=== PATIENT | male | born 1930 | race Hispanic/Latino ===

== ENCOUNTER → 2017-09-05 12:31 | Inpatient (IN) | payer MEDICARE ==
[2015-07-10 14:36] LABS: BASO # 0.1 K/uL (0.0-0.2); BASO % 1.3 % (0.0-2.0); EOS # 0.5 K/uL (0.0-0.7); EOS % 6.9 % (0.0-4.0); HEMOGLOBIN 12.9 g/dL (12.0-18.0); LYMPH # 1.3 K/uL (1.0-4.3); LYMPH % 19.1 % (20.0-40.0); MEAN CELL VOLUME 93.6 fl (80.0-94.0); MEAN CORPUSCULAR HEMOGLOBIN 30.3 pg (27.0-31.0); MEAN CORPUSCULAR HGB CONC 32.4 g/dL (33.0-37.0); MONO # 0.5 K/uL (0.0-0.8); MONO % 7.1 % (0.0-10.0); NEUT # 4.4 K/uL (1.8-7.0); NEUT % 65.6 % (50.0-75.0); RBC 4.24 Mil/uL (4.40-5.90); RED CELL DISTRIBUTION WIDTH 13.2 % (11.5-14.5); WHITE BLOOD COUNT 6.7 K/uL (4.8-10.8)
[2015-07-10 14:46] LABS: ALB/GLOB RATIO 1.5 (1.0-2.1); ALT/SGPT 11 U/L (21-72); AST/SGOT 24 U/L (17-59); BLOOD UREA NITROGEN 39 mg/dl (9-20); CALCIUM 9.2 mg/dL (8.4-10.2); GFR AFRICAN-AMERICAN > 60; GFR NON-AFRICAN AMERICAN > 60
--- NOTE | 2015-07-10 15:08 | CT ---
PROCEDURE: CT Pelvis without contrast HISTORY: Fall, pelvic pain COMPARISON: Imaged pelvis on CT abdomen and pelvis performed 08/17/14 TECHNIQUE: Contiguous axial images of the pelvis . No intravenous or oral contrast given. Coronal and sagittal reformats generated. Radiation dose: Total exam DLP = 631.26 mGy-cm. FINDINGS: BLADDER: Underdistention of the urinary bladder limits evaluation. Suspect right superior urinary bladder diverticulum. REPRODUCTIVE ORGANS: Enlarged heterogeneous prostate gland contains calcification and measures up to 6.0 x 5.3 cm. VISUALIZED BOWEL: Lack of oral contrast limits evaluation for bowel pathology. Diverticulosis without CT evidence of acute diverticulitis. PERITONEUM: No definite free air. No significant free fluid. LYMPH NODES: No bulky lymphadenopathy appreciated. BONES: No acute displaced fracture or dislocation. Degenerative changes. VASCULATURE: Atherosclerotic calcifications of the aorta. OTHER FINDINGS: Bilateral fat containing inguinal hernias. IMPRESSION: Osseous demineralization. Degenerative changes. No acute displaced fracture or dislocation evident. Bilateral fat containing inguinal hernias. Heterogeneous enlarged prostate gland. Recommend correlation with PSA and KATIE. Suspect right superior urinary bladder diverticulum. Underdistention of the urinary bladder limits evaluation.
--- NOTE | 2015-07-10 15:43 | CT ---
PROCEDURE: CT HEAD WITHOUT CONTRAST. HISTORY: r/o ICH COMPARISON: Noncontrast head CT performed 01/14/15 TECHNIQUE: Axial computed tomography images were obtained through the head/brain without intravenous contrast. Radiation dose: Total exam DLP = 1158.58 mGy-cm. FINDINGS: HEMORRHAGE: No intracranial hemorrhage. BRAIN: Diffuse atrophy with prominence of the ventricles and sulci noted. No mass effect or edema. Scattered periventricular and subcortical white matter hypodensities, which are nonspecific, but often seen with chronic microvascular ischemic disease. Please note that MRI with diffusion imaging is more sensitive in the detection of acute ischemic event. VENTRICLES: No hydrocephalus. CALVARIUM: Unremarkable. PARANASAL SINUSES: Unremarkable as visualized. No significant inflammatory changes. MASTOID AIR CELLS: Unremarkable as visualized. No inflammatory changes. OTHER FINDINGS: None. IMPRESSION: Mild nonspecific white matter changes as above. Generalized atrophy.
--- NOTE | 2015-07-10 15:48 | CT ---
PROCEDURE: CT Cervical Spine without contrast HISTORY: Trauma, rule out fracture COMPARISON: CT cervical spine performed 08/17/14 TECHNIQUE: Axial computed tomography images were obtained of the cervical spine without the use of intravenous contrast. Coronal and sagittal reformatted images were created and reviewed. Radiation dose: Total exam DLP = 464.40 mGy-cm. FINDINGS: VERTEBRAE: Osseous demineralization limits evaluation for acute fracture lines. Straightening of the normal cervical lordosis may be related to muscle spasm or positioning. No acute fracture or subluxation evident. Multilevel degenerative changes including intervertebral disc space narrowing and osteophyte formation. Facet hypertrophy. DISCS/SPINAL CANAL/NEURAL FORAMINA: No significant central canal stenosis. Intervertebral disc space narrowing. PARASPINAL SOFT TISSUES: Unremarkable. OTHER FINDINGS: None. IMPRESSION: Osseous demineralization. Multilevel degenerative changes. No acute fracture or subluxation appreciated. Straightening of the normal cervical lordosis may be related to muscle spasm or positioning.
--- NOTE | 2015-07-10 16:10 | ED PDOC ---
HPI: Trauma/Fall - HPI Time Seen by Provider: 07/10/15 14:02 Chief Complaint (Nursing): Trauma Chief Complaint (Provider): Fall History Per: Patient History/Exam Limitations: no limitations, physical impairment (confusion) Onset/Duration Of Symptoms: Hrs Injury Occurred (Timing): Days Ago: (1) Location Of Injury: Right: Back, Hip, Shoulder Severity: Mild Associated Symptoms: Dizziness Additional Complaint(s): Patient is a 85 year old male with a history of now advancing Parkinson disease , reports that he fallen yesterday after an episode of dizziness. Patient denies LOC but states he had a hard time getting up and was on the floor for 2 hours. Today had right sided pain including shoulder, hip and lower back. Denies chest pain, fever, cough, SOB, or other injury. D/w family Syl, has frequent falls, found on floor this as well, has some home-care but not 24hrs, alone during night. - Fall Fall:Prior To Injury: Almost Passed Out, [place] Lightheaded, Lost Balance Past Medical History Reviewed: Historical Data, Nursing Documentation, Vital Signs Vital Signs: Last Vital Signs Temp Pulse 96 H 07/10/15 13:43 Resp 16 07/10/15 13:43 BP 172/91 H 07/10/15 13:43 Pulse Ox 97 07/10/15 13:43 - Medical History PMH: Anxiety, Arthritis, Atrial Fibrillation, Depression, HTN, Parkinson's Disease, Rheumatoid Arthritis - Surgical History Surgical History: Appendectomy, Tonsillectomy Denies: CABG, Carotid Endarterectomy, Cholecystectomy, Coronary Stent, Pacemaker - Family History Family History: States: No Known Family Hx - Living Arrangements Living Arrangements: Alone - Home Medications Home Medications: Ambulatory Orders Medication Instructions Recorded Donepezil Hydrochloride [Aricept] 10 mg PO HS #0 tab 01/27/15 Gabapentin [Neurontin] 600 mg PO TID #0 tab 01/27/15 Midodrine [Proamatine] 5 mg PO TID #0 tab 05/25/15 Carbidopa/Levodopa [Rytary 48.75 3 cap PO TID 07/10/15 mg-195 mg] QUEtiapine [SEROquel] 50 mg PO HS PRN 07/10/15 - Allergies Allergies/Adverse Reactions: Allergies Allergy/AdvReac Type Severity Reaction Status Date / Time Penicillin Allergy HIVES Verified 07/10/15 13:43 Review of Systems ROS Statement: Except As Marked, All Systems Reviewed And Found Negative Constitutional: Negative for: Fever Cardiovascular: Negative for: Chest Pain Respiratory: Negative for: Cough, Shortness of Breath Musculoskeletal: Positive for: Shoulder Pain, Back Pain, Other (hip pain) Neurological: Negative for: Weakness, Numbness, Altered Mental Status Physical Exam - Reviewed Nursing Documentation Reviewed: Yes Vital Signs Reviewed: Yes - Physical Exam Appears: Positive for: Well, Non-toxic (baseline mental status), No Acute Distress Head Exam: Positive for: ATRAUMATIC, NORMAL INSPECTION, NORMOCEPHALIC Skin: Positive for: Normal Color, Warm, DRY Eye Exam: Positive for: EOMI, Normal appearance, PERRL ENT: Positive for: Normal ENT Inspection Neck: Positive for: Normal, Painless ROM Cardiovascular/Chest: Positive for: Regular Rate, Rhythm Respiratory: Positive for: CNT, Normal Breath Sounds Gastrointestinal/Abdominal: Positive for: Normal Exam, Bowel Sounds, Soft Back: Positive for: Normal Inspection, Other (mild lower back tenderness (-) deformity) Rectal: Positive for: Deferred Extremity: Positive for: Normal ROM, Tenderness (right shoudler (+) painful ROM (-) swelling (-) deformity. Right hip (+)painful rom (-) swelling (-) deformity ), Other ((+) small abrasion to right knww with mild ene but full ROM) Neurologic/Psych: Positive for: Alert, Oriented, Motor/Sensory Deficits ( generalized but R>L weakness and slowing\), Cerebellar Tests (slow, parkinsonian ), Gait (unstable), Other (parkinsonian features with bradykinesia, rigidity, unable to ambulate with stability, resting tremor) - Laboratory Results Result Diagrams: 07/10/15 14:26 07/10/15 14:26 - ECG O2 Sat by Pulse Oximetry: 97 (room air) Pulse Ox Interpretation: Normal - Progress ED Course And Treament: Time:14:00 Initial impression: Fall Initial plan: -- CT-neck, head and pelvis -- EKG -- CMP -- Troponin -- Total creatine -- EKG -- CBC -- Knee 3 views -- Motrin 600mg PO -- Tylenol 650mg PO -- Shoulder xray -- U/A 14:50: Patient reports continued pain. Plan: -- Tylenol 650mg PO Labs reviewed: CPK noted to be elevated but no clinic significance at this time. Time: 15:45 CT- head reviewed: Field Marketing Team Leader : Litzy Horowitz MD Report Date : 07/10/2015 15:42:33 PROCEDURE: CT HEAD WITHOUT CONTRAST. HISTORY: r/o ICH COMPARISON: Noncontrast head CT performed 01/14/15 TECHNIQUE: Axial computed tomography images were obtained through the head/brain without intravenous contrast. Radiation dose: Total exam DLP = 1158.58 mGy-cm. FINDINGS: HEMORRHAGE: No intracranial hemorrhage. BRAIN: Diffuse atrophy with prominence of the ventricles and sulci noted. No mass effect or edema. Scattered periventricular and subcortical white matter hypodensities, which are nonspecific, but often seen with chronic microvascular ischemic disease. Please note that MRI with diffusion imaging is more sensitive in the detection of acute ischemic event. VENTRICLES: No hydrocephalus. CALVARIUM: Unremarkable. PARANASAL SINUSES: Unremarkable as visualized. No significant inflammatory changes. MASTOID AIR CELLS: Unremarkable as visualized. No inflammatory changes. OTHER FINDINGS: None. IMPRESSION: Mild nonspecific white matter changes as above. Generalized atrophy. Time: 15:50 CT-neck results reviewed: Dictated by: Litzy Horowitz MD Report Date : 07/10/2015 15:48:40 PROCEDURE: CT Cervical Spine without contrast HISTORY: Trauma, rule out fracture COMPARISON: CT cervical spine performed 08/17/14 TECHNIQUE: Axial computed tomography images were obtained of the cervical spine without the use of intravenous contrast. Coronal and sagittal reformatted images were created and reviewed. Radiation dose: Total exam DLP = 464.40 mGy-cm. FINDINGS: VERTEBRAE: Osseous demineralization limits evaluation for acute fracture lines. Straightening of the normal cervical lordosis may be related to muscle spasm or positioning. No acute fracture or subluxation evident. Multilevel degenerative changes including intervertebral disc space narrowing and osteophyte formation. Facet hypertrophy. DISCS/SPINAL CANAL/NEURAL FORAMINA: No significant central canal stenosis. Intervertebral disc space narrowing. PARASPINAL SOFT TISSUES: Unremarkable. OTHER FINDINGS: None. IMPRESSION: Osseous demineralization. Multilevel degenerative changes. No acute fracture or subluxation appreciated. Straightening of the normal cervical lordosis may be related to muscle spasm or positioning. Time: 15:10 CT-hip and pelvis reviewed: Dictated by: Litzy Horowitz MD Report Date : 07/10/2015 15:07:45 PROCEDURE: CT Pelvis without contrast HISTORY: Fall, pelvic pain COMPARISON: Imaged pelvis on CT abdomen and pelvis performed 08/17/14 TECHNIQUE: Contiguous axial images of the pelvis . No intravenous or oral contrast given. Coronal and sagittal reformats generated. Radiation dose: Total exam DLP = 631.26 mGy-cm. FINDINGS: BLADDER: Underdistention of the urinary bladder limits evaluation. Suspect right superior urinary bladder diverticulum. REPRODUCTIVE ORGANS: Enlarged heterogeneous prostate gland contains calcification and measures up to 6.0 x 5.3 cm. VISUALIZED BOWEL: Lack of oral contrast limits evaluation for bowel pathology. Diverticulosis without CT evidence of acute diverticulitis. PERITONEUM: No definite free air. No significant free fluid. LYMPH NODES: No bulky lymphadenopathy appreciated. BONES: No acute displaced fracture or dislocation. Degenerative changes. VASCULATURE: Atherosclerotic calcifications of the aorta. OTHER FINDINGS: Bilateral fat containing inguinal hernias. IMPRESSION: Osseous demineralization. Degenerative changes. No acute displaced fracture or dislocation evident. Bilateral fat containing inguinal hernias. Heterogeneous enlarged prostate gland. Recommend correlation with PSA and KATIE. Suspect right superior urinary bladder diverticulum. Underdistention of the urinary bladder limits evaluation. Scribe Attestation: Documented by Jyotsna Monteiro, acting as a scribe for Anthony Brooks DO. Provider Scribe Attestation: All medical record entries made by the Scribe were at my direction and personally dictated by me. I have reviewed the chart and agree that the record accurately reflects my personal performance of the history, physical exam, medical decision making, and the department course for this patient. I have also personally directed, reviewed, and agree with the discharge instructions and disposition. Medical Decision Making Medical Decision Making: Patient with advancing parkinsons features, unable to live alone, d/w Dr Vega neuro covering Dr Rosas and Dr Fernández PMD, to place Obs med surg for optimization and potential NH placement if family agreeable. Patient is mildly confused with poor insight, unable to ambulate with very high risk for falls given lack of 24hr care. Disposition - Clinical Impression Clinical Impression: Shoulder sprain, Fall, Knee abrasion, Contusion, hip, Parkinson disease, symptomatic, Back pain - Patient ED Disposition Is Patient to be Admitted: Yes Discussed With : Kevin Vega Comment: Dr Rosas to consult Doctor Will See Patient In The: Hospital Counseled Patient/Family Regarding: Studies Performed, Diagnosis - Disposition Disposition Time: 17:05 Condition: STABLE - POA Present On Arrival: Falls Or Trauma 24hr care. Disposition - Clinical Impression Clinical Impression: Shoulder sprain, Fall, Knee abrasion, Contusion, hip, Parkinson disease, symptomatic, Back pain - Patient ED Disposition Is Patient to be Admitted: Yes Discussed With : Kevin Vega Comment: Dr Rosas to consult Doctor Will See Patient In The: Hospital Counseled Patient/Family Regarding: Studies Performed, Diagnosis - Disposition Referrals: Rick Cornejo MD [Staff Provider] - Disposition Time: 17:05 Condition: STABLE Additional Instructions: See Dr Fernández for further testing and continued care. Return to ER for any new or change in symptoms. Take pain medications as necessary. Prescriptions: traMADol [Ultram] 50 mg PO TID PRN #12 tab PRN Reason: Pain, Moderate (4-7) Instructions: Fall Prevention for Older Adults (ED), Acute Low Back Pain (ED), Contusion in Adults (ED), Shoulder Sprain (ED) - POA Present On Arrival: Falls Or Trauma
--- NOTE | 2015-07-10 16:36 | RAD ---
Three views, right shoulder Comparison: Right shoulder x-ray performed 05/22/15 Indication: Fall onto right shoulder Findings: Examination limited by patient positioning; best possible images obtained. Osseous demineralization limits evaluation for acute fracture lines. No acute displaced fracture or dislocation evident. Degenerative changes. High-riding right humeral head may be seen in setting of chronic rotator cuff injury. Acromioclavicular arthropathy. Soft tissues appear grossly unremarkable. Impression: Osseous demineralization. Degenerative changes including evidence of chronic rotator cuff injury. No acute displaced fracture or dislocation evident. If symptoms persist or if there is continued clinical concern, x-ray follow-up in 7-10 days should be considered.
[2015-07-10 16:39] LABS: URINE APPEARANCE SL CLOUDY (CLEAR); URINE COLOR YELLOW (YELLOW)
[2015-07-10 16:40] LABS: URINE BILIRUBIN NEGATIVE (NEGATIVE); URINE BLOOD NEGATIVE (NEGATIVE); URINE GLUCOSE (UA) NEGATIVE (Normal); URINE LEUKOCYTE ESTERASE NEGATIVE Leu/uL (NEGATIVE); URINE NITRATE NEGATIVE (NEGATIVE); URINE PROTEIN 30 mg/dL (NEGATIVE); URINE UROBILINOGEN 0.2 EU/dL (0.0-0.2)
[2015-07-10 16:55] LABS: URINE BACTERIA FEW (NEG); URINE RBC NEGATIVE /hpf (0-2)
--- NOTE | 2015-07-10 19:19 | RAD ---
PROCEDURE: Right Knee Radiographs. HISTORY: fall R knee pain COMPARISON: X-ray 11/15/2014 FINDINGS: There is a large suprapatellar joint effusion. The quadriceps tendon distally is not well-visualized and may be severely abnormal. There is diffuse edema around the patient's knee prosthesis. There is no patella [place]. Multiple calcifications are seen in the infrapatellar and suprapatellar joint space which are concerning for particle disease. There is extensive productive change at the insertion of the patellar tendon. The patient's hardware appears intact however there is valgus orientation of the tibial component with lucency seen around the cemented tibial portion. These findings may represent a combination of loosening and particle disease. There is no definitive fracture. IMPRESSION: No large displaced fracture. 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
--- NOTE | 2015-07-11 09:28 | CARD ---
APPROVED REPORT EKG Measurement Heart [id number] <Conclusion> Sinus rhythm with marked sinus arrhythmia with fusion complexes Right atrial enlargement Left ventricular hypertrophy with QRS widening Abnormal ECG
--- NOTE | 2015-07-11 10:46 | CP.PCM.CON ---
History of Present Illness - History of Present Illness History of Present Illness: Patient is an 85 year old gentleman presently admitted with Dx of Parkinson's Disease with fall and back injury. Neurological consultation is requested to evaluate patient for the same. Patient is very well-known to me with history of atypical Parkinson's Disease (Shy-Drager Syndrome). Yesterday, he apparently fell after feeling dizzy and was unable to get up from the floor. Recently, he has been on steadily increasing doses of Rytary which so far has been effective in helping with ambulation and reducing motor fluctuations and freezing events. Because of the Shy Drager syndrome, he does become significantly orthostatic resulting in lightheadedness, near syncope, and falls. Midodrine is being used for this symptom. Past Patient History - Tetanus Immunizations Tetanus Immunization: Unknown - Past Medical History & Family History Past Medical History?: Yes - Past Social History Smoking Status: Never Smoked - CARDIAC Hx Atrial Fibrillation: Yes Hx Hypertension: Yes Hx Pacemaker: No - PULMONARY Hx Asthma: No Hx Bronchitis: No Hx Chronic Obstructive Pulmonary Disease (COPD): No Hx Emphysema: No Hx Pneumonia: No Hx Pulmonary Embolism: No Hx Sleep Apnea: No - NEUROLOGICAL Hx Parkinson's Disease: Yes - HEENT Hx HEENT Problems: Yes Hx Cataracts: No Hx Deafness: No Hx Difficulty Chewing: No Hx Epistaxis: No Hx Glaucoma: Yes Hx Macular Degeneration: No - RENAL Hx Chronic Kidney Disease: No - ENDOCRINE/METABOLIC Hx Hyperthyroidism: No Hx Hypothyroidism: No - HEMATOLOGICAL/ONCOLOGICAL Hx Anemia: No Hx Human Immunodeficiency Virus (HIV): No Hx Sickle Cell Disease: No - INTEGUMENTARY Hx Dermatological Problems: No Hx Basil Cell: No Hx Silva: No Hx Cellulitis: Yes (right leg) Hx Eczema: No Hx Melanoma: No Hx Psoriasis: No Hx Squamous Cell: No - MUSCULOSKELETAL/RHEUMATOLOGICAL Hx Arthritis: Yes Hx Falls: Yes Hx Rheumatoid Arthritis: Yes - GASTROINTESTINAL Hx Crohn's Disease: No Hx Diverticulitis: No Hx Gall Bladder Disease: No Hx Gastritis: No Hx Pancreatitis: No - GENITOURINARY/GYNECOLOGICAL Hx Sexually Transmitted Disorders: No - PSYCHIATRIC Hx Anxiety: Yes Hx Depression: Yes Hx Substance Use: No - SURGICAL HISTORY Hx Appendectomy: Yes Hx Carotid Endarterectomy: No Hx Cholecystectomy: No Hx Coronary Artery Bypass Graft: No Hx Coronary Stent: No Hx Tonsillectomy: Yes - ANESTHESIA Hx Anesthesia: Yes Hx Anesthesia Reactions: No Hx Malignant Hyperthermia: No Meds Allergies/Adverse Reactions: Allergies Allergy/AdvReac Type Severity Reaction Status Date / Time Penicillin Allergy HIVES Verified 07/10/15 13:43 - Medications Medications: Current Medications Donepezil HCl (Aricept) 10 mg PO HS [facility] Last Admin: 07/11/15 02:00 Dose: 10 mg Enoxaparin Sodium (Lovenox) 40 mg SC DAILY [facility] Gabapentin (Neurontin) 600 mg PO TID [facility] Home Med (Carbidopa/Levodopa [Rytary 48.75 Mg-195 Mg]) 3 cap PO TID [facility] Sodium Chloride (Sodium Chloride 0.45%) 1,000 mls @ 50 mls/hr IV .Q20H TU Stop: 07/12/15 10:13 Midodrine (Proamatine) 5 mg PO TID TU Quetiapine Fumarate (Seroquel) 50 mg PO HS PRN PRN Reason: Insomnia Tramadol HCl (Ultram) 50 mg PO Q6 PRN PRN Reason: Pain, moderate (4-7) Last Admin: 07/11/15 05:57 Dose: 50 mg Physical Exam - Expanded Neurological Exam Expanded Patient oriented to: person, place, time Speech: Fluid Speech Cranial nerves: EOM's Intact: Normal, Facial Palsey w/Forehead Movement: Normal , Facial Palsey w/o Forehead Movement: Normal, Facial Sensation: Normal, Gag Reflex: Normal, Nystagmus: Normal, Tongue Deviation: Normal Ataxia: (bradykinetic gait) Cerebellar Function: Finger to Nose: Normal, Heel to Dias: Normal, Romberg: Normal Upper motor neuron: Babinski Sign: Normal, [place] Neglect: Normal, Pronator Drift : Normal, Sensory Extinction: Normal Sensory exam: Lower Extremity 2 Point Discrimination: Normal, Lower Extremity Light Touch: Normal, Lower Extremity Pin Prick: Normal, Lower Extremity Temperature: Normal, Upper Extremity 2 Point Discrimination: Normal, Upper Extremity Light Touch: Normal, Upper Extremity Pin Prick: Normal, Upper Extremity Temperature: Normal Neuro motor strength exam: Left Upper Extremity: 4, Right Upper Extremity: 4, Left Lower Extremity: 4, Right Lower Extremity: 4 DTR: Achilles Tendon Left: 2+, Achilles Tendon Right: 2+, Bicep Left: 2+, Bicep Right: 2+, Brachioradialis Left: 2+, Brachioradialis Right: 2+, Patellar Left: 2 +, Patellar Right: 2+, Tricep Left: 2+, Tricep Right: 2+ Coma Scale Eye Opening: SPONTANEOUS Coma Scale Motor Response: OBEYS COMMANDS Coma Scale Verbal: Oriented Coma Scale Total: 15 Results - Vital Signs Recent Vital Signs: Last Vital Signs Temp 98.1 F 07/11/15 07:30 Pulse 101 H 07/11/15 07:30 Resp 20 07/11/15 07:30 BP 133/84 07/11/15 07:30 Pulse Ox 98 07/11/15 07:30 - Labs Result Diagrams: 07/10/15 14:26 07/10/15 14:26 - Impressions Impression: PROCEDURE: CT HEAD WITHOUT CONTRAST. HISTORY: r/o ICH COMPARISON: Noncontrast head CT performed 01/14/15 TECHNIQUE: Axial computed tomography images were obtained through the head/brain without intravenous contrast. Radiation dose: Total exam DLP = 1158.58 mGy-cm. FINDINGS: HEMORRHAGE: No intracranial hemorrhage. BRAIN: Diffuse atrophy with prominence of the ventricles and sulci noted. No mass effect or edema. Scattered periventricular and subcortical white matter hypodensities, which are nonspecific, but often seen with chronic microvascular ischemic disease. Please note that MRI with diffusion imaging is more sensitive in the detection of acute ischemic event. VENTRICLES: No hydrocephalus. CALVARIUM: Unremarkable. PARANASAL SINUSES: Unremarkable as visualized. No significant inflammatory changes. MASTOID AIR CELLS: Unremarkable as visualized. No inflammatory changes. OTHER FINDINGS: None. IMPRESSION: Mild nonspecific white matter changes as above. Generalized atrophy. Assessment/Plan - Assessment and Plan (Free Text) Assessment: 1. Atypical Parkinson's Disease (Shy-Drager Syndrome) 2. Orthostatic hypotension. 3. Gait dysfunction. Plan: 1. Patient is neurologically stable. Dizziness and subsequent fall is likely related to orthostatic hypotension. For now he should remain on his present dose of Rytary. Since medication is non-formulary in the hospital, family may obtain samples from my office. He should follow-up with me upon discharge to adjust dose if needed. 2. He should remain on midodrine for the orthostatic hypotension.
[2015-07-11] MEDS: Enoxaparin 40 mg Syringe SC SCH (11:00)
[2015-07-11] MEDS: LEVODOPA PO SCH ×3 (14:03→17:45)
[2015-07-11] MEDS: CARBIDOPA PO SCH ×3 (14:03→17:45)
[2015-07-11] MEDS: Sodium Chloride 0.45% 1,000 ML IV SCH (17:47)
--- NOTE | 2015-07-11 18:50 | CP.PCM.HP ---
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 Recently started on new medication Pt also has Shy Drager Syndrome with orthostatic hypotension Present on Admission - Present on Admission Any Indicators Present on Admission: No Past Patient History - Tetanus Immunizations Tetanus Immunization: Unknown - Past Medical History & Family History Past Medical History?: Yes - Past Social History Smoking Status: Never Smoked - CARDIAC Hx Cardiac Disorders: No Hx Congestive Heart Failure: No Hx Hypercholesterolemia: No Hx Hypertension: No - PULMONARY Hx Chronic Obstructive Pulmonary Disease (COPD): No - NEUROLOGICAL HX Cerebrovascular Accident: No - HEENT Hx HEENT Problems: Yes Hx Cataracts: No Hx Deafness: No Hx Difficulty Chewing: No Hx Epistaxis: No Hx Glaucoma: Yes Hx Macular Degeneration: No - RENAL Hx Renal Failure: No - ENDOCRINE/METABOLIC Hx Diabetes Mellitus Type 1: No Hx Diabetes Mellitus Type 2: No Hx Hypothyroidism: No - HEMATOLOGICAL/ONCOLOGICAL Hx Anemia: No Hx Human Immunodeficiency Virus (HIV): No Hx Sickle Cell Disease: No - INTEGUMENTARY Hx Dermatological Problems: No Hx Basil Cell: No Hx Silva: No Hx Cellulitis: Yes (right leg) Hx Eczema: No Hx Melanoma: No Hx Psoriasis: No Hx Squamous Cell: No - MUSCULOSKELETAL/RHEUMATOLOGICAL Hx Arthritis: No Hx Rheumatoid Arthritis: No - GASTROINTESTINAL Hx Crohn's Disease: No Hx Diverticulitis: No Hx Gall Bladder Disease: No Hx Gastritis: No Hx Pancreatitis: No - GENITOURINARY/GYNECOLOGICAL Hx Sexually Transmitted Disorders: No - PSYCHIATRIC Hx Anxiety: Yes Hx Depression: Yes - SURGICAL HISTORY Hx Appendectomy: Yes Hx Carotid Endarterectomy: No Hx Cholecystectomy: No Hx Coronary Artery Bypass Graft: No Hx Coronary Stent: No Hx Tonsillectomy: Yes - ANESTHESIA Hx Anesthesia: Yes Hx Anesthesia Reactions: No Hx Malignant Hyperthermia: No Meds Allergies/Adverse Reactions: Allergies Allergy/AdvReac Type Severity Reaction Status Date / Time Penicillin Allergy HIVES Verified 07/10/15 13:43 Physical Exam - Respiratory Exam Respiratory Exam: NORMAL BREATHING PATTERN - Cardiovascular Exam Cardiovascular Exam: REGULAR RHYTHM - GI/Abdominal Exam GI & Abdominal Exam: Normal Bowel Sounds Results - Vital Signs Recent Vital Signs: Last Vital Signs Temp 98.2 F 07/11/15 16:14 Pulse 87 07/11/15 16:14 Resp 20 07/11/15 16:14 BP 159/95 H 07/11/15 16:14 Pulse Ox 98 07/11/15 16:14 - Labs Result Diagrams: 07/10/15 14:26 07/10/15 14:26 Assessment/Plan - Assessment and Plan (Free Text) Assessment: 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
--- NOTE | 2015-07-11 20:00 | CP.PCM.PN ---
Subjective - Subjective Subjective: c/o leg pain Objective - Vital Signs/Intake and Output Vital Signs (last 24 hours): Vital Signs - 24 hr 07/11/15 07/11/15 14:45 16:14 Temperature 98.2 F Pulse Rate 87 Respiratory 20 Rate Blood Pressure 159/95 H O2 Sat by Pulse 97 98 Oximetry - Medications Medications: Current Medications Donepezil HCl (Aricept) 10 mg PO HS [facility] Last Admin: 07/11/15 02:00 Dose: 10 mg Enoxaparin Sodium (Lovenox) 40 mg SC DAILY [facility] Last Admin: 07/11/15 11:00 Dose: 40 mg Gabapentin (Neurontin) 600 mg PO TID [facility] Last Admin: 07/11/15 17:24 Dose: 600 mg Home Med (Carbidopa/Levodopa [Rytary 48.75 Mg-195 Mg]) 3 cap PO TID [facility] Last Admin: 07/11/15 17:45 Dose: Not Given Sodium Chloride (Sodium Chloride 0.45%) 1,000 mls @ 50 mls/hr IV .Q20H [facility] Stop: 07/12/15 10:13 Last Admin: 07/11/15 17:47 Dose: Not Given Midodrine (Proamatine) 5 mg PO TID [facility] Last Admin: 07/11/15 17:47 Dose: 5 mg Quetiapine Fumarate (Seroquel) 50 mg PO HS PRN PRN Reason: Insomnia Tramadol HCl (Ultram) 50 mg PO Q6 PRN PRN Reason: Pain, moderate (4-7) Last Admin: 07/11/15 05:57 Dose: 50 mg - Respiratory Exam Respiratory Exam: NORMAL BREATHING PATTERN - Cardiovascular Exam Cardiovascular Exam: REGULAR RHYTHM - GI/Abdominal Exam GI & Abdominal Exam: Normal Bowel Sounds Assessment/Plan - Assessment and Plan (Free Text) Assessment: 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
[2015-07-12] MEDS: Sodium Chloride 0.45% 1,000 ML IV SCH (06:47)
[2015-07-12 08:42] LABS: HEMOGLOBIN 12.2 g/dL (12.0-18.0); MEAN CELL VOLUME 94.9 fl (80.0-94.0); MEAN CORPUSCULAR HEMOGLOBIN 30.3 pg (27.0-31.0); MEAN CORPUSCULAR HGB CONC 31.9 g/dL (33.0-37.0); RBC 4.03 Mil/uL (4.40-5.90); RED CELL DISTRIBUTION WIDTH 13.4 % (11.5-14.5); WHITE BLOOD COUNT 6.6 K/uL (4.8-10.8)
[2015-07-12 09:08] LABS: BLOOD UREA NITROGEN 28 mg/dl (9-20); GFR AFRICAN-AMERICAN > 60; GFR NON-AFRICAN AMERICAN > 60
[2015-07-12] MEDS: CARBIDOPA PO SCH ×3 (09:09→17:01)
[2015-07-12] MEDS: LEVODOPA PO SCH ×3 (09:09→17:01)
[2015-07-12] MEDS: Enoxaparin 40 mg Syringe SC SCH (09:11)
[2015-07-13] MEDS: LEVODOPA PO SCH ×3 (09:13→17:21)
[2015-07-13] MEDS: CARBIDOPA PO SCH ×3 (09:13→17:21)
[2015-07-13] MEDS: Enoxaparin 40 mg Syringe SC SCH (09:13)
--- NOTE | 2015-07-13 18:19 | CP.PCM.PN ---
Subjective - Subjective Subjective: Pt seen on 07/12/15 No change in status Long d/w ss today regarding skilled nursing plans Objective - Vital Signs/Intake and Output Vital Signs (last 24 hours): Vital Signs - 24 hr 07/13/15 07/13/15 07/13/15 01:04 07:34 16:17 Temperature 98.4 F 97.7 F 97.5 F L Pulse Rate 88 77 57 L Respiratory 20 20 20 Rate Blood Pressure 126/66 140/87 103/56 L O2 Sat by Pulse 99 97 99 Oximetry - Medications Medications: Current Medications Donepezil HCl (Aricept) 10 mg PO HS [facility] Last Admin: 07/12/15 21:23 Dose: 10 mg Enoxaparin Sodium (Lovenox) 40 mg SC DAILY [facility] Last Admin: 07/13/15 09:13 Dose: 40 mg Gabapentin (Neurontin) 600 mg PO TID [facility] Last Admin: 07/13/15 17:21 Dose: 600 mg Home Med (Carbidopa/Levodopa [Rytary 48.75 Mg-195 Mg]) 3 cap PO TID [facility] Last Admin: 07/13/15 17:21 Dose: 3 cap Midodrine (Proamatine) 5 mg PO TID [facility] Last Admin: 07/13/15 17:21 Dose: 5 mg Quetiapine Fumarate (Seroquel) 50 mg PO HS PRN PRN Reason: Insomnia Last Admin: 07/13/15 00:59 Dose: 50 mg Tramadol HCl (Ultram) 50 mg PO Q6 PRN PRN Reason: Pain, moderate (4-7) Last Admin: 07/12/15 05:35 Dose: 50 mg - Respiratory Exam Respiratory Exam: NORMAL BREATHING PATTERN - Cardiovascular Exam Cardiovascular Exam: REGULAR RHYTHM - GI/Abdominal Exam GI & Abdominal Exam: Normal Bowel Sounds Assessment/Plan - Assessment and Plan (Free Text) Assessment: 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
--- NOTE | 2015-07-13 20:06 | CP.PCM.PN ---
Subjective - Subjective Subjective: No change in staus Objective - Vital Signs/Intake and Output Vital Signs (last 24 hours): Vital Signs - 24 hr 07/13/15 07/13/15 07/13/15 01:04 07:34 16:17 Temperature 98.4 F 97.7 F 97.5 F L Pulse Rate 88 77 57 L Respiratory 20 20 20 Rate Blood Pressure 126/66 140/87 103/56 L O2 Sat by Pulse 99 97 99 Oximetry - Medications Medications: Current Medications Donepezil HCl (Aricept) 10 mg PO HS [facility] Last Admin: 07/12/15 21:23 Dose: 10 mg Enoxaparin Sodium (Lovenox) 40 mg SC DAILY [facility] Last Admin: 07/13/15 09:13 Dose: 40 mg Gabapentin (Neurontin) 600 mg PO TID [facility] Last Admin: 07/13/15 17:21 Dose: 600 mg Home Med (Carbidopa/Levodopa [Rytary 48.75 Mg-195 Mg]) 3 cap PO TID [facility] Last Admin: 07/13/15 17:21 Dose: 3 cap Midodrine (Proamatine) 5 mg PO TID [facility] Last Admin: 07/13/15 17:21 Dose: 5 mg Quetiapine Fumarate (Seroquel) 50 mg PO HS PRN PRN Reason: Insomnia Last Admin: 07/13/15 00:59 Dose: 50 mg Tramadol HCl (Ultram) 50 mg PO Q6 PRN PRN Reason: Pain, moderate (4-7) Last Admin: 07/12/15 05:35 Dose: 50 mg - Respiratory Exam Respiratory Exam: NORMAL BREATHING PATTERN - Cardiovascular Exam Cardiovascular Exam: REGULAR RHYTHM - GI/Abdominal Exam GI & Abdominal Exam: Normal Bowel Sounds Assessment/Plan - Assessment and Plan (Free Text) Assessment: 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
[2015-07-14] MEDS: CARBIDOPA PO SCH ×3 (08:58→16:42)
[2015-07-14] MEDS: LEVODOPA PO SCH ×3 (08:58→16:42)
[2015-07-14] MEDS: Enoxaparin 40 mg Syringe SC SCH (08:59)
--- NOTE | 2015-07-14 14:53 | CP.PCM.PN ---
Subjective - Subjective Subjective: No fever speech slurred - chronic due to Parkison's complains of right shoulder pain, limited ROM denies CP, no SOB Review of Systems - Review of Systems All systems: reviewed and no additional remarkable complaints except - Constitutional Constitutional: absent: Fever - EENT Eyes: absent: Change in Vision - Cardiovascular Cardiovascular: absent: Chest Pain, Palpitations - Respiratory Respiratory: absent: Cough, Dyspnea, Dyspnea on Exertion - Gastrointestinal Gastrointestinal: absent: Abdominal Pain, Nausea, Vomiting - Genitourinary Genitourinary: absent: Dysuria, Urinary Frequency - Musculoskeletal Musculoskeletal: Arthralgias, Back Pain, Limited Range of Motion - Integumentary Integumentary: Lesions, Rash - Neurological Neurological: Frequent Falls, Tremor - Psychiatric Psychiatric: absent: Anxiety, Depression - Endocrine Endocrine: absent: Polydipsia, Polyphagia, Polyuria - Hematologic/Lymphatic Hematologic: absent: Easy Bleeding, Easy Bruising Objective - Vital Signs/Intake and Output Vital Signs (last 24 hours): Vital Signs - 24 hr 07/13/15 07/14/15 16:17 07:47 Temperature 97.5 F L 97.4 F L Pulse Rate 57 L 75 Respiratory 20 20 Rate Blood Pressure 103/56 L 143/76 O2 Sat by Pulse 99 95 Oximetry - Medications Medications: Current Medications Donepezil HCl (Aricept) 10 mg PO HS [facility] Last Admin: 07/13/15 22:39 Dose: 10 mg Enoxaparin Sodium (Lovenox) 40 mg SC DAILY [facility] Last Admin: 07/14/15 08:59 Dose: 40 mg Gabapentin (Neurontin) 600 mg PO TID [facility] Last Admin: 07/14/15 12:46 Dose: 600 mg Home Med (Carbidopa/Levodopa [Rytary 48.75 Mg-195 Mg]) 3 cap PO TID [facility] Last Admin: 07/14/15 12:46 Dose: 3 cap Midodrine (Proamatine) 5 mg PO TID [facility] Last Admin: 07/14/15 12:46 Dose: 5 mg Quetiapine Fumarate (Seroquel) 50 mg PO HS PRN PRN Reason: Insomnia Last Admin: 07/13/15 00:59 Dose: 50 mg Tramadol HCl (Ultram) 50 mg PO Q6 PRN PRN Reason: Pain, moderate (4-7) Last Admin: 07/12/15 05:35 Dose: 50 mg - Constitutional Appears: No Acute Distress - Head Exam Head Exam: NORMAL INSPECTION, NORMOCEPHALIC - Eye Exam Eye Exam: EOMI, Normal appearance Pupil Exam: NORMAL ACCOMODATION - ENT Exam ENT Exam: Mucous Membranes Moist, Normal External Ear Exam - Neck Exam Neck exam: Full Rom. absent: Meningismus - Respiratory Exam Respiratory Exam: NORMAL BREATHING PATTERN. absent: Respiratory Distress - Cardiovascular Exam Cardiovascular Exam: Irregular Rhythm, +S1, +S2 - GI/Abdominal Exam GI & Abdominal Exam: Normal Bowel Sounds, Soft. absent: Tenderness - Extremities Exam Extremities exam: normal capillary refill. absent: calf tenderness Additional comments: right shoulder tenderness, pain on ROM - Neurological Exam Neurological exam: Alert, Oriented x3 - Psychiatric Exam Psychiatric exam: Normal Affect, Normal Mood - Skin Skin Exam: Dry, Normal Color, Rash, Warm Assessment/Plan (1) Fall Current Visit: Yes Status: Acute Comment: Pt was brought in after fall hx of Parkinson's , poor balance PT,OT consult may lik;husam need to be placed in LTC since pt has hx of multiple falls (2) Parkinson disease Current Visit: Yes Status: Chronic Priority: Medium Comment: Progressive weakness - well known to Dr. Rosas, patient has progressive parkinsonism - Continue current management- Rytary as rec by Dr Rosas -continue PT/OT (3) Opacity of lung on imaging study Current Visit: No Status: Acute Comment: seen on CXR CT of chest- pt refused despite explanation of benefits/risk pt has no fever, no cough, no leukocytosis (4) Right shoulder pain Current Visit: Yes Status: Acute Comment: Pt continues to have right shoulder pain and limited ROM Shoulder x ray negative will do CT of the shoulder (5) DVT prophylaxis Current Visit: Yes Status: Acute Comment: - SQ lovenox- monitor platelet closely (low) (6) Thrombocytopenia Current Visit: Yes Status: Chronic Comment: -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
[2015-07-15 08:18] LABS: HEMOGLOBIN 12.4 g/dL (12.0-18.0); MEAN CELL VOLUME 94.3 fl (80.0-94.0); MEAN CORPUSCULAR HEMOGLOBIN 29.9 pg (27.0-31.0); MEAN CORPUSCULAR HGB CONC 31.8 g/dL (33.0-37.0); RBC 4.15 Mil/uL (4.40-5.90); RED CELL DISTRIBUTION WIDTH 13.3 % (11.5-14.5); WHITE BLOOD COUNT 4.9 K/uL (4.8-10.8)
[2015-07-15 08:29] LABS: BLOOD UREA NITROGEN 24 mg/dl (9-20); CALCIUM 9.1 mg/dL (8.4-10.2); GFR AFRICAN-AMERICAN > 60; GFR NON-AFRICAN AMERICAN > 60
[2015-07-15] MEDS: CARBIDOPA PO SCH ×3 (09:05→16:59)
[2015-07-15] MEDS: LEVODOPA PO SCH ×3 (09:05→16:59)
[2015-07-15] MEDS: Enoxaparin 40 mg Syringe SC SCH (09:05)
[2015-07-15] MEDS: Betamethasone Dip 0.05% Oint 45gm TOP SCH (09:06)
--- NOTE | 2015-07-15 11:49 | CP.PCM.PN ---
Subjective - Subjective Subjective: still with shoulder pain but better however still cannot do full ROM- refused to have further imaging of right shoulder and also to have CT of chest despite explanation of importance. Attemmpted to get in touch with his niece - Syl ( no answer) Denies CP staes he had loose stool this am Review of Systems - Review of Systems Systems not reviewed;Unavailable: Uncooperative All systems: reviewed and no additional remarkable complaints except - Constitutional Constitutional: Weakness. absent: Fever - EENT Eyes: absent: Change in Vision - Cardiovascular Cardiovascular: absent: Chest Pain - Respiratory Respiratory: absent: Cough, Dyspnea - Gastrointestinal Gastrointestinal: Loose Stools. absent: Abdominal Pain - Musculoskeletal Musculoskeletal: Abnormal Gait, Back Pain, Limited Range of Motion - Integumentary Integumentary: Rash - Neurological Neurological: Weakness - Endocrine Endocrine: absent: Polydipsia, Polyphagia, Polyuria - Hematologic/Lymphatic Hematologic: absent: Easy Bleeding, Easy Bruising Objective - Vital Signs/Intake and Output Vital Signs (last 24 hours): Vital Signs - 24 hr 07/14/15 07/15/15 07/15/15 16:10 06:00 07:11 Temperature 98.6 F 97.2 F L 97.3 F L Pulse Rate 89 73 73 Respiratory 20 19 20 Rate Blood Pressure 115/66 145/84 135/68 O2 Sat by Pulse 97 97 97 Oximetry - Medications Medications: Current Medications Betamethasone Dipropionate (Diprolene) 1 applic TOP DAILY [facility] Last Admin: 07/15/15 09:06 Dose: 1 applic Donepezil HCl (Aricept) 10 mg PO HS [facility] Last Admin: 07/14/15 23:00 Dose: 10 mg Enoxaparin Sodium (Lovenox) 40 mg SC DAILY [facility] Last Admin: 07/15/15 09:05 Dose: 40 mg Gabapentin (Neurontin) 600 mg PO TID [facility] Last Admin: 07/14/15 16:43 Dose: 600 mg Home Med (Carbidopa/Levodopa [Rytary 48.75 Mg-195 Mg]) 3 cap PO TID [facility] Last Admin: 07/15/15 09:05 Dose: 3 cap Midodrine (Proamatine) 5 mg PO TID [facility] Last Admin: 07/15/15 09:08 Dose: 5 mg Quetiapine Fumarate (Seroquel) 50 mg PO HS PRN PRN Reason: Insomnia Last Admin: 12/31/15 00:59 Dose: 50 mg Tramadol HCl (Ultram) 50 mg PO Q6 PRN PRN Reason: Pain, moderate (4-7) Last Admin: 07/15/15 07:46 Dose: 50 mg - Labs Labs (last 24 hours): Laboratory Results - last 24 hr 07/15/15 07:00 WBC 4.9 RBC 4.15 L Hgb 12.4 Hct 39.2 MCV 94.3 H MCH 29.9 MCHC 31.8 L RDW 13.3 Plt Count 91 L Sodium 138 Potassium 4.2 Chloride 105 Carbon Dioxide 25 Anion Gap 13 BUN 24 H Creatinine 0.7 L Est GFR ( Amer) > 60 Est GFR (Non-Af Amer) > 60 Random Glucose 81 Calcium 9.1 - Constitutional Appears: No Acute Distress - Head Exam Head Exam: NORMAL INSPECTION, NORMOCEPHALIC - Eye Exam Eye Exam: EOMI, Normal appearance Pupil Exam: NORMAL ACCOMODATION - ENT Exam ENT Exam: Mucous Membranes Moist, Normal External Ear Exam - Neck Exam Neck exam: Full Rom. absent: Meningismus - Respiratory Exam Respiratory Exam: NORMAL BREATHING PATTERN. absent: Rales, Wheezes, Respiratory Distress - Cardiovascular Exam Cardiovascular Exam: REGULAR RHYTHM, +S1, +S2 - GI/Abdominal Exam GI & Abdominal Exam: Normal Bowel Sounds, Soft. absent: Tenderness - Extremities Exam Extremities exam: normal capillary refill. absent: calf tenderness, pedal edema Additional comments: right shoulder pain on ROM, limited ROM due to pain - Back Exam Back exam: absent: CVA tenderness (L), CVA tenderness (R) - Neurological Exam Neurological exam: Alert, Oriented x3 - Psychiatric Exam Psychiatric exam: Flat Affect - Skin Skin Exam: Dry, Normal Color, Warm Assessment/Plan (1) Fall Current Visit: Yes Status: Acute Comment: Pt was brought in after fall hx of Parkinson's , poor balance PT,OT consulted may likely need to be placed in LTC since pt has hx of multiple falls (2) Parkinson disease Current Visit: Yes Status: Chronic Priority: Medium Comment: Progressive weakness - well known to Dr. Rosas, patient has progressive parkinsonism - Continue current management- Rytary as rec by Dr Rosas -continue PT/OT (3) Opacity of lung on imaging study Current Visit: No Status: Acute Comment: seen on previous CXR CT of chest- pt refused despite explanation of benefits/risk pt has no fever, no cough, no leukocytosis (4) Right shoulder pain Current Visit: Yes Status: Acute Comment: Pt continues to have right shoulder pain and limited ROM Shoulder x ray negative Refused CT of the shoulder (5) DVT prophylaxis Current Visit: Yes Status: Acute Comment: - SQ lovenox- monitor platelet closely (low) (6) Thrombocytopenia Current Visit: Yes Status: Chronic Comment: -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
[2015-07-16] MEDS: Enoxaparin 40 mg Syringe SC SCH (09:00)
[2015-07-16] MEDS: LEVODOPA PO SCH ×3 (09:01→17:00)
[2015-07-16] MEDS: Betamethasone Dip 0.05% Oint 45gm TOP SCH (09:01)
[2015-07-16] MEDS: CARBIDOPA PO SCH ×3 (09:01→17:00)
--- NOTE | 2015-07-16 12:01 | CP.PCM.PN ---
Subjective - Subjective Subjective: continues to refuse to have CT scan good PO intake Walked to bathroom with walker however assisted by 2 staff this am Review of Systems - Review of Systems All systems: reviewed and no additional remarkable complaints except - Constitutional Constitutional: Weakness. absent: Fever - EENT Eyes: absent: Change in Vision - Cardiovascular Cardiovascular: absent: Chest Pain - Respiratory Respiratory: absent: Cough, Dyspnea - Gastrointestinal Gastrointestinal: absent: Abdominal Pain - Genitourinary Genitourinary: absent: Dysuria - Musculoskeletal Musculoskeletal: Arthralgias - Neurological Neurological: Weakness. absent: Dizziness, Headaches - Psychiatric Psychiatric: Irritability - Endocrine Endocrine: absent: Polydipsia, Polyphagia, Polyuria - Hematologic/Lymphatic Hematologic: absent: Easy Bleeding, Easy Bruising Objective - Vital Signs/Intake and Output Vital Signs (last 24 hours): Vital Signs - 24 hr 07/15/15 07/16/15 07/16/15 16:31 00:32 07:23 Temperature 97.9 F 97.7 F 96.8 F L Pulse Rate 69 54 L 64 Respiratory 18 18 20 Rate Blood Pressure 97/55 L 144/67 150/98 H O2 Sat by Pulse 97 97 99 Oximetry 07/16/15 09:00 Temperature 96.8 F L Pulse Rate 64 Respiratory 20 Rate Blood Pressure 150/98 H O2 Sat by Pulse 99 Oximetry - Medications Medications: Current Medications Betamethasone Dipropionate (Diprolene) 1 applic TOP DAILY [facility] Last Admin: 07/16/15 09:01 Dose: 1 applic Donepezil HCl (Aricept) 10 mg PO HS [facility] Last Admin: 07/15/15 21:07 Dose: 10 mg Enoxaparin Sodium (Lovenox) 40 mg SC DAILY [facility] Last Admin: 07/16/15 09:00 Dose: 40 mg Gabapentin (Neurontin) 600 mg PO TID [facility] Last Admin: 07/16/15 09:00 Dose: 600 mg Home Med (Carbidopa/Levodopa [Rytary 48.75 Mg-195 Mg]) 3 cap PO TID [facility] Last Admin: 07/16/15 09:01 Dose: 3 cap Midodrine (Proamatine) 5 mg PO TID [facility] Last Admin: 07/16/15 09:00 Dose: 5 mg Quetiapine Fumarate (Seroquel) 50 mg PO HS PRN PRN Reason: Insomnia Last Admin: 07/16/15 03:57 Dose: 50 mg Tramadol HCl (Ultram) 50 mg PO Q6 PRN PRN Reason: Pain, moderate (4-7) Last Admin: 07/16/15 03:56 Dose: 50 mg - Constitutional Appears: No Acute Distress, Chronically Ill - Head Exam Head Exam: NORMAL INSPECTION, NORMOCEPHALIC - Eye Exam Eye Exam: EOMI, Normal appearance Pupil Exam: NORMAL ACCOMODATION - ENT Exam ENT Exam: Mucous Membranes Dry, Normal External Ear Exam - Neck Exam Neck exam: Full Rom. absent: Meningismus - Respiratory Exam Respiratory Exam: NORMAL BREATHING PATTERN. absent: Respiratory Distress - Cardiovascular Exam Cardiovascular Exam: Irregular Rhythm, +S1, +S2 - GI/Abdominal Exam GI & Abdominal Exam: Normal Bowel Sounds, Soft. absent: Tenderness - Extremities Exam Extremities exam: normal capillary refill. absent: calf tenderness, pedal edema Additional comments: right shoulder pain on ROM - Neurological Exam Neurological exam: Alert Additional comments: oriented to person and place - Psychiatric Exam Psychiatric exam: Flat Affect - Skin Skin Exam: Dry, Normal Color, Warm Assessment/Plan (1) Fall Current Visit: Yes Status: Acute Comment: Pt was brought in after fall hx of Parkinson's , poor balance PT,OT consulted may likely need to be placed in LTC since pt has hx of multiple falls- await palcement (2) Parkinson disease Current Visit: Yes Status: Chronic Priority: Medium Comment: Progressive weakness - well known to Dr. Rosas, patient has progressive parkinsonism - Continue current management- Rytary as rec by Dr Rosas -continue PT/OT (3) Opacity of lung on imaging study Current Visit: No Status: Acute Comment: seen on previous CXR CT of chest- pt refused despite explanation of benefits/risk pt has no fever, no cough, no leukocytosis (4) Right shoulder pain Current Visit: Yes Status: Acute Comment: Pt continues to have right shoulder pain and limited ROM Shoulder x ray negative Refused CT of the shoulder (5) DVT prophylaxis Current Visit: Yes Status: Acute Comment: - SQ lovenox- monitor platelet closely (low) (6) Thrombocytopenia Current Visit: Yes Status: Chronic Comment: -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
[2015-07-17] MEDS: Enoxaparin 40 mg Syringe SC SCH (09:25)
[2015-07-17] MEDS: Betamethasone Dip 0.05% Oint 45gm TOP SCH (09:26)
[2015-07-17] MEDS: CARBIDOPA PO SCH ×2 (15:02→18:37)
[2015-07-17] MEDS: LEVODOPA PO SCH ×2 (15:02→18:37)
--- NOTE | 2015-07-17 20:42 | CP.PCM.PN ---
Subjective - Subjective Subjective: Resting in bed Above notes appreciated Objective - Vital Signs/Intake and Output Vital Signs (last 24 hours): Vital Signs - 24 hr 07/17/15 07/17/15 07/17/15 00:12 07:41 15:45 Temperature 96.2 F L 97.6 F 97.2 F L Pulse Rate 69 67 90 Respiratory 20 20 20 Rate Blood Pressure 109/62 144/75 125/74 O2 Sat by Pulse 99 96 98 Oximetry - Medications Medications: Current Medications Betamethasone Dipropionate (Diprolene) 1 applic TOP DAILY [facility] Last Admin: 07/17/15 09:26 Dose: 1 applic Donepezil HCl (Aricept) 10 mg PO HS [facility] Last Admin: 07/16/15 21:27 Dose: 10 mg Enoxaparin Sodium (Lovenox) 40 mg SC DAILY [facility] Last Admin: 07/17/15 09:25 Dose: 40 mg Gabapentin (Neurontin) 600 mg PO TID [facility] Last Admin: 07/17/15 17:12 Dose: 600 mg Home Med (Carbidopa/Levodopa [Rytary 48.75 Mg-195 Mg]) 3 cap PO TID [facility] Last Admin: 07/17/15 18:37 Dose: 3 cap Midodrine (Proamatine) 5 mg PO TID [facility] Last Admin: 07/17/15 17:12 Dose: 5 mg Quetiapine Fumarate (Seroquel) 50 mg PO HS PRN PRN Reason: Insomnia Last Admin: 07/16/15 21:27 Dose: 50 mg Tramadol HCl (Ultram) 50 mg PO Q6 PRN PRN Reason: Pain, moderate (4-7) Last Admin: 07/17/15 09:25 Dose: 50 mg - Respiratory Exam Respiratory Exam: NORMAL BREATHING PATTERN - Cardiovascular Exam Cardiovascular Exam: REGULAR RHYTHM - GI/Abdominal Exam GI & Abdominal Exam: Normal Bowel Sounds Assessment/Plan - Assessment and Plan (Free Text) Assessment: 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
[2015-07-18] MEDS: Enoxaparin 40 mg Syringe SC SCH (08:37)
[2015-07-18] MEDS: LEVODOPA PO SCH ×3 (08:38→17:08)
[2015-07-18] MEDS: CARBIDOPA PO SCH ×3 (08:38→17:08)
[2015-07-18] MEDS: Betamethasone Dip 0.05% Oint 45gm TOP SCH (08:38)
--- NOTE | 2015-07-18 14:51 | CP.PCM.CON ---
History of Present Illness - History of Present Illness History of Present Illness: Patient is an 85 y/o male with PMH of Parkinson disease, podiatry service consulted for wound on posterior right leg. States he does not know how long the wound has been there because he does not notice it. Denies pain to the area , but does mention itching sensation occasionally. Denies noticing any drainage from the area. Denies history of similar lesions. Denies any form of treatment thus far. Denies F/C/N/V/SOB/CP. Review of Systems - Review of Systems All systems: reviewed and no additional remarkable complaints except Past Patient History - Tetanus Immunizations Tetanus Immunization: Unknown - Past Medical History & Family History Past Medical History?: Yes - Past Social History Smoking Status: Never Smoked - CARDIAC Hx Cardiac Disorders: No Hx Congestive Heart Failure: No Hx Hypercholesterolemia: No Hx Hypertension: No - PULMONARY Hx Chronic Obstructive Pulmonary Disease (COPD): No - NEUROLOGICAL HX Cerebrovascular Accident: No - HEENT Hx HEENT Problems: Yes Hx Cataracts: No Hx Deafness: No Hx Difficulty Chewing: No Hx Epistaxis: No Hx Glaucoma: Yes Hx Macular Degeneration: No - RENAL Hx Renal Failure: No - ENDOCRINE/METABOLIC Hx Diabetes Mellitus Type 1: No Hx Diabetes Mellitus Type 2: No Hx Hypothyroidism: No - HEMATOLOGICAL/ONCOLOGICAL Hx Anemia: No Hx Human Immunodeficiency Virus (HIV): No Hx Sickle Cell Disease: No - INTEGUMENTARY Hx Dermatological Problems: No Hx Basil Cell: No Hx Silva: No Hx Cellulitis: Yes (right leg) Hx Eczema: No Hx Melanoma: No Hx Psoriasis: No Hx Squamous Cell: No - MUSCULOSKELETAL/RHEUMATOLOGICAL Hx Arthritis: No Hx Rheumatoid Arthritis: No - GASTROINTESTINAL Hx Crohn's Disease: No Hx Diverticulitis: No Hx Gall Bladder Disease: No Hx Gastritis: No Hx Pancreatitis: No - GENITOURINARY/GYNECOLOGICAL Hx Sexually Transmitted Disorders: No - PSYCHIATRIC Hx Anxiety: Yes Hx Depression: Yes - SURGICAL HISTORY Hx Appendectomy: Yes Hx Carotid Endarterectomy: No Hx Cholecystectomy: No Hx Coronary Artery Bypass Graft: No Hx Coronary Stent: No Hx Tonsillectomy: Yes - ANESTHESIA Hx Anesthesia: Yes Hx Anesthesia Reactions: No Hx Malignant Hyperthermia: No Meds Allergies/Adverse Reactions: Allergies Allergy/AdvReac Type Severity Reaction Status Date / Time Penicillin Allergy HIVES Verified 07/10/15 13:43 - Medications Medications: Current Medications Betamethasone Dipropionate (Diprolene) 1 applic TOP DAILY [facility] Last Admin: 07/18/15 08:38 Dose: 1 applic Donepezil HCl (Aricept) 10 mg PO HS [facility] Last Admin: 07/17/15 21:44 Dose: 10 mg Enoxaparin Sodium (Lovenox) 40 mg SC DAILY [facility] Last Admin: 07/18/15 08:37 Dose: 40 mg Gabapentin (Neurontin) 600 mg PO TID [facility] Last Admin: 07/18/15 13:30 Dose: 600 mg Home Med (Carbidopa/Levodopa [Rytary 48.75 Mg-195 Mg]) 3 cap PO TID [facility] Last Admin: 07/18/15 13:30 Dose: 3 cap Midodrine (Proamatine) 5 mg PO TID [facility] Last Admin: 07/18/15 13:30 Dose: 5 mg Quetiapine Fumarate (Seroquel) 50 mg PO HS PRN PRN Reason: Insomnia Last Admin: 07/17/15 21:44 Dose: 50 mg Tramadol HCl (Ultram) 50 mg PO Q6 PRN PRN Reason: Pain, moderate (4-7) Last Admin: 07/17/15 09:25 Dose: 50 mg Physical Exam - Constitutional Appears: No Acute Distress, Confused - Extremities Exam Extremities exam: Positive for: normal capillary refill, pedal pulses present. Negative for: calf tenderness, pedal edema Additional comments: RLE exam: Derm: There is an area measuring approximately 7cm x 5cm on the posterior lower leg that is erythematous, raised with multiple superficial fissures, mild serous drainage, no purulence, no abscess, no malodor, no warmth. A second unrelated granular eschar noted at infrapatellar area. Vascular: DP/PT pulses 2/4, CFT <3sec, temperature unremarkable. Neuro: Gross sensation intact. Ortho: No gross ana paula deformities, minor tremors noted. - Neurological Exam Neurological exam: Alert Results - Vital Signs Recent Vital Signs: Last Vital Signs Temp 97.9 F 07/18/15 07:46 Pulse 69 07/18/15 07:46 Resp 20 07/18/15 07:46 BP 127/72 07/18/15 07:46 Pulse Ox 97 07/18/15 07:46 - Labs Result Diagrams: 07/15/15 07:00 07/15/15 07:00 Assessment/Plan - Assessment and Plan (Free Text) Assessment: Patient is an 85y/o male with PMH of Parkinson disease who presents with superficial lesion posterior right leg. Plan: -etiology superficial infection vs. dermatitis -patient evaluated and treated with all questions addressed and answered. -discussed with attending Dr. Buck. -area was dressed with silvadene, DSD, kerlix and RAMON. -will cont to follow while in hospital.
--- NOTE | 2015-07-18 20:48 | CP.PCM.PN ---
Subjective - Subjective Subjective: Area of erythema post distal 1/3 of RLE C/O shoulder ?? Objective - Vital Signs/Intake and Output Vital Signs (last 24 hours): Vital Signs - 24 hr 07/17/15 07/18/15 07/18/15 21:36 07:46 16:23 Temperature 96.9 F L 97.9 F 98.2 F Pulse Rate 78 69 92 H Respiratory 20 20 Rate Blood Pressure 100/60 127/72 113/56 L O2 Sat by Pulse 97 97 98 Oximetry - Medications Medications: Current Medications Betamethasone Dipropionate (Diprolene) 1 applic TOP DAILY [facility] Last Admin: 07/18/15 08:38 Dose: 1 applic Donepezil HCl (Aricept) 10 mg PO HS [facility] Last Admin: 07/17/15 21:44 Dose: 10 mg Enoxaparin Sodium (Lovenox) 40 mg SC DAILY [facility] Last Admin: 07/18/15 08:37 Dose: 40 mg Gabapentin (Neurontin) 600 mg PO TID [facility] Last Admin: 07/18/15 17:08 Dose: 600 mg Home Med (Carbidopa/Levodopa [Rytary 48.75 Mg-195 Mg]) 3 cap PO TID [facility] Last Admin: 07/18/15 17:08 Dose: 3 cap Midodrine (Proamatine) 5 mg PO TID [facility] Last Admin: 07/18/15 17:09 Dose: 5 mg Quetiapine Fumarate (Seroquel) 50 mg PO HS PRN PRN Reason: Insomnia Last Admin: 07/17/15 21:44 Dose: 50 mg Tramadol HCl (Ultram) 50 mg PO Q6 PRN PRN Reason: Pain, moderate (4-7) Last Admin: 07/17/15 09:25 Dose: 50 mg - Respiratory Exam Respiratory Exam: NORMAL BREATHING PATTERN - Cardiovascular Exam Cardiovascular Exam: REGULAR RHYTHM - GI/Abdominal Exam GI & Abdominal Exam: Normal Bowel Sounds Assessment/Plan - Assessment and Plan (Free Text) Assessment: 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 ABX leg elevation xray C/S
[2015-07-19 07:37] LABS: BLOOD UREA NITROGEN 27 mg/dl (9-20); CALCIUM 9.2 mg/dL (8.4-10.2); GFR AFRICAN-AMERICAN > 60; GFR NON-AFRICAN AMERICAN > 60
--- NOTE | 2015-07-19 08:26 | CP.PCM.PN ---
Subjective - Subjective Subjective: Patient was seen bedside today in [facility]. It takes multiple attempts for him to answer a question directly, but he eventually states he is feeling fine. His only complaint concerning his RLE is that the dressing looks bad. Denies pain in his RLE. Denies F/C/N/V. Review of Systems - Review of Systems All systems: reviewed and no additional remarkable complaints except Objective - Vital Signs/Intake and Output Vital Signs (last 24 hours): Vital Signs - 24 hr 07/18/15 07/19/15 07/19/15 16:23 00:00 08:12 Temperature 98.2 F 97.2 F L 97.7 F Pulse Rate 92 H 80 68 Respiratory 19 20 Rate Blood Pressure 113/56 L 130/76 182/93 H O2 Sat by Pulse 98 100 100 Oximetry - Medications Medications: Current Medications Betamethasone Dipropionate (Diprolene) 1 applic TOP DAILY [facility] Last Admin: 07/18/15 08:38 Dose: 1 applic Donepezil HCl (Aricept) 10 mg PO HS [facility] Last Admin: 07/18/15 22:03 Dose: 10 mg Enoxaparin Sodium (Lovenox) 40 mg SC DAILY [facility] Last Admin: 07/18/15 08:37 Dose: 40 mg Gabapentin (Neurontin) 600 mg PO TID [facility] Last Admin: 07/18/15 17:08 Dose: 600 mg Home Med (Carbidopa/Levodopa [Rytary 48.75 Mg-195 Mg]) 3 cap PO TID [facility] Last Admin: 07/18/15 17:08 Dose: 3 cap Cefazolin Sodium 1 gm/ Sodium (Chloride) 100 mls @ 100 mls/hr IVPB Q8 [facility] Midodrine (Proamatine) 5 mg PO TID [facility] Last Admin: 07/18/15 17:09 Dose: 5 mg Quetiapine Fumarate (Seroquel) 50 mg PO HS PRN PRN Reason: Insomnia Last Admin: 07/17/15 21:44 Dose: 50 mg Tramadol HCl (Ultram) 50 mg PO Q6 PRN PRN Reason: Pain, moderate (4-7) Last Admin: 07/17/15 09:25 Dose: 50 mg - Labs Labs (last 24 hours): Laboratory Results - last 24 hr 07/19/15 04:30 Sodium 139 Potassium 4.6 Chloride 102 Carbon Dioxide 29 Anion Gap 13 BUN 27 H Creatinine 0.8 Est GFR ( Amer) > 60 Est GFR (Non-Af Amer) > 60 Random Glucose 93 Calcium 9.2 - Constitutional Appears: No Acute Distress - Extremities Exam Extremities exam: absent: calf tenderness Additional comments: RLE exam: Derm: There is an area measuring approximately 7cm x 5cm on the posterior lower leg that is erythematous, but erythema decreased since yesterday, raised with multiple superficial fissures, no drainage appreciated today, no purulence , no abscess, no malodor, no warmth. There are also superficial fissures on the anterior leg with surrounding hyperpigmentation, no erythema, no appreciated drainage. A second unrelated granular eschar noted at infrapatellar area. Vascular: DP/PT pulses 2/4, CFT <3sec, temperature unremarkable. Multiple varicosities noted in the leg B/L. Neuro: Gross sensation intact. Ortho: No gross ana paula deformities, minor tremors noted. - Neurological Exam Neurological exam: Alert - Psychiatric Exam Psychiatric exam: Agitated Assessment/Plan - Assessment and Plan (Free Text) Assessment: Patient is an 85y/o male with PMH of Parkinson disease who presents with superficial lesions on the right leg 2/2 venous stasis dermatitis. Plan: -symptoms improved since yesterday. -patient was evaluated and treated with all questions addressed and answered. -examined with attending, Dr. Buck. -Betamethasone ointment was applied to right leg and dressed with DSD, RAMON. -will cont with daily application of betamethasone ointment, no need for abx at this time. -will cont to follow while in hospital.
[2015-07-19] MEDS: Enoxaparin 40 mg Syringe SC SCH (08:38)
[2015-07-19] MEDS: LEVODOPA PO SCH ×3 (08:38→17:29)
[2015-07-19] MEDS: CARBIDOPA PO SCH ×3 (08:38→17:29)
[2015-07-19] MEDS: Betamethasone Dip 0.05% Oint 45gm TOP SCH (09:09)
[2015-07-19 09:26] LABS: HEMOGLOBIN 13.4 g/dL (12.0-18.0); MEAN CELL VOLUME 93.9 fl (80.0-94.0); MEAN CORPUSCULAR HEMOGLOBIN 30.3 pg (27.0-31.0); MEAN CORPUSCULAR HGB CONC 32.3 g/dL (33.0-37.0); RBC 4.44 Mil/uL (4.40-5.90); RED CELL DISTRIBUTION WIDTH 13.3 % (11.5-14.5); WHITE BLOOD COUNT 6.4 K/uL (4.8-10.8)
--- NOTE | 2015-07-19 15:22 | RAD ---
HISTORY: ? opacity COMPARISON: Comparison is made with prior exam from 05/10/2015. TECHNIQUE: Chest PA and lateral FINDINGS: LUNGS: No acute consolidation. PLEURA: There is stable blunting of the right costophrenic angle. CARDIOVASCULAR: Cardiomegaly. Uncoiled aorta. Calcification of the aortic knob. OSSEOUS STRUCTURES: Probable healed right-sided rib fractures. Multilevel degenerative changes of the spine. VISUALIZED UPPER ABDOMEN: Normal. OTHER FINDINGS: None. IMPRESSION: No acute consolidation.
--- NOTE | 2015-07-19 15:26 | RAD ---
PROCEDURE: Right Knee Radiographs. HISTORY: erythema and swelling @ right calf COMPARISON: Comparison is made with prior study from 07/10/2015 FINDINGS: BONES: Status post right knee arthroplasty. The femoral and tibial components are well seated. There is no evidence of osteolysis or periprosthetic fracture. JOINT EFFUSION: Fluid is seen within the suprapatellar space. OTHER FINDINGS: Soft tissue calcifications are noted. IMPRESSION: Status post right knee arthroplasty. No evidence of osteolysis or periprosthetic fracture.
--- NOTE | 2015-07-19 17:12 | CP.PCM.PN ---
Subjective - Subjective Subjective: Patient seen at bedside for stasis dermatitis right lower leg which is responding well to RX . Refer to Resident note for complete findings . Objective - Vital Signs/Intake and Output Vital Signs (last 24 hours): Vital Signs - 24 hr 07/19/15 07/19/15 07/19/15 00:00 08:12 16:38 Temperature 97.2 F L 97.7 F 97.9 F Pulse Rate 80 68 70 Respiratory 19 20 Rate Blood Pressure 130/76 182/93 H 114/60 O2 Sat by Pulse 100 100 99 Oximetry - Medications Medications: Current Medications Betamethasone Dipropionate (Diprolene) 1 applic TOP DAILY [facility] Last Admin: 07/19/15 09:09 Dose: 1 applic Donepezil HCl (Aricept) 10 mg PO HS [facility] Last Admin: 07/18/15 22:03 Dose: 10 mg Enoxaparin Sodium (Lovenox) 40 mg SC DAILY [facility] Last Admin: 07/19/15 08:38 Dose: 40 mg Gabapentin (Neurontin) 600 mg PO TID [facility] Last Admin: 07/19/15 08:38 Dose: 600 mg Home Med (Carbidopa/Levodopa [Rytary 48.75 Mg-195 Mg]) 3 cap PO TID [facility] Last Admin: 07/19/15 08:38 Dose: 3 cap Midodrine (Proamatine) 5 mg PO TID [facility] Last Admin: 07/19/15 08:37 Dose: 5 mg Quetiapine Fumarate (Seroquel) 50 mg PO HS PRN PRN Reason: Insomnia Last Admin: 07/17/15 21:44 Dose: 50 mg Tramadol HCl (Ultram) 50 mg PO Q6 PRN PRN Reason: Pain, moderate (4-7) Last Admin: 07/17/15 09:25 Dose: 50 mg - Labs Labs (last 24 hours): Laboratory Results - last 24 hr 07/19/15 07/19/15 04:30 09:05 WBC 6.4 RBC 4.44 Hgb 13.4 Hct 41.7 MCV 93.9 MCH 30.3 MCHC 32.3 L RDW 13.3 Plt Count 100 L Sodium 139 Potassium 4.6 Chloride 102 Carbon Dioxide 29 Anion Gap 13 BUN 27 H Creatinine 0.8 Est GFR ( Amer) > 60 Est GFR (Non-Af Amer) > 60 Random Glucose 93 Calcium 9.2
--- NOTE | 2015-07-19 17:26 | CP.PCM.CON ---
Past Patient History - Tetanus Immunizations Tetanus Immunization: Unknown - Past Medical History & Family History Past Medical History?: Yes - Past Social History Smoking Status: Never Smoked - CARDIAC Hx Cardiac Disorders: No Hx Congestive Heart Failure: No Hx Hypercholesterolemia: No Hx Hypertension: No - PULMONARY Hx Chronic Obstructive Pulmonary Disease (COPD): No - NEUROLOGICAL HX Cerebrovascular Accident: No - HEENT Hx HEENT Problems: Yes Hx Cataracts: No Hx Deafness: No Hx Difficulty Chewing: No Hx Epistaxis: No Hx Glaucoma: Yes Hx Macular Degeneration: No - RENAL Hx Renal Failure: No - ENDOCRINE/METABOLIC Hx Diabetes Mellitus Type 1: No Hx Diabetes Mellitus Type 2: No Hx Hypothyroidism: No - HEMATOLOGICAL/ONCOLOGICAL Hx Anemia: No Hx Human Immunodeficiency Virus (HIV): No Hx Sickle Cell Disease: No - INTEGUMENTARY Hx Dermatological Problems: No Hx Basil Cell: No Hx Silva: No Hx Cellulitis: Yes (right leg) Hx Eczema: No Hx Melanoma: No Hx Psoriasis: No Hx Squamous Cell: No - MUSCULOSKELETAL/RHEUMATOLOGICAL Hx Arthritis: No Hx Rheumatoid Arthritis: No - GASTROINTESTINAL Hx Crohn's Disease: No Hx Diverticulitis: No Hx Gall Bladder Disease: No Hx Gastritis: No Hx Pancreatitis: No - GENITOURINARY/GYNECOLOGICAL Hx Sexually Transmitted Disorders: No - PSYCHIATRIC Hx Anxiety: Yes Hx Depression: Yes - SURGICAL HISTORY Hx Appendectomy: Yes Hx Carotid Endarterectomy: No Hx Cholecystectomy: No Hx Coronary Artery Bypass Graft: No Hx Coronary Stent: No Hx Tonsillectomy: Yes - ANESTHESIA Hx Anesthesia: Yes Hx Anesthesia Reactions: No Hx Malignant Hyperthermia: No Meds Allergies/Adverse Reactions: Allergies Allergy/AdvReac Type Severity Reaction Status Date / Time Penicillin Allergy HIVES Verified 07/10/15 13:43 - Medications Medications: Current Medications Betamethasone Dipropionate (Diprolene) 1 applic TOP DAILY [facility] Last Admin: 07/19/15 09:09 Dose: 1 applic Donepezil HCl (Aricept) 10 mg PO HS [facility] Last Admin: 07/18/15 22:03 Dose: 10 mg Enoxaparin Sodium (Lovenox) 40 mg SC DAILY [facility] Last Admin: 07/19/15 08:38 Dose: 40 mg Gabapentin (Neurontin) 600 mg PO TID [facility] Last Admin: 07/19/15 08:38 Dose: 600 mg Home Med (Carbidopa/Levodopa [Rytary 48.75 Mg-195 Mg]) 3 cap PO TID [facility] Last Admin: 07/19/15 08:38 Dose: 3 cap Midodrine (Proamatine) 5 mg PO TID [facility] Last Admin: 07/19/15 08:37 Dose: 5 mg Quetiapine Fumarate (Seroquel) 50 mg PO HS PRN PRN Reason: Insomnia Last Admin: 07/17/15 21:44 Dose: 50 mg Tramadol HCl (Ultram) 50 mg PO Q6 PRN PRN Reason: Pain, moderate (4-7) Last Admin: 07/17/15 09:25 Dose: 50 mg Results - Vital Signs Recent Vital Signs: Last Vital Signs Temp 97.9 F 07/19/15 16:38 Pulse 70 07/19/15 16:38 Resp 20 07/19/15 08:12 BP 114/60 07/19/15 16:38 Pulse Ox 99 07/19/15 16:38 - Labs Result Diagrams: 07/19/15 09:05 07/19/15 04:30 Labs: Laboratory Results - last 24 hr 07/19/15 07/19/15 04:30 09:05 WBC 6.4 RBC 4.44 Hgb 13.4 Hct 41.7 MCV 93.9 MCH 30.3 MCHC 32.3 L RDW 13.3 Plt Count 100 L Sodium 139 Potassium 4.6 Chloride 102 Carbon Dioxide 29 Anion Gap 13 BUN 27 H Creatinine 0.8 Est GFR ( Amer) > 60 Est GFR (Non-Af Amer) > 60 Random Glucose 93 Calcium 9.2
--- NOTE | 2015-07-19 19:13 | CP.PCM.PN ---
Subjective - Subjective Subjective: RLE erythema much improved Objective - Vital Signs/Intake and Output Vital Signs (last 24 hours): Vital Signs - 24 hr 07/19/15 07/19/15 07/19/15 00:00 08:12 16:38 Temperature 97.2 F L 97.7 F 97.9 F Pulse Rate 80 68 70 Respiratory 19 20 Rate Blood Pressure 130/76 182/93 H 114/60 O2 Sat by Pulse 100 100 99 Oximetry - Medications Medications: Current Medications Betamethasone Dipropionate (Diprolene) 1 applic TOP DAILY [facility] Last Admin: 07/19/15 09:09 Dose: 1 applic Donepezil HCl (Aricept) 10 mg PO HS [facility] Last Admin: 07/18/15 22:03 Dose: 10 mg Enoxaparin Sodium (Lovenox) 40 mg SC DAILY [facility] Last Admin: 07/19/15 08:38 Dose: 40 mg Gabapentin (Neurontin) 600 mg PO TID [facility] Last Admin: 07/19/15 17:32 Dose: 600 mg Home Med (Carbidopa/Levodopa [Rytary 48.75 Mg-195 Mg]) 3 cap PO TID [facility] Last Admin: 07/19/15 17:29 Dose: 3 cap Midodrine (Proamatine) 5 mg PO TID [facility] Last Admin: 07/19/15 17:31 Dose: 5 mg Quetiapine Fumarate (Seroquel) 50 mg PO HS PRN PRN Reason: Insomnia Last Admin: 07/17/15 21:44 Dose: 50 mg Tramadol HCl (Ultram) 50 mg PO Q6 PRN PRN Reason: Pain, moderate (4-7) Last Admin: 07/17/15 09:25 Dose: 50 mg - Labs Labs (last 24 hours): Laboratory Results - last 24 hr 07/19/15 07/19/15 04:30 09:05 WBC 6.4 RBC 4.44 Hgb 13.4 Hct 41.7 MCV 93.9 MCH 30.3 MCHC 32.3 L RDW 13.3 Plt Count 100 L Sodium 139 Potassium 4.6 Chloride 102 Carbon Dioxide 29 Anion Gap 13 BUN 27 H Creatinine 0.8 Est GFR ( Amer) > 60 Est GFR (Non-Af Amer) > 60 Random Glucose 93 Calcium 9.2 - Respiratory Exam Respiratory Exam: NORMAL BREATHING PATTERN - Cardiovascular Exam Cardiovascular Exam: REGULAR RHYTHM - GI/Abdominal Exam GI & Abdominal Exam: Normal Bowel Sounds Assessment/Plan - Assessment and Plan (Free Text) Assessment: 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
--- NOTE | 2015-07-20 09:23 | CP.PCM.PN ---
Subjective - Subjective Subjective: Patient was seen bedside today in [facility]. Seems more alert today and states he is feeling fine. States his RLE caused him mild pain overnight and he thinks the dressings are too bulky. Denies F/C/N/V. Review of Systems - Review of Systems All systems: reviewed and no additional remarkable complaints except Objective - Vital Signs/Intake and Output Vital Signs (last 24 hours): Vital Signs - 24 hr 07/19/15 07/20/15 16:38 08:28 Temperature 97.9 F 97.3 F L Pulse Rate 70 62 Respiratory 20 Rate Blood Pressure 114/60 133/79 O2 Sat by Pulse 99 99 Oximetry - Medications Medications: Current Medications Betamethasone Dipropionate (Diprolene) 1 applic TOP DAILY [facility] Last Admin: 07/19/15 09:09 Dose: 1 applic Donepezil HCl (Aricept) 10 mg PO HS [facility] Last Admin: 07/19/15 23:09 Dose: Not Given Enoxaparin Sodium (Lovenox) 40 mg SC DAILY [facility] Last Admin: 07/19/15 08:38 Dose: 40 mg Gabapentin (Neurontin) 600 mg PO TID [facility] Last Admin: 07/19/15 17:32 Dose: 600 mg Home Med (Carbidopa/Levodopa [Rytary 48.75 Mg-195 Mg]) 3 cap PO TID [facility] Last Admin: 07/19/15 17:29 Dose: 3 cap Midodrine (Proamatine) 5 mg PO TID [facility] Last Admin: 07/19/15 17:31 Dose: 5 mg Quetiapine Fumarate (Seroquel) 50 mg PO HS PRN PRN Reason: Insomnia Last Admin: 07/17/15 21:44 Dose: 50 mg Tramadol HCl (Ultram) 50 mg PO Q6 PRN PRN Reason: Pain, moderate (4-7) Last Admin: 07/17/15 09:25 Dose: 50 mg - Labs Labs (last 24 hours): Laboratory Results - last 24 hr 07/19/15 09:05 WBC 6.4 RBC 4.44 Hgb 13.4 Hct 41.7 MCV 93.9 MCH 30.3 MCHC 32.3 L RDW 13.3 Plt Count 100 L - Constitutional Appears: No Acute Distress - Extremities Exam Additional comments: RLE exam: Derm: Erythema on leg greatly diminished, superficial fissures on anterior and posterior leg still present,decreased in size and no drainage appreciated today , no purulence, no abscess, no malodor, no warmth. Surrounding skin hyperpigmented. A second unrelated granular eschar noted at infrapatellar area. Vascular: DP/PT pulses 2/4, CFT <3sec, temperature unremarkable. Multiple varicosities noted in the leg B/L. Neuro: Gross sensation intact. Ortho: No gross ana paula deformities, minor tremors noted. - Neurological Exam Neurological exam: Alert Assessment/Plan - Assessment and Plan (Free Text) Assessment: Patient is an 85y/o male with PMH of Parkinson disease who presents with superficial lesions on the right leg 2/2 venous stasis dermatitis. Plan: -symptoms improved since yesterday. -patient was evaluated and treated with all questions addressed and answered. -discussed with attending, Dr. Buck. -Betamethasone ointment was applied to right leg and dressed with DSD, RAMON. -will cont with daily application of betamethasone ointment, no need for abx at this time. -will cont to follow while in hospital. -stable from podiatry standpoint for outpt care.
[2015-07-20] MEDS: LEVODOPA PO SCH ×4 (09:34→16:40)
[2015-07-20] MEDS: CARBIDOPA PO SCH ×4 (09:34→16:40)
[2015-07-20] MEDS: Betamethasone Dip 0.05% Oint 45gm TOP SCH (09:41)
--- NOTE | 2015-07-20 09:52 | CP.PCM.CON ---
History of Present Illness - History of Present Illness History of Present Illness: Asked to see this patient because of a pulmonary infiltrate which had been seen in the past on a previous CXR. He has been uncooperative with request for a CT chest, but did agree yesterday to having a portable chest x-ray. The density described on previous x-ray has resolved, and no infiltrates were seen. He offers no specific respiratory complaints. The consult has not been done. Thank you. Past Patient History - Tetanus Immunizations Tetanus Immunization: Unknown - Past Medical History & Family History Past Medical History?: Yes - Past Social History Smoking Status: Never Smoked - CARDIAC Hx Cardiac Disorders: No Hx Congestive Heart Failure: No Hx Hypercholesterolemia: No Hx Hypertension: No - PULMONARY Hx Chronic Obstructive Pulmonary Disease (COPD): No - NEUROLOGICAL HX Cerebrovascular Accident: No - HEENT Hx HEENT Problems: Yes Hx Cataracts: No Hx Deafness: No Hx Difficulty Chewing: No Hx Epistaxis: No Hx Glaucoma: Yes Hx Macular Degeneration: No - RENAL Hx Renal Failure: No - ENDOCRINE/METABOLIC Hx Diabetes Mellitus Type 1: No Hx Diabetes Mellitus Type 2: No Hx Hypothyroidism: No - HEMATOLOGICAL/ONCOLOGICAL Hx Anemia: No Hx Human Immunodeficiency Virus (HIV): No Hx Sickle Cell Disease: No - INTEGUMENTARY Hx Dermatological Problems: No Hx Basil Cell: No Hx Silva: No Hx Cellulitis: Yes (right leg) Hx Eczema: No Hx Melanoma: No Hx Psoriasis: No Hx Squamous Cell: No - MUSCULOSKELETAL/RHEUMATOLOGICAL Hx Arthritis: No Hx Rheumatoid Arthritis: No - GASTROINTESTINAL Hx Crohn's Disease: No Hx Diverticulitis: No Hx Gall Bladder Disease: No Hx Gastritis: No Hx Pancreatitis: No - GENITOURINARY/GYNECOLOGICAL Hx Sexually Transmitted Disorders: No - PSYCHIATRIC Hx Anxiety: Yes Hx Depression: Yes - SURGICAL HISTORY Hx Appendectomy: Yes Hx Carotid Endarterectomy: No Hx Cholecystectomy: No Hx Coronary Artery Bypass Graft: No Hx Coronary Stent: No Hx Tonsillectomy: Yes - ANESTHESIA Hx Anesthesia: Yes Hx Anesthesia Reactions: No Hx Malignant Hyperthermia: No Meds Allergies/Adverse Reactions: Allergies Allergy/AdvReac Type Severity Reaction Status Date / Time Penicillin Allergy HIVES Verified 07/10/15 13:43 - Medications Medications: Current Medications Betamethasone Dipropionate (Diprolene) 1 applic TOP DAILY [facility] Last Admin: 07/19/15 09:09 Dose: 1 applic Donepezil HCl (Aricept) 10 mg PO HS [facility] Last Admin: 07/19/15 23:09 Dose: Not Given Enoxaparin Sodium (Lovenox) 40 mg SC DAILY [facility] Last Admin: 07/19/15 08:38 Dose: 40 mg Gabapentin (Neurontin) 600 mg PO TID [facility] Last Admin: 07/19/15 17:32 Dose: 600 mg Home Med (Carbidopa/Levodopa [Rytary 48.75 Mg-195 Mg]) 3 cap PO TID [facility] Last Admin: 07/19/15 17:29 Dose: 3 cap Midodrine (Proamatine) 5 mg PO TID [facility] Last Admin: 07/19/15 17:31 Dose: 5 mg Quetiapine Fumarate (Seroquel) 50 mg PO HS PRN PRN Reason: Insomnia Last Admin: 07/17/15 21:44 Dose: 50 mg Tramadol HCl (Ultram) 50 mg PO Q6 PRN PRN Reason: Pain, moderate (4-7) Last Admin: 07/17/15 09:25 Dose: 50 mg Results - Vital Signs Recent Vital Signs: Last Vital Signs Temp 97.3 F L 07/20/15 08:28 Pulse 62 07/20/15 08:28 Resp 20 07/20/15 08:28 BP 133/79 07/20/15 08:28 Pulse Ox 99 07/20/15 08:28 - Labs Result Diagrams: 07/19/15 09:05 07/19/15 04:30 Assessment/Plan - Assessment and Plan (Free Text) Assessment: Current CXR does not reveal any pulmonary infiltrates. Plan: Consultation has not been performed. Please feel free to re-call if needed. Thank you. - Date & Time Date: 07/20/15 Time: 09:54
[2015-07-20] MEDS: Enoxaparin 40 mg Syringe SC SCH (10:30)
--- NOTE | 2015-07-20 14:22 | CP.PCM.CON ---
History of Present Illness - History of Present Illness History of Present Illness: psychiatry consult consult ordered by dr. haley reason for consult: can he make medical decisions? cc: "i'll be here don't worry" hpi: 85 year old male, recently on the step unit and started on seroquel and lexapro. pt is medically admitted after a fall- complications with his parkinsons. he is adherent with treatment and overall, cooperative with staff. apparently last night he had some episode of agitation- historically he has some problems with becoming angry and yelling. he did well with seroquel whil on the step program. pt had been refusing a chest CT, but per pulomonary consult , this test is not necessary. pt able to state why he is hospitalized, what is medical problems now, where he lives, who cares for him at home and he states he wants to return home rather than a [facility] because "i've been to enough rehabs that i know i won't be happy there, and i want to be happy" he denies any suicidal or homicidal thoughts. medical: parkinsons disease, shy drager syndrome past psych: lexapro 5mg, seroquel 50mg hs prn. was recently on the geropsych unit social history: pt is a , he lives in [place], has caretakers. apparently family is interested in senior living placement, because pt does not have 24 hour caretakers. mental status: pt is alert, oriented x 3. he is aware of the circumstances of his admission and his treatment options. his memory is grossly intact. his speech is halting at time, but follows a logical course. he reports his mood is "fine" but he is somewhat irritable at times. his affect is appropriate. he denies suicidal or homicidal thoughts, plan or intent. he has fair insight/ judgment is appropriate. diagnosis: depression, moderate by history recommendations: pt appears at this time to have the capacity to understand and make decisions regarding going home vs. [facility] placement can restart lexapro 5mg am if questions about pt's cognitive abilities, could consult dr. mccracken for an assessment please reconsult if any questions Past Patient History - Tetanus Immunizations Tetanus Immunization: Unknown - Past Medical History & Family History Past Medical History?: Yes - Past Social History Smoking Status: Never Smoked - CARDIAC Hx Cardiac Disorders: No Hx Congestive Heart Failure: No Hx Hypercholesterolemia: No Hx Hypertension: No - PULMONARY Hx Chronic Obstructive Pulmonary Disease (COPD): No - NEUROLOGICAL HX Cerebrovascular Accident: No - HEENT Hx HEENT Problems: Yes Hx Cataracts: No Hx Deafness: No Hx Difficulty Chewing: No Hx Epistaxis: No Hx Glaucoma: Yes Hx Macular Degeneration: No - RENAL Hx Renal Failure: No - ENDOCRINE/METABOLIC Hx Diabetes Mellitus Type 1: No Hx Diabetes Mellitus Type 2: No Hx Hypothyroidism: No - HEMATOLOGICAL/ONCOLOGICAL Hx Anemia: No Hx Human Immunodeficiency Virus (HIV): No Hx Sickle Cell Disease: No - INTEGUMENTARY Hx Dermatological Problems: No Hx Basil Cell: No Hx Silva: No Hx Cellulitis: Yes (right leg) Hx Eczema: No Hx Melanoma: No Hx Psoriasis: No Hx Squamous Cell: No - MUSCULOSKELETAL/RHEUMATOLOGICAL Hx Arthritis: No Hx Rheumatoid Arthritis: No - GASTROINTESTINAL Hx Crohn's Disease: No Hx Diverticulitis: No Hx Gall Bladder Disease: No Hx Gastritis: No Hx Pancreatitis: No - GENITOURINARY/GYNECOLOGICAL Hx Sexually Transmitted Disorders: No - PSYCHIATRIC Hx Anxiety: Yes Hx Depression: Yes - SURGICAL HISTORY Hx Appendectomy: Yes Hx Carotid Endarterectomy: No Hx Cholecystectomy: No Hx Coronary Artery Bypass Graft: No Hx Coronary Stent: No Hx Tonsillectomy: Yes - ANESTHESIA Hx Anesthesia: Yes Hx Anesthesia Reactions: No Hx Malignant Hyperthermia: No Meds Allergies/Adverse Reactions: Allergies Allergy/AdvReac Type Severity Reaction Status Date / Time Penicillin Allergy HIVES Verified 07/10/15 13:43 - Medications Medications: Current Medications Betamethasone Dipropionate (Diprolene) 1 applic TOP DAILY [facility] Last Admin: 07/19/15 09:09 Dose: 1 applic Donepezil HCl (Aricept) 10 mg PO HS [facility] Last Admin: 07/19/15 23:09 Dose: Not Given Enoxaparin Sodium (Lovenox) 40 mg SC DAILY [facility] Last Admin: 07/20/15 10:30 Dose: 40 mg Gabapentin (Neurontin) 600 mg PO TID [facility] Last Admin: 07/20/15 12:35 Dose: 600 mg Home Med (Carbidopa/Levodopa [Rytary 48.75 Mg-195 Mg]) 3 cap PO TID [facility] Last Admin: 07/20/15 12:35 Dose: 3 cap Midodrine (Proamatine) 5 mg PO TID [facility] Last Admin: 07/20/15 12:35 Dose: 5 mg Quetiapine Fumarate (Seroquel) 50 mg PO HS PRN PRN Reason: Insomnia Last Admin: 07/17/15 21:44 Dose: 50 mg Tramadol HCl (Ultram) 50 mg PO Q6 PRN PRN Reason: Pain, moderate (4-7) Last Admin: 07/17/15 09:25 Dose: 50 mg Results - Vital Signs Recent Vital Signs: Last Vital Signs Temp 97.3 F L 07/20/15 08:28 Pulse 62 07/20/15 08:28 Resp 20 07/20/15 08:28 BP 133/79 07/20/15 08:28 Pulse Ox 99 07/20/15 08:28 - Labs Result Diagrams: 07/19/15 09:05 07/19/15 04:30
--- NOTE | 2015-07-20 18:31 | CP.PCM.CON ---
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 , is admitted s/p fall referred for ID eval of rash Has rash right leg and right chest- vesicular Review of Systems - Review of Systems Systems not reviewed;Unavailable: Altered Mental Status - Constitutional Constitutional: absent: Fever - EENT Eyes: As Per HPI Ears: As Per HPI Nose/Mouth/Throat: As Per HPI - Cardiovascular Cardiovascular: absent: As Per HPI, Acrocyanosis, Chest Pain, Chest Pain at Rest , Chest Pain with Activity, Claudication, Diaphoresis, Dyspnea, Dyspnea on Exertion, Edema, Irregular Heart Rhythm, Pain Radiating to Arm/Neck/Jaw, Leg Edema, Leg Ulcers, Lightheadedness, Orthopnea, Palpitations, Paroxysmal Nocturnal Dyspnea, Pedal Edema, Radiating Pain, Rapid Heart Rate, Slow Heart Rate, Syncope, Other, UNREMARKABLE - Respiratory Respiratory: absent: As Per HPI, Cough, Dyspnea, Hemoptysis, Dyspnea on Exertion , Wheezing, Snoring, Stridor, Pain on Inspiration, Chest Congestion, Excessive Mucous Production, Change in Mucous Color, Pain with Coughing, Other, UNREMARKABLE - Gastrointestinal Gastrointestinal: absent: As Per HPI, Abdominal Pain, Belching, Bloating, Change in Bowel Habits, Change in Stool Character, Coffee Ground Emesis, Constipation, Cramping, Diarrhea, Dyspepsia, Dysphagia, Early Satiety, Excessive Flatus, Fecal Incontinence, Heartburn, Hematemesis, Hematochezia, Loose Stools, Melena, Nausea, Odynophagia, Temesmus, Vomiting, Other, UNREMARKABLE - Genitourinary Genitourinary: absent: As Per HPI, Change in Urinary Stream, Difficulty Urinating, Dysuria, Flank Pain, Hematuria, Pyuria, Nocturia, Urinary Incontinence, Urinary Frequency, Urinary Hesitance, Urinary Urgency, Voiding Freq/Small Amts, Freq UTI, Hx Renal/Bladder Calculi, Hx /Renal Surgery, Bladder Distension, Other, UNREMARKABLE - Reproductive: Male Reproductive:Male: absent: As Per HPI, Prepubesant, Dyspareunia, Genital Lesions , Genital Pruritis, Pelvic Pain, Sexual Dysfunction, Penile Discharge, Genital Odor, Impotence, On ED Medications, Penile Implant, Other, UNREMARKABLE - Musculoskeletal Musculoskeletal: As Par HPI, Abnormal Gait - Integumentary Integumentary: Skin Pain, Wounds - Neurological Neurological: As Per HPI, Abnormal Gait - Psychiatric Psychiatric: absent: Hallucinations, Homicidal Ideation, Hopelessness - Endocrine Endocrine: absent: Heat Intolorance, Increase in Ring/Shoe/Hat Size - Hematologic/Lymphatic Hematologic: absent: Easy Bleeding, Easy Bruising, Lymphadenopathy Past Patient History - Tetanus Immunizations Tetanus Immunization: Unknown - Past Medical History & Family History Past Medical History?: Yes - Past Social History Smoking Status: Never Smoked - CARDIAC Hx Cardiac Disorders: No Hx Congestive Heart Failure: No Hx Hypercholesterolemia: No Hx Hypertension: No - PULMONARY Hx Chronic Obstructive Pulmonary Disease (COPD): No - NEUROLOGICAL HX Cerebrovascular Accident: No - HEENT Hx HEENT Problems: Yes Hx Cataracts: No Hx Deafness: No Hx Difficulty Chewing: No Hx Epistaxis: No Hx Glaucoma: Yes Hx Macular Degeneration: No - RENAL Hx Renal Failure: No - ENDOCRINE/METABOLIC Hx Diabetes Mellitus Type 1: No Hx Diabetes Mellitus Type 2: No Hx Hypothyroidism: No - HEMATOLOGICAL/ONCOLOGICAL Hx Anemia: No Hx Human Immunodeficiency Virus (HIV): No Hx Sickle Cell Disease: No - INTEGUMENTARY Hx Dermatological Problems: No Hx Basil Cell: No Hx Silva: No Hx Cellulitis: Yes (right leg) Hx Eczema: No Hx Melanoma: No Hx Psoriasis: No Hx Squamous Cell: No - MUSCULOSKELETAL/RHEUMATOLOGICAL Hx Arthritis: No Hx Rheumatoid Arthritis: No - GASTROINTESTINAL Hx Crohn's Disease: No Hx Diverticulitis: No Hx Gall Bladder Disease: No Hx Gastritis: No Hx Pancreatitis: No - GENITOURINARY/GYNECOLOGICAL Hx Sexually Transmitted Disorders: No - PSYCHIATRIC Hx Anxiety: Yes Hx Depression: Yes - SURGICAL HISTORY Hx Appendectomy: Yes Hx Carotid Endarterectomy: No Hx Cholecystectomy: No Hx Coronary Artery Bypass Graft: No Hx Coronary Stent: No Hx Tonsillectomy: Yes - ANESTHESIA Hx Anesthesia: Yes Hx Anesthesia Reactions: No Hx Malignant Hyperthermia: No Meds Allergies/Adverse Reactions: Allergies Allergy/AdvReac Type Severity Reaction Status Date / Time Penicillin Allergy HIVES Verified 07/10/15 13:43 - Medications Medications: Current Medications Betamethasone Dipropionate (Diprolene) 1 applic TOP DAILY [facility] Last Admin: 07/20/15 09:41 Dose: 1 applic Donepezil HCl (Aricept) 10 mg PO HS [facility] Last Admin: 07/19/15 23:09 Dose: Not Given Enoxaparin Sodium (Lovenox) 40 mg SC DAILY [facility] Last Admin: 07/20/15 10:30 Dose: 40 mg Gabapentin (Neurontin) 600 mg PO TID [facility] Last Admin: 07/20/15 16:40 Dose: 600 mg Home Med (Carbidopa/Levodopa [Rytary 48.75 Mg-195 Mg]) 3 cap PO TID [facility] Last Admin: 07/20/15 16:40 Dose: 3 cap Midodrine (Proamatine) 5 mg PO TID [facility] Last Admin: 07/20/15 16:40 Dose: 5 mg Quetiapine Fumarate (Seroquel) 50 mg PO HS PRN PRN Reason: Insomnia Last Admin: 07/17/15 21:44 Dose: 50 mg Tramadol HCl (Ultram) 50 mg PO Q6 PRN PRN Reason: Pain, moderate (4-7) Last Admin: 07/17/15 09:25 Dose: 50 mg Physical Exam - Constitutional Appears: Non-toxic, Chronically Ill - Head Exam Head Exam: NORMOCEPHALIC - Eye Exam Eye Exam: absent: Scleral icterus - ENT Exam ENT Exam: Mucous Membranes Dry - Neck Exam Neck exam: Negative for: Lymphadenopathy, Thyromegaly - Respiratory Exam Respiratory Exam: Decreased Breath Sounds, Rhonchi - Cardiovascular Exam Cardiovascular Exam: REGULAR RHYTHM, +S1, +S2 - GI/Abdominal Exam GI & Abdominal Exam: Normal Bowel Sounds, Soft. absent: Tenderness - Rectal Exam Rectal Exam: Deferred - Exam Exam: NORMAL INSPECTION - Extremities Exam Extremities exam: Negative for: pedal edema, tenderness - Back Exam Back exam: absent: CVA tenderness (L), CVA tenderness (R) - Neurological Exam Neurological exam: Alert, Altered, CN II-XII Intact - Psychiatric Exam Psychiatric exam: Flat Affect - Skin Skin Exam: Rash, Vesicles Results - Vital Signs Recent Vital Signs: Last Vital Signs Temp 97.9 F 07/20/15 16:09 Pulse 80 07/20/15 16:09 Resp 20 07/20/15 16:09 BP 115/71 07/20/15 16:09 Pulse Ox 99 07/20/15 16:09 - Labs Result Diagrams: 07/19/15 09:05 07/19/15 04:30 Assessment/Plan (1) Shingles outbreak Current Visit: Yes Status: Acute Comment: has shingles on left chest and left thigh will isolate start Famvir (2) Thigh shingles Current Visit: Yes Status: Acute
--- NOTE | 2015-07-20 21:05 | CP.PCM.PN ---
Subjective - Subjective Subjective: Color Matcher notes appreciated Objective - Vital Signs/Intake and Output Vital Signs (last 24 hours): Vital Signs - 24 hr 07/20/15 07/20/15 08:28 16:09 Temperature 97.3 F L 97.9 F Pulse Rate 62 80 Respiratory 20 20 Rate Blood Pressure 133/79 115/71 O2 Sat by Pulse 99 99 Oximetry - Medications Medications: Current Medications Acyclovir (Zovirax) 800 mg PO TID [facility] Betamethasone Dipropionate (Diprolene) 1 applic TOP DAILY [facility] Last Admin: 07/20/15 09:41 Dose: 1 applic Donepezil HCl (Aricept) 10 mg PO HS [facility] Last Admin: 07/19/15 23:09 Dose: Not Given Enoxaparin Sodium (Lovenox) 40 mg SC DAILY [facility] Last Admin: 07/20/15 10:30 Dose: 40 mg Gabapentin (Neurontin) 600 mg PO TID [facility] Last Admin: 07/20/15 16:40 Dose: 600 mg Home Med (Carbidopa/Levodopa [Rytary 48.75 Mg-195 Mg]) 3 cap PO TID [facility] Last Admin: 07/20/15 16:40 Dose: 3 cap Midodrine (Proamatine) 5 mg PO TID [facility] Last Admin: 07/20/15 16:40 Dose: 5 mg Quetiapine Fumarate (Seroquel) 50 mg PO HS PRN PRN Reason: Insomnia Last Admin: 07/17/15 21:44 Dose: 50 mg Tramadol HCl (Ultram) 50 mg PO Q6 PRN PRN Reason: Pain, moderate (4-7) Last Admin: 07/17/15 09:25 Dose: 50 mg - Respiratory Exam Respiratory Exam: NORMAL BREATHING PATTERN - Cardiovascular Exam Cardiovascular Exam: REGULAR RHYTHM - GI/Abdominal Exam GI & Abdominal Exam: Normal Bowel Sounds Assessment/Plan - Assessment and Plan (Free Text) Assessment: Varicella- Zoster Started on meds 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
[2015-07-21] MEDS: LEVODOPA PO SCH ×3 (09:43→18:08)
[2015-07-21] MEDS: CARBIDOPA PO SCH ×3 (09:43→18:08)
[2015-07-21] MEDS: Enoxaparin 40 mg Syringe SC SCH (09:44)
[2015-07-21] MEDS: Betamethasone Dip 0.05% Oint 45gm TOP SCH (09:45)
--- NOTE | 2015-07-21 13:33 | CP.PCM.PN ---
Subjective - Subjective Subjective: rash about the same still confused and irritable no fever doubt encephalitis but would consider Neuro eval Review of Systems - Review of Systems All systems: reviewed and no additional remarkable complaints except - Constitutional Constitutional: absent: Fever Objective - Vital Signs/Intake and Output Vital Signs (last 24 hours): Vital Signs - 24 hr 07/20/15 07/20/15 07/21/15 16:09 22:30 00:12 Temperature 97.9 F 97.6 F 98.2 F Pulse Rate 80 70 68 Respiratory 20 20 20 Rate Blood Pressure 115/71 144/74 139/75 O2 Sat by Pulse 99 99 Oximetry 07/21/15 09:23 Temperature 96.4 F L Pulse Rate 88 Respiratory 20 Rate Blood Pressure 141/92 H O2 Sat by Pulse 100 Oximetry - Medications Medications: Current Medications Acyclovir (Zovirax) 800 mg PO TID [facility] Last Admin: 07/21/15 09:45 Dose: 800 mg Betamethasone Dipropionate (Diprolene) 1 applic TOP DAILY [facility] Last Admin: 07/21/15 09:45 Dose: 1 applic Donepezil HCl (Aricept) 10 mg PO HS [facility] Last Admin: 07/20/15 21:38 Dose: 10 mg Enoxaparin Sodium (Lovenox) 40 mg SC DAILY [facility] Last Admin: 07/21/15 09:44 Dose: 40 mg Gabapentin (Neurontin) 600 mg PO TID [facility] Last Admin: 07/21/15 09:44 Dose: 600 mg Home Med (Carbidopa/Levodopa [Rytary 48.75 Mg-195 Mg]) 3 cap PO TID [facility] Last Admin: 07/21/15 09:43 Dose: 3 cap Midodrine (Proamatine) 5 mg PO TID [facility] Last Admin: 07/21/15 09:44 Dose: 5 mg Quetiapine Fumarate (Seroquel) 50 mg PO HS PRN PRN Reason: Insomnia Last Admin: 07/17/15 21:44 Dose: 50 mg Tramadol HCl (Ultram) 50 mg PO Q6 PRN PRN Reason: Pain, moderate (4-7) Last Admin: 07/17/15 09:25 Dose: 50 mg - Constitutional Appears: Non-toxic, Chronically Ill - Head Exam Head Exam: NORMOCEPHALIC - Eye Exam Eye Exam: EOMI, PERRL. absent: Scleral icterus - ENT Exam ENT Exam: Mucous Membranes Dry - Neck Exam Neck exam: absent: Lymphadenopathy - Respiratory Exam Respiratory Exam: Decreased Breath Sounds, Rhonchi - Cardiovascular Exam Cardiovascular Exam: REGULAR RHYTHM, +S1, +S2 - GI/Abdominal Exam GI & Abdominal Exam: Normal Bowel Sounds, Soft. absent: Tenderness - Rectal Exam Rectal Exam: Deferred - Exam Exam: NORMAL INSPECTION - Extremities Exam Extremities exam: absent: pedal edema, tenderness - Back Exam Back exam: absent: CVA tenderness (L), CVA tenderness (R) Assessment/Plan (1) Shingles outbreak Current Visit: Yes Status: Acute Comment: has shingles on left chest and left thigh will isolate start Famvir (2) Thigh shingles Current Visit: Yes Status: Acute
--- NOTE | 2015-07-21 18:01 | CP.PCM.PN ---
Subjective - Subjective Subjective: Above noted Objective - Vital Signs/Intake and Output Vital Signs (last 24 hours): Vital Signs - 24 hr 07/20/15 07/21/15 07/21/15 22:30 00:12 09:23 Temperature 97.6 F 98.2 F 96.4 F L Pulse Rate 70 68 88 Respiratory 20 20 20 Rate Blood Pressure 144/74 139/75 141/92 H O2 Sat by Pulse 99 100 Oximetry 07/21/15 17:47 Temperature 97.9 F Pulse Rate 77 Respiratory Rate Blood Pressure 104/56 L O2 Sat by Pulse 99 Oximetry - Medications Medications: Current Medications Acyclovir (Zovirax) 800 mg PO TID [facility] Last Admin: 07/21/15 13:44 Dose: 800 mg Betamethasone Dipropionate (Diprolene) 1 applic TOP DAILY [facility] Last Admin: 07/21/15 09:45 Dose: 1 applic Donepezil HCl (Aricept) 10 mg PO HS [facility] Last Admin: 07/20/15 21:38 Dose: 10 mg Enoxaparin Sodium (Lovenox) 40 mg SC DAILY [facility] Last Admin: 07/21/15 09:44 Dose: 40 mg Gabapentin (Neurontin) 600 mg PO TID [facility] Last Admin: 07/21/15 13:43 Dose: 600 mg Home Med (Carbidopa/Levodopa [Rytary 48.75 Mg-195 Mg]) 3 cap PO TID [facility] Last Admin: 07/21/15 13:42 Dose: 3 cap Midodrine (Proamatine) 5 mg PO TID [facility] Last Admin: 07/21/15 13:43 Dose: 5 mg Quetiapine Fumarate (Seroquel) 50 mg PO HS PRN PRN Reason: Insomnia Last Admin: 07/17/15 21:44 Dose: 50 mg Tramadol HCl (Ultram) 50 mg PO Q6 PRN PRN Reason: Pain, moderate (4-7) Last Admin: 07/17/15 09:25 Dose: 50 mg - Respiratory Exam Respiratory Exam: NORMAL BREATHING PATTERN - Cardiovascular Exam Cardiovascular Exam: REGULAR RHYTHM - GI/Abdominal Exam GI & Abdominal Exam: Normal Bowel Sounds Assessment/Plan - Assessment and Plan (Free Text) Assessment: Varicella- Zoster Cont on meds 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
[2015-07-22] MEDS: LEVODOPA PO SCH ×3 (09:32→16:20)
[2015-07-22] MEDS: CARBIDOPA PO SCH ×3 (09:32→16:20)
[2015-07-22] MEDS: Enoxaparin 40 mg Syringe SC SCH (09:33)
[2015-07-22] MEDS: Betamethasone Dip 0.05% Oint 45gm TOP SCH (09:34)
[2015-07-22 11:59] LABS: RAPID PLASMA REAGIN NONREACTIVE (NONREACTIVE)
[2015-07-22 15:12] LABS: RAPID HIV SCREEN NON REACTIVE (NON REAC)
[2015-07-22] MEDS: Benzocaine/Menthol (Cepacol) Lozenge PO PRN ×3 (16:07→21:23)
--- NOTE | 2015-07-22 16:48 | CP.PCM.PN ---
Subjective - Subjective Subjective: Pt seen and examined. Nurse claimed patient continue to have on and off agitation. Review of Systems - Review of Systems All systems: reviewed and no additional remarkable complaints except Objective - Vital Signs/Intake and Output Vital Signs (last 24 hours): Vital Signs - 24 hr 07/21/15 07/22/15 07/22/15 17:47 00:04 08:06 Temperature 97.9 F 97.2 F L 98 F Pulse Rate 77 51 L 79 Respiratory 20 20 Rate Blood Pressure 104/56 L 109/63 109/55 L O2 Sat by Pulse 99 97 97 Oximetry - Medications Medications: Current Medications Acyclovir (Zovirax) 800 mg PO TID [facility] Last Admin: 07/22/15 16:21 Dose: 800 mg Benzocaine/Menthol (Cepacol Sore Throat) 1 morro PO Q3 PRN PRN Reason: Sore Throat Last Admin: 07/22/15 16:07 Dose: 1 morro Betamethasone Dipropionate (Diprolene) 1 applic TOP DAILY [facility] Last Admin: 07/22/15 09:34 Dose: 1 applic Donepezil HCl (Aricept) 10 mg PO HS [facility] Last Admin: 07/21/15 21:21 Dose: 10 mg Gabapentin (Neurontin) 600 mg PO TID [facility] Last Admin: 07/22/15 16:21 Dose: 600 mg Home Med (Carbidopa/Levodopa [Rytary 48.75 Mg-195 Mg]) 3 cap PO TID [facility] Last Admin: 07/22/15 16:20 Dose: 3 cap Midodrine (Proamatine) 5 mg PO TID [facility] Last Admin: 07/22/15 16:20 Dose: 5 mg Quetiapine Fumarate (Seroquel) 50 mg PO HS PRN PRN Reason: Insomnia Last Admin: 07/22/15 09:33 Dose: 50 mg Tramadol HCl (Ultram) 50 mg PO Q6 PRN PRN Reason: Pain, moderate (4-7) Last Admin: 07/17/15 09:25 Dose: 50 mg - Labs Labs (last 24 hours): Laboratory Results - last 24 hr 07/22/15 05:20 RPR Nonreactive HIV-1 Ab Rapid Screen Non reactive - Constitutional Appears: No Acute Distress - Eye Exam Eye Exam: absent: Scleral icterus - Neck Exam Neck exam: absent: Meningismus - Respiratory Exam Respiratory Exam: Clear to PA & Lateral, NORMAL BREATHING PATTERN. absent: Wheezes, Respiratory Distress - Cardiovascular Exam Cardiovascular Exam: REGULAR RHYTHM, +S1, +S2 - GI/Abdominal Exam GI & Abdominal Exam: Normal Bowel Sounds, Soft. absent: Tenderness - Rectal Exam Rectal Exam: Deferred - Neurological Exam Neurological exam: Alert Assessment/Plan (1) Shingles outbreak Current Visit: Yes Status: Acute Comment: dried papulo-vesicular lesions on left chest and left thigh continue Zovirax on contact isolation (2) Parkinson disease Current Visit: Yes Status: Chronic Priority: Medium Comment: Progressive weakness continue carbidopa/levodopa Dr Rosas on consult
[2015-07-23] MEDS: Benzocaine/Menthol (Cepacol) Lozenge PO PRN ×2 (06:58→22:01)
[2015-07-23] MEDS: LEVODOPA PO SCH ×3 (09:11→17:27)
[2015-07-23] MEDS: CARBIDOPA PO SCH ×3 (09:11→17:27)
[2015-07-23] MEDS: Betamethasone Dip 0.05% Oint 45gm TOP SCH (09:13)
--- NOTE | 2015-07-23 12:08 | CP.PCM.PN ---
Subjective - Subjective Subjective: Pt seen. Denied any complaint. Claimed he has psoriasis and do not have shingles. Review of Systems - Review of Systems All systems: reviewed and no additional remarkable complaints except Objective - Vital Signs/Intake and Output Vital Signs (last 24 hours): Vital Signs - 24 hr 07/22/15 07/23/15 07/23/15 16:49 00:39 07:23 Temperature 97.5 F L 97.2 F L 98.8 F Pulse Rate 92 H 69 68 Respiratory 18 20 Rate Blood Pressure 115/64 95/55 L 130/80 O2 Sat by Pulse 99 96 99 Oximetry - Medications Medications: Current Medications Acyclovir (Zovirax) 800 mg PO TID [facility] Last Admin: 07/23/15 09:10 Dose: 800 mg Benzocaine/Menthol (Cepacol Sore Throat) 1 morro PO Q3 PRN PRN Reason: Sore Throat Last Admin: 07/23/15 06:58 Dose: 1 morro Betamethasone Dipropionate (Diprolene) 1 applic TOP DAILY [facility] Last Admin: 07/23/15 09:13 Dose: 1 applic Donepezil HCl (Aricept) 10 mg PO HS [facility] Last Admin: 07/22/15 21:23 Dose: 10 mg Gabapentin (Neurontin) 600 mg PO TID [facility] Last Admin: 07/23/15 09:10 Dose: 600 mg Home Med (Carbidopa/Levodopa [Rytary 48.75 Mg-195 Mg]) 3 cap PO TID [facility] Last Admin: 07/23/15 09:11 Dose: 3 cap Midodrine (Proamatine) 5 mg PO TID [facility] Last Admin: 07/23/15 09:10 Dose: 5 mg Quetiapine Fumarate (Seroquel) 50 mg PO HS PRN PRN Reason: Insomnia Last Admin: 07/22/15 09:33 Dose: 50 mg Tramadol HCl (Ultram) 50 mg PO Q6 PRN PRN Reason: Pain, moderate (4-7) Last Admin: 07/23/15 04:37 Dose: 50 mg - Labs Labs (last 24 hours): Laboratory Results - last 24 hr 07/22/15 05:20 HIV-1 Ab Rapid Screen Non reactive - Constitutional Appears: No Acute Distress - ENT Exam ENT Exam: Mucous Membranes Moist - Neck Exam Neck exam: absent: Meningismus - Respiratory Exam Respiratory Exam: Clear to PA & Lateral, NORMAL BREATHING PATTERN. absent: Wheezes, Respiratory Distress - Cardiovascular Exam Cardiovascular Exam: REGULAR RHYTHM, +S1, +S2 - GI/Abdominal Exam GI & Abdominal Exam: Soft. absent: Tenderness - Rectal Exam Rectal Exam: Deferred - Neurological Exam Neurological exam: Alert Assessment/Plan (1) Shingles outbreak Current Visit: Yes Status: Acute Comment: dried papulo-vesicular lesions on left chest and left thigh continue Zovirax on contact isolation pt has been on topical Betamethasone sincer Jul 15 probably because of psoriasis will DC topical Betamethasone since pt has Herpes Zoster (2) Parkinson disease Current Visit: Yes Status: Chronic Priority: Medium Comment: Progressive weakness continue carbidopa/levodopa (3) DVT prophylaxis Current Visit: Yes Status: Acute Comment: venodyne boots while in bed monitor low platelets
--- NOTE | 2015-07-23 12:08 | CP.PCM.PN ---
Subjective - Subjective Subjective: continue to have on and off agitation no fever no new lesions claims to have psoriasis . Review of Systems - Review of Systems All systems: reviewed and no additional remarkable complaints except - Constitutional Constitutional: absent: Fever Objective - Vital Signs/Intake and Output Vital Signs (last 24 hours): Vital Signs - 24 hr 07/22/15 07/23/15 07/23/15 16:49 00:39 07:23 Temperature 97.5 F L 97.2 F L 98.8 F Pulse Rate 92 H 69 68 Respiratory 18 20 Rate Blood Pressure 115/64 95/55 L 130/80 O2 Sat by Pulse 99 96 99 Oximetry - Medications Medications: Current Medications Acyclovir (Zovirax) 800 mg PO TID [facility] Last Admin: 07/23/15 09:10 Dose: 800 mg Benzocaine/Menthol (Cepacol Sore Throat) 1 morro PO Q3 PRN PRN Reason: Sore Throat Last Admin: 07/23/15 06:58 Dose: 1 morro Betamethasone Dipropionate (Diprolene) 1 applic TOP DAILY [facility] Last Admin: 07/23/15 09:13 Dose: 1 applic Donepezil HCl (Aricept) 10 mg PO HS [facility] Last Admin: 07/22/15 21:23 Dose: 10 mg Gabapentin (Neurontin) 600 mg PO TID [facility] Last Admin: 07/23/15 09:10 Dose: 600 mg Home Med (Carbidopa/Levodopa [Rytary 48.75 Mg-195 Mg]) 3 cap PO TID [facility] Last Admin: 07/23/15 09:11 Dose: 3 cap Midodrine (Proamatine) 5 mg PO TID [facility] Last Admin: 07/23/15 09:10 Dose: 5 mg Quetiapine Fumarate (Seroquel) 50 mg PO HS PRN PRN Reason: Insomnia Last Admin: 07/22/15 09:33 Dose: 50 mg Tramadol HCl (Ultram) 50 mg PO Q6 PRN PRN Reason: Pain, moderate (4-7) Last Admin: 07/23/15 04:37 Dose: 50 mg - Labs Labs (last 24 hours): Laboratory Results - last 24 hr 07/22/15 05:20 HIV-1 Ab Rapid Screen Non reactive - Constitutional Appears: Non-toxic, Chronically Ill - Head Exam Head Exam: NORMOCEPHALIC - Eye Exam Eye Exam: absent: Scleral icterus - ENT Exam ENT Exam: Mucous Membranes Dry - Neck Exam Neck exam: absent: Lymphadenopathy - Respiratory Exam Respiratory Exam: Decreased Breath Sounds, Rhonchi - Cardiovascular Exam Cardiovascular Exam: REGULAR RHYTHM, +S1, +S2 - GI/Abdominal Exam GI & Abdominal Exam: Normal Bowel Sounds, Soft. absent: Tenderness - Rectal Exam Rectal Exam: Deferred - Exam Exam: NORMAL INSPECTION - Extremities Exam Extremities exam: absent: calf tenderness, pedal edema - Back Exam Back exam: absent: CVA tenderness (L), CVA tenderness (R) - Neurological Exam Neurological exam: Alert, Altered, CN II-XII Intact Assessment/Plan (1) Shingles outbreak Current Visit: Yes Status: Acute Comment: dried papulo-vesicular lesions on left chest and left thigh continue Zovirax on contact isolation (2) Thigh shingles Current Visit: Yes Status: Acute
[2015-07-23] MEDS: Hydrocortisone 0.5% OINT TOP SCH (17:28)
[2015-07-24] MEDS: Benzocaine/Menthol (Cepacol) Lozenge PO PRN ×2 (07:39→10:54)
[2015-07-24] MEDS: CARBIDOPA PO SCH ×3 (09:17→17:21)
[2015-07-24] MEDS: Hydrocortisone 0.5% OINT TOP SCH ×2 (09:17→17:22)
[2015-07-24] MEDS: LEVODOPA PO SCH ×3 (09:17→17:21)
[2015-07-24] MEDS: Enoxaparin 40 mg Syringe SC SCH (10:55)
--- NOTE | 2015-07-24 12:46 | CP.PCM.PN ---
Subjective - Date & Time of Evaluation Date of Evaluation: 07/24/15 Time of Evaluation: 11:00 - Subjective Subjective: no fever rash improving Objective - Vital Signs/Intake and Output Vital Signs (last 24 hours): Temp Pulse Resp BP Pulse Ox 97.7 F 65 20 126/73 97 07/24/15 08:26 07/24/15 08:26 07/24/15 08:26 07/24/15 08:26 07/24/15 08:26 - Medications Medications: Current Medications Acyclovir (Zovirax) 800 mg PO TID [facility] Last Admin: 07/24/15 09:18 Dose: 800 mg Benzocaine/Menthol (Cepacol Sore Throat) 1 morro PO Q3 PRN PRN Reason: Sore Throat Last Admin: 07/24/15 10:54 Dose: 1 morro Donepezil HCl (Aricept) 10 mg PO HS [facility] Last Admin: 07/23/15 22:01 Dose: 10 mg Enoxaparin Sodium (Lovenox) 40 mg SC DAILY [facility] Last Admin: 07/24/15 10:55 Dose: 40 mg Gabapentin (Neurontin) 600 mg PO TID [facility] Last Admin: 07/24/15 09:17 Dose: 600 mg Home Med (Carbidopa/Levodopa [Rytary 48.75 Mg-195 Mg]) 3 cap PO TID [facility] Last Admin: 07/24/15 09:17 Dose: 3 cap Hydrocortisone (Hydrocortisone 0.5%) 1 applic TOP BID [facility] Last Admin: 07/24/15 09:17 Dose: 1 applic Midodrine (Proamatine) 5 mg PO TID [facility] Last Admin: 07/24/15 09:18 Dose: 5 mg Quetiapine Fumarate (Seroquel) 50 mg PO HS PRN PRN Reason: Insomnia Last Admin: 07/23/15 23:36 Dose: 50 mg Tramadol HCl (Ultram) 50 mg PO Q6 PRN PRN Reason: Pain, moderate (4-7) - Labs Labs: 07/19/15 09:05 07/19/15 04:30 - Constitutional Appears: Non-toxic - Head Exam Head Exam: NORMOCEPHALIC - Eye Exam Eye Exam: absent: Scleral icterus Pupil Exam: NORMAL ACCOMODATION, PERRL - ENT Exam ENT Exam: Mucous Membranes Dry - Neck Exam Neck Exam: absent: Lymphadenopathy - Respiratory Exam Respiratory Exam: Decreased Breath Sounds - Cardiovascular Exam Cardiovascular Exam: REGULAR RHYTHM, +S1, +S2 - GI/Abdominal Exam GI & Abdominal Exam: Soft. absent: Tenderness - Rectal Exam Rectal Exam: Deferred - Extremities Exam Extremities Exam: absent: Pedal Edema - Neurological Exam Neurological Exam: Alert, Awake. absent: Oriented x3 Assessment and Plan (1) Shingles outbreak Status: Acute (2) Thigh shingles Status: Acute
--- NOTE | 2015-07-24 21:30 | CP.PCM.PN ---
Subjective - Date & Time of Evaluation Date of Evaluation: 07/24/15 Time of Evaluation: 20:00 - Subjective Subjective: Rash improved More alert Objective - Vital Signs/Intake and Output Vital Signs (last 24 hours): Temp Pulse Resp BP Pulse Ox 97.9 F 61 20 104/62 98 07/24/15 16:36 07/24/15 16:36 07/24/15 16:36 07/24/15 16:36 07/24/15 16:36 - Medications Medications: Current Medications Acyclovir (Zovirax) 800 mg PO TID [facility] Last Admin: 07/24/15 17:23 Dose: 800 mg Benzocaine/Menthol (Cepacol Sore Throat) 1 morro PO Q3 PRN PRN Reason: Sore Throat Last Admin: 07/24/15 10:54 Dose: 1 morro Donepezil HCl (Aricept) 10 mg PO HS [facility] Last Admin: 07/23/15 22:01 Dose: 10 mg Enoxaparin Sodium (Lovenox) 40 mg SC DAILY [facility] Last Admin: 07/24/15 10:55 Dose: 40 mg Gabapentin (Neurontin) 600 mg PO TID [facility] Last Admin: 07/24/15 17:22 Dose: 600 mg Home Med (Carbidopa/Levodopa [Rytary 48.75 Mg-195 Mg]) 3 cap PO TID [facility] Last Admin: 07/24/15 17:21 Dose: 3 cap Hydrocortisone (Hydrocortisone 0.5%) 1 applic TOP BID [facility] Last Admin: 07/24/15 17:22 Dose: 1 applic Midodrine (Proamatine) 5 mg PO TID [facility] Last Admin: 07/24/15 17:22 Dose: 5 mg Quetiapine Fumarate (Seroquel) 50 mg PO HS PRN PRN Reason: Insomnia Last Admin: 07/23/15 23:36 Dose: 50 mg Tramadol HCl (Ultram) 50 mg PO Q6 PRN PRN Reason: Pain, moderate (4-7) - Labs Labs: 07/19/15 09:05 07/19/15 04:30 - Respiratory Exam Respiratory Exam: NORMAL BREATHING PATTERN - Cardiovascular Exam Cardiovascular Exam: REGULAR RHYTHM - GI/Abdominal Exam GI & Abdominal Exam: Normal Bowel Sounds Assessment and Plan - Assessment and Plan (Free Text) Plan: Disposition?? 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
[2015-07-25] MEDS: Enoxaparin 40 mg Syringe SC SCH (09:29)
[2015-07-25] MEDS: LEVODOPA PO SCH ×3 (09:29→18:32)
[2015-07-25] MEDS: CARBIDOPA PO SCH ×3 (09:29→18:32)
[2015-07-25] MEDS: Hydrocortisone 0.5% OINT TOP SCH ×2 (09:30→18:32)
--- NOTE | 2015-07-25 13:57 | CP.PCM.PN ---
Subjective - Date & Time of Evaluation Date of Evaluation: 07/25/15 Time of Evaluation: 13:55 - Subjective Subjective: Patient is seen sitting in bed in [facility]. His only complaint at this time is that he is cold. He denies pain or itching in his RLE, just mentions that it feels numb. He denies F/C/N/V/SOB/CP. Patient witnessed using profanity towards nursing staff while attempting to give his medications. Objective - Vital Signs/Intake and Output Vital Signs (last 24 hours): Temp Pulse Resp BP Pulse Ox 97.9 F 61 20 104/62 98 07/24/15 16:36 07/24/15 16:36 07/24/15 16:36 07/24/15 16:36 07/24/15 16:36 - Medications Medications: Current Medications Acyclovir (Zovirax) 800 mg PO TID [facility] Last Admin: 07/25/15 13:40 Dose: 800 mg Benzocaine/Menthol (Cepacol Sore Throat) 1 morro PO Q3 PRN PRN Reason: Sore Throat Last Admin: 07/24/15 10:54 Dose: 1 morro Donepezil HCl (Aricept) 10 mg PO HS [facility] Last Admin: 07/24/15 22:18 Dose: 10 mg Enoxaparin Sodium (Lovenox) 40 mg SC DAILY [facility] Last Admin: 07/25/15 09:29 Dose: 40 mg Gabapentin (Neurontin) 600 mg PO TID [facility] Last Admin: 07/25/15 13:39 Dose: 600 mg Home Med (Carbidopa/Levodopa [Rytary 48.75 Mg-195 Mg]) 3 cap PO TID [facility] Last Admin: 07/25/15 13:38 Dose: 3 cap Hydrocortisone (Hydrocortisone 0.5%) 1 applic TOP BID [facility] Last Admin: 07/25/15 09:30 Dose: 1 applic Midodrine (Proamatine) 5 mg PO TID [facility] Last Admin: 07/25/15 13:40 Dose: 5 mg Quetiapine Fumarate (Seroquel) 50 mg PO HS PRN PRN Reason: Insomnia Last Admin: 07/24/15 22:19 Dose: 50 mg Tramadol HCl (Ultram) 50 mg PO Q6 PRN PRN Reason: Pain, moderate (4-7) - Labs Labs: 07/19/15 09:05 07/19/15 04:30 - Constitutional Appears: No Acute Distress - Extremities Exam Additional comments: RLE exam: Dermatological: Skin is hyperpigmented from ankle to mid-leg with healed superficial abrasions, no drainage, no current openings, no erythema, no warmth. Vascular: DP/PT pulses 2/4, CFT<3 sec, temperature gradient unremarkable. Neurological: Gross sensation intact. 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 - Neurological Exam Neurological Exam: Alert, Oriented x3 - Psychiatric Exam Psychiatric exam: Agitated Assessment and Plan - Assessment and Plan (Free Text) Assessment: 85 y/o male with healed superficial lesions 2/2 stasis dermatitis. Plan: -evaluated and treated with all questions addressed and answered. -area left undressed, does not require daily dressing changes. -educated on nature of symptoms and potential of new lesions. -advised not to cause mechanical trauma to area -stable from podiatry standpoint, please re-consult as necessary. -thank you for allowing us to participate in the care of your patient.
--- NOTE | 2015-07-25 21:05 | CP.PCM.PN ---
Subjective - Date & Time of Evaluation Date of Evaluation: 07/25/15 Time of Evaluation: 20:00 - Subjective Subjective: No change in status Objective - Vital Signs/Intake and Output Vital Signs (last 24 hours): Temp Pulse Resp BP Pulse Ox 97.3 F L 58 L 20 104/63 96 07/25/15 16:00 07/25/15 16:00 07/24/15 16:36 07/25/15 16:00 07/25/15 16:00 - Medications Medications: Current Medications Acyclovir (Zovirax) 800 mg PO TID [facility] Last Admin: 07/25/15 18:33 Dose: 800 mg Benzocaine/Menthol (Cepacol Sore Throat) 1 morro PO Q3 PRN PRN Reason: Sore Throat Last Admin: 07/24/15 10:54 Dose: 1 morro Donepezil HCl (Aricept) 10 mg PO HS [facility] Last Admin: 07/24/15 22:18 Dose: 10 mg Enoxaparin Sodium (Lovenox) 40 mg SC DAILY [facility] Last Admin: 07/25/15 09:29 Dose: 40 mg Gabapentin (Neurontin) 600 mg PO TID [facility] Last Admin: 07/25/15 18:33 Dose: 600 mg Home Med (Carbidopa/Levodopa [Rytary 48.75 Mg-195 Mg]) 3 cap PO TID [facility] Last Admin: 07/25/15 18:32 Dose: 3 cap Hydrocortisone (Hydrocortisone 0.5%) 1 applic TOP BID [facility] Last Admin: 07/25/15 18:32 Dose: 1 applic Midodrine (Proamatine) 5 mg PO TID [facility] Last Admin: 07/25/15 18:33 Dose: 5 mg Quetiapine Fumarate (Seroquel) 50 mg PO HS PRN PRN Reason: Insomnia Last Admin: 07/24/15 22:19 Dose: 50 mg Tramadol HCl (Ultram) 50 mg PO Q6 PRN PRN Reason: Pain, moderate (4-7) - Labs Labs: 07/19/15 09:05 07/19/15 04:30 - Respiratory Exam Respiratory Exam: NORMAL BREATHING PATTERN - Cardiovascular Exam Cardiovascular Exam: REGULAR RHYTHM - GI/Abdominal Exam GI & Abdominal Exam: Normal Bowel Sounds Assessment and Plan - Assessment and Plan (Free Text) Assessment: Disposition?? 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
[2015-07-26] MEDS: Enoxaparin 40 mg Syringe SC SCH (10:54)
[2015-07-26] MEDS: CARBIDOPA PO SCH ×2 (10:55→18:35)
[2015-07-26] MEDS: LEVODOPA PO SCH ×2 (10:55→18:35)
[2015-07-26] MEDS: Hydrocortisone 0.5% OINT TOP SCH ×2 (10:57→17:15)
--- NOTE | 2015-07-26 12:32 | CP.PCM.PN ---
Subjective - Date & Time of Evaluation Date of Evaluation: 07/26/15 Time of Evaluation: 11:00 - Subjective Subjective: RASH IMPROVED LESS AGITATED Objective - Vital Signs/Intake and Output Vital Signs (last 24 hours): Temp Pulse Resp BP Pulse Ox 97.7 F 75 20 145/72 95 07/26/15 08:06 07/26/15 08:06 07/26/15 08:06 07/26/15 08:06 07/26/15 08:06 - Medications Medications: Current Medications Acyclovir (Zovirax) 800 mg PO TID [facility] Last Admin: 07/26/15 10:56 Dose: 800 mg Benzocaine/Menthol (Cepacol Sore Throat) 1 morro PO Q3 PRN PRN Reason: Sore Throat Last Admin: 07/24/15 10:54 Dose: 1 morro Donepezil HCl (Aricept) 10 mg PO HS [facility] Last Admin: 07/25/15 21:14 Dose: 10 mg Enoxaparin Sodium (Lovenox) 40 mg SC DAILY [facility] Last Admin: 07/26/15 10:54 Dose: 40 mg Gabapentin (Neurontin) 600 mg PO TID [facility] Last Admin: 07/26/15 10:55 Dose: 600 mg Home Med (Carbidopa/Levodopa [Rytary 48.75 Mg-195 Mg]) 3 cap PO TID [facility] Last Admin: 07/26/15 10:55 Dose: 3 cap Hydrocortisone (Hydrocortisone 0.5%) 1 applic TOP BID [facility] Last Admin: 07/26/15 10:57 Dose: 1 applic Midodrine (Proamatine) 5 mg PO TID [facility] Last Admin: 07/26/15 10:55 Dose: 5 mg Quetiapine Fumarate (Seroquel) 50 mg PO HS PRN PRN Reason: Insomnia Last Admin: 07/26/15 10:55 Dose: 50 mg Tramadol HCl (Ultram) 50 mg PO Q6 PRN PRN Reason: Pain, moderate (4-7) Last Admin: 07/25/15 23:54 Dose: 50 mg - Labs Labs: 07/19/15 09:05 07/19/15 04:30 - Constitutional Appears: Non-toxic, Chronically Ill - Head Exam Head Exam: NORMOCEPHALIC - Eye Exam Eye Exam: absent: Scleral icterus - ENT Exam ENT Exam: Mucous Membranes Dry - Neck Exam Neck Exam: absent: Lymphadenopathy - Respiratory Exam Respiratory Exam: Decreased Breath Sounds, Rhonchi - Cardiovascular Exam Cardiovascular Exam: REGULAR RHYTHM, +S1, +S2 - GI/Abdominal Exam GI & Abdominal Exam: Soft. absent: Tenderness - Rectal Exam Rectal Exam: Deferred - Exam Exam: NORMAL INSPECTION - Extremities Exam Extremities Exam: absent: Calf Tenderness, Pedal Edema - Back Exam Back Exam: absent: CVA tenderness (L), CVA tenderness (R), paraspinal tenderness - Neurological Exam Neurological Exam: Alert, Awake Assessment and Plan (1) Shingles outbreak Status: Acute (2) Thigh shingles Status: Acute
--- NOTE | 2015-07-26 16:33 | CP.PCM.PN ---
Subjective - Date & Time of Evaluation Date of Evaluation: 07/26/15 Time of Evaluation: 20:00 - Subjective Subjective: Resting in bed Objective - Vital Signs/Intake and Output Vital Signs (last 24 hours): Temp Pulse Resp BP Pulse Ox 97.7 F 75 20 145/72 95 07/26/15 08:06 07/26/15 08:06 07/26/15 08:06 07/26/15 08:06 07/26/15 08:06 - Medications Medications: Current Medications Acyclovir (Zovirax) 800 mg PO TID [facility] Last Admin: 07/26/15 13:12 Dose: 800 mg Benzocaine/Menthol (Cepacol Sore Throat) 1 morro PO Q3 PRN PRN Reason: Sore Throat Last Admin: 07/24/15 10:54 Dose: 1 morro Donepezil HCl (Aricept) 10 mg PO HS [facility] Last Admin: 07/25/15 21:14 Dose: 10 mg Enoxaparin Sodium (Lovenox) 40 mg SC DAILY [facility] Last Admin: 07/26/15 10:54 Dose: 40 mg Gabapentin (Neurontin) 600 mg PO TID [facility] Last Admin: 07/26/15 13:12 Dose: 600 mg Home Med (Carbidopa/Levodopa [Rytary 48.75 Mg-195 Mg]) 3 cap PO TID [facility] Last Admin: 07/26/15 10:55 Dose: 3 cap Hydrocortisone (Hydrocortisone 0.5%) 1 applic TOP BID [facility] Last Admin: 07/26/15 10:57 Dose: 1 applic Midodrine (Proamatine) 5 mg PO TID [facility] Last Admin: 07/26/15 13:12 Dose: 5 mg Quetiapine Fumarate (Seroquel) 50 mg PO HS PRN PRN Reason: Insomnia Last Admin: 07/26/15 10:55 Dose: 50 mg Tramadol HCl (Ultram) 50 mg PO Q6 PRN PRN Reason: Pain, moderate (4-7) Last Admin: 07/25/15 23:54 Dose: 50 mg - Labs Labs: 07/19/15 09:05 07/19/15 04:30 - Respiratory Exam Respiratory Exam: NORMAL BREATHING PATTERN - Cardiovascular Exam Cardiovascular Exam: REGULAR RHYTHM - GI/Abdominal Exam GI & Abdominal Exam: Normal Bowel Sounds Assessment and Plan - Assessment and Plan (Free Text) Assessment: Disposition?? 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
[2015-07-27 10:10] LABS: HEMOGLOBIN 13.1 g/dL (12.0-18.0); MEAN CELL VOLUME 94.3 fl (80.0-94.0); MEAN CORPUSCULAR HEMOGLOBIN 29.7 pg (27.0-31.0); MEAN CORPUSCULAR HGB CONC 31.5 g/dL (33.0-37.0); RBC 4.41 Mil/uL (4.40-5.90); RED CELL DISTRIBUTION WIDTH 13.7 % (11.5-14.5); WHITE BLOOD COUNT 5.9 K/uL (4.8-10.8)
[2015-07-27] MEDS: CARBIDOPA PO SCH ×4 (10:24→17:10)
[2015-07-27] MEDS: LEVODOPA PO SCH ×4 (10:24→17:10)
[2015-07-27 10:28] LABS: BLOOD UREA NITROGEN 25 mg/dl (9-20); CALCIUM 9.5 mg/dL (8.4-10.2); GFR AFRICAN-AMERICAN > 60; GFR NON-AFRICAN AMERICAN > 60
[2015-07-27] MEDS: Hydrocortisone 0.5% OINT TOP SCH ×2 (10:31→17:17)
[2015-07-27] MEDS: Enoxaparin 40 mg Syringe SC SCH (10:32)
--- NOTE | 2015-07-27 18:39 | CP.PCM.PN ---
Subjective - Date & Time of Evaluation Date of Evaluation: 07/27/15 Time of Evaluation: 20:00 - Subjective Subjective: No change in status D/W family LTC or 24 hr care Objective - Vital Signs/Intake and Output Vital Signs (last 24 hours): Temp Pulse Resp BP Pulse Ox 96.6 F L 76 20 145/77 97 07/27/15 17:00 07/27/15 17:00 07/27/15 17:00 07/27/15 17:00 07/27/15 17:00 - Medications Medications: Current Medications Acyclovir (Zovirax) 800 mg PO TID [facility] Last Admin: 07/27/15 17:12 Dose: 800 mg Benzocaine/Menthol (Cepacol Sore Throat) 1 morro PO Q3 PRN PRN Reason: Sore Throat Last Admin: 07/24/15 10:54 Dose: 1 morro Donepezil HCl (Aricept) 10 mg PO HS [facility] Last Admin: 07/26/15 21:12 Dose: 10 mg Enoxaparin Sodium (Lovenox) 40 mg SC DAILY [facility] Last Admin: 07/27/15 10:32 Dose: 40 mg Gabapentin (Neurontin) 600 mg PO TID [facility] Last Admin: 07/27/15 17:11 Dose: 600 mg Home Med (Carbidopa/Levodopa [Rytary 48.75 Mg-195 Mg]) 3 cap PO TID [facility] Last Admin: 07/27/15 17:10 Dose: 3 cap Hydrocortisone (Hydrocortisone 0.5%) 1 applic TOP BID [facility] Last Admin: 07/27/15 17:17 Dose: 1 applic Midodrine (Proamatine) 5 mg PO TID [facility] Last Admin: 07/27/15 17:11 Dose: 5 mg Quetiapine Fumarate (Seroquel) 50 mg PO HS PRN PRN Reason: Insomnia Last Admin: 07/26/15 10:55 Dose: 50 mg Tramadol HCl (Ultram) 50 mg PO Q6 PRN PRN Reason: Pain, moderate (4-7) Last Admin: 07/25/15 23:54 Dose: 50 mg - Labs Labs: 07/27/15 09:45 07/27/15 09:45 - Respiratory Exam Respiratory Exam: NORMAL BREATHING PATTERN - Cardiovascular Exam Cardiovascular Exam: REGULAR RHYTHM - GI/Abdominal Exam GI & Abdominal Exam: Normal Bowel Sounds Assessment and Plan - Assessment and Plan (Free Text) Assessment: Disposition?? 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
[2015-07-28] MEDS: Enoxaparin 40 mg Syringe SC SCH (09:00)
[2015-07-28] MEDS: CARBIDOPA PO SCH ×3 (09:30→17:01)
[2015-07-28] MEDS: LEVODOPA PO SCH ×3 (09:30→17:01)
[2015-07-28] MEDS: Hydrocortisone 0.5% OINT TOP SCH ×2 (12:47→17:01)
--- NOTE | 2015-07-28 15:21 | CP.PCM.PN ---
Subjective - Date & Time of Evaluation Date of Evaluation: 07/28/15 Time of Evaluation: 20:00 - Subjective Subjective: More alert today Objective - Vital Signs/Intake and Output Vital Signs (last 24 hours): Temp Pulse Resp BP Pulse Ox 97.7 F 77 20 148/95 H 98 07/28/15 08:15 07/28/15 08:15 07/28/15 08:15 07/28/15 08:15 07/28/15 08:15 - Medications Medications: Current Medications Acyclovir (Zovirax) 800 mg PO TID [facility] Last Admin: 07/28/15 12:40 Dose: 800 mg Benzocaine/Menthol (Cepacol Sore Throat) 1 morro PO Q3 PRN PRN Reason: Sore Throat Last Admin: 07/24/15 10:54 Dose: 1 morro Donepezil HCl (Aricept) 10 mg PO HS [facility] Last Admin: 07/27/15 21:15 Dose: 10 mg Enoxaparin Sodium (Lovenox) 40 mg SC DAILY [facility] Last Admin: 07/28/15 09:00 Dose: 40 mg Gabapentin (Neurontin) 600 mg PO TID [facility] Last Admin: 07/28/15 12:40 Dose: 600 mg Home Med (Carbidopa/Levodopa [Rytary 48.75 Mg-195 Mg]) 3 cap PO TID [facility] Last Admin: 07/28/15 12:39 Dose: 3 cap Hydrocortisone (Hydrocortisone 0.5%) 1 applic TOP BID [facility] Last Admin: 07/28/15 12:47 Dose: 1 applic Midodrine (Proamatine) 5 mg PO TID [facility] Last Admin: 07/28/15 12:45 Dose: 5 mg Quetiapine Fumarate (Seroquel) 50 mg PO HS PRN PRN Reason: Insomnia Last Admin: 07/26/15 10:55 Dose: 50 mg Tramadol HCl (Ultram) 50 mg PO Q6 PRN PRN Reason: Pain, moderate (4-7) Last Admin: 07/25/15 23:54 Dose: 50 mg - Labs Labs: 07/27/15 09:45 07/27/15 09:45 - Respiratory Exam Respiratory Exam: NORMAL BREATHING PATTERN - Cardiovascular Exam Cardiovascular Exam: REGULAR RHYTHM - GI/Abdominal Exam GI & Abdominal Exam: Normal Bowel Sounds Assessment and Plan - Assessment and Plan (Free Text) Assessment: Disposition?? 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
[2015-07-29] MEDS: LEVODOPA PO SCH ×3 (09:50→16:12)
[2015-07-29] MEDS: Hydrocortisone 0.5% OINT TOP SCH ×2 (09:50→16:14)
[2015-07-29] MEDS: CARBIDOPA PO SCH ×3 (09:50→16:12)
[2015-07-29] MEDS: Enoxaparin 40 mg Syringe SC SCH (09:55)
--- NOTE | 2015-07-29 10:00 | CP.PCM.PN ---
Subjective - Date & Time of Evaluation Date of Evaluation: 07/29/15 Time of Evaluation: 10:00 - Subjective Subjective: Patient seen and examined. Sitting in chair in NAD.Denies any pain.Hemodynamically stable, afebrile. Objective - Vital Signs/Intake and Output Vital Signs (last 24 hours): Temp Pulse Resp BP Pulse Ox 97.3 F L 68 20 141/99 H 99 07/29/15 08:27 07/29/15 08:27 07/29/15 08:27 07/29/15 08:27 07/29/15 08:27 - Medications Medications: Current Medications Acyclovir (Zovirax) 800 mg PO TID [facility] Last Admin: 07/28/15 17:02 Dose: 800 mg Benzocaine/Menthol (Cepacol Sore Throat) 1 morro PO Q3 PRN PRN Reason: Sore Throat Last Admin: 07/24/15 10:54 Dose: 1 morro Donepezil HCl (Aricept) 10 mg PO HS [facility] Last Admin: 07/28/15 21:16 Dose: 10 mg Enoxaparin Sodium (Lovenox) 40 mg SC DAILY [facility] Last Admin: 07/28/15 09:00 Dose: 40 mg Gabapentin (Neurontin) 600 mg PO TID [facility] Last Admin: 07/28/15 17:01 Dose: 600 mg Home Med (Carbidopa/Levodopa [Rytary 48.75 Mg-195 Mg]) 3 cap PO TID [facility] Last Admin: 07/28/15 17:01 Dose: 3 cap Hydrocortisone (Hydrocortisone 0.5%) 1 applic TOP BID [facility] Last Admin: 07/28/15 17:01 Dose: 1 applic Midodrine (Proamatine) 5 mg PO TID [facility] Last Admin: 07/28/15 17:02 Dose: 5 mg Quetiapine Fumarate (Seroquel) 50 mg PO HS PRN PRN Reason: Insomnia Last Admin: 07/26/15 10:55 Dose: 50 mg Tramadol HCl (Ultram) 50 mg PO Q6 PRN PRN Reason: Pain, moderate (4-7) Last Admin: 07/25/15 23:54 Dose: 50 mg - Labs Labs: 07/27/15 09:45 07/27/15 09:45 - Constitutional Appears: Well, Non-toxic, Other (elderly male in NAD ) - Head Exam Head Exam: ATRAUMATIC, NORMOCEPHALIC - Eye Exam Eye Exam: EOMI, Normal appearance, PERRL Pupil Exam: NORMAL ACCOMODATION - ENT Exam ENT Exam: Mucous Membranes Moist, Normal Exam - Neck Exam Neck Exam: Full ROM, Normal Inspection - Respiratory Exam Respiratory Exam: Clear to Ausculation Bilateral, NORMAL BREATHING PATTERN. absent: Wheezes - Cardiovascular Exam Cardiovascular Exam: REGULAR RHYTHM, RRR. absent: JVD - GI/Abdominal Exam GI & Abdominal Exam: Normal Bowel Sounds - Rectal Exam Rectal Exam: Deferred - Extremities Exam Extremities Exam: Full ROM, Normal Capillary Refill, Normal Inspection - Back Exam Back Exam: NORMAL INSPECTION - Neurological Exam Neurological Exam: Alert, Awake, CN II-XII Intact - Psychiatric Exam Psychiatric exam: Depressed, Flat Affect - Skin Skin Exam: Dry, Warm Assessment and Plan (1) Fall Assessment & Plan: with generalized muscle weakness PT consulted Will need placement to [facility] off 1:1 Status: Acute (2) Shingles outbreak Assessment & Plan: improved Isolation discontinued Continue Zovirax and topical hydrocortizone ID was consulted Pain management Status: Acute (3) Parkinson disease Assessment & Plan: Continue Carbidopa/Levodopa Status: Chronic (4) Thrombocytopenia Assessment & Plan: unclear etiology Stable Status: Chronic (5) Depression Assessment & Plan: Continue Seroquel Status: Acute (6) Hypotension Assessment & Plan: Continue Midodrine Status: Acute (7) DVT prophylaxis Assessment & Plan: on Lovenox Status: Acute
[2015-07-30] MEDS: CARBIDOPA PO SCH ×3 (09:21→16:36)
[2015-07-30] MEDS: LEVODOPA PO SCH ×3 (09:21→16:36)
[2015-07-30] MEDS: Hydrocortisone 0.5% OINT TOP SCH ×2 (09:22→16:37)
--- NOTE | 2015-07-30 12:06 | CP.PCM.PN ---
Subjective - Date & Time of Evaluation Date of Evaluation: 07/30/15 Time of Evaluation: 11:00 - Subjective Subjective: awake alert nad rash improved Objective - Vital Signs/Intake and Output Vital Signs (last 24 hours): Temp Pulse Resp BP Pulse Ox 97.2 F L 82 20 138/68 98 07/30/15 09:00 07/30/15 09:00 07/30/15 09:00 07/30/15 09:00 07/30/15 09:00 - Medications Medications: Current Medications Acyclovir (Zovirax) 800 mg PO TID [facility] Last Admin: 07/30/15 09:21 Dose: 800 mg Benzocaine/Menthol (Cepacol Sore Throat) 1 morro PO Q3 PRN PRN Reason: Sore Throat Last Admin: 07/24/15 10:54 Dose: 1 morro Donepezil HCl (Aricept) 10 mg PO HS [facility] Last Admin: 07/29/15 21:44 Dose: 10 mg Gabapentin (Neurontin) 600 mg PO TID [facility] Last Admin: 07/30/15 09:21 Dose: 600 mg Home Med (Carbidopa/Levodopa [Rytary 48.75 Mg-195 Mg]) 3 cap PO TID [facility] Last Admin: 07/30/15 09:21 Dose: 3 cap Hydrocortisone (Hydrocortisone 0.5%) 1 applic TOP BID [facility] Last Admin: 07/30/15 09:22 Dose: 1 applic Midodrine (Proamatine) 5 mg PO TID [facility] Last Admin: 07/30/15 09:21 Dose: 5 mg Quetiapine Fumarate (Seroquel) 50 mg PO HS PRN PRN Reason: Insomnia Last Admin: 07/30/15 09:21 Dose: 50 mg Tramadol HCl (Ultram) 50 mg PO Q6 PRN PRN Reason: Pain, moderate (4-7) Last Admin: 07/25/15 23:54 Dose: 50 mg - Labs Labs: 07/27/15 09:45 07/27/15 09:45 - Constitutional Appears: Non-toxic, Chronically Ill - Head Exam Head Exam: NORMOCEPHALIC - Eye Exam Eye Exam: absent: Scleral icterus - Neck Exam Neck Exam: absent: Lymphadenopathy - Respiratory Exam Respiratory Exam: Decreased Breath Sounds, Clear to Ausculation Bilateral - Cardiovascular Exam Cardiovascular Exam: REGULAR RHYTHM, +S1, +S2 - GI/Abdominal Exam GI & Abdominal Exam: Distended, Soft. absent: Tenderness - Rectal Exam Rectal Exam: Deferred - Exam Exam: NORMAL INSPECTION External exam: NORMAL EXTERNAL EXAM - Extremities Exam Extremities Exam: absent: Calf Tenderness, Pedal Edema, Tenderness - Back Exam Back Exam: absent: CVA tenderness (L), CVA tenderness (R) - Neurological Exam Neurological Exam: Alert, Altered, CN II-XII Intact Assessment and Plan (1) Shingles outbreak Status: Acute (2) Thigh shingles Status: Acute
--- NOTE | 2015-07-30 12:40 | CP.PCM.PN ---
Subjective - Date & Time of Evaluation Date of Evaluation: 07/30/15 Time of Evaluation: 13:10 Objective - Vital Signs/Intake and Output Vital Signs (last 24 hours): Temp Pulse Resp BP Pulse Ox 97.2 F L 82 20 138/68 98 07/30/15 09:00 07/30/15 09:00 07/30/15 09:00 07/30/15 09:00 07/30/15 09:00 - Medications Medications: Current Medications Acyclovir (Zovirax) 800 mg PO TID [facility] Last Admin: 07/30/15 09:21 Dose: 800 mg Benzocaine/Menthol (Cepacol Sore Throat) 1 morro PO Q3 PRN PRN Reason: Sore Throat Last Admin: 07/24/15 10:54 Dose: 1 morro Donepezil HCl (Aricept) 10 mg PO HS [facility] Last Admin: 07/29/15 21:44 Dose: 10 mg Gabapentin (Neurontin) 600 mg PO TID [facility] Last Admin: 07/30/15 09:21 Dose: 600 mg Home Med (Carbidopa/Levodopa [Rytary 48.75 Mg-195 Mg]) 3 cap PO TID [facility] Last Admin: 07/30/15 09:21 Dose: 3 cap Hydrocortisone (Hydrocortisone 0.5%) 1 applic TOP BID [facility] Last Admin: 07/30/15 09:22 Dose: 1 applic Midodrine (Proamatine) 5 mg PO TID [facility] Last Admin: 07/30/15 09:21 Dose: 5 mg Quetiapine Fumarate (Seroquel) 50 mg PO HS PRN PRN Reason: Insomnia Last Admin: 07/30/15 09:21 Dose: 50 mg Tramadol HCl (Ultram) 50 mg PO Q6 PRN PRN Reason: Pain, moderate (4-7) Last Admin: 07/25/15 23:54 Dose: 50 mg - Labs Labs: 07/27/15 09:45 07/27/15 09:45
--- NOTE | 2015-07-30 12:41 | CP.PCM.PN ---
Subjective - Date & Time of Evaluation Date of Evaluation: 07/30/15 Time of Evaluation: 19:30 - Subjective Subjective: Patient states he is feeling "bad". No acute events overnight Objective - Vital Signs/Intake and Output Vital Signs (last 24 hours): Temp Pulse Resp BP Pulse Ox 97.2 F L 82 20 138/68 98 07/30/15 09:00 07/30/15 09:00 07/30/15 09:00 07/30/15 09:00 07/30/15 09:00 - Medications Medications: Current Medications Acyclovir (Zovirax) 800 mg PO TID [facility] Last Admin: 07/30/15 09:21 Dose: 800 mg Benzocaine/Menthol (Cepacol Sore Throat) 1 morro PO Q3 PRN PRN Reason: Sore Throat Last Admin: 07/24/15 10:54 Dose: 1 morro Donepezil HCl (Aricept) 10 mg PO HS [facility] Last Admin: 07/29/15 21:44 Dose: 10 mg Gabapentin (Neurontin) 600 mg PO TID [facility] Last Admin: 07/30/15 09:21 Dose: 600 mg Home Med (Carbidopa/Levodopa [Rytary 48.75 Mg-195 Mg]) 3 cap PO TID [facility] Last Admin: 07/30/15 09:21 Dose: 3 cap Hydrocortisone (Hydrocortisone 0.5%) 1 applic TOP BID [facility] Last Admin: 07/30/15 09:22 Dose: 1 applic Midodrine (Proamatine) 5 mg PO TID [facility] Last Admin: 07/30/15 09:21 Dose: 5 mg Quetiapine Fumarate (Seroquel) 50 mg PO HS PRN PRN Reason: Insomnia Last Admin: 07/30/15 09:21 Dose: 50 mg Tramadol HCl (Ultram) 50 mg PO Q6 PRN PRN Reason: Pain, moderate (4-7) Last Admin: 07/25/15 23:54 Dose: 50 mg - Labs Labs: 07/27/15 09:45 07/27/15 09:45 - Constitutional Appears: Well, Non-toxic, No Acute Distress - Head Exam Head Exam: ATRAUMATIC, NORMAL INSPECTION, NORMOCEPHALIC - Respiratory Exam Respiratory Exam: Clear to Ausculation Bilateral, NORMAL BREATHING PATTERN. absent: Rales, Wheezes, Respiratory Distress, Stridor - Cardiovascular Exam Cardiovascular Exam: REGULAR RHYTHM, RRR, +S1, +S2 - GI/Abdominal Exam GI & Abdominal Exam: Soft, Normal Bowel Sounds - Neurological Exam Neurological Exam: Alert, Awake, CN II-XII Intact - Psychiatric Exam Psychiatric exam: Flat Affect, Normal Mood Additional comments: flat depressed affect Assessment and Plan (1) Fall Assessment & Plan: with generalized muscle weakness PT consulted Will need placement to [facility] off 1:1 Status: Acute (2) Shingles outbreak Assessment & Plan: improved Isolation discontinued Continue Zovirax and topical hydrocortizone ID was consulted Pain management Status: Acute (3) Parkinson disease Assessment & Plan: Continue Carbidopa/Levodopa Status: Chronic (4) Thrombocytopenia Assessment & Plan: unclear etiology Stable Status: Chronic (5) Depression Assessment & Plan: Continue Seroquel Status: Acute (6) Hypotension Assessment & Plan: Continue Midodrine Status: Acute (7) DVT prophylaxis Assessment & Plan: on Lovenox Status: Acute
[2015-07-31] MEDS: LEVODOPA PO SCH ×3 (09:25→16:47)
[2015-07-31] MEDS: CARBIDOPA PO SCH ×3 (09:25→16:47)
[2015-07-31] MEDS: Hydrocortisone 0.5% OINT TOP SCH ×2 (09:27→16:47)
--- NOTE | 2015-07-31 19:56 | CP.PCM.PN ---
Subjective - Date & Time of Evaluation Date of Evaluation: 07/31/15 Time of Evaluation: 22:22 - Subjective Subjective: Above appreciated Objective - Vital Signs/Intake and Output Vital Signs (last 24 hours): Temp Pulse Resp BP Pulse Ox 97.5 F L 59 L 20 110/57 L 97 07/31/15 16:34 07/31/15 16:34 07/31/15 16:34 07/31/15 07:48 07/31/15 16:34 - Medications Medications: Current Medications Acyclovir (Zovirax) 800 mg PO TID [facility] Last Admin: 07/31/15 16:49 Dose: 800 mg Benzocaine/Menthol (Cepacol Sore Throat) 1 morro PO Q3 PRN PRN Reason: Sore Throat Last Admin: 07/24/15 10:54 Dose: 1 morro Donepezil HCl (Aricept) 10 mg PO HS [facility] Last Admin: 07/30/15 21:24 Dose: 10 mg Enoxaparin Sodium (Lovenox) 40 mg SC DAILY [facility] Gabapentin (Neurontin) 600 mg PO TID [facility] Last Admin: 07/31/15 16:48 Dose: 600 mg Home Med (Carbidopa/Levodopa [Rytary 48.75 Mg-195 Mg]) 3 cap PO TID [facility] Last Admin: 07/31/15 16:47 Dose: 3 cap Hydrocortisone (Hydrocortisone 0.5%) 1 applic TOP BID [facility] Last Admin: 07/31/15 16:47 Dose: 1 applic Midodrine (Proamatine) 5 mg PO TID [facility] Last Admin: 07/31/15 16:48 Dose: 5 mg Quetiapine Fumarate (Seroquel) 50 mg PO HS PRN PRN Reason: Insomnia Last Admin: 07/30/15 09:21 Dose: 50 mg Tramadol HCl (Ultram) 50 mg PO Q6 PRN PRN Reason: Pain, moderate (4-7) - Labs Labs: 07/27/15 09:45 07/27/15 09:45 - Respiratory Exam Respiratory Exam: NORMAL BREATHING PATTERN - Cardiovascular Exam Cardiovascular Exam: REGULAR RHYTHM - GI/Abdominal Exam GI & Abdominal Exam: Normal Bowel Sounds Assessment and Plan - Assessment and Plan (Free Text) Assessment: Disposition?? 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
[2015-08-01 05:54] LABS: HEMOGLOBIN 11.6 g/dL (12.0-18.0); MEAN CELL VOLUME 93.7 fl (80.0-94.0); MEAN CORPUSCULAR HEMOGLOBIN 30.2 pg (27.0-31.0); MEAN CORPUSCULAR HGB CONC 32.2 g/dL (33.0-37.0); RBC 3.85 Mil/uL (4.40-5.90); RED CELL DISTRIBUTION WIDTH 13.5 % (11.5-14.5); WHITE BLOOD COUNT 6.3 K/uL (4.8-10.8)
[2015-08-01] MEDS: Enoxaparin 40 mg Syringe SC SCH ×2 (09:00→09:36)
[2015-08-01] MEDS: LEVODOPA PO SCH ×3 (09:36→16:30)
[2015-08-01] MEDS: CARBIDOPA PO SCH ×3 (09:36→16:30)
[2015-08-01] MEDS: Hydrocortisone 0.5% OINT TOP SCH ×2 (09:37→16:30)
--- NOTE | 2015-08-01 20:41 | CP.PCM.PN ---
Subjective - Date & Time of Evaluation Date of Evaluation: 08/02/15 Time of Evaluation: 22:22 - Subjective Subjective: Doing well Objective - Vital Signs/Intake and Output Vital Signs (last 24 hours): Temp Pulse Resp BP Pulse Ox 97.2 F L 66 20 138/72 98 08/01/15 16:04 08/01/15 16:04 08/01/15 16:04 08/01/15 16:04 08/01/15 16:04 - Medications Medications: Current Medications Acyclovir (Zovirax) 800 mg PO TID [facility] Last Admin: 08/01/15 16:31 Dose: 800 mg Benzocaine/Menthol (Cepacol Sore Throat) 1 morro PO Q3 PRN PRN Reason: Sore Throat Last Admin: 07/24/15 10:54 Dose: 1 morro Donepezil HCl (Aricept) 10 mg PO HS [facility] Last Admin: 07/31/15 21:48 Dose: 10 mg Enoxaparin Sodium (Lovenox) 40 mg SC DAILY [facility] Last Admin: 08/01/15 09:36 Dose: 40 mg Gabapentin (Neurontin) 600 mg PO TID [facility] Last Admin: 08/01/15 16:30 Dose: 600 mg Home Med (Carbidopa/Levodopa [Rytary 48.75 Mg-195 Mg]) 3 cap PO TID [facility] Last Admin: 08/01/15 16:30 Dose: 3 cap Hydrocortisone (Hydrocortisone 0.5%) 1 applic TOP BID [facility] Last Admin: 08/01/15 16:30 Dose: 1 applic Midodrine (Proamatine) 5 mg PO TID [facility] Last Admin: 08/01/15 16:31 Dose: 5 mg Quetiapine Fumarate (Seroquel) 50 mg PO HS PRN PRN Reason: Insomnia Last Admin: 07/30/15 09:21 Dose: 50 mg Tramadol HCl (Ultram) 50 mg PO Q6 PRN PRN Reason: Pain, moderate (4-7) - Labs Labs: 08/01/15 05:00 07/27/15 09:45 - Respiratory Exam Respiratory Exam: NORMAL BREATHING PATTERN - Cardiovascular Exam Cardiovascular Exam: REGULAR RHYTHM - GI/Abdominal Exam GI & Abdominal Exam: Normal Bowel Sounds Assessment and Plan - Assessment and Plan (Free Text) Assessment: Disposition?? 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
[2015-08-02] MEDS: Hydrocortisone 0.5% OINT TOP SCH ×2 (09:00→18:57)
[2015-08-02] MEDS: Enoxaparin 40 mg Syringe SC SCH (09:14)
[2015-08-02] MEDS: LEVODOPA PO SCH ×3 (09:14→18:57)
[2015-08-02] MEDS: CARBIDOPA PO SCH ×3 (09:14→18:57)
--- NOTE | 2015-08-02 18:43 | CP.PCM.PN ---
Subjective - Date & Time of Evaluation Date of Evaluation: 08/03/15 Time of Evaluation: 22:22 - Subjective Subjective: Spoke to niece today Pt c/o of shoulder pain Objective - Vital Signs/Intake and Output Vital Signs (last 24 hours): Temp Pulse Resp BP Pulse Ox 97.4 F L 68 20 128/66 97 08/02/15 16:29 08/02/15 16:29 08/02/15 16:29 08/02/15 16:29 08/02/15 16:29 - Medications Medications: Current Medications Acyclovir (Zovirax) 800 mg PO TID [facility] Last Admin: 08/02/15 13:17 Dose: 800 mg Benzocaine/Menthol (Cepacol Sore Throat) 1 morro PO Q3 PRN PRN Reason: Sore Throat Last Admin: 07/24/15 10:54 Dose: 1 morro Donepezil HCl (Aricept) 10 mg PO HS [facility] Last Admin: 08/01/15 22:39 Dose: 10 mg Enoxaparin Sodium (Lovenox) 40 mg SC DAILY [facility] Last Admin: 08/02/15 09:14 Dose: 40 mg Gabapentin (Neurontin) 600 mg PO TID [facility] Last Admin: 08/02/15 13:16 Dose: 600 mg Home Med (Carbidopa/Levodopa [Rytary 48.75 Mg-195 Mg]) 3 cap PO TID [facility] Last Admin: 08/02/15 13:16 Dose: 3 cap Hydrocortisone (Hydrocortisone 0.5%) 1 applic TOP BID [facility] Last Admin: 08/01/15 16:30 Dose: 1 applic Midodrine (Proamatine) 5 mg PO TID [facility] Last Admin: 08/02/15 13:16 Dose: 5 mg Quetiapine Fumarate (Seroquel) 50 mg PO HS PRN PRN Reason: Insomnia Last Admin: 07/30/15 09:21 Dose: 50 mg Tramadol HCl (Ultram) 50 mg PO Q6 PRN PRN Reason: Pain, moderate (4-7) Last Admin: 08/02/15 13:34 Dose: 50 mg - Labs Labs: 08/01/15 05:00 07/27/15 09:45 - Respiratory Exam Respiratory Exam: NORMAL BREATHING PATTERN - Cardiovascular Exam Cardiovascular Exam: REGULAR RHYTHM - GI/Abdominal Exam GI & Abdominal Exam: Normal Bowel Sounds Assessment and Plan - Assessment and Plan (Free Text) Assessment: R shoulder pain PT Disposition?? 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
[2015-08-03] MEDS: CARBIDOPA PO SCH ×3 (09:09→17:44)
[2015-08-03] MEDS: Enoxaparin 40 mg Syringe SC SCH (09:09)
[2015-08-03] MEDS: Hydrocortisone 0.5% OINT TOP SCH ×2 (09:09→17:44)
[2015-08-03] MEDS: LEVODOPA PO SCH ×3 (09:09→17:44)
--- NOTE | 2015-08-03 20:16 | CP.PCM.PN ---
Subjective - Date & Time of Evaluation Date of Evaluation: 08/03/15 Time of Evaluation: 22:22 - Subjective Subjective: Resting D/W SS today Objective - Vital Signs/Intake and Output Vital Signs (last 24 hours): Temp Pulse Resp BP Pulse Ox 97.2 F L 67 20 145/74 98 08/03/15 16:37 08/03/15 16:37 08/03/15 16:37 08/03/15 16:37 08/03/15 16:37 - Medications Medications: Current Medications Benzocaine/Menthol (Cepacol Sore Throat) 1 morro PO Q3 PRN PRN Reason: Sore Throat Last Admin: 07/24/15 10:54 Dose: 1 morro Donepezil HCl (Aricept) 10 mg PO HS [facility] Last Admin: 08/02/15 23:10 Dose: 10 mg Enoxaparin Sodium (Lovenox) 40 mg SC DAILY [facility] Last Admin: 08/03/15 09:09 Dose: 40 mg Gabapentin (Neurontin) 600 mg PO TID [facility] Last Admin: 08/03/15 17:45 Dose: 600 mg Home Med (Carbidopa/Levodopa [Rytary 48.75 Mg-195 Mg]) 3 cap PO TID [facility] Last Admin: 08/03/15 17:44 Dose: 3 cap Hydrocortisone (Hydrocortisone 0.5%) 1 applic TOP BID [facility] Last Admin: 08/03/15 17:44 Dose: 1 applic Midodrine (Proamatine) 5 mg PO TID [facility] Last Admin: 08/03/15 17:45 Dose: 5 mg Quetiapine Fumarate (Seroquel) 50 mg PO HS PRN PRN Reason: Insomnia Last Admin: 07/30/15 09:21 Dose: 50 mg Tramadol HCl (Ultram) 50 mg PO Q6 PRN PRN Reason: Pain, moderate (4-7) Last Admin: 08/03/15 09:27 Dose: 50 mg - Labs Labs: 08/01/15 05:00 07/27/15 09:45 - Respiratory Exam Respiratory Exam: NORMAL BREATHING PATTERN - Cardiovascular Exam Cardiovascular Exam: REGULAR RHYTHM - GI/Abdominal Exam GI & Abdominal Exam: Normal Bowel Sounds Assessment and Plan - Assessment and Plan (Free Text) Assessment: R shoulder pain PT Disposition?? 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
[2015-08-04] MEDS: CARBIDOPA PO SCH ×3 (10:23→17:38)
[2015-08-04] MEDS: LEVODOPA PO SCH ×3 (10:23→17:38)
[2015-08-04] MEDS: Enoxaparin 40 mg Syringe SC SCH (10:24)
[2015-08-04] MEDS: Hydrocortisone 0.5% OINT TOP SCH ×2 (10:25→17:40)
--- NOTE | 2015-08-04 17:27 | CP.PCM.PN ---
Subjective - Date & Time of Evaluation Date of Evaluation: 08/04/15 Time of Evaluation: 22:22 - Subjective Subjective: Long D/W staff regarding disposition Pt doing well Objective - Vital Signs/Intake and Output Vital Signs (last 24 hours): Temp Pulse Resp BP Pulse Ox 97.9 F 67 20 151/83 H 99 08/04/15 17:10 08/04/15 17:10 08/04/15 17:10 08/04/15 17:10 08/04/15 17:10 - Medications Medications: Current Medications Benzocaine/Menthol (Cepacol Sore Throat) 1 morro PO Q3 PRN PRN Reason: Sore Throat Last Admin: 07/24/15 10:54 Dose: 1 morro Donepezil HCl (Aricept) 10 mg PO HS [facility] Last Admin: 08/03/15 21:36 Dose: 10 mg Enoxaparin Sodium (Lovenox) 40 mg SC DAILY [facility] Last Admin: 08/04/15 10:24 Dose: 40 mg Gabapentin (Neurontin) 600 mg PO TID [facility] Last Admin: 08/04/15 13:16 Dose: 600 mg Home Med (Carbidopa/Levodopa [Rytary 48.75 Mg-195 Mg]) 3 cap PO TID [facility] Last Admin: 08/04/15 13:15 Dose: 1 cap Hydrocortisone (Hydrocortisone 0.5%) 1 applic TOP BID [facility] Last Admin: 08/04/15 10:25 Dose: 1 applic Midodrine (Proamatine) 5 mg PO TID [facility] Last Admin: 08/04/15 13:16 Dose: 5 mg Quetiapine Fumarate (Seroquel) 50 mg PO HS PRN PRN Reason: Insomnia Last Admin: 08/04/15 00:48 Dose: 50 mg Tramadol HCl (Ultram) 50 mg PO Q6 PRN PRN Reason: Pain, moderate (4-7) Last Admin: 08/04/15 03:53 Dose: 50 mg - Labs Labs: 08/01/15 05:00 07/27/15 09:45 - Respiratory Exam Respiratory Exam: NORMAL BREATHING PATTERN - Cardiovascular Exam Cardiovascular Exam: REGULAR RHYTHM - GI/Abdominal Exam GI & Abdominal Exam: Normal Bowel Sounds Assessment and Plan - Assessment and Plan (Free Text) Assessment: Disposition?? 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
[2015-08-05] MEDS: LEVODOPA PO SCH ×3 (09:32→17:59)
[2015-08-05] MEDS: CARBIDOPA PO SCH ×3 (09:32→17:59)
[2015-08-05] MEDS: Hydrocortisone 0.5% OINT TOP SCH ×2 (09:33→18:00)
[2015-08-05] MEDS: Enoxaparin 40 mg Syringe SC SCH (09:33)
--- NOTE | 2015-08-05 12:36 | CP.PCM.PN ---
Subjective - Date & Time of Evaluation Date of Evaluation: 08/05/15 Time of Evaluation: 13:30 - Subjective Subjective: Patient was seen ambulating in the unit with nursing, no new complaints other than right leg irritation behind the wood. Objective - Vital Signs/Intake and Output Vital Signs (last 24 hours): Temp Pulse Resp BP Pulse Ox 97.3 F L 70 20 137/61 98 08/05/15 07:50 08/05/15 07:50 08/05/15 07:50 08/05/15 07:50 08/05/15 07:50 - Medications Medications: Current Medications Benzocaine/Menthol (Cepacol Sore Throat) 1 morro PO Q3 PRN PRN Reason: Sore Throat Last Admin: 07/24/15 10:54 Dose: 1 morro Donepezil HCl (Aricept) 10 mg PO HS [facility] Last Admin: 08/04/15 22:28 Dose: 10 mg Gabapentin (Neurontin) 600 mg PO TID [facility] Last Admin: 08/05/15 09:33 Dose: 600 mg Home Med (Carbidopa/Levodopa [Rytary 48.75 Mg-195 Mg]) 3 cap PO TID [facility] Last Admin: 08/05/15 09:32 Dose: 3 cap Hydrocortisone (Hydrocortisone 0.5%) 1 applic TOP BID [facility] Last Admin: 08/05/15 09:33 Dose: 1 applic Midodrine (Proamatine) 5 mg PO TID [facility] Last Admin: 08/05/15 09:34 Dose: 5 mg Quetiapine Fumarate (Seroquel) 50 mg PO HS PRN PRN Reason: Insomnia Last Admin: 08/04/15 00:48 Dose: 50 mg Tramadol HCl (Ultram) 50 mg PO Q6 PRN PRN Reason: Pain, moderate (4-7) Last Admin: 08/05/15 11:00 Dose: 50 mg - Labs Labs: 08/01/15 05:00 07/27/15 09:45 - Constitutional Appears: Non-toxic, No Acute Distress, Chronically Ill - Head Exam Head Exam: ATRAUMATIC, NORMAL INSPECTION, NORMOCEPHALIC - ENT Exam ENT Exam: Mucous Membranes Moist, Normal Exam Assessment and Plan (1) Fall Status: Acute (2) Shingles outbreak Status: Acute (3) Parkinson disease Status: Chronic (4) Thrombocytopenia Status: Chronic (5) Depression Status: Acute (6) Hypotension Status: Acute (7) DVT prophylaxis Status: Acute - Assessment and Plan (Free Text) Assessment: Assessment and Plan (1) Fall Assessment & Plan: with generalized muscle weakness du eot advanced Parkinson's PT consulted Will need placement to [facility] 24 hour home health care, SW following (2) Shingles outbreak Assessment & Plan: improved Isolation discontinued topical hydrocortizone ID was consulted Pain management (3) Parkinson disease Assessment & Plan: Continue Carbidopa/Levodopa (4) Thrombocytopenia Assessment & Plan: unclear etiology Stable (5) Depression Assessment & Plan: Continue Seroquel (6) Hypotension Assessment & Plan: Continue Midodrine (7) DVT prophylaxis Assessment & Plan: on Lovenox Assessment & Plan: Continue Midodrine Status: Acute (7) DVT prophylaxis Assessment & Plan: on Lovenox Status: Acute
[2015-08-06] MEDS: CARBIDOPA PO SCH ×3 (09:19→18:07)
[2015-08-06] MEDS: LEVODOPA PO SCH ×3 (09:19→18:07)
[2015-08-06] MEDS: Hydrocortisone 0.5% OINT TOP SCH ×2 (09:20→18:07)
[2015-08-06] MEDS: Enoxaparin 40 mg Syringe SC SCH (13:30)
--- NOTE | 2015-08-06 13:49 | CP.PCM.PN ---
Subjective - Date & Time of Evaluation Date of Evaluation: 08/06/15 Time of Evaluation: 01:35 - Subjective Subjective: no fever complains of generalized pain however ooks comfortable, siited on a chair being fed lunch by RN Objective - Vital Signs/Intake and Output Vital Signs (last 24 hours): Temp Pulse Resp BP Pulse Ox 97.8 F 45 L 18 124/52 L 99 08/06/15 00:28 08/06/15 00:28 08/06/15 00:28 08/06/15 00:28 08/06/15 00:28 - Medications Medications: Current Medications Benzocaine/Menthol (Cepacol Sore Throat) 1 morro PO Q3 PRN PRN Reason: Sore Throat Last Admin: 07/24/15 10:54 Dose: 1 morro Donepezil HCl (Aricept) 10 mg PO HS [facility] Last Admin: 08/05/15 22:56 Dose: 10 mg Enoxaparin Sodium (Lovenox) 40 mg SC DAILY [facility] Last Admin: 08/06/15 13:30 Dose: 40 mg Gabapentin (Neurontin) 600 mg PO TID [facility] Last Admin: 08/06/15 13:30 Dose: 600 mg Home Med (Carbidopa/Levodopa [Rytary 48.75 Mg-195 Mg]) 3 cap PO TID [facility] Last Admin: 08/06/15 13:29 Dose: 3 cap Hydrocortisone (Hydrocortisone 0.5%) 1 applic TOP BID [facility] Last Admin: 08/06/15 09:20 Dose: 1 applic Midodrine (Proamatine) 5 mg PO TID [facility] Last Admin: 08/06/15 13:31 Dose: 5 mg Quetiapine Fumarate (Seroquel) 50 mg PO HS PRN PRN Reason: Insomnia Last Admin: 08/06/15 09:20 Dose: 50 mg Tramadol HCl (Ultram) 50 mg PO Q6 PRN PRN Reason: Pain, moderate (4-7) Last Admin: 08/05/15 11:00 Dose: 50 mg - Labs Labs: 08/01/15 05:00 07/27/15 09:45 - Constitutional Appears: No Acute Distress - Head Exam Head Exam: NORMAL INSPECTION, NORMOCEPHALIC - Eye Exam Eye Exam: EOMI, Normal appearance Pupil Exam: NORMAL ACCOMODATION - ENT Exam ENT Exam: Mucous Membranes Moist, Normal External Ear Exam - Neck Exam Neck Exam: Full ROM - Respiratory Exam Respiratory Exam: NORMAL BREATHING PATTERN. absent: Respiratory Distress - Cardiovascular Exam Cardiovascular Exam: REGULAR RHYTHM, +S1, +S2 - GI/Abdominal Exam GI & Abdominal Exam: Soft, Normal Bowel Sounds. absent: Tenderness - Extremities Exam Extremities Exam: Normal Capillary Refill, Pedal Edema. absent: Calf Tenderness - Neurological Exam Neurological Exam: Alert, Awake, Oriented x3 - Psychiatric Exam Psychiatric exam: Normal Affect, Normal Mood - Skin Skin Exam: Dry, Normal Color, Warm Assessment and Plan (1) Fall Status: Acute (2) Parkinson disease Status: Chronic (3) DVT prophylaxis Status: Acute (4) Thrombocytopenia Status: Chronic (5) Atrial fibrillation Status: Chronic (6) Orthostasis Status: Chronic - Assessment and Plan (Free Text) Assessment: Assessment and Plan (1) Fall Assessment & Plan: Hx of frequent fall due to gait disturbance due to advanced Parkinson's PT consulted Will need placement to [facility] 24 hour home health care, SW following (2) Shingles outbreak Assessment & Plan: improved Isolation discontinued topical hydrocortizone ID was consulted Pain management (3) Parkinson disease Assessment & Plan: Continue Carbidopa/Levodopa (4) Thrombocytopenia Assessment & Plan: unclear etiology Stable (5) Depression Assessment & Plan: Continue Seroquel (6) Hypotension Assessment & Plan: Continue Midodrine (7) DVT prophylaxis Assessment & Plan: on Lovenox Continue Midodrine (7) DVT prophylaxis Assessment & Plan: on Lovenox
[2015-08-07] MEDS: Enoxaparin 40 mg Syringe SC SCH (09:11)
[2015-08-07] MEDS: CARBIDOPA PO SCH ×3 (09:12→17:45)
[2015-08-07] MEDS: LEVODOPA PO SCH ×3 (09:12→17:45)
[2015-08-07] MEDS: Hydrocortisone 0.5% OINT TOP SCH ×2 (09:12→17:45)
--- NOTE | 2015-08-07 20:31 | CP.PCM.PN ---
Subjective - Date & Time of Evaluation Date of Evaluation: 08/07/15 Time of Evaluation: 22:22 - Subjective Subjective: Doing well Sitting in chair Appears more alert Objective - Vital Signs/Intake and Output Vital Signs (last 24 hours): Temp Pulse Resp BP Pulse Ox 97.2 F L 72 20 97/55 L 98 08/07/15 16:32 08/07/15 16:32 08/07/15 16:32 08/07/15 16:32 08/07/15 16:32 - Medications Medications: Current Medications Donepezil HCl (Aricept) 10 mg PO HS [facility] Last Admin: 08/06/15 21:55 Dose: 10 mg Enoxaparin Sodium (Lovenox) 40 mg SC DAILY [facility] Last Admin: 08/07/15 09:11 Dose: 40 mg Gabapentin (Neurontin) 600 mg PO TID [facility] Last Admin: 08/07/15 17:45 Dose: 600 mg Home Med (Carbidopa/Levodopa [Rytary 48.75 Mg-195 Mg]) 3 cap PO TID [facility] Last Admin: 08/07/15 17:45 Dose: 3 cap Hydrocortisone (Hydrocortisone 0.5%) 1 applic TOP BID [facility] Last Admin: 08/07/15 17:45 Dose: 1 applic Midodrine (Proamatine) 5 mg PO TID [facility] Last Admin: 08/07/15 17:45 Dose: 5 mg Quetiapine Fumarate (Seroquel) 50 mg PO HS PRN PRN Reason: Insomnia Last Admin: 08/07/15 09:12 Dose: 50 mg Tramadol HCl (Ultram) 50 mg PO Q6 PRN PRN Reason: Pain, moderate (4-7) Last Admin: 08/07/15 10:58 Dose: 50 mg - Labs Labs: 08/01/15 05:00 07/27/15 09:45 - Respiratory Exam Respiratory Exam: NORMAL BREATHING PATTERN - Cardiovascular Exam Cardiovascular Exam: REGULAR RHYTHM - GI/Abdominal Exam GI & Abdominal Exam: Normal Bowel Sounds Assessment and Plan - Assessment and Plan (Free Text) Assessment: Disposition?? 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
[2015-08-08] MEDS: LEVODOPA PO SCH ×3 (09:40→18:20)
[2015-08-08] MEDS: CARBIDOPA PO SCH ×3 (09:40→18:20)
[2015-08-08] MEDS: Enoxaparin 40 mg Syringe SC SCH (09:41)
[2015-08-08] MEDS: Hydrocortisone 0.5% OINT TOP SCH ×2 (09:42→18:20)
--- NOTE | 2015-08-08 19:07 | CP.PCM.PN ---
Subjective - Date & Time of Evaluation Date of Evaluation: 08/08/15 Time of Evaluation: 22:22 - Subjective Subjective: Long D/W family, SS and pt Objective - Vital Signs/Intake and Output Vital Signs (last 24 hours): Temp Pulse Resp BP Pulse Ox 98.1 F 63 18 113/60 98 08/08/15 18:51 08/08/15 18:51 08/08/15 08:32 08/08/15 18:51 08/08/15 18:51 - Medications Medications: Current Medications Donepezil HCl (Aricept) 10 mg PO HS [facility] Last Admin: 08/07/15 22:28 Dose: 10 mg Enoxaparin Sodium (Lovenox) 40 mg SC DAILY [facility] Last Admin: 08/08/15 09:41 Dose: 40 mg Gabapentin (Neurontin) 600 mg PO TID [facility] Last Admin: 08/08/15 18:20 Dose: 600 mg Home Med (Carbidopa/Levodopa [Rytary 48.75 Mg-195 Mg]) 3 cap PO TID [facility] Last Admin: 08/08/15 18:20 Dose: 3 cap Hydrocortisone (Hydrocortisone 0.5%) 1 applic TOP BID [facility] Last Admin: 08/08/15 18:20 Dose: 1 applic Midodrine (Proamatine) 5 mg PO TID [facility] Last Admin: 08/08/15 18:21 Dose: 5 mg Quetiapine Fumarate (Seroquel) 50 mg PO HS PRN PRN Reason: Insomnia Last Admin: 08/07/15 09:12 Dose: 50 mg Tramadol HCl (Ultram) 50 mg PO Q6 PRN PRN Reason: Pain, moderate (4-7) Last Admin: 08/07/15 10:58 Dose: 50 mg - Labs Labs: 08/01/15 05:00 07/27/15 09:45 - Respiratory Exam Respiratory Exam: NORMAL BREATHING PATTERN - Cardiovascular Exam Cardiovascular Exam: REGULAR RHYTHM - GI/Abdominal Exam GI & Abdominal Exam: Normal Bowel Sounds Assessment and Plan - Assessment and Plan (Free Text) Assessment: Disposition?? 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
[2015-08-09] MEDS: CARBIDOPA PO SCH ×3 (10:22→16:56)
[2015-08-09] MEDS: LEVODOPA PO SCH ×3 (10:22→16:56)
[2015-08-09] MEDS: Hydrocortisone 0.5% OINT TOP SCH ×2 (10:23→19:22)
[2015-08-09] MEDS: Enoxaparin 40 mg Syringe SC SCH (10:23)
--- NOTE | 2015-08-09 19:03 | CP.PCM.PN ---
Subjective - Date & Time of Evaluation Date of Evaluation: 08/09/15 Time of Evaluation: 22:22 - Subjective Subjective: No change in status Objective - Vital Signs/Intake and Output Vital Signs (last 24 hours): Temp Pulse Resp BP Pulse Ox 97.7 F 71 20 132/89 98 08/09/15 18:21 08/09/15 18:21 08/09/15 08:41 08/09/15 18:21 08/09/15 18:21 - Medications Medications: Current Medications Donepezil HCl (Aricept) 10 mg PO HS [facility] Last Admin: 08/08/15 21:32 Dose: 10 mg Enoxaparin Sodium (Lovenox) 40 mg SC DAILY [facility] Last Admin: 08/09/15 10:23 Dose: 40 mg Gabapentin (Neurontin) 600 mg PO TID [facility] Last Admin: 08/09/15 16:55 Dose: 600 mg Home Med (Carbidopa/Levodopa [Rytary 48.75 Mg-195 Mg]) 3 cap PO TID [facility] Last Admin: 08/09/15 16:56 Dose: 3 cap Hydrocortisone (Hydrocortisone 0.5%) 1 applic TOP BID [facility] Last Admin: 08/09/15 10:23 Dose: 1 applic Midodrine (Proamatine) 5 mg PO TID [facility] Last Admin: 08/09/15 16:56 Dose: 5 mg Quetiapine Fumarate (Seroquel) 50 mg PO HS PRN PRN Reason: Insomnia Last Admin: 08/07/15 09:12 Dose: 50 mg Tramadol HCl (Ultram) 50 mg PO Q6 PRN PRN Reason: Pain, moderate (4-7) Last Admin: 08/09/15 11:45 Dose: 50 mg - Labs Labs: 08/01/15 05:00 07/27/15 09:45 - Respiratory Exam Respiratory Exam: NORMAL BREATHING PATTERN - Cardiovascular Exam Cardiovascular Exam: REGULAR RHYTHM - GI/Abdominal Exam GI & Abdominal Exam: Normal Bowel Sounds Assessment and Plan - Assessment and Plan (Free Text) Assessment: Disposition?? 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
[2015-08-10 08:53] LABS: HEMOGLOBIN 12.9 g/dL (12.0-18.0); MEAN CELL VOLUME 95.9 fl (80.0-94.0); MEAN CORPUSCULAR HEMOGLOBIN 29.8 pg (27.0-31.0); MEAN CORPUSCULAR HGB CONC 31.1 g/dL (33.0-37.0); RBC 4.34 Mil/uL (4.40-5.90); RED CELL DISTRIBUTION WIDTH 14.8 % (11.5-14.5); WHITE BLOOD COUNT 6.2 K/uL (4.8-10.8)
[2015-08-10 09:01] LABS: BLOOD UREA NITROGEN 26 mg/dl (9-20); CALCIUM 9.7 mg/dL (8.4-10.2); GFR AFRICAN-AMERICAN > 60; GFR NON-AFRICAN AMERICAN > 60
[2015-08-10] MEDS: CARBIDOPA PO SCH ×3 (09:49→16:38)
[2015-08-10] MEDS: LEVODOPA PO SCH ×3 (09:49→16:38)
[2015-08-10] MEDS: Enoxaparin 40 mg Syringe SC SCH (09:49)
[2015-08-10] MEDS: Hydrocortisone 0.5% OINT TOP SCH ×2 (09:50→16:38)
--- NOTE | 2015-08-10 18:30 | CP.PCM.PN ---
Subjective - Date & Time of Evaluation Date of Evaluation: 08/10/15 Time of Evaluation: 22:22 - Subjective Subjective: Long d/w pt regarding [facility] plans Pt [place] go [place] Objective - Vital Signs/Intake and Output Vital Signs (last 24 hours): Temp Pulse Resp BP Pulse Ox 98.1 F 85 18 140/83 99 08/10/15 17:00 08/10/15 17:00 08/10/15 17:00 08/10/15 17:00 08/10/15 16:51 - Medications Medications: Current Medications Donepezil HCl (Aricept) 10 mg PO HS [facility] Last Admin: 08/09/15 21:43 Dose: 10 mg Enoxaparin Sodium (Lovenox) 40 mg SC DAILY [facility] Last Admin: 08/10/15 09:49 Dose: 40 mg Gabapentin (Neurontin) 600 mg PO TID [facility] Last Admin: 08/10/15 16:38 Dose: 600 mg Home Med (Carbidopa/Levodopa [Rytary 48.75 Mg-195 Mg]) 3 cap PO TID [facility] Last Admin: 08/10/15 16:38 Dose: 3 cap Hydrocortisone (Hydrocortisone 0.5%) 1 applic TOP BID [facility] Last Admin: 08/10/15 16:38 Dose: 1 applic Midodrine (Proamatine) 5 mg PO TID [facility] Last Admin: 08/10/15 16:38 Dose: 5 mg Quetiapine Fumarate (Seroquel) 50 mg PO HS PRN PRN Reason: Insomnia Last Admin: 08/07/15 09:12 Dose: 50 mg Tramadol HCl (Ultram) 50 mg PO Q6 PRN PRN Reason: Pain, moderate (4-7) Last Admin: 08/09/15 11:45 Dose: 50 mg - Labs Labs: 08/10/15 08:34 08/10/15 08:34 - Respiratory Exam Respiratory Exam: NORMAL BREATHING PATTERN - Cardiovascular Exam Cardiovascular Exam: REGULAR RHYTHM - GI/Abdominal Exam GI & Abdominal Exam: Normal Bowel Sounds Assessment and Plan - Assessment and Plan (Free Text) Assessment: Disposition?? 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
[2015-08-11] MEDS: Hydrocortisone 0.5% OINT TOP SCH ×2 (08:18→16:29)
[2015-08-11] MEDS: LEVODOPA PO SCH ×3 (08:18→16:28)
[2015-08-11] MEDS: CARBIDOPA PO SCH ×3 (08:18→16:28)
[2015-08-11] MEDS: Enoxaparin 40 mg Syringe SC SCH (08:19)
--- NOTE | 2015-08-11 17:57 | CP.PCM.PN ---
Subjective - Date & Time of Evaluation Date of Evaluation: 08/11/15 Time of Evaluation: 22:22 - Subjective Subjective: Doing well Objective - Vital Signs/Intake and Output Vital Signs (last 24 hours): Temp Pulse Resp BP Pulse Ox 96.8 F L 65 18 124/63 97 08/11/15 16:37 08/11/15 16:37 08/11/15 16:37 08/11/15 16:37 08/11/15 16:37 - Medications Medications: Current Medications Donepezil HCl (Aricept) 10 mg PO HS [facility] Last Admin: 08/10/15 21:59 Dose: 10 mg Enoxaparin Sodium (Lovenox) 40 mg SC DAILY [facility] Last Admin: 08/11/15 08:19 Dose: 40 mg Gabapentin (Neurontin) 600 mg PO TID [facility] Last Admin: 08/11/15 16:29 Dose: 600 mg Home Med (Carbidopa/Levodopa [Rytary 48.75 Mg-195 Mg]) 3 cap PO TID [facility] Last Admin: 08/11/15 16:28 Dose: 3 cap Hydrocortisone (Hydrocortisone 0.5%) 1 applic TOP BID [facility] Last Admin: 08/11/15 16:29 Dose: 1 applic Midodrine (Proamatine) 5 mg PO TID [facility] Last Admin: 08/11/15 16:30 Dose: 5 mg Quetiapine Fumarate (Seroquel) 50 mg PO HS PRN PRN Reason: Insomnia Last Admin: 08/07/15 09:12 Dose: 50 mg Tramadol HCl (Ultram) 50 mg PO Q6 PRN PRN Reason: Pain, moderate (4-7) Last Admin: 08/11/15 17:46 Dose: 50 mg - Labs Labs: 08/10/15 08:34 08/10/15 08:34 - Respiratory Exam Respiratory Exam: NORMAL BREATHING PATTERN - Cardiovascular Exam Cardiovascular Exam: REGULAR RHYTHM - GI/Abdominal Exam GI & Abdominal Exam: Normal Bowel Sounds Assessment and Plan - Assessment and Plan (Free Text) Assessment: Disposition?? 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
[2015-08-12] MEDS: Hydrocortisone 0.5% OINT TOP SCH ×2 (09:04→17:45)
[2015-08-12] MEDS: LEVODOPA PO SCH ×3 (09:04→17:45)
[2015-08-12] MEDS: CARBIDOPA PO SCH ×3 (09:04→17:45)
--- NOTE | 2015-08-12 11:45 | CP.PCM.PN ---
Subjective - Date & Time of Evaluation Date of Evaluation: 08/12/15 Time of Evaluation: 11:40 - Subjective Subjective: Patient seen bedside. Sttaes feeling lousy. Complains of pain all over hius body , shoulder, back, knees Hemodynamically stable, afebrile. No acute issues overnight. Objective - Vital Signs/Intake and Output Vital Signs (last 24 hours): Temp Pulse Resp BP Pulse Ox 97.5 F L 72 20 140/85 99 08/12/15 08:58 08/12/15 08:58 08/12/15 08:58 08/12/15 08:58 08/12/15 08:58 - Medications Medications: Current Medications Donepezil HCl (Aricept) 10 mg PO HS [facility] Last Admin: 08/12/15 00:30 Dose: 10 mg Gabapentin (Neurontin) 600 mg PO TID [facility] Last Admin: 08/12/15 09:05 Dose: 600 mg Home Med (Carbidopa/Levodopa [Rytary 48.75 Mg-195 Mg]) 3 cap PO TID [facility] Last Admin: 08/12/15 09:04 Dose: 3 cap Hydrocortisone (Hydrocortisone 0.5%) 1 applic TOP BID [facility] Last Admin: 08/12/15 09:04 Dose: 1 applic Midodrine (Proamatine) 5 mg PO TID [facility] Last Admin: 08/12/15 09:05 Dose: 5 mg Quetiapine Fumarate (Seroquel) 50 mg PO HS PRN PRN Reason: Insomnia Last Admin: 08/07/15 09:12 Dose: 50 mg Tramadol HCl (Ultram) 50 mg PO Q6 PRN PRN Reason: Pain, moderate (4-7) Last Admin: 08/11/15 17:46 Dose: 50 mg - Labs Labs: 08/10/15 08:34 08/10/15 08:34 - Constitutional Appears: Non-toxic, No Acute Distress, Other (elderly male lying in bed in NAD) - Head Exam Head Exam: ATRAUMATIC, NORMAL INSPECTION, NORMOCEPHALIC - Eye Exam Eye Exam: EOMI, Normal appearance, PERRL Pupil Exam: NORMAL ACCOMODATION - ENT Exam ENT Exam: Mucous Membranes Moist, Normal Exam - Neck Exam Neck Exam: Full ROM, Normal Inspection - Respiratory Exam Respiratory Exam: Clear to Ausculation Bilateral, NORMAL BREATHING PATTERN. absent: Rales, Rhonchi, Wheezes - Cardiovascular Exam Cardiovascular Exam: REGULAR RHYTHM. absent: JVD - GI/Abdominal Exam GI & Abdominal Exam: Soft, Normal Bowel Sounds. absent: Guarding, Rebound - Rectal Exam Rectal Exam: Deferred - Extremities Exam Extremities Exam: Normal Capillary Refill, Normal Inspection. absent: Pedal Edema Additional comments: hand tremors - Neurological Exam Neurological Exam: Alert, Awake - Psychiatric Exam Psychiatric exam: Depressed, Flat Affect - Skin Skin Exam: Dry, Normal Color, Warm Assessment and Plan (1) Fall Status: Acute (2) Shingles outbreak Status: Acute (3) Parkinson disease Status: Chronic (4) Thrombocytopenia Status: Chronic (5) Depression Status: Acute (6) Hypotension Status: Acute (7) DVT prophylaxis Status: Acute - Assessment and Plan (Free Text) Assessment: (1) Fall Hx of frequent fall due to gait disturbance due to advanced Parkinson's Will need PT while in hospital for gait training Will need placement to [facility] 24 hour home health care, following (2) Shingles outbreak improved Isolation discontinued topical hydrocortizone ID was consulted Pain management (3) Parkinson disease Continue Carbidopa/Levodopa (4) Thrombocytopenia unclear etiology Stable (5) Depression Continue Seroquel psych consulted Patient has competency (6) Hypotension Continue Midodrine (7) DVT prophylaxis Lovenox
[2015-08-12] MEDS: Enoxaparin 40 mg Syringe SC SCH (12:22)
[2015-08-13] MEDS: CARBIDOPA PO SCH ×3 (08:42→16:09)
[2015-08-13] MEDS: LEVODOPA PO SCH ×3 (08:42→16:09)
[2015-08-13] MEDS: Hydrocortisone 0.5% OINT TOP SCH ×2 (08:42→16:11)
[2015-08-13] MEDS: Enoxaparin 40 mg Syringe SC SCH (08:43)
--- NOTE | 2015-08-13 11:22 | CP.PCM.PN ---
Subjective - Date & Time of Evaluation Date of Evaluation: 08/13/15 Time of Evaluation: 11:20 - Subjective Subjective: no fever right shoulder pain better with pain meds no CP no SOB no abd pain Objective - Vital Signs/Intake and Output Vital Signs (last 24 hours): Temp Pulse Resp BP Pulse Ox 97.7 F 60 20 143/79 98 08/13/15 08:55 08/13/15 08:55 08/13/15 08:55 08/13/15 08:55 08/13/15 08:55 - Medications Medications: Current Medications Donepezil HCl (Aricept) 10 mg PO HS [facility] Last Admin: 08/12/15 22:00 Dose: 10 mg Enoxaparin Sodium (Lovenox) 40 mg SC DAILY [facility] Last Admin: 08/13/15 08:43 Dose: 40 mg Gabapentin (Neurontin) 600 mg PO TID [facility] Last Admin: 08/13/15 08:43 Dose: 600 mg Home Med (Carbidopa/Levodopa [Rytary 48.75 Mg-195 Mg]) 3 cap PO TID [facility] Last Admin: 08/13/15 08:42 Dose: 3 cap Hydrocortisone (Hydrocortisone 0.5%) 1 applic TOP BID [facility] Last Admin: 08/13/15 08:42 Dose: 1 applic Midodrine (Proamatine) 5 mg PO TID [facility] Last Admin: 08/13/15 08:44 Dose: 5 mg Quetiapine Fumarate (Seroquel) 50 mg PO HS PRN PRN Reason: Insomnia Last Admin: 08/07/15 09:12 Dose: 50 mg Tramadol HCl (Ultram) 50 mg PO Q6 PRN PRN Reason: Pain, moderate (4-7) Last Admin: 08/13/15 08:52 Dose: 50 mg - Labs Labs: 08/10/15 08:34 08/10/15 08:34 - Constitutional Appears: No Acute Distress - Head Exam Head Exam: NORMAL INSPECTION, NORMOCEPHALIC - Eye Exam Eye Exam: EOMI, Normal appearance Pupil Exam: NORMAL ACCOMODATION - ENT Exam ENT Exam: Mucous Membranes Moist, Normal External Ear Exam - Neck Exam Neck Exam: Full ROM. absent: Meningismus - Respiratory Exam Respiratory Exam: NORMAL BREATHING PATTERN. absent: Rales, Respiratory Distress - Cardiovascular Exam Cardiovascular Exam: REGULAR RHYTHM, +S1, +S2 - GI/Abdominal Exam GI & Abdominal Exam: Soft, Normal Bowel Sounds. absent: Tenderness - Extremities Exam Extremities Exam: Normal Capillary Refill, Pedal Edema. absent: Calf Tenderness - Neurological Exam Neurological Exam: Alert, Awake, Oriented x3 Neuro motor strength exam: Left Upper Extremity: 4, Right Upper Extremity: 4, Left Lower Extremity: 4, Right Lower Extremity: 4 - Psychiatric Exam Psychiatric exam: Flat Affect - Skin Skin Exam: Dry, Normal Color, Warm Assessment and Plan (1) Fall Status: Acute (2) Parkinson disease Status: Chronic (3) DVT prophylaxis Status: Acute (4) Thrombocytopenia Status: Chronic (5) Atrial fibrillation Status: Chronic (6) Orthostasis Status: Chronic - Assessment and Plan (Free Text) Assessment: (1) Fall Hx of frequent fall due to gait disturbance due to advanced Parkinson's Will need PT while in hospital for gait training Will need placement to [facility] 24 hour home health care, SW following (2) Shingles improved Isolation discontinued topical hydrocortizone ID was consulted Pain management (3) Parkinson disease, chronic Continue Carbidopa/Levodopa (4) Thrombocytopenia, chronic unclear etiology Stable (5) Depression Continue Seroquel psych consulted Patient has competency (6) Hypotension hx of Orthostasis Continue Midodrine (7) DVT prophylaxis Lovenox
[2015-08-14 06:20] LABS: HEMOGLOBIN 11.7 g/dL (12.0-18.0); MEAN CORPUSCULAR HEMOGLOBIN 30.1 pg (27.0-31.0); MEAN CORPUSCULAR HGB CONC 31.7 g/dL (33.0-37.0); RBC 3.89 Mil/uL (4.40-5.90); RED CELL DISTRIBUTION WIDTH 14.7 % (11.5-14.5); WHITE BLOOD COUNT 6.9 K/uL (4.8-10.8)
[2015-08-14] MEDS: CARBIDOPA PO SCH ×3 (08:36→16:47)
[2015-08-14] MEDS: LEVODOPA PO SCH ×3 (08:36→16:47)
[2015-08-14] MEDS: Hydrocortisone 0.5% OINT TOP SCH ×2 (08:37→16:47)
[2015-08-14] MEDS: Enoxaparin 40 mg Syringe SC SCH (08:37)
[2015-08-15] MEDS: CARBIDOPA PO SCH ×3 (10:33→18:02)
[2015-08-15] MEDS: LEVODOPA PO SCH ×3 (10:33→18:02)
[2015-08-15] MEDS: Enoxaparin 40 mg Syringe SC SCH (10:34)
[2015-08-15] MEDS: Hydrocortisone 0.5% OINT TOP SCH ×2 (10:34→19:02)
--- NOTE | 2015-08-15 19:57 | CP.PCM.PN ---
Subjective - Date & Time of Evaluation Date of Evaluation: 08/14/15 Time of Evaluation: 22:22 - Subjective Subjective: Above noted Objective - Vital Signs/Intake and Output Vital Signs (last 24 hours): Temp Pulse Resp BP Pulse Ox 96.6 F L 85 20 113/60 99 08/15/15 16:34 08/15/15 16:34 08/15/15 16:34 08/15/15 16:34 08/15/15 16:34 - Medications Medications: Current Medications Donepezil HCl (Aricept) 10 mg PO HS [facility] Last Admin: 08/14/15 21:33 Dose: 10 mg Gabapentin (Neurontin) 600 mg PO TID [facility] Last Admin: 08/15/15 18:02 Dose: 600 mg Home Med (Carbidopa/Levodopa [Rytary 48.75 Mg-195 Mg]) 3 cap PO TID [facility] Last Admin: 08/15/15 18:02 Dose: 3 cap Hydrocortisone (Hydrocortisone 0.5%) 1 applic TOP BID [facility] Last Admin: 08/15/15 19:02 Dose: 1 applic Midodrine (Proamatine) 5 mg PO TID [facility] Last Admin: 08/15/15 18:03 Dose: 5 mg Quetiapine Fumarate (Seroquel) 50 mg PO HS PRN PRN Reason: Insomnia Last Admin: 08/15/15 01:30 Dose: 50 mg Tramadol HCl (Ultram) 50 mg PO Q6 PRN PRN Reason: Pain, moderate (4-7) Last Admin: 08/15/15 15:19 Dose: 50 mg - Labs Labs: 08/14/15 04:10 08/10/15 08:34 - Respiratory Exam Respiratory Exam: NORMAL BREATHING PATTERN - Cardiovascular Exam Cardiovascular Exam: REGULAR RHYTHM - GI/Abdominal Exam GI & Abdominal Exam: Normal Bowel Sounds Assessment and Plan - Assessment and Plan (Free Text) Assessment: Disposition?? 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
--- NOTE | 2015-08-15 19:58 | CP.PCM.PN ---
Subjective - Date & Time of Evaluation Date of Evaluation: 08/15/15 Time of Evaluation: 22:22 - Subjective Subjective: Resting comfortably Objective - Vital Signs/Intake and Output Vital Signs (last 24 hours): Temp Pulse Resp BP Pulse Ox 96.6 F L 85 20 113/60 99 08/15/15 16:34 08/15/15 16:34 08/15/15 16:34 08/15/15 16:34 08/15/15 16:34 - Medications Medications: Current Medications Donepezil HCl (Aricept) 10 mg PO HS [facility] Last Admin: 08/14/15 21:33 Dose: 10 mg Gabapentin (Neurontin) 600 mg PO TID [facility] Last Admin: 08/15/15 18:02 Dose: 600 mg Home Med (Carbidopa/Levodopa [Rytary 48.75 Mg-195 Mg]) 3 cap PO TID [facility] Last Admin: 08/15/15 18:02 Dose: 3 cap Hydrocortisone (Hydrocortisone 0.5%) 1 applic TOP BID [facility] Last Admin: 08/15/15 19:02 Dose: 1 applic Midodrine (Proamatine) 5 mg PO TID [facility] Last Admin: 08/15/15 18:03 Dose: 5 mg Quetiapine Fumarate (Seroquel) 50 mg PO HS PRN PRN Reason: Insomnia Last Admin: 08/15/15 01:30 Dose: 50 mg Tramadol HCl (Ultram) 50 mg PO Q6 PRN PRN Reason: Pain, moderate (4-7) Last Admin: 08/15/15 15:19 Dose: 50 mg - Labs Labs: 08/14/15 04:10 08/10/15 08:34 - Respiratory Exam Respiratory Exam: NORMAL BREATHING PATTERN - Cardiovascular Exam Cardiovascular Exam: REGULAR RHYTHM Assessment and Plan - Assessment and Plan (Free Text) Assessment: Disposition?? 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
[2015-08-16] MEDS: CARBIDOPA PO SCH ×3 (09:18→17:47)
[2015-08-16] MEDS: LEVODOPA PO SCH ×3 (09:18→17:47)
[2015-08-16] MEDS: Hydrocortisone 0.5% OINT TOP SCH ×2 (09:21→17:46)
--- NOTE | 2015-08-16 17:29 | CP.PCM.PN ---
Subjective - Date & Time of Evaluation Date of Evaluation: 08/16/15 Time of Evaluation: 22:22 - Subjective Subjective: Watching TV Objective - Vital Signs/Intake and Output Vital Signs (last 24 hours): Temp Pulse Resp BP Pulse Ox 97.7 F 78 20 121/74 97 08/16/15 16:11 08/16/15 16:11 08/16/15 16:11 08/16/15 16:11 08/16/15 16:11 - Medications Medications: Current Medications Donepezil HCl (Aricept) 10 mg PO HS [facility] Last Admin: 08/16/15 00:39 Dose: 10 mg Gabapentin (Neurontin) 600 mg PO TID [facility] Last Admin: 08/16/15 12:45 Dose: 600 mg Home Med (Carbidopa/Levodopa [Rytary 48.75 Mg-195 Mg]) 3 cap PO TID [facility] Last Admin: 08/16/15 12:45 Dose: 3 cap Hydrocortisone (Hydrocortisone 0.5%) 1 applic TOP BID [facility] Last Admin: 08/16/15 09:21 Dose: 1 applic Midodrine (Proamatine) 5 mg PO TID [facility] Last Admin: 08/16/15 12:45 Dose: 5 mg Quetiapine Fumarate (Seroquel) 50 mg PO HS PRN PRN Reason: Insomnia Last Admin: 08/15/15 01:30 Dose: 50 mg Tramadol HCl (Ultram) 50 mg PO Q6 PRN PRN Reason: Pain, moderate (4-7) Last Admin: 08/16/15 06:42 Dose: 50 mg - Labs Labs: 08/14/15 04:10 08/10/15 08:34 - Respiratory Exam Respiratory Exam: NORMAL BREATHING PATTERN - Cardiovascular Exam Cardiovascular Exam: REGULAR RHYTHM - GI/Abdominal Exam GI & Abdominal Exam: Normal Bowel Sounds Assessment and Plan - Assessment and Plan (Free Text) Assessment: Disposition?? 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
[2015-08-17] MEDS: Hydrocortisone 0.5% OINT TOP SCH ×2 (08:48→16:24)
[2015-08-17] MEDS: LEVODOPA PO SCH ×3 (09:44→16:24)
[2015-08-17] MEDS: CARBIDOPA PO SCH ×3 (09:44→16:24)
--- NOTE | 2015-08-17 20:34 | CP.PCM.PN ---
Subjective - Date & Time of Evaluation Date of Evaluation: 08/17/15 Time of Evaluation: 22:22 - Subjective Subjective: c/o r hip pain Objective - Vital Signs/Intake and Output Vital Signs (last 24 hours): Temp Pulse Resp BP Pulse Ox 97.7 F 88 20 128/73 100 08/17/15 16:49 08/17/15 16:49 08/17/15 16:49 08/17/15 16:49 08/17/15 16:49 - Medications Medications: Current Medications Donepezil HCl (Aricept) 10 mg PO HS [facility] Last Admin: 08/16/15 23:48 Dose: 10 mg Gabapentin (Neurontin) 600 mg PO TID [facility] Last Admin: 08/17/15 16:24 Dose: 600 mg Home Med (Carbidopa/Levodopa [Rytary 48.75 Mg-195 Mg]) 3 cap PO TID [facility] Last Admin: 08/17/15 16:24 Dose: 3 cap Hydrocortisone (Hydrocortisone 0.5%) 1 applic TOP BID [facility] Last Admin: 08/17/15 16:24 Dose: 1 applic Midodrine (Proamatine) 5 mg PO TID [facility] Last Admin: 08/17/15 16:25 Dose: 5 mg Quetiapine Fumarate (Seroquel) 50 mg PO HS PRN PRN Reason: Insomnia Last Admin: 08/16/15 23:48 Dose: 50 mg Tramadol HCl (Ultram) 50 mg PO Q6 PRN PRN Reason: Pain, moderate (4-7) Last Admin: 08/17/15 10:54 Dose: 50 mg - Labs Labs: 08/14/15 04:10 08/10/15 08:34 - Respiratory Exam Respiratory Exam: NORMAL BREATHING PATTERN - Cardiovascular Exam Cardiovascular Exam: REGULAR RHYTHM - GI/Abdominal Exam GI & Abdominal Exam: Normal Bowel Sounds Assessment and Plan - Assessment and Plan (Free Text) Assessment: R Hip pain x-rays Disposition?? 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
[2015-08-18 05:28] LABS: HEMOGLOBIN 11.6 g/dL (12.0-18.0); MEAN CELL VOLUME 95.5 fl (80.0-94.0); MEAN CORPUSCULAR HEMOGLOBIN 30.2 pg (27.0-31.0); MEAN CORPUSCULAR HGB CONC 31.7 g/dL (33.0-37.0); RBC 3.83 Mil/uL (4.40-5.90); RED CELL DISTRIBUTION WIDTH 14.8 % (11.5-14.5); WHITE BLOOD COUNT 5.8 K/uL (4.8-10.8)
[2015-08-18 05:31] LABS: BLOOD UREA NITROGEN 28 mg/dl (9-20); CALCIUM 9.1 mg/dL (8.4-10.2); GFR AFRICAN-AMERICAN > 60; GFR NON-AFRICAN AMERICAN > 60
[2015-08-18] MEDS: LEVODOPA PO SCH ×3 (09:09→17:43)
[2015-08-18] MEDS: CARBIDOPA PO SCH ×3 (09:09→17:43)
[2015-08-18] MEDS: Hydrocortisone 0.5% OINT TOP SCH ×2 (13:48→17:43)
--- NOTE | 2015-08-18 17:30 | RAD ---
PROCEDURE: Right Hip radiograph (1, AP view). HISTORY: pain COMPARISON: None. FINDINGS: BONES: Normal. No fracture. JOINTS: Normal. SOFT TISSUES: Normal. OTHER FINDINGS: None. IMPRESSION: No evidence of fracture or other gross abnormality on this single AP view of the right hip.
--- NOTE | 2015-08-18 18:56 | CP.PCM.PN ---
Subjective - Date & Time of Evaluation Date of Evaluation: 08/18/15 Time of Evaluation: 22:22 - Subjective Subjective: Still with hip pain Xrays negative Objective - Vital Signs/Intake and Output Vital Signs (last 24 hours): Temp Pulse Resp BP Pulse Ox 97 F L 81 20 116/69 99 08/18/15 16:40 08/18/15 16:40 08/18/15 16:40 08/18/15 16:40 08/18/15 16:40 - Medications Medications: Current Medications Donepezil HCl (Aricept) 10 mg PO HS [facility] Last Admin: 08/17/15 22:45 Dose: 10 mg Gabapentin (Neurontin) 600 mg PO TID [facility] Last Admin: 08/18/15 17:44 Dose: 600 mg Home Med (Carbidopa/Levodopa [Rytary 48.75 Mg-195 Mg]) 3 cap PO TID [facility] Last Admin: 08/18/15 17:43 Dose: 3 cap Hydrocortisone (Hydrocortisone 0.5%) 1 applic TOP BID [facility] Last Admin: 08/18/15 17:43 Dose: 1 applic Midodrine (Proamatine) 5 mg PO TID [facility] Last Admin: 08/18/15 17:44 Dose: 5 mg Quetiapine Fumarate (Seroquel) 50 mg PO HS PRN PRN Reason: Insomnia Last Admin: 08/16/15 23:48 Dose: 50 mg Tramadol HCl (Ultram) 50 mg PO Q6 PRN PRN Reason: Pain, moderate (4-7) Last Admin: 08/18/15 03:07 Dose: 50 mg - Labs Labs: 08/18/15 05:00 08/18/15 05:00 - Respiratory Exam Respiratory Exam: NORMAL BREATHING PATTERN - Cardiovascular Exam Cardiovascular Exam: REGULAR RHYTHM - GI/Abdominal Exam GI & Abdominal Exam: Normal Bowel Sounds Assessment and Plan - Assessment and Plan (Free Text) Assessment: R Hip pain xrays neg Disposition?? 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
[2015-08-19] MEDS: CARBIDOPA PO SCH ×3 (09:45→16:22)
[2015-08-19] MEDS: LEVODOPA PO SCH ×3 (09:45→16:22)
[2015-08-19] MEDS: Hydrocortisone 0.5% OINT TOP SCH ×2 (09:46→16:22)
--- NOTE | 2015-08-19 14:40 | CP.PCM.PN ---
Subjective - Date & Time of Evaluation Date of Evaluation: 08/19/15 Time of Evaluation: 14:38 - Subjective Subjective: Patient states his right shoulder is painful with movement, and cannot extend his shoulder. He adds having right knee pain, stemming from the right Hip. No other complaints Objective - Vital Signs/Intake and Output Vital Signs (last 24 hours): Temp Pulse Resp BP Pulse Ox 97.3 F L 61 18 111/63 97 08/19/15 07:39 08/19/15 07:39 08/19/15 07:39 08/19/15 07:39 08/19/15 07:39 - Medications Medications: Current Medications Acetaminophen (Tylenol 325mg Tab) 650 mg PO Q6 PRN PRN Reason: Pain, moderate (4-7) Donepezil HCl (Aricept) 10 mg PO HS [facility] Last Admin: 08/18/15 21:21 Dose: 10 mg Gabapentin (Neurontin) 600 mg PO TID [facility] Last Admin: 08/19/15 12:17 Dose: 600 mg Home Med (Carbidopa/Levodopa [Rytary 48.75 Mg-195 Mg]) 3 cap PO TID [facility] Last Admin: 08/19/15 12:17 Dose: 3 cap Hydrocortisone (Hydrocortisone 0.5%) 1 applic TOP BID [facility] Last Admin: 08/19/15 09:46 Dose: 1 applic Lidocaine (Lidoderm) 1 ea TD DAILY [facility] Midodrine (Proamatine) 5 mg PO TID [facility] Last Admin: 08/19/15 12:16 Dose: 5 mg Quetiapine Fumarate (Seroquel) 50 mg PO HS PRN PRN Reason: Insomnia Last Admin: 08/18/15 21:21 Dose: 50 mg Tramadol HCl (Ultram) 50 mg PO Q6 PRN PRN Reason: Pain, moderate (4-7) Last Admin: 08/19/15 07:30 Dose: 50 mg - Labs Labs: 08/18/15 05:00 08/18/15 05:00 - Constitutional Appears: Well, Non-toxic, No Acute Distress - Head Exam Head Exam: ATRAUMATIC, NORMAL INSPECTION, NORMOCEPHALIC - Respiratory Exam Respiratory Exam: Clear to Ausculation Bilateral, Respiratory Distress. absent : Rales, Rhonchi, Wheezes - Cardiovascular Exam Cardiovascular Exam: REGULAR RHYTHM, RRR, +S1, +S2 - GI/Abdominal Exam GI & Abdominal Exam: Soft, Normal Bowel Sounds - Neurological Exam Neurological Exam: Alert, Awake, CN II-XII Intact - Psychiatric Exam Psychiatric exam: Flat Affect Assessment and Plan (1) Fall Status: Acute (2) Shingles outbreak Status: Acute (3) Parkinson disease Status: Chronic (4) Thrombocytopenia Status: Chronic (5) Depression Status: Acute (6) Hypotension Status: Acute (7) DVT prophylaxis Status: Acute - Assessment and Plan (Free Text) Assessment: (1) Fall Hx of frequent fall due to gait disturbance due to advanced Parkinson's Will need PT while in hospital for gait training Will need placement to [facility] -patient has signed documents needed, SW following (2) Osteoarthritis Right Shoulder pain upon extension and Right knee pain will need OT for ROM and exercise tylenol, hot pack and lidoderm patch ordered in addition to Ultram (3) Parkinson disease, chronic Continue Carbidopa/Levodopa (4) Thrombocytopenia, chronic unclear etiology Stable (5) Depression Continue Seroquel psych consulted Patient has competency (6) Hypotension hx of Orthostasis Continue Midodrine (7) Shingles improved Isolation discontinued topical hydrocortizone ID was consulted Pain management (8) DVT prophylaxis Lovenox
[2015-08-19] MEDS: Lidocaine 5% Patch TD SCH (15:44)
[2015-08-20] MEDS: Hydrocortisone 0.5% OINT TOP SCH ×2 (08:40→17:15)
[2015-08-20] MEDS: CARBIDOPA PO SCH ×3 (08:44→17:14)
[2015-08-20] MEDS: LEVODOPA PO SCH ×3 (08:44→17:14)
[2015-08-20] MEDS: Lidocaine 5% Patch TD SCH (08:45)
--- NOTE | 2015-08-20 11:21 | CP.PCM.PN ---
Subjective - Date & Time of Evaluation Date of Evaluation: 08/20/15 Time of Evaluation: 11:45 - Subjective Subjective: Patient ambulates in room with assistance, no acute events overnight. States the heat pack and medication has relieved some of his pain Objective - Vital Signs/Intake and Output Vital Signs (last 24 hours): Temp Pulse Resp BP Pulse Ox 98.1 F 61 18 137/67 98 08/19/15 23:51 08/19/15 23:51 08/19/15 23:51 08/19/15 23:51 08/19/15 23:51 - Medications Medications: Current Medications Acetaminophen (Tylenol 325mg Tab) 650 mg PO Q6 PRN PRN Reason: Pain, moderate (4-7) Last Admin: 08/20/15 03:39 Dose: 650 mg Donepezil HCl (Aricept) 10 mg PO HS [facility] Last Admin: 08/19/15 21:23 Dose: 10 mg Gabapentin (Neurontin) 600 mg PO TID [facility] Last Admin: 08/20/15 08:46 Dose: 600 mg Home Med (Carbidopa/Levodopa [Rytary 48.75 Mg-195 Mg]) 3 cap PO TID [facility] Last Admin: 08/20/15 08:44 Dose: 3 cap Hydrocortisone (Hydrocortisone 0.5%) 1 applic TOP BID [facility] Last Admin: 08/20/15 08:40 Dose: 1 applic Lidocaine (Lidoderm) 1 ea TD DAILY [facility] Last Admin: 08/20/15 08:45 Dose: 1 ea Midodrine (Proamatine) 5 mg PO TID [facility] Last Admin: 08/20/15 08:46 Dose: 5 mg Quetiapine Fumarate (Seroquel) 50 mg PO HS PRN PRN Reason: Insomnia Last Admin: 08/19/15 21:23 Dose: 50 mg Tramadol HCl (Ultram) 50 mg PO Q6 PRN PRN Reason: Pain, moderate (4-7) Last Admin: 08/19/15 23:06 Dose: 50 mg - Labs Labs: 08/18/15 05:00 08/18/15 05:00 - Constitutional Appears: Well, Non-toxic, No Acute Distress - Head Exam Head Exam: ATRAUMATIC, NORMAL INSPECTION, NORMOCEPHALIC - Respiratory Exam Respiratory Exam: Clear to Ausculation Bilateral. absent: Rales, Rhonchi, Wheezes, Respiratory Distress, Stridor - Cardiovascular Exam Cardiovascular Exam: REGULAR RHYTHM, RRR, +S1, +S2. absent: Murmur - GI/Abdominal Exam GI & Abdominal Exam: Soft, Normal Bowel Sounds - Neurological Exam Neurological Exam: Alert, Awake, CN II-XII Intact, Normal Gait, Oriented x3 - Psychiatric Exam Psychiatric exam: Flat Affect Assessment and Plan (1) Fall Status: Acute (2) Shingles outbreak Status: Acute (3) Parkinson disease Status: Chronic (4) Thrombocytopenia Status: Chronic (5) Depression Status: Acute (6) Hypotension Status: Acute (7) DVT prophylaxis Status: Acute - Assessment and Plan (Free Text) Assessment: Assessment: (1) Fall Hx of frequent fall due to gait disturbance due to advanced Parkinson's Will need PT while in hospital for gait training Will need placement to [facility] -patient has signed documents needed, SW following (2) Osteoarthritis Right Shoulder pain upon extension and Right knee pain, improved consulted OT for ROM and exercise continue tylenol prn, hot pack and lidoderm patch, in addition to Ultram (3) Parkinson disease, chronic Continue Carbidopa/Levodopa (4) Thrombocytopenia, chronic unclear etiology Stable (5) Depression Continue Seroquel psych consulted, patient is competent and has capacity (6) Hypotension hx of Orthostasis, Shy Drager Syndrome Continue Midodrine (7) Shingles improved Isolation discontinued topical hydrocortisone ID was consulted Pain management as needed (8) DVT prophylaxis Lovenox
[2015-08-21] MEDS: Hydrocortisone 0.5% OINT TOP SCH ×2 (08:56→16:57)
[2015-08-21] MEDS: LEVODOPA PO SCH ×3 (08:56→16:54)
[2015-08-21] MEDS: CARBIDOPA PO SCH ×3 (08:56→16:54)
[2015-08-21] MEDS: Lidocaine 5% Patch TD SCH (09:00)
--- NOTE | 2015-08-21 20:28 | CP.PCM.PN ---
Subjective - Date & Time of Evaluation Date of Evaluation: 08/21/15 Time of Evaluation: 22:22 - Subjective Subjective: Still with Hip Pain Objective - Vital Signs/Intake and Output Vital Signs (last 24 hours): Temp Pulse Resp BP Pulse Ox 97.7 F 68 20 96/56 L 98 08/21/15 16:55 08/21/15 16:55 08/21/15 07:39 08/21/15 16:55 08/21/15 16:55 - Medications Medications: Current Medications Acetaminophen (Tylenol 325mg Tab) 650 mg PO Q6 PRN PRN Reason: Pain, moderate (4-7) Last Admin: 08/20/15 03:39 Dose: 650 mg Donepezil HCl (Aricept) 10 mg PO HS [facility] Last Admin: 08/20/15 20:59 Dose: 10 mg Gabapentin (Neurontin) 600 mg PO TID [facility] Last Admin: 08/21/15 16:56 Dose: 600 mg Home Med (Carbidopa/Levodopa [Rytary 48.75 Mg-195 Mg]) 3 cap PO TID [facility] Last Admin: 08/21/15 16:54 Dose: 3 cap Hydrocortisone (Hydrocortisone 0.5%) 1 applic TOP BID [facility] Last Admin: 08/21/15 16:57 Dose: 1 applic Lidocaine (Lidoderm) 1 ea TD DAILY [facility] Last Admin: 08/21/15 09:00 Dose: 1 ea Midodrine (Proamatine) 5 mg PO TID [facility] Last Admin: 08/21/15 16:56 Dose: 5 mg Quetiapine Fumarate (Seroquel) 50 mg PO HS PRN PRN Reason: Insomnia Last Admin: 08/21/15 03:41 Dose: 50 mg Tramadol HCl (Ultram) 50 mg PO Q6 PRN PRN Reason: Pain, moderate (4-7) Last Admin: 08/21/15 10:56 Dose: 50 mg - Labs Labs: 08/18/15 05:00 08/18/15 05:00 - Respiratory Exam Respiratory Exam: NORMAL BREATHING PATTERN - Cardiovascular Exam Cardiovascular Exam: REGULAR RHYTHM - GI/Abdominal Exam GI & Abdominal Exam: Normal Bowel Sounds - Rectal Exam Rectal Exam: NORMAL INSPECTION Assessment and Plan - Assessment and Plan (Free Text) Assessment: R Hip pain xrays neg PT Dr De Guzman Disposition?? 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
[2015-08-22] MEDS: LEVODOPA PO SCH ×3 (09:47→17:27)
[2015-08-22] MEDS: CARBIDOPA PO SCH ×3 (09:47→17:27)
[2015-08-22] MEDS: Hydrocortisone 0.5% OINT TOP SCH ×2 (09:48→17:27)
[2015-08-22] MEDS: Lidocaine 5% Patch TD SCH (09:50)
--- NOTE | 2015-08-22 14:56 | CP.PCM.CON ---
History of Present Illness - History of Present Illness History of Present Illness: Hang Gutierrez born 1930, has been admitted to [facility] following a fall. He has had falls in the past He has Parkinson's dz since 1996. He had a right TKR in 1972. His legs feel heavy. He was able to ambulate 100' with a RW and mod A. He lives in multi family dwelling and is alone and clearly is not safe at this point to be alone with ADLs and gait Review of Systems - Constitutional Constitutional: Weakness. absent: Fever, Chills, Sweats, Malaise - EENT Eyes: Blurred Vision - Cardiovascular Cardiovascular: UNREMARKABLE - Respiratory Respiratory: UNREMARKABLE - Musculoskeletal Musculoskeletal: Arthralgias, Stiffness - Integumentary Integumentary: UNREMARKABLE - Neurological Neurological: Abnormal Gait, Tremor - Psychiatric Psychiatric: UNREMARKABLE Past Patient History - Tetanus Immunizations Tetanus Immunization: Unknown - Past Medical History & Family History Past Medical History?: Yes - Past Social History Smoking Status: Never Smoked - CARDIAC Hx Cardiac Disorders: No Hx Congestive Heart Failure: No Hx Hypercholesterolemia: No Hx Hypertension: No - PULMONARY Hx Chronic Obstructive Pulmonary Disease (COPD): No - NEUROLOGICAL HX Cerebrovascular Accident: No - HEENT Hx HEENT Problems: Yes Hx Cataracts: No Hx Deafness: No Hx Difficulty Chewing: No Hx Epistaxis: No Hx Glaucoma: Yes Hx Macular Degeneration: No - RENAL Hx Renal Failure: No - ENDOCRINE/METABOLIC Hx Diabetes Mellitus Type 1: No Hx Diabetes Mellitus Type 2: No Hx Hypothyroidism: No - HEMATOLOGICAL/ONCOLOGICAL Hx Anemia: No Hx Human Immunodeficiency Virus (HIV): No Hx Sickle Cell Disease: No - INTEGUMENTARY Hx Dermatological Problems: No Hx Basil Cell: No Hx Silva: No Hx Cellulitis: Yes (right leg) Hx Eczema: No Hx Melanoma: No Hx Psoriasis: No Hx Squamous Cell: No - MUSCULOSKELETAL/RHEUMATOLOGICAL Hx Arthritis: No Hx Rheumatoid Arthritis: No - GASTROINTESTINAL Hx Crohn's Disease: No Hx Diverticulitis: No Hx Gall Bladder Disease: No Hx Gastritis: No Hx Pancreatitis: No - GENITOURINARY/GYNECOLOGICAL Hx Sexually Transmitted Disorders: No - PSYCHIATRIC Hx Anxiety: Yes Hx Depression: Yes - SURGICAL HISTORY Hx Appendectomy: Yes Hx Carotid Endarterectomy: No Hx Cholecystectomy: No Hx Coronary Artery Bypass Graft: No Hx Coronary Stent: No Hx Tonsillectomy: Yes - ANESTHESIA Hx Anesthesia: Yes Hx Anesthesia Reactions: No Hx Malignant Hyperthermia: No Meds Allergies/Adverse Reactions: Allergies Allergy/AdvReac Type Severity Reaction Status Date / Time Penicillins Allergy Hives Verified 08/01/15 06:34 - Medications Medications: Current Medications Acetaminophen (Tylenol 325mg Tab) 650 mg PO Q6 PRN PRN Reason: Pain, moderate (4-7) Last Admin: 08/20/15 03:39 Dose: 650 mg Donepezil HCl (Aricept) 10 mg PO HS [facility] Last Admin: 08/21/15 21:51 Dose: 10 mg Gabapentin (Neurontin) 600 mg PO TID [facility] Last Admin: 08/22/15 13:23 Dose: 600 mg Home Med (Carbidopa/Levodopa [Rytary 48.75 Mg-195 Mg]) 3 cap PO TID [facility] Last Admin: 08/22/15 13:22 Dose: 3 cap Hydrocortisone (Hydrocortisone 0.5%) 1 applic TOP BID [facility] Last Admin: 08/22/15 09:48 Dose: 1 applic Lidocaine (Lidoderm) 1 ea TD DAILY [facility] Last Admin: 08/22/15 09:50 Dose: 1 ea Midodrine (Proamatine) 5 mg PO TID [facility] Last Admin: 08/22/15 13:23 Dose: 5 mg Quetiapine Fumarate (Seroquel) 50 mg PO HS PRN PRN Reason: Insomnia Last Admin: 08/21/15 21:51 Dose: 50 mg Tramadol HCl (Ultram) 50 mg PO Q6 PRN PRN Reason: Pain, moderate (4-7) Last Admin: 08/22/15 03:03 Dose: 50 mg Physical Exam - Constitutional Appears: Well, Non-toxic, No Acute Distress - Head Exam Head Exam: ATRAUMATIC, NORMAL INSPECTION, NORMOCEPHALIC - Eye Exam Eye Exam: EOMI - ENT Exam ENT Exam: Mucous Membranes Moist - Respiratory Exam Respiratory Exam: NORMAL BREATHING PATTERN - Cardiovascular Exam Cardiovascular Exam: REGULAR RHYTHM Results - Vital Signs Recent Vital Signs: Last Vital Signs Temp 97.7 F 08/22/15 08:44 Pulse 84 08/22/15 08:44 Resp 18 08/22/15 08:44 BP 152/84 H 08/22/15 08:44 Pulse Ox 100 08/22/15 08:44 - Labs Result Diagrams: 08/18/15 05:00 08/18/15 05:00 Assessment/Plan - Assessment and Plan (Free Text) Plan: He has a right hand resting tremor right shoulder with chronic pain and past dislocations poor ROM left UE good ROM right knee evidence of past TKR. fair strength He will need further rehab before d/c home and he may be a good candidate for the [facility] or [facility] depending on his wishes
--- NOTE | 2015-08-22 22:29 | CP.PCM.PN ---
Subjective - Date & Time of Evaluation Date of Evaluation: 08/22/15 Time of Evaluation: 22:22 - Subjective Subjective: Above consult appreciated Objective - Vital Signs/Intake and Output Vital Signs (last 24 hours): Temp Pulse Resp BP Pulse Ox 96.4 F L 80 20 157/84 H 99 08/22/15 16:27 08/22/15 16:27 08/22/15 16:27 08/22/15 16:27 08/22/15 16:27 - Medications Medications: Current Medications Acetaminophen (Tylenol 325mg Tab) 650 mg PO Q6 PRN PRN Reason: Pain, moderate (4-7) Last Admin: 08/20/15 03:39 Dose: 650 mg Donepezil HCl (Aricept) 10 mg PO HS [facility] Last Admin: 08/22/15 21:52 Dose: 10 mg Gabapentin (Neurontin) 600 mg PO TID [facility] Last Admin: 08/22/15 17:27 Dose: 600 mg Home Med (Carbidopa/Levodopa [Rytary 48.75 Mg-195 Mg]) 3 cap PO TID [facility] Last Admin: 08/22/15 17:27 Dose: 3 cap Hydrocortisone (Hydrocortisone 0.5%) 1 applic TOP BID [facility] Last Admin: 08/22/15 17:27 Dose: 1 applic Lidocaine (Lidoderm) 1 ea TD DAILY [facility] Last Admin: 08/22/15 09:50 Dose: 1 ea Midodrine (Proamatine) 5 mg PO TID [facility] Last Admin: 08/22/15 17:27 Dose: 5 mg Quetiapine Fumarate (Seroquel) 50 mg PO HS PRN PRN Reason: Insomnia Last Admin: 08/21/15 21:51 Dose: 50 mg Tramadol HCl (Ultram) 50 mg PO Q6 PRN PRN Reason: Pain, moderate (4-7) Last Admin: 08/22/15 03:03 Dose: 50 mg - Labs Labs: 08/18/15 05:00 08/18/15 05:00 - Respiratory Exam Respiratory Exam: NORMAL BREATHING PATTERN - Cardiovascular Exam Cardiovascular Exam: REGULAR RHYTHM - GI/Abdominal Exam GI & Abdominal Exam: Normal Bowel Sounds Assessment and Plan - Assessment and Plan (Free Text) Assessment: R Hip pain PT Disposition?? 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
[2015-08-23] MEDS: CARBIDOPA PO SCH ×3 (09:00→16:46)
[2015-08-23] MEDS: LEVODOPA PO SCH ×3 (09:00→16:46)
[2015-08-23] MEDS: Lidocaine 5% Patch TD SCH (13:12)
[2015-08-23] MEDS: Hydrocortisone 0.5% OINT TOP SCH ×2 (13:16→16:46)
--- NOTE | 2015-08-23 19:31 | CP.PCM.PN ---
Subjective - Date & Time of Evaluation Date of Evaluation: 08/23/15 Time of Evaluation: 22:22 - Subjective Subjective: Doing well Objective - Vital Signs/Intake and Output Vital Signs (last 24 hours): Temp Pulse Resp BP Pulse Ox 97.7 F 54 L 20 111/53 L 97 08/23/15 16:24 08/23/15 16:24 08/23/15 16:24 08/23/15 16:24 08/23/15 16:24 - Medications Medications: Current Medications Acetaminophen (Tylenol 325mg Tab) 650 mg PO Q6 PRN PRN Reason: Pain, moderate (4-7) Last Admin: 08/20/15 03:39 Dose: 650 mg Donepezil HCl (Aricept) 10 mg PO HS [facility] Last Admin: 08/22/15 21:52 Dose: 10 mg Gabapentin (Neurontin) 600 mg PO TID [facility] Last Admin: 08/23/15 16:46 Dose: 600 mg Home Med (Carbidopa/Levodopa [Rytary 48.75 Mg-195 Mg]) 3 cap PO TID [facility] Last Admin: 08/23/15 16:46 Dose: 3 cap Hydrocortisone (Hydrocortisone 0.5%) 1 applic TOP BID [facility] Last Admin: 08/23/15 16:46 Dose: 1 applic Lidocaine (Lidoderm) 1 ea TD DAILY [facility] Last Admin: 08/23/15 13:12 Dose: 1 ea Midodrine (Proamatine) 5 mg PO TID [facility] Last Admin: 08/23/15 16:47 Dose: 5 mg Quetiapine Fumarate (Seroquel) 50 mg PO HS PRN PRN Reason: Insomnia Last Admin: 08/23/15 01:42 Dose: 50 mg Tramadol HCl (Ultram) 50 mg PO Q6 PRN PRN Reason: Pain, moderate (4-7) Last Admin: 08/23/15 01:42 Dose: 50 mg - Labs Labs: 08/18/15 05:00 08/18/15 05:00 - Respiratory Exam Respiratory Exam: NORMAL BREATHING PATTERN - Cardiovascular Exam Cardiovascular Exam: REGULAR RHYTHM - GI/Abdominal Exam GI & Abdominal Exam: Normal Bowel Sounds Assessment and Plan - Assessment and Plan (Free Text) Assessment: R Hip pain PT Disposition?? 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
[2015-08-24] MEDS: CARBIDOPA PO SCH ×3 (08:54→16:32)
[2015-08-24] MEDS: LEVODOPA PO SCH ×3 (08:54→16:32)
[2015-08-24] MEDS: Lidocaine 5% Patch TD SCH (08:55)
[2015-08-24] MEDS: Hydrocortisone 0.5% OINT TOP SCH ×2 (09:00→16:33)
--- NOTE | 2015-08-24 20:02 | CP.PCM.PN ---
Subjective - Date & Time of Evaluation Date of Evaluation: 08/24/15 Time of Evaluation: 22:22 - Subjective Subjective: No change in status Objective - Vital Signs/Intake and Output Vital Signs (last 24 hours): Temp Pulse Resp BP Pulse Ox 97.7 F 77 18 141/88 98 08/24/15 16:34 08/24/15 16:34 08/24/15 16:34 08/24/15 16:34 08/24/15 16:34 - Medications Medications: Current Medications Acetaminophen (Tylenol 325mg Tab) 650 mg PO Q6 PRN PRN Reason: Pain, moderate (4-7) Last Admin: 08/20/15 03:39 Dose: 650 mg Donepezil HCl (Aricept) 10 mg PO HS [facility] Last Admin: 08/23/15 20:59 Dose: 10 mg Gabapentin (Neurontin) 600 mg PO TID [facility] Last Admin: 08/24/15 16:33 Dose: 600 mg Home Med (Carbidopa/Levodopa [Rytary 48.75 Mg-195 Mg]) 3 cap PO TID [facility] Last Admin: 08/24/15 16:32 Dose: 3 cap Hydrocortisone (Hydrocortisone 0.5%) 1 applic TOP BID [facility] Last Admin: 08/24/15 16:33 Dose: 1 applic Lidocaine (Lidoderm) 1 ea TD DAILY [facility] Last Admin: 08/24/15 08:55 Dose: 1 ea Midodrine (Proamatine) 5 mg PO TID [facility] Last Admin: 08/24/15 16:33 Dose: 5 mg Quetiapine Fumarate (Seroquel) 50 mg PO HS PRN PRN Reason: Insomnia Last Admin: 08/23/15 20:55 Dose: 50 mg Tramadol HCl (Ultram) 50 mg PO Q6 PRN PRN Reason: Pain, moderate (4-7) Last Admin: 08/24/15 11:46 Dose: 50 mg - Labs Labs: 08/18/15 05:00 08/18/15 05:00 - Respiratory Exam Respiratory Exam: NORMAL BREATHING PATTERN - Cardiovascular Exam Cardiovascular Exam: REGULAR RHYTHM - GI/Abdominal Exam GI & Abdominal Exam: Normal Bowel Sounds Assessment and Plan - Assessment and Plan (Free Text) Assessment: Disposition?? 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
[2015-08-25] MEDS: LEVODOPA PO SCH ×3 (08:38→16:25)
[2015-08-25] MEDS: CARBIDOPA PO SCH ×3 (08:38→16:25)
[2015-08-25] MEDS: Lidocaine 5% Patch TD SCH (08:39)
[2015-08-25] MEDS: Hydrocortisone 0.5% OINT TOP SCH ×2 (08:40→16:25)
--- NOTE | 2015-08-25 13:06 | CP.PCM.PN ---
Subjective - Date & Time of Evaluation Date of Evaluation: 08/25/15 Time of Evaluation: 14:00 - Subjective Subjective: no change off antibiotics plt count trending down will repeat Objective - Vital Signs/Intake and Output Vital Signs (last 24 hours): Temp Pulse Resp BP Pulse Ox 98.1 F 113 H 20 135/78 91 L 08/25/15 08:33 08/25/15 08:33 08/25/15 08:33 08/25/15 08:33 08/25/15 08:33 - Medications Medications: Current Medications Acetaminophen (Tylenol 325mg Tab) 650 mg PO Q6 PRN PRN Reason: Pain, moderate (4-7) Last Admin: 08/25/15 02:45 Dose: 650 mg Donepezil HCl (Aricept) 10 mg PO HS [facility] Last Admin: 08/24/15 21:26 Dose: 10 mg Gabapentin (Neurontin) 600 mg PO TID [facility] Last Admin: 08/25/15 08:37 Dose: 600 mg Home Med (Carbidopa/Levodopa [Rytary 48.75 Mg-195 Mg]) 3 cap PO TID [facility] Last Admin: 08/25/15 08:38 Dose: 3 cap Hydrocortisone (Hydrocortisone 0.5%) 1 applic TOP BID [facility] Last Admin: 08/25/15 08:40 Dose: 1 applic Lidocaine (Lidoderm) 1 ea TD DAILY [facility] Last Admin: 08/25/15 08:39 Dose: 1 ea Midodrine (Proamatine) 5 mg PO TID [facility] Last Admin: 08/25/15 08:38 Dose: 5 mg Quetiapine Fumarate (Seroquel) 50 mg PO HS PRN PRN Reason: Insomnia Last Admin: 08/24/15 21:26 Dose: 50 mg Tramadol HCl (Ultram) 50 mg PO Q6 PRN PRN Reason: Pain, moderate (4-7) Last Admin: 08/25/15 02:45 Dose: 50 mg - Labs Labs: 08/18/15 05:00 08/18/15 05:00 - Constitutional Appears: Chronically Ill - Head Exam Head Exam: NORMAL INSPECTION - Eye Exam Eye Exam: absent: Scleral icterus - ENT Exam ENT Exam: Mucous Membranes Moist - Neck Exam Neck Exam: Normal Inspection - Respiratory Exam Respiratory Exam: NORMAL BREATHING PATTERN - Cardiovascular Exam Cardiovascular Exam: REGULAR RHYTHM - GI/Abdominal Exam GI & Abdominal Exam: Soft. absent: Tenderness Assessment and Plan (1) Shingles outbreak Status: Acute (2) Thigh shingles Status: Acute
--- NOTE | 2015-08-25 18:06 | CP.PCM.PN ---
Subjective - Date & Time of Evaluation Date of Evaluation: 08/25/15 Time of Evaluation: 22:22 - Subjective Subjective: Above noted Objective - Vital Signs/Intake and Output Vital Signs (last 24 hours): Temp Pulse Resp BP Pulse Ox 97.5 F L 76 20 154/72 H 97 08/25/15 16:27 08/25/15 16:27 08/25/15 16:27 08/25/15 16:27 08/25/15 16:27 - Medications Medications: Current Medications Acetaminophen (Tylenol 325mg Tab) 650 mg PO Q6 PRN PRN Reason: Pain, moderate (4-7) Last Admin: 08/25/15 02:45 Dose: 650 mg Donepezil HCl (Aricept) 10 mg PO HS [facility] Last Admin: 08/24/15 21:26 Dose: 10 mg Gabapentin (Neurontin) 600 mg PO TID [facility] Last Admin: 08/25/15 16:25 Dose: 600 mg Home Med (Carbidopa/Levodopa [Rytary 48.75 Mg-195 Mg]) 3 cap PO TID [facility] Last Admin: 08/25/15 16:25 Dose: 3 cap Hydrocortisone (Hydrocortisone 0.5%) 1 applic TOP BID [facility] Last Admin: 08/25/15 16:25 Dose: 1 applic Lidocaine (Lidoderm) 1 ea TD DAILY [facility] Last Admin: 08/25/15 08:39 Dose: 1 ea Midodrine (Proamatine) 5 mg PO TID [facility] Last Admin: 08/25/15 16:24 Dose: 5 mg Quetiapine Fumarate (Seroquel) 50 mg PO HS PRN PRN Reason: Insomnia Last Admin: 08/24/15 21:26 Dose: 50 mg Tramadol HCl (Ultram) 50 mg PO Q6 PRN PRN Reason: Pain, moderate (4-7) Last Admin: 08/25/15 02:45 Dose: 50 mg - Labs Labs: 08/18/15 05:00 08/18/15 05:00 - Respiratory Exam Respiratory Exam: NORMAL BREATHING PATTERN - Cardiovascular Exam Cardiovascular Exam: REGULAR RHYTHM - GI/Abdominal Exam GI & Abdominal Exam: Normal Bowel Sounds Assessment and Plan - Assessment and Plan (Free Text) Assessment: Platelets?? Disposition?? 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
[2015-08-26] MEDS: CARBIDOPA PO SCH ×3 (08:55→16:21)
[2015-08-26] MEDS: LEVODOPA PO SCH ×3 (08:55→16:21)
[2015-08-26] MEDS: Hydrocortisone 0.5% OINT TOP SCH ×2 (08:55→17:05)
[2015-08-26] MEDS: Lidocaine 5% Patch TD SCH (08:56)
--- NOTE | 2015-08-26 10:24 | CP.PCM.PN ---
Subjective - Date & Time of Evaluation Date of Evaluation: 08/26/15 Time of Evaluation: 10:00 - Subjective Subjective: Patient seen and evaluated bedside, no current complaints, waiting for placement. +Parkinsons, no SOB, no CP, no abd pain, no acute distress, afebrile. Objective - Vital Signs/Intake and Output Vital Signs (last 24 hours): Temp Pulse Resp BP Pulse Ox 96.3 F L 63 20 145/77 100 08/26/15 08:06 08/26/15 08:06 08/26/15 08:06 08/26/15 08:06 08/26/15 08:06 - Medications Medications: Current Medications Acetaminophen (Tylenol 325mg Tab) 650 mg PO Q6 PRN PRN Reason: Pain, moderate (4-7) Last Admin: 08/25/15 02:45 Dose: 650 mg Donepezil HCl (Aricept) 10 mg PO HS [facility] Last Admin: 08/25/15 22:52 Dose: 10 mg Gabapentin (Neurontin) 600 mg PO TID [facility] Last Admin: 08/26/15 08:55 Dose: 600 mg Home Med (Carbidopa/Levodopa [Rytary 48.75 Mg-195 Mg]) 3 cap PO TID [facility] Last Admin: 08/26/15 08:55 Dose: 3 cap Hydrocortisone (Hydrocortisone 0.5%) 1 applic TOP BID [facility] Last Admin: 08/26/15 08:55 Dose: 1 applic Lidocaine (Lidoderm) 1 ea TD DAILY [facility] Last Admin: 08/26/15 08:56 Dose: 1 ea Midodrine (Proamatine) 5 mg PO TID [facility] Last Admin: 08/26/15 08:55 Dose: 5 mg Quetiapine Fumarate (Seroquel) 50 mg PO HS PRN PRN Reason: Insomnia Last Admin: 08/25/15 23:41 Dose: 50 mg Tramadol HCl (Ultram) 50 mg PO Q6 PRN PRN Reason: Pain, moderate (4-7) Last Admin: 08/25/15 23:41 Dose: 50 mg - Labs Labs: 08/18/15 05:00 08/18/15 05:00 - Constitutional Appears: Non-toxic, No Acute Distress - Head Exam Head Exam: ATRAUMATIC, NORMOCEPHALIC - Eye Exam Eye Exam: EOMI, Normal appearance, PERRL Pupil Exam: NORMAL ACCOMODATION - ENT Exam ENT Exam: Mucous Membranes Moist, Normal Oropharynx - Neck Exam Neck Exam: Normal Inspection. absent: Lymphadenopathy - Respiratory Exam Respiratory Exam: Decreased Breath Sounds, Clear to Ausculation Bilateral. absent: Rales, Rhonchi - Cardiovascular Exam Cardiovascular Exam: RRR, +S1, +S2. absent: Gallop, Rubs - GI/Abdominal Exam GI & Abdominal Exam: Soft, Normal Bowel Sounds. absent: Tenderness - Extremities Exam Extremities Exam: Normal Capillary Refill. absent: Tenderness - Back Exam Back Exam: absent: CVA tenderness (L), CVA tenderness (R), rash noted - Neurological Exam Neurological Exam: Alert, Altered, Awake - Psychiatric Exam Psychiatric exam: Normal Affect, Normal Mood - Skin Skin Exam: Dry, Warm Assessment and Plan (1) Fall Status: Acute (2) Atrial fibrillation Status: Chronic (3) Parkinson disease Status: Chronic (4) Orthostasis Status: Chronic (5) Thrombocytopenia Status: Chronic (6) Depression Status: Acute (7) DVT prophylaxis Status: Acute - Assessment and Plan (Free Text) Plan: (1) Fall Hx of frequent fall due to gait disturbance due to advanced Parkinson's Continue PT Will need placement to [facility] 24 hour home health care, following (2) Shingles improved Isolation discontinued topical hydrocortizone ID was consulted, currently off ABX. Pain management (3) Parkinson disease, chronic Continue Carbidopa/Levodopa (4) Thrombocytopenia, chronic unclear etiology Repeat plt today, manual if required. (5) Depression Continue Seroquel psych consulted Patient has competency (6) Hypotension hx of Orthostasis Continue Midodrine (7) DVT prophylaxis Lovenox
[2015-08-27] MEDS: Lidocaine 5% Patch TD SCH (08:51)
[2015-08-27] MEDS: LEVODOPA PO SCH ×3 (08:53→16:11)
[2015-08-27] MEDS: Hydrocortisone 0.5% OINT TOP SCH ×2 (08:53→16:10)
[2015-08-27] MEDS: CARBIDOPA PO SCH ×3 (08:53→16:11)
--- NOTE | 2015-08-27 10:23 | CP.PCM.PN ---
Subjective - Date & Time of Evaluation Date of Evaluation: 08/27/15 Time of Evaluation: 09:40 - Subjective Subjective: no sob, no cp, comfortable this am. discussed the weather, awake and alert. + parkinsons dementia. no sob, cp, abd pain, vss. NAD. Objective - Vital Signs/Intake and Output Vital Signs (last 24 hours): Temp Pulse Resp BP Pulse Ox 97.9 F 83 20 129/68 96 08/27/15 09:04 08/27/15 09:04 08/27/15 09:04 08/27/15 09:04 08/27/15 09:04 - Medications Medications: Current Medications Acetaminophen (Tylenol 325mg Tab) 650 mg PO Q6 PRN PRN Reason: Pain, moderate (4-7) Last Admin: 08/25/15 02:45 Dose: 650 mg Donepezil HCl (Aricept) 10 mg PO HS [facility] Last Admin: 08/26/15 21:31 Dose: 10 mg Gabapentin (Neurontin) 600 mg PO TID [facility] Last Admin: 08/27/15 08:54 Dose: 600 mg Home Med (Carbidopa/Levodopa [Rytary 48.75 Mg-195 Mg]) 3 cap PO TID [facility] Last Admin: 08/27/15 08:53 Dose: 3 cap Hydrocortisone (Hydrocortisone 0.5%) 1 applic TOP BID [facility] Last Admin: 08/27/15 08:53 Dose: 1 applic Lidocaine (Lidoderm) 1 ea TD DAILY [facility] Last Admin: 08/27/15 08:51 Dose: 1 ea Midodrine (Proamatine) 5 mg PO TID [facility] Last Admin: 08/27/15 08:53 Dose: 5 mg Quetiapine Fumarate (Seroquel) 50 mg PO HS PRN PRN Reason: Insomnia Last Admin: 08/26/15 16:20 Dose: 50 mg Tramadol HCl (Ultram) 50 mg PO Q6 PRN PRN Reason: Pain, moderate (4-7) Last Admin: 08/27/15 08:50 Dose: 50 mg - Labs Labs: 08/18/15 05:00 08/18/15 05:00 - Additional Findings Additional findings: GENERAL APPEARANCE: Well developed, well nourished, alert and cooperative, and appears to be in no acute distress.HEAD: normocephalic. atraumatic.EYES: PERRL, EOMI. Fundi normal, vision is grossly intact.EARS: External auditory canals clear, hearing grossly intact.NOSE: No nasal discharge.THROAT: Oral cavity and pharynx normal. No inflammation, swelling, exudate, or lesions. NECK: Neck supple, non-tender without lymphadenopathy, masses or thyromegaly.CARDIAC: Normal S1 and S2. No S3, S4 or murmurs. Rhythm is regular. There is no peripheral edema, cyanosis or pallor. Extremities are warm and well perfused. .LUNGS: Clear to auscultation and percussion without rales, rhonchi, wheezing or diminished breath sounds.ABDOMEN: Positive bowel sounds. Soft, nondistended, nontender. No guarding or rebound. No masses.BACK: Examination of the spine reveals normal posture, no spinal deformityEXTREMITIES: No significant deformity or joint abnormality. No edema. Peripheral pulses intact.NEUROLOGICAL : Strength and sensation symmetric and intact throughout. Reflexes 2+ throughout. SKIN: Skin normal color, texture and turgor with no lesions or eruptions.PSYCHIATRIC: normal mood, affect appropriate Assessment and Plan (1) Fall Status: Acute (2) Atrial fibrillation Status: Chronic (3) Parkinson disease Status: Chronic (4) Orthostasis Status: Chronic (5) Thrombocytopenia Status: Chronic (6) Depression Status: Acute (7) DVT prophylaxis Status: Acute - Assessment and Plan (Free Text) Plan: (1) Fall Patient stable, +parkinsons dementia. Hx of frequent fall due to gait disturbance due to advanced Parkinson's Continue PT Will need placement to [facility] 24 hour home health care, following (2) Shingles improved Isolation discontinued topical hydrocortizone ID was consulted, currently off ABX. Pain management (3) Parkinson disease, chronic Continue Carbidopa/Levodopa (4) Thrombocytopenia, chronic unclear etiology Repeat plt today, manual if required. (5) Depression Continue Seroquel psych consulted Patient has competency (6) Hypotension hx of Orthostasis Continue Midodrine (7) DVT prophylaxis Lovenox
[2015-08-28] MEDS: CARBIDOPA PO SCH ×3 (09:00→16:18)
[2015-08-28] MEDS: LEVODOPA PO SCH ×3 (09:00→16:18)
[2015-08-28] MEDS: Lidocaine 5% Patch TD SCH (09:01)
[2015-08-28] MEDS: Hydrocortisone 0.5% OINT TOP SCH ×2 (09:02→16:18)
--- NOTE | 2015-08-28 21:00 | CP.PCM.PN ---
Subjective - Date & Time of Evaluation Date of Evaluation: 08/28/15 Time of Evaluation: 22:22 - Subjective Subjective: Doing well Repeat manual plat 120k Objective - Vital Signs/Intake and Output Vital Signs (last 24 hours): Temp Pulse Resp BP Pulse Ox 97.7 F 75 20 155/89 H 99 08/28/15 16:39 08/28/15 16:39 08/28/15 16:39 08/28/15 16:39 08/28/15 16:39 - Medications Medications: Current Medications Acetaminophen (Tylenol 325mg Tab) 650 mg PO Q6 PRN PRN Reason: Pain, moderate (4-7) Last Admin: 08/27/15 22:28 Dose: 650 mg Donepezil HCl (Aricept) 10 mg PO HS [facility] Last Admin: 08/27/15 20:59 Dose: 10 mg Gabapentin (Neurontin) 600 mg PO TID [facility] Last Admin: 08/28/15 16:18 Dose: 600 mg Home Med (Carbidopa/Levodopa [Rytary 48.75 Mg-195 Mg]) 3 cap PO TID [facility] Last Admin: 08/28/15 16:18 Dose: 3 cap Hydrocortisone (Hydrocortisone 0.5%) 1 applic TOP BID [facility] Last Admin: 08/28/15 16:18 Dose: 1 applic Lidocaine (Lidoderm) 1 ea TD DAILY [facility] Last Admin: 08/28/15 09:01 Dose: 1 ea Midodrine (Proamatine) 5 mg PO TID [facility] Last Admin: 08/28/15 16:18 Dose: 5 mg Quetiapine Fumarate (Seroquel) 50 mg PO HS PRN PRN Reason: FOR AGITATION Tramadol HCl (Ultram) 50 mg PO Q6 PRN PRN Reason: Pain, moderate (4-7) Last Admin: 08/28/15 09:23 Dose: 50 mg - Labs Labs: 08/18/15 05:00 08/18/15 05:00 - Respiratory Exam Respiratory Exam: NORMAL BREATHING PATTERN - Cardiovascular Exam Cardiovascular Exam: REGULAR RHYTHM - GI/Abdominal Exam GI & Abdominal Exam: Normal Bowel Sounds Assessment and Plan - Assessment and Plan (Free Text) Assessment: Platelets repeat 120k Disposition?? 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
[2015-08-29] MEDS: CARBIDOPA PO SCH ×3 (08:55→16:32)
[2015-08-29] MEDS: Hydrocortisone 0.5% OINT TOP SCH ×2 (08:55→16:31)
[2015-08-29] MEDS: LEVODOPA PO SCH ×3 (08:55→16:32)
[2015-08-29] MEDS: Lidocaine 5% Patch TD SCH (08:56)
--- NOTE | 2015-08-29 21:28 | CP.PCM.PN ---
Subjective - Date & Time of Evaluation Date of Evaluation: 08/29/15 Time of Evaluation: 22:22 - Subjective Subjective: No change ion status Objective - Vital Signs/Intake and Output Vital Signs (last 24 hours): Temp Pulse Resp BP Pulse Ox 97.5 F L 77 20 116/62 98 08/29/15 17:12 08/29/15 17:12 08/29/15 17:12 08/29/15 17:12 08/29/15 17:12 - Medications Medications: Current Medications Acetaminophen (Tylenol 325mg Tab) 650 mg PO Q6 PRN PRN Reason: Pain, moderate (4-7) Last Admin: 08/29/15 13:21 Dose: 650 mg Donepezil HCl (Aricept) 10 mg PO HS [facility] Last Admin: 08/28/15 22:44 Dose: 10 mg Gabapentin (Neurontin) 600 mg PO TID [facility] Last Admin: 08/29/15 16:32 Dose: 600 mg Home Med (Carbidopa/Levodopa [Rytary 48.75 Mg-195 Mg]) 3 cap PO TID [facility] Last Admin: 08/29/15 16:32 Dose: 3 cap Hydrocortisone (Hydrocortisone 0.5%) 1 applic TOP BID [facility] Last Admin: 08/29/15 16:31 Dose: 1 applic Lidocaine (Lidoderm) 1 ea TD DAILY [facility] Last Admin: 08/29/15 08:56 Dose: 1 ea Midodrine (Proamatine) 5 mg PO TID [facility] Last Admin: 08/29/15 16:33 Dose: 5 mg Quetiapine Fumarate (Seroquel) 50 mg PO HS PRN PRN Reason: FOR AGITATION Tramadol HCl (Ultram) 50 mg PO Q6 PRN PRN Reason: Pain, moderate (4-7) Last Admin: 08/29/15 20:02 Dose: 50 mg - Labs Labs: 08/18/15 05:00 08/18/15 05:00 - Respiratory Exam Respiratory Exam: NORMAL BREATHING PATTERN - Cardiovascular Exam Cardiovascular Exam: REGULAR RHYTHM - GI/Abdominal Exam GI & Abdominal Exam: Normal Bowel Sounds Assessment and Plan - Assessment and Plan (Free Text) Assessment: Disposition?? 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
[2015-08-30] MEDS: LEVODOPA PO SCH ×3 (09:00→16:12)
[2015-08-30] MEDS: CARBIDOPA PO SCH ×3 (09:00→16:12)
[2015-08-30] MEDS: Lidocaine 5% Patch TD SCH (09:00)
[2015-08-30] MEDS: Hydrocortisone 0.5% OINT TOP SCH ×2 (09:00→16:14)
--- NOTE | 2015-08-30 17:37 | CP.PCM.PN ---
Subjective - Date & Time of Evaluation Date of Evaluation: 08/30/15 Time of Evaluation: 22:22 - Subjective Subjective: Doing well Objective - Vital Signs/Intake and Output Vital Signs (last 24 hours): Temp Pulse Resp BP Pulse Ox 97.5 F L 63 20 147/90 100 08/30/15 16:31 08/30/15 16:31 08/30/15 16:31 08/30/15 16:31 08/30/15 16:31 - Medications Medications: Current Medications Acetaminophen (Tylenol 325mg Tab) 650 mg PO Q6 PRN PRN Reason: Pain, moderate (4-7) Last Admin: 08/29/15 13:21 Dose: 650 mg Donepezil HCl (Aricept) 10 mg PO HS [facility] Last Admin: 08/29/15 21:57 Dose: 10 mg Gabapentin (Neurontin) 600 mg PO TID [facility] Last Admin: 08/30/15 16:13 Dose: 600 mg Home Med (Carbidopa/Levodopa [Rytary 48.75 Mg-195 Mg]) 3 cap PO TID [facility] Last Admin: 08/30/15 16:12 Dose: 3 cap Hydrocortisone (Hydrocortisone 0.5%) 1 applic TOP BID [facility] Last Admin: 08/30/15 16:14 Dose: 1 applic Lidocaine (Lidoderm) 1 ea TD DAILY [facility] Last Admin: 08/30/15 09:00 Dose: 1 ea Midodrine (Proamatine) 5 mg PO TID [facility] Last Admin: 08/30/15 16:13 Dose: 5 mg Quetiapine Fumarate (Seroquel) 50 mg PO HS PRN PRN Reason: FOR AGITATION Tramadol HCl (Ultram) 50 mg PO Q6 PRN PRN Reason: Pain, moderate (4-7) Last Admin: 08/29/15 20:02 Dose: 50 mg - Labs Labs: 08/18/15 05:00 08/18/15 05:00 - Respiratory Exam Respiratory Exam: NORMAL BREATHING PATTERN - Cardiovascular Exam Cardiovascular Exam: REGULAR RHYTHM - GI/Abdominal Exam GI & Abdominal Exam: Normal Bowel Sounds Assessment and Plan - Assessment and Plan (Free Text) Assessment: Disposition?? 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
[2015-08-31] MEDS: CARBIDOPA PO SCH ×3 (08:28→17:27)
[2015-08-31] MEDS: Hydrocortisone 0.5% OINT TOP SCH ×2 (08:28→17:27)
[2015-08-31] MEDS: Lidocaine 5% Patch TD SCH (08:28)
[2015-08-31] MEDS: LEVODOPA PO SCH ×3 (08:28→17:27)
--- NOTE | 2015-08-31 21:04 | CP.PCM.PN ---
Subjective - Date & Time of Evaluation Date of Evaluation: 08/31/15 Time of Evaluation: 22:22 - Subjective Subjective: Resting Objective - Vital Signs/Intake and Output Vital Signs (last 24 hours): Temp Pulse Resp BP Pulse Ox 97.2 F L 61 20 114/55 L 97 08/31/15 16:22 08/31/15 16:22 08/31/15 16:22 08/31/15 16:22 08/31/15 16:22 - Medications Medications: Current Medications Acetaminophen (Tylenol 325mg Tab) 650 mg PO Q6 PRN PRN Reason: Pain, moderate (4-7) Last Admin: 08/29/15 13:21 Dose: 650 mg Donepezil HCl (Aricept) 10 mg PO HS [facility] Last Admin: 08/30/15 21:21 Dose: 10 mg Gabapentin (Neurontin) 600 mg PO TID [facility] Last Admin: 08/31/15 17:27 Dose: 600 mg Home Med (Carbidopa/Levodopa [Rytary 48.75 Mg-195 Mg]) 3 cap PO TID [facility] Last Admin: 08/31/15 17:27 Dose: 3 cap Hydrocortisone (Hydrocortisone 0.5%) 1 applic TOP BID [facility] Last Admin: 08/31/15 17:27 Dose: 1 applic Lidocaine (Lidoderm) 1 ea TD DAILY [facility] Last Admin: 08/31/15 08:28 Dose: 1 ea Midodrine (Proamatine) 5 mg PO TID [facility] Last Admin: 08/31/15 17:27 Dose: 5 mg Quetiapine Fumarate (Seroquel) 50 mg PO HS PRN PRN Reason: FOR AGITATION Tramadol HCl (Ultram) 50 mg PO Q6 PRN PRN Reason: Pain, moderate (4-7) Last Admin: 08/29/15 20:02 Dose: 50 mg - Labs Labs: 08/18/15 05:00 08/18/15 05:00 - Respiratory Exam Respiratory Exam: NORMAL BREATHING PATTERN - Cardiovascular Exam Cardiovascular Exam: REGULAR RHYTHM - GI/Abdominal Exam GI & Abdominal Exam: Normal Bowel Sounds Assessment and Plan - Assessment and Plan (Free Text) Assessment: Disposition?? 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
[2015-09-01] MEDS: Hydrocortisone 0.5% OINT TOP SCH ×2 (08:52→16:20)
[2015-09-01] MEDS: LEVODOPA PO SCH ×3 (08:52→16:20)
[2015-09-01] MEDS: CARBIDOPA PO SCH ×3 (08:52→16:20)
[2015-09-01] MEDS: Lidocaine 5% Patch TD SCH (08:53)
--- NOTE | 2015-09-01 16:19 | CP.PCM.PN ---
Subjective - Date & Time of Evaluation Date of Evaluation: 09/01/15 Time of Evaluation: 22:22 - Subjective Subjective: Doing well Objective - Vital Signs/Intake and Output Vital Signs (last 24 hours): Temp Pulse Resp BP Pulse Ox 97.9 F 69 20 174/101 H 100 09/01/15 08:20 09/01/15 08:20 09/01/15 08:20 09/01/15 08:20 09/01/15 08:20 - Medications Medications: Current Medications Acetaminophen (Tylenol 325mg Tab) 650 mg PO Q6 PRN PRN Reason: Pain, moderate (4-7) Last Admin: 08/29/15 13:21 Dose: 650 mg Donepezil HCl (Aricept) 10 mg PO HS [facility] Last Admin: 08/31/15 21:30 Dose: 10 mg Gabapentin (Neurontin) 600 mg PO TID [facility] Last Admin: 09/01/15 13:23 Dose: 600 mg Home Med (Carbidopa/Levodopa [Rytary 48.75 Mg-195 Mg]) 3 cap PO TID [facility] Last Admin: 09/01/15 13:23 Dose: 3 cap Hydrocortisone (Hydrocortisone 0.5%) 1 applic TOP BID [facility] Last Admin: 09/01/15 08:52 Dose: 1 applic Lidocaine (Lidoderm) 1 ea TD DAILY [facility] Last Admin: 09/01/15 08:53 Dose: 1 ea Midodrine (Proamatine) 5 mg PO TID [facility] Last Admin: 09/01/15 13:23 Dose: 5 mg Quetiapine Fumarate (Seroquel) 50 mg PO HS PRN PRN Reason: FOR AGITATION Last Admin: 08/31/15 22:32 Dose: 50 mg Tramadol HCl (Ultram) 50 mg PO Q6 PRN PRN Reason: Pain, moderate (4-7) Last Admin: 09/01/15 08:57 Dose: 50 mg - Labs Labs: 08/18/15 05:00 08/18/15 05:00 - Respiratory Exam Respiratory Exam: NORMAL BREATHING PATTERN - Cardiovascular Exam Cardiovascular Exam: REGULAR RHYTHM - GI/Abdominal Exam GI & Abdominal Exam: Normal Bowel Sounds Assessment and Plan - Assessment and Plan (Free Text) Assessment: Disposition?? 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
[2015-09-02] MEDS: CARBIDOPA PO SCH ×3 (08:50→17:38)
[2015-09-02] MEDS: LEVODOPA PO SCH ×3 (08:50→17:38)
[2015-09-02] MEDS: Hydrocortisone 0.5% OINT TOP SCH ×2 (08:51→17:37)
[2015-09-02] MEDS: Lidocaine 5% Patch TD SCH (08:52)
--- NOTE | 2015-09-02 12:12 | CP.PCM.PN ---
Subjective - Date & Time of Evaluation Date of Evaluation: 09/02/15 Time of Evaluation: 14:11 - Subjective Subjective: patient states he is feeling fine, no acute complaints Objective - Vital Signs/Intake and Output Vital Signs (last 24 hours): Temp Pulse Resp BP Pulse Ox 96.8 F L 85 20 161/86 H 98 09/02/15 08:11 09/02/15 08:11 09/02/15 08:11 09/02/15 08:11 09/02/15 08:11 - Medications Medications: Current Medications Acetaminophen (Tylenol 325mg Tab) 650 mg PO Q6 PRN PRN Reason: Pain, moderate (4-7) Last Admin: 09/02/15 04:07 Dose: 650 mg Donepezil HCl (Aricept) 10 mg PO HS [facility] Last Admin: 09/01/15 20:59 Dose: 10 mg Gabapentin (Neurontin) 600 mg PO TID [facility] Last Admin: 09/02/15 08:51 Dose: 600 mg Home Med (Carbidopa/Levodopa [Rytary 48.75 Mg-195 Mg]) 3 cap PO TID [facility] Last Admin: 09/02/15 08:50 Dose: 3 cap Hydrocortisone (Hydrocortisone 0.5%) 1 applic TOP BID [facility] Last Admin: 09/02/15 08:51 Dose: 1 applic Lidocaine (Lidoderm) 1 ea TD DAILY [facility] Last Admin: 09/02/15 08:52 Dose: 1 ea Midodrine (Proamatine) 5 mg PO TID [facility] Last Admin: 09/02/15 08:51 Dose: 5 mg Quetiapine Fumarate (Seroquel) 50 mg PO HS PRN PRN Reason: FOR AGITATION Last Admin: 08/31/15 22:32 Dose: 50 mg Tramadol HCl (Ultram) 50 mg PO Q6 PRN PRN Reason: Pain, moderate (4-7) Last Admin: 09/02/15 04:06 Dose: 50 mg - Labs Labs: 08/18/15 05:00 08/18/15 05:00 - Constitutional Appears: Well, Non-toxic, No Acute Distress - Head Exam Head Exam: ATRAUMATIC, NORMAL INSPECTION, NORMOCEPHALIC - Eye Exam Eye Exam: EOMI, Normal appearance, PERRL - Respiratory Exam Respiratory Exam: Clear to Ausculation Bilateral, NORMAL BREATHING PATTERN - Cardiovascular Exam Cardiovascular Exam: REGULAR RHYTHM, RRR, +S1, +S2 - GI/Abdominal Exam GI & Abdominal Exam: Soft, Normal Bowel Sounds - Extremities Exam Extremities Exam: Full ROM, Normal Capillary Refill - Neurological Exam Neurological Exam: Alert, Awake, CN II-XII Intact - Psychiatric Exam Psychiatric exam: Flat Affect Assessment and Plan (1) Fall Status: Acute (2) Shingles outbreak Status: Acute (3) Parkinson disease Status: Chronic (4) Thrombocytopenia Status: Chronic (5) Depression Status: Acute (6) Hypotension Status: Acute (7) DVT prophylaxis Status: Acute - Assessment and Plan (Free Text) Assessment: (1) Fall Hx of frequent fall due to gait disturbance due to advanced Parkinson's PT while in hospital for gait training Will need placement to [facility] -patient has signed documents needed, SW following (2) Osteoarthritis Right Shoulder pain upon extension and Right knee pain, improved consulted OT for ROM and exercise continue tylenol prn, hot pack and lidoderm patch, in addition to Ultram (3) Parkinson disease, chronic Continue Carbidopa/Levodopa (4) Thrombocytopenia, chronic unclear etiology Stable (5) Depression Continue Seroquel psych consulted, patient is competent and has capacity (6) Hypotension hx of Orthostasis, Shy Drager Syndrome Continue Midodrine (7) Shingles improved Isolation discontinued topical hydrocortisone ID was consulted Pain management as needed (8) DVT prophylaxis Lovenox
[2015-09-03] MEDS: Hydrocortisone 0.5% OINT TOP SCH ×2 (08:43→16:25)
[2015-09-03] MEDS: Lidocaine 5% Patch TD SCH (08:43)
[2015-09-03] MEDS: LEVODOPA PO SCH ×3 (08:43→16:24)
[2015-09-03] MEDS: CARBIDOPA PO SCH ×3 (08:43→16:24)
--- NOTE | 2015-09-03 14:13 | CP.PCM.PN ---
Subjective - Date & Time of Evaluation Date of Evaluation: 09/03/15 Time of Evaluation: 14:13 - Subjective Subjective: patient lying in bed, states he can not feel his legs, but then state upon exam that when pressing they hurt, no acute events overnight Objective - Vital Signs/Intake and Output Vital Signs (last 24 hours): Temp Pulse Resp BP Pulse Ox 97.3 F L 74 20 153/91 H 100 09/03/15 07:57 09/03/15 07:57 09/03/15 07:57 09/03/15 07:57 09/03/15 07:57 - Medications Medications: Current Medications Acetaminophen (Tylenol 325mg Tab) 650 mg PO Q6 PRN PRN Reason: Pain, moderate (4-7) Last Admin: 09/02/15 04:07 Dose: 650 mg Donepezil HCl (Aricept) 10 mg PO HS [facility] Last Admin: 09/02/15 21:03 Dose: 10 mg Gabapentin (Neurontin) 600 mg PO TID [facility] Last Admin: 09/03/15 12:38 Dose: 600 mg Home Med (Carbidopa/Levodopa [Rytary 48.75 Mg-195 Mg]) 3 cap PO TID [facility] Last Admin: 09/03/15 12:38 Dose: 3 cap Hydrocortisone (Hydrocortisone 0.5%) 1 applic TOP BID [facility] Last Admin: 09/03/15 08:43 Dose: 1 applic Lidocaine (Lidoderm) 1 ea TD DAILY [facility] Last Admin: 09/03/15 08:43 Dose: 1 ea Midodrine (Proamatine) 5 mg PO TID [facility] Last Admin: 09/03/15 12:39 Dose: 5 mg Quetiapine Fumarate (Seroquel) 50 mg PO HS PRN PRN Reason: FOR AGITATION Last Admin: 09/03/15 01:02 Dose: 50 mg Tramadol HCl (Ultram) 50 mg PO Q6 PRN PRN Reason: Pain, moderate (4-7) Last Admin: 09/03/15 12:42 Dose: 50 mg - Labs Labs: 08/18/15 05:00 08/18/15 05:00 - Constitutional Appears: Non-toxic, No Acute Distress - Head Exam Head Exam: ATRAUMATIC, NORMAL INSPECTION, NORMOCEPHALIC - Respiratory Exam Respiratory Exam: Clear to Ausculation Bilateral, NORMAL BREATHING PATTERN - Cardiovascular Exam Cardiovascular Exam: REGULAR RHYTHM, +S1, +S2. absent: Murmur - GI/Abdominal Exam GI & Abdominal Exam: Soft, Normal Bowel Sounds. absent: Tenderness - Extremities Exam Extremities Exam: Full ROM, Normal Capillary Refill. absent: Pedal Edema, Tenderness - Neurological Exam Neurological Exam: Alert, Awake, CN II-XII Intact - Psychiatric Exam Psychiatric exam: Flat Affect (masked facies) Assessment and Plan (1) Fall Status: Chronic (2) Shingles outbreak Status: Acute (3) Parkinson disease Status: Chronic (4) Thrombocytopenia Status: Chronic (5) Depression Status: Chronic (6) Hypotension Status: Chronic (7) DVT prophylaxis Status: Acute - Assessment and Plan (Free Text) Assessment: (1) Fall Hx of frequent fall due to gait disturbance due to advanced Parkinson's PT while in hospital for gait training Will need placement to [facility] -patient has signed documents needed, SW following. Await plan for DC (2) Osteoarthritis Right Shoulder pain upon extension and Right knee pain, improved consulted OT for ROM and exercise continue tylenol prn, hot pack and lidoderm patch, in addition to Ultram (3) Parkinson disease, chronic Continue Carbidopa/Levodopa (4) Thrombocytopenia, chronic unclear etiology Stable (5) Depression Continue Seroquel psych consulted, patient is competent and has capacity (6) Hypotension hx of Orthostasis, Shy Drager Syndrome Continue Midodrine (7) Shingles improved Isolation discontinued topical hydrocortisone ID was consulted Pain management as needed (8) DVT prophylaxis Lovenox
[2015-09-04] MEDS: CARBIDOPA PO SCH ×3 (09:00→16:40)
[2015-09-04] MEDS: Hydrocortisone 0.5% OINT TOP SCH ×2 (09:00→16:40)
[2015-09-04] MEDS: LEVODOPA PO SCH ×3 (09:00→16:40)
[2015-09-04] MEDS: Lidocaine 5% Patch TD SCH (09:00)
--- NOTE | 2015-09-04 20:48 | CP.PCM.PN ---
Subjective - Date & Time of Evaluation Date of Evaluation: 09/04/15 Time of Evaluation: 22:22 - Subjective Subjective: c/o RLE rash Objective - Vital Signs/Intake and Output Vital Signs (last 24 hours): Temp Pulse Resp BP Pulse Ox 97.5 F L 83 20 120/73 98 09/04/15 16:57 09/04/15 16:57 09/04/15 16:57 09/04/15 16:57 09/04/15 16:57 - Medications Medications: Current Medications Acetaminophen (Tylenol 325mg Tab) 650 mg PO Q6 PRN PRN Reason: Pain, moderate (4-7) Last Admin: 09/02/15 04:07 Dose: 650 mg Donepezil HCl (Aricept) 10 mg PO HS [facility] Last Admin: 09/03/15 21:49 Dose: 10 mg Gabapentin (Neurontin) 600 mg PO TID [facility] Last Admin: 09/04/15 16:41 Dose: 600 mg Home Med (Carbidopa/Levodopa [Rytary 48.75 Mg-195 Mg]) 3 cap PO TID [facility] Last Admin: 09/04/15 16:40 Dose: 3 cap Hydrocortisone (Hydrocortisone 0.5%) 1 applic TOP BID [facility] Last Admin: 09/04/15 16:40 Dose: 1 applic Lidocaine (Lidoderm) 1 ea TD DAILY [facility] Last Admin: 09/04/15 09:00 Dose: 1 ea Midodrine (Proamatine) 5 mg PO TID [facility] Last Admin: 09/04/15 16:41 Dose: 5 mg Quetiapine Fumarate (Seroquel) 50 mg PO HS PRN PRN Reason: FOR AGITATION Last Admin: 09/03/15 01:02 Dose: 50 mg - Labs Labs: 08/18/15 05:00 08/18/15 05:00 - Respiratory Exam Respiratory Exam: NORMAL BREATHING PATTERN - Cardiovascular Exam Cardiovascular Exam: REGULAR RHYTHM - GI/Abdominal Exam GI & Abdominal Exam: Normal Bowel Sounds Assessment and Plan - Assessment and Plan (Free Text) Assessment: RLE rash Dermatiis vs cellulitis?? ID consult Disposition?? 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
[2015-09-05] MEDS: LEVODOPA PO SCH ×3 (08:30→16:22)
[2015-09-05] MEDS: Lidocaine 5% Patch TD SCH (08:30)
[2015-09-05] MEDS: CARBIDOPA PO SCH ×3 (08:30→16:22)
[2015-09-05] MEDS: Hydrocortisone 0.5% OINT TOP SCH ×2 (08:31→16:22)
--- NOTE | 2015-09-05 20:18 | CP.PCM.PN ---
Subjective - Date & Time of Evaluation Date of Evaluation: 09/05/15 Time of Evaluation: 22:22 - Subjective Subjective: Rash ? still present Objective - Vital Signs/Intake and Output Vital Signs (last 24 hours): Temp Pulse Resp BP Pulse Ox 97.5 F L 66 20 121/77 97 09/05/15 16:00 09/05/15 16:00 09/05/15 08:09 09/05/15 16:00 09/05/15 16:00 - Medications Medications: Current Medications Acetaminophen (Tylenol 325mg Tab) 650 mg PO Q6 PRN PRN Reason: Pain, moderate (4-7) Last Admin: 09/05/15 10:48 Dose: 650 mg Donepezil HCl (Aricept) 10 mg PO HS [facility] Last Admin: 09/04/15 21:06 Dose: 10 mg Gabapentin (Neurontin) 600 mg PO TID [facility] Last Admin: 09/05/15 16:22 Dose: 600 mg Home Med (Carbidopa/Levodopa [Rytary 48.75 Mg-195 Mg]) 3 cap PO TID [facility] Last Admin: 09/05/15 16:22 Dose: 3 cap Hydrocortisone (Hydrocortisone 0.5%) 1 applic TOP BID [facility] Last Admin: 09/05/15 16:22 Dose: 1 applic Lidocaine (Lidoderm) 1 ea TD DAILY [facility] Last Admin: 09/05/15 08:30 Dose: 1 ea Midodrine (Proamatine) 5 mg PO TID [facility] Last Admin: 09/05/15 16:23 Dose: 5 mg Quetiapine Fumarate (Seroquel) 50 mg PO HS PRN PRN Reason: FOR AGITATION Last Admin: 09/03/15 01:02 Dose: 50 mg Tramadol HCl (Ultram) 50 mg PO Q6 PRN PRN Reason: Pain, moderate (4-7) Last Admin: 09/05/15 08:52 Dose: 50 mg - Labs Labs: 08/18/15 05:00 08/18/15 05:00 - Respiratory Exam Respiratory Exam: NORMAL BREATHING PATTERN - Cardiovascular Exam Cardiovascular Exam: REGULAR RHYTHM - GI/Abdominal Exam GI & Abdominal Exam: Normal Bowel Sounds Assessment and Plan - Assessment and Plan (Free Text) Assessment: RLE rash Dermatiis vs cellulitis?? ID consult Disposition?? 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
[2015-09-06] MEDS: Hydrocortisone 0.5% OINT TOP SCH (08:51)
[2015-09-06] MEDS: CARBIDOPA PO SCH ×3 (08:51→16:10)
[2015-09-06] MEDS: LEVODOPA PO SCH ×3 (08:51→16:10)
[2015-09-06] MEDS: Lidocaine 5% Patch TD SCH (08:52)
--- NOTE | 2015-09-06 12:36 | CP.PCM.PN ---
Subjective - Date & Time of Evaluation Date of Evaluation: 09/06/15 Time of Evaluation: 09:00 - Subjective Subjective: C/O RLE RASH- REDNESS NOTED DESPITE HYDROCORTISONE NO FEVER OR CHILLS AWAKE/ ALERT NAD WILL RX PSORIASIS IF NO IMPROVEMENT POSSIBLE ANTIBIOTIC RX Objective - Vital Signs/Intake and Output Vital Signs (last 24 hours): Temp Pulse Resp BP Pulse Ox 98.6 F 76 20 163/96 H 92 L 09/06/15 08:28 09/06/15 08:28 09/06/15 08:28 09/06/15 08:28 09/06/15 08:28 - Medications Medications: Current Medications Acetaminophen (Tylenol 325mg Tab) 650 mg PO Q6 PRN PRN Reason: Pain, moderate (4-7) Last Admin: 09/05/15 10:48 Dose: 650 mg Donepezil HCl (Aricept) 10 mg PO HS [facility] Last Admin: 09/05/15 21:21 Dose: 10 mg Gabapentin (Neurontin) 600 mg PO TID [facility] Last Admin: 09/06/15 08:52 Dose: 600 mg Home Med (Carbidopa/Levodopa [Rytary 48.75 Mg-195 Mg]) 3 cap PO TID [facility] Last Admin: 09/06/15 08:51 Dose: 3 cap Hydrocortisone (Hydrocortisone 0.5%) 1 applic TOP BID [facility] Last Admin: 09/06/15 08:51 Dose: 1 applic Lidocaine (Lidoderm) 1 ea TD DAILY [facility] Last Admin: 09/06/15 08:52 Dose: 1 ea Midodrine (Proamatine) 5 mg PO TID [facility] Last Admin: 09/06/15 08:53 Dose: 5 mg Quetiapine Fumarate (Seroquel) 50 mg PO HS PRN PRN Reason: FOR AGITATION Last Admin: 09/03/15 01:02 Dose: 50 mg Tramadol HCl (Ultram) 50 mg PO Q6 PRN PRN Reason: Pain, moderate (4-7) Last Admin: 09/05/15 08:52 Dose: 50 mg - Labs Labs: 08/18/15 05:00 08/18/15 05:00 - Constitutional Appears: Non-toxic, Chronically Ill - Head Exam Head Exam: NORMOCEPHALIC - Eye Exam Eye Exam: absent: Scleral icterus - ENT Exam ENT Exam: Mucous Membranes Dry, Normal External Ear Exam, Normal Oropharynx - Neck Exam Neck Exam: absent: Lymphadenopathy, Thyromegaly - Respiratory Exam Respiratory Exam: Decreased Breath Sounds, Clear to Ausculation Bilateral - Cardiovascular Exam Cardiovascular Exam: REGULAR RHYTHM, +S1, +S2 - GI/Abdominal Exam GI & Abdominal Exam: Distended, Soft. absent: Tenderness - Rectal Exam Rectal Exam: Deferred - Exam Exam: NORMAL INSPECTION - Extremities Exam Extremities Exam: absent: Calf Tenderness, Pedal Edema, Tenderness - Back Exam Back Exam: absent: CVA tenderness (L), CVA tenderness (R), paraspinal tenderness - Neurological Exam Neurological Exam: Alert, Awake, Oriented x3 Neuro motor strength exam: Left Upper Extremity: 3, Right Upper Extremity: 3, Left Lower Extremity: 3, Right Lower Extremity: 3 - Psychiatric Exam Psychiatric exam: Normal Mood - Skin Skin Exam: Intact Assessment and Plan (1) Shingles outbreak Status: Resolved (2) Thigh shingles Status: Resolved (3) Cellulitis and abscess of leg, except foot Status: Suspected
--- NOTE | 2015-09-06 18:50 | CP.PCM.PN ---
Subjective - Date & Time of Evaluation Date of Evaluation: 09/06/15 Time of Evaluation: 22:22 - Subjective Subjective: ID consult appreciated Objective - Vital Signs/Intake and Output Vital Signs (last 24 hours): Temp Pulse Resp BP Pulse Ox 97.5 F L 60 20 139/75 99 09/06/15 16:00 09/06/15 16:00 09/06/15 08:28 09/06/15 16:00 09/06/15 16:00 - Medications Medications: Current Medications Acetaminophen (Tylenol 325mg Tab) 650 mg PO Q6 PRN PRN Reason: Pain, moderate (4-7) Last Admin: 09/05/15 10:48 Dose: 650 mg Donepezil HCl (Aricept) 10 mg PO HS [facility] Last Admin: 09/05/15 21:21 Dose: 10 mg Fluocinonide (Lidex 0.05% Oint) 1 applic TOP BID [facility] Last Admin: 09/06/15 16:14 Dose: 1 applic Gabapentin (Neurontin) 600 mg PO TID [facility] Last Admin: 09/06/15 16:11 Dose: 600 mg Home Med (Carbidopa/Levodopa [Rytary 48.75 Mg-195 Mg]) 3 cap PO TID [facility] Last Admin: 09/06/15 16:10 Dose: 3 cap Lidocaine (Lidoderm) 1 ea TD DAILY [facility] Last Admin: 09/06/15 08:52 Dose: 1 ea Midodrine (Proamatine) 5 mg PO TID [facility] Last Admin: 09/06/15 16:11 Dose: 5 mg Quetiapine Fumarate (Seroquel) 50 mg PO HS PRN PRN Reason: FOR AGITATION Last Admin: 09/03/15 01:02 Dose: 50 mg Tramadol HCl (Ultram) 50 mg PO Q6 PRN PRN Reason: Pain, moderate (4-7) Last Admin: 09/05/15 08:52 Dose: 50 mg - Labs Labs: 08/18/15 05:00 08/18/15 05:00 - Respiratory Exam Respiratory Exam: NORMAL BREATHING PATTERN - Cardiovascular Exam Cardiovascular Exam: REGULAR RHYTHM - GI/Abdominal Exam GI & Abdominal Exam: Normal Bowel Sounds Assessment and Plan - Assessment and Plan (Free Text) Assessment: RLE rash Dermatiis vs cellulitis?? ID consult appreciated Disposition?? 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
[2015-09-07] MEDS: LEVODOPA PO SCH ×3 (09:40→17:29)
[2015-09-07] MEDS: CARBIDOPA PO SCH ×3 (09:40→17:29)
[2015-09-07] MEDS: Lidocaine 5% Patch TD SCH (09:40)
--- NOTE | 2015-09-07 16:01 | CP.PCM.PN ---
Subjective - Date & Time of Evaluation Date of Evaluation: 09/07/15 Time of Evaluation: 16:00 - Subjective Subjective: STARTED LIDEX OINT RX IN PROGRESS TOLERATING WELL NO FEVER OR LEUKOCYTOSIS Objective - Vital Signs/Intake and Output Vital Signs (last 24 hours): Temp Pulse Resp BP Pulse Ox 97.7 F 80 20 132/90 98 09/07/15 08:31 09/07/15 08:31 09/07/15 08:31 09/07/15 08:31 09/07/15 08:31 - Medications Medications: Current Medications Acetaminophen (Tylenol 325mg Tab) 650 mg PO Q6 PRN PRN Reason: Pain, moderate (4-7) Last Admin: 09/05/15 10:48 Dose: 650 mg Donepezil HCl (Aricept) 10 mg PO HS [facility] Last Admin: 09/06/15 21:13 Dose: 10 mg Fluocinonide (Lidex 0.05% Oint) 1 applic TOP BID [facility] Last Admin: 09/07/15 09:39 Dose: 1 applic Gabapentin (Neurontin) 600 mg PO TID [facility] Last Admin: 09/07/15 12:46 Dose: 600 mg Home Med (Carbidopa/Levodopa [Rytary 48.75 Mg-195 Mg]) 3 cap PO TID [facility] Last Admin: 09/07/15 12:46 Dose: 3 cap Lidocaine (Lidoderm) 1 ea TD DAILY [facility] Last Admin: 09/07/15 09:40 Dose: 1 ea Midodrine (Proamatine) 5 mg PO TID [facility] Last Admin: 09/07/15 12:46 Dose: 5 mg Quetiapine Fumarate (Seroquel) 50 mg PO HS PRN PRN Reason: FOR AGITATION Last Admin: 09/03/15 01:02 Dose: 50 mg Tramadol HCl (Ultram) 50 mg PO Q6 PRN PRN Reason: Pain, moderate (4-7) Last Admin: 09/05/15 08:52 Dose: 50 mg - Labs Labs: 08/18/15 05:00 08/18/15 05:00 - Constitutional Appears: Non-toxic, Chronically Ill - Head Exam Head Exam: NORMOCEPHALIC - Eye Exam Eye Exam: absent: Scleral icterus - ENT Exam ENT Exam: Mucous Membranes Dry - Neck Exam Neck Exam: absent: Lymphadenopathy - Respiratory Exam Respiratory Exam: Decreased Breath Sounds, Clear to Ausculation Bilateral - Cardiovascular Exam Cardiovascular Exam: REGULAR RHYTHM, +S1, +S2 - GI/Abdominal Exam GI & Abdominal Exam: Soft. absent: Tenderness - Rectal Exam Rectal Exam: Deferred - Exam Exam: NORMAL INSPECTION - Extremities Exam Extremities Exam: absent: Pedal Edema - Back Exam Back Exam: absent: CVA tenderness (L), CVA tenderness (R) - Neurological Exam Neurological Exam: Normal Gait Assessment and Plan (1) Shingles outbreak Status: Resolved (2) Thigh shingles Status: Resolved (3) Cellulitis and abscess of leg, except foot Status: Suspected
[2015-09-08] MEDS: CARBIDOPA PO SCH ×3 (08:21→16:24)
[2015-09-08] MEDS: LEVODOPA PO SCH ×3 (08:21→16:24)
[2015-09-08] MEDS: Lidocaine 5% Patch TD SCH (08:21)
--- NOTE | 2015-09-08 16:14 | CP.PCM.PN ---
Subjective - Date & Time of Evaluation Date of Evaluation: 09/08/15 Time of Evaluation: 16:13 - Subjective Subjective: Patient states denies any complaints, was in the restroom earlier Objective - Vital Signs/Intake and Output Vital Signs (last 24 hours): Temp Pulse Resp BP Pulse Ox 97.9 F 68 20 142/90 99 09/08/15 08:16 09/08/15 08:16 09/08/15 08:16 09/08/15 08:16 09/08/15 08:16 - Medications Medications: Current Medications Acetaminophen (Tylenol 325mg Tab) 650 mg PO Q6 PRN PRN Reason: Pain, moderate (4-7) Last Admin: 09/05/15 10:48 Dose: 650 mg Carbidopa/Levodopa (Sinemet 10/100) 1 tab PO TID [facility] Donepezil HCl (Aricept) 10 mg PO HS [facility] Last Admin: 09/07/15 21:14 Dose: 10 mg Fluocinonide (Lidex 0.05% Oint) 1 applic TOP BID [facility] Last Admin: 09/08/15 08:23 Dose: 1 applic Gabapentin (Neurontin) 600 mg PO TID [facility] Last Admin: 09/08/15 13:09 Dose: 600 mg Home Med (Carbidopa/Levodopa [Rytary 48.75 Mg-195 Mg]) 3 cap PO TID [facility] Last Admin: 09/08/15 13:09 Dose: 3 cap Lidocaine (Lidoderm) 1 ea TD DAILY [facility] Last Admin: 09/08/15 08:21 Dose: Not Given Midodrine (Proamatine) 5 mg PO TID [facility] Last Admin: 09/08/15 13:09 Dose: 5 mg Quetiapine Fumarate (Seroquel) 50 mg PO HS PRN PRN Reason: FOR AGITATION Last Admin: 09/03/15 01:02 Dose: 50 mg Tramadol HCl (Ultram) 50 mg PO Q6 PRN PRN Reason: Pain, moderate (4-7) Last Admin: 09/08/15 13:47 Dose: 50 mg - Labs Labs: 08/18/15 05:00 08/18/15 05:00 - Constitutional Appears: Well, Non-toxic, No Acute Distress - Head Exam Head Exam: ATRAUMATIC, NORMAL INSPECTION, NORMOCEPHALIC - Eye Exam Eye Exam: EOMI, Normal appearance, PERRL - ENT Exam ENT Exam: Mucous Membranes Moist, Normal Exam - Respiratory Exam Respiratory Exam: Clear to Ausculation Bilateral, NORMAL BREATHING PATTERN - Cardiovascular Exam Cardiovascular Exam: REGULAR RHYTHM, RRR, +S1, +S2 - GI/Abdominal Exam GI & Abdominal Exam: Soft, Normal Bowel Sounds - Psychiatric Exam Psychiatric exam: Flat Affect, Normal Mood Assessment and Plan (1) Fall Status: Chronic (2) Shingles outbreak Status: Resolved (3) Parkinson disease Status: Chronic (4) Thrombocytopenia Status: Chronic (5) Depression Status: Chronic (6) Hypotension Status: Chronic (7) DVT prophylaxis Status: Acute - Assessment and Plan (Free Text) Assessment: (1) Fall Hx of frequent fall due to gait disturbance due to advanced Parkinson's PT while in hospital for gait training Will need placement to [facility] -patient has signed documents needed, SW following. Await plan for DC when Acceptance of financial documents (2) Osteoarthritis Right Shoulder pain upon extension and Right knee pain, improved consulted OT for ROM and exercise continue tylenol prn, hot pack and lidoderm patch, in addition to Ultram (3) Parkinson disease, chronic Continue Carbidopa/Levodopa (4) Thrombocytopenia, chronic unclear etiology Stable (5) Depression Continue Seroquel psych consulted, patient is competent and has capacity (6) Hypotension hx of Orthostasis, Shy Drager Syndrome Continue Midodrine (7) Shingles improved Isolation discontinued topical hydrocortisone ID was consulted Pain management as needed (8) DVT prophylaxis Lovenox
[2015-09-09] MEDS: LEVODOPA PO SCH ×3 (09:50→17:49)
[2015-09-09] MEDS: CARBIDOPA PO SCH ×3 (09:50→17:49)
[2015-09-09] MEDS: Lidocaine 5% Patch TD SCH (09:51)
--- NOTE | 2015-09-09 11:30 | CP.PCM.PN ---
Subjective - Date & Time of Evaluation Date of Evaluation: 09/09/15 Time of Evaluation: 11:30 - Subjective Subjective: no fever complains of sl R shoulder pain no CP no SOB Objective - Vital Signs/Intake and Output Vital Signs (last 24 hours): Temp Pulse Resp BP Pulse Ox 97 F L 71 20 154/82 H 100 09/09/15 08:15 09/09/15 08:15 09/09/15 08:15 09/09/15 08:15 09/09/15 08:15 - Medications Medications: Current Medications Acetaminophen (Tylenol 325mg Tab) 650 mg PO Q6 PRN PRN Reason: Pain, moderate (4-7) Last Admin: 09/05/15 10:48 Dose: 650 mg Carbidopa/Levodopa (Sinemet 10/100) 1 tab PO TID@0600,1500,2100 [facility] Last Admin: 09/09/15 05:39 Dose: 1 tab Donepezil HCl (Aricept) 10 mg PO HS [facility] Last Admin: 09/08/15 22:14 Dose: 10 mg Fluocinonide (Lidex 0.05% Oint) 1 applic TOP BID [facility] Last Admin: 09/09/15 09:51 Dose: 1 applic Gabapentin (Neurontin) 600 mg PO TID [facility] Last Admin: 09/09/15 09:50 Dose: 600 mg Home Med (Carbidopa/Levodopa [Rytary 48.75 Mg-195 Mg]) 3 cap PO TID [facility] Last Admin: 09/09/15 09:50 Dose: 3 cap Lidocaine (Lidoderm) 1 ea TD DAILY [facility] Last Admin: 09/09/15 09:51 Dose: 1 ea Midodrine (Proamatine) 5 mg PO TID [facility] Last Admin: 09/09/15 09:50 Dose: 5 mg Quetiapine Fumarate (Seroquel) 50 mg PO HS PRN PRN Reason: FOR AGITATION Last Admin: 09/03/15 01:02 Dose: 50 mg Tramadol HCl (Ultram) 50 mg PO Q6 PRN PRN Reason: Pain, moderate (4-7) Last Admin: 09/08/15 13:47 Dose: 50 mg - Labs Labs: 08/18/15 05:00 08/18/15 05:00 - Constitutional Appears: No Acute Distress, Chronically Ill - Head Exam Head Exam: NORMAL INSPECTION, NORMOCEPHALIC - Eye Exam Eye Exam: EOMI, Normal appearance Pupil Exam: NORMAL ACCOMODATION - ENT Exam ENT Exam: Mucous Membranes Moist, Normal External Ear Exam - Neck Exam Neck Exam: Full ROM. absent: Meningismus - Respiratory Exam Respiratory Exam: NORMAL BREATHING PATTERN. absent: Respiratory Distress - Cardiovascular Exam Cardiovascular Exam: REGULAR RHYTHM, +S1, +S2 - GI/Abdominal Exam GI & Abdominal Exam: Soft, Normal Bowel Sounds. absent: Tenderness - Extremities Exam Extremities Exam: Normal Capillary Refill, Pedal Edema. absent: Calf Tenderness - Back Exam Back Exam: absent: CVA tenderness (L), CVA tenderness (R) - Neurological Exam Neurological Exam: Alert, Awake Additional comments: oriented to person and place - Psychiatric Exam Psychiatric exam: Flat Affect - Skin Skin Exam: Dry, Normal Color, Warm Assessment and Plan (1) Fall Status: Acute (2) Parkinson disease Status: Chronic (3) DVT prophylaxis Status: Acute (4) Thrombocytopenia Status: Chronic (5) Atrial fibrillation Status: Chronic (6) Orthostasis Status: Chronic - Assessment and Plan (Free Text) Assessment: (1) Fall Hx of frequent fall due to gait disturbance due to advanced Parkinson's PT while in hospital for gait training Will need placement to [facility] -patient has signed documents needed, SW following. Await plan for DC when Acceptance of financial documents (2) Osteoarthritis Right Shoulder pain upon extension and Right knee pain, improved consulted OT for ROM and exercise continue tylenol prn, hot pack and lidoderm patch, in addition to Ultram (3) Parkinson disease, chronic Continue Carbidopa/Levodopa (4) Thrombocytopenia, chronic unclear etiology Stable (5) Depression Continue Seroquel psych consulted, patient is competent and has capacity (6) Hypotension hx of Orthostasis, Shy Drager Syndrome Continue Midodrine (7) Shingles improved Isolation discontinued topical hydrocortisone ID was consulted Pain management as needed (8) DVT prophylaxis Lovenox
[2015-09-10] MEDS: LEVODOPA PO SCH ×3 (08:36→16:27)
[2015-09-10] MEDS: CARBIDOPA PO SCH ×3 (08:36→16:27)
[2015-09-10] MEDS: Lidocaine 5% Patch TD SCH ×3 (08:37→09:47)
--- NOTE | 2015-09-10 12:08 | CP.PCM.PN ---
Subjective - Date & Time of Evaluation Date of Evaluation: 09/10/15 Time of Evaluation: 12:00 - Subjective Subjective: no fever complains that all his meds are making him worse denies CP no SOB no abd pain Objective - Vital Signs/Intake and Output Vital Signs (last 24 hours): Temp Pulse Resp BP Pulse Ox 98.2 F 68 20 149/77 99 09/10/15 08:14 09/10/15 08:14 09/10/15 08:14 09/10/15 08:14 09/10/15 08:14 - Medications Medications: Current Medications Acetaminophen (Tylenol 325mg Tab) 650 mg PO Q6 PRN PRN Reason: Pain, moderate (4-7) Last Admin: 09/05/15 10:48 Dose: 650 mg Carbidopa/Levodopa (Sinemet 10/100) 0.5 tab PO TID [facility] Last Admin: 09/10/15 08:41 Dose: 0.5 tab Donepezil HCl (Aricept) 10 mg PO HS [facility] Last Admin: 09/09/15 21:55 Dose: 10 mg Fluocinonide (Lidex 0.05% Oint) 1 applic TOP BID [facility] Last Admin: 09/10/15 08:41 Dose: 1 applic Gabapentin (Neurontin) 600 mg PO TID [facility] Last Admin: 09/10/15 08:36 Dose: 600 mg Home Med (Carbidopa/Levodopa [Rytary 48.75 Mg-195 Mg]) 3 cap PO TID [facility] Last Admin: 09/10/15 08:36 Dose: 3 cap Lidocaine (Lidoderm) 1 ea TD DAILY [facility] Last Admin: 09/10/15 09:47 Dose: 1 ea Midodrine (Proamatine) 5 mg PO TID [facility] Last Admin: 09/10/15 08:36 Dose: 5 mg Quetiapine Fumarate (Seroquel) 50 mg PO HS PRN PRN Reason: FOR AGITATION Last Admin: 09/03/15 01:02 Dose: 50 mg Tramadol HCl (Ultram) 50 mg PO Q6 PRN PRN Reason: Pain, moderate (4-7) Last Admin: 09/08/15 13:47 Dose: 50 mg - Labs Labs: 08/18/15 05:00 08/18/15 05:00 - Constitutional Appears: No Acute Distress, Chronically Ill - Head Exam Head Exam: NORMAL INSPECTION, NORMOCEPHALIC - Eye Exam Eye Exam: EOMI, Normal appearance Pupil Exam: NORMAL ACCOMODATION - ENT Exam ENT Exam: Mucous Membranes Moist, Normal External Ear Exam - Neck Exam Neck Exam: Full ROM. absent: Meningismus - Respiratory Exam Respiratory Exam: NORMAL BREATHING PATTERN. absent: Respiratory Distress - Cardiovascular Exam Cardiovascular Exam: REGULAR RHYTHM, +S1, +S2 - GI/Abdominal Exam GI & Abdominal Exam: Soft, Normal Bowel Sounds. absent: Tenderness - Extremities Exam Extremities Exam: Normal Capillary Refill, Pedal Edema. absent: Calf Tenderness - Neurological Exam Neurological Exam: Alert, Awake, CN II-XII Intact, Oriented x3 - Psychiatric Exam Psychiatric exam: Flat Affect - Skin Skin Exam: Dry, Normal Color, Warm Assessment and Plan (1) Fall Status: Acute (2) Parkinson disease Status: Chronic (3) DVT prophylaxis Status: Acute (4) Thrombocytopenia Status: Chronic (5) Atrial fibrillation Status: Chronic (6) Orthostasis Status: Chronic - Assessment and Plan (Free Text) Assessment: (1) Fall Hx of frequent fall due to gait disturbance due to advanced Parkinson's PT while in hospital for gait training Will need placement to [facility] -patient has signed documents needed, SW following. Await plan for DC when Acceptance of financial documents (2) Osteoarthritis Right Shoulder pain upon extension and Right knee pain, improved consulted OT for ROM and exercise continue tylenol prn, hot pack and lidoderm patch, in addition to Ultram (3) Parkinson disease, chronic Continue Carbidopa/Levodopa (4) Thrombocytopenia, chronic unclear etiology Stable (5) Depression Continue Seroquel psych consulted, patient is competent and has capacity (6) Hypotension hx of Orthostasis, Shy Drager Syndrome Continue Midodrine (7) Shingles improved Isolation discontinued topical hydrocortisone ID was consulted Pain management as needed (8) DVT prophylaxis Lovenox
--- NOTE | 2015-09-10 12:23 | CP.PCM.PN ---
Subjective - Date & Time of Evaluation Date of Evaluation: 09/10/15 Time of Evaluation: 08:00 - Subjective Subjective: rash improving no fever Objective - Vital Signs/Intake and Output Vital Signs (last 24 hours): Temp Pulse Resp BP Pulse Ox 98.2 F 68 20 149/77 99 09/10/15 08:14 09/10/15 08:14 09/10/15 08:14 09/10/15 08:14 09/10/15 08:14 - Medications Medications: Current Medications Acetaminophen (Tylenol 325mg Tab) 650 mg PO Q6 PRN PRN Reason: Pain, moderate (4-7) Last Admin: 09/05/15 10:48 Dose: 650 mg Carbidopa/Levodopa (Sinemet 10/100) 0.5 tab PO TID [facility] Last Admin: 09/10/15 08:41 Dose: 0.5 tab Donepezil HCl (Aricept) 10 mg PO HS [facility] Last Admin: 09/09/15 21:55 Dose: 10 mg Fluocinonide (Lidex 0.05% Oint) 1 applic TOP BID [facility] Last Admin: 09/10/15 08:41 Dose: 1 applic Gabapentin (Neurontin) 600 mg PO TID [facility] Last Admin: 09/10/15 08:36 Dose: 600 mg Home Med (Carbidopa/Levodopa [Rytary 48.75 Mg-195 Mg]) 3 cap PO TID [facility] Last Admin: 09/10/15 08:36 Dose: 3 cap Lidocaine (Lidoderm) 1 ea TD DAILY [facility] Last Admin: 09/10/15 09:47 Dose: 1 ea Midodrine (Proamatine) 5 mg PO TID [facility] Last Admin: 09/10/15 08:36 Dose: 5 mg Quetiapine Fumarate (Seroquel) 50 mg PO HS PRN PRN Reason: FOR AGITATION Last Admin: 09/03/15 01:02 Dose: 50 mg Tramadol HCl (Ultram) 50 mg PO Q6 PRN PRN Reason: Pain, moderate (4-7) Last Admin: 09/08/15 13:47 Dose: 50 mg - Labs Labs: 08/18/15 05:00 08/18/15 05:00 - Constitutional Appears: Non-toxic, Chronically Ill - Head Exam Head Exam: NORMOCEPHALIC - Eye Exam Eye Exam: absent: Scleral icterus - ENT Exam ENT Exam: Mucous Membranes Dry - Neck Exam Neck Exam: absent: Lymphadenopathy, Thyromegaly - Respiratory Exam Respiratory Exam: Decreased Breath Sounds, Clear to Ausculation Bilateral - Cardiovascular Exam Cardiovascular Exam: REGULAR RHYTHM, +S1, +S2 - GI/Abdominal Exam GI & Abdominal Exam: Distended, Soft - Rectal Exam Rectal Exam: Deferred - Exam Exam: NORMAL INSPECTION - Extremities Exam Extremities Exam: absent: Pedal Edema - Back Exam Back Exam: absent: CVA tenderness (L), CVA tenderness (R) - Neurological Exam Neurological Exam: Alert, Altered, Awake Neuro motor strength exam: Left Upper Extremity: 3, Right Upper Extremity: 3, Left Lower Extremity: 3, Right Lower Extremity: 3 Assessment and Plan (1) Shingles outbreak Status: Resolved (2) Thigh shingles Status: Resolved (3) Cellulitis and abscess of leg, except foot Status: Suspected
[2015-09-11] MEDS: LEVODOPA PO SCH ×3 (09:07→17:34)
[2015-09-11] MEDS: CARBIDOPA PO SCH ×3 (09:07→17:34)
[2015-09-11] MEDS: Lidocaine 5% Patch TD SCH (09:08)
--- NOTE | 2015-09-11 12:47 | CP.PCM.PN ---
Subjective - Date & Time of Evaluation Date of Evaluation: 09/11/15 Time of Evaluation: 12:40 - Subjective Subjective: Patient seen . Sitting in the chair in NAD. States doers not feel well and that medication is not working because he feels cold. Patient at present sitting with his underwear on and Tshirt. Hemodynamically stable, afebrile. No acute issues overnight Waiting for placement Objective - Vital Signs/Intake and Output Vital Signs (last 24 hours): Temp Pulse Resp BP Pulse Ox 98.1 F 65 20 132/85 99 09/11/15 09:10 09/11/15 09:10 09/11/15 09:10 09/11/15 09:10 09/11/15 09:10 - Medications Medications: Current Medications Acetaminophen (Tylenol 325mg Tab) 650 mg PO Q6 PRN PRN Reason: Pain, moderate (4-7) Last Admin: 09/05/15 10:48 Dose: 650 mg Carbidopa/Levodopa (Sinemet 10/100) 0.5 tab PO TID [facility] Last Admin: 09/11/15 12:06 Dose: 0.5 tab Donepezil HCl (Aricept) 10 mg PO HS [facility] Last Admin: 09/10/15 21:31 Dose: 10 mg Fluocinonide (Lidex 0.05% Oint) 1 applic TOP BID [facility] Last Admin: 09/11/15 09:08 Dose: 1 applic Gabapentin (Neurontin) 600 mg PO TID [facility] Last Admin: 09/11/15 12:06 Dose: 600 mg Home Med (Carbidopa/Levodopa [Rytary 48.75 Mg-195 Mg]) 3 cap PO TID [facility] Last Admin: 09/11/15 12:06 Dose: 3 cap Lidocaine (Lidoderm) 1 ea TD DAILY [facility] Last Admin: 09/11/15 09:08 Dose: Not Given Midodrine (Proamatine) 5 mg PO TID [facility] Last Admin: 09/11/15 12:06 Dose: 5 mg Quetiapine Fumarate (Seroquel) 50 mg PO HS PRN PRN Reason: FOR AGITATION Last Admin: 09/03/15 01:02 Dose: 50 mg Tramadol HCl (Ultram) 50 mg PO Q6 PRN PRN Reason: Pain, moderate (4-7) Last Admin: 09/11/15 00:56 Dose: 50 mg - Labs Labs: 08/18/15 05:00 08/18/15 05:00 - Constitutional Appears: Non-toxic, No Acute Distress, Chronically Ill - Head Exam Head Exam: ATRAUMATIC, NORMOCEPHALIC - Eye Exam Eye Exam: Normal appearance - ENT Exam ENT Exam: Mucous Membranes Moist, Normal Exam - Neck Exam Neck Exam: Full ROM, Normal Inspection - Respiratory Exam Respiratory Exam: Clear to Ausculation Bilateral, NORMAL BREATHING PATTERN. absent: Rales, Rhonchi, Wheezes - Cardiovascular Exam Cardiovascular Exam: REGULAR RHYTHM, +S1, +S2. absent: JVD - GI/Abdominal Exam GI & Abdominal Exam: Normal Bowel Sounds. absent: Guarding, Soft, Rebound - Rectal Exam Rectal Exam: Deferred - Extremities Exam Extremities Exam: Normal Inspection. absent: Pedal Edema - Back Exam Back Exam: NORMAL INSPECTION - Neurological Exam Neurological Exam: Alert, Awake. absent: Oriented x3 Additional comments: resting tremors - Psychiatric Exam Psychiatric exam: Depressed, Flat Affect - Skin Skin Exam: Dry, Warm Assessment and Plan (1) Fall Status: Acute (2) Parkinson disease Status: Chronic (3) Thrombocytopenia Status: Chronic (4) Depression Status: Chronic (5) Hypotension Status: Chronic (6) DVT prophylaxis Status: Acute - Assessment and Plan (Free Text) Assessment: (1) Fall Hx of frequent fall due to gait disturbance due to advanced Parkinson's PT while in hospital for gait training Will need placement to [facility] -patient has signed documents needed, SW following. Await plan for DC when Acceptance of financial documents (2) Osteoarthritis Right Shoulder pain upon extension and Right knee pain, improved consulted OT for ROM and exercise continue tylenol prn, hot pack and lidoderm patch, in addition to Ultram (3) Parkinson disease, chronic Continue Carbidopa/Levodopa (4) Thrombocytopenia, chronic unclear etiology Stable No Lovenox due to thrombocytopenia (5) Depression Continue Seroquel psych consulted, patient is competent and has capacity (6) Hypotension hx of Orthostasis, Shy Drager Syndrome Continue Midodrine (7) Shingles improved Isolation discontinued topical hydrocortisone ID was consulted Pain management as needed (8) DVT prophylaxis Lovenox
[2015-09-12] MEDS: LEVODOPA PO SCH ×3 (09:00→17:18)
[2015-09-12] MEDS: CARBIDOPA PO SCH ×3 (09:00→17:18)
[2015-09-12] MEDS: Lidocaine 5% Patch TD SCH (09:01)
--- NOTE | 2015-09-12 21:07 | CP.PCM.PN ---
Subjective - Date & Time of Evaluation Date of Evaluation: 09/12/15 Time of Evaluation: 22:22 - Subjective Subjective: c/o r leg pain Objective - Vital Signs/Intake and Output Vital Signs (last 24 hours): Temp Pulse Resp BP Pulse Ox 97.3 F L 76 18 149/67 96 09/12/15 16:00 09/12/15 16:00 09/12/15 07:41 09/12/15 16:00 09/12/15 16:00 - Medications Medications: Current Medications Acetaminophen (Tylenol 325mg Tab) 650 mg PO Q6 PRN PRN Reason: Pain, moderate (4-7) Last Admin: 09/12/15 01:56 Dose: 650 mg Carbidopa/Levodopa (Sinemet 10/100) 0.5 tab PO TID [facility] Last Admin: 09/12/15 17:20 Dose: 0.5 tab Donepezil HCl (Aricept) 10 mg PO HS [facility] Fluocinonide (Lidex 0.05% Oint) 1 applic TOP BID [facility] Last Admin: 09/12/15 17:19 Dose: 1 applic Gabapentin (Neurontin) 600 mg PO TID [facility] Last Admin: 09/12/15 17:19 Dose: 600 mg Home Med (Carbidopa/Levodopa [Rytary 48.75 Mg-195 Mg]) 3 cap PO TID [facility] Last Admin: 09/12/15 17:18 Dose: 3 cap Lidocaine (Lidoderm) 1 ea TD DAILY [facility] Last Admin: 09/12/15 09:01 Dose: 1 ea Midodrine (Proamatine) 5 mg PO TID [facility] Last Admin: 09/12/15 17:19 Dose: 5 mg Quetiapine Fumarate (Seroquel) 50 mg PO HS PRN PRN Reason: FOR AGITATION Last Admin: 09/11/15 22:33 Dose: 50 mg Tramadol HCl (Ultram) 50 mg PO Q6 PRN PRN Reason: Pain, moderate (4-7) Last Admin: 09/11/15 22:32 Dose: 50 mg - Labs Labs: 08/18/15 05:00 08/18/15 05:00 - Respiratory Exam Respiratory Exam: NORMAL BREATHING PATTERN - Cardiovascular Exam Cardiovascular Exam: REGULAR RHYTHM - GI/Abdominal Exam GI & Abdominal Exam: Normal Bowel Sounds Assessment and Plan - Assessment and Plan (Free Text) Assessment: R leg pain venous doppler RLE rash Dermatiis vs cellulitis?? ID consult appreciated Disposition?? 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
[2015-09-13] MEDS: LEVODOPA PO SCH ×3 (08:58→16:02)
[2015-09-13] MEDS: CARBIDOPA PO SCH ×3 (08:58→16:02)
[2015-09-13] MEDS: Lidocaine 5% Patch TD SCH (09:00)
--- NOTE | 2015-09-13 11:05 | US ---
PROCEDURE: Bilateral lower extremity venous duplex Doppler. HISTORY: pain COMPARISON: None available. TECHNIQUE: Bilateral common femoral, superficial femoral, popliteal and posterior tibial veins were evaluated. Flow was assessed with color Doppler, compressibility, assessment of phasic flow and augmentation response. FINDINGS: COMMON FEMORAL VEIN: Right CFV: Unremarkable. Left CFV: Unremarkable. SUPERFICIAL FEMORAL VEIN: Right SFV: Unremarkable. Left SFV: Unremarkable. POPLITEAL VEIN: Right Popliteal: Unremarkable. Left Popliteal: Unremarkable. POSTERIOR TIBIAL VEIN: Right PTV: Unremarkable. Left PTV: Unremarkable. OTHER FINDINGS: None. IMPRESSION: No evidence of deep venous thrombosis.
--- NOTE | 2015-09-13 19:30 | CP.PCM.PN ---
Subjective - Date & Time of Evaluation Date of Evaluation: 09/13/15 Time of Evaluation: 22:22 - Subjective Subjective: Doppler negative Objective - Vital Signs/Intake and Output Vital Signs (last 24 hours): Temp Pulse Resp BP Pulse Ox 97.7 F 65 19 109/54 L 98 09/13/15 15:30 09/13/15 15:30 09/13/15 00:16 09/13/15 15:30 09/13/15 15:30 - Medications Medications: Current Medications Acetaminophen (Tylenol 325mg Tab) 650 mg PO Q6 PRN PRN Reason: Pain, moderate (4-7) Last Admin: 09/12/15 23:57 Dose: 650 mg Carbidopa/Levodopa (Sinemet 10/100) 0.5 tab PO TID [facility] Last Admin: 09/13/15 16:01 Dose: 0.5 tab Donepezil HCl (Aricept) 10 mg PO HS [facility] Last Admin: 09/12/15 23:56 Dose: 10 mg Fluocinonide (Lidex 0.05% Oint) 1 applic TOP BID [facility] Last Admin: 09/13/15 16:01 Dose: 1 applic Gabapentin (Neurontin) 600 mg PO TID [facility] Last Admin: 09/13/15 16:01 Dose: 600 mg Home Med (Carbidopa/Levodopa [Rytary 48.75 Mg-195 Mg]) 3 cap PO TID [facility] Last Admin: 09/13/15 16:02 Dose: 3 cap Lidocaine (Lidoderm) 1 ea TD DAILY [facility] Last Admin: 09/13/15 09:00 Dose: 1 ea Midodrine (Proamatine) 5 mg PO TID [facility] Last Admin: 09/13/15 16:01 Dose: 5 mg Quetiapine Fumarate (Seroquel) 50 mg PO HS PRN PRN Reason: FOR AGITATION Last Admin: 09/12/15 23:56 Dose: 50 mg Tramadol HCl (Ultram) 50 mg PO Q6 PRN PRN Reason: Pain, moderate (4-7) Last Admin: 09/13/15 11:38 Dose: 50 mg - Labs Labs: 08/18/15 05:00 08/18/15 05:00 - Respiratory Exam Respiratory Exam: NORMAL BREATHING PATTERN - Cardiovascular Exam Cardiovascular Exam: REGULAR RHYTHM - GI/Abdominal Exam GI & Abdominal Exam: Normal Bowel Sounds Assessment and Plan - Assessment and Plan (Free Text) Assessment: R leg pain venous doppler negative PT RLE rash Dermatiis vs cellulitis?? ID consult appreciated Disposition?? 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
[2015-09-14] MEDS: CARBIDOPA PO SCH ×3 (08:21→16:08)
[2015-09-14] MEDS: LEVODOPA PO SCH ×3 (08:21→16:08)
[2015-09-14] MEDS: Lidocaine 5% Patch TD SCH (08:22)
--- NOTE | 2015-09-14 20:26 | CP.PCM.PN ---
Subjective - Date & Time of Evaluation Date of Evaluation: 09/14/15 Time of Evaluation: 22:22 - Subjective Subjective: Resting Objective - Vital Signs/Intake and Output Vital Signs (last 24 hours): Temp Pulse Resp BP Pulse Ox 97 F L 61 20 145/73 98 09/14/15 16:24 09/14/15 16:24 09/14/15 16:24 09/14/15 16:24 09/14/15 16:24 - Medications Medications: Current Medications Acetaminophen (Tylenol 325mg Tab) 650 mg PO Q6 PRN PRN Reason: Pain, moderate (4-7) Last Admin: 09/12/15 23:57 Dose: 650 mg Carbidopa/Levodopa (Sinemet 10/100) 0.5 tab PO TID [facility] Last Admin: 09/14/15 16:08 Dose: 0.5 tab Donepezil HCl (Aricept) 10 mg PO HS [facility] Last Admin: 09/13/15 22:19 Dose: 10 mg Fluocinonide (Lidex 0.05% Oint) 1 applic TOP BID [facility] Last Admin: 09/14/15 16:09 Dose: 1 applic Gabapentin (Neurontin) 600 mg PO TID [facility] Last Admin: 09/14/15 16:07 Dose: 600 mg Home Med (Carbidopa/Levodopa [Rytary 48.75 Mg-195 Mg]) 3 cap PO TID [facility] Last Admin: 09/14/15 16:08 Dose: 3 cap Lidocaine (Lidoderm) 1 ea TD DAILY [facility] Last Admin: 09/14/15 08:22 Dose: 1 ea Midodrine (Proamatine) 5 mg PO TID [facility] Last Admin: 09/14/15 16:07 Dose: 5 mg Quetiapine Fumarate (Seroquel) 50 mg PO HS PRN PRN Reason: FOR AGITATION Last Admin: 09/12/15 23:56 Dose: 50 mg Tramadol HCl (Ultram) 50 mg PO Q6 PRN PRN Reason: Pain, moderate (4-7) Last Admin: 09/14/15 01:27 Dose: 50 mg - Labs Labs: 08/18/15 05:00 08/18/15 05:00 - Respiratory Exam Respiratory Exam: NORMAL BREATHING PATTERN - Cardiovascular Exam Cardiovascular Exam: REGULAR RHYTHM - GI/Abdominal Exam GI & Abdominal Exam: Normal Bowel Sounds Assessment and Plan - Assessment and Plan (Free Text) Assessment: R leg pain venous doppler negative PT RLE rash Dermatiis vs cellulitis?? ID consult appreciated Disposition?? 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
[2015-09-15] MEDS: CARBIDOPA PO SCH ×3 (09:33→16:02)
[2015-09-15] MEDS: LEVODOPA PO SCH ×3 (09:33→16:02)
[2015-09-15] MEDS: Lidocaine 5% Patch TD SCH (09:33)
--- NOTE | 2015-09-15 12:15 | CP.PCM.PN ---
Subjective - Date & Time of Evaluation Date of Evaluation: 09/15/15 Time of Evaluation: 12:20 - Subjective Subjective: RASH IMPROVED NO FEVER LUNGS CLEAR CONT RX Objective - Vital Signs/Intake and Output Vital Signs (last 24 hours): Temp Pulse Resp BP Pulse Ox 97.7 F 82 19 162/98 H 96 09/15/15 08:38 09/15/15 08:38 09/15/15 08:38 09/15/15 08:38 09/15/15 08:38 - Medications Medications: Current Medications Acetaminophen (Tylenol 325mg Tab) 650 mg PO Q6 PRN PRN Reason: Pain, moderate (4-7) Last Admin: 09/15/15 10:10 Dose: 650 mg Carbidopa/Levodopa (Sinemet 10/100) 0.5 tab PO TID@0600,1500,2100 [facility] Donepezil HCl (Aricept) 10 mg PO HS [facility] Last Admin: 09/14/15 22:18 Dose: 10 mg Fluocinonide (Lidex 0.05% Oint) 1 applic TOP BID [facility] Last Admin: 09/15/15 09:34 Dose: 1 applic Gabapentin (Neurontin) 600 mg PO TID [facility] Last Admin: 09/15/15 09:34 Dose: 600 mg Home Med (Carbidopa/Levodopa [Rytary 48.75 Mg-195 Mg]) 3 cap PO TID [facility] Last Admin: 09/15/15 09:33 Dose: 3 cap Lidocaine (Lidoderm) 1 ea TD DAILY [facility] Last Admin: 09/15/15 09:33 Dose: 1 ea Midodrine (Proamatine) 5 mg PO TID [facility] Last Admin: 09/15/15 09:34 Dose: 5 mg Quetiapine Fumarate (Seroquel) 50 mg PO HS PRN PRN Reason: FOR AGITATION Last Admin: 09/12/15 23:56 Dose: 50 mg Tramadol HCl (Ultram) 50 mg PO Q6 PRN PRN Reason: Pain, moderate (4-7) Last Admin: 09/14/15 01:27 Dose: 50 mg - Labs Labs: 08/18/15 05:00 08/18/15 05:00 Assessment and Plan (1) Cellulitis and abscess of leg, except foot Status: Suspected
--- NOTE | 2015-09-15 17:09 | CP.PCM.PN ---
Subjective - Date & Time of Evaluation Date of Evaluation: 09/15/15 Time of Evaluation: 22:22 - Subjective Subjective: No change in status ID note appreciated Objective - Vital Signs/Intake and Output Vital Signs (last 24 hours): Temp Pulse Resp BP Pulse Ox 97.5 F L 64 20 116/58 L 94 L 09/15/15 16:23 09/15/15 16:23 09/15/15 16:23 09/15/15 16:23 09/15/15 16:23 - Medications Medications: Current Medications Acetaminophen (Tylenol 325mg Tab) 650 mg PO Q6 PRN PRN Reason: Pain, moderate (4-7) Last Admin: 09/15/15 10:10 Dose: 650 mg Carbidopa/Levodopa (Sinemet 10/100) 0.5 tab PO TID@0600,1500,2100 [facility] Last Admin: 09/15/15 16:02 Dose: 0.5 tab Donepezil HCl (Aricept) 10 mg PO HS [facility] Last Admin: 09/14/15 22:18 Dose: 10 mg Fluocinonide (Lidex 0.05% Oint) 1 applic TOP BID [facility] Last Admin: 09/15/15 16:02 Dose: 1 applic Gabapentin (Neurontin) 600 mg PO TID [facility] Last Admin: 09/15/15 16:03 Dose: 600 mg Home Med (Carbidopa/Levodopa [Rytary 48.75 Mg-195 Mg]) 3 cap PO TID [facility] Last Admin: 09/15/15 16:02 Dose: 3 cap Lidocaine (Lidoderm) 1 ea TD DAILY [facility] Last Admin: 09/15/15 09:33 Dose: 1 ea Midodrine (Proamatine) 5 mg PO TID [facility] Last Admin: 09/15/15 16:02 Dose: 5 mg Quetiapine Fumarate (Seroquel) 50 mg PO HS PRN PRN Reason: FOR AGITATION Last Admin: 09/12/15 23:56 Dose: 50 mg Tramadol HCl (Ultram) 50 mg PO Q6 PRN PRN Reason: Pain, moderate (4-7) Last Admin: 09/14/15 01:27 Dose: 50 mg - Labs Labs: 08/18/15 05:00 08/18/15 05:00 - Respiratory Exam Respiratory Exam: NORMAL BREATHING PATTERN - Cardiovascular Exam Cardiovascular Exam: REGULAR RHYTHM - GI/Abdominal Exam GI & Abdominal Exam: Normal Bowel Sounds Assessment and Plan - Assessment and Plan (Free Text) Assessment: R leg pain venous doppler negative PT RLE rash Dermatiis vs cellulitis?? ID consult appreciated Disposition?? 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
[2015-09-16] MEDS: LEVODOPA PO SCH ×3 (09:05→17:25)
[2015-09-16] MEDS: CARBIDOPA PO SCH ×3 (09:05→17:25)
[2015-09-16] MEDS: Lidocaine 5% Patch TD SCH (09:06)
[2015-09-17] MEDS: LEVODOPA PO SCH ×3 (08:43→16:20)
[2015-09-17] MEDS: CARBIDOPA PO SCH ×3 (08:43→16:20)
[2015-09-17] MEDS: Lidocaine 5% Patch TD SCH (08:45)
[2015-09-18] MEDS: LEVODOPA PO SCH (09:01)
[2015-09-18] MEDS: CARBIDOPA PO SCH (09:01)
[2015-09-18] MEDS: Lidocaine 5% Patch TD SCH (09:03)
[2015-09-18] MEDS: Carbidopa/Levodopa 50/200 CR PO SCH (16:20)
--- NOTE | 2015-09-18 20:54 | CP.PCM.PN ---
Subjective - Date & Time of Evaluation Date of Evaluation: 09/18/15 Time of Evaluation: 22:22 - Subjective Subjective: c/o leg pain Objective - Vital Signs/Intake and Output Vital Signs (last 24 hours): Temp Pulse Resp BP Pulse Ox 97.7 F 73 18 147/83 95 09/18/15 16:28 09/18/15 16:28 09/18/15 17:00 09/18/15 16:28 09/18/15 16:28 - Medications Medications: Current Medications Acetaminophen (Tylenol 325mg Tab) 650 mg PO Q6 PRN PRN Reason: Pain, moderate (4-7) Last Admin: 09/18/15 09:41 Dose: 650 mg Carbidopa/Levodopa (Sinemet 10/100) 0.5 tab PO TID@0600,1500,2100 [facility] Last Admin: 09/18/15 16:20 Dose: 0.5 tab Carbidopa/Levodopa (Sinemet Cr) 1 tab PO TID [facility] Last Admin: 09/18/15 16:20 Dose: 1 tab Donepezil HCl (Aricept) 10 mg PO HS [facility] Last Admin: 09/17/15 22:09 Dose: 10 mg Fluocinonide (Lidex 0.05% Oint) 1 applic TOP BID [facility] Last Admin: 09/18/15 18:19 Dose: 1 applic Gabapentin (Neurontin) 600 mg PO TID [facility] Last Admin: 09/18/15 16:20 Dose: 600 mg Lidocaine (Lidoderm) 1 ea TD DAILY [facility] Last Admin: 09/18/15 09:03 Dose: 1 ea Midodrine (Proamatine) 5 mg PO TID [facility] Last Admin: 09/18/15 16:20 Dose: 5 mg Quetiapine Fumarate (Seroquel) 50 mg PO HS PRN PRN Reason: FOR AGITATION Last Admin: 09/16/15 09:04 Dose: 50 mg Tramadol HCl (Ultram) 50 mg PO Q6 PRN PRN Reason: Pain, moderate (4-7) Last Admin: 09/18/15 17:03 Dose: 50 mg - Labs Labs: 08/18/15 05:00 08/18/15 05:00 - Respiratory Exam Respiratory Exam: NORMAL BREATHING PATTERN - Cardiovascular Exam Cardiovascular Exam: REGULAR RHYTHM - GI/Abdominal Exam GI & Abdominal Exam: Normal Bowel Sounds Assessment and Plan - Assessment and Plan (Free Text) Assessment: R leg pain venous doppler negative PT RLE rash Dermatiis vs cellulitis?? ID consult appreciated Disposition?? 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
[2015-09-19] MEDS: Carbidopa/Levodopa 50/200 CR PO SCH ×3 (08:56→16:43)
[2015-09-19] MEDS: Lidocaine 5% Patch TD SCH (08:57)
[2015-09-20] MEDS: Lidocaine 5% Patch TD SCH (08:39)
[2015-09-20] MEDS: Carbidopa/Levodopa 50/200 CR PO SCH ×3 (08:40→16:32)
--- NOTE | 2015-09-20 11:45 | CP.PCM.PN ---
Subjective - Date & Time of Evaluation Date of Evaluation: 09/20/15 Time of Evaluation: 09:00 - Subjective Subjective: comfortable afebrile orders renewed Objective - Vital Signs/Intake and Output Vital Signs (last 24 hours): Temp Pulse Resp BP Pulse Ox 97.9 F 78 20 116/76 98 09/20/15 07:57 09/20/15 07:57 09/20/15 07:57 09/20/15 07:57 09/20/15 07:57 - Medications Medications: Current Medications Acetaminophen (Tylenol 325mg Tab) 650 mg PO Q6 PRN PRN Reason: Pain, moderate (4-7) Last Admin: 09/18/15 09:41 Dose: 650 mg Carbidopa/Levodopa (Sinemet 10/100) 0.5 tab PO TID@0600,1500,2100 [facility] Last Admin: 09/20/15 06:44 Dose: 0.5 tab Carbidopa/Levodopa (Sinemet Cr) 1 tab PO TID [facility] Last Admin: 09/20/15 08:40 Dose: 1 tab Donepezil HCl (Aricept) 10 mg PO HS [facility] Last Admin: 09/19/15 21:51 Dose: 10 mg Fluocinonide (Lidex 0.05% Oint) 1 applic TOP BID [facility] Last Admin: 09/20/15 10:08 Dose: 1 applic Gabapentin (Neurontin) 600 mg PO TID [facility] Last Admin: 09/20/15 08:40 Dose: 600 mg Lidocaine (Lidoderm) 1 ea TD DAILY [facility] Last Admin: 09/20/15 08:39 Dose: Not Given Midodrine (Proamatine) 5 mg PO TID [facility] Last Admin: 09/20/15 08:40 Dose: 5 mg Quetiapine Fumarate (Seroquel) 50 mg PO HS PRN PRN Reason: FOR AGITATION Last Admin: 09/16/15 09:04 Dose: 50 mg Tramadol HCl (Ultram) 50 mg PO Q6 PRN PRN Reason: Pain, moderate (4-7) Last Admin: 09/20/15 02:34 Dose: 50 mg - Labs Labs: 08/18/15 05:00 08/18/15 05:00 - Constitutional Appears: Non-toxic - Head Exam Head Exam: NORMOCEPHALIC - Eye Exam Eye Exam: PERRL. absent: Scleral icterus - ENT Exam ENT Exam: Mucous Membranes Dry - Neck Exam Neck Exam: absent: Lymphadenopathy - Respiratory Exam Respiratory Exam: Decreased Breath Sounds, Clear to Ausculation Bilateral - Cardiovascular Exam Cardiovascular Exam: REGULAR RHYTHM, +S1, +S2 - GI/Abdominal Exam GI & Abdominal Exam: Soft. absent: Tenderness - Rectal Exam Rectal Exam: Deferred - Exam Exam: NORMAL INSPECTION - Back Exam Back Exam: absent: CVA tenderness (L), CVA tenderness (R) - Neurological Exam Neurological Exam: Alert, Awake Assessment and Plan (1) Cellulitis and abscess of leg, except foot Status: Suspected
--- NOTE | 2015-09-20 19:37 | CP.PCM.PN ---
Subjective - Date & Time of Evaluation Date of Evaluation: 09/20/15 Time of Evaluation: 22:22 - Subjective Subjective: Pt ambulted in hallway Unsteady gait Objective - Vital Signs/Intake and Output Vital Signs (last 24 hours): Temp Pulse Resp BP Pulse Ox 98.1 F 68 20 104/55 L 99 09/20/15 16:29 09/20/15 16:29 09/20/15 16:29 09/20/15 16:29 09/20/15 16:29 - Medications Medications: Current Medications Acetaminophen (Tylenol 325mg Tab) 650 mg PO Q6 PRN PRN Reason: Pain, moderate (4-7) Last Admin: 09/18/15 09:41 Dose: 650 mg Carbidopa/Levodopa (Sinemet 10/100) 0.5 tab PO TID@0600,1500,2100 [facility] Last Admin: 09/20/15 15:00 Dose: 0.5 tab Carbidopa/Levodopa (Sinemet Cr) 1 tab PO TID [facility] Last Admin: 09/20/15 16:32 Dose: 1 tab Donepezil HCl (Aricept) 10 mg PO HS [facility] Last Admin: 09/19/15 21:51 Dose: 10 mg Fluocinonide (Lidex 0.05% Oint) 1 applic TOP BID [facility] Last Admin: 09/20/15 16:33 Dose: 1 applic Gabapentin (Neurontin) 600 mg PO TID [facility] Last Admin: 09/20/15 16:32 Dose: 600 mg Lidocaine (Lidoderm) 1 ea TD DAILY [facility] Last Admin: 09/20/15 08:39 Dose: Not Given Midodrine (Proamatine) 5 mg PO TID [facility] Last Admin: 09/20/15 16:32 Dose: 5 mg Quetiapine Fumarate (Seroquel) 50 mg PO HS PRN PRN Reason: FOR AGITATION Last Admin: 09/16/15 09:04 Dose: 50 mg Tramadol HCl (Ultram) 50 mg PO Q6 PRN PRN Reason: Pain, moderate (4-7) Last Admin: 09/20/15 02:34 Dose: 50 mg - Labs Labs: 08/18/15 05:00 08/18/15 05:00 - Respiratory Exam Respiratory Exam: NORMAL BREATHING PATTERN - Cardiovascular Exam Cardiovascular Exam: REGULAR RHYTHM - GI/Abdominal Exam GI & Abdominal Exam: Normal Bowel Sounds Assessment and Plan - Assessment and Plan (Free Text) Assessment: Disposition?? Pt is competent Social service and family Pt is [place] R leg pain venous doppler negative PT RLE rash Dermatiis vs cellulitis?? 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
[2015-09-21] MEDS: Lidocaine 5% Patch TD SCH (08:31)
[2015-09-21] MEDS: Carbidopa/Levodopa 50/200 CR PO SCH ×3 (08:32→16:29)
--- NOTE | 2015-09-21 21:04 | CP.PCM.PN ---
Subjective - Date & Time of Evaluation Date of Evaluation: 09/21/15 Time of Evaluation: 22:22 - Subjective Subjective: No change in status Objective - Vital Signs/Intake and Output Vital Signs (last 24 hours): Temp Pulse Resp BP Pulse Ox 98.2 F 72 20 130/75 98 09/21/15 16:53 09/21/15 16:53 09/21/15 08:34 09/21/15 16:53 09/21/15 16:53 - Medications Medications: Current Medications Acetaminophen (Tylenol 325mg Tab) 650 mg PO Q6 PRN PRN Reason: Pain, moderate (4-7) Last Admin: 09/18/15 09:41 Dose: 650 mg Carbidopa/Levodopa (Sinemet 10/100) 0.5 tab PO TID@0600,1500,2100 [facility] Last Admin: 09/21/15 15:38 Dose: 0.5 tab Carbidopa/Levodopa (Sinemet Cr) 1 tab PO TID [facility] Last Admin: 09/21/15 16:29 Dose: 1 tab Donepezil HCl (Aricept) 10 mg PO HS [facility] Last Admin: 09/20/15 21:32 Dose: 10 mg Fluocinonide (Lidex 0.05% Oint) 1 applic TOP BID [facility] Last Admin: 09/21/15 17:44 Dose: 1 applic Gabapentin (Neurontin) 600 mg PO TID [facility] Last Admin: 09/21/15 16:28 Dose: 600 mg Lidocaine (Lidoderm) 1 ea TD DAILY [facility] Last Admin: 09/21/15 08:31 Dose: Not Given Midodrine (Proamatine) 5 mg PO TID [facility] Last Admin: 09/21/15 16:29 Dose: 5 mg Quetiapine Fumarate (Seroquel) 50 mg PO HS PRN PRN Reason: FOR AGITATION Last Admin: 09/16/15 09:04 Dose: 50 mg Tramadol HCl (Ultram) 50 mg PO Q6 PRN PRN Reason: Pain, moderate (4-7) Last Admin: 09/21/15 13:45 Dose: 50 mg - Labs Labs: 08/18/15 05:00 08/18/15 05:00 - Respiratory Exam Respiratory Exam: NORMAL BREATHING PATTERN - Cardiovascular Exam Cardiovascular Exam: REGULAR RHYTHM - GI/Abdominal Exam GI & Abdominal Exam: Normal Bowel Sounds Assessment and Plan - Assessment and Plan (Free Text) Assessment: Disposition?? Pt is competent Social service and family Pt is R leg pain venous doppler negative PT RLE rash Dermatiis vs cellulitis?? 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
[2015-09-22] MEDS: Lidocaine 5% Patch TD SCH (09:27)
[2015-09-22] MEDS: Carbidopa/Levodopa 50/200 CR PO SCH ×3 (09:29→15:59)
[2015-09-22 11:05] LABS: HEMOGLOBIN 12.8 g/dL (12.0-18.0); MEAN CELL VOLUME 92.9 fl (80.0-94.0); MEAN CORPUSCULAR HEMOGLOBIN 30.6 pg (27.0-31.0); RBC 4.18 Mil/uL (4.40-5.90); RED CELL DISTRIBUTION WIDTH 15.3 % (11.5-14.5); WHITE BLOOD COUNT 6.3 K/uL (4.8-10.8)
[2015-09-22 11:43] LABS: ALB/GLOB RATIO 1.4 (1.0-2.1); ALBUMIN 4.2 g/dL (3.5-5.0); ALT/SGPT 12 U/L (21-72); AST/SGOT 17 U/L (17-59); BLOOD UREA NITROGEN 26 mg/dl (9-20); CALCIUM 9.1 mg/dL (8.4-10.2); GFR AFRICAN-AMERICAN > 60; GFR NON-AFRICAN AMERICAN > 60
--- NOTE | 2015-09-22 15:16 | CP.PCM.PN ---
Subjective - Date & Time of Evaluation Date of Evaluation: 09/22/15 Time of Evaluation: 22:22 - Subjective Subjective: Doing well Objective - Vital Signs/Intake and Output Vital Signs (last 24 hours): Temp Pulse Resp BP Pulse Ox 97.9 F 68 20 119/59 L 97 09/22/15 08:15 09/22/15 08:15 09/22/15 08:15 09/22/15 08:15 09/22/15 08:15 - Medications Medications: Current Medications Acetaminophen (Tylenol 325mg Tab) 650 mg PO Q6 PRN PRN Reason: Pain, moderate (4-7) Last Admin: 09/18/15 09:41 Dose: 650 mg Carbidopa/Levodopa (Sinemet 10/100) 0.5 tab PO TID@0600,1500,2100 [facility] Last Admin: 09/22/15 06:25 Dose: 0.5 tab Carbidopa/Levodopa (Sinemet Cr) 1 tab PO TID [facility] Last Admin: 09/22/15 12:56 Dose: 1 tab Donepezil HCl (Aricept) 10 mg PO HS [facility] Last Admin: 09/21/15 21:41 Dose: 10 mg Fluocinonide (Lidex 0.05% Oint) 1 applic TOP BID [facility] Last Admin: 09/22/15 09:27 Dose: 1 applic Gabapentin (Neurontin) 600 mg PO TID [facility] Last Admin: 09/22/15 12:55 Dose: 600 mg Lidocaine (Lidoderm) 1 ea TD DAILY [facility] Last Admin: 09/22/15 09:27 Dose: 1 ea Midodrine (Proamatine) 5 mg PO TID [facility] Last Admin: 09/22/15 12:55 Dose: 5 mg Quetiapine Fumarate (Seroquel) 50 mg PO HS PRN PRN Reason: FOR AGITATION Last Admin: 09/16/15 09:04 Dose: 50 mg Tramadol HCl (Ultram) 50 mg PO Q6 PRN PRN Reason: Pain, moderate (4-7) Last Admin: 09/22/15 09:28 Dose: 50 mg - Labs Labs: 09/22/15 10:45 09/22/15 10:45 - Respiratory Exam Respiratory Exam: NORMAL BREATHING PATTERN - Cardiovascular Exam Cardiovascular Exam: REGULAR RHYTHM - GI/Abdominal Exam GI & Abdominal Exam: Normal Bowel Sounds
[2015-09-23] MEDS: Carbidopa/Levodopa 50/200 CR PO SCH ×3 (09:06→16:41)
[2015-09-23] MEDS: Lidocaine 5% Patch TD SCH (09:07)
--- NOTE | 2015-09-23 13:38 | CP.PCM.PN ---
Subjective - Date & Time of Evaluation Date of Evaluation: 09/23/15 Time of Evaluation: 13:40 - Subjective Subjective: no fever complains of generalized pains though seems comfortable and eating his lunch at present per staff very anxious no CP no SOB Objective - Vital Signs/Intake and Output Vital Signs (last 24 hours): Temp Pulse Resp BP Pulse Ox 97.5 F L 52 L 20 126/60 98 09/22/15 16:30 09/22/15 16:30 09/22/15 08:15 09/22/15 16:30 09/22/15 16:30 - Medications Medications: Current Medications Acetaminophen (Tylenol 325mg Tab) 650 mg PO Q6 PRN PRN Reason: Pain, moderate (4-7) Last Admin: 09/18/15 09:41 Dose: 650 mg Carbidopa/Levodopa (Sinemet 10/100) 0.5 tab PO TID@0600,1500,2100 [facility] Last Admin: 09/23/15 05:53 Dose: 0.5 tab Carbidopa/Levodopa (Sinemet Cr) 1 tab PO TID [facility] Last Admin: 09/23/15 12:43 Dose: 1 tab Clonazepam (Klonopin) 0.5 mg PO DAILY [facility] Donepezil HCl (Aricept) 10 mg PO HS [facility] Last Admin: 09/22/15 21:14 Dose: 10 mg Fluocinonide (Lidex 0.05% Oint) 1 applic TOP BID [facility] Last Admin: 09/23/15 09:10 Dose: 1 applic Gabapentin (Neurontin) 600 mg PO TID [facility] Last Admin: 09/23/15 12:43 Dose: 600 mg Lidocaine (Lidoderm) 1 ea TD DAILY [facility] Last Admin: 09/23/15 09:07 Dose: 1 ea Midodrine (Proamatine) 5 mg PO TID [facility] Last Admin: 09/23/15 12:44 Dose: 5 mg Quetiapine Fumarate (Seroquel) 50 mg PO HS PRN PRN Reason: FOR AGITATION Last Admin: 09/16/15 09:04 Dose: 50 mg Tramadol HCl (Ultram) 50 mg PO Q6 PRN PRN Reason: Pain, moderate (4-7) Last Admin: 09/23/15 03:49 Dose: 50 mg - Labs Labs: 09/22/15 10:45 03/11/16 10:45 - Constitutional Appears: No Acute Distress - Head Exam Head Exam: NORMAL INSPECTION, NORMOCEPHALIC - Eye Exam Eye Exam: EOMI, Normal appearance Pupil Exam: NORMAL ACCOMODATION - ENT Exam ENT Exam: Mucous Membranes Moist, Normal External Ear Exam - Neck Exam Neck Exam: Full ROM. absent: Meningismus - Respiratory Exam Respiratory Exam: NORMAL BREATHING PATTERN. absent: Respiratory Distress - Cardiovascular Exam Cardiovascular Exam: REGULAR RHYTHM, +S1, +S2 - GI/Abdominal Exam GI & Abdominal Exam: Soft, Normal Bowel Sounds. absent: Tenderness - Extremities Exam Extremities Exam: Normal Capillary Refill. absent: Calf Tenderness, Pedal Edema - Neurological Exam Neurological Exam: Alert, Awake, CN II-XII Intact, Oriented x3 - Psychiatric Exam Psychiatric exam: Flat Affect - Skin Skin Exam: Dry, Normal Color, Warm Assessment and Plan (1) Fall Status: Acute (2) Parkinson disease Status: Chronic (3) DVT prophylaxis Status: Acute (4) Thrombocytopenia Status: Chronic (5) Atrial fibrillation Status: Chronic (6) Orthostasis Status: Chronic - Assessment and Plan (Free Text) Assessment: (1) Fall Hx of frequent fall due to gait disturbance due to advanced Parkinson's PT while in hospital for gait training Will need placement to [facility] -patient has signed documents needed, SW following up on [facility] for LTC placement (2) Osteoarthritis Right Shoulder pain upon extension and Right knee pain, improved consulted OT for ROM and exercise continue tylenol prn, hot pack and lidoderm patch, in addition to Ultram (3) Parkinson disease, chronic Continue Carbidopa/Levodopa (4) Thrombocytopenia, chronic unclear etiology Stable (5) Depression/Anxiety Continue Seroquel psych consulted, patient is competent and has capacity start low dose Klonopin (6) Hypotension hx of Orthostasis, Shy Drager Syndrome Continue Midodrine (7) Shingles improved Isolation discontinued topical hydrocortisone ID was consulted Pain management as needed (8) DVT prophylaxis Lovenox
[2015-09-24] MEDS: Lidocaine 5% Patch TD SCH (08:51)
[2015-09-24] MEDS: Carbidopa/Levodopa 50/200 CR PO SCH ×3 (08:52→16:22)
--- NOTE | 2015-09-24 12:54 | CP.PCM.PN ---
Subjective - Date & Time of Evaluation Date of Evaluation: 09/24/15 Time of Evaluation: 12:50 - Subjective Subjective: no fever complains of generalized aches and pains no CP no SOB no abd pain Objective - Vital Signs/Intake and Output Vital Signs (last 24 hours): Temp Pulse Resp BP Pulse Ox 97.3 F L 63 20 140/65 98 09/24/15 08:35 09/24/15 08:35 09/24/15 08:35 09/24/15 08:35 09/24/15 08:35 - Medications Medications: Current Medications Acetaminophen (Tylenol 325mg Tab) 650 mg PO Q6 PRN PRN Reason: Pain, moderate (4-7) Last Admin: 09/18/15 09:41 Dose: 650 mg Carbidopa/Levodopa (Sinemet 10/100) 0.5 tab PO TID@0600,1500,2100 [facility] Last Admin: 09/24/15 05:45 Dose: 0.5 tab Carbidopa/Levodopa (Sinemet Cr) 1 tab PO TID [facility] Last Admin: 09/24/15 08:52 Dose: 1 tab Clonazepam (Klonopin) 0.5 mg PO DAILY [facility] Last Admin: 09/24/15 08:51 Dose: 0.5 mg Donepezil HCl (Aricept) 10 mg PO HS [facility] Last Admin: 09/23/15 21:30 Dose: 10 mg Fluocinonide (Lidex 0.05% Oint) 1 applic TOP BID [facility] Last Admin: 09/24/15 08:54 Dose: 1 applic Gabapentin (Neurontin) 600 mg PO TID [facility] Last Admin: 09/24/15 08:53 Dose: 600 mg Lidocaine (Lidoderm) 1 ea TD DAILY [facility] Last Admin: 09/24/15 08:51 Dose: 1 ea Midodrine (Proamatine) 5 mg PO TID [facility] Last Admin: 09/24/15 08:52 Dose: 5 mg Quetiapine Fumarate (Seroquel) 50 mg PO HS PRN PRN Reason: FOR AGITATION Last Admin: 09/16/15 09:04 Dose: 50 mg Tramadol HCl (Ultram) 50 mg PO Q6 PRN PRN Reason: Pain, moderate (4-7) Last Admin: 09/24/15 10:00 Dose: 50 mg - Labs Labs: 09/22/15 10:45 09/22/15 10:45 - Constitutional Appears: No Acute Distress - Head Exam Head Exam: NORMAL INSPECTION, NORMOCEPHALIC - Eye Exam Eye Exam: EOMI, Normal appearance Pupil Exam: NORMAL ACCOMODATION - ENT Exam ENT Exam: Mucous Membranes Moist, Normal External Ear Exam - Neck Exam Neck Exam: Full ROM. absent: Meningismus - Respiratory Exam Respiratory Exam: NORMAL BREATHING PATTERN. absent: Respiratory Distress - Cardiovascular Exam Cardiovascular Exam: REGULAR RHYTHM, +S1, +S2 - GI/Abdominal Exam GI & Abdominal Exam: Soft, Normal Bowel Sounds. absent: Tenderness - Extremities Exam Extremities Exam: Normal Capillary Refill. absent: Calf Tenderness - Neurological Exam Neurological Exam: Alert, Awake, CN II-XII Intact, Oriented x3 - Psychiatric Exam Psychiatric exam: Flat Affect - Skin Skin Exam: Dry, Normal Color, Warm Assessment and Plan (1) Fall Status: Acute (2) Parkinson disease Status: Chronic (3) DVT prophylaxis Status: Acute (4) Thrombocytopenia Status: Chronic (5) Atrial fibrillation Status: Chronic (6) Orthostasis Status: Chronic - Assessment and Plan (Free Text) Assessment: (1) Fall Hx of frequent fall due to gait disturbance due to advanced Parkinson's PT while in hospital for gait training Will need placement to [facility] -patient has signed documents needed, SW following up on [facility] for LTC placement (2) Osteoarthritis Right Shoulder pain upon extension and Right knee pain, improved consulted OT for ROM and exercise continue tylenol prn, hot pack and lidoderm patch, in addition to Ultram (3) Parkinson disease, chronic Continue Carbidopa/Levodopa (4) Thrombocytopenia, chronic unclear etiology Stable (5) Depression/Anxiety Continue Seroquel psych consulted, patient is competent and has capacity start low dose Klonopin (6) Hypotension hx of Orthostasis, Shy Drager Syndrome Continue Midodrine (7) Shingles improved Isolation discontinued topical hydrocortisone ID was consulted Pain management as needed (8) DVT prophylaxis Lovenox
[2015-09-25] MEDS: Carbidopa/Levodopa 50/200 CR PO SCH ×3 (10:22→16:55)
[2015-09-25] MEDS: Lidocaine 5% Patch TD SCH (10:24)
--- NOTE | 2015-09-25 20:31 | CP.PCM.PN ---
Subjective - Date & Time of Evaluation Date of Evaluation: 09/25/15 Time of Evaluation: 22:22 - Subjective Subjective: Doing well Objective - Vital Signs/Intake and Output Vital Signs (last 24 hours): Temp Pulse Resp BP Pulse Ox 97.3 F L 61 20 153/74 H 100 09/25/15 16:00 09/25/15 16:00 09/25/15 08:25 09/25/15 16:00 09/25/15 16:00 - Medications Medications: Current Medications Acetaminophen (Tylenol 325mg Tab) 650 mg PO Q6 PRN PRN Reason: Pain, moderate (4-7) Last Admin: 09/18/15 09:41 Dose: 650 mg Carbidopa/Levodopa (Sinemet 10/100) 0.5 tab PO TID@0600,1500,2100 [facility] Last Admin: 09/25/15 15:24 Dose: 0.5 tab Carbidopa/Levodopa (Sinemet Cr) 1 tab PO TID [facility] Last Admin: 09/25/15 16:55 Dose: 1 tab Clonazepam (Klonopin) 0.5 mg PO DAILY [facility] Last Admin: 09/25/15 10:27 Dose: 0.5 mg Donepezil HCl (Aricept) 10 mg PO HS [facility] Last Admin: 09/24/15 21:01 Dose: 10 mg Fluocinonide (Lidex 0.05% Oint) 1 applic TOP BID [facility] Last Admin: 09/25/15 16:27 Dose: 1 applic Gabapentin (Neurontin) 600 mg PO TID [facility] Last Admin: 09/25/15 16:56 Dose: 600 mg Lidocaine (Lidoderm) 1 ea TD DAILY [facility] Last Admin: 09/25/15 10:24 Dose: 1 ea Midodrine (Proamatine) 5 mg PO TID [facility] Last Admin: 09/25/15 16:55 Dose: 5 mg Quetiapine Fumarate (Seroquel) 50 mg PO HS PRN PRN Reason: FOR AGITATION Last Admin: 09/25/15 16:55 Dose: 50 mg Tramadol HCl (Ultram) 50 mg PO Q6 PRN PRN Reason: Pain, moderate (4-7) Last Admin: 09/25/15 11:51 Dose: 50 mg - Labs Labs: 09/22/15 10:45 09/22/15 10:45 - Respiratory Exam Respiratory Exam: NORMAL BREATHING PATTERN - Cardiovascular Exam Cardiovascular Exam: REGULAR RHYTHM - GI/Abdominal Exam GI & Abdominal Exam: Normal Bowel Sounds Assessment and Plan - Assessment and Plan (Free Text) Assessment: Disposition?? Pt is competent Social service and family Pt is [place] R leg pain venous doppler negative PT RLE rash Dermatiis vs cellulitis?? 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
[2015-09-26] MEDS: Carbidopa/Levodopa 50/200 CR PO SCH ×3 (09:12→17:34)
[2015-09-26] MEDS: Lidocaine 5% Patch TD SCH (09:13)
--- NOTE | 2015-09-26 20:04 | CP.PCM.PN ---
Subjective - Date & Time of Evaluation Date of Evaluation: 09/26/15 Time of Evaluation: 22:22 - Subjective Subjective: c/o leg pain c/o shoulder pain Objective - Vital Signs/Intake and Output Vital Signs (last 24 hours): Temp Pulse Resp BP Pulse Ox 97.8 F 85 20 120/62 99 09/26/15 07:56 09/26/15 07:56 09/26/15 07:56 09/26/15 07:56 09/26/15 07:56 - Medications Medications: Current Medications Acetaminophen (Tylenol 325mg Tab) 650 mg PO Q6 PRN PRN Reason: Pain, moderate (4-7) Last Admin: 09/26/15 09:39 Dose: 650 mg Carbidopa/Levodopa (Sinemet 10/100) 0.5 tab PO TID@0600,1500,2100 [facility] Last Admin: 09/26/15 15:24 Dose: 0.5 tab Carbidopa/Levodopa (Sinemet Cr) 1 tab PO TID [facility] Last Admin: 09/26/15 17:34 Dose: 1 tab Clonazepam (Klonopin) 0.5 mg PO DAILY [facility] Last Admin: 09/26/15 09:19 Dose: 0.5 mg Donepezil HCl (Aricept) 10 mg PO HS [facility] Last Admin: 09/25/15 21:14 Dose: 10 mg Fluocinonide (Lidex 0.05% Oint) 1 applic TOP BID [facility] Last Admin: 09/26/15 17:35 Dose: 1 applic Gabapentin (Neurontin) 600 mg PO TID [facility] Last Admin: 09/26/15 17:34 Dose: 600 mg Lidocaine (Lidoderm) 1 ea TD DAILY [facility] Last Admin: 09/26/15 09:13 Dose: 1 ea Midodrine (Proamatine) 5 mg PO TID [facility] Last Admin: 09/26/15 17:34 Dose: 5 mg Quetiapine Fumarate (Seroquel) 50 mg PO HS PRN PRN Reason: FOR AGITATION Last Admin: 09/25/15 16:55 Dose: 50 mg Tramadol HCl (Ultram) 50 mg PO Q6 PRN PRN Reason: Pain, moderate (4-7) Last Admin: 09/26/15 11:21 Dose: 50 mg - Labs Labs: 09/22/15 10:45 03/11/16 10:45 - Respiratory Exam Respiratory Exam: NORMAL BREATHING PATTERN - Cardiovascular Exam Cardiovascular Exam: REGULAR RHYTHM - GI/Abdominal Exam GI & Abdominal Exam: Normal Bowel Sounds Assessment and Plan - Assessment and Plan (Free Text) Assessment: R leg pain LBP Hx of HNP Neuro consult venous doppler negative PT R shoulder pain Dislocation Ortho PT Disposition?? Pt is competent Social service and family Pt is [place] RLE rash Dermatiis vs cellulitis?? 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
[2015-09-27] MEDS: Carbidopa/Levodopa 50/200 CR PO SCH ×3 (08:38→15:59)
[2015-09-27] MEDS: Lidocaine 5% Patch TD SCH (08:39)
--- NOTE | 2015-09-27 13:26 | CON ---
DATE: 09/27/2015 CHIEF COMPLAINT: Parkinson's disease. HISTORY OF PRESENTING ILLNESS: The patient is an 85-year-old man who has had Parkinson's disease sin ce 1996, who has been admitted for recurrent falls. 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 Apparently, patient has history of episodes of dizziness an d falling to the floor. He was on increased doses of Rytary for his Parkinson's disease which was be ing effective for him for ambulation, reducing motor fluctuations and freezing events but unfortunate ly he cannot get the medication anymore due to his approval. He is on midodrine for orthostatic hypo tension from Shy-Drager syndrome. He was placed on Sinemet-CR. His dose was recently increased to 5 0 mg p.o. t.i.d. and he is on regular Sinemet of 10/100 one tab p.o. t.i.d. Currently, he is feeling more stiffness than usual since he has been off the Rytary PAST MEDICAL HISTORY: History of Parkinson's disease, history of Shy-Drager syndrome, history of art hritis, history of recurrent falls. REVIEW OF SYSTEMS: A 14-point is negative except for above in the HPI. MEDICATIONS: Reviewed via nurse's reconciliation sheet. ALLERGIES: ALLERGIC TO PENICILLIN. SOCIAL HISTORY: Denies any illicit drug use, smoking, or ETOH abuse. PHYSICAL EXAMINATION: VITAL SIGNS: Temperature, patient is afebrile, pulse rate of 84, blood pressure 136/71, respiratory rate 19, oxygen saturation 98% via room air. GENERAL: The patient is sitting up in bed, in no acute distress. HEENT: Atraumatic, normocephalic. PERRLA. Extraocular muscles intact. NECK: Supple, no JVD, no adenopathy noted. LUNGS: Clear to auscultation. No adventitious sounds. HEART: S1, S2, normal rate and rhythm. No murmurs, rubs, or gallops. ABDOMEN: Soft, nontender, nondistended. Bowel sounds are present. EXTREMITIES: No clubbing, no cyanosis. Peripheral pulses 2+ felt bilaterally. NEUROLOGIC: The patient is alert, oriented to person, place, month and time. Speech is hypophonic, but has fluent speech. Cranial nerves II-XII are intact. MOTOR: Increased tone throughout, cogwheel rigidity at both wrists. SENSORY: Light touch, pinprick, proprioception, vibration is intact bilaterally. DEEP TENDON REFLEXES: 2+ throughout. COORDINATION: [id number] intact. GAIT: He is slow to rise from the chair, very ataxic type of gait. LABORATORIES: Reviewed. 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 Initially on Rytary, which helped him with motor fluctuations as well as freezing. He is currently off the Rytary since he was getting samples from Dr. Rosas, who is his neurologist, who is no longer here. I was consulted for further management of his Parkinson's disease. His Sine met-CR was recently increased to 50 p.o. t.i.d. and he is on regular Sinemet of 10/100 mg p.o. t.i.d. At this time, recommend: 1. To continue with 50 mg over 100 t.i.d. of Sinemet-CR and will increase the regular Sinemet to 25/ 100 p.o. t.i.d. 2. Recommend physical therapy. 3. Baclofen p.r.n. at night just for some stiffness. 4. Continue with physical and occupational therapy. Once again, thank you for this consult. The patient is neurologically stable. Casey Andrade MD cc: [id number] TT: 09/27/2015 13:27:48 Confirmation # [id number] Dictation # [id number]
--- NOTE | 2015-09-27 19:17 | CP.PCM.PN ---
Subjective - Date & Time of Evaluation Date of Evaluation: 09/27/15 Time of Evaluation: 22:22 - Subjective Subjective: Neuro consult appreciated Objective - Vital Signs/Intake and Output Vital Signs (last 24 hours): Temp Pulse Resp BP Pulse Ox 98.1 F 60 20 99/57 L 100 09/27/15 18:05 09/27/15 18:05 09/27/15 18:05 09/27/15 18:06 09/27/15 18:05 - Medications Medications: Current Medications Acetaminophen (Tylenol 325mg Tab) 650 mg PO Q6 PRN PRN Reason: Pain, moderate (4-7) Last Admin: 09/26/15 09:39 Dose: 650 mg Baclofen (Baclofen) 10 mg PO HS [facility] Carbidopa/Levodopa (Sinemet Cr) 1 tab PO TID [facility] Last Admin: 09/27/15 15:59 Dose: 1 tab Carbidopa/Levodopa (Sinemet) 1 tab PO TID@0600,1500,2100 [facility] Clonazepam (Klonopin) 0.5 mg PO DAILY [facility] Last Admin: 09/27/15 08:40 Dose: 0.5 mg Donepezil HCl (Aricept) 10 mg PO HS [facility] Last Admin: 09/26/15 22:42 Dose: 10 mg Fluocinonide (Lidex 0.05% Oint) 1 applic TOP BID [facility] Last Admin: 09/27/15 16:00 Dose: 1 applic Gabapentin (Neurontin) 600 mg PO TID [facility] Last Admin: 09/27/15 16:00 Dose: 600 mg Lidocaine (Lidoderm) 1 ea TD DAILY [facility] Last Admin: 09/27/15 08:39 Dose: 1 ea Midodrine (Proamatine) 5 mg PO TID [facility] Last Admin: 09/27/15 15:59 Dose: 5 mg Ondansetron HCl (Zofran Inj) 4 mg IVP Q6 PRN PRN Reason: Nausea/Vomiting Quetiapine Fumarate (Seroquel) 50 mg PO HS PRN PRN Reason: FOR AGITATION Last Admin: 09/25/15 16:55 Dose: 50 mg Tramadol HCl (Ultram) 50 mg PO Q6 PRN PRN Reason: Pain, moderate (4-7) Last Admin: 09/26/15 11:21 Dose: 50 mg - Labs Labs: 09/22/15 10:45 09/22/15 10:45 - Respiratory Exam Respiratory Exam: NORMAL BREATHING PATTERN - Cardiovascular Exam Cardiovascular Exam: REGULAR RHYTHM - GI/Abdominal Exam GI & Abdominal Exam: Normal Bowel Sounds Assessment and Plan - Assessment and Plan (Free Text) Assessment: R leg pain LBP Hx of HNP Neuro consult venous doppler negative PT R shoulder pain Dislocation Ortho PT Disposition?? Pt is competent Social service and family involved Pt is [place] RLE rash Dermatiis vs cellulitis?? 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
[2015-09-28 05:34] LABS: HEMOGLOBIN 12.5 g/dL (12.0-18.0); MEAN CELL VOLUME 93.8 fl (80.0-94.0); MEAN CORPUSCULAR HEMOGLOBIN 30.9 pg (27.0-31.0); RBC 4.05 Mil/uL (4.40-5.90); RED CELL DISTRIBUTION WIDTH 14.7 % (11.5-14.5); WHITE BLOOD COUNT 6.3 K/uL (4.8-10.8)
[2015-09-28 05:46] LABS: BLOOD UREA NITROGEN 29 mg/dl (9-20); CALCIUM 8.6 mg/dL (8.4-10.2); GFR AFRICAN-AMERICAN > 60; GFR NON-AFRICAN AMERICAN > 60
[2015-09-28] MEDS: Lidocaine 5% Patch TD SCH (08:59)
[2015-09-28] MEDS: Carbidopa/Levodopa 50/200 CR PO SCH ×4 (08:59→16:11)
--- NOTE | 2015-09-28 20:05 | CP.PCM.PN ---
Subjective - Date & Time of Evaluation Date of Evaluation: 09/28/15 Time of Evaluation: 22:22 - Subjective Subjective: More rigid today?? Objective - Vital Signs/Intake and Output Vital Signs (last 24 hours): Temp Pulse Resp BP Pulse Ox 97.3 F L 74 20 154/95 H 100 09/28/15 16:01 09/28/15 16:01 09/28/15 08:42 09/28/15 16:01 09/28/15 16:01 - Medications Medications: Current Medications Acetaminophen (Tylenol 325mg Tab) 650 mg PO Q6 PRN PRN Reason: Pain, moderate (4-7) Last Admin: 09/26/15 09:39 Dose: 650 mg Baclofen (Baclofen) 10 mg PO HS [facility] Last Admin: 09/27/15 21:04 Dose: 10 mg Carbidopa/Levodopa (Sinemet Cr) 1 tab PO TID [facility] Last Admin: 09/28/15 16:11 Dose: 1 tab Carbidopa/Levodopa (Sinemet) 1 tab PO TID@0600,1500,2100 [facility] Last Admin: 09/28/15 16:09 Dose: 1 tab Clonazepam (Klonopin) 0.5 mg PO DAILY [facility] Last Admin: 09/28/15 09:01 Dose: 0.5 mg Donepezil HCl (Aricept) 10 mg PO HS [facility] Last Admin: 09/27/15 21:04 Dose: 10 mg Fluocinonide (Lidex 0.05% Oint) 1 applic TOP BID [facility] Last Admin: 09/28/15 16:11 Dose: 1 applic Gabapentin (Neurontin) 600 mg PO TID [facility] Last Admin: 09/28/15 16:11 Dose: 600 mg Lidocaine (Lidoderm) 1 ea TD DAILY [facility] Last Admin: 09/28/15 08:59 Dose: 1 ea Midodrine (Proamatine) 5 mg PO TID [facility] Last Admin: 09/28/15 16:11 Dose: 5 mg Ondansetron HCl (Zofran Inj) 4 mg IVP Q6 PRN PRN Reason: Nausea/Vomiting Quetiapine Fumarate (Seroquel) 50 mg PO HS PRN PRN Reason: FOR AGITATION Last Admin: 09/25/15 16:55 Dose: 50 mg Tramadol HCl (Ultram) 50 mg PO Q6 PRN PRN Reason: Pain, moderate (4-7) Last Admin: 09/27/15 22:37 Dose: 50 mg - Labs Labs: 09/28/15 05:15 09/28/15 05:15 - Respiratory Exam Respiratory Exam: NORMAL BREATHING PATTERN - Cardiovascular Exam Cardiovascular Exam: REGULAR RHYTHM - GI/Abdominal Exam GI & Abdominal Exam: Normal Bowel Sounds Assessment and Plan - Assessment and Plan (Free Text) Assessment: R leg pain LBP Hx of HNP Neuro consult venous doppler negative PT R shoulder pain Dislocation Ortho PT Disposition?? Pt is competent Social service and family involved Pt is [place] RLE rash Dermatiis vs cellulitis?? 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
[2015-09-29] MEDS: Carbidopa/Levodopa 50/200 CR PO SCH ×3 (08:39→16:50)
[2015-09-29] MEDS: Lidocaine 5% Patch TD SCH (08:46)
--- NOTE | 2015-09-29 17:47 | CP.PCM.PN ---
Subjective - Date & Time of Evaluation Date of Evaluation: 09/29/15 Time of Evaluation: 22:22 - Subjective Subjective: Resting in bed Objective - Vital Signs/Intake and Output Vital Signs (last 24 hours): Temp Pulse Resp BP Pulse Ox 97.3 F L 69 20 132/63 99 09/29/15 17:05 09/29/15 17:05 09/29/15 17:05 09/29/15 17:05 09/29/15 17:05 - Medications Medications: Current Medications Acetaminophen (Tylenol 325mg Tab) 650 mg PO Q6 PRN PRN Reason: Pain, moderate (4-7) Last Admin: 09/26/15 09:39 Dose: 650 mg Baclofen (Baclofen) 10 mg PO HS [facility] Last Admin: 09/28/15 21:46 Dose: 10 mg Carbidopa/Levodopa (Sinemet Cr) 1 tab PO TID [facility] Last Admin: 09/29/15 16:50 Dose: 1 tab Carbidopa/Levodopa (Sinemet) 1 tab PO TID@0600,1500,2100 [facility] Last Admin: 09/29/15 16:49 Dose: 1 tab Clonazepam (Klonopin) 0.5 mg PO DAILY [facility] Last Admin: 09/29/15 08:42 Dose: 0.5 mg Docusate Sodium (Colace) 100 mg PO BID [facility] Last Admin: 09/29/15 16:49 Dose: Not Given Donepezil HCl (Aricept) 10 mg PO HS [facility] Last Admin: 09/28/15 21:47 Dose: 10 mg Fluocinonide (Lidex 0.05% Oint) 1 applic TOP BID [facility] Last Admin: 09/29/15 08:46 Dose: 1 applic Gabapentin (Neurontin) 600 mg PO TID [facility] Last Admin: 09/29/15 16:50 Dose: 600 mg Lactulose (Enulose) 10 gm PO DAILY PRN PRN Reason: Constipation Lidocaine (Lidoderm) 1 ea TD DAILY [facility] Last Admin: 09/29/15 08:46 Dose: Not Given Midodrine (Proamatine) 5 mg PO TID [facility] Last Admin: 09/29/15 16:49 Dose: 5 mg Ondansetron HCl (Zofran Inj) 4 mg IVP Q6 PRN PRN Reason: Nausea/Vomiting Quetiapine Fumarate (Seroquel) 50 mg PO HS PRN PRN Reason: FOR AGITATION Last Admin: 09/29/15 00:29 Dose: 50 mg Tramadol HCl (Ultram) 50 mg PO Q6 PRN PRN Reason: Pain, moderate (4-7) Last Admin: 09/27/15 22:37 Dose: 50 mg - Labs Labs: 09/28/15 05:15 09/28/15 05:15 - Respiratory Exam Respiratory Exam: NORMAL BREATHING PATTERN - Cardiovascular Exam Cardiovascular Exam: REGULAR RHYTHM - GI/Abdominal Exam GI & Abdominal Exam: Normal Bowel Sounds Assessment and Plan - Assessment and Plan (Free Text) Assessment: R leg pain LBP Hx of HNP Neuro consult venous doppler negative PT R shoulder pain Dislocation Ortho PT Disposition?? Pt is competent Social service and family involved Pt is [place] WW[place] RLE rash Dermatiis vs cellulitis?? 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
[2015-09-30] MEDS: Carbidopa/Levodopa 50/200 CR PO SCH ×3 (09:06→16:11)
--- NOTE | 2015-09-30 10:08 | CP.PCM.PN ---
Subjective - Date & Time of Evaluation Date of Evaluation: 09/30/15 Time of Evaluation: 11:30 - Subjective Subjective: Patient seen bedside. Sleeping comfortably in NAD.No acute issues overnight. Hemodynamically stable, afebrile. Objective - Vital Signs/Intake and Output Vital Signs (last 24 hours): Temp Pulse Resp BP Pulse Ox 97.5 F L 74 20 128/74 96 09/30/15 08:21 09/30/15 08:21 09/30/15 08:21 09/30/15 08:21 09/30/15 08:21 - Medications Medications: Current Medications Baclofen (Baclofen) 10 mg PO HS [facility] Last Admin: 09/29/15 21:05 Dose: 10 mg Carbidopa/Levodopa (Sinemet Cr) 1 tab PO TID [facility] Last Admin: 09/30/15 09:06 Dose: 1 tab Carbidopa/Levodopa (Sinemet) 1 tab PO TID@0600,1500,2100 [facility] Last Admin: 09/30/15 07:27 Dose: 1 tab Clonazepam (Klonopin) 0.5 mg PO DAILY [facility] Last Admin: 09/30/15 09:05 Dose: 0.5 mg Docusate Sodium (Colace) 100 mg PO BID [facility] Last Admin: 09/30/15 09:04 Dose: 100 mg Donepezil HCl (Aricept) 10 mg PO [facility] Last Admin: 09/29/15 21:05 Dose: 10 mg Fluocinonide (Lidex 0.05% Oint) 1 applic TOP BID [facility] Last Admin: 09/30/15 09:05 Dose: 1 applic Gabapentin (Neurontin) 600 mg PO TID [facility] Last Admin: 09/30/15 09:05 Dose: 600 mg Lactulose (Enulose) 10 gm PO DAILY PRN PRN Reason: Constipation Midodrine (Proamatine) 5 mg PO TID [facility] Last Admin: 09/30/15 09:05 Dose: 5 mg Ondansetron HCl (Zofran Inj) 4 mg IVP Q6 PRN PRN Reason: Nausea/Vomiting Quetiapine Fumarate (Seroquel) 50 mg PO HS PRN PRN Reason: FOR AGITATION Last Admin: 09/29/15 21:05 Dose: 50 mg Tramadol HCl (Ultram) 50 mg PO Q6 PRN PRN Reason: Pain, moderate (4-7) Last Admin: 09/27/15 22:37 Dose: 50 mg - Labs Labs: 09/28/15 05:15 09/28/15 05:15 - Constitutional Appears: Non-toxic, No Acute Distress, Chronically Ill - Head Exam Head Exam: ATRAUMATIC, NORMOCEPHALIC - Eye Exam Eye Exam: Normal appearance, PERRL - ENT Exam ENT Exam: Mucous Membranes Moist, Normal Exam - Neck Exam Neck Exam: Full ROM, Normal Inspection - Respiratory Exam Respiratory Exam: Clear to Ausculation Bilateral, NORMAL BREATHING PATTERN. absent: Rhonchi, Wheezes - Cardiovascular Exam Cardiovascular Exam: REGULAR RHYTHM, RRR, +S1, +S2. absent: JVD - GI/Abdominal Exam GI & Abdominal Exam: Soft, Normal Bowel Sounds. absent: Tenderness, Rebound - Extremities Exam Extremities Exam: Normal Capillary Refill, Normal Inspection - Neurological Exam Neurological Exam: Alert, Awake. absent: Oriented x3 - Psychiatric Exam Psychiatric exam: Anxious, Flat Affect - Skin Skin Exam: Warm Assessment and Plan (1) Fall Status: Acute (2) Parkinson disease Status: Chronic (3) Thrombocytopenia Status: Chronic (4) Depression Status: Chronic (5) Hypotension Status: Chronic (6) DVT prophylaxis Status: Acute - Assessment and Plan (Free Text) Assessment: (1)Unstable gait Hx of frequent fall due to gait disturbance due to advanced Parkinson's PT while in hospital for gait training Will need placement to [email or web address] -patient has signed documents needed, SW following up on Financials for LTC placement (2) Osteoarthritis Right Shoulder pain upon extension and Right knee pain, improved consulted OT for ROM and exercise continue tylenol prn, hot pack and lidoderm patch, in addition to Ultram (3) Parkinson disease, chronic Continue Carbidopa/Levodopa (4) Thrombocytopenia, chronic unclear etiology Stable hold lovenox (5) Depression/Anxiety Continue Seroquel psych consulted, patient is competent and has capacity started low dose Klonopin (6) Hypotension hx of Orthostasis, Shy Drager Syndrome Continue Midodrine (7) Shingles improved Isolation discontinued topical hydrocortisone ID was consulted Pain management as needed (8) DVT prophylaxis Lovenox
[2015-10-01] MEDS: Carbidopa/Levodopa 50/200 CR PO SCH ×3 (08:20→16:45)
--- NOTE | 2015-10-01 11:29 | CP.PCM.PN ---
Subjective - Date & Time of Evaluation Date of Evaluation: 10/01/15 Time of Evaluation: 13:00 - Subjective Subjective: Patient seen bedside. Resting comfortably.No acute issues overnight.Waiting for placement. Hemodynamically stable, afebrile. Objective - Vital Signs/Intake and Output Vital Signs (last 24 hours): Temp Pulse Resp BP Pulse Ox 96.6 F L 81 20 138/80 97 10/01/15 08:17 10/01/15 08:17 10/01/15 08:17 10/01/15 08:17 10/01/15 08:17 - Medications Medications: Current Medications Baclofen (Baclofen) 10 mg PO HS [facility] Last Admin: 09/30/15 22:00 Dose: 10 mg Carbidopa/Levodopa (Sinemet Cr) 1 tab PO TID [facility] Last Admin: 10/01/15 08:20 Dose: 1 tab Carbidopa/Levodopa (Sinemet) 1 tab PO TID@0600,1500,2100 [facility] Last Admin: 10/01/15 06:22 Dose: 1 tab Clonazepam (Klonopin) 0.5 mg PO DAILY [facility] Last Admin: 10/01/15 08:18 Dose: 0.5 mg Docusate Sodium (Colace) 100 mg PO BID [facility] Last Admin: 10/01/15 08:17 Dose: 100 mg Donepezil HCl (Aricept) 10 mg PO [facility] Last Admin: 09/30/15 22:00 Dose: 10 mg Fluocinonide (Lidex 0.05% Oint) 1 applic TOP BID [facility] Last Admin: 10/01/15 08:18 Dose: 1 applic Gabapentin (Neurontin) 600 mg PO TID [facility] Last Admin: 10/01/15 08:19 Dose: 600 mg Lactulose (Enulose) 10 gm PO DAILY PRN PRN Reason: Constipation Midodrine (Proamatine) 5 mg PO TID [facility] Last Admin: 10/01/15 08:20 Dose: 5 mg Ondansetron HCl (Zofran Inj) 4 mg IVP Q6 PRN PRN Reason: Nausea/Vomiting Quetiapine Fumarate (Seroquel) 50 mg PO HS PRN PRN Reason: FOR AGITATION Last Admin: 09/30/15 21:59 Dose: 50 mg Tramadol HCl (Ultram) 50 mg PO Q6 PRN PRN Reason: Pain, moderate (4-7) Last Admin: 10/01/15 07:03 Dose: 50 mg - Labs Labs: 09/28/15 05:15 09/28/15 05:15 - Constitutional Appears: Non-toxic, No Acute Distress, Agitated, Other (elderly male anxious , apperas weak and pale) - Head Exam Head Exam: NORMOCEPHALIC - Eye Exam Eye Exam: EOMI, PERRL Pupil Exam: NORMAL ACCOMODATION - ENT Exam ENT Exam: Normal Exam - Neck Exam Neck Exam: Full ROM, Normal Inspection - Respiratory Exam Respiratory Exam: Clear to Ausculation Bilateral, NORMAL BREATHING PATTERN. absent: Rales, Wheezes - Cardiovascular Exam Cardiovascular Exam: REGULAR RHYTHM, +S1, +S2. absent: JVD - GI/Abdominal Exam GI & Abdominal Exam: Soft, Normal Bowel Sounds. absent: Tenderness - Rectal Exam Rectal Exam: Deferred - Extremities Exam Extremities Exam: Normal Capillary Refill, Normal Inspection - Neurological Exam Neurological Exam: Alert, Awake - Psychiatric Exam Psychiatric exam: Agitated, Anxious, Flat Affect - Skin Skin Exam: Dry, Pallor, Warm Assessment and Plan (1) Fall Status: Acute (2) Parkinson disease Status: Chronic (3) Thrombocytopenia Status: Chronic (4) Depression Status: Chronic (5) Hypotension Status: Chronic (6) DVT prophylaxis Status: Acute - Assessment and Plan (Free Text) Assessment: (1)Unstable gait Hx of frequent fall due to gait disturbance due to advanced Parkinson's PT while in hospital for gait training Will need placement to [facility] -patient has signed documents needed, SW following up on Financials for LTC placement (2) Osteoarthritis Right Shoulder pain upon extension and Right knee pain, improved consulted OT for ROM and exercise continue tylenol prn, hot pack and lidoderm patch, in addition to Ultram (3) Parkinson disease, chronic Continue Carbidopa/Levodopa (4) Thrombocytopenia, chronic unclear etiology Stable hold lovenox (5) Depression/Anxiety Continue Seroquel psych consulted, patient is competent and has capacity started low dose Klonopin (6) Hypotension hx of Orthostasis, Shy Drager Syndrome Continue Midodrine (7) Shingles improved Isolation discontinued topical hydrocortisone ID was consulted Pain management as needed (8) DVT prophylaxis Lovenox
[2015-10-02] MEDS: Carbidopa/Levodopa 50/200 CR PO SCH ×3 (09:36→16:28)
[2015-10-02 16:15] LABS: HEMOGLOBIN 12.9 g/dL (12.0-18.0); MEAN CORPUSCULAR HEMOGLOBIN 30.8 pg (27.0-31.0); MEAN CORPUSCULAR HGB CONC 33.2 g/dL (33.0-37.0); RBC 4.2 Mil/uL (4.40-5.90); RED CELL DISTRIBUTION WIDTH 14.6 % (11.5-14.5); WHITE BLOOD COUNT 8.6 K/uL (4.8-10.8)
[2015-10-02 16:34] LABS: ALB/GLOB RATIO 1.2 (1.0-2.1); ALBUMIN 3.8 g/dL (3.5-5.0); ALT/SGPT 17 U/L (21-72); AST/SGOT 12 U/L (17-59); BLOOD UREA NITROGEN 20 mg/dl (9-20); CALCIUM 8.5 mg/dL (8.4-10.2); GFR AFRICAN-AMERICAN > 60; GFR NON-AFRICAN AMERICAN > 60
--- NOTE | 2015-10-02 18:28 | RAD ---
HISTORY: Difficulty swallowing, r/o aspiration COMPARISON: Chest x-ray performed 07/19/15 TECHNIQUE: Chest, one view. FINDINGS: LUNGS: Bibasilar atelectasis/infiltrates. Please note that chest x-ray has limited sensitivity for the detection of pulmonary masses. PLEURA: No significant pleural effusion identified. No definite pneumothorax . CARDIOVASCULAR: Cardiomegaly. Atherosclerotic calcifications of the aorta. OSSEOUS STRUCTURES: Degenerative changes. VISUALIZED UPPER ABDOMEN: Unremarkable. OTHER FINDINGS: None. IMPRESSION: Bibasilar atelectasis/ infiltrates.
[2015-10-03 08:14] LABS: PH,URINE 5.5 (5.0-8.0); URINE APPEARANCE CLEAR (CLEAR); URINE BILIRUBIN SMALL (NEGATIVE); URINE BLOOD NEGATIVE (NEGATIVE); URINE COLOR DARK BROWN (YELLOW); URINE GLUCOSE (UA) NEGATIVE (Normal); URINE LEUKOCYTE ESTERASE NEGATIVE Leu/uL (NEGATIVE); URINE NITRATE NEGATIVE (NEGATIVE); URINE PROTEIN 100 mg/dL (NEGATIVE)
[2015-10-03 08:21] LABS: URINE BACTERIA FEW (NEG); URINE RBC 0 - 2 /hpf (0-2)
[2015-10-03] MEDS: Carbidopa/Levodopa 50/200 CR PO SCH (09:08)
--- NOTE | 2015-10-03 20:11 | CP.PCM.PN ---
Subjective - Date & Time of Evaluation Date of Evaluation: 10/03/15 Time of Evaluation: 22:22 - Subjective Subjective: Seen by Neuro Restarted on Rytary Objective - Vital Signs/Intake and Output Vital Signs (last 24 hours): Temp Pulse Resp BP Pulse Ox 98.4 F 84 20 125/71 97 10/03/15 17:21 10/03/15 17:21 10/03/15 08:32 10/03/15 17:21 10/03/15 17:21 - Medications Medications: Current Medications Baclofen (Baclofen) 10 mg PO HS [facility] Last Admin: 10/02/15 21:00 Dose: 10 mg Carbidopa/Levodopa (Sinemet Cr) 1 tab PO TID [facility] Last Admin: 10/03/15 09:08 Dose: 1 tab Carbidopa/Levodopa (Sinemet) 1 tab PO TID@0600,1500,2100 [facility] Last Admin: 10/03/15 17:08 Dose: 1 tab Clonazepam (Klonopin) 0.5 mg PO DAILY [facility] Last Admin: 10/03/15 09:14 Dose: 0.5 mg Docusate Sodium (Colace) 100 mg PO BID [facility] Last Admin: 10/03/15 09:06 Dose: 100 mg Donepezil HCl (Aricept) 10 mg PO [facility] Last Admin: 10/02/15 21:00 Dose: 10 mg Fluocinonide (Lidex 0.05% Oint) 1 applic TOP BID [facility] Last Admin: 10/03/15 09:16 Dose: 1 applic Gabapentin (Neurontin) 600 mg PO TID [facility] Last Admin: 10/03/15 17:07 Dose: 600 mg Home Med (Patient's Own Medication) 1 unit PO TID [facility] Lactulose (Enulose) 10 gm PO DAILY PRN PRN Reason: Constipation Midodrine (Proamatine) 5 mg PO TID [facility] Last Admin: 10/03/15 17:06 Dose: 5 mg Ondansetron HCl (Zofran Inj) 4 mg IVP Q6 PRN PRN Reason: Nausea/Vomiting Quetiapine Fumarate (Seroquel) 50 mg PO HS PRN PRN Reason: FOR AGITATION Last Admin: 10/03/15 09:07 Dose: 50 mg Tramadol HCl (Ultram) 50 mg PO Q6 PRN PRN Reason: Pain, moderate (4-7) Last Admin: 10/02/15 16:32 Dose: 50 mg - Labs Labs: 10/02/15 16:00 10/02/15 16:00 - Respiratory Exam Respiratory Exam: NORMAL BREATHING PATTERN - Cardiovascular Exam Cardiovascular Exam: REGULAR RHYTHM - GI/Abdominal Exam GI & Abdominal Exam: Normal Bowel Sounds Assessment and Plan - Assessment and Plan (Free Text) Assessment: MSA Parkinson Dx as per neuro R leg pain LBP Hx of HNP Neuro consult venous doppler negative PT R shoulder pain Dislocation Ortho PT Disposition?? Pt is competent Social service and family involved Pt is [place] RLE rash Dermatiis vs cellulitis?? 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
--- NOTE | 2015-10-04 17:03 | RAD ---
HISTORY: Fever COMPARISON: Chest x-ray performed 10/02/15 TECHNIQUE: Chest, one view. FINDINGS: Examination limited by habitus, hypo inflation, and patient obliquity. LUNGS: Bibasilar atelectasis/ infiltrates. Please note that chest x-ray has limited sensitivity for the detection of pulmonary masses. PLEURA: Trace right pleural effusion suspected. No definite pneumothorax . CARDIOVASCULAR: Cardiomegaly. Ectatic aorta containing atherosclerotic calcifications. OSSEOUS STRUCTURES: Degenerative changes. VISUALIZED UPPER ABDOMEN: Unremarkable. OTHER FINDINGS: None. IMPRESSION: Bibasilar atelectasis/infiltrates. Cardiomegaly. Trace right pleural effusion suspected.
[2015-10-04 18:02] LABS: HEMOGLOBIN 12.9 g/dL (12.0-18.0); MEAN CELL VOLUME 93.8 fl (80.0-94.0); MEAN CORPUSCULAR HEMOGLOBIN 30.4 pg (27.0-31.0); MEAN CORPUSCULAR HGB CONC 32.4 g/dL (33.0-37.0); RBC 4.26 Mil/uL (4.40-5.90); RED CELL DISTRIBUTION WIDTH 14.2 % (11.5-14.5); WHITE BLOOD COUNT 8.9 K/uL (4.8-10.8)
[2015-10-04 18:11] LABS: ALB/GLOB RATIO 1.1 (1.0-2.1); ALBUMIN 3.8 g/dL (3.5-5.0); ALT/SGPT 13 U/L (21-72); AST/SGOT 26 U/L (17-59); BLOOD UREA NITROGEN 29 mg/dl (9-20); CALCIUM 8.9 mg/dL (8.4-10.2); GFR AFRICAN-AMERICAN > 60; GFR NON-AFRICAN AMERICAN > 60
--- NOTE | 2015-10-04 18:36 | CP.PCM.PN ---
Subjective - Date & Time of Evaluation Date of Evaluation: 10/04/15 Time of Evaluation: 22:22 - Subjective Subjective: Temp 100.9 Objective - Vital Signs/Intake and Output Vital Signs (last 24 hours): Temp Pulse Resp BP Pulse Ox 100.9 F H 79 18 116/68 97 10/04/15 17:43 10/04/15 16:30 10/04/15 07:46 10/04/15 16:30 10/04/15 16:30 - Medications Medications: Current Medications Acetaminophen (Tylenol 325mg Tab) 650 mg PO Q4 PRN PRN Reason: Fever Last Admin: 10/04/15 17:43 Dose: 650 mg Baclofen (Baclofen) 10 mg PO HS [facility] Last Admin: 10/03/15 21:30 Dose: 10 mg Clonazepam (Klonopin) 0.5 mg PO DAILY [facility] Last Admin: 10/04/15 09:49 Dose: 0.5 mg Docusate Sodium (Colace) 100 mg PO BID [facility] Last Admin: 10/04/15 16:48 Dose: 100 mg Donepezil HCl (Aricept) 10 mg PO HS [facility] Last Admin: 10/03/15 21:30 Dose: 10 mg Fluocinonide (Lidex 0.05% Oint) 1 applic TOP BID [facility] Last Admin: 10/04/15 16:49 Dose: 1 applic Gabapentin (Neurontin) 600 mg PO TID [facility] Last Admin: 10/04/15 16:49 Dose: 600 mg Home Med (Patient's Own Medication) 1 unit PO TID@0500,1300,2100 [facility] Last Admin: 10/04/15 13:06 Dose: 1 unit Levofloxacin/Dextrose (Levaquin 500mg) 100 mls @ 100 mls/hr IVPB DAILY@1700 [facility] Lactulose (Enulose) 10 gm PO DAILY PRN PRN Reason: Constipation Midodrine (Proamatine) 5 mg PO TID [facility] Last Admin: 10/04/15 16:49 Dose: 5 mg Ondansetron HCl (Zofran Inj) 4 mg IVP Q6 PRN PRN Reason: Nausea/Vomiting Quetiapine Fumarate (Seroquel) 50 mg PO HS PRN PRN Reason: FOR AGITATION Last Admin: 10/03/15 09:07 Dose: 50 mg Tramadol HCl (Ultram) 50 mg PO Q6 PRN PRN Reason: Pain, moderate (4-7) Last Admin: 10/04/15 14:29 Dose: 50 mg - Labs Labs: 10/04/15 17:53 10/04/15 17:53 - Respiratory Exam Respiratory Exam: NORMAL BREATHING PATTERN - Cardiovascular Exam Cardiovascular Exam: REGULAR RHYTHM - GI/Abdominal Exam GI & Abdominal Exam: Normal Bowel Sounds Assessment and Plan - Assessment and Plan (Free Text) Assessment: Temp 100.9 cultures CXR IV ABX after cultures reconsult ID MSA Parkinson Dx as per neuro R leg pain LBP Hx of HNP Neuro consult venous doppler negative PT R shoulder pain Dislocation Ortho PT Disposition?? Pt is competent Social service and family involved Pt is [place] WW[place] RLE rash Dermatiis vs cellulitis?? 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
[2015-10-05 03:56] LABS: URINE APPEARANCE SL CLOUDY (CLEAR); URINE BILIRUBIN SMALL (NEGATIVE); URINE BLOOD NEGATIVE (NEGATIVE); URINE COLOR DARK YELLOW (YELLOW); URINE GLUCOSE (UA) NEGATIVE (Normal); URINE LEUKOCYTE ESTERASE NEGATIVE Leu/uL (NEGATIVE); URINE NITRATE NEGATIVE (NEGATIVE); URINE PROTEIN 100 mg/dL (NEGATIVE)
[2015-10-05 04:00] LABS: URINE RBC 0 - 2 /hpf (0-2); URINE WBC 0 - 2 /hpf (0-6)
[2015-10-05 04:01] LABS: URINE BACTERIA MOD (NEG); URINE COARSE GRANULAR CAST SMALL /hpf (0-2)
--- NOTE | 2015-10-05 16:24 | CP.PCM.PN ---
Subjective - Date & Time of Evaluation Date of Evaluation: 10/05/15 Time of Evaluation: 15:00 - Subjective Subjective: altered and feebrile recultured ? atelectasis r/o aspiration doubt NMS will check CT Head Objective - Vital Signs/Intake and Output Vital Signs (last 24 hours): Temp Pulse Resp BP Pulse Ox 97.9 F 64 20 136/69 97 10/05/15 15:52 10/05/15 15:52 10/05/15 15:52 10/05/15 15:52 10/05/15 15:52 - Medications Medications: Current Medications Acetaminophen (Tylenol 325mg Tab) 650 mg PO Q4 PRN PRN Reason: Fever Last Admin: 10/04/15 17:43 Dose: 650 mg Baclofen (Baclofen) 10 mg PO [facility] Last Admin: 10/04/15 21:31 Dose: 10 mg Clonazepam (Klonopin) 0.5 mg PO DAILY [facility] Last Admin: 10/05/15 08:52 Dose: 0.5 mg Docusate Sodium (Colace) 100 mg PO BID [facility] Last Admin: 10/05/15 08:49 Dose: 100 mg Donepezil HCl (Aricept) 10 mg PO [facility] Last Admin: 10/04/15 21:32 Dose: 10 mg Fluocinonide (Lidex 0.05% Oint) 1 applic TOP BID [facility] Last Admin: 10/05/15 08:50 Dose: 1 applic Gabapentin (Neurontin) 600 mg PO TID [facility] Last Admin: 10/05/15 12:19 Dose: 600 mg Home Med (Patient's Own Medication) 1 unit PO TID@0500,1300,2100 [facility] Last Admin: 10/05/15 12:19 Dose: 1 unit Levofloxacin/Dextrose (Levaquin 500mg) 100 mls @ 100 mls/hr IVPB DAILY@1700 [facility] Last Admin: 10/04/15 19:41 Dose: 100 mls/hr Clindamycin Phosphate 600 mg/ (Sodium Chloride) 54 mls @ 54 mls/hr IVPB Q8 [facility] Lactulose (Enulose) 10 gm PO DAILY PRN PRN Reason: Constipation Midodrine (Proamatine) 5 mg PO TID [facility] Last Admin: 10/05/15 12:20 Dose: 5 mg Ondansetron HCl (Zofran Inj) 4 mg IVP Q6 PRN PRN Reason: Nausea/Vomiting Quetiapine Fumarate (Seroquel) 50 mg PO HS PRN PRN Reason: FOR AGITATION Last Admin: 10/03/15 09:07 Dose: 50 mg Tramadol HCl (Ultram) 50 mg PO Q6 PRN PRN Reason: Pain, moderate (4-7) Last Admin: 10/04/15 14:29 Dose: 50 mg - Labs Labs: 10/04/15 17:53 10/04/15 17:53 - Constitutional Appears: Non-toxic, Chronically Ill - Head Exam Head Exam: NORMOCEPHALIC - Eye Exam Eye Exam: absent: Scleral icterus - ENT Exam ENT Exam: Mucous Membranes Dry - Neck Exam Neck Exam: absent: Lymphadenopathy - Respiratory Exam Respiratory Exam: Decreased Breath Sounds, Clear to Ausculation Bilateral - Cardiovascular Exam Cardiovascular Exam: REGULAR RHYTHM, +S1, +S2 - GI/Abdominal Exam GI & Abdominal Exam: Distended, Soft. absent: Tenderness - Rectal Exam Rectal Exam: Deferred - Exam Exam: NORMAL INSPECTION - Extremities Exam Extremities Exam: absent: Calf Tenderness, Pedal Edema, Tenderness - Back Exam Back Exam: absent: CVA tenderness (L), CVA tenderness (R), paraspinal tenderness - Neurological Exam Neurological Exam: Altered. absent: Alert, Awake, Normal Gait, Oriented x3 Neuro motor strength exam: Left Upper Extremity: 2/1, Right Upper Extremity: 2/1 , Left Lower Extremity: 2/1, Right Lower Extremity: 2/1 Assessment and Plan (1) Cellulitis and abscess of leg, except foot Status: Suspected (2) Fever Status: Acute - Assessment and Plan (Free Text) Assessment: add cleocin
--- NOTE | 2015-10-05 16:32 | CP.PCM.PN ---
Subjective - Date & Time of Evaluation Date of Evaluation: 10/05/15 Time of Evaluation: 22:22 - Subjective Subjective: Still lethargic ID note appreciated c/o shoulder pain Objective - Vital Signs/Intake and Output Vital Signs (last 24 hours): Temp Pulse Resp BP Pulse Ox 97.9 F 64 20 136/69 97 10/05/15 15:52 10/05/15 15:52 10/05/15 15:52 10/05/15 15:52 10/05/15 15:52 - Medications Medications: Current Medications Acetaminophen (Tylenol 325mg Tab) 650 mg PO Q4 PRN PRN Reason: Fever Last Admin: 10/04/15 17:43 Dose: 650 mg Baclofen (Baclofen) 10 mg PO [facility] Last Admin: 10/04/15 21:31 Dose: 10 mg Clonazepam (Klonopin) 0.5 mg PO DAILY [facility] Last Admin: 10/05/15 08:52 Dose: 0.5 mg Docusate Sodium (Colace) 100 mg PO BID [facility] Last Admin: 10/05/15 16:29 Dose: 100 mg Donepezil HCl (Aricept) 10 mg PO [facility] Last Admin: 10/04/15 21:32 Dose: 10 mg Fluocinonide (Lidex 0.05% Oint) 1 applic TOP BID [facility] Last Admin: 10/05/15 16:28 Dose: 1 applic Gabapentin (Neurontin) 600 mg PO TID [facility] Last Admin: 10/05/15 16:28 Dose: 600 mg Home Med (Patient's Own Medication) 1 unit PO TID@0500,1300,2100 [facility] Last Admin: 10/05/15 12:19 Dose: 1 unit Levofloxacin/Dextrose (Levaquin 500mg) 100 mls @ 100 mls/hr IVPB DAILY@1700 [facility] Last Admin: 10/05/15 16:27 Dose: 100 mls/hr Clindamycin Phosphate 600 mg/ (Sodium Chloride) 54 mls @ 54 mls/hr IVPB Q8 [facility] Lactulose (Enulose) 10 gm PO DAILY PRN PRN Reason: Constipation Midodrine (Proamatine) 5 mg PO TID [facility] Last Admin: 10/05/15 16:28 Dose: 5 mg Ondansetron HCl (Zofran Inj) 4 mg IVP Q6 PRN PRN Reason: Nausea/Vomiting Quetiapine Fumarate (Seroquel) 50 mg PO HS PRN PRN Reason: FOR AGITATION Last Admin: 10/03/15 09:07 Dose: 50 mg Tramadol HCl (Ultram) 50 mg PO Q6 PRN PRN Reason: Pain, moderate (4-7) Last Admin: 10/04/15 14:29 Dose: 50 mg - Labs Labs: 10/04/15 17:53 10/04/15 17:53 - Respiratory Exam Respiratory Exam: NORMAL BREATHING PATTERN - Cardiovascular Exam Cardiovascular Exam: REGULAR RHYTHM - GI/Abdominal Exam GI & Abdominal Exam: Normal Bowel Sounds Assessment and Plan - Assessment and Plan (Free Text) Assessment: Temp 100.9 lethargic cultures CXR infitrates IV ABX ID imput appreciated CT scan Head L shoulder pain x rays MSA Parkinson Dx as per neuro R leg pain LBP Hx of HNP Neuro consult venous doppler negative PT R shoulder pain Dislocation Ortho PT Disposition?? Pt is competent Social service and family involved Pt is [place] RLE rash Dermatiis vs cellulitis?? 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
--- NOTE | 2015-10-05 17:52 | CT ---
PROCEDURE: CT HEAD WITHOUT CONTRAST. HISTORY: altered mental status, fever COMPARISON: Noncontrast head CT performed 07/02/15 TECHNIQUE: Axial computed tomography images were obtained through the head/brain without intravenous contrast. Radiation dose: Total exam DLP = 863.83 mGy-cm. FINDINGS: HEMORRHAGE: No intracranial hemorrhage. BRAIN: Diffuse atrophy with prominence of the ventricles and sulci noted. No mass effect or edema. Intracranial vascular calcifications. Mild scattered white matter hypodensities, which are nonspecific, but often seen with chronic microvascular ischemic disease. Please note that MRI with diffusion imaging is more sensitive in the detection of acute ischemic event. VENTRICLES: No hydrocephalus. CALVARIUM: Unremarkable. PARANASAL SINUSES: Unremarkable as visualized. No significant inflammatory changes. MASTOID AIR CELLS: Unremarkable as visualized. No inflammatory changes. OTHER FINDINGS: Probable minimal subcutaneous emphysema, left lateral scalp. IMPRESSION: Generalized atrophy. Mild scattered nonspecific white matter changes as above. Probable tiny subcutaneous emphysema, left lateral scalp. Correlate clinically. Remainder of findings as above.
--- NOTE | 2015-10-05 18:12 | RAD ---
PROCEDURE: Radiographs of the Left Shoulder, three views HISTORY: Left shoulder pain COMPARISON: None. FINDINGS: BONES: Degenerative changes. No acute displaced fracture. The distal clavicle and underlying ribs appear intact. JOINTS: No acute dislocation. Acromioclavicular arthropathy and glenohumeral joint space narrowing. SOFT TISSUES: Soft tissues appear unremarkable. No evidence of radiopaque foreign body. Atherosclerotic calcifications of the included portions of aorta. IMPRESSION: Degenerative changes. No acute displaced fracture or dislocation evident. If symptoms persist or if there is continued clinical concern, x-ray follow-up in 7-10 days should be considered.
--- NOTE | 2015-10-06 12:18 | CP.PCM.PN ---
Subjective - Date & Time of Evaluation Date of Evaluation: 10/06/15 Time of Evaluation: 09:30 - Subjective Subjective: AFEB/ CULTURES NEG SO FAR Objective - Vital Signs/Intake and Output Vital Signs (last 24 hours): Temp Pulse Resp BP Pulse Ox 98.1 F 83 20 149/74 95 10/06/15 08:28 10/06/15 08:28 10/06/15 08:28 10/06/15 08:28 10/06/15 08:28 - Medications Medications: Current Medications Acetaminophen (Tylenol 325mg Tab) 650 mg PO Q4 PRN PRN Reason: Fever Last Admin: 10/04/15 17:43 Dose: 650 mg Baclofen (Baclofen) 10 mg PO [facility] Last Admin: 10/05/15 21:41 Dose: 10 mg Clonazepam (Klonopin) 0.5 mg PO DAILY [facility] Last Admin: 10/06/15 08:59 Dose: 0.5 mg Docusate Sodium (Colace) 100 mg PO BID [facility] Last Admin: 10/06/15 08:59 Dose: 100 mg Donepezil HCl (Aricept) 10 mg PO [facility] Last Admin: 10/05/15 21:41 Dose: 10 mg Fluocinonide (Lidex 0.05% Oint) 1 applic TOP BID [facility] Last Admin: 10/06/15 08:59 Dose: 1 applic Gabapentin (Neurontin) 600 mg PO TID [facility] Last Admin: 10/06/15 08:59 Dose: 600 mg Home Med (Patient's Own Medication) 1 unit PO TID@0500,1300,2100 [facility] Last Admin: 10/06/15 05:20 Dose: 1 unit Levofloxacin/Dextrose (Levaquin 500mg) 100 mls @ 100 mls/hr IVPB DAILY@1700 [facility] Last Admin: 10/05/15 16:27 Dose: 100 mls/hr Clindamycin Phosphate 600 mg/ (Sodium Chloride) 54 mls @ 54 mls/hr IVPB Q8 [facility] Last Admin: 10/06/15 08:58 Dose: 54 mls/hr Lactulose (Enulose) 10 gm PO DAILY PRN PRN Reason: Constipation Midodrine (Proamatine) 5 mg PO TID [facility] Last Admin: 10/06/15 09:00 Dose: 5 mg Ondansetron HCl (Zofran Inj) 4 mg IVP Q6 PRN PRN Reason: Nausea/Vomiting Quetiapine Fumarate (Seroquel) 50 mg PO HS PRN PRN Reason: FOR AGITATION Last Admin: 10/03/15 09:07 Dose: 50 mg Tramadol HCl (Ultram) 50 mg PO Q6 PRN PRN Reason: Pain, moderate (4-7) Last Admin: 10/04/15 14:29 Dose: 50 mg - Labs Labs: 10/04/15 17:53 10/04/15 17:53 - Constitutional Appears: Non-toxic, Chronically Ill - Head Exam Head Exam: NORMOCEPHALIC - Eye Exam Eye Exam: absent: Scleral icterus - ENT Exam ENT Exam: Mucous Membranes Dry - Neck Exam Neck Exam: absent: Lymphadenopathy - Respiratory Exam Respiratory Exam: Decreased Breath Sounds, Rhonchi - Cardiovascular Exam Cardiovascular Exam: REGULAR RHYTHM, +S1, +S2 - GI/Abdominal Exam GI & Abdominal Exam: Distended, Soft. absent: Tenderness - Rectal Exam Rectal Exam: Deferred - Exam Exam: NORMAL INSPECTION - Back Exam Back Exam: absent: CVA tenderness (L), CVA tenderness (R) - Neurological Exam Neurological Exam: Altered - Psychiatric Exam Psychiatric exam: Depressed - Skin Skin Exam: Dry Assessment and Plan (1) Cellulitis and abscess of leg, except foot Status: Suspected (2) Fever Status: Acute
--- NOTE | 2015-10-06 16:33 | CP.PCM.PN ---
Subjective - Date & Time of Evaluation Date of Evaluation: 10/06/15 Time of Evaluation: 22:22 - Subjective Subjective: Afebrile CT scan head neg Objective - Vital Signs/Intake and Output Vital Signs (last 24 hours): Temp Pulse Resp BP Pulse Ox 98.1 F 83 20 149/74 95 10/06/15 08:28 10/06/15 08:28 10/06/15 08:28 10/06/15 08:28 10/06/15 08:28 - Medications Medications: Current Medications Acetaminophen (Tylenol 325mg Tab) 650 mg PO Q4 PRN PRN Reason: Fever Last Admin: 10/04/15 17:43 Dose: 650 mg Baclofen (Baclofen) 10 mg PO [facility] Last Admin: 10/05/15 21:41 Dose: 10 mg Clonazepam (Klonopin) 0.5 mg PO DAILY [facility] Last Admin: 10/06/15 08:59 Dose: 0.5 mg Docusate Sodium (Colace) 100 mg PO BID [facility] Last Admin: 10/06/15 08:59 Dose: 100 mg Donepezil HCl (Aricept) 10 mg PO [facility] Last Admin: 10/05/15 21:41 Dose: 10 mg Fluocinonide (Lidex 0.05% Oint) 1 applic TOP BID [facility] Last Admin: 10/06/15 08:59 Dose: 1 applic Gabapentin (Neurontin) 600 mg PO TID [facility] Last Admin: 10/06/15 13:00 Dose: 600 mg Home Med (Patient's Own Medication) 1 unit PO TID@0500,1300,2100 [facility] Last Admin: 10/06/15 13:00 Dose: 1 unit Levofloxacin/Dextrose (Levaquin 500mg) 100 mls @ 100 mls/hr IVPB DAILY@1700 [facility] Last Admin: 10/05/15 16:27 Dose: 100 mls/hr Clindamycin Phosphate 600 mg/ (Sodium Chloride) 54 mls @ 54 mls/hr IVPB Q8 [facility] Last Admin: 10/06/15 08:58 Dose: 54 mls/hr Lactulose (Enulose) 10 gm PO DAILY PRN PRN Reason: Constipation Midodrine (Proamatine) 5 mg PO TID [facility] Last Admin: 10/06/15 13:00 Dose: 5 mg Ondansetron HCl (Zofran Inj) 4 mg IVP Q6 PRN PRN Reason: Nausea/Vomiting Quetiapine Fumarate (Seroquel) 50 mg PO HS PRN PRN Reason: FOR AGITATION Last Admin: 10/03/15 09:07 Dose: 50 mg Tramadol HCl (Ultram) 50 mg PO Q6 PRN PRN Reason: Pain, moderate (4-7) Last Admin: 10/04/15 14:29 Dose: 50 mg - Labs Labs: 10/04/15 17:53 10/04/15 17:53 - Respiratory Exam Respiratory Exam: NORMAL BREATHING PATTERN - Cardiovascular Exam Cardiovascular Exam: REGULAR RHYTHM - GI/Abdominal Exam GI & Abdominal Exam: Normal Bowel Sounds Assessment and Plan - Assessment and Plan (Free Text) Assessment: Temp 100.9 lethargic cultures neg CXR infitrates ?? - SOB IV ABX ID imput appreciated CT scan Head neg L shoulder pain x rays neg MSA Parkinson Dx as per neuro R leg pain LBP Hx of HNP Neuro consult venous doppler negative PT R shoulder pain Dislocation Ortho PT Disposition?? Pt is competent Social service and family involved Pt is [place] WW[place] RLE rash Dermatiis vs cellulitis?? 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
--- NOTE | 2015-10-07 12:46 | CP.PCM.PN ---
Subjective - Date & Time of Evaluation Date of Evaluation: 10/07/15 Time of Evaluation: 10:00 - Subjective Subjective: lethargic but afebrile no fever or chest pains Objective - Vital Signs/Intake and Output Vital Signs (last 24 hours): Temp Pulse Resp BP Pulse Ox 97.7 F 74 20 129/80 95 10/07/15 08:58 10/07/15 08:58 10/07/15 08:58 10/07/15 08:58 10/07/15 08:58 - Medications Medications: Current Medications Acetaminophen (Tylenol 325mg Tab) 650 mg PO Q4 PRN PRN Reason: Fever Last Admin: 10/04/15 17:43 Dose: 650 mg Baclofen (Baclofen) 10 mg PO [facility] Last Admin: 10/06/15 22:24 Dose: 10 mg Clonazepam (Klonopin) 0.5 mg PO DAILY [facility] Last Admin: 10/07/15 08:42 Dose: 0.5 mg Docusate Sodium (Colace) 100 mg PO BID [facility] Last Admin: 10/07/15 08:40 Dose: 100 mg Donepezil HCl (Aricept) 10 mg PO [facility] Last Admin: 10/06/15 22:24 Dose: 10 mg Fluocinonide (Lidex 0.05% Oint) 1 applic TOP BID [facility] Last Admin: 10/07/15 08:42 Dose: 1 applic Gabapentin (Neurontin) 600 mg PO TID [facility] Last Admin: 10/07/15 08:42 Dose: 600 mg Home Med (Patient's Own Medication) 1 unit PO TID@0500,1300,2100 [facility] Last Admin: 10/07/15 04:58 Dose: 1 unit Levofloxacin/Dextrose (Levaquin 500mg) 100 mls @ 100 mls/hr IVPB DAILY@1700 [facility] Last Admin: 10/06/15 16:56 Dose: 100 mls/hr Clindamycin Phosphate 600 mg/ (Sodium Chloride) 54 mls @ 54 mls/hr IVPB Q8 [facility] Last Admin: 10/07/15 08:38 Dose: 54 mls/hr Lactulose (Enulose) 10 gm PO DAILY PRN PRN Reason: Constipation Midodrine (Proamatine) 5 mg PO TID [facility] Last Admin: 10/07/15 08:42 Dose: 5 mg Ondansetron HCl (Zofran Inj) 4 mg IVP Q6 PRN PRN Reason: Nausea/Vomiting Quetiapine Fumarate (Seroquel) 50 mg PO HS PRN PRN Reason: FOR AGITATION Last Admin: 10/03/15 09:07 Dose: 50 mg Tramadol HCl (Ultram) 50 mg PO Q6 PRN PRN Reason: Pain, moderate (4-7) Last Admin: 10/06/15 17:00 Dose: 50 mg - Labs Labs: 10/04/15 17:53 10/04/15 17:53 - Constitutional Appears: Non-toxic, Confused, Chronically Ill - Head Exam Head Exam: ATRAUMATIC, NORMAL INSPECTION, NORMOCEPHALIC - Eye Exam Eye Exam: absent: Scleral icterus Pupil Exam: NORMAL ACCOMODATION - ENT Exam ENT Exam: Normal Exam - Respiratory Exam Respiratory Exam: Decreased Breath Sounds, Rhonchi - Cardiovascular Exam Cardiovascular Exam: REGULAR RHYTHM, +S1, +S2 - GI/Abdominal Exam GI & Abdominal Exam: Distended, Soft. absent: Tenderness - Rectal Exam Rectal Exam: Deferred - Exam Exam: NORMAL INSPECTION - Extremities Exam Extremities Exam: absent: Pedal Edema - Back Exam Back Exam: absent: CVA tenderness (L), CVA tenderness (R) - Neurological Exam Neurological Exam: Alert, Altered, Awake. absent: Oriented x3 - Psychiatric Exam Psychiatric exam: Depressed - Skin Skin Exam: Dry Assessment and Plan (1) Cellulitis and abscess of leg, except foot Status: Suspected (2) Fever Status: Acute
--- NOTE | 2015-10-07 17:45 | CP.PCM.PN ---
Subjective - Date & Time of Evaluation Date of Evaluation: 10/07/15 Time of Evaluation: 10:00 - Subjective Subjective: pt lethargic, somnolent. vitals stable, afebrile. VSS. NAD. Objective - Vital Signs/Intake and Output Vital Signs (last 24 hours): Temp Pulse Resp BP Pulse Ox 98.1 F 85 20 142/78 96 10/07/15 16:56 10/07/15 16:56 10/07/15 16:56 10/07/15 16:56 10/07/15 16:56 - Medications Medications: Current Medications Acetaminophen (Tylenol 325mg Tab) 650 mg PO Q4 PRN PRN Reason: Fever Last Admin: 10/04/15 17:43 Dose: 650 mg Clonazepam (Klonopin) 0.5 mg PO DAILY [facility] Last Admin: 10/07/15 08:42 Dose: 0.5 mg Docusate Sodium (Colace) 100 mg PO BID [facility] Last Admin: 10/07/15 16:12 Dose: 100 mg Fluocinonide (Lidex 0.05% Oint) 1 applic TOP BID [facility] Last Admin: 10/07/15 16:12 Dose: 1 applic Gabapentin (Neurontin) 600 mg PO TID [facility] Last Admin: 10/07/15 16:13 Dose: 600 mg Home Med (Patient's Own Medication) 1 unit PO TID@0500,1300,2100 [facility] Last Admin: 10/07/15 12:47 Dose: 1 unit Levofloxacin/Dextrose (Levaquin 500mg) 100 mls @ 100 mls/hr IVPB DAILY@1700 [facility] Last Admin: 10/07/15 16:09 Dose: 100 mls/hr Clindamycin Phosphate 600 mg/ (Sodium Chloride) 54 mls @ 54 mls/hr IVPB Q8 [facility] Last Admin: 10/07/15 16:10 Dose: 54 mls/hr Ceftriaxone Sodium 1 gm/ (Sodium Chloride) 100 mls @ 100 mls/hr IVPB DAILY [facility] Lactulose (Enulose) 10 gm PO DAILY PRN PRN Reason: Constipation Midodrine (Proamatine) 5 mg PO TID [facility] Last Admin: 10/07/15 16:13 Dose: 5 mg Ondansetron HCl (Zofran Inj) 4 mg IVP Q6 PRN PRN Reason: Nausea/Vomiting Tramadol HCl (Ultram) 50 mg PO Q6 PRN PRN Reason: Pain, moderate (4-7) Last Admin: 10/06/15 17:00 Dose: 50 mg - Labs Labs: 10/04/15 17:53 10/04/15 17:53 - Constitutional Appears: Non-toxic, No Acute Distress - Head Exam Head Exam: ATRAUMATIC, NORMOCEPHALIC - Eye Exam Eye Exam: EOMI, Normal appearance, PERRL - ENT Exam ENT Exam: Mucous Membranes Dry, Normal Oropharynx - Neck Exam Neck Exam: Normal Inspection. absent: Lymphadenopathy - Respiratory Exam Respiratory Exam: Clear to Ausculation Bilateral, NORMAL BREATHING PATTERN. absent: Rales, Rhonchi, Wheezes - Cardiovascular Exam Cardiovascular Exam: RRR, +S1, +S2. absent: Gallop, Rubs - GI/Abdominal Exam GI & Abdominal Exam: Soft, Normal Bowel Sounds. absent: Tenderness - Extremities Exam Extremities Exam: Normal Capillary Refill. absent: Joint Swelling - Back Exam Back Exam: absent: CVA tenderness (L), CVA tenderness (R) - Neurological Exam Neurological Exam: Alert, Altered (lethargic). absent: Oriented x3 - Psychiatric Exam Psychiatric exam: Normal Affect, Normal Mood - Skin Skin Exam: Dry, Warm Assessment and Plan (1) UTI (urinary tract infection) Assessment & Plan: cultures +proteus, start ceftriaxone Status: Acute (2) Cellulitis Assessment & Plan: continue clinda per ID consult, appreciated and followed Status: Acute (3) Lethargic Assessment & Plan: likely 2/[address] head negative has been afebrile cbc PENDING, last CBC few days ago, no WBC. Status: Acute (4) Fall Status: Acute (5) Atrial fibrillation Status: Chronic (6) Parkinson disease Status: Chronic (7) Orthostasis Status: Chronic (8) Thrombocytopenia Status: Chronic (9) Depression Status: Chronic (10) DVT prophylaxis Status: Acute - Assessment and Plan (Free Text) Plan: otherwise continue current management as ordered.
[2015-10-08 06:27] LABS: BASO # 0.1 K/uL (0.0-0.2); BASO % 0.7 % (0.0-2.0); EOS # 0.5 K/uL (0.0-0.7); EOS % 5.8 % (0.0-4.0); HEMOGLOBIN 13.1 g/dL (12.0-18.0); LYMPH # 1.1 K/uL (1.0-4.3); LYMPH % 13.6 % (20.0-40.0); MEAN CELL VOLUME 93.1 fl (80.0-94.0); MEAN CORPUSCULAR HEMOGLOBIN 31.3 pg (27.0-31.0); MEAN CORPUSCULAR HGB CONC 33.6 g/dL (33.0-37.0); MEAN PLATELET VOLUME 8.5 fl (7.2-11.7); MONO # 0.6 K/uL (0.0-0.8); MONO % 7.7 % (0.0-10.0); NEUT # 5.9 K/uL (1.8-7.0); NEUT % 72.2 % (50.0-75.0); NRBC % 0.1 % (0.0-0.0); RBC 4.17 Mil/uL (4.40-5.90); RED CELL DISTRIBUTION WIDTH 13.8 % (11.5-14.5); WHITE BLOOD COUNT 8.1 K/uL (4.8-10.8)
[2015-10-08 06:41] LABS: BLOOD UREA NITROGEN 37 mg/dl (9-20); CALCIUM 9.1 mg/dL (8.4-10.2); GFR AFRICAN-AMERICAN > 60; GFR NON-AFRICAN AMERICAN > 60
--- NOTE | 2015-10-08 17:00 | CP.PCM.PN ---
Subjective - Date & Time of Evaluation Date of Evaluation: 10/08/15 Time of Evaluation: 20:45 - Subjective Subjective: Patient lying in bed, no acute issues Objective - Vital Signs/Intake and Output Vital Signs (last 24 hours): Temp Pulse Resp BP Pulse Ox 97.9 F 86 20 131/77 98 10/08/15 16:46 10/08/15 16:46 10/08/15 16:46 10/08/15 16:46 10/08/15 16:46 - Medications Medications: Current Medications Acetaminophen (Tylenol 325mg Tab) 650 mg PO Q4 PRN PRN Reason: Fever Last Admin: 10/04/15 17:43 Dose: 650 mg Clonazepam (Klonopin) 0.5 mg PO DAILY [facility] Last Admin: 10/08/15 09:29 Dose: 0.5 mg Docusate Sodium (Colace) 100 mg PO BID [facility] Last Admin: 10/08/15 16:10 Dose: 100 mg Fluocinonide (Lidex 0.05% Oint) 1 applic TOP BID [facility] Last Admin: 10/08/15 16:09 Dose: 1 applic Gabapentin (Neurontin) 600 mg PO TID [facility] Last Admin: 10/08/15 16:10 Dose: 600 mg Home Med (Patient's Own Medication) 1 unit PO TID@0500,1300,2100 [facility] Last Admin: 10/08/15 12:38 Dose: 1 unit Levofloxacin/Dextrose (Levaquin 500mg) 100 mls @ 100 mls/hr IVPB DAILY@1700 [facility] Last Admin: 10/08/15 16:09 Dose: 100 mls/hr Clindamycin Phosphate 600 mg/ (Sodium Chloride) 54 mls @ 54 mls/hr IVPB Q8 [facility] Last Admin: 10/08/15 16:09 Dose: 54 mls/hr Ceftriaxone Sodium 1 gm/ (Sodium Chloride) 100 mls @ 100 mls/hr IVPB DAILY [facility] Last Admin: 10/08/15 10:54 Dose: 100 mls/hr Lactulose (Enulose) 10 gm PO DAILY PRN PRN Reason: Constipation Midodrine (Proamatine) 5 mg PO TID [facility] Last Admin: 10/08/15 16:10 Dose: 5 mg Ondansetron HCl (Zofran Inj) 4 mg IVP Q6 PRN PRN Reason: Nausea/Vomiting Tramadol HCl (Ultram) 50 mg PO Q6 PRN PRN Reason: Pain, moderate (4-7) Last Admin: 10/06/15 17:00 Dose: 50 mg - Labs Labs: 10/08/15 05:15 10/08/15 05:15 - Constitutional Appears: Non-toxic, No Acute Distress - Head Exam Head Exam: ATRAUMATIC, NORMAL INSPECTION, NORMOCEPHALIC - ENT Exam ENT Exam: Mucous Membranes Moist, Normal Exam - Respiratory Exam Respiratory Exam: Clear to Ausculation Bilateral, NORMAL BREATHING PATTERN - Cardiovascular Exam Cardiovascular Exam: REGULAR RHYTHM, RRR, +S1, +S2 - GI/Abdominal Exam GI & Abdominal Exam: Soft, Normal Bowel Sounds - Neurological Exam Neurological Exam: Alert, Awake Assessment and Plan (1) Fall Status: Acute (2) Parkinson disease Status: Chronic (3) Thrombocytopenia Status: Chronic (4) Depression Status: Chronic (5) Hypotension Status: Chronic (6) DVT prophylaxis Status: Acute - Assessment and Plan (Free Text) Assessment: (1) Fall Hx of frequent fall due to gait disturbance due to advanced Parkinson's PT while in hospital for gait training Will need placement to [facility] -patient has signed documents needed, SW following. Await plan for DC when Acceptance of financial documents (2) Osteoarthritis Right Shoulder pain upon extension and Right knee pain, improved consulted OT for ROM and exercise continue tylenol prn, hot pack and lidoderm patch, in addition to Ultram (3) Parkinson disease, chronic Continue Carbidopa/Levodopa (4) Thrombocytopenia, chronic unclear etiology Stable (5) Depression Continue Seroquel psych consulted, patient is competent and has capacity (6) Hypotension hx of Orthostasis, Shy Drager Syndrome Continue Midodrine (7) Shingles improved Isolation discontinued topical hydrocortisone ID was consulted Pain management as needed (8) DVT prophylaxis Lovenox
--- NOTE | 2015-10-09 11:12 | CP.PCM.PN ---
Subjective - Date & Time of Evaluation Date of Evaluation: 10/09/15 Time of Evaluation: 11:00 - Subjective Subjective: LETHARGIC nad cONT IV LEVOFLOXACIN Objective - Vital Signs/Intake and Output Vital Signs (last 24 hours): Temp Pulse Resp BP Pulse Ox 97.5 F L 83 20 134/85 99 10/09/15 08:15 10/09/15 08:15 10/09/15 08:15 10/09/15 08:15 10/09/15 08:15 - Medications Medications: Current Medications Acetaminophen (Tylenol 325mg Tab) 650 mg PO Q4 PRN PRN Reason: Fever Last Admin: 10/04/15 17:43 Dose: 650 mg Clonazepam (Klonopin) 0.5 mg PO DAILY [facility] Last Admin: 10/09/15 09:15 Dose: 0.5 mg Docusate Sodium (Colace) 100 mg PO BID [facility] Last Admin: 10/09/15 09:12 Dose: 100 mg Fluocinonide (Lidex 0.05% Oint) 1 applic TOP BID [facility] Last Admin: 10/09/15 09:13 Dose: 1 applic Gabapentin (Neurontin) 600 mg PO TID [facility] Last Admin: 10/09/15 09:12 Dose: 600 mg Home Med (Patient's Own Medication) 1 unit PO TID@0500,1300,2100 [facility] Last Admin: 10/09/15 05:00 Dose: 1 unit Levofloxacin/Dextrose (Levaquin 500mg) 100 mls @ 100 mls/hr IVPB DAILY@1700 [facility] Last Admin: 10/08/15 16:09 Dose: 100 mls/hr Ceftriaxone Sodium 1 gm/ (Sodium Chloride) 100 mls @ 100 mls/hr IVPB DAILY [facility] Last Admin: 10/09/15 09:11 Dose: 100 mls/hr Lactulose (Enulose) 10 gm PO DAILY PRN PRN Reason: Constipation Midodrine (Proamatine) 5 mg PO TID [facility] Last Admin: 10/09/15 09:12 Dose: 5 mg Ondansetron HCl (Zofran Inj) 4 mg IVP Q6 PRN PRN Reason: Nausea/Vomiting Tramadol HCl (Ultram) 50 mg PO Q6 PRN PRN Reason: Pain, moderate (4-7) Last Admin: 10/06/15 17:00 Dose: 50 mg - Labs Labs: 10/08/15 05:15 10/08/15 05:15 - Constitutional Appears: Non-toxic, Confused, Chronically Ill - Head Exam Head Exam: NORMOCEPHALIC - Eye Exam Eye Exam: absent: Scleral icterus - ENT Exam ENT Exam: Mucous Membranes Dry - Neck Exam Neck Exam: Normal Inspection - Respiratory Exam Respiratory Exam: Decreased Breath Sounds, Clear to Ausculation Bilateral - Cardiovascular Exam Cardiovascular Exam: REGULAR RHYTHM, +S1, +S2 - GI/Abdominal Exam GI & Abdominal Exam: Distended, Soft. absent: Tenderness - Rectal Exam Rectal Exam: Deferred - Exam Exam: NORMAL INSPECTION - Extremities Exam Extremities Exam: absent: Calf Tenderness, Pedal Edema - Back Exam Back Exam: absent: CVA tenderness (L), CVA tenderness (R), paraspinal tenderness - Neurological Exam Neurological Exam: Alert, Awake, Oriented x3 Neuro motor strength exam: Left Upper Extremity: 3, Right Upper Extremity: 3, Left Lower Extremity: 3, Right Lower Extremity: 3 Assessment and Plan (1) Cellulitis and abscess of leg, except foot Status: Suspected (2) Fever Status: Acute
--- NOTE | 2015-10-09 20:25 | CP.PCM.PN ---
Subjective - Date & Time of Evaluation Date of Evaluation: 10/09/15 Time of Evaluation: 22:22 - Subjective Subjective: No change in status Objective - Vital Signs/Intake and Output Vital Signs (last 24 hours): Temp Pulse Resp BP Pulse Ox 97.7 F 70 20 120/73 99 10/09/15 16:14 10/09/15 16:14 10/09/15 16:14 10/09/15 16:14 10/09/15 16:14 - Medications Medications: Current Medications Acetaminophen (Tylenol 325mg Tab) 650 mg PO Q4 PRN PRN Reason: Fever Last Admin: 10/04/15 17:43 Dose: 650 mg Clonazepam (Klonopin) 0.5 mg PO DAILY [facility] Last Admin: 10/09/15 09:15 Dose: 0.5 mg Docusate Sodium (Colace) 100 mg PO BID [facility] Last Admin: 10/09/15 17:14 Dose: 100 mg Fluocinonide (Lidex 0.05% Oint) 1 applic TOP BID [facility] Last Admin: 10/09/15 17:19 Dose: 1 applic Gabapentin (Neurontin) 600 mg PO TID [facility] Last Admin: 10/09/15 17:13 Dose: 600 mg Home Med (Patient's Own Medication) 1 unit PO TID@0500,1300,2100 [facility] Last Admin: 10/09/15 12:41 Dose: 1 unit Levofloxacin/Dextrose (Levaquin 500mg) 100 mls @ 100 mls/hr IVPB DAILY@1700 [facility] Last Admin: 10/09/15 17:18 Dose: 100 mls/hr Ceftriaxone Sodium 1 gm/ (Sodium Chloride) 100 mls @ 100 mls/hr IVPB DAILY [facility] Last Admin: 10/09/15 09:11 Dose: 100 mls/hr Lactulose (Enulose) 10 gm PO DAILY PRN PRN Reason: Constipation Midodrine (Proamatine) 5 mg PO TID [facility] Last Admin: 10/09/15 17:16 Dose: 5 mg Ondansetron HCl (Zofran Inj) 4 mg IVP Q6 PRN PRN Reason: Nausea/Vomiting Tramadol HCl (Ultram) 50 mg PO Q6 PRN PRN Reason: Pain, moderate (4-7) Last Admin: 10/06/15 17:00 Dose: 50 mg - Labs Labs: 10/08/15 05:15 10/08/15 05:15 - Respiratory Exam Respiratory Exam: NORMAL BREATHING PATTERN - Cardiovascular Exam Cardiovascular Exam: REGULAR RHYTHM - GI/Abdominal Exam GI & Abdominal Exam: Normal Bowel Sounds Assessment and Plan - Assessment and Plan (Free Text) Assessment: Temp 100.9 last week lethargic Urine culture Proteus CXR infitrates ?? no SOB IV ABX Levaquin Rocephin?? ID imput appreciated CT scan Head neg Reconsult neurology pending L shoulder pain x rays neg MSA Parkinson Dx as per neuro R leg pain LBP Hx of HNP Neuro consult venous doppler negative PT R shoulder pain Dislocation Ortho PT Disposition?? Pt is competent Social service and family involved Pt is [place] RLE rash Dermatiis vs cellulitis?? 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
--- NOTE | 2015-10-10 20:09 | CP.PCM.PN ---
Subjective - Date & Time of Evaluation Date of Evaluation: 10/10/15 Time of Evaluation: 22:22 - Subjective Subjective: resting in bed Objective - Vital Signs/Intake and Output Vital Signs (last 24 hours): Temp Pulse Resp BP Pulse Ox 97.9 F 78 20 134/67 98 10/10/15 16:39 10/10/15 16:39 10/10/15 16:39 10/10/15 16:39 10/10/15 16:39 - Medications Medications: Current Medications Acetaminophen (Tylenol 325mg Tab) 650 mg PO Q4 PRN PRN Reason: Fever Last Admin: 10/04/15 17:43 Dose: 650 mg Clonazepam (Klonopin) 0.5 mg PO DAILY [facility] Last Admin: 10/10/15 12:54 Dose: Not Given Docusate Sodium (Colace) 100 mg PO BID [facility] Last Admin: 10/10/15 17:19 Dose: Not Given Fluocinonide (Lidex 0.05% Oint) 1 applic TOP BID [facility] Last Admin: 10/10/15 17:17 Dose: 1 applic Gabapentin (Neurontin) 600 mg PO TID [facility] Last Admin: 10/10/15 17:18 Dose: 600 mg Home Med (Patient's Own Medication) 1 unit PO TID@0500,1300,2100 [facility] Last Admin: 10/10/15 12:55 Dose: 1 unit Levofloxacin/Dextrose (Levaquin 500mg) 100 mls @ 100 mls/hr IVPB DAILY@1700 [facility] Last Admin: 10/10/15 17:12 Dose: 100 mls/hr Ceftriaxone Sodium 1 gm/ (Sodium Chloride) 100 mls @ 100 mls/hr IVPB DAILY [facility] Last Admin: 10/10/15 09:11 Dose: 100 mls/hr Lactulose (Enulose) 10 gm PO DAILY PRN PRN Reason: Constipation Midodrine (Proamatine) 5 mg PO TID [facility] Last Admin: 10/10/15 17:17 Dose: 5 mg Ondansetron HCl (Zofran Inj) 4 mg IVP Q6 PRN PRN Reason: Nausea/Vomiting Tramadol HCl (Ultram) 50 mg PO Q6 PRN PRN Reason: Pain, moderate (4-7) Last Admin: 10/06/15 17:00 Dose: 50 mg - Labs Labs: 10/08/15 05:15 10/08/15 05:15 - Respiratory Exam Respiratory Exam: NORMAL BREATHING PATTERN - Cardiovascular Exam Cardiovascular Exam: REGULAR RHYTHM - GI/Abdominal Exam GI & Abdominal Exam: Normal Bowel Sounds Assessment and Plan - Assessment and Plan (Free Text) Assessment: Temp 100.9 last week lethargic Urine culture Proteus CXR infitrates ?? no SOB IV ABX Levaquin Rocephin?? ID imput appreciated CT scan Head neg Reconsult neurology pending L shoulder pain x rays neg MSA Parkinson Dx as per neuro R leg pain LBP Hx of HNP Neuro consult venous doppler negative PT R shoulder pain Dislocation Ortho PT Disposition?? Pt is competent Social service and family involved Pt is [place] RLE rash Dermatiis vs cellulitis?? 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
--- NOTE | 2015-10-11 13:33 | CP.PCM.PN ---
Subjective - Date & Time of Evaluation Date of Evaluation: 10/11/15 Time of Evaluation: 13:00 - Subjective Subjective: NO FEVER OR LEUKOCYTOSIS RESTING IN BED Objective - Vital Signs/Intake and Output Vital Signs (last 24 hours): Temp Pulse Resp BP Pulse Ox 97.5 F L 78 20 124/62 99 10/11/15 08:44 10/11/15 08:44 10/11/15 08:44 10/11/15 08:44 10/11/15 08:44 - Medications Medications: Current Medications Acetaminophen (Tylenol 325mg Tab) 650 mg PO Q4 PRN PRN Reason: Fever Last Admin: 10/04/15 17:43 Dose: 650 mg Clonazepam (Klonopin) 0.5 mg PO DAILY [facility] Last Admin: 10/11/15 10:06 Dose: 0.5 mg Docusate Sodium (Colace) 100 mg PO BID [facility] Last Admin: 10/11/15 09:59 Dose: Not Given Fluocinonide (Lidex 0.05% Oint) 1 applic TOP BID [facility] Last Admin: 10/11/15 10:03 Dose: 1 applic Gabapentin (Neurontin) 600 mg PO TID [facility] Last Admin: 10/11/15 10:00 Dose: 600 mg Home Med (Patient's Own Medication) 1 unit PO TID@0500,1300,2100 [facility] Last Admin: 10/11/15 05:32 Dose: 1 unit Levofloxacin/Dextrose (Levaquin 500mg) 100 mls @ 100 mls/hr IVPB DAILY@1700 [facility] Last Admin: 10/10/15 17:12 Dose: 100 mls/hr Ceftriaxone Sodium 1 gm/ (Sodium Chloride) 100 mls @ 100 mls/hr IVPB DAILY [facility] Last Admin: 10/11/15 10:01 Dose: 100 mls/hr Lactulose (Enulose) 10 gm PO DAILY PRN PRN Reason: Constipation Midodrine (Proamatine) 5 mg PO TID [facility] Last Admin: 10/11/15 10:00 Dose: 5 mg Ondansetron HCl (Zofran Inj) 4 mg IVP Q6 PRN PRN Reason: Nausea/Vomiting Tramadol HCl (Ultram) 50 mg PO Q6 PRN PRN Reason: Pain, moderate (4-7) Last Admin: 10/11/15 07:30 Dose: 50 mg - Labs Labs: 10/08/15 05:15 10/08/15 05:15 - Constitutional Appears: Non-toxic, Chronically Ill - Head Exam Head Exam: NORMOCEPHALIC - Eye Exam Eye Exam: absent: Nystagmus - ENT Exam ENT Exam: Mucous Membranes Dry, Normal External Ear Exam, Normal Oropharynx - Neck Exam Neck Exam: absent: Lymphadenopathy, Thyromegaly - Respiratory Exam Respiratory Exam: Decreased Breath Sounds, Clear to Ausculation Bilateral - Cardiovascular Exam Cardiovascular Exam: REGULAR RHYTHM, +S1, +S2 - GI/Abdominal Exam GI & Abdominal Exam: Distended, Soft. absent: Tenderness - Rectal Exam Rectal Exam: Deferred - Exam Exam: NORMAL INSPECTION - Extremities Exam Extremities Exam: absent: Calf Tenderness, Pedal Edema - Back Exam Back Exam: absent: CVA tenderness (L), CVA tenderness (R), paraspinal tenderness - Neurological Exam Neurological Exam: Alert, Awake, Oriented x3 Assessment and Plan (1) Cellulitis and abscess of leg, except foot Status: Suspected (2) Fever Status: Acute
--- NOTE | 2015-10-11 18:43 | CP.PCM.PN ---
Subjective - Date & Time of Evaluation Date of Evaluation: 10/11/15 Time of Evaluation: 22:22 - Subjective Subjective: More alert today Objective - Vital Signs/Intake and Output Vital Signs (last 24 hours): Temp Pulse Resp BP Pulse Ox 97.5 F L 78 20 124/62 99 10/11/15 08:44 10/11/15 08:44 10/11/15 08:44 10/11/15 08:44 10/11/15 08:44 - Medications Medications: Current Medications Acetaminophen (Tylenol 325mg Tab) 650 mg PO Q4 PRN PRN Reason: Fever Last Admin: 10/04/15 17:43 Dose: 650 mg Clonazepam (Klonopin) 0.5 mg PO DAILY [facility] Last Admin: 10/11/15 10:06 Dose: 0.5 mg Docusate Sodium (Colace) 100 mg PO BID [facility] Last Admin: 10/11/15 17:45 Dose: Not Given Fluocinonide (Lidex 0.05% Oint) 1 applic TOP BID [facility] Last Admin: 10/11/15 17:45 Dose: 1 applic Gabapentin (Neurontin) 600 mg PO TID [facility] Last Admin: 10/11/15 17:45 Dose: 600 mg Home Med (Patient's Own Medication) 1 unit PO TID@0500,1300,2100 [facility] Last Admin: 10/11/15 14:45 Dose: 1 unit Levofloxacin/Dextrose (Levaquin 500mg) 100 mls @ 100 mls/hr IVPB DAILY@1700 [facility] Last Admin: 10/11/15 17:57 Dose: 100 mls/hr Ceftriaxone Sodium 1 gm/ (Sodium Chloride) 100 mls @ 100 mls/hr IVPB DAILY [facility] Last Admin: 10/11/15 10:01 Dose: 100 mls/hr Lactulose (Enulose) 10 gm PO DAILY PRN PRN Reason: Constipation Midodrine (Proamatine) 5 mg PO TID [facility] Last Admin: 10/11/15 17:46 Dose: 5 mg Ondansetron HCl (Zofran Inj) 4 mg IVP Q6 PRN PRN Reason: Nausea/Vomiting Tramadol HCl (Ultram) 50 mg PO Q6 PRN PRN Reason: Pain, moderate (4-7) Last Admin: 10/11/15 07:30 Dose: 50 mg - Labs Labs: 10/08/15 05:15 10/08/15 05:15 - Respiratory Exam Respiratory Exam: NORMAL BREATHING PATTERN - Cardiovascular Exam Cardiovascular Exam: REGULAR RHYTHM - GI/Abdominal Exam GI & Abdominal Exam: Normal Bowel Sounds Assessment and Plan - Assessment and Plan (Free Text) Assessment: Temp 100.9 last week lethargic Urine culture Proteus CXR infitrates ?? no SOB IV ABX Levaquin Rocephin?? ID imput appreciated CT scan Head neg Reconsult neurology pending L shoulder pain x rays neg MSA Parkinson Dx as per neuro R leg pain LBP Hx of HNP Neuro consult venous doppler negative PT R shoulder pain Dislocation Ortho PT Disposition?? Pt is competent Social service and family involved Pt is [place] RLE rash Dermatiis vs cellulitis?? 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
--- NOTE | 2015-10-12 20:46 | CP.PCM.PN ---
Subjective - Date & Time of Evaluation Date of Evaluation: 10/12/15 Time of Evaluation: 22:22 - Subjective Subjective: more alert Objective - Vital Signs/Intake and Output Vital Signs (last 24 hours): Temp Pulse Resp BP Pulse Ox 97.5 F L 65 20 114/63 96 10/12/15 08:18 10/12/15 08:18 10/12/15 08:18 10/12/15 08:18 10/12/15 08:18 - Medications Medications: Current Medications Acetaminophen (Tylenol 325mg Tab) 650 mg PO Q4 PRN PRN Reason: Fever Last Admin: 10/04/15 17:43 Dose: 650 mg Clonazepam (Klonopin) 0.[address] [facility] Last Admin: 10/12/15 09:31 Dose: 0.5 mg Docusate Sodium (Colace) [address] [facility] Last Admin: 10/12/15 16:54 Dose: 100 mg Fluocinonide (Lidex 0.05% Oint) [address] [facility] Last Admin: 10/12/15 17:14 Dose: 1 applic Gabapentin (Neurontin) [address] [facility] Last Admin: 10/12/15 16:54 Dose: 600 mg Home Med (Patient's Own Medication) 1 unit PO TID@0500,1300,2100 [facility] Last Admin: 10/12/15 13:59 Dose: 1 unit Levofloxacin/Dextrose (Levaquin 500mg) 100 mls @ 100 mls/hr IVPB DAILY@1700 [facility] Last Admin: 10/12/15 17:08 Dose: 100 mls/hr Ceftriaxone Sodium 1 gm/ (Sodium Chloride) 100 mls @ 100 mls/hr IVPB DAILY [facility] Last Admin: 10/12/15 09:26 Dose: 100 mls/hr Lactulose (Enulose) 10 gm PO DAILY PRN PRN Reason: Constipation Midodrine (Proamatine) [address] [facility] Last Admin: 10/12/15 16:54 Dose: 5 mg Ondansetron HCl (Zofran Inj) 4 mg IVP Q6 PRN PRN Reason: Nausea/Vomiting Tramadol HCl (Ultram) 50 mg PO Q6 PRN PRN Reason: Pain, moderate (4-7) Last Admin: 10/11/15 07:30 Dose: 50 mg - Labs Labs: 10/08/15 05:15 03/27/16 05:15 - Respiratory Exam Respiratory Exam: NORMAL BREATHING PATTERN - Cardiovascular Exam Cardiovascular Exam: REGULAR RHYTHM - GI/Abdominal Exam GI & Abdominal Exam: Normal Bowel Sounds Assessment and Plan - Assessment and Plan (Free Text) Assessment: Assessment: Temp 100.9 last week lethargic but mcuh improved Urine culture Proteus CXR infitrates ?? no SOB IV ABX Levaquin Rocephin?? ID imput appreciated CT scan Head neg Reconsult neurology pending L shoulder pain x rays neg MSA Parkinson Dx as per neuro R leg pain LBP Hx of HNP Neuro consult venous doppler negative PT R shoulder pain Dislocation Ortho PT Disposition?? Pt is competent Social service and family involved Pt is [place] RLE rash Dermatiis vs cellulitis?? 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
[2015-10-13 07:10] LABS: HEMOGLOBIN 12.3 g/dL (12.0-18.0); MEAN CELL VOLUME 92.6 fl (80.0-94.0); MEAN CORPUSCULAR HEMOGLOBIN 30.8 pg (27.0-31.0); MEAN CORPUSCULAR HGB CONC 33.2 g/dL (33.0-37.0); WHITE BLOOD COUNT 6.7 K/uL (4.8-10.8)
[2015-10-13 07:44] LABS: BLOOD UREA NITROGEN 25 mg/dl (9-20); CALCIUM 8.8 mg/dL (8.4-10.2); GFR AFRICAN-AMERICAN > 60; GFR NON-AFRICAN AMERICAN > 60
--- NOTE | 2015-10-13 18:57 | CP.PCM.PN ---
Subjective - Date & Time of Evaluation Date of Evaluation: 10/13/15 Time of Evaluation: 22:22 - Subjective Subjective: Continues to be more alert Objective - Vital Signs/Intake and Output Vital Signs (last 24 hours): Temp Pulse Resp BP Pulse Ox 97.2 F L 75 18 121/72 98 10/13/15 16:51 10/13/15 16:51 10/13/15 16:51 10/13/15 16:51 10/13/15 16:51 - Medications Medications: Current Medications Acetaminophen (Tylenol 325mg Tab) 650 mg PO Q4 PRN PRN Reason: Fever Last Admin: 10/04/15 17:43 Dose: 650 mg Clonazepam (Klonopin) 0.5 mg PO DAILY [facility] Last Admin: 10/13/15 10:11 Dose: 0.5 mg Docusate Sodium (Colace) 100 mg PO BID [facility] Last Admin: 10/13/15 16:42 Dose: 100 mg Fluocinonide (Lidex 0.05% Oint) 1 applic TOP BID [facility] Last Admin: 10/13/15 16:44 Dose: 1 applic Gabapentin (Neurontin) 600 mg PO TID [facility] Last Admin: 10/13/15 16:42 Dose: 600 mg Home Med (Patient's Own Medication) 1 unit PO TID@0500,1300,2100 [facility] Last Admin: 10/13/15 12:16 Dose: 1 unit Levofloxacin/Dextrose (Levaquin 500mg) 100 mls @ 100 mls/hr IVPB DAILY@1700 [facility] Last Admin: 10/13/15 16:43 Dose: 100 mls/hr Ceftriaxone Sodium 1 gm/ (Sodium Chloride) 100 mls @ 100 mls/hr IVPB DAILY [facility] Last Admin: 10/13/15 09:57 Dose: 100 mls/hr Lactulose (Enulose) 10 gm PO DAILY PRN PRN Reason: Constipation Midodrine (Proamatine) 5 mg PO TID [facility] Last Admin: 10/13/15 16:42 Dose: 5 mg Ondansetron HCl (Zofran Inj) 4 mg IVP Q6 PRN PRN Reason: Nausea/Vomiting Tramadol HCl (Ultram) 50 mg PO Q6 PRN PRN Reason: Pain, moderate (4-7) Last Admin: 10/13/15 12:16 Dose: 50 mg - Labs Labs: 10/13/15 04:30 10/13/15 04:30 - Respiratory Exam Respiratory Exam: NORMAL BREATHING PATTERN - Cardiovascular Exam Cardiovascular Exam: REGULAR RHYTHM - GI/Abdominal Exam GI & Abdominal Exam: Normal Bowel Sounds Assessment and Plan - Assessment and Plan (Free Text) Assessment: Temp 100.9 last week lethargic but mcuh improved Urine culture Proteus CXR infitrates ?? no SOB IV ABX Levaquin Rocephin?? ID imput appreciated CT scan Head neg Reconsult neurology pending MSA Parkinson Dx as per neuro L shoulder pain x rays neg R leg pain LBP Hx of HNP Neuro consult venous doppler negative PT R shoulder pain Dislocation Ortho PT Disposition?? Pt is competent Social service and family involved Pt is [place] RLE rash Dermatiis vs cellulitis?? 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
--- NOTE | 2015-10-15 09:58 | CP.PCM.PN ---
Subjective - Date & Time of Evaluation Date of Evaluation: 10/15/15 Time of Evaluation: 10:40 - Subjective Subjective: Patient seen and evaluated bedside. Elderly male lying in bed complaining of pain over his neck , head and shoulder areas. With axial rigidity and hand tremors.Appears confused with mask face , flat affect , speech not very clear. Hemodynamically stable, afebrile Objective - Vital Signs/Intake and Output Vital Signs (last 24 hours): Temp Pulse Resp BP Pulse Ox 97.9 F 75 20 135/65 97 10/15/15 07:52 10/15/15 07:52 10/15/15 07:52 10/15/15 07:52 10/15/15 07:52 - Medications Medications: Current Medications Acetaminophen (Tylenol 325mg Tab) 650 mg PO Q4 PRN PRN Reason: Fever Last Admin: 10/04/15 17:43 Dose: 650 mg Clonazepam (Klonopin) 0.5 mg PO DAILY [facility] Last Admin: 10/15/15 08:24 Dose: 0.5 mg Docusate Sodium (Colace) 100 mg PO BID [facility] Last Admin: 10/15/15 08:28 Dose: 100 mg Fluocinonide (Lidex 0.05% Oint) 1 applic TOP BID [facility] Last Admin: 10/14/15 16:06 Dose: 1 applic Gabapentin (Neurontin) 600 mg PO TID [facility] Last Admin: 10/15/15 08:24 Dose: 600 mg Home Med (Patient's Own Medication) 1 unit PO TID@0500,1300,2100 [facility] Last Admin: 10/15/15 07:30 Dose: Not Given Levofloxacin/Dextrose (Levaquin 500mg) 100 mls @ 100 mls/hr IVPB DAILY@1700 [facility] Last Admin: 10/14/15 16:05 Dose: 100 mls/hr Ceftriaxone Sodium 1 gm/ (Sodium Chloride) 100 mls @ 100 mls/hr IVPB DAILY [facility] Last Admin: 10/14/15 09:34 Dose: 100 mls/hr Lactulose (Enulose) 10 gm PO DAILY PRN PRN Reason: Constipation Midodrine (Proamatine) 5 mg PO TID [facility] Last Admin: 10/15/15 08:28 Dose: 5 mg Ondansetron HCl (Zofran Inj) 4 mg IVP Q6 PRN PRN Reason: Nausea/Vomiting Tramadol HCl (Ultram) 50 mg PO Q6 PRN PRN Reason: Pain, moderate (4-7) Last Admin: 10/14/15 10:35 Dose: 50 mg - Labs Labs: 10/13/15 04:30 10/13/15 04:30 - Constitutional Appears: Agitated, Confused, Chronically Ill, Other (elederly frail , confused ) - Head Exam Head Exam: NORMOCEPHALIC - Eye Exam Eye Exam: PERRL - ENT Exam ENT Exam: Mucous Membranes Dry - Neck Exam Neck Exam: Tenderness Additional comments: decreased ROM with tenderness to palpation neck rigidity - Respiratory Exam Respiratory Exam: Clear to Ausculation Bilateral, NORMAL BREATHING PATTERN. absent: Wheezes - Cardiovascular Exam Cardiovascular Exam: REGULAR RHYTHM, +S1, +S2. absent: JVD - GI/Abdominal Exam GI & Abdominal Exam: Soft, Normal Bowel Sounds. absent: Guarding, Rebound - Rectal Exam Rectal Exam: Deferred - Extremities Exam Extremities Exam: Normal Inspection. absent: Pedal Edema Additional comments: shoulder tenderness , decreased ROM hand tremors - Neurological Exam Neurological Exam: Alert, Awake. absent: Oriented x3 - Psychiatric Exam Psychiatric exam: Agitated, Anxious, Flat Affect - Skin Skin Exam: Pallor, Warm Assessment and Plan (1) Fall Status: Acute (2) Parkinson disease Status: Chronic (3) Thrombocytopenia Status: Chronic (4) Depression Status: Chronic (5) Hypotension Status: Chronic (6) DVT prophylaxis Status: Acute - Assessment and Plan (Free Text) Assessment: 1.UTI --Proteus mirabilis in urine Id on consult On Levaquie and Rocephin 2. Fall Hx of frequent fall due to gait disturbance due to advanced Parkinson's PT while in hospital for gait training Will need placement to [facility] -patient has signed documents needed, SW following. Await plan for DC when Acceptance of financial documents 3. Osteoarthritis Biltaral Shoulder pain with neck pain and muscle spasm Start Lidoderm patch and flexeril HS heating pad OT for ROM and exercise continue tylenol prn and Ultram 4.Parkinson disease, chronic Continue Carbidopa/Levodopa 5.Thrombocytopenia, chronic unclear etiology Stable 6. Continue Seroquel psych consulted, patient is competent and has capacity 7.Hypotension hx of Orthostasis, Shy Drager Syndrome Continue Midodrine 8. Shingles improved Isolation discontinued topical hydrocortisone ID was consulted Pain management as needed 9. DVT prophylaxis Lovenox
--- NOTE | 2015-10-15 12:32 | CP.PCM.PN ---
Subjective - Date & Time of Evaluation Date of Evaluation: 10/15/15 Time of Evaluation: 09:55 - Subjective Subjective: NO FEVER OR LEUKOCYTOSIS WEAK, BEDRIDDEN AND CONFUSED UTI IS RESOLVED Objective - Vital Signs/Intake and Output Vital Signs (last 24 hours): Temp Pulse Resp BP Pulse Ox 97.9 F 75 20 135/65 97 10/15/15 07:52 10/15/15 07:52 10/15/15 07:52 10/15/15 07:52 10/15/15 07:52 - Medications Medications: Current Medications Acetaminophen (Tylenol 325mg Tab) 650 mg PO Q4 PRN PRN Reason: Fever Last Admin: 10/04/15 17:43 Dose: 650 mg Clonazepam (Klonopin) 0.5 mg PO DAILY [facility] Last Admin: 10/15/15 08:24 Dose: 0.5 mg Cyclobenzaprine HCl (Flexeril) 10 mg PO HS PRN PRN Reason: Muscle spasm Docusate Sodium (Colace) 100 mg PO BID [facility] Last Admin: 10/15/15 08:28 Dose: 100 mg Fluocinonide (Lidex 0.05% Oint) 1 applic TOP BID [facility] Last Admin: 10/15/15 10:22 Dose: 1 applic Gabapentin (Neurontin) 600 mg PO TID [facility] Last Admin: 10/15/15 08:24 Dose: 600 mg Home Med (Patient's Own Medication) 1 unit PO TID@0500,1300,2100 [facility] Last Admin: 10/15/15 07:30 Dose: Not Given Levofloxacin/Dextrose (Levaquin 500mg) 100 mls @ 100 mls/hr IVPB DAILY@1700 [facility] Last Admin: 10/14/15 16:05 Dose: 100 mls/hr Ceftriaxone Sodium 1 gm/ (Sodium Chloride) 100 mls @ 100 mls/hr IVPB DAILY [facility] Last Admin: 10/15/15 10:23 Dose: 100 mls/hr Lactulose (Enulose) 10 gm PO DAILY PRN PRN Reason: Constipation Lidocaine (Lidoderm) 1 ea TD DAILY [facility] Midodrine (Proamatine) 5 mg PO TID [facility] Last Admin: 10/15/15 08:28 Dose: 5 mg Ondansetron HCl (Zofran Inj) 4 mg IVP Q6 PRN PRN Reason: Nausea/Vomiting Tramadol HCl (Ultram) 50 mg PO Q6 PRN PRN Reason: Pain, moderate (4-7) Last Admin: 10/15/15 11:03 Dose: 50 mg - Labs Labs: 10/13/15 04:30 10/13/15 04:30 - Constitutional Appears: Non-toxic, Confused, Chronically Ill - Head Exam Head Exam: NORMOCEPHALIC - Eye Exam Eye Exam: absent: Nystagmus - ENT Exam ENT Exam: Mucous Membranes Dry, Normal External Ear Exam, Normal Oropharynx - Neck Exam Neck Exam: absent: Lymphadenopathy, Thyromegaly - Respiratory Exam Respiratory Exam: Decreased Breath Sounds, Clear to Ausculation Bilateral - Cardiovascular Exam Cardiovascular Exam: REGULAR RHYTHM, +S1, +S2 - GI/Abdominal Exam GI & Abdominal Exam: Distended, Soft. absent: Tenderness - Extremities Exam Extremities Exam: absent: Calf Tenderness, Pedal Edema - Back Exam Back Exam: absent: CVA tenderness (L), CVA tenderness (R) - Neurological Exam Neurological Exam: Altered Assessment and Plan (1) Cellulitis and abscess of leg, except foot Status: Suspected (2) Fever Status: Acute
[2015-10-15] MEDS: Lidocaine 5% Patch TD SCH (14:54)
[2015-10-16] MEDS: Lidocaine 5% Patch TD SCH (08:52)
--- NOTE | 2015-10-16 21:18 | CP.PCM.PN ---
Subjective - Date & Time of Evaluation Date of Evaluation: 10/16/15 Time of Evaluation: 22:22 - Subjective Subjective: Confused? Objective - Vital Signs/Intake and Output Vital Signs (last 24 hours): Temp Pulse Resp BP Pulse Ox 97.8 F 86 20 157/61 H 97 10/16/15 15:37 10/16/15 16:46 10/16/15 15:37 10/16/15 15:37 10/16/15 16:46 - Medications Medications: Current Medications Acetaminophen (Tylenol 325mg Tab) 650 mg PO Q4 PRN PRN Reason: Fever Last Admin: 10/04/15 17:43 Dose: 650 mg Clonazepam (Klonopin) 0.5 mg PO DAILY [facility] Last Admin: 10/16/15 08:51 Dose: 0.5 mg Cyclobenzaprine HCl (Flexeril) 10 mg PO HS PRN PRN Reason: Muscle spasm Docusate Sodium (Colace) 100 mg PO BID [facility] Last Admin: 10/16/15 16:34 Dose: 100 mg Fluocinonide (Lidex 0.05% Oint) 1 applic TOP BID [facility] Last Admin: 10/16/15 16:37 Dose: 1 applic Gabapentin (Neurontin) 600 mg PO TID [facility] Last Admin: 10/16/15 16:38 Dose: 600 mg Home Med (Patient's Own Medication) 1 unit PO TID@0500,1300,2100 [facility] Last Admin: 10/16/15 13:42 Dose: 1 unit Levofloxacin/Dextrose (Levaquin 500mg) 100 mls @ 100 mls/hr IVPB DAILY@1700 [facility] Last Admin: 10/16/15 16:35 Dose: 100 mls/hr Ceftriaxone Sodium 1 gm/ (Sodium Chloride) 100 mls @ 100 mls/hr IVPB DAILY [facility] Last Admin: 10/16/15 08:53 Dose: 100 mls/hr Lactulose (Enulose) 10 gm PO DAILY PRN PRN Reason: Constipation Lidocaine (Lidoderm) 1 ea TD DAILY [facility] Last Admin: 10/16/15 08:52 Dose: 1 ea Midodrine (Proamatine) 5 mg PO TID [facility] Last Admin: 10/16/15 16:39 Dose: 5 mg Ondansetron HCl (Zofran Inj) 4 mg IVP Q6 PRN PRN Reason: Nausea/Vomiting Tramadol HCl (Ultram) 50 mg PO Q6 PRN PRN Reason: Pain, moderate (4-7) Last Admin: 10/16/15 08:53 Dose: 50 mg - Labs Labs: 10/13/15 04:30 10/13/15 04:30 - Respiratory Exam Respiratory Exam: NORMAL BREATHING PATTERN - Cardiovascular Exam Cardiovascular Exam: REGULAR RHYTHM - GI/Abdominal Exam GI & Abdominal Exam: Normal Bowel Sounds Assessment and Plan - Assessment and Plan (Free Text) Assessment: Confused? 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 Pt is competent Social service and family involved Pt is [place] RLE rash Dermatiis vs cellulitis?? 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
[2015-10-16 21:28] LABS: HEMOGLOBIN 12.8 g/dL (12.0-18.0); MEAN CELL VOLUME 91.9 fl (80.0-94.0); MEAN CORPUSCULAR HEMOGLOBIN 30.5 pg (27.0-31.0); MEAN CORPUSCULAR HGB CONC 33.2 g/dL (33.0-37.0); RBC 4.2 Mil/uL (4.40-5.90); RED CELL DISTRIBUTION WIDTH 14.1 % (11.5-14.5)
[2015-10-16 21:37] LABS: ALB/GLOB RATIO 1.1 (1.0-2.1); ALBUMIN 3.6 g/dL (3.5-5.0); ALT/SGPT 12 U/L (21-72); AST/SGOT 19 U/L (17-59); BLOOD UREA NITROGEN 19 mg/dl (9-20); CALCIUM 8.9 mg/dL (8.4-10.2); GFR AFRICAN-AMERICAN > 60; GFR NON-AFRICAN AMERICAN > 60
[2015-10-17] MEDS: Dextrose 5%/0.45% NS 1,000 ML IV SCH ×2 (00:40→11:09)
[2015-10-17] MEDS: Lidocaine 5% Patch TD SCH (09:37)
--- NOTE | 2015-10-17 12:27 | CP.PCM.PN ---
Subjective - Date & Time of Evaluation Date of Evaluation: 10/17/15 Time of Evaluation: 11:00 - Subjective Subjective: afeb levaquin on hold cont rocephin recultured last night Objective - Vital Signs/Intake and Output Vital Signs (last 24 hours): Temp Pulse Resp BP Pulse Ox 98.3 F 92 H 18 119/60 96 10/17/15 08:49 10/17/15 08:49 10/17/15 08:49 10/17/15 08:49 10/17/15 08:49 - Medications Medications: Current Medications Acetaminophen (Tylenol 325mg Tab) 650 mg PO Q4 PRN PRN Reason: Fever Last Admin: 10/04/15 17:43 Dose: 650 mg Clonazepam (Klonopin) 0.5 mg PO DAILY [facility] Last Admin: 10/17/15 09:42 Dose: 0.5 mg Cyclobenzaprine HCl (Flexeril) 10 mg PO HS PRN PRN Reason: Muscle spasm Docusate Sodium (Colace) 100 mg PO BID [facility] Last Admin: 10/17/15 09:37 Dose: 100 mg Fluocinonide (Lidex 0.05% Oint) 1 applic TOP BID [facility] Last Admin: 10/17/15 09:39 Dose: 1 applic Gabapentin (Neurontin) 600 mg PO TID [facility] Last Admin: 10/17/15 09:38 Dose: 600 mg Home Med (Patient's Own Medication) 1 unit PO TID@0500,1300,2100 [facility] Last Admin: 10/17/15 05:38 Dose: 1 unit Ceftriaxone Sodium 1 gm/ (Sodium Chloride) 100 mls @ 100 mls/hr IVPB DAILY [facility] Last Admin: 10/17/15 09:39 Dose: 100 mls/hr Dextrose/Sodium Chloride (Dextrose 5%/0.45% Ns 1000 Ml) 1,000 mls @ 100 mls/hr IV .Q10H [facility] Stop: 10/18/15 00:31 Last Admin: 10/17/15 11:09 Dose: Not Given Lactulose (Enulose) 10 gm PO DAILY PRN PRN Reason: Constipation Lidocaine (Lidoderm) 1 ea TD DAILY [facility] Last Admin: 10/17/15 09:37 Dose: 1 ea Midodrine (Proamatine) 5 mg PO TID [facility] Last Admin: 10/17/15 09:39 Dose: 5 mg Ondansetron HCl (Zofran Inj) 4 mg IVP Q6 PRN PRN Reason: Nausea/Vomiting Tramadol HCl (Ultram) 50 mg PO Q6 PRN PRN Reason: Pain, moderate (4-7) Last Admin: 10/17/15 05:38 Dose: 50 mg - Labs Labs: 10/16/15 21:20 10/16/15 21:20 Assessment and Plan (1) Cellulitis and abscess of leg, except foot Status: Suspected (2) Fever Status: Acute
--- NOTE | 2015-10-17 14:55 | RAD ---
HISTORY: pt confused COMPARISON: Chest x-ray performed 10/04/15 TECHNIQUE: Chest, one view. FINDINGS: Examination limited by habitus. LUNGS: Bibasilar atelectasis/infiltrates. Please note that chest x-ray has limited sensitivity for the detection of pulmonary masses. PLEURA: No significant pleural effusion identified. No definite pneumothorax . CARDIOVASCULAR: Cardiomegaly. Ectatic aorta. Atherosclerotic calcifications. OSSEOUS STRUCTURES: Degenerative changes of the spine and shoulders. Acromioclavicular arthropathy. VISUALIZED UPPER ABDOMEN: Unremarkable. OTHER FINDINGS: None. IMPRESSION: Persistent bibasilar atelectasis/ infiltrates.
--- NOTE | 2015-10-17 19:51 | CP.PCM.PN ---
Subjective - Date & Time of Evaluation Date of Evaluation: 10/17/15 Time of Evaluation: 22:22 - Subjective Subjective: Less confused Inc WBC last ight Objective - Vital Signs/Intake and Output Vital Signs (last 24 hours): Temp Pulse Resp BP Pulse Ox 97.3 F L 88 2 L 139/70 97 10/17/15 16:47 10/17/15 16:47 10/17/15 16:47 10/17/15 16:47 10/17/15 16:47 - Medications Medications: Current Medications Acetaminophen (Tylenol 325mg Tab) 650 mg PO Q4 PRN PRN Reason: Fever Last Admin: 10/04/15 17:43 Dose: 650 mg Clonazepam (Klonopin) 0.5 mg PO DAILY [facility] Last Admin: 10/17/15 09:42 Dose: 0.5 mg Cyclobenzaprine HCl (Flexeril) 10 mg PO HS PRN PRN Reason: Muscle spasm Docusate Sodium (Colace) 100 mg PO BID [facility] Last Admin: 10/17/15 16:51 Dose: 100 mg Fluocinonide (Lidex 0.05% Oint) 1 applic TOP BID [facility] Last Admin: 10/17/15 16:51 Dose: 1 applic Gabapentin (Neurontin) 600 mg PO TID [facility] Last Admin: 10/17/15 16:52 Dose: 600 mg Home Med (Patient's Own Medication) 1 unit PO TID@0500,1300,2100 [facility] Last Admin: 10/17/15 13:31 Dose: 1 unit Ceftriaxone Sodium 1 gm/ (Sodium Chloride) 100 mls @ 100 mls/hr IVPB DAILY [facility] Last Admin: 10/17/15 09:39 Dose: 100 mls/hr Dextrose/Sodium Chloride (Dextrose 5%/0.45% Ns 1000 Ml) 1,000 mls @ 100 mls/hr IV .Q10H [facility] Stop: 10/18/15 00:31 Last Admin: 10/17/15 11:09 Dose: Not Given Lactulose (Enulose) 10 gm PO DAILY PRN PRN Reason: Constipation Lidocaine (Lidoderm) 1 ea TD DAILY [facility] Last Admin: 10/17/15 09:37 Dose: 1 ea Midodrine (Proamatine) 5 mg PO TID [facility] Last Admin: 10/17/15 16:52 Dose: 5 mg Ondansetron HCl (Zofran Inj) 4 mg IVP Q6 PRN PRN Reason: Nausea/Vomiting Tramadol HCl (Ultram) 50 mg PO Q6 PRN PRN Reason: Pain, moderate (4-7) Last Admin: 10/17/15 16:50 Dose: 50 mg - Labs Labs: 10/16/15 21:20 10/16/15 21:20 - Respiratory Exam Respiratory Exam: NORMAL BREATHING PATTERN - Cardiovascular Exam Cardiovascular Exam: REGULAR RHYTHM - GI/Abdominal Exam GI & Abdominal Exam: Normal Bowel Sounds Assessment and Plan - Assessment and Plan (Free Text) Assessment: Confused? WBC? d/c Levaquin repeat labs UTI Urine culture Proteus IV ABX Rocephin MSA Parkinson Dx as per neuro L shoulder pain x rays neg R leg pain LBP Hx of HNP Neuro consult venous doppler negative PT R shoulder pain Dislocation Ortho PT Disposition?? Pt is competent Social service and family involved Pt is [place] WW[place] RLE rash Dermatiis vs cellulitis?? 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
[2015-10-18] MEDS: Dextrose 5%/0.45% NS 1,000 ML IV SCH (04:49)
[2015-10-18] MEDS: Lidocaine 5% Patch TD SCH (09:06)
[2015-10-18 11:50] LABS: HEMOGLOBIN 12.2 g/dL (12.0-18.0); MEAN CELL VOLUME 93.2 fl (80.0-94.0); MEAN CORPUSCULAR HEMOGLOBIN 30.5 pg (27.0-31.0); MEAN CORPUSCULAR HGB CONC 32.7 g/dL (33.0-37.0); RBC 4.01 Mil/uL (4.40-5.90); RED CELL DISTRIBUTION WIDTH 13.5 % (11.5-14.5); WHITE BLOOD COUNT 10.5 K/uL (4.8-10.8)
[2015-10-18 12:13] LABS: BLOOD UREA NITROGEN 11 mg/dl (9-20); CALCIUM 8.4 mg/dL (8.4-10.2); GFR AFRICAN-AMERICAN > 60; GFR NON-AFRICAN AMERICAN > 60
--- NOTE | 2015-10-18 14:46 | CP.PCM.PN ---
Subjective - Date & Time of Evaluation Date of Evaluation: 10/18/15 Time of Evaluation: 10:30 - Subjective Subjective: NO FEVER OR LEUKOCYTOSIS Objective - Vital Signs/Intake and Output Vital Signs (last 24 hours): Temp Pulse Resp BP Pulse Ox 98.3 F 87 20 118/70 96 10/18/15 07:35 10/18/15 07:35 10/18/15 07:35 10/18/15 07:35 10/18/15 07:35 - Medications Medications: Current Medications Acetaminophen (Tylenol 325mg Tab) 650 mg PO Q4 PRN PRN Reason: Fever Last Admin: 10/04/15 17:43 Dose: 650 mg Clonazepam (Klonopin) 0.5 mg PO DAILY [facility] Last Admin: 10/18/15 09:06 Dose: 0.5 mg Cyclobenzaprine HCl (Flexeril) 10 mg PO HS PRN PRN Reason: Muscle spasm Docusate Sodium (Colace) 100 mg PO BID [facility] Last Admin: 10/18/15 09:04 Dose: 100 mg Fluocinonide (Lidex 0.05% Oint) 1 applic TOP BID [facility] Last Admin: 10/18/15 09:06 Dose: 1 applic Gabapentin (Neurontin) 600 mg PO TID [facility] Last Admin: 10/18/15 12:55 Dose: 600 mg Home Med (Patient's Own Medication) 1 unit PO TID@0500,1300,2100 [facility] Last Admin: 10/18/15 12:56 Dose: 1 unit Ceftriaxone Sodium 1 gm/ (Sodium Chloride) 100 mls @ 100 mls/hr IVPB DAILY [facility] Last Admin: 10/18/15 09:09 Dose: 100 mls/hr Lactulose (Enulose) 10 gm PO DAILY PRN PRN Reason: Constipation Lidocaine (Lidoderm) 1 ea TD DAILY [facility] Last Admin: 10/18/15 09:06 Dose: 1 ea Midodrine (Proamatine) 5 mg PO TID [facility] Last Admin: 10/18/15 12:55 Dose: 5 mg Ondansetron HCl (Zofran Inj) 4 mg IVP Q6 PRN PRN Reason: Nausea/Vomiting Tramadol HCl (Ultram) 50 mg PO Q6 PRN PRN Reason: Pain, moderate (4-7) Last Admin: 10/18/15 05:02 Dose: 50 mg - Labs Labs: 10/18/15 11:33 10/18/15 11:33 - Constitutional Appears: Non-toxic, Chronically Ill - Head Exam Head Exam: NORMOCEPHALIC - Eye Exam Eye Exam: absent: Scleral icterus - ENT Exam ENT Exam: Mucous Membranes Dry - Neck Exam Neck Exam: absent: Lymphadenopathy - Respiratory Exam Respiratory Exam: Decreased Breath Sounds, Clear to Ausculation Bilateral - Cardiovascular Exam Cardiovascular Exam: REGULAR RHYTHM, +S1, +S2 - GI/Abdominal Exam GI & Abdominal Exam: Distended, Soft. absent: Tenderness - Rectal Exam Rectal Exam: Deferred - Exam Exam: NORMAL INSPECTION - Extremities Exam Extremities Exam: absent: Calf Tenderness, Pedal Edema - Back Exam Back Exam: absent: CVA tenderness (L), CVA tenderness (R) - Neurological Exam Neurological Exam: Altered Assessment and Plan (1) Cellulitis and abscess of leg, except foot Status: Suspected (2) Fever Status: Acute
--- NOTE | 2015-10-18 19:37 | CP.PCM.PN ---
Subjective - Date & Time of Evaluation Date of Evaluation: 10/18/15 Time of Evaluation: 22:22 - Subjective Subjective: confused Objective - Vital Signs/Intake and Output Vital Signs (last 24 hours): Temp Pulse Resp BP Pulse Ox 97.3 F L 80 18 126/70 99 10/18/15 15:47 10/18/15 15:47 10/18/15 15:47 10/18/15 15:47 10/18/15 15:47 - Medications Medications: Current Medications Acetaminophen (Tylenol 325mg Tab) 650 mg PO Q4 PRN PRN Reason: Fever Last Admin: 10/04/15 17:43 Dose: 650 mg Clonazepam (Klonopin) 0.5 mg PO DAILY [facility] Last Admin: 10/18/15 09:06 Dose: 0.5 mg Cyclobenzaprine HCl (Flexeril) 10 mg PO HS PRN PRN Reason: Muscle spasm Docusate Sodium (Colace) 100 mg PO BID [facility] Last Admin: 10/18/15 16:38 Dose: 100 mg Fluocinonide (Lidex 0.05% Oint) 1 applic TOP BID [facility] Last Admin: 10/18/15 16:39 Dose: 1 applic Gabapentin (Neurontin) 600 mg PO TID [facility] Last Admin: 10/18/15 16:39 Dose: 600 mg Home Med (Patient's Own Medication) 1 unit PO TID@0500,1300,2100 [facility] Last Admin: 10/18/15 12:56 Dose: 1 unit Ceftriaxone Sodium 1 gm/ (Sodium Chloride) 100 mls @ 100 mls/hr IVPB DAILY [facility] Last Admin: 10/18/15 09:09 Dose: 100 mls/hr Lactulose (Enulose) 10 gm PO DAILY PRN PRN Reason: Constipation Lidocaine (Lidoderm) 1 ea TD DAILY [facility] Last Admin: 10/18/15 09:06 Dose: 1 ea Midodrine (Proamatine) 5 mg PO TID [facility] Last Admin: 10/18/15 16:39 Dose: 5 mg Ondansetron HCl (Zofran Inj) 4 mg IVP Q6 PRN PRN Reason: Nausea/Vomiting Tramadol HCl (Ultram) 50 mg PO Q6 PRN PRN Reason: Pain, moderate (4-7) Last Admin: 10/18/15 05:02 Dose: 50 mg - Labs Labs: 10/18/15 11:33 10/18/15 11:33 - Respiratory Exam Respiratory Exam: NORMAL BREATHING PATTERN - Cardiovascular Exam Cardiovascular Exam: REGULAR RHYTHM - GI/Abdominal Exam GI & Abdominal Exam: Normal Bowel Sounds Assessment and Plan - Assessment and Plan (Free Text) Assessment: Confused? WBC wnl d/c Levaquin UTI Urine culture Proteus IV ABX Rocephin MSA Parkinson Dx as per neuro L shoulder pain x rays neg R leg pain LBP Hx of HNP Neuro consult venous doppler negative PT R shoulder pain Dislocation Ortho PT Disposition?? Pt is competent Social service and family involved Pt is [place] WW[place] RLE rash Dermatiis vs cellulitis?? 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
[2015-10-19] MEDS: Lidocaine 5% Patch TD SCH (09:01)
--- NOTE | 2015-10-19 17:09 | CP.PCM.PN ---
Subjective - Date & Time of Evaluation Date of Evaluation: 10/19/15 Time of Evaluation: 22:22 - Subjective Subjective: more alert today Objective - Vital Signs/Intake and Output Vital Signs (last 24 hours): Temp Pulse Resp BP Pulse Ox 97.6 F 77 18 129/59 L 97 10/19/15 15:53 10/19/15 15:53 10/19/15 15:53 10/19/15 15:53 10/19/15 15:53 - Medications Medications: Current Medications Acetaminophen (Tylenol 325mg Tab) 650 mg PO Q4 PRN PRN Reason: Fever Last Admin: 10/04/15 17:43 Dose: 650 mg Clonazepam (Klonopin) 0.5 mg PO DAILY [facility] Last Admin: 10/19/15 08:59 Dose: 0.5 mg Cyclobenzaprine HCl (Flexeril) 10 mg PO HS PRN PRN Reason: Muscle spasm Docusate Sodium (Colace) 100 mg PO BID [facility] Last Admin: 10/19/15 16:38 Dose: 100 mg Fluocinonide (Lidex 0.05% Oint) 1 applic TOP BID [facility] Last Admin: 10/19/15 16:35 Dose: 1 applic Gabapentin (Neurontin) 600 mg PO TID [facility] Last Admin: 10/19/15 16:37 Dose: 600 mg Home Med (Patient's Own Medication) 1 unit PO TID@0500,1300,2100 [facility] Last Admin: 10/19/15 13:00 Dose: 1 unit Ceftriaxone Sodium 1 gm/ (Sodium Chloride) 100 mls @ 100 mls/hr IVPB DAILY [facility] Last Admin: 10/19/15 09:03 Dose: 100 mls/hr Lactulose (Enulose) 10 gm PO DAILY PRN PRN Reason: Constipation Lidocaine (Lidoderm) 1 ea TD DAILY [facility] Last Admin: 10/19/15 09:01 Dose: Not Given Midodrine (Proamatine) 5 mg PO TID [facility] Last Admin: 10/19/15 16:37 Dose: 5 mg Ondansetron HCl (Zofran Inj) 4 mg IVP Q6 PRN PRN Reason: Nausea/Vomiting Tramadol HCl (Ultram) 50 mg PO Q6 PRN PRN Reason: Pain, moderate (4-7) Last Admin: 10/18/15 05:02 Dose: 50 mg - Labs Labs: 10/18/15 11:33 10/18/15 11:33 - Respiratory Exam Respiratory Exam: NORMAL BREATHING PATTERN - Cardiovascular Exam Cardiovascular Exam: REGULAR RHYTHM - GI/Abdominal Exam GI & Abdominal Exam: Normal Bowel Sounds Assessment and Plan - Assessment and Plan (Free Text) Assessment: Confused? More alert today WBC wnl d/c Levaquin UTI Urine culture Proteus IV ABX Rocephin MSA Parkinson Dx as per neuro L shoulder pain x rays neg R leg pain LBP Hx of HNP Neuro consult venous doppler negative PT R shoulder pain Dislocation Ortho PT Disposition?? Pt is competent Social service and family involved Pt is [place] RLE rash Dermatiis vs cellulitis?? 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
[2015-10-20] MEDS: Lidocaine 5% Patch TD SCH (09:03)
--- NOTE | 2015-10-20 13:03 | CP.PCM.PN ---
Subjective - Date & Time of Evaluation Date of Evaluation: 10/20/15 Time of Evaluation: 10:00 - Subjective Subjective: imoproving nad on iv rx Objective - Vital Signs/Intake and Output Vital Signs (last 24 hours): Temp Pulse Resp BP Pulse Ox 97.7 F 90 20 98/65 L 93 L 10/20/15 09:00 10/20/15 09:00 10/20/15 09:00 10/20/15 09:00 10/20/15 09:00 - Medications Medications: Current Medications Acetaminophen (Tylenol 325mg Tab) 650 mg PO Q4 PRN PRN Reason: Fever Last Admin: 10/04/15 17:43 Dose: 650 mg Clonazepam (Klonopin) 0.5 mg PO DAILY [facility] Last Admin: 10/20/15 09:08 Dose: 0.5 mg Cyclobenzaprine HCl (Flexeril) 10 mg PO HS PRN PRN Reason: Muscle spasm Docusate Sodium (Colace) 100 mg PO BID [facility] Last Admin: 10/20/15 09:03 Dose: 100 mg Fluocinonide (Lidex 0.05% Oint) 1 applic TOP BID [facility] Last Admin: 10/19/15 16:35 Dose: 1 applic Gabapentin (Neurontin) 600 mg PO TID [facility] Last Admin: 10/20/15 09:04 Dose: 600 mg Home Med (Patient's Own Medication) 1 unit PO TID@0500,1300,2100 [facility] Last Admin: 10/20/15 07:02 Dose: 1 unit Ceftriaxone Sodium 1 gm/ (Sodium Chloride) 100 mls @ 100 mls/hr IVPB DAILY [facility] Last Admin: 10/20/15 09:05 Dose: 100 mls/hr Lactulose (Enulose) 10 gm PO DAILY PRN PRN Reason: Constipation Lidocaine (Lidoderm) 1 ea TD DAILY [facility] Last Admin: 10/20/15 09:03 Dose: 1 ea Midodrine (Proamatine) 5 mg PO TID [facility] Last Admin: 10/20/15 09:04 Dose: 5 mg Ondansetron HCl (Zofran Inj) 4 mg IVP Q6 PRN PRN Reason: Nausea/Vomiting Tramadol HCl (Ultram) 50 mg PO Q6 PRN PRN Reason: Pain, moderate (4-7) Last Admin: 10/18/15 05:02 Dose: 50 mg - Labs Labs: 04/06/16 11:33 10/18/15 11:33 - Constitutional Appears: Non-toxic, Chronically Ill - Head Exam Head Exam: NORMOCEPHALIC - Eye Exam Eye Exam: absent: Scleral icterus Pupil Exam: NORMAL ACCOMODATION - ENT Exam ENT Exam: Mucous Membranes Dry, Normal External Ear Exam, Normal Oropharynx - Neck Exam Neck Exam: absent: Lymphadenopathy, Thyromegaly - Respiratory Exam Respiratory Exam: Decreased Breath Sounds, Clear to Ausculation Bilateral - Cardiovascular Exam Cardiovascular Exam: REGULAR RHYTHM, +S1, +S2 - GI/Abdominal Exam GI & Abdominal Exam: Distended, Soft. absent: Tenderness Assessment and Plan (1) Cellulitis and abscess of leg, except foot Status: Suspected (2) Fever Status: Acute
--- NOTE | 2015-10-20 17:10 | CON ---
DATE: 10/20/2015 CHIEF COMPLAINT: Worsening Parkinson's disease. 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 During his ho spital course, he grew Proteus mirabilis in his urine and had some opacities on his chest x-ray which has currently been resolved. His is on antibiotics. He had intermittent bouts of confusion and was reconsulted. 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 He is cu rrently on Rytary 48.75 p.o. t.i.d. There is a question if his being on Rytary is making him better. Apparently in the past, with him being on Rytary, he was less stiff than usual compared to regular Sinemet from his history. He is followed a prior neurologist named Dr. Rosas who had placed him on Rytary and apparently had documented that he did better on Rytary compared to regular Sinemet or sust ained controlled release. Given Rytary has immediate and sustained release of Sinemet, I think that may be beneficial for this patient. He does have intermittent bouts of delirium given that he has un dergone a UTI as well as some opacities on his chest x-ray for which he is on antibiotics per ID. He also is mildly dehydrated at times. Currently, he follows commands. He is stiff and has a resting tremor. PAST MEDICAL HISTORY: History of Parkinson's disease, history of Shy-Drager syndrome, history of art hritis, history of recurrent falls. REVIEW OF SYSTEMS: A 14-point review of systems is negative except for the HPI. MEDICATIONS: Reviewed via nurse's reconciliation sheet. ALLERGIES: ALLERGIC TO PENICILLIN. SOCIAL HISTORY: Denies any illicit drug use, smoking, or ETOH abuse. PHYSICAL EXAMINATION: VITAL SIGNS: Reviewed. GENERAL: The patient is lying in bed, in no acute distress. HEENT: Atraumatic, normocephalic. PERRLA. Extraocular muscles intact. NECK: Supple, no JVD, no adenopathy noted. LUNGS: Slightly decreased breath sounds bilaterally. No adventitious sounds. HEART: S1, S2, normal rate and rhythm. No murmurs, rubs, or gallops. ABDOMEN: Soft, nontender, nondistended. Bowel sounds are present. EXTREMITIES: No clubbing, no cyanosis. Peripheral pulses 2+ felt bilaterally. NEUROLOGIC: The patient is alert, oriented to person and place, not much of month and year. Speech is hypophonic, mask-like facies. Cranial nerves II-XII are intact. MOTOR: Increased tone throughout, increased cogwheel rigidity at both wrists. SENSORY: Light touch, pinprick, proprioception, vibration is intact bilaterally. Deep tendon reflex es 2+ throughout. COORDINATION: [id number] intact, but is slightly more stiff, slow to rise from the chair and has history of very ataxic type of gait. LABORATORY DATA: Reviewed. ASSESSMENT AND PLAN: This is an 85-year-old man with history of Parkinson's disease, history of Shy- Drager is syndrome on midodrine, who has recurrent falls and has gait dysfunction due to underlying P arkinson's disease, was initially on Rytary which helped with him with motor fluctuations as well as freezing and was out of it since he got samples from Dr. Rosas and was on Sinemet sustained release as well as regular Sinemet of 10/100 p.o. t.i.d. which now was changed since he had gotten the Rytary samples. He is on 48.75 p.o. t.i.d. of Rytary samples for his Parkinson's disease. I was reconsult ed for his change in mental status. He has gone under bouts of a urinary tract infection growing Pro teus mirabilis and opacity on his chest x-ray for which he is on antibiotics and chest x-ray opacitie s are currently resolving. He has bouts of delirium and some mild dehydration. Given his underlying urinary tract infection and opacities in the lung and some mild dehydration, can cause fluctuating d elirium and some confusional episodes superimposed on underlying Parkinson's as well as he has [place] son's associated cognitive impairment. 1. At this time, I still given Rytary is a great drug in terms of immediate and sustained release of Sinemet which will likely be of better benefit from the regular Sinemet at this time, given seeing a ll of his whole medical record. I feel like we can continue with the Rytary 48.75 p.o. t.i.d. for hi s underlying Parkinson's disease which he will have less freezing episodes than off. 2. He definitely needs subacute and [id number] supervision as well as long-term placement. He would need definitely physical and occupational therapy aggressively. 3. He needs to be out of bed to chair rather than lying in bed all the time which can make the patie nt delirious as well and stiff. 4. Continue with Flexeril and baclofen p.r.n. just for some stiffness. 5. Avoid any sedative medications if possible and continue with current present medical management. He is neurologically stable. Thank you for allowing me to participate in his care. Casey Andrade MD cc: [id number] TT: 10/20/2015 17:11:45 Confirmation # [id number] Dictation # [id number] tn
--- NOTE | 2015-10-20 18:37 | CP.PCM.PN ---
Subjective - Date & Time of Evaluation Date of Evaluation: 10/20/15 Time of Evaluation: 22:22 - Subjective Subjective: More alert today Objective - Vital Signs/Intake and Output Vital Signs (last 24 hours): Temp Pulse Resp BP Pulse Ox 98.1 F 94 H 20 111/57 L 94 L 10/20/15 15:42 10/20/15 15:42 10/20/15 15:42 10/20/15 15:42 10/20/15 15:42 - Medications Medications: Current Medications Acetaminophen (Tylenol 325mg Tab) 650 mg PO Q4 PRN PRN Reason: Fever Last Admin: 10/04/15 17:43 Dose: 650 mg Clonazepam (Klonopin) 0.5 mg PO DAILY [facility] Last Admin: 10/20/15 09:08 Dose: 0.5 mg Cyclobenzaprine HCl (Flexeril) 10 mg PO HS PRN PRN Reason: Muscle spasm Docusate Sodium (Colace) 100 mg PO BID [facility] Last Admin: 10/20/15 16:15 Dose: Not Given Fluocinonide (Lidex 0.05% Oint) 1 applic TOP BID [facility] Last Admin: 10/20/15 16:16 Dose: 1 applic Gabapentin (Neurontin) 600 mg PO TID [facility] Last Admin: 10/20/15 16:17 Dose: 600 mg Home Med (Patient's Own Medication) 1 unit PO TID@0500,1300,2100 [facility] Last Admin: 10/20/15 13:05 Dose: 1 unit Ceftriaxone Sodium 1 gm/ (Sodium Chloride) 100 mls @ 100 mls/hr IVPB DAILY [facility] Last Admin: 10/20/15 09:05 Dose: 100 mls/hr Lactulose (Enulose) 10 gm PO DAILY PRN PRN Reason: Constipation Lidocaine (Lidoderm) 1 ea TD DAILY [facility] Last Admin: 10/20/15 09:03 Dose: 1 ea Midodrine (Proamatine) 5 mg PO TID [facility] Last Admin: 10/20/15 16:16 Dose: 5 mg Ondansetron HCl (Zofran Inj) 4 mg IVP Q6 PRN PRN Reason: Nausea/Vomiting Tramadol HCl (Ultram) 50 mg PO Q6 PRN PRN Reason: Pain, moderate (4-7) Last Admin: 10/20/15 13:11 Dose: 50 mg - Labs Labs: 10/18/15 11:33 10/18/15 11:33 - Head Exam Head Exam: NORMAL INSPECTION - Eye Exam Pupil Exam: NORMAL ACCOMODATION - Respiratory Exam Respiratory Exam: NORMAL BREATHING PATTERN - Cardiovascular Exam Cardiovascular Exam: REGULAR RHYTHM - GI/Abdominal Exam GI & Abdominal Exam: Normal Bowel Sounds Assessment and Plan - Assessment and Plan (Free Text) Assessment: MSA Parkinson Dx More alert today Seen by Neurology discussed at length Pt needs PT UTI Urine culture Proteus IV ABX Rocephin L shoulder pain x rays neg R leg pain LBP Hx of HNP Neuro consult venous doppler negative PT R shoulder pain Dislocation Ortho PT Disposition?? Pt is competent Social service and family involved Pt is [place] [employer] RLE rash Dermatiis vs cellulitis?? 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
[2015-10-21] MEDS: Lidocaine 5% Patch TD SCH (09:12)
--- NOTE | 2015-10-21 12:52 | CP.PCM.PN ---
Subjective - Date & Time of Evaluation Date of Evaluation: 10/21/15 Time of Evaluation: 12:00 - Subjective Subjective: no fever feels better pain controlled no Cp no SOB no abd pain Objective - Vital Signs/Intake and Output Vital Signs (last 24 hours): Temp Pulse Resp BP Pulse Ox 97.7 F 71 20 136/75 96 10/21/15 08:41 10/21/15 08:41 10/21/15 08:41 10/21/15 08:41 10/21/15 08:41 - Medications Medications: Current Medications Acetaminophen (Tylenol 325mg Tab) 650 mg PO Q4 PRN PRN Reason: Fever Last Admin: 10/04/15 17:43 Dose: 650 mg Clonazepam (Klonopin) 0.5 mg PO DAILY [facility] Last Admin: 10/21/15 08:39 Dose: 0.5 mg Cyclobenzaprine HCl (Flexeril) 10 mg PO HS PRN PRN Reason: Muscle spasm Docusate Sodium (Colace) 100 mg PO BID [facility] Last Admin: 10/21/15 08:33 Dose: 100 mg Fluocinonide (Lidex 0.05% Oint) 1 applic TOP BID [facility] Last Admin: 10/21/15 09:11 Dose: 1 applic Gabapentin (Neurontin) 600 mg PO TID [facility] Last Admin: 10/21/15 09:14 Dose: 600 mg Home Med (Patient's Own Medication) 1 unit PO TID@0500,1300,2100 [facility] Last Admin: 10/21/15 07:19 Dose: 1 unit Ceftriaxone Sodium 1 gm/ (Sodium Chloride) 100 mls @ 100 mls/hr IVPB DAILY [facility] Last Admin: 10/21/15 09:17 Dose: 100 mls/hr Lactulose (Enulose) 10 gm PO DAILY PRN PRN Reason: Constipation Lidocaine (Lidoderm) 1 ea TD DAILY [facility] Last Admin: 10/21/15 09:12 Dose: Not Given Midodrine (Proamatine) 5 mg PO TID [facility] Last Admin: 10/21/15 09:13 Dose: 5 mg Ondansetron HCl (Zofran Inj) 4 mg IVP Q6 PRN PRN Reason: Nausea/Vomiting Tramadol HCl (Ultram) 50 mg PO Q6 PRN PRN Reason: Pain, moderate (4-7) Last Admin: 10/21/15 03:54 Dose: 50 mg - Labs Labs: 10/18/15 11:33 10/18/15 11:33 - Constitutional Appears: No Acute Distress - Head Exam Head Exam: NORMAL INSPECTION, NORMOCEPHALIC - Eye Exam Eye Exam: EOMI, Normal appearance Pupil Exam: NORMAL ACCOMODATION - ENT Exam ENT Exam: Mucous Membranes Moist, Normal External Ear Exam - Neck Exam Neck Exam: Full ROM. absent: Meningismus - Respiratory Exam Respiratory Exam: NORMAL BREATHING PATTERN. absent: Respiratory Distress - Cardiovascular Exam Cardiovascular Exam: REGULAR RHYTHM, +S1, +S2 - GI/Abdominal Exam GI & Abdominal Exam: Soft, Normal Bowel Sounds. absent: Tenderness - Extremities Exam Extremities Exam: Normal Capillary Refill. absent: Calf Tenderness, Pedal Edema - Back Exam Back Exam: absent: CVA tenderness (L), CVA tenderness (R) - Neurological Exam Neurological Exam: Alert, Awake Additional comments: oriented to person and place - Psychiatric Exam Psychiatric exam: Normal Affect, Normal Mood - Skin Skin Exam: Dry, Normal Color, Warm Assessment and Plan (1) Fall Status: Acute (2) Parkinson disease Status: Chronic (3) DVT prophylaxis Status: Acute (4) Thrombocytopenia Status: Chronic (5) Atrial fibrillation Status: Resolved (6) Orthostasis Status: Chronic (7) UTI (urinary tract infection) Status: Acute - Assessment and Plan (Free Text) Assessment: 1.UTI , resolving --Proteus mirabilis in urine ID on consult On Rocephin 2. Fall Hx of frequent fall due to gait disturbance due to advanced Parkinson's PT while in hospital for gait training Will need placement to [facility] -patient has signed documents needed, SW following. Await plan for DC when Acceptance of financial documents 3. Osteoarthritis Biltaral Shoulder pain with neck pain and muscle spasm Lidoderm patch and flexeril HS heating pad OT for ROM and exercise continue tylenol prn and Ultram 4.Parkinson disease, chronic Continue Carbidopa/Levodopa 5.Thrombocytopenia, resolved unclear etiology Stable 6. Continue Seroquel psych consulted, patient is competent and has capacity 7.Hypotension hx of Orthostasis, Shy Drager Syndrome Continue Midodrine 8. Shingles improved Isolation discontinued topical hydrocortisone ID was consulted Pain management as needed 9. DVT prophylaxis Lovenox
[2015-10-22] MEDS: Lidocaine 5% Patch TD SCH (09:11)
--- NOTE | 2015-10-22 16:19 | CP.PCM.PN ---
Subjective - Date & Time of Evaluation Date of Evaluation: 10/22/15 Time of Evaluation: 16:00 - Subjective Subjective: Patient seen bedside. Elderly male lying in bed complaining of headache pain over his left shoulder and sking when is he going to get out of bed and start walking.With upper extremity tremors. BP stable, afebrile No acute issues overnight Objective - Vital Signs/Intake and Output Vital Signs (last 24 hours): Temp Pulse Resp BP Pulse Ox 97.2 F L 80 18 140/65 97 10/22/15 08:56 10/22/15 08:56 10/22/15 08:56 10/22/15 08:56 10/22/15 08:56 - Medications Medications: Current Medications Acetaminophen (Tylenol 325mg Tab) 650 mg PO Q4 PRN PRN Reason: Fever Last Admin: 10/04/15 17:43 Dose: 650 mg Clonazepam (Klonopin) 0.5 mg PO DAILY [facility] Last Admin: 10/21/15 08:39 Dose: 0.5 mg Cyclobenzaprine HCl (Flexeril) 10 mg PO HS PRN PRN Reason: Muscle spasm Docusate Sodium (Colace) 100 mg PO BID [facility] Last Admin: 10/22/15 09:10 Dose: 100 mg Fluocinonide (Lidex 0.05% Oint) 1 applic TOP BID [facility] Last Admin: 10/21/15 17:03 Dose: 1 applic Gabapentin (Neurontin) 600 mg PO TID [facility] Last Admin: 10/22/15 09:12 Dose: 600 mg Home Med (Patient's Own Medication) 1 unit PO TID@0500,1300,2100 [facility] Last Admin: 10/22/15 05:45 Dose: 1 unit Lactulose (Enulose) 10 gm PO DAILY PRN PRN Reason: Constipation Lidocaine (Lidoderm) 1 ea TD DAILY [facility] Last Admin: 10/22/15 09:11 Dose: Not Given Midodrine (Proamatine) 5 mg PO TID [facility] Last Admin: 10/22/15 09:13 Dose: Not Given Ondansetron HCl (Zofran Inj) 4 mg IVP Q6 PRN PRN Reason: Nausea/Vomiting Tramadol HCl (Ultram) 50 mg PO Q6 PRN PRN Reason: Pain, moderate (4-7) Last Admin: 04/09/16 03:54 Dose: 50 mg - Labs Labs: 10/18/15 11:33 10/18/15 11:33 - Constitutional Appears: Agitated, Confused, Chronically Ill - Head Exam Head Exam: ATRAUMATIC, NORMOCEPHALIC - Eye Exam Eye Exam: EOMI, PERRL - ENT Exam ENT Exam: Mucous Membranes Moist - Neck Exam Neck Exam: absent: Full ROM - Respiratory Exam Respiratory Exam: Clear to Ausculation Bilateral, NORMAL BREATHING PATTERN. absent: Rales, Rhonchi, Wheezes - Cardiovascular Exam Cardiovascular Exam: REGULAR RHYTHM, +S1, +S2. absent: JVD - GI/Abdominal Exam GI & Abdominal Exam: Soft, Normal Bowel Sounds. absent: Guarding, Tenderness, Rebound - Rectal Exam Rectal Exam: Deferred - Extremities Exam Extremities Exam: Normal Inspection. absent: Pedal Edema - Neurological Exam Neurological Exam: Alert, Awake - Psychiatric Exam Psychiatric exam: Agitated, Anxious, Flat Affect - Skin Skin Exam: Dry, Warm Assessment and Plan (1) Fall Status: Acute (2) Parkinson disease Status: Chronic (3) Thrombocytopenia Status: Chronic (4) Depression Status: Chronic (5) Hypotension Status: Chronic (6) DVT prophylaxis Status: Acute - Assessment and Plan (Free Text) Assessment: 1.UTI , resolved Proteus mirabilis in urine ID consulted received Rocephin 2. Fall Hx of frequent fall due to gait disturbance due to advanced Parkinson's PT while in hospital for gait training Will need placement to [facility] -patient has signed documents needed, SW following. Await plan for DC when Acceptance of financial documents 3. Osteoarthritis Biltaral Shoulder pain with neck pain and muscle spasm Lidoderm patch( PATIENT REFUSING ) and flexeril HS heating pad OT for ROM and exercise continue tylenol prn and Ultram 4.Parkinson disease, chronic Continue Carbidopa/Levodopa With tremors , axial rigidity and slow thought process 5.Thrombocytopenia, resolved unclear etiology Stable 6. Continue Seroquel psych consulted, patient is competent and has capacity 7.Hypotension hx of Orthostasis, Shy Drager Syndrome Continue Midodrine 8. Shingles improved Isolation discontinued topical hydrocortisone ID was consulted Pain management as needed 9. DVT prophylaxis SCD no anticoagulation due to low plt
[2015-10-23] MEDS: Lidocaine 5% Patch TD SCH (09:34)
--- NOTE | 2015-10-23 19:35 | CP.PCM.PN ---
Subjective - Date & Time of Evaluation Date of Evaluation: 10/23/15 Time of Evaluation: 22:22 - Subjective Subjective: No change in status Objective - Vital Signs/Intake and Output Vital Signs (last 24 hours): Temp Pulse Resp BP Pulse Ox 97.3 F L 81 20 122/67 98 10/23/15 16:49 10/23/15 16:49 10/23/15 16:49 10/23/15 16:49 10/23/15 16:49 - Medications Medications: Current Medications Acetaminophen (Tylenol 325mg Tab) 650 mg PO Q4 PRN PRN Reason: Fever Last Admin: 10/04/15 17:43 Dose: 650 mg Clonazepam (Klonopin) 0.5 mg PO DAILY [facility] Last Admin: 10/23/15 11:46 Dose: 0.5 mg Cyclobenzaprine HCl (Flexeril) 10 mg PO HS PRN PRN Reason: Muscle spasm Docusate Sodium (Colace Liquid) 100 mg PO BID [facility] Last Admin: 10/23/15 16:37 Dose: Not Given Fluocinonide (Lidex 0.05% Oint) 1 applic TOP BID [facility] Last Admin: 10/23/15 16:38 Dose: 1 applic Gabapentin (Neurontin) 600 mg PO TID [facility] Last Admin: 10/23/15 16:38 Dose: 600 mg Home Med (Patient's Own Medication) 1 unit PO TID@0500,1300,2100 [facility] Last Admin: 10/23/15 13:17 Dose: 1 unit Lactulose (Enulose) 10 gm PO DAILY PRN PRN Reason: Constipation Lidocaine (Lidoderm) 1 ea TD DAILY [facility] Last Admin: 10/23/15 09:34 Dose: 1 ea Midodrine (Proamatine) 5 mg PO TID [facility] Last Admin: 10/23/15 16:38 Dose: 5 mg Ondansetron HCl (Zofran Inj) 4 mg IVP Q6 PRN PRN Reason: Nausea/Vomiting Tramadol HCl (Ultram) 50 mg PO Q6 PRN PRN Reason: Pain, moderate (4-7) Last Admin: 10/23/15 15:20 Dose: 50 mg - Labs Labs: 10/18/15 11:33 10/18/15 11:33 - Respiratory Exam Respiratory Exam: NORMAL BREATHING PATTERN - Cardiovascular Exam Cardiovascular Exam: REGULAR RHYTHM - GI/Abdominal Exam GI & Abdominal Exam: Normal Bowel Sounds Assessment and Plan - Assessment and Plan (Free Text) Assessment: MSA Parkinson Dx Seen by Neurology discussed at length Pt needs PT UTI Urine culture Proteus IV ABX Rocephin L shoulder pain x rays neg R leg pain LBP Hx of HNP Neuro consult venous doppler negative PT R shoulder pain Dislocation Ortho PT Disposition?? Pt is competent Social service and family involved Pt is [place] [employer] RLE rash Dermatiis vs cellulitis?? 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
[2015-10-24] MEDS: Lidocaine 5% Patch TD SCH (09:03)
--- NOTE | 2015-10-24 19:29 | CP.PCM.PN ---
Subjective - Date & Time of Evaluation Date of Evaluation: 10/24/15 Time of Evaluation: 22:22 - Subjective Subjective: Doing well Objective - Vital Signs/Intake and Output Vital Signs (last 24 hours): Temp Pulse Resp BP Pulse Ox 97.2 F L 82 20 125/54 L 97 10/24/15 16:58 10/24/15 16:58 10/24/15 16:58 10/24/15 16:58 10/24/15 16:58 - Medications Medications: Current Medications Acetaminophen (Tylenol 325mg Tab) 650 mg PO Q4 PRN PRN Reason: Fever Last Admin: 10/04/15 17:43 Dose: 650 mg Clonazepam (Klonopin) 0.5 mg PO DAILY [facility] Last Admin: 10/24/15 09:05 Dose: 0.5 mg Cyclobenzaprine HCl (Flexeril) 10 mg PO HS PRN PRN Reason: Muscle spasm Docusate Sodium (Colace Liquid) 100 mg PO BID [facility] Last Admin: 10/24/15 16:46 Dose: 100 mg Fluocinonide (Lidex 0.05% Oint) 1 applic TOP BID [facility] Last Admin: 10/24/15 16:46 Dose: 1 applic Gabapentin (Neurontin) 600 mg PO TID [facility] Last Admin: 10/24/15 16:46 Dose: 600 mg Home Med (Patient's Own Medication) 1 unit PO TID@0500,1300,2100 [facility] Last Admin: 10/24/15 12:18 Dose: 1 unit Lactulose (Enulose) 10 gm PO DAILY PRN PRN Reason: Constipation Lidocaine (Lidoderm) 1 ea TD DAILY [facility] Last Admin: 10/24/15 09:03 Dose: 1 ea Midodrine (Proamatine) 5 mg PO TID [facility] Last Admin: 10/24/15 16:47 Dose: 5 mg Ondansetron HCl (Zofran Inj) 4 mg IVP Q6 PRN PRN Reason: Nausea/Vomiting Tramadol HCl (Ultram) 50 mg PO Q6 PRN PRN Reason: Pain, moderate (4-7) Last Admin: 10/23/15 15:20 Dose: 50 mg - Labs Labs: 10/18/15 11:33 10/18/15 11:33 - Respiratory Exam Respiratory Exam: NORMAL BREATHING PATTERN - Cardiovascular Exam Cardiovascular Exam: REGULAR RHYTHM - GI/Abdominal Exam GI & Abdominal Exam: Normal Bowel Sounds Assessment and Plan - Assessment and Plan (Free Text) Assessment: MSA Parkinson Dx Seen by Neurology discussed at length Pt needs PT UTI Urine culture Proteus IV ABX Rocephin L shoulder pain x rays neg R leg pain LBP Hx of HNP Neuro consult venous doppler negative PT R shoulder pain Dislocation Ortho PT Disposition?? Pt is competent Social service and family involved Pt is [place] RLE rash Dermatiis vs cellulitis?? 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
[2015-10-25] MEDS: Lidocaine 5% Patch TD SCH (08:26)
--- NOTE | 2015-10-25 19:10 | CP.PCM.PN ---
Subjective - Date & Time of Evaluation Date of Evaluation: 10/25/15 Time of Evaluation: 22:22 - Subjective Subjective: Lying in bed Objective - Vital Signs/Intake and Output Vital Signs (last 24 hours): Temp Pulse Resp BP Pulse Ox 97.2 F L 80 20 139/77 95 10/25/15 16:22 10/25/15 16:22 10/25/15 16:22 10/25/15 16:22 10/25/15 16:22 - Medications Medications: Current Medications Acetaminophen (Tylenol 325mg Tab) 650 mg PO Q4 PRN PRN Reason: Fever Last Admin: 10/04/15 17:43 Dose: 650 mg Clonazepam (Klonopin) 0.5 mg PO DAILY [facility] Last Admin: 10/25/15 08:25 Dose: 0.5 mg Cyclobenzaprine HCl (Flexeril) 10 mg PO HS PRN PRN Reason: Muscle spasm Docusate Sodium (Colace Liquid) 100 mg PO BID [facility] Last Admin: 10/25/15 16:05 Dose: 100 mg Fluocinonide (Lidex 0.05% Oint) 1 applic TOP BID [facility] Last Admin: 10/25/15 16:05 Dose: 1 applic Gabapentin (Neurontin) 600 mg PO TID [facility] Last Admin: 10/25/15 16:06 Dose: 600 mg Home Med (Patient's Own Medication) 1 unit PO TID@0500,1300,2100 [facility] Last Admin: 10/25/15 11:59 Dose: 1 unit Lactulose (Enulose) 10 gm PO DAILY PRN PRN Reason: Constipation Lidocaine (Lidoderm) 1 ea TD DAILY [facility] Last Admin: 10/25/15 08:26 Dose: 1 ea Midodrine (Proamatine) 5 mg PO TID [facility] Last Admin: 10/25/15 16:06 Dose: 5 mg Ondansetron HCl (Zofran Inj) 4 mg IVP Q6 PRN PRN Reason: Nausea/Vomiting Tramadol HCl (Ultram) 50 mg PO Q6 PRN PRN Reason: Pain, moderate (4-7) Last Admin: 10/25/15 05:58 Dose: 50 mg - Labs Labs: 10/18/15 11:33 10/18/15 11:33 - Respiratory Exam Respiratory Exam: NORMAL BREATHING PATTERN - Cardiovascular Exam Cardiovascular Exam: REGULAR RHYTHM - GI/Abdominal Exam GI & Abdominal Exam: Normal Bowel Sounds Assessment and Plan - Assessment and Plan (Free Text) Assessment: MSA Parkinson Dx Seen by Neurology discussed at length Pt needs PT- UTI Urine culture Proteus IV ABX Rocephin L shoulder pain x rays neg R leg pain LBP Hx of HNP Neuro consult venous doppler negative PT R shoulder pain Dislocation Ortho PT Disposition?? Pt is competent Social service and family involved Pt is [place] RLE rash Dermatiis vs cellulitis?? 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
[2015-10-26] MEDS: Lidocaine 5% Patch TD SCH (11:23)
--- NOTE | 2015-10-26 20:47 | CP.PCM.PN ---
Subjective - Date & Time of Evaluation Date of Evaluation: 10/26/15 Time of Evaluation: 22:22 - Subjective Subjective: Resting in bed Objective - Vital Signs/Intake and Output Vital Signs (last 24 hours): Temp Pulse Resp BP Pulse Ox 97.7 F 93 H 20 154/71 H 100 10/26/15 17:29 10/26/15 17:29 10/26/15 17:29 10/26/15 17:29 10/26/15 17:29 - Medications Medications: Current Medications Acetaminophen (Tylenol 325mg Tab) 650 mg PO Q4 PRN PRN Reason: Fever Last Admin: 10/04/15 17:43 Dose: 650 mg Clonazepam (Klonopin) 0.5 mg PO DAILY [facility] Last Admin: 10/26/15 11:18 Dose: 0.5 mg Cyclobenzaprine HCl (Flexeril) 10 mg PO HS PRN PRN Reason: Muscle spasm Docusate Sodium (Colace Liquid) 100 mg PO BID [facility] Last Admin: 10/26/15 19:26 Dose: Not Given Fluocinonide (Lidex 0.05% Oint) 1 applic TOP BID [facility] Last Admin: 10/26/15 16:27 Dose: 1 applic Gabapentin (Neurontin) 600 mg PO TID [facility] Last Admin: 10/26/15 16:28 Dose: 600 mg Home Med (Patient's Own Medication) 1 unit PO TID@0500,1300,2100 [facility] Last Admin: 10/26/15 13:31 Dose: 1 unit Lactulose (Enulose) 10 gm PO DAILY PRN PRN Reason: Constipation Lidocaine (Lidoderm) 1 ea TD DAILY [facility] Last Admin: 10/26/15 11:23 Dose: Not Given Midodrine (Proamatine) 5 mg PO TID [facility] Last Admin: 10/26/15 16:29 Dose: 5 mg Ondansetron HCl (Zofran Inj) 4 mg IVP Q6 PRN PRN Reason: Nausea/Vomiting Tramadol HCl (Ultram) 50 mg PO Q6 PRN PRN Reason: Pain, moderate (4-7) Last Admin: 10/26/15 11:18 Dose: 50 mg - Labs Labs: 10/18/15 11:33 10/18/15 11:33 - Respiratory Exam Respiratory Exam: NORMAL BREATHING PATTERN - Cardiovascular Exam Cardiovascular Exam: REGULAR RHYTHM - GI/Abdominal Exam GI & Abdominal Exam: Normal Bowel Sounds Assessment and Plan - Assessment and Plan (Free Text) Assessment: MSA Parkinson Dx Seen by Neurology discussed at length Pt needs PT- UTI Urine culture Proteus IV ABX Rocephin L shoulder pain x rays neg R leg pain LBP Hx of HNP Neuro consult venous doppler negative PT R shoulder pain Dislocation Ortho PT Disposition?? Pt is competent Social service and family involved Pt is [place] RLE rash Dermatiis vs cellulitis?? 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
[2015-10-27] MEDS: Lidocaine 5% Patch TD SCH (08:41)
--- NOTE | 2015-10-27 19:42 | CP.PCM.PN ---
Subjective - Date & Time of Evaluation Date of Evaluation: 10/27/15 Time of Evaluation: 22:22 - Subjective Subjective: No PT Objective - Vital Signs/Intake and Output Vital Signs (last 24 hours): Temp Pulse Resp BP Pulse Ox 97.6 F 85 18 109/71 96 10/27/15 07:43 10/27/15 07:43 10/27/15 07:43 10/27/15 07:43 10/27/15 07:43 - Medications Medications: Current Medications Acetaminophen (Tylenol 325mg Tab) 650 mg PO Q4 PRN PRN Reason: Fever Last Admin: 10/04/15 17:43 Dose: 650 mg Clonazepam (Klonopin) 0.5 mg PO DAILY [facility] Last Admin: 10/27/15 08:40 Dose: 0.5 mg Cyclobenzaprine HCl (Flexeril) 10 mg PO HS PRN PRN Reason: Muscle spasm Docusate Sodium (Colace Liquid) 100 mg PO BID [facility] Last Admin: 10/27/15 16:22 Dose: 100 mg Fluocinonide (Lidex 0.05% Oint) 1 applic TOP BID [facility] Last Admin: 10/27/15 16:22 Dose: 1 applic Gabapentin (Neurontin) 600 mg PO TID [facility] Last Admin: 10/27/15 16:22 Dose: 600 mg Home Med (Patient's Own Medication) 1 unit PO TID@0500,1300,2100 [facility] Last Admin: 10/27/15 12:18 Dose: 1 unit Lactulose (Enulose) 10 gm PO DAILY PRN PRN Reason: Constipation Lidocaine (Lidoderm) 1 ea TD DAILY [facility] Last Admin: 10/27/15 08:41 Dose: 1 ea Midodrine (Proamatine) 5 mg PO TID [facility] Last Admin: 10/27/15 16:22 Dose: 5 mg Tramadol HCl (Ultram) 50 mg PO Q6 PRN PRN Reason: Pain, moderate (4-7) Last Admin: 10/27/15 08:40 Dose: 50 mg - Labs Labs: 10/18/15 11:33 10/18/15 11:33 - Respiratory Exam Respiratory Exam: NORMAL BREATHING PATTERN - Cardiovascular Exam Cardiovascular Exam: REGULAR RHYTHM - GI/Abdominal Exam GI & Abdominal Exam: Normal Bowel Sounds Assessment and Plan - Assessment and Plan (Free Text) Assessment: MSA Parkinson Dx Seen by Neurology discussed at length Pt needs PT- UTI Urine culture Proteus IV ABX Rocephin L shoulder pain x rays neg R leg pain LBP Hx of HNP Neuro consult venous doppler negative PT R shoulder pain Dislocation Ortho PT Disposition?? Pt is competent Social service and family involved Pt is [place] R[place] rash Dermatiis vs cellulitis?? 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
[2015-10-28] MEDS: Lidocaine 5% Patch TD SCH ×2 (09:24→09:28)
--- NOTE | 2015-10-28 10:30 | CP.PCM.PN ---
Subjective - Date & Time of Evaluation Date of Evaluation: 10/28/15 Time of Evaluation: 10:00 - Subjective Subjective: Patient seen and examined bedside. Elderly male, chronically ill lying in bed complaining of pain al over his body and especially frontal headache pressure like. Hemodynamically stable,afebrile. No acute issues overnight.With upper extremity resting tremors and axial rigidity. Objective - Vital Signs/Intake and Output Vital Signs (last 24 hours): Temp Pulse Resp BP Pulse Ox 97.3 F L 81 20 120/64 96 10/28/15 08:20 10/28/15 08:20 10/28/15 08:20 10/28/15 08:20 10/28/15 08:20 - Medications Medications: Current Medications Acetaminophen (Tylenol 325mg Tab) 650 mg PO Q4 PRN PRN Reason: Fever Last Admin: 10/04/15 17:43 Dose: 650 mg Clonazepam (Klonopin) 0.5 mg PO DAILY [facility] Last Admin: 10/28/15 09:24 Dose: 0.5 mg Cyclobenzaprine HCl (Flexeril) 10 mg PO HS PRN PRN Reason: Muscle spasm Docusate Sodium (Colace Liquid) 100 mg PO BID [facility] Last Admin: 10/28/15 09:24 Dose: 100 mg Fluocinonide (Lidex 0.05% Oint) 1 applic TOP BID [facility] Last Admin: 10/28/15 09:24 Dose: 1 applic Gabapentin (Neurontin) 600 mg PO TID [facility] Last Admin: 10/28/15 09:25 Dose: 600 mg Home Med (Patient's Own Medication) 1 unit PO TID@0500,1300,2100 [facility] Last Admin: 10/28/15 06:05 Dose: 1 unit Lactulose (Enulose) 10 gm PO DAILY PRN PRN Reason: Constipation Lidocaine (Lidoderm) 1 ea TD DAILY [facility] Last Admin: 10/28/15 09:28 Dose: Not Given Midodrine (Proamatine) 5 mg PO TID [facility] Last Admin: 10/28/15 09:25 Dose: 5 mg Tramadol HCl (Ultram) 50 mg PO Q6 PRN PRN Reason: Pain, moderate (4-7) Last Admin: 10/27/15 08:40 Dose: 50 mg - Labs Labs: 10/18/15 11:33 10/18/15 11:33 - Constitutional Appears: Chronically Ill - Head Exam Head Exam: NORMAL INSPECTION, NORMOCEPHALIC - Eye Exam Eye Exam: EOMI, PERRL - ENT Exam ENT Exam: Mucous Membranes Moist, Normal Exam - Neck Exam Neck Exam: Normal Inspection - Respiratory Exam Respiratory Exam: Clear to Ausculation Bilateral, NORMAL BREATHING PATTERN. absent: Rales, Rhonchi, Wheezes - Cardiovascular Exam Cardiovascular Exam: REGULAR RHYTHM, RRR, +S1, +S2. absent: JVD - GI/Abdominal Exam GI & Abdominal Exam: Soft, Normal Bowel Sounds. absent: Guarding, Tenderness, Rebound - Rectal Exam Rectal Exam: Deferred - Extremities Exam Extremities Exam: Normal Inspection. absent: Pedal Edema Additional comments: upper extremity tremors axial rigidity - Neurological Exam Neurological Exam: Alert, Awake. absent: Oriented x3 - Psychiatric Exam Psychiatric exam: Depressed, Flat Affect - Skin Skin Exam: Dry, Warm Assessment and Plan (1) Fall Status: Acute (2) Parkinson disease Status: Chronic (3) Thrombocytopenia Status: Chronic (4) Depression Status: Chronic (5) Hypotension Status: Chronic (6) DVT prophylaxis Status: Acute - Assessment and Plan (Free Text) Assessment: 85 y/o male with history Parkinsonism was admitted originally with shingles. [facility] since he can not take care of self at home. 1.UTI , resolved Proteus mirabilis in urine ID consulted received Rocephin 2. Fall Hx of frequent fall due to gait disturbance due to advanced Parkinson's PT while in hospital for gait training Will need placement to [facility] -patient has signed documents needed, SW following. Await plan for DC when Acceptance of financial documents 3. Osteoarthritis Biltaral Shoulder pain with neck pain and muscle spasm Lidoderm patch( PATIENT REFUSING ) and flexeril HS heating pad OT for ROM and exercise continue tylenol prn and Ultram on gabapentin 4.Parkinson disease, chronic Continue Rytary With less tyremors but with axial rigidity and slow thought process psych consulted, patient is competent and has capacity Continue clonazepam 5.Thrombocytopenia, resolved ITP Stable 6.Hypotension hx of Orthostasis, Shy Drager Syndrome Continue Midodrine 7. Shingles improved Isolation discontinued topical hydrocortisone ID was consulted Pain management as needed 8. DVT prophylaxis SCD no anticoagulation due to low plt
--- NOTE | 2015-10-29 08:42 | CP.PCM.PN ---
Subjective - Date & Time of Evaluation Date of Evaluation: 10/29/15 Time of Evaluation: 09:45 - Subjective Subjective: Patient seen in AM. Lying comfortably in bed , having breakfast. States feels a little better. Hemodynamically stable, afebrile. No acute issues overnight. Objective - Vital Signs/Intake and Output Vital Signs (last 24 hours): Temp Pulse Resp BP Pulse Ox 98.4 F 71 20 107/61 97 10/29/15 07:41 10/29/15 07:41 10/29/15 07:41 10/29/15 07:41 10/29/15 07:41 - Medications Medications: Current Medications Acetaminophen (Tylenol 325mg Tab) 650 mg PO Q4 PRN PRN Reason: Fever Last Admin: 10/04/15 17:43 Dose: 650 mg Clonazepam (Klonopin) 0.5 mg PO DAILY [facility] Last Admin: 10/28/15 09:24 Dose: 0.5 mg Cyclobenzaprine HCl (Flexeril) 10 mg PO HS PRN PRN Reason: Muscle spasm Docusate Sodium (Colace Liquid) 100 mg PO BID [facility] Last Admin: 10/28/15 16:12 Dose: Not Given Fluocinonide (Lidex 0.05% Oint) 1 applic TOP BID [facility] Last Admin: 10/28/15 16:17 Dose: 1 applic Gabapentin (Neurontin) 600 mg PO TID [facility] Last Admin: 10/28/15 16:17 Dose: 600 mg Home Med (Patient's Own Medication) 1 unit PO TID@0500,1300,2100 [facility] Last Admin: 10/29/15 05:38 Dose: 1 unit Lactulose (Enulose) 10 gm PO DAILY PRN PRN Reason: Constipation Lidocaine (Lidoderm) 1 ea TD DAILY [facility] Last Admin: 10/28/15 09:28 Dose: Not Given Midodrine (Proamatine) 5 mg PO TID [facility] Last Admin: 10/28/15 16:17 Dose: 5 mg Tramadol HCl (Ultram) 50 mg PO Q6 PRN PRN Reason: Pain, moderate (4-7) Last Admin: 10/28/15 10:30 Dose: 50 mg - Labs Labs: 10/18/15 11:33 10/18/15 11:33 - Constitutional Appears: No Acute Distress, Chronically Ill, Other (elderly male lying in bed in NAD, appears weak with tremors and axial rigidity) - Eye Exam Eye Exam: EOMI, PERRL Pupil Exam: NORMAL ACCOMODATION - ENT Exam ENT Exam: Mucous Membranes Moist, Normal Exam - Neck Exam Neck Exam: Normal Inspection - Respiratory Exam Respiratory Exam: Clear to Ausculation Bilateral, NORMAL BREATHING PATTERN. absent: Rales, Rhonchi, Wheezes - Cardiovascular Exam Cardiovascular Exam: REGULAR RHYTHM, RRR, +S1, +S2. absent: JVD - GI/Abdominal Exam GI & Abdominal Exam: Soft, Normal Bowel Sounds. absent: Tenderness, Rebound - Rectal Exam Rectal Exam: Deferred - Extremities Exam Extremities Exam: Normal Inspection. absent: Pedal Edema - Neurological Exam Neurological Exam: Alert, Awake Additional comments: axial rigidity and upper extremity tremors - Psychiatric Exam Psychiatric exam: Depressed, Flat Affect - Skin Skin Exam: Dry, Warm Assessment and Plan (1) Fall Status: Acute (2) Parkinson disease Status: Chronic (3) Thrombocytopenia Status: Chronic (4) Depression Status: Chronic (5) Hypotension Status: Chronic (6) DVT prophylaxis Status: Acute - Assessment and Plan (Free Text) Assessment: Assessment: 85 y/o male with history Parkinsonism was admitted originally with shingles. Patient currently waiting for discharge to [place] since he can not take care of self at home. 1.UTI , resolved Proteus mirabilis in urine ID consulted received Rocephin 2. Fall Hx of frequent fall due to gait disturbance due to advanced Parkinson's PT while in hospital for gait training Will need placement to [facility] -patient has signed documents needed, SW following. Await plan for DC when Acceptance of financial documents 3. Osteoarthritis Biltaral Shoulder pain with neck pain and muscle spasm Lidoderm patch( PATIENT REFUSING ) and flexeril HS heating pad OT for ROM and exercise continue tylenol prn and Ultram on gabapentin 4.Parkinson disease, chronic Continue Rytary With less tyremors but with axial rigidity and slow thought process psych consulted, patient is competent and has capacity Continue clonazepam 5.Thrombocytopenia, resolved ITP Stable 6.Hypotension hx of Orthostasis, Shy Drager Syndrome Continue Midodrine 7. Shingles improved Isolation discontinued topical hydrocortisone ID was consulted Pain management as needed 8. DVT prophylaxis SCD no anticoagulation due to low plt
[2015-10-29] MEDS: Lidocaine 5% Patch TD SCH (08:50)
[2015-10-30] MEDS: Lidocaine 5% Patch TD SCH (09:17)
--- NOTE | 2015-10-30 20:08 | CP.PCM.PN ---
Subjective - Date & Time of Evaluation Date of Evaluation: 10/30/15 Time of Evaluation: 22:22 - Subjective Subjective: Improved Objective - Vital Signs/Intake and Output Vital Signs (last 24 hours): Temp Pulse Resp BP Pulse Ox 97.7 F 87 20 103/64 96 10/30/15 17:06 10/30/15 17:06 10/30/15 17:06 10/30/15 17:06 10/30/15 17:06 - Medications Medications: Current Medications Acetaminophen (Tylenol 325mg Tab) 650 mg PO Q4 PRN PRN Reason: Fever Last Admin: 10/04/15 17:43 Dose: 650 mg Clonazepam (Klonopin) 0.5 mg PO DAILY [facility] Last Admin: 10/30/15 09:15 Dose: 0.5 mg Cyclobenzaprine HCl (Flexeril) 10 mg PO HS PRN PRN Reason: Muscle spasm Docusate Sodium (Colace Liquid) 100 mg PO BID [facility] Last Admin: 10/30/15 17:08 Dose: 100 mg Fluocinonide (Lidex 0.05% Oint) 1 applic TOP BID [facility] Last Admin: 10/30/15 17:08 Dose: 1 applic Gabapentin (Neurontin) 600 mg PO TID [facility] Last Admin: 10/30/15 17:08 Dose: 600 mg Home Med (Patient's Own Medication) 1 unit PO TID@0500,1300,2100 [facility] Last Admin: 10/30/15 13:20 Dose: 1 unit Lactulose (Enulose) 10 gm PO DAILY PRN PRN Reason: Constipation Lidocaine (Lidoderm) 1 ea TD DAILY [facility] Last Admin: 10/30/15 09:17 Dose: 1 ea Midodrine (Proamatine) 5 mg PO TID [facility] Last Admin: 10/30/15 17:09 Dose: 5 mg Tramadol HCl (Ultram) 50 mg PO Q6 PRN PRN Reason: Pain, moderate (4-7) Last Admin: 10/28/15 10:30 Dose: 50 mg - Labs Labs: 10/18/15 11:33 10/18/15 11:33 - Respiratory Exam Respiratory Exam: NORMAL BREATHING PATTERN - Cardiovascular Exam Cardiovascular Exam: REGULAR RHYTHM - GI/Abdominal Exam GI & Abdominal Exam: Normal Bowel Sounds Assessment and Plan - Assessment and Plan (Free Text) Assessment: MSA Parkinson Dx Seen by Neurology discussed at length Pt needs PT- UTI Urine culture Proteus IV ABX Rocephin L shoulder pain x rays neg R leg pain LBP Hx of HNP Neuro consult venous doppler negative PT R shoulder pain Dislocation Ortho PT Disposition?? Pt is competent Social service and family involved Pt is [place] RLE rash Dermatiis vs cellulitis?? 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
[2015-10-31] MEDS: Lidocaine 5% Patch TD SCH (09:00)
--- NOTE | 2015-10-31 19:03 | CP.PCM.PN ---
Subjective - Date & Time of Evaluation Date of Evaluation: 10/31/15 Time of Evaluation: 22:22 - Subjective Subjective: resting in bed Objective - Vital Signs/Intake and Output Vital Signs (last 24 hours): Temp Pulse Resp BP Pulse Ox 96.8 F L 81 20 130/76 100 10/31/15 17:54 10/31/15 17:54 10/31/15 17:54 10/31/15 17:54 10/31/15 17:54 - Medications Medications: Current Medications Acetaminophen (Tylenol 325mg Tab) 650 mg PO Q4 PRN PRN Reason: Fever Last Admin: 10/04/15 17:43 Dose: 650 mg Clonazepam (Klonopin) 0.5 mg PO DAILY [facility] Last Admin: 10/31/15 09:31 Dose: 0.5 mg Cyclobenzaprine HCl (Flexeril) 10 mg PO HS PRN PRN Reason: Muscle spasm Docusate Sodium (Colace Liquid) 100 mg PO BID [facility] Last Admin: 10/31/15 17:00 Dose: 100 mg Fluocinonide (Lidex 0.05% Oint) 1 applic TOP BID [facility] Last Admin: 10/31/15 17:00 Dose: 1 applic Gabapentin (Neurontin) 600 mg PO TID [facility] Last Admin: 10/31/15 17:00 Dose: 600 mg Home Med (Patient's Own Medication) 1 unit PO TID@0500,1300,2100 [facility] Last Admin: 10/31/15 13:31 Dose: 1 unit Lactulose (Enulose) 10 gm PO DAILY PRN PRN Reason: Constipation Lidocaine (Lidoderm) 1 ea TD DAILY [facility] Last Admin: 10/31/15 09:00 Dose: Not Given Midodrine (Proamatine) 5 mg PO TID [facility] Last Admin: 10/31/15 17:00 Dose: 5 mg Tramadol HCl (Ultram) 50 mg PO Q6 PRN PRN Reason: Pain, moderate (4-7) Last Admin: 10/31/15 09:31 Dose: 50 mg - Labs Labs: 10/18/15 11:33 10/18/15 11:33 - Respiratory Exam Respiratory Exam: NORMAL BREATHING PATTERN - Cardiovascular Exam Cardiovascular Exam: REGULAR RHYTHM - GI/Abdominal Exam GI & Abdominal Exam: Normal Bowel Sounds Assessment and Plan - Assessment and Plan (Free Text) Assessment: MSA Parkinson Dx Seen by Neurology discussed at length UTI Urine culture Proteus IV ABX Rocephin L shoulder pain x rays neg R leg pain LBP Hx of HNP Neuro consult venous doppler negative PT R shoulder pain Dislocation Ortho PT Disposition?? Pt is competent Social service and family involved Pt is [place] RLE rash Dermatiis vs cellulitis?? 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
[2015-11-01] MEDS: Lidocaine 5% Patch TD SCH (08:41)
--- NOTE | 2015-11-01 14:58 | CP.PCM.PN ---
Subjective - Date & Time of Evaluation Date of Evaluation: 11/01/15 Time of Evaluation: 22:22 - Subjective Subjective: Doing well Objective - Vital Signs/Intake and Output Vital Signs (last 24 hours): Temp Pulse Resp BP Pulse Ox 97.1 F L 80 20 120/60 98 11/01/15 08:15 11/01/15 08:15 11/01/15 08:15 11/01/15 08:15 11/01/15 08:15 - Medications Medications: Current Medications Acetaminophen (Tylenol 325mg Tab) 650 mg PO Q4 PRN PRN Reason: Fever Last Admin: 10/04/15 17:43 Dose: 650 mg Clonazepam (Klonopin) 0.5 mg PO DAILY [facility] Last Admin: 11/01/15 08:39 Dose: 0.5 mg Cyclobenzaprine HCl (Flexeril) 10 mg PO HS PRN PRN Reason: Muscle spasm Docusate Sodium (Colace Liquid) 100 mg PO BID [facility] Last Admin: 11/01/15 08:40 Dose: 100 mg Fluocinonide (Lidex 0.05% Oint) 1 applic TOP BID [facility] Last Admin: 11/01/15 08:41 Dose: 1 applic Gabapentin (Neurontin) 600 mg PO TID [facility] Last Admin: 11/01/15 12:15 Dose: 600 mg Home Med (Patient's Own Medication) 1 unit PO TID@0500,1300,2100 [facility] Last Admin: 11/01/15 12:15 Dose: 1 unit Lactulose (Enulose) 10 gm PO DAILY PRN PRN Reason: Constipation Lidocaine (Lidoderm) 1 ea TD DAILY [facility] Last Admin: 11/01/15 08:41 Dose: 1 ea Midodrine (Proamatine) 5 mg PO TID [facility] Last Admin: 11/01/15 12:16 Dose: 5 mg Tramadol HCl (Ultram) 50 mg PO Q6 PRN PRN Reason: Pain, moderate (4-7) Last Admin: 10/31/15 21:28 Dose: 50 mg - Labs Labs: 10/18/15 11:33 10/18/15 11:33 - Respiratory Exam Respiratory Exam: NORMAL BREATHING PATTERN - Cardiovascular Exam Cardiovascular Exam: REGULAR RHYTHM - GI/Abdominal Exam GI & Abdominal Exam: Normal Bowel Sounds Assessment and Plan - Assessment and Plan (Free Text) Assessment: MSA Parkinson Dx PT UTI Urine culture Proteus IV ABX Rocephin L shoulder pain x rays neg R leg pain LBP Hx of HNP Neuro consult venous doppler negative PT R shoulder pain Dislocation Ortho PT Disposition?? Pt is competent Social service and family involved Pt is [place] WW[place] RLE rash Dermatiis vs cellulitis?? 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
[2015-11-02] MEDS: Lidocaine 5% Patch TD SCH (09:00)
--- NOTE | 2015-11-02 21:11 | CP.PCM.PN ---
Subjective - Date & Time of Evaluation Date of Evaluation: 11/02/15 Time of Evaluation: 22:22 - Subjective Subjective: No change Objective - Vital Signs/Intake and Output Vital Signs (last 24 hours): Temp Pulse Resp BP Pulse Ox 97.4 F L 80 18 116/79 97 11/02/15 16:31 11/02/15 16:31 11/02/15 16:31 11/02/15 16:31 11/02/15 16:31 - Medications Medications: Current Medications Acetaminophen (Tylenol 325mg Tab) 650 mg PO Q4 PRN PRN Reason: Fever Last Admin: 10/04/15 17:43 Dose: 650 mg Clonazepam (Klonopin) 0.5 mg PO DAILY [facility] Last Admin: 11/02/15 09:03 Dose: 0.5 mg Cyclobenzaprine HCl (Flexeril) 10 mg PO HS PRN PRN Reason: Muscle spasm Docusate Sodium (Colace Liquid) 100 mg PO BID [facility] Last Admin: 11/02/15 16:49 Dose: 100 mg Fluocinonide (Lidex 0.05% Oint) 1 applic TOP BID [facility] Last Admin: 11/02/15 16:49 Dose: 1 applic Gabapentin (Neurontin) 600 mg PO TID [facility] Last Admin: 11/02/15 16:50 Dose: 600 mg Home Med (Patient's Own Medication) 1 unit PO TID@0500,1300,2100 [facility] Last Admin: 11/02/15 13:14 Dose: 1 unit Lactulose (Enulose) 10 gm PO DAILY PRN PRN Reason: Constipation Lidocaine (Lidoderm) 1 ea TD DAILY [facility] Last Admin: 11/02/15 09:00 Dose: 1 ea Midodrine (Proamatine) 5 mg PO TID [facility] Last Admin: 11/02/15 16:50 Dose: 5 mg Tramadol HCl (Ultram) 50 mg PO Q6 PRN PRN Reason: Pain, moderate (4-7) Last Admin: 11/02/15 13:23 Dose: 50 mg - Labs Labs: 10/18/15 11:33 10/18/15 11:33 - Respiratory Exam Respiratory Exam: NORMAL BREATHING PATTERN - Cardiovascular Exam Cardiovascular Exam: REGULAR RHYTHM - GI/Abdominal Exam GI & Abdominal Exam: Normal Bowel Sounds Assessment and Plan - Assessment and Plan (Free Text) Assessment: MSA Parkinson Dx PT UTI Urine culture Proteus IV ABX Rocephin L shoulder pain x rays neg R leg pain LBP Hx of HNP Neuro consult venous doppler negative PT R shoulder pain Dislocation Ortho PT Disposition?? Pt is competent Social service and family involved Pt is [place] RLE rash Dermatiis vs cellulitis?? 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
[2015-11-03] MEDS: Lidocaine 5% Patch TD SCH (10:06)
--- NOTE | 2015-11-03 18:21 | CP.PCM.PN ---
Subjective - Date & Time of Evaluation Date of Evaluation: 11/03/15 Time of Evaluation: 22:22 - Subjective Subjective: resting in bed Objective - Vital Signs/Intake and Output Vital Signs (last 24 hours): Temp Pulse Resp BP Pulse Ox 97 F L 81 20 125/67 98 11/03/15 16:39 11/03/15 16:39 11/03/15 16:39 11/03/15 16:39 11/03/15 16:39 - Medications Medications: Current Medications Acetaminophen (Tylenol 325mg Tab) 650 mg PO Q4 PRN PRN Reason: Fever Last Admin: 10/04/15 17:43 Dose: 650 mg Clonazepam (Klonopin) 0.5 mg PO DAILY [facility] Last Admin: 11/03/15 10:14 Dose: 0.5 mg Cyclobenzaprine HCl (Flexeril) 10 mg PO HS PRN PRN Reason: Muscle spasm Docusate Sodium (Colace Liquid) 100 mg PO BID [facility] Last Admin: 11/03/15 16:03 Dose: Not Given Fluocinonide (Lidex 0.05% Oint) 1 applic TOP BID [facility] Last Admin: 11/03/15 16:16 Dose: 1 applic Gabapentin (Neurontin) 600 mg PO TID [facility] Last Admin: 11/03/15 16:15 Dose: 600 mg Home Med (Patient's Own Medication) 1 unit PO TID@0500,1300,2100 [facility] Last Admin: 11/03/15 12:59 Dose: 1 unit Lactulose (Enulose) 10 gm PO DAILY PRN PRN Reason: Constipation Lidocaine (Lidoderm) 1 ea TD DAILY [facility] Last Admin: 11/03/15 10:06 Dose: 1 ea Midodrine (Proamatine) 5 mg PO TID [facility] Last Admin: 11/03/15 16:15 Dose: 5 mg Tramadol HCl (Ultram) 50 mg PO Q6 PRN PRN Reason: Pain, moderate (4-7) Last Admin: 11/03/15 13:03 Dose: 50 mg - Labs Labs: 10/18/15 11:33 10/18/15 11:33 - Respiratory Exam Respiratory Exam: NORMAL BREATHING PATTERN - Cardiovascular Exam Cardiovascular Exam: REGULAR RHYTHM - GI/Abdominal Exam GI & Abdominal Exam: Normal Bowel Sounds Assessment and Plan - Assessment and Plan (Free Text) Assessment: MSA Parkinson Dx PT UTI Urine culture Proteus IV ABX Rocephin L shoulder pain x rays neg R leg pain LBP Hx of HNP Neuro consult venous doppler negative PT R shoulder pain Dislocation Ortho PT Disposition?? Pt is competent Social service and family involved Pt is [place] RLE rash Dermatiis vs cellulitis?? ID consult appreciated
[2015-11-05] MEDS: Lidocaine 5% Patch TD SCH ×2 (08:23→09:18)
[2015-11-06] MEDS: Lidocaine 5% Patch TD SCH (08:22)
--- NOTE | 2015-11-06 17:30 | CP.PCM.PN ---
Subjective - Date & Time of Evaluation Date of Evaluation: 11/06/15 Time of Evaluation: 22:22 - Subjective Subjective: No change Objective - Vital Signs/Intake and Output Vital Signs (last 24 hours): Temp Pulse Resp BP Pulse Ox 97.9 F 56 L 20 114/63 95 11/06/15 16:35 11/06/15 16:35 11/06/15 16:35 11/06/15 16:35 11/06/15 16:35 - Medications Medications: Current Medications Acetaminophen (Tylenol 325mg Tab) 650 mg PO Q4 PRN PRN Reason: Fever Last Admin: 10/04/15 17:43 Dose: 650 mg Clonazepam (Klonopin) 0.5 mg PO DAILY [facility] Last Admin: 11/06/15 08:21 Dose: 0.5 mg Cyclobenzaprine HCl (Flexeril) 10 mg PO HS PRN PRN Reason: Muscle spasm Docusate Sodium (Colace Liquid) 100 mg PO BID [facility] Last Admin: 11/06/15 16:10 Dose: 100 mg Fluocinonide (Lidex 0.05% Oint) 1 applic TOP BID [facility] Last Admin: 11/06/15 16:11 Dose: 1 applic Gabapentin (Neurontin) 600 mg PO TID [facility] Last Admin: 11/06/15 16:11 Dose: 600 mg Home Med (Patient's Own Medication) 1 unit PO TID@0500,1300,2100 [facility] Last Admin: 11/06/15 12:19 Dose: 1 unit Lactulose (Enulose) 10 gm PO DAILY PRN PRN Reason: Constipation Lidocaine (Lidoderm) 1 ea TD DAILY [facility] Last Admin: 11/06/15 08:22 Dose: 1 ea Midodrine (Proamatine) 5 mg PO TID [facility] Last Admin: 11/06/15 16:10 Dose: 5 mg Tramadol HCl (Ultram) 50 mg PO Q6 PRN PRN Reason: Pain, moderate (4-7) Last Admin: 11/03/15 13:03 Dose: 50 mg - Labs Labs: 10/18/15 11:33 10/18/15 11:33 - Respiratory Exam Respiratory Exam: NORMAL BREATHING PATTERN - Cardiovascular Exam Cardiovascular Exam: REGULAR RHYTHM - GI/Abdominal Exam GI & Abdominal Exam: Normal Bowel Sounds Assessment and Plan - Assessment and Plan (Free Text) Assessment: MSA Parkinson Dx PT UTI Urine culture Proteus IV ABX Rocephin L shoulder pain x rays neg R leg pain LBP Hx of HNP Neuro consult venous doppler negative PT R shoulder pain Dislocation Ortho PT Disposition?? Pt is competent Social service and family involved Pt is [place] RLE rash Dermatiis vs cellulitis?? ID consult appreciated
[2015-11-07 05:16] LABS: HEMOGLOBIN 11.9 g/dL (12.0-18.0); MEAN CELL VOLUME 90.8 fl (80.0-94.0); MEAN CORPUSCULAR HEMOGLOBIN 29.5 pg (27.0-31.0); MEAN CORPUSCULAR HGB CONC 32.5 g/dL (33.0-37.0); RBC 4.02 Mil/uL (4.40-5.90); RED CELL DISTRIBUTION WIDTH 14.1 % (11.5-14.5); WHITE BLOOD COUNT 6.1 K/uL (4.8-10.8)
[2015-11-07 05:26] LABS: BLOOD UREA NITROGEN 20 mg/dl (9-20); CALCIUM 9.3 mg/dL (8.4-10.2); GFR AFRICAN-AMERICAN > 60; GFR NON-AFRICAN AMERICAN > 60
[2015-11-07] MEDS: Lidocaine 5% Patch TD SCH (08:55)
[2015-11-07] MEDS: Enoxaparin 40 mg Syringe SC SCH (10:51)
--- NOTE | 2015-11-07 16:54 | CP.PCM.PN ---
Subjective - Date & Time of Evaluation Date of Evaluation: 11/07/15 Time of Evaluation: 22:22 - Subjective Subjective: doing well Objective - Vital Signs/Intake and Output Vital Signs (last 24 hours): Temp Pulse Resp BP Pulse Ox 97.8 F 82 20 136/71 100 11/07/15 08:17 11/07/15 08:17 11/07/15 08:17 11/07/15 08:17 11/07/15 08:17 - Medications Medications: Current Medications Acetaminophen (Tylenol 325mg Tab) 650 mg PO Q4 PRN PRN Reason: Fever Last Admin: 10/04/15 17:43 Dose: 650 mg Clonazepam (Klonopin) 0.5 mg PO DAILY [facility] Last Admin: 11/07/15 08:52 Dose: 0.5 mg Cyclobenzaprine HCl (Flexeril) 10 mg PO HS PRN PRN Reason: Muscle spasm Last Admin: 11/07/15 08:53 Dose: 10 mg Docusate Sodium (Colace Liquid) 100 mg PO BID [facility] Last Admin: 11/07/15 10:52 Dose: 100 mg Enoxaparin Sodium (Lovenox) 40 mg SC DAILY [facility] Last Admin: 11/07/15 10:51 Dose: 40 mg Fluocinonide (Lidex 0.05% Oint) 1 applic TOP BID [facility] Last Admin: 11/07/15 08:54 Dose: 1 applic Gabapentin (Neurontin) 600 mg PO TID [facility] Last Admin: 11/07/15 08:53 Dose: 600 mg Home Med (Patient's Own Medication) 1 unit PO TID@0500,1300,2100 [facility] Last Admin: 11/07/15 05:56 Dose: 1 unit Lactulose (Enulose) 10 gm PO DAILY PRN PRN Reason: Constipation Lidocaine (Lidoderm) 1 ea TD DAILY [facility] Last Admin: 11/07/15 08:55 Dose: 1 ea Midodrine (Proamatine) 5 mg PO TID [facility] Last Admin: 11/07/15 08:56 Dose: 5 mg Tramadol HCl (Ultram) 50 mg PO Q6 PRN PRN Reason: Pain, moderate (4-7) Last Admin: 11/03/15 13:03 Dose: 50 mg - Labs Labs: 11/07/15 04:30 11/07/15 04:30 - Respiratory Exam Respiratory Exam: NORMAL BREATHING PATTERN - Cardiovascular Exam Cardiovascular Exam: REGULAR RHYTHM Assessment and Plan - Assessment and Plan (Free Text) Assessment: MSA Parkinson Dx PT UTI Urine culture Proteus IV ABX Rocephin L shoulder pain x rays neg R leg pain LBP Hx of HNP Neuro consult venous doppler negative PT R shoulder pain Dislocation Ortho PT Disposition?? Pt is competent Social service and family involved Pt is [place] RLE rash Dermatiis vs cellulitis?? ID consult appreciated
[2015-11-08] MEDS: Enoxaparin 40 mg Syringe SC SCH (09:09)
[2015-11-08] MEDS: Lidocaine 5% Patch TD SCH (09:11)
--- NOTE | 2015-11-08 17:49 | CP.PCM.PN ---
Subjective - Date & Time of Evaluation Date of Evaluation: 11/08/15 Time of Evaluation: 22:22 - Subjective Subjective: resting in bed Objective - Vital Signs/Intake and Output Vital Signs (last 24 hours): Temp Pulse Resp BP Pulse Ox 98.8 F 113 H 20 125/66 95 11/08/15 16:37 11/08/15 16:37 11/08/15 16:37 11/08/15 16:37 11/08/15 16:37 - Medications Medications: Current Medications Acetaminophen (Tylenol 325mg Tab) 650 mg PO Q4 PRN PRN Reason: Fever Last Admin: 10/04/15 17:43 Dose: 650 mg Clonazepam (Klonopin) 0.5 mg PO DAILY [facility] Last Admin: 11/08/15 09:13 Dose: 0.5 mg Cyclobenzaprine HCl (Flexeril) 10 mg PO HS PRN PRN Reason: Muscle spasm Last Admin: 11/08/15 09:10 Dose: 10 mg Docusate Sodium (Colace Liquid) 100 mg PO BID [facility] Last Admin: 11/08/15 17:14 Dose: 100 mg Enoxaparin Sodium (Lovenox) 40 mg SC DAILY [facility] Last Admin: 11/08/15 09:09 Dose: 40 mg Fluocinonide (Lidex 0.05% Oint) 1 applic TOP BID [facility] Last Admin: 11/08/15 17:15 Dose: 1 applic Gabapentin (Neurontin) 600 mg PO TID [facility] Last Admin: 11/08/15 17:14 Dose: 600 mg Home Med (Patient's Own Medication) 1 unit PO TID@0500,1300,2100 [facility] Last Admin: 11/08/15 13:00 Dose: 1 unit Lactulose (Enulose) 10 gm PO DAILY PRN PRN Reason: Constipation Lidocaine (Lidoderm) 1 ea TD DAILY [facility] Last Admin: 11/08/15 09:11 Dose: 1 ea Midodrine (Proamatine) 5 mg PO TID [facility] Last Admin: 11/08/15 17:14 Dose: 5 mg Tramadol HCl (Ultram) 50 mg PO Q6 PRN PRN Reason: Pain, moderate (4-7) Last Admin: 11/08/15 15:03 Dose: 50 mg - Labs Labs: 11/07/15 04:30 11/07/15 04:30 - Respiratory Exam Respiratory Exam: NORMAL BREATHING PATTERN - Cardiovascular Exam Cardiovascular Exam: REGULAR RHYTHM - GI/Abdominal Exam GI & Abdominal Exam: Normal Bowel Sounds Assessment and Plan - Assessment and Plan (Free Text) Assessment: MSA Parkinson Dx PT UTI Urine culture Proteus IV ABX Rocephin L shoulder pain x rays neg R leg pain LBP Hx of HNP Neuro consult venous doppler negative PT R shoulder pain Dislocation Ortho PT Disposition?? Pt is competent Social service and family involved Pt is [place] RLE rash Dermatiis vs cellulitis?? ID consult appreciated
[2015-11-08 18:53] LABS: ABG ALLEN TEST YES; ARTERIAL BLOOD GAS HEMOGLOBIN 13.2 g/dL (11.7-17.4); ARTERIAL BLOOD GAS O2 CAPACITY 17.5 mL/dL (16-24); ARTERIAL BLOOD GAS O2 CONTENT 17.2 ML/dL (15-23); ARTERIAL BLOOD GAS O2 SAT 98.4 % (95-98); ARTERIAL BLOOD GAS PCO2 38 mm/Hg (35-45); ARTERIAL BLOOD GAS PH 7.49 (7.35-7.45); ARTERIAL BLOOD GAS PO2 67 mm/Hg (80-100); ARTERIAL BLOOD GAS TCO2 30.2 mmol/L (22-28)
--- NOTE | 2015-11-08 20:48 | CP.PCM.PN ---
Subjective - Date & Time of Evaluation Date of Evaluation: 11/08/15 Time of Evaluation: 08:30 - Subjective Subjective: Called to evaluate patient because of abnormal ABG. Patient sleeping, easily aroused, Mouth breathing, poor communication. Appears comfortable in bed. Limited review of systems because of the poor communication. No respiratory distress, Afebrile, no vomits. Objective - Vital Signs/Intake and Output Vital Signs (last 24 hours): Temp Pulse Resp BP Pulse Ox 98.8 F 113 H 20 125/66 95 11/08/15 16:37 11/08/15 16:37 11/08/15 16:37 11/08/15 16:37 11/08/15 16:37 - Medications Medications: Current Medications Acetaminophen (Tylenol 325mg Tab) 650 mg PO Q4 PRN PRN Reason: Fever Last Admin: 10/04/15 17:43 Dose: 650 mg Clonazepam (Klonopin) 0.5 mg PO DAILY [facility] Last Admin: 11/08/15 09:13 Dose: 0.5 mg Cyclobenzaprine HCl (Flexeril) 10 mg PO HS PRN PRN Reason: Muscle spasm Last Admin: 11/08/15 09:10 Dose: 10 mg Docusate Sodium (Colace Liquid) 100 mg PO BID [facility] Last Admin: 11/08/15 17:14 Dose: 100 mg Enoxaparin Sodium (Lovenox) 40 mg SC DAILY [facility] Last Admin: 11/08/15 09:09 Dose: 40 mg Fluocinonide (Lidex 0.05% Oint) 1 applic TOP BID [facility] Last Admin: 11/08/15 17:15 Dose: 1 applic Gabapentin (Neurontin) 600 mg PO TID [facility] Last Admin: 11/08/15 17:14 Dose: 600 mg Home Med (Patient's Own Medication) 1 unit PO TID@0500,1300,2100 [facility] Last Admin: 11/08/15 13:00 Dose: 1 unit Lactulose (Enulose) 10 gm PO DAILY PRN PRN Reason: Constipation Lidocaine (Lidoderm) 1 ea TD DAILY [facility] Last Admin: 11/08/15 09:11 Dose: 1 ea Midodrine (Proamatine) 5 mg PO TID [facility] Last Admin: 11/08/15 17:14 Dose: 5 mg Tramadol HCl (Ultram) 50 mg PO Q6 PRN PRN Reason: Pain, moderate (4-7) Last Admin: 11/08/15 15:03 Dose: 50 mg - Labs Labs: 11/07/15 04:30 11/07/15 04:30 - Constitutional Appears: Non-toxic, No Acute Distress - Head Exam Head Exam: ATRAUMATIC, NORMAL INSPECTION, NORMOCEPHALIC - Eye Exam Eye Exam: EOMI, Normal appearance - Neck Exam Neck Exam: Normal Inspection - Respiratory Exam Respiratory Exam: NORMAL BREATHING PATTERN. absent: Rales, Rhonchi, Wheezes Additional comments: Decreased breath sound at the left base. - Cardiovascular Exam Cardiovascular Exam: Irregular Rhythm, +S1, +S2 - GI/Abdominal Exam Additional comments: Flat, soft nontender - Extremities Exam Extremities Exam: Normal Inspection. absent: Pedal Edema - Neurological Exam Additional comments: Asleep, easily aroused, no facial droop, Good motor tone, Motor strength conserved at the upper extremities. - Skin Skin Exam: Dry, Normal Color, Warm Assessment and Plan - Assessment and Plan (Free Text) Assessment: WBC 12.3 Hb 11.5 Na+ 138 K+ 4.3 creatinine 0.7 BUN 19 Plan: 85 years old male mouth breathing with SpO2 apparently low and was placed on Oxygen via Nasal cannula. ABG done on Room Air showed Ph7.49/ pCO2 38/ pO2 67/ HCO2 29 and SaO2 98. CXR with bibasal infiltrate and WBC of 12.3; D dimer 1.5 #. Hypoxemia with pulmonary infiltrate and Leukocytosis will treat for Pneumonia. - blood culture x2 - treat with levaqun 500mg IV daily - Oxygen at 2L/min - follow official results of the CXR - follow D Dimer in initial evaluation for a PE - CTA Chest done _ no evidence for PE #. UTI treated #. osteoarthritis with bilateral shoulder pains - pain management #. Parkinson's Disease - continue current treatment Case discussed with Dr Cancino
[2015-11-08 21:04] LABS: HEMOGLOBIN 11.5 g/dL (12.0-18.0); MEAN CORPUSCULAR HEMOGLOBIN 29.5 pg (27.0-31.0); MEAN CORPUSCULAR HGB CONC 32.5 g/dL (33.0-37.0); RBC 3.89 Mil/uL (4.40-5.90); RED CELL DISTRIBUTION WIDTH 14.1 % (11.5-14.5); WHITE BLOOD COUNT 12.3 K/uL (4.8-10.8)
[2015-11-08 21:09] LABS: BLOOD UREA NITROGEN 19 mg/dl (9-20); CALCIUM 9.2 mg/dL (8.4-10.2); GFR AFRICAN-AMERICAN > 60; GFR NON-AFRICAN AMERICAN > 60
--- NOTE | 2015-11-09 01:28 | CT ---
EXAM: CT Angiography Chest With Intravenous Contrast. CLINICAL HISTORY: 85 years old, male; Signs and symptoms; Dyspnea; Additional info: R/O pe. Elevated d-dimer TECHNIQUE: Axial computed tomographic angiography images of the chest with intravenous contrast using pulmonary embolism protocol. This CT exam was performed using one or more of the following dose reduction techniques: automated exposure control, adjustment of the mA and/or kV according to patient size, and/or use of iterative reconstruction technique. MIP reconstructed images were created and reviewed. Coronal and sagittal reformatted images were created and reviewed. CONTRAST: 95 mL of visipaque administered intravenously. 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 Ascending aorta at the right main pulmonary artery measures 4.3 CM. Descending aorta at the same level measures 4.1 CM. Aorta at the apex of the arch measures 3.7 CM. No evidence for large or central pulmonary embolism. Motion artifact and adjacent parenchymal abnormalities Limited evaluation of smaller branches. Aorta: Thoracic aorta is also atherosclerotic and tortuous. Lungs: Patchy opacities in both lower lobes may reflect atelectasis and/or infiltrate. The visualized portions of the lung apices are normal. Pleural spaces: No evidence for significant pleural effusion or pneumothorax. Heart: There is coronary artery calcification. The heart is moderately enlarged. No significant pericardial effusion. No evidence of RV dysfunction. Mediastinum: There is fluid and debris within the esophagus suggesting reflux or vomiting. Question of mild esophageal wall thickening. If indicated, this could be further evaluated with esophagram or upper endoscopy. Bones: There is slight reflux of contrast into the IVC and hepatic veins which raises the possibility of some right heart failure. Compression. There are moderate degenerative changes present. There is marked diffuse osteopenia. There is exaggerated thoracic kyphosis. Thyroid: The thyroid is normal in size and position. Lymph nodes: There is mediastinal adenopathy. There is no axillary adenopathy. No hilar adenopathy. Upper abdomen: Scans through the upper abdomen demonstrates a distended gallbladder with dependent high density material. IMPRESSION: 1. There is mediastinal adenopathy. 2. 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 Ascending aorta at the right main pulmonary artery measures 4.3 CM. Descending aorta at the same level measures 4.1 CM. Aorta at the apex of the arch measures 3.7 CM. 3. There is fluid and debris within the esophagus suggesting reflux or vomiting. Question of mild esophageal wall thickening. If indicated, this could be further evaluated with esophagram or upper endoscopy. 4. No evidence for large or central pulmonary embolism. Motion artifact and adjacent parenchymal abnormalities Limited evaluation of smaller branches. 5. Patchy opacities in both lower lobes may reflect atelectasis and/or infiltrate. 6. No evidence for significant pleural effusion or pneumothorax. 7. Scans through the upper abdomen demonstrates a distended gallbladder with dependent high density material. 8. Additional incidental and/or chronic findings as described.
[2015-11-09] MEDS: Enoxaparin 40 mg Syringe SC SCH (09:20)
[2015-11-09] MEDS: Lidocaine 5% Patch TD SCH (09:21)
--- NOTE | 2015-11-09 11:26 | RAD ---
HISTORY: r/o pe COMPARISON: Chest x-ray performed 11/08/15 TECHNIQUE: Chest, one view. FINDINGS: LUNGS: Patchy bilateral pulmonary opacities. Please note that chest x-ray has limited sensitivity for the detection of pulmonary masses. PLEURA: No significant pleural effusion identified. No definite pneumothorax . CARDIOVASCULAR: Enlargement of the cardiomediastinal silhouette. OSSEOUS STRUCTURES: Degenerative changes of the spine and shoulders. Acromioclavicular arthropathy. VISUALIZED UPPER ABDOMEN: Unremarkable. OTHER FINDINGS: None. IMPRESSION: Patchy bilateral pulmonary opacities. Enlarged cardiomediastinal silhouette, grossly stable.
--- NOTE | 2015-11-09 20:20 | CP.PCM.PN ---
Subjective - Date & Time of Evaluation Date of Evaluation: 11/09/15 Time of Evaluation: 22:22 - Subjective Subjective: Hospatilist note appreciated Pt started on tx for pneumonia Pt also found to have urinary retention Objective - Vital Signs/Intake and Output Vital Signs (last 24 hours): Temp Pulse Resp BP Pulse Ox 97.7 F 64 18 106/55 L 98 11/09/15 16:51 11/09/15 16:51 11/09/15 16:51 11/09/15 16:51 11/09/15 16:51 - Medications Medications: Current Medications Acetaminophen (Tylenol 325mg Tab) 650 mg PO Q4 PRN PRN Reason: Fever Last Admin: 10/04/15 17:43 Dose: 650 mg Clonazepam (Klonopin) 0.5 mg PO DAILY [facility] Last Admin: 11/09/15 09:18 Dose: 0.5 mg Cyclobenzaprine HCl (Flexeril) 10 mg PO HS PRN PRN Reason: Muscle spasm Last Admin: 11/08/15 09:10 Dose: 10 mg Docusate Sodium (Colace Liquid) 100 mg PO BID [facility] Last Admin: 11/09/15 16:17 Dose: 100 mg Enoxaparin Sodium (Lovenox) 40 mg SC DAILY [facility] Last Admin: 11/09/15 09:20 Dose: 40 mg Fluocinonide (Lidex 0.05% Oint) 1 applic TOP BID [facility] Last Admin: 11/09/15 16:19 Dose: 1 applic Gabapentin (Neurontin) 600 mg PO TID [facility] Last Admin: 11/09/15 16:19 Dose: 600 mg Home Med (Patient's Own Medication) 1 unit PO TID@0500,1300,2100 [facility] Last Admin: 11/09/15 14:00 Dose: 1 unit Levofloxacin/Dextrose (Levaquin 500mg) 100 mls @ 100 mls/hr IVPB DAILY@2300 [facility] Last Admin: 11/08/15 23:59 Dose: 100 mls/hr Lactulose (Enulose) 10 gm PO DAILY PRN PRN Reason: Constipation Lidocaine (Lidoderm) 1 ea TD DAILY [facility] Last Admin: 11/09/15 09:21 Dose: 1 ea Midodrine (Proamatine) 5 mg PO TID [facility] Last Admin: 11/09/15 16:20 Dose: 5 mg Nystatin (Nystop Topical Powder) 1 applic TOP TID [facility] Last Admin: 11/09/15 16:20 Dose: 1 units Tramadol HCl (Ultram) 50 mg PO Q6 PRN PRN Reason: Pain, moderate (4-7) Last Admin: 11/08/15 15:03 Dose: 50 mg - Labs Labs: 11/08/15 08:30 11/08/15 08:30 - Respiratory Exam Respiratory Exam: NORMAL BREATHING PATTERN - Cardiovascular Exam Cardiovascular Exam: REGULAR RHYTHM - GI/Abdominal Exam GI & Abdominal Exam: Normal Bowel Sounds Assessment and Plan - Assessment and Plan (Free Text) Assessment: Pnuemonia Hypoxia ABX Pulmonary Urinary retention [facility] MSA Parkinson Dx PT UTI Urine culture Proteus IV ABX Rocephin L shoulder pain x rays neg R leg pain LBP Hx of HNP Neuro consult venous doppler negative PT R shoulder pain Dislocation Ortho PT Disposition?? Pt is competent Social service and family involved Pt is [place] RLE rash Dermatiis vs cellulitis?? ID consult appreciated
--- NOTE | 2015-11-09 22:57 | CARD ---
APPROVED REPORT EKG Measurement Heart [id number] <Conclusion> Poor data quality, interpretation may be adversely affected Atrial fibrillation with premature ventricular or aberrantly conducted complexes Abnormal ECG
[2015-11-10 07:15] LABS: HEMOGLOBIN 11.4 g/dL (12.0-18.0); MEAN CELL VOLUME 90.1 fl (80.0-94.0); MEAN CORPUSCULAR HEMOGLOBIN 29.9 pg (27.0-31.0); MEAN CORPUSCULAR HGB CONC 33.2 g/dL (33.0-37.0); RBC 3.83 Mil/uL (4.40-5.90); WHITE BLOOD COUNT 8.9 K/uL (4.8-10.8)
[2015-11-10] MEDS: Enoxaparin 40 mg Syringe SC SCH (08:40)
[2015-11-10] MEDS: Lidocaine 5% Patch TD SCH (08:41)
--- NOTE | 2015-11-10 14:46 | CP.PCM.PN ---
Subjective - Date & Time of Evaluation Date of Evaluation: 11/10/15 Time of Evaluation: 14:32 - Subjective Subjective: Asked to re-evaluate this 85 year old male who has been bed-bound for an extended period of time. he had dropped his O2 saturation into the 80's prompting a chest x-ray and ABG. He has been placed on levofloxacin and remains on nasal oxygen. His ABG does show an oxygen level which is relatively within an acceptable range for someone his age. The chest x-ray shows areas of patchy infiltrates posteriorly in the lung bases which is where he would be expected to pool secretions and develop pneumonia as a consequence of being immobile in bed. He did have some slight leukocytosis which has resolved with the start of the antibiotic. On exam he is as cooperative as able. he is not in respiratory distress. There is no muscle recruitment at rest. Trachea is midline. No axillary adenopathy is palpated. There is no dullness on chest percussion anteriorly and laterally. Coarse rhonchi with medium rales are heard posteriorly in the lung bases (L>>R) without bronchial breathing or wheezing. No egophony is heard. he likely has developed some basilar atelectasis with pneumonia secondary to hypostasis of airways secretions. The present regimen appears to have improved his clinical condition nicely. This will be a repeated process due to his muscular problems and the fact that he remains immobile in the bed. Log rolling frequently may help to deter some of the stasis of the secretions and delay recurrence. He can be treated with the levofloxacin since he appears to have responded to same, but this is a Health Care Associated Pneumonia by definition and will become more drug resistant. If this reoccurs he will need two antibiotics to vover HCAP. Thanks... Objective - Vital Signs/Intake and Output Vital Signs (last 24 hours): Temp Pulse Resp BP Pulse Ox 98 F 87 20 124/56 L 100 11/10/15 08:42 11/10/15 08:42 11/10/15 08:42 11/10/15 08:42 11/10/15 08:42 - Medications Medications: Current Medications Acetaminophen (Tylenol 325mg Tab) 650 mg PO Q4 PRN PRN Reason: Fever Last Admin: 10/04/15 17:43 Dose: 650 mg Clonazepam (Klonopin) 0.5 mg PO DAILY [facility] Last Admin: 11/10/15 12:58 Dose: 0.5 mg Cyclobenzaprine HCl (Flexeril) 10 mg PO HS PRN PRN Reason: Muscle spasm Last Admin: 11/08/15 09:10 Dose: 10 mg Docusate Sodium (Colace Liquid) 100 mg PO BID [facility] Last Admin: 11/10/15 08:40 Dose: 100 mg Enoxaparin Sodium (Lovenox) 40 mg SC DAILY [facility] Last Admin: 11/10/15 08:40 Dose: 40 mg Fluocinonide (Lidex 0.05% Oint) 1 applic TOP BID [facility] Last Admin: 11/10/15 08:41 Dose: 1 applic Gabapentin (Neurontin) 600 mg PO TID [facility] Last Admin: 11/10/15 12:58 Dose: 600 mg Home Med (Patient's Own Medication) 1 unit PO TID@0500,1300,2100 [facility] Last Admin: 11/10/15 12:58 Dose: 1 unit Levofloxacin/Dextrose (Levaquin 500mg) 100 mls @ 100 mls/hr IVPB DAILY@2300 [facility] Last Admin: 11/09/15 22:04 Dose: 100 mls/hr Lactulose (Enulose) 10 gm PO DAILY PRN PRN Reason: Constipation Lidocaine (Lidoderm) 1 ea TD DAILY [facility] Last Admin: 11/10/15 08:41 Dose: 1 ea Midodrine (Proamatine) 5 mg PO TID [facility] Last Admin: 11/10/15 12:58 Dose: 5 mg Nystatin (Nystop Topical Powder) 1 applic TOP TID [facility] Last Admin: 11/10/15 12:58 Dose: 1 units Tramadol HCl (Ultram) 50 mg PO Q6 PRN PRN Reason: Pain, moderate (4-7) Last Admin: 11/10/15 01:54 Dose: 50 mg - Labs Labs: 11/10/15 04:30 11/08/15 08:30 Assessment and Plan (1) Pneumonia Status: Acute
--- NOTE | 2015-11-10 15:54 | CP.PCM.PN ---
Subjective - Date & Time of Evaluation Date of Evaluation: 11/10/15 Time of Evaluation: 22:22 - Subjective Subjective: Above pulmonary note appreciated Pt improved today Objective - Vital Signs/Intake and Output Vital Signs (last 24 hours): Temp Pulse Resp BP Pulse Ox 98 F 87 20 124/56 L 100 11/10/15 08:42 11/10/15 08:42 11/10/15 08:42 11/10/15 08:42 11/10/15 08:42 - Medications Medications: Current Medications Acetaminophen (Tylenol 325mg Tab) 650 mg PO Q4 PRN PRN Reason: Fever Last Admin: 10/04/15 17:43 Dose: 650 mg Clonazepam (Klonopin) 0.5 mg PO DAILY [facility] Last Admin: 11/10/15 12:58 Dose: 0.5 mg Cyclobenzaprine HCl (Flexeril) 10 mg PO HS PRN PRN Reason: Muscle spasm Last Admin: 11/08/15 09:10 Dose: 10 mg Docusate Sodium (Colace Liquid) 100 mg PO BID [facility] Last Admin: 11/10/15 08:40 Dose: 100 mg Enoxaparin Sodium (Lovenox) 40 mg SC DAILY [facility] Last Admin: 11/10/15 08:40 Dose: 40 mg Fluocinonide (Lidex 0.05% Oint) 1 applic TOP BID [facility] Last Admin: 11/10/15 08:41 Dose: 1 applic Gabapentin (Neurontin) 600 mg PO TID [facility] Last Admin: 11/10/15 12:58 Dose: 600 mg Home Med (Patient's Own Medication) 1 unit PO TID@0500,1300,2100 [facility] Last Admin: 11/10/15 12:58 Dose: 1 unit Levofloxacin/Dextrose (Levaquin 500mg) 100 mls @ 100 mls/hr IVPB DAILY@2300 [facility] Last Admin: 11/09/15 22:04 Dose: 100 mls/hr Lactulose (Enulose) 10 gm PO DAILY PRN PRN Reason: Constipation Lidocaine (Lidoderm) 1 ea TD DAILY [facility] Last Admin: 11/10/15 08:41 Dose: 1 ea Midodrine (Proamatine) 5 mg PO TID [facility] Last Admin: 11/10/15 12:58 Dose: 5 mg Nystatin (Nystop Topical Powder) 1 applic TOP TID [facility] Last Admin: 11/10/15 12:58 Dose: 1 units Tramadol HCl (Ultram) 50 mg PO Q6 PRN PRN Reason: Pain, moderate (4-7) Last Admin: 11/10/15 01:54 Dose: 50 mg - Labs Labs: 11/10/15 04:30 11/08/15 08:30 - Respiratory Exam Respiratory Exam: NORMAL BREATHING PATTERN - Cardiovascular Exam Cardiovascular Exam: REGULAR RHYTHM - GI/Abdominal Exam GI & Abdominal Exam: Normal Bowel Sounds Assessment and Plan - Assessment and Plan (Free Text) Assessment: Pnuemonia Hypoxia ABX Pulmonary note appreciated Urinary retention [facility] Parkinson Dx PT UTI Urine culture Proteus IV ABX Rocephin L shoulder pain x rays neg R leg pain LBP Hx of HNP Neuro consult venous doppler negative PT R shoulder pain Dislocation Ortho PT Disposition?? Pt is competent Social service and family involved Pt is [employer] RLE rash Dermatiis vs cellulitis?? ID consult appreciated
[2015-11-10] MEDS: Bethanechol 50 MG TAB PO SCH (21:54)
[2015-11-11] MEDS: Lidocaine 5% Patch TD SCH (08:53)
[2015-11-11] MEDS: Bethanechol 50 MG TAB PO SCH ×3 (08:54→16:25)
[2015-11-11] MEDS: Enoxaparin 40 mg Syringe SC SCH (08:54)
--- NOTE | 2015-11-11 09:55 | CP.PCM.PN ---
Subjective - Date & Time of Evaluation Date of Evaluation: 11/11/15 Time of Evaluation: 09:30 - Subjective Subjective: comfortable in bed no cp no sob no fever, no leukocytosis yesterday no respiratory distress. NAD. Objective - Vital Signs/Intake and Output Vital Signs (last 24 hours): Temp Pulse Resp BP Pulse Ox 96.8 F L 79 20 107/57 L 94 L 11/11/15 08:19 11/11/15 08:19 11/11/15 08:19 11/11/15 08:19 11/11/15 08:19 Intake and Output: 11/11/15 11/11/15 06:59 18:59 Output Total 600 Balance -600 - Medications Medications: Current Medications Acetaminophen (Tylenol 325mg Tab) 650 mg PO Q4 PRN PRN Reason: Fever Last Admin: 10/04/15 17:43 Dose: 650 mg Bethanechol Chloride (Urecholine) 50 mg PO TID [facility] Last Admin: 11/11/15 08:54 Dose: 50 mg Clonazepam (Klonopin) 0.5 mg PO DAILY [facility] Last Admin: 11/11/15 09:52 Dose: 0.5 mg Cyclobenzaprine HCl (Flexeril) 10 mg PO HS PRN PRN Reason: Muscle spasm Last Admin: 11/08/15 09:10 Dose: 10 mg Docusate Sodium (Colace Liquid) 100 mg PO BID [facility] Last Admin: 11/11/15 08:54 Dose: 100 mg Enoxaparin Sodium (Lovenox) 40 mg SC DAILY [facility] Last Admin: 11/11/15 08:54 Dose: 40 mg Fluocinonide (Lidex 0.05% Oint) 1 applic TOP BID [facility] Last Admin: 11/11/15 08:55 Dose: 1 applic Gabapentin (Neurontin) 600 mg PO TID [facility] Last Admin: 11/11/15 08:54 Dose: 600 mg Home Med (Patient's Own Medication) 1 unit PO TID@0500,1300,2100 [facility] Last Admin: 11/11/15 06:30 Dose: 1 unit Levofloxacin/Dextrose (Levaquin 500mg) 100 mls @ 100 mls/hr IVPB DAILY@2300 [facility] Last Admin: 11/10/15 22:01 Dose: 100 mls/hr Lactulose (Enulose) 10 gm PO DAILY PRN PRN Reason: Constipation Lidocaine (Lidoderm) 1 ea TD DAILY [facility] Last Admin: 11/11/15 08:53 Dose: 1 ea Midodrine (Proamatine) 5 mg PO TID [facility] Last Admin: 11/11/15 08:54 Dose: 5 mg Nystatin (Nystop Topical Powder) 1 applic TOP TID [facility] Last Admin: 11/11/15 09:52 Dose: 1 units Tamsulosin HCl (Flomax) 0.4 mg PO DAILY [facility] Last Admin: 11/11/15 09:53 Dose: 0.4 mg Tramadol HCl (Ultram) 50 mg PO Q6 PRN PRN Reason: Pain, moderate (4-7) Last Admin: 11/11/15 06:31 Dose: 50 mg - Labs Labs: 11/10/15 04:30 11/08/15 08:30 - Constitutional Appears: Non-toxic, No Acute Distress - Head Exam Head Exam: ATRAUMATIC, NORMOCEPHALIC - Eye Exam Eye Exam: EOMI, Normal appearance, PERRL Pupil Exam: NORMAL ACCOMODATION - ENT Exam ENT Exam: Mucous Membranes Dry, Normal Oropharynx - Neck Exam Neck Exam: absent: Meningismus, Tenderness - Respiratory Exam Respiratory Exam: Clear to Ausculation Bilateral, NORMAL BREATHING PATTERN - Cardiovascular Exam Cardiovascular Exam: RRR, +S1, +S2 - GI/Abdominal Exam GI & Abdominal Exam: Soft. absent: Tenderness - Rectal Exam Rectal Exam: Deferred - Extremities Exam Extremities Exam: Normal Capillary Refill. absent: Calf Tenderness - Neurological Exam Neurological Exam: Alert. absent: Normal Gait - Psychiatric Exam Psychiatric exam: Normal Affect, Normal Mood - Skin Skin Exam: Dry, Warm Assessment and Plan (1) UTI (urinary tract infection) Status: Acute (2) Cellulitis Status: Acute (3) Lethargic Status: Acute (4) Fall Status: Acute (5) Parkinson disease Status: Chronic (6) Orthostasis Status: Chronic (7) Thrombocytopenia Status: Chronic (8) Depression Status: Chronic (9) DVT prophylaxis Status: Acute - Assessment and Plan (Free Text) Plan: 85 y/o male with history Parkinsonism was admitted originally with shingles. Patient currently waiting for discharge to [place] since he can not take care of self at home. Pneumonia +levaquin pulmonology consult, Dr. Patricia no fever no wbc ct chest showed post dorothy infiltrates? UTI , resolved Proteus mirabilis in urine ID consulted received Rocephin Fall Hx of frequent fall due to gait disturbance due to advanced Parkinson's PT while in hospital for gait training Will need placement to [facility] -patient has signed documents needed, SW following. Await plan for DC when Acceptance of financial documents Osteoarthritis Biltaral Shoulder pain with neck pain and muscle spasm Lidoderm patch and flexeril HS heating pad OT for ROM and exercise continue tylenol prn and Ultram on gabapentin Parkinson disease, chronic Continue Rytary With less tyremors but with axial rigidity and slow thought process psych consulted, patient is competent and has capacity Continue clonazepam Thrombocytopenia, resolved ITP Stable Hypotension hx of Orthostasis, Shy Drager Syndrome Continue Midodrine Shingles improved Isolation discontinued topical hydrocortisone ID was consulted Pain management as needed DVT prophylaxis SCD no anticoagulation due to low plt
--- NOTE | 2015-11-11 12:04 | CP.PCM.PN ---
Subjective - Date & Time of Evaluation Date of Evaluation: 11/11/15 Time of Evaluation: 12:01 - Subjective Subjective: Remains afebrile. Less cough. No respiratory distress. Good SpO2 (94% on RA). Was OOB to a lounge chair yesterday afternoon with a moderate amount of difficulty. Continue in the same manner for the present time. Objective - Vital Signs/Intake and Output Vital Signs (last 24 hours): Temp Pulse Resp BP Pulse Ox 96.8 F L 79 20 107/57 L 94 L 11/11/15 08:19 11/11/15 08:19 11/11/15 08:19 11/11/15 08:19 11/11/15 08:19 - Medications Medications: Current Medications Acetaminophen (Tylenol 325mg Tab) 650 mg PO Q4 PRN PRN Reason: Fever Last Admin: 10/04/15 17:43 Dose: 650 mg Bethanechol Chloride (Urecholine) 50 mg PO TID [facility] Last Admin: 11/11/15 08:54 Dose: 50 mg Clonazepam (Klonopin) 0.5 mg PO DAILY [facility] Last Admin: 11/11/15 09:52 Dose: 0.5 mg Cyclobenzaprine HCl (Flexeril) 10 mg PO HS PRN PRN Reason: Muscle spasm Last Admin: 11/08/15 09:10 Dose: 10 mg Docusate Sodium (Colace Liquid) 100 mg PO BID [facility] Last Admin: 11/11/15 08:54 Dose: 100 mg Enoxaparin Sodium (Lovenox) 40 mg SC DAILY [facility] Last Admin: 11/11/15 08:54 Dose: 40 mg Fluocinonide (Lidex 0.05% Oint) 1 applic TOP BID [facility] Last Admin: 11/11/15 08:55 Dose: 1 applic Gabapentin (Neurontin) 600 mg PO TID [facility] Last Admin: 11/11/15 08:54 Dose: 600 mg Home Med (Patient's Own Medication) 1 unit PO TID@0500,1300,2100 [facility] Last Admin: 11/11/15 06:30 Dose: 1 unit Levofloxacin/Dextrose (Levaquin 500mg) 100 mls @ 100 mls/hr IVPB DAILY@2300 [facility] Last Admin: 11/10/15 22:01 Dose: 100 mls/hr Lactulose (Enulose) 10 gm PO DAILY PRN PRN Reason: Constipation Lidocaine (Lidoderm) 1 ea TD DAILY [facility] Last Admin: 11/11/15 08:53 Dose: 1 ea Midodrine (Proamatine) 5 mg PO TID [facility] Last Admin: 11/11/15 08:54 Dose: 5 mg Nystatin (Nystop Topical Powder) 1 applic TOP TID [facility] Last Admin: 11/11/15 09:52 Dose: 1 units Tamsulosin HCl (Flomax) 0.4 mg PO DAILY [facility] Last Admin: 11/11/15 09:53 Dose: 0.4 mg Tramadol HCl (Ultram) 50 mg PO Q6 PRN PRN Reason: Pain, moderate (4-7) Last Admin: 11/11/15 06:31 Dose: 50 mg - Labs Labs: 11/10/15 04:30 11/08/15 08:30 Assessment and Plan (1) Pneumonia Status: Acute
[2015-11-12 08:12] LABS: BASO # 0.1 K/uL (0.0-0.2); BASO % 0.9 % (0.0-2.0); EOS # 0.4 K/uL (0.0-0.7); EOS % 5.4 % (0.0-4.0); HEMOGLOBIN 11.7 g/dL (12.0-18.0); LYMPH # 1.3 K/uL (1.0-4.3); LYMPH % 17.8 % (20.0-40.0); MEAN CELL VOLUME 89.5 fl (80.0-94.0); MEAN CORPUSCULAR HEMOGLOBIN 29.7 pg (27.0-31.0); MEAN CORPUSCULAR HGB CONC 33.2 g/dL (33.0-37.0); MONO # 0.5 K/uL (0.0-0.8); MONO % 6.3 % (0.0-10.0); NEUT % 69.6 % (50.0-75.0); RBC 3.94 Mil/uL (4.40-5.90); RED CELL DISTRIBUTION WIDTH 13.9 % (11.5-14.5); WHITE BLOOD COUNT 7.2 K/uL (4.8-10.8)
[2015-11-12] MEDS: Bethanechol 50 MG TAB PO SCH ×3 (09:01→16:35)
[2015-11-12] MEDS: Lidocaine 5% Patch TD SCH (09:06)
--- NOTE | 2015-11-12 10:46 | CP.PCM.PN ---
Subjective - Date & Time of Evaluation Date of Evaluation: 11/12/15 Time of Evaluation: 09:00 - Subjective Subjective: comfortably eating breakfast, no respiratory distress. No cp. NAD, VSS. Objective - Vital Signs/Intake and Output Vital Signs (last 24 hours): Temp Pulse Resp BP Pulse Ox 97.3 F L 89 20 108/53 L 97 11/12/15 08:58 11/12/15 08:58 11/12/15 08:58 11/12/15 08:58 11/12/15 08:58 Intake and Output: 11/12/15 11/12/15 06:59 18:59 Output Total 350 Balance -350 - Medications Medications: Current Medications Acetaminophen (Tylenol 325mg Tab) 650 mg PO Q4 PRN PRN Reason: Fever Last Admin: 11/12/15 09:21 Dose: 650 mg Bethanechol Chloride (Urecholine) 50 mg PO TID [facility] Last Admin: 11/12/15 09:01 Dose: 50 mg Clonazepam (Klonopin) 0.5 mg PO DAILY [facility] Last Admin: 11/12/15 08:59 Dose: 0.5 mg Cyclobenzaprine HCl (Flexeril) 10 mg PO HS PRN PRN Reason: Muscle spasm Last Admin: 11/08/15 09:10 Dose: 10 mg Docusate Sodium (Colace Liquid) 100 mg PO BID [facility] Last Admin: 11/12/15 09:17 Dose: Not Given Fluocinonide (Lidex 0.05% Oint) 1 applic TOP BID [facility] Last Admin: 11/12/15 09:05 Dose: 1 applic Gabapentin (Neurontin) 600 mg PO TID [facility] Last Admin: 11/12/15 09:02 Dose: 600 mg Home Med (Patient's Own Medication) 1 unit PO TID@0500,1300,2100 [facility] Last Admin: 11/12/15 06:12 Dose: 1 unit Levofloxacin/Dextrose (Levaquin 500mg) 100 mls @ 100 mls/hr IVPB DAILY@2300 [facility] Last Admin: 11/11/15 22:01 Dose: 100 mls/hr Lactulose (Enulose) 10 gm PO DAILY PRN PRN Reason: Constipation Lidocaine (Lidoderm) 1 ea TD DAILY [facility] Last Admin: 11/12/15 09:06 Dose: 1 ea Midodrine (Proamatine) 5 mg PO TID [facility] Last Admin: 11/12/15 09:01 Dose: 5 mg Nystatin (Nystop Topical Powder) 1 applic TOP TID [facility] Last Admin: 11/12/15 09:19 Dose: 1 units Tamsulosin HCl (Flomax) 0.4 mg PO DAILY [facility] Last Admin: 11/12/15 09:03 Dose: 0.4 mg Tramadol HCl (Ultram) 50 mg PO Q6 PRN PRN Reason: Pain, moderate (4-7) Last Admin: 11/12/15 08:59 Dose: 50 mg - Labs Labs: 11/12/15 06:00 11/08/15 08:30 - Constitutional Appears: Non-toxic, No Acute Distress - Head Exam Head Exam: ATRAUMATIC, NORMOCEPHALIC - Eye Exam Eye Exam: EOMI, Normal appearance, PERRL - ENT Exam ENT Exam: Mucous Membranes Moist, Normal Oropharynx - Neck Exam Neck Exam: Meningismus. absent: Lymphadenopathy, Tenderness - Respiratory Exam Respiratory Exam: Decreased Breath Sounds, NORMAL BREATHING PATTERN - Cardiovascular Exam Cardiovascular Exam: RRR, +S1, +S2 - GI/Abdominal Exam GI & Abdominal Exam: Soft. absent: Tenderness - Rectal Exam Rectal Exam: Deferred - Extremities Exam Extremities Exam: Normal Capillary Refill. absent: Joint Swelling - Back Exam Back Exam: absent: CVA tenderness (L), CVA tenderness (R) - Neurological Exam Neurological Exam: Alert, Awake - Psychiatric Exam Psychiatric exam: Normal Affect, Normal Mood - Skin Skin Exam: Dry, Warm Assessment and Plan (1) UTI (urinary tract infection) Status: Acute (2) Cellulitis Status: Acute (3) Lethargic Status: Acute (4) Fall Status: Acute (5) Parkinson disease Status: Chronic (6) Orthostasis Status: Chronic (7) Thrombocytopenia Status: Chronic (8) Depression Status: Chronic (9) DVT prophylaxis Status: Acute - Assessment and Plan (Free Text) Plan: 85 y/o male with history Parkinsonism was admitted originally with shingles. Patient currently waiting for discharge to [place] since he can not take care of self at home. Pneumonia +levaquin cont pulmonology consult, Dr. Patricia no fever no wbc ct chest showed post dorothy infiltrates? UTI , resolved Proteus mirabilis in urine ID consulted received Rocephin Fall Hx of frequent fall due to gait disturbance due to advanced Parkinson's PT while in hospital for gait training Will need placement to [facility] -patient has signed documents needed, SW following. Await plan for DC when Acceptance of financial documents Osteoarthritis Biltaral Shoulder pain with neck pain and muscle spasm Lidoderm patch and flexeril HS heating pad OT for ROM and exercise continue tylenol prn and Ultram on gabapentin Parkinson disease, chronic Continue Rytary With less tyremors but with axial rigidity and slow thought process psych consulted, patient is competent and has capacity Continue clonazepam Thrombocytopenia, resolved ITP Stable Hypotension hx of Orthostasis, Shy Drager Syndrome Continue Midodrine Shingles improved Isolation discontinued topical hydrocortisone ID was consulted Pain management as needed DVT prophylaxis SCD no anticoagulation due to low plt
--- NOTE | 2015-11-12 12:31 | CP.PCM.PN ---
Subjective - Date & Time of Evaluation Date of Evaluation: 11/12/15 Time of Evaluation: 09:00 - Subjective Subjective: rx for pneumonia in progress await culturesd discussed with Dr Gracia Objective - Vital Signs/Intake and Output Vital Signs (last 24 hours): Temp Pulse Resp BP Pulse Ox 97.3 F L 89 20 108/53 L 97 11/12/15 08:58 11/12/15 08:58 11/12/15 08:58 11/12/15 08:58 11/12/15 08:58 Intake and Output: 11/12/15 11/12/15 06:59 18:59 Output Total 350 Balance -350 - Medications Medications: Current Medications Acetaminophen (Tylenol 325mg Tab) 650 mg PO Q4 PRN PRN Reason: Fever Last Admin: 11/12/15 09:21 Dose: 650 mg Bethanechol Chloride (Urecholine) 50 mg PO TID [facility] Last Admin: 11/12/15 09:01 Dose: 50 mg Clonazepam (Klonopin) 0.5 mg PO DAILY [facility] Last Admin: 11/12/15 08:59 Dose: 0.5 mg Cyclobenzaprine HCl (Flexeril) 10 mg PO HS PRN PRN Reason: Muscle spasm Last Admin: 11/08/15 09:10 Dose: 10 mg Docusate Sodium (Colace Liquid) 100 mg PO BID [facility] Last Admin: 11/12/15 09:17 Dose: Not Given Fluocinonide (Lidex 0.05% Oint) 1 applic TOP BID [facility] Last Admin: 11/12/15 09:05 Dose: 1 applic Gabapentin (Neurontin) 600 mg PO TID [facility] Last Admin: 11/12/15 09:02 Dose: 600 mg Home Med (Patient's Own Medication) 1 unit PO TID@0500,1300,2100 [facility] Last Admin: 11/12/15 06:12 Dose: 1 unit Levofloxacin/Dextrose (Levaquin 500mg) 100 mls @ 100 mls/hr IVPB DAILY@2300 [facility] Last Admin: 11/11/15 22:01 Dose: 100 mls/hr Lactulose (Enulose) 10 gm PO DAILY PRN PRN Reason: Constipation Lidocaine (Lidoderm) 1 ea TD DAILY [facility] Last Admin: 11/12/15 09:06 Dose: 1 ea Midodrine (Proamatine) 5 mg PO TID [facility] Last Admin: 11/12/15 09:01 Dose: 5 mg Nystatin (Nystop Topical Powder) 1 applic TOP TID [facility] Last Admin: 11/12/15 09:19 Dose: 1 units Tamsulosin HCl (Flomax) 0.4 mg PO DAILY [facility] Last Admin: 11/12/15 09:03 Dose: 0.4 mg Tramadol HCl (Ultram) 50 mg PO Q6 PRN PRN Reason: Pain, moderate (4-7) Last Admin: 11/12/15 08:59 Dose: 50 mg - Labs Labs: 11/12/15 06:00 11/08/15 08:30 - Constitutional Appears: Non-toxic, Chronically Ill - Head Exam Head Exam: NORMOCEPHALIC - Eye Exam Eye Exam: absent: Scleral icterus - ENT Exam ENT Exam: Mucous Membranes Dry, Normal External Ear Exam - Neck Exam Neck Exam: absent: Lymphadenopathy, Thyromegaly - Respiratory Exam Respiratory Exam: Decreased Breath Sounds, Rhonchi - Cardiovascular Exam Cardiovascular Exam: REGULAR RHYTHM, +S1, +S2 - GI/Abdominal Exam GI & Abdominal Exam: Distended, Soft. absent: Tenderness - Rectal Exam Rectal Exam: Deferred - Exam Exam: NORMAL INSPECTION - Extremities Exam Extremities Exam: absent: Calf Tenderness, Pedal Edema - Back Exam Back Exam: absent: CVA tenderness (L), CVA tenderness (R) - Neurological Exam Neurological Exam: Alert, Altered, Awake Neuro motor strength exam: Left Upper Extremity: 4, Right Upper Extremity: 4, Left Lower Extremity: 4, Right Lower Extremity: 4 - Psychiatric Exam Psychiatric exam: Normal Mood - Skin Skin Exam: Dry, Intact Assessment and Plan (1) Cellulitis and abscess of leg, except foot Status: Suspected (2) Fever Status: Acute
[2015-11-12] MEDS: Enoxaparin 40 mg Syringe SC SCH ×2 (13:05→19:12)
[2015-11-13 06:55] LABS: HEMOGLOBIN 10.8 g/dL (12.0-18.0); MEAN CELL VOLUME 90.4 fl (80.0-94.0); MEAN CORPUSCULAR HEMOGLOBIN 29.7 pg (27.0-31.0); MEAN CORPUSCULAR HGB CONC 32.8 g/dL (33.0-37.0); RBC 3.65 Mil/uL (4.40-5.90); RED CELL DISTRIBUTION WIDTH 14.2 % (11.5-14.5)
[2015-11-13 07:01] LABS: BLOOD UREA NITROGEN 17 mg/dl (9-20); CALCIUM 9.1 mg/dL (8.4-10.2); GFR AFRICAN-AMERICAN > 60; GFR NON-AFRICAN AMERICAN > 60
[2015-11-13] MEDS: Lidocaine 5% Patch TD SCH (09:42)
[2015-11-13] MEDS: Bethanechol 50 MG TAB PO SCH ×3 (09:44→17:08)
--- NOTE | 2015-11-13 20:42 | CP.PCM.PN ---
Subjective - Date & Time of Evaluation Date of Evaluation: 11/13/15 Time of Evaluation: 22:22 - Subjective Subjective: Above noted Objective - Vital Signs/Intake and Output Vital Signs (last 24 hours): Temp Pulse Resp BP Pulse Ox 97.2 F L 82 19 110/70 100 11/13/15 16:08 11/13/15 16:08 11/13/15 16:08 11/13/15 16:08 11/13/15 16:08 - Medications Medications: Current Medications Acetaminophen (Tylenol 325mg Tab) 650 mg PO Q4 PRN PRN Reason: Fever Last Admin: 11/12/15 09:21 Dose: 650 mg Bethanechol Chloride (Urecholine) 50 mg PO TID [facility] Last Admin: 11/13/15 17:08 Dose: 50 mg Clonazepam (Klonopin) 0.5 mg PO DAILY [facility] Last Admin: 11/13/15 09:53 Dose: 0.5 mg Cyclobenzaprine HCl (Flexeril) 10 mg PO HS PRN PRN Reason: Muscle spasm Last Admin: 11/08/15 09:10 Dose: 10 mg Docusate Sodium (Colace Liquid) 100 mg PO BID [facility] Last Admin: 11/13/15 17:07 Dose: Not Given Fluocinonide (Lidex 0.05% Oint) 1 applic TOP BID [facility] Last Admin: 11/13/15 09:42 Dose: 1 applic Gabapentin (Neurontin) 600 mg PO TID [facility] Last Admin: 11/13/15 17:08 Dose: 600 mg Home Med (Patient's Own Medication) 1 unit PO TID@0500,1300,2100 [facility] Last Admin: 11/13/15 13:13 Dose: 1 unit Levofloxacin/Dextrose (Levaquin 500mg) 100 mls @ 100 mls/hr IVPB DAILY@2300 [facility] Last Admin: 11/12/15 21:59 Dose: 100 mls/hr Lidocaine (Lidoderm) 1 ea TD DAILY [facility] Last Admin: 11/13/15 09:42 Dose: 1 ea Midodrine (Proamatine) 5 mg PO TID [facility] Last Admin: 11/13/15 17:08 Dose: 5 mg Nystatin (Nystop Topical Powder) 1 applic TOP TID [facility] Last Admin: 11/13/15 17:08 Dose: 1 units Tamsulosin HCl (Flomax) 0.4 mg PO DAILY [facility] Last Admin: 11/13/15 09:41 Dose: 0.4 mg Tramadol HCl (Ultram) 50 mg PO Q6 PRN PRN Reason: Pain, moderate (4-7) Last Admin: 11/12/15 08:59 Dose: 50 mg - Labs Labs: 11/13/15 06:25 11/13/15 06:25 - Respiratory Exam Respiratory Exam: NORMAL BREATHING PATTERN - Cardiovascular Exam Cardiovascular Exam: REGULAR RHYTHM - GI/Abdominal Exam GI & Abdominal Exam: Normal Bowel Sounds Assessment and Plan - Assessment and Plan (Free Text) Assessment: Pnuemonia Hypoxia ABX Cultures pending Pulmonary and ID note appreciated Urinary retention [facility] S/P UTI tx Urine culture Proteus MSA Parkinson Dx PT L shoulder pain x rays neg R leg pain LBP Hx of HNP Neuro consult venous doppler negative PT R shoulder pain Dislocation Ortho PT Disposition?? Pt is competent Social service and family involved Pt is [place] WWII RLE rash Dermatiis vs cellulitis?? ID consult appreciated
--- NOTE | 2015-11-14 01:43 | CP.CCUPN ---
CCU Objective - Vital Signs / Intake & Output Vital Signs (Last 4 hours): Vital Signs Temp Pulse Resp BP Pulse Ox 11/14/15 00:06 97.6 F 69 18 93/60 L 98 - Medications Active Medications: Active Medications Generic Name Dose Route Start Last Admin Trade Name Freq PRN Reason Stop Dose Admin Acetaminophen 650 mg 10/04/15 16:37 11/12/15 09:21 Tylenol 325mg Tab PO 650 mg Q4 PRN Administration Fever Bethanechol Chloride 50 mg 11/10/15 21:00 11/13/15 17:08 Urecholine PO 50 mg TID TU Administration Docusate Sodium 100 mg 10/23/15 17:00 11/13/15 17:07 Colace Liquid PO Not Given BID TU Fluocinonide 1 applic 09/06/15 17:00 11/13/15 09:42 Lidex 0.05% Oint TOP 1 applic BID TU Administration Gabapentin 600 mg 07/11/15 09:00 11/13/15 17:08 Neurontin PO 600 mg TID TU Administration Home Med 1 unit 10/03/15 21:00 11/13/15 21:48 Patient's Own Medication PO 1 unit TID@0500,1300,2100 TU Administration Levofloxacin/Dextrose 100 mls @ 100 mls/hr 11/08/15 23:00 11/13/15 21:59 Levaquin 500mg IVPB 100 mls/hr DAILY@2300 TU Administration Sodium Chloride 1,000 mls @ 999 mls/hr 11/14/15 01:45 Sodium Chloride 0.9% IV 11/15/15 01:46 .Q1H1M TU Sodium Chloride 1,000 mls @ 75 mls/hr 11/14/15 01:45 Sodium Chloride 0.9% IV 11/15/15 01:46 .[id number] TU Lidocaine 1 ea 10/15/15 11:45 11/13/15 09:42 Lidoderm TD 1 ea DAILY TU Administration Midodrine 5 mg 07/11/15 09:00 11/13/15 17:08 Proamatine PO 5 mg TID TU Administration Nystatin 1 applic 11/09/15 13:00 11/13/15 17:08 Nystop Topical Powder TOP 1 units TID TU Administration Tamsulosin HCl 0.4 mg 11/10/15 21:00 11/13/15 09:41 Flomax PO 0.4 mg DAILY TU Administration - Patient Studies Lab Studies: Microbiology Studies 11/08/15 22:45 Blood Culture - Final Blood-Venous NO GROWTH AFTER 5 DAYS Gram Stain - Final TEST NOT PERFORMED 11/08/15 22:35 Blood Culture - Final Blood-Venous NO GROWTH AFTER 5 DAYS Gram Stain - Final TEST NOT PERFORMED Lab Studies 11/13/15 Range/Units 06:25 WBC 8.0 (4.8-10.8) K/uL RBC 3.65 L (4.40-5.90) Mil/uL Hgb 10.8 L (12.0-18.0) g/dL Hct 32.9 L (35.0-51.0) % MCV 90.4 (80.0-94.0) fl MCH 29.7 (27.0-31.0) pg MCHC 32.8 L (33.0-37.0) g/dL RDW 14.2 (11.5-14.5) % Plt Count 156 (130-400) K/uL Sodium 138 (132-148) mmol/l Potassium 4.3 (3.6-5.0) MMOL/L Chloride 100 (98-107) mmol/L Carbon Dioxide 25 (22-30) mmol/L Anion Gap 17 (10-20) BUN 17 (9-20) mg/dl Creatinine 0.7 L (0.8-1.5) mg/dL Est GFR ( Amer) > 60 Est GFR (Non-Af Amer) > 60 Random Glucose 119 H (75-110) mg/dL Calcium 9.1 (8.4-10.2) mg/dL Laboratory Results - last 24 hr 11/13/15 06:25 WBC 8.0 RBC 3.65 L Hgb 10.8 L Hct 32.9 L MCV 90.4 MCH 29.7 MCHC 32.8 L RDW 14.2 Plt Count 156 Sodium 138 Potassium 4.3 Chloride 100 Carbon Dioxide 25 Anion Gap 17 BUN 17 Creatinine 0.7 L Est GFR ( Amer) > 60 Est GFR (Non-Af Amer) > 60 Random Glucose 119 H Calcium 9.1 Critical Care Progress Note - Nutrition Nutrition: Nutrition Category Date Time Status Dysphagia/Modified Consistency Diet [DIET] Diets 10/02/15 Lunch Active
[2015-11-14] MEDS: Sodium Chloride 0.9% 1,000 ML IV SCH ×4 (01:45→16:38)
[2015-11-14 01:55] LABS: BLOOD UREA NITROGEN 16 mg/dl (9-20); GFR AFRICAN-AMERICAN > 60; GFR NON-AFRICAN AMERICAN > 60
--- NOTE | 2015-11-14 01:55 | PCM.RRTMUL ---
<Paty Petty - Last Filed: 11/14/15 01:56> LOGGING TRACTOR OPERATOR Nurse Assessment - Situation LOGGING TRACTOR OPERATOR Reason for Call: Hypotension LOGGING TRACTOR OPERATOR Called By: RN - IV IV Fluids Initiated During LOGGING TRACTOR OPERATOR?: yes - Normal saline Responder Note - Time LOGGING TRACTOR OPERATOR was called Time LOGGING TRACTOR OPERATOR was called:: 01:13 - Location Location: [facility] Discovered by:: RN - LOGGING TRACTOR OPERATOR Team LOGGING TRACTOR OPERATOR Leader:: Dale Livingston ICU Nurse:: Lurdes Resident:: Paty Petty - Vital Signs at Initial Assessment Blood Pressure:: 74/41 Pulse Rate:: 68 Respiratory Rate:: 18 O2 Sat by Pulse Oximetry:: 100 - Acute Change in Patient Acute Change in Patient: (Select all that apply): Acute change in SBP below 90mmHg - Chest Pain Chest Pain:(If answer is yes, complete next 2 questions): No - Seizure Seizure:: No - Neurological Status Other:: baseline dementia - Assessment of Findings LOGGING TRACTOR OPERATOR Interventions: 1L bolus NS Labs: CBC, BMP IV Fluids: 1 L normal saline bolus Summary - Summary of Event Summary of Event: 85 y/o male with history Parkinsonism & chronic A fib admitted originally with shingles ,and has been awaiting discharge to [place], as he is unable to care for himself. LOGGING TRACTOR OPERATOR was called by RN who noted pt to be hypotensive with BP 74/41. BP was retaken at which time systolic BP was noted to be 90. Physical: Elderly male, baseline dementia Heart - irregularly irregular rhythm Pulm - decreased breath sounds at b/l bases Abdomen - soft, ND, NT Ext - tremor in b/l upper extremities with rigidity noted Levin draining very small amount of light jcarlos colored urine A/P: Hypotensive likely from dehydration/decreased PO intake. - 1 liter of normal saline bolus started immediately - Pt's head slightly lowered and legs elevated in bed - LOGGING TRACTOR OPERATOR monitor which showed pt to be in A. fib, rate controlled, with HR 70s-80s - CBC, BMP drawn - Repeat BPs 107/67 & 101/60 with HR in 80s. - After 1L bolus, pt to be continued on IVF with NS @ 75cc/hr x 1 L. Outcomes - LOGGING TRACTOR OPERATOR Outcomes LOGGING TRACTOR OPERATOR Outcomes: Pt stable. To remain on [address]. <Dale Livingston - Last Filed: 11/14/15 06:53> LOGGING TRACTOR OPERATOR Nurse Assessment - Situation LOGGING TRACTOR OPERATOR Responder Arrival Time:: 23:33 (Pte examined shulder to shoulder withdr Hopkins. discussed in depth the case and i agree with the assessment and elvia outlined above which reflect my direct input.Ptesteban has poor appetiteand appears to be dehydrated.he is Hypotensive, SBP in the 70s lying in meredith position, increasing to 113when placed in [place]. he was then given 1000mls of normal salinebolusand continued with 75mlx/hr.) Location:: Hospitalist Covering Critical Care. Critical Care Time 25mins.
[2015-11-14 01:56] LABS: HEMOGLOBIN 10.6 g/dL (12.0-18.0); MEAN CELL VOLUME 89.9 fl (80.0-94.0); MEAN CORPUSCULAR HEMOGLOBIN 29.7 pg (27.0-31.0); MEAN CORPUSCULAR HGB CONC 33.1 g/dL (33.0-37.0); RBC 3.56 Mil/uL (4.40-5.90); RED CELL DISTRIBUTION WIDTH 14.1 % (11.5-14.5); WHITE BLOOD COUNT 9.1 K/uL (4.8-10.8)
--- NOTE | 2015-11-14 07:53 | PCM.RRTMUL ---
PANTOGRAPH WATCHER Nurse Assessment - Situation PANTOGRAPH WATCHER Responder Arrival Time:: 23:33 (Pte examined shulder to shoulder withdr Hopkins. discussed in depth the case and i agree with the assessment and elvia outlined above which reflect my direct input.Ptesteban has poor appetiteand appears to be dehydrated.he is Hypotensive, SBP in the 70s lying in meredith position, increasing to 113when placed in [place]. he was then given 1000mls of normal salinebolusand continued with 75mlx/hr.) Location:: Hospitalist Covering Critical Care. Critical Care Time 25mins. - IV IV Inserted during PANTOGRAPH WATCHER?: No IV Fluids Initiated During PANTOGRAPH WATCHER?: Normal Saline 1 liter Bolus. Then placed on Normal Saline at 75ml/hr. - Respiratory Oxygen Delivery Method:: Nasal Cannula Received Nebulizer Treatments:: No Was the Patient Ventilated with Bag/Mask 100% O2?: No (N/A) Secretions Suctioned?: No (N/A) Was the Patient Intubated?: No (N/A) - Diagnostic Test Ordered EKG:: No Chest X-Ray:: No CT Scan:: No - Stat Labs Ordered PANTOGRAPH WATCHER Stat Labs Ordered:: CBC, BMP CPR started during PANTOGRAPH WATCHER?: No - Vital Signs Blood Pressure:: 83/60 Pulse Rate:: 75 Respiratory Rate:: 17 Oxygen Saturation:: 95 - Time PANTOGRAPH WATCHER Ended Time PANTOGRAPH WATCHER Ended:: 01:45 - Vital Signs at end of PANTOGRAPH WATCHER Blood Pressure:: 101/60 Pulse Rate:: 79 Respiratory Rate:: 34 O2 Sat by Pulse Oximetry:: 94 - Recommendations 5) PANTOGRAPH WATCHER Level of Care Recommendations: Remain in current setting Responder Note - Time PANTOGRAPH WATCHER was called Time PANTOGRAPH WATCHER was called:: 07:41 - Location Location: 6S Discovered by:: Staff - PANTOGRAPH WATCHER Team PANTOGRAPH WATCHER Leader:: Dale Livingston Resident:: Bree Lyles - Vital Signs at Initial Assessment Blood Pressure:: 89/52 Pulse Rate:: 97 Respiratory Rate:: 16 O2 Sat by Pulse Oximetry:: 96 - Acute Change in Patient Acute Change in Patient: (Select all that apply): Acute change in SBP below 90mmHg - Chest Pain Chest Pain:(If answer is yes, complete next 2 questions): No - Seizure Seizure:: No New Onset:: No - Neurological Status Neurological Status (Select all that apply):: Alert, Responsive, Verbal, Follows Commands - Respiratory PANTOGRAPH WATCHER Delivery Method:: Nasal Cannula @L/min Oxygen Flow Rate:: 2 - Gastro-Intestinal Current Diet Ordered: Thin liquids PANTOGRAPH WATCHER Accucheck: 115 - Assessment of Findings PANTOGRAPH WATCHER Interventions: 500ml bolus EKG: Not indicated at this time Labs: Not indicated at this time IV Fluids: NS 0.9% Summary - Summary of Event Summary of Event: 85M PMH of Parkinson's, A-fib admitted for pneumonia hypotensive with "HR 211". PANTOGRAPH WATCHER called last night as well. Pt denies SOB, chest pain. Staff denies any seizure like activity, dyspnea, or change in mental status. General: Awake, alert, following commands, position/mild tremor c/w hx of Parkinson's Pulm: Good inspiratory effort, no wheeze, no rales, decreased b/l bases Cardiac: IRR, not tachycardic on arrival Abd: soft, ND/NT Mucous membranes dry A/P: 85M poor oral intake, started on IVF last night, bladder scan negative for retention, review of morning labs w/o acute derangements. This picture is c/w hypovolemia. - Pt stable to remain on floor - 500ml NS bolus - After bolus resume maintenance IVF rate as per MD orders - Cannot rely on automated HR 2/2 to resting tremor
[2015-11-14] MEDS: Lidocaine 5% Patch TD SCH (09:05)
[2015-11-14] MEDS: Bethanechol 50 MG TAB PO SCH ×3 (09:05→16:38)
--- NOTE | 2015-11-14 10:54 | CP.PCM.PN ---
Subjective - Date & Time of Evaluation Date of Evaluation: 11/14/15 Time of Evaluation: 10:29 - Subjective Subjective: Interim events noted. Awake communicative this AM. Zuniga draining concentrated urine with blood clots. Has remained afebrile, BP running low normal. No cyanosis, trachea midline. Breath sounds are diminished but present bilaterally. [id number] rales are present in the lung bases posteriorly (L>R). No audible wheezes or bronchial breathing. Basilar atelectasis/pneumonia on antibiotic rx. Hypotension, but no lab signs of dehydration. Procalcitonin requested. If he continues to be hypotensive would request ID revisit for potential antibiotic changes. with zuniga catheter in place maybe his Flomax can be temporarily suspended. Objective - Vital Signs/Intake and Output Vital Signs (last 24 hours): Temp Pulse Resp BP Pulse Ox 96.8 F L 100 H 20 93/51 L 94 L 11/14/15 09:15 11/14/15 09:15 11/14/15 09:15 11/14/15 09:15 11/14/15 09:15 - Medications Medications: Current Medications Acetaminophen (Tylenol 325mg Tab) 650 mg PO Q4 PRN PRN Reason: Fever Last Admin: 11/12/15 09:21 Dose: 650 mg Bethanechol Chloride (Urecholine) 50 mg PO TID [facility] Last Admin: 11/14/15 09:05 Dose: 50 mg Docusate Sodium (Colace Liquid) 100 mg PO BID [facility] Last Admin: 11/14/15 09:04 Dose: 100 mg Fluocinonide (Lidex 0.05% Oint) 1 applic TOP BID [facility] Last Admin: 11/14/15 09:05 Dose: 1 applic Gabapentin (Neurontin) 600 mg PO TID [facility] Last Admin: 11/14/15 09:05 Dose: 600 mg Home Med (Patient's Own Medication) 1 unit PO TID@0500,1300,2100 [facility] Last Admin: 11/14/15 04:42 Dose: 1 unit Levofloxacin/Dextrose (Levaquin 500mg) 100 mls @ 100 mls/hr IVPB DAILY@2300 [facility] Last Admin: 11/13/15 21:59 Dose: 100 mls/hr Sodium Chloride (Sodium Chloride 0.9%) 1,000 mls @ 999 mls/hr IV .Q1H1M [facility] Stop: 11/15/15 01:46 Last Admin: 11/14/15 09:06 Dose: 999 mls/hr Sodium Chloride (Sodium Chloride 0.9%) 1,000 mls @ 75 mls/hr IV .[id number] [facility] Stop: 11/15/15 01:46 Last Admin: 11/14/15 02:20 Dose: 75 mls/hr Lidocaine (Lidoderm) 1 ea TD DAILY [facility] Last Admin: 11/14/15 09:05 Dose: 1 ea Midodrine (Proamatine) 5 mg PO TID [facility] Last Admin: 11/14/15 09:06 Dose: 5 mg Nystatin (Nystop Topical Powder) 1 applic TOP TID [facility] Last Admin: 11/14/15 09:06 Dose: 1 units Tamsulosin HCl (Flomax) 0.4 mg PO DAILY [facility] Last Admin: 11/14/15 09:05 Dose: 0.4 mg - Labs Labs: 11/14/15 01:35 11/14/15 01:35 Assessment and Plan (1) Pneumonia Status: Acute
--- NOTE | 2015-11-14 12:59 | CARD ---
APPROVED REPORT EKG Measurement Heart [id number] <Conclusion> Atrial fibrillation Nonspecific ST abnormality Abnormal ECG
[2015-11-14 15:25] LABS: CK-MB 1.96 ng/mL (0.0-3.38)
--- NOTE | 2015-11-14 15:30 | CP.PCM.CON ---
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 Reported Pts PO intake poor and noted to clinically dehydrated and given IVF boluses. Pt alert and verbal upon examination. Past Patient History - Tetanus Immunizations Tetanus Immunization: Unknown - Past Medical History & Family History Past Medical History?: Yes - Past Social History Smoking Status: Never Smoked - CARDIAC Hx Cardiac Disorders: No Hx Congestive Heart Failure: No Hx Hypercholesterolemia: No Hx Hypertension: No - PULMONARY Hx Chronic Obstructive Pulmonary Disease (COPD): No - NEUROLOGICAL HX Cerebrovascular Accident: No - HEENT Hx HEENT Problems: Yes Hx Cataracts: No Hx Deafness: No Hx Difficulty Chewing: No Hx Epistaxis: No Hx Glaucoma: Yes Hx Macular Degeneration: No - RENAL Hx Renal Failure: No - ENDOCRINE/METABOLIC Hx Diabetes Mellitus Type 1: No Hx Diabetes Mellitus Type 2: No Hx Hypothyroidism: No - HEMATOLOGICAL/ONCOLOGICAL Hx Anemia: No Hx Human Immunodeficiency Virus (HIV): No Hx Sickle Cell Disease: No - INTEGUMENTARY Hx Dermatological Problems: No Hx Basil Cell: No Hx Silva: No Hx Cellulitis: Yes (right leg) Hx Eczema: No Hx Melanoma: No Hx Psoriasis: No Hx Squamous Cell: No - MUSCULOSKELETAL/RHEUMATOLOGICAL Hx Arthritis: No Hx Rheumatoid Arthritis: No - GASTROINTESTINAL Hx Crohn's Disease: No Hx Diverticulitis: No Hx Gall Bladder Disease: No Hx Gastritis: No Hx Pancreatitis: No - GENITOURINARY/GYNECOLOGICAL Hx Sexually Transmitted Disorders: No - PSYCHIATRIC Hx Anxiety: Yes Hx Depression: Yes - SURGICAL HISTORY Hx Appendectomy: Yes Hx Carotid Endarterectomy: No Hx Cholecystectomy: No Hx Coronary Artery Bypass Graft: No Hx Coronary Stent: No Hx Tonsillectomy: Yes - ANESTHESIA Hx Anesthesia: Yes Hx Anesthesia Reactions: No Hx Malignant Hyperthermia: No Meds Allergies/Adverse Reactions: Allergies Allergy/AdvReac Type Severity Reaction Status Date / Time Penicillins Allergy Hives Verified 08/01/15 06:34 - Medications Medications: Current Medications Acetaminophen (Tylenol 325mg Tab) 650 mg PO Q4 PRN PRN Reason: Fever Last Admin: 11/12/15 09:21 Dose: 650 mg Bethanechol Chloride (Urecholine) 50 mg PO TID [facility] Last Admin: 11/14/15 13:26 Dose: 50 mg Docusate Sodium (Colace Liquid) 100 mg PO BID [facility] Last Admin: 11/14/15 09:04 Dose: 100 mg Fluocinonide (Lidex 0.05% Oint) 1 applic TOP BID [facility] Last Admin: 11/14/15 09:05 Dose: 1 applic Gabapentin (Neurontin) 600 mg PO TID [facility] Last Admin: 11/14/15 13:26 Dose: 600 mg Home Med (Patient's Own Medication) 1 unit PO TID@0500,1300,2100 [facility] Last Admin: 11/14/15 13:26 Dose: 1 unit Levofloxacin/Dextrose (Levaquin 500mg) 100 mls @ 100 mls/hr IVPB DAILY@2300 [facility] Last Admin: 11/13/15 21:59 Dose: 100 mls/hr Sodium Chloride (Sodium Chloride 0.9%) 1,000 mls @ 999 mls/hr IV .Q1H1M [facility] Stop: 11/15/15 01:46 Last Admin: 11/14/15 09:06 Dose: 999 mls/hr Sodium Chloride (Sodium Chloride 0.9%) 1,000 mls @ 75 mls/hr IV .[id number] [facility] Stop: 11/15/15 01:46 Last Admin: 11/14/15 02:20 Dose: 75 mls/hr Lidocaine (Lidoderm) 1 ea TD DAILY [facility] Last Admin: 11/14/15 09:05 Dose: 1 ea Midodrine (Proamatine) 5 mg PO TID [facility] Nystatin (Nystop Topical Powder) 1 applic TOP TID [facility] Last Admin: 11/14/15 09:06 Dose: 1 units Tamsulosin HCl (Flomax) 0.4 mg PO DAILY [facility] Last Admin: 11/14/15 09:05 Dose: 0.4 mg Physical Exam - Neck Exam Neck exam: Positive for: Normal Inspection - Respiratory Exam Respiratory Exam: Decreased Breath Sounds - Cardiovascular Exam Cardiovascular Exam: Irregular Rhythm - GI/Abdominal Exam GI & Abdominal Exam: Normal Bowel Sounds - Extremities Exam Extremities exam: Positive for: normal inspection Results - Vital Signs Recent Vital Signs: Last Vital Signs Temp 96.8 F L 11/14/15 09:15 Pulse 105 H 11/14/15 13:37 Resp 20 11/14/15 09:15 BP 109/85 05/03/16 13:37 Pulse Ox 94 L 11/14/15 09:15 - Labs Result Diagrams: 11/14/15 01:35 11/14/15 01:35 Labs: Laboratory Results - last 24 hr 11/14/15 11/14/15 01:14 01:35 WBC 9.1 RBC 3.56 L Hgb 10.6 L Hct 32.0 L MCV 89.9 MCH 29.7 MCHC 33.1 RDW 14.1 Plt Count 149 Sodium 137 Potassium 4.4 Chloride 98 Carbon Dioxide 27 Anion Gap 17 BUN 16 Creatinine 0.7 L Est GFR ( Amer) > 60 Est GFR (Non-Af Amer) > 60 POC Glucose (mg/dL) 116 H Random Glucose 108 Calcium 9.0 - Impressions Impression: Agree with IVF hydration pt clinically dehydrated Hypotension a combination of dehydration and autonomic dysfunction Would dc alpha ashli as will make hypotension worse Would continue hydration Would Increase Midodrine to maximum dose 10mg tid Assessment/Plan - Assessment and Plan (Free Text) Plan: Increase Midodrine 10mg tid Continue Hydration Stop Alpha Ashli if possible
--- NOTE | 2015-11-14 15:34 | CP.PCM.PN ---
Subjective - Date & Time of Evaluation Date of Evaluation: 11/14/15 Time of Evaluation: 15:33 - Subjective Subjective: Pt seen today self inflicted btrauma to cath. Currently urine clearing. Will advise to remove zuniga tomorrow Objective - Vital Signs/Intake and Output Vital Signs (last 24 hours): Temp Pulse Resp BP Pulse Ox 96.8 F L 105 H 20 109/85 94 L 11/14/15 09:15 11/14/15 13:37 11/14/15 09:15 11/14/15 13:37 11/14/15 09:15 - Medications Medications: Current Medications Acetaminophen (Tylenol 325mg Tab) 650 mg PO Q4 PRN PRN Reason: Fever Last Admin: 11/12/15 09:21 Dose: 650 mg Bethanechol Chloride (Urecholine) 50 mg PO TID [facility] Last Admin: 11/14/15 13:26 Dose: 50 mg Docusate Sodium (Colace Liquid) 100 mg PO BID [facility] Last Admin: 11/14/15 09:04 Dose: 100 mg Fluocinonide (Lidex 0.05% Oint) 1 applic TOP BID [facility] Last Admin: 11/14/15 09:05 Dose: 1 applic Gabapentin (Neurontin) 600 mg PO TID [facility] Last Admin: 11/14/15 13:26 Dose: 600 mg Home Med (Patient's Own Medication) 1 unit PO TID@0500,1300,2100 [facility] Last Admin: 11/14/15 13:26 Dose: 1 unit Levofloxacin/Dextrose (Levaquin 500mg) 100 mls @ 100 mls/hr IVPB DAILY@2300 [facility] Last Admin: 11/13/15 21:59 Dose: 100 mls/hr Sodium Chloride (Sodium Chloride 0.9%) 1,000 mls @ 999 mls/hr IV .Q1H1M [facility] Stop: 11/15/15 01:46 Last Admin: 11/14/15 09:06 Dose: 999 mls/hr Sodium Chloride (Sodium Chloride 0.9%) 1,000 mls @ 75 mls/hr IV .[id number] [facility] Stop: 11/15/15 01:46 Last Admin: 11/14/15 02:20 Dose: 75 mls/hr Lidocaine (Lidoderm) 1 ea TD DAILY [facility] Last Admin: 11/14/15 09:05 Dose: 1 ea Midodrine (Proamatine) 5 mg PO TID [facility] Nystatin (Nystop Topical Powder) 1 applic TOP TID [facility] Last Admin: 11/14/15 09:06 Dose: 1 units Tamsulosin HCl (Flomax) 0.4 mg PO DAILY [facility] Last Admin: 11/14/15 09:05 Dose: 0.4 mg - Labs Labs: 11/14/15 01:35 11/14/15 01:35
[2015-11-14] MEDS: Cefepime 1 GM in Sodium Chloride 0.9% 100 ML IVPB SCH (20:38)
--- NOTE | 2015-11-14 20:53 | CP.PCM.PN ---
Subjective - Date & Time of Evaluation Date of Evaluation: 11/14/15 Time of Evaluation: 22:22 - Subjective Subjective: Above noted Objective - Vital Signs/Intake and Output Vital Signs (last 24 hours): Temp Pulse Resp BP Pulse Ox 98.2 F 112 H 20 97/65 L 100 11/14/15 16:19 11/14/15 16:19 11/14/15 16:19 11/14/15 16:19 11/14/15 16:19 Intake and Output: 11/14/15 11/15/15 18:59 06:59 Intake Total 1600 Output Total 800 Balance 800 - Medications Medications: Current Medications Acetaminophen (Tylenol 325mg Tab) 650 mg PO Q4 PRN PRN Reason: Fever Last Admin: 11/12/15 09:21 Dose: 650 mg Bethanechol Chloride (Urecholine) 50 mg PO TID [facility] Last Admin: 11/14/15 16:38 Dose: 50 mg Docusate Sodium (Colace Liquid) 100 mg PO BID [facility] Last Admin: 11/14/15 16:37 Dose: 100 mg Fluocinonide (Lidex 0.05% Oint) 1 applic TOP BID [facility] Last Admin: 11/14/15 16:39 Dose: 1 applic Gabapentin (Neurontin) 600 mg PO TID [facility] Last Admin: 11/14/15 16:37 Dose: 600 mg Home Med (Patient's Own Medication) 1 unit PO TID@0500,1300,2100 [facility] Last Admin: 11/14/15 20:38 Dose: 1 unit Sodium Chloride (Sodium Chloride 0.9%) 1,000 mls @ 999 mls/hr IV .[id number] [facility] Stop: 11/15/15 01:46 Last Admin: 11/14/15 09:06 Dose: 999 mls/hr Sodium Chloride (Sodium Chloride 0.9%) 1,000 mls @ 75 mls/hr IV .[id number] [facility] Stop: 11/15/15 01:46 Last Admin: 11/14/15 16:38 Dose: 75 mls/hr Cefepime HCl 1 gm/ Sodium (Chloride) 100 mls @ 100 mls/hr IVPB Q12 [facility] Last Admin: 11/14/15 20:38 Dose: 100 mls/hr Lidocaine (Lidoderm) 1 ea TD DAILY [facility] Last Admin: 05/03/16 09:05 Dose: 1 ea Nystatin (Nystop Topical Powder) 1 applic TOP TID [facility] Last Admin: 11/14/15 16:38 Dose: 1 units Tamsulosin HCl (Flomax) 0.4 mg PO DAILY [facility] Last Admin: 11/14/15 09:05 Dose: 0.4 mg - Labs Labs: 11/14/15 01:35 11/14/15 01:35 - Respiratory Exam Respiratory Exam: NORMAL BREATHING PATTERN - Cardiovascular Exam Cardiovascular Exam: Irregular Rhythm - GI/Abdominal Exam GI & Abdominal Exam: Normal Bowel Sounds Assessment and Plan - Assessment and Plan (Free Text) Assessment: Hypotension NATURALIZATION EXAMINER Dehydration Meds IVF adjust meds monitor urine output Pnuemonia Hypoxia ABX Cultures pending Urinary retention Levin d/c rema as per Urology S/P UTI tx Urine culture Proteus MSA Parkinson Dx PT L shoulder pain x rays neg R leg pain LBP Hx of HNP Neuro consult venous doppler negative PT R shoulder pain Dislocation Ortho PT Disposition?? Pt is competent Social service and family involved Pt is [place] RLE rash Dermatiis vs cellulitis?? ID consult appreciated
[2015-11-15] MEDS: Lidocaine 5% Patch TD SCH (08:39)
[2015-11-15] MEDS: Bethanechol 50 MG TAB PO SCH ×3 (08:39→16:47)
[2015-11-15] MEDS: Cefepime 1 GM in Sodium Chloride 0.9% 100 ML IVPB SCH ×2 (08:40→20:31)
--- NOTE | 2015-11-15 11:34 | CP.PCM.PN ---
Subjective - Date & Time of Evaluation Date of Evaluation: 11/15/15 Time of Evaluation: 09:30 - Subjective Subjective: alert and verbal Objective - Vital Signs/Intake and Output Vital Signs (last 24 hours): Temp Pulse Resp BP Pulse Ox 97.7 F 71 20 100/73 96 11/15/15 08:26 11/15/15 08:26 11/15/15 08:26 11/15/15 08:26 11/15/15 08:26 Intake and Output: 11/15/15 11/15/15 06:59 18:59 Intake Total 1600 Output Total 800 Balance 800 - Medications Medications: Current Medications Acetaminophen (Tylenol 325mg Tab) 650 mg PO Q4 PRN PRN Reason: Fever Last Admin: 11/12/15 09:21 Dose: 650 mg Bethanechol Chloride (Urecholine) 50 mg PO TID [facility] Last Admin: 11/15/15 08:39 Dose: 50 mg Docusate Sodium (Colace Liquid) 100 mg PO BID [facility] Last Admin: 11/15/15 08:39 Dose: 100 mg Fluocinonide (Lidex 0.05% Oint) 1 applic TOP BID [facility] Last Admin: 11/15/15 08:40 Dose: 1 applic Gabapentin (Neurontin) 600 mg PO TID [facility] Last Admin: 11/15/15 08:39 Dose: 600 mg Home Med (Patient's Own Medication) 1 unit PO TID@0500,1300,2100 [facility] Last Admin: 11/15/15 05:27 Dose: 1 unit Cefepime HCl 1 gm/ Sodium (Chloride) 100 mls @ 100 mls/hr IVPB Q12 [facility] Last Admin: 11/15/15 08:40 Dose: 100 mls/hr Lidocaine (Lidoderm) 1 ea TD DAILY [facility] Last Admin: 11/15/15 08:39 Dose: 1 ea Midodrine (Proamatine) 10 mg PO TID [facility] Nystatin (Nystop Topical Powder) 1 applic TOP TID [facility] Last Admin: 11/15/15 08:40 Dose: 1 units Tamsulosin HCl (Flomax) 0.4 mg PO DAILY [facility] Last Admin: 11/15/15 08:39 Dose: 0.4 mg - Labs Labs: 11/14/15 01:35 11/14/15 01:35 Assessment and Plan - Assessment and Plan (Free Text) Assessment: Hypotension improved with hydration Midodrine increased to 10mg tid Urology on consultation
[2015-11-15 11:59] LABS: PH,URINE 6.5 (5.0-8.0); URINE APPEARANCE CLEAR (CLEAR); URINE BILIRUBIN NEGATIVE (NEGATIVE); URINE BLOOD LARGE (NEGATIVE); URINE COLOR YELLOW (YELLOW); URINE GLUCOSE (UA) NEGATIVE (Normal); URINE PROTEIN 100 mg/dL (NEGATIVE)
[2015-11-15 12:00] LABS: URINE LEUKOCYTE ESTERASE NEGATIVE Leu/uL (NEGATIVE); URINE NITRATE NEGATIVE (NEGATIVE)
[2015-11-15 12:38] LABS: URINE CALCIUM OXALATE CRYSTALS TRACE /hpf (<OCC); URINE RBC TNTC /hpf (0-2)
[2015-11-15 12:39] LABS: URINE BACTERIA FEW (<OCC); URINE TRIPLE PHOSPHATE CRYSTAL TRACE /hpf (<OCC)
--- NOTE | 2015-11-15 17:25 | CP.PCM.PN ---
Subjective - Date & Time of Evaluation Date of Evaluation: 11/15/15 Time of Evaluation: 15:00 - Subjective Subjective: S/P ONLINE TRADER IV RX IN PROGRESS SEPSIS WORK UP DONE CARDIO ON BOARD Objective - Vital Signs/Intake and Output Vital Signs (last 24 hours): Temp Pulse Resp BP Pulse Ox 97.7 F 101 H 20 118/64 90 L 11/15/15 16:32 11/15/15 16:32 11/15/15 16:32 11/15/15 16:32 11/15/15 16:32 Intake and Output: 11/15/15 11/15/15 06:59 18:59 Intake Total 1600 Output Total 800 Balance 800 - Medications Medications: Current Medications Acetaminophen (Tylenol 325mg Tab) 650 mg PO Q4 PRN PRN Reason: Fever Last Admin: 11/12/15 09:21 Dose: 650 mg Bethanechol Chloride (Urecholine) 50 mg PO TID [facility] Last Admin: 11/15/15 16:47 Dose: 50 mg Docusate Sodium (Colace Liquid) 100 mg PO BID [facility] Last Admin: 11/15/15 16:45 Dose: Not Given Fluocinonide (Lidex 0.05% Oint) 1 applic TOP BID [facility] Last Admin: 11/15/15 16:47 Dose: 1 applic Gabapentin (Neurontin) 600 mg PO TID [facility] Last Admin: 11/15/15 16:46 Dose: 600 mg Home Med (Patient's Own Medication) 1 unit PO TID@0500,1300,2100 [facility] Last Admin: 11/15/15 12:19 Dose: 1 unit Cefepime HCl 1 gm/ Sodium (Chloride) 100 mls @ 100 mls/hr IVPB Q12 [facility] Last Admin: 11/15/15 08:40 Dose: 100 mls/hr Lidocaine (Lidoderm) 1 ea TD DAILY [facility] Last Admin: 11/15/15 08:39 Dose: 1 ea Midodrine (Proamatine) 10 mg PO TID [facility] Last Admin: 11/15/15 16:46 Dose: 10 mg Nystatin (Nystop Topical Powder) 1 applic TOP TID [facility] Last Admin: 11/15/15 16:46 Dose: 1 units Tamsulosin HCl (Flomax) 0.4 mg PO DAILY [facility] Last Admin: 11/15/15 08:39 Dose: 0.4 mg - Labs Labs: 11/14/15 01:35 11/14/15 01:35 - Constitutional Appears: Non-toxic - Head Exam Head Exam: NORMAL INSPECTION - Eye Exam Eye Exam: PERRL. absent: Scleral icterus - ENT Exam ENT Exam: Mucous Membranes Dry - Neck Exam Neck Exam: absent: Lymphadenopathy, Thyromegaly - Respiratory Exam Respiratory Exam: Decreased Breath Sounds, Clear to Ausculation Bilateral - Cardiovascular Exam Cardiovascular Exam: REGULAR RHYTHM, +S1, +S2 - GI/Abdominal Exam GI & Abdominal Exam: Distended, Soft. absent: Tenderness - Rectal Exam Rectal Exam: Deferred - Exam Exam: NORMAL INSPECTION - Extremities Exam Extremities Exam: absent: Calf Tenderness, Pedal Edema - Back Exam Back Exam: absent: CVA tenderness (L), CVA tenderness (R) - Neurological Exam Neurological Exam: Alert, Altered Assessment and Plan (1) Cellulitis and abscess of leg, except foot Status: Suspected (2) Fever Status: Acute
--- NOTE | 2015-11-15 19:35 | CP.PCM.PN ---
Subjective - Date & Time of Evaluation Date of Evaluation: 11/15/15 Time of Evaluation: 22:22 - Subjective Subjective: Improved Objective - Vital Signs/Intake and Output Vital Signs (last 24 hours): Temp Pulse Resp BP Pulse Ox 97.7 F 101 H 20 118/64 90 L 11/15/15 16:32 11/15/15 16:32 11/15/15 16:32 11/15/15 16:32 11/15/15 16:32 - Medications Medications: Current Medications Acetaminophen (Tylenol 325mg Tab) 650 mg PO Q4 PRN PRN Reason: Fever Last Admin: 11/12/15 09:21 Dose: 650 mg Bethanechol Chloride (Urecholine) 50 mg PO TID [facility] Last Admin: 11/15/15 16:47 Dose: 50 mg Docusate Sodium (Colace Liquid) 100 mg PO BID [facility] Last Admin: 11/15/15 16:45 Dose: Not Given Fluocinonide (Lidex 0.05% Oint) 1 applic TOP BID [facility] Last Admin: 11/15/15 16:47 Dose: 1 applic Gabapentin (Neurontin) 600 mg PO TID [facility] Last Admin: 11/15/15 16:46 Dose: 600 mg Home Med (Patient's Own Medication) 1 unit PO TID@0500,1300,2100 [facility] Last Admin: 11/15/15 12:19 Dose: 1 unit Cefepime HCl 1 gm/ Sodium (Chloride) 100 mls @ 100 mls/hr IVPB Q12 [facility] Last Admin: 11/15/15 08:40 Dose: 100 mls/hr Lidocaine (Lidoderm) 1 ea TD DAILY [facility] Last Admin: 11/15/15 08:39 Dose: 1 ea Midodrine (Proamatine) 10 mg PO TID [facility] Last Admin: 11/15/15 16:46 Dose: 10 mg Nystatin (Nystop Topical Powder) 1 applic TOP TID [facility] Last Admin: 11/15/15 16:46 Dose: 1 units Tamsulosin HCl (Flomax) 0.4 mg PO DAILY [facility] Last Admin: 11/15/15 08:39 Dose: 0.4 mg - Labs Labs: 11/14/15 01:35 11/14/15 01:35 - Respiratory Exam Respiratory Exam: NORMAL BREATHING PATTERN - Cardiovascular Exam Cardiovascular Exam: Irregular Rhythm, REGULAR RHYTHM - GI/Abdominal Exam GI & Abdominal Exam: Normal Bowel Sounds Assessment and Plan - Assessment and Plan (Free Text) 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 Pt is competent Social service and family involved Pt is [place] RLE rash Dermatiis vs cellulitis?? ID consult appreciated
[2015-11-16] MEDS: Lidocaine 5% Patch TD SCH (09:15)
[2015-11-16] MEDS: Cefepime 1 GM in Sodium Chloride 0.9% 100 ML IVPB SCH ×2 (09:16→20:49)
[2015-11-16] MEDS: Bethanechol 50 MG TAB PO SCH ×3 (09:17→16:30)
[2015-11-16] MEDS: LEVODOPA PO SCH ×2 (12:05→20:52)
[2015-11-16] MEDS: CARBIDOPA PO SCH ×2 (12:05→20:52)
--- NOTE | 2015-11-16 12:17 | CP.PCM.PN ---
Subjective - Date & Time of Evaluation Date of Evaluation: 11/16/15 Time of Evaluation: 11:50 - Subjective Subjective: alert verbal Objective - Vital Signs/Intake and Output Vital Signs (last 24 hours): Temp Pulse Resp BP Pulse Ox 97.6 F 77 20 123/68 96 11/16/15 08:24 11/16/15 08:24 11/16/15 08:24 11/16/15 08:24 11/16/15 08:24 - Medications Medications: Current Medications Acetaminophen (Tylenol 325mg Tab) 650 mg PO Q4 PRN PRN Reason: Fever Last Admin: 11/12/15 09:21 Dose: 650 mg Bethanechol Chloride (Urecholine) 50 mg PO TID [facility] Last Admin: 11/16/15 12:05 Dose: 50 mg Carbidopa/Levodopa (Rytary Er 48.75 Mg-195 Mg Cap) 1 cap PO TID@0500,1300,2100 [facility] Last Admin: 11/16/15 12:05 Dose: 1 cap Docusate Sodium (Colace Liquid) 100 mg PO BID [facility] Last Admin: 11/16/15 09:14 Dose: Not Given Fluocinonide (Lidex 0.05% Oint) 1 applic TOP BID [facility] Last Admin: 11/16/15 09:15 Dose: 1 applic Gabapentin (Neurontin) 600 mg PO TID [facility] Last Admin: 11/16/15 12:03 Dose: 600 mg Cefepime HCl 1 gm/ Sodium (Chloride) 100 mls @ 100 mls/hr IVPB Q12 [facility] Last Admin: 11/16/15 09:16 Dose: 100 mls/hr Lidocaine (Lidoderm) 1 ea TD DAILY [facility] Last Admin: 11/16/15 09:15 Dose: 1 ea Midodrine (Proamatine) 10 mg PO TID [facility] Last Admin: 11/16/15 12:04 Dose: 10 mg Nystatin (Nystop Topical Powder) 1 applic TOP TID [facility] Last Admin: 11/16/15 12:04 Dose: 1 units Tamsulosin HCl (Flomax) 0.4 mg PO DAILY [facility] Last Admin: 11/16/15 09:15 Dose: 0.4 mg - Labs Labs: 11/14/15 01:35 11/14/15 01:35 - Respiratory Exam Respiratory Exam: Clear to Ausculation Bilateral - Cardiovascular Exam Cardiovascular Exam: Irregular Rhythm - GI/Abdominal Exam GI & Abdominal Exam: Normal Bowel Sounds - Extremities Exam Extremities Exam: Normal Inspection Assessment and Plan - Assessment and Plan (Free Text) Assessment: pt hemodynamically stable Will sign off reconsult if indicated
--- NOTE | 2015-11-16 17:01 | CP.PCM.PN ---
Subjective - Date & Time of Evaluation Date of Evaluation: 11/16/15 Time of Evaluation: 13:00 - Subjective Subjective: CULTURES NEG THUS FAR IV RX RENEWED CLINICALLY IMPROVED Objective - Vital Signs/Intake and Output Vital Signs (last 24 hours): Temp Pulse Resp BP Pulse Ox 97.9 F 89 20 125/53 L 90 L 11/16/15 16:39 11/16/15 16:39 11/16/15 16:39 11/16/15 16:39 11/16/15 16:39 - Medications Medications: Current Medications Acetaminophen (Tylenol 325mg Tab) 650 mg PO Q4 PRN PRN Reason: Fever Last Admin: 11/12/15 09:21 Dose: 650 mg Bethanechol Chloride (Urecholine) 50 mg PO TID [facility] Last Admin: 11/16/15 16:30 Dose: 50 mg Carbidopa/Levodopa (Rytary Er 48.75 Mg-195 Mg Cap) 1 cap PO TID@0500,1300,2100 [facility] Last Admin: 11/16/15 12:05 Dose: 1 cap Docusate Sodium (Colace Liquid) 100 mg PO BID [facility] Last Admin: 11/16/15 16:27 Dose: Not Given Fluocinonide (Lidex 0.05% Oint) 1 applic TOP BID [facility] Last Admin: 11/16/15 16:28 Dose: 1 applic Gabapentin (Neurontin) 600 mg PO TID [facility] Last Admin: 11/16/15 16:28 Dose: 600 mg Cefepime HCl 1 gm/ Sodium (Chloride) 100 mls @ 100 mls/hr IVPB Q12 [facility] Last Admin: 11/16/15 09:16 Dose: 100 mls/hr Lidocaine (Lidoderm) 1 ea TD DAILY [facility] Last Admin: 11/16/15 09:15 Dose: 1 ea Midodrine (Proamatine) 10 mg PO TID [facility] Last Admin: 11/16/15 16:29 Dose: 10 mg Nystatin (Nystop Topical Powder) 1 applic TOP TID [facility] Last Admin: 11/16/15 16:29 Dose: 1 units Tamsulosin HCl (Flomax) 0.4 mg PO DAILY [facility] Last Admin: 11/16/15 09:15 Dose: 0.4 mg - Labs Labs: 11/14/15 01:35 11/14/15 01:35 Assessment and Plan (1) Cellulitis and abscess of leg, except foot Status: Suspected (2) Fever Status: Acute
--- NOTE | 2015-11-16 21:15 | CP.PCM.PN ---
Subjective - Date & Time of Evaluation Date of Evaluation: 11/16/15 Time of Evaluation: 22:22 - Subjective Subjective: Doing well Objective - Vital Signs/Intake and Output Vital Signs (last 24 hours): Temp Pulse Resp BP Pulse Ox 97.9 F 89 20 125/53 L 90 L 11/16/15 16:39 11/16/15 16:39 11/16/15 16:39 11/16/15 16:39 11/16/15 16:39 - Medications Medications: Current Medications Acetaminophen (Tylenol 325mg Tab) 650 mg PO Q4 PRN PRN Reason: Fever Last Admin: 11/12/15 09:21 Dose: 650 mg Bethanechol Chloride (Urecholine) 50 mg PO TID [facility] Last Admin: 11/16/15 16:30 Dose: 50 mg Carbidopa/Levodopa (Rytary Er 48.75 Mg-195 Mg Cap) 1 cap PO TID@0500,1300,2100 [facility] Last Admin: 11/16/15 20:52 Dose: 1 cap Docusate Sodium (Colace Liquid) 100 mg PO BID [facility] Last Admin: 11/16/15 16:27 Dose: Not Given Fluocinonide (Lidex 0.05% Oint) 1 applic TOP BID [facility] Last Admin: 11/16/15 16:28 Dose: 1 applic Gabapentin (Neurontin) 600 mg PO TID [facility] Last Admin: 11/16/15 16:28 Dose: 600 mg Cefepime HCl 1 gm/ Sodium (Chloride) 100 mls @ 100 mls/hr IVPB Q12 [facility] Last Admin: 11/16/15 20:49 Dose: 100 mls/hr Lidocaine (Lidoderm) 1 ea TD DAILY [facility] Last Admin: 11/16/15 09:15 Dose: 1 ea Midodrine (Proamatine) 10 mg PO TID [facility] Last Admin: 11/16/15 16:29 Dose: 10 mg Nystatin (Nystop Topical Powder) 1 applic TOP TID [facility] Last Admin: 11/16/15 16:29 Dose: 1 units Tamsulosin HCl (Flomax) 0.4 mg PO DAILY [facility] Last Admin: 11/16/15 09:15 Dose: 0.4 mg - Labs Labs: 11/14/15 01:35 11/14/15 01:35 - Respiratory Exam Respiratory Exam: NORMAL BREATHING PATTERN - Cardiovascular Exam Cardiovascular Exam: REGULAR RHYTHM - GI/Abdominal Exam GI & Abdominal Exam: Normal Bowel Sounds Assessment and Plan - Assessment and Plan (Free Text) 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 Pt is competent Social service and family involved Pt is [place] RLE rash Dermatiis vs cellulitis?? ID consult appreciated
[2015-11-17] MEDS: CARBIDOPA PO SCH ×3 (05:51→21:42)
[2015-11-17] MEDS: LEVODOPA PO SCH ×3 (05:51→21:42)
[2015-11-17] MEDS: Lidocaine 5% Patch TD SCH (08:12)
[2015-11-17] MEDS: Bethanechol 50 MG TAB PO SCH ×3 (08:13→16:12)
[2015-11-17] MEDS: Cefepime 1 GM in Sodium Chloride 0.9% 100 ML IVPB SCH ×2 (08:15→21:41)
[2015-11-17 10:25] LABS: URINE APPEARANCE CLEAR (CLEAR); URINE BILIRUBIN NEGATIVE (NEGATIVE); URINE BLOOD MODERATE (NEGATIVE); URINE COLOR LIGHT YELLOW (YELLOW); URINE GLUCOSE (UA) NEGATIVE (Normal); URINE LEUKOCYTE ESTERASE TRACE Leu/uL (NEGATIVE); URINE NITRATE NEGATIVE (NEGATIVE); URINE PROTEIN 30 mg/dL (NEGATIVE); URINE UROBILINOGEN 0.2 EU/dL (0.0-0.2)
[2015-11-17 11:36] LABS: URINE BACTERIA FEW (<OCC); URINE CALCIUM OXALATE CRYSTALS OCC /hpf (<OCC)
[2015-11-17 11:39] LABS: URINE WBC 20 - 25 /hpf (0-6)
[2015-11-17 11:40] LABS: URINE RBC 25 - 30 /hpf (0-2)
--- NOTE | 2015-11-17 13:30 | CP.PCM.PN ---
Subjective - Date & Time of Evaluation Date of Evaluation: 11/17/15 Time of Evaluation: 10:00 - Subjective Subjective: IMPROVING SOMEWHAT MORE ALERT AFEB NO SOB OR CHEST PAIN Objective - Vital Signs/Intake and Output Vital Signs (last 24 hours): Temp Pulse Resp BP Pulse Ox 97.3 F L 54 L 20 92/49 L 99 11/17/15 07:49 11/17/15 07:49 11/17/15 07:49 11/17/15 07:49 11/17/15 07:49 - Medications Medications: Current Medications Acetaminophen (Tylenol 325mg Tab) 650 mg PO Q4 PRN PRN Reason: Fever Last Admin: 11/12/15 09:21 Dose: 650 mg Bethanechol Chloride (Urecholine) 50 mg PO TID [facility] Last Admin: 11/17/15 12:26 Dose: 50 mg Carbidopa/Levodopa (Rytary Er 48.75 Mg-195 Mg Cap) 1 cap PO TID@0500,1300,2100 [facility] Last Admin: 11/17/15 12:25 Dose: 1 cap Docusate Sodium (Colace Liquid) 100 mg PO BID [facility] Last Admin: 11/17/15 08:12 Dose: 100 mg Fluocinonide (Lidex 0.05% Oint) 1 applic TOP BID [facility] Last Admin: 11/17/15 08:12 Dose: 1 applic Gabapentin (Neurontin) 600 mg PO TID [facility] Last Admin: 11/17/15 12:24 Dose: 600 mg Cefepime HCl 1 gm/ Sodium (Chloride) 100 mls @ 100 mls/hr IVPB Q12 [facility] Last Admin: 11/17/15 08:15 Dose: 100 mls/hr Sodium Chloride (Sodium Chloride 0.9%) 1,000 mls @ 50 mls/hr IV .Q20H [facility] Stop: 11/18/15 08:31 Last Admin: 11/17/15 09:34 Dose: 50 mls/hr Lidocaine (Lidoderm) 1 ea TD DAILY [facility] Last Admin: 11/17/15 08:12 Dose: 1 ea Midodrine (Proamatine) 10 mg PO TID [facility] Last Admin: 11/17/15 12:25 Dose: 10 mg Nystatin (Nystop Topical Powder) 1 applic TOP TID [facility] Last Admin: 11/17/15 12:25 Dose: 1 units Tamsulosin HCl (Flomax) 0.4 mg PO DAILY [facility] Last Admin: 11/17/15 08:12 Dose: 0.4 mg - Labs Labs: 11/14/15 01:35 11/14/15 01:35 - Constitutional Appears: Non-toxic, Chronically Ill - Head Exam Head Exam: NORMOCEPHALIC - Eye Exam Eye Exam: absent: Scleral icterus - ENT Exam ENT Exam: Mucous Membranes Dry - Neck Exam Neck Exam: absent: Lymphadenopathy, Thyromegaly - Respiratory Exam Respiratory Exam: Decreased Breath Sounds, Clear to Ausculation Bilateral - Cardiovascular Exam Cardiovascular Exam: REGULAR RHYTHM, +S1, +S2 - GI/Abdominal Exam GI & Abdominal Exam: Distended, Soft. absent: Tenderness - Rectal Exam Rectal Exam: Deferred - Exam Exam: NORMAL INSPECTION - Extremities Exam Extremities Exam: absent: Calf Tenderness, Pedal Edema - Back Exam Back Exam: absent: CVA tenderness (L), CVA tenderness (R) - Neurological Exam Neurological Exam: Alert, Altered - Psychiatric Exam Psychiatric exam: Depressed - Skin Skin Exam: Dry Assessment and Plan (1) Cellulitis and abscess of leg, except foot Status: Suspected (2) Fever Status: Acute - Assessment and Plan (Free Text) Plan: CONT RX FOR UTI
--- NOTE | 2015-11-17 18:11 | CP.PCM.PN ---
Subjective - Date & Time of Evaluation Date of Evaluation: 11/17/15 Time of Evaluation: 22:22 - Subjective Subjective: Above noted Objective - Vital Signs/Intake and Output Vital Signs (last 24 hours): Temp Pulse Resp BP Pulse Ox 97.8 F 88 19 129/75 94 L 11/17/15 16:55 11/17/15 16:55 11/17/15 16:55 11/17/15 16:55 11/17/15 16:55 - Medications Medications: Current Medications Acetaminophen (Tylenol 325mg Tab) 650 mg PO Q4 PRN PRN Reason: Fever Last Admin: 11/12/15 09:21 Dose: 650 mg Bethanechol Chloride (Urecholine) 50 mg PO TID [facility] Last Admin: 11/17/15 16:12 Dose: 50 mg Carbidopa/Levodopa (Rytary Er 48.75 Mg-195 Mg Cap) 1 cap PO TID@0500,1300,2100 [facility] Last Admin: 11/17/15 12:25 Dose: 1 cap Docusate Sodium (Colace Liquid) 100 mg PO BID [facility] Last Admin: 11/17/15 16:10 Dose: 100 mg Fluocinonide (Lidex 0.05% Oint) 1 applic TOP BID [facility] Last Admin: 11/17/15 16:10 Dose: 1 applic Gabapentin (Neurontin) 600 mg PO TID [facility] Last Admin: 11/17/15 16:12 Dose: 600 mg Cefepime HCl 1 gm/ Sodium (Chloride) 100 mls @ 100 mls/hr IVPB Q12 [facility] Last Admin: 11/17/15 08:15 Dose: 100 mls/hr Sodium Chloride (Sodium Chloride 0.9%) 1,000 mls @ 50 mls/hr IV .Q20H [facility] Stop: 11/18/15 08:31 Last Admin: 11/17/15 09:34 Dose: 50 mls/hr Vancomycin HCl 1 gm/ Sodium (Chloride) 250 mls @ 166.667 mls/hr IVPB DAILY [facility] Last Admin: 11/17/15 15:09 Dose: 166.667 mls/hr Lidocaine (Lidoderm) 1 ea TD DAILY [facility] Last Admin: 11/17/15 08:12 Dose: 1 ea Midodrine (Proamatine) 10 mg PO TID [facility] Last Admin: 11/17/15 16:12 Dose: 10 mg Nystatin (Nystop Topical Powder) 1 applic TOP TID [facility] Last Admin: 11/17/15 16:12 Dose: 1 units Tamsulosin HCl (Flomax) 0.4 mg PO DAILY [facility] Last Admin: 11/17/15 08:12 Dose: 0.4 mg - Labs Labs: 11/14/15 01:35 11/14/15 01:35 - Respiratory Exam Respiratory Exam: NORMAL BREATHING PATTERN - Cardiovascular Exam Cardiovascular Exam: REGULAR RHYTHM - GI/Abdominal Exam GI & Abdominal Exam: Normal Bowel Sounds Assessment and Plan - Assessment and Plan (Free Text) Assessment: UTI Urine cs Enterrococus S/P Urinary retention S/P UTI 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 Pt is competent Social service and family involved Pt is [place] RLE rash Dermatiis vs cellulitis?? ID consult appreciated
[2015-11-18] MEDS: CARBIDOPA PO SCH ×3 (05:37→20:43)
[2015-11-18] MEDS: LEVODOPA PO SCH ×3 (05:37→20:43)
[2015-11-18] MEDS: Bethanechol 50 MG TAB PO SCH ×3 (08:52→16:11)
[2015-11-18] MEDS: Cefepime 1 GM in Sodium Chloride 0.9% 100 ML IVPB SCH ×2 (08:53→20:43)
[2015-11-18] MEDS: Lidocaine 5% Patch TD SCH (08:53)
--- NOTE | 2015-11-18 16:33 | CP.PCM.PN ---
Addendum entered and electronically signed by Delmer Jack MD 11/18/15 17:39: Original Note: Subjective - Date & Time of Evaluation Date of Evaluation: 11/18/15 Time of Evaluation: 15:00 - Subjective Subjective: Pt seen and examined. Denied any complaint Objective - Vital Signs/Intake and Output Vital Signs (last 24 hours): Temp Pulse Resp BP Pulse Ox 97.5 F L 97 H 20 118/85 91 L 11/18/15 16:19 11/18/15 16:19 11/18/15 16:19 11/18/15 16:19 11/18/15 16:19 - Medications Medications: Current Medications Acetaminophen (Tylenol 325mg Tab) 650 mg PO Q4 PRN PRN Reason: Fever Last Admin: 11/12/15 09:21 Dose: 650 mg Bethanechol Chloride (Urecholine) 50 mg PO TID [facility] Last Admin: 11/18/15 16:11 Dose: 50 mg Carbidopa/Levodopa (Rytary Er 48.75 Mg-195 Mg Cap) 1 cap PO TID@0500,1300,2100 [facility] Last Admin: 11/18/15 12:54 Dose: 1 cap Docusate Sodium (Colace Liquid) 100 mg PO BID [facility] Last Admin: 11/18/15 16:12 Dose: 100 mg Fluocinonide (Lidex 0.05% Oint) 1 applic TOP BID [facility] Last Admin: 11/18/15 16:12 Dose: 1 applic Gabapentin (Neurontin) 600 mg PO TID [facility] Last Admin: 11/18/15 16:11 Dose: 600 mg Cefepime HCl 1 gm/ Sodium (Chloride) 100 mls @ 100 mls/hr IVPB Q12 [facility] Last Admin: 11/18/15 08:53 Dose: 100 mls/hr Vancomycin HCl 1 gm/ Sodium (Chloride) 250 mls @ 166.667 mls/hr IVPB DAILY [facility] Last Admin: 11/18/15 16:11 Dose: 166.667 mls/hr Lidocaine (Lidoderm) 1 ea TD DAILY [facility] Last Admin: 11/18/15 08:53 Dose: 1 ea Midodrine (Proamatine) 10 mg PO TID [facility] Last Admin: 11/18/15 16:11 Dose: 10 mg Nystatin (Nystop Topical Powder) 1 applic TOP TID [facility] Last Admin: 11/18/15 16:12 Dose: 1 units Tamsulosin HCl (Flomax) 0.4 mg PO DAILY [facility] Last Admin: 11/18/15 08:53 Dose: 0.4 mg - Labs Labs: 11/14/15 01:35 11/14/15 01:35 - Constitutional Appears: No Acute Distress - Head Exam Head Exam: ATRAUMATIC - Eye Exam Eye Exam: absent: Conjunctival injection, Scleral icterus - ENT Exam ENT Exam: Mucous Membranes Moist - Neck Exam Neck Exam: absent: Meningismus, Tenderness - Respiratory Exam Respiratory Exam: Decreased Breath Sounds, NORMAL BREATHING PATTERN - Cardiovascular Exam Cardiovascular Exam: REGULAR RHYTHM, +S1, +S2 - GI/Abdominal Exam GI & Abdominal Exam: Soft. absent: Tenderness - Rectal Exam Rectal Exam: Deferred - Neurological Exam Neurological Exam: Alert, Awake - Psychiatric Exam Psychiatric exam: Flat Affect - Skin Skin Exam: Dry, Intact Assessment and Plan (1) Shingles outbreak Status: Resolved (2) Parkinson disease Status: Chronic (3) DVT prophylaxis Status: Acute - Assessment and Plan (Free Text) Assessment: 85 yo male with history Parkinsonism admitted originally with shingles. Patient now currently waiting for discharge to [place] since he could not take care of himself at home. 1. Pneumonia on Cefepime and Vanco for enterococcus which will also cover for pneumonia CT scan of chest showed patchy opacities on both lower lobes Dr. Patricia on pulmonary consult 2. UTI urine culture (11/14/2015): enterococcus continue Cefepime and Vanco 3. Fall frequent falls due to advanced Parkinson's awaiting placement to [facility] 4. Osteoarthritis continue Tylenol and Ultram as needed continue Gabapentin 5. Parkinson disease Continue Rytary Continue Clonazepam 6. 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 Shingles resolved 9. DVT prophylaxis SCD no anticoagulation due to low plt
[2015-11-19] MEDS: CARBIDOPA PO SCH ×3 (05:46→20:59)
[2015-11-19] MEDS: LEVODOPA PO SCH ×3 (05:46→20:59)
[2015-11-19] MEDS: Cefepime 1 GM in Sodium Chloride 0.9% 100 ML IVPB SCH ×2 (09:27→20:59)
[2015-11-19] MEDS: Lidocaine 5% Patch TD SCH (09:27)
[2015-11-19] MEDS: Bethanechol 50 MG TAB PO SCH ×3 (09:28→17:37)
--- NOTE | 2015-11-19 12:38 | CP.PCM.PN ---
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- BLOOD C/S NEG PATIENT IMPROVED ON CEFEPIME HOWEVER URINE GREW ENTEROCOCCUS VANCO ADDED TO COVER ENTEROCOCCUS SINCE PT ALLERGIC TO PCN WILL COMPLETE 7 DAYS RX Objective - Vital Signs/Intake and Output Vital Signs (last 24 hours): Temp Pulse Resp BP Pulse Ox 97.7 F 97 H 20 120/74 97 11/19/15 08:43 11/19/15 08:43 11/19/15 08:43 11/19/15 08:43 11/19/15 08:43 - Medications Medications: Current Medications Acetaminophen (Tylenol 325mg Tab) 650 mg PO Q4 PRN PRN Reason: Fever Last Admin: 11/12/15 09:21 Dose: 650 mg Bethanechol Chloride (Urecholine) 50 mg PO TID [facility] Last Admin: 11/19/15 09:28 Dose: 50 mg Carbidopa/Levodopa (Rytary Er 48.75 Mg-195 Mg Cap) 1 cap PO TID@0500,1300,2100 [facility] Last Admin: 11/19/15 05:46 Dose: 1 cap Docusate Sodium (Colace Liquid) 100 mg PO BID [facility] Last Admin: 11/19/15 09:28 Dose: 100 mg Fluocinonide (Lidex 0.05% Oint) 1 applic TOP BID [facility] Last Admin: 11/19/15 09:29 Dose: 1 applic Gabapentin (Neurontin) 600 mg PO TID [facility] Last Admin: 11/19/15 09:28 Dose: 600 mg Cefepime HCl 1 gm/ Sodium (Chloride) 100 mls @ 100 mls/hr IVPB Q12 [facility] Last Admin: 11/19/15 09:27 Dose: 100 mls/hr Vancomycin HCl 1 gm/ Sodium (Chloride) 250 mls @ 166.667 mls/hr IVPB DAILY [facility] Last Admin: 11/19/15 09:44 Dose: 166.667 mls/hr Lidocaine (Lidoderm) 1 ea TD DAILY [facility] Last Admin: 11/19/15 09:27 Dose: 1 ea Midodrine (Proamatine) 10 mg PO TID [facility] Last Admin: 11/19/15 10:14 Dose: 10 mg Nystatin (Nystop Topical Powder) 1 applic TOP TID [facility] Last Admin: 11/19/15 09:29 Dose: 1 units Tamsulosin HCl (Flomax) 0.4 mg PO DAILY [facility] Last Admin: 11/19/15 09:29 Dose: 0.4 mg - Labs Labs: 11/14/15 01:35 11/14/15 01:35 Assessment and Plan (1) Cellulitis and abscess of leg, except foot Status: Suspected (2) Fever Status: Acute
--- NOTE | 2015-11-19 16:17 | CP.PCM.PN ---
Subjective - Date & Time of Evaluation Date of Evaluation: 11/19/15 Time of Evaluation: 14:00 - Subjective Subjective: Pt seen and examined. Denied any complaint Objective - Vital Signs/Intake and Output Vital Signs (last 24 hours): Temp Pulse Resp BP Pulse Ox 97.7 F 97 H 20 120/74 97 11/19/15 08:43 11/19/15 08:43 11/19/15 08:43 11/19/15 08:43 11/19/15 08:43 - Medications Medications: Current Medications Acetaminophen (Tylenol 325mg Tab) 650 mg PO Q4 PRN PRN Reason: Fever Last Admin: 11/12/15 09:21 Dose: 650 mg Bethanechol Chloride (Urecholine) 50 mg PO TID [facility] Last Admin: 11/19/15 14:04 Dose: 50 mg Carbidopa/Levodopa (Rytary Er 48.75 Mg-195 Mg Cap) 1 cap PO TID@0500,1300,2100 [facility] Last Admin: 11/19/15 14:03 Dose: 1 cap Docusate Sodium (Colace Liquid) 100 mg PO BID [facility] Last Admin: 11/19/15 09:28 Dose: 100 mg Fluocinonide (Lidex 0.05% Oint) 1 applic TOP BID [facility] Last Admin: 11/19/15 09:29 Dose: 1 applic Gabapentin (Neurontin) 600 mg PO TID [facility] Last Admin: 11/19/15 14:04 Dose: 600 mg Cefepime HCl 1 gm/ Sodium (Chloride) 100 mls @ 100 mls/hr IVPB Q12 [facility] Last Admin: 11/19/15 09:27 Dose: 100 mls/hr Vancomycin HCl 1 gm/ Sodium (Chloride) 250 mls @ 166.667 mls/hr IVPB DAILY [facility] Last Admin: 11/19/15 09:44 Dose: 166.667 mls/hr Lidocaine (Lidoderm) 1 ea TD DAILY [facility] Last Admin: 11/19/15 09:27 Dose: 1 ea Midodrine (Proamatine) 10 mg PO TID [facility] Last Admin: 11/19/15 14:04 Dose: Not Given Nystatin (Nystop Topical Powder) 1 applic TOP TID [facility] Last Admin: 11/19/15 14:04 Dose: 1 units Tamsulosin HCl (Flomax) 0.4 mg PO DAILY [facility] Last Admin: 11/19/15 09:29 Dose: 0.4 mg - Labs Labs: 11/14/15 01:35 11/14/15 01:35 - Constitutional Appears: No Acute Distress - Head Exam Head Exam: ATRAUMATIC - Eye Exam Eye Exam: absent: Conjunctival injection, Scleral icterus - ENT Exam ENT Exam: Mucous Membranes Moist - Neck Exam Neck Exam: absent: Meningismus, Tenderness - Respiratory Exam Respiratory Exam: NORMAL BREATHING PATTERN. absent: Rhonchi, Wheezes - Cardiovascular Exam Cardiovascular Exam: REGULAR RHYTHM, +S1, +S2 - GI/Abdominal Exam GI & Abdominal Exam: Soft. absent: Tenderness - Rectal Exam Rectal Exam: Deferred - Extremities Exam Extremities Exam: Pedal Edema - Neurological Exam Neurological Exam: Alert, Awake - Psychiatric Exam Psychiatric exam: Normal Mood - Skin Skin Exam: Dry, Intact Assessment and Plan (1) Shingles outbreak Status: Resolved (2) Parkinson disease Status: Chronic (3) DVT prophylaxis Status: Acute - Assessment and Plan (Free Text) Assessment: 85 yo male with history Parkinsonism admitted originally with shingles. Patient now currently waiting for discharge to [place] since he could not take care of himself at home. 1. Pneumonia presently on Cefepime and Vanco CT scan of chest showed patchy opacities on both lower lobes Dr. Patricia on pulmonary consult 2. UTI urine culture (11/14/2015): enterococcus continue Cefepime and Vanco 3. Fall frequent falls due to advanced Parkinson's awaiting placement to [facility] 4. Osteoarthritis continue Tylenol and Ultram as needed continue Gabapentin 5. Parkinson disease Continue Rytary Continue Clonazepam 6. Thrombocytopenia resolved 7. Hypotension history of orthostatic hypotension, Shy Drager Syndrome Continue Midodrine 8. Shingles resolved 9. DVT prophylaxis venodyne boots while in bed
[2015-11-20] MEDS: LEVODOPA PO SCH ×3 (06:13→20:54)
[2015-11-20] MEDS: CARBIDOPA PO SCH ×3 (06:13→20:54)
[2015-11-20] MEDS: Cefepime 1 GM in Sodium Chloride 0.9% 100 ML IVPB SCH ×2 (09:02→20:53)
[2015-11-20] MEDS: Bethanechol 50 MG TAB PO SCH ×3 (09:03→16:04)
[2015-11-20] MEDS: Lidocaine 5% Patch TD SCH (09:05)
--- NOTE | 2015-11-20 09:46 | CP.PCM.PN ---
Subjective - Date & Time of Evaluation Date of Evaluation: 11/20/15 Time of Evaluation: 09:41 - Subjective Subjective: Patient states he is much improved. Claims he has cleared much phlegm in the past week. Breathes more comfortably, not coughing. Remains afebrile. Appears more relaxed, less anxious. Non dullness to chest percussion. Breath sounds are present bilaterally, NO rales in lung bases. RARE sonorous rhonchi in dependant areas. No wheezes. No bronchial breath sounds or egophony. Will ask fo follow up PCXR. Medications remain the same as per ID. Objective - Vital Signs/Intake and Output Vital Signs (last 24 hours): Temp Pulse Resp BP Pulse Ox 97.3 F L 84 20 91/50 L 96 11/20/15 07:37 11/20/15 07:37 11/20/15 07:37 11/20/15 07:37 11/20/15 07:37 - Medications Medications: Current Medications Acetaminophen (Tylenol 325mg Tab) 650 mg PO Q4 PRN PRN Reason: Fever Last Admin: 11/12/15 09:21 Dose: 650 mg Bethanechol Chloride (Urecholine) 50 mg PO TID [facility] Last Admin: 11/20/15 09:03 Dose: 50 mg Carbidopa/Levodopa (Rytary Er 48.75 Mg-195 Mg Cap) 1 cap PO TID@0500,1300,2100 [facility] Last Admin: 11/20/15 06:13 Dose: 1 cap Docusate Sodium (Colace Liquid) 100 mg PO BID [facility] Last Admin: 11/20/15 09:05 Dose: 100 mg Fluocinonide (Lidex 0.05% Oint) 1 applic TOP BID [facility] Last Admin: 11/20/15 09:05 Dose: 1 applic Gabapentin (Neurontin) 600 mg PO TID [facility] Last Admin: 11/20/15 09:03 Dose: 600 mg Cefepime HCl 1 gm/ Sodium (Chloride) 100 mls @ 100 mls/hr IVPB Q12 [facility] Last Admin: 11/20/15 09:02 Dose: 100 mls/hr Vancomycin HCl 1 gm/ Sodium (Chloride) 250 mls @ 166.667 mls/hr IVPB DAILY [facility] Last Admin: 11/20/15 09:04 Dose: 166.667 mls/hr Lidocaine (Lidoderm) 1 ea TD DAILY [facility] Last Admin: 11/20/15 09:05 Dose: 1 ea Midodrine (Proamatine) 10 mg PO TID [facility] Last Admin: 11/20/15 09:02 Dose: 10 mg Nystatin (Nystop Topical Powder) 1 applic TOP TID [facility] Last Admin: 11/20/15 09:05 Dose: 1 units Tamsulosin HCl (Flomax) 0.4 mg PO DAILY [facility] Last Admin: 11/20/15 09:03 Dose: 0.4 mg - Labs Labs: 11/14/15 01:35 11/14/15 01:35 Assessment and Plan (1) Pneumonia Status: Acute
--- NOTE | 2015-11-20 12:31 | RAD ---
HISTORY: For cough. Technique: Single view portable semi erect @ 09:59 COMPARISON: 11/08/2015. Single-view chest 11/09/2015 CT angiogram. FINDINGS: LUNGS: Persistent, approximately stable lower lobe infiltrates. PLEURA: No significant pleural effusion identified, no pneumothorax apparent. CARDIOVASCULAR: Cardiomegaly. No evidence of acute, significant cardiovascular disease. OSSEOUS STRUCTURES: No significant abnormalities. VISUALIZED UPPER ABDOMEN: Normal. OTHER FINDINGS: None. IMPRESSION: No acute interval changes accounting for differences in technique and patient position. Cardiomegaly without CHF. Stable lower lobe infiltrates
--- NOTE | 2015-11-20 20:49 | CP.PCM.PN ---
Subjective - Date & Time of Evaluation Date of Evaluation: 11/20/15 Time of Evaluation: 22:22 - Subjective Subjective: Above noted Objective - Vital Signs/Intake and Output Vital Signs (last 24 hours): Temp Pulse Resp BP Pulse Ox 97.9 F 84 20 129/95 H 100 11/20/15 16:51 11/20/15 16:51 11/20/15 16:51 11/20/15 16:51 11/20/15 16:51 - Medications Medications: Current Medications Acetaminophen (Tylenol 325mg Tab) 650 mg PO Q4 PRN PRN Reason: Fever Last Admin: 11/20/15 16:02 Dose: 650 mg Bethanechol Chloride (Urecholine) 50 mg PO TID [facility] Last Admin: 11/20/15 16:04 Dose: 50 mg Carbidopa/Levodopa (Rytary Er 48.75 Mg-195 Mg Cap) 1 cap PO TID@0500,1300,2100 [facility] Last Admin: 11/20/15 12:41 Dose: 1 cap Docusate Sodium (Colace Liquid) 100 mg PO BID [facility] Last Admin: 11/20/15 17:40 Dose: 100 mg Fluocinonide (Lidex 0.05% Oint) 1 applic TOP BID [facility] Last Admin: 11/20/15 16:05 Dose: 1 applic Gabapentin (Neurontin) 600 mg PO TID [facility] Last Admin: 11/20/15 16:05 Dose: 600 mg Cefepime HCl 1 gm/ Sodium (Chloride) 100 mls @ 100 mls/hr IVPB Q12 [facility] Last Admin: 11/20/15 09:02 Dose: 100 mls/hr Vancomycin HCl 1 gm/ Sodium (Chloride) 250 mls @ 166.667 mls/hr IVPB DAILY [facility] Last Admin: 11/20/15 09:04 Dose: 166.667 mls/hr Lidocaine (Lidoderm) 1 ea TD DAILY [facility] Last Admin: 11/20/15 09:05 Dose: 1 ea Midodrine (Proamatine) 10 mg PO TID [facility] Last Admin: 11/20/15 16:05 Dose: 10 mg Tamsulosin HCl (Flomax) 0.4 mg PO DAILY [facility] Last Admin: 11/20/15 09:03 Dose: 0.4 mg - Labs Labs: 11/14/15 01:35 05/03/16 01:35 - Respiratory Exam Respiratory Exam: NORMAL BREATHING PATTERN - Cardiovascular Exam Cardiovascular Exam: REGULAR RHYTHM - GI/Abdominal Exam GI & Abdominal Exam: Normal Bowel Sounds Assessment and Plan - Assessment and Plan (Free Text) Assessment: UTI Urine cs Enterrococus [place] Vanco S/P Urinary retention S/P UTI Proteus S/P Hypotension 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 Pt is competent Social service and family involved Pt is [place] RLE rash Dermatiis vs cellulitis?? ID consult appreciated
[2015-11-21] MEDS: CARBIDOPA PO SCH ×3 (04:44→20:15)
[2015-11-21] MEDS: LEVODOPA PO SCH ×3 (04:44→20:15)
[2015-11-21] MEDS: Lidocaine 5% Patch TD SCH (08:24)
[2015-11-21] MEDS: Bethanechol 50 MG TAB PO SCH ×3 (08:28→17:03)
[2015-11-21] MEDS: Cefepime 1 GM in Sodium Chloride 0.9% 100 ML IVPB SCH ×2 (08:29→20:14)
--- NOTE | 2015-11-21 20:54 | CP.PCM.PN ---
Subjective - Date & Time of Evaluation Date of Evaluation: 11/21/15 Time of Evaluation: 22:22 - Subjective Subjective: Much improved Objective - Vital Signs/Intake and Output Vital Signs (last 24 hours): Temp Pulse Resp BP Pulse Ox 98.1 F 106 H 20 111/65 95 11/21/15 16:48 11/21/15 16:48 11/21/15 16:48 11/21/15 16:48 11/21/15 16:48 Intake and Output: 11/21/15 11/22/15 18:59 06:59 Intake Total 1050 Output Total 600 Balance 450 - Medications Medications: Current Medications Acetaminophen (Tylenol 325mg Tab) 650 mg PO Q4 PRN PRN Reason: Fever Last Admin: 11/21/15 20:41 Dose: 650 mg Bethanechol Chloride (Urecholine) 50 mg PO TID [facility] Last Admin: 11/21/15 17:03 Dose: 50 mg Carbidopa/Levodopa (Rytary Er 48.75 Mg-195 Mg Cap) 1 cap PO TID@0500,1300,2100 [facility] Last Admin: 11/21/15 20:15 Dose: 1 cap Docusate Sodium (Colace Liquid) 100 mg PO BID [facility] Last Admin: 11/21/15 16:58 Dose: Not Given Fluocinonide (Lidex 0.05% Oint) 1 applic TOP BID [facility] Last Admin: 11/21/15 16:58 Dose: 1 applic Gabapentin (Neurontin) 600 mg PO TID [facility] Last Admin: 11/21/15 16:59 Dose: 600 mg Cefepime HCl 1 gm/ Sodium (Chloride) 100 mls @ 100 mls/hr IVPB Q12 [facility] Last Admin: 11/21/15 20:14 Dose: 100 mls/hr Vancomycin HCl 1 gm/ Sodium (Chloride) 250 mls @ 166.667 mls/hr IVPB DAILY [facility] Last Admin: 11/21/15 08:35 Dose: 166.667 mls/hr Lidocaine (Lidoderm) 1 ea TD DAILY [facility] Last Admin: 11/21/15 08:24 Dose: 1 ea Midodrine (Proamatine) 10 mg PO TID [facility] Last Admin: 11/21/15 17:01 Dose: 10 mg Tamsulosin HCl (Flomax) 0.4 mg PO DAILY [facility] Last Admin: 11/21/15 08:23 Dose: 0.4 mg - Labs Labs: 11/14/15 01:35 11/14/15 01:35 - Respiratory Exam Respiratory Exam: NORMAL BREATHING PATTERN - Cardiovascular Exam Cardiovascular Exam: REGULAR RHYTHM - GI/Abdominal Exam GI & Abdominal Exam: Normal Bowel Sounds Assessment and Plan - Assessment and Plan (Free Text) Assessment: UTI Urine cs Enterrococus [place] Vanco S/P Urinary retention S/P UTI Proteus Pnuemonia Hypoxia ABX Cultures negative S/P Hypotension 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 Pt is competent Social service and family involved Pt is [place] RLE rash Dermatiis vs cellulitis?? ID consult appreciated
[2015-11-22] MEDS: LEVODOPA PO SCH ×3 (04:58→20:54)
[2015-11-22] MEDS: CARBIDOPA PO SCH ×3 (04:58→20:54)
[2015-11-22] MEDS: Lidocaine 5% Patch TD SCH (08:42)
[2015-11-22] MEDS: Bethanechol 50 MG TAB PO SCH ×3 (08:44→16:22)
[2015-11-22] MEDS: Cefepime 1 GM in Sodium Chloride 0.9% 100 ML IVPB SCH ×2 (08:45→20:54)
--- NOTE | 2015-11-22 18:09 | CP.PCM.PN ---
Subjective - Date & Time of Evaluation Date of Evaluation: 11/22/15 Time of Evaluation: 22:22 - Subjective Subjective: above noted Objective - Vital Signs/Intake and Output Vital Signs (last 24 hours): Temp Pulse Resp BP Pulse Ox 98.4 F 60 20 126/57 L 96 11/22/15 16:55 11/22/15 16:55 11/22/15 16:55 11/22/15 16:55 11/22/15 16:55 Intake and Output: 11/22/15 11/22/15 06:59 18:59 Intake Total 480 Output Total 600 Balance -120 - Medications Medications: Current Medications Acetaminophen (Tylenol 325mg Tab) 650 mg PO Q4 PRN PRN Reason: Fever Last Admin: 11/21/15 20:41 Dose: 650 mg Bethanechol Chloride (Urecholine) 50 mg PO TID [facility] Last Admin: 11/22/15 16:22 Dose: 50 mg Carbidopa/Levodopa (Rytary Er 48.75 Mg-195 Mg Cap) 1 cap PO TID@0500,1300,2100 [facility] Last Admin: 11/22/15 12:36 Dose: 1 cap Docusate Sodium (Colace Liquid) 100 mg PO BID [facility] Last Admin: 11/22/15 16:22 Dose: 100 mg Fluocinonide (Lidex 0.05% Oint) 1 applic TOP BID [facility] Last Admin: 11/22/15 16:23 Dose: 1 applic Gabapentin (Neurontin) 600 mg PO TID [facility] Last Admin: 11/22/15 16:22 Dose: 600 mg Cefepime HCl 1 gm/ Sodium (Chloride) 100 mls @ 100 mls/hr IVPB Q12 [facility] Last Admin: 11/22/15 08:45 Dose: 100 mls/hr Vancomycin HCl 1 gm/ Sodium (Chloride) 250 mls @ 166.667 mls/hr IVPB DAILY [facility] Last Admin: 11/22/15 08:44 Dose: 166.667 mls/hr Dextrose/Sodium Chloride (Dextrose 5%/0.45% Ns 1000 Ml) 1,000 mls @ 40 mls/hr IV .Q24H [facility] Stop: 11/22/15 21:46 Last Admin: 11/21/15 22:03 Dose: 40 mls/hr Lidocaine (Lidoderm) 1 ea TD DAILY [facility] Last Admin: 11/22/15 08:42 Dose: 1 ea Midodrine (Proamatine) 10 mg PO TID [facility] Last Admin: 11/22/15 16:22 Dose: 10 mg Tamsulosin HCl (Flomax) 0.4 mg PO DAILY [facility] Last Admin: 11/22/15 08:42 Dose: 0.4 mg - Labs Labs: 11/14/15 01:35 11/14/15 01:35 - Respiratory Exam Respiratory Exam: NORMAL BREATHING PATTERN - Cardiovascular Exam Cardiovascular Exam: REGULAR RHYTHM - GI/Abdominal Exam GI & Abdominal Exam: Normal Bowel Sounds Assessment and Plan - Assessment and Plan (Free Text) Assessment: UTI Urine cs Enterrococus [place] Vanco S/P Urinary retention S/P UTI Proteus Pnuemonia Hypoxia ABX Cultures negative S/P Hypotension 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 Pt is competent Social service and family involved Pt is [place] RLE rash Dermatiis vs cellulitis?? ID consult appreciated
[2015-11-23] MEDS: CARBIDOPA PO SCH ×3 (06:00→21:46)
[2015-11-23] MEDS: LEVODOPA PO SCH ×3 (06:00→21:46)
[2015-11-23] MEDS: Cefepime 1 GM in Sodium Chloride 0.9% 100 ML IVPB SCH (08:04)
[2015-11-23] MEDS: Lidocaine 5% Patch TD SCH (08:06)
[2015-11-23] MEDS: Bethanechol 50 MG TAB PO SCH ×3 (08:07→16:21)
--- NOTE | 2015-11-23 17:20 | CP.PCM.PN ---
Subjective - Date & Time of Evaluation Date of Evaluation: 11/23/15 Time of Evaluation: 11:00 - Subjective Subjective: NO FEVER CEFEPIME D/C CONT IV VANCO CHECK TROUGH LEVEL Objective - Vital Signs/Intake and Output Vital Signs (last 24 hours): Temp Pulse Resp BP Pulse Ox 97.2 F L 67 20 123/81 100 11/23/15 16:20 11/23/15 16:20 11/23/15 16:20 11/23/15 16:20 11/23/15 16:20 - Medications Medications: Current Medications Acetaminophen (Tylenol 325mg Tab) 650 mg PO Q4 PRN PRN Reason: Fever Last Admin: 11/21/15 20:41 Dose: 650 mg Bethanechol Chloride (Urecholine) 50 mg PO TID [facility] Last Admin: 11/23/15 16:21 Dose: 50 mg Carbidopa/Levodopa (Rytary Er 48.75 Mg-195 Mg Cap) 1 cap PO TID@0500,1300,2100 [facility] Last Admin: 11/23/15 12:16 Dose: 1 cap Docusate Sodium (Colace Liquid) 100 mg PO BID [facility] Last Admin: 11/23/15 16:20 Dose: 100 mg Fluocinonide (Lidex 0.05% Oint) 1 applic TOP BID [facility] Last Admin: 11/23/15 16:22 Dose: 1 applic Gabapentin (Neurontin) 600 mg PO TID [facility] Last Admin: 11/23/15 16:20 Dose: 600 mg Vancomycin HCl 1 gm/ Sodium (Chloride) 250 mls @ 166.667 mls/hr IVPB DAILY [facility] Last Admin: 11/23/15 08:07 Dose: 166.667 mls/hr Lidocaine (Lidoderm) 1 ea TD DAILY [facility] Last Admin: 11/23/15 08:06 Dose: 1 ea Midodrine (Proamatine) 10 mg PO TID [facility] Last Admin: 11/23/15 16:21 Dose: 10 mg Tamsulosin HCl (Flomax) 0.4 mg PO DAILY [facility] Last Admin: 11/23/15 08:05 Dose: 0.4 mg - Labs Labs: 11/14/15 01:35 11/14/15 01:35 - Constitutional Appears: Non-toxic, Chronically Ill - Head Exam Head Exam: NORMOCEPHALIC - Eye Exam Eye Exam: absent: Scleral icterus - ENT Exam ENT Exam: Mucous Membranes Dry - Neck Exam Neck Exam: absent: Lymphadenopathy - Respiratory Exam Respiratory Exam: Decreased Breath Sounds, Clear to Ausculation Bilateral - Cardiovascular Exam Cardiovascular Exam: REGULAR RHYTHM, +S1, +S2 - GI/Abdominal Exam GI & Abdominal Exam: Distended. absent: Tenderness Assessment and Plan (1) Cellulitis and abscess of leg, except foot Status: Suspected (2) Fever Status: Acute
--- NOTE | 2015-11-23 21:40 | CP.PCM.PN ---
Subjective - Date & Time of Evaluation Date of Evaluation: 11/23/15 Time of Evaluation: 22:22 - Subjective Subjective: ID note appreciated Objective - Vital Signs/Intake and Output Vital Signs (last 24 hours): Temp Pulse Resp BP Pulse Ox 97.2 F L 67 20 123/81 100 11/23/15 16:20 11/23/15 16:20 11/23/15 16:20 11/23/15 16:20 11/23/15 16:20 Intake and Output: 11/23/15 11/24/15 18:59 06:59 Intake Total 480 Output Total 900 Balance -420 - Medications Medications: Current Medications Acetaminophen (Tylenol 325mg Tab) 650 mg PO Q4 PRN PRN Reason: Fever Last Admin: 11/21/15 20:41 Dose: 650 mg Bethanechol Chloride (Urecholine) 50 mg PO TID [facility] Last Admin: 11/23/15 16:21 Dose: 50 mg Carbidopa/Levodopa (Rytary Er 48.75 Mg-195 Mg Cap) 1 cap PO TID@0500,1300,2100 [facility] Last Admin: 11/23/15 12:16 Dose: 1 cap Docusate Sodium (Colace Liquid) 100 mg PO BID [facility] Last Admin: 11/23/15 16:20 Dose: 100 mg Fluocinonide (Lidex 0.05% Oint) 1 applic TOP BID [facility] Last Admin: 11/23/15 16:22 Dose: 1 applic Gabapentin (Neurontin) 600 mg PO TID [facility] Last Admin: 11/23/15 16:20 Dose: 600 mg Vancomycin HCl 1 gm/ Sodium (Chloride) 250 mls @ 166.667 mls/hr IVPB DAILY [facility] Last Admin: 11/23/15 08:07 Dose: 166.667 mls/hr Lidocaine (Lidoderm) 1 ea TD DAILY [facility] Last Admin: 11/23/15 08:06 Dose: 1 ea Midodrine (Proamatine) 10 mg PO TID [facility] Last Admin: 11/23/15 16:21 Dose: 10 mg Tamsulosin HCl (Flomax) 0.4 mg PO DAILY [facility] Last Admin: 11/23/15 08:05 Dose: 0.4 mg - Labs Labs: 11/14/15 01:35 11/14/15 01:35 - Respiratory Exam Respiratory Exam: NORMAL BREATHING PATTERN - Cardiovascular Exam Cardiovascular Exam: REGULAR RHYTHM - GI/Abdominal Exam GI & Abdominal Exam: Normal Bowel Sounds Assessment and Plan - Assessment and Plan (Free Text) Assessment: UTI Urine cs Enterrococus [place] Vanco S/P Urinary retention S/P UTI Proteus Pnuemonia Hypoxia Cultures negative S/P Hypotension 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 Pt is competent Social service and family involved Pt is [place] RLE rash Dermatiis vs cellulitis?? ID consult appreciated
[2015-11-24] MEDS: CARBIDOPA PO SCH ×3 (05:00→22:12)
[2015-11-24] MEDS: LEVODOPA PO SCH ×3 (05:00→22:12)
[2015-11-24 06:29] LABS: BASO # 0.1 K/uL (0.0-0.2); EOS # 0.5 K/uL (0.0-0.7); HEMOGLOBIN 9.4 g/dL (12.0-18.0); LYMPH # 1.3 K/uL (1.0-4.3); LYMPH % 22.6 % (20.0-40.0); MEAN CELL VOLUME 90.2 fl (80.0-94.0); MEAN CORPUSCULAR HEMOGLOBIN 29.5 pg (27.0-31.0); MEAN CORPUSCULAR HGB CONC 32.7 g/dL (33.0-37.0); MEAN PLATELET VOLUME 9.6 fl (7.2-11.7); MONO # 0.4 K/uL (0.0-0.8); NEUT # 3.4 K/uL (1.8-7.0); NEUT % 60.4 % (50.0-75.0); NRBC % 0.1 % (0.0-0.0); RBC 3.19 Mil/uL (4.40-5.90); RED CELL DISTRIBUTION WIDTH 14.9 % (11.5-14.5); WHITE BLOOD COUNT 5.6 K/uL (4.8-10.8)
[2015-11-24 07:25] LABS: BLOOD UREA NITROGEN 13 mg/dl (9-20); CALCIUM 8.7 mg/dL (8.4-10.2); GFR AFRICAN-AMERICAN > 60; GFR NON-AFRICAN AMERICAN > 60
[2015-11-24] MEDS: Bethanechol 50 MG TAB PO SCH ×3 (09:23→17:39)
[2015-11-24] MEDS: Lidocaine 5% Patch TD SCH (09:24)
--- NOTE | 2015-11-24 18:17 | CP.PCM.PN ---
Subjective - Date & Time of Evaluation Date of Evaluation: 11/24/15 Time of Evaluation: 22:22 - Subjective Subjective: resting in bed Objective - Vital Signs/Intake and Output Vital Signs (last 24 hours): Temp Pulse Resp BP Pulse Ox 97.3 F L 67 20 110/75 96 11/24/15 16:30 11/24/15 16:30 11/24/15 16:30 11/24/15 16:30 11/24/15 16:30 - Medications Medications: Current Medications Acetaminophen (Tylenol 325mg Tab) 650 mg PO Q4 PRN PRN Reason: Fever Last Admin: 11/21/15 20:41 Dose: 650 mg Bethanechol Chloride (Urecholine) 50 mg PO TID [facility] Last Admin: 11/24/15 17:39 Dose: 50 mg Carbidopa/Levodopa (Rytary Er 48.75 Mg-195 Mg Cap) 1 cap PO TID@0500,1300,2100 [facility] Last Admin: 11/24/15 13:28 Dose: 1 cap Docusate Sodium (Colace Liquid) 100 mg PO BID [facility] Last Admin: 11/24/15 17:40 Dose: Not Given Fluocinonide (Lidex 0.05% Oint) 1 applic TOP BID [facility] Last Admin: 11/24/15 17:40 Dose: 1 applic Gabapentin (Neurontin) 600 mg PO TID [facility] Last Admin: 11/24/15 17:39 Dose: 600 mg Vancomycin HCl 1 gm/ Sodium (Chloride) 250 mls @ 166.667 mls/hr IVPB DAILY [facility] Last Admin: 11/24/15 09:22 Dose: 166.667 mls/hr Lidocaine (Lidoderm) 1 ea TD DAILY [facility] Last Admin: 11/24/15 09:24 Dose: 1 ea Midodrine (Proamatine) 10 mg PO TID [facility] Last Admin: 11/24/15 17:39 Dose: 10 mg Tamsulosin HCl (Flomax) 0.4 mg PO DAILY [facility] Last Admin: 11/24/15 09:23 Dose: 0.4 mg - Labs Labs: 11/24/15 04:35 11/24/15 04:35 - Respiratory Exam Respiratory Exam: NORMAL BREATHING PATTERN - Cardiovascular Exam Cardiovascular Exam: REGULAR RHYTHM - GI/Abdominal Exam GI & Abdominal Exam: Normal Bowel Sounds Assessment and Plan - Assessment and Plan (Free Text) Assessment: UTI Urine cs Enterrococus [place] Vanco S/P Urinary retention S/P UTI Proteus Pnuemonia Hypoxia Cultures negative S/P Hypotension [employer] 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 Pt is competent Social service and family involved Pt is [place] RLE rash Dermatiis vs cellulitis?? ID consult appreciated
[2015-11-25] MEDS: CARBIDOPA PO SCH ×3 (06:26→21:00)
[2015-11-25] MEDS: LEVODOPA PO SCH ×3 (06:26→21:00)
[2015-11-25] MEDS: Lidocaine 5% Patch TD SCH (08:36)
[2015-11-25] MEDS: Bethanechol 50 MG TAB PO SCH ×3 (08:36→16:13)
--- NOTE | 2015-11-25 09:26 | CP.PCM.PN ---
Subjective - Date & Time of Evaluation Date of Evaluation: 11/25/15 Time of Evaluation: 09:15 - Subjective Subjective: no fever complains of shoulder pain no cough no CP no leg pain Objective - Vital Signs/Intake and Output Vital Signs (last 24 hours): Temp Pulse Resp BP Pulse Ox 98.5 F 93 H 20 158/81 H 93 L 11/25/15 08:00 11/25/15 08:00 11/25/15 08:00 11/25/15 08:00 11/25/15 08:00 - Medications Medications: Current Medications Acetaminophen (Tylenol 325mg Tab) 650 mg PO Q4 PRN PRN Reason: Fever Last Admin: 11/21/15 20:41 Dose: 650 mg Bethanechol Chloride (Urecholine) 50 mg PO TID [facility] Last Admin: 11/25/15 08:36 Dose: 50 mg Carbidopa/Levodopa (Rytary Er 48.75 Mg-195 Mg Cap) 1 cap PO TID@0500,1300,2100 [facility] Last Admin: 11/25/15 06:26 Dose: 1 cap Docusate Sodium (Colace Liquid) 100 mg PO BID [facility] Last Admin: 11/25/15 08:37 Dose: 100 mg Fluocinonide (Lidex 0.05% Oint) 1 applic TOP BID [facility] Last Admin: 11/25/15 08:37 Dose: 1 applic Gabapentin (Neurontin) 600 mg PO TID [facility] Last Admin: 11/25/15 08:37 Dose: 600 mg Vancomycin HCl 1 gm/ Sodium (Chloride) 250 mls @ 166.667 mls/hr IVPB DAILY [facility] Last Admin: 11/25/15 08:38 Dose: 166.667 mls/hr Lidocaine (Lidoderm) 1 ea TD DAILY [facility] Last Admin: 11/25/15 08:36 Dose: 1 ea Midodrine (Proamatine) 10 mg PO TID [facility] Last Admin: 11/25/15 08:36 Dose: 10 mg Tamsulosin HCl (Flomax) 0.4 mg PO DAILY [facility] Last Admin: 11/25/15 08:37 Dose: 0.4 mg - Labs Labs: 11/24/15 04:35 11/24/15 04:35 - Constitutional Appears: No Acute Distress - Head Exam Head Exam: NORMAL INSPECTION, NORMOCEPHALIC - Eye Exam Eye Exam: EOMI, Normal appearance Pupil Exam: NORMAL ACCOMODATION - ENT Exam ENT Exam: Mucous Membranes Moist, Normal External Ear Exam - Neck Exam Neck Exam: Full ROM. absent: Meningismus - Respiratory Exam Respiratory Exam: NORMAL BREATHING PATTERN. absent: Rales, Respiratory Distress - Cardiovascular Exam Cardiovascular Exam: REGULAR RHYTHM, +S1, +S2 - GI/Abdominal Exam GI & Abdominal Exam: Soft, Normal Bowel Sounds. absent: Tenderness - Extremities Exam Extremities Exam: Normal Capillary Refill. absent: Calf Tenderness, Pedal Edema - Back Exam Back Exam: NORMAL INSPECTION. absent: CVA tenderness (L), CVA tenderness (R) - Neurological Exam Neurological Exam: Alert, Awake, CN II-XII Intact Additional comments: oriented to person and place - Psychiatric Exam Psychiatric exam: Flat Affect, Normal Mood. absent: Suicidal Ideation - Skin Skin Exam: Dry, Normal Color, Warm Assessment and Plan (1) Pneumonia Status: Acute (2) Cellulitis Status: Acute (3) UTI (urinary tract infection) Status: Acute (4) Parkinson disease Status: Chronic (5) Thrombocytopenia Status: Chronic (6) Atrial fibrillation Status: Resolved (7) DVT prophylaxis Status: Acute - Assessment and Plan (Free Text) Assessment: (1) Pneumonia, resolved CXR shows lower lobe infiltrates very much improved no dyspnea, no cough, no fever received IV Cefepime and Vanco Pulm was consulted (2) Cellulitis, resolved RLE cellulitis improved with IV vanco ID consulted (3) UTI (urinary tract infection) Enterococcus - on IV vanco - Dr hoffmann following pt (4) Parkinson disease cont Rytary (5) Thrombocytopenia, mild monitor platelets (6) Atrial fibrillation, resolved (7) Orthostatic Hypotension -pt on Midodrine (8) DVT prophylaxis hold Lovenox due to low platelet
[2015-11-26] MEDS: CARBIDOPA PO SCH ×3 (05:00→20:27)
[2015-11-26] MEDS: LEVODOPA PO SCH ×3 (05:00→20:27)
[2015-11-26] MEDS: Bethanechol 50 MG TAB PO SCH ×3 (09:34→16:18)
[2015-11-26] MEDS: Lidocaine 5% Patch TD SCH (09:34)
--- NOTE | 2015-11-26 11:07 | CP.PCM.PN ---
Subjective - Date & Time of Evaluation Date of Evaluation: 11/26/15 Time of Evaluation: 09:00 - Subjective Subjective: no fever no CP no SOB complains of sorethroat no cough no abd pain Objective - Vital Signs/Intake and Output Vital Signs (last 24 hours): Temp Pulse Resp BP Pulse Ox 97.3 F L 90 18 109/65 93 L 11/26/15 07:54 11/26/15 07:54 11/26/15 07:54 11/26/15 07:54 11/26/15 07:54 Intake and Output: 11/26/15 11/26/15 06:59 18:59 Intake Total 420 Output Total 1999 Balance -1580 - Medications Medications: Current Medications Acetaminophen (Tylenol 325mg Tab) 650 mg PO Q4 PRN PRN Reason: Fever Last Admin: 11/25/15 09:50 Dose: 650 mg Bethanechol Chloride (Urecholine) 50 mg PO TID [facility] Last Admin: 11/26/15 09:34 Dose: 50 mg Carbidopa/Levodopa (Rytary Er 48.75 Mg-195 Mg Cap) 1 cap PO TID@0500,1300,2100 [facility] Last Admin: 11/26/15 05:00 Dose: 1 cap Docusate Sodium (Colace Liquid) 100 mg PO BID [facility] Last Admin: 11/26/15 09:33 Dose: 100 mg Fluocinonide (Lidex 0.05% Oint) 1 applic TOP BID [facility] Last Admin: 11/26/15 09:34 Dose: 1 applic Gabapentin (Neurontin) 600 mg PO TID [facility] Last Admin: 11/26/15 09:33 Dose: 600 mg Vancomycin HCl 1 gm/ Sodium (Chloride) 250 mls @ 166.667 mls/hr IVPB DAILY [facility] Last Admin: 11/26/15 09:33 Dose: 166.667 mls/hr Lidocaine (Lidoderm) 1 ea TD DAILY [facility] Last Admin: 11/26/15 09:34 Dose: 1 ea Midodrine (Proamatine) 10 mg PO TID [facility] Last Admin: 11/26/15 09:33 Dose: 10 mg Tamsulosin HCl (Flomax) 0.4 mg PO DAILY [facility] Last Admin: 11/26/15 09:34 Dose: 0.4 mg - Labs Labs: 11/24/15 04:35 11/24/15 04:35 - Constitutional Appears: No Acute Distress, Chronically Ill - Head Exam Head Exam: NORMAL INSPECTION, NORMOCEPHALIC - Eye Exam Eye Exam: EOMI, Normal appearance Pupil Exam: NORMAL ACCOMODATION - ENT Exam ENT Exam: Mucous Membranes Moist, Normal External Ear Exam, Normal Oropharynx - Neck Exam Neck Exam: Full ROM. absent: Meningismus - Respiratory Exam Respiratory Exam: NORMAL BREATHING PATTERN. absent: Rales, Wheezes, Respiratory Distress - Cardiovascular Exam Cardiovascular Exam: REGULAR RHYTHM, +S1, +S2 - GI/Abdominal Exam GI & Abdominal Exam: Soft, Normal Bowel Sounds. absent: Tenderness - Extremities Exam Extremities Exam: Normal Capillary Refill. absent: Calf Tenderness, Pedal Edema - Back Exam Back Exam: Full ROM. absent: CVA tenderness (L), CVA tenderness (R) - Neurological Exam Neurological Exam: Alert, Awake, CN II-XII Intact Additional comments: oriented to person and place - Psychiatric Exam Psychiatric exam: Flat Affect - Skin Skin Exam: Dry, Normal Color, Warm Assessment and Plan (1) Pneumonia Status: Acute (2) Cellulitis Status: Acute (3) UTI (urinary tract infection) Status: Acute (4) Parkinson disease Status: Chronic (5) Thrombocytopenia Status: Chronic (6) Atrial fibrillation Status: Resolved (7) DVT prophylaxis Status: Acute - Assessment and Plan (Free Text) Assessment: (1) Pneumonia, resolved CXR shows lower lobe infiltrates very much improved no dyspnea, no cough, no fever received IV Cefepime and Vanco Pulm was consulted (2) Cellulitis, resolved RLE cellulitis improved with IV vanco ID consulted (3) UTI (urinary tract infection) Enterococcus - on IV vanco - Dr hoffmann following pt (4) Parkinson disease cont Rytary (5) Thrombocytopenia, mild monitor platelets (6) Atrial fibrillation, resolved (7) Orthostatic Hypotension -pt on Midodrine (8) DVT prophylaxis hold Lovenox due to low platelet
--- NOTE | 2015-11-26 12:38 | CP.PCM.PN ---
Subjective - Date & Time of Evaluation Date of Evaluation: 11/26/15 Time of Evaluation: 08:00 - Subjective Subjective: no fever awake alert NAD oob to chair Objective - Vital Signs/Intake and Output Vital Signs (last 24 hours): Temp Pulse Resp BP Pulse Ox 97.3 F L 90 18 109/65 93 L 11/26/15 07:54 11/26/15 07:54 11/26/15 07:54 11/26/15 07:54 11/26/15 07:54 Intake and Output: 11/26/15 11/26/15 06:59 18:59 Intake Total 420 Output Total 1999 Balance -1580 - Medications Medications: Current Medications Acetaminophen (Tylenol 325mg Tab) 650 mg PO Q4 PRN PRN Reason: Fever Last Admin: 11/25/15 09:50 Dose: 650 mg Bethanechol Chloride (Urecholine) 50 mg PO TID [facility] Last Admin: 11/26/15 12:25 Dose: 50 mg Carbidopa/Levodopa (Rytary Er 48.75 Mg-195 Mg Cap) 1 cap PO TID@0500,1300,2100 [facility] Last Admin: 11/26/15 12:25 Dose: 1 cap Docusate Sodium (Colace Liquid) 100 mg PO BID [facility] Last Admin: 11/26/15 09:33 Dose: 100 mg Fluocinonide (Lidex 0.05% Oint) 1 applic TOP BID [facility] Last Admin: 11/26/15 09:34 Dose: 1 applic Gabapentin (Neurontin) 600 mg PO TID [facility] Last Admin: 11/26/15 12:25 Dose: 600 mg Vancomycin HCl 1 gm/ Sodium (Chloride) 250 mls @ 166.667 mls/hr IVPB DAILY [facility] Last Admin: 11/26/15 09:33 Dose: 166.667 mls/hr Lidocaine (Lidoderm) 1 ea TD DAILY [facility] Last Admin: 11/26/15 09:34 Dose: 1 ea Midodrine (Proamatine) 10 mg PO TID [facility] Last Admin: 11/26/15 12:25 Dose: 10 mg Tamsulosin HCl (Flomax) 0.4 mg PO DAILY [facility] Last Admin: 11/26/15 09:34 Dose: 0.4 mg - Labs Labs: 11/24/15 04:35 11/24/15 04:35 - Constitutional Appears: Non-toxic, Chronically Ill - Head Exam Head Exam: NORMOCEPHALIC - Eye Exam Eye Exam: absent: Scleral icterus Pupil Exam: PERRL - ENT Exam ENT Exam: Mucous Membranes Dry, Normal External Ear Exam, Normal Oropharynx - Neck Exam Neck Exam: absent: Lymphadenopathy, Thyromegaly - Respiratory Exam Respiratory Exam: Decreased Breath Sounds, Clear to Ausculation Bilateral - Cardiovascular Exam Cardiovascular Exam: REGULAR RHYTHM, +S1, +S2 - GI/Abdominal Exam GI & Abdominal Exam: Distended, Soft. absent: Tenderness - Rectal Exam Rectal Exam: Deferred - Exam Exam: NORMAL INSPECTION - Extremities Exam Extremities Exam: absent: Calf Tenderness, Pedal Edema - Back Exam Back Exam: absent: CVA tenderness (L), CVA tenderness (R) - Neurological Exam Neurological Exam: Alert, Altered, Awake Neuro motor strength exam: Left Upper Extremity: 4, Right Upper Extremity: 4, Left Lower Extremity: 4, Right Lower Extremity: 4 - Psychiatric Exam Psychiatric exam: Normal Mood - Skin Skin Exam: Dry, Intact Assessment and Plan (1) Cellulitis and abscess of leg, except foot Status: Suspected (2) Fever Status: Acute - Assessment and Plan (Free Text) Assessment: cont rx
[2015-11-27] MEDS: CARBIDOPA PO SCH ×3 (04:47→20:20)
[2015-11-27] MEDS: LEVODOPA PO SCH ×3 (04:47→20:20)
[2015-11-27] MEDS: Lidocaine 5% Patch TD SCH (08:51)
[2015-11-27] MEDS: Bethanechol 50 MG TAB PO SCH ×3 (08:52→16:16)
--- NOTE | 2015-11-27 09:46 | CP.PCM.PN ---
Subjective - Date & Time of Evaluation Date of Evaluation: 11/27/15 Time of Evaluation: 07:00 - Subjective Subjective: repeat urine c/s neg ok consider d/c iv antibiotics Objective - Vital Signs/Intake and Output Vital Signs (last 24 hours): Temp Pulse Resp BP Pulse Ox 98 F 69 18 141/84 98 11/27/15 08:55 11/27/15 08:55 11/27/15 08:55 11/27/15 08:55 11/27/15 08:55 - Medications Medications: Current Medications Acetaminophen (Tylenol 325mg Tab) 650 mg PO Q4 PRN PRN Reason: Fever Last Admin: 11/26/15 13:16 Dose: 650 mg Bethanechol Chloride (Urecholine) 50 mg PO TID [facility] Last Admin: 11/27/15 08:52 Dose: 50 mg Carbidopa/Levodopa (Rytary Er 48.75 Mg-195 Mg Cap) 1 cap PO TID@0500,1300,2100 [facility] Last Admin: 11/27/15 04:47 Dose: 1 cap Docusate Sodium (Colace Liquid) 100 mg PO BID [facility] Last Admin: 11/27/15 08:51 Dose: 100 mg Fluocinonide (Lidex 0.05% Oint) 1 applic TOP BID [facility] Last Admin: 11/27/15 08:51 Dose: 1 applic Gabapentin (Neurontin) 600 mg PO TID [facility] Last Admin: 11/27/15 08:52 Dose: 600 mg Vancomycin HCl 1 gm/ Sodium (Chloride) 250 mls @ 166.667 mls/hr IVPB DAILY [facility] Last Admin: 11/27/15 08:53 Dose: 166.667 mls/hr Lidocaine (Lidoderm) 1 ea TD DAILY [facility] Last Admin: 11/27/15 08:51 Dose: 1 ea Midodrine (Proamatine) 10 mg PO TID [facility] Last Admin: 11/27/15 08:52 Dose: 10 mg Tamsulosin HCl (Flomax) 0.4 mg PO DAILY [facility] Last Admin: 11/27/15 08:51 Dose: 0.4 mg - Labs Labs: 11/24/15 04:35 11/24/15 04:35 - Constitutional Appears: Non-toxic, Chronically Ill - Head Exam Head Exam: NORMOCEPHALIC - Eye Exam Eye Exam: absent: Scleral icterus - Neck Exam Neck Exam: absent: Lymphadenopathy - Respiratory Exam Respiratory Exam: Decreased Breath Sounds, Clear to Ausculation Bilateral - Cardiovascular Exam Cardiovascular Exam: REGULAR RHYTHM - GI/Abdominal Exam GI & Abdominal Exam: Soft. absent: Tenderness - Rectal Exam Rectal Exam: NORMAL INSPECTION - Exam Exam: NORMAL INSPECTION Assessment and Plan (1) Cellulitis and abscess of leg, except foot Status: Suspected (2) Fever Status: Acute
--- NOTE | 2015-11-27 20:53 | CP.PCM.PN ---
Subjective - Date & Time of Evaluation Date of Evaluation: 11/27/15 Time of Evaluation: 22:22 - Subjective Subjective: Above noted Objective - Vital Signs/Intake and Output Vital Signs (last 24 hours): Temp Pulse Resp BP Pulse Ox 97.9 F 73 20 139/99 H 100 11/27/15 17:02 11/27/15 17:02 11/27/15 17:02 11/27/15 17:02 11/27/15 17:02 Intake and Output: 11/27/15 11/28/15 18:59 06:59 Output Total 1000 Balance -1000 - Medications Medications: Current Medications Acetaminophen (Tylenol 325mg Tab) 650 mg PO Q4 PRN PRN Reason: Fever Last Admin: 11/26/15 13:16 Dose: 650 mg Bethanechol Chloride (Urecholine) 50 mg PO TID [facility] Last Admin: 11/27/15 16:16 Dose: 50 mg Carbidopa/Levodopa (Rytary Er 48.75 Mg-195 Mg Cap) 1 cap PO TID@0500,1300,2100 [facility] Last Admin: 11/27/15 20:20 Dose: 1 cap Docusate Sodium (Colace Liquid) 100 mg PO BID [facility] Last Admin: 11/27/15 16:14 Dose: 100 mg Fluocinonide (Lidex 0.05% Oint) 1 applic TOP BID [facility] Last Admin: 11/27/15 16:14 Dose: 1 applic Gabapentin (Neurontin) 600 mg PO TID [facility] Last Admin: 11/27/15 16:15 Dose: 600 mg Lidocaine (Lidoderm) 1 ea TD DAILY [facility] Last Admin: 11/27/15 08:51 Dose: 1 ea Midodrine (Proamatine) 10 mg PO TID [facility] Last Admin: 11/27/15 16:15 Dose: 10 mg Tamsulosin HCl (Flomax) 0.4 mg PO DAILY [facility] Last Admin: 11/27/15 08:51 Dose: 0.4 mg - Labs Labs: 11/24/15 04:35 11/24/15 04:35 - Respiratory Exam Respiratory Exam: NORMAL BREATHING PATTERN - Cardiovascular Exam Cardiovascular Exam: REGULAR RHYTHM - GI/Abdominal Exam GI & Abdominal Exam: Normal Bowel Sounds Assessment and Plan - Assessment and Plan (Free Text) Assessment: UTI Urine cs Enterrococus ABX d/c S/P Urinary retention S/P UTI Proteus Pnuemonia Hypoxia Cultures negative 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 Pt is competent Social service and family involved Pt is [place] RLE rash Dermatiis vs cellulitis?? ID consult appreciated
[2015-11-28] MEDS: CARBIDOPA PO SCH ×3 (04:02→20:30)
[2015-11-28] MEDS: LEVODOPA PO SCH ×3 (04:02→20:30)
[2015-11-28] MEDS: Lidocaine 5% Patch TD SCH (08:46)
[2015-11-28] MEDS: Bethanechol 50 MG TAB PO SCH ×3 (08:47→16:00)
--- NOTE | 2015-11-28 20:17 | CP.PCM.PN ---
Subjective - Date & Time of Evaluation Date of Evaluation: 11/28/15 Time of Evaluation: 22:22 - Subjective Subjective: More alert Objective - Vital Signs/Intake and Output Vital Signs (last 24 hours): Temp Pulse Resp BP Pulse Ox 98.4 F 92 H 20 115/63 96 11/28/15 16:37 11/28/15 16:37 11/28/15 16:37 11/28/15 16:37 11/28/15 16:37 Intake and Output: 11/28/15 11/29/15 18:59 06:59 Output Total 600 Balance -600 - Medications Medications: Current Medications Acetaminophen (Tylenol 325mg Tab) 650 mg PO Q4 PRN PRN Reason: Fever Last Admin: 11/28/15 15:36 Dose: 650 mg Bethanechol Chloride (Urecholine) 50 mg PO TID [facility] Last Admin: 11/28/15 16:00 Dose: 50 mg Carbidopa/Levodopa (Rytary Er 48.75 Mg-195 Mg Cap) 1 cap PO TID@0500,1300,2100 [facility] Last Admin: 11/28/15 12:02 Dose: 1 cap Docusate Sodium (Colace Liquid) 100 mg PO BID [facility] Last Admin: 11/28/15 15:59 Dose: 100 mg Fluocinonide (Lidex 0.05% Oint) 1 applic TOP BID [facility] Last Admin: 11/28/15 15:59 Dose: 1 applic Gabapentin (Neurontin) 600 mg PO TID [facility] Last Admin: 11/28/15 15:59 Dose: 600 mg Lidocaine (Lidoderm) 1 ea TD DAILY [facility] Last Admin: 11/28/15 08:46 Dose: 1 ea Midodrine (Proamatine) 10 mg PO TID [facility] Last Admin: 11/28/15 16:00 Dose: 10 mg Tamsulosin HCl (Flomax) 0.4 mg PO DAILY [facility] Last Admin: 11/28/15 08:46 Dose: 0.4 mg - Labs Labs: 11/24/15 04:35 11/24/15 04:35 - Respiratory Exam Respiratory Exam: NORMAL BREATHING PATTERN - Cardiovascular Exam Cardiovascular Exam: REGULAR RHYTHM - GI/Abdominal Exam GI & Abdominal Exam: Normal Bowel Sounds Assessment and Plan - Assessment and Plan (Free Text) Assessment: UTI Urine cs Enterrococus ABX d/c S/P Urinary retention S/P UTI Proteus Pnuemonia Hypoxia Cultures negative 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 Pt is competent Social service and family involved Pt is [place] WW[place] RLE rash Dermatiis vs cellulitis?? ID consult appreciated
[2015-11-29] MEDS: LEVODOPA PO SCH ×3 (04:45→21:42)
[2015-11-29] MEDS: CARBIDOPA PO SCH ×3 (04:45→21:42)
[2015-11-29] MEDS: Bethanechol 50 MG TAB PO SCH ×3 (09:40→16:11)
[2015-11-29] MEDS: Lidocaine 5% Patch TD SCH (09:41)
--- NOTE | 2015-11-29 19:23 | CP.PCM.PN ---
Subjective - Date & Time of Evaluation Date of Evaluation: 11/29/15 Time of Evaluation: 22:22 - Subjective Subjective: Anemia? Objective - Vital Signs/Intake and Output Vital Signs (last 24 hours): Temp Pulse Resp BP Pulse Ox 98.1 F 113 H 20 114/52 L 100 11/29/15 16:21 11/29/15 16:21 11/29/15 16:21 11/29/15 16:21 11/29/15 16:21 - Medications Medications: Current Medications Acetaminophen (Tylenol 325mg Tab) 650 mg PO Q4 PRN PRN Reason: Fever Last Admin: 11/29/15 16:47 Dose: 650 mg Bethanechol Chloride (Urecholine) 50 mg PO TID [facility] Last Admin: 11/29/15 16:11 Dose: 50 mg Carbidopa/Levodopa (Rytary Er 48.75 Mg-195 Mg Cap) 1 cap PO TID@0500,1300,2100 [facility] Last Admin: 11/29/15 12:58 Dose: 1 cap Docusate Sodium (Colace Liquid) 100 mg PO BID [facility] Last Admin: 11/29/15 18:55 Dose: Not Given Fluocinonide (Lidex 0.05% Oint) 1 applic TOP BID [facility] Last Admin: 11/29/15 18:55 Dose: 1 applic Gabapentin (Neurontin) 600 mg PO TID [facility] Last Admin: 11/29/15 16:11 Dose: 600 mg Lidocaine (Lidoderm) 1 ea TD DAILY [facility] Last Admin: 11/29/15 09:41 Dose: 1 ea Midodrine (Proamatine) 10 mg PO TID [facility] Last Admin: 11/29/15 16:11 Dose: 10 mg Tamsulosin HCl (Flomax) 0.4 mg PO DAILY [facility] Last Admin: 11/29/15 09:40 Dose: 0.4 mg - Labs Labs: 11/24/15 04:35 11/24/15 04:35 - Respiratory Exam Respiratory Exam: NORMAL BREATHING PATTERN - Cardiovascular Exam Cardiovascular Exam: REGULAR RHYTHM - GI/Abdominal Exam GI & Abdominal Exam: Normal Bowel Sounds Assessment and Plan - Assessment and Plan (Free Text) Assessment: Disposition?? Pt is competent Social service and family involved Pt is WWII Long d/w family MSA Parkinson Dx PT Anemia? 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 ID consult appreciated
[2015-11-30] MEDS: CARBIDOPA PO SCH ×3 (05:43→20:46)
[2015-11-30] MEDS: LEVODOPA PO SCH ×3 (05:43→20:46)
[2015-11-30] MEDS: Lidocaine 5% Patch TD SCH (08:35)
[2015-11-30] MEDS: Bethanechol 50 MG TAB PO SCH ×3 (08:36→16:19)
--- NOTE | 2015-11-30 20:53 | CP.PCM.PN ---
Subjective - Date & Time of Evaluation Date of Evaluation: 11/30/15 Time of Evaluation: 22:22 - Subjective Subjective: Doing well Objective - Vital Signs/Intake and Output Vital Signs (last 24 hours): Temp Pulse Resp BP Pulse Ox 98.1 F 77 20 120/70 77 L 11/30/15 16:25 11/30/15 16:25 11/30/15 16:25 11/30/15 16:25 11/30/15 16:25 - Medications Medications: Current Medications Acetaminophen (Tylenol 325mg Tab) 650 mg PO Q4 PRN PRN Reason: Fever Last Admin: 11/29/15 16:47 Dose: 650 mg Bethanechol Chloride (Urecholine) 50 mg PO TID [facility] Last Admin: 11/30/15 16:19 Dose: 50 mg Carbidopa/Levodopa (Rytary Er 48.75 Mg-195 Mg Cap) 1 cap PO TID@0500,1300,2100 [facility] Last Admin: 11/30/15 20:46 Dose: 1 cap Docusate Sodium (Colace Liquid) 100 mg PO BID [facility] Last Admin: 11/30/15 16:18 Dose: 100 mg Fluocinonide (Lidex 0.05% Oint) 1 applic TOP BID [facility] Last Admin: 11/30/15 16:19 Dose: 1 applic Gabapentin (Neurontin) 600 mg PO TID [facility] Last Admin: 11/30/15 16:18 Dose: 600 mg Lidocaine (Lidoderm) 1 ea TD DAILY [facility] Last Admin: 11/30/15 08:35 Dose: 1 ea Midodrine (Proamatine) 10 mg PO TID [facility] Last Admin: 11/30/15 16:18 Dose: 10 mg Tamsulosin HCl (Flomax) 0.4 mg PO DAILY [facility] Last Admin: 11/30/15 08:36 Dose: 0.4 mg - Labs Labs: 11/24/15 04:35 11/24/15 04:35 - Respiratory Exam Respiratory Exam: NORMAL BREATHING PATTERN - Cardiovascular Exam Cardiovascular Exam: REGULAR RHYTHM - GI/Abdominal Exam GI & Abdominal Exam: Normal Bowel Sounds Assessment and Plan - Assessment and Plan (Free Text) Assessment: Disposition?? Pt is competent Social service and family involved Pt is [place] Long d/w family MSA Parkinson Dx PT Anemia? 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 ID consult appreciated
[2015-12-01] MEDS: CARBIDOPA PO SCH ×3 (05:48→20:10)
[2015-12-01] MEDS: LEVODOPA PO SCH ×3 (05:48→20:10)
[2015-12-01] MEDS: Lidocaine 5% Patch TD SCH (08:24)
[2015-12-01] MEDS: Bethanechol 50 MG TAB PO SCH ×3 (08:25→16:25)
--- NOTE | 2015-12-01 18:51 | CP.PCM.PN ---
Subjective - Date & Time of Evaluation Date of Evaluation: 12/01/15 Time of Evaluation: 22:22 - Subjective Subjective: Doing well Objective - Vital Signs/Intake and Output Vital Signs (last 24 hours): Temp Pulse Resp BP Pulse Ox 97.3 F L 81 20 90/51 L 98 12/01/15 17:44 12/01/15 17:44 12/01/15 17:44 12/01/15 17:44 12/01/15 17:44 - Medications Medications: Current Medications Acetaminophen (Tylenol 325mg Tab) 650 mg PO Q4 PRN PRN Reason: Fever Last Admin: 11/29/15 16:47 Dose: 650 mg Bethanechol Chloride (Urecholine) 50 mg PO TID [facility] Last Admin: 12/01/15 16:25 Dose: 50 mg Carbidopa/Levodopa (Rytary Er 48.75 Mg-195 Mg Cap) 1 cap PO TID@0500,1300,2100 [facility] Last Admin: 12/01/15 12:08 Dose: 1 cap Docusate Sodium (Colace Liquid) 100 mg PO BID [facility] Last Admin: 12/01/15 16:24 Dose: 100 mg Fluocinonide (Lidex 0.05% Oint) 1 applic TOP BID [facility] Last Admin: 12/01/15 16:24 Dose: 1 applic Gabapentin (Neurontin) 600 mg PO TID [facility] Last Admin: 12/01/15 16:25 Dose: 600 mg Lidocaine (Lidoderm) 1 ea TD DAILY [facility] Last Admin: 12/01/15 08:24 Dose: 1 ea Midodrine (Proamatine) 10 mg PO TID [facility] Last Admin: 12/01/15 16:25 Dose: 10 mg Tamsulosin HCl (Flomax) 0.4 mg PO DAILY [facility] Last Admin: 12/01/15 08:24 Dose: 0.4 mg - Labs Labs: 11/24/15 04:35 11/24/15 04:35 - Respiratory Exam Respiratory Exam: NORMAL BREATHING PATTERN - Cardiovascular Exam Cardiovascular Exam: REGULAR RHYTHM - GI/Abdominal Exam GI & Abdominal Exam: Normal Bowel Sounds Assessment and Plan - Assessment and Plan (Free Text) Assessment: Disposition?? Pt is competent Social service and family involved Pt is [place] WWII Long d/w family MSA Parkinson Dx PT Anemia? 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 ID consult appreciated
[2015-12-02] MEDS: CARBIDOPA PO SCH ×3 (04:00→20:47)
[2015-12-02] MEDS: LEVODOPA PO SCH ×3 (04:00→20:47)
--- NOTE | 2015-12-02 08:18 | CP.PCM.PN ---
Subjective - Date & Time of Evaluation Date of Evaluation: 12/02/15 Time of Evaluation: 08:16 - Subjective Subjective: Patient was sleeping, awakened. Denies any chest pain or SOB. He states he wants to get out of bed, that he cannot move. Objective - Vital Signs/Intake and Output Vital Signs (last 24 hours): Temp Pulse Resp BP Pulse Ox 98.1 F 106 H 20 96/53 L 98 12/02/15 00:14 12/02/15 00:14 12/02/15 00:14 12/02/15 00:14 12/02/15 00:14 - Medications Medications: Current Medications Acetaminophen (Tylenol 325mg Tab) 650 mg PO Q4 PRN PRN Reason: Fever Last Admin: 11/29/15 16:47 Dose: 650 mg Bethanechol Chloride (Urecholine) 50 mg PO TID [facility] Last Admin: 12/01/15 16:25 Dose: 50 mg Carbidopa/Levodopa (Rytary Er 48.75 Mg-195 Mg Cap) 1 cap PO TID@0500,1300,2100 [facility] Last Admin: 12/02/15 04:00 Dose: 1 cap Docusate Sodium (Colace Liquid) 100 mg PO BID [facility] Last Admin: 12/01/15 16:24 Dose: 100 mg Fluocinonide (Lidex 0.05% Oint) 1 applic TOP BID [facility] Last Admin: 12/01/15 16:24 Dose: 1 applic Gabapentin (Neurontin) 600 mg PO TID [facility] Last Admin: 12/01/15 16:25 Dose: 600 mg Lidocaine (Lidoderm) 1 ea TD DAILY [facility] Last Admin: 12/01/15 08:24 Dose: 1 ea Midodrine (Proamatine) 10 mg PO TID [facility] Last Admin: 12/01/15 16:25 Dose: 10 mg Tamsulosin HCl (Flomax) 0.4 mg PO DAILY [facility] Last Admin: 12/01/15 08:24 Dose: 0.4 mg - Labs Labs: 11/24/15 04:35 11/24/15 04:35 - Constitutional Appears: Confused, Chronically Ill - Head Exam Head Exam: ATRAUMATIC, NORMAL INSPECTION, NORMOCEPHALIC - Respiratory Exam Respiratory Exam: Clear to Ausculation Bilateral, NORMAL BREATHING PATTERN - Cardiovascular Exam Cardiovascular Exam: REGULAR RHYTHM, RRR, +S1, +S2 - GI/Abdominal Exam GI & Abdominal Exam: Soft, Normal Bowel Sounds - Neurological Exam Neurological Exam: Alert, Awake, CN II-XII Intact (facies) - Psychiatric Exam Psychiatric exam: Agitated, Flat Affect Assessment and Plan (1) Fall Status: Acute (2) Parkinson disease Status: Chronic (3) Thrombocytopenia Status: Chronic (4) Depression Status: Chronic (5) Hypotension Status: Chronic (6) DVT prophylaxis Status: Acute - Assessment and Plan (Free Text) Assessment: (1) Pneumonia, resolved - CXR shows lower lobe infiltrate - no dyspnea, no cough, no fever - s/p IV Cefepime and Vanco - Pulm was consulted (2) Cellulitis, resolved - RLE cellulitis - s/p IV vanco - ID consulted (3) UTI (urinary tract infection) - isolated Enterococcus -completed IV vanco - KELLY Wills consulted (4) Parkinson disease - cont Rytary (5) Thrombocytopenia, mild - monitor platelets periodically (6) Atrial fibrillation, resolved (7) Orthostatic Hypotension, 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
[2015-12-02] MEDS: Lidocaine 5% Patch TD SCH (08:45)
[2015-12-02] MEDS: Bethanechol 50 MG TAB PO SCH ×3 (08:47→16:05)
--- NOTE | 2015-12-02 16:44 | RAD ---
Right shoulder dated 12/02/2015. History: Right shoulder dislocation. Single AP view of the right shoulder performed. Comparison made with prior the chest radiograph dated 11/20/2015 which partially imaged the right shoulder Findings: The current study reveals no evidence of acute displaced fracture nor dislocation. High-riding humeral head with respect to the glenoid suggests chronic rotator cuff repair. Clinical correlation recommended. Moderate to significant degenerative changes right acromioclavicular joint and mild the degenerative changes right glenohumeral joint. Remaining osseous structures are unremarkable. No abnormal soft tissue calcifications seen. Impression: No evidence of acute displaced fracture nor dislocation. 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 . High-riding humeral head consistent with rotator cuff injury.
[2015-12-03] MEDS: CARBIDOPA PO SCH ×3 (05:17→21:53)
[2015-12-03] MEDS: LEVODOPA PO SCH ×3 (05:17→21:53)
[2015-12-03] MEDS: Lidocaine 5% Patch TD SCH (08:07)
[2015-12-03] MEDS: Bethanechol 50 MG TAB PO SCH ×3 (08:08→16:34)
[2015-12-03 09:06] LABS: BLOOD UREA NITROGEN 21 mg/dl (9-20); CALCIUM 9.1 mg/dL (8.4-10.2); GFR AFRICAN-AMERICAN > 60; GFR NON-AFRICAN AMERICAN > 60
[2015-12-03 09:12] LABS: MEAN CELL VOLUME 91.1 fl (80.0-94.0); MEAN CORPUSCULAR HEMOGLOBIN 29.3 pg (27.0-31.0); MEAN CORPUSCULAR HGB CONC 32.1 g/dL (33.0-37.0); RBC 3.42 Mil/uL (4.40-5.90); RED CELL DISTRIBUTION WIDTH 15.4 % (11.5-14.5); WHITE BLOOD COUNT 5.3 K/uL (4.8-10.8)
--- NOTE | 2015-12-03 11:12 | CP.PCM.PN ---
Subjective - Date & Time of Evaluation Date of Evaluation: 12/03/15 Time of Evaluation: 11:11 - Subjective Subjective: Patient sleeping in bed, no acute events overnight. Patient states having leg pains and wants his meds now. no other complaints Objective - Vital Signs/Intake and Output Vital Signs (last 24 hours): Temp Pulse Resp BP Pulse Ox 98.1 F 63 20 123/56 L 95 12/03/15 08:54 12/03/15 08:54 12/03/15 08:54 12/03/15 08:54 12/03/15 08:54 - Medications Medications: Current Medications Acetaminophen (Tylenol 325mg Tab) 650 mg PO Q4 PRN PRN Reason: Fever Last Admin: 11/29/15 16:47 Dose: 650 mg Bethanechol Chloride (Urecholine) 50 mg PO TID [facility] Last Admin: 12/03/15 08:08 Dose: 50 mg Carbidopa/Levodopa (Rytary Er 48.75 Mg-195 Mg Cap) 1 cap PO TID@0500,1300,2100 [facility] Last Admin: 12/03/15 05:17 Dose: 1 cap Docusate Sodium (Colace Liquid) 100 mg PO BID [facility] Last Admin: 12/03/15 08:07 Dose: 100 mg Fluocinonide (Lidex 0.05% Oint) 1 applic TOP BID [facility] Last Admin: 12/03/15 08:08 Dose: 1 applic Gabapentin (Neurontin) 600 mg PO TID [facility] Last Admin: 12/03/15 08:09 Dose: 600 mg Sodium Chloride (Sodium Chloride 0.9%) 500 mls @ 83 mls/hr IV .Q6H2M [facility] Lidocaine (Lidoderm) 1 ea TD DAILY [facility] Last Admin: 12/03/15 08:07 Dose: 1 ea Midodrine (Proamatine) 10 mg PO TID [facility] Last Admin: 12/03/15 08:08 Dose: 10 mg Tamsulosin HCl (Flomax) 0.4 mg PO DAILY [facility] Last Admin: 12/03/15 08:09 Dose: 0.4 mg - Labs Labs: 12/03/15 06:30 12/03/15 06:30 - Constitutional Appears: Non-toxic, No Acute Distress, Chronically Ill - Respiratory Exam Respiratory Exam: Clear to Ausculation Bilateral, NORMAL BREATHING PATTERN. absent: Rales, Rhonchi, Wheezes - Cardiovascular Exam Cardiovascular Exam: REGULAR RHYTHM, RRR, +S1, +S2 - GI/Abdominal Exam GI & Abdominal Exam: Soft, Normal Bowel Sounds - Neurological Exam Neurological Exam: Alert, Awake - Psychiatric Exam Psychiatric exam: Agitated, Flat Affect Assessment and Plan (1) Fall Status: Acute (2) Parkinson disease Status: Chronic (3) Thrombocytopenia Status: Chronic (4) Depression Status: Chronic (5) Hypotension Status: Chronic (6) DVT prophylaxis Status: Acute - Assessment and Plan (Free Text) Assessment: Due to low BP and elevated BUN will given 500 cc NS at rate of 83 cc/hour x1. 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
[2015-12-03] MEDS: Sodium Chloride 0.9% 500 ML IV SCH ×2 (11:15→16:40)
[2015-12-04] MEDS: LEVODOPA PO SCH ×3 (05:55→20:07)
[2015-12-04] MEDS: CARBIDOPA PO SCH ×3 (05:55→20:07)
[2015-12-04] MEDS: Lidocaine 5% Patch TD SCH (08:24)
[2015-12-04] MEDS: Bethanechol 50 MG TAB PO SCH ×3 (08:24→16:16)
--- NOTE | 2015-12-04 20:03 | CP.PCM.PN ---
Subjective - Date & Time of Evaluation Date of Evaluation: 12/04/15 Time of Evaluation: 22:22 - Subjective Subjective: Hbg 10 Objective - Vital Signs/Intake and Output Vital Signs (last 24 hours): Temp Pulse Resp BP Pulse Ox 97.7 F 78 20 134/64 95 12/04/15 16:17 12/04/15 16:17 12/04/15 16:17 12/04/15 16:17 12/04/15 16:17 - Medications Medications: Current Medications Acetaminophen (Tylenol 325mg Tab) 650 mg PO Q4 PRN PRN Reason: Fever Last Admin: 12/04/15 17:30 Dose: 650 mg Bethanechol Chloride (Urecholine) 50 mg PO TID [facility] Last Admin: 12/04/15 16:16 Dose: 50 mg Carbidopa/Levodopa (Rytary Er 48.75 Mg-195 Mg Cap) 1 cap PO TID@0500,1300,2100 [facility] Last Admin: 12/04/15 13:37 Dose: 1 cap Docusate Sodium (Colace Liquid) 100 mg PO BID [facility] Last Admin: 12/04/15 16:15 Dose: 100 mg Fluocinonide (Lidex 0.05% Oint) 1 applic TOP BID [facility] Last Admin: 12/04/15 16:15 Dose: 1 applic Gabapentin (Neurontin) 600 mg PO TID [facility] Last Admin: 12/04/15 16:15 Dose: 600 mg Lidocaine (Lidoderm) 1 ea TD DAILY [facility] Last Admin: 12/04/15 08:24 Dose: 1 ea Midodrine (Proamatine) 10 mg PO TID [facility] Last Admin: 12/04/15 16:16 Dose: 10 mg Tamsulosin HCl (Flomax) 0.4 mg PO DAILY [facility] Last Admin: 12/04/15 08:23 Dose: 0.4 mg - Labs Labs: 12/03/15 06:30 12/03/15 06:30 - Respiratory Exam Respiratory Exam: NORMAL BREATHING PATTERN - Cardiovascular Exam Cardiovascular Exam: REGULAR RHYTHM - GI/Abdominal Exam GI & Abdominal Exam: Normal Bowel Sounds Assessment and Plan - Assessment and Plan (Free Text) Assessment: Disposition?? 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 ID consult appreciated
[2015-12-05] MEDS: LEVODOPA PO SCH ×3 (04:46→21:23)
[2015-12-05] MEDS: CARBIDOPA PO SCH ×3 (04:46→21:23)
[2015-12-05] MEDS: Bethanechol 50 MG TAB PO SCH ×3 (08:52→18:19)
[2015-12-05] MEDS: Lidocaine 5% Patch TD SCH (08:52)
--- NOTE | 2015-12-05 20:51 | CP.PCM.PN ---
Subjective - Date & Time of Evaluation Date of Evaluation: 12/05/15 Time of Evaluation: 22:22 - Subjective Subjective: No change Objective - Vital Signs/Intake and Output Vital Signs (last 24 hours): Temp Pulse Resp BP Pulse Ox 97.5 F L 97 H 18 82/54 L 99 12/05/15 16:00 12/05/15 16:00 12/05/15 16:00 12/05/15 16:00 12/05/15 16:00 - Medications Medications: Current Medications Acetaminophen (Tylenol 325mg Tab) 650 mg PO Q4 PRN PRN Reason: Fever Last Admin: 12/04/15 17:30 Dose: 650 mg Bethanechol Chloride (Urecholine) 50 mg PO TID [facility] Last Admin: 12/05/15 18:18 Dose: 50 mg Carbidopa/Levodopa (Rytary Er 48.75 Mg-195 Mg Cap) 1 cap PO TID@0500,1300,2100 [facility] Last Admin: 12/05/15 12:13 Dose: 1 cap Docusate Sodium (Colace Liquid) 100 mg PO BID [facility] Last Admin: 12/05/15 16:08 Dose: 100 mg Fluocinonide (Lidex 0.05% Oint) 1 applic TOP BID [facility] Last Admin: 12/05/15 16:08 Dose: 1 applic Gabapentin (Neurontin) 600 mg PO TID [facility] Last Admin: 12/05/15 16:07 Dose: 600 mg Lidocaine (Lidoderm) 1 ea TD DAILY [facility] Last Admin: 12/05/15 08:52 Dose: 1 ea Midodrine (Proamatine) 10 mg PO TID [facility] Last Admin: 12/05/15 16:08 Dose: 10 mg Tamsulosin HCl (Flomax) 0.4 mg PO DAILY [facility] Last Admin: 12/05/15 08:53 Dose: 0.4 mg - Labs Labs: 12/03/15 06:30 12/03/15 06:30 - Respiratory Exam Respiratory Exam: NORMAL BREATHING PATTERN - Cardiovascular Exam Cardiovascular Exam: REGULAR RHYTHM - GI/Abdominal Exam GI & Abdominal Exam: Normal Bowel Sounds Assessment and Plan - Assessment and Plan (Free Text) Assessment: Disposition?? 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 ID consult appreciated
[2015-12-06] MEDS: CARBIDOPA PO SCH ×3 (05:01→21:36)
[2015-12-06] MEDS: LEVODOPA PO SCH ×3 (05:01→21:36)
[2015-12-06] MEDS: Lidocaine 5% Patch TD SCH (09:00)
--- NOTE | 2015-12-06 19:27 | CP.PCM.PN ---
Subjective - Date & Time of Evaluation Date of Evaluation: 12/06/15 Time of Evaluation: 22:22 - Subjective Subjective: Resting in bed asleep Objective - Vital Signs/Intake and Output Vital Signs (last 24 hours): Temp Pulse Resp BP Pulse Ox 98.2 F 88 20 104/59 L 99 12/06/15 16:34 12/06/15 16:34 12/06/15 16:34 12/06/15 16:34 12/06/15 16:34 - Medications Medications: Current Medications Acetaminophen (Tylenol 325mg Tab) 650 mg PO Q4 PRN PRN Reason: Fever Last Admin: 12/06/15 16:20 Dose: 650 mg Bethanechol Chloride (Urecholine) 50 mg PO TID [facility] Last Admin: 12/06/15 16:21 Dose: 50 mg Carbidopa/Levodopa (Rytary Er 48.75 Mg-195 Mg Cap) 1 cap PO TID@0500,1300,2100 [facility] Last Admin: 12/06/15 12:36 Dose: 1 cap Docusate Sodium (Colace Liquid) 100 mg PO BID [facility] Last Admin: 12/06/15 16:20 Dose: 100 mg Fluocinonide (Lidex 0.05% Oint) 1 applic TOP BID [facility] Last Admin: 12/06/15 16:20 Dose: 1 applic Gabapentin (Neurontin) 600 mg PO TID [facility] Last Admin: 12/06/15 16:20 Dose: 600 mg Lidocaine (Lidoderm) 1 ea TD DAILY [facility] Last Admin: 12/06/15 09:00 Dose: 1 ea Midodrine (Proamatine) 10 mg PO TID [facility] Last Admin: 12/06/15 16:21 Dose: 10 mg Tamsulosin HCl (Flomax) 0.4 mg PO DAILY [facility] Last Admin: 12/06/15 09:01 Dose: 0.4 mg - Labs Labs: 12/03/15 06:30 12/03/15 06:30 - Respiratory Exam Respiratory Exam: NORMAL BREATHING PATTERN - Cardiovascular Exam Cardiovascular Exam: REGULAR RHYTHM - GI/Abdominal Exam GI & Abdominal Exam: Normal Bowel Sounds Assessment and Plan - Assessment and Plan (Free Text) Assessment: Disposition?? 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 ID consult appreciated
[2015-12-07] MEDS: LEVODOPA PO SCH ×3 (04:36→20:25)
[2015-12-07] MEDS: CARBIDOPA PO SCH ×3 (04:36→20:25)
[2015-12-07] MEDS: Lidocaine 5% Patch TD SCH (08:38)
--- NOTE | 2015-12-07 21:09 | CP.PCM.PN ---
Subjective - Date & Time of Evaluation Date of Evaluation: 12/07/15 Time of Evaluation: 22:22 - Subjective Subjective: Sleeping Objective - Vital Signs/Intake and Output Vital Signs (last 24 hours): Temp Pulse Resp BP Pulse Ox 96.9 F L 82 20 108/57 L 99 12/07/15 16:01 12/07/15 16:01 12/07/15 16:01 12/07/15 16:01 12/07/15 16:01 - Medications Medications: Current Medications Acetaminophen (Tylenol 325mg Tab) 650 mg PO Q4 PRN PRN Reason: Fever Last Admin: 12/07/15 10:01 Dose: 650 mg Bethanechol Chloride (Urecholine) 50 mg PO TID [facility] Last Admin: 12/07/15 16:07 Dose: 50 mg Carbidopa/Levodopa (Rytary Er 48.75 Mg-195 Mg Cap) 1 cap PO TID@0500,1300,2100 [facility] Last Admin: 12/07/15 20:25 Dose: 1 cap Docusate Sodium (Colace Liquid) 100 mg PO BID [facility] Last Admin: 12/07/15 16:07 Dose: 100 mg Fluocinonide (Lidex 0.05% Oint) 1 applic TOP BID [facility] Last Admin: 12/07/15 16:07 Dose: 1 applic Gabapentin (Neurontin) 600 mg PO TID [facility] Last Admin: 12/07/15 16:07 Dose: 600 mg Lidocaine (Lidoderm) 1 ea TD DAILY [facility] Last Admin: 12/07/15 08:38 Dose: 1 ea Midodrine (Proamatine) 10 mg PO TID [facility] Last Admin: 12/07/15 16:07 Dose: 10 mg Tamsulosin HCl (Flomax) 0.4 mg PO DAILY [facility] Last Admin: 12/07/15 08:38 Dose: 0.4 mg - Labs Labs: 12/03/15 06:30 12/03/15 06:30 - Respiratory Exam Respiratory Exam: NORMAL BREATHING PATTERN - Cardiovascular Exam Cardiovascular Exam: REGULAR RHYTHM - GI/Abdominal Exam GI & Abdominal Exam: Normal Bowel Sounds Assessment and Plan - Assessment and Plan (Free Text) Assessment: Disposition?? 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 ID consult appreciated
[2015-12-08] MEDS: LEVODOPA PO SCH ×3 (04:24→21:03)
[2015-12-08] MEDS: CARBIDOPA PO SCH ×3 (04:24→21:03)
[2015-12-08] MEDS: Lidocaine 5% Patch TD SCH (08:36)
--- NOTE | 2015-12-08 10:49 | CP.PCM.PN ---
Subjective - Date & Time of Evaluation Date of Evaluation: 12/08/15 Time of Evaluation: 22:22 - Subjective Subjective: Doing well Sitting in chair Objective - Vital Signs/Intake and Output Vital Signs (last 24 hours): Temp Pulse Resp BP Pulse Ox 98 F 73 18 135/91 H 98 12/08/15 08:55 12/08/15 08:55 12/08/15 08:55 12/08/15 08:55 12/08/15 08:55 - Medications Medications: Current Medications Acetaminophen (Tylenol 325mg Tab) 650 mg PO Q4 PRN PRN Reason: Fever Last Admin: 12/07/15 10:01 Dose: 650 mg Bethanechol Chloride (Urecholine) 50 mg PO TID [facility] Last Admin: 12/08/15 08:37 Dose: 50 mg Carbidopa/Levodopa (Rytary Er 48.75 Mg-195 Mg Cap) 1 cap PO TID@0500,1300,2100 [facility] Last Admin: 12/08/15 04:24 Dose: 1 cap Docusate Sodium (Colace Liquid) 100 mg PO BID [facility] Last Admin: 12/08/15 08:40 Dose: 100 mg Fluocinonide (Lidex 0.05% Oint) 1 applic TOP BID [facility] Last Admin: 12/08/15 08:41 Dose: 1 applic Gabapentin (Neurontin) 600 mg PO TID [facility] Last Admin: 12/08/15 08:34 Dose: 600 mg Lidocaine (Lidoderm) 1 ea TD DAILY [facility] Last Admin: 12/08/15 08:36 Dose: 1 ea Midodrine (Proamatine) 10 mg PO TID [facility] Last Admin: 12/08/15 08:35 Dose: 10 mg Tamsulosin HCl (Flomax) 0.4 mg PO DAILY [facility] Last Admin: 12/08/15 08:36 Dose: 0.4 mg - Labs Labs: 12/03/15 06:30 12/03/15 06:30 - Respiratory Exam Respiratory Exam: NORMAL BREATHING PATTERN - Cardiovascular Exam Cardiovascular Exam: Tachycardia - GI/Abdominal Exam GI & Abdominal Exam: Normal Bowel Sounds Assessment and Plan - Assessment and Plan (Free Text) Assessment: Disposition?? 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 ID consult appreciated
[2015-12-09] MEDS: CARBIDOPA PO SCH ×3 (05:32→20:57)
[2015-12-09] MEDS: LEVODOPA PO SCH ×3 (05:32→20:57)
[2015-12-09] MEDS: Lidocaine 5% Patch TD SCH (08:37)
--- NOTE | 2015-12-09 12:52 | CP.PCM.PN ---
Subjective - Date & Time of Evaluation Date of Evaluation: 12/09/15 Time of Evaluation: 13:30 - Subjective Subjective: Patient seen and examined bedside. Chronically ill male ,sleeping comfortably in NAD. After waking up states that feels weak and has pain over his RLE, with hand tremors at rest and axial rigidity No acute issues overnight. Hemodynamically stable, afebrile Objective - Vital Signs/Intake and Output Vital Signs (last 24 hours): Temp Pulse Resp BP Pulse Ox 97.4 F L 70 20 118/67 95 12/09/15 07:52 12/09/15 07:52 12/09/15 07:52 12/09/15 07:52 12/09/15 07:52 - Medications Medications: Current Medications Acetaminophen (Tylenol 325mg Tab) 650 mg PO Q4 PRN PRN Reason: Fever Last Admin: 12/08/15 21:18 Dose: 650 mg Bethanechol Chloride (Urecholine) 50 mg PO TID [facility] Last Admin: 12/09/15 12:03 Dose: 50 mg Carbidopa/Levodopa (Rytary Er 48.75 Mg-195 Mg Cap) 1 cap PO TID@0500,1300,2100 [facility] Last Admin: 12/09/15 12:03 Dose: 1 cap Docusate Sodium (Colace Liquid) 100 mg PO BID [facility] Last Admin: 12/09/15 08:38 Dose: 100 mg Fluocinonide (Lidex 0.05% Oint) 1 applic TOP BID [facility] Last Admin: 12/09/15 08:38 Dose: 1 applic Gabapentin (Neurontin) 600 mg PO TID [facility] Last Admin: 12/09/15 12:02 Dose: 600 mg Lidocaine (Lidoderm) 1 ea TD DAILY [facility] Last Admin: 12/09/15 08:37 Dose: 1 ea Midodrine (Proamatine) 10 mg PO TID [facility] Last Admin: 12/09/15 12:03 Dose: 10 mg Tamsulosin HCl (Flomax) 0.4 mg PO DAILY [facility] Last Admin: 12/09/15 08:39 Dose: 0.4 mg - Labs Labs: 12/03/15 06:30 12/03/15 06:30 - Constitutional Appears: Agitated, Confused, Chronically Ill - Head Exam Head Exam: NORMOCEPHALIC - Eye Exam Eye Exam: PERRL - ENT Exam ENT Exam: Normal Exam - Neck Exam Neck Exam: Full ROM, Normal Inspection - Respiratory Exam Respiratory Exam: Clear to Ausculation Bilateral, NORMAL BREATHING PATTERN. absent: Rales, Rhonchi, Wheezes - Cardiovascular Exam Cardiovascular Exam: REGULAR RHYTHM, RRR, +S1, +S2. absent: JVD - GI/Abdominal Exam GI & Abdominal Exam: Soft, Normal Bowel Sounds. absent: Guarding, Tenderness, Rebound - Rectal Exam Rectal Exam: Deferred - Extremities Exam Extremities Exam: Normal Inspection. absent: Pedal Edema Additional comments: axial rigidity bliateral resting hand tremor - Neurological Exam Neurological Exam: Alert, Awake - Psychiatric Exam Psychiatric exam: Anxious, Flat Affect - Skin Skin Exam: Dry, Pallor, Warm Assessment and Plan (1) Fall Status: Acute (2) Parkinson disease Status: Chronic (3) Thrombocytopenia Status: Chronic (4) Depression Status: Chronic (5) Hypotension Status: Chronic (6) DVT prophylaxis Status: Acute - Assessment and Plan (Free Text) Assessment: 85 y/o male with PMH parkinsons disease, shy Boot Turner Syndrome admitted to hospital initially for Zoster infection and s/p fall at home 07/11/15.He has been in the hospital ever since awaiting placement to [place].Patient is unable to take care of himself due to advanced Parkinsonism. During this admission treated for Zoster infection , UTI , Pneumonia,RLE cellulitis.Patient is almost bedbound , needs maximum assistance for everything , eating , dressing , sitting upo , transfer.Very unsteady gait with fear of falling.At current he is medically stable. 1. 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 Normocytic anemia -stable. Monitor 4. Thrombocytopenia- stable 5. 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
[2015-12-10] MEDS: LEVODOPA PO SCH ×3 (05:34→20:00)
[2015-12-10] MEDS: CARBIDOPA PO SCH ×3 (05:34→20:00)
[2015-12-10] MEDS: Lidocaine 5% Patch TD SCH (08:20)
--- NOTE | 2015-12-10 11:56 | CP.PCM.PN ---
Subjective - Date & Time of Evaluation Date of Evaluation: 12/10/15 Time of Evaluation: 11:30 - Subjective Subjective: no fever states he feels tired denies CP no SOB no abd pain Objective - Vital Signs/Intake and Output Vital Signs (last 24 hours): Temp Pulse Resp BP Pulse Ox 97.4 F L 84 20 144/84 98 12/10/15 07:59 12/10/15 07:59 12/10/15 07:59 12/10/15 07:59 12/10/15 07:59 - Medications Medications: Current Medications Acetaminophen (Tylenol 325mg Tab) 650 mg PO Q4 PRN PRN Reason: Fever Last Admin: 12/09/15 13:46 Dose: 650 mg Bethanechol Chloride (Urecholine) 50 mg PO TID [facility] Last Admin: 12/10/15 08:21 Dose: 50 mg Carbidopa/Levodopa (Rytary Er 48.75 Mg-195 Mg Cap) 1 cap PO TID@0500,1300,2100 [facility] Last Admin: 12/10/15 05:34 Dose: 1 cap Docusate Sodium (Colace Liquid) 100 mg PO BID [facility] Last Admin: 12/10/15 08:20 Dose: 100 mg Fluocinonide (Lidex 0.05% Oint) 1 applic TOP BID [facility] Last Admin: 12/10/15 08:22 Dose: 1 applic Gabapentin (Neurontin) 600 mg PO TID [facility] Last Admin: 12/10/15 08:22 Dose: 600 mg Lidocaine (Lidoderm) 1 ea TD DAILY [facility] Last Admin: 12/10/15 08:20 Dose: 1 ea Midodrine (Proamatine) 10 mg PO TID [facility] Last Admin: 12/10/15 08:20 Dose: 10 mg Tamsulosin HCl (Flomax) 0.4 mg PO DAILY [facility] Last Admin: 12/10/15 08:22 Dose: 0.4 mg - Labs Labs: 12/03/15 06:30 12/03/15 06:30 - Constitutional Appears: Chronically Ill - Head Exam Head Exam: NORMAL INSPECTION, NORMOCEPHALIC - Eye Exam Eye Exam: EOMI, Normal appearance Pupil Exam: NORMAL ACCOMODATION - ENT Exam ENT Exam: Mucous Membranes Moist, Normal External Ear Exam - Neck Exam Neck Exam: Full ROM. absent: Meningismus - Respiratory Exam Respiratory Exam: NORMAL BREATHING PATTERN. absent: Respiratory Distress - Cardiovascular Exam Cardiovascular Exam: REGULAR RHYTHM, +S1, +S2 - GI/Abdominal Exam GI & Abdominal Exam: Soft, Normal Bowel Sounds. absent: Tenderness - Extremities Exam Extremities Exam: Normal Capillary Refill. absent: Calf Tenderness, Pedal Edema - Back Exam Back Exam: absent: CVA tenderness (L), CVA tenderness (R) - Neurological Exam Neurological Exam: Alert, Awake, CN II-XII Intact Additional comments: noted hand tremors oriented to person and place - Psychiatric Exam Psychiatric exam: Flat Affect Assessment and Plan (1) Pneumonia Status: Resolved (2) Cellulitis Status: Resolved (3) UTI (urinary tract infection) Status: Resolved (4) Parkinson disease Status: Chronic (5) Thrombocytopenia Status: Chronic (6) Atrial fibrillation Status: Resolved (7) DVT prophylaxis Status: Acute - Assessment and Plan (Free Text) Assessment: 85 y/o male with PMH Parkinsons disease, Shy Lay Out Maker Syndrome admitted to hospital initially for Zoster infection and s/p fall at home 07/11/15. He has been in the hospital ever since awaiting placement to [place]. Patient is unable to take care of himself due to advanced Parkinsonism. During this admission treated for Zoster infection , UTI , Pneumonia, RLE cellulitis. Patient is almost bedbound , needs maximum assistance for everything , eating , dressing , sitting up and , transfer. Very unsteady gait with fear of falling. Medically stable at present 1. Parkinsons Disease -on carbidopa and rytary 2. Shy Lay Out Maker syndrome 3. Normocytic anemia -stable. Monitor 4. Thrombocytopenia- stable 5. Resolved infections- treated with antibiotics UTI , resolved Pneumonia-resolved RLE cellulitis-resolved Zoster -resolved 6.Bilateral shoulder pain sec to OA - lidoderm patch and pain management Awaiting Placement for NH
[2015-12-11] MEDS: LEVODOPA PO SCH ×3 (05:46→20:11)
[2015-12-11] MEDS: CARBIDOPA PO SCH ×3 (05:46→20:11)
[2015-12-11] MEDS: Lidocaine 5% Patch TD SCH (08:36)
--- NOTE | 2015-12-11 12:24 | CP.PCM.PN ---
Subjective - Date & Time of Evaluation Date of Evaluation: 12/11/15 Time of Evaluation: 12:15 - Subjective Subjective: Patient seen bedside.Chronically ill patient lying in bed yelling for help.States does not feel well. Confused at times , not oriented to place or time.States that wants to get better and walk. Hemodynamically stable, afebrile. No acute issues overnight. Objective - Vital Signs/Intake and Output Vital Signs (last 24 hours): Temp Pulse Resp BP Pulse Ox 97.7 F 75 20 114/73 98 12/11/15 08:25 12/11/15 08:25 12/11/15 08:25 12/11/15 08:25 12/11/15 08:25 - Medications Medications: Current Medications Acetaminophen (Tylenol 325mg Tab) 650 mg PO Q4 PRN PRN Reason: Fever Last Admin: 12/10/15 12:53 Dose: 650 mg Bethanechol Chloride (Urecholine) 50 mg PO TID [facility] Carbidopa/Levodopa (Rytary Er 48.75 Mg-195 Mg Cap) 1 cap PO TID@0500,1300,2100 [facility] Last Admin: 12/11/15 05:46 Dose: 1 cap Docusate Sodium (Colace Liquid) 100 mg PO BID [facility] Last Admin: 12/11/15 08:36 Dose: 100 mg Fluocinonide (Lidex 0.05% Oint) 1 applic TOP BID [facility] Last Admin: 12/11/15 08:36 Dose: 1 applic Gabapentin (Neurontin) 600 mg PO TID [facility] Last Admin: 12/11/15 08:36 Dose: 600 mg Lidocaine (Lidoderm) 1 ea TD DAILY [facility] Last Admin: 12/11/15 08:36 Dose: 1 ea Midodrine (Proamatine) 10 mg PO TID [facility] Last Admin: 12/11/15 08:36 Dose: 10 mg Tamsulosin HCl (Flomax) 0.4 mg PO DAILY [facility] Last Admin: 12/11/15 08:36 Dose: 0.4 mg - Labs Labs: 12/03/15 06:30 12/03/15 06:30 - Constitutional Appears: Agitated, Confused, Chronically Ill, Other - Head Exam Head Exam: ATRAUMATIC, NORMOCEPHALIC - Eye Exam Eye Exam: EOMI, PERRL Pupil Exam: NORMAL ACCOMODATION - ENT Exam ENT Exam: Mucous Membranes Moist, Normal Exam - Neck Exam Neck Exam: Normal Inspection - Respiratory Exam Respiratory Exam: Clear to Ausculation Bilateral, NORMAL BREATHING PATTERN. absent: Rales, Wheezes - Cardiovascular Exam Cardiovascular Exam: REGULAR RHYTHM, RRR, +S1, +S2. absent: JVD - GI/Abdominal Exam GI & Abdominal Exam: Soft, Normal Bowel Sounds. absent: Guarding, Tenderness, Rebound - Rectal Exam Rectal Exam: Deferred - Extremities Exam Extremities Exam: Normal Inspection. absent: Calf Tenderness, Pedal Edema - Neurological Exam Neurological Exam: Alert, Awake. absent: Oriented x3 - Psychiatric Exam Psychiatric exam: Anxious, Depressed, Flat Affect - Skin Skin Exam: Dry, Pallor, Warm Assessment and Plan (1) Fall Status: Acute (2) Parkinson disease Status: Chronic (3) Thrombocytopenia Status: Chronic (4) Depression Status: Chronic (5) Hypotension Status: Chronic (6) DVT prophylaxis Status: Acute - Assessment and Plan (Free Text) Assessment: 85 y/o male with PMH Parkinsons disease, Shy Mill Platform Supervisor Syndrome admitted to hospital initially for Zoster infection and s/p fall at home 07/11/15. He has been in the hospital ever since awaiting placement [place]. Patient is unable to take care of himself due to advanced Parkinsonism. During this admission treated for Zoster infection , UTI , Pneumonia, RLE cellulitis. Patient is almost bedbound , needs maximum assistance for everything , eating , dressing , sitting up and , transfer. Very unsteady gait with fear of falling. Medically stable at present 1. 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 Normocytic anemia -stable. Monitor 4. Thrombocytopenia- stable 5. Resolved infections- treated with antibiotics UTI , resolved Pneumonia-resolved RLE cellulitis-resolved Zoster -resolved 6.Bilateral shoulder pain sec to OA - lidoderm patch and pain management Awaiting Placement for NH Code status: Full code Competent as per psychiatry Surrogate decision maker granddacelso Vaughan
[2015-12-11] MEDS: Bethanechol 50 MG TAB PO SCH ×2 (13:32→16:11)
[2015-12-12] MEDS: LEVODOPA PO SCH ×3 (06:15→21:36)
[2015-12-12] MEDS: CARBIDOPA PO SCH ×3 (06:15→21:36)
[2015-12-12] MEDS: Bethanechol 50 MG TAB PO SCH ×3 (08:34→19:28)
[2015-12-12] MEDS: Lidocaine 5% Patch TD SCH (08:35)
--- NOTE | 2015-12-12 21:01 | CP.PCM.PN ---
Subjective - Date & Time of Evaluation Date of Evaluation: 12/12/15 Time of Evaluation: 22:22 - Subjective Subjective: More alert Objective - Vital Signs/Intake and Output Vital Signs (last 24 hours): Temp Pulse Resp BP Pulse Ox 97.3 F L 87 20 103/51 L 100 12/12/15 16:48 12/12/15 16:48 12/12/15 16:48 12/12/15 16:48 12/12/15 16:48 - Medications Medications: Current Medications Bethanechol Chloride (Urecholine) 50 mg PO TID [facility] Last Admin: 12/12/15 19:28 Dose: 50 mg Carbidopa/Levodopa (Rytary Er 48.75 Mg-195 Mg Cap) 1 cap PO TID@0500,1300,2100 [facility] Last Admin: 12/12/15 12:50 Dose: 1 cap Docusate Sodium (Colace Liquid) 100 mg PO BID [facility] Last Admin: 12/12/15 16:53 Dose: 100 mg Fluocinonide (Lidex 0.05% Oint) 1 applic TOP BID [facility] Last Admin: 12/12/15 16:54 Dose: 1 applic Lidocaine (Lidoderm) 1 ea TD DAILY [facility] Last Admin: 12/12/15 08:35 Dose: 1 ea Midodrine (Proamatine) 10 mg PO TID [facility] Last Admin: 12/12/15 16:53 Dose: 10 mg Tamsulosin HCl (Flomax) 0.4 mg PO DAILY [facility] Last Admin: 12/12/15 08:34 Dose: 0.4 mg - Labs Labs: 12/03/15 06:30 12/03/15 06:30 - Respiratory Exam Respiratory Exam: NORMAL BREATHING PATTERN - Cardiovascular Exam Cardiovascular Exam: REGULAR RHYTHM - GI/Abdominal Exam GI & Abdominal Exam: Normal Bowel Sounds Assessment and Plan - Assessment and Plan (Free Text) Assessment: Disposition?? 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 ID consult appreciated
[2015-12-13] MEDS: LEVODOPA PO SCH ×3 (05:12→21:18)
[2015-12-13] MEDS: CARBIDOPA PO SCH ×3 (05:12→21:18)
[2015-12-13] MEDS: Lidocaine 5% Patch TD SCH (08:18)
[2015-12-13] MEDS: Bethanechol 50 MG TAB PO SCH ×3 (08:19→16:20)
--- NOTE | 2015-12-13 17:53 | CP.PCM.PN ---
Subjective - Date & Time of Evaluation Date of Evaluation: 12/13/15 Time of Evaluation: 22:22 - Subjective Subjective: Resting Objective - Vital Signs/Intake and Output Vital Signs (last 24 hours): Temp Pulse Resp BP Pulse Ox 96.8 F L 85 20 130/51 L 98 12/13/15 16:30 12/13/15 17:00 12/13/15 17:00 12/13/15 17:00 12/13/15 17:00 Intake and Output: 12/13/15 12/13/15 06:59 18:59 Output Total 700 Balance -700 - Medications Medications: Current Medications Bethanechol Chloride (Urecholine) 50 mg PO TID [facility] Last Admin: 12/13/15 16:20 Dose: 50 mg Carbidopa/Levodopa (Rytary Er 48.75 Mg-195 Mg Cap) 1 cap PO TID@0500,1300,2100 [facility] Last Admin: 12/13/15 12:52 Dose: 1 cap Docusate Sodium (Colace Liquid) 100 mg PO BID [facility] Last Admin: 12/13/15 16:20 Dose: 100 mg Fluocinonide (Lidex 0.05% Oint) 1 applic TOP BID [facility] Last Admin: 12/13/15 16:20 Dose: 1 applic Lidocaine (Lidoderm) 1 ea TD DAILY [facility] Last Admin: 12/13/15 08:18 Dose: 1 ea Midodrine (Proamatine) 10 mg PO TID [facility] Last Admin: 12/13/15 16:19 Dose: 10 mg Tamsulosin HCl (Flomax) 0.4 mg PO DAILY [facility] Last Admin: 12/13/15 08:19 Dose: 0.4 mg - Labs Labs: 12/03/15 06:30 12/03/15 06:30 - Respiratory Exam Respiratory Exam: NORMAL BREATHING PATTERN - Cardiovascular Exam Cardiovascular Exam: REGULAR RHYTHM - GI/Abdominal Exam GI & Abdominal Exam: Normal Bowel Sounds Assessment and Plan - Assessment and Plan (Free Text) Assessment: Disposition?? 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 ID consult appreciated
[2015-12-14] MEDS: CARBIDOPA PO SCH ×3 (05:29→20:52)
[2015-12-14] MEDS: LEVODOPA PO SCH ×3 (05:29→20:52)
[2015-12-14] MEDS: Bethanechol 50 MG TAB PO SCH ×2 (08:59→12:10)
[2015-12-14] MEDS: Lidocaine 5% Patch TD SCH (09:04)
--- NOTE | 2015-12-14 21:03 | CP.PCM.PN ---
Subjective - Date & Time of Evaluation Date of Evaluation: 12/14/15 Time of Evaluation: 22:22 - Subjective Subjective: Above noted Objective - Vital Signs/Intake and Output Vital Signs (last 24 hours): Temp Pulse Resp BP Pulse Ox 98.4 F 88 20 106/76 99 12/14/15 08:31 12/14/15 08:31 12/14/15 08:31 12/14/15 08:31 12/14/15 08:31 - Medications Medications: Current Medications Bethanechol Chloride (Urecholine) 50 mg PO TID [facility] Last Admin: 12/14/15 12:10 Dose: 50 mg Carbidopa/Levodopa (Rytary Er 48.75 Mg-195 Mg Cap) 1 cap PO TID@0500,1300,2100 [facility] Last Admin: 12/14/15 20:52 Dose: 1 cap Docusate Sodium (Colace Liquid) 100 mg PO BID [facility] Last Admin: 12/14/15 08:59 Dose: 100 mg Fluocinonide (Lidex 0.05% Oint) 1 applic TOP BID [facility] Last Admin: 12/14/15 09:04 Dose: 1 applic Lidocaine (Lidoderm) 1 ea TD DAILY [facility] Last Admin: 12/14/15 09:04 Dose: 1 ea Midodrine (Proamatine) 10 mg PO TID [facility] Last Admin: 12/14/15 12:10 Dose: 10 mg Tamsulosin HCl (Flomax) 0.4 mg PO DAILY [facility] Last Admin: 12/14/15 08:59 Dose: 0.4 mg - Labs Labs: 12/03/15 06:30 12/03/15 06:30 - Respiratory Exam Respiratory Exam: NORMAL BREATHING PATTERN - Cardiovascular Exam Cardiovascular Exam: REGULAR RHYTHM - GI/Abdominal Exam GI & Abdominal Exam: Normal Bowel Sounds Assessment and Plan - Assessment and Plan (Free Text) Assessment: Disposition?? 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 ID consult appreciated
[2015-12-15] MEDS: CARBIDOPA PO SCH ×3 (06:05→20:46)
[2015-12-15] MEDS: LEVODOPA PO SCH ×3 (06:05→20:46)
[2015-12-15] MEDS: Lidocaine 5% Patch TD SCH (08:28)
[2015-12-15] MEDS: Bethanechol 50 MG TAB PO SCH ×3 (08:28→16:42)
--- NOTE | 2015-12-15 19:24 | CP.PCM.PN ---
Subjective - Date & Time of Evaluation Date of Evaluation: 12/15/15 Time of Evaluation: 22:22 - Subjective Subjective: No change Objective - Vital Signs/Intake and Output Vital Signs (last 24 hours): Temp Pulse Resp BP Pulse Ox 97.7 F 90 20 119/69 100 12/15/15 16:39 12/15/15 16:39 12/15/15 16:39 12/15/15 16:39 12/15/15 16:39 - Medications Medications: Current Medications Acetaminophen (Tylenol 325mg Tab) 650 mg PO Q6 PRN PRN Reason: Pain, moderate (4-7) Last Admin: 12/15/15 11:17 Dose: 650 mg Bethanechol Chloride (Urecholine) 50 mg PO TID [facility] Last Admin: 12/15/15 16:42 Dose: 50 mg Carbidopa/Levodopa (Rytary Er 48.75 Mg-195 Mg Cap) 1 cap PO TID@0500,1300,2100 [facility] Last Admin: 12/15/15 12:37 Dose: 1 cap Docusate Sodium (Colace Liquid) 100 mg PO BID [facility] Last Admin: 12/15/15 16:41 Dose: 100 mg Fluocinonide (Lidex 0.05% Oint) 1 applic TOP BID [facility] Last Admin: 12/15/15 16:42 Dose: 1 applic Lidocaine (Lidoderm) 1 ea TD DAILY [facility] Last Admin: 12/15/15 08:28 Dose: 1 ea Midodrine (Proamatine) 10 mg PO TID [facility] Last Admin: 12/15/15 16:42 Dose: 10 mg Tamsulosin HCl (Flomax) 0.4 mg PO DAILY [facility] Last Admin: 12/15/15 08:29 Dose: 0.4 mg - Labs Labs: 12/03/15 06:30 12/03/15 06:30 - Respiratory Exam Respiratory Exam: NORMAL BREATHING PATTERN - Cardiovascular Exam Cardiovascular Exam: REGULAR RHYTHM - GI/Abdominal Exam GI & Abdominal Exam: Normal Bowel Sounds Assessment and Plan - Assessment and Plan (Free Text) Assessment: Disposition?? 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 ID consult appreciated
[2015-12-16] MEDS: LEVODOPA PO SCH ×3 (05:20→21:19)
[2015-12-16] MEDS: CARBIDOPA PO SCH ×3 (05:20→21:19)
[2015-12-16] MEDS: Bethanechol 50 MG TAB PO SCH ×3 (09:20→16:54)
[2015-12-16] MEDS: Lidocaine 5% Patch TD SCH (09:21)
--- NOTE | 2015-12-16 10:41 | CP.PCM.PN ---
Subjective - Date & Time of Evaluation Date of Evaluation: 12/16/15 Time of Evaluation: 09:00 - Subjective Subjective: pt stable, eating breakfast comfortably. denies chest pain, sob, abd pain or discomfort. nad. vss. Objective - Vital Signs/Intake and Output Vital Signs (last 24 hours): Temp Pulse Resp BP Pulse Ox 97.4 F L 67 20 124/73 97 12/16/15 09:00 12/16/15 09:00 12/16/15 09:00 12/16/15 09:00 12/16/15 09:00 - Medications Medications: Current Medications Acetaminophen (Tylenol 325mg Tab) 650 mg PO Q6 PRN PRN Reason: Pain, moderate (4-7) Last Admin: 12/15/15 11:17 Dose: 650 mg Bethanechol Chloride (Urecholine) 50 mg PO TID [facility] Last Admin: 12/16/15 09:20 Dose: 50 mg Carbidopa/Levodopa (Rytary Er 48.75 Mg-195 Mg Cap) 1 cap PO TID@0500,1300,2100 [facility] Last Admin: 12/16/15 05:20 Dose: 1 cap Docusate Sodium (Colace Liquid) 100 mg PO BID [facility] Last Admin: 12/16/15 09:20 Dose: 100 mg Fluocinonide (Lidex 0.05% Oint) 1 applic TOP BID [facility] Last Admin: 12/16/15 09:22 Dose: 1 applic Lidocaine (Lidoderm) 1 ea TD DAILY [facility] Last Admin: 12/16/15 09:21 Dose: 1 ea Midodrine (Proamatine) 10 mg PO TID [facility] Last Admin: 12/16/15 09:21 Dose: 10 mg Tamsulosin HCl (Flomax) 0.4 mg PO DAILY [facility] Last Admin: 12/16/15 09:20 Dose: 0.4 mg - Labs Labs: 12/03/15 06:30 12/03/15 06:30 - Constitutional Appears: Non-toxic, No Acute Distress - Head Exam Head Exam: ATRAUMATIC, NORMOCEPHALIC - Eye Exam Eye Exam: EOMI, Normal appearance, PERRL Pupil Exam: NORMAL ACCOMODATION - ENT Exam ENT Exam: Mucous Membranes Moist, Normal Oropharynx - Neck Exam Neck Exam: Full ROM, Normal Inspection - Respiratory Exam Respiratory Exam: Clear to Ausculation Bilateral, NORMAL BREATHING PATTERN - Cardiovascular Exam Cardiovascular Exam: RRR, +S1, +S2. absent: Gallop, Rubs - GI/Abdominal Exam GI & Abdominal Exam: Soft, Normal Bowel Sounds. absent: Tenderness - Extremities Exam Extremities Exam: Normal Capillary Refill. absent: Tenderness - Back Exam Back Exam: absent: CVA tenderness (L), CVA tenderness (R) - Neurological Exam Neurological Exam: Alert, Awake - Psychiatric Exam Psychiatric exam: Normal Affect, Normal Mood - Skin Skin Exam: Dry, Warm Assessment and Plan (1) UTI (urinary tract infection) Status: Resolved (2) Cellulitis Status: Resolved (3) Lethargic Status: Acute (4) Fall Status: Acute (5) Parkinson disease Status: Chronic (6) Orthostasis Status: Chronic (7) Thrombocytopenia Status: Chronic (8) Depression Status: Chronic (9) DVT prophylaxis Status: Acute - Assessment and Plan (Free Text) Plan: 85 y/o male with PMH Parkinsons disease, Shy Medical Record Clerk Syndrome admitted to hospital initially for Zoster infection and s/p fall at home 07/11/15. He has been in the hospital ever since awaiting placement to [place]. Patient is unable to take care of himself due to advanced Parkinsonism. During this admission treated for Zoster infection , UTI , Pneumonia, RLE cellulitis. Patient is almost bedbound , needs maximum assistance for everything , eating , dressing , sitting up and , transfer. Very unsteady gait with fear of falling. Medically stable at this time. 1. 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 Normocytic anemia -stable. Monitor 4. Thrombocytopenia- stable 5. Resolved infections- treated with antibiotics UTI , resolved Pneumonia-resolved RLE cellulitis-resolved Zoster -resolved 6.Bilateral shoulder pain sec to OA - lidoderm patch and pain management Awaiting Placement for NH Code status: Full code Competent as per psychiatry Surrogate decision maker granddacelso Vaughan
[2015-12-17] MEDS: CARBIDOPA PO SCH ×3 (05:48→20:17)
[2015-12-17] MEDS: LEVODOPA PO SCH ×3 (05:48→20:17)
[2015-12-17] MEDS: Bethanechol 50 MG TAB PO SCH ×3 (09:25→17:23)
[2015-12-17] MEDS: Lidocaine 5% Patch TD SCH (09:26)
--- NOTE | 2015-12-17 12:34 | CP.PCM.PN ---
Subjective - Date & Time of Evaluation Date of Evaluation: 12/17/15 Time of Evaluation: 22:22 - Subjective Subjective: Doing well today Objective - Vital Signs/Intake and Output Vital Signs (last 24 hours): Temp Pulse Resp BP Pulse Ox 98 F 72 18 113/57 L 98 12/17/15 08:26 12/17/15 08:26 12/17/15 08:26 12/17/15 08:26 12/17/15 08:26 - Medications Medications: Current Medications Acetaminophen (Tylenol 325mg Tab) 650 mg PO Q6 PRN PRN Reason: Pain, moderate (4-7) Last Admin: 12/15/15 11:17 Dose: 650 mg Bethanechol Chloride (Urecholine) 50 mg PO TID [facility] Last Admin: 12/17/15 09:25 Dose: 50 mg Carbidopa/Levodopa (Rytary Er 48.75 Mg-195 Mg Cap) 1 cap PO TID@0500,1300,2100 [facility] Last Admin: 12/17/15 05:48 Dose: 1 cap Docusate Sodium (Colace Liquid) 100 mg PO BID [facility] Last Admin: 12/17/15 09:25 Dose: 100 mg Fluocinonide (Lidex 0.05% Oint) 1 applic TOP BID [facility] Last Admin: 12/17/15 09:26 Dose: 1 applic Lidocaine (Lidoderm) 1 ea TD DAILY [facility] Last Admin: 12/17/15 09:26 Dose: 1 ea Midodrine (Proamatine) 10 mg PO TID [facility] Last Admin: 12/17/15 09:25 Dose: 10 mg Tamsulosin HCl (Flomax) 0.4 mg PO DAILY [facility] Last Admin: 12/17/15 09:26 Dose: 0.4 mg - Labs Labs: 12/03/15 06:30 12/03/15 06:30 - Respiratory Exam Respiratory Exam: NORMAL BREATHING PATTERN - Cardiovascular Exam Cardiovascular Exam: REGULAR RHYTHM - GI/Abdominal Exam GI & Abdominal Exam: Normal Bowel Sounds Assessment and Plan - Assessment and Plan (Free Text) Assessment: Disposition?? 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 ID consult appreciated
[2015-12-18] MEDS: CARBIDOPA PO SCH ×3 (05:53→20:53)
[2015-12-18] MEDS: LEVODOPA PO SCH ×3 (05:53→20:53)
[2015-12-18] MEDS: Bethanechol 50 MG TAB PO SCH ×3 (08:05→16:32)
[2015-12-18] MEDS: Lidocaine 5% Patch TD SCH (08:09)
--- NOTE | 2015-12-18 20:53 | CP.PCM.PN ---
Subjective - Date & Time of Evaluation Date of Evaluation: 12/18/15 Time of Evaluation: 22:22 - Subjective Subjective: Doing well Objective - Vital Signs/Intake and Output Vital Signs (last 24 hours): Temp Pulse Resp BP Pulse Ox 96.8 F L 80 16 133/63 98 12/18/15 16:17 12/18/15 16:17 12/18/15 16:17 12/18/15 16:17 12/18/15 16:17 - Medications Medications: Current Medications Acetaminophen (Tylenol 325mg Tab) 650 mg PO Q6 PRN PRN Reason: Pain, moderate (4-7) Last Admin: 12/17/15 20:17 Dose: 650 mg Bethanechol Chloride (Urecholine) 50 mg PO TID [facility] Last Admin: 12/18/15 16:32 Dose: 50 mg Carbidopa/Levodopa (Rytary Er 48.75 Mg-195 Mg Cap) 1 cap PO TID@0500,1300,2100 [facility] Last Admin: 12/18/15 14:16 Dose: 1 cap Docusate Sodium (Colace Liquid) 100 mg PO BID [facility] Last Admin: 12/18/15 16:32 Dose: 100 mg Fluocinonide (Lidex 0.05% Oint) 1 applic TOP BID [facility] Last Admin: 12/18/15 16:33 Dose: 1 applic Lidocaine (Lidoderm) 1 ea TD DAILY [facility] Last Admin: 12/18/15 08:09 Dose: 1 ea Midodrine (Proamatine) 10 mg PO TID [facility] Last Admin: 12/18/15 16:32 Dose: 10 mg Tamsulosin HCl (Flomax) 0.4 mg PO DAILY [facility] Last Admin: 12/18/15 08:06 Dose: 0.4 mg - Labs Labs: 12/03/15 06:30 12/03/15 06:30 - Respiratory Exam Respiratory Exam: NORMAL BREATHING PATTERN - Cardiovascular Exam Cardiovascular Exam: REGULAR RHYTHM - GI/Abdominal Exam GI & Abdominal Exam: Normal Bowel Sounds Assessment and Plan - Assessment and Plan (Free Text) Assessment: Disposition?? 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 ID consult appreciated
[2015-12-19] MEDS: LEVODOPA PO SCH ×3 (05:38→20:35)
[2015-12-19] MEDS: CARBIDOPA PO SCH ×3 (05:38→20:35)
[2015-12-19] MEDS: Lidocaine 5% Patch TD SCH (08:32)
[2015-12-19] MEDS: Bethanechol 50 MG TAB PO SCH ×3 (08:34→16:08)
--- NOTE | 2015-12-19 21:34 | CP.PCM.PN ---
Subjective - Date & Time of Evaluation Date of Evaluation: 12/19/15 Time of Evaluation: 22:22 - Subjective Subjective: No change Objective - Vital Signs/Intake and Output Vital Signs (last 24 hours): Temp Pulse Resp BP Pulse Ox 97.5 F L 83 20 97/57 L 97 12/19/15 17:21 12/19/15 17:21 12/19/15 17:21 12/19/15 17:21 12/19/15 17:21 - Medications Medications: Current Medications Acetaminophen (Tylenol 325mg Tab) 650 mg PO Q6 PRN PRN Reason: Pain, moderate (4-7) Last Admin: 12/17/15 20:17 Dose: 650 mg Bethanechol Chloride (Urecholine) 50 mg PO TID [facility] Last Admin: 12/19/15 16:08 Dose: 50 mg Carbidopa/Levodopa (Rytary Er 48.75 Mg-195 Mg Cap) 1 cap PO TID@0500,1300,2100 [facility] Last Admin: 12/19/15 20:35 Dose: 1 cap Docusate Sodium (Colace Liquid) 100 mg PO BID [facility] Last Admin: 12/19/15 16:08 Dose: 100 mg Fluocinonide (Lidex 0.05% Oint) 1 applic TOP BID [facility] Last Admin: 12/19/15 16:08 Dose: 1 applic Lidocaine (Lidoderm) 1 ea TD DAILY [facility] Last Admin: 12/19/15 08:32 Dose: 1 ea Midodrine (Proamatine) 10 mg PO TID [facility] Last Admin: 12/19/15 16:08 Dose: 10 mg Tamsulosin HCl (Flomax) 0.4 mg PO DAILY [facility] Last Admin: 12/19/15 08:33 Dose: 0.4 mg - Labs Labs: 12/03/15 06:30 12/03/15 06:30 - Respiratory Exam Respiratory Exam: NORMAL BREATHING PATTERN - Cardiovascular Exam Cardiovascular Exam: REGULAR RHYTHM - GI/Abdominal Exam GI & Abdominal Exam: Normal Bowel Sounds Assessment and Plan - Assessment and Plan (Free Text) Assessment: Disposition?? 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 ID consult appreciated
[2015-12-20] MEDS: CARBIDOPA PO SCH ×3 (05:25→20:46)
[2015-12-20] MEDS: LEVODOPA PO SCH ×3 (05:25→20:46)
[2015-12-20] MEDS: Bethanechol 50 MG TAB PO SCH ×3 (08:34→16:07)
[2015-12-20] MEDS: Lidocaine 5% Patch TD SCH (08:34)
--- NOTE | 2015-12-20 19:52 | CP.PCM.PN ---
Subjective - Date & Time of Evaluation Date of Evaluation: 12/20/15 Time of Evaluation: 22:22 - Subjective Subjective: Doing well Objective - Vital Signs/Intake and Output Vital Signs (last 24 hours): Temp Pulse Resp BP Pulse Ox 97.2 F L 90 20 136/95 H 93 L 12/20/15 16:35 12/20/15 16:35 12/20/15 16:35 12/20/15 16:35 12/20/15 16:35 - Medications Medications: Current Medications Acetaminophen (Tylenol 325mg Tab) 650 mg PO Q6 PRN PRN Reason: Pain, moderate (4-7) Last Admin: 12/20/15 11:14 Dose: 650 mg Bethanechol Chloride (Urecholine) 50 mg PO TID [facility] Last Admin: 12/20/15 16:07 Dose: 50 mg Carbidopa/Levodopa (Rytary Er 48.75 Mg-195 Mg Cap) 1 cap PO TID@0500,1300,2100 [facility] Last Admin: 12/20/15 13:44 Dose: 1 cap Docusate Sodium (Colace Liquid) 100 mg PO BID [facility] Last Admin: 12/20/15 16:07 Dose: 100 mg Fluocinonide (Lidex 0.05% Oint) 1 applic TOP BID [facility] Last Admin: 12/20/15 16:07 Dose: 1 applic Lidocaine (Lidoderm) 1 ea TD DAILY [facility] Last Admin: 12/20/15 08:34 Dose: 1 ea Midodrine (Proamatine) 10 mg PO TID [facility] Last Admin: 12/20/15 16:07 Dose: 10 mg Tamsulosin HCl (Flomax) 0.4 mg PO DAILY [facility] Last Admin: 12/20/15 08:35 Dose: 0.4 mg - Labs Labs: 12/03/15 06:30 12/03/15 06:30 - Respiratory Exam Respiratory Exam: NORMAL BREATHING PATTERN - Cardiovascular Exam Cardiovascular Exam: REGULAR RHYTHM - GI/Abdominal Exam GI & Abdominal Exam: Normal Bowel Sounds Assessment and Plan - Assessment and Plan (Free Text) Assessment: Disposition?? 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
[2015-12-21] MEDS: LEVODOPA PO SCH ×3 (06:09→21:23)
[2015-12-21] MEDS: CARBIDOPA PO SCH ×3 (06:09→21:23)
[2015-12-21] MEDS: Lidocaine 5% Patch TD SCH (09:25)
[2015-12-21] MEDS: Bethanechol 50 MG TAB PO SCH ×3 (09:26→17:47)
--- NOTE | 2015-12-21 21:04 | CP.PCM.PN ---
Subjective - Date & Time of Evaluation Date of Evaluation: 12/21/15 Time of Evaluation: 22:22 - Subjective Subjective: resting in bed Objective - Vital Signs/Intake and Output Vital Signs (last 24 hours): Temp Pulse Resp BP Pulse Ox 98.1 F 89 20 108/43 L 98 12/21/15 17:33 12/21/15 17:33 12/21/15 17:33 12/21/15 18:58 12/21/15 17:33 - Medications Medications: Current Medications Acetaminophen (Tylenol 325mg Tab) 650 mg PO Q6 PRN PRN Reason: Pain, moderate (4-7) Last Admin: 12/21/15 13:26 Dose: 650 mg Bethanechol Chloride (Urecholine) 50 mg PO TID [facility] Last Admin: 12/21/15 17:47 Dose: 50 mg Carbidopa/Levodopa (Rytary Er 48.75 Mg-195 Mg Cap) 1 cap PO TID@0500,1300,2100 [facility] Last Admin: 12/21/15 12:32 Dose: 1 cap Docusate Sodium (Colace Liquid) 100 mg PO BID [facility] Last Admin: 12/21/15 17:46 Dose: 100 mg Fluocinonide (Lidex 0.05% Oint) 1 applic TOP BID [facility] Last Admin: 12/21/15 17:46 Dose: 1 applic Lidocaine (Lidoderm) 1 ea TD DAILY [facility] Last Admin: 12/21/15 09:25 Dose: 1 ea Midodrine (Proamatine) 10 mg PO TID [facility] Last Admin: 12/21/15 17:47 Dose: 10 mg Tamsulosin HCl (Flomax) 0.4 mg PO DAILY [facility] Last Admin: 12/21/15 09:24 Dose: 0.4 mg - Labs Labs: 12/03/15 06:30 12/03/15 06:30 - Respiratory Exam Respiratory Exam: NORMAL BREATHING PATTERN - Cardiovascular Exam Cardiovascular Exam: REGULAR RHYTHM - GI/Abdominal Exam GI & Abdominal Exam: Normal Bowel Sounds Assessment and Plan - Assessment and Plan (Free Text) Assessment: Disposition?? 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 ID consult appreciated
[2015-12-22] MEDS: LEVODOPA PO SCH ×3 (04:46→20:06)
[2015-12-22] MEDS: CARBIDOPA PO SCH ×3 (04:46→20:06)
[2015-12-22] MEDS: Bethanechol 50 MG TAB PO SCH ×3 (08:42→17:49)
[2015-12-22] MEDS: Lidocaine 5% Patch TD SCH (08:42)
--- NOTE | 2015-12-22 20:46 | CP.PCM.PN ---
Subjective - Date & Time of Evaluation Date of Evaluation: 12/22/15 Time of Evaluation: 22:22 - Subjective Subjective: Seen by family today Objective - Vital Signs/Intake and Output Vital Signs (last 24 hours): Temp Pulse Resp BP Pulse Ox 97.7 F 82 20 111/56 L 98 12/22/15 16:28 12/22/15 19:25 12/22/15 16:28 12/22/15 19:25 12/22/15 16:28 - Medications Medications: Current Medications Acetaminophen (Tylenol 325mg Tab) 650 mg PO Q6 PRN PRN Reason: Pain, moderate (4-7) Last Admin: 12/22/15 19:15 Dose: 650 mg Bethanechol Chloride (Urecholine) 50 mg PO TID [facility] Last Admin: 12/22/15 17:49 Dose: 50 mg Carbidopa/Levodopa (Rytary Er 48.75 Mg-195 Mg Cap) 1 cap PO TID@0500,1300,2100 [facility] Last Admin: 12/22/15 20:06 Dose: 1 cap Docusate Sodium (Colace Liquid) 100 mg PO BID [facility] Last Admin: 12/22/15 17:48 Dose: 100 mg Fluocinonide (Lidex 0.05% Oint) 1 applic TOP BID [facility] Last Admin: 12/22/15 17:48 Dose: 1 applic Lidocaine (Lidoderm) 1 ea TD DAILY [facility] Last Admin: 12/22/15 08:42 Dose: 1 ea Midodrine (Proamatine) 10 mg PO TID [facility] Last Admin: 12/22/15 17:49 Dose: 10 mg Tamsulosin HCl (Flomax) 0.4 mg PO DAILY [facility] Last Admin: 12/22/15 08:41 Dose: 0.4 mg - Labs Labs: 12/03/15 06:30 12/03/15 06:30 - Respiratory Exam Respiratory Exam: NORMAL BREATHING PATTERN - Cardiovascular Exam Cardiovascular Exam: REGULAR RHYTHM - GI/Abdominal Exam GI & Abdominal Exam: Normal Bowel Sounds Assessment and Plan - Assessment and Plan (Free Text) Assessment: Disposition?? 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 ID consult appreciated
[2015-12-23] MEDS: CARBIDOPA PO SCH ×3 (05:09→20:12)
[2015-12-23] MEDS: LEVODOPA PO SCH ×3 (05:09→20:12)
[2015-12-23] MEDS: Lidocaine 5% Patch TD SCH (08:50)
[2015-12-23] MEDS: Bethanechol 50 MG TAB PO SCH ×3 (08:52→16:31)
--- NOTE | 2015-12-23 14:48 | CP.PCM.PN ---
Subjective - Date & Time of Evaluation Date of Evaluation: 12/23/15 Time of Evaluation: 14:30 - Subjective Subjective: Patient seen and examined bedside. Elderly male lying in bed ,screaming at times asking for help and confused. Complains of being unable to move his Right UE because his shoulder is dislocate. RUE place to abduction position and with slight pressure on humeral head humerus pushed into place, pulses intact Hemodynamically stable, afebrile. No acute issues overnight. Objective - Vital Signs/Intake and Output Vital Signs (last 24 hours): Temp Pulse Resp BP Pulse Ox 97.3 F L 86 20 102/73 99 12/23/15 07:37 12/23/15 07:37 12/23/15 07:37 12/23/15 07:37 12/23/15 07:37 - Medications Medications: Current Medications Acetaminophen (Tylenol 325mg Tab) 650 mg PO Q6 PRN PRN Reason: Pain, moderate (4-7) Last Admin: 12/23/15 12:22 Dose: 650 mg Bethanechol Chloride (Urecholine) 50 mg PO TID [facility] Last Admin: 12/23/15 12:21 Dose: 50 mg Carbidopa/Levodopa (Rytary Er 48.75 Mg-195 Mg Cap) 1 cap PO TID@0500,1300,2100 [facility] Last Admin: 12/23/15 12:21 Dose: 1 cap Docusate Sodium (Colace Liquid) 100 mg PO BID [facility] Last Admin: 12/23/15 08:50 Dose: 100 mg Fluocinonide (Lidex 0.05% Oint) 1 applic TOP BID [facility] Last Admin: 12/23/15 08:50 Dose: 1 applic Lidocaine (Lidoderm) 1 ea TD DAILY [facility] Last Admin: 12/23/15 08:50 Dose: 1 ea Midodrine (Proamatine) 10 mg PO TID [facility] Last Admin: 12/23/15 12:22 Dose: 10 mg Tamsulosin HCl (Flomax) 0.4 mg PO DAILY [facility] Last Admin: 12/23/15 08:50 Dose: 0.4 mg - Labs Labs: 12/03/15 06:30 12/03/15 06:30 - Constitutional Appears: Confused, Chronically Ill - Head Exam Head Exam: NORMOCEPHALIC - Eye Exam Eye Exam: EOMI, PERRL - ENT Exam ENT Exam: Mucous Membranes Moist, Normal Exam - Neck Exam Neck Exam: Normal Inspection - Respiratory Exam Respiratory Exam: Clear to Ausculation Bilateral, NORMAL BREATHING PATTERN. absent: Wheezes, Respiratory Distress - Cardiovascular Exam Cardiovascular Exam: REGULAR RHYTHM, +S1, +S2. absent: JVD - GI/Abdominal Exam GI & Abdominal Exam: Soft, Normal Bowel Sounds. absent: Tenderness, Rebound - Rectal Exam Rectal Exam: Deferred - Extremities Exam Extremities Exam: absent: Calf Tenderness, Pedal Edema Additional comments: right humerus dislocated superiorly pulses intact - Neurological Exam Neurological Exam: Alert, Awake Additional comments: confuesd with resting tremors and axial rigidity - Psychiatric Exam Psychiatric exam: Agitated, Anxious, Depressed - Skin Skin Exam: Dry, Pallor, Warm Assessment and Plan (1) Fall Status: Acute (2) Parkinson disease Status: Chronic (3) Thrombocytopenia Status: Chronic (4) Depression Status: Chronic (5) Hypotension Status: Chronic (6) DVT prophylaxis Status: Acute - Assessment and Plan (Free Text) Assessment: 85 y/o male with PMH Parkinsons disease, Shy Receptionist/Telephone Operator Syndrome admitted to hospital initially for Zoster infection and s/p fall at home 07/11/15. He has been in the hospital ever since awaiting placement to [place]. Patient is unable to take care of himself due to advanced Parkinsonism. During this admission treated for Zoster infection , UTI , Pneumonia, RLE cellulitis. Patient is almost bedbound , needs maximum assistance for everything , eating , dressing , sitting up and , transfer. Very unsteady gait with fear of falling. 1. Parkinsons Disease -on carbidopa and rytary continue PT 2. 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 Normocytic anemia -stable. Monitor 4. Thrombocytopenia- stable 5. Resolved infections- treated with antibiotics UTI , resolved Pneumonia-resolved RLE cellulitis-resolved Zoster -resolved Sacral Decubitus ulcers-wound care on board , healing 6.Bilateral shoulder pain sec to OA - lidoderm patch and pain management 7. Dislocated right sholder -recommend ortho eval Awaiting Placement for [facility] Code status: Full code Competent as per psychiatry Surrogate decision maker mukul Vaughan
[2015-12-24] MEDS: CARBIDOPA PO SCH ×3 (05:21→21:02)
[2015-12-24] MEDS: LEVODOPA PO SCH ×3 (05:21→21:02)
[2015-12-24] MEDS: Lidocaine 5% Patch TD SCH (09:12)
[2015-12-24] MEDS: Bethanechol 50 MG TAB PO SCH ×3 (09:13→17:34)
--- NOTE | 2015-12-24 13:37 | CP.PCM.PN ---
Subjective - Date & Time of Evaluation Date of Evaluation: 12/24/15 Time of Evaluation: 11:30 - Subjective Subjective: Pt seen and examined. When asked how was he doing, he claimed he felt terrible being unable to ambulate. Objective - Vital Signs/Intake and Output Vital Signs (last 24 hours): Temp Pulse Resp BP Pulse Ox 97.8 F 78 20 100/55 L 94 L 12/24/15 07:44 12/24/15 07:44 12/24/15 07:44 12/24/15 07:44 12/24/15 07:44 - Medications Medications: Current Medications Acetaminophen (Tylenol 325mg Tab) 650 mg PO Q6 PRN PRN Reason: Pain, moderate (4-7) Last Admin: 12/24/15 09:36 Dose: 650 mg Bethanechol Chloride (Urecholine) 50 mg PO TID [facility] Last Admin: 12/24/15 12:59 Dose: 50 mg Carbidopa/Levodopa (Rytary Er 48.75 Mg-195 Mg Cap) 1 cap PO TID@0500,1300,2100 [facility] Last Admin: 12/24/15 13:00 Dose: 1 cap Docusate Sodium (Colace Liquid) 100 mg PO BID [facility] Last Admin: 12/24/15 09:14 Dose: 100 mg Fluocinonide (Lidex 0.05% Oint) 1 applic TOP BID [facility] Last Admin: 12/24/15 09:15 Dose: 1 applic Lidocaine (Lidoderm) 1 ea TD DAILY [facility] Last Admin: 12/24/15 09:12 Dose: 1 ea Midodrine (Proamatine) 10 mg PO TID [facility] Last Admin: 12/24/15 12:59 Dose: 10 mg - Labs Labs: 12/03/15 06:30 12/03/15 06:30 - Constitutional Appears: No Acute Distress - Head Exam Head Exam: ATRAUMATIC - Eye Exam Eye Exam: absent: Conjunctival injection, Scleral icterus - ENT Exam ENT Exam: Mucous Membranes Moist - Neck Exam Neck Exam: absent: Meningismus, Tenderness - Respiratory Exam Respiratory Exam: absent: Rhonchi, Wheezes, Respiratory Distress - Cardiovascular Exam Cardiovascular Exam: REGULAR RHYTHM, +S1, +S2 - GI/Abdominal Exam GI & Abdominal Exam: Soft. absent: Tenderness - Rectal Exam Rectal Exam: Deferred - Extremities Exam Extremities Exam: absent: Pedal Edema, Tenderness - Neurological Exam Neurological Exam: Alert, Awake - Psychiatric Exam Psychiatric exam: Agitated, Depressed - Skin Skin Exam: Dry, Intact Assessment and Plan (1) Fall Status: Acute (2) Parkinson disease Status: Chronic (3) Thrombocytopenia Status: Chronic (4) Hypotension Status: Chronic (5) Depression Status: Chronic (6) DVT prophylaxis Status: Acute - Assessment and Plan (Free Text) Assessment: 85 yo male wit history of Parkinsons disease and Shy Clamshell Operator Syndrome admitted initially for Zoster infection and fall at home 07/11/15. He has been in the hospital ever since awaiting for placement to [place]. Patient is unable to take care of himself due to advanced Parkinsonism. He was treated for Zoster infection , UTI , Pneumonia and RLE cellulitis during this current admission. Patient has been bed bound and needs maximum assistance for everything. He has very unsteady gait and fear from falling. 1. Parkinsons Disease on carbidopa continue PT 2. 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 Normocytic anemia stable 4. Thrombocytopenia stable 5. Resolved infections- treated with antibiotics UTI - resolved Pneumonia - resolved RLE cellulitis - resolved Zoster - resolved Sacral Decubitus ulcers - wound care on board , healing 6.Bilateral shoulder pain sec to OA continue Lidoderm patch and pain management 7. Dislocated right shoulder recommend ortho eval
[2015-12-25] MEDS: CARBIDOPA PO SCH ×3 (05:10→20:59)
[2015-12-25] MEDS: LEVODOPA PO SCH ×3 (05:10→20:59)
[2015-12-25] MEDS: Lidocaine 5% Patch TD SCH (08:22)
[2015-12-25] MEDS: Bethanechol 50 MG TAB PO SCH ×3 (08:23→16:09)
--- NOTE | 2015-12-25 09:02 | CP.PCM.PN ---
Subjective - Date & Time of Evaluation Date of Evaluation: 12/25/15 Time of Evaluation: 22:22 - Subjective Subjective: Doing well Objective - Vital Signs/Intake and Output Vital Signs (last 24 hours): Temp Pulse Resp BP Pulse Ox 97.2 F L 76 18 136/75 99 12/25/15 08:53 12/25/15 08:53 12/25/15 08:53 12/25/15 08:53 12/25/15 08:53 - Medications Medications: Current Medications Acetaminophen (Tylenol 325mg Tab) 650 mg PO Q6 PRN PRN Reason: Pain, moderate (4-7) Last Admin: 12/24/15 09:36 Dose: 650 mg Bethanechol Chloride (Urecholine) 50 mg PO TID [facility] Last Admin: 12/25/15 08:23 Dose: 50 mg Carbidopa/Levodopa (Rytary Er 48.75 Mg-195 Mg Cap) 1 cap PO TID@0500,1300,2100 [facility] Last Admin: 12/25/15 05:10 Dose: 1 cap Docusate Sodium (Colace Liquid) 100 mg PO BID [facility] Last Admin: 12/25/15 08:22 Dose: 100 mg Fluocinonide (Lidex 0.05% Oint) 1 applic TOP BID [facility] Last Admin: 12/25/15 08:22 Dose: 1 applic Lidocaine (Lidoderm) 1 ea TD DAILY [facility] Last Admin: 12/25/15 08:22 Dose: 1 ea Midodrine (Proamatine) 10 mg PO TID [facility] Last Admin: 12/25/15 08:23 Dose: 10 mg Quetiapine Fumarate (Seroquel) 50 mg PO HS PRN PRN Reason: Agitation - Labs Labs: 12/03/15 06:30 12/03/15 06:30 - Respiratory Exam Respiratory Exam: NORMAL BREATHING PATTERN - Cardiovascular Exam Cardiovascular Exam: REGULAR RHYTHM - GI/Abdominal Exam GI & Abdominal Exam: Normal Bowel Sounds Assessment and Plan - Assessment and Plan (Free Text) Assessment: Disposition?? 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 ID consult appreciated
[2015-12-26] MEDS: CARBIDOPA PO SCH ×3 (05:27→20:58)
[2015-12-26] MEDS: LEVODOPA PO SCH ×3 (05:27→20:58)
[2015-12-26] MEDS: Lidocaine 5% Patch TD SCH (08:40)
[2015-12-26] MEDS: Bethanechol 50 MG TAB PO SCH ×3 (08:41→16:13)
--- NOTE | 2015-12-26 21:16 | CP.PCM.PN ---
Subjective - Date & Time of Evaluation Date of Evaluation: 12/26/15 Time of Evaluation: 22:22 - Subjective Subjective: No change in status Objective - Vital Signs/Intake and Output Vital Signs (last 24 hours): Temp Pulse Resp BP Pulse Ox 97.3 F L 88 20 124/73 100 12/26/15 16:35 12/26/15 16:35 12/26/15 16:35 12/26/15 16:35 12/26/15 16:35 - Medications Medications: Current Medications Acetaminophen (Tylenol 325mg Tab) 650 mg PO Q6 PRN PRN Reason: Pain, moderate (4-7) Last Admin: 12/26/15 17:38 Dose: 650 mg Bethanechol Chloride (Urecholine) 50 mg PO TID [facility] Last Admin: 12/26/15 16:13 Dose: 50 mg Carbidopa/Levodopa (Rytary Er 48.75 Mg-195 Mg Cap) 1 cap PO TID@0500,1300,2100 [facility] Last Admin: 12/26/15 20:58 Dose: 1 cap Docusate Sodium (Colace Liquid) 100 mg PO BID [facility] Last Admin: 12/26/15 16:13 Dose: 100 mg Fluocinonide (Lidex 0.05% Oint) 1 applic TOP BID [facility] Last Admin: 12/26/15 16:13 Dose: 1 applic Lidocaine (Lidoderm) 1 ea TD DAILY [facility] Last Admin: 12/26/15 08:40 Dose: 1 ea Midodrine (Proamatine) 10 mg PO TID [facility] Last Admin: 12/26/15 16:13 Dose: 10 mg Quetiapine Fumarate (Seroquel) 50 mg PO HS PRN PRN Reason: Agitation Last Admin: 12/25/15 21:00 Dose: 50 mg - Labs Labs: 12/03/15 06:30 12/03/15 06:30 - Respiratory Exam Respiratory Exam: NORMAL BREATHING PATTERN - Cardiovascular Exam Cardiovascular Exam: REGULAR RHYTHM - GI/Abdominal Exam GI & Abdominal Exam: Normal Bowel Sounds Assessment and Plan - Assessment and Plan (Free Text) Assessment: Disposition?? 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 ID consult appreciated
[2015-12-27] MEDS: LEVODOPA PO SCH ×3 (05:06→21:11)
[2015-12-27] MEDS: CARBIDOPA PO SCH ×3 (05:06→21:11)
[2015-12-27] MEDS: Lidocaine 5% Patch TD SCH (08:24)
[2015-12-27] MEDS: Bethanechol 50 MG TAB PO SCH ×3 (08:26→16:03)
--- NOTE | 2015-12-27 21:37 | CP.PCM.PN ---
Subjective - Date & Time of Evaluation Date of Evaluation: 12/27/15 Time of Evaluation: 22:22 - Subjective Subjective: Sleeping Objective - Vital Signs/Intake and Output Vital Signs (last 24 hours): Temp Pulse Resp BP Pulse Ox 98.2 F 80 20 127/80 99 12/27/15 16:36 12/27/15 16:36 12/27/15 16:36 12/27/15 16:36 12/27/15 16:36 - Medications Medications: Current Medications Acetaminophen (Tylenol 325mg Tab) 650 mg PO Q6 PRN PRN Reason: Pain, moderate (4-7) Last Admin: 12/26/15 17:38 Dose: 650 mg Bethanechol Chloride (Urecholine) 50 mg PO TID [facility] Last Admin: 12/27/15 16:03 Dose: 50 mg Carbidopa/Levodopa (Rytary Er 48.75 Mg-195 Mg Cap) 1 cap PO TID@0500,1300,2100 [facility] Last Admin: 12/27/15 21:11 Dose: 1 cap Docusate Sodium (Colace Liquid) 100 mg PO BID [facility] Last Admin: 12/27/15 16:03 Dose: 100 mg Fluocinonide (Lidex 0.05% Oint) 1 applic TOP BID [facility] Last Admin: 12/27/15 16:03 Dose: 1 applic Lidocaine (Lidoderm) 1 ea TD DAILY [facility] Last Admin: 12/27/15 08:24 Dose: 1 ea Midodrine (Proamatine) 10 mg PO TID [facility] Last Admin: 12/27/15 16:02 Dose: 10 mg Quetiapine Fumarate (Seroquel) 50 mg PO HS PRN PRN Reason: Agitation Last Admin: 12/27/15 21:12 Dose: 50 mg - Labs Labs: 12/03/15 06:30 12/03/15 06:30 - Respiratory Exam Respiratory Exam: NORMAL BREATHING PATTERN - Cardiovascular Exam Cardiovascular Exam: REGULAR RHYTHM - GI/Abdominal Exam GI & Abdominal Exam: Normal Bowel Sounds Assessment and Plan - Assessment and Plan (Free Text) Assessment: Disposition?? 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 ID consult appreciated
[2015-12-28] MEDS: LEVODOPA PO SCH ×3 (05:12→20:32)
[2015-12-28] MEDS: CARBIDOPA PO SCH ×3 (05:12→20:32)
[2015-12-28] MEDS: Lidocaine 5% Patch TD SCH (08:33)
[2015-12-28] MEDS: Bethanechol 50 MG TAB PO SCH ×3 (08:35→16:09)
--- NOTE | 2015-12-28 11:20 | CP.PCM.PN ---
Subjective - Date & Time of Evaluation Date of Evaluation: 12/28/15 Time of Evaluation: 22:22 - Subjective Subjective: Sitting in chair Alert and responsive Objective - Vital Signs/Intake and Output Vital Signs (last 24 hours): Temp Pulse Resp BP Pulse Ox 97.3 F L 64 20 136/75 98 12/28/15 07:34 12/28/15 07:34 12/28/15 07:34 12/28/15 07:34 12/28/15 07:34 - Medications Medications: Current Medications Acetaminophen (Tylenol 325mg Tab) 650 mg PO Q6 PRN PRN Reason: Pain, moderate (4-7) Last Admin: 12/26/15 17:38 Dose: 650 mg Bethanechol Chloride (Urecholine) 50 mg PO TID [facility] Last Admin: 12/28/15 08:35 Dose: 50 mg Carbidopa/Levodopa (Rytary Er 48.75 Mg-195 Mg Cap) 1 cap PO TID@0500,1300,2100 [facility] Last Admin: 12/28/15 05:12 Dose: 1 cap Docusate Sodium (Colace Liquid) 100 mg PO BID [facility] Last Admin: 12/28/15 08:34 Dose: 100 mg Fluocinonide (Lidex 0.05% Oint) 1 applic TOP BID [facility] Last Admin: 12/28/15 08:34 Dose: 1 applic Lidocaine (Lidoderm) 1 ea TD DAILY [facility] Last Admin: 12/28/15 08:33 Dose: 1 ea Midodrine (Proamatine) 10 mg PO TID [facility] Last Admin: 12/28/15 08:34 Dose: 10 mg Quetiapine Fumarate (Seroquel) 50 mg PO HS PRN PRN Reason: Agitation Last Admin: 12/27/15 21:12 Dose: 50 mg - Labs Labs: 12/03/15 06:30 12/03/15 06:30 - Respiratory Exam Respiratory Exam: NORMAL BREATHING PATTERN - Cardiovascular Exam Cardiovascular Exam: REGULAR RHYTHM - GI/Abdominal Exam GI & Abdominal Exam: Normal Bowel Sounds Assessment and Plan - Assessment and Plan (Free Text) Assessment: Disposition?? 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 ID consult appreciated
[2015-12-29] MEDS: CARBIDOPA PO SCH ×3 (04:56→21:27)
[2015-12-29] MEDS: LEVODOPA PO SCH ×3 (04:56→21:27)
[2015-12-29] MEDS: Bethanechol 50 MG TAB PO SCH ×3 (08:16→16:04)
[2015-12-29] MEDS: Lidocaine 5% Patch TD SCH (08:16)
[2015-12-30] MEDS: LEVODOPA PO SCH ×3 (06:17→21:54)
[2015-12-30] MEDS: CARBIDOPA PO SCH ×3 (06:17→21:54)
[2015-12-30] MEDS: Bethanechol 50 MG TAB PO SCH ×3 (09:08→16:03)
[2015-12-30] MEDS: Lidocaine 5% Patch TD SCH (09:08)
[2015-12-31] MEDS: CARBIDOPA PO SCH ×3 (05:18→21:37)
[2015-12-31] MEDS: LEVODOPA PO SCH ×3 (05:18→21:37)
[2015-12-31] MEDS: Lidocaine 5% Patch TD SCH (08:23)
[2015-12-31] MEDS: Bethanechol 50 MG TAB PO SCH ×3 (08:24→16:00)
[2016-01-01] MEDS: CARBIDOPA PO SCH ×3 (05:21→21:54)
[2016-01-01] MEDS: LEVODOPA PO SCH ×3 (05:21→21:54)
[2016-01-01] MEDS: Bethanechol 50 MG TAB PO SCH ×3 (08:45→16:48)
[2016-01-01] MEDS: Lidocaine 5% Patch TD SCH (08:46)
[2016-01-02] MEDS: CARBIDOPA PO SCH ×3 (04:39→20:44)
[2016-01-02] MEDS: LEVODOPA PO SCH ×3 (04:39→20:44)
[2016-01-02] MEDS: Lidocaine 5% Patch TD SCH (08:24)
[2016-01-02] MEDS: Bethanechol 50 MG TAB PO SCH ×3 (08:24→16:08)
--- NOTE | 2016-01-02 20:35 | CP.PCM.PN ---
Subjective - Date & Time of Evaluation Date of Evaluation: 01/02/16 Time of Evaluation: 22:22 - Subjective Subjective: No change Objective - Vital Signs/Intake and Output Vital Signs (last 24 hours): Temp Pulse Resp BP Pulse Ox 96.9 F L 92 H 20 136/70 98 01/02/16 17:00 01/02/16 16:26 01/02/16 16:26 01/02/16 16:26 01/02/16 16:26 - Medications Medications: Current Medications Acetaminophen (Tylenol 325mg Tab) 650 mg PO Q6 PRN PRN Reason: Pain, moderate (4-7) Last Admin: 01/01/16 17:49 Dose: 650 mg Bethanechol Chloride (Urecholine) 50 mg PO TID [facility] Last Admin: 01/02/16 16:08 Dose: 50 mg Carbidopa/Levodopa (Rytary Er 48.75 Mg-195 Mg Cap) 1 cap PO TID@0500,1300,2100 [facility] Last Admin: 01/02/16 12:34 Dose: 1 cap Docusate Sodium (Colace Liquid) 100 mg PO BID [facility] Last Admin: 01/02/16 16:09 Dose: 100 mg Fluocinonide (Lidex 0.05% Oint) 1 applic TOP BID [facility] Last Admin: 01/02/16 16:08 Dose: 1 applic Lidocaine (Lidoderm) 1 ea TD DAILY [facility] Last Admin: 01/02/16 08:24 Dose: 1 ea Midodrine (Proamatine) 10 mg PO TID [facility] Last Admin: 01/02/16 16:08 Dose: 10 mg Quetiapine Fumarate (Seroquel) 50 mg PO HS PRN PRN Reason: Agitation Last Admin: 12/29/15 21:27 Dose: 50 mg - Labs Labs: 12/03/15 06:30 12/03/15 06:30 - Respiratory Exam Respiratory Exam: NORMAL BREATHING PATTERN - Cardiovascular Exam Cardiovascular Exam: REGULAR RHYTHM - GI/Abdominal Exam GI & Abdominal Exam: Normal Bowel Sounds Assessment and Plan - Assessment and Plan (Free Text) Assessment: Disposition?? 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 ID consult appreciated
[2016-01-03] MEDS: CARBIDOPA PO SCH ×3 (04:43→21:14)
[2016-01-03] MEDS: LEVODOPA PO SCH ×3 (04:43→21:14)
[2016-01-03] MEDS: Lidocaine 5% Patch TD SCH (08:25)
[2016-01-03] MEDS: Bethanechol 50 MG TAB PO SCH ×3 (08:26→16:44)
--- NOTE | 2016-01-03 08:40 | CP.PCM.PN ---
Subjective - Date & Time of Evaluation Date of Evaluation: 12/30/15 Time of Evaluation: 10:00 - Subjective Subjective: Patient remains stable Has no chest pain or SOB Confused a lot. Has no fever. Objective - Vital Signs/Intake and Output Vital Signs (last 24 hours): Temp Pulse Resp BP Pulse Ox 97.1 F L 86 20 164/75 H 95 01/03/16 08:02 01/03/16 08:02 01/03/16 08:02 01/03/16 08:02 01/03/16 08:02 - Medications Medications: Current Medications Acetaminophen (Tylenol 325mg Tab) 650 mg PO Q6 PRN PRN Reason: Pain, moderate (4-7) Last Admin: 01/01/16 17:49 Dose: 650 mg Bethanechol Chloride (Urecholine) 50 mg PO TID [facility] Last Admin: 01/03/16 08:26 Dose: 50 mg Carbidopa/Levodopa (Rytary Er 48.75 Mg-195 Mg Cap) 1 cap PO TID@0500,1300,2100 [facility] Last Admin: 01/03/16 04:43 Dose: 1 cap Docusate Sodium (Colace Liquid) 100 mg PO BID [facility] Last Admin: 01/03/16 08:24 Dose: 100 mg Fluocinonide (Lidex 0.05% Oint) 1 applic TOP BID [facility] Last Admin: 01/03/16 08:24 Dose: 1 applic Lidocaine (Lidoderm) 1 ea TD DAILY [facility] Last Admin: 01/03/16 08:25 Dose: 1 ea Midodrine (Proamatine) 10 mg PO TID [facility] Last Admin: 01/03/16 08:26 Dose: 10 mg Quetiapine Fumarate (Seroquel) 50 mg PO HS PRN PRN Reason: Agitation Last Admin: 12/29/15 21:27 Dose: 50 mg - Labs Labs: 12/03/15 06:30 12/03/15 06:30 - Head Exam Head Exam: NORMAL INSPECTION - Eye Exam Eye Exam: Normal appearance - Respiratory Exam Respiratory Exam: Clear to Ausculation Bilateral - Cardiovascular Exam Cardiovascular Exam: REGULAR RHYTHM - GI/Abdominal Exam GI & Abdominal Exam: Normal Bowel Sounds Assessment and Plan (1) Generalized muscle weakness Status: Acute (2) Parkinsonism Status: Acute (3) Physical debility Status: Acute - Assessment and Plan (Free Text) Plan: cont meds cont tx 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
--- NOTE | 2016-01-03 08:43 | CP.PCM.PN ---
Subjective - Date & Time of Evaluation Date of Evaluation: 01/01/16 Time of Evaluation: 08:41 - Subjective Subjective: Patient remains stable Awaiting for placement. Has no chest pain or SOB Gets confused at times Has no fever No chest pain or SOB. Objective - Vital Signs/Intake and Output Vital Signs (last 24 hours): Temp Pulse Resp BP Pulse Ox 97.1 F L 86 20 164/75 H 95 01/03/16 08:02 01/03/16 08:02 01/03/16 08:02 01/03/16 08:02 01/03/16 08:02 - Medications Medications: Current Medications Acetaminophen (Tylenol 325mg Tab) 650 mg PO Q6 PRN PRN Reason: Pain, moderate (4-7) Last Admin: 01/01/16 17:49 Dose: 650 mg Bethanechol Chloride (Urecholine) 50 mg PO TID [facility] Last Admin: 01/03/16 08:26 Dose: 50 mg Carbidopa/Levodopa (Rytary Er 48.75 Mg-195 Mg Cap) 1 cap PO TID@0500,1300,2100 [facility] Last Admin: 01/03/16 04:43 Dose: 1 cap Docusate Sodium (Colace Liquid) 100 mg PO BID [facility] Last Admin: 01/03/16 08:24 Dose: 100 mg Fluocinonide (Lidex 0.05% Oint) 1 applic TOP BID [facility] Last Admin: 01/03/16 08:24 Dose: 1 applic Lidocaine (Lidoderm) 1 ea TD DAILY [facility] Last Admin: 01/03/16 08:25 Dose: 1 ea Midodrine (Proamatine) 10 mg PO TID [facility] Last Admin: 01/03/16 08:26 Dose: 10 mg Quetiapine Fumarate (Seroquel) 50 mg PO HS PRN PRN Reason: Agitation Last Admin: 12/29/15 21:27 Dose: 50 mg - Labs Labs: 12/03/15 06:30 12/03/15 06:30 - Head Exam Head Exam: NORMAL INSPECTION - Eye Exam Eye Exam: Normal appearance - ENT Exam ENT Exam: Mucous Membranes Moist - Respiratory Exam Respiratory Exam: Clear to Ausculation Bilateral - Cardiovascular Exam Cardiovascular Exam: Irregular Rhythm - GI/Abdominal Exam GI & Abdominal Exam: Normal Bowel Sounds - Neurological Exam Neurological Exam: Altered, CN II-XII Intact Assessment and Plan (1) Generalized muscle weakness Status: Acute (2) Parkinsonism Status: Acute (3) Physical debility Status: Acute (4) Atrial fibrillation Status: Resolved - Assessment and Plan (Free Text) Plan: Con tmeds Cont tx subacute rehab eval
--- NOTE | 2016-01-03 19:26 | CP.PCM.PN ---
Subjective - Date & Time of Evaluation Date of Evaluation: 01/03/16 Time of Evaluation: 22:22 - Subjective Subjective: Resting Objective - Vital Signs/Intake and Output Vital Signs (last 24 hours): Temp Pulse Resp BP Pulse Ox 97.6 F 66 20 159/97 H 98 01/03/16 16:33 01/03/16 16:33 01/03/16 16:33 01/03/16 16:33 01/03/16 16:33 - Medications Medications: Current Medications Acetaminophen (Tylenol 325mg Tab) 650 mg PO Q6 PRN PRN Reason: Pain, moderate (4-7) Last Admin: 01/03/16 11:24 Dose: 650 mg Bethanechol Chloride (Urecholine) 50 mg PO TID [facility] Last Admin: 01/03/16 16:44 Dose: 50 mg Carbidopa/Levodopa (Rytary Er 48.75 Mg-195 Mg Cap) 1 cap PO TID@0500,1300,2100 [facility] Last Admin: 01/03/16 12:00 Dose: 1 cap Docusate Sodium (Colace Liquid) 100 mg PO BID [facility] Last Admin: 01/03/16 16:43 Dose: 100 mg Fluocinonide (Lidex 0.05% Oint) 1 applic TOP BID [facility] Last Admin: 01/03/16 16:43 Dose: 1 applic Lidocaine (Lidoderm) 1 ea TD DAILY [facility] Last Admin: 01/03/16 08:25 Dose: 1 ea Midodrine (Proamatine) 10 mg PO TID [facility] Last Admin: 01/03/16 16:43 Dose: 10 mg Quetiapine Fumarate (Seroquel) 50 mg PO HS PRN PRN Reason: Agitation Last Admin: 12/29/15 21:27 Dose: 50 mg - Labs Labs: 12/03/15 06:30 12/03/15 06:30 - Respiratory Exam Respiratory Exam: NORMAL BREATHING PATTERN - Cardiovascular Exam Cardiovascular Exam: REGULAR RHYTHM - GI/Abdominal Exam GI & Abdominal Exam: Normal Bowel Sounds Assessment and Plan - Assessment and Plan (Free Text) Assessment: Disposition?? 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 ID consult appreciated
[2016-01-04] MEDS: CARBIDOPA PO SCH ×3 (05:59→22:01)
[2016-01-04] MEDS: LEVODOPA PO SCH ×3 (05:59→22:01)
[2016-01-04] MEDS: Lidocaine 5% Patch TD SCH (08:49)
[2016-01-04] MEDS: Bethanechol 50 MG TAB PO SCH ×3 (08:49→16:25)
--- NOTE | 2016-01-04 21:57 | CP.PCM.PN ---
Subjective - Date & Time of Evaluation Date of Evaluation: 01/04/16 Time of Evaluation: 22:22 - Subjective Subjective: More alert Objective - Vital Signs/Intake and Output Vital Signs (last 24 hours): Temp Pulse Resp BP Pulse Ox 97.7 F 67 20 148/71 100 01/04/16 17:00 01/04/16 16:19 01/04/16 16:19 01/04/16 16:19 01/04/16 16:19 - Medications Medications: Current Medications Acetaminophen (Tylenol 325mg Tab) 650 mg PO Q6 PRN PRN Reason: Pain, moderate (4-7) Last Admin: 01/03/16 11:24 Dose: 650 mg Bethanechol Chloride (Urecholine) 50 mg PO TID [facility] Last Admin: 01/04/16 16:25 Dose: 50 mg Carbidopa/Levodopa (Rytary Er 48.75 Mg-195 Mg Cap) 1 cap PO TID@0500,1300,2100 [facility] Last Admin: 01/04/16 12:50 Dose: 1 cap Docusate Sodium (Colace Liquid) 100 mg PO BID [facility] Last Admin: 01/04/16 16:25 Dose: 100 mg Fluocinonide (Lidex 0.05% Oint) 1 applic TOP BID [facility] Last Admin: 01/04/16 16:31 Dose: 1 applic Lidocaine (Lidoderm) 1 ea TD DAILY [facility] Last Admin: 01/04/16 08:49 Dose: 1 ea Midodrine (Proamatine) 10 mg PO TID [facility] Last Admin: 01/04/16 16:24 Dose: 10 mg Quetiapine Fumarate (Seroquel) 50 mg PO HS PRN PRN Reason: Agitation Last Admin: 12/29/15 21:27 Dose: 50 mg - Labs Labs: 12/03/15 06:30 12/03/15 06:30 - Respiratory Exam Respiratory Exam: NORMAL BREATHING PATTERN - Cardiovascular Exam Cardiovascular Exam: REGULAR RHYTHM - GI/Abdominal Exam GI & Abdominal Exam: Normal Bowel Sounds Assessment and Plan - Assessment and Plan (Free Text) Assessment: Disposition?? 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 ID consult appreciated
[2016-01-05] MEDS: CARBIDOPA PO SCH ×3 (05:51→20:57)
[2016-01-05] MEDS: LEVODOPA PO SCH ×3 (05:51→20:57)
[2016-01-05] MEDS: Bethanechol 50 MG TAB PO SCH ×3 (08:45→16:36)
[2016-01-05] MEDS: Lidocaine 5% Patch TD SCH (08:46)
--- NOTE | 2016-01-05 20:13 | CP.PCM.PN ---
Subjective - Date & Time of Evaluation Date of Evaluation: 01/05/16 Time of Evaluation: 22:22 - Subjective Subjective: Doing well Objective - Vital Signs/Intake and Output Vital Signs (last 24 hours): Temp Pulse Resp BP Pulse Ox 97.9 F 88 20 126/75 98 01/05/16 16:33 01/05/16 16:33 01/05/16 16:33 01/05/16 07:53 01/05/16 16:33 - Medications Medications: Current Medications Acetaminophen (Tylenol 325mg Tab) 650 mg PO Q6 PRN PRN Reason: Pain, moderate (4-7) Last Admin: 01/03/16 11:24 Dose: 650 mg Bethanechol Chloride (Urecholine) 50 mg PO TID [facility] Last Admin: 01/05/16 16:36 Dose: 50 mg Carbidopa/Levodopa (Rytary Er 48.75 Mg-195 Mg Cap) 1 cap PO TID@0500,1300,2100 [facility] Last Admin: 01/05/16 13:51 Dose: 1 cap Docusate Sodium (Colace Liquid) 100 mg PO BID [facility] Last Admin: 01/05/16 16:35 Dose: Not Given Fluocinonide (Lidex 0.05% Oint) 1 applic TOP BID [facility] Last Admin: 01/05/16 16:35 Dose: 1 applic Lidocaine (Lidoderm) 1 ea TD DAILY [facility] Last Admin: 01/05/16 08:46 Dose: 1 ea Midodrine (Proamatine) 10 mg PO TID [facility] Last Admin: 01/05/16 16:35 Dose: 10 mg Quetiapine Fumarate (Seroquel) 50 mg PO HS PRN PRN Reason: Agitation Last Admin: 01/04/16 22:02 Dose: 50 mg - Labs Labs: 12/03/15 06:30 12/03/15 06:30 - Respiratory Exam Respiratory Exam: NORMAL BREATHING PATTERN - Cardiovascular Exam Cardiovascular Exam: REGULAR RHYTHM - GI/Abdominal Exam GI & Abdominal Exam: Normal Bowel Sounds Assessment and Plan - Assessment and Plan (Free Text) Assessment: Disposition?? 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 ID consult appreciated
[2016-01-06] MEDS: LEVODOPA PO SCH ×3 (05:43→20:32)
[2016-01-06] MEDS: CARBIDOPA PO SCH ×3 (05:43→20:32)
--- NOTE | 2016-01-06 09:48 | CP.PCM.PN ---
Subjective - Date & Time of Evaluation Date of Evaluation: 01/06/16 Time of Evaluation: 11:00 - Subjective Subjective: Patient seen and examined bedside. Sitting in bed comfortably. Hemodynamicallty stable, afebrile. States feeling lousy. Confused at times. No acute issues overnight Waiting for placement Objective - Vital Signs/Intake and Output Vital Signs (last 24 hours): Temp Pulse Resp BP Pulse Ox 98 F 70 20 102/54 L 99 01/06/16 08:30 01/06/16 08:30 01/06/16 08:30 01/06/16 08:30 01/06/16 08:30 - Medications Medications: Current Medications Acetaminophen (Tylenol 325mg Tab) 650 mg PO Q6 PRN PRN Reason: Pain, moderate (4-7) Last Admin: 01/03/16 11:24 Dose: 650 mg Bethanechol Chloride (Urecholine) 50 mg PO TID [facility] Last Admin: 01/05/16 16:36 Dose: 50 mg Carbidopa/Levodopa (Rytary Er 48.75 Mg-195 Mg Cap) 1 cap PO TID@0500,1300,2100 [facility] Last Admin: 01/06/16 05:43 Dose: 1 cap Docusate Sodium (Colace Liquid) 100 mg PO BID [facility] Last Admin: 01/05/16 16:35 Dose: Not Given Fluocinonide (Lidex 0.05% Oint) 1 applic TOP BID [facility] Last Admin: 01/05/16 16:35 Dose: 1 applic Lidocaine (Lidoderm) 1 ea TD DAILY [facility] Last Admin: 01/05/16 08:46 Dose: 1 ea Midodrine (Proamatine) 10 mg PO TID [facility] Last Admin: 01/05/16 16:35 Dose: 10 mg Quetiapine Fumarate (Seroquel) 50 mg PO HS PRN PRN Reason: Agitation Last Admin: 01/05/16 23:51 Dose: 50 mg - Labs Labs: 12/03/15 06:30 12/03/15 06:30 - Constitutional Appears: Non-toxic, No Acute Distress, Confused, Chronically Ill - Head Exam Head Exam: NORMOCEPHALIC - Eye Exam Eye Exam: EOMI, PERRL - ENT Exam ENT Exam: Normal Exam - Neck Exam Neck Exam: Normal Inspection - Respiratory Exam Respiratory Exam: Clear to Ausculation Bilateral, NORMAL BREATHING PATTERN. absent: Wheezes, Respiratory Distress - Cardiovascular Exam Cardiovascular Exam: REGULAR RHYTHM. absent: JVD - GI/Abdominal Exam GI & Abdominal Exam: Soft, Normal Bowel Sounds - Rectal Exam Rectal Exam: Deferred - Extremities Exam Extremities Exam: Normal Inspection. absent: Pedal Edema - Neurological Exam Neurological Exam: Alert, Awake Additional comments: flat affect, hand tremors axial rigidity confused - Psychiatric Exam Psychiatric exam: Anxious, Depressed, Flat Affect - Skin Skin Exam: Dry, Pallor, Warm Additional comments: decubitus ulcer Assessment and Plan (1) Fall Status: Acute (2) Parkinson disease Status: Chronic (3) Thrombocytopenia Status: Chronic (4) Depression Status: Chronic (5) Hypotension Status: Chronic (6) DVT prophylaxis Status: Acute - Assessment and Plan (Free Text) Assessment: 85 y/o male with PMH Parkinsons disease, Shy Federal Mediator Syndrome admitted to hospital initially for Zoster infection and s/p fall at home 07/11/15. He has been in the hospital ever since awaiting placement to [place]. Patient is unable to take care of himself due to advanced Parkinsonism. During this admission treated for Zoster infection , UTI , Pneumonia, RLE cellulitis. Patient is almost bedbound , needs maximum assistance for everything , eating , dressing , sitting up and , transfer. Very unsteady gait with fear of falling. 1. 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 Normocytic anemia -stable. Monitor 4. Thrombocytopenia- stable 5. Resolved infections- treated with antibiotics UTI , resolved Pneumonia-resolved RLE cellulitis-resolved Zoster -resolved Sacral Decubitus ulcers-wound care on board , healing 6.Bilateral shoulder pain sec to OA - lidoderm patch and pain management Awaiting Placement for [facility] Code status: Full code Competent as per psychiatry Surrogate decision maker granddaughter Alexus Surrogate decision maker granddaughter Alexus
[2016-01-06] MEDS: Lidocaine 5% Patch TD SCH (10:02)
[2016-01-06] MEDS: Bethanechol 50 MG TAB PO SCH ×2 (10:02→14:00)
[2016-01-07] MEDS: CARBIDOPA PO SCH ×3 (04:17→20:52)
[2016-01-07] MEDS: LEVODOPA PO SCH ×3 (04:17→20:52)
[2016-01-07] MEDS: Lidocaine 5% Patch TD SCH (08:31)
[2016-01-07] MEDS: Bethanechol 50 MG TAB PO SCH ×3 (08:33→16:19)
--- NOTE | 2016-01-07 13:08 | CP.PCM.PN ---
Subjective - Date & Time of Evaluation Date of Evaluation: 01/07/16 Time of Evaluation: 22:22 - Subjective Subjective: No acute changes Objective - Vital Signs/Intake and Output Vital Signs (last 24 hours): Temp Pulse Resp BP Pulse Ox 96.4 F L 83 20 121/68 95 01/07/16 08:40 01/07/16 08:40 01/07/16 08:40 01/07/16 08:40 01/07/16 08:40 - Medications Medications: Current Medications Acetaminophen (Tylenol 325mg Tab) 650 mg PO Q6 PRN PRN Reason: Pain, moderate (4-7) Last Admin: 01/06/16 12:16 Dose: 650 mg Bethanechol Chloride (Urecholine) 50 mg PO TID [facility] Last Admin: 01/07/16 12:06 Dose: 50 mg Carbidopa/Levodopa (Rytary Er 48.75 Mg-195 Mg Cap) 1 cap PO TID@0500,1300,2100 [facility] Last Admin: 01/07/16 12:06 Dose: 1 cap Docusate Sodium (Colace Liquid) 100 mg PO BID [facility] Last Admin: 01/07/16 08:33 Dose: 100 mg Fluocinonide (Lidex 0.05% Oint) 1 applic TOP BID [facility] Last Admin: 01/07/16 08:33 Dose: 1 applic Lidocaine (Lidoderm) 1 ea TD DAILY [facility] Last Admin: 01/07/16 08:31 Dose: 1 ea Midodrine (Proamatine) 10 mg PO TID [facility] Last Admin: 01/07/16 12:06 Dose: 10 mg Quetiapine Fumarate (Seroquel) 50 mg PO HS PRN PRN Reason: Agitation Last Admin: 01/06/16 22:19 Dose: 50 mg - Labs Labs: 12/03/15 06:30 12/03/15 06:30 - Respiratory Exam Respiratory Exam: NORMAL BREATHING PATTERN - Cardiovascular Exam Cardiovascular Exam: REGULAR RHYTHM - GI/Abdominal Exam GI & Abdominal Exam: Normal Bowel Sounds Assessment and Plan - Assessment and Plan (Free Text) Assessment: Disposition?? 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 ID consult appreciated
[2016-01-08] MEDS: CARBIDOPA PO SCH ×3 (04:34→21:11)
[2016-01-08] MEDS: LEVODOPA PO SCH ×3 (04:34→21:11)
[2016-01-08] MEDS: Bethanechol 50 MG TAB PO SCH ×3 (08:59→16:46)
--- NOTE | 2016-01-08 20:39 | CP.PCM.PN ---
Subjective - Date & Time of Evaluation Date of Evaluation: 01/08/16 Time of Evaluation: 22:22 - Subjective Subjective: Resting Objective - Vital Signs/Intake and Output Vital Signs (last 24 hours): Temp Pulse Resp BP Pulse Ox 97.7 F 86 20 127/56 L 100 01/08/16 16:33 01/08/16 16:33 01/08/16 16:33 01/08/16 16:33 01/08/16 16:33 - Medications Medications: Current Medications Acetaminophen (Tylenol 325mg Tab) 650 mg PO Q6 PRN PRN Reason: Pain, moderate (4-7) Last Admin: 01/06/16 12:16 Dose: 650 mg Bethanechol Chloride (Urecholine) 50 mg PO TID [facility] Last Admin: 01/08/16 16:46 Dose: 50 mg Carbidopa/Levodopa (Rytary Er 48.75 Mg-195 Mg Cap) 1 cap PO TID@0500,1300,2100 [facility] Last Admin: 01/08/16 12:46 Dose: 1 cap Docusate Sodium (Colace Liquid) 100 mg PO BID [facility] Last Admin: 01/08/16 16:45 Dose: 100 mg Fluocinonide (Lidex 0.05% Oint) 1 applic TOP BID [facility] Last Admin: 01/08/16 16:45 Dose: 1 applic Midodrine (Proamatine) 10 mg PO TID [facility] Last Admin: 01/08/16 16:46 Dose: 10 mg Quetiapine Fumarate (Seroquel) 50 mg PO HS PRN PRN Reason: Agitation Last Admin: 01/06/16 22:19 Dose: 50 mg - Labs Labs: 12/03/15 06:30 12/03/15 06:30 - Respiratory Exam Respiratory Exam: NORMAL BREATHING PATTERN - Cardiovascular Exam Cardiovascular Exam: REGULAR RHYTHM - GI/Abdominal Exam GI & Abdominal Exam: Normal Bowel Sounds Assessment and Plan - Assessment and Plan (Free Text) Assessment: Disposition?? 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 ID consult appreciated
[2016-01-09] MEDS: LEVODOPA PO SCH ×3 (05:09→20:30)
[2016-01-09] MEDS: CARBIDOPA PO SCH ×3 (05:09→20:30)
[2016-01-09] MEDS: Bethanechol 50 MG TAB PO SCH ×3 (08:29→17:23)
--- NOTE | 2016-01-09 20:53 | CP.PCM.PN ---
Subjective - Date & Time of Evaluation Date of Evaluation: 01/09/16 Time of Evaluation: 22:22 - Subjective Subjective: Sleeping Objective - Vital Signs/Intake and Output Vital Signs (last 24 hours): Temp Pulse Resp BP Pulse Ox 97.5 F L 73 20 135/83 99 01/09/16 16:56 01/09/16 16:56 01/09/16 16:56 01/09/16 16:56 01/09/16 16:56 - Medications Medications: Current Medications Acetaminophen (Tylenol 325mg Tab) 650 mg PO Q6 PRN PRN Reason: Pain, moderate (4-7) Last Admin: 01/09/16 18:58 Dose: 650 mg Bethanechol Chloride (Urecholine) 50 mg PO TID [facility] Last Admin: 01/09/16 17:23 Dose: 50 mg Carbidopa/Levodopa (Rytary Er 48.75 Mg-195 Mg Cap) 1 cap PO TID@0500,1300,2100 [facility] Last Admin: 01/09/16 20:30 Dose: 1 cap Docusate Sodium (Colace Liquid) 100 mg PO BID [facility] Last Admin: 01/09/16 17:22 Dose: 100 mg Fluocinonide (Lidex 0.05% Oint) 1 applic TOP BID [facility] Last Admin: 01/09/16 17:22 Dose: 1 applic Midodrine (Proamatine) 10 mg PO TID [facility] Last Admin: 01/09/16 17:22 Dose: 10 mg Quetiapine Fumarate (Seroquel) 50 mg PO HS PRN PRN Reason: Agitation Last Admin: 01/06/16 22:19 Dose: 50 mg - Labs Labs: 12/03/15 06:30 12/03/15 06:30 - Respiratory Exam Respiratory Exam: NORMAL BREATHING PATTERN - Cardiovascular Exam Cardiovascular Exam: REGULAR RHYTHM - GI/Abdominal Exam GI & Abdominal Exam: Normal Bowel Sounds Assessment and Plan - Assessment and Plan (Free Text) Assessment: Disposition?? 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 ID consult appreciated
[2016-01-10] MEDS: CARBIDOPA PO SCH ×3 (05:42→21:16)
[2016-01-10] MEDS: LEVODOPA PO SCH ×3 (05:42→21:16)
[2016-01-10] MEDS: Bethanechol 50 MG TAB PO SCH ×3 (09:45→17:42)
--- NOTE | 2016-01-10 18:45 | CP.PCM.PN ---
Subjective - Date & Time of Evaluation Date of Evaluation: 01/10/16 Time of Evaluation: 22:22 - Subjective Subjective: Doing well Objective - Vital Signs/Intake and Output Vital Signs (last 24 hours): Temp Pulse Resp BP Pulse Ox 97.5 F L 94 H 20 154/75 H 99 01/10/16 16:19 01/10/16 16:19 01/10/16 16:19 01/10/16 16:19 01/10/16 16:19 - Medications Medications: Current Medications Acetaminophen (Tylenol 325mg Tab) 650 mg PO Q6 PRN PRN Reason: Pain, moderate (4-7) Last Admin: 01/09/16 18:58 Dose: 650 mg Bethanechol Chloride (Urecholine) 50 mg PO TID [facility] Last Admin: 01/10/16 17:42 Dose: 50 mg Carbidopa/Levodopa (Rytary Er 48.75 Mg-195 Mg Cap) 1 cap PO TID@0500,1300,2100 [facility] Last Admin: 01/10/16 13:02 Dose: 1 cap Docusate Sodium (Colace Liquid) 100 mg PO BID [facility] Last Admin: 01/10/16 17:41 Dose: 100 mg Fluocinonide (Lidex 0.05% Oint) 1 applic TOP BID [facility] Last Admin: 01/10/16 17:41 Dose: 1 applic Midodrine (Proamatine) 10 mg PO TID [facility] Last Admin: 01/10/16 17:42 Dose: 10 mg Quetiapine Fumarate (Seroquel) 50 mg PO HS PRN PRN Reason: Agitation Last Admin: 01/09/16 23:10 Dose: 50 mg - Labs Labs: 12/03/15 06:30 12/03/15 06:30 - Respiratory Exam Respiratory Exam: NORMAL BREATHING PATTERN - Cardiovascular Exam Cardiovascular Exam: REGULAR RHYTHM - GI/Abdominal Exam GI & Abdominal Exam: Normal Bowel Sounds Assessment and Plan - Assessment and Plan (Free Text) Assessment: Disposition?? 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 ID consult appreciated
[2016-01-11] MEDS: CARBIDOPA PO SCH ×3 (04:57→20:41)
[2016-01-11] MEDS: LEVODOPA PO SCH ×3 (04:57→20:41)
[2016-01-11] MEDS: Bethanechol 50 MG TAB PO SCH ×4 (09:33→17:12)
--- NOTE | 2016-01-11 21:13 | CP.PCM.PN ---
Subjective - Date & Time of Evaluation Date of Evaluation: 01/11/16 Time of Evaluation: 22:22 - Subjective Subjective: No change in status Objective - Vital Signs/Intake and Output Vital Signs (last 24 hours): Temp Pulse Resp BP Pulse Ox 98.1 F 77 20 137/79 94 L 01/11/16 07:53 01/11/16 07:53 01/11/16 07:53 01/11/16 07:53 01/11/16 07:53 - Medications Medications: Current Medications Acetaminophen (Tylenol 325mg Tab) 650 mg PO Q6 PRN PRN Reason: Pain, moderate (4-7) Last Admin: 01/09/16 18:58 Dose: 650 mg Bethanechol Chloride (Urecholine) 50 mg PO TID [facility] Last Admin: 01/11/16 17:12 Dose: 50 mg Carbidopa/Levodopa (Rytary Er 48.75 Mg-195 Mg Cap) 1 cap PO TID@0500,1300,2100 [facility] Last Admin: 01/11/16 20:41 Dose: 1 cap Docusate Sodium (Colace Liquid) 100 mg PO BID [facility] Last Admin: 01/11/16 17:14 Dose: Not Given Fluocinonide (Lidex 0.05% Oint) 1 applic TOP BID [facility] Last Admin: 01/11/16 17:13 Dose: 1 applic Midodrine (Proamatine) 10 mg PO TID [facility] Last Admin: 01/11/16 17:11 Dose: 10 mg Quetiapine Fumarate (Seroquel) 50 mg PO HS PRN PRN Reason: Agitation Last Admin: 01/11/16 09:33 Dose: 50 mg - Labs Labs: 12/03/15 06:30 12/03/15 06:30 - Respiratory Exam Respiratory Exam: NORMAL BREATHING PATTERN - Cardiovascular Exam Cardiovascular Exam: REGULAR RHYTHM - GI/Abdominal Exam GI & Abdominal Exam: Normal Bowel Sounds Assessment and Plan - Assessment and Plan (Free Text) Assessment: Disposition?? 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 ID consult appreciated
[2016-01-12] MEDS: CARBIDOPA PO SCH ×3 (06:00→21:43)
[2016-01-12] MEDS: LEVODOPA PO SCH ×3 (06:00→21:43)
[2016-01-12] MEDS: Bethanechol 50 MG TAB PO SCH ×3 (08:18→17:30)
--- NOTE | 2016-01-12 19:28 | CP.PCM.PN ---
Subjective - Date & Time of Evaluation Date of Evaluation: 01/12/16 Time of Evaluation: 22:22 - Subjective Subjective: Doing well Objective - Vital Signs/Intake and Output Vital Signs (last 24 hours): Temp Pulse Resp BP Pulse Ox 98.1 F 84 20 163/83 H 99 01/12/16 17:09 01/12/16 17:09 01/12/16 17:09 01/12/16 17:26 01/12/16 17:09 - Medications Medications: Current Medications Acetaminophen (Tylenol 325mg Tab) 650 mg PO Q6 PRN PRN Reason: Pain, moderate (4-7) Last Admin: 01/09/16 18:58 Dose: 650 mg Bethanechol Chloride (Urecholine) 50 mg PO TID [facility] Last Admin: 01/12/16 17:30 Dose: 50 mg Carbidopa/Levodopa (Rytary Er 48.75 Mg-195 Mg Cap) 1 cap PO TID@0500,1300,2100 [facility] Last Admin: 01/12/16 14:36 Dose: 1 cap Docusate Sodium (Colace Liquid) 100 mg PO BID [facility] Last Admin: 01/12/16 17:31 Dose: Not Given Fluocinonide (Lidex 0.05% Oint) 1 applic TOP BID [facility] Last Admin: 01/12/16 17:31 Dose: 1 applic Midodrine (Proamatine) 10 mg PO TID [facility] Last Admin: 01/12/16 17:30 Dose: 10 mg Quetiapine Fumarate (Seroquel) 50 mg PO HS PRN PRN Reason: Agitation Last Admin: 01/11/16 09:33 Dose: 50 mg - Labs Labs: 12/03/15 06:30 12/03/15 06:30 - Respiratory Exam Respiratory Exam: NORMAL BREATHING PATTERN - Cardiovascular Exam Cardiovascular Exam: REGULAR RHYTHM - GI/Abdominal Exam GI & Abdominal Exam: Normal Bowel Sounds Assessment and Plan - Assessment and Plan (Free Text) Assessment: Disposition?? 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 ID consult appreciated
[2016-01-13] MEDS: LEVODOPA PO SCH ×3 (05:56→20:43)
[2016-01-13] MEDS: CARBIDOPA PO SCH ×3 (05:56→20:43)
[2016-01-13] MEDS: Bethanechol 50 MG TAB PO SCH ×3 (08:42→18:03)
--- NOTE | 2016-01-13 13:34 | CP.PCM.PN ---
Subjective - Date & Time of Evaluation Date of Evaluation: 01/13/16 Time of Evaluation: 13:34 - Subjective Subjective: Sitting in chair next to his bed, denies any pain or discomfort. He states to please get him home Objective - Vital Signs/Intake and Output Vital Signs (last 24 hours): Temp Pulse Resp BP Pulse Ox 98.1 F 84 20 163/83 H 99 01/12/16 17:09 01/12/16 17:09 01/12/16 17:09 01/12/16 17:26 01/12/16 17:09 - Medications Medications: Current Medications Acetaminophen (Tylenol 325mg Tab) 650 mg PO Q6 PRN PRN Reason: Pain, moderate (4-7) Last Admin: 01/09/16 18:58 Dose: 650 mg Bethanechol Chloride (Urecholine) 50 mg PO TID [facility] Last Admin: 01/13/16 08:42 Dose: 50 mg Carbidopa/Levodopa (Rytary Er 48.75 Mg-195 Mg Cap) 1 cap PO TID@0500,1300,2100 [facility] Last Admin: 01/13/16 05:56 Dose: 1 cap Docusate Sodium (Colace Liquid) 100 mg PO BID [facility] Last Admin: 01/13/16 08:43 Dose: Not Given Fluocinonide (Lidex 0.05% Oint) 1 applic TOP BID [facility] Last Admin: 01/13/16 08:43 Dose: 1 applic Midodrine (Proamatine) 10 mg PO TID [facility] Last Admin: 01/13/16 08:42 Dose: 10 mg Quetiapine Fumarate (Seroquel) 50 mg PO HS PRN PRN Reason: Agitation Last Admin: 01/13/16 08:42 Dose: 50 mg - Labs Labs: 12/03/15 06:30 12/03/15 06:30 - Constitutional Appears: Non-toxic, No Acute Distress, Confused - Respiratory Exam Respiratory Exam: Clear to Ausculation Bilateral, NORMAL BREATHING PATTERN - Cardiovascular Exam Cardiovascular Exam: REGULAR RHYTHM, RRR, +S1, +S2 - GI/Abdominal Exam GI & Abdominal Exam: Soft, Normal Bowel Sounds - Neurological Exam Neurological Exam: Alert, Awake, CN II-XII Intact - Psychiatric Exam Psychiatric exam: Flat Affect Additional comments: masked facies Assessment and Plan (1) Fall Status: Acute (2) Parkinson disease Status: Chronic (3) Thrombocytopenia Status: Chronic (4) Depression Status: Chronic (5) Hypotension Status: Chronic (6) DVT prophylaxis Status: Acute - Assessment and Plan (Free Text) Assessment: 85 y/o male with PMH Parkinsons disease, Shy 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 He has been in the hospital ever since awaiting placement to [place]. Patient is unable to take care of himself due to advanced Parkinsonism. During this admission treated for Zoster infection , UTI , Pneumonia, RLE cellulitis. Patient is almost bedbound , needs maximum assistance for everything , eating , dressing , sitting up and , transfer. Very unsteady gait with fear of falling. 1. Parkinsons Disease -on carbidopa and rytary -continue PT -on seroquel as per psych 2. 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 Normocytic anemia -stable. Monitor 4. Thrombocytopenia- stable 5. Resolved infections- treated with antibiotics -UTI , resolved -Pneumonia-resolved -RLE cellulitis-resolved -Zoster -resolved -Sacral Decubitus ulcers-wound care on board , healing 6.Bilateral shoulder pain sec to OA - lidoderm patch and pain management Awaiting Placement for [facility] Code status: Full code Competent as per psychiatry Surrogate decision maker granddacelso Vaughan
[2016-01-14] MEDS: CARBIDOPA PO SCH ×3 (05:49→20:14)
[2016-01-14] MEDS: LEVODOPA PO SCH ×3 (05:49→20:14)
[2016-01-14] MEDS: Bethanechol 50 MG TAB PO SCH ×3 (08:30→16:24)
--- NOTE | 2016-01-14 15:37 | CP.PCM.PN ---
Subjective - Date & Time of Evaluation Date of Evaluation: 01/14/16 Time of Evaluation: 22:22 - Subjective Subjective: Doing well Sitting in bed Discussed with Nurse Objective - Vital Signs/Intake and Output Vital Signs (last 24 hours): Temp Pulse Resp BP Pulse Ox 97.7 F 55 L 20 92/50 L 98 01/14/16 09:12 01/14/16 09:12 01/14/16 09:12 01/14/16 09:12 01/14/16 09:12 - Medications Medications: Current Medications Acetaminophen (Tylenol 325mg Tab) 650 mg PO Q6 PRN PRN Reason: Pain, moderate (4-7) Last Admin: 01/14/16 13:37 Dose: 650 mg Bethanechol Chloride (Urecholine) 50 mg PO TID [facility] Last Admin: 01/14/16 12:18 Dose: 50 mg Carbidopa/Levodopa (Rytary Er 48.75 Mg-195 Mg Cap) 1 cap PO TID@0500,1300,2100 [facility] Last Admin: 01/14/16 12:18 Dose: 1 cap Docusate Sodium (Colace Liquid) 100 mg PO BID [facility] Last Admin: 01/14/16 08:30 Dose: 100 mg Fluocinonide (Lidex 0.05% Oint) 1 applic TOP BID [facility] Last Admin: 01/14/16 08:30 Dose: 1 applic Midodrine (Proamatine) 10 mg PO TID [facility] Last Admin: 01/14/16 12:18 Dose: 10 mg Quetiapine Fumarate (Seroquel) 50 mg PO HS PRN PRN Reason: Agitation Last Admin: 01/12/16 21:43 Dose: 50 mg - Labs Labs: 12/03/15 06:30 12/03/15 06:30 - Respiratory Exam Respiratory Exam: NORMAL BREATHING PATTERN - Cardiovascular Exam Cardiovascular Exam: REGULAR RHYTHM - GI/Abdominal Exam GI & Abdominal Exam: Normal Bowel Sounds Assessment and Plan - Assessment and Plan (Free Text) Assessment: Disposition?? 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 ID consult appreciated
[2016-01-15] MEDS: LEVODOPA PO SCH ×3 (05:09→20:58)
[2016-01-15] MEDS: CARBIDOPA PO SCH ×3 (05:09→20:58)
[2016-01-15] MEDS: Bethanechol 50 MG TAB PO SCH ×3 (08:43→16:19)
[2016-01-16] MEDS: LEVODOPA PO SCH ×3 (05:59→21:56)
[2016-01-16] MEDS: CARBIDOPA PO SCH ×3 (05:59→21:56)
[2016-01-16] MEDS: Bethanechol 50 MG TAB PO SCH ×3 (09:02→16:28)
--- NOTE | 2016-01-16 20:50 | CP.PCM.PN ---
Subjective - Date & Time of Evaluation Date of Evaluation: 01/16/16 Time of Evaluation: 22:22 - Subjective Subjective: No change in status Objective - Vital Signs/Intake and Output Vital Signs (last 24 hours): Temp Pulse Resp BP Pulse Ox 96.4 F L 79 20 131/85 98 01/16/16 08:58 01/16/16 08:58 01/16/16 08:58 01/16/16 08:58 01/16/16 08:58 - Medications Medications: Current Medications Acetaminophen (Tylenol 325mg Tab) 650 mg PO Q6 PRN PRN Reason: Pain, moderate (4-7) Last Admin: 01/14/16 13:37 Dose: 650 mg Bethanechol Chloride (Urecholine) 50 mg PO TID [facility] Last Admin: 01/16/16 16:28 Dose: 50 mg Carbidopa/Levodopa (Rytary Er 48.75 Mg-195 Mg Cap) 1 cap PO TID@0500,1300,2100 [facility] Last Admin: 01/16/16 12:15 Dose: 1 cap Docusate Sodium (Colace Liquid) 100 mg PO BID [facility] Last Admin: 01/16/16 16:28 Dose: Not Given Fluocinonide (Lidex 0.05% Oint) 1 applic TOP BID [facility] Last Admin: 01/16/16 16:28 Dose: 1 applic Midodrine (Proamatine) 10 mg PO TID [facility] Last Admin: 01/16/16 16:28 Dose: 10 mg Quetiapine Fumarate (Seroquel) 50 mg PO HS PRN PRN Reason: Agitation Last Admin: 01/12/16 21:43 Dose: 50 mg - Labs Labs: 12/03/15 06:30 12/03/15 06:30 - Respiratory Exam Respiratory Exam: NORMAL BREATHING PATTERN - Cardiovascular Exam Cardiovascular Exam: REGULAR RHYTHM - GI/Abdominal Exam GI & Abdominal Exam: Normal Bowel Sounds Assessment and Plan - Assessment and Plan (Free Text) Assessment: Disposition?? 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 ID consult appreciated
[2016-01-17] MEDS: LEVODOPA PO SCH ×3 (05:25→20:04)
[2016-01-17] MEDS: CARBIDOPA PO SCH ×3 (05:25→20:04)
[2016-01-17] MEDS: Bethanechol 50 MG TAB PO SCH ×3 (08:37→16:10)
--- NOTE | 2016-01-17 17:28 | CP.PCM.PN ---
Subjective - Date & Time of Evaluation Date of Evaluation: 01/17/16 Time of Evaluation: 22:22 - Subjective Subjective: Sitting in chair Objective - Vital Signs/Intake and Output Vital Signs (last 24 hours): Temp Pulse Resp BP Pulse Ox 97.5 F L 78 20 102/51 L 97 01/17/16 09:00 01/17/16 09:00 01/17/16 09:00 01/17/16 09:00 01/17/16 09:00 - Medications Medications: Current Medications Acetaminophen (Tylenol 325mg Tab) 650 mg PO Q6 PRN PRN Reason: Pain, moderate (4-7) Last Admin: 01/17/16 01:50 Dose: 650 mg Bethanechol Chloride (Urecholine) 50 mg PO TID [facility] Last Admin: 01/17/16 16:10 Dose: 50 mg Carbidopa/Levodopa (Rytary Er 48.75 Mg-195 Mg Cap) 1 cap PO TID@0500,1300,2100 [facility] Last Admin: 01/17/16 12:58 Dose: 1 cap Docusate Sodium (Colace Liquid) 100 mg PO BID [facility] Last Admin: 01/17/16 16:10 Dose: 100 mg Fluocinonide (Lidex 0.05% Oint) 1 applic TOP BID [facility] Last Admin: 01/17/16 16:10 Dose: 1 applic Midodrine (Proamatine) 10 mg PO TID [facility] Last Admin: 01/17/16 16:10 Dose: 10 mg Quetiapine Fumarate (Seroquel) 50 mg PO HS PRN PRN Reason: Agitation Last Admin: 01/12/16 21:43 Dose: 50 mg - Labs Labs: 12/03/15 06:30 12/03/15 06:30 - Respiratory Exam Respiratory Exam: NORMAL BREATHING PATTERN - Cardiovascular Exam Cardiovascular Exam: REGULAR RHYTHM - GI/Abdominal Exam GI & Abdominal Exam: Normal Bowel Sounds Assessment and Plan - Assessment and Plan (Free Text) Assessment: Disposition?? 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 ID consult appreciated
[2016-01-18] MEDS: LEVODOPA PO SCH ×4 (05:43→21:05)
[2016-01-18] MEDS: CARBIDOPA PO SCH ×4 (05:43→21:05)
[2016-01-18] MEDS: Bethanechol 50 MG TAB PO SCH ×3 (10:06→16:45)
--- NOTE | 2016-01-18 20:29 | CP.PCM.PN ---
Subjective - Date & Time of Evaluation Date of Evaluation: 01/18/16 Time of Evaluation: 22:22 - Subjective Subjective: No change in status Objective - Vital Signs/Intake and Output Vital Signs (last 24 hours): Temp Pulse Resp BP Pulse Ox 98.6 F 90 20 144/77 98 01/18/16 16:41 01/18/16 17:00 01/18/16 16:41 01/18/16 17:00 01/18/16 16:41 - Medications Medications: Current Medications Acetaminophen (Tylenol 325mg Tab) 650 mg PO Q6 PRN PRN Reason: Pain, moderate (4-7) Last Admin: 01/17/16 17:47 Dose: 650 mg Bethanechol Chloride (Urecholine) 50 mg PO TID [facility] Last Admin: 01/18/16 16:45 Dose: 50 mg Carbidopa/Levodopa (Rytary Er 48.75 Mg-195 Mg Cap) 1 cap PO TID@0500,1300,2100 [facility] Last Admin: 01/18/16 14:35 Dose: 1 cap Docusate Sodium (Colace Liquid) 100 mg PO BID [facility] Last Admin: 01/18/16 16:42 Dose: Not Given Fluocinonide (Lidex 0.05% Oint) 1 applic TOP BID [facility] Last Admin: 01/18/16 16:42 Dose: 1 applic Midodrine (Proamatine) 10 mg PO TID [facility] Last Admin: 01/18/16 16:46 Dose: 10 mg Quetiapine Fumarate (Seroquel) 50 mg PO HS PRN PRN Reason: Agitation Last Admin: 01/17/16 23:00 Dose: 50 mg - Labs Labs: 12/03/15 06:30 12/03/15 06:30 - Respiratory Exam Respiratory Exam: NORMAL BREATHING PATTERN - Cardiovascular Exam Cardiovascular Exam: REGULAR RHYTHM - GI/Abdominal Exam GI & Abdominal Exam: Normal Bowel Sounds Assessment and Plan - Assessment and Plan (Free Text) Assessment: Disposition?? 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 ID consult appreciated
[2016-01-19] MEDS: CARBIDOPA PO SCH ×3 (05:50→20:56)
[2016-01-19] MEDS: LEVODOPA PO SCH ×3 (05:50→20:56)
[2016-01-19] MEDS: Bethanechol 50 MG TAB PO SCH ×3 (09:51→18:14)
--- NOTE | 2016-01-19 19:33 | CP.PCM.PN ---
Subjective - Date & Time of Evaluation Date of Evaluation: 01/19/16 Time of Evaluation: 22:22 - Subjective Subjective: doing well Objective - Vital Signs/Intake and Output Vital Signs (last 24 hours): Temp Pulse Resp BP Pulse Ox 97.5 F L 77 20 141/74 98 01/19/16 16:50 01/19/16 16:50 01/19/16 16:50 01/19/16 16:50 01/19/16 16:50 - Medications Medications: Current Medications Acetaminophen (Tylenol 325mg Tab) 650 mg PO Q6 PRN PRN Reason: Pain, moderate (4-7) Last Admin: 01/17/16 17:47 Dose: 650 mg Bethanechol Chloride (Urecholine) 50 mg PO TID [facility] Last Admin: 01/19/16 18:14 Dose: 50 mg Carbidopa/Levodopa (Rytary Er 48.75 Mg-195 Mg Cap) 1 cap PO TID@0500,1300,2100 [facility] Last Admin: 01/19/16 14:25 Dose: 1 cap Docusate Sodium (Colace Liquid) 100 mg PO BID [facility] Last Admin: 01/19/16 18:13 Dose: Not Given Fluocinonide (Lidex 0.05% Oint) 1 applic TOP BID [facility] Last Admin: 01/19/16 18:14 Dose: 1 applic Midodrine (Proamatine) 10 mg PO TID [facility] Last Admin: 01/19/16 18:14 Dose: 10 mg Quetiapine Fumarate (Seroquel) 50 mg PO HS PRN PRN Reason: Agitation Last Admin: 01/18/16 21:05 Dose: 50 mg - Labs Labs: 12/03/15 06:30 12/03/15 06:30 - Respiratory Exam Respiratory Exam: NORMAL BREATHING PATTERN - Cardiovascular Exam Cardiovascular Exam: REGULAR RHYTHM - GI/Abdominal Exam GI & Abdominal Exam: Normal Bowel Sounds Assessment and Plan - Assessment and Plan (Free Text) Assessment: Disposition?? 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 ID consult appreciated
[2016-01-20] MEDS: CARBIDOPA PO SCH ×3 (06:45→21:31)
[2016-01-20] MEDS: LEVODOPA PO SCH ×3 (06:45→21:31)
[2016-01-20] MEDS: Bethanechol 50 MG TAB PO SCH ×3 (09:56→16:52)
--- NOTE | 2016-01-20 20:39 | CP.PCM.PN ---
Subjective - Date & Time of Evaluation Date of Evaluation: 01/20/16 Time of Evaluation: 22:22 - Subjective Subjective: Doing well Family at bedside Objective - Vital Signs/Intake and Output Vital Signs (last 24 hours): Temp Pulse Resp BP Pulse Ox 97.0 F L 94 H 19 97/62 L 100 01/20/16 16:00 01/20/16 16:00 01/20/16 16:00 01/20/16 16:00 01/20/16 16:00 - Medications Medications: Current Medications Acetaminophen (Tylenol 325mg Tab) 650 mg PO Q6 PRN PRN Reason: Pain, moderate (4-7) Last Admin: 01/17/16 17:47 Dose: 650 mg Bethanechol Chloride (Urecholine) 50 mg PO TID [facility] Last Admin: 01/20/16 16:52 Dose: 50 mg Carbidopa/Levodopa (Rytary Er 48.75 Mg-195 Mg Cap) 1 cap PO TID@0500,1300,2100 [facility] Last Admin: 01/20/16 13:00 Dose: 1 cap Docusate Sodium (Colace Liquid) 100 mg PO BID [facility] Last Admin: 01/20/16 16:48 Dose: 100 mg Fluocinonide (Lidex 0.05% Oint) 1 applic TOP BID [facility] Last Admin: 01/20/16 16:48 Dose: 1 applic Midodrine (Proamatine) 10 mg PO TID [facility] Last Admin: 01/20/16 16:50 Dose: 10 mg Quetiapine Fumarate (Seroquel) 50 mg PO HS PRN PRN Reason: Agitation Last Admin: 01/19/16 21:00 Dose: 50 mg - Labs Labs: 12/03/15 06:30 12/03/15 06:30 - Respiratory Exam Respiratory Exam: NORMAL BREATHING PATTERN - Cardiovascular Exam Cardiovascular Exam: REGULAR RHYTHM - GI/Abdominal Exam GI & Abdominal Exam: Normal Bowel Sounds Assessment and Plan - Assessment and Plan (Free Text) Assessment: Disposition?? 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 ID consult appreciated
[2016-01-21] MEDS: LEVODOPA PO SCH ×3 (05:43→21:41)
[2016-01-21] MEDS: CARBIDOPA PO SCH ×3 (05:43→21:41)
[2016-01-21] MEDS: Bethanechol 50 MG TAB PO SCH ×3 (09:30→16:37)
--- NOTE | 2016-01-21 15:09 | CP.PCM.PN ---
Subjective - Date & Time of Evaluation Date of Evaluation: 01/21/16 Time of Evaluation: 22:22 - Subjective Subjective: Doing well Objective - Vital Signs/Intake and Output Vital Signs (last 24 hours): Temp Pulse Resp BP Pulse Ox 97.3 F L 78 18 136/83 98 01/21/16 07:59 01/21/16 07:59 01/21/16 07:59 01/21/16 07:59 01/21/16 07:59 - Medications Medications: Current Medications Acetaminophen (Tylenol 325mg Tab) 650 mg PO Q6 PRN PRN Reason: Pain, moderate (4-7) Last Admin: 01/17/16 17:47 Dose: 650 mg Bethanechol Chloride (Urecholine) 50 mg PO TID [facility] Last Admin: 01/21/16 09:30 Dose: 50 mg Carbidopa/Levodopa (Rytary Er 48.75 Mg-195 Mg Cap) 1 cap PO TID@0500,1300,2100 [facility] Last Admin: 01/21/16 05:43 Dose: 1 cap Docusate Sodium (Colace Liquid) 100 mg PO BID [facility] Last Admin: 01/21/16 09:28 Dose: 100 mg Fluocinonide (Lidex 0.05% Oint) 1 applic TOP BID [facility] Last Admin: 01/21/16 09:28 Dose: 1 applic Midodrine (Proamatine) 10 mg PO TID [facility] Last Admin: 01/21/16 09:28 Dose: 10 mg Quetiapine Fumarate (Seroquel) 50 mg PO HS PRN PRN Reason: Agitation Last Admin: 01/19/16 21:00 Dose: 50 mg - Labs Labs: 12/03/15 06:30 12/03/15 06:30 - Respiratory Exam Respiratory Exam: NORMAL BREATHING PATTERN - Cardiovascular Exam Cardiovascular Exam: REGULAR RHYTHM - GI/Abdominal Exam GI & Abdominal Exam: Normal Bowel Sounds Assessment and Plan - Assessment and Plan (Free Text) Assessment: Disposition?? 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 ID consult appreciated
[2016-01-22] MEDS: LEVODOPA PO SCH ×3 (05:50→20:25)
[2016-01-22] MEDS: CARBIDOPA PO SCH ×3 (05:50→20:25)
[2016-01-22] MEDS: Bethanechol 50 MG TAB PO SCH ×3 (08:36→17:24)
--- NOTE | 2016-01-22 20:39 | CP.PCM.PN ---
Subjective - Date & Time of Evaluation Date of Evaluation: 01/22/16 Time of Evaluation: 22:22 - Subjective Subjective: Resting in bed Objective - Vital Signs/Intake and Output Vital Signs (last 24 hours): Temp Pulse Resp BP Pulse Ox 97.7 F 63 20 146/85 100 01/22/16 17:25 01/22/16 17:25 01/22/16 17:25 01/22/16 17:25 01/22/16 17:25 - Medications Medications: Current Medications Acetaminophen (Tylenol 325mg Tab) 650 mg PO Q6 PRN PRN Reason: Pain, moderate (4-7) Last Admin: 01/22/16 11:59 Dose: 650 mg Bethanechol Chloride (Urecholine) 50 mg PO TID [facility] Last Admin: 01/22/16 17:24 Dose: 50 mg Carbidopa/Levodopa (Rytary Er 48.75 Mg-195 Mg Cap) 1 cap PO TID@0500,1300,2100 [facility] Last Admin: 01/22/16 20:25 Dose: 1 cap Docusate Sodium (Colace Liquid) 100 mg PO BID [facility] Last Admin: 01/22/16 17:24 Dose: 100 mg Fluocinonide (Lidex 0.05% Oint) 1 applic TOP BID [facility] Last Admin: 01/22/16 17:24 Dose: 1 applic Midodrine (Proamatine) 10 mg PO TID [facility] Last Admin: 01/22/16 17:24 Dose: 10 mg Quetiapine Fumarate (Seroquel) 50 mg PO HS PRN PRN Reason: Agitation Last Admin: 01/19/16 21:00 Dose: 50 mg - Labs Labs: 12/03/15 06:30 12/03/15 06:30 - Respiratory Exam Respiratory Exam: NORMAL BREATHING PATTERN - Cardiovascular Exam Cardiovascular Exam: REGULAR RHYTHM - GI/Abdominal Exam GI & Abdominal Exam: Normal Bowel Sounds Assessment and Plan - Assessment and Plan (Free Text) Assessment: Disposition?? 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 ID consult appreciated
[2016-01-23] MEDS: CARBIDOPA PO SCH ×3 (04:02→21:02)
[2016-01-23] MEDS: LEVODOPA PO SCH ×3 (04:02→21:02)
[2016-01-23] MEDS: Bethanechol 50 MG TAB PO SCH ×3 (08:22→17:18)
--- NOTE | 2016-01-23 20:44 | CP.PCM.PN ---
Subjective - Date & Time of Evaluation Date of Evaluation: 01/23/16 Time of Evaluation: 22:22 - Subjective Subjective: No change Objective - Vital Signs/Intake and Output Vital Signs (last 24 hours): Temp Pulse Resp BP Pulse Ox 98.1 F 74 20 135/83 100 01/23/16 17:00 01/23/16 16:23 01/23/16 16:23 01/23/16 16:23 01/23/16 16:23 - Medications Medications: Current Medications Acetaminophen (Tylenol 325mg Tab) 650 mg PO Q6 PRN PRN Reason: Pain, moderate (4-7) Last Admin: 01/23/16 17:16 Dose: 650 mg Bethanechol Chloride (Urecholine) 50 mg PO TID [facility] Last Admin: 01/23/16 17:18 Dose: 50 mg Carbidopa/Levodopa (Rytary Er 48.75 Mg-195 Mg Cap) 1 cap PO TID@0500,1300,2100 [facility] Last Admin: 01/23/16 13:17 Dose: 1 cap Docusate Sodium (Colace) 100 mg PO BID [facility] Last Admin: 01/23/16 17:17 Dose: 100 mg Fluocinonide (Lidex 0.05% Oint) 1 applic TOP BID [facility] Last Admin: 01/23/16 17:18 Dose: 1 applic Midodrine (Proamatine) 10 mg PO TID [facility] Last Admin: 01/23/16 17:16 Dose: 10 mg Quetiapine Fumarate (Seroquel) 50 mg PO HS PRN PRN Reason: Agitation Last Admin: 01/22/16 23:09 Dose: 50 mg - Labs Labs: 12/03/15 06:30 12/03/15 06:30 - Respiratory Exam Respiratory Exam: NORMAL BREATHING PATTERN - Cardiovascular Exam Cardiovascular Exam: REGULAR RHYTHM - GI/Abdominal Exam GI & Abdominal Exam: Normal Bowel Sounds Assessment and Plan - Assessment and Plan (Free Text) Assessment: Disposition?? 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 ID consult appreciated
[2016-01-24] MEDS: CARBIDOPA PO SCH ×3 (06:13→21:18)
[2016-01-24] MEDS: LEVODOPA PO SCH ×3 (06:13→21:18)
[2016-01-24] MEDS: Bethanechol 50 MG TAB PO SCH ×3 (09:24→16:23)
--- NOTE | 2016-01-24 13:30 | CP.PCM.PN ---
Subjective - Date & Time of Evaluation Date of Evaluation: 01/24/16 Time of Evaluation: 11:00 - Subjective Subjective: no change rx renewed Objective - Vital Signs/Intake and Output Vital Signs (last 24 hours): Temp Pulse Resp BP Pulse Ox 97.2 F L 82 20 133/77 98 01/24/16 08:53 01/24/16 08:53 01/24/16 08:53 01/24/16 08:53 01/24/16 08:53 - Medications Medications: Current Medications Acetaminophen (Tylenol 325mg Tab) 650 mg PO Q6 PRN PRN Reason: Pain, moderate (4-7) Last Admin: 01/23/16 17:16 Dose: 650 mg Bethanechol Chloride (Urecholine) 50 mg PO TID [facility] Last Admin: 01/24/16 13:14 Dose: 50 mg Carbidopa/Levodopa (Rytary Er 48.75 Mg-195 Mg Cap) 1 cap PO TID@0500,1300,2100 [facility] Last Admin: 01/24/16 13:14 Dose: 1 cap Docusate Sodium (Colace) 100 mg PO BID [facility] Last Admin: 01/24/16 09:24 Dose: 100 mg Fluocinonide (Lidex 0.05% Oint) 1 applic TOP BID [facility] Last Admin: 01/24/16 09:24 Dose: 1 applic Midodrine (Proamatine) 10 mg PO TID [facility] Last Admin: 01/24/16 13:14 Dose: 10 mg Quetiapine Fumarate (Seroquel) 50 mg PO HS PRN PRN Reason: Agitation Last Admin: 01/23/16 21:05 Dose: 50 mg - Labs Labs: 12/03/15 06:30 12/03/15 06:30 - Constitutional Appears: Non-toxic, Chronically Ill - Head Exam Head Exam: NORMOCEPHALIC - Eye Exam Eye Exam: PERRL - Neck Exam Neck Exam: absent: Lymphadenopathy - Cardiovascular Exam Cardiovascular Exam: REGULAR RHYTHM, +S1, +S2 - GI/Abdominal Exam GI & Abdominal Exam: Soft. absent: Tenderness - Rectal Exam Rectal Exam: Deferred - Exam Exam: NORMAL INSPECTION Assessment and Plan (1) Cellulitis and abscess of leg, except foot Status: Suspected (2) Fever Status: Acute
--- NOTE | 2016-01-24 19:46 | CP.PCM.PN ---
Subjective - Date & Time of Evaluation Date of Evaluation: 01/24/16 Time of Evaluation: 22:22 - Subjective Subjective: Doing well Objective - Vital Signs/Intake and Output Vital Signs (last 24 hours): Temp Pulse Resp BP Pulse Ox 97.9 F 75 20 142/86 99 01/24/16 16:38 01/24/16 16:38 01/24/16 16:38 01/24/16 16:38 01/24/16 16:38 - Medications Medications: Current Medications Acetaminophen (Tylenol 325mg Tab) 650 mg PO Q6 PRN PRN Reason: Pain, moderate (4-7) Last Admin: 01/23/16 17:16 Dose: 650 mg Bethanechol Chloride (Urecholine) 50 mg PO TID [facility] Last Admin: 01/24/16 16:23 Dose: 50 mg Carbidopa/Levodopa (Rytary Er 48.75 Mg-195 Mg Cap) 1 cap PO TID@0500,1300,2100 [facility] Last Admin: 01/24/16 13:14 Dose: 1 cap Docusate Sodium (Colace) 100 mg PO BID [facility] Last Admin: 01/24/16 16:23 Dose: 100 mg Fluocinonide (Lidex 0.05% Oint) 1 applic TOP BID [facility] Last Admin: 01/24/16 16:23 Dose: 1 applic Midodrine (Proamatine) 10 mg PO TID [facility] Last Admin: 01/24/16 16:23 Dose: 10 mg Quetiapine Fumarate (Seroquel) 50 mg PO HS PRN PRN Reason: Agitation Last Admin: 01/23/16 21:05 Dose: 50 mg - Labs Labs: 12/03/15 06:30 12/03/15 06:30 - Respiratory Exam Respiratory Exam: NORMAL BREATHING PATTERN - Cardiovascular Exam Cardiovascular Exam: REGULAR RHYTHM - GI/Abdominal Exam GI & Abdominal Exam: Normal Bowel Sounds Assessment and Plan - Assessment and Plan (Free Text) Assessment: Disposition?? 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 ID consult appreciated
[2016-01-25] MEDS: LEVODOPA PO SCH ×3 (05:54→20:40)
[2016-01-25] MEDS: CARBIDOPA PO SCH ×3 (05:54→20:40)
[2016-01-25] MEDS: Bethanechol 50 MG TAB PO SCH ×3 (08:48→16:44)
--- NOTE | 2016-01-25 11:33 | CP.PCM.PN ---
Subjective - Date & Time of Evaluation Date of Evaluation: 01/25/16 Time of Evaluation: 22:22 - Subjective Subjective: Sleeping Objective - Vital Signs/Intake and Output Vital Signs (last 24 hours): Temp Pulse Resp BP Pulse Ox 97.9 F 78 20 107/68 96 01/25/16 08:15 01/25/16 08:15 01/25/16 08:15 01/25/16 08:15 01/25/16 08:15 - Medications Medications: Current Medications Acetaminophen (Tylenol 325mg Tab) 650 mg PO Q6 PRN PRN Reason: Pain, moderate (4-7) Last Admin: 01/23/16 17:16 Dose: 650 mg Bethanechol Chloride (Urecholine) 50 mg PO TID [facility] Last Admin: 01/25/16 08:48 Dose: 50 mg Carbidopa/Levodopa (Rytary Er 48.75 Mg-195 Mg Cap) 1 cap PO TID@0500,1300,2100 [facility] Last Admin: 01/25/16 05:54 Dose: 1 cap Docusate Sodium (Colace) 100 mg PO BID [facility] Last Admin: 01/25/16 08:47 Dose: 100 mg Fluocinonide (Lidex 0.05% Oint) 1 applic TOP BID [facility] Last Admin: 01/25/16 08:49 Dose: 1 applic Midodrine (Proamatine) 10 mg PO TID [facility] Last Admin: 01/25/16 08:48 Dose: 10 mg Quetiapine Fumarate (Seroquel) 50 mg PO HS PRN PRN Reason: Agitation Last Admin: 01/24/16 21:18 Dose: 50 mg - Labs Labs: 12/03/15 06:30 12/03/15 06:30 - Respiratory Exam Respiratory Exam: NORMAL BREATHING PATTERN - Cardiovascular Exam Cardiovascular Exam: REGULAR RHYTHM - GI/Abdominal Exam GI & Abdominal Exam: Normal Bowel Sounds Assessment and Plan - Assessment and Plan (Free Text) Assessment: Disposition?? 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 ID consult appreciated
[2016-01-26] MEDS: LEVODOPA PO SCH ×3 (05:49→21:54)
[2016-01-26] MEDS: CARBIDOPA PO SCH ×3 (05:49→21:54)
[2016-01-26] MEDS: Bethanechol 50 MG TAB PO SCH ×3 (09:15→16:55)
--- NOTE | 2016-01-26 10:56 | PN ---
DATE: 01/26/2016 The patient seen and examined. The patient seen by Dr. Cornejo . The patient remains on medical floor. The patient denies any specific complaints. No chest pain, no shortness of breath. T he patient is having his breakfast, tolerating very well without any swallowing problem. PHYSICAL EXAMINATION: GENERAL: The patient is in no acute distress. VITAL SIGNS: Stable. HEART: S1, S2 normal, regular. LUNGS: Good bilateral air entry. ABDOMEN: Soft, nontender. EXTREMITIES: No edema, no calf swelling, no tenderness, no acute ischemia. CENTRAL NERVOUS SYSTEM: Essentially unchanged. The patient has advanced Parkinson's. Overall, patient is medically stable. PLAN: As ordered. Rashaun Mendoza MD cc: [id number] TT: 01/26/2016 10:55:36 Confirmation # [id number] Dictation # [id number] en
[2016-01-27] MEDS: LEVODOPA PO SCH ×3 (06:28→21:40)
[2016-01-27] MEDS: CARBIDOPA PO SCH ×3 (06:28→21:40)
--- NOTE | 2016-01-27 09:08 | PN ---
DATE: 01/27/2016 SUBJECTIVE: The patient seen and examined. Interim events noted. The patient remains in general pr dical floor. The patient is awake, responsive, but essentially noncommunicative. Denies any specifi c complaint of chest pain or shortness of breath. Nursing staff also did not report any significant issue. PHYSICAL EXAMINATION: GENERAL: The patient is in no acute distress. VITAL SIGNS: Stable. HEART: S1, S2 normal, regular. LUNGS: Good bilateral air entry. ABDOMEN: Soft, nontender. EXTREMITIES: No edema, no calf swelling, no tenderness, no acute ischemia. CENTRAL NERVOUS SYSTEM: Essentially unchanged. The patient has Parkinson's disease. Overall, the patient's medical condition is clinically stable. PLAN: As ordered. Rashaun Mendoza MD cc: [id number] TT: 01/27/2016 09:08:15 Confirmation # [id number] Dictation # [id number] ln
[2016-01-27] MEDS: Bethanechol 50 MG TAB PO SCH ×3 (09:33→18:05)
[2016-01-28] MEDS: CARBIDOPA PO SCH ×3 (05:44→20:43)
[2016-01-28] MEDS: LEVODOPA PO SCH ×3 (05:44→20:43)
[2016-01-28] MEDS: Bethanechol 50 MG TAB PO SCH ×3 (08:43→18:04)
--- NOTE | 2016-01-28 10:13 | PN ---
DATE: 01/28/2016 The patient seen and examined. Interim events noted. The patient remains on medical floor. The pat ient is confused and not able to provide informative history or review of systems: Denies any specif ic complaint. No specific issues reported by nursing staff. PHYSICAL EXAMINATION: GENERAL: The patient is in no acute distress. VITAL SIGNS: Stable. HEART: S1, S2 normal, regular. LUNGS: Good bilateral air entry. ABDOMEN: Soft, nontender. EXTREMITIES: No edema, no calf swelling, no tenderness, no acute ischemia. CENTRAL NERVOUS SYSTEM: Essentially unchanged. DIAGNOSTIC DATA: Available diagnostic data reviewed. Overall, patient is medically stable. PLAN: As ordered. Rashaun Mendoza MD cc: [id number] TT: 01/28/2016 10:12:54 Confirmation # [id number] Dictation # [id number] sohan
[2016-01-29] MEDS: LEVODOPA PO SCH ×3 (04:47→20:26)
[2016-01-29] MEDS: CARBIDOPA PO SCH ×3 (04:47→20:26)
[2016-01-29] MEDS: Bethanechol 50 MG TAB PO SCH ×3 (08:41→16:19)
[2016-01-30] MEDS: LEVODOPA PO SCH ×3 (04:55→20:49)
[2016-01-30] MEDS: CARBIDOPA PO SCH ×3 (04:55→20:49)
--- NOTE | 2016-01-30 07:21 | PN ---
DATE: 01/29/2016 The pa01/29/2016tient is seen and examined. The patient seen by ____ study. The patient is not a ble to provide informative history or review of systems, but the patient feels okay. Denies any spec [facility] complaints. No chest pain, no shortness of breath, although the patient is not a reliable histo alexis. PHYSICAL EXAMINATION: GENERAL: The patient is in no acute distress. VITAL SIGNS: Stable. Physical exam is essentially unchanged. DIAGNOSTIC DATA: Available diagnostic data reviewed. Overall, the patient's general medical condition is stable. Awaiting for social service evaluation a nd arrangements for the patient to be transferred to a long-term care facility. PLAN: As ordered. Rashaun Mendoza MD cc: [id number] TT: 01/29/2016 10:07:39 Confirmation # [id number] Dictation # [id number] jn
[2016-01-30] MEDS: Bethanechol 50 MG TAB PO SCH ×3 (08:37→17:45)
--- NOTE | 2016-01-30 12:32 | PN ---
DATE: 01/30/2016 The patient seen for Dr. Cornejo. The patient seen and examined. Interim events noted. The patient remains on medical floor. Not abl e to provide current informative history or review of systems, but denies any specific medical compla ints. No specific medical issue reported by nursing staff. PHYSICAL EXAMINATION: GENERAL: The patient is in no acute distress. VITAL SIGNS: Stable. Physical exam is essentially unchanged. DIAGNOSTIC DATA: Available diagnostic data reviewed. Overall, the patient's general medical condition is stable. PLAN: As ordered. Rashaun Mendoza MD cc: [id number] TT: 01/30/2016 12:32:43 Confirmation # [id number] Dictation # [id number] tn
[2016-01-31] MEDS: LEVODOPA PO SCH ×3 (05:12→22:02)
[2016-01-31] MEDS: CARBIDOPA PO SCH ×3 (05:12→22:02)
[2016-01-31] MEDS: Bethanechol 50 MG TAB PO SCH ×3 (08:49→17:15)
--- NOTE | 2016-01-31 10:50 | PN ---
DATE: 01/31/2016 The patient is seen and examined. Interim events noted. The patient remains in medical floor, await ing for prison transfer. The patient is not complaining of any medical issues. Nursing staff also does not report any specific medical issues. PHYSICAL EXAMINATION: GENERAL: The patient is in no acute distress. VITAL SIGNS: Stable. HEART: S1, S2 normal, regular. LUNGS: Good bilateral air exchange. ABDOMEN: Soft, nontender. EXTREMITIES: No edema, no calf swelling, no tenderness, no acute ischemia. CENTRAL NERVOUS SYSTEM: Essentially unchanged. DIAGNOSTIC DATA: Available diagnostic data reviewed. Overall, the patient's general medical condition is stable. PLAN: As ordered. Rashaun Mendoza MD cc: [id number] TT: 01/31/2016 10:50:15 Confirmation # [id number] Dictation # [id number] [email or web address]
--- NOTE | 2016-01-31 19:16 | CP.PCM.PN ---
Subjective - Date & Time of Evaluation Date of Evaluation: 01/31/16 Time of Evaluation: 22:22 - Subjective Subjective: Doing well Objective - Vital Signs/Intake and Output Vital Signs (last 24 hours): Temp Pulse Resp BP Pulse Ox 97.7 F 95 H 20 102/82 93 L 01/31/16 16:45 01/31/16 16:45 01/31/16 16:45 01/31/16 16:45 01/31/16 16:45 - Medications Medications: Current Medications Acetaminophen (Tylenol 325mg Tab) 650 mg PO Q6 PRN PRN Reason: Pain, moderate (4-7) Last Admin: 01/30/16 17:50 Dose: 650 mg Bethanechol Chloride (Urecholine) 50 mg PO TID [facility] Last Admin: 01/31/16 17:15 Dose: 50 mg Carbidopa/Levodopa (Rytary Er 48.75 Mg-195 Mg Cap) 1 cap PO TID@0500,1300,2100 [facility] Last Admin: 01/31/16 12:34 Dose: 1 cap Docusate Sodium (Colace) 100 mg PO BID [facility] Last Admin: 01/31/16 17:16 Dose: 100 mg Fluocinonide (Lidex 0.05% Oint) 1 applic TOP BID [facility] Last Admin: 01/31/16 17:15 Dose: 1 applic Midodrine (Proamatine) 10 mg PO TID [facility] Last Admin: 01/31/16 17:15 Dose: 10 mg Quetiapine Fumarate (Seroquel) 50 mg PO HS PRN PRN Reason: Agitation Last Admin: 01/30/16 20:49 Dose: 50 mg - Labs Labs: 12/03/15 06:30 12/03/15 06:30 - Respiratory Exam Respiratory Exam: NORMAL BREATHING PATTERN - Cardiovascular Exam Cardiovascular Exam: REGULAR RHYTHM - GI/Abdominal Exam GI & Abdominal Exam: Normal Bowel Sounds Assessment and Plan - Assessment and Plan (Free Text) Assessment: Disposition?? 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 ID consult appreciated
[2016-02-01] MEDS: CARBIDOPA PO SCH ×3 (04:31→21:10)
[2016-02-01] MEDS: LEVODOPA PO SCH ×3 (04:31→21:10)
--- NOTE | 2016-02-01 07:27 | CP.PCM.CON ---
History of Present Illness - History of Present Illness History of Present Illness: 85 year old male pt suffering form Parkinson's Disease re-consulted concerning elongated toenails. Comminication difficult to advance stage of Parkinson's. Pt seen at bedside and was resting comfortably. Discussed pts over all condition with shift nurse who states pt has note suffered from recent n/v/f/c/ cp/sob. Past Patient History - Tetanus Immunizations Tetanus Immunization: Unknown - Past Medical History & Family History Past Medical History?: Yes - Past Social History Smoking Status: Never Smoked - CARDIAC Hx Cardiac Disorders: No Hx Congestive Heart Failure: No Hx Hypercholesterolemia: No Hx Hypertension: No - PULMONARY Hx Chronic Obstructive Pulmonary Disease (COPD): No - NEUROLOGICAL HX Cerebrovascular Accident: No - HEENT Hx HEENT Problems: Yes Hx Cataracts: No Hx Deafness: No Hx Difficulty Chewing: No Hx Epistaxis: No Hx Glaucoma: Yes Hx Macular Degeneration: No - RENAL Hx Renal Failure: No - ENDOCRINE/METABOLIC Hx Diabetes Mellitus Type 1: No Hx Diabetes Mellitus Type 2: No Hx Hypothyroidism: No - HEMATOLOGICAL/ONCOLOGICAL Hx Anemia: No Hx Human Immunodeficiency Virus (HIV): No Hx Sickle Cell Disease: No - INTEGUMENTARY Hx Dermatological Problems: No Hx Basil Cell: No Hx Silva: No Hx Cellulitis: Yes (right leg) Hx Eczema: No Hx Melanoma: No Hx Psoriasis: No Hx Squamous Cell: No - MUSCULOSKELETAL/RHEUMATOLOGICAL Hx Arthritis: No Hx Rheumatoid Arthritis: No - GASTROINTESTINAL Hx Crohn's Disease: No Hx Diverticulitis: No Hx Gall Bladder Disease: No Hx Gastritis: No Hx Pancreatitis: No - GENITOURINARY/GYNECOLOGICAL Hx Sexually Transmitted Disorders: No - PSYCHIATRIC Hx Anxiety: Yes Hx Depression: Yes - SURGICAL HISTORY Hx Appendectomy: Yes Hx Carotid Endarterectomy: No Hx Cholecystectomy: No Hx Coronary Artery Bypass Graft: No Hx Coronary Stent: No Hx Tonsillectomy: Yes - ANESTHESIA Hx Anesthesia: Yes Hx Anesthesia Reactions: No Hx Malignant Hyperthermia: No Meds Allergies/Adverse Reactions: Allergies Allergy/AdvReac Type Severity Reaction Status Date / Time Penicillins Allergy Hives Verified 08/01/15 06:34 - Medications Medications: Current Medications Acetaminophen (Tylenol 325mg Tab) 650 mg PO Q6 PRN PRN Reason: Pain, moderate (4-7) Last Admin: 01/30/16 17:50 Dose: 650 mg Bethanechol Chloride (Urecholine) 50 mg PO TID [facility] Last Admin: 01/31/16 17:15 Dose: 50 mg Carbidopa/Levodopa (Rytary Er 48.75 Mg-195 Mg Cap) 1 cap PO TID@0500,1300,2100 [facility] Last Admin: 02/01/16 04:31 Dose: 1 cap Docusate Sodium (Colace) 100 mg PO BID [facility] Last Admin: 01/31/16 17:16 Dose: 100 mg Fluocinonide (Lidex 0.05% Oint) 1 applic TOP BID [facility] Last Admin: 01/31/16 17:15 Dose: 1 applic Midodrine (Proamatine) 10 mg PO TID [facility] Last Admin: 01/31/16 17:15 Dose: 10 mg Quetiapine Fumarate (Seroquel) 50 mg PO HS PRN PRN Reason: Agitation Last Admin: 01/31/16 22:02 Dose: 50 mg Physical Exam - Constitutional Appears: Well, Non-toxic, No Acute Distress - Extremities Exam Additional comments: Lower extremity focused. DERM: Scaly patch noted to anterior-lateral aspect of right foot free of edema, are cellulitic appearance. Skin turgor diminished. All 10 nails are elongated, discolored w/ subungual debris. Incurvated b/l birders noted to right hallux nail. Diffuse non-tender hyperkeratotic tissue noted b/l. VACS: Pedal pulses to PT and DP are palpable graded 2/4. No edema noted, temperature gradient runs warm to cool proximal to distal. NEURO:Grossly diminished bilaterally. ORTHO: 4 major pedal muscle groups are graded +4/5. No pain noted on end ROM for major pedal joints bilaterally. No gross deformities noted. 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 Plan: Pt seen and evaluated at bedside. Chart and vitals reviewed. Discussed pt with attending Dr. Harrington. Performed aseptic onychoreduction to all 10 toenails without incident. Pt is stable form podiatric standpoint. Thank you for this consult and please reconsult as needed for this patient. - Date & Time Date: 01/31/16 Time: 13:30
[2016-02-01] MEDS: Bethanechol 50 MG TAB PO SCH ×3 (09:01→17:21)
--- NOTE | 2016-02-01 20:52 | CP.PCM.PN ---
Subjective - Date & Time of Evaluation Date of Evaluation: 02/01/16 Time of Evaluation: 22:22 - Subjective Subjective: No change in status Objective - Vital Signs/Intake and Output Vital Signs (last 24 hours): Temp Pulse Resp BP Pulse Ox 97.2 F L 81 20 139/84 99 02/01/16 16:37 02/01/16 16:37 02/01/16 16:37 02/01/16 16:37 02/01/16 16:37 - Medications Medications: Current Medications Acetaminophen (Tylenol 325mg Tab) 650 mg PO Q6 PRN PRN Reason: Pain, moderate (4-7) Last Admin: 01/30/16 17:50 Dose: 650 mg Bethanechol Chloride (Urecholine) 50 mg PO TID [facility] Last Admin: 02/01/16 17:21 Dose: 50 mg Carbidopa/Levodopa (Rytary Er 48.75 Mg-195 Mg Cap) 1 cap PO TID@0500,1300,2100 [facility] Last Admin: 02/01/16 12:34 Dose: 1 cap Docusate Sodium (Colace) 100 mg PO BID [facility] Last Admin: 02/01/16 17:21 Dose: 100 mg Fluocinonide (Lidex 0.05% Oint) 1 applic TOP BID [facility] Last Admin: 02/01/16 17:36 Dose: 1 applic Midodrine (Proamatine) 10 mg PO TID [facility] Last Admin: 02/01/16 17:20 Dose: 10 mg Quetiapine Fumarate (Seroquel) 50 mg PO HS PRN PRN Reason: Agitation Last Admin: 01/31/16 22:02 Dose: 50 mg - Labs Labs: 12/03/15 06:30 12/03/15 06:30 - Respiratory Exam Respiratory Exam: NORMAL BREATHING PATTERN - Cardiovascular Exam Cardiovascular Exam: REGULAR RHYTHM - GI/Abdominal Exam GI & Abdominal Exam: Normal Bowel Sounds Assessment and Plan - Assessment and Plan (Free Text) Assessment: Disposition?? 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 ID consult appreciated
[2016-02-02] MEDS: LEVODOPA PO SCH ×3 (05:17→20:55)
[2016-02-02] MEDS: CARBIDOPA PO SCH ×3 (05:17→20:55)
[2016-02-02] MEDS: Bethanechol 50 MG TAB PO SCH ×3 (08:58→16:26)
--- NOTE | 2016-02-02 18:34 | CP.PCM.PN ---
Subjective - Date & Time of Evaluation Date of Evaluation: 02/02/16 Time of Evaluation: 22:22 - Subjective Subjective: doing well Objective - Vital Signs/Intake and Output Vital Signs (last 24 hours): Temp Pulse Resp BP Pulse Ox 97.2 F L 75 20 138/79 94 L 02/02/16 09:00 02/02/16 09:00 02/02/16 09:00 02/02/16 09:00 02/02/16 07:49 - Medications Medications: Current Medications Acetaminophen (Tylenol 325mg Tab) 650 mg PO Q6 PRN PRN Reason: Pain, moderate (4-7) Last Admin: 02/02/16 14:25 Dose: 650 mg Bethanechol Chloride (Urecholine) 50 mg PO TID [facility] Last Admin: 02/02/16 16:26 Dose: 50 mg Carbidopa/Levodopa (Rytary Er 48.75 Mg-195 Mg Cap) 1 cap PO TID@0500,1300,2100 [facility] Last Admin: 02/02/16 12:31 Dose: 1 cap Docusate Sodium (Colace) 100 mg PO BID [facility] Last Admin: 02/02/16 16:24 Dose: 100 mg Fluocinonide (Lidex 0.05% Oint) 1 applic TOP BID [facility] Last Admin: 02/02/16 16:24 Dose: 1 applic Midodrine (Proamatine) 10 mg PO TID [facility] Last Admin: 02/02/16 16:25 Dose: 10 mg Quetiapine Fumarate (Seroquel) 50 mg PO HS PRN PRN Reason: Agitation Last Admin: 02/02/16 08:58 Dose: 50 mg - Labs Labs: 12/03/15 06:30 12/03/15 06:30 - Respiratory Exam Respiratory Exam: NORMAL BREATHING PATTERN - Cardiovascular Exam Cardiovascular Exam: REGULAR RHYTHM - GI/Abdominal Exam GI & Abdominal Exam: Normal Bowel Sounds Assessment and Plan - Assessment and Plan (Free Text) Assessment: Disposition?? 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 ID consult appreciated
[2016-02-03] MEDS: CARBIDOPA PO SCH ×3 (04:58→21:41)
[2016-02-03] MEDS: LEVODOPA PO SCH ×3 (04:58→21:41)
[2016-02-03] MEDS: Bethanechol 50 MG TAB PO SCH ×3 (08:35→16:55)
--- NOTE | 2016-02-03 23:13 | CP.PCM.PN ---
Subjective - Date & Time of Evaluation Date of Evaluation: 02/03/16 Time of Evaluation: 22:22 - Subjective Subjective: Sleeping in bed Objective - Vital Signs/Intake and Output Vital Signs (last 24 hours): Temp Pulse Resp BP Pulse Ox 97.5 F L 65 20 139/66 100 02/03/16 16:40 02/03/16 16:40 02/03/16 16:40 02/03/16 16:40 02/03/16 16:40 - Medications Medications: Current Medications Acetaminophen (Tylenol 325mg Tab) 650 mg PO Q6 PRN PRN Reason: Pain, moderate (4-7) Last Admin: 02/02/16 14:25 Dose: 650 mg Bethanechol Chloride (Urecholine) 50 mg PO TID [facility] Last Admin: 02/03/16 16:55 Dose: 50 mg Carbidopa/Levodopa (Rytary Er 48.75 Mg-195 Mg Cap) 1 cap PO TID@0500,1300,2100 [facility] Last Admin: 02/03/16 21:41 Dose: 1 cap Docusate Sodium (Colace) 100 mg PO BID [facility] Last Admin: 02/03/16 16:55 Dose: 100 mg Fluocinonide (Lidex 0.05% Oint) 1 applic TOP BID [facility] Last Admin: 02/03/16 16:55 Dose: 1 applic Midodrine (Proamatine) 10 mg PO TID [facility] Last Admin: 02/03/16 16:55 Dose: 10 mg Quetiapine Fumarate (Seroquel) 50 mg PO HS PRN PRN Reason: Agitation Last Admin: 02/03/16 21:41 Dose: 50 mg - Labs Labs: 12/03/15 06:30 12/03/15 06:30 - Respiratory Exam Respiratory Exam: NORMAL BREATHING PATTERN - Cardiovascular Exam Cardiovascular Exam: REGULAR RHYTHM - GI/Abdominal Exam GI & Abdominal Exam: Normal Bowel Sounds Assessment and Plan - Assessment and Plan (Free Text) Assessment: Disposition?? 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 ID consult appreciated
[2016-02-04] MEDS: CARBIDOPA PO SCH ×3 (04:54→20:40)
[2016-02-04] MEDS: LEVODOPA PO SCH ×3 (04:54→20:40)
[2016-02-04] MEDS: Bethanechol 50 MG TAB PO SCH ×3 (09:58→17:14)
--- NOTE | 2016-02-04 16:33 | CP.PCM.PN ---
Subjective - Date & Time of Evaluation Date of Evaluation: 02/04/16 Time of Evaluation: 22:22 - Subjective Subjective: Doing well Sitting in chair Objective - Vital Signs/Intake and Output Vital Signs (last 24 hours): Temp Pulse Resp BP Pulse Ox 97 F L 75 18 118/71 97 02/04/16 09:00 02/04/16 09:00 02/04/16 09:00 02/04/16 09:00 02/04/16 09:00 - Medications Medications: Current Medications Acetaminophen (Tylenol 325mg Tab) 650 mg PO Q6 PRN PRN Reason: Pain, moderate (4-7) Last Admin: 02/02/16 14:25 Dose: 650 mg Bethanechol Chloride (Urecholine) 50 mg PO TID [facility] Last Admin: 02/04/16 13:16 Dose: 50 mg Carbidopa/Levodopa (Rytary Er 48.75 Mg-195 Mg Cap) 1 cap PO TID@0500,1300,2100 [facility] Last Admin: 02/04/16 13:16 Dose: 1 cap Docusate Sodium (Colace) 100 mg PO BID [facility] Last Admin: 02/04/16 09:58 Dose: 100 mg Fluocinonide (Lidex 0.05% Oint) 1 applic TOP BID [facility] Last Admin: 02/04/16 09:57 Dose: 1 applic Midodrine (Proamatine) 10 mg PO TID [facility] Last Admin: 02/04/16 13:16 Dose: 10 mg Quetiapine Fumarate (Seroquel) 50 mg PO HS PRN PRN Reason: Agitation Last Admin: 02/03/16 21:41 Dose: 50 mg - Labs Labs: 12/03/15 06:30 12/03/15 06:30 - Respiratory Exam Respiratory Exam: NORMAL BREATHING PATTERN - Cardiovascular Exam Cardiovascular Exam: REGULAR RHYTHM - GI/Abdominal Exam GI & Abdominal Exam: Normal Bowel Sounds Assessment and Plan - Assessment and Plan (Free Text) Assessment: Disposition?? 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 ID consult appreciated
[2016-02-05] MEDS: LEVODOPA PO SCH ×3 (05:00→20:01)
[2016-02-05] MEDS: CARBIDOPA PO SCH ×3 (05:00→20:01)
[2016-02-05] MEDS: Bethanechol 50 MG TAB PO SCH ×3 (09:15→16:14)
--- NOTE | 2016-02-05 21:50 | CP.PCM.PN ---
Subjective - Date & Time of Evaluation Date of Evaluation: 02/05/16 Time of Evaluation: 22:22 - Subjective Subjective: Sleeping Objective - Vital Signs/Intake and Output Vital Signs (last 24 hours): Temp Pulse Resp BP Pulse Ox 96.3 F L 90 20 120/68 95 02/05/16 15:31 02/05/16 15:31 02/05/16 15:31 02/05/16 15:31 02/05/16 15:31 - Medications Medications: Current Medications Acetaminophen (Tylenol 325mg Tab) 650 mg PO Q6 PRN PRN Reason: Pain, moderate (4-7) Last Admin: 02/02/16 14:25 Dose: 650 mg Bethanechol Chloride (Urecholine) 50 mg PO TID [facility] Last Admin: 02/05/16 16:14 Dose: 50 mg Carbidopa/Levodopa (Rytary Er 48.75 Mg-195 Mg Cap) 1 cap PO TID@0500,1300,2100 [facility] Last Admin: 02/05/16 20:01 Dose: 1 cap Docusate Sodium (Colace) 100 mg PO BID [facility] Last Admin: 02/05/16 16:14 Dose: 100 mg Fluocinonide (Lidex 0.05% Oint) 1 applic TOP BID [facility] Last Admin: 02/05/16 16:14 Dose: 1 applic Midodrine (Proamatine) 10 mg PO TID [facility] Last Admin: 02/05/16 16:14 Dose: 10 mg Quetiapine Fumarate (Seroquel) 50 mg PO HS PRN PRN Reason: Agitation Last Admin: 02/05/16 20:01 Dose: 50 mg - Labs Labs: 12/03/15 06:30 12/03/15 06:30 - Respiratory Exam Respiratory Exam: NORMAL BREATHING PATTERN - Cardiovascular Exam Cardiovascular Exam: REGULAR RHYTHM - GI/Abdominal Exam GI & Abdominal Exam: Normal Bowel Sounds Assessment and Plan - Assessment and Plan (Free Text) Assessment: Disposition?? 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 ID consult appreciated
[2016-02-06] MEDS: CARBIDOPA PO SCH ×3 (04:00→21:09)
[2016-02-06] MEDS: LEVODOPA PO SCH ×3 (04:00→21:09)
[2016-02-06] MEDS: Bethanechol 50 MG TAB PO SCH ×2 (13:05→16:30)
--- NOTE | 2016-02-06 21:02 | CP.PCM.PN ---
Subjective - Date & Time of Evaluation Date of Evaluation: 02/06/16 Time of Evaluation: 22:22 - Subjective Subjective: c/o shoulder and elbow pain Objective - Vital Signs/Intake and Output Vital Signs (last 24 hours): Temp Pulse Resp BP Pulse Ox 97.6 F 80 19 144/62 96 02/06/16 16:21 02/06/16 16:21 02/06/16 16:21 02/06/16 16:21 02/06/16 16:21 - Medications Medications: Current Medications Acetaminophen (Tylenol 325mg Tab) 650 mg PO Q6 PRN PRN Reason: Pain, moderate (4-7) Last Admin: 02/02/16 14:25 Dose: 650 mg Bethanechol Chloride (Urecholine) 50 mg PO TID [facility] Last Admin: 02/06/16 16:30 Dose: 50 mg Carbidopa/Levodopa (Rytary Er 48.75 Mg-195 Mg Cap) 1 cap PO TID@0500,1300,2100 [facility] Last Admin: 02/06/16 13:05 Dose: 1 cap Docusate Sodium (Colace) 100 mg PO BID [facility] Last Admin: 02/06/16 16:29 Dose: 100 mg Fluocinonide (Lidex 0.05% Oint) 1 applic TOP BID [facility] Last Admin: 02/06/16 16:29 Dose: 1 applic Midodrine (Proamatine) 10 mg PO TID [facility] Last Admin: 02/06/16 16:30 Dose: 10 mg Quetiapine Fumarate (Seroquel) 50 mg PO HS PRN PRN Reason: Agitation - Labs Labs: 12/03/15 06:30 12/03/15 06:30 - Respiratory Exam Respiratory Exam: NORMAL BREATHING PATTERN - Cardiovascular Exam Cardiovascular Exam: REGULAR RHYTHM - GI/Abdominal Exam GI & Abdominal Exam: Normal Bowel Sounds Assessment and Plan - Assessment and Plan (Free Text) Assessment: R shoulder pain Hx Dislocation xrays PT Disposition?? 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 ID consult appreciated
[2016-02-07] MEDS: CARBIDOPA PO SCH ×3 (04:07→20:53)
[2016-02-07] MEDS: LEVODOPA PO SCH ×3 (04:07→20:53)
[2016-02-07] MEDS: Bethanechol 50 MG TAB PO SCH ×3 (08:35→17:13)
--- NOTE | 2016-02-07 13:09 | RAD ---
PROCEDURE: Radiographs of the Right Shoulder HISTORY: pain COMPARISON: 12/02/2015 FINDINGS: BONES: Limited examination due to single view. No evidence of fracture. 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 JOINTS: As above SOFT TISSUES: Normal. OTHER FINDINGS: None. IMPRESSION: Superior subluxation of humeral head. No dislocation. 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 No significant change from 12/02/2015.
--- NOTE | 2016-02-07 13:10 | RAD ---
PROCEDURE: Radiographs of the right elbow. HISTORY: pain COMPARISON: No prior. FINDINGS: BONES: Normal. No fracture. JOINTS: Normal. No osteoarthritis. SOFT TISSUES: Normal. JOINT EFFUSION: None. OTHER FINDINGS: None. IMPRESSION: Unremarkable radiographs of the right elbow.
[2016-02-08] MEDS: LEVODOPA PO SCH ×3 (04:58→21:01)
[2016-02-08] MEDS: CARBIDOPA PO SCH ×3 (04:58→21:01)
[2016-02-08] MEDS: Bethanechol 50 MG TAB PO SCH ×3 (09:36→17:45)
--- NOTE | 2016-02-08 21:12 | CP.PCM.PN ---
Subjective - Date & Time of Evaluation Date of Evaluation: 02/07/16 Time of Evaluation: 22:22 - Subjective Subjective: Resting in bed Xrays no change Objective - Vital Signs/Intake and Output Vital Signs (last 24 hours): Temp Pulse Resp BP Pulse Ox 97.1 F L 76 20 142/64 98 02/08/16 08:50 02/08/16 08:50 02/08/16 08:50 02/08/16 08:50 02/08/16 08:50 - Medications Medications: Current Medications Acetaminophen (Tylenol 325mg Tab) 650 mg PO Q6 PRN PRN Reason: Pain, moderate (4-7) Last Admin: 02/02/16 14:25 Dose: 650 mg Bethanechol Chloride (Urecholine) 50 mg PO TID [facility] Last Admin: 02/08/16 17:45 Dose: 50 mg Carbidopa/Levodopa (Rytary Er 48.75 Mg-195 Mg Cap) 1 cap PO TID@0500,1300,2100 [facility] Last Admin: 02/08/16 21:01 Dose: 1 cap Docusate Sodium (Colace) 100 mg PO BID [facility] Last Admin: 02/08/16 17:46 Dose: 100 mg Fluocinonide (Lidex 0.05% Oint) 1 applic TOP BID [facility] Last Admin: 02/08/16 17:45 Dose: 1 applic Midodrine (Proamatine) 10 mg PO TID [facility] Last Admin: 02/08/16 17:45 Dose: 10 mg Quetiapine Fumarate (Seroquel) 50 mg PO HS PRN PRN Reason: Agitation Last Admin: 02/06/16 21:10 Dose: 50 mg - Labs Labs: 12/03/15 06:30 12/03/15 06:30 - Respiratory Exam Respiratory Exam: NORMAL BREATHING PATTERN - Cardiovascular Exam Cardiovascular Exam: REGULAR RHYTHM - GI/Abdominal Exam GI & Abdominal Exam: Normal Bowel Sounds Assessment and Plan - Assessment and Plan (Free Text) Assessment: R shoulder pain xrays subluxation Disposition?? 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 ID consult appreciated
--- NOTE | 2016-02-08 21:14 | CP.PCM.PN ---
Subjective - Date & Time of Evaluation Date of Evaluation: 02/08/16 Time of Evaluation: 22:22 - Subjective Subjective: no change Objective - Vital Signs/Intake and Output Vital Signs (last 24 hours): Temp Pulse Resp BP Pulse Ox 97.1 F L 76 20 142/64 98 02/08/16 08:50 02/08/16 08:50 02/08/16 08:50 02/08/16 08:50 02/08/16 08:50 - Medications Medications: Current Medications Acetaminophen (Tylenol 325mg Tab) 650 mg PO Q6 PRN PRN Reason: Pain, moderate (4-7) Last Admin: 02/02/16 14:25 Dose: 650 mg Bethanechol Chloride (Urecholine) 50 mg PO TID [facility] Last Admin: 02/08/16 17:45 Dose: 50 mg Carbidopa/Levodopa (Rytary Er 48.75 Mg-195 Mg Cap) 1 cap PO TID@0500,1300,2100 [facility] Last Admin: 02/08/16 21:01 Dose: 1 cap Docusate Sodium (Colace) 100 mg PO BID [facility] Last Admin: 02/08/16 17:46 Dose: 100 mg Fluocinonide (Lidex 0.05% Oint) 1 applic TOP BID [facility] Last Admin: 02/08/16 17:45 Dose: 1 applic Midodrine (Proamatine) 10 mg PO TID [facility] Last Admin: 02/08/16 17:45 Dose: 10 mg Quetiapine Fumarate (Seroquel) 50 mg PO HS PRN PRN Reason: Agitation Last Admin: 02/06/16 21:10 Dose: 50 mg - Labs Labs: 12/03/15 06:30 12/03/15 06:30 - Respiratory Exam Respiratory Exam: NORMAL BREATHING PATTERN - Cardiovascular Exam Cardiovascular Exam: REGULAR RHYTHM - GI/Abdominal Exam GI & Abdominal Exam: Normal Bowel Sounds Assessment and Plan - Assessment and Plan (Free Text) Assessment: R shoulder pain xrays subluxation Disposition?? 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 ID consult appreciated
[2016-02-09] MEDS: LEVODOPA PO SCH ×3 (05:28→20:57)
[2016-02-09] MEDS: CARBIDOPA PO SCH ×3 (05:28→20:57)
[2016-02-09] MEDS: Bethanechol 50 MG TAB PO SCH ×3 (08:16→17:28)
--- NOTE | 2016-02-09 18:33 | CP.PCM.PN ---
Subjective - Date & Time of Evaluation Date of Evaluation: 02/09/16 Time of Evaluation: 22:22 - Subjective Subjective: Constipation Objective - Vital Signs/Intake and Output Vital Signs (last 24 hours): Temp Pulse Resp BP Pulse Ox 97.2 F L 70 20 133/79 100 02/09/16 16:48 02/09/16 16:48 02/09/16 16:48 02/09/16 16:48 02/09/16 16:48 - Medications Medications: Current Medications Acetaminophen (Tylenol 325mg Tab) 650 mg PO Q6 PRN PRN Reason: Pain, Mild (1-3) Last Admin: 02/09/16 17:50 Dose: 650 mg Bethanechol Chloride (Urecholine) 50 mg PO TID [facility] Last Admin: 02/09/16 17:28 Dose: 50 mg Carbidopa/Levodopa (Rytary Er 48.75 Mg-195 Mg Cap) 1 cap PO TID@0500,1300,2100 [facility] Last Admin: 02/09/16 14:18 Dose: 1 cap Docusate Sodium (Colace) 100 mg PO BID [facility] Last Admin: 02/09/16 17:28 Dose: 100 mg Fluocinonide (Lidex 0.05% Oint) 1 applic TOP BID [facility] Last Admin: 02/09/16 17:28 Dose: 1 applic Magnesium Hydroxide (Milk Of Magnesia) 30 ml PO DAILY PRN PRN Reason: Constipation Midodrine (Proamatine) 10 mg PO TID [facility] Last Admin: 02/09/16 17:28 Dose: 10 mg Quetiapine Fumarate (Seroquel) 50 mg PO HS PRN PRN Reason: Agitation Last Admin: 02/06/16 21:10 Dose: 50 mg - Labs Labs: 12/03/15 06:30 12/03/15 06:30 - Respiratory Exam Respiratory Exam: NORMAL BREATHING PATTERN - Cardiovascular Exam Cardiovascular Exam: REGULAR RHYTHM - GI/Abdominal Exam GI & Abdominal Exam: Normal Bowel Sounds Assessment and Plan - Assessment and Plan (Free Text) Assessment: Constipationn R shoulder pain xrays subluxation Disposition?? 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 ID consult appreciated
[2016-02-10] MEDS: CARBIDOPA PO SCH ×3 (05:59→20:02)
[2016-02-10] MEDS: LEVODOPA PO SCH ×3 (05:59→20:02)
[2016-02-10] MEDS: Bethanechol 50 MG TAB PO SCH ×3 (08:52→17:07)
[2016-02-11] MEDS: LEVODOPA PO SCH ×3 (05:42→20:57)
[2016-02-11] MEDS: CARBIDOPA PO SCH ×3 (05:42→20:57)
[2016-02-11] MEDS: Bethanechol 50 MG TAB PO SCH ×3 (08:26→16:29)
[2016-02-12] MEDS: CARBIDOPA PO SCH ×3 (04:46→21:45)
[2016-02-12] MEDS: LEVODOPA PO SCH ×3 (04:46→21:45)
[2016-02-12] MEDS: Bethanechol 50 MG TAB PO SCH ×3 (08:35→16:11)
--- NOTE | 2016-02-12 20:35 | CP.PCM.PN ---
Subjective - Date & Time of Evaluation Date of Evaluation: 02/12/16 Time of Evaluation: 22:22 - Subjective Subjective: Sitting in bed Objective - Vital Signs/Intake and Output Vital Signs (last 24 hours): Temp Pulse Resp BP Pulse Ox 97.2 F L 71 20 122/59 L 100 02/12/16 16:40 02/12/16 16:40 02/12/16 16:40 02/12/16 16:40 02/12/16 16:40 - Medications Medications: Current Medications Acetaminophen (Tylenol 325mg Tab) 650 mg PO Q6 PRN PRN Reason: Pain, Mild (1-3) Last Admin: 02/12/16 15:31 Dose: 650 mg Bethanechol Chloride (Urecholine) 50 mg PO TID [facility] Last Admin: 02/12/16 16:11 Dose: 50 mg Carbidopa/Levodopa (Rytary Er 48.75 Mg-195 Mg Cap) 1 cap PO TID@0500,1300,2100 [facility] Last Admin: 02/12/16 12:23 Dose: 1 cap Docusate Sodium (Colace) 100 mg PO BID [facility] Last Admin: 02/12/16 16:11 Dose: 100 mg Fluocinonide (Lidex 0.05% Oint) 1 applic TOP BID [facility] Last Admin: 02/12/16 16:11 Dose: 1 applic Magnesium Hydroxide (Milk Of Magnesia) 30 ml PO DAILY PRN PRN Reason: Constipation Midodrine (Proamatine) 10 mg PO TID [facility] Last Admin: 02/12/16 16:11 Dose: 10 mg Quetiapine Fumarate (Seroquel) 50 mg PO HS PRN PRN Reason: Agitation Last Admin: 02/06/16 21:10 Dose: 50 mg - Labs Labs: 12/03/15 06:30 12/03/15 06:30 - Respiratory Exam Respiratory Exam: NORMAL BREATHING PATTERN - Cardiovascular Exam Cardiovascular Exam: REGULAR RHYTHM - GI/Abdominal Exam GI & Abdominal Exam: Normal Bowel Sounds Assessment and Plan - Assessment and Plan (Free Text) Assessment: Constipation Improved R shoulder pain xrays subluxation Disposition?? 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 ID consult appreciated
[2016-02-13] MEDS: LEVODOPA PO SCH ×3 (04:44→20:51)
[2016-02-13] MEDS: CARBIDOPA PO SCH ×3 (04:44→20:51)
[2016-02-13] MEDS: Bethanechol 50 MG TAB PO SCH ×3 (08:32→16:12)
--- NOTE | 2016-02-13 21:18 | CP.PCM.PN ---
Subjective - Date & Time of Evaluation Date of Evaluation: 02/13/16 Time of Evaluation: 22:22 - Subjective Subjective: Resting in bed Objective - Vital Signs/Intake and Output Vital Signs (last 24 hours): Temp Pulse Resp BP Pulse Ox 97.5 F L 72 20 117/69 95 02/13/16 16:38 02/13/16 16:38 02/13/16 16:38 02/13/16 16:38 02/13/16 16:38 - Medications Medications: Current Medications Acetaminophen (Tylenol 325mg Tab) 650 mg PO Q6 PRN PRN Reason: Pain, Mild (1-3) Last Admin: 02/12/16 15:31 Dose: 650 mg Bethanechol Chloride (Urecholine) 50 mg PO TID [facility] Last Admin: 02/13/16 16:12 Dose: 50 mg Carbidopa/Levodopa (Rytary Er 48.75 Mg-195 Mg Cap) 1 cap PO TID@0500,1300,2100 [facility] Last Admin: 02/13/16 20:51 Dose: 1 cap Docusate Sodium (Colace) 100 mg PO BID [facility] Last Admin: 02/13/16 16:11 Dose: 100 mg Fluocinonide (Lidex 0.05% Oint) 1 applic TOP BID [facility] Last Admin: 02/13/16 16:11 Dose: 1 applic Magnesium Hydroxide (Milk Of Magnesia) 30 ml PO DAILY PRN PRN Reason: Constipation Midodrine (Proamatine) 10 mg PO TID [facility] Last Admin: 02/13/16 16:11 Dose: 10 mg Quetiapine Fumarate (Seroquel) 50 mg PO HS PRN PRN Reason: Agitation Last Admin: 02/12/16 21:46 Dose: 50 mg - Labs Labs: 12/03/15 06:30 12/03/15 06:30 - Respiratory Exam Respiratory Exam: NORMAL BREATHING PATTERN - Cardiovascular Exam Cardiovascular Exam: REGULAR RHYTHM - GI/Abdominal Exam GI & Abdominal Exam: Normal Bowel Sounds Assessment and Plan - Assessment and Plan (Free Text) Assessment: Disposition?? 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 ID consult appreciated
[2016-02-14] MEDS: CARBIDOPA PO SCH ×3 (05:18→20:35)
[2016-02-14] MEDS: LEVODOPA PO SCH ×3 (05:18→20:35)
[2016-02-14] MEDS: Bethanechol 50 MG TAB PO SCH ×2 (10:25→16:41)
--- NOTE | 2016-02-14 18:33 | CP.PCM.PN ---
Subjective - Date & Time of Evaluation Date of Evaluation: 02/14/16 Time of Evaluation: 22:22 - Subjective Subjective: Above noted Objective - Vital Signs/Intake and Output Vital Signs (last 24 hours): Temp Pulse Resp BP Pulse Ox 98.2 F 72 19 158/97 H 99 02/14/16 16:51 02/14/16 16:51 02/14/16 16:51 02/14/16 16:51 02/14/16 16:51 - Medications Medications: Current Medications Acetaminophen (Tylenol 325mg Tab) 650 mg PO Q6 PRN PRN Reason: Pain, Mild (1-3) Last Admin: 02/14/16 10:20 Dose: 650 mg Bethanechol Chloride (Urecholine) 50 mg PO TID [facility] Last Admin: 02/14/16 16:41 Dose: 50 mg Carbidopa/Levodopa (Rytary Er 48.75 Mg-195 Mg Cap) 1 cap PO TID@0500,1300,2100 [facility] Last Admin: 02/14/16 13:22 Dose: 1 cap Docusate Sodium (Colace) 100 mg PO BID [facility] Last Admin: 02/14/16 16:40 Dose: 100 mg Fluocinonide (Lidex 0.05% Oint) 1 applic TOP BID [facility] Last Admin: 02/14/16 16:40 Dose: 1 applic Magnesium Hydroxide (Milk Of Magnesia) 30 ml PO DAILY PRN PRN Reason: Constipation Midodrine (Proamatine) 10 mg PO TID [facility] Last Admin: 02/14/16 16:41 Dose: 10 mg Quetiapine Fumarate (Seroquel) 50 mg PO HS PRN PRN Reason: Agitation Last Admin: 02/13/16 22:07 Dose: 50 mg - Labs Labs: 12/03/15 06:30 12/03/15 06:30 - Respiratory Exam Respiratory Exam: NORMAL BREATHING PATTERN - Cardiovascular Exam Cardiovascular Exam: REGULAR RHYTHM - GI/Abdominal Exam GI & Abdominal Exam: Normal Bowel Sounds Assessment and Plan - Assessment and Plan (Free Text) Assessment: Disposition?? 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 ID consult appreciated
[2016-02-15] MEDS: CARBIDOPA PO SCH ×3 (05:11→22:00)
[2016-02-15] MEDS: LEVODOPA PO SCH ×3 (05:11→22:00)
[2016-02-15] MEDS: Bethanechol 50 MG TAB PO SCH ×3 (08:43→16:24)
--- NOTE | 2016-02-15 15:53 | CP.PCM.PN ---
Subjective - Date & Time of Evaluation Date of Evaluation: 02/15/16 Time of Evaluation: 22:22 - Subjective Subjective: No change in status Objective - Vital Signs/Intake and Output Vital Signs (last 24 hours): Temp Pulse Resp BP Pulse Ox 97.8 F 73 20 139/76 98 02/15/16 07:29 02/15/16 07:29 02/15/16 07:29 02/15/16 07:29 02/15/16 07:29 - Medications Medications: Current Medications Acetaminophen (Tylenol 325mg Tab) 650 mg PO Q6 PRN PRN Reason: Pain, Mild (1-3) Last Admin: 02/15/16 13:06 Dose: 650 mg Bethanechol Chloride (Urecholine) 50 mg PO TID [facility] Last Admin: 02/15/16 12:39 Dose: 50 mg Carbidopa/Levodopa (Rytary Er 48.75 Mg-195 Mg Cap) 1 cap PO TID@0500,1300,2100 [facility] Last Admin: 02/15/16 12:39 Dose: 1 cap Docusate Sodium (Colace) 100 mg PO BID [facility] Last Admin: 02/15/16 08:42 Dose: 100 mg Fluocinonide (Lidex 0.05% Oint) 1 applic TOP BID [facility] Last Admin: 02/15/16 08:41 Dose: 1 applic Magnesium Hydroxide (Milk Of Magnesia) 30 ml PO DAILY PRN PRN Reason: Constipation Midodrine (Proamatine) 10 mg PO TID [facility] Last Admin: 02/15/16 12:39 Dose: 10 mg Quetiapine Fumarate (Seroquel) 50 mg PO HS PRN PRN Reason: Agitation Last Admin: 02/13/16 22:07 Dose: 50 mg - Labs Labs: 12/03/15 06:30 12/03/15 06:30 - Respiratory Exam Respiratory Exam: NORMAL BREATHING PATTERN - Cardiovascular Exam Cardiovascular Exam: REGULAR RHYTHM - GI/Abdominal Exam GI & Abdominal Exam: Normal Bowel Sounds Assessment and Plan - Assessment and Plan (Free Text) Assessment: Disposition?? 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 ID consult appreciated
[2016-02-16] MEDS: CARBIDOPA PO SCH ×3 (05:58→21:08)
[2016-02-16] MEDS: LEVODOPA PO SCH ×3 (05:58→21:08)
[2016-02-16] MEDS: Bethanechol 50 MG TAB PO SCH ×3 (08:47→16:21)
--- NOTE | 2016-02-16 09:10 | PN ---
DATE: 02/16/2016 The patient seen for Dr. Faisal Cornejo who has week away. The patient is awake, responsive. Feels okay . No specific medical complaint. No chest pain or shortness of breath. No specific issue reported by nursing staff. PHYSICAL EXAMINATION: GENERAL: The patient is in no acute distress. VITAL SIGNS: Stable. HEART: S1, S2 normal, regular. LUNGS: Good bilateral air exchange. ABDOMEN: Soft, nontender. EXTREMITIES: No edema, no calf swelling, no tenderness, no acute ischemia. CENTRAL NERVOUS SYSTEM: Essentially unchanged. DIAGNOSTIC DATA: Available diagnostic data reviewed. Overall, patient's general medical condition is stable. PLAN: As ordered. Rashaun Mendoza MD cc: [id number] TT: 02/16/2016 09:09:43 Confirmation # [id number] Dictation # [id number] richard
[2016-02-17] MEDS: CARBIDOPA PO SCH ×3 (05:35→20:51)
[2016-02-17] MEDS: LEVODOPA PO SCH ×3 (05:35→20:51)
[2016-02-17] MEDS: Bethanechol 50 MG TAB PO SCH ×3 (08:15→16:19)
--- NOTE | 2016-02-17 10:20 | PN ---
DATE: 02/17/2016 SUBJECTIVE: The patient seen and examined. The patient seen by Dr. Cornejo while he . The pat ient is awake, responsive, feels okay. No specific medical complaint. Nursing staff also did not re port any significant medical issue. PHYSICAL EXAMINATION: GENERAL: The patient is in no acute distress. VITAL SIGNS: Stable. Physical examination is essentially unchanged. DIAGNOSTIC DATA: Available diagnostic data reviewed. Overall, patient's general medical condition is stable. PLAN: As ordered. Rashaun Mendoza MD cc: [id number] TT: 02/17/2016 10:19:30 Confirmation # [id number] Dictation # [id number] ln
[2016-02-18] MEDS: LEVODOPA PO SCH ×3 (05:50→21:07)
[2016-02-18] MEDS: CARBIDOPA PO SCH ×3 (05:50→21:07)
[2016-02-18] MEDS: Bethanechol 50 MG TAB PO SCH ×3 (09:55→16:51)
--- NOTE | 2016-02-18 11:50 | PN ---
DATE: 02/18/2016 The patient is seen and examined. Interim events noted. The patient remains in medical floor. The patient feels okay. No specific complaints. No chest pain, no shortness of breath. PHYSICAL EXAMINATION: GENERAL: The patient is in no acute distress. VITAL SIGNS: Stable. Physical exam is essentially unchanged. DIAGNOSTIC DATA: Available diagnostic data reviewed. Overall, the patient's general medical condition is stable. We will order some labs to evaluate the patient's kidney and liver functions. PLAN: As ordered. Rashaun Mendoza MD cc: [id number] TT: 02/18/2016 11:49:13 Confirmation # [id number] Dictation # [id number] jn
[2016-02-19] MEDS: CARBIDOPA PO SCH ×3 (06:16→20:36)
[2016-02-19] MEDS: LEVODOPA PO SCH ×3 (06:16→20:36)
[2016-02-19 07:00] LABS: HEMOGLOBIN 12.2 g/dL (12.0-18.0); MEAN CELL VOLUME 91.8 fl (80.0-94.0); MEAN CORPUSCULAR HEMOGLOBIN 29.9 pg (27.0-31.0); MEAN CORPUSCULAR HGB CONC 32.6 g/dL (33.0-37.0); RBC 4.09 Mil/uL (4.40-5.90); RED CELL DISTRIBUTION WIDTH 15.4 % (11.5-14.5); WHITE BLOOD COUNT 5.4 K/uL (4.8-10.8)
[2016-02-19 07:28] LABS: ALB/GLOB RATIO 1.1 (1.0-2.1); ALBUMIN 3.8 g/dL (3.5-5.0); ALT/SGPT 9 U/L (21-72); AST/SGOT 27 U/L (17-59); BLOOD UREA NITROGEN 27 mg/dl (9-20); CALCIUM 9.5 mg/dL (8.4-10.2); GFR AFRICAN-AMERICAN > 60; GFR NON-AFRICAN AMERICAN > 60
[2016-02-19] MEDS: Bethanechol 50 MG TAB PO SCH ×3 (08:59→16:39)
--- NOTE | 2016-02-19 09:05 | PN ---
DATE: 02/19/2016 SUBJECTIVE: The patient seen and examined. Interim events noted. The patient remains in regular nd dical floor. The patient feels okay. No specific ____ complaints. PHYSICAL EXAMINATION: GENERAL: The patient is in no acute distress. VITAL SIGNS: Stable. HEART: S1, S2 normal, regular. LUNGS: Good bilateral air exchange. ABDOMEN: Soft, nontender. DIAGNOSTIC DATA: Available diagnostic data reviewed. CBC is acceptable. Chemistry is pending. Overall, the patient is medically stable. PLAN: As ordered. Rashaun Mendoza MD cc: [id number] TT: 02/19/2016 09:04:34 Confirmation # [id number] Dictation # [id number] sn
[2016-02-20] MEDS: CARBIDOPA PO SCH ×3 (04:37→20:37)
[2016-02-20] MEDS: LEVODOPA PO SCH ×3 (04:37→20:37)
[2016-02-20] MEDS: Bethanechol 50 MG TAB PO SCH ×3 (08:22→16:18)
--- NOTE | 2016-02-20 21:09 | CP.PCM.PN ---
Subjective - Date & Time of Evaluation Date of Evaluation: 02/20/16 Time of Evaluation: 22:22 - Subjective Subjective: Doing well Labs okay Objective - Vital Signs/Intake and Output Vital Signs (last 24 hours): Temp Pulse Resp BP Pulse Ox 97.9 F 76 20 121/71 99 02/20/16 16:13 02/20/16 16:13 02/20/16 16:13 02/20/16 16:13 02/20/16 16:13 - Medications Medications: Current Medications Acetaminophen (Tylenol 325mg Tab) 650 mg PO Q6 PRN PRN Reason: Pain, Mild (1-3) Last Admin: 02/15/16 13:06 Dose: 650 mg Bethanechol Chloride (Urecholine) 50 mg PO TID [facility] Last Admin: 02/20/16 16:18 Dose: 50 mg Carbidopa/Levodopa (Rytary Er 48.75 Mg-195 Mg Cap) 1 cap PO TID@0500,1300,2100 [facility] Last Admin: 02/20/16 20:37 Dose: 1 cap Docusate Sodium (Colace) 100 mg PO BID [facility] Last Admin: 02/20/16 16:18 Dose: 100 mg Fluocinonide (Lidex 0.05% Oint) 1 applic TOP BID [facility] Last Admin: 02/20/16 16:18 Dose: 1 applic Magnesium Hydroxide (Milk Of Magnesia) 30 ml PO DAILY PRN PRN Reason: Constipation Midodrine (Proamatine) 10 mg PO TID [facility] Last Admin: 02/20/16 16:18 Dose: 10 mg Quetiapine Fumarate (Seroquel) 50 mg PO HS PRN PRN Reason: Agitation Last Admin: 02/19/16 20:36 Dose: 50 mg - Labs Labs: 02/19/16 05:10 02/19/16 05:10 - Respiratory Exam Respiratory Exam: NORMAL BREATHING PATTERN - Cardiovascular Exam Cardiovascular Exam: REGULAR RHYTHM - GI/Abdominal Exam GI & Abdominal Exam: Normal Bowel Sounds Assessment and Plan - Assessment and Plan (Free Text) Assessment: Disposition?? 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 ID consult appreciated
[2016-02-21] MEDS: CARBIDOPA PO SCH ×3 (06:02→21:05)
[2016-02-21] MEDS: LEVODOPA PO SCH ×3 (06:02→21:05)
[2016-02-21] MEDS: Bethanechol 50 MG TAB PO SCH ×3 (08:23→16:04)
--- NOTE | 2016-02-21 19:24 | CP.PCM.PN ---
Subjective - Date & Time of Evaluation Date of Evaluation: 02/21/16 Time of Evaluation: 22:22 - Subjective Subjective: Sitting in bed Objective - Vital Signs/Intake and Output Vital Signs (last 24 hours): Temp Pulse Resp BP Pulse Ox 97.5 F L 62 20 146/80 95 02/21/16 16:57 02/21/16 16:57 02/21/16 16:57 02/21/16 16:57 02/21/16 16:57 - Medications Medications: Current Medications Acetaminophen (Tylenol 325mg Tab) 650 mg PO Q6 PRN PRN Reason: Pain, Mild (1-3) Last Admin: 02/15/16 13:06 Dose: 650 mg Bethanechol Chloride (Urecholine) 50 mg PO TID [facility] Last Admin: 02/21/16 16:04 Dose: 50 mg Carbidopa/Levodopa (Rytary Er 48.75 Mg-195 Mg Cap) 1 cap PO TID@0500,1300,2100 [facility] Last Admin: 02/21/16 12:04 Dose: 1 cap Docusate Sodium (Colace) 100 mg PO BID [facility] Last Admin: 02/21/16 16:03 Dose: 100 mg Fluocinonide (Lidex 0.05% Oint) 1 applic TOP BID [facility] Last Admin: 02/21/16 16:03 Dose: 1 applic Magnesium Hydroxide (Milk Of Magnesia) 30 ml PO DAILY PRN PRN Reason: Constipation Midodrine (Proamatine) 10 mg PO TID [facility] Last Admin: 02/21/16 16:03 Dose: 10 mg Quetiapine Fumarate (Seroquel) 50 mg PO HS PRN PRN Reason: Agitation Last Admin: 02/19/16 20:36 Dose: 50 mg - Labs Labs: 02/19/16 05:10 02/19/16 05:10 - Respiratory Exam Respiratory Exam: NORMAL BREATHING PATTERN - Cardiovascular Exam Cardiovascular Exam: REGULAR RHYTHM - GI/Abdominal Exam GI & Abdominal Exam: Normal Bowel Sounds Assessment and Plan - Assessment and Plan (Free Text) Assessment: Disposition?? awaiting transfer to [place] Pt is competent Social service and family involved Pt is [place] MSA Parkinson Dx Shry Drager PT Rytary Midodrine Constipation Improved R shoulder pain xrays subluxation Anemia normochromic normocytic 2 to chronic dx Decubitus ulcer buttocks DVT prophylaxis SCD (no Lovenox due to thrombocytopenia) S/P UTI Enterrococus S/P Urinary retention S/P UTI Proteus S/P Pnuemonia S/P Hypotension SKIVER SOCK LININGS 2 to Dehydration Meds L shoulder pain x rays neg RLE rash Dermatiis vs cellulitis?? ID consult appreciated
[2016-02-22] MEDS: CARBIDOPA PO SCH ×3 (04:52→21:18)
[2016-02-22] MEDS: LEVODOPA PO SCH ×3 (04:52→21:18)
[2016-02-22] MEDS: Bethanechol 50 MG TAB PO SCH ×3 (09:14→16:06)
--- NOTE | 2016-02-22 20:20 | CP.PCM.PN ---
Subjective - Date & Time of Evaluation Date of Evaluation: 02/22/16 Time of Evaluation: 22:22 - Subjective Subjective: Above noted Objective - Vital Signs/Intake and Output Vital Signs (last 24 hours): Temp Pulse Resp BP Pulse Ox 97.4 F L 89 19 130/84 99 02/22/16 17:00 02/22/16 17:00 02/22/16 17:00 02/22/16 17:00 02/22/16 17:00 - Medications Medications: Current Medications Acetaminophen (Tylenol 325mg Tab) 650 mg PO Q6 PRN PRN Reason: Pain, Mild (1-3) Last Admin: 02/15/16 13:06 Dose: 650 mg Bethanechol Chloride (Urecholine) 50 mg PO TID [facility] Last Admin: 02/22/16 16:06 Dose: 50 mg Carbidopa/Levodopa (Rytary Er 48.75 Mg-195 Mg Cap) 1 cap PO TID@0500,1300,2100 [facility] Last Admin: 02/22/16 12:22 Dose: 1 cap Docusate Sodium (Colace) 100 mg PO BID [facility] Last Admin: 02/22/16 16:06 Dose: Not Given Fluocinonide (Lidex 0.05% Oint) 1 applic TOP BID [facility] Last Admin: 02/22/16 16:06 Dose: 1 applic Magnesium Hydroxide (Milk Of Magnesia) 30 ml PO DAILY PRN PRN Reason: Constipation Midodrine (Proamatine) 10 mg PO TID [facility] Last Admin: 02/22/16 16:06 Dose: 10 mg Quetiapine Fumarate (Seroquel) 50 mg PO HS PRN PRN Reason: Agitation Last Admin: 02/19/16 20:36 Dose: 50 mg - Labs Labs: 02/19/16 05:10 02/19/16 05:10 - Respiratory Exam Respiratory Exam: NORMAL BREATHING PATTERN - Cardiovascular Exam Cardiovascular Exam: REGULAR RHYTHM - GI/Abdominal Exam GI & Abdominal Exam: Normal Bowel Sounds Assessment and Plan - Assessment and Plan (Free Text) Assessment: Disposition?? 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 ID consult appreciated
[2016-02-23] MEDS: LEVODOPA PO SCH ×3 (05:36→21:32)
[2016-02-23] MEDS: CARBIDOPA PO SCH ×3 (05:36→21:32)
[2016-02-23] MEDS: Bethanechol 50 MG TAB PO SCH ×3 (08:05→16:05)
--- NOTE | 2016-02-23 16:52 | CP.PCM.PN ---
Subjective - Date & Time of Evaluation Date of Evaluation: 02/23/16 Time of Evaluation: 22:22 - Subjective Subjective: Resting in bed Objective - Vital Signs/Intake and Output Vital Signs (last 24 hours): Temp Pulse Resp BP Pulse Ox 97.4 F L 74 20 118/60 98 02/23/16 07:59 02/23/16 07:59 02/23/16 07:59 02/23/16 07:59 02/23/16 07:59 - Medications Medications: Current Medications Acetaminophen (Tylenol 325mg Tab) 650 mg PO Q6 PRN PRN Reason: Pain, Mild (1-3) Last Admin: 02/15/16 13:06 Dose: 650 mg Bethanechol Chloride (Urecholine) 50 mg PO TID [facility] Last Admin: 02/23/16 16:05 Dose: 50 mg Carbidopa/Levodopa (Rytary Er 48.75 Mg-195 Mg Cap) 1 cap PO TID@0500,1300,2100 [facility] Last Admin: 02/23/16 11:59 Dose: 1 cap Docusate Sodium (Colace) 100 mg PO BID [facility] Last Admin: 02/23/16 16:06 Dose: 100 mg Fluocinonide (Lidex 0.05% Oint) 1 applic TOP BID [facility] Last Admin: 02/23/16 16:05 Dose: 1 applic Magnesium Hydroxide (Milk Of Magnesia) 30 ml PO DAILY PRN PRN Reason: Constipation Midodrine (Proamatine) 10 mg PO TID [facility] Last Admin: 02/23/16 16:05 Dose: 10 mg Quetiapine Fumarate (Seroquel) 50 mg PO HS PRN PRN Reason: Agitation Last Admin: 02/19/16 20:36 Dose: 50 mg - Labs Labs: 02/19/16 05:10 02/19/16 05:10
[2016-02-24] MEDS: CARBIDOPA PO SCH ×3 (05:00→21:10)
[2016-02-24] MEDS: LEVODOPA PO SCH ×3 (05:00→21:10)
[2016-02-24] MEDS: Bethanechol 50 MG TAB PO SCH ×3 (08:10→16:21)
--- NOTE | 2016-02-24 23:32 | CP.PCM.PN ---
Subjective - Date & Time of Evaluation Date of Evaluation: 02/24/16 Time of Evaluation: 22:22 - Subjective Subjective: Sleeping Objective - Vital Signs/Intake and Output Vital Signs (last 24 hours): Temp Pulse Resp BP Pulse Ox 97.5 F L 68 19 118/73 95 02/24/16 16:00 02/24/16 16:00 02/24/16 16:00 02/24/16 16:00 02/24/16 16:00 - Medications Medications: Current Medications Acetaminophen (Tylenol 325mg Tab) 650 mg PO Q6 PRN PRN Reason: Pain, Mild (1-3) Last Admin: 02/15/16 13:06 Dose: 650 mg Bethanechol Chloride (Urecholine) 50 mg PO TID [facility] Last Admin: 02/24/16 16:21 Dose: 50 mg Carbidopa/Levodopa (Rytary Er 48.75 Mg-195 Mg Cap) 1 cap PO TID@0500,1300,2100 [facility] Last Admin: 02/24/16 21:10 Dose: 1 cap Docusate Sodium (Colace) 100 mg PO BID [facility] Last Admin: 02/24/16 16:21 Dose: 100 mg Fluocinonide (Lidex 0.05% Oint) 1 applic TOP BID [facility] Last Admin: 02/24/16 16:21 Dose: 1 applic Magnesium Hydroxide (Milk Of Magnesia) 30 ml PO DAILY PRN PRN Reason: Constipation Midodrine (Proamatine) 10 mg PO TID [facility] Last Admin: 02/24/16 16:21 Dose: 10 mg Quetiapine Fumarate (Seroquel) 50 mg PO HS PRN PRN Reason: Agitation Last Admin: 02/24/16 21:10 Dose: 50 mg - Labs Labs: 02/19/16 05:10 02/19/16 05:10 - Respiratory Exam Respiratory Exam: NORMAL BREATHING PATTERN - Cardiovascular Exam Cardiovascular Exam: REGULAR RHYTHM - GI/Abdominal Exam GI & Abdominal Exam: Normal Bowel Sounds Assessment and Plan - Assessment and Plan (Free Text) Assessment: Disposition?? 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 ID consult appreciated
[2016-02-25] MEDS: CARBIDOPA PO SCH ×3 (05:00→21:14)
[2016-02-25] MEDS: LEVODOPA PO SCH ×3 (05:00→21:14)
--- NOTE | 2016-02-25 09:27 | CP.PCM.PN ---
Subjective - Date & Time of Evaluation Date of Evaluation: 02/25/16 Time of Evaluation: 22:22 - Subjective Subjective: Doing well Objective - Vital Signs/Intake and Output Vital Signs (last 24 hours): Temp Pulse Resp BP Pulse Ox 97.7 F 65 20 104/54 L 99 02/25/16 08:28 02/25/16 08:28 02/25/16 08:28 02/25/16 08:28 02/25/16 08:28 - Medications Medications: Current Medications Acetaminophen (Tylenol 325mg Tab) 650 mg PO Q6 PRN PRN Reason: Pain, Mild (1-3) Last Admin: 02/15/16 13:06 Dose: 650 mg Bethanechol Chloride (Urecholine) 50 mg PO TID [facility] Last Admin: 02/24/16 16:21 Dose: 50 mg Carbidopa/Levodopa (Rytary Er 48.75 Mg-195 Mg Cap) 1 cap PO TID@0500,1300,2100 [facility] Last Admin: 02/25/16 05:00 Dose: 1 cap Docusate Sodium (Colace) 100 mg PO BID [facility] Last Admin: 02/24/16 16:21 Dose: 100 mg Fluocinonide (Lidex 0.05% Oint) 1 applic TOP BID [facility] Last Admin: 02/24/16 16:21 Dose: 1 applic Magnesium Hydroxide (Milk Of Magnesia) 30 ml PO DAILY PRN PRN Reason: Constipation Midodrine (Proamatine) 10 mg PO TID [facility] Last Admin: 02/24/16 16:21 Dose: 10 mg Quetiapine Fumarate (Seroquel) 50 mg PO HS PRN PRN Reason: Agitation Last Admin: 02/24/16 21:10 Dose: 50 mg - Labs Labs: 02/19/16 05:10 02/19/16 05:10 - Respiratory Exam Respiratory Exam: NORMAL BREATHING PATTERN - Cardiovascular Exam Cardiovascular Exam: REGULAR RHYTHM - GI/Abdominal Exam GI & Abdominal Exam: Normal Bowel Sounds Assessment and Plan - Assessment and Plan (Free Text) Assessment: Disposition?? 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 ID consult appreciated
[2016-02-25] MEDS: Bethanechol 50 MG TAB PO SCH ×3 (10:16→16:06)
[2016-02-26] MEDS: LEVODOPA PO SCH ×3 (05:02→22:04)
[2016-02-26] MEDS: CARBIDOPA PO SCH ×3 (05:02→22:04)
[2016-02-26] MEDS: Bethanechol 50 MG TAB PO SCH ×3 (08:13→16:09)
--- NOTE | 2016-02-26 21:12 | CP.PCM.PN ---
Subjective - Date & Time of Evaluation Date of Evaluation: 02/26/16 Time of Evaluation: 22:22 - Subjective Subjective: Agitated Objective - Vital Signs/Intake and Output Vital Signs (last 24 hours): Temp Pulse Resp BP Pulse Ox 96.8 F L 77 20 131/85 97 02/26/16 16:11 02/26/16 16:11 02/26/16 16:11 02/26/16 16:11 02/26/16 16:11 - Medications Medications: Current Medications Acetaminophen (Tylenol 325mg Tab) 650 mg PO Q6 PRN PRN Reason: Pain, Mild (1-3) Last Admin: 02/25/16 15:19 Dose: 650 mg Bethanechol Chloride (Urecholine) 50 mg PO TID [facility] Last Admin: 02/26/16 16:09 Dose: 50 mg Carbidopa/Levodopa (Rytary Er 48.75 Mg-195 Mg Cap) 1 cap PO TID@0500,1300,2100 [facility] Last Admin: 02/26/16 12:00 Dose: 1 cap Docusate Sodium (Colace) 100 mg PO BID [facility] Last Admin: 02/26/16 16:10 Dose: 100 mg Fluocinonide (Lidex 0.05% Oint) 1 applic TOP BID [facility] Last Admin: 02/26/16 16:09 Dose: 1 applic Magnesium Hydroxide (Milk Of Magnesia) 30 ml PO DAILY PRN PRN Reason: Constipation Midodrine (Proamatine) 10 mg PO TID [facility] Last Admin: 02/26/16 16:09 Dose: 10 mg Quetiapine Fumarate (Seroquel) 50 mg PO HS PRN PRN Reason: Agitation Last Admin: 02/25/16 21:14 Dose: 50 mg - Labs Labs: 02/19/16 05:10 02/19/16 05:10 - Respiratory Exam Respiratory Exam: NORMAL BREATHING PATTERN - Cardiovascular Exam Cardiovascular Exam: REGULAR RHYTHM - GI/Abdominal Exam GI & Abdominal Exam: Normal Bowel Sounds Assessment and Plan - Assessment and Plan (Free Text) Assessment: Disposition?? 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 ID consult appreciated
[2016-02-27] MEDS: LEVODOPA PO SCH ×3 (04:57→21:16)
[2016-02-27] MEDS: CARBIDOPA PO SCH ×3 (04:57→21:16)
[2016-02-27] MEDS: Bethanechol 50 MG TAB PO SCH ×3 (08:19→16:01)
--- NOTE | 2016-02-27 21:00 | CP.PCM.PN ---
Subjective - Date & Time of Evaluation Date of Evaluation: 02/27/16 Time of Evaluation: 22:22 - Subjective Subjective: Resting in bed Objective - Vital Signs/Intake and Output Vital Signs (last 24 hours): Temp Pulse Resp BP Pulse Ox 97.0 F L 77 20 121/75 99 02/27/16 16:33 02/27/16 16:33 02/27/16 16:33 02/27/16 16:33 02/27/16 16:33 - Medications Medications: Current Medications Acetaminophen (Tylenol 325mg Tab) 650 mg PO Q6 PRN PRN Reason: Pain, Mild (1-3) Last Admin: 02/27/16 11:02 Dose: 650 mg Bethanechol Chloride (Urecholine) 50 mg PO TID [facility] Last Admin: 02/27/16 16:01 Dose: 50 mg Carbidopa/Levodopa (Rytary Er 48.75 Mg-195 Mg Cap) 1 cap PO TID@0500,1300,2100 [facility] Last Admin: 02/27/16 12:36 Dose: 1 cap Docusate Sodium (Colace) 100 mg PO BID [facility] Last Admin: 02/27/16 15:59 Dose: 100 mg Fluocinonide (Lidex 0.05% Oint) 1 applic TOP BID [facility] Last Admin: 02/27/16 16:00 Dose: 1 applic Magnesium Hydroxide (Milk Of Magnesia) 30 ml PO DAILY PRN PRN Reason: Constipation Midodrine (Proamatine) 10 mg PO TID [facility] Last Admin: 02/27/16 16:01 Dose: 10 mg Quetiapine Fumarate (Seroquel) 50 mg PO HS PRN PRN Reason: Agitation Last Admin: 02/25/16 21:14 Dose: 50 mg - Labs Labs: 02/19/16 05:10 02/19/16 05:10 - Respiratory Exam Respiratory Exam: NORMAL BREATHING PATTERN - Cardiovascular Exam Cardiovascular Exam: REGULAR RHYTHM - GI/Abdominal Exam GI & Abdominal Exam: Normal Bowel Sounds Assessment and Plan - Assessment and Plan (Free Text) Assessment: Disposition?? 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 ID consult appreciated
[2016-02-28] MEDS: LEVODOPA PO SCH ×3 (06:11→21:02)
[2016-02-28] MEDS: CARBIDOPA PO SCH ×3 (06:11→21:02)
[2016-02-28] MEDS: Bethanechol 50 MG TAB PO SCH ×3 (08:50→17:30)
[2016-02-28] MEDS: Magnesium Hydroxide Susp 30 ml UD PO PRN (09:19)
--- NOTE | 2016-02-28 17:00 | CP.PCM.PN ---
Subjective - Date & Time of Evaluation Date of Evaluation: 02/28/16 Time of Evaluation: 22:22 - Subjective Subjective: Doing well Objective - Vital Signs/Intake and Output Vital Signs (last 24 hours): Temp Pulse Resp BP Pulse Ox 97 F L 72 20 129/63 99 02/28/16 16:19 02/28/16 16:19 02/28/16 16:19 02/28/16 16:19 02/28/16 16:19 - Medications Medications: Current Medications Acetaminophen (Tylenol 325mg Tab) 650 mg PO Q6 PRN PRN Reason: Pain, Mild (1-3) Last Admin: 02/28/16 12:32 Dose: 650 mg Bethanechol Chloride (Urecholine) 50 mg PO TID [facility] Last Admin: 02/28/16 12:06 Dose: 50 mg Carbidopa/Levodopa (Rytary Er 48.75 Mg-195 Mg Cap) 1 cap PO TID@0500,1300,2100 [facility] Last Admin: 02/28/16 12:05 Dose: 1 cap Docusate Sodium (Colace) 100 mg PO BID [facility] Last Admin: 02/28/16 08:49 Dose: 100 mg Fluocinonide (Lidex 0.05% Oint) 1 applic TOP BID [facility] 234 [facility] Last Admin: 02/28/16 08:49 Dose: 1 applic Magnesium Hydroxide (Milk Of Magnesia) 30 ml PO DAILY PRN PRN Reason: Constipation Last Admin: 02/28/16 09:19 Dose: 30 ml Midodrine (Proamatine) 10 mg PO TID [facility] 234 [facility]S [facility] Last Admin: 02/28/16 12:04 Dose: 10 mg Quetiapine Fumarate (Seroquel) 50 mg PO HS PRN PRN Reason: Agitation Last Admin: 02/25/16 21:14 Dose: 50 mg - Labs Labs: 02/19/16 05:10 02/19/16 05:10 - Respiratory Exam Respiratory Exam: NORMAL BREATHING PATTERN - Cardiovascular Exam Cardiovascular Exam: REGULAR RHYTHM - GI/Abdominal Exam GI & Abdominal Exam: Normal Bowel Sounds Assessment and Plan - Assessment and Plan (Free Text) Assessment: Disposition?? 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 ID consult appreciated
[2016-02-29] MEDS: LEVODOPA PO SCH ×3 (04:52→20:20)
[2016-02-29] MEDS: CARBIDOPA PO SCH ×3 (04:52→20:20)
[2016-02-29] MEDS: Bethanechol 50 MG TAB PO SCH ×3 (08:27→16:08)
--- NOTE | 2016-02-29 20:45 | CP.PCM.PN ---
Subjective - Date & Time of Evaluation Date of Evaluation: 02/29/16 Time of Evaluation: 22:22 - Subjective Subjective: Sitting in hallway Objective - Vital Signs/Intake and Output Vital Signs (last 24 hours): Temp Pulse Resp BP Pulse Ox 98.1 F 86 20 137/84 99 02/29/16 17:00 02/29/16 16:13 02/29/16 16:13 02/29/16 16:13 02/29/16 16:13 - Medications Medications: Current Medications Acetaminophen (Tylenol 325mg Tab) 650 mg PO Q6 PRN PRN Reason: Pain, Mild (1-3) Last Admin: 02/29/16 13:37 Dose: 650 mg Bethanechol Chloride (Urecholine) 50 mg PO TID [facility] Last Admin: 02/29/16 16:08 Dose: 50 mg Carbidopa/Levodopa (Rytary Er 48.75 Mg-195 Mg Cap) 1 cap PO TID@0500,1300,2100 [facility] Last Admin: 02/29/16 20:20 Dose: 1 cap Docusate Sodium (Colace) 100 mg PO BID [facility] Last Admin: 02/29/16 16:08 Dose: 100 mg Fluocinonide (Lidex 0.05% Oint) 1 applic TOP BID [facility] Last Admin: 02/29/16 16:08 Dose: 1 applic Magnesium Hydroxide (Milk Of Magnesia) 30 ml PO DAILY PRN PRN Reason: Constipation Last Admin: 02/28/16 09:19 Dose: 30 ml Midodrine (Proamatine) 10 mg PO TID [facility] Last Admin: 02/29/16 16:08 Dose: 10 mg Quetiapine Fumarate (Seroquel) 50 mg PO HS PRN PRN Reason: Agitation Last Admin: 02/29/16 01:15 Dose: 50 mg - Labs Labs: 02/19/16 05:10 02/19/16 05:10 - Respiratory Exam Respiratory Exam: NORMAL BREATHING PATTERN - Cardiovascular Exam Cardiovascular Exam: REGULAR RHYTHM - GI/Abdominal Exam GI & Abdominal Exam: Normal Bowel Sounds Assessment and Plan - Assessment and Plan (Free Text) Assessment: Disposition?? 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 ID consult appreciated
[2016-03-01] MEDS: LEVODOPA PO SCH ×3 (05:22→20:23)
[2016-03-01] MEDS: CARBIDOPA PO SCH ×3 (05:22→20:23)
[2016-03-01] MEDS: Bethanechol 50 MG TAB PO SCH ×3 (08:33→16:08)
--- NOTE | 2016-03-01 12:31 | CP.PCM.PN ---
Subjective - Date & Time of Evaluation Date of Evaluation: 03/01/16 Time of Evaluation: 22:22 - Subjective Subjective: Sitting in chair Objective - Vital Signs/Intake and Output Vital Signs (last 24 hours): Temp Pulse Resp BP Pulse Ox 96.8 F L 57 L 20 111/67 100 03/01/16 08:43 03/01/16 08:43 03/01/16 08:43 03/01/16 08:43 03/01/16 08:43 - Medications Medications: Current Medications Acetaminophen (Tylenol 325mg Tab) 650 mg PO Q6 PRN PRN Reason: Pain, Mild (1-3) Last Admin: 02/29/16 13:37 Dose: 650 mg Bethanechol Chloride (Urecholine) 50 mg PO TID [facility] Last Admin: 03/01/16 12:05 Dose: 50 mg Carbidopa/Levodopa (Rytary Er 48.75 Mg-195 Mg Cap) 1 cap PO TID@0500,1300,2100 [facility] Last Admin: 03/01/16 12:05 Dose: 1 cap Docusate Sodium (Colace) 100 mg PO BID [facility] Last Admin: 03/01/16 08:31 Dose: 100 mg Fluocinonide (Lidex 0.05% Oint) 1 applic TOP BID [facility] Last Admin: 03/01/16 08:31 Dose: 1 applic Magnesium Hydroxide (Milk Of Magnesia) 30 ml PO DAILY PRN PRN Reason: Constipation Last Admin: 02/28/16 09:19 Dose: 30 ml Midodrine (Proamatine) 10 mg PO TID [facility] Last Admin: 03/01/16 12:05 Dose: 10 mg Quetiapine Fumarate (Seroquel) 50 mg PO HS PRN PRN Reason: Agitation Last Admin: 02/29/16 01:15 Dose: 50 mg - Labs Labs: 02/19/16 05:10 02/19/16 05:10 - Respiratory Exam Respiratory Exam: NORMAL BREATHING PATTERN - Cardiovascular Exam Cardiovascular Exam: REGULAR RHYTHM - GI/Abdominal Exam GI & Abdominal Exam: Normal Bowel Sounds Assessment and Plan - Assessment and Plan (Free Text) Assessment: Disposition?? 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 ID consult appreciated
[2016-03-02] MEDS: CARBIDOPA PO SCH ×3 (04:51→20:33)
[2016-03-02] MEDS: LEVODOPA PO SCH ×3 (04:51→20:33)
[2016-03-02] MEDS: Bethanechol 50 MG TAB PO SCH ×3 (08:12→16:04)
[2016-03-03] MEDS: LEVODOPA PO SCH ×3 (05:14→21:10)
[2016-03-03] MEDS: CARBIDOPA PO SCH ×3 (05:14→21:10)
[2016-03-03] MEDS: Bethanechol 50 MG TAB PO SCH ×3 (10:14→17:08)
[2016-03-04] MEDS: CARBIDOPA PO SCH ×3 (05:05→21:32)
[2016-03-04] MEDS: LEVODOPA PO SCH ×3 (05:05→21:32)
[2016-03-04] MEDS: Bethanechol 50 MG TAB PO SCH ×3 (08:59→16:59)
--- NOTE | 2016-03-04 20:08 | CP.PCM.PN ---
Subjective - Date & Time of Evaluation Date of Evaluation: 03/04/16 Time of Evaluation: 22:22 - Subjective Subjective: No change in status Objective - Vital Signs/Intake and Output Vital Signs (last 24 hours): Temp Pulse Resp BP Pulse Ox 97.7 F 68 220 H 135/68 100 03/04/16 16:00 03/04/16 16:00 03/04/16 16:00 03/04/16 16:00 03/04/16 16:00 - Medications Medications: Current Medications Acetaminophen (Tylenol 325mg Tab) 650 mg PO Q6 PRN PRN Reason: Pain, Mild (1-3) Last Admin: 03/04/16 18:34 Dose: 650 mg Bethanechol Chloride (Urecholine) 50 mg PO TID [facility] Last Admin: 03/04/16 16:59 Dose: 50 mg Carbidopa/Levodopa (Rytary Er 48.75 Mg-195 Mg Cap) 1 cap PO TID@0500,1300,2100 [facility] Last Admin: 03/04/16 13:11 Dose: 1 cap Docusate Sodium (Colace) 100 mg PO BID [facility] Last Admin: 03/04/16 16:59 Dose: 100 mg Fluocinonide (Lidex 0.05% Oint) 1 applic TOP BID [facility] Last Admin: 03/04/16 16:59 Dose: 1 applic Magnesium Hydroxide (Milk Of Magnesia) 30 ml PO DAILY PRN PRN Reason: Constipation Last Admin: 02/28/16 09:19 Dose: 30 ml Midodrine (Proamatine) 10 mg PO TID [facility] Last Admin: 03/04/16 16:59 Dose: 10 mg Quetiapine Fumarate (Seroquel) 50 mg PO HS PRN PRN Reason: Agitation Last Admin: 02/29/16 01:15 Dose: 50 mg - Labs Labs: 02/19/16 05:10 02/19/16 05:10 - Respiratory Exam Respiratory Exam: NORMAL BREATHING PATTERN - Cardiovascular Exam Cardiovascular Exam: REGULAR RHYTHM - GI/Abdominal Exam GI & Abdominal Exam: Normal Bowel Sounds Assessment and Plan - Assessment and Plan (Free Text) Assessment: Disposition?? 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 ID consult appreciated
[2016-03-05] MEDS: CARBIDOPA PO SCH ×3 (04:40→22:39)
[2016-03-05] MEDS: LEVODOPA PO SCH ×3 (04:40→22:39)
[2016-03-05] MEDS: Bethanechol 50 MG TAB PO SCH ×3 (09:35→16:47)
--- NOTE | 2016-03-05 21:01 | CP.PCM.PN ---
Subjective - Date & Time of Evaluation Date of Evaluation: 03/05/16 Time of Evaluation: 22:22 - Subjective Subjective: Resting in bed Objective - Vital Signs/Intake and Output Vital Signs (last 24 hours): Temp Pulse Resp BP Pulse Ox 96.4 F L 79 20 137/74 96 03/05/16 16:38 03/05/16 16:38 03/05/16 16:38 03/05/16 16:38 03/05/16 16:38 - Medications Medications: Current Medications Acetaminophen (Tylenol 325mg Tab) 650 mg PO Q6 PRN PRN Reason: Pain, Mild (1-3) Last Admin: 03/04/16 18:34 Dose: 650 mg Bethanechol Chloride (Urecholine) 50 mg PO TID [facility] Last Admin: 03/05/16 16:47 Dose: 50 mg Carbidopa/Levodopa (Rytary Er 48.75 Mg-195 Mg Cap) 1 cap PO TID@0500,1300,2100 [facility] Last Admin: 03/05/16 13:55 Dose: 1 cap Docusate Sodium (Colace) 100 mg PO BID [facility] Last Admin: 03/05/16 16:47 Dose: 100 mg Fluocinonide (Lidex 0.05% Oint) 1 applic TOP BID [facility] Last Admin: 03/05/16 16:47 Dose: 1 applic Magnesium Hydroxide (Milk Of Magnesia) 30 ml PO DAILY PRN PRN Reason: Constipation Last Admin: 02/28/16 09:19 Dose: 30 ml Midodrine (Proamatine) 10 mg PO TID [facility] Last Admin: 03/05/16 16:47 Dose: 10 mg Quetiapine Fumarate (Seroquel) 50 mg PO HS PRN PRN Reason: Agitation Last Admin: 02/29/16 01:15 Dose: 50 mg - Labs Labs: 02/19/16 05:10 02/19/16 05:10 - Respiratory Exam Respiratory Exam: NORMAL BREATHING PATTERN - Cardiovascular Exam Cardiovascular Exam: REGULAR RHYTHM - GI/Abdominal Exam GI & Abdominal Exam: Normal Bowel Sounds Assessment and Plan - Assessment and Plan (Free Text) Assessment: Disposition?? 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 ID consult appreciated
[2016-03-06] MEDS: LEVODOPA PO SCH ×3 (05:09→21:38)
[2016-03-06] MEDS: CARBIDOPA PO SCH ×3 (05:09→21:38)
[2016-03-06] MEDS: Bethanechol 50 MG TAB PO SCH ×3 (09:31→17:10)
--- NOTE | 2016-03-06 14:25 | RAD ---
PROCEDURE: Radiographs of the Right Shoulder HISTORY: shoulder pain COMPARISON: 02/07/2016 FINDINGS: BONES: No acute fracture. JOINTS: Superior subluxation of right humeral head relative to glenoid, consistent with chronic rotator cuff degeneration. Acromioclavicular degenerative arthritis. Glenohumeral articulation appears otherwise intact. SOFT TISSUES: Normal. OTHER FINDINGS: None. IMPRESSION: Chronic right rotator cuff degeneration. Acromioclavicular degenerative arthritis. No acute fracture.
--- NOTE | 2016-03-06 17:52 | CP.PCM.PN ---
Subjective - Date & Time of Evaluation Date of Evaluation: 03/06/16 Time of Evaluation: 22:22 - Subjective Subjective: Doing w3ell Objective - Vital Signs/Intake and Output Vital Signs (last 24 hours): Temp Pulse Resp BP Pulse Ox 97.8 F 90 20 98/63 L 100 03/06/16 16:15 03/06/16 16:15 03/06/16 16:15 03/06/16 16:15 03/06/16 16:15 - Medications Medications: Current Medications Acetaminophen (Tylenol 325mg Tab) 650 mg PO Q6 PRN PRN Reason: Pain, Mild (1-3) Last Admin: 03/06/16 10:32 Dose: 650 mg Bethanechol Chloride (Urecholine) 50 mg PO TID [facility] Last Admin: 03/06/16 17:10 Dose: 50 mg Carbidopa/Levodopa (Rytary Er 48.75 Mg-195 Mg Cap) 1 cap PO TID@0500,1300,2100 [facility] Last Admin: 03/06/16 13:38 Dose: 1 cap Docusate Sodium (Colace) 100 mg PO BID [facility] Last Admin: 03/06/16 09:30 Dose: 100 mg Fluocinonide (Lidex 0.05% Oint) 1 applic TOP BID [facility] Last Admin: 03/06/16 17:09 Dose: 1 applic Magnesium Hydroxide (Milk Of Magnesia) 30 ml PO DAILY PRN PRN Reason: Constipation Last Admin: 02/28/16 09:19 Dose: 30 ml Midodrine (Proamatine) 10 mg PO TID [facility] Last Admin: 03/06/16 17:10 Dose: 10 mg Quetiapine Fumarate (Seroquel) 50 mg PO HS PRN PRN Reason: Agitation Last Admin: 02/29/16 01:15 Dose: 50 mg - Labs Labs: 02/19/16 05:10 02/19/16 05:10 - Respiratory Exam Respiratory Exam: NORMAL BREATHING PATTERN - Cardiovascular Exam Cardiovascular Exam: REGULAR RHYTHM - GI/Abdominal Exam GI & Abdominal Exam: Normal Bowel Sounds Assessment and Plan - Assessment and Plan (Free Text) Assessment: Disposition?? 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 ID consult appreciated
[2016-03-07] MEDS: LEVODOPA PO SCH ×3 (04:30→21:24)
[2016-03-07] MEDS: CARBIDOPA PO SCH ×3 (04:30→21:24)
[2016-03-07] MEDS: Bethanechol 50 MG TAB PO SCH ×3 (08:56→16:44)
--- NOTE | 2016-03-07 20:44 | CP.PCM.PN ---
Subjective - Date & Time of Evaluation Date of Evaluation: 03/07/16 Time of Evaluation: 22:22 - Subjective Subjective: Sleeping Objective - Vital Signs/Intake and Output Vital Signs (last 24 hours): Temp Pulse Resp BP Pulse Ox 97.5 F L 90 20 150/86 98 03/07/16 16:39 03/07/16 16:39 03/07/16 16:39 03/07/16 16:39 03/07/16 16:39 - Medications Medications: Current Medications Acetaminophen (Tylenol 325mg Tab) 650 mg PO Q6 PRN PRN Reason: Pain, Mild (1-3) Last Admin: 03/06/16 10:32 Dose: 650 mg Bethanechol Chloride (Urecholine) 50 mg PO TID [facility] Last Admin: 03/07/16 16:44 Dose: 50 mg Carbidopa/Levodopa (Rytary Er 48.75 Mg-195 Mg Cap) 1 cap PO TID@0500,1300,2100 [facility] Last Admin: 03/07/16 12:05 Dose: 1 cap Docusate Sodium (Colace) 100 mg PO BID [facility] Last Admin: 03/07/16 16:40 Dose: 100 mg Fluocinonide (Lidex 0.05% Oint) 1 applic TOP BID [facility] Last Admin: 03/07/16 16:40 Dose: 1 applic Magnesium Hydroxide (Milk Of Magnesia) 30 ml PO DAILY PRN PRN Reason: Constipation Last Admin: 02/28/16 09:19 Dose: 30 ml Midodrine (Proamatine) 10 mg PO TID [facility] Last Admin: 03/07/16 16:41 Dose: 10 mg Quetiapine Fumarate (Seroquel) 50 mg PO HS PRN PRN Reason: Agitation Last Admin: 02/29/16 01:15 Dose: 50 mg - Labs Labs: 02/19/16 05:10 02/19/16 05:10 - Respiratory Exam Respiratory Exam: NORMAL BREATHING PATTERN - Cardiovascular Exam Cardiovascular Exam: REGULAR RHYTHM - GI/Abdominal Exam GI & Abdominal Exam: Normal Bowel Sounds Assessment and Plan - Assessment and Plan (Free Text) Assessment: Disposition?? 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 ID consult appreciated
[2016-03-08] MEDS: CARBIDOPA PO SCH ×3 (05:24→21:52)
[2016-03-08] MEDS: LEVODOPA PO SCH ×3 (05:24→21:52)
[2016-03-08] MEDS: Bethanechol 50 MG TAB PO SCH ×3 (08:34→17:28)
--- NOTE | 2016-03-08 13:33 | CP.PCM.PN ---
Subjective - Date & Time of Evaluation Date of Evaluation: 03/08/16 Time of Evaluation: 22:22 - Subjective Subjective: Above noted Objective - Vital Signs/Intake and Output Vital Signs (last 24 hours): Temp Pulse Resp BP Pulse Ox 97.4 F L 75 18 113/72 100 03/08/16 08:00 03/08/16 08:00 03/08/16 08:00 03/08/16 08:00 03/08/16 08:00 - Medications Medications: Current Medications Acetaminophen (Tylenol 325mg Tab) 650 mg PO Q6 PRN PRN Reason: Pain, Mild (1-3) Last Admin: 03/06/16 10:32 Dose: 650 mg Bethanechol Chloride (Urecholine) 50 mg PO TID [facility] Last Admin: 03/08/16 13:03 Dose: 50 mg Carbidopa/Levodopa (Rytary Er 48.75 Mg-195 Mg Cap) 1 cap PO TID@0500,1300,2100 [facility] Last Admin: 03/08/16 13:02 Dose: 1 cap Docusate Sodium (Colace) 100 mg PO BID [facility] Last Admin: 03/08/16 08:34 Dose: 100 mg Fluocinonide (Lidex 0.05% Oint) 1 applic TOP BID [facility] Last Admin: 03/08/16 08:34 Dose: 1 applic Magnesium Hydroxide (Milk Of Magnesia) 30 ml PO DAILY PRN PRN Reason: Constipation Last Admin: 02/28/16 09:19 Dose: 30 ml Midodrine (Proamatine) 10 mg PO TID [facility] Last Admin: 03/08/16 13:02 Dose: 10 mg Quetiapine Fumarate (Seroquel) 50 mg PO HS PRN PRN Reason: Agitation Last Admin: 02/29/16 01:15 Dose: 50 mg - Labs Labs: 02/19/16 05:10 02/19/16 05:10 - Respiratory Exam Respiratory Exam: NORMAL BREATHING PATTERN - Cardiovascular Exam Cardiovascular Exam: REGULAR RHYTHM - GI/Abdominal Exam GI & Abdominal Exam: Normal Bowel Sounds Assessment and Plan - Assessment and Plan (Free Text) Assessment: Disposition?? 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 ID consult appreciated
[2016-03-09] MEDS: CARBIDOPA PO SCH ×3 (05:00→21:50)
[2016-03-09] MEDS: LEVODOPA PO SCH ×3 (05:00→21:50)
[2016-03-09] MEDS: Bethanechol 50 MG TAB PO SCH ×3 (08:53→16:34)
[2016-03-10] MEDS: LEVODOPA PO SCH ×3 (05:00→21:07)
[2016-03-10] MEDS: CARBIDOPA PO SCH ×3 (05:00→21:07)
[2016-03-10] MEDS: Bethanechol 50 MG TAB PO SCH ×3 (08:54→16:03)
[2016-03-11] MEDS: LEVODOPA PO SCH ×3 (04:46→21:44)
[2016-03-11] MEDS: CARBIDOPA PO SCH ×3 (04:46→21:44)
[2016-03-11] MEDS: Bethanechol 50 MG TAB PO SCH ×3 (08:45→17:02)
--- NOTE | 2016-03-11 20:26 | CP.PCM.PN ---
Subjective - Date & Time of Evaluation Date of Evaluation: 03/11/16 Time of Evaluation: 22:22 - Subjective Subjective: Above noted Objective - Vital Signs/Intake and Output Vital Signs (last 24 hours): Temp Pulse Resp BP Pulse Ox 97.3 F L 70 20 120/60 97 03/11/16 16:34 03/11/16 16:34 03/11/16 16:34 03/11/16 16:34 03/11/16 16:34 - Medications Medications: Current Medications Acetaminophen (Tylenol 325mg Tab) 650 mg PO Q6 PRN PRN Reason: Pain, Mild (1-3) Last Admin: 03/11/16 17:23 Dose: 650 mg Bethanechol Chloride (Urecholine) 50 mg PO TID [facility] Last Admin: 03/11/16 17:02 Dose: 50 mg Carbidopa/Levodopa (Rytary Er 48.75 Mg-195 Mg Cap) 1 cap PO TID@0500,1300,2100 [facility] Last Admin: 03/11/16 13:10 Dose: 1 cap Docusate Sodium (Colace) 100 mg PO BID [facility] Last Admin: 03/11/16 17:02 Dose: 100 mg Fluocinonide (Lidex 0.05% Oint) 1 applic TOP BID [facility] Last Admin: 03/11/16 17:02 Dose: 1 applic Magnesium Hydroxide (Milk Of Magnesia) 30 ml PO DAILY PRN PRN Reason: Constipation Last Admin: 02/28/16 09:19 Dose: 30 ml Midodrine (Proamatine) 10 mg PO TID [facility] Last Admin: 03/11/16 17:02 Dose: 10 mg Quetiapine Fumarate (Seroquel) 50 mg PO HS PRN PRN Reason: Agitation Last Admin: 03/09/16 21:50 Dose: 50 mg - Labs Labs: 02/19/16 05:10 02/19/16 05:10 - Respiratory Exam Respiratory Exam: NORMAL BREATHING PATTERN - Cardiovascular Exam Cardiovascular Exam: REGULAR RHYTHM - GI/Abdominal Exam GI & Abdominal Exam: Normal Bowel Sounds Assessment and Plan - Assessment and Plan (Free Text) Assessment: Disposition?? 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 ID consult appreciated
[2016-03-12] MEDS: CARBIDOPA PO SCH ×3 (04:32→21:19)
[2016-03-12] MEDS: LEVODOPA PO SCH ×3 (04:32→21:19)
[2016-03-12] MEDS: Bethanechol 50 MG TAB PO SCH ×3 (10:08→17:17)
--- NOTE | 2016-03-12 17:11 | CP.PCM.PN ---
Subjective - Date & Time of Evaluation Date of Evaluation: 03/12/16 Time of Evaluation: 22:22 - Subjective Subjective: above noted Objective - Vital Signs/Intake and Output Vital Signs (last 24 hours): Temp Pulse Resp BP Pulse Ox 97.6 F 81 20 132/72 96 03/12/16 08:19 03/12/16 08:19 03/12/16 08:19 03/12/16 08:19 03/12/16 08:19 - Medications Medications: Current Medications Acetaminophen (Tylenol 325mg Tab) 650 mg PO Q6 PRN PRN Reason: Pain, Mild (1-3) Last Admin: 03/11/16 17:23 Dose: 650 mg Bethanechol Chloride (Urecholine) 50 mg PO TID [facility] Last Admin: 03/12/16 13:24 Dose: 50 mg Carbidopa/Levodopa (Rytary Er 48.75 Mg-195 Mg Cap) 1 cap PO TID@0500,1300,2100 [facility] Last Admin: 03/12/16 13:24 Dose: 1 cap Docusate Sodium (Colace) 100 mg PO BID [facility] Last Admin: 03/12/16 10:08 Dose: 100 mg Fluocinonide (Lidex 0.05% Oint) 1 applic TOP BID [facility] Last Admin: 03/12/16 10:08 Dose: 1 applic Magnesium Hydroxide (Milk Of Magnesia) 30 ml PO DAILY PRN PRN Reason: Constipation Last Admin: 02/28/16 09:19 Dose: 30 ml Midodrine (Proamatine) 10 mg PO TID [facility] Last Admin: 03/12/16 13:00 Dose: 10 mg Quetiapine Fumarate (Seroquel) 50 mg PO HS PRN PRN Reason: Agitation Last Admin: 03/09/16 21:50 Dose: 50 mg - Labs Labs: 02/19/16 05:10 02/19/16 05:10 - Respiratory Exam Respiratory Exam: NORMAL BREATHING PATTERN - Cardiovascular Exam Cardiovascular Exam: REGULAR RHYTHM - GI/Abdominal Exam GI & Abdominal Exam: Normal Bowel Sounds Assessment and Plan - Assessment and Plan (Free Text) Assessment: Disposition?? 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 ID consult appreciated
[2016-03-13] MEDS: LEVODOPA PO SCH ×3 (05:06→21:11)
[2016-03-13] MEDS: CARBIDOPA PO SCH ×3 (05:06→21:11)
[2016-03-13] MEDS: Bethanechol 50 MG TAB PO SCH ×3 (09:37→16:39)
--- NOTE | 2016-03-13 20:07 | CP.PCM.PN ---
Subjective - Date & Time of Evaluation Date of Evaluation: 03/13/16 Time of Evaluation: 22:22 - Subjective Subjective: above noted Objective - Vital Signs/Intake and Output Vital Signs (last 24 hours): Temp Pulse Resp BP Pulse Ox 98 F 74 18 148/90 98 03/13/16 17:47 03/13/16 17:47 03/13/16 17:47 03/13/16 17:47 03/13/16 17:47 - Medications Medications: Current Medications Acetaminophen (Tylenol 325mg Tab) 650 mg PO Q6 PRN PRN Reason: Pain, Mild (1-3) Last Admin: 03/11/16 17:23 Dose: 650 mg Bethanechol Chloride (Urecholine) 50 mg PO TID [facility] Last Admin: 03/13/16 16:39 Dose: 50 mg Carbidopa/Levodopa (Rytary Er 48.75 Mg-195 Mg Cap) 1 cap PO TID@0500,1300,2100 [facility] Last Admin: 03/13/16 13:12 Dose: 1 cap Docusate Sodium (Colace) 100 mg PO BID [facility] Last Admin: 03/13/16 16:39 Dose: 100 mg Fluocinonide (Lidex 0.05% Oint) 1 applic TOP BID [facility] Last Admin: 03/13/16 16:40 Dose: 1 applic Magnesium Hydroxide (Milk Of Magnesia) 30 ml PO DAILY PRN PRN Reason: Constipation Last Admin: 02/28/16 09:19 Dose: 30 ml Midodrine (Proamatine) 10 mg PO TID [facility] Last Admin: 03/13/16 16:40 Dose: 10 mg Quetiapine Fumarate (Seroquel) 50 mg PO HS PRN PRN Reason: Agitation Last Admin: 03/09/16 21:50 Dose: 50 mg - Labs Labs: 02/19/16 05:10 02/19/16 05:10 - Respiratory Exam Respiratory Exam: NORMAL BREATHING PATTERN - Cardiovascular Exam Cardiovascular Exam: REGULAR RHYTHM - GI/Abdominal Exam GI & Abdominal Exam: Normal Bowel Sounds Assessment and Plan - Assessment and Plan (Free Text) Assessment: Disposition?? 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 ID consult appreciated
[2016-03-14] MEDS: LEVODOPA PO SCH ×3 (05:34→21:08)
[2016-03-14] MEDS: CARBIDOPA PO SCH ×3 (05:34→21:08)
[2016-03-14] MEDS: Bethanechol 50 MG TAB PO SCH ×3 (08:37→16:18)
--- NOTE | 2016-03-14 21:19 | CP.PCM.PN ---
Subjective - Date & Time of Evaluation Date of Evaluation: 03/14/16 Time of Evaluation: 22:22 - Subjective Subjective: Resting in bed Objective - Vital Signs/Intake and Output Vital Signs (last 24 hours): Temp Pulse Resp BP Pulse Ox 97 F L 69 18 120/60 98 03/14/16 17:39 03/14/16 17:39 03/14/16 17:39 03/14/16 17:39 03/14/16 17:39 - Medications Medications: Current Medications Acetaminophen (Tylenol 325mg Tab) 650 mg PO Q6 PRN PRN Reason: Pain, Mild (1-3) Last Admin: 03/11/16 17:23 Dose: 650 mg Bethanechol Chloride (Urecholine) 50 mg PO TID [facility] Last Admin: 03/14/16 16:18 Dose: 50 mg Carbidopa/Levodopa (Rytary Er 48.75 Mg-195 Mg Cap) 1 cap PO TID@0500,1300,2100 [facility] Last Admin: 03/14/16 21:08 Dose: 1 cap Docusate Sodium (Colace) 100 mg PO BID [facility] Last Admin: 03/14/16 16:18 Dose: 100 mg Fluocinonide (Lidex 0.05% Oint) 1 applic TOP BID [facility] Last Admin: 03/14/16 16:19 Dose: 1 applic Magnesium Hydroxide (Milk Of Magnesia) 30 ml PO DAILY PRN PRN Reason: Constipation Last Admin: 02/28/16 09:19 Dose: 30 ml Midodrine (Proamatine) 10 mg PO TID [facility] Last Admin: 03/14/16 16:19 Dose: 10 mg Quetiapine Fumarate (Seroquel) 50 mg PO HS PRN PRN Reason: Agitation Last Admin: 03/09/16 21:50 Dose: 50 mg - Labs Labs: 02/19/16 05:10 02/19/16 05:10 - Cardiovascular Exam Cardiovascular Exam: REGULAR RHYTHM - GI/Abdominal Exam GI & Abdominal Exam: Normal Bowel Sounds Assessment and Plan - Assessment and Plan (Free Text) Assessment: Disposition?? 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 ID consult appreciated
[2016-03-15] MEDS: CARBIDOPA PO SCH ×3 (04:53→20:39)
[2016-03-15] MEDS: LEVODOPA PO SCH ×3 (04:53→20:39)
[2016-03-15] MEDS: Bethanechol 50 MG TAB PO SCH ×3 (08:56→16:08)
--- NOTE | 2016-03-15 11:51 | CP.PCM.PN ---
Subjective - Date & Time of Evaluation Date of Evaluation: 03/15/16 Time of Evaluation: 22:22 - Subjective Subjective: above noted Objective - Vital Signs/Intake and Output Vital Signs (last 24 hours): Temp Pulse Resp BP Pulse Ox 97.9 F 71 18 107/61 100 03/15/16 09:00 03/15/16 09:00 03/15/16 09:00 03/15/16 09:00 03/15/16 09:00 - Medications Medications: Current Medications Acetaminophen (Tylenol 325mg Tab) 650 mg PO Q6 PRN PRN Reason: Pain, Mild (1-3) Last Admin: 03/11/16 17:23 Dose: 650 mg Bethanechol Chloride (Urecholine) 50 mg PO TID [facility] Last Admin: 03/15/16 08:56 Dose: 50 mg Carbidopa/Levodopa (Rytary Er 48.75 Mg-195 Mg Cap) 1 cap PO TID@0500,1300,2100 [facility] Last Admin: 03/15/16 04:53 Dose: 1 cap Docusate Sodium (Colace) 100 mg PO BID [facility] Last Admin: 03/15/16 08:56 Dose: 100 mg Fluocinonide (Lidex 0.05% Oint) 1 applic TOP BID [facility] Last Admin: 03/15/16 08:56 Dose: 1 applic Magnesium Hydroxide (Milk Of Magnesia) 30 ml PO DAILY PRN PRN Reason: Constipation Last Admin: 02/28/16 09:19 Dose: 30 ml Midodrine (Proamatine) 10 mg PO TID [facility] Last Admin: 03/15/16 08:56 Dose: 10 mg Quetiapine Fumarate (Seroquel) 50 mg PO HS PRN PRN Reason: Agitation Last Admin: 03/09/16 21:50 Dose: 50 mg - Labs Labs: 02/19/16 05:10 02/19/16 05:10 - Respiratory Exam Respiratory Exam: NORMAL BREATHING PATTERN - Cardiovascular Exam Cardiovascular Exam: REGULAR RHYTHM - GI/Abdominal Exam GI & Abdominal Exam: Normal Bowel Sounds Assessment and Plan - Assessment and Plan (Free Text) Assessment: Disposition?? 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 ID consult appreciated
[2016-03-16] MEDS: LEVODOPA PO SCH ×3 (05:03→21:30)
[2016-03-16] MEDS: CARBIDOPA PO SCH ×3 (05:03→21:30)
[2016-03-16] MEDS: Bethanechol 50 MG TAB PO SCH ×3 (08:53→17:00)
[2016-03-17] MEDS: LEVODOPA PO SCH ×3 (05:00→21:35)
[2016-03-17] MEDS: CARBIDOPA PO SCH ×3 (05:00→21:35)
[2016-03-17] MEDS: Bethanechol 50 MG TAB PO SCH ×3 (09:05→17:20)
[2016-03-18] MEDS: CARBIDOPA PO SCH ×3 (05:05→21:14)
[2016-03-18] MEDS: LEVODOPA PO SCH ×3 (05:05→21:14)
[2016-03-18] MEDS: Bethanechol 50 MG TAB PO SCH ×3 (08:45→17:22)
[2016-03-19] MEDS: CARBIDOPA PO SCH ×3 (05:21→21:14)
[2016-03-19] MEDS: LEVODOPA PO SCH ×3 (05:21→21:14)
[2016-03-19] MEDS: Bethanechol 50 MG TAB PO SCH ×3 (08:54→16:41)
--- NOTE | 2016-03-19 20:24 | CP.PCM.PN ---
Subjective - Date & Time of Evaluation Date of Evaluation: 03/19/16 Time of Evaluation: 22:22 - Subjective Subjective: Above noted Objective - Vital Signs/Intake and Output Vital Signs (last 24 hours): Temp Pulse Resp BP Pulse Ox 96.6 F L 64 20 138/74 96 03/19/16 16:51 03/19/16 16:51 03/19/16 16:51 03/19/16 16:51 03/19/16 16:51 - Medications Medications: Current Medications Acetaminophen (Tylenol 325mg Tab) 650 mg PO Q6 PRN PRN Reason: Pain, Mild (1-3) Last Admin: 03/11/16 17:23 Dose: 650 mg Bethanechol Chloride (Urecholine) 50 mg PO TID [facility] Last Admin: 03/19/16 16:41 Dose: 50 mg Carbidopa/Levodopa (Rytary Er 48.75 Mg-195 Mg Cap) 1 cap PO TID@0500,1300,2100 [facility] Last Admin: 03/19/16 13:05 Dose: 1 cap Docusate Sodium (Colace) 100 mg PO BID [facility] Last Admin: 03/19/16 16:41 Dose: 100 mg Fluocinonide (Lidex 0.05% Oint) 1 applic TOP BID [facility] Last Admin: 03/19/16 16:41 Dose: 1 applic Magnesium Hydroxide (Milk Of Magnesia) 30 ml PO DAILY PRN PRN Reason: Constipation Last Admin: 02/28/16 09:19 Dose: 30 ml Midodrine (Proamatine) 10 mg PO TID [facility] Last Admin: 03/19/16 16:42 Dose: 10 mg Quetiapine Fumarate (Seroquel) 50 mg PO HS PRN PRN Reason: Agitation Last Admin: 03/16/16 21:30 Dose: 50 mg - Labs Labs: 02/19/16 05:10 02/19/16 05:10 - Respiratory Exam Respiratory Exam: NORMAL BREATHING PATTERN - Cardiovascular Exam Cardiovascular Exam: REGULAR RHYTHM - GI/Abdominal Exam GI & Abdominal Exam: Normal Bowel Sounds Assessment and Plan - Assessment and Plan (Free Text) Assessment: Disposition?? 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 ID consult appreciated
[2016-03-20] MEDS: CARBIDOPA PO SCH ×3 (05:20→21:05)
[2016-03-20] MEDS: LEVODOPA PO SCH ×3 (05:20→21:05)
[2016-03-20] MEDS: Bethanechol 50 MG TAB PO SCH ×3 (08:20→16:10)
--- NOTE | 2016-03-20 20:23 | CP.PCM.PN ---
Subjective - Date & Time of Evaluation Date of Evaluation: 03/20/16 Time of Evaluation: 22:22 - Subjective Subjective: Sleeping Objective - Vital Signs/Intake and Output Vital Signs (last 24 hours): Temp Pulse Resp BP Pulse Ox 97 F L 88 20 163/98 H 99 03/20/16 17:04 03/20/16 17:04 03/20/16 17:04 03/20/16 17:04 03/20/16 17:04 - Medications Medications: Current Medications Acetaminophen (Tylenol 325mg Tab) 650 mg PO Q6 PRN PRN Reason: Pain, Mild (1-3) Last Admin: 03/20/16 13:49 Dose: 650 mg Bethanechol Chloride (Urecholine) 50 mg PO TID [facility] Last Admin: 03/20/16 16:10 Dose: 50 mg Carbidopa/Levodopa (Rytary Er 48.75 Mg-195 Mg Cap) 1 cap PO TID@0500,1300,2100 [facility] Last Admin: 03/20/16 12:15 Dose: 1 cap Docusate Sodium (Colace) 100 mg PO BID [facility] Last Admin: 03/20/16 16:09 Dose: 100 mg Fluocinonide (Lidex 0.05% Oint) 1 applic TOP BID [facility] Last Admin: 03/20/16 16:09 Dose: 1 applic Magnesium Hydroxide (Milk Of Magnesia) 30 ml PO DAILY PRN PRN Reason: Constipation Last Admin: 02/28/16 09:19 Dose: 30 ml Midodrine (Proamatine) 10 mg PO TID [facility] Last Admin: 03/20/16 16:09 Dose: 10 mg Quetiapine Fumarate (Seroquel) 50 mg PO HS PRN PRN Reason: Agitation Last Admin: 03/19/16 21:13 Dose: 50 mg - Labs Labs: 02/19/16 05:10 02/19/16 05:10 - Respiratory Exam Respiratory Exam: NORMAL BREATHING PATTERN - Cardiovascular Exam Cardiovascular Exam: REGULAR RHYTHM - GI/Abdominal Exam GI & Abdominal Exam: Normal Bowel Sounds Assessment and Plan - Assessment and Plan (Free Text) Assessment: Disposition?? 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 ID consult appreciated
[2016-03-21] MEDS: LEVODOPA PO SCH ×3 (04:51→20:27)
[2016-03-21] MEDS: CARBIDOPA PO SCH ×3 (04:51→20:27)
[2016-03-21] MEDS: Bethanechol 50 MG TAB PO SCH ×3 (08:47→16:17)
--- NOTE | 2016-03-21 20:18 | CP.PCM.PN ---
Subjective - Date & Time of Evaluation Date of Evaluation: 03/21/16 Time of Evaluation: 22:22 - Subjective Subjective: Above noted Objective - Vital Signs/Intake and Output Vital Signs (last 24 hours): Temp Pulse Resp BP Pulse Ox 96.8 F L 82 20 110/78 98 03/21/16 17:15 03/21/16 17:15 03/21/16 17:15 03/21/16 17:15 03/21/16 17:15 - Medications Medications: Current Medications Acetaminophen (Tylenol 325mg Tab) 650 mg PO Q6 PRN PRN Reason: Pain, Mild (1-3) Last Admin: 03/20/16 13:49 Dose: 650 mg Bethanechol Chloride (Urecholine) 50 mg PO TID [facility] Last Admin: 03/21/16 16:17 Dose: 50 mg Carbidopa/Levodopa (Rytary Er 48.75 Mg-195 Mg Cap) 1 cap PO TID@0500,1300,2100 [facility] Last Admin: 03/21/16 12:37 Dose: 1 cap Docusate Sodium (Colace) 100 mg PO BID [facility] Last Admin: 03/21/16 16:16 Dose: 100 mg Fluocinonide (Lidex 0.05% Oint) 1 applic TOP BID [facility] Last Admin: 03/21/16 16:16 Dose: 1 applic Magnesium Hydroxide (Milk Of Magnesia) 30 ml PO DAILY PRN PRN Reason: Constipation Last Admin: 02/28/16 09:19 Dose: 30 ml Midodrine (Proamatine) 10 mg PO TID [facility] Last Admin: 03/21/16 16:16 Dose: 10 mg Quetiapine Fumarate (Seroquel) 50 mg PO HS PRN PRN Reason: Agitation Last Admin: 03/19/16 21:13 Dose: 50 mg - Labs Labs: 02/19/16 05:10 02/19/16 05:10 - Respiratory Exam Respiratory Exam: NORMAL BREATHING PATTERN - Cardiovascular Exam Cardiovascular Exam: REGULAR RHYTHM - GI/Abdominal Exam GI & Abdominal Exam: Normal Bowel Sounds Assessment and Plan - Assessment and Plan (Free Text) Assessment: Disposition?? 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 ID consult appreciated
[2016-03-22] MEDS: CARBIDOPA PO SCH ×3 (04:52→20:43)
[2016-03-22] MEDS: LEVODOPA PO SCH ×3 (04:52→20:43)
[2016-03-22] MEDS: Bethanechol 50 MG TAB PO SCH ×3 (09:40→16:56)
--- NOTE | 2016-03-22 18:52 | CP.PCM.PN ---
Subjective - Date & Time of Evaluation Date of Evaluation: 03/22/16 Time of Evaluation: 22:22 - Subjective Subjective: Sitting in bed Objective - Vital Signs/Intake and Output Vital Signs (last 24 hours): Temp Pulse Resp BP Pulse Ox 97.3 F L 62 20 124/72 95 03/22/16 07:41 03/22/16 07:41 03/22/16 07:41 03/22/16 07:41 03/22/16 07:41 - Medications Medications: Current Medications Acetaminophen (Tylenol 325mg Tab) 650 mg PO Q6 PRN PRN Reason: Pain, Mild (1-3) Last Admin: 03/20/16 13:49 Dose: 650 mg Bethanechol Chloride (Urecholine) 50 mg PO TID [facility] Last Admin: 03/22/16 16:56 Dose: 50 mg Carbidopa/Levodopa (Rytary Er 48.75 Mg-195 Mg Cap) 1 cap PO TID@0500,1300,2100 [facility] Last Admin: 03/22/16 13:18 Dose: 1 cap Docusate Sodium (Colace) 100 mg PO BID [facility] Last Admin: 03/22/16 16:55 Dose: 100 mg Fluocinonide (Lidex 0.05% Oint) 1 applic TOP BID [facility] Last Admin: 03/22/16 09:41 Dose: 1 applic Magnesium Hydroxide (Milk Of Magnesia) 30 ml PO DAILY PRN PRN Reason: Constipation Last Admin: 02/28/16 09:19 Dose: 30 ml Midodrine (Proamatine) 10 mg PO TID [facility] Last Admin: 03/22/16 16:55 Dose: 10 mg Quetiapine Fumarate (Seroquel) 50 mg PO HS PRN PRN Reason: Agitation Last Admin: 03/19/16 21:13 Dose: 50 mg - Labs Labs: 02/19/16 05:10 02/19/16 05:10 - Respiratory Exam Respiratory Exam: NORMAL BREATHING PATTERN - Cardiovascular Exam Cardiovascular Exam: REGULAR RHYTHM - GI/Abdominal Exam GI & Abdominal Exam: Normal Bowel Sounds Assessment and Plan - Assessment and Plan (Free Text) Assessment: Disposition?? awaiting transfer to [place] Pt is competent Social service and family involved Pt is [place] WWII MSA Parkinson Dx Shry Drager PT Rytary Midodrine Constipation Improved R shoulder pain xrays subluxation Anemia normochromic normocytic 2 to chronic dx Decubitus ulcer buttocks DVT prophylaxis SCD (no Lovenox due to thrombocytopenia) S/P UTI Enterrococus S/P Urinary retention S/P UTI Proteus S/P Pnuemonia S/P Hypotension [facility] 2 to Dehydration Meds L shoulder pain x rays neg RLE rash Dermatiis vs cellulitis?? ID consult appreciated
[2016-03-23] MEDS: LEVODOPA PO SCH ×3 (05:15→22:03)
[2016-03-23] MEDS: CARBIDOPA PO SCH ×3 (05:15→22:03)
[2016-03-23] MEDS: Bethanechol 50 MG TAB PO SCH ×3 (09:37→16:23)
[2016-03-24] MEDS: CARBIDOPA PO SCH ×3 (05:04→21:45)
[2016-03-24] MEDS: LEVODOPA PO SCH ×3 (05:04→21:45)
[2016-03-24] MEDS: Bethanechol 50 MG TAB PO SCH ×3 (08:13→16:06)
--- NOTE | 2016-03-24 15:31 | CP.PCM.PN ---
Subjective - Date & Time of Evaluation Date of Evaluation: 03/24/16 Time of Evaluation: 22:22 - Subjective Subjective: Above noted Objective - Vital Signs/Intake and Output Vital Signs (last 24 hours): Temp Pulse Resp BP Pulse Ox 97.1 F L 64 18 106/71 98 03/24/16 08:23 03/24/16 08:23 03/24/16 08:23 03/24/16 08:23 03/24/16 08:23 - Medications Medications: Current Medications Acetaminophen (Tylenol 325mg Tab) 650 mg PO Q6 PRN PRN Reason: Pain, Mild (1-3) Last Admin: 03/24/16 09:46 Dose: 650 mg Bethanechol Chloride (Urecholine) 50 mg PO TID [facility] Last Admin: 03/24/16 12:14 Dose: 50 mg Carbidopa/Levodopa (Rytary Er 48.75 Mg-195 Mg Cap) 1 cap PO TID@0500,1300,2100 [facility] Last Admin: 03/24/16 12:14 Dose: 1 cap Docusate Sodium (Colace) 100 mg PO BID [facility] Last Admin: 03/24/16 08:13 Dose: 100 mg Fluocinonide (Lidex 0.05% Oint) 1 applic TOP BID [facility] Last Admin: 03/24/16 08:13 Dose: 1 applic Magnesium Hydroxide (Milk Of Magnesia) 30 ml PO DAILY PRN PRN Reason: Constipation Last Admin: 02/28/16 09:19 Dose: 30 ml Midodrine (Proamatine) 10 mg PO TID [facility] Last Admin: 03/24/16 12:13 Dose: 10 mg Quetiapine Fumarate (Seroquel) 50 mg PO HS PRN PRN Reason: Agitation Last Admin: 03/23/16 22:04 Dose: 50 mg - Labs Labs: 02/19/16 05:10 02/19/16 05:10 - Respiratory Exam Respiratory Exam: NORMAL BREATHING PATTERN - Cardiovascular Exam Cardiovascular Exam: REGULAR RHYTHM - GI/Abdominal Exam GI & Abdominal Exam: Normal Bowel Sounds Assessment and Plan - Assessment and Plan (Free Text) Assessment: Disposition?? 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 ID consult appreciated
[2016-03-25] MEDS: LEVODOPA PO SCH ×3 (04:16→21:21)
[2016-03-25] MEDS: CARBIDOPA PO SCH ×3 (04:16→21:21)
[2016-03-25] MEDS: Bethanechol 50 MG TAB PO SCH ×3 (08:44→16:57)
--- NOTE | 2016-03-25 19:29 | CP.PCM.CON ---
History of Present Illness - History of Present Illness History of Present Illness: 85 year old male pt suffering form Parkinson's Disease re-consulted concerning elongated toenails. Communication is difficult due to advance stage of Parkinson 's. Pt seen at bedside and was resting comfortably. Discussed pts over all condition with shift nurse who states pt has note suffered from recent n/v/f/c/ cp/sob. Review of Systems - Constitutional Constitutional: As Per HPI Past Patient History - Tetanus Immunizations Tetanus Immunization: Unknown - Past Medical History & Family History Past Medical History?: Yes - Past Social History Smoking Status: Never Smoked - CARDIAC Hx Cardiac Disorders: No Hx Congestive Heart Failure: No Hx Hypercholesterolemia: No Hx Hypertension: No - PULMONARY Hx Chronic Obstructive Pulmonary Disease (COPD): No - NEUROLOGICAL HX Cerebrovascular Accident: No - HEENT Hx HEENT Problems: Yes Hx Cataracts: No Hx Deafness: No Hx Difficulty Chewing: No Hx Epistaxis: No Hx Glaucoma: Yes Hx Macular Degeneration: No - RENAL Hx Renal Failure: No - ENDOCRINE/METABOLIC Hx Diabetes Mellitus Type 1: No Hx Diabetes Mellitus Type 2: No Hx Hypothyroidism: No - HEMATOLOGICAL/ONCOLOGICAL Hx Anemia: No Hx Human Immunodeficiency Virus (HIV): No Hx Sickle Cell Disease: No - INTEGUMENTARY Hx Dermatological Problems: No Hx Basil Cell: No Hx Silva: No Hx Cellulitis: Yes (right leg) Hx Eczema: No Hx Melanoma: No Hx Psoriasis: No Hx Squamous Cell: No - MUSCULOSKELETAL/RHEUMATOLOGICAL Hx Arthritis: No Hx Rheumatoid Arthritis: No - GASTROINTESTINAL Hx Crohn's Disease: No Hx Diverticulitis: No Hx Gall Bladder Disease: No Hx Gastritis: No Hx Pancreatitis: No - GENITOURINARY/GYNECOLOGICAL Hx Sexually Transmitted Disorders: No - PSYCHIATRIC Hx Anxiety: Yes Hx Depression: Yes - SURGICAL HISTORY Hx Appendectomy: Yes Hx Carotid Endarterectomy: No Hx Cholecystectomy: No Hx Coronary Artery Bypass Graft: No Hx Coronary Stent: No Hx Tonsillectomy: Yes - ANESTHESIA Hx Anesthesia: Yes Hx Anesthesia Reactions: No Hx Malignant Hyperthermia: No Meds Allergies/Adverse Reactions: Allergies Allergy/AdvReac Type Severity Reaction Status Date / Time Penicillins Allergy Hives Verified 08/01/15 06:34 - Medications Medications: Current Medications Acetaminophen (Tylenol 325mg Tab) 650 mg PO Q6 PRN PRN Reason: Pain, Mild (1-3) Last Admin: 03/24/16 09:46 Dose: 650 mg Bethanechol Chloride (Urecholine) 50 mg PO TID [facility] Last Admin: 03/25/16 16:57 Dose: 50 mg Carbidopa/Levodopa (Rytary Er 48.75 Mg-195 Mg Cap) 1 cap PO TID@0500,1300,2100 [facility] Last Admin: 03/25/16 12:42 Dose: 1 cap Docusate Sodium (Colace) 100 mg PO BID [facility] Last Admin: 03/25/16 16:55 Dose: 100 mg Fluocinonide (Lidex 0.05% Oint) 1 applic TOP BID [facility] Last Admin: 03/25/16 16:55 Dose: 1 applic Magnesium Hydroxide (Milk Of Magnesia) 30 ml PO DAILY PRN PRN Reason: Constipation Last Admin: 02/28/16 09:19 Dose: 30 ml Midodrine (Proamatine) 10 mg PO TID [facility] Last Admin: 03/25/16 16:56 Dose: 10 mg Quetiapine Fumarate (Seroquel) 50 mg PO HS PRN PRN Reason: Agitation Last Admin: 03/24/16 21:45 Dose: 50 mg Physical Exam - Constitutional Appears: Well, Non-toxic, No Acute Distress - Extremities Exam Additional comments: Lower extremity focused. DERM: no edema, no erythema, All 10 nails are elongated, discolored w/ subungual debris. Incurvated b/l borders noted to right hallux nail. Diffuse non -tender hyperkeratotic tissue noted b/l. VACS: Pedal pulses to PT and DP are palpable graded 2/4. No edema noted, temperature gradient runs warm to cool proximal to distal. NEURO:Grossly diminished bilaterally. ORTHO: muscle power +4/5. No pain noted on end ROM for major pedal joints bilaterally. No gross deformities noted. 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 Chart and vitals reviewed. Discussed pt with attending Dr. Buck. Performed aseptic onychoreduction to all 10 toenails without incident. Pt is stable form podiatric standpoint. Thank you for this consult and please reconsult as needed for this patient.
--- NOTE | 2016-03-25 20:15 | CP.PCM.PN ---
Subjective - Date & Time of Evaluation Date of Evaluation: 03/25/16 Time of Evaluation: 22:22 - Subjective Subjective: Above noted Objective - Vital Signs/Intake and Output Vital Signs (last 24 hours): Temp Pulse Resp BP Pulse Ox 96 F L 75 20 112/70 97 03/25/16 15:49 03/25/16 15:49 03/25/16 15:49 03/25/16 15:49 03/25/16 15:49 - Medications Medications: Current Medications Acetaminophen (Tylenol 325mg Tab) 650 mg PO Q6 PRN PRN Reason: Pain, Mild (1-3) Last Admin: 03/24/16 09:46 Dose: 650 mg Bethanechol Chloride (Urecholine) 50 mg PO TID [facility] Last Admin: 03/25/16 16:57 Dose: 50 mg Carbidopa/Levodopa (Rytary Er 48.75 Mg-195 Mg Cap) 1 cap PO TID@0500,1300,2100 [facility] Last Admin: 03/25/16 12:42 Dose: 1 cap Docusate Sodium (Colace) 100 mg PO BID [facility] Last Admin: 03/25/16 16:55 Dose: 100 mg Fluocinonide (Lidex 0.05% Oint) 1 applic TOP BID [facility] Last Admin: 03/25/16 16:55 Dose: 1 applic Magnesium Hydroxide (Milk Of Magnesia) 30 ml PO DAILY PRN PRN Reason: Constipation Last Admin: 02/28/16 09:19 Dose: 30 ml Midodrine (Proamatine) 10 mg PO TID [facility] Last Admin: 03/25/16 16:56 Dose: 10 mg Quetiapine Fumarate (Seroquel) 50 mg PO HS PRN PRN Reason: Agitation Last Admin: 03/24/16 21:45 Dose: 50 mg - Labs Labs: 02/19/16 05:10 02/19/16 05:10 - Respiratory Exam Respiratory Exam: NORMAL BREATHING PATTERN - Cardiovascular Exam Cardiovascular Exam: REGULAR RHYTHM - GI/Abdominal Exam GI & Abdominal Exam: Normal Bowel Sounds Assessment and Plan - Assessment and Plan (Free Text) Assessment: Disposition?? 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 ID consult appreciated
[2016-03-26] MEDS: CARBIDOPA PO SCH ×3 (05:11→20:08)
[2016-03-26] MEDS: LEVODOPA PO SCH ×3 (05:11→20:08)
[2016-03-26] MEDS: Bethanechol 50 MG TAB PO SCH ×3 (08:55→17:47)
--- NOTE | 2016-03-26 18:49 | CP.PCM.PN ---
Subjective - Date & Time of Evaluation Date of Evaluation: 03/26/16 Time of Evaluation: 22:22 - Subjective Subjective: Above noted Objective - Vital Signs/Intake and Output Vital Signs (last 24 hours): Temp Pulse Resp BP Pulse Ox 98.1 F 91 H 18 112/66 95 03/26/16 16:09 03/26/16 16:09 03/26/16 16:09 03/26/16 16:09 03/26/16 16:09 - Medications Medications: Current Medications Acetaminophen (Tylenol 325mg Tab) 650 mg PO Q6 PRN PRN Reason: Pain, Mild (1-3) Last Admin: 03/24/16 09:46 Dose: 650 mg Bethanechol Chloride (Urecholine) 50 mg PO TID [facility] Last Admin: 03/26/16 17:47 Dose: 50 mg Carbidopa/Levodopa (Rytary Er 48.75 Mg-195 Mg Cap) 1 cap PO TID@0500,1300,2100 [facility] Last Admin: 03/26/16 13:08 Dose: 1 cap Docusate Sodium (Colace) 100 mg PO BID [facility] Last Admin: 03/26/16 17:46 Dose: 100 mg Fluocinonide (Lidex 0.05% Oint) 1 applic TOP BID [facility] Last Admin: 03/26/16 17:46 Dose: 1 applic Magnesium Hydroxide (Milk Of Magnesia) 30 ml PO DAILY PRN PRN Reason: Constipation Last Admin: 02/28/16 09:19 Dose: 30 ml Midodrine (Proamatine) 10 mg PO TID [facility] Last Admin: 03/26/16 17:46 Dose: 10 mg Quetiapine Fumarate (Seroquel) 50 mg PO HS PRN PRN Reason: Agitation Last Admin: 03/24/16 21:45 Dose: 50 mg - Labs Labs: 02/19/16 05:10 02/19/16 05:10 - Respiratory Exam Respiratory Exam: NORMAL BREATHING PATTERN - Cardiovascular Exam Cardiovascular Exam: REGULAR RHYTHM - GI/Abdominal Exam GI & Abdominal Exam: Normal Bowel Sounds Assessment and Plan - Assessment and Plan (Free Text) Assessment: Disposition?? 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 ID consult appreciated
[2016-03-27] MEDS: CARBIDOPA PO SCH ×3 (05:17→20:51)
[2016-03-27] MEDS: LEVODOPA PO SCH ×3 (05:17→20:51)
[2016-03-27] MEDS: Bethanechol 50 MG TAB PO SCH ×3 (09:51→17:49)
--- NOTE | 2016-03-27 16:03 | CP.PCM.PN ---
Subjective - Date & Time of Evaluation Date of Evaluation: 03/27/16 Time of Evaluation: 22:22 - Subjective Subjective: Above noted Objective - Vital Signs/Intake and Output Vital Signs (last 24 hours): Temp Pulse Resp BP Pulse Ox 98.1 F 74 20 132/72 93 L 03/27/16 08:37 03/27/16 08:37 03/27/16 08:37 03/27/16 08:37 03/27/16 08:37 - Medications Medications: Current Medications Acetaminophen (Tylenol 325mg Tab) 650 mg PO Q6 PRN PRN Reason: Pain, Mild (1-3) Last Admin: 03/24/16 09:46 Dose: 650 mg Bethanechol Chloride (Urecholine) 50 mg PO TID [facility] Last Admin: 03/27/16 13:52 Dose: 50 mg Carbidopa/Levodopa (Rytary Er 48.75 Mg-195 Mg Cap) 1 cap PO TID@0500,1300,2100 [facility] Last Admin: 03/27/16 13:51 Dose: 1 cap Docusate Sodium (Colace) 100 mg PO BID [facility] Last Admin: 03/27/16 09:51 Dose: 100 mg Fluocinonide (Lidex 0.05% Oint) 1 applic TOP BID [facility] Last Admin: 03/27/16 09:51 Dose: 1 applic Magnesium Hydroxide (Milk Of Magnesia) 30 ml PO DAILY PRN PRN Reason: Constipation Last Admin: 02/28/16 09:19 Dose: 30 ml Midodrine (Proamatine) 10 mg PO TID [facility] Last Admin: 03/27/16 13:52 Dose: 10 mg Quetiapine Fumarate (Seroquel) 50 mg PO HS PRN PRN Reason: Agitation Last Admin: 03/24/16 21:45 Dose: 50 mg - Labs Labs: 02/19/16 05:10 02/19/16 05:10 - Respiratory Exam Respiratory Exam: NORMAL BREATHING PATTERN - Cardiovascular Exam Cardiovascular Exam: REGULAR RHYTHM - GI/Abdominal Exam GI & Abdominal Exam: Normal Bowel Sounds Assessment and Plan - Assessment and Plan (Free Text) Assessment: Disposition?? 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 ID consult appreciated
[2016-03-28] MEDS: LEVODOPA PO SCH ×3 (04:58→20:47)
[2016-03-28] MEDS: CARBIDOPA PO SCH ×3 (04:58→20:47)
[2016-03-28] MEDS: Bethanechol 50 MG TAB PO SCH ×3 (08:42→16:03)
--- NOTE | 2016-03-28 20:58 | CP.PCM.PN ---
Subjective - Date & Time of Evaluation Date of Evaluation: 03/28/16 Time of Evaluation: 22:22 - Subjective Subjective: Increased stiffness Objective - Vital Signs/Intake and Output Vital Signs (last 24 hours): Temp Pulse Resp BP Pulse Ox 98 F 67 20 133/83 98 03/28/16 16:31 03/28/16 16:31 03/28/16 16:31 03/28/16 16:31 03/28/16 16:31 - Medications Medications: Current Medications Acetaminophen (Tylenol 325mg Tab) 650 mg PO Q6 PRN PRN Reason: Pain, Mild (1-3) Last Admin: 03/24/16 09:46 Dose: 650 mg Bethanechol Chloride (Urecholine) 50 mg PO TID [facility] Last Admin: 03/28/16 16:03 Dose: 50 mg Carbidopa/Levodopa (Rytary Er 48.75 Mg-195 Mg Cap) 1 cap PO TID@0500,1300,2100 [facility] Last Admin: 03/28/16 20:47 Dose: 1 cap Docusate Sodium (Colace) 100 mg PO BID [facility] Last Admin: 03/28/16 16:03 Dose: 100 mg Fluocinonide (Lidex 0.05% Oint) 1 applic TOP BID [facility] Last Admin: 03/28/16 16:03 Dose: 1 applic Magnesium Hydroxide (Milk Of Magnesia) 30 ml PO DAILY PRN PRN Reason: Constipation Last Admin: 02/28/16 09:19 Dose: 30 ml Midodrine (Proamatine) 10 mg PO TID [facility] Last Admin: 03/28/16 16:03 Dose: 10 mg Quetiapine Fumarate (Seroquel) 50 mg PO HS PRN PRN Reason: Agitation Last Admin: 03/24/16 21:45 Dose: 50 mg - Labs Labs: 02/19/16 05:10 02/19/16 05:10 - Respiratory Exam Respiratory Exam: NORMAL BREATHING PATTERN - Cardiovascular Exam Cardiovascular Exam: REGULAR RHYTHM - GI/Abdominal Exam GI & Abdominal Exam: Normal Bowel Sounds Assessment and Plan - Assessment and Plan (Free Text) Assessment: MSA Parkinsons DX Shry Drager PT Rytary Midodrine Reconsult Neuro Disposition?? 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 ID consult appreciated
[2016-03-29] MEDS: CARBIDOPA PO SCH ×3 (05:00→20:05)
[2016-03-29] MEDS: LEVODOPA PO SCH ×3 (05:00→20:05)
[2016-03-29] MEDS: Bethanechol 50 MG TAB PO SCH ×3 (08:49→16:13)
--- NOTE | 2016-03-29 13:42 | CON ---
DATE: 03/29/2016 CHIEF COMPLAINT: Reevaluation of stiffness from the patient's Parkinson's. HISTORY OF PRESENT ILLNESS: The patient is a known patient to me. 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 During his course in the hospital, he underwent urinary tract infections, had some underlying p neumonia which has all been resolved and have been improving. He has occasional electrolyte derangem ents and fluctuating blood pressures from hyper to hypotension which is consistent with Shy-Drager's. I was consulted for increased stiffness. I feel like, since he has been back on the Rytary of 48.7 5 p.o. t.i.d., I feel like his tremors are better and his stiffness is much better than when I previo usly saw him. At this time, no acute events overnight. No hallucinations. He is on Seroquel for ag itation p.r.n. PAST MEDICAL HISTORY: History of Parkinson's disease, Shy-Drager syndrome, arthritis, recurrent fall s. REVIEW OF SYSTEMS: A 14-point review of systems is negative except for the HPI. MEDICATIONS: Reviewed via nurse's reconciliation sheet. ALLERGIES: ALLERGIC TO PENICILLIN. SOCIAL HISTORY: No illicit drug use, smoking, or ETOH abuse. PHYSICAL EXAMINATION: VITAL SIGNS: Reviewed. GENERAL: The patient is sitting up in the chair, in no acute distress. HEENT: Atraumatic, normocephalic. PERRLA. Extraocular muscles intact. NECK: Supple, no JVD, no adenopathy noted. LUNGS: Clear to auscultation. No adventitious sounds. HEART: S1, S2, normal rate and rhythm. No murmurs, rubs, or gallops. ABDOMEN: Soft, nontender, nondistended. Bowel sounds are present. EXTREMITIES: No clubbing, no cyanosis. Peripheral pulses 2+ felt bilaterally. NEUROLOGIC: The patient is alert, oriented to person and place, not much of month and year. Poor at tention span, slow thought process. Recall after 5 minutes is 0/3. Speech is hypophonic, mask-like facies. Cranial nerves II-XII are intact. MOTOR: Slight increased tone throughout, increased cogwheel rigidity at both wrists. SENSORY: Light touch, pinprick, proprioception, vibration is intact bilaterally. DTRs 2+ throughout . COORDINATION: [id number] intact. Gait is deferred for now. LABORATORY DATA: Reviewed. 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 I was reconsulted for increased stiffness. I feel like, based on my n eurological exam from previous visit, I feel that his tremors and stiffness are much more improved si nce he has been on the Rytary. 1. Could consider low dose baclofen when he initiates therapy of 10 mg, especially at night at bedti me if needed to help with the stiffness, but most of the stiffness will improve with the more physica l therapy that he does. 2. I recommend to continue his Rytary 48.75 p.o. t.i.d. for his underlying Parkinson's disease. 3. Continue to monitor him for his underlying Shy-Drager syndrome for his orthostatic hypotension. 4. He will need long-term placement and continue to work with case management. Once again, thank you for this consult. Casey Andrade MD cc: [id number] TT: 03/29/2016 13:41:47 Confirmation # [id number] Dictation # [id number] tn
--- NOTE | 2016-03-29 18:32 | CP.PCM.PN ---
Subjective - Date & Time of Evaluation Date of Evaluation: 03/29/16 Time of Evaluation: 22:22 - Subjective Subjective: Above noted Objective - Vital Signs/Intake and Output Vital Signs (last 24 hours): Temp Pulse Resp BP Pulse Ox 97.1 F L 70 20 110/73 94 L 03/29/16 09:04 03/29/16 09:04 03/29/16 09:04 03/29/16 09:04 03/29/16 09:04 - Medications Medications: Current Medications Acetaminophen (Tylenol 325mg Tab) 650 mg PO Q6 PRN PRN Reason: Pain, Mild (1-3) Last Admin: 03/24/16 09:46 Dose: 650 mg Bethanechol Chloride (Urecholine) 50 mg PO TID [facility] Last Admin: 03/29/16 16:13 Dose: 50 mg Carbidopa/Levodopa (Rytary Er 48.75 Mg-195 Mg Cap) 1 cap PO TID@0500,1300,2100 [facility] Last Admin: 03/29/16 13:58 Dose: 1 cap Docusate Sodium (Colace) 100 mg PO BID [facility] Last Admin: 03/29/16 16:13 Dose: 100 mg Fluocinonide (Lidex 0.05% Oint) 1 applic TOP BID [facility] Last Admin: 03/29/16 16:13 Dose: 1 applic Magnesium Hydroxide (Milk Of Magnesia) 30 ml PO DAILY PRN PRN Reason: Constipation Last Admin: 02/28/16 09:19 Dose: 30 ml Midodrine (Proamatine) 10 mg PO TID [facility] Last Admin: 03/29/16 16:13 Dose: 10 mg Quetiapine Fumarate (Seroquel) 50 mg PO HS PRN PRN Reason: Agitation Last Admin: 03/24/16 21:45 Dose: 50 mg - Labs Labs: 02/19/16 05:10 02/19/16 05:10 - Respiratory Exam Respiratory Exam: NORMAL BREATHING PATTERN - Cardiovascular Exam Cardiovascular Exam: REGULAR RHYTHM - GI/Abdominal Exam GI & Abdominal Exam: Normal Bowel Sounds Assessment and Plan - Assessment and Plan (Free Text) Assessment: MSA Parkinsons DX Lilia Vieira PT Rytary Midodrine Reconsult Neuro Disposition?? 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 ID consult appreciated
[2016-03-30] MEDS: CARBIDOPA PO SCH ×3 (04:03→21:08)
[2016-03-30] MEDS: LEVODOPA PO SCH ×3 (04:03→21:08)
[2016-03-30] MEDS: Bethanechol 50 MG TAB PO SCH ×3 (09:14→17:00)
[2016-03-31] MEDS: LEVODOPA PO SCH ×3 (05:00→20:54)
[2016-03-31] MEDS: CARBIDOPA PO SCH ×3 (05:00→20:54)
[2016-03-31] MEDS: Bethanechol 50 MG TAB PO SCH ×3 (08:24→16:37)
--- NOTE | 2016-03-31 19:09 | CP.PCM.PN ---
Subjective - Date & Time of Evaluation Date of Evaluation: 03/31/16 Time of Evaluation: 22:22 - Subjective Subjective: Above noted Neurology consult appreciated Objective - Vital Signs/Intake and Output Vital Signs (last 24 hours): Temp Pulse Resp BP Pulse Ox 98.1 F 73 20 115/77 98 03/31/16 16:20 03/31/16 16:20 03/31/16 16:20 03/31/16 16:20 03/31/16 16:20 - Medications Medications: Current Medications Acetaminophen (Tylenol 325mg Tab) 650 mg PO Q6 PRN PRN Reason: Pain, Mild (1-3) Last Admin: 03/31/16 16:41 Dose: 650 mg Bethanechol Chloride (Urecholine) 50 mg PO TID [facility] Last Admin: 03/31/16 16:37 Dose: 50 mg Carbidopa/Levodopa (Rytary Er 48.75 Mg-195 Mg Cap) 1 cap PO TID@0500,1300,2100 [facility] Last Admin: 03/31/16 12:42 Dose: 1 cap Docusate Sodium (Colace) 100 mg PO BID [facility] Last Admin: 03/31/16 08:24 Dose: 100 mg Fluocinonide (Lidex 0.05% Oint) 1 applic TOP BID [facility] Last Admin: 03/31/16 16:42 Dose: 1 applic Magnesium Hydroxide (Milk Of Magnesia) 30 ml PO DAILY PRN PRN Reason: Constipation Last Admin: 02/28/16 09:19 Dose: 30 ml Midodrine (Proamatine) 10 mg PO TID [facility] Last Admin: 03/31/16 16:36 Dose: 10 mg Quetiapine Fumarate (Seroquel) 50 mg PO HS PRN PRN Reason: Agitation Last Admin: 03/30/16 21:08 Dose: 50 mg - Labs Labs: 02/19/16 05:10 02/19/16 05:10 - Respiratory Exam Respiratory Exam: NORMAL BREATHING PATTERN - Cardiovascular Exam Cardiovascular Exam: REGULAR RHYTHM - GI/Abdominal Exam GI & Abdominal Exam: Normal Bowel Sounds Assessment and Plan - Assessment and Plan (Free Text) Assessment: MSA Parkinsons DX Lilia Vieira PT Rytary Midodrine As per Neuro Disposition?? 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 ID consult appreciated
[2016-04-01] MEDS: CARBIDOPA PO SCH ×3 (05:01→20:47)
[2016-04-01] MEDS: LEVODOPA PO SCH ×3 (05:01→20:47)
[2016-04-01] MEDS: Bethanechol 50 MG TAB PO SCH ×3 (08:48→17:02)
[2016-04-01] MEDS: Magnesium Hydroxide Susp 30 ml UD PO PRN (09:59)
--- NOTE | 2016-04-01 20:00 | CP.PCM.PN ---
Subjective - Date & Time of Evaluation Date of Evaluation: 04/01/16 Time of Evaluation: 22:22 - Subjective Subjective: No change in status Objective - Vital Signs/Intake and Output Vital Signs (last 24 hours): Temp Pulse Resp BP Pulse Ox 98.1 F 69 18 125/60 98 04/01/16 17:28 04/01/16 17:28 04/01/16 17:28 04/01/16 17:28 04/01/16 17:28 - Medications Medications: Current Medications Acetaminophen (Tylenol 325mg Tab) 650 mg PO Q6 PRN PRN Reason: Pain, Mild (1-3) Last Admin: 03/31/16 16:41 Dose: 650 mg Bethanechol Chloride (Urecholine) 50 mg PO TID [facility] Last Admin: 04/01/16 17:02 Dose: 50 mg Carbidopa/Levodopa (Rytary Er 48.75 Mg-195 Mg Cap) 1 cap PO TID@0500,1300,2100 [facility] Last Admin: 04/01/16 12:55 Dose: 1 cap Docusate Sodium (Colace) 100 mg PO BID [facility] Last Admin: 04/01/16 17:01 Dose: 100 mg Fluocinonide (Lidex 0.05% Oint) 1 applic TOP BID [facility] Last Admin: 04/01/16 17:01 Dose: 1 applic Magnesium Hydroxide (Milk Of Magnesia) 30 ml PO DAILY PRN PRN Reason: Constipation Last Admin: 04/01/16 09:59 Dose: 30 ml Midodrine (Proamatine) 10 mg PO TID [facility] Last Admin: 04/01/16 17:01 Dose: 10 mg Quetiapine Fumarate (Seroquel) 50 mg PO HS PRN PRN Reason: Agitation Last Admin: 03/31/16 20:54 Dose: 50 mg - Labs Labs: 02/19/16 05:10 02/19/16 05:10 - Respiratory Exam Respiratory Exam: NORMAL BREATHING PATTERN - Cardiovascular Exam Cardiovascular Exam: REGULAR RHYTHM - GI/Abdominal Exam GI & Abdominal Exam: Normal Bowel Sounds Assessment and Plan - Assessment and Plan (Free Text) Assessment: MSA Parkinsons DX Lilia Vieira PT Rytary 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 ID consult appreciated
[2016-04-02] MEDS: LEVODOPA PO SCH ×3 (05:36→20:47)
[2016-04-02] MEDS: CARBIDOPA PO SCH ×3 (05:36→20:47)
[2016-04-02] MEDS: Bethanechol 50 MG TAB PO SCH ×3 (08:43→15:59)
--- NOTE | 2016-04-02 23:53 | CP.PCM.PN ---
Subjective - Date & Time of Evaluation Date of Evaluation: 04/02/16 Time of Evaluation: 22:22 - Subjective Subjective: Sleeping Objective - Vital Signs/Intake and Output Vital Signs (last 24 hours): Temp Pulse Resp BP Pulse Ox 97.3 F L 74 20 124/63 99 04/02/16 16:51 04/02/16 16:51 04/02/16 16:51 04/02/16 16:51 04/02/16 16:51 - Medications Medications: Current Medications Acetaminophen (Tylenol 325mg Tab) 650 mg PO Q6 PRN PRN Reason: Pain, Mild (1-3) Last Admin: 03/31/16 16:41 Dose: 650 mg Bethanechol Chloride (Urecholine) 50 mg PO TID [facility] Last Admin: 04/02/16 15:59 Dose: 50 mg Carbidopa/Levodopa (Rytary Er 48.75 Mg-195 Mg Cap) 1 cap PO TID@0500,1300,2100 [facility] Last Admin: 04/02/16 20:47 Dose: 1 cap Docusate Sodium (Colace) 100 mg PO BID [facility] Last Admin: 04/02/16 15:59 Dose: 100 mg Fluocinonide (Lidex 0.05% Oint) 1 applic TOP BID [facility] Last Admin: 04/02/16 15:59 Dose: 1 applic Magnesium Hydroxide (Milk Of Magnesia) 30 ml PO DAILY PRN PRN Reason: Constipation Last Admin: 04/01/16 09:59 Dose: 30 ml Midodrine (Proamatine) 10 mg PO TID [facility] Last Admin: 04/02/16 15:59 Dose: 10 mg Quetiapine Fumarate (Seroquel) 50 mg PO HS PRN PRN Reason: Agitation Last Admin: 03/31/16 20:54 Dose: 50 mg - Labs Labs: 02/19/16 05:10 02/19/16 05:10 - Respiratory Exam Respiratory Exam: NORMAL BREATHING PATTERN - Cardiovascular Exam Cardiovascular Exam: REGULAR RHYTHM - GI/Abdominal Exam GI & Abdominal Exam: Normal Bowel Sounds Assessment and Plan - Assessment and Plan (Free Text) Assessment: MSA Parkinsons DX Lilia Vieira PT Rytary 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 ID consult appreciated
[2016-04-03] MEDS: CARBIDOPA PO SCH ×3 (04:50→21:01)
[2016-04-03] MEDS: LEVODOPA PO SCH ×3 (04:50→21:01)
[2016-04-03] MEDS: Bethanechol 50 MG TAB PO SCH ×3 (08:28→17:08)
--- NOTE | 2016-04-03 11:14 | CP.PCM.PN ---
Subjective - Date & Time of Evaluation Date of Evaluation: 04/03/16 Time of Evaluation: 22:22 - Subjective Subjective: Sitting in chair Objective - Vital Signs/Intake and Output Vital Signs (last 24 hours): Temp Pulse Resp BP Pulse Ox 97.5 F L 75 20 128/67 100 04/03/16 08:53 04/03/16 08:53 04/03/16 08:53 04/03/16 08:53 04/03/16 08:53 - Medications Medications: Current Medications Acetaminophen (Tylenol 325mg Tab) 650 mg PO Q6 PRN PRN Reason: Pain, Mild (1-3) Last Admin: 03/31/16 16:41 Dose: 650 mg Bethanechol Chloride (Urecholine) 50 mg PO TID [facility] Last Admin: 04/03/16 08:28 Dose: 50 mg Carbidopa/Levodopa (Rytary Er 48.75 Mg-195 Mg Cap) 1 cap PO TID@0500,1300,2100 [facility] Last Admin: 04/03/16 04:50 Dose: 1 cap Docusate Sodium (Colace) 100 mg PO BID [facility] Last Admin: 04/03/16 08:27 Dose: 100 mg Fluocinonide (Lidex 0.05% Oint) 1 applic TOP BID [facility] Last Admin: 04/03/16 08:27 Dose: 1 applic Magnesium Hydroxide (Milk Of Magnesia) 30 ml PO DAILY PRN PRN Reason: Constipation Last Admin: 04/01/16 09:59 Dose: 30 ml Midodrine (Proamatine) 10 mg PO TID [facility] Last Admin: 04/03/16 08:27 Dose: 10 mg Quetiapine Fumarate (Seroquel) 50 mg PO HS PRN PRN Reason: Agitation Last Admin: 03/31/16 20:54 Dose: 50 mg - Labs Labs: 02/19/16 05:10 02/19/16 05:10 - Respiratory Exam Respiratory Exam: NORMAL BREATHING PATTERN - Cardiovascular Exam Cardiovascular Exam: REGULAR RHYTHM - GI/Abdominal Exam GI & Abdominal Exam: Normal Bowel Sounds Assessment and Plan - Assessment and Plan (Free Text) Assessment: MSA Parkinsons DX Lilia Vieira PT Rytary 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 ID consult appreciated
[2016-04-04] MEDS: CARBIDOPA PO SCH ×3 (04:13→20:34)
[2016-04-04] MEDS: LEVODOPA PO SCH ×3 (04:13→20:34)
[2016-04-04] MEDS: Bethanechol 50 MG TAB PO SCH ×3 (08:26→18:36)
--- NOTE | 2016-04-04 21:17 | CP.PCM.PN ---
Subjective - Date & Time of Evaluation Date of Evaluation: 04/04/16 Time of Evaluation: 22:22 - Subjective Subjective: Sleeping Objective - Vital Signs/Intake and Output Vital Signs (last 24 hours): Temp Pulse Resp BP Pulse Ox 97.2 F L 67 20 125/57 L 98 04/04/16 17:05 04/04/16 17:05 04/04/16 17:05 04/04/16 17:05 04/04/16 17:05 - Medications Medications: Current Medications Acetaminophen (Tylenol 325mg Tab) 650 mg PO Q6 PRN PRN Reason: Pain, Mild (1-3) Last Admin: 03/31/16 16:41 Dose: 650 mg Bethanechol Chloride (Urecholine) 50 mg PO TID [facility] Last Admin: 04/04/16 18:36 Dose: 50 mg Carbidopa/Levodopa (Rytary Er 48.75 Mg-195 Mg Cap) 1 cap PO TID@0500,1300,2100 [facility] Last Admin: 04/04/16 20:34 Dose: 1 cap Docusate Sodium (Colace) 100 mg PO BID [facility] Last Admin: 04/04/16 18:36 Dose: 100 mg Fluocinonide (Lidex 0.05% Oint) 1 applic TOP BID [facility] Last Admin: 04/04/16 18:36 Dose: 1 applic Magnesium Hydroxide (Milk Of Magnesia) 30 ml PO DAILY PRN PRN Reason: Constipation Last Admin: 04/01/16 09:59 Dose: 30 ml Midodrine (Proamatine) 10 mg PO TID [facility] Last Admin: 04/04/16 18:36 Dose: 10 mg Quetiapine Fumarate (Seroquel) 50 mg PO HS PRN PRN Reason: Agitation Last Admin: 03/31/16 20:54 Dose: 50 mg - Labs Labs: 02/19/16 05:10 02/19/16 05:10 - Respiratory Exam Respiratory Exam: NORMAL BREATHING PATTERN - Cardiovascular Exam Cardiovascular Exam: REGULAR RHYTHM - GI/Abdominal Exam GI & Abdominal Exam: Normal Bowel Sounds Assessment and Plan - Assessment and Plan (Free Text) Assessment: MSA Parkinsons DX Lilia Vieira PT Rytary 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 ID consult appreciated
[2016-04-05] MEDS: LEVODOPA PO SCH ×3 (05:52→21:08)
[2016-04-05] MEDS: CARBIDOPA PO SCH ×3 (05:52→21:08)
[2016-04-05] MEDS: Bethanechol 50 MG TAB PO SCH ×3 (09:06→18:11)
--- NOTE | 2016-04-05 19:23 | CP.PCM.PN ---
Subjective - Date & Time of Evaluation Date of Evaluation: 04/05/16 Time of Evaluation: 22:22 - Subjective Subjective: Resting in bed Objective - Vital Signs/Intake and Output Vital Signs (last 24 hours): Temp Pulse Resp BP Pulse Ox 97.9 F 75 20 121/82 99 04/05/16 17:00 04/05/16 17:00 04/05/16 17:00 04/05/16 17:00 04/05/16 17:00 - Medications Medications: Current Medications Acetaminophen (Tylenol 325mg Tab) 650 mg PO Q6 PRN PRN Reason: Pain, Mild (1-3) Last Admin: 04/05/16 01:33 Dose: 650 mg Bethanechol Chloride (Urecholine) 50 mg PO TID [facility] Last Admin: 04/05/16 18:11 Dose: 50 mg Carbidopa/Levodopa (Rytary Er 48.75 Mg-195 Mg Cap) 1 cap PO TID@0500,1300,2100 [facility] Last Admin: 04/05/16 13:52 Dose: 1 cap Docusate Sodium (Colace) 100 mg PO BID [facility] Last Admin: 04/05/16 18:11 Dose: 100 mg Fluocinonide (Lidex 0.05% Oint) 1 applic TOP BID [facility] Last Admin: 04/05/16 18:11 Dose: 1 applic Magnesium Hydroxide (Milk Of Magnesia) 30 ml PO DAILY PRN PRN Reason: Constipation Last Admin: 04/01/16 09:59 Dose: 30 ml Midodrine (Proamatine) 10 mg PO TID [facility] Last Admin: 04/05/16 18:11 Dose: 10 mg Quetiapine Fumarate (Seroquel) 50 mg PO HS PRN PRN Reason: Agitation Last Admin: 04/05/16 01:37 Dose: 50 mg - Labs Labs: 02/19/16 05:10 02/19/16 05:10 - Respiratory Exam Respiratory Exam: NORMAL BREATHING PATTERN - Cardiovascular Exam Cardiovascular Exam: REGULAR RHYTHM - GI/Abdominal Exam GI & Abdominal Exam: Normal Bowel Sounds Assessment and Plan - Assessment and Plan (Free Text) Assessment: Assessment: MSA Parkinsons DX Lilia Vieira PT Rytary 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 ID consult appreciated
[2016-04-06] MEDS: LEVODOPA PO SCH ×3 (06:18→21:44)
[2016-04-06] MEDS: CARBIDOPA PO SCH ×3 (06:18→21:44)
[2016-04-06] MEDS: Bethanechol 50 MG TAB PO SCH ×3 (09:20→17:14)
--- NOTE | 2016-04-06 20:47 | CP.PCM.PN ---
Subjective - Date & Time of Evaluation Date of Evaluation: 04/06/16 Time of Evaluation: 22:22 - Subjective Subjective: Shoulder pain Objective - Vital Signs/Intake and Output Vital Signs (last 24 hours): Temp Pulse Resp BP Pulse Ox 97.7 F 90 19 167/65 H 100 04/06/16 16:00 04/06/16 16:00 04/06/16 16:00 04/06/16 16:00 04/06/16 16:00 - Medications Medications: Current Medications Acetaminophen (Tylenol 325mg Tab) 650 mg PO Q6 PRN PRN Reason: Pain, Mild (1-3) Last Admin: 04/06/16 10:35 Dose: 650 mg Bethanechol Chloride (Urecholine) 50 mg PO TID [facility] Last Admin: 04/06/16 17:14 Dose: 50 mg Carbidopa/Levodopa (Rytary Er 48.75 Mg-195 Mg Cap) 1 cap PO TID@0500,1300,2100 [facility] Last Admin: 04/06/16 13:52 Dose: 1 cap Docusate Sodium (Colace) 100 mg PO BID [facility] Last Admin: 04/06/16 17:13 Dose: 100 mg Fluocinonide (Lidex 0.05% Oint) 1 applic TOP BID [facility] Last Admin: 04/06/16 17:13 Dose: 1 applic Magnesium Hydroxide (Milk Of Magnesia) 30 ml PO DAILY PRN PRN Reason: Constipation Last Admin: 04/01/16 09:59 Dose: 30 ml Midodrine (Proamatine) 10 mg PO TID [facility] Last Admin: 04/06/16 17:13 Dose: 10 mg Quetiapine Fumarate (Seroquel) 50 mg PO HS PRN PRN Reason: Agitation Last Admin: 04/05/16 01:37 Dose: 50 mg - Labs Labs: 02/19/16 05:10 02/19/16 05:10 - Respiratory Exam Respiratory Exam: NORMAL BREATHING PATTERN - Cardiovascular Exam Cardiovascular Exam: REGULAR RHYTHM - GI/Abdominal Exam GI & Abdominal Exam: Normal Bowel Sounds Assessment and Plan - Assessment and Plan (Free Text) Assessment: R shoulder pain xrays subluxation Ultram PRN MSA Parkinsons DX 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 ID consult appreciated
[2016-04-07] MEDS: LEVODOPA PO SCH ×3 (05:39→20:08)
[2016-04-07] MEDS: CARBIDOPA PO SCH ×3 (05:39→20:08)
[2016-04-07] MEDS: Bethanechol 50 MG TAB PO SCH ×3 (08:55→16:49)
--- NOTE | 2016-04-07 16:09 | CP.PCM.PN ---
Subjective - Date & Time of Evaluation Date of Evaluation: 04/07/16 Time of Evaluation: 22:22 - Subjective Subjective: Sitting in bed Objective - Vital Signs/Intake and Output Vital Signs (last 24 hours): Temp Pulse Resp BP Pulse Ox 97 F L 79 18 124/61 95 04/07/16 09:00 04/07/16 09:00 04/07/16 09:00 04/07/16 09:00 04/07/16 09:00 - Medications Medications: Current Medications Acetaminophen (Tylenol 325mg Tab) 650 mg PO Q6 PRN PRN Reason: Pain, Mild (1-3) Last Admin: 04/06/16 10:35 Dose: 650 mg Bethanechol Chloride (Urecholine) 50 mg PO TID [facility] Last Admin: 04/07/16 12:50 Dose: 50 mg Carbidopa/Levodopa (Rytary Er 48.75 Mg-195 Mg Cap) 1 cap PO TID@0500,1300,2100 [facility] Last Admin: 04/07/16 12:50 Dose: 1 cap Docusate Sodium (Colace) 100 mg PO BID [facility] Last Admin: 04/07/16 08:55 Dose: 100 mg Fluocinonide (Lidex 0.05% Oint) 1 applic TOP BID [facility] Last Admin: 04/07/16 08:55 Dose: 1 applic Magnesium Hydroxide (Milk Of Magnesia) 30 ml PO DAILY PRN PRN Reason: Constipation Last Admin: 04/01/16 09:59 Dose: 30 ml Midodrine (Proamatine) 10 mg PO TID [facility] Last Admin: 04/07/16 12:50 Dose: 10 mg Quetiapine Fumarate (Seroquel) 50 mg PO HS PRN PRN Reason: Agitation Last Admin: 04/06/16 21:45 Dose: 50 mg Tramadol HCl (Ultram) 50 mg PO TID PRN PRN Reason: Pain, moderate (4-7) Last Admin: 04/06/16 21:43 Dose: 50 mg - Labs Labs: 02/19/16 05:10 02/19/16 05:10 - Respiratory Exam Respiratory Exam: NORMAL BREATHING PATTERN - Cardiovascular Exam Cardiovascular Exam: REGULAR RHYTHM - GI/Abdominal Exam GI & Abdominal Exam: Normal Bowel Sounds Assessment and Plan - Assessment and Plan (Free Text) Plan: R shoulder pain xrays subluxation Ultram PRN MSA Parkinsons DX 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 ID consult appreciated
[2016-04-08] MEDS: LEVODOPA PO SCH ×3 (04:24→21:39)
[2016-04-08] MEDS: CARBIDOPA PO SCH ×3 (04:24→21:39)
[2016-04-08] MEDS: Bethanechol 50 MG TAB PO SCH ×3 (08:10→16:14)
--- NOTE | 2016-04-08 18:18 | CP.PCM.PN ---
Subjective - Date & Time of Evaluation Date of Evaluation: 04/08/16 Time of Evaluation: 22:22 - Subjective Subjective: Above noted Objective - Vital Signs/Intake and Output Vital Signs (last 24 hours): Temp Pulse Resp BP Pulse Ox 96.6 F L 74 18 122/78 99 04/08/16 17:04 04/08/16 17:04 04/08/16 17:04 04/08/16 17:04 04/08/16 17:04 - Medications Medications: Current Medications Acetaminophen (Tylenol 325mg Tab) 650 mg PO Q6 PRN PRN Reason: Pain, Mild (1-3) Last Admin: 04/06/16 10:35 Dose: 650 mg Bethanechol Chloride (Urecholine) 50 mg PO TID [facility] Last Admin: 04/08/16 16:14 Dose: 50 mg Carbidopa/Levodopa (Rytary Er 48.75 Mg-195 Mg Cap) 1 cap PO TID@0500,1300,2100 [facility] Last Admin: 04/08/16 13:08 Dose: 1 cap Docusate Sodium (Colace) 100 mg PO BID [facility] Last Admin: 04/08/16 16:14 Dose: 100 mg Fluocinonide (Lidex 0.05% Oint) 1 applic TOP BID [facility] Last Admin: 04/08/16 16:14 Dose: 1 applic Magnesium Hydroxide (Milk Of Magnesia) 30 ml PO DAILY PRN PRN Reason: Constipation Last Admin: 04/01/16 09:59 Dose: 30 ml Midodrine (Proamatine) 10 mg PO TID [facility] Last Admin: 04/08/16 16:13 Dose: 10 mg Quetiapine Fumarate (Seroquel) 50 mg PO HS PRN PRN Reason: Agitation Last Admin: 04/08/16 04:24 Dose: 50 mg Tramadol HCl (Ultram) 50 mg PO TID PRN PRN Reason: Pain, moderate (4-7) Last Admin: 04/07/16 20:07 Dose: 50 mg - Labs Labs: 02/19/16 05:10 02/19/16 05:10 - Respiratory Exam Respiratory Exam: NORMAL BREATHING PATTERN - Cardiovascular Exam Cardiovascular Exam: REGULAR RHYTHM - GI/Abdominal Exam GI & Abdominal Exam: Normal Bowel Sounds Assessment and Plan - Assessment and Plan (Free Text) Assessment: MSA Parkinsons DX Lilia Vieira PT Rytary 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 ID consult appreciated
[2016-04-09] MEDS: CARBIDOPA PO SCH ×3 (05:43→20:58)
[2016-04-09] MEDS: LEVODOPA PO SCH ×3 (05:43→20:58)
[2016-04-09] MEDS: Bethanechol 50 MG TAB PO SCH ×3 (08:24→16:08)
[2016-04-09] MEDS: Magnesium Hydroxide Susp 30 ml UD PO PRN (08:25)
--- NOTE | 2016-04-09 20:52 | CP.PCM.PN ---
Subjective - Date & Time of Evaluation Date of Evaluation: 04/09/16 Time of Evaluation: 22:22 - Subjective Subjective: DOing well Objective - Vital Signs/Intake and Output Vital Signs (last 24 hours): Temp Pulse Resp BP Pulse Ox 98.4 F 69 20 114/63 100 04/09/16 16:30 04/09/16 16:30 04/09/16 16:30 04/09/16 16:30 04/09/16 16:30 - Medications Medications: Current Medications Acetaminophen (Tylenol 325mg Tab) 650 mg PO Q6 PRN PRN Reason: Pain, Mild (1-3) Last Admin: 04/06/16 10:35 Dose: 650 mg Bethanechol Chloride (Urecholine) 50 mg PO TID [facility] Last Admin: 04/09/16 16:08 Dose: 50 mg Carbidopa/Levodopa (Rytary Er 48.75 Mg-195 Mg Cap) 1 cap PO TID@0500,1300,2100 [facility] Last Admin: 04/09/16 12:47 Dose: 1 cap Docusate Sodium (Colace) 100 mg PO BID [facility] Last Admin: 04/09/16 16:08 Dose: 100 mg Fluocinonide (Lidex 0.05% Oint) 1 applic TOP BID [facility] Last Admin: 04/09/16 16:07 Dose: 1 applic Magnesium Hydroxide (Milk Of Magnesia) 30 ml PO DAILY PRN PRN Reason: Constipation Last Admin: 04/09/16 08:25 Dose: 30 ml Midodrine (Proamatine) 10 mg PO TID [facility] Last Admin: 04/09/16 16:08 Dose: 10 mg Quetiapine Fumarate (Seroquel) 50 mg PO HS PRN PRN Reason: Agitation Last Admin: 04/08/16 04:24 Dose: 50 mg Tramadol HCl (Ultram) 50 mg PO TID PRN PRN Reason: Pain, moderate (4-7) Last Admin: 04/07/16 20:07 Dose: 50 mg - Labs Labs: 02/19/16 05:10 02/19/16 05:10 - Respiratory Exam Respiratory Exam: NORMAL BREATHING PATTERN - Cardiovascular Exam Cardiovascular Exam: REGULAR RHYTHM - GI/Abdominal Exam GI & Abdominal Exam: Normal Bowel Sounds Assessment and Plan - Assessment and Plan (Free Text) Assessment: MSA Parkinsons DX Lilia Vieira PT Rytary 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 ID consult appreciated
[2016-04-10] MEDS: LEVODOPA PO SCH ×3 (04:34→21:24)
[2016-04-10] MEDS: CARBIDOPA PO SCH ×3 (04:34→21:24)
[2016-04-10] MEDS: Bethanechol 50 MG TAB PO SCH ×3 (09:53→16:04)
--- NOTE | 2016-04-10 18:56 | CP.PCM.PN ---
Subjective - Date & Time of Evaluation Date of Evaluation: 04/10/16 Time of Evaluation: 22:22 - Subjective Subjective: No change in status Objective - Vital Signs/Intake and Output Vital Signs (last 24 hours): Temp Pulse Resp BP Pulse Ox 98.1 F 92 H 20 130/96 H 99 04/10/16 16:58 04/10/16 16:58 04/10/16 16:58 04/10/16 16:58 04/10/16 16:58 - Medications Medications: Current Medications Acetaminophen (Tylenol 325mg Tab) 650 mg PO Q6 PRN PRN Reason: Pain, Mild (1-3) Last Admin: 04/06/16 10:35 Dose: 650 mg Bethanechol Chloride (Urecholine) 50 mg PO TID [facility] Last Admin: 04/10/16 16:04 Dose: 50 mg Carbidopa/Levodopa (Rytary Er 48.75 Mg-195 Mg Cap) 1 cap PO TID@0500,1300,2100 [facility] Last Admin: 04/10/16 12:37 Dose: 1 cap Docusate Sodium (Colace) 100 mg PO BID [facility] Last Admin: 04/10/16 16:03 Dose: 100 mg Fluocinonide (Lidex 0.05% Oint) 1 applic TOP BID [facility] Last Admin: 04/10/16 16:03 Dose: 1 applic Magnesium Hydroxide (Milk Of Magnesia) 30 ml PO DAILY PRN PRN Reason: Constipation Last Admin: 04/09/16 08:25 Dose: 30 ml Midodrine (Proamatine) 10 mg PO TID [facility] Last Admin: 04/10/16 16:03 Dose: 10 mg Quetiapine Fumarate (Seroquel) 50 mg PO HS PRN PRN Reason: Agitation Last Admin: 04/08/16 04:24 Dose: 50 mg Tramadol HCl (Ultram) 50 mg PO TID PRN PRN Reason: Pain, moderate (4-7) Last Admin: 04/07/16 20:07 Dose: 50 mg - Labs Labs: 02/19/16 05:10 02/19/16 05:10 - Respiratory Exam Respiratory Exam: NORMAL BREATHING PATTERN - Cardiovascular Exam Cardiovascular Exam: REGULAR RHYTHM - GI/Abdominal Exam GI & Abdominal Exam: Normal Bowel Sounds Assessment and Plan - Assessment and Plan (Free Text) Assessment: MSA Parkinsons DX Paulyy Drager PT Rytary 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 ID consult appreciated
[2016-04-11] MEDS: CARBIDOPA PO SCH ×3 (04:30→21:00)
[2016-04-11] MEDS: LEVODOPA PO SCH ×3 (04:30→21:00)
[2016-04-11] MEDS: Bethanechol 50 MG TAB PO SCH ×3 (09:07→16:19)
--- NOTE | 2016-04-11 20:38 | CP.PCM.PN ---
Subjective - Date & Time of Evaluation Date of Evaluation: 04/11/16 Time of Evaluation: 22:22 - Subjective Subjective: Resting Objective - Vital Signs/Intake and Output Vital Signs (last 24 hours): Temp Pulse Resp BP Pulse Ox 98.1 F 75 20 155/89 H 99 04/11/16 17:00 04/11/16 17:00 04/11/16 17:00 04/11/16 17:00 04/11/16 17:00 - Medications Medications: Current Medications Acetaminophen (Tylenol 325mg Tab) 650 mg PO Q6 PRN PRN Reason: Pain, Mild (1-3) Last Admin: 04/06/16 10:35 Dose: 650 mg Bethanechol Chloride (Urecholine) 50 mg PO TID [facility] Last Admin: 04/11/16 16:19 Dose: 50 mg Carbidopa/Levodopa (Rytary Er 48.75 Mg-195 Mg Cap) 1 cap PO TID@0500,1300,2100 [facility] Last Admin: 04/11/16 12:51 Dose: 1 cap Docusate Sodium (Colace) 100 mg PO BID [facility] Last Admin: 04/11/16 16:21 Dose: 100 mg Fluocinonide (Lidex 0.05% Oint) 1 applic TOP BID [facility] Last Admin: 04/11/16 16:19 Dose: 1 applic Magnesium Hydroxide (Milk Of Magnesia) 30 ml PO DAILY PRN PRN Reason: Constipation Last Admin: 04/09/16 08:25 Dose: 30 ml Midodrine (Proamatine) 10 mg PO TID [facility] Last Admin: 04/11/16 16:19 Dose: 10 mg Quetiapine Fumarate (Seroquel) 50 mg PO HS PRN PRN Reason: Agitation Last Admin: 04/08/16 04:24 Dose: 50 mg Tramadol HCl (Ultram) 50 mg PO TID PRN PRN Reason: Pain, moderate (4-7) - Labs Labs: 02/19/16 05:10 02/19/16 05:10 - Respiratory Exam Respiratory Exam: NORMAL BREATHING PATTERN - Cardiovascular Exam Cardiovascular Exam: REGULAR RHYTHM - GI/Abdominal Exam GI & Abdominal Exam: Normal Bowel Sounds Assessment and Plan - Assessment and Plan (Free Text) Assessment: MSA Parkinsons DX Lilia Vieira PT Rytary 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 ID consult appreciated
[2016-04-12] MEDS: LEVODOPA PO SCH ×3 (05:09→21:14)
[2016-04-12] MEDS: CARBIDOPA PO SCH ×3 (05:09→21:14)
[2016-04-12] MEDS: Bethanechol 50 MG TAB PO SCH ×3 (09:02→18:35)
--- NOTE | 2016-04-12 18:51 | CP.PCM.PN ---
Subjective - Date & Time of Evaluation Date of Evaluation: 04/12/16 Time of Evaluation: 22:22 - Subjective Subjective: No change Objective - Vital Signs/Intake and Output Vital Signs (last 24 hours): Temp Pulse Resp BP Pulse Ox 960 F H 74 20 100/58 L 96 04/12/16 09:33 04/12/16 09:33 04/12/16 09:33 04/12/16 09:33 04/12/16 09:33 - Medications Medications: Current Medications Acetaminophen (Tylenol 325mg Tab) 650 mg PO Q6 PRN PRN Reason: Pain, Mild (1-3) Last Admin: 04/06/16 10:35 Dose: 650 mg Bethanechol Chloride (Urecholine) 50 mg PO TID [facility] Last Admin: 04/12/16 18:35 Dose: 50 mg Carbidopa/Levodopa (Rytary Er 48.75 Mg-195 Mg Cap) 1 cap PO TID@0500,1300,2100 [facility] Last Admin: 04/12/16 13:41 Dose: 1 cap Docusate Sodium (Colace) 100 mg PO BID [facility] Last Admin: 04/12/16 18:36 Dose: 100 mg Fluocinonide (Lidex 0.05% Oint) 1 applic TOP BID [facility] Last Admin: 04/12/16 18:35 Dose: 1 applic Magnesium Hydroxide (Milk Of Magnesia) 30 ml PO DAILY PRN PRN Reason: Constipation Last Admin: 04/09/16 08:25 Dose: 30 ml Midodrine (Proamatine) 10 mg PO TID [facility] Last Admin: 04/12/16 18:35 Dose: 10 mg Quetiapine Fumarate (Seroquel) 50 mg PO HS PRN PRN Reason: Agitation Last Admin: 04/12/16 02:22 Dose: 50 mg Tramadol HCl (Ultram) 50 mg PO TID PRN PRN Reason: Pain, moderate (4-7) Last Admin: 04/12/16 11:39 Dose: 50 mg - Labs Labs: 02/19/16 05:10 02/19/16 05:10 - Respiratory Exam Respiratory Exam: NORMAL BREATHING PATTERN - Cardiovascular Exam Cardiovascular Exam: REGULAR RHYTHM - GI/Abdominal Exam GI & Abdominal Exam: Normal Bowel Sounds Assessment and Plan - Assessment and Plan (Free Text) Assessment: MSA Parkinsons DX Lilia Vieira PT Rytary 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 ID consult appreciated
[2016-04-13] MEDS: LEVODOPA PO SCH ×3 (05:32→21:09)
[2016-04-13] MEDS: CARBIDOPA PO SCH ×3 (05:32→21:09)
[2016-04-13] MEDS: Bethanechol 50 MG TAB PO SCH ×3 (08:52→16:57)
--- NOTE | 2016-04-13 19:24 | CP.PCM.PN ---
Subjective - Date & Time of Evaluation Date of Evaluation: 04/13/16 - Subjective Subjective: resting in bed Objective - Vital Signs/Intake and Output Vital Signs (last 24 hours): Temp Pulse Resp BP Pulse Ox 97.2 F L 69 18 121/65 98 04/13/16 16:39 04/13/16 16:39 04/13/16 16:39 04/13/16 16:39 04/13/16 16:39 - Medications Medications: Current Medications Acetaminophen (Tylenol 325mg Tab) 650 mg PO Q6 PRN PRN Reason: Pain, Mild (1-3) Last Admin: 04/13/16 12:04 Dose: 650 mg Bethanechol Chloride (Urecholine) 50 mg PO TID [facility] Last Admin: 04/13/16 16:57 Dose: 50 mg Carbidopa/Levodopa (Rytary Er 48.75 Mg-195 Mg Cap) 1 cap PO TID@0500,1300,2100 [facility] Last Admin: 04/13/16 12:06 Dose: 1 cap Docusate Sodium (Colace) 100 mg PO BID [facility] Last Admin: 04/13/16 16:56 Dose: 100 mg Fluocinonide (Lidex 0.05% Oint) 1 applic TOP BID [facility] Last Admin: 04/13/16 16:56 Dose: 1 applic Magnesium Hydroxide (Milk Of Magnesia) 30 ml PO DAILY PRN PRN Reason: Constipation Last Admin: 04/09/16 08:25 Dose: 30 ml Midodrine (Proamatine) 10 mg PO TID [facility] Last Admin: 04/13/16 16:56 Dose: 10 mg Quetiapine Fumarate (Seroquel) 50 mg PO HS PRN PRN Reason: Agitation Last Admin: 04/12/16 02:22 Dose: 50 mg Tramadol HCl (Ultram) 50 mg PO TID PRN PRN Reason: Pain, moderate (4-7) Last Admin: 04/12/16 11:39 Dose: 50 mg - Labs Labs: 02/19/16 05:10 02/19/16 05:10 - Respiratory Exam Respiratory Exam: NORMAL BREATHING PATTERN - Cardiovascular Exam Cardiovascular Exam: REGULAR RHYTHM - GI/Abdominal Exam GI & Abdominal Exam: Normal Bowel Sounds Assessment and Plan - Assessment and Plan (Free Text) Assessment: MSA Parkinsons DX Lilia Vieira PT Rytary 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 ID consult appreciated
[2016-04-14] MEDS: CARBIDOPA PO SCH ×3 (04:57→20:44)
[2016-04-14] MEDS: LEVODOPA PO SCH ×3 (04:57→20:44)
[2016-04-14] MEDS: Bethanechol 50 MG TAB PO SCH ×3 (08:29→16:14)
--- NOTE | 2016-04-14 11:01 | CP.PCM.PN ---
Subjective - Date & Time of Evaluation Date of Evaluation: 04/14/16 Time of Evaluation: 22:22 - Subjective Subjective: Doing well Objective - Vital Signs/Intake and Output Vital Signs (last 24 hours): Temp Pulse Resp BP Pulse Ox 97.6 F 98 H 20 133/72 97 04/14/16 08:26 04/14/16 08:26 04/14/16 08:26 04/14/16 08:26 04/14/16 08:26 - Medications Medications: Current Medications Acetaminophen (Tylenol 325mg Tab) 650 mg PO Q6 PRN PRN Reason: Pain, Mild (1-3) Last Admin: 04/13/16 12:04 Dose: 650 mg Bethanechol Chloride (Urecholine) 50 mg PO TID [facility] Last Admin: 04/14/16 08:29 Dose: 50 mg Carbidopa/Levodopa (Rytary Er 48.75 Mg-195 Mg Cap) 1 cap PO TID@0500,1300,2100 [facility] Last Admin: 04/14/16 04:57 Dose: 1 cap Docusate Sodium (Colace) 100 mg PO BID [facility] Last Admin: 04/14/16 08:29 Dose: 100 mg Fluocinonide (Lidex 0.05% Oint) 1 applic TOP BID [facility] Last Admin: 04/14/16 08:28 Dose: 1 applic Magnesium Hydroxide (Milk Of Magnesia) 30 ml PO DAILY PRN PRN Reason: Constipation Last Admin: 04/09/16 08:25 Dose: 30 ml Midodrine (Proamatine) 10 mg PO TID [facility] Last Admin: 04/14/16 08:29 Dose: 10 mg Quetiapine Fumarate (Seroquel) 50 mg PO HS PRN PRN Reason: Agitation Last Admin: 04/13/16 21:09 Dose: 50 mg Tramadol HCl (Ultram) 50 mg PO TID PRN PRN Reason: Pain, moderate (4-7) Last Admin: 04/12/16 11:39 Dose: 50 mg - Labs Labs: 02/19/16 05:10 02/19/16 05:10 - Respiratory Exam Respiratory Exam: NORMAL BREATHING PATTERN - Cardiovascular Exam Cardiovascular Exam: REGULAR RHYTHM - GI/Abdominal Exam GI & Abdominal Exam: Normal Bowel Sounds Assessment and Plan - Assessment and Plan (Free Text) Assessment: MSA Parkinsons DX Lilia Vieira PT Rytary 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 ID consult appreciated
[2016-04-15] MEDS: LEVODOPA PO SCH ×3 (05:00→20:29)
[2016-04-15] MEDS: CARBIDOPA PO SCH ×3 (05:00→20:29)
[2016-04-15] MEDS: Bethanechol 50 MG TAB PO SCH ×3 (08:44→16:50)
--- NOTE | 2016-04-15 14:54 | CP.PCM.CON ---
History of Present Illness - History of Present Illness History of Present Illness: psychiatry consult ordered by: dr. clarke reason: capacity? guardianship? cc: i am getting worse here hpi: 85 yo man with parkinsons disease. pt has a poa who is his niece. he states he has a power of divorce attorney because "people were taking my money" he states he does not want to change his poa. however he states "you need to talk to her about it." he states since he has been here he has stopped being able to walk and he states that PT doesn't come to see him anymore. he states he is at "[facility]" but alternately states this is a rehab. he is asked about going to a subacute rehab/detention and states "how are those different than here....if they are better i will go." pt when asked if he can care for himself states "hell no!" pt does state he has parkinsons disease and it limits his movement. he is not reporting any symptoms of depression, desiree or psychosis. mini mental status: he scores a 20/28 points (did not ask to copy design or write sentence because of his parkinsons) he was not oriented to time, but he was to place. he could not remember 3 objects after 5 minutes) pt does not seem to be aware of circumstances necessitating this exam. he does indicate he cannot care for self and he does state he wants to leave the hospital and go someplace that will better address his needs. he does indicate he feels he is getting worse in this setting. he does indicate he wants physical therapy and he needs people to help him get dressed and cook and control his finances. past psych: dx with depression 8 months ago. not taking any standing psych meds. 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 states he is living here in the hospital. medical history: parkinsons mse: alert, oriented to self, circumstances of being in the hospital. not to time. his mood is irritated, his affect is congruent. he has intention tremors, unable to stand up from seat. he makes good eye contact. speech is appropriate rate, tone and volume. he is with linear thoughts. denies si/hi. denies a/v hallucinations. fair i/j. memory- some impairments in short term memory. assessment: adjustment disorder with anxiety pt appears to have capacity in regards with question of needing a guardian. he agrees he cannot physically care for self or manage his finances. he is seeking transfer to a more appropriate facility and feels his health issues are not being best served here on an inpatient hospital unit. Past Patient History - Tetanus Immunizations Tetanus Immunization: Unknown - Past Medical History & Family History Past Medical History?: Yes - Past Social History Smoking Status: Never Smoked - CARDIAC Hx Cardiac Disorders: No Hx Congestive Heart Failure: No Hx Hypercholesterolemia: No Hx Hypertension: No - PULMONARY Hx Chronic Obstructive Pulmonary Disease (COPD): No - NEUROLOGICAL HX Cerebrovascular Accident: No - HEENT Hx HEENT Problems: Yes Hx Cataracts: No Hx Deafness: No Hx Difficulty Chewing: No Hx Epistaxis: No Hx Glaucoma: Yes Hx Macular Degeneration: No - RENAL Hx Renal Failure: No - ENDOCRINE/METABOLIC Hx Diabetes Mellitus Type 1: No Hx Diabetes Mellitus Type 2: No Hx Hypothyroidism: No - HEMATOLOGICAL/ONCOLOGICAL Hx Anemia: No Hx Human Immunodeficiency Virus (HIV): No Hx Sickle Cell Disease: No - INTEGUMENTARY Hx Dermatological Problems: No Hx Basil Cell: No Hx Silva: No Hx Cellulitis: Yes (right leg) Hx Eczema: No Hx Melanoma: No Hx Psoriasis: No Hx Squamous Cell: No - MUSCULOSKELETAL/RHEUMATOLOGICAL Hx Arthritis: No Hx Rheumatoid Arthritis: No - GASTROINTESTINAL Hx Crohn's Disease: No Hx Diverticulitis: No Hx Gall Bladder Disease: No Hx Gastritis: No Hx Pancreatitis: No - GENITOURINARY/GYNECOLOGICAL Hx Sexually Transmitted Disorders: No - PSYCHIATRIC Hx Anxiety: Yes Hx Depression: Yes - SURGICAL HISTORY Hx Appendectomy: Yes Hx Carotid Endarterectomy: No Hx Cholecystectomy: No Hx Coronary Artery Bypass Graft: No Hx Coronary Stent: No Hx Tonsillectomy: Yes - ANESTHESIA Hx Anesthesia: Yes Hx Anesthesia Reactions: No Hx Malignant Hyperthermia: No Meds Allergies/Adverse Reactions: Allergies Allergy/AdvReac Type Severity Reaction Status Date / Time Penicillins Allergy Hives Verified 08/01/15 06:34 - Medications Medications: Current Medications Acetaminophen (Tylenol 325mg Tab) 650 mg PO Q6 PRN PRN Reason: Pain, Mild (1-3) Last Admin: 04/15/16 12:28 Dose: 650 mg Bethanechol Chloride (Urecholine) 50 mg PO TID [facility] Last Admin: 04/15/16 12:27 Dose: 50 mg Carbidopa/Levodopa (Rytary Er 48.75 Mg-195 Mg Cap) 1 cap PO TID@0500,1300,2100 [facility] Last Admin: 04/15/16 12:26 Dose: 1 cap Docusate Sodium (Colace) 100 mg PO BID [facility] Last Admin: 04/15/16 08:44 Dose: 100 mg Fluocinonide (Lidex 0.05% Oint) 1 applic TOP BID [facility] Last Admin: 04/15/16 08:45 Dose: 1 applic Magnesium Hydroxide (Milk Of Magnesia) 30 ml PO DAILY PRN PRN Reason: Constipation Last Admin: 04/09/16 08:25 Dose: 30 ml Midodrine (Proamatine) 10 mg PO TID [facility] Last Admin: 04/15/16 08:45 Dose: 10 mg Quetiapine Fumarate (Seroquel) 50 mg PO HS PRN PRN Reason: Agitation Last Admin: 04/14/16 20:44 Dose: 50 mg Tramadol HCl (Ultram) 50 mg PO TID PRN PRN Reason: Pain, moderate (4-7) Last Admin: 04/12/16 11:39 Dose: 50 mg Results - Vital Signs Recent Vital Signs: Last Vital Signs Temp 97 F L 04/15/16 09:00 Pulse 57 L 04/15/16 08:35 Resp 18 04/15/16 08:35 BP 111/59 L 04/15/16 08:35 Pulse Ox 98 04/15/16 08:35 - Labs Result Diagrams: 02/19/16 05:10 02/19/16 05:10
[2016-04-16] MEDS: LEVODOPA PO SCH ×3 (04:11→20:46)
[2016-04-16] MEDS: CARBIDOPA PO SCH ×3 (04:11→20:46)
[2016-04-16] MEDS: Bethanechol 50 MG TAB PO SCH ×3 (08:45→17:00)
[2016-04-17] MEDS: LEVODOPA PO SCH ×3 (04:06→21:57)
[2016-04-17] MEDS: CARBIDOPA PO SCH ×3 (04:06→21:57)
[2016-04-17] MEDS: Bethanechol 50 MG TAB PO SCH ×3 (09:42→17:52)
--- NOTE | 2016-04-17 20:27 | CP.PCM.PN ---
Subjective - Date & Time of Evaluation Date of Evaluation: 04/17/16 Time of Evaluation: 22:22 - Subjective Subjective: Above noted Objective - Vital Signs/Intake and Output Vital Signs (last 24 hours): Temp Pulse Resp BP Pulse Ox 97.7 F 75 20 159/66 H 98 04/17/16 17:10 04/17/16 17:10 04/17/16 17:10 04/17/16 17:10 04/17/16 17:10 - Medications Medications: Current Medications Acetaminophen (Tylenol 325mg Tab) 650 mg PO Q6 PRN PRN Reason: Pain, Mild (1-3) Last Admin: 04/15/16 12:28 Dose: 650 mg Bethanechol Chloride (Urecholine) 50 mg PO TID [facility] Last Admin: 04/17/16 17:52 Dose: 50 mg Carbidopa/Levodopa (Rytary Er 48.75 Mg-195 Mg Cap) 1 cap PO TID@0500,1300,2100 [facility] Last Admin: 04/17/16 13:16 Dose: 1 cap Docusate Sodium (Colace) 100 mg PO BID [facility] Last Admin: 04/17/16 09:41 Dose: 100 mg Fluocinonide (Lidex 0.05% Oint) 1 applic TOP BID [facility] Last Admin: 04/17/16 17:51 Dose: 1 applic Magnesium Hydroxide (Milk Of Magnesia) 30 ml PO DAILY PRN PRN Reason: Constipation Last Admin: 04/09/16 08:25 Dose: 30 ml Midodrine (Proamatine) 10 mg PO TID [facility] Last Admin: 04/17/16 17:51 Dose: 10 mg Quetiapine Fumarate (Seroquel) 50 mg PO HS PRN PRN Reason: Agitation Last Admin: 04/14/16 20:44 Dose: 50 mg Tramadol HCl (Ultram) 50 mg PO TID PRN PRN Reason: Pain, moderate (4-7) Last Admin: 04/17/16 18:00 Dose: 50 mg - Labs Labs: 02/19/16 05:10 02/19/16 05:10 - Respiratory Exam Respiratory Exam: NORMAL BREATHING PATTERN - Cardiovascular Exam Cardiovascular Exam: REGULAR RHYTHM - GI/Abdominal Exam GI & Abdominal Exam: Normal Bowel Sounds Assessment and Plan - Assessment and Plan (Free Text) Assessment: MSA Parkinsons DX Lilia Wrayer PT Rytary 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 ID consult appreciated
[2016-04-18] MEDS: CARBIDOPA PO SCH ×3 (05:40→21:26)
[2016-04-18] MEDS: LEVODOPA PO SCH ×3 (05:40→21:26)
[2016-04-18] MEDS: Bethanechol 50 MG TAB PO SCH ×3 (09:17→16:33)
--- NOTE | 2016-04-18 20:37 | CP.PCM.PN ---
Subjective - Date & Time of Evaluation Date of Evaluation: 04/18/16 Time of Evaluation: 22:22 - Subjective Subjective: No change Objective - Vital Signs/Intake and Output Vital Signs (last 24 hours): Temp Pulse Resp BP Pulse Ox 97.9 F 101 H 20 130/63 96 04/18/16 17:53 04/18/16 17:53 04/18/16 17:53 04/18/16 17:53 04/18/16 17:53 - Medications Medications: Current Medications Acetaminophen (Tylenol 325mg Tab) 650 mg PO Q6 PRN PRN Reason: Pain, Mild (1-3) Last Admin: 04/15/16 12:28 Dose: 650 mg Bethanechol Chloride (Urecholine) 50 mg PO TID [facility] Last Admin: 04/18/16 16:33 Dose: 50 mg Carbidopa/Levodopa (Rytary Er 48.75 Mg-195 Mg Cap) 1 cap PO TID@0500,1300,2100 [facility] Last Admin: 04/18/16 12:24 Dose: 1 cap Docusate Sodium (Colace) 100 mg PO BID [facility] Last Admin: 04/18/16 16:34 Dose: 100 mg Fluocinonide (Lidex 0.05% Oint) 1 applic TOP BID [facility] Last Admin: 04/18/16 16:36 Dose: 1 applic Magnesium Hydroxide (Milk Of Magnesia) 30 ml PO DAILY PRN PRN Reason: Constipation Last Admin: 04/09/16 08:25 Dose: 30 ml Midodrine (Proamatine) 10 mg PO TID [facility] Last Admin: 04/18/16 16:34 Dose: 10 mg Quetiapine Fumarate (Seroquel) 50 mg PO HS PRN PRN Reason: Agitation Last Admin: 04/18/16 16:34 Dose: 50 mg Tramadol HCl (Ultram) 50 mg PO TID PRN PRN Reason: Pain, moderate (4-7) Last Admin: 04/17/16 18:00 Dose: 50 mg - Labs Labs: 02/19/16 05:10 02/19/16 05:10 - Respiratory Exam Respiratory Exam: NORMAL BREATHING PATTERN - Cardiovascular Exam Cardiovascular Exam: REGULAR RHYTHM - GI/Abdominal Exam GI & Abdominal Exam: Normal Bowel Sounds Assessment and Plan - Assessment and Plan (Free Text) Assessment: MSA Parkinsons DX Lilia Wrayer PT Rytary 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 ID consult appreciated
[2016-04-19] MEDS: CARBIDOPA PO SCH ×3 (05:34→21:00)
[2016-04-19] MEDS: LEVODOPA PO SCH ×3 (05:34→21:00)
[2016-04-19] MEDS: Bethanechol 50 MG TAB PO SCH ×3 (08:57→16:59)
--- NOTE | 2016-04-19 18:41 | CP.PCM.PN ---
Subjective - Date & Time of Evaluation Date of Evaluation: 04/19/16 Time of Evaluation: 22:22 - Subjective Subjective: Above noted Objective - Vital Signs/Intake and Output Vital Signs (last 24 hours): Temp Pulse Resp BP Pulse Ox 96.8 F L 86 18 130/50 L 98 04/19/16 17:11 04/19/16 17:11 04/19/16 17:11 04/19/16 17:11 04/19/16 17:11 - Medications Medications: Current Medications Acetaminophen (Tylenol 325mg Tab) 650 mg PO Q6 PRN PRN Reason: Pain, Mild (1-3) Last Admin: 04/15/16 12:28 Dose: 650 mg Bethanechol Chloride (Urecholine) 50 mg PO TID [facility] Last Admin: 04/19/16 16:59 Dose: 50 mg Carbidopa/Levodopa (Rytary Er 48.75 Mg-195 Mg Cap) 1 cap PO TID@0500,1300,2100 [facility] Last Admin: 04/19/16 12:03 Dose: 1 cap Docusate Sodium (Colace) 100 mg PO BID [facility] Last Admin: 04/19/16 16:59 Dose: 100 mg Fluocinonide (Lidex 0.05% Oint) 1 applic TOP BID [facility] Last Admin: 04/19/16 16:59 Dose: 1 applic Magnesium Hydroxide (Milk Of Magnesia) 30 ml PO DAILY PRN PRN Reason: Constipation Last Admin: 04/09/16 08:25 Dose: 30 ml Midodrine (Proamatine) 10 mg PO TID [facility] Last Admin: 04/19/16 16:58 Dose: 10 mg Quetiapine Fumarate (Seroquel) 50 mg PO HS PRN PRN Reason: Agitation Last Admin: 04/18/16 16:34 Dose: 50 mg Tramadol HCl (Ultram) 50 mg PO TID PRN PRN Reason: Pain, moderate (4-7) Last Admin: 04/19/16 12:00 Dose: 50 mg - Labs Labs: 02/19/16 05:10 02/19/16 05:10 - Respiratory Exam Respiratory Exam: NORMAL BREATHING PATTERN - Cardiovascular Exam Cardiovascular Exam: REGULAR RHYTHM - GI/Abdominal Exam GI & Abdominal Exam: Normal Bowel Sounds Assessment and Plan - Assessment and Plan (Free Text) Assessment: MSA Parkinsons DX Lilia Wrayer PT Rytary 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 ID consult appreciated
[2016-04-20] MEDS: CARBIDOPA PO SCH ×3 (05:11→20:53)
[2016-04-20] MEDS: LEVODOPA PO SCH ×3 (05:11→20:53)
[2016-04-20] MEDS: Bethanechol 50 MG TAB PO SCH ×3 (08:21→16:07)
[2016-04-21] MEDS: LEVODOPA PO SCH ×3 (05:37→20:53)
[2016-04-21] MEDS: CARBIDOPA PO SCH ×3 (05:37→20:53)
[2016-04-21] MEDS: Bethanechol 50 MG TAB PO SCH ×3 (09:12→16:02)
--- NOTE | 2016-04-21 15:23 | CP.PCM.PN ---
Subjective - Date & Time of Evaluation Date of Evaluation: 04/21/16 Time of Evaluation: 22:22 - Subjective Subjective: Above noted Objective - Vital Signs/Intake and Output Vital Signs (last 24 hours): Temp Pulse Resp BP Pulse Ox 98 F 83 20 127/77 94 L 04/21/16 09:00 04/21/16 09:00 04/21/16 09:00 04/21/16 09:00 04/21/16 09:00 - Medications Medications: Current Medications Acetaminophen (Tylenol 325mg Tab) 650 mg PO Q6 PRN PRN Reason: Pain, Mild (1-3) Last Admin: 04/21/16 13:41 Dose: 650 mg Bethanechol Chloride (Urecholine) 50 mg PO TID [facility] Last Admin: 04/21/16 12:44 Dose: 50 mg Carbidopa/Levodopa (Rytary Er 48.75 Mg-195 Mg Cap) 1 cap PO TID@0500,1300,2100 [facility] Last Admin: 04/21/16 12:45 Dose: 1 cap Docusate Sodium (Colace) 100 mg PO BID [facility] Last Admin: 04/21/16 09:13 Dose: 100 mg Fluocinonide (Lidex 0.05% Oint) 1 applic TOP BID [facility] Last Admin: 04/21/16 09:13 Dose: 1 applic Magnesium Hydroxide (Milk Of Magnesia) 30 ml PO DAILY PRN PRN Reason: Constipation Last Admin: 04/09/16 08:25 Dose: 30 ml Midodrine (Proamatine) 10 mg PO TID [facility] Last Admin: 04/21/16 12:45 Dose: 10 mg Quetiapine Fumarate (Seroquel) 50 mg PO HS PRN PRN Reason: Agitation Last Admin: 04/18/16 16:34 Dose: 50 mg - Labs Labs: 02/19/16 05:10 02/19/16 05:10 - Respiratory Exam Respiratory Exam: NORMAL BREATHING PATTERN - Cardiovascular Exam Cardiovascular Exam: REGULAR RHYTHM - GI/Abdominal Exam GI & Abdominal Exam: Normal Bowel Sounds Assessment and Plan - Assessment and Plan (Free Text) Assessment: MSA Parkinsons DX Lilia Vieira PT Rytary 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 ID consult appreciated
[2016-04-22] MEDS: CARBIDOPA PO SCH ×3 (05:30→21:10)
[2016-04-22] MEDS: LEVODOPA PO SCH ×3 (05:30→21:10)
[2016-04-22] MEDS: Bethanechol 50 MG TAB PO SCH ×3 (08:12→16:09)
--- NOTE | 2016-04-22 21:01 | CP.PCM.PN ---
Subjective - Date & Time of Evaluation Date of Evaluation: 04/22/16 Time of Evaluation: 22:22 - Subjective Subjective: Doing well Objective - Vital Signs/Intake and Output Vital Signs (last 24 hours): Temp Pulse Resp BP Pulse Ox 97.1 F L 77 20 140/81 99 04/22/16 16:27 04/22/16 16:27 04/22/16 16:27 04/22/16 16:27 04/22/16 16:27 - Medications Medications: Current Medications Acetaminophen (Tylenol 325mg Tab) 650 mg PO Q6 PRN PRN Reason: Pain, Mild (1-3) Last Admin: 04/21/16 13:41 Dose: 650 mg Bethanechol Chloride (Urecholine) 50 mg PO TID [facility] Last Admin: 04/22/16 16:09 Dose: 50 mg Carbidopa/Levodopa (Rytary Er 48.75 Mg-195 Mg Cap) 1 cap PO TID@0500,1300,2100 [facility] Last Admin: 04/22/16 12:03 Dose: 1 cap Docusate Sodium (Colace) 100 mg PO BID [facility] Last Admin: 04/22/16 16:10 Dose: 100 mg Fluocinonide (Lidex 0.05% Oint) 1 applic TOP BID [facility] Last Admin: 04/22/16 16:10 Dose: 1 applic Magnesium Hydroxide (Milk Of Magnesia) 30 ml PO DAILY PRN PRN Reason: Constipation Last Admin: 04/09/16 08:25 Dose: 30 ml Midodrine (Proamatine) 10 mg PO TID [facility] Last Admin: 04/22/16 16:10 Dose: 10 mg Quetiapine Fumarate (Seroquel) 50 mg PO HS PRN PRN Reason: Agitation Last Admin: 04/18/16 16:34 Dose: 50 mg - Labs Labs: 02/19/16 05:10 02/19/16 05:10 - Respiratory Exam Respiratory Exam: NORMAL BREATHING PATTERN - Cardiovascular Exam Cardiovascular Exam: REGULAR RHYTHM - GI/Abdominal Exam GI & Abdominal Exam: Normal Bowel Sounds Assessment and Plan - Assessment and Plan (Free Text) Assessment: MSA Parkinsons DX Lilia Vieira PT Rytary 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 ID consult appreciated
[2016-04-23] MEDS: CARBIDOPA PO SCH ×3 (04:54→21:08)
[2016-04-23] MEDS: LEVODOPA PO SCH ×3 (04:54→21:08)
[2016-04-23] MEDS: Bethanechol 50 MG TAB PO SCH ×3 (08:37→16:04)
--- NOTE | 2016-04-23 11:25 | CP.PCM.PN ---
Subjective - Date & Time of Evaluation Date of Evaluation: 04/23/16 Time of Evaluation: 22:22 - Subjective Subjective: No change Objective - Vital Signs/Intake and Output Vital Signs (last 24 hours): Temp Pulse Resp BP Pulse Ox 98 F 98 H 18 111/68 98 04/23/16 08:18 04/23/16 08:18 04/23/16 08:18 04/23/16 08:18 04/23/16 08:18 - Medications Medications: Current Medications Acetaminophen (Tylenol 325mg Tab) 650 mg PO Q6 PRN PRN Reason: Pain, Mild (1-3) Last Admin: 04/23/16 08:39 Dose: 650 mg Bethanechol Chloride (Urecholine) 50 mg PO TID [facility] Last Admin: 04/23/16 08:37 Dose: 50 mg Carbidopa/Levodopa (Rytary Er 48.75 Mg-195 Mg Cap) 1 cap PO TID@0500,1300,2100 [facility] Last Admin: 04/23/16 04:54 Dose: 1 cap Docusate Sodium (Colace) 100 mg PO BID [facility] Last Admin: 04/23/16 08:37 Dose: 100 mg Fluocinonide (Lidex 0.05% Oint) 1 applic TOP BID [facility] Last Admin: 04/23/16 08:37 Dose: 1 applic Magnesium Hydroxide (Milk Of Magnesia) 30 ml PO DAILY PRN PRN Reason: Constipation Last Admin: 04/09/16 08:25 Dose: 30 ml Midodrine (Proamatine) 10 mg PO TID [facility] Last Admin: 04/23/16 08:37 Dose: 10 mg Quetiapine Fumarate (Seroquel) 50 mg PO HS PRN PRN Reason: Agitation Last Admin: 04/22/16 21:11 Dose: 50 mg - Labs Labs: 02/19/16 05:10 02/19/16 05:10 - Respiratory Exam Respiratory Exam: NORMAL BREATHING PATTERN - Cardiovascular Exam Cardiovascular Exam: REGULAR RHYTHM - GI/Abdominal Exam GI & Abdominal Exam: Normal Bowel Sounds Assessment and Plan - Assessment and Plan (Free Text) Assessment: MSA Parkinsons DX Lilia Vieira PT Rytary 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 ID consult appreciated
[2016-04-24] MEDS: CARBIDOPA PO SCH ×3 (05:23→21:12)
[2016-04-24] MEDS: LEVODOPA PO SCH ×3 (05:23→21:12)
[2016-04-24] MEDS: Bethanechol 50 MG TAB PO SCH ×3 (08:46→16:14)
[2016-04-25] MEDS: CARBIDOPA PO SCH ×3 (05:03→21:06)
[2016-04-25] MEDS: LEVODOPA PO SCH ×3 (05:03→21:06)
[2016-04-25] MEDS: Bethanechol 50 MG TAB PO SCH ×3 (08:45→16:19)
--- NOTE | 2016-04-25 20:16 | CP.PCM.PN ---
Subjective - Date & Time of Evaluation Date of Evaluation: 04/25/16 Time of Evaluation: 22:22 - Subjective Subjective: Above noted Objective - Vital Signs/Intake and Output Vital Signs (last 24 hours): Temp Pulse Resp BP Pulse Ox 97.9 F 94 H 20 133/70 98 04/25/16 16:32 04/25/16 16:32 04/25/16 16:32 04/25/16 16:32 04/25/16 16:32 - Medications Medications: Current Medications Acetaminophen (Tylenol 325mg Tab) 650 mg PO Q6 PRN PRN Reason: Pain, Mild (1-3) Last Admin: 04/25/16 12:08 Dose: 650 mg Bethanechol Chloride (Urecholine) 50 mg PO TID [facility] Last Admin: 04/25/16 16:19 Dose: 50 mg Carbidopa/Levodopa (Rytary Er 48.75 Mg-195 Mg Cap) 1 cap PO TID@0500,1300,2100 [facility] Last Admin: 04/25/16 12:39 Dose: 1 cap Docusate Sodium (Colace) 100 mg PO BID [facility] Last Admin: 04/25/16 16:18 Dose: 100 mg Fluocinonide (Lidex 0.05% Oint) 1 applic TOP BID [facility] Last Admin: 04/25/16 16:18 Dose: 1 applic Magnesium Hydroxide (Milk Of Magnesia) 30 ml PO DAILY PRN PRN Reason: Constipation Last Admin: 04/09/16 08:25 Dose: 30 ml Midodrine (Proamatine) 10 mg PO TID [facility] Last Admin: 04/25/16 16:19 Dose: 10 mg Quetiapine Fumarate (Seroquel) 50 mg PO HS PRN PRN Reason: Agitation Last Admin: 04/23/16 22:31 Dose: 50 mg - Labs Labs: 02/19/16 05:10 02/19/16 05:10 - Respiratory Exam Respiratory Exam: NORMAL BREATHING PATTERN - Cardiovascular Exam Cardiovascular Exam: REGULAR RHYTHM - GI/Abdominal Exam GI & Abdominal Exam: Normal Bowel Sounds Assessment and Plan - Assessment and Plan (Free Text) Assessment: MSA Parkinsons DX Lilia Vieira PT Rytary 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 ID consult appreciated
[2016-04-26] MEDS: CARBIDOPA PO SCH ×3 (04:02→20:57)
[2016-04-26] MEDS: LEVODOPA PO SCH ×3 (04:02→20:57)
[2016-04-26] MEDS: Bethanechol 50 MG TAB PO SCH ×3 (08:37→16:11)
--- NOTE | 2016-04-26 18:57 | CP.PCM.PN ---
Subjective - Date & Time of Evaluation Date of Evaluation: 04/26/16 Time of Evaluation: 22:22 - Subjective Subjective: No change in status Objective - Vital Signs/Intake and Output Vital Signs (last 24 hours): Temp Pulse Resp BP Pulse Ox 97.3 F L 97 H 20 125/78 97 04/26/16 16:52 04/26/16 16:52 04/26/16 16:52 04/26/16 16:52 04/26/16 16:52 - Medications Medications: Current Medications Acetaminophen (Tylenol 325mg Tab) 650 mg PO Q6 PRN PRN Reason: Pain, Mild (1-3) Last Admin: 04/25/16 12:08 Dose: 650 mg Bethanechol Chloride (Urecholine) 50 mg PO TID [facility] Last Admin: 04/26/16 16:11 Dose: 50 mg Carbidopa/Levodopa (Rytary Er 48.75 Mg-195 Mg Cap) 1 cap PO TID@0500,1300,2100 [facility] Last Admin: 04/26/16 14:55 Dose: 1 cap Docusate Sodium (Colace) 100 mg PO BID [facility] Last Admin: 04/26/16 16:10 Dose: 100 mg Fluocinonide (Lidex 0.05% Oint) 1 applic TOP BID [facility] Last Admin: 04/26/16 16:10 Dose: 1 applic Magnesium Hydroxide (Milk Of Magnesia) 30 ml PO DAILY PRN PRN Reason: Constipation Last Admin: 04/09/16 08:25 Dose: 30 ml Midodrine (Proamatine) 10 mg PO TID [facility] Last Admin: 04/26/16 16:11 Dose: 10 mg Quetiapine Fumarate (Seroquel) 50 mg PO HS PRN PRN Reason: Agitation Last Admin: 04/23/16 22:31 Dose: 50 mg - Labs Labs: 02/19/16 05:10 02/19/16 05:10 - Respiratory Exam Respiratory Exam: NORMAL BREATHING PATTERN - Cardiovascular Exam Cardiovascular Exam: REGULAR RHYTHM - GI/Abdominal Exam GI & Abdominal Exam: Normal Bowel Sounds Assessment and Plan - Assessment and Plan (Free Text) Assessment: MSA Parkinsons DX Lilia Wrayer PT Rytary 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 ID consult appreciated
[2016-04-27] MEDS: LEVODOPA PO SCH ×3 (05:21→20:39)
[2016-04-27] MEDS: CARBIDOPA PO SCH ×3 (05:21→20:39)
[2016-04-27] MEDS: Bethanechol 50 MG TAB PO SCH ×3 (09:07→16:02)
[2016-04-28] MEDS: LEVODOPA PO SCH ×3 (05:13→21:35)
[2016-04-28] MEDS: CARBIDOPA PO SCH ×3 (05:13→21:35)
[2016-04-28] MEDS: Bethanechol 50 MG TAB PO SCH ×3 (08:02→16:21)
--- NOTE | 2016-04-28 12:43 | CP.PCM.PN ---
Subjective - Date & Time of Evaluation Date of Evaluation: 04/28/16 Time of Evaluation: 22:22 - Subjective Subjective: Above noted Objective - Vital Signs/Intake and Output Vital Signs (last 24 hours): Temp Pulse Resp BP Pulse Ox 96.3 F L 78 20 111/66 99 04/28/16 07:45 04/28/16 07:45 04/28/16 07:45 04/28/16 07:45 04/28/16 07:45 - Medications Medications: Current Medications Acetaminophen (Tylenol 325mg Tab) 650 mg PO Q6 PRN PRN Reason: Pain, Mild (1-3) Last Admin: 04/25/16 12:08 Dose: 650 mg Bethanechol Chloride (Urecholine) 50 mg PO TID [facility] Last Admin: 04/28/16 12:00 Dose: 50 mg Carbidopa/Levodopa (Rytary Er 48.75 Mg-195 Mg Cap) 1 cap PO TID@0500,1300,2100 [facility] Last Admin: 04/28/16 12:01 Dose: 1 cap Docusate Sodium (Colace) 100 mg PO BID [facility] Last Admin: 04/28/16 08:02 Dose: 100 mg Fluocinonide (Lidex 0.05% Oint) 1 applic TOP BID [facility] Last Admin: 04/28/16 08:03 Dose: 1 applic Magnesium Hydroxide (Milk Of Magnesia) 30 ml PO DAILY PRN PRN Reason: Constipation Last Admin: 04/09/16 08:25 Dose: 30 ml Midodrine (Proamatine) 10 mg PO TID [facility] Last Admin: 04/28/16 12:00 Dose: 10 mg Quetiapine Fumarate (Seroquel) 50 mg PO HS PRN PRN Reason: Agitation Last Admin: 04/23/16 22:31 Dose: 50 mg - Labs Labs: 02/19/16 05:10 02/19/16 05:10 Assessment and Plan - Assessment and Plan (Free Text) Assessment: MSA Parkinsons DX Lilia Wrayer PT Rytary 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 ID consult appreciated
[2016-04-29] MEDS: CARBIDOPA PO SCH ×3 (05:00→21:35)
[2016-04-29] MEDS: LEVODOPA PO SCH ×3 (05:00→21:35)
[2016-04-29] MEDS: Bethanechol 50 MG TAB PO SCH ×3 (09:23→17:08)
[2016-04-30] MEDS: CARBIDOPA PO SCH ×3 (04:08→22:55)
[2016-04-30] MEDS: LEVODOPA PO SCH ×3 (04:08→22:55)
[2016-04-30] MEDS: Bethanechol 50 MG TAB PO SCH ×3 (09:11→16:09)
[2016-05-01] MEDS: CARBIDOPA PO SCH ×3 (05:30→22:42)
[2016-05-01] MEDS: LEVODOPA PO SCH ×3 (05:30→22:42)
[2016-05-01] MEDS: Bethanechol 50 MG TAB PO SCH ×3 (08:41→16:26)
--- NOTE | 2016-05-01 20:31 | CP.PCM.PN ---
Subjective - Date & Time of Evaluation Date of Evaluation: 05/01/16 Time of Evaluation: 22:22 - Subjective Subjective: No change Objective - Vital Signs/Intake and Output Vital Signs (last 24 hours): Temp Pulse Resp BP Pulse Ox 97.7 F 73 20 127/65 99 05/01/16 16:20 05/01/16 16:20 05/01/16 16:20 05/01/16 16:20 05/01/16 16:20 - Medications Medications: Current Medications Acetaminophen (Tylenol 325mg Tab) 650 mg PO Q6 PRN PRN Reason: Pain, Mild (1-3) Last Admin: 04/25/16 12:08 Dose: 650 mg Bethanechol Chloride (Urecholine) 50 mg PO TID [facility] Last Admin: 05/01/16 16:26 Dose: 50 mg Carbidopa/Levodopa (Rytary Er 48.75 Mg-195 Mg Cap) 1 cap PO TID@0500,1300,2100 [facility] Last Admin: 05/01/16 13:04 Dose: 1 cap Docusate Sodium (Colace) 100 mg PO BID [facility] Last Admin: 05/01/16 16:26 Dose: 100 mg Fluocinonide (Lidex 0.05% Oint) 1 applic TOP BID [facility] Last Admin: 05/01/16 16:26 Dose: 1 applic Magnesium Hydroxide (Milk Of Magnesia) 30 ml PO DAILY PRN PRN Reason: Constipation Last Admin: 04/09/16 08:25 Dose: 30 ml Midodrine (Proamatine) 10 mg PO TID [facility] Last Admin: 05/01/16 12:19 Dose: 10 mg Quetiapine Fumarate (Seroquel) 50 mg PO HS PRN PRN Reason: Agitation Last Admin: 04/23/16 22:31 Dose: 50 mg - Labs Labs: 02/19/16 05:10 02/19/16 05:10 - Respiratory Exam Respiratory Exam: NORMAL BREATHING PATTERN - Cardiovascular Exam Cardiovascular Exam: REGULAR RHYTHM - GI/Abdominal Exam GI & Abdominal Exam: Normal Bowel Sounds Assessment and Plan - Assessment and Plan (Free Text) Assessment: MSA Parkinsons DX Lilia Vieira PT Rytary 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 ID consult appreciated
[2016-05-02] MEDS: LEVODOPA PO SCH ×3 (05:06→20:46)
[2016-05-02] MEDS: CARBIDOPA PO SCH ×3 (05:06→20:46)
[2016-05-02] MEDS: Bethanechol 50 MG TAB PO SCH ×3 (08:23→16:37)
--- NOTE | 2016-05-02 20:37 | CP.PCM.PN ---
Subjective - Date & Time of Evaluation Date of Evaluation: 05/02/16 Time of Evaluation: 22:22 - Subjective Subjective: Long d/w SS Objective - Vital Signs/Intake and Output Vital Signs (last 24 hours): Temp Pulse Resp BP Pulse Ox 97.2 F L 82 18 133/92 H 100 05/02/16 17:24 05/02/16 17:24 05/02/16 17:24 05/02/16 17:24 05/02/16 17:24 - Medications Medications: Current Medications Acetaminophen (Tylenol 325mg Tab) 650 mg PO Q6 PRN PRN Reason: Pain, Mild (1-3) Last Admin: 04/25/16 12:08 Dose: 650 mg Bethanechol Chloride (Urecholine) 50 mg PO TID [facility] Last Admin: 05/02/16 16:37 Dose: 50 mg Carbidopa/Levodopa (Rytary Er 48.75 Mg-195 Mg Cap) 1 cap PO TID@0500,1300,2100 [facility] Last Admin: 05/02/16 12:08 Dose: 1 cap Docusate Sodium (Colace) 100 mg PO BID [facility] Last Admin: 05/02/16 16:37 Dose: 100 mg Fluocinonide (Lidex 0.05% Oint) 1 applic TOP BID [facility] Last Admin: 05/02/16 16:36 Dose: 1 applic Magnesium Hydroxide (Milk Of Magnesia) 30 ml PO DAILY PRN PRN Reason: Constipation Last Admin: 04/09/16 08:25 Dose: 30 ml Midodrine (Proamatine) 10 mg PO TID [facility] Last Admin: 05/02/16 16:37 Dose: 10 mg Quetiapine Fumarate (Seroquel) 50 mg PO HS PRN PRN Reason: Agitation Last Admin: 04/23/16 22:31 Dose: 50 mg - Labs Labs: 02/19/16 05:10 02/19/16 05:10 - Respiratory Exam Respiratory Exam: NORMAL BREATHING PATTERN - Cardiovascular Exam Cardiovascular Exam: REGULAR RHYTHM - GI/Abdominal Exam GI & Abdominal Exam: Normal Bowel Sounds Assessment and Plan - Assessment and Plan (Free Text) Assessment: MSA Parkinsons DX Lilia Drager PT Rytary 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 ID consult appreciated
[2016-05-03] MEDS: LEVODOPA PO SCH ×3 (04:57→20:54)
[2016-05-03] MEDS: CARBIDOPA PO SCH ×3 (04:57→20:54)
[2016-05-03] MEDS: Bethanechol 50 MG TAB PO SCH ×3 (08:39→16:53)
--- NOTE | 2016-05-03 18:37 | CP.PCM.PN ---
Subjective - Date & Time of Evaluation Date of Evaluation: 05/03/16 Time of Evaluation: 22:22 - Subjective Subjective: Above noted Objective - Vital Signs/Intake and Output Vital Signs (last 24 hours): Temp Pulse Resp BP Pulse Ox 97.7 F 76 20 130/75 99 05/03/16 17:03 05/03/16 17:03 05/03/16 17:03 05/03/16 17:03 05/03/16 17:03 - Medications Medications: Current Medications Acetaminophen (Tylenol 325mg Tab) 650 mg PO Q6 PRN PRN Reason: Pain, Mild (1-3) Last Admin: 05/03/16 16:59 Dose: 650 mg Bethanechol Chloride (Urecholine) 50 mg PO TID [facility] Last Admin: 05/03/16 16:53 Dose: 50 mg Carbidopa/Levodopa (Rytary Er 48.75 Mg-195 Mg Cap) 1 cap PO TID@0500,1300,2100 [facility] Last Admin: 05/03/16 13:48 Dose: 1 cap Docusate Sodium (Colace) 100 mg PO BID [facility] Last Admin: 05/03/16 16:53 Dose: 100 mg Fluocinonide (Lidex 0.05% Oint) 1 applic TOP BID [facility] Last Admin: 05/03/16 16:53 Dose: 1 applic Magnesium Hydroxide (Milk Of Magnesia) 30 ml PO DAILY PRN PRN Reason: Constipation Last Admin: 04/09/16 08:25 Dose: 30 ml Midodrine (Proamatine) 10 mg PO TID [facility] Last Admin: 05/03/16 16:53 Dose: 10 mg Quetiapine Fumarate (Seroquel) 50 mg PO HS PRN PRN Reason: Agitation Last Admin: 04/23/16 22:31 Dose: 50 mg - Labs Labs: 02/19/16 05:10 02/19/16 05:10 - Respiratory Exam Respiratory Exam: NORMAL BREATHING PATTERN - Cardiovascular Exam Cardiovascular Exam: REGULAR RHYTHM - GI/Abdominal Exam GI & Abdominal Exam: Normal Bowel Sounds Assessment and Plan - Assessment and Plan (Free Text) Assessment: MSA Parkinsons DX Lilia Vieira PT Rytary 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 ID consult appreciated
[2016-05-04] MEDS: LEVODOPA PO SCH ×3 (05:31→20:57)
[2016-05-04] MEDS: CARBIDOPA PO SCH ×3 (05:31→20:57)
[2016-05-04] MEDS: Bethanechol 50 MG TAB PO SCH ×3 (09:29→16:06)
[2016-05-05] MEDS: LEVODOPA PO SCH ×3 (04:53→20:40)
[2016-05-05] MEDS: CARBIDOPA PO SCH ×3 (04:53→20:40)
[2016-05-05] MEDS: Bethanechol 50 MG TAB PO SCH ×3 (09:00→16:03)
[2016-05-05] MEDS: Magnesium Hydroxide Susp 30 ml UD PO PRN (09:02)
--- NOTE | 2016-05-05 12:33 | CP.PCM.PN ---
Subjective - Date & Time of Evaluation Date of Evaluation: 05/05/16 Time of Evaluation: 22:22 - Subjective Subjective: Sitting in chair Alert and responsive Objective - Vital Signs/Intake and Output Vital Signs (last 24 hours): Temp Pulse Resp BP Pulse Ox 97 F L 63 20 111/62 96 05/05/16 09:00 05/05/16 09:00 05/05/16 09:00 05/05/16 09:00 05/05/16 09:00 - Medications Medications: Current Medications Acetaminophen (Tylenol 325mg Tab) 650 mg PO Q6 PRN PRN Reason: Pain, Mild (1-3) Last Admin: 05/03/16 16:59 Dose: 650 mg Bethanechol Chloride (Urecholine) 50 mg PO TID [facility] Last Admin: 05/05/16 12:15 Dose: 50 mg Carbidopa/Levodopa (Rytary Er 48.75 Mg-195 Mg Cap) 1 cap PO TID@0500,1300,2100 [facility] Last Admin: 05/05/16 12:15 Dose: 1 cap Docusate Sodium (Colace) 100 mg PO BID [facility] Last Admin: 05/05/16 08:59 Dose: 100 mg Fluocinonide (Lidex 0.05% Oint) 1 applic TOP BID [facility] Last Admin: 05/05/16 08:59 Dose: 1 applic Magnesium Hydroxide (Milk Of Magnesia) 30 ml PO DAILY PRN PRN Reason: Constipation Last Admin: 05/05/16 09:02 Dose: 30 ml Midodrine (Proamatine) 10 mg PO TID [facility] Last Admin: 05/05/16 12:15 Dose: 10 mg Quetiapine Fumarate (Seroquel) 50 mg PO HS PRN PRN Reason: Agitation Last Admin: 04/23/16 22:31 Dose: 50 mg - Labs Labs: 02/19/16 05:10 02/19/16 05:10 - Respiratory Exam Respiratory Exam: NORMAL BREATHING PATTERN - Cardiovascular Exam Cardiovascular Exam: REGULAR RHYTHM - GI/Abdominal Exam GI & Abdominal Exam: Normal Bowel Sounds Assessment and Plan - Assessment and Plan (Free Text) Assessment: MSA Parkinsons DX Lilia Vieira PT Rytary 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 ID consult appreciated
[2016-05-06] MEDS: CARBIDOPA PO SCH ×3 (04:36→20:22)
[2016-05-06] MEDS: LEVODOPA PO SCH ×3 (04:36→20:22)
[2016-05-06] MEDS: Bethanechol 50 MG TAB PO SCH ×3 (08:48→16:43)
[2016-05-07] MEDS: CARBIDOPA PO SCH ×3 (04:42→21:03)
[2016-05-07] MEDS: LEVODOPA PO SCH ×3 (04:42→21:03)
[2016-05-07] MEDS: Bethanechol 50 MG TAB PO SCH ×3 (09:01→16:09)
--- NOTE | 2016-05-07 12:13 | CP.PCM.PN ---
Subjective - Date & Time of Evaluation Date of Evaluation: 05/07/16 Time of Evaluation: 22:22 - Subjective Subjective: Pt doing well wants to go home Objective - Vital Signs/Intake and Output Vital Signs (last 24 hours): Temp Pulse Resp BP Pulse Ox 97.5 F L 92 H 20 117/59 L 100 05/07/16 07:37 05/07/16 07:37 05/07/16 07:37 05/07/16 07:37 05/07/16 07:37 - Medications Medications: Current Medications Acetaminophen (Tylenol 325mg Tab) 650 mg PO Q6 PRN PRN Reason: Pain, Mild (1-3) Last Admin: 05/07/16 09:41 Dose: 650 mg Bethanechol Chloride (Urecholine) 50 mg PO TID [facility] Last Admin: 05/07/16 09:01 Dose: 50 mg Carbidopa/Levodopa (Rytary Er 48.75 Mg-195 Mg Cap) 1 cap PO TID@0500,1300,2100 [facility] Last Admin: 05/07/16 04:42 Dose: 1 cap Docusate Sodium (Colace) 100 mg PO BID [facility] Last Admin: 05/07/16 09:00 Dose: 100 mg Fluocinonide (Lidex 0.05% Oint) 1 applic TOP BID [facility] Last Admin: 05/07/16 09:00 Dose: 1 applic Magnesium Hydroxide (Milk Of Magnesia) 30 ml PO DAILY PRN PRN Reason: Constipation Last Admin: 05/05/16 09:02 Dose: 30 ml Midodrine (Proamatine) 10 mg PO TID [facility] Last Admin: 05/07/16 09:01 Dose: 10 mg Quetiapine Fumarate (Seroquel) 50 mg PO HS PRN PRN Reason: Agitation Last Admin: 04/23/16 22:31 Dose: 50 mg - Labs Labs: 02/19/16 05:10 02/19/16 05:10 - Respiratory Exam Respiratory Exam: NORMAL BREATHING PATTERN - Cardiovascular Exam Cardiovascular Exam: REGULAR RHYTHM - GI/Abdominal Exam GI & Abdominal Exam: Normal Bowel Sounds Assessment and Plan - Assessment and Plan (Free Text) Assessment: MSA Parkinsons DX Lilia Vieira PT Rytary 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 ID consult appreciated
[2016-05-08] MEDS: CARBIDOPA PO SCH ×3 (05:25→20:45)
[2016-05-08] MEDS: LEVODOPA PO SCH ×3 (05:25→20:45)
[2016-05-08] MEDS: Bethanechol 50 MG TAB PO SCH ×3 (08:07→16:00)
--- NOTE | 2016-05-08 20:25 | CP.PCM.PN ---
Subjective - Date & Time of Evaluation Date of Evaluation: 05/08/16 Time of Evaluation: 22:22 - Subjective Subjective: Long d/w pt Objective - Vital Signs/Intake and Output Vital Signs (last 24 hours): Temp Pulse Resp BP Pulse Ox 97.1 F L 84 20 144/76 100 05/08/16 16:29 05/08/16 16:29 05/08/16 16:29 05/08/16 16:29 05/08/16 16:29 - Medications Medications: Current Medications Acetaminophen (Tylenol 325mg Tab) 650 mg PO Q6 PRN PRN Reason: Pain, Mild (1-3) Last Admin: 05/07/16 09:41 Dose: 650 mg Bethanechol Chloride (Urecholine) 50 mg PO TID [facility] Last Admin: 05/08/16 16:00 Dose: 50 mg Carbidopa/Levodopa (Rytary Er 48.75 Mg-195 Mg Cap) 1 cap PO TID@0500,1300,2100 [facility] Last Admin: 05/08/16 12:13 Dose: 1 cap Docusate Sodium (Colace) 100 mg PO BID [facility] Last Admin: 05/08/16 16:01 Dose: 100 mg Fluocinonide (Lidex 0.05% Oint) 1 applic TOP BID [facility] Last Admin: 05/08/16 16:00 Dose: 1 applic Magnesium Hydroxide (Milk Of Magnesia) 30 ml PO DAILY PRN PRN Reason: Constipation Last Admin: 05/05/16 09:02 Dose: 30 ml Midodrine (Proamatine) 10 mg PO TID [facility] Last Admin: 05/08/16 16:00 Dose: 10 mg Quetiapine Fumarate (Seroquel) 50 mg PO HS PRN PRN Reason: Agitation Last Admin: 04/23/16 22:31 Dose: 50 mg - Labs Labs: 02/19/16 05:10 02/19/16 05:10 - Respiratory Exam Respiratory Exam: NORMAL BREATHING PATTERN - Cardiovascular Exam Cardiovascular Exam: Tachycardia, REGULAR RHYTHM - GI/Abdominal Exam GI & Abdominal Exam: Normal Bowel Sounds Assessment and Plan - Assessment and Plan (Free Text) Assessment: MSA Parkinsons DX Lilia Drager PT Rytary 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 ID consult appreciated
[2016-05-09] MEDS: CARBIDOPA PO SCH ×3 (05:14→21:01)
[2016-05-09] MEDS: LEVODOPA PO SCH ×3 (05:14→21:01)
[2016-05-09] MEDS: Bethanechol 50 MG TAB PO SCH ×3 (08:49→17:04)
--- NOTE | 2016-05-09 20:18 | CP.PCM.PN ---
Subjective - Date & Time of Evaluation Date of Evaluation: 05/09/16 Time of Evaluation: 22:22 - Subjective Subjective: D/W SS today Objective - Vital Signs/Intake and Output Vital Signs (last 24 hours): Temp Pulse Resp BP Pulse Ox 97.3 F L 65 20 148/72 99 05/09/16 17:00 05/09/16 17:00 05/09/16 17:00 05/09/16 17:00 05/09/16 17:00 - Medications Medications: Current Medications Acetaminophen (Tylenol 325mg Tab) 650 mg PO Q6 PRN PRN Reason: Pain, Mild (1-3) Last Admin: 05/07/16 09:41 Dose: 650 mg Bethanechol Chloride (Urecholine) 50 mg PO TID [facility] Last Admin: 05/09/16 17:04 Dose: 50 mg Carbidopa/Levodopa (Rytary Er 48.75 Mg-195 Mg Cap) 1 cap PO TID@0500,1300,2100 [facility] Last Admin: 05/09/16 12:19 Dose: 1 cap Docusate Sodium (Colace) 100 mg PO BID [facility] Last Admin: 05/09/16 17:02 Dose: 100 mg Fluocinonide (Lidex 0.05% Oint) 1 applic TOP BID [facility] Last Admin: 05/09/16 17:02 Dose: 1 applic Magnesium Hydroxide (Milk Of Magnesia) 30 ml PO DAILY PRN PRN Reason: Constipation Last Admin: 05/05/16 09:02 Dose: 30 ml Midodrine (Proamatine) 10 mg PO TID [facility] Last Admin: 05/09/16 17:03 Dose: 10 mg Quetiapine Fumarate (Seroquel) 50 mg PO HS PRN PRN Reason: Agitation Last Admin: 04/23/16 22:31 Dose: 50 mg - Labs Labs: 02/19/16 05:10 02/19/16 05:10 - Respiratory Exam Respiratory Exam: NORMAL BREATHING PATTERN - Cardiovascular Exam Cardiovascular Exam: REGULAR RHYTHM - GI/Abdominal Exam GI & Abdominal Exam: Normal Bowel Sounds Assessment and Plan - Assessment and Plan (Free Text) Assessment: MSA Parkinsons DX Lilia Wrayer PT Rytary 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 ID consult appreciated
[2016-05-10] MEDS: CARBIDOPA PO SCH ×3 (07:00→21:29)
[2016-05-10] MEDS: LEVODOPA PO SCH ×3 (07:00→21:29)
[2016-05-10] MEDS: Bethanechol 50 MG TAB PO SCH ×3 (08:46→16:55)
--- NOTE | 2016-05-10 17:56 | CP.PCM.PN ---
Subjective - Date & Time of Evaluation Date of Evaluation: 05/10/16 Time of Evaluation: 22:22 - Subjective Subjective: D/W SS Objective - Vital Signs/Intake and Output Vital Signs (last 24 hours): Temp Pulse Resp BP Pulse Ox 97 F L 60 18 122/70 97 05/10/16 16:34 05/10/16 16:34 05/10/16 16:34 05/10/16 16:34 05/10/16 16:34 - Medications Medications: Current Medications Acetaminophen (Tylenol 325mg Tab) 650 mg PO Q6 PRN PRN Reason: Pain, Mild (1-3) Last Admin: 05/07/16 09:41 Dose: 650 mg Bethanechol Chloride (Urecholine) 50 mg PO TID [facility] Last Admin: 05/10/16 16:55 Dose: 50 mg Carbidopa/Levodopa (Rytary Er 48.75 Mg-195 Mg Cap) 1 cap PO TID@0500,1300,2100 [facility] Last Admin: 05/10/16 12:36 Dose: 1 cap Docusate Sodium (Colace) 100 mg PO BID [facility] Last Admin: 05/10/16 16:55 Dose: 100 mg Fluocinonide (Lidex 0.05% Oint) 1 applic TOP BID [facility] Last Admin: 05/10/16 16:56 Dose: 1 applic Magnesium Hydroxide (Milk Of Magnesia) 30 ml PO DAILY PRN PRN Reason: Constipation Last Admin: 05/05/16 09:02 Dose: 30 ml Midodrine (Proamatine) 10 mg PO TID [facility] Last Admin: 05/10/16 16:54 Dose: 10 mg Quetiapine Fumarate (Seroquel) 50 mg PO HS PRN PRN Reason: Agitation Last Admin: 04/23/16 22:31 Dose: 50 mg - Labs Labs: 02/19/16 05:10 02/19/16 05:10 - Respiratory Exam Respiratory Exam: NORMAL BREATHING PATTERN - Cardiovascular Exam Cardiovascular Exam: REGULAR RHYTHM - GI/Abdominal Exam GI & Abdominal Exam: Normal Bowel Sounds Assessment and Plan - Assessment and Plan (Free Text) Assessment: MSA Parkinsons DX Lilia Vieira PT Rytary 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 ID consult appreciated
[2016-05-11] MEDS: LEVODOPA PO SCH ×3 (05:10→22:58)
[2016-05-11] MEDS: CARBIDOPA PO SCH ×3 (05:10→22:58)
[2016-05-11] MEDS: Bethanechol 50 MG TAB PO SCH ×3 (08:27→16:51)
[2016-05-12] MEDS: CARBIDOPA PO SCH ×3 (05:09→22:16)
[2016-05-12] MEDS: LEVODOPA PO SCH ×3 (05:09→22:16)
[2016-05-12] MEDS: Bethanechol 50 MG TAB PO SCH ×3 (08:55→16:07)
--- NOTE | 2016-05-12 14:04 | CP.PCM.PN ---
Subjective - Date & Time of Evaluation Date of Evaluation: 05/12/16 Time of Evaluation: 22:22 - Subjective Subjective: Above noted Objective - Vital Signs/Intake and Output Vital Signs (last 24 hours): Temp Pulse Resp BP Pulse Ox 97.4 F L 72 18 98/54 L 98 05/12/16 08:19 05/12/16 08:19 05/12/16 08:19 05/12/16 08:19 05/12/16 08:19 - Medications Medications: Current Medications Acetaminophen (Tylenol 325mg Tab) 650 mg PO Q6 PRN PRN Reason: Pain, Mild (1-3) Last Admin: 05/07/16 09:41 Dose: 650 mg Bethanechol Chloride (Urecholine) 50 mg PO TID [facility] Last Admin: 05/12/16 08:55 Dose: 50 mg Carbidopa/Levodopa (Rytary Er 48.75 Mg-195 Mg Cap) 1 cap PO TID@0500,1300,2100 [facility] Last Admin: 05/12/16 05:09 Dose: 1 cap Docusate Sodium (Colace) 100 mg PO BID [facility] Last Admin: 05/12/16 08:55 Dose: 100 mg Fluocinonide (Lidex 0.05% Oint) 1 applic TOP BID [facility] Last Admin: 05/12/16 08:55 Dose: 1 applic Magnesium Hydroxide (Milk Of Magnesia) 30 ml PO DAILY PRN PRN Reason: Constipation Last Admin: 05/05/16 09:02 Dose: 30 ml Midodrine (Proamatine) 10 mg PO TID [facility] Last Admin: 05/12/16 08:55 Dose: 10 mg Quetiapine Fumarate (Seroquel) 50 mg PO HS PRN PRN Reason: Agitation Last Admin: 04/23/16 22:31 Dose: 50 mg - Labs Labs: 02/19/16 05:10 02/19/16 05:10 - Respiratory Exam Respiratory Exam: NORMAL BREATHING PATTERN - Cardiovascular Exam Cardiovascular Exam: REGULAR RHYTHM - GI/Abdominal Exam GI & Abdominal Exam: Normal Bowel Sounds Assessment and Plan - Assessment and Plan (Free Text) Assessment: MSA Parkinsons DX Lilia Vieira PT Rytary 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 ID consult appreciated
[2016-05-13] MEDS: CARBIDOPA PO SCH ×3 (04:40→20:51)
[2016-05-13] MEDS: LEVODOPA PO SCH ×3 (04:40→20:51)
[2016-05-13] MEDS: Bethanechol 50 MG TAB PO SCH ×3 (08:42→16:07)
--- NOTE | 2016-05-13 18:16 | CP.PCM.PN ---
Subjective - Date & Time of Evaluation Date of Evaluation: 05/13/16 Time of Evaluation: 22:22 - Subjective Subjective: Resting in chair Objective - Vital Signs/Intake and Output Vital Signs (last 24 hours): Temp Pulse Resp BP Pulse Ox 97.8 F 79 20 123/61 98 05/13/16 16:25 05/13/16 16:25 05/13/16 16:25 05/13/16 16:25 05/13/16 16:25 - Medications Medications: Current Medications Acetaminophen (Tylenol 325mg Tab) 650 mg PO Q6 PRN PRN Reason: Pain, Mild (1-3) Last Admin: 05/13/16 13:16 Dose: 650 mg Bethanechol Chloride (Urecholine) 50 mg PO TID [facility] Last Admin: 05/13/16 16:07 Dose: 50 mg Carbidopa/Levodopa (Rytary Er 48.75 Mg-195 Mg Cap) 1 cap PO TID@0500,1300,2100 [facility] Last Admin: 05/13/16 12:00 Dose: 1 cap Docusate Sodium (Colace) 100 mg PO BID [facility] Last Admin: 05/13/16 16:10 Dose: 100 mg Fluocinonide (Lidex 0.05% Oint) 1 applic TOP BID [facility] Last Admin: 05/13/16 16:09 Dose: 1 applic Magnesium Hydroxide (Milk Of Magnesia) 30 ml PO DAILY PRN PRN Reason: Constipation Last Admin: 05/05/16 09:02 Dose: 30 ml Midodrine (Proamatine) 10 mg PO TID [facility] Last Admin: 05/13/16 16:08 Dose: 10 mg Quetiapine Fumarate (Seroquel) 50 mg PO HS PRN PRN Reason: Agitation Last Admin: 04/23/16 22:31 Dose: 50 mg - Labs Labs: 02/19/16 05:10 02/19/16 05:10 - Respiratory Exam Respiratory Exam: NORMAL BREATHING PATTERN - Cardiovascular Exam Cardiovascular Exam: REGULAR RHYTHM - GI/Abdominal Exam GI & Abdominal Exam: Normal Bowel Sounds Assessment and Plan - Assessment and Plan (Free Text) Assessment: MSA Parkinsons DX Lilia Vieira PT Rytary 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 ID consult appreciated
[2016-05-14] MEDS: CARBIDOPA PO SCH ×3 (04:47→20:54)
[2016-05-14] MEDS: LEVODOPA PO SCH ×3 (04:47→20:54)
[2016-05-14] MEDS: Bethanechol 50 MG TAB PO SCH ×3 (09:28→16:07)
[2016-05-14] MEDS: Magnesium Hydroxide Susp 30 ml UD PO PRN (09:33)
--- NOTE | 2016-05-14 20:26 | CP.PCM.PN ---
Subjective - Date & Time of Evaluation Date of Evaluation: 05/14/16 Time of Evaluation: 02:22 - Subjective Subjective: Doing well Objective - Vital Signs/Intake and Output Vital Signs (last 24 hours): Temp Pulse Resp BP Pulse Ox 97.7 F 67 18 130/77 98 05/14/16 17:28 05/14/16 17:28 05/14/16 17:28 05/14/16 17:28 05/14/16 17:28 - Medications Medications: Current Medications Acetaminophen (Tylenol 325mg Tab) 650 mg PO Q6 PRN PRN Reason: Pain, Mild (1-3) Last Admin: 05/13/16 13:16 Dose: 650 mg Bethanechol Chloride (Urecholine) 50 mg PO TID [facility] Last Admin: 05/14/16 16:07 Dose: 50 mg Carbidopa/Levodopa (Rytary Er 48.75 Mg-195 Mg Cap) 1 cap PO TID@0500,1300,2100 [facility] Last Admin: 05/14/16 12:34 Dose: 1 cap Docusate Sodium (Colace) 100 mg PO BID [facility] Last Admin: 05/14/16 16:06 Dose: 100 mg Fluocinonide (Lidex 0.05% Oint) 1 applic TOP BID [facility] Last Admin: 05/14/16 16:06 Dose: 1 applic Magnesium Hydroxide (Milk Of Magnesia) 30 ml PO DAILY PRN PRN Reason: Constipation Last Admin: 05/14/16 09:33 Dose: 30 ml Midodrine (Proamatine) 10 mg PO TID [facility] Last Admin: 05/14/16 16:05 Dose: 10 mg Quetiapine Fumarate (Seroquel) 50 mg PO HS PRN PRN Reason: Agitation Last Admin: 04/23/16 22:31 Dose: 50 mg - Labs Labs: 02/19/16 05:10 02/19/16 05:10 - Respiratory Exam Respiratory Exam: NORMAL BREATHING PATTERN - Cardiovascular Exam Cardiovascular Exam: REGULAR RHYTHM - GI/Abdominal Exam GI & Abdominal Exam: Normal Bowel Sounds Assessment and Plan - Assessment and Plan (Free Text) Assessment: MSA Parkinsons DX Lilia Vieira PT Rytary 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 ID consult appreciated
[2016-05-15] MEDS: CARBIDOPA PO SCH ×3 (05:30→20:47)
[2016-05-15] MEDS: LEVODOPA PO SCH ×3 (05:30→20:47)
[2016-05-15] MEDS: Bethanechol 50 MG TAB PO SCH ×3 (09:51→16:25)
--- NOTE | 2016-05-15 14:36 | CP.PCM.PN ---
Subjective - Date & Time of Evaluation Date of Evaluation: 05/15/16 Time of Evaluation: 22:22 - Subjective Subjective: Above noted Objective - Vital Signs/Intake and Output Vital Signs (last 24 hours): Temp Pulse Resp BP Pulse Ox 97.1 F L 73 20 128/92 H 96 05/15/16 08:19 05/15/16 08:19 05/15/16 08:19 05/15/16 08:19 05/15/16 08:19 - Medications Medications: Current Medications Acetaminophen (Tylenol 325mg Tab) 650 mg PO Q6 PRN PRN Reason: Pain, Mild (1-3) Last Admin: 05/13/16 13:16 Dose: 650 mg Bethanechol Chloride (Urecholine) 50 mg PO TID [facility] Last Admin: 05/15/16 12:11 Dose: 50 mg Carbidopa/Levodopa (Rytary Er 48.75 Mg-195 Mg Cap) 1 cap PO TID@0500,1300,2100 [facility] Last Admin: 05/15/16 12:11 Dose: 1 cap Docusate Sodium (Colace) 100 mg PO BID [facility] Last Admin: 05/15/16 09:50 Dose: 100 mg Fluocinonide (Lidex 0.05% Oint) 1 applic TOP BID [facility] Last Admin: 05/15/16 09:50 Dose: 1 applic Magnesium Hydroxide (Milk Of Magnesia) 30 ml PO DAILY PRN PRN Reason: Constipation Last Admin: 05/14/16 09:33 Dose: 30 ml Midodrine (Proamatine) 10 mg PO TID [facility] Last Admin: 05/15/16 12:11 Dose: 10 mg Quetiapine Fumarate (Seroquel) 50 mg PO HS PRN PRN Reason: Agitation Last Admin: 04/23/16 22:31 Dose: 50 mg - Labs Labs: 02/19/16 05:10 02/19/16 05:10 - Respiratory Exam Respiratory Exam: NORMAL BREATHING PATTERN - Cardiovascular Exam Cardiovascular Exam: REGULAR RHYTHM - GI/Abdominal Exam GI & Abdominal Exam: Normal Bowel Sounds Assessment and Plan - Assessment and Plan (Free Text) Assessment: MSA Parkinsons DX Lilia Vieira PT Rytary 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 ID consult appreciated
[2016-05-16] MEDS: CARBIDOPA PO SCH ×3 (05:57→20:27)
[2016-05-16] MEDS: LEVODOPA PO SCH ×3 (05:57→20:27)
[2016-05-16] MEDS: Bethanechol 50 MG TAB PO SCH ×3 (09:32→17:20)
--- NOTE | 2016-05-16 20:23 | CP.PCM.PN ---
Subjective - Date & Time of Evaluation Date of Evaluation: 05/16/16 Time of Evaluation: 22:22 - Subjective Subjective: Sleeping in bed Objective - Vital Signs/Intake and Output Vital Signs (last 24 hours): Temp Pulse Resp BP Pulse Ox 97.2 F L 74 20 129/50 L 98 05/16/16 20:11 05/16/16 20:11 05/16/16 20:11 05/16/16 20:11 05/16/16 20:11 - Medications Medications: Current Medications Acetaminophen (Tylenol 325mg Tab) 650 mg PO Q6 PRN PRN Reason: Pain, Mild (1-3) Last Admin: 05/13/16 13:16 Dose: 650 mg Bethanechol Chloride (Urecholine) 50 mg PO TID [facility] Last Admin: 05/16/16 17:20 Dose: 50 mg Carbidopa/Levodopa (Rytary Er 48.75 Mg-195 Mg Cap) 1 cap PO TID@0500,1300,2100 [facility] Last Admin: 05/16/16 13:21 Dose: 1 cap Docusate Sodium (Colace) 100 mg PO BID [facility] Last Admin: 05/16/16 17:20 Dose: 100 mg Fluocinonide (Lidex 0.05% Oint) 1 applic TOP BID [facility] Last Admin: 05/16/16 17:20 Dose: 1 applic Magnesium Hydroxide (Milk Of Magnesia) 30 ml PO DAILY PRN PRN Reason: Constipation Last Admin: 05/14/16 09:33 Dose: 30 ml Midodrine (Proamatine) 10 mg PO TID [facility] Last Admin: 05/16/16 17:20 Dose: 10 mg Quetiapine Fumarate (Seroquel) 50 mg PO HS PRN PRN Reason: Agitation Last Admin: 04/23/16 22:31 Dose: 50 mg - Labs Labs: 02/19/16 05:10 02/19/16 05:10 - Respiratory Exam Respiratory Exam: NORMAL BREATHING PATTERN - Cardiovascular Exam Cardiovascular Exam: REGULAR RHYTHM - GI/Abdominal Exam GI & Abdominal Exam: Normal Bowel Sounds Assessment and Plan - Assessment and Plan (Free Text) Assessment: MSA Parkinsons DX Lilia Vieira PT Rytary 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 ID consult appreciated
[2016-05-17] MEDS: LEVODOPA PO SCH ×3 (06:00→20:45)
[2016-05-17] MEDS: CARBIDOPA PO SCH ×3 (06:00→20:45)
[2016-05-17] MEDS: Bethanechol 50 MG TAB PO SCH ×3 (09:38→17:35)
--- NOTE | 2016-05-17 18:21 | CP.PCM.PN ---
Subjective - Date & Time of Evaluation Date of Evaluation: 05/17/16 Time of Evaluation: 22:22 - Subjective Subjective: Above noted Objective - Vital Signs/Intake and Output Vital Signs (last 24 hours): Temp Pulse Resp BP Pulse Ox 97.3 F L 75 20 159/78 H 97 05/17/16 16:16 05/17/16 16:16 05/17/16 16:16 05/17/16 16:16 05/17/16 16:16 - Medications Medications: Current Medications Acetaminophen (Tylenol 325mg Tab) 650 mg PO Q6 PRN PRN Reason: Pain, Mild (1-3) Last Admin: 05/13/16 13:16 Dose: 650 mg Bethanechol Chloride (Urecholine) 50 mg PO TID [facility] Last Admin: 05/17/16 17:35 Dose: 50 mg Carbidopa/Levodopa (Rytary Er 48.75 Mg-195 Mg Cap) 1 cap PO TID@0500,1300,2100 [facility] Last Admin: 05/17/16 13:02 Dose: 1 cap Docusate Sodium (Colace) 100 mg PO BID [facility] Last Admin: 05/17/16 17:34 Dose: 100 mg Fluocinonide (Lidex 0.05% Oint) 1 applic TOP BID [facility] Last Admin: 05/17/16 17:34 Dose: 1 applic Magnesium Hydroxide (Milk Of Magnesia) 30 ml PO DAILY PRN PRN Reason: Constipation Last Admin: 05/14/16 09:33 Dose: 30 ml Midodrine (Proamatine) 10 mg PO TID [facility] Last Admin: 05/17/16 17:35 Dose: 10 mg Quetiapine Fumarate (Seroquel) 50 mg PO HS PRN PRN Reason: Agitation Last Admin: 04/23/16 22:31 Dose: 50 mg - Labs Labs: 02/19/16 05:10 02/19/16 05:10 - Respiratory Exam Respiratory Exam: NORMAL BREATHING PATTERN - Cardiovascular Exam Cardiovascular Exam: REGULAR RHYTHM - GI/Abdominal Exam GI & Abdominal Exam: Normal Bowel Sounds Assessment and Plan - Assessment and Plan (Free Text) Assessment: MSA Parkinsons DX Lilia Vieira PT Rytary 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 ID consult appreciated
[2016-05-18] MEDS: LEVODOPA PO SCH ×3 (05:49→20:26)
[2016-05-18] MEDS: CARBIDOPA PO SCH ×3 (05:49→20:26)
[2016-05-18] MEDS: Bethanechol 50 MG TAB PO SCH ×3 (09:50→16:41)
[2016-05-19] MEDS: CARBIDOPA PO SCH ×3 (04:15→20:23)
[2016-05-19] MEDS: LEVODOPA PO SCH ×3 (04:15→20:23)
[2016-05-19] MEDS: Bethanechol 50 MG TAB PO SCH ×3 (08:28→17:11)
--- NOTE | 2016-05-19 18:55 | CP.PCM.PN ---
Subjective - Date & Time of Evaluation Date of Evaluation: 05/19/16 Time of Evaluation: 22:22 - Subjective Subjective: Resting in bed Objective - Vital Signs/Intake and Output Vital Signs (last 24 hours): Temp Pulse Resp BP Pulse Ox 97.2 F L 60 20 140/59 L 100 05/19/16 16:28 05/19/16 16:28 05/19/16 16:28 05/19/16 16:28 05/19/16 16:28 - Medications Medications: Current Medications Acetaminophen (Tylenol 325mg Tab) 650 mg PO Q6 PRN PRN Reason: Pain, Mild (1-3) Last Admin: 05/19/16 14:17 Dose: 650 mg Bethanechol Chloride (Urecholine) 50 mg PO TID [facility] Last Admin: 05/19/16 17:11 Dose: 50 mg Carbidopa/Levodopa (Rytary Er 48.75 Mg-195 Mg Cap) 1 cap PO TID@0500,1300,2100 [facility] Last Admin: 05/19/16 12:13 Dose: 1 cap Docusate Sodium (Colace) 100 mg PO BID [facility] Last Admin: 05/19/16 17:11 Dose: 100 mg Fluocinonide (Lidex 0.05% Oint) 1 applic TOP BID [facility] Last Admin: 05/19/16 17:09 Dose: 1 applic Magnesium Hydroxide (Milk Of Magnesia) 30 ml PO DAILY PRN PRN Reason: Constipation Last Admin: 05/14/16 09:33 Dose: 30 ml Midodrine (Proamatine) 10 mg PO TID [facility] Last Admin: 05/19/16 17:10 Dose: 10 mg Quetiapine Fumarate (Seroquel) 50 mg PO HS PRN PRN Reason: Agitation Last Admin: 04/23/16 22:31 Dose: 50 mg - Labs Labs: 02/19/16 05:10 02/19/16 05:10 - Respiratory Exam Respiratory Exam: NORMAL BREATHING PATTERN - Cardiovascular Exam Cardiovascular Exam: REGULAR RHYTHM - GI/Abdominal Exam GI & Abdominal Exam: Normal Bowel Sounds Assessment and Plan - Assessment and Plan (Free Text) Assessment: MSA Parkinsons DX Lilia Vieira PT Rytary 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 ID consult appreciated
[2016-05-20] MEDS: LEVODOPA PO SCH ×3 (05:36→21:17)
[2016-05-20] MEDS: CARBIDOPA PO SCH ×3 (05:36→21:17)
[2016-05-20] MEDS: Bethanechol 50 MG TAB PO SCH ×3 (08:39→17:35)
--- NOTE | 2016-05-20 18:38 | CP.PCM.PN ---
Subjective - Date & Time of Evaluation Date of Evaluation: 05/20/16 Time of Evaluation: 22:22 - Subjective Subjective: Papers completed Objective - Vital Signs/Intake and Output Vital Signs (last 24 hours): Temp Pulse Resp BP Pulse Ox 97 F L 63 20 132/55 L 97 05/20/16 16:25 05/20/16 16:25 05/20/16 16:25 05/20/16 16:25 05/20/16 16:25 - Medications Medications: Current Medications Acetaminophen (Tylenol 325mg Tab) 650 mg PO Q6 PRN PRN Reason: Pain, Mild (1-3) Last Admin: 05/19/16 14:17 Dose: 650 mg Bethanechol Chloride (Urecholine) 50 mg PO TID [facility] Last Admin: 05/20/16 17:35 Dose: 50 mg Carbidopa/Levodopa (Rytary Er 48.75 Mg-195 Mg Cap) 1 cap PO TID@0500,1300,2100 [facility] Last Admin: 05/20/16 12:55 Dose: 1 cap Docusate Sodium (Colace) 100 mg PO BID [facility] Last Admin: 05/20/16 17:35 Dose: 100 mg Fluocinonide (Lidex 0.05% Oint) 1 applic TOP BID [facility] Last Admin: 05/20/16 08:39 Dose: 1 applic Magnesium Hydroxide (Milk Of Magnesia) 30 ml PO DAILY PRN PRN Reason: Constipation Last Admin: 05/14/16 09:33 Dose: 30 ml Midodrine (Proamatine) 10 mg PO TID [facility] Last Admin: 05/20/16 17:35 Dose: 10 mg Quetiapine Fumarate (Seroquel) 50 mg PO HS PRN PRN Reason: Agitation Last Admin: 04/23/16 22:31 Dose: 50 mg - Labs Labs: 02/19/16 05:10 02/19/16 05:10 - Respiratory Exam Respiratory Exam: NORMAL BREATHING PATTERN - Cardiovascular Exam Cardiovascular Exam: REGULAR RHYTHM - GI/Abdominal Exam GI & Abdominal Exam: Normal Bowel Sounds Assessment and Plan - Assessment and Plan (Free Text) Assessment: MSA Parkinsons DX Lilia Vieira PT Rytary 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 ID consult appreciated
[2016-05-21] MEDS: LEVODOPA PO SCH ×3 (05:07→20:49)
[2016-05-21] MEDS: CARBIDOPA PO SCH ×3 (05:07→20:49)
[2016-05-21] MEDS: Bethanechol 50 MG TAB PO SCH ×3 (08:31→17:20)
--- NOTE | 2016-05-21 19:06 | CP.PCM.PN ---
Subjective - Date & Time of Evaluation Date of Evaluation: 05/21/16 Time of Evaluation: 22:22 - Subjective Subjective: Resting in chair Objective - Vital Signs/Intake and Output Vital Signs (last 24 hours): Temp Pulse Resp BP Pulse Ox 97.5 F L 75 20 151/77 H 98 05/21/16 16:48 05/21/16 16:48 05/21/16 16:48 05/21/16 16:48 05/21/16 16:48 - Medications Medications: Current Medications Acetaminophen (Tylenol 325mg Tab) 650 mg PO Q6 PRN PRN Reason: Pain, Mild (1-3) Last Admin: 05/19/16 14:17 Dose: 650 mg Bethanechol Chloride (Urecholine) 50 mg PO TID [facility] Last Admin: 05/21/16 17:20 Dose: 50 mg Carbidopa/Levodopa (Rytary Er 48.75 Mg-195 Mg Cap) 1 cap PO TID@0500,1300,2100 [facility] Last Admin: 05/21/16 13:16 Dose: 1 cap Docusate Sodium (Colace) 100 mg PO BID [facility] Last Admin: 05/21/16 17:20 Dose: 100 mg Fluocinonide (Lidex 0.05% Oint) 1 applic TOP BID [facility] Last Admin: 05/21/16 17:20 Dose: 1 applic Magnesium Hydroxide (Milk Of Magnesia) 30 ml PO DAILY PRN PRN Reason: Constipation Last Admin: 05/14/16 09:33 Dose: 30 ml Midodrine (Proamatine) 10 mg PO TID [facility] Last Admin: 05/21/16 17:20 Dose: 10 mg Quetiapine Fumarate (Seroquel) 50 mg PO HS PRN PRN Reason: Agitation Last Admin: 05/20/16 21:17 Dose: 50 mg - Labs Labs: 02/19/16 05:10 02/19/16 05:10 - Respiratory Exam Respiratory Exam: NORMAL BREATHING PATTERN - Cardiovascular Exam Cardiovascular Exam: REGULAR RHYTHM - GI/Abdominal Exam GI & Abdominal Exam: Normal Bowel Sounds Assessment and Plan - Assessment and Plan (Free Text) Assessment: MSA Parkinsons DX Lilia Vieira PT Rytary 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
[2016-05-22] MEDS: CARBIDOPA PO SCH ×3 (05:01→21:41)
[2016-05-22] MEDS: LEVODOPA PO SCH ×3 (05:01→21:41)
[2016-05-22] MEDS: Bethanechol 50 MG TAB PO SCH ×3 (09:14→16:55)
--- NOTE | 2016-05-22 18:30 | CP.PCM.PN ---
Subjective - Date & Time of Evaluation Date of Evaluation: 05/22/16 Time of Evaluation: 22:22 - Subjective Subjective: Forms completed Objective - Vital Signs/Intake and Output Vital Signs (last 24 hours): Temp Pulse Resp BP Pulse Ox 97.7 F 74 20 114/58 L 99 05/22/16 17:00 05/22/16 17:00 05/22/16 17:00 05/22/16 17:00 05/22/16 17:00 - Medications Medications: Current Medications Acetaminophen (Tylenol 325mg Tab) 650 mg PO Q6 PRN PRN Reason: Pain, Mild (1-3) Last Admin: 05/19/16 14:17 Dose: 650 mg Bethanechol Chloride (Urecholine) 50 mg PO TID [facility] Last Admin: 05/22/16 16:55 Dose: 50 mg Carbidopa/Levodopa (Rytary Er 48.75 Mg-195 Mg Cap) 1 cap PO TID@0500,1300,2100 [facility] Last Admin: 05/22/16 13:14 Dose: 1 cap Docusate Sodium (Colace) 100 mg PO BID [facility] Last Admin: 05/22/16 16:53 Dose: 100 mg Fluocinonide (Lidex 0.05% Oint) 1 applic TOP BID [facility] Last Admin: 05/22/16 16:53 Dose: 1 applic Magnesium Hydroxide (Milk Of Magnesia) 30 ml PO DAILY PRN PRN Reason: Constipation Last Admin: 05/14/16 09:33 Dose: 30 ml Midodrine (Proamatine) 10 mg PO TID [facility] Last Admin: 05/22/16 16:54 Dose: 10 mg Quetiapine Fumarate (Seroquel) 50 mg PO HS PRN PRN Reason: Agitation Last Admin: 05/20/16 21:17 Dose: 50 mg - Labs Labs: 02/19/16 05:10 02/19/16 05:10 - Respiratory Exam Respiratory Exam: NORMAL BREATHING PATTERN - Cardiovascular Exam Cardiovascular Exam: REGULAR RHYTHM - GI/Abdominal Exam GI & Abdominal Exam: Normal Bowel Sounds Assessment and Plan - Assessment and Plan (Free Text) Assessment: MSA Parkinsons DX Lilia Vieira PT Rytary 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
[2016-05-23] MEDS: CARBIDOPA PO SCH ×3 (07:00→20:59)
[2016-05-23] MEDS: LEVODOPA PO SCH ×3 (07:00→20:59)
--- NOTE | 2016-05-23 09:39 | CP.PCM.PN ---
Subjective - Date & Time of Evaluation Date of Evaluation: 05/23/16 Time of Evaluation: 08:40 - Subjective Subjective: psychiatry follow up cc: my niece isn't calling people back hpi: met with pt. he is sitting calmly with tech who is helping him eat his meal. pt is aware he is here for his parkinsons disorder and states he cannot walk nor can he care for himself. he states he needs someone to help him with his finances. he denies any suicidal thoughts. mse: alert, oriented to place, circumstances, self and time. his mood is "frustrated" affect is calm. he denies si/hi. denies a/v hallucinations. fair i/ j regarding his situation. assessment: pt has capacity to participate in medical decisions he is seeking a guardian for his financial/placement decisions pt needs help with adls and cannot live independently Objective - Vital Signs/Intake and Output Vital Signs (last 24 hours): Temp Pulse Resp BP Pulse Ox 97.3 F L 82 20 130/68 99 05/23/16 09:11 05/23/16 09:11 05/23/16 09:11 05/23/16 09:11 05/23/16 09:11 - Medications Medications: Current Medications Acetaminophen (Tylenol 325mg Tab) 650 mg PO Q6 PRN PRN Reason: Pain, Mild (1-3) Last Admin: 05/19/16 14:17 Dose: 650 mg Bethanechol Chloride (Urecholine) 50 mg PO TID [facility] Last Admin: 05/22/16 16:55 Dose: 50 mg Carbidopa/Levodopa (Rytary Er 48.75 Mg-195 Mg Cap) 1 cap PO TID@0500,1300,2100 [facility] Last Admin: 05/23/16 07:00 Dose: 1 cap Docusate Sodium (Colace) 100 mg PO BID [facility] Last Admin: 05/22/16 16:53 Dose: 100 mg Fluocinonide (Lidex 0.05% Oint) 1 applic TOP BID [facility] Last Admin: 05/22/16 16:53 Dose: 1 applic Magnesium Hydroxide (Milk Of Magnesia) 30 ml PO DAILY PRN PRN Reason: Constipation Last Admin: 05/14/16 09:33 Dose: 30 ml Midodrine (Proamatine) 10 mg PO TID [facility] Last Admin: 05/22/16 16:54 Dose: 10 mg Quetiapine Fumarate (Seroquel) 50 mg PO HS PRN PRN Reason: Agitation Last Admin: 05/20/16 21:17 Dose: 50 mg - Labs Labs: 02/19/16 05:10 02/19/16 05:10
[2016-05-23] MEDS: Bethanechol 50 MG TAB PO SCH ×3 (10:21→16:18)
--- NOTE | 2016-05-23 20:31 | CP.PCM.PN ---
Subjective - Date & Time of Evaluation Date of Evaluation: 05/23/16 Time of Evaluation: 22:22 - Subjective Subjective: Psychiatry note appreciated Objective - Vital Signs/Intake and Output Vital Signs (last 24 hours): Temp Pulse Resp BP Pulse Ox 98.1 F 74 20 128/72 97 05/23/16 16:00 05/23/16 16:00 05/23/16 16:00 05/23/16 16:00 05/23/16 16:00 - Medications Medications: Current Medications Acetaminophen (Tylenol 325mg Tab) 650 mg PO Q6 PRN PRN Reason: Pain, Mild (1-3) Last Admin: 05/19/16 14:17 Dose: 650 mg Bethanechol Chloride (Urecholine) 50 mg PO TID [facility] Last Admin: 05/23/16 16:18 Dose: 50 mg Carbidopa/Levodopa (Rytary Er 48.75 Mg-195 Mg Cap) 1 cap PO TID@0500,1300,2100 [facility] Last Admin: 05/23/16 13:29 Dose: 1 cap Docusate Sodium (Colace) 100 mg PO BID [facility] Last Admin: 05/23/16 16:16 Dose: 100 mg Fluocinonide (Lidex 0.05% Oint) 1 applic TOP BID [facility] Last Admin: 05/23/16 16:17 Dose: 1 applic Magnesium Hydroxide (Milk Of Magnesia) 30 ml PO DAILY PRN PRN Reason: Constipation Last Admin: 05/14/16 09:33 Dose: 30 ml Midodrine (Proamatine) 10 mg PO TID [facility] Last Admin: 05/23/16 16:17 Dose: 10 mg Quetiapine Fumarate (Seroquel) 50 mg PO HS PRN PRN Reason: Agitation Last Admin: 05/20/16 21:17 Dose: 50 mg - Labs Labs: 02/19/16 05:10 02/19/16 05:10 - Respiratory Exam Respiratory Exam: NORMAL BREATHING PATTERN - Cardiovascular Exam Cardiovascular Exam: REGULAR RHYTHM - GI/Abdominal Exam GI & Abdominal Exam: Normal Bowel Sounds Assessment and Plan - Assessment and Plan (Free Text) Assessment: MSA Parkinsons DX Lilia Vieira PT Rytary 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
[2016-05-24] MEDS: LEVODOPA PO SCH ×3 (05:54→20:52)
[2016-05-24] MEDS: CARBIDOPA PO SCH ×3 (05:54→20:52)
[2016-05-24] MEDS: Bethanechol 50 MG TAB PO SCH ×3 (09:22→18:21)
--- NOTE | 2016-05-24 17:28 | CP.PCM.PN ---
Subjective - Date & Time of Evaluation Date of Evaluation: 05/24/16 Time of Evaluation: 22:22 - Subjective Subjective: sleeping Objective - Vital Signs/Intake and Output Vital Signs (last 24 hours): Temp Pulse Resp BP Pulse Ox 97 F L 77 18 116/57 L 100 05/24/16 16:49 05/24/16 16:49 05/24/16 16:49 05/24/16 16:49 05/24/16 16:49 - Medications Medications: Current Medications Acetaminophen (Tylenol 325mg Tab) 650 mg PO Q6 PRN PRN Reason: Pain, Mild (1-3) Last Admin: 05/24/16 09:24 Dose: 650 mg Bethanechol Chloride (Urecholine) 50 mg PO TID [facility] Last Admin: 05/24/16 12:08 Dose: 50 mg Carbidopa/Levodopa (Rytary Er 48.75 Mg-195 Mg Cap) 1 cap PO TID@0500,1300,2100 [facility] Last Admin: 05/24/16 12:08 Dose: 1 cap Docusate Sodium (Colace) 100 mg PO BID [facility] Last Admin: 05/24/16 09:21 Dose: 100 mg Fluocinonide (Lidex 0.05% Oint) 1 applic TOP BID [facility] Last Admin: 05/24/16 09:21 Dose: 1 applic Magnesium Hydroxide (Milk Of Magnesia) 30 ml PO DAILY PRN PRN Reason: Constipation Last Admin: 05/14/16 09:33 Dose: 30 ml Midodrine (Proamatine) 10 mg PO TID [facility] Last Admin: 05/24/16 12:08 Dose: 10 mg Quetiapine Fumarate (Seroquel) 50 mg PO HS PRN PRN Reason: Agitation Last Admin: 05/20/16 21:17 Dose: 50 mg - Labs Labs: 02/19/16 05:10 02/19/16 05:10 - Respiratory Exam Respiratory Exam: NORMAL BREATHING PATTERN - Cardiovascular Exam Cardiovascular Exam: REGULAR RHYTHM - GI/Abdominal Exam GI & Abdominal Exam: Normal Bowel Sounds Assessment and Plan - Assessment and Plan (Free Text) Assessment: MSA Parkinsons DX Lilia Vieira PT Rytary 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
[2016-05-25] MEDS: LEVODOPA PO SCH ×3 (06:03→20:52)
[2016-05-25] MEDS: CARBIDOPA PO SCH ×3 (06:03→20:52)
[2016-05-25] MEDS: Bethanechol 50 MG TAB PO SCH ×3 (09:08→17:33)
[2016-05-26] MEDS: LEVODOPA PO SCH ×3 (05:04→20:26)
[2016-05-26] MEDS: CARBIDOPA PO SCH ×3 (05:04→20:26)
[2016-05-26] MEDS: Bethanechol 50 MG TAB PO SCH ×3 (09:01→16:27)
[2016-05-27] MEDS: LEVODOPA PO SCH ×3 (04:57→20:02)
[2016-05-27] MEDS: CARBIDOPA PO SCH ×3 (04:57→20:02)
[2016-05-27] MEDS: Bethanechol 50 MG TAB PO SCH ×3 (09:24→17:21)
--- NOTE | 2016-05-27 19:13 | CP.PCM.PN ---
Subjective - Date & Time of Evaluation Date of Evaluation: 05/27/16 Time of Evaluation: 22:22 - Subjective Subjective: Above noted Objective - Vital Signs/Intake and Output Vital Signs (last 24 hours): Temp Pulse Resp BP Pulse Ox 96.6 F L 69 20 139/95 H 98 05/27/16 16:22 05/27/16 17:00 05/27/16 16:22 05/27/16 17:00 05/27/16 16:22 - Medications Medications: Current Medications Acetaminophen (Tylenol 325mg Tab) 650 mg PO Q6 PRN PRN Reason: Pain, Mild (1-3) Last Admin: 05/24/16 09:24 Dose: 650 mg Bethanechol Chloride (Urecholine) 50 mg PO TID [facility] Last Admin: 05/27/16 17:21 Dose: 50 mg Carbidopa/Levodopa (Rytary Er 48.75 Mg-195 Mg Cap) 1 cap PO TID@0500,1300,2100 [facility] Last Admin: 05/27/16 12:15 Dose: 1 cap Docusate Sodium (Colace) 100 mg PO BID [facility] Last Admin: 05/27/16 17:22 Dose: 100 mg Fluocinonide (Lidex 0.05% Oint) 1 applic TOP BID [facility] Last Admin: 05/27/16 17:22 Dose: 1 applic Magnesium Hydroxide (Milk Of Magnesia) 30 ml PO DAILY PRN PRN Reason: Constipation Last Admin: 05/14/16 09:33 Dose: 30 ml Midodrine (Proamatine) 10 mg PO TID [facility] Last Admin: 05/27/16 17:21 Dose: 10 mg Quetiapine Fumarate (Seroquel) 50 mg PO HS PRN PRN Reason: Agitation Last Admin: 05/20/16 21:17 Dose: 50 mg - Labs Labs: 02/19/16 05:10 02/19/16 05:10 - Respiratory Exam Respiratory Exam: NORMAL BREATHING PATTERN - Cardiovascular Exam Cardiovascular Exam: REGULAR RHYTHM - GI/Abdominal Exam GI & Abdominal Exam: Normal Bowel Sounds Assessment and Plan - Assessment and Plan (Free Text) Assessment: MSA Parkinsons DX Lilia Vieira PT Rytary 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
[2016-05-28] MEDS: CARBIDOPA PO SCH ×3 (06:11→20:24)
[2016-05-28] MEDS: LEVODOPA PO SCH ×3 (06:11→20:24)
[2016-05-28] MEDS: Bethanechol 50 MG TAB PO SCH ×3 (09:03→16:48)
--- NOTE | 2016-05-28 20:06 | CP.PCM.PN ---
Subjective - Date & Time of Evaluation Date of Evaluation: 05/28/16 Time of Evaluation: 22:22 - Subjective Subjective: Above noted Objective - Vital Signs/Intake and Output Vital Signs (last 24 hours): Temp Pulse Resp BP Pulse Ox 97.5 F L 79 20 126/80 98 05/28/16 17:09 05/28/16 17:09 05/28/16 17:09 05/28/16 17:09 05/28/16 17:09 - Medications Medications: Current Medications Acetaminophen (Tylenol 325mg Tab) 650 mg PO Q6 PRN PRN Reason: Pain, Mild (1-3) Last Admin: 05/24/16 09:24 Dose: 650 mg Bethanechol Chloride (Urecholine) 50 mg PO TID [facility] Last Admin: 05/28/16 16:48 Dose: 50 mg Carbidopa/Levodopa (Rytary Er 48.75 Mg-195 Mg Cap) 1 cap PO TID@0500,1300,2100 [facility] Last Admin: 05/28/16 12:44 Dose: 1 cap Docusate Sodium (Colace) 100 mg PO BID [facility] Last Admin: 05/28/16 16:47 Dose: 100 mg Fluocinonide (Lidex 0.05% Oint) 1 applic TOP BID [facility] Last Admin: 05/28/16 16:48 Dose: 1 applic Magnesium Hydroxide (Milk Of Magnesia) 30 ml PO DAILY PRN PRN Reason: Constipation Last Admin: 05/14/16 09:33 Dose: 30 ml Midodrine (Proamatine) 10 mg PO TID [facility] Last Admin: 05/28/16 16:47 Dose: 10 mg Quetiapine Fumarate (Seroquel) 50 mg PO HS PRN PRN Reason: Agitation Last Admin: 05/20/16 21:17 Dose: 50 mg - Labs Labs: 02/19/16 05:10 02/19/16 05:10 - Respiratory Exam Respiratory Exam: NORMAL BREATHING PATTERN - Cardiovascular Exam Cardiovascular Exam: REGULAR RHYTHM - GI/Abdominal Exam GI & Abdominal Exam: Normal Bowel Sounds Assessment and Plan - Assessment and Plan (Free Text) Assessment: MSA Parkinsons DX Lilia Vieira PT Rytary 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
[2016-05-29] MEDS: CARBIDOPA PO SCH ×3 (05:58→21:22)
[2016-05-29] MEDS: LEVODOPA PO SCH ×3 (05:58→21:22)
[2016-05-29] MEDS: Bethanechol 50 MG TAB PO SCH ×3 (09:00→17:39)
--- NOTE | 2016-05-29 19:19 | CP.PCM.PN ---
Subjective - Date & Time of Evaluation Date of Evaluation: 05/29/16 Time of Evaluation: 22:22 - Subjective Subjective: Doing well Objective - Vital Signs/Intake and Output Vital Signs (last 24 hours): Temp Pulse Resp BP Pulse Ox 97.5 F L 68 20 137/80 100 05/29/16 16:36 05/29/16 16:36 05/29/16 16:36 05/29/16 16:36 05/29/16 16:36 - Medications Medications: Current Medications Acetaminophen (Tylenol 325mg Tab) 650 mg PO Q6 PRN PRN Reason: Pain, Mild (1-3) Last Admin: 05/24/16 09:24 Dose: 650 mg Bethanechol Chloride (Urecholine) 50 mg PO TID [facility] Last Admin: 05/29/16 17:39 Dose: 50 mg Carbidopa/Levodopa (Rytary Er 48.75 Mg-195 Mg Cap) 1 cap PO TID@0500,1300,2100 [facility] Last Admin: 05/29/16 12:38 Dose: 1 cap Docusate Sodium (Colace) 100 mg PO BID [facility] Last Admin: 05/29/16 17:39 Dose: 100 mg Fluocinonide (Lidex 0.05% Oint) 1 applic TOP BID [facility] Last Admin: 05/29/16 17:39 Dose: 1 applic Magnesium Hydroxide (Milk Of Magnesia) 30 ml PO DAILY PRN PRN Reason: Constipation Last Admin: 05/14/16 09:33 Dose: 30 ml Midodrine (Proamatine) 10 mg PO TID [facility] Last Admin: 05/29/16 17:39 Dose: 10 mg Quetiapine Fumarate (Seroquel) 50 mg PO HS PRN PRN Reason: Agitation Last Admin: 05/20/16 21:17 Dose: 50 mg - Labs Labs: 02/19/16 05:10 02/19/16 05:10 - Respiratory Exam Respiratory Exam: NORMAL BREATHING PATTERN - Cardiovascular Exam Cardiovascular Exam: REGULAR RHYTHM - GI/Abdominal Exam GI & Abdominal Exam: Normal Bowel Sounds Assessment and Plan - Assessment and Plan (Free Text) Assessment: MSA Parkinsons DX Lilia Vieira PT Rytary 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
[2016-05-30] MEDS: LEVODOPA PO SCH ×3 (05:40→21:19)
[2016-05-30] MEDS: CARBIDOPA PO SCH ×3 (05:40→21:19)
[2016-05-30] MEDS: Bethanechol 50 MG TAB PO SCH ×3 (09:21→17:40)
--- NOTE | 2016-05-30 21:15 | CP.PCM.PN ---
Subjective - Date & Time of Evaluation Date of Evaluation: 05/30/16 Time of Evaluation: 22:22 - Subjective Subjective: Above noted Objective - Vital Signs/Intake and Output Vital Signs (last 24 hours): Temp Pulse Resp BP Pulse Ox 97 F L 71 20 134/68 100 05/30/16 16:13 05/30/16 16:13 05/30/16 16:13 05/30/16 16:13 05/30/16 16:13 - Medications Medications: Current Medications Acetaminophen (Tylenol 325mg Tab) 650 mg PO Q6 PRN PRN Reason: Pain, Mild (1-3) Last Admin: 05/30/16 09:23 Dose: 650 mg Bethanechol Chloride (Urecholine) 50 mg PO TID [facility] Last Admin: 05/30/16 17:40 Dose: 50 mg Carbidopa/Levodopa (Rytary Er 48.75 Mg-195 Mg Cap) 1 cap PO TID@0500,1300,2100 [facility] Last Admin: 05/30/16 15:25 Dose: 1 cap Docusate Sodium (Colace) 100 mg PO BID [facility] Last Admin: 05/30/16 17:39 Dose: 100 mg Fluocinonide (Lidex 0.05% Oint) 1 applic TOP BID [facility] Last Admin: 05/30/16 17:39 Dose: 1 applic Magnesium Hydroxide (Milk Of Magnesia) 30 ml PO DAILY PRN PRN Reason: Constipation Last Admin: 05/14/16 09:33 Dose: 30 ml Midodrine (Proamatine) 10 mg PO TID [facility] Last Admin: 05/30/16 17:40 Dose: 10 mg Quetiapine Fumarate (Seroquel) 50 mg PO HS PRN PRN Reason: Agitation Last Admin: 05/20/16 21:17 Dose: 50 mg - Labs Labs: 02/19/16 05:10 02/19/16 05:10 - Respiratory Exam Respiratory Exam: NORMAL BREATHING PATTERN - Cardiovascular Exam Cardiovascular Exam: REGULAR RHYTHM - GI/Abdominal Exam GI & Abdominal Exam: Normal Bowel Sounds Assessment and Plan - Assessment and Plan (Free Text) Assessment: MSA Parkinsons DX Lilia Vieira PT Rytary 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
[2016-05-31] MEDS: CARBIDOPA PO SCH ×3 (05:56→20:47)
[2016-05-31] MEDS: LEVODOPA PO SCH ×3 (05:56→20:47)
[2016-05-31] MEDS: Bethanechol 50 MG TAB PO SCH ×3 (09:58→20:47)
--- NOTE | 2016-05-31 17:13 | CP.PCM.PN ---
Subjective - Date & Time of Evaluation Date of Evaluation: 05/31/16 Time of Evaluation: 22:22 - Subjective Subjective: Above noted Objective - Vital Signs/Intake and Output Vital Signs (last 24 hours): Temp Pulse Resp BP Pulse Ox 97.3 F L 84 20 131/58 L 99 05/31/16 15:55 05/31/16 15:55 05/31/16 15:55 05/31/16 15:55 05/31/16 15:55 - Medications Medications: Current Medications Acetaminophen (Tylenol 325mg Tab) 650 mg PO Q6 PRN PRN Reason: Pain, Mild (1-3) Last Admin: 05/31/16 10:05 Dose: 650 mg Bethanechol Chloride (Urecholine) 50 mg PO TID [facility] Last Admin: 05/31/16 13:52 Dose: 50 mg Carbidopa/Levodopa (Rytary Er 48.75 Mg-195 Mg Cap) 1 cap PO TID@0500,1300,2100 [facility] Last Admin: 05/31/16 13:52 Dose: 1 cap Docusate Sodium (Colace) 100 mg PO BID [facility] Last Admin: 05/31/16 09:57 Dose: 100 mg Fluocinonide (Lidex 0.05% Oint) 1 applic TOP BID [facility] Last Admin: 05/31/16 09:57 Dose: 1 applic Magnesium Hydroxide (Milk Of Magnesia) 30 ml PO DAILY PRN PRN Reason: Constipation Last Admin: 05/14/16 09:33 Dose: 30 ml Midodrine (Proamatine) 10 mg PO TID [facility] Last Admin: 05/31/16 13:52 Dose: 10 mg Quetiapine Fumarate (Seroquel) 50 mg PO HS PRN PRN Reason: Agitation Last Admin: 05/20/16 21:17 Dose: 50 mg - Labs Labs: 02/19/16 05:10 02/19/16 05:10 - Respiratory Exam Respiratory Exam: NORMAL BREATHING PATTERN - Cardiovascular Exam Cardiovascular Exam: REGULAR RHYTHM - GI/Abdominal Exam GI & Abdominal Exam: Normal Bowel Sounds Assessment and Plan - Assessment and Plan (Free Text) Assessment: MSA Parkinsons DX Lilia Vieira PT Rytary 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
[2016-06-01] MEDS: CARBIDOPA PO SCH ×3 (05:40→21:02)
[2016-06-01] MEDS: LEVODOPA PO SCH ×3 (05:40→21:02)
[2016-06-01] MEDS: Bethanechol 50 MG TAB PO SCH ×3 (08:27→16:31)
--- NOTE | 2016-06-01 23:23 | CP.PCM.PN ---
Subjective - Date & Time of Evaluation Date of Evaluation: 06/01/16 Time of Evaluation: 22:22 - Subjective Subjective: Doing well Objective - Vital Signs/Intake and Output Vital Signs (last 24 hours): Temp Pulse Resp BP Pulse Ox 98 F 91 H 20 144/83 97 06/01/16 16:27 06/01/16 16:27 06/01/16 16:27 06/01/16 16:27 06/01/16 16:27 - Medications Medications: Current Medications Acetaminophen (Tylenol 325mg Tab) 650 mg PO Q6 PRN PRN Reason: Pain, Mild (1-3) Last Admin: 06/01/16 21:30 Dose: 650 mg Bethanechol Chloride (Urecholine) 50 mg PO TID [facility] Last Admin: 06/01/16 16:31 Dose: 50 mg Carbidopa/Levodopa (Rytary Er 48.75 Mg-195 Mg Cap) 1 cap PO TID@0500,1300,2100 [facility] Last Admin: 06/01/16 21:02 Dose: 1 cap Docusate Sodium (Colace) 100 mg PO BID [facility] Last Admin: 06/01/16 16:31 Dose: 100 mg Fluocinonide (Lidex 0.05% Oint) 1 applic TOP BID [facility] Last Admin: 06/01/16 16:31 Dose: 1 applic Magnesium Hydroxide (Milk Of Magnesia) 30 ml PO DAILY PRN PRN Reason: Constipation Last Admin: 05/14/16 09:33 Dose: 30 ml Midodrine (Proamatine) 10 mg PO TID [facility] Last Admin: 06/01/16 16:31 Dose: 10 mg Quetiapine Fumarate (Seroquel) 50 mg PO HS PRN PRN Reason: Agitation Last Admin: 05/20/16 21:17 Dose: 50 mg - Labs Labs: 02/19/16 05:10 02/19/16 05:10 - Respiratory Exam Respiratory Exam: NORMAL BREATHING PATTERN - Cardiovascular Exam Cardiovascular Exam: REGULAR RHYTHM - GI/Abdominal Exam GI & Abdominal Exam: Normal Bowel Sounds Assessment and Plan - Assessment and Plan (Free Text) Assessment: MSA Parkinsons DX Lilia Vieira PT Rytary 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
[2016-06-02] MEDS: LEVODOPA PO SCH ×3 (06:00→21:48)
[2016-06-02] MEDS: CARBIDOPA PO SCH ×3 (06:00→21:48)
[2016-06-02] MEDS: Bethanechol 50 MG TAB PO SCH ×3 (09:45→16:43)
--- NOTE | 2016-06-02 13:42 | CP.PCM.PN ---
Subjective - Date & Time of Evaluation Date of Evaluation: 06/02/16 Time of Evaluation: 22:22 - Subjective Subjective: doing well Objective - Vital Signs/Intake and Output Vital Signs (last 24 hours): Temp Pulse Resp BP Pulse Ox 97.1 F L 106 H 20 95/63 L 98 06/02/16 08:49 06/02/16 08:49 06/02/16 08:49 06/02/16 08:49 06/02/16 08:49 - Medications Medications: Current Medications Acetaminophen (Tylenol 325mg Tab) 650 mg PO Q6 PRN PRN Reason: Pain, Mild (1-3) Last Admin: 06/01/16 21:30 Dose: 650 mg Bethanechol Chloride (Urecholine) 50 mg PO TID [facility] Last Admin: 06/02/16 13:15 Dose: 50 mg Carbidopa/Levodopa (Rytary Er 48.75 Mg-195 Mg Cap) 1 cap PO TID@0500,1300,2100 [facility] Last Admin: 06/02/16 13:15 Dose: 1 cap Docusate Sodium (Colace) 100 mg PO BID [facility] Last Admin: 06/02/16 09:44 Dose: 100 mg Fluocinonide (Lidex 0.05% Oint) 1 applic TOP BID [facility] Last Admin: 06/02/16 09:44 Dose: 1 applic Magnesium Hydroxide (Milk Of Magnesia) 30 ml PO DAILY PRN PRN Reason: Constipation Last Admin: 05/14/16 09:33 Dose: 30 ml Midodrine (Proamatine) 10 mg PO TID [facility] Last Admin: 06/02/16 13:15 Dose: 10 mg Quetiapine Fumarate (Seroquel) 50 mg PO HS PRN PRN Reason: Agitation Last Admin: 05/20/16 21:17 Dose: 50 mg - Labs Labs: 02/19/16 05:10 02/19/16 05:10 - Respiratory Exam Respiratory Exam: NORMAL BREATHING PATTERN - Cardiovascular Exam Cardiovascular Exam: REGULAR RHYTHM - GI/Abdominal Exam GI & Abdominal Exam: Normal Bowel Sounds Assessment and Plan - Assessment and Plan (Free Text) Assessment: MSA Parkinsons DX Lilia Vieira PT Rytary 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
[2016-06-03] MEDS: LEVODOPA PO SCH ×3 (05:45→21:06)
[2016-06-03] MEDS: CARBIDOPA PO SCH ×3 (05:45→21:06)
[2016-06-03] MEDS: Bethanechol 50 MG TAB PO SCH ×3 (08:18→17:05)
--- NOTE | 2016-06-03 19:40 | CP.PCM.PN ---
Subjective - Date & Time of Evaluation Date of Evaluation: 06/03/16 Time of Evaluation: 22:22 - Subjective Subjective: Above noted Objective - Vital Signs/Intake and Output Vital Signs (last 24 hours): Temp Pulse Resp BP Pulse Ox 97.7 F 68 20 142/74 93 L 06/03/16 16:22 06/03/16 16:22 06/03/16 16:22 06/03/16 16:22 06/03/16 16:22 - Medications Medications: Current Medications Acetaminophen (Tylenol 325mg Tab) 650 mg PO Q6 PRN PRN Reason: Pain, Mild (1-3) Last Admin: 06/01/16 21:30 Dose: 650 mg Bethanechol Chloride (Urecholine) 50 mg PO TID [facility] Last Admin: 06/03/16 17:05 Dose: 50 mg Carbidopa/Levodopa (Rytary Er 48.75 Mg-195 Mg Cap) 1 cap PO TID@0500,1300,2100 [facility] Last Admin: 06/03/16 14:13 Dose: 1 cap Docusate Sodium (Colace) 100 mg PO BID [facility] Last Admin: 06/03/16 17:06 Dose: 100 mg Fluocinonide (Lidex 0.05% Oint) 1 applic TOP BID [facility] Last Admin: 06/03/16 17:06 Dose: 1 applic Magnesium Hydroxide (Milk Of Magnesia) 30 ml PO DAILY PRN PRN Reason: Constipation Last Admin: 05/14/16 09:33 Dose: 30 ml Midodrine (Proamatine) 10 mg PO TID [facility] Last Admin: 06/03/16 17:06 Dose: 10 mg Quetiapine Fumarate (Seroquel) 50 mg PO HS PRN PRN Reason: Agitation Last Admin: 05/20/16 21:17 Dose: 50 mg - Labs Labs: 02/19/16 05:10 02/19/16 05:10 - Respiratory Exam Respiratory Exam: NORMAL BREATHING PATTERN - Cardiovascular Exam Cardiovascular Exam: REGULAR RHYTHM - GI/Abdominal Exam GI & Abdominal Exam: Normal Bowel Sounds Assessment and Plan - Assessment and Plan (Free Text) Assessment: MSA Parkinsons DX Lilia Vieira PT Rytary 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
[2016-06-04] MEDS: LEVODOPA PO SCH ×3 (05:10→20:35)
[2016-06-04] MEDS: CARBIDOPA PO SCH ×3 (05:10→20:35)
[2016-06-04] MEDS: Bethanechol 50 MG TAB PO SCH ×3 (08:19→16:03)
--- NOTE | 2016-06-04 20:46 | CP.PCM.PN ---
Subjective - Date & Time of Evaluation Date of Evaluation: 06/04/16 Time of Evaluation: 22:22 - Subjective Subjective: Above noted Objective - Vital Signs/Intake and Output Vital Signs (last 24 hours): Temp Pulse Resp BP Pulse Ox 97.8 F 66 20 121/67 95 06/04/16 16:30 06/04/16 16:30 06/04/16 16:30 06/04/16 16:30 06/04/16 16:30 - Medications Medications: Current Medications Acetaminophen (Tylenol 325mg Tab) 650 mg PO Q6 PRN PRN Reason: Pain, Mild (1-3) Last Admin: 06/01/16 21:30 Dose: 650 mg Bethanechol Chloride (Urecholine) 50 mg PO TID [facility] Last Admin: 06/04/16 16:03 Dose: 50 mg Carbidopa/Levodopa (Rytary Er 48.75 Mg-195 Mg Cap) 1 cap PO TID@0500,1300,2100 [facility] Last Admin: 06/04/16 20:35 Dose: 1 cap Docusate Sodium (Colace) 100 mg PO BID [facility] Last Admin: 06/04/16 16:04 Dose: 100 mg Fluocinonide (Lidex 0.05% Oint) 1 applic TOP BID [facility] Last Admin: 06/04/16 16:04 Dose: 1 applic Magnesium Hydroxide (Milk Of Magnesia) 30 ml PO DAILY PRN PRN Reason: Constipation Last Admin: 05/14/16 09:33 Dose: 30 ml Midodrine (Proamatine) 10 mg PO TID [facility] Last Admin: 06/04/16 16:04 Dose: 10 mg Quetiapine Fumarate (Seroquel) 50 mg PO HS PRN PRN Reason: Agitation Last Admin: 05/20/16 21:17 Dose: 50 mg - Labs Labs: 02/19/16 05:10 02/19/16 05:10 - Respiratory Exam Respiratory Exam: NORMAL BREATHING PATTERN - Cardiovascular Exam Cardiovascular Exam: REGULAR RHYTHM - GI/Abdominal Exam GI & Abdominal Exam: Normal Bowel Sounds Assessment and Plan - Assessment and Plan (Free Text) Assessment: MSA Parkinsons DX Lilia Vieira PT Rytary 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
[2016-06-05] MEDS: LEVODOPA PO SCH ×3 (05:13→20:11)
[2016-06-05] MEDS: CARBIDOPA PO SCH ×3 (05:13→20:11)
[2016-06-05] MEDS: Bethanechol 50 MG TAB PO SCH ×3 (08:31→15:59)
--- NOTE | 2016-06-05 19:52 | CP.PCM.PN ---
Subjective - Date & Time of Evaluation Date of Evaluation: 06/05/16 Time of Evaluation: 22:22 - Subjective Subjective: Above noted Objective - Vital Signs/Intake and Output Vital Signs (last 24 hours): Temp Pulse Resp BP Pulse Ox 97.5 F L 78 20 133/69 97 06/05/16 09:03 06/05/16 09:03 06/05/16 09:03 06/05/16 09:03 06/05/16 09:03 - Medications Medications: Current Medications Acetaminophen (Tylenol 325mg Tab) 650 mg PO Q6 PRN PRN Reason: Pain, Mild (1-3) Last Admin: 06/01/16 21:30 Dose: 650 mg Bethanechol Chloride (Urecholine) 50 mg PO TID [facility] Last Admin: 06/05/16 15:59 Dose: 50 mg Carbidopa/Levodopa (Rytary Er 48.75 Mg-195 Mg Cap) 1 cap PO TID@0500,1300,2100 [facility] Last Admin: 06/05/16 12:00 Dose: 1 cap Docusate Sodium (Colace) 100 mg PO BID [facility] Last Admin: 06/05/16 15:59 Dose: 100 mg Fluocinonide (Lidex 0.05% Oint) 1 applic TOP BID [facility] Last Admin: 06/05/16 15:59 Dose: 1 applic Magnesium Hydroxide (Milk Of Magnesia) 30 ml PO DAILY PRN PRN Reason: Constipation Last Admin: 05/14/16 09:33 Dose: 30 ml Midodrine (Proamatine) 10 mg PO TID [facility] Last Admin: 06/05/16 15:59 Dose: 10 mg Quetiapine Fumarate (Seroquel) 50 mg PO HS PRN PRN Reason: Agitation Last Admin: 06/04/16 22:32 Dose: 50 mg - Labs Labs: 02/19/16 05:10 02/19/16 05:10 - Respiratory Exam Respiratory Exam: NORMAL BREATHING PATTERN - Cardiovascular Exam Cardiovascular Exam: REGULAR RHYTHM - GI/Abdominal Exam GI & Abdominal Exam: Normal Bowel Sounds Assessment and Plan - Assessment and Plan (Free Text) Assessment: MSA Parkinsons DX Lilia Vieira PT Rytary 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
[2016-06-06] MEDS: LEVODOPA PO SCH ×3 (04:53→20:53)
[2016-06-06] MEDS: CARBIDOPA PO SCH ×3 (04:53→20:53)
[2016-06-06] MEDS: Bethanechol 50 MG TAB PO SCH ×3 (09:20→16:01)
[2016-06-07] MEDS: LEVODOPA PO SCH ×3 (05:23→21:09)
[2016-06-07] MEDS: CARBIDOPA PO SCH ×3 (05:23→21:09)
[2016-06-07] MEDS: Bethanechol 50 MG TAB PO SCH ×3 (09:28→16:35)
--- NOTE | 2016-06-07 17:29 | CP.PCM.PN ---
Subjective - Date & Time of Evaluation Date of Evaluation: 06/07/16 Time of Evaluation: 22:22 - Subjective Subjective: Doing well Objective - Vital Signs/Intake and Output Vital Signs (last 24 hours): Temp Pulse Resp BP Pulse Ox 96.6 F L 79 18 136/78 100 06/07/16 16:18 06/07/16 16:18 06/07/16 16:18 06/07/16 16:18 06/07/16 16:18 - Medications Medications: Current Medications Acetaminophen (Tylenol 325mg Tab) 650 mg PO Q6 PRN PRN Reason: Pain, Mild (1-3) Last Admin: 06/05/16 20:49 Dose: 650 mg Bethanechol Chloride (Urecholine) 50 mg PO TID [facility] Last Admin: 06/07/16 16:35 Dose: 50 mg Carbidopa/Levodopa (Rytary Er 48.75 Mg-195 Mg Cap) 1 cap PO TID@0500,1300,2100 [facility] Last Admin: 06/07/16 12:02 Dose: 1 cap Docusate Sodium (Colace) 100 mg PO BID [facility] Last Admin: 06/07/16 16:27 Dose: 100 mg Fluocinonide (Lidex 0.05% Oint) 1 applic TOP BID [facility] Last Admin: 06/07/16 16:35 Dose: 1 applic Magnesium Hydroxide (Milk Of Magnesia) 30 ml PO DAILY PRN PRN Reason: Constipation Last Admin: 05/14/16 09:33 Dose: 30 ml Midodrine (Proamatine) 10 mg PO TID [facility] Last Admin: 06/07/16 16:35 Dose: 10 mg Quetiapine Fumarate (Seroquel) 50 mg PO HS PRN PRN Reason: Agitation Last Admin: 06/04/16 22:32 Dose: 50 mg - Labs Labs: 02/19/16 05:10 02/19/16 05:10 - Respiratory Exam Respiratory Exam: NORMAL BREATHING PATTERN - Cardiovascular Exam Cardiovascular Exam: REGULAR RHYTHM - GI/Abdominal Exam GI & Abdominal Exam: Normal Bowel Sounds Assessment and Plan - Assessment and Plan (Free Text) Assessment: MSA Parkinsons DX Lilia Vieira PT Rytary 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
[2016-06-08] MEDS: LEVODOPA PO SCH ×3 (05:04→20:32)
[2016-06-08] MEDS: CARBIDOPA PO SCH ×3 (05:04→20:32)
[2016-06-08] MEDS: Bethanechol 50 MG TAB PO SCH ×3 (08:57→16:19)
[2016-06-08] MEDS: Magnesium Hydroxide Susp 30 ml UD PO PRN (08:59)
[2016-06-09] MEDS: CARBIDOPA PO SCH ×3 (05:59→21:18)
[2016-06-09] MEDS: LEVODOPA PO SCH ×3 (05:59→21:18)
[2016-06-09] MEDS: Bethanechol 50 MG TAB PO SCH ×3 (08:24→16:31)
[2016-06-10] MEDS: LEVODOPA PO SCH ×3 (05:19→21:13)
[2016-06-10] MEDS: CARBIDOPA PO SCH ×3 (05:19→21:13)
[2016-06-10] MEDS: Bethanechol 50 MG TAB PO SCH ×3 (08:15→16:27)
--- NOTE | 2016-06-10 20:34 | CP.PCM.PN ---
Subjective - Date & Time of Evaluation Date of Evaluation: 06/10/16 Time of Evaluation: 22:22 - Subjective Subjective: Sleeping Objective - Vital Signs/Intake and Output Vital Signs (last 24 hours): Temp Pulse Resp BP Pulse Ox 97.2 F L 84 18 133/69 96 06/10/16 17:08 06/10/16 17:08 06/10/16 17:08 06/10/16 17:08 06/10/16 17:08 - Medications Medications: Current Medications Acetaminophen (Tylenol 325mg Tab) 650 mg PO Q6 PRN PRN Reason: Pain, Mild (1-3) Last Admin: 06/05/16 20:49 Dose: 650 mg Bethanechol Chloride (Urecholine) 50 mg PO TID [facility] Last Admin: 06/10/16 16:27 Dose: 50 mg Carbidopa/Levodopa (Rytary Er 48.75 Mg-195 Mg Cap) 1 cap PO TID@0500,1300,2100 [facility] Last Admin: 06/10/16 12:19 Dose: 1 cap Docusate Sodium (Colace) 100 mg PO BID [facility] Last Admin: 06/10/16 16:28 Dose: 100 mg Fluocinonide (Lidex 0.05% Oint) 1 applic TOP BID [facility] Last Admin: 06/10/16 16:28 Dose: 1 applic Magnesium Hydroxide (Milk Of Magnesia) 30 ml PO DAILY PRN PRN Reason: Constipation Last Admin: 06/08/16 08:59 Dose: 30 ml Midodrine (Proamatine) 10 mg PO TID [facility] Last Admin: 06/10/16 16:27 Dose: 10 mg Quetiapine Fumarate (Seroquel) 50 mg PO HS PRN PRN Reason: Agitation Last Admin: 06/09/16 22:08 Dose: 50 mg - Labs Labs: 02/19/16 05:10 02/19/16 05:10 - Respiratory Exam Respiratory Exam: NORMAL BREATHING PATTERN - Cardiovascular Exam Cardiovascular Exam: REGULAR RHYTHM - GI/Abdominal Exam GI & Abdominal Exam: Normal Bowel Sounds Assessment and Plan - Assessment and Plan (Free Text) Assessment: MSA Parkinsons DX Lilia Vieira PT Rytary 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
[2016-06-11] MEDS: CARBIDOPA PO SCH ×3 (05:04→20:59)
[2016-06-11] MEDS: LEVODOPA PO SCH ×3 (05:04→20:59)
[2016-06-11] MEDS: Bethanechol 50 MG TAB PO SCH ×3 (10:03→16:53)
--- NOTE | 2016-06-11 18:36 | CP.PCM.PN ---
Subjective - Date & Time of Evaluation Date of Evaluation: 06/11/16 Time of Evaluation: 22:22 - Subjective Subjective: Above noted Objective - Vital Signs/Intake and Output Vital Signs (last 24 hours): Temp Pulse Resp BP Pulse Ox 96.4 F L 66 20 119/54 L 98 06/11/16 16:15 06/11/16 16:15 06/11/16 16:15 06/11/16 16:15 06/11/16 16:15 - Medications Medications: Current Medications Acetaminophen (Tylenol 325mg Tab) 650 mg PO Q6 PRN PRN Reason: Pain, Mild (1-3) Last Admin: 06/05/16 20:49 Dose: 650 mg Bethanechol Chloride (Urecholine) 50 mg PO TID [facility] Last Admin: 06/11/16 16:53 Dose: 50 mg Carbidopa/Levodopa (Rytary Er 48.75 Mg-195 Mg Cap) 1 cap PO TID@0500,1300,2100 [facility] Last Admin: 06/11/16 12:38 Dose: 1 cap Docusate Sodium (Colace) 100 mg PO BID [facility] Last Admin: 06/11/16 16:51 Dose: 100 mg Fluocinonide (Lidex 0.05% Oint) 1 applic TOP BID [facility] Last Admin: 06/11/16 17:30 Dose: 1 applic Magnesium Hydroxide (Milk Of Magnesia) 30 ml PO DAILY PRN PRN Reason: Constipation Last Admin: 06/08/16 08:59 Dose: 30 ml Midodrine (Proamatine) 10 mg PO TID [facility] Last Admin: 06/11/16 16:52 Dose: 10 mg Quetiapine Fumarate (Seroquel) 50 mg PO HS PRN PRN Reason: Agitation Last Admin: 06/09/16 22:08 Dose: 50 mg - Labs Labs: 02/19/16 05:10 02/19/16 05:10 - Respiratory Exam Respiratory Exam: NORMAL BREATHING PATTERN - Cardiovascular Exam Cardiovascular Exam: REGULAR RHYTHM - GI/Abdominal Exam GI & Abdominal Exam: Normal Bowel Sounds Assessment and Plan - Assessment and Plan (Free Text) Assessment: MSA Parkinsons DX Lilia Vieira PT Rytary 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
[2016-06-12] MEDS: CARBIDOPA PO SCH ×3 (05:02→21:16)
[2016-06-12] MEDS: LEVODOPA PO SCH ×3 (05:02→21:16)
[2016-06-12] MEDS: Bethanechol 50 MG TAB PO SCH ×3 (08:50→17:25)
--- NOTE | 2016-06-12 19:53 | CP.PCM.PN ---
Subjective - Date & Time of Evaluation Date of Evaluation: 06/12/16 Time of Evaluation: 22:22 - Subjective Subjective: Above noted Objective - Vital Signs/Intake and Output Vital Signs (last 24 hours): Temp Pulse Resp BP Pulse Ox 97 F L 89 20 121/89 98 06/12/16 16:18 06/12/16 16:57 06/12/16 16:18 06/12/16 16:18 06/12/16 16:18 - Medications Medications: Current Medications Acetaminophen (Tylenol 325mg Tab) 650 mg PO Q6 PRN PRN Reason: Pain, Mild (1-3) Last Admin: 06/05/16 20:49 Dose: 650 mg Bethanechol Chloride (Urecholine) 50 mg PO TID [facility] Last Admin: 06/12/16 17:25 Dose: 50 mg Carbidopa/Levodopa (Rytary Er 48.75 Mg-195 Mg Cap) 1 cap PO TID@0500,1300,2100 [facility] Last Admin: 06/12/16 13:00 Dose: 1 cap Docusate Sodium (Colace) 100 mg PO BID [facility] Last Admin: 06/12/16 17:21 Dose: 100 mg Fluocinonide (Lidex 0.05% Oint) 1 applic TOP BID [facility] Last Admin: 06/12/16 17:21 Dose: 1 applic Magnesium Hydroxide (Milk Of Magnesia) 30 ml PO DAILY PRN PRN Reason: Constipation Last Admin: 06/08/16 08:59 Dose: 30 ml Midodrine (Proamatine) 10 mg PO TID [facility] Last Admin: 06/12/16 17:23 Dose: 10 mg Quetiapine Fumarate (Seroquel) 50 mg PO HS PRN PRN Reason: Agitation Last Admin: 06/09/16 22:08 Dose: 50 mg - Labs Labs: 02/19/16 05:10 02/19/16 05:10 - Respiratory Exam Respiratory Exam: NORMAL BREATHING PATTERN - Cardiovascular Exam Cardiovascular Exam: REGULAR RHYTHM - GI/Abdominal Exam GI & Abdominal Exam: Normal Bowel Sounds Assessment and Plan - Assessment and Plan (Free Text) Assessment: MSA Parkinsons DX Lilia Vieira PT Rytary 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
[2016-06-13] MEDS: CARBIDOPA PO SCH ×3 (05:10→20:33)
[2016-06-13] MEDS: LEVODOPA PO SCH ×3 (05:10→20:33)
[2016-06-13] MEDS: Bethanechol 50 MG TAB PO SCH ×3 (08:47→17:01)
--- NOTE | 2016-06-13 21:13 | CP.PCM.PN ---
Subjective - Date & Time of Evaluation Date of Evaluation: 06/13/16 Time of Evaluation: 22:22 - Subjective Subjective: Doing well Dec shoulder ROM Objective - Vital Signs/Intake and Output Vital Signs (last 24 hours): Temp Pulse Resp BP Pulse Ox 96.6 F L 75 20 136/89 99 06/13/16 21:09 06/13/16 21:09 06/13/16 21:09 06/13/16 21:09 06/13/16 21:09 - Medications Medications: Current Medications Acetaminophen (Tylenol 325mg Tab) 650 mg PO Q6 PRN PRN Reason: Pain, Mild (1-3) Last Admin: 06/05/16 20:49 Dose: 650 mg Bethanechol Chloride (Urecholine) 50 mg PO TID [facility] Last Admin: 06/13/16 17:01 Dose: 50 mg Carbidopa/Levodopa (Rytary Er 48.75 Mg-195 Mg Cap) 1 cap PO TID@0500,1300,2100 [facility] Last Admin: 06/13/16 20:33 Dose: 1 cap Docusate Sodium (Colace) 100 mg PO BID [facility] Last Admin: 06/13/16 17:00 Dose: 100 mg Fluocinonide (Lidex 0.05% Oint) 1 applic TOP BID [facility] Last Admin: 06/13/16 17:00 Dose: 1 applic Magnesium Hydroxide (Milk Of Magnesia) 30 ml PO DAILY PRN PRN Reason: Constipation Last Admin: 06/08/16 08:59 Dose: 30 ml Midodrine (Proamatine) 10 mg PO TID [facility] Last Admin: 06/13/16 17:00 Dose: 10 mg Quetiapine Fumarate (Seroquel) 50 mg PO HS PRN PRN Reason: Agitation Last Admin: 06/12/16 23:40 Dose: 50 mg - Labs Labs: 02/19/16 05:10 02/19/16 05:10 - Respiratory Exam Respiratory Exam: NORMAL BREATHING PATTERN - Cardiovascular Exam Cardiovascular Exam: REGULAR RHYTHM - GI/Abdominal Exam GI & Abdominal Exam: Normal Bowel Sounds Assessment and Plan - Assessment and Plan (Free Text) Assessment: R shoulder pain Dec ROM xrays subluxation Ultram PRN PT MSA Parkinsons DX 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
[2016-06-14] MEDS: CARBIDOPA PO SCH ×3 (05:03→20:26)
[2016-06-14] MEDS: LEVODOPA PO SCH ×3 (05:03→20:26)
[2016-06-14] MEDS: Bethanechol 50 MG TAB PO SCH ×3 (08:36→16:37)
--- NOTE | 2016-06-14 17:32 | CP.PCM.PN ---
Subjective - Date & Time of Evaluation Date of Evaluation: 06/14/16 Time of Evaluation: 22:22 - Subjective Subjective: Above noted Objective - Vital Signs/Intake and Output Vital Signs (last 24 hours): Temp Pulse Resp BP Pulse Ox 97 F L 64 20 143/58 L 97 06/14/16 17:15 06/14/16 17:15 06/14/16 17:15 06/14/16 17:15 06/14/16 17:15 - Medications Medications: Current Medications Acetaminophen (Tylenol 325mg Tab) 650 mg PO Q6 PRN PRN Reason: Pain, Mild (1-3) Last Admin: 06/05/16 20:49 Dose: 650 mg Bethanechol Chloride (Urecholine) 50 mg PO TID [facility] Last Admin: 06/14/16 16:37 Dose: 50 mg Carbidopa/Levodopa (Rytary Er 48.75 Mg-195 Mg Cap) 1 cap PO TID@0500,1300,2100 [facility] Last Admin: 06/14/16 13:05 Dose: 1 cap Docusate Sodium (Colace) 100 mg PO BID [facility] Last Admin: 06/14/16 08:35 Dose: 100 mg Fluocinonide (Lidex 0.05% Oint) 1 applic TOP BID [facility] Last Admin: 06/14/16 16:41 Dose: 1 applic Magnesium Hydroxide (Milk Of Magnesia) 30 ml PO DAILY PRN PRN Reason: Constipation Last Admin: 06/08/16 08:59 Dose: 30 ml Midodrine (Proamatine) 10 mg PO TID [facility] Last Admin: 06/14/16 16:38 Dose: 10 mg Quetiapine Fumarate (Seroquel) 50 mg PO HS PRN PRN Reason: Agitation Last Admin: 06/13/16 23:31 Dose: 50 mg - Labs Labs: 02/19/16 05:10 02/19/16 05:10 - Respiratory Exam Respiratory Exam: NORMAL BREATHING PATTERN - Cardiovascular Exam Cardiovascular Exam: REGULAR RHYTHM - GI/Abdominal Exam GI & Abdominal Exam: Normal Bowel Sounds Assessment and Plan - Assessment and Plan (Free Text) Assessment: R shoulder pain Dec ROM xrays subluxation Ultram PRN PT MSA Parkinsons DX 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
[2016-06-15] MEDS: LEVODOPA PO SCH ×3 (05:32→21:31)
[2016-06-15] MEDS: CARBIDOPA PO SCH ×3 (05:32→21:31)
[2016-06-15] MEDS: Bethanechol 50 MG TAB PO SCH ×3 (08:50→16:13)
[2016-06-16] MEDS: LEVODOPA PO SCH ×3 (04:27→21:32)
[2016-06-16] MEDS: CARBIDOPA PO SCH ×3 (04:27→21:32)
[2016-06-16] MEDS: Bethanechol 50 MG TAB PO SCH ×3 (09:05→16:25)
--- NOTE | 2016-06-16 14:05 | CP.PCM.PN ---
Subjective - Date & Time of Evaluation Date of Evaluation: 06/16/16 Time of Evaluation: 22:22 - Subjective Subjective: Above noted Objective - Vital Signs/Intake and Output Vital Signs (last 24 hours): Temp Pulse Resp BP Pulse Ox 97.3 F L 70 20 106/63 91 L 06/16/16 09:00 06/16/16 08:35 06/16/16 08:35 06/16/16 08:35 06/16/16 08:35 - Medications Medications: Current Medications Acetaminophen (Tylenol 325mg Tab) 650 mg PO Q6 PRN PRN Reason: Pain, Mild (1-3) Last Admin: 06/05/16 20:49 Dose: 650 mg Bethanechol Chloride (Urecholine) 50 mg PO TID [facility] Last Admin: 06/16/16 12:12 Dose: 50 mg Carbidopa/Levodopa (Rytary Er 48.75 Mg-195 Mg Cap) 1 cap PO TID@0500,1300,2100 [facility] Last Admin: 06/16/16 12:13 Dose: 1 cap Docusate Sodium (Colace) 100 mg PO BID [facility] Last Admin: 06/16/16 09:05 Dose: 100 mg Fluocinonide (Lidex 0.05% Oint) 1 applic TOP BID [facility] Last Admin: 06/16/16 09:05 Dose: 1 applic Magnesium Hydroxide (Milk Of Magnesia) 30 ml PO DAILY PRN PRN Reason: Constipation Last Admin: 06/08/16 08:59 Dose: 30 ml Midodrine (Proamatine) 10 mg PO TID [facility] Last Admin: 06/16/16 12:13 Dose: 10 mg Quetiapine Fumarate (Seroquel) 50 mg PO HS PRN PRN Reason: Agitation Last Admin: 06/13/16 23:31 Dose: 50 mg - Labs Labs: 02/19/16 05:10 02/19/16 05:10
[2016-06-16] MEDS: Magnesium Hydroxide Susp 30 ml UD PO PRN (14:48)
[2016-06-17] MEDS: LEVODOPA PO SCH ×3 (04:35→21:44)
[2016-06-17] MEDS: CARBIDOPA PO SCH ×3 (04:35→21:44)
[2016-06-17] MEDS: Bethanechol 50 MG TAB PO SCH ×3 (08:56→16:31)
--- NOTE | 2016-06-17 21:18 | CP.PCM.PN ---
Subjective - Date & Time of Evaluation Date of Evaluation: 06/17/16 Time of Evaluation: 22:22 - Subjective Subjective: Doing well Objective - Vital Signs/Intake and Output Vital Signs (last 24 hours): Temp Pulse Resp BP Pulse Ox 96.4 F L 89 20 150/63 98 06/17/16 21:02 06/17/16 21:02 06/17/16 21:02 06/17/16 21:02 06/17/16 21:02 - Medications Medications: Current Medications Acetaminophen (Tylenol 325mg Tab) 650 mg PO Q6 PRN PRN Reason: Pain, Mild (1-3) Last Admin: 06/16/16 16:25 Dose: 650 mg Bethanechol Chloride (Urecholine) 50 mg PO TID [facility] Last Admin: 06/17/16 16:31 Dose: 50 mg Carbidopa/Levodopa (Rytary Er 48.75 Mg-195 Mg Cap) 1 cap PO TID@0500,1300,2100 [facility] Last Admin: 06/17/16 12:52 Dose: 1 cap Docusate Sodium (Colace) 100 mg PO BID [facility] Last Admin: 06/17/16 16:31 Dose: 100 mg Fluocinonide (Lidex 0.05% Oint) 1 applic TOP BID [facility] Last Admin: 06/17/16 16:31 Dose: 1 applic Magnesium Hydroxide (Milk Of Magnesia) 30 ml PO DAILY PRN PRN Reason: Constipation Last Admin: 06/16/16 14:48 Dose: 30 ml Midodrine (Proamatine) 10 mg PO TID [facility] Last Admin: 06/17/16 16:31 Dose: 10 mg Quetiapine Fumarate (Seroquel) 50 mg PO HS PRN PRN Reason: Agitation Last Admin: 06/17/16 12:52 Dose: 50 mg - Labs Labs: 02/19/16 05:10 02/19/16 05:10 - Respiratory Exam Respiratory Exam: NORMAL BREATHING PATTERN - Cardiovascular Exam Cardiovascular Exam: REGULAR RHYTHM - GI/Abdominal Exam GI & Abdominal Exam: Normal Bowel Sounds Assessment and Plan - Assessment and Plan (Free Text) Assessment: R shoulder pain Dec ROM xrays subluxation Ultram PRN PT MSA Parkinsons DX 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
[2016-06-18] MEDS: CARBIDOPA PO SCH ×3 (04:00→22:26)
[2016-06-18] MEDS: LEVODOPA PO SCH ×3 (04:00→22:26)
[2016-06-18] MEDS: Bethanechol 50 MG TAB PO SCH ×3 (08:45→16:55)
--- NOTE | 2016-06-18 20:37 | CP.PCM.PN ---
Subjective - Date & Time of Evaluation Date of Evaluation: 06/18/16 Time of Evaluation: 22:22 - Subjective Subjective: No change in status Objective - Vital Signs/Intake and Output Vital Signs (last 24 hours): Temp Pulse Resp BP Pulse Ox 97.6 F 75 20 112/69 98 06/18/16 16:49 06/18/16 16:49 06/18/16 16:49 06/18/16 16:49 06/18/16 16:49 - Medications Medications: Current Medications Acetaminophen (Tylenol 325mg Tab) 650 mg PO Q6 PRN PRN Reason: Pain, Mild (1-3) Last Admin: 06/16/16 16:25 Dose: 650 mg Bethanechol Chloride (Urecholine) 50 mg PO TID [facility] Last Admin: 06/18/16 16:55 Dose: 50 mg Carbidopa/Levodopa (Rytary Er 48.75 Mg-195 Mg Cap) 1 cap PO TID@0500,1300,2100 [facility] Last Admin: 06/18/16 13:12 Dose: 1 cap Docusate Sodium (Colace) 100 mg PO BID [facility] Last Admin: 06/18/16 16:54 Dose: 100 mg Fluocinonide (Lidex 0.05% Oint) 1 applic TOP BID [facility] Last Admin: 06/18/16 16:54 Dose: 1 applic Magnesium Hydroxide (Milk Of Magnesia) 30 ml PO DAILY PRN PRN Reason: Constipation Last Admin: 06/16/16 14:48 Dose: 30 ml Midodrine (Proamatine) 10 mg PO TID [facility] Last Admin: 06/18/16 16:54 Dose: 10 mg Quetiapine Fumarate (Seroquel) 50 mg PO HS PRN PRN Reason: Agitation Last Admin: 06/17/16 12:52 Dose: 50 mg - Labs Labs: 02/19/16 05:10 02/19/16 05:10 - Respiratory Exam Respiratory Exam: NORMAL BREATHING PATTERN - Cardiovascular Exam Cardiovascular Exam: REGULAR RHYTHM - GI/Abdominal Exam GI & Abdominal Exam: Normal Bowel Sounds Assessment and Plan - Assessment and Plan (Free Text) Assessment: Assessment: R shoulder pain Dec ROM xrays subluxation Ultram PRN PT MSA Parkinsons DX 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
[2016-06-19] MEDS: LEVODOPA PO SCH ×3 (04:12→20:48)
[2016-06-19] MEDS: CARBIDOPA PO SCH ×3 (04:12→20:48)
[2016-06-19] MEDS: Bethanechol 50 MG TAB PO SCH ×3 (09:52→17:57)
--- NOTE | 2016-06-19 17:41 | CP.PCM.PN ---
Subjective - Date & Time of Evaluation Date of Evaluation: 06/19/16 Time of Evaluation: 22:22 - Subjective Subjective: above noted Objective - Vital Signs/Intake and Output Vital Signs (last 24 hours): Temp Pulse Resp BP Pulse Ox 97.7 F 69 20 146/84 98 06/19/16 16:21 06/19/16 16:21 06/19/16 16:21 06/19/16 16:21 06/19/16 16:21 - Medications Medications: Current Medications Acetaminophen (Tylenol 325mg Tab) 650 mg PO Q6 PRN PRN Reason: Pain, Mild (1-3) Last Admin: 06/16/16 16:25 Dose: 650 mg Bethanechol Chloride (Urecholine) 50 mg PO TID [facility] Last Admin: 06/19/16 12:55 Dose: 50 mg Carbidopa/Levodopa (Rytary Er 48.75 Mg-195 Mg Cap) 1 cap PO TID@0500,1300,2100 [facility] Last Admin: 06/19/16 12:54 Dose: 1 cap Docusate Sodium (Colace) 100 mg PO BID [facility] Last Admin: 06/19/16 09:51 Dose: 100 mg Fluocinonide (Lidex 0.05% Oint) 1 applic TOP BID [facility] Last Admin: 06/19/16 09:53 Dose: 1 applic Magnesium Hydroxide (Milk Of Magnesia) 30 ml PO DAILY PRN PRN Reason: Constipation Last Admin: 06/16/16 14:48 Dose: 30 ml Midodrine (Proamatine) 10 mg PO TID [facility] Last Admin: 06/19/16 12:54 Dose: 10 mg Quetiapine Fumarate (Seroquel) 50 mg PO HS PRN PRN Reason: Agitation Last Admin: 06/17/16 12:52 Dose: 50 mg - Labs Labs: 02/19/16 05:10 02/19/16 05:10 - Respiratory Exam Respiratory Exam: NORMAL BREATHING PATTERN - Cardiovascular Exam Cardiovascular Exam: REGULAR RHYTHM - GI/Abdominal Exam GI & Abdominal Exam: Normal Bowel Sounds Assessment and Plan - Assessment and Plan (Free Text) Assessment: R shoulder pain Dec ROM xrays subluxation Ultram PRN PT MSA Parkinsons DX 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
[2016-06-20] MEDS: LEVODOPA PO SCH ×3 (06:23→21:04)
[2016-06-20] MEDS: CARBIDOPA PO SCH ×3 (06:23→21:04)
[2016-06-20] MEDS: Bethanechol 50 MG TAB PO SCH ×3 (10:33→16:36)
--- NOTE | 2016-06-20 15:26 | CP.PCM.PN ---
Subjective - Date & Time of Evaluation Date of Evaluation: 06/20/16 Time of Evaluation: 22:22 - Subjective Subjective: Doing well Objective - Vital Signs/Intake and Output Vital Signs (last 24 hours): Temp Pulse Resp BP Pulse Ox 97.1 F L 62 20 118/55 L 99 06/20/16 08:11 06/20/16 08:11 06/20/16 08:11 06/20/16 08:11 06/20/16 08:11 - Medications Medications: Current Medications Acetaminophen (Tylenol 325mg Tab) 650 mg PO Q6 PRN PRN Reason: Pain, Mild (1-3) Last Admin: 06/16/16 16:25 Dose: 650 mg Bethanechol Chloride (Urecholine) 50 mg PO TID [facility] Last Admin: 06/20/16 13:25 Dose: 50 mg Carbidopa/Levodopa (Rytary Er 48.75 Mg-195 Mg Cap) 1 cap PO TID@0500,1300,2100 [facility] Last Admin: 06/20/16 13:25 Dose: 1 cap Docusate Sodium (Colace) 100 mg PO BID [facility] Last Admin: 06/20/16 10:32 Dose: 100 mg Fluocinonide (Lidex 0.05% Oint) 1 applic TOP BID [facility] Last Admin: 06/20/16 10:32 Dose: 1 applic Magnesium Hydroxide (Milk Of Magnesia) 30 ml PO DAILY PRN PRN Reason: Constipation Last Admin: 06/16/16 14:48 Dose: 30 ml Midodrine (Proamatine) 10 mg PO TID [facility] Last Admin: 06/20/16 13:26 Dose: 10 mg Quetiapine Fumarate (Seroquel) 50 mg PO HS PRN PRN Reason: Agitation Last Admin: 06/17/16 12:52 Dose: 50 mg - Labs Labs: 02/19/16 05:10 02/19/16 05:10 - Respiratory Exam Respiratory Exam: NORMAL BREATHING PATTERN - Cardiovascular Exam Cardiovascular Exam: REGULAR RHYTHM - GI/Abdominal Exam GI & Abdominal Exam: Normal Bowel Sounds Assessment and Plan - Assessment and Plan (Free Text) Assessment: MSA Parkinsons DX Lilia Vieira PT Rytary 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
[2016-06-21] MEDS: LEVODOPA PO SCH ×3 (04:44→21:05)
[2016-06-21] MEDS: CARBIDOPA PO SCH ×3 (04:44→21:05)
[2016-06-21] MEDS: Bethanechol 50 MG TAB PO SCH ×3 (09:16→18:05)
--- NOTE | 2016-06-21 16:55 | CP.PCM.PN ---
Subjective - Date & Time of Evaluation Date of Evaluation: 06/21/16 Time of Evaluation: 15:00 - Subjective Subjective: Covering for PMD Dr. Fernández. Patient seen bedside. Lying in bed in NAD. Awake , alert , oriented to place , person, pale, weak, anxious and agitated at times , with axial rigidity, some resting tremors. States that does not feel well, feels weak and wants to get out of the hospital. Hemodynamically stable, afebrile No acute issues overnight. Objective - Vital Signs/Intake and Output Vital Signs (last 24 hours): Temp Pulse Resp BP Pulse Ox 97 F L 76 18 124/60 96 06/21/16 16:23 06/21/16 16:23 06/21/16 16:23 06/21/16 16:23 06/21/16 16:23 - Medications Medications: Current Medications Acetaminophen (Tylenol 325mg Tab) 650 mg PO Q6 PRN PRN Reason: Pain, Mild (1-3) Last Admin: 06/20/16 18:20 Dose: 650 mg Bethanechol Chloride (Urecholine) 50 mg PO TID [facility] Last Admin: 06/21/16 14:03 Dose: 50 mg Carbidopa/Levodopa (Rytary Er 48.75 Mg-195 Mg Cap) 1 cap PO TID@0500,1300,2100 [facility] Last Admin: 06/21/16 14:02 Dose: 1 cap Docusate Sodium (Colace) 100 mg PO BID [facility] Last Admin: 06/21/16 09:16 Dose: 100 mg Fluocinonide (Lidex 0.05% Oint) 1 applic TOP BID [facility] Last Admin: 06/21/16 09:16 Dose: 1 applic Magnesium Hydroxide (Milk Of Magnesia) 30 ml PO DAILY PRN PRN Reason: Constipation Last Admin: 06/16/16 14:48 Dose: 30 ml Midodrine (Proamatine) 10 mg PO TID [facility] Last Admin: 06/21/16 14:02 Dose: 10 mg Quetiapine Fumarate (Seroquel) 50 mg PO HS PRN PRN Reason: Agitation Last Admin: 06/17/16 12:52 Dose: 50 mg - Labs Labs: 02/19/16 05:10 02/19/16 05:10 - Constitutional Appears: No Acute Distress, Chronically Ill - Head Exam Head Exam: ATRAUMATIC, NORMOCEPHALIC - Eye Exam Eye Exam: PERRL - ENT Exam ENT Exam: Mucous Membranes Moist, Normal Exam - Neck Exam Neck Exam: Full ROM, Normal Inspection - Respiratory Exam Respiratory Exam: Clear to Ausculation Bilateral, NORMAL BREATHING PATTERN. absent: Rales, Wheezes - Cardiovascular Exam Cardiovascular Exam: REGULAR RHYTHM, RRR, +S1, +S2. absent: JVD - GI/Abdominal Exam GI & Abdominal Exam: Soft, Normal Bowel Sounds. absent: Distended, Guarding, Tenderness, Rebound - Rectal Exam Rectal Exam: Deferred - Extremities Exam Extremities Exam: Full ROM, Normal Capillary Refill, Normal Inspection. absent : Pedal Edema - Back Exam Back Exam: NORMAL INSPECTION - Neurological Exam Neurological Exam: Alert, Awake Additional comments: axial rigidity resting tremors - Psychiatric Exam Psychiatric exam: Agitated, Anxious, Flat Affect - Skin Skin Exam: Dry, Pallor, Warm Assessment and Plan (1) Fall Status: Resolved (2) Parkinson disease Status: Chronic (3) Thrombocytopenia Status: Chronic (4) Depression Status: Chronic (5) Hypotension Status: Chronic (6) DVT prophylaxis Status: Acute - Assessment and Plan (Free Text) Assessment: 86 y/o male with PMH Parkinsonism , Depression , has been in the hospital for almost 1 year for social reasons. Patient is not a safe discharge so is waiting for placement. SW working closely with family He is hemodynamically stable ,afebrile, agitated , anxious, confused at times Continue management for Parkinsonism
[2016-06-22] MEDS: LEVODOPA PO SCH ×3 (04:50→21:00)
[2016-06-22] MEDS: CARBIDOPA PO SCH ×3 (04:50→21:00)
--- NOTE | 2016-06-22 08:49 | CP.PCM.PN ---
Subjective - Date & Time of Evaluation Date of Evaluation: 06/22/16 Time of Evaluation: 11:30 - Subjective Subjective: complaints mainly of why he is still here knows location Objective - Vital Signs/Intake and Output Vital Signs (last 24 hours): Temp Pulse Resp BP Pulse Ox 97.5 F L 64 20 133/73 97 06/22/16 07:38 06/22/16 07:38 06/22/16 07:38 06/22/16 07:38 06/22/16 07:38 - Medications Medications: Current Medications Acetaminophen (Tylenol 325mg Tab) 650 mg PO Q6 PRN PRN Reason: Pain, Mild (1-3) Last Admin: 06/20/16 18:20 Dose: 650 mg Bethanechol Chloride (Urecholine) 50 mg PO TID [facility] Last Admin: 06/21/16 18:05 Dose: 50 mg Carbidopa/Levodopa (Rytary Er 48.75 Mg-195 Mg Cap) 1 cap PO TID@0500,1300,2100 [facility] Last Admin: 06/22/16 04:50 Dose: 1 cap Docusate Sodium (Colace) 100 mg PO BID [facility] Last Admin: 06/21/16 18:04 Dose: 100 mg Fluocinonide (Lidex 0.05% Oint) 1 applic TOP BID [facility] Last Admin: 06/21/16 18:04 Dose: 1 applic Magnesium Hydroxide (Milk Of Magnesia) 30 ml PO DAILY PRN PRN Reason: Constipation Last Admin: 06/16/16 14:48 Dose: 30 ml Midodrine (Proamatine) 10 mg PO TID [facility] Last Admin: 06/21/16 18:04 Dose: 10 mg Quetiapine Fumarate (Seroquel) 50 mg PO HS PRN PRN Reason: Agitation Last Admin: 06/17/16 12:52 Dose: 50 mg - Labs Labs: 02/19/16 05:10 02/19/16 05:10 - Constitutional Appears: Well, No Acute Distress, Confused - Head Exam Head Exam: ATRAUMATIC - Eye Exam Eye Exam: Normal appearance Additional comments: facial assymetry right frontalis - Neck Exam Neck Exam: Full ROM - Respiratory Exam Respiratory Exam: Clear to Ausculation Bilateral, NORMAL BREATHING PATTERN - Cardiovascular Exam Cardiovascular Exam: REGULAR RHYTHM, +S1, +S2. absent: Murmur - GI/Abdominal Exam GI & Abdominal Exam: Soft, Normal Bowel Sounds. absent: Tenderness - Neurological Exam Neurological Exam: Alert, Awake Additional comments: oriented x 1 - Psychiatric Exam Psychiatric exam: Depressed Assessment and Plan - Assessment and Plan (Free Text) Assessment: 86 y/o male with PMH Parkinsonism , Depression , has been in the hospital for almost 1 year for social reasons. Patient is not a safe discharge so is waiting for placement. SW working closely with family He is hemodynamically stable ,afebrile, agitated , anxious, confused at times Continue management for Parkinsonism
[2016-06-22] MEDS: Bethanechol 50 MG TAB PO SCH ×3 (09:17→16:59)
[2016-06-23] MEDS: CARBIDOPA PO SCH ×3 (05:59→20:59)
[2016-06-23] MEDS: LEVODOPA PO SCH ×3 (05:59→20:59)
--- NOTE | 2016-06-23 07:37 | CP.PCM.PN ---
Subjective - Date & Time of Evaluation Date of Evaluation: 06/23/16 Time of Evaluation: 07:37 - Subjective Subjective: confused at baseline no new complaints Objective - Vital Signs/Intake and Output Vital Signs (last 24 hours): Temp Pulse Resp BP Pulse Ox 98.1 F 67 19 107/58 L 99 06/22/16 21:45 06/22/16 21:45 06/22/16 21:45 06/22/16 21:45 06/22/16 21:45 - Medications Medications: Current Medications Acetaminophen (Tylenol 325mg Tab) 650 mg PO Q6 PRN PRN Reason: Pain, Mild (1-3) Last Admin: 06/20/16 18:20 Dose: 650 mg Bethanechol Chloride (Urecholine) 50 mg PO TID [facility] Last Admin: 06/22/16 16:59 Dose: 50 mg Carbidopa/Levodopa (Rytary Er 48.75 Mg-195 Mg Cap) 1 cap PO TID@0500,1300,2100 [facility] Last Admin: 06/23/16 05:59 Dose: 1 cap Docusate Sodium (Colace) 100 mg PO BID [facility] Last Admin: 06/22/16 16:57 Dose: 100 mg Fluocinonide (Lidex 0.05% Oint) 1 applic TOP BID [facility] Last Admin: 06/22/16 17:00 Dose: 1 applic Magnesium Hydroxide (Milk Of Magnesia) 30 ml PO DAILY PRN PRN Reason: Constipation Last Admin: 06/16/16 14:48 Dose: 30 ml Midodrine (Proamatine) 10 mg PO TID [facility] Last Admin: 06/22/16 16:59 Dose: 10 mg Quetiapine Fumarate (Seroquel) 50 mg PO HS PRN PRN Reason: Agitation Last Admin: 06/17/16 12:52 Dose: 50 mg - Labs Labs: 02/19/16 05:10 02/19/16 05:10 - Constitutional Appears: Well, Non-toxic, No Acute Distress, Confused, Chronically Ill - Respiratory Exam Respiratory Exam: Clear to Ausculation Bilateral, NORMAL BREATHING PATTERN. absent: Rales, Rhonchi, Wheezes - Cardiovascular Exam Cardiovascular Exam: REGULAR RHYTHM, +S1, +S2 - GI/Abdominal Exam GI & Abdominal Exam: Soft, Normal Bowel Sounds. absent: Tenderness - Neurological Exam Neurological Exam: Alert, Awake. absent: Oriented x3 Assessment and Plan - Assessment and Plan (Free Text) Assessment: 86 y/o male with PMH Parkinsonism , Depression , has been in the hospital for almost 1 year for social reasons. Patient is not a safe discharge so is waiting for placement. SW working closely with family He is hemodynamically stable ,afebrile, agitated , anxious, confused at times Continue management for Parkinsonism
[2016-06-23] MEDS: Bethanechol 50 MG TAB PO SCH ×3 (08:47→17:09)
[2016-06-24] MEDS: LEVODOPA PO SCH ×3 (05:12→21:35)
[2016-06-24] MEDS: CARBIDOPA PO SCH ×3 (05:12→21:35)
[2016-06-24] MEDS: Bethanechol 50 MG TAB PO SCH ×3 (09:48→16:42)
--- NOTE | 2016-06-24 21:08 | CP.PCM.PN ---
Subjective - Date & Time of Evaluation Date of Evaluation: 06/24/16 Time of Evaluation: 22:22 - Subjective Subjective: Sleeping Objective - Vital Signs/Intake and Output Vital Signs (last 24 hours): Temp Pulse Resp BP Pulse Ox 97.0 F L 82 19 135/87 97 06/24/16 16:21 06/24/16 16:21 06/24/16 16:21 06/24/16 16:21 06/24/16 16:21 - Medications Medications: Current Medications Acetaminophen (Tylenol 325mg Tab) 650 mg PO Q6 PRN PRN Reason: Pain, Mild (1-3) Last Admin: 06/20/16 18:20 Dose: 650 mg Bethanechol Chloride (Urecholine) 50 mg PO TID [facility] Last Admin: 06/24/16 16:42 Dose: 50 mg Carbidopa/Levodopa (Rytary Er 48.75 Mg-195 Mg Cap) 1 cap PO TID@0500,1300,2100 [facility] Last Admin: 06/24/16 13:55 Dose: 1 cap Docusate Sodium (Colace) 100 mg PO BID [facility] Last Admin: 06/24/16 16:43 Dose: 100 mg Fluocinonide (Lidex 0.05% Oint) 1 applic TOP BID [facility] Last Admin: 06/24/16 16:43 Dose: 1 applic Magnesium Hydroxide (Milk Of Magnesia) 30 ml PO DAILY PRN PRN Reason: Constipation Last Admin: 06/16/16 14:48 Dose: 30 ml Midodrine (Proamatine) 10 mg PO TID [facility] Last Admin: 06/24/16 16:42 Dose: 10 mg Quetiapine Fumarate (Seroquel) 50 mg PO HS PRN PRN Reason: Agitation Last Admin: 06/17/16 12:52 Dose: 50 mg - Labs Labs: 02/19/16 05:10 02/19/16 05:10 - Respiratory Exam Respiratory Exam: NORMAL BREATHING PATTERN - Cardiovascular Exam Cardiovascular Exam: REGULAR RHYTHM - GI/Abdominal Exam GI & Abdominal Exam: Normal Bowel Sounds Assessment and Plan - Assessment and Plan (Free Text) Assessment: MSA Parkinsons DX Lilia Vieira PT Rytary 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
[2016-06-25] MEDS: LEVODOPA PO SCH ×3 (04:53→21:04)
[2016-06-25] MEDS: CARBIDOPA PO SCH ×3 (04:53→21:04)
[2016-06-25] MEDS: Bethanechol 50 MG TAB PO SCH ×3 (08:54→16:50)
[2016-06-25] MEDS: Magnesium Hydroxide Susp 30 ml UD PO PRN (09:19)
[2016-06-26] MEDS: LEVODOPA PO SCH ×3 (05:16→20:48)
[2016-06-26] MEDS: CARBIDOPA PO SCH ×3 (05:16→20:48)
[2016-06-26] MEDS: Bethanechol 50 MG TAB PO SCH ×3 (08:32→17:05)
[2016-06-26] MEDS: Magnesium Hydroxide Susp 30 ml UD PO PRN (09:28)
--- NOTE | 2016-06-26 18:16 | CP.PCM.PN ---
Subjective - Date & Time of Evaluation Date of Evaluation: 06/25/16 Time of Evaluation: 22:22 - Subjective Subjective: Doing well Objective - Vital Signs/Intake and Output Vital Signs (last 24 hours): Temp Pulse Resp BP Pulse Ox 97.7 F 79 18 123/58 L 100 06/26/16 16:17 06/26/16 16:17 06/26/16 16:17 06/26/16 16:17 06/26/16 16:17 - Medications Medications: Current Medications Acetaminophen (Tylenol 325mg Tab) 650 mg PO Q6 PRN PRN Reason: Pain, Mild (1-3) Last Admin: 06/20/16 18:20 Dose: 650 mg Bethanechol Chloride (Urecholine) 50 mg PO TID [facility] Last Admin: 06/26/16 17:05 Dose: 50 mg Carbidopa/Levodopa (Rytary Er 48.75 Mg-195 Mg Cap) 1 cap PO TID@0500,1300,2100 [facility] Last Admin: 06/26/16 14:00 Dose: 1 cap Docusate Sodium (Colace) 100 mg PO BID [facility] Last Admin: 06/26/16 16:30 Dose: 100 mg Fluocinonide (Lidex 0.05% Oint) 1 applic TOP BID [facility] Last Admin: 06/26/16 16:30 Dose: 1 applic Magnesium Hydroxide (Milk Of Magnesia) 30 ml PO DAILY PRN PRN Reason: Constipation Last Admin: 06/26/16 09:28 Dose: 30 ml Midodrine (Proamatine) 10 mg PO TID [facility] Last Admin: 06/26/16 16:29 Dose: 10 mg Quetiapine Fumarate (Seroquel) 50 mg PO HS PRN PRN Reason: Agitation Last Admin: 06/17/16 12:52 Dose: 50 mg - Labs Labs: 02/19/16 05:10 02/19/16 05:10 - Respiratory Exam Respiratory Exam: NORMAL BREATHING PATTERN - Cardiovascular Exam Cardiovascular Exam: REGULAR RHYTHM - GI/Abdominal Exam GI & Abdominal Exam: Normal Bowel Sounds Assessment and Plan - Assessment and Plan (Free Text) Assessment: MSA Parkinsons DX Lilia Vieira PT Rytary 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
--- NOTE | 2016-06-26 18:17 | CP.PCM.PN ---
Subjective - Date & Time of Evaluation Date of Evaluation: 06/26/16 Time of Evaluation: 02:22 - Subjective Subjective: Above noted Objective - Vital Signs/Intake and Output Vital Signs (last 24 hours): Temp Pulse Resp BP Pulse Ox 97.7 F 79 18 123/58 L 100 06/26/16 16:17 06/26/16 16:17 06/26/16 16:17 06/26/16 16:17 06/26/16 16:17 - Medications Medications: Current Medications Acetaminophen (Tylenol 325mg Tab) 650 mg PO Q6 PRN PRN Reason: Pain, Mild (1-3) Last Admin: 06/20/16 18:20 Dose: 650 mg Bethanechol Chloride (Urecholine) 50 mg PO TID [facility] Last Admin: 06/26/16 17:05 Dose: 50 mg Carbidopa/Levodopa (Rytary Er 48.75 Mg-195 Mg Cap) 1 cap PO TID@0500,1300,2100 [facility] Last Admin: 06/26/16 14:00 Dose: 1 cap Docusate Sodium (Colace) 100 mg PO BID [facility] Last Admin: 06/26/16 16:30 Dose: 100 mg Fluocinonide (Lidex 0.05% Oint) 1 applic TOP BID [facility] Last Admin: 06/26/16 16:30 Dose: 1 applic Magnesium Hydroxide (Milk Of Magnesia) 30 ml PO DAILY PRN PRN Reason: Constipation Last Admin: 06/26/16 09:28 Dose: 30 ml Midodrine (Proamatine) 10 mg PO TID [facility] Last Admin: 06/26/16 16:29 Dose: 10 mg Quetiapine Fumarate (Seroquel) 50 mg PO HS PRN PRN Reason: Agitation Last Admin: 06/17/16 12:52 Dose: 50 mg - Labs Labs: 02/19/16 05:10 02/19/16 05:10 - Respiratory Exam Respiratory Exam: NORMAL BREATHING PATTERN - Cardiovascular Exam Cardiovascular Exam: REGULAR RHYTHM - GI/Abdominal Exam GI & Abdominal Exam: Normal Bowel Sounds Assessment and Plan - Assessment and Plan (Free Text) Assessment: MSA Parkinsons DX Lilia Vieira PT Rytary 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
[2016-06-27] MEDS: CARBIDOPA PO SCH ×3 (04:42→20:40)
[2016-06-27] MEDS: LEVODOPA PO SCH ×3 (04:42→20:40)
[2016-06-27] MEDS: Bethanechol 50 MG TAB PO SCH ×3 (08:17→16:19)
--- NOTE | 2016-06-27 14:56 | CP.PCM.PN ---
Subjective - Date & Time of Evaluation Date of Evaluation: 06/27/16 Time of Evaluation: 22:22 - Subjective Subjective: Above noted Objective - Vital Signs/Intake and Output Vital Signs (last 24 hours): Temp Pulse Resp BP Pulse Ox 97.7 F 65 20 112/58 L 97 06/27/16 09:00 06/27/16 07:32 06/27/16 07:32 06/27/16 07:32 06/27/16 07:32 - Medications Medications: Current Medications Acetaminophen (Tylenol 325mg Tab) 650 mg PO Q6 PRN PRN Reason: Pain, Mild (1-3) Last Admin: 06/20/16 18:20 Dose: 650 mg Bethanechol Chloride (Urecholine) 50 mg PO TID [facility] Last Admin: 06/27/16 14:09 Dose: 50 mg Carbidopa/Levodopa (Rytary Er 48.75 Mg-195 Mg Cap) 1 cap PO TID@0500,1300,2100 [facility] Last Admin: 06/27/16 14:09 Dose: 1 cap Docusate Sodium (Colace) 100 mg PO BID [facility] Last Admin: 06/27/16 08:17 Dose: 100 mg Fluocinonide (Lidex 0.05% Oint) 1 applic TOP BID [facility] Last Admin: 06/27/16 08:17 Dose: 1 applic Magnesium Hydroxide (Milk Of Magnesia) 30 ml PO DAILY PRN PRN Reason: Constipation Last Admin: 06/26/16 09:28 Dose: 30 ml Midodrine (Proamatine) 10 mg PO TID [facility] Last Admin: 06/27/16 14:09 Dose: 10 mg Quetiapine Fumarate (Seroquel) 50 mg PO HS PRN PRN Reason: Agitation Last Admin: 06/27/16 00:30 Dose: 50 mg - Labs Labs: 02/19/16 05:10 02/19/16 05:10 - Respiratory Exam Respiratory Exam: NORMAL BREATHING PATTERN - Cardiovascular Exam Cardiovascular Exam: REGULAR RHYTHM - GI/Abdominal Exam GI & Abdominal Exam: Normal Bowel Sounds Assessment and Plan - Assessment and Plan (Free Text) Assessment: MSA Parkinsons DX Lilia Vieira PT Rytary 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
[2016-06-28] MEDS: LEVODOPA PO SCH ×3 (04:35→21:55)
[2016-06-28] MEDS: CARBIDOPA PO SCH ×3 (04:35→21:55)
[2016-06-28] MEDS: Bethanechol 50 MG TAB PO SCH ×3 (08:55→18:18)
--- NOTE | 2016-06-28 18:12 | CP.PCM.PN ---
Subjective - Date & Time of Evaluation Date of Evaluation: 06/28/16 Time of Evaluation: 22:22 - Subjective Subjective: Above noted Objective - Vital Signs/Intake and Output Vital Signs (last 24 hours): Temp Pulse Resp BP Pulse Ox 97.3 F L 72 20 122/65 99 06/28/16 16:38 06/28/16 16:38 06/28/16 16:38 06/28/16 16:38 06/28/16 16:38 - Medications Medications: Current Medications Acetaminophen (Tylenol 325mg Tab) 650 mg PO Q6 PRN PRN Reason: Pain, Mild (1-3) Last Admin: 06/20/16 18:20 Dose: 650 mg Bethanechol Chloride (Urecholine) 50 mg PO TID [facility] Last Admin: 06/28/16 12:54 Dose: 50 mg Carbidopa/Levodopa (Rytary Er 48.75 Mg-195 Mg Cap) 1 cap PO TID@0500,1300,2100 [facility] Last Admin: 06/28/16 12:54 Dose: 1 cap Docusate Sodium (Colace) 100 mg PO BID [facility] Last Admin: 06/28/16 08:54 Dose: 100 mg Fluocinonide (Lidex 0.05% Oint) 1 applic TOP BID [facility] Last Admin: 06/28/16 08:54 Dose: 1 applic Magnesium Hydroxide (Milk Of Magnesia) 30 ml PO DAILY PRN PRN Reason: Constipation Last Admin: 06/26/16 09:28 Dose: 30 ml Midodrine (Proamatine) 10 mg PO TID [facility] Last Admin: 06/28/16 12:53 Dose: 10 mg Quetiapine Fumarate (Seroquel) 50 mg PO HS PRN PRN Reason: Agitation Last Admin: 06/27/16 00:30 Dose: 50 mg - Labs Labs: 02/19/16 05:10 02/19/16 05:10 - Respiratory Exam Respiratory Exam: NORMAL BREATHING PATTERN - Cardiovascular Exam Cardiovascular Exam: REGULAR RHYTHM - GI/Abdominal Exam GI & Abdominal Exam: Normal Bowel Sounds Assessment and Plan - Assessment and Plan (Free Text) Assessment: MSA Parkinsons DX Lilia Vieira PT Rytary 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
[2016-06-29] MEDS: LEVODOPA PO SCH ×3 (05:45→21:15)
[2016-06-29] MEDS: CARBIDOPA PO SCH ×3 (05:45→21:15)
[2016-06-29] MEDS: Bethanechol 50 MG TAB PO SCH ×3 (09:26→17:11)
--- NOTE | 2016-06-29 23:05 | CP.PCM.PN ---
Subjective - Date & Time of Evaluation Date of Evaluation: 06/29/16 Time of Evaluation: 22:22 - Subjective Subjective: Resting in bed Objective - Vital Signs/Intake and Output Vital Signs (last 24 hours): Temp Pulse Resp BP Pulse Ox 97.9 F 78 20 135/89 98 06/29/16 17:10 06/29/16 17:10 06/29/16 17:10 06/29/16 17:10 06/29/16 17:10 - Medications Medications: Current Medications Acetaminophen (Tylenol 325mg Tab) 650 mg PO Q6 PRN PRN Reason: Pain, Mild (1-3) Last Admin: 06/28/16 18:20 Dose: 650 mg Bethanechol Chloride (Urecholine) 50 mg PO TID [facility] Last Admin: 06/29/16 17:11 Dose: 50 mg Carbidopa/Levodopa (Rytary Er 48.75 Mg-195 Mg Cap) 1 cap PO TID@0500,1300,2100 [facility] Last Admin: 06/29/16 21:15 Dose: 1 cap Docusate Sodium (Colace) 100 mg PO BID [facility] Last Admin: 06/29/16 17:10 Dose: 100 mg Fluocinonide (Lidex 0.05% Oint) 1 applic TOP BID [facility] Last Admin: 06/29/16 17:10 Dose: 1 applic Magnesium Hydroxide (Milk Of Magnesia) 30 ml PO DAILY PRN PRN Reason: Constipation Last Admin: 06/26/16 09:28 Dose: 30 ml Midodrine (Proamatine) 10 mg PO TID [facility] Last Admin: 06/29/16 17:11 Dose: 10 mg Quetiapine Fumarate (Seroquel) 50 mg PO HS PRN PRN Reason: Agitation Last Admin: 06/27/16 00:30 Dose: 50 mg - Labs Labs: 02/19/16 05:10 02/19/16 05:10 - Respiratory Exam Respiratory Exam: NORMAL BREATHING PATTERN - Cardiovascular Exam Cardiovascular Exam: REGULAR RHYTHM - GI/Abdominal Exam GI & Abdominal Exam: Normal Bowel Sounds Assessment and Plan - Assessment and Plan (Free Text) Assessment: MSA Parkinsons DX Lilia Vieira PT Rytary 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
[2016-06-30] MEDS: CARBIDOPA PO SCH ×3 (05:22→21:27)
[2016-06-30] MEDS: LEVODOPA PO SCH ×3 (05:22→21:27)
[2016-06-30] MEDS: Bethanechol 50 MG TAB PO SCH ×3 (09:09→16:05)
[2016-06-30] MEDS: Magnesium Hydroxide Susp 30 ml UD PO PRN (11:01)
--- NOTE | 2016-06-30 14:07 | CP.PCM.PN ---
Subjective - Date & Time of Evaluation Date of Evaluation: 06/30/16 Time of Evaluation: 22:22 - Subjective Subjective: Sitting in chair Objective - Vital Signs/Intake and Output Vital Signs (last 24 hours): Temp Pulse Resp BP Pulse Ox 97.2 F L 70 18 110/64 96 06/30/16 08:10 06/30/16 08:10 06/30/16 08:10 06/30/16 08:10 06/30/16 08:10 - Medications Medications: Current Medications Acetaminophen (Tylenol 325mg Tab) 650 mg PO Q6 PRN PRN Reason: Pain, Mild (1-3) Last Admin: 06/28/16 18:20 Dose: 650 mg Bethanechol Chloride (Urecholine) 50 mg PO TID [facility] Last Admin: 06/30/16 12:08 Dose: 50 mg Carbidopa/Levodopa (Rytary Er 48.75 Mg-195 Mg Cap) 1 cap PO TID@0500,1300,2100 [facility] Last Admin: 06/30/16 12:08 Dose: 1 cap Docusate Sodium (Colace) 100 mg PO BID [facility] Last Admin: 06/30/16 09:08 Dose: 100 mg Fluocinonide (Lidex 0.05% Oint) 1 applic TOP BID [facility] Last Admin: 06/30/16 11:00 Dose: Not Given Magnesium Hydroxide (Milk Of Magnesia) 30 ml PO DAILY PRN PRN Reason: Constipation Last Admin: 06/30/16 11:01 Dose: 30 ml Midodrine (Proamatine) 10 mg PO TID [facility] Last Admin: 06/30/16 12:07 Dose: 10 mg Quetiapine Fumarate (Seroquel) 50 mg PO HS PRN PRN Reason: Agitation Last Admin: 06/27/16 00:30 Dose: 50 mg - Labs Labs: 02/19/16 05:10 02/19/16 05:10 - Respiratory Exam Respiratory Exam: NORMAL BREATHING PATTERN - Cardiovascular Exam Cardiovascular Exam: REGULAR RHYTHM - GI/Abdominal Exam GI & Abdominal Exam: Normal Bowel Sounds Assessment and Plan - Assessment and Plan (Free Text) Assessment: MSA Parkinsons DX Lilia Vieira PT Rytary 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 awaiting transfer to [place] Pt is competent Social service and family involved Pt is [place] WW[place] R shoulder pain Dec ROM xrays subluxation Ultram PRN PT Constipation Improved Anemia normochromic normocytic 2 to chronic dx Decubitus ulcer buttocks DVT prophylaxis SCD (no Lovenox due to thrombocytopenia) S/P UTI Enterrococus S/P Urinary retention S/P UTI Proteus S/P Pnuemonia S/P Hypotension INFORMATION RESOURCE CONSULTANT 2 to Dehydration Meds
[2016-07-01] MEDS: LEVODOPA PO SCH ×3 (04:56→21:09)
[2016-07-01] MEDS: CARBIDOPA PO SCH ×3 (04:56→21:09)
[2016-07-01] MEDS: Bethanechol 50 MG TAB PO SCH ×3 (08:48→16:38)
--- NOTE | 2016-07-01 20:41 | CP.PCM.PN ---
Subjective - Date & Time of Evaluation Date of Evaluation: 07/01/16 Time of Evaluation: 22:22 - Subjective Subjective: Above noted Objective - Vital Signs/Intake and Output Vital Signs (last 24 hours): Temp Pulse Resp BP Pulse Ox 97 F L 81 18 145/75 95 07/01/16 16:43 07/01/16 16:43 07/01/16 16:43 07/01/16 16:43 07/01/16 16:43 - Medications Medications: Current Medications Acetaminophen (Tylenol 325mg Tab) 650 mg PO Q6 PRN PRN Reason: Pain, Mild (1-3) Last Admin: 06/28/16 18:20 Dose: 650 mg Bethanechol Chloride (Urecholine) 50 mg PO TID [facility] Last Admin: 07/01/16 16:38 Dose: 50 mg Carbidopa/Levodopa (Rytary Er 48.75 Mg-195 Mg Cap) 1 cap PO TID@0500,1300,2100 [facility] Last Admin: 07/01/16 13:34 Dose: 1 cap Docusate Sodium (Colace) 100 mg PO BID [facility] Last Admin: 07/01/16 16:37 Dose: 100 mg Fluocinonide (Lidex 0.05% Oint) 1 applic TOP BID [facility] Last Admin: 07/01/16 16:37 Dose: 1 applic Magnesium Hydroxide (Milk Of Magnesia) 30 ml PO DAILY PRN PRN Reason: Constipation Last Admin: 06/30/16 11:01 Dose: 30 ml Midodrine (Proamatine) 10 mg PO TID [facility] Last Admin: 07/01/16 16:38 Dose: 10 mg Quetiapine Fumarate (Seroquel) 50 mg PO HS PRN PRN Reason: Agitation Last Admin: 06/27/16 00:30 Dose: 50 mg - Labs Labs: 02/19/16 05:10 02/19/16 05:10 - Respiratory Exam Respiratory Exam: NORMAL BREATHING PATTERN - Cardiovascular Exam Cardiovascular Exam: REGULAR RHYTHM - GI/Abdominal Exam GI & Abdominal Exam: Normal Bowel Sounds Assessment and Plan - Assessment and Plan (Free Text) Assessment: MSA Parkinsons DX Lilia Vieira PT Rytary 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
[2016-07-02] MEDS: CARBIDOPA PO SCH ×3 (04:48→21:00)
[2016-07-02] MEDS: LEVODOPA PO SCH ×3 (04:48→21:00)
[2016-07-02] MEDS: Bethanechol 50 MG TAB PO SCH ×3 (09:08→18:09)
--- NOTE | 2016-07-02 21:40 | CP.PCM.PN ---
Subjective - Date & Time of Evaluation Date of Evaluation: 07/02/16 Time of Evaluation: 22:22 - Subjective Subjective: Doing well Objective - Vital Signs/Intake and Output Vital Signs (last 24 hours): Temp Pulse Resp BP Pulse Ox 97 F L 72 18 140/80 97 07/02/16 16:00 07/02/16 16:00 07/02/16 16:00 07/02/16 16:00 07/02/16 16:00 - Medications Medications: Current Medications Acetaminophen (Tylenol 325mg Tab) 650 mg PO Q6 PRN PRN Reason: Pain, Mild (1-3) Last Admin: 06/28/16 18:20 Dose: 650 mg Bethanechol Chloride (Urecholine) 50 mg PO TID [facility] Last Admin: 07/02/16 18:09 Dose: 50 mg Carbidopa/Levodopa (Rytary Er 48.75 Mg-195 Mg Cap) 1 cap PO TID@0500,1300,2100 [facility] Last Admin: 07/02/16 21:00 Dose: 1 cap Docusate Sodium (Colace) 100 mg PO BID [facility] Last Admin: 07/02/16 18:09 Dose: 100 mg Fluocinonide (Lidex 0.05% Oint) 1 applic TOP BID [facility] Last Admin: 07/02/16 18:09 Dose: 1 applic Magnesium Hydroxide (Milk Of Magnesia) 30 ml PO DAILY PRN PRN Reason: Constipation Last Admin: 06/30/16 11:01 Dose: 30 ml Midodrine (Proamatine) 10 mg PO TID [facility] Last Admin: 07/02/16 18:08 Dose: 10 mg Quetiapine Fumarate (Seroquel) 50 mg PO HS PRN PRN Reason: Agitation Last Admin: 06/27/16 00:30 Dose: 50 mg - Labs Labs: 02/19/16 05:10 02/19/16 05:10 - Respiratory Exam Respiratory Exam: NORMAL BREATHING PATTERN - Cardiovascular Exam Cardiovascular Exam: REGULAR RHYTHM - GI/Abdominal Exam GI & Abdominal Exam: Normal Bowel Sounds Assessment and Plan - Assessment and Plan (Free Text) Assessment: MSA Parkinsons DX Lilia Vieira PT Rytary 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
[2016-07-03] MEDS: LEVODOPA PO SCH ×3 (05:36→21:23)
[2016-07-03] MEDS: CARBIDOPA PO SCH ×3 (05:36→21:23)
[2016-07-03] MEDS: Bethanechol 50 MG TAB PO SCH ×3 (08:39→16:02)
--- NOTE | 2016-07-03 19:56 | CP.PCM.PN ---
Subjective - Date & Time of Evaluation Date of Evaluation: 07/03/16 Time of Evaluation: 22:22 - Subjective Subjective: No change Objective - Vital Signs/Intake and Output Vital Signs (last 24 hours): Temp Pulse Resp BP Pulse Ox 97.5 F L 92 H 20 135/89 99 07/03/16 16:50 07/03/16 16:50 07/03/16 16:50 07/03/16 16:49 07/03/16 16:50 - Medications Medications: Current Medications Acetaminophen (Tylenol 325mg Tab) 650 mg PO Q6 PRN PRN Reason: Pain, Mild (1-3) Last Admin: 06/28/16 18:20 Dose: 650 mg Bethanechol Chloride (Urecholine) 50 mg PO TID [facility] Last Admin: 07/03/16 16:02 Dose: 50 mg Carbidopa/Levodopa (Rytary Er 48.75 Mg-195 Mg Cap) 1 cap PO TID@0500,1300,2100 [facility] Last Admin: 07/03/16 12:03 Dose: 1 cap Docusate Sodium (Colace) 100 mg PO BID [facility] Last Admin: 07/03/16 16:02 Dose: 100 mg Fluocinonide (Lidex 0.05% Oint) 1 applic TOP BID [facility] Last Admin: 07/03/16 16:03 Dose: 1 applic Magnesium Hydroxide (Milk Of Magnesia) 30 ml PO DAILY PRN PRN Reason: Constipation Last Admin: 06/30/16 11:01 Dose: 30 ml Midodrine (Proamatine) 10 mg PO TID [facility] Last Admin: 07/03/16 16:02 Dose: 10 mg Quetiapine Fumarate (Seroquel) 50 mg PO HS PRN PRN Reason: Agitation Last Admin: 06/27/16 00:30 Dose: 50 mg - Labs Labs: 02/19/16 05:10 02/19/16 05:10 - Respiratory Exam Respiratory Exam: NORMAL BREATHING PATTERN - Cardiovascular Exam Cardiovascular Exam: REGULAR RHYTHM - GI/Abdominal Exam GI & Abdominal Exam: Normal Bowel Sounds Assessment and Plan - Assessment and Plan (Free Text) Assessment: MSA Parkinsons DX Lilia Vieira PT Rytary 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
[2016-07-04] MEDS: LEVODOPA PO SCH ×3 (05:19→21:23)
[2016-07-04] MEDS: CARBIDOPA PO SCH ×3 (05:19→21:23)
[2016-07-04] MEDS: Bethanechol 50 MG TAB PO SCH ×3 (08:29→16:42)
--- NOTE | 2016-07-04 20:31 | CP.PCM.PN ---
Subjective - Date & Time of Evaluation Date of Evaluation: 07/04/16 Time of Evaluation: 22:22 - Subjective Subjective: Above noted Objective - Vital Signs/Intake and Output Vital Signs (last 24 hours): Temp Pulse Resp BP Pulse Ox 97.7 F 78 20 126/75 100 07/04/16 20:22 07/04/16 20:22 07/04/16 20:22 07/04/16 20:22 07/04/16 20:22 - Medications Medications: Current Medications Acetaminophen (Tylenol 325mg Tab) 650 mg PO Q6 PRN PRN Reason: Pain, Mild (1-3) Last Admin: 06/28/16 18:20 Dose: 650 mg Bethanechol Chloride (Urecholine) 50 mg PO TID [facility] Last Admin: 07/04/16 16:42 Dose: 50 mg Carbidopa/Levodopa (Rytary Er 48.75 Mg-195 Mg Cap) 1 cap PO TID@0500,1300,2100 [facility] Last Admin: 07/04/16 13:31 Dose: 1 cap Docusate Sodium (Colace) 100 mg PO BID [facility] Last Admin: 07/04/16 16:42 Dose: 100 mg Fluocinonide (Lidex 0.05% Oint) 1 applic TOP BID [facility] Last Admin: 07/04/16 16:43 Dose: 1 applic Magnesium Hydroxide (Milk Of Magnesia) 30 ml PO DAILY PRN PRN Reason: Constipation Last Admin: 06/30/16 11:01 Dose: 30 ml Midodrine (Proamatine) 10 mg PO TID [facility] Last Admin: 07/04/16 16:43 Dose: 10 mg Quetiapine Fumarate (Seroquel) 50 mg PO HS PRN PRN Reason: Agitation Last Admin: 07/04/16 08:29 Dose: 50 mg - Labs Labs: 02/19/16 05:10 02/19/16 05:10 - Respiratory Exam Respiratory Exam: NORMAL BREATHING PATTERN - Cardiovascular Exam Cardiovascular Exam: REGULAR RHYTHM - GI/Abdominal Exam GI & Abdominal Exam: Normal Bowel Sounds Assessment and Plan - Assessment and Plan (Free Text) Assessment: MSA Parkinsons DX Lilia Vieira PT Rytary 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
[2016-07-05] MEDS: LEVODOPA PO SCH ×3 (06:00→21:58)
[2016-07-05] MEDS: CARBIDOPA PO SCH ×3 (06:00→21:58)
[2016-07-05] MEDS: Bethanechol 50 MG TAB PO SCH ×3 (08:53→16:32)
--- NOTE | 2016-07-05 18:25 | CP.PCM.PN ---
Subjective - Date & Time of Evaluation Date of Evaluation: 07/05/16 Time of Evaluation: 22:22 - Subjective Subjective: Doing well Objective - Vital Signs/Intake and Output Vital Signs (last 24 hours): Temp Pulse Resp BP Pulse Ox 97 F L 69 18 110/59 L 98 07/05/16 16:21 07/05/16 16:21 07/05/16 16:21 07/05/16 16:21 07/05/16 16:21 - Medications Medications: Current Medications Acetaminophen (Tylenol 325mg Tab) 650 mg PO Q6 PRN PRN Reason: Pain, Mild (1-3) Last Admin: 06/28/16 18:20 Dose: 650 mg Bethanechol Chloride (Urecholine) 50 mg PO TID [facility] Last Admin: 07/05/16 16:32 Dose: 50 mg Carbidopa/Levodopa (Rytary Er 48.75 Mg-195 Mg Cap) 1 cap PO TID@0500,1300,2100 [facility] Last Admin: 07/05/16 13:22 Dose: 1 cap Docusate Sodium (Colace) 100 mg PO BID [facility] Last Admin: 07/05/16 16:32 Dose: 100 mg Fluocinonide (Lidex 0.05% Oint) 1 applic TOP BID [facility] Last Admin: 07/05/16 16:33 Dose: 1 applic Magnesium Hydroxide (Milk Of Magnesia) 30 ml PO DAILY PRN PRN Reason: Constipation Last Admin: 06/30/16 11:01 Dose: 30 ml Midodrine (Proamatine) 10 mg PO TID [facility] Last Admin: 07/05/16 16:32 Dose: 10 mg Quetiapine Fumarate (Seroquel) 50 mg PO HS PRN PRN Reason: Agitation Last Admin: 07/05/16 08:53 Dose: 50 mg - Labs Labs: 02/19/16 05:10 02/19/16 05:10 - Respiratory Exam Respiratory Exam: NORMAL BREATHING PATTERN - Cardiovascular Exam Cardiovascular Exam: REGULAR RHYTHM - GI/Abdominal Exam GI & Abdominal Exam: Normal Bowel Sounds Assessment and Plan - Assessment and Plan (Free Text) Assessment: MSA Parkinsons DX Lilia Vieira PT Rytary 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
[2016-07-06] MEDS: LEVODOPA PO SCH ×3 (05:13→22:04)
[2016-07-06] MEDS: CARBIDOPA PO SCH ×3 (05:13→22:04)
[2016-07-06] MEDS: Bethanechol 50 MG TAB PO SCH ×3 (09:23→16:44)
--- NOTE | 2016-07-06 23:39 | CP.PCM.PN ---
Subjective - Date & Time of Evaluation Date of Evaluation: 07/06/16 Time of Evaluation: 22:22 - Subjective Subjective: Doing well Objective - Vital Signs/Intake and Output Vital Signs (last 24 hours): Temp Pulse Resp BP Pulse Ox 97.3 F L 74 18 130/77 95 07/06/16 23:26 07/06/16 23:26 07/06/16 23:26 07/06/16 23:26 07/06/16 23:26 - Medications Medications: Current Medications Acetaminophen (Tylenol 325mg Tab) 650 mg PO Q6 PRN PRN Reason: Pain, Mild (1-3) Last Admin: 06/28/16 18:20 Dose: 650 mg Bethanechol Chloride (Urecholine) 50 mg PO TID [facility] Last Admin: 07/06/16 16:44 Dose: 50 mg Carbidopa/Levodopa (Rytary Er 48.75 Mg-195 Mg Cap) 1 cap PO TID@0500,1300,2100 [facility] Last Admin: 07/06/16 22:04 Dose: 1 cap Docusate Sodium (Colace) 100 mg PO BID [facility] Last Admin: 07/06/16 16:44 Dose: 100 mg Fluocinonide (Lidex 0.05% Oint) 1 applic TOP BID [facility] Last Admin: 07/06/16 16:45 Dose: 1 applic Magnesium Hydroxide (Milk Of Magnesia) 30 ml PO DAILY PRN PRN Reason: Constipation Last Admin: 06/30/16 11:01 Dose: 30 ml Midodrine (Proamatine) 10 mg PO TID [facility] Last Admin: 07/06/16 16:45 Dose: 10 mg Quetiapine Fumarate (Seroquel) 50 mg PO HS PRN PRN Reason: Agitation Last Admin: 07/05/16 08:53 Dose: 50 mg - Labs Labs: 02/19/16 05:10 02/19/16 05:10 - Respiratory Exam Respiratory Exam: NORMAL BREATHING PATTERN - Cardiovascular Exam Cardiovascular Exam: REGULAR RHYTHM - GI/Abdominal Exam GI & Abdominal Exam: Normal Bowel Sounds Assessment and Plan - Assessment and Plan (Free Text) Assessment: MSA Parkinsons DX Lilia Vieira PT Rytary 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
[2016-07-07] MEDS: CARBIDOPA PO SCH ×3 (05:06→20:59)
[2016-07-07] MEDS: LEVODOPA PO SCH ×3 (05:06→20:59)
[2016-07-07] MEDS: Bethanechol 50 MG TAB PO SCH ×3 (08:58→16:45)
--- NOTE | 2016-07-07 20:50 | CP.PCM.PN ---
Subjective - Date & Time of Evaluation Date of Evaluation: 07/07/16 Time of Evaluation: 22:22 - Subjective Subjective: No change in status Objective - Vital Signs/Intake and Output Vital Signs (last 24 hours): Temp Pulse Resp BP Pulse Ox 98.1 F 69 20 126/89 99 07/07/16 16:42 07/07/16 16:42 07/07/16 16:42 07/07/16 16:42 07/07/16 16:42 - Medications Medications: Current Medications Acetaminophen (Tylenol 325mg Tab) 650 mg PO Q6 PRN PRN Reason: Pain, Mild (1-3) Last Admin: 07/07/16 17:01 Dose: 650 mg Bethanechol Chloride (Urecholine) 50 mg PO TID [facility] Last Admin: 07/07/16 16:45 Dose: 50 mg Carbidopa/Levodopa (Rytary Er 48.75 Mg-195 Mg Cap) 1 cap PO TID@0500,1300,2100 [facility] Last Admin: 07/07/16 13:41 Dose: 1 cap Docusate Sodium (Colace) 100 mg PO BID [facility] Last Admin: 07/07/16 16:45 Dose: 100 mg Fluocinonide (Lidex 0.05% Oint) 1 applic TOP BID [facility] Last Admin: 07/07/16 16:45 Dose: 1 applic Magnesium Hydroxide (Milk Of Magnesia) 30 ml PO DAILY PRN PRN Reason: Constipation Last Admin: 06/30/16 11:01 Dose: 30 ml Midodrine (Proamatine) 10 mg PO TID [facility] Last Admin: 07/07/16 16:45 Dose: 10 mg Quetiapine Fumarate (Seroquel) 50 mg PO HS PRN PRN Reason: Agitation Last Admin: 07/05/16 08:53 Dose: 50 mg - Labs Labs: 02/19/16 05:10 02/19/16 05:10 - Respiratory Exam Respiratory Exam: NORMAL BREATHING PATTERN - Cardiovascular Exam Cardiovascular Exam: REGULAR RHYTHM - GI/Abdominal Exam GI & Abdominal Exam: Normal Bowel Sounds Assessment and Plan - Assessment and Plan (Free Text) Assessment: MSA Parkinsons DX Lilia Vieira PT Rytary 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
[2016-07-08] MEDS: CARBIDOPA PO SCH ×3 (05:19→20:48)
[2016-07-08] MEDS: LEVODOPA PO SCH ×3 (05:19→20:48)
[2016-07-08] MEDS: Bethanechol 50 MG TAB PO SCH ×3 (08:54→17:26)
--- NOTE | 2016-07-08 21:47 | CP.PCM.PN ---
Subjective - Date & Time of Evaluation Date of Evaluation: 07/08/16 Time of Evaluation: 22:22 - Subjective Subjective: Doing well Objective - Vital Signs/Intake and Output Vital Signs (last 24 hours): Temp Pulse Resp BP Pulse Ox 96.8 F L 74 18 126/68 94 L 07/08/16 17:06 07/08/16 17:06 07/08/16 17:06 07/08/16 17:06 07/08/16 17:06 - Medications Medications: Current Medications Acetaminophen (Tylenol 325mg Tab) 650 mg PO Q6 PRN PRN Reason: Pain, Mild (1-3) Last Admin: 07/07/16 17:01 Dose: 650 mg Bethanechol Chloride (Urecholine) 50 mg PO TID [facility] Last Admin: 07/08/16 17:26 Dose: 50 mg Carbidopa/Levodopa (Rytary Er 48.75 Mg-195 Mg Cap) 1 cap PO TID@0500,1300,2100 [facility] Last Admin: 07/08/16 20:48 Dose: 1 cap Docusate Sodium (Colace) 100 mg PO BID [facility] Last Admin: 07/08/16 17:25 Dose: 100 mg Fluocinonide (Lidex 0.05% Oint) 1 applic TOP BID [facility] Last Admin: 07/08/16 17:26 Dose: 1 applic Magnesium Hydroxide (Milk Of Magnesia) 30 ml PO DAILY PRN PRN Reason: Constipation Last Admin: 06/30/16 11:01 Dose: 30 ml Midodrine (Proamatine) 10 mg PO TID [facility] Last Admin: 07/08/16 17:26 Dose: 10 mg Quetiapine Fumarate (Seroquel) 50 mg PO HS PRN PRN Reason: Agitation Last Admin: 07/05/16 08:53 Dose: 50 mg - Labs Labs: 02/19/16 05:10 02/19/16 05:10 - Respiratory Exam Respiratory Exam: NORMAL BREATHING PATTERN - Cardiovascular Exam Cardiovascular Exam: REGULAR RHYTHM - GI/Abdominal Exam GI & Abdominal Exam: Normal Bowel Sounds Assessment and Plan - Assessment and Plan (Free Text) Assessment: MSA Parkinsons DX Lilia Vieira PT Rytary 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
[2016-07-09] MEDS: LEVODOPA PO SCH ×3 (05:10→21:02)
[2016-07-09] MEDS: CARBIDOPA PO SCH ×3 (05:10→21:02)
[2016-07-09] MEDS: Bethanechol 50 MG TAB PO SCH ×3 (08:13→16:10)
--- NOTE | 2016-07-09 20:48 | CP.PCM.PN ---
Subjective - Date & Time of Evaluation Date of Evaluation: 07/09/16 Time of Evaluation: 22:22 - Subjective Subjective: No change Objective - Vital Signs/Intake and Output Vital Signs (last 24 hours): Temp Pulse Resp BP Pulse Ox 96.3 F L 73 18 140/88 98 07/09/16 16:40 07/09/16 16:40 07/09/16 16:40 07/09/16 16:40 07/09/16 16:40 - Medications Medications: Current Medications Acetaminophen (Tylenol 325mg Tab) 650 mg PO Q6 PRN PRN Reason: Pain, Mild (1-3) Last Admin: 07/07/16 17:01 Dose: 650 mg Bethanechol Chloride (Urecholine) 50 mg PO TID [facility] Last Admin: 07/09/16 16:10 Dose: 50 mg Carbidopa/Levodopa (Rytary Er 48.75 Mg-195 Mg Cap) 1 cap PO TID@0500,1300,2100 [facility] Last Admin: 07/09/16 12:42 Dose: 1 cap Docusate Sodium (Colace) 100 mg PO BID [facility] Last Admin: 07/09/16 16:09 Dose: 100 mg Fluocinonide (Lidex 0.05% Oint) 1 applic TOP BID [facility] Last Admin: 07/09/16 16:10 Dose: 1 applic Magnesium Hydroxide (Milk Of Magnesia) 30 ml PO DAILY PRN PRN Reason: Constipation Last Admin: 06/30/16 11:01 Dose: 30 ml Midodrine (Proamatine) 10 mg PO TID [facility] Last Admin: 07/09/16 16:09 Dose: 10 mg Quetiapine Fumarate (Seroquel) 50 mg PO HS PRN PRN Reason: Agitation Last Admin: 07/05/16 08:53 Dose: 50 mg - Labs Labs: 02/19/16 05:10 02/19/16 05:10 - Respiratory Exam Respiratory Exam: NORMAL BREATHING PATTERN - Cardiovascular Exam Cardiovascular Exam: REGULAR RHYTHM - GI/Abdominal Exam GI & Abdominal Exam: Normal Bowel Sounds Assessment and Plan - Assessment and Plan (Free Text) Assessment: MSA Parkinsons DX Lilia Vieira PT Rytary 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
[2016-07-10] MEDS: CARBIDOPA PO SCH ×3 (05:20→21:19)
[2016-07-10] MEDS: LEVODOPA PO SCH ×3 (05:20→21:19)
[2016-07-10] MEDS: Bethanechol 50 MG TAB PO SCH ×3 (08:29→16:00)
--- NOTE | 2016-07-10 18:18 | CP.PCM.PN ---
Subjective - Date & Time of Evaluation Date of Evaluation: 07/10/16 Time of Evaluation: 22:22 - Subjective Subjective: Sitting in chair Objective - Vital Signs/Intake and Output Vital Signs (last 24 hours): Temp Pulse Resp BP Pulse Ox 98.2 F 98 H 20 101/52 L 98 07/10/16 16:50 07/10/16 16:50 07/10/16 16:50 07/10/16 16:50 07/10/16 16:50 - Medications Medications: Current Medications Acetaminophen (Tylenol 325mg Tab) 650 mg PO Q6 PRN PRN Reason: Pain, Mild (1-3) Last Admin: 07/07/16 17:01 Dose: 650 mg Bethanechol Chloride (Urecholine) 50 mg PO TID [facility] Last Admin: 07/10/16 16:00 Dose: 50 mg Carbidopa/Levodopa (Rytary Er 48.75 Mg-195 Mg Cap) 1 cap PO TID@0500,1300,2100 [facility] Last Admin: 07/10/16 13:21 Dose: 1 cap Docusate Sodium (Colace) 100 mg PO BID [facility] Last Admin: 07/10/16 16:00 Dose: 100 mg Fluocinonide (Lidex 0.05% Oint) 1 applic TOP BID [facility] Last Admin: 07/10/16 16:00 Dose: 1 applic Magnesium Hydroxide (Milk Of Magnesia) 30 ml PO DAILY PRN PRN Reason: Constipation Last Admin: 06/30/16 11:01 Dose: 30 ml Midodrine (Proamatine) 10 mg PO TID [facility] Last Admin: 07/10/16 16:00 Dose: 10 mg Quetiapine Fumarate (Seroquel) 50 mg PO HS PRN PRN Reason: Agitation Last Admin: 07/05/16 08:53 Dose: 50 mg - Labs Labs: 02/19/16 05:10 02/19/16 05:10 - Respiratory Exam Respiratory Exam: NORMAL BREATHING PATTERN - Cardiovascular Exam Cardiovascular Exam: REGULAR RHYTHM - GI/Abdominal Exam GI & Abdominal Exam: Normal Bowel Sounds Assessment and Plan - Assessment and Plan (Free Text) Assessment: MSA Parkinsons DX Lilia Wrayer PT Rytary 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
[2016-07-11] MEDS: CARBIDOPA PO SCH ×3 (05:20→20:52)
[2016-07-11] MEDS: LEVODOPA PO SCH ×3 (05:20→20:52)
[2016-07-11] MEDS: Bethanechol 50 MG TAB PO SCH ×3 (09:02→17:43)
[2016-07-11 11:23] LABS: HEMOGLOBIN 13.6 g/dL (12.0-18.0); MEAN CELL VOLUME 93.9 fl (80.0-94.0); MEAN CORPUSCULAR HEMOGLOBIN 31.7 pg (27.0-31.0); MEAN CORPUSCULAR HGB CONC 33.8 g/dL (33.0-37.0); RBC 4.3 Mil/uL (4.40-5.90); RED CELL DISTRIBUTION WIDTH 13.8 % (11.5-14.5)
[2016-07-11 11:34] LABS: ALB/GLOB RATIO 1.3 (1.0-2.1); ALBUMIN 4.4 g/dL (3.5-5.0); ALT/SGPT 16 U/L (21-72); AST/SGOT 24 U/L (17-59); BLOOD UREA NITROGEN 29 mg/dl (9-20); CALCIUM 9.7 mg/dL (8.4-10.2); GFR AFRICAN-AMERICAN > 60; GFR NON-AFRICAN AMERICAN > 60
--- NOTE | 2016-07-11 20:30 | CP.PCM.PN ---
Subjective - Date & Time of Evaluation Date of Evaluation: 07/11/16 Time of Evaluation: 22:22 - Subjective Subjective: Resting in bed Objective - Vital Signs/Intake and Output Vital Signs (last 24 hours): Temp Pulse Resp BP Pulse Ox 97.1 F L 75 20 142/74 99 07/11/16 16:32 07/11/16 16:32 07/11/16 16:32 07/11/16 16:32 07/11/16 16:32 - Medications Medications: Current Medications Acetaminophen (Tylenol 325mg Tab) 650 mg PO Q6 PRN PRN Reason: Pain, Mild (1-3) Last Admin: 07/07/16 17:01 Dose: 650 mg Bethanechol Chloride (Urecholine) 50 mg PO TID [facility] Last Admin: 07/11/16 17:43 Dose: 50 mg Carbidopa/Levodopa (Rytary Er 48.75 Mg-195 Mg Cap) 1 cap PO TID@0500,1300,2100 [facility] Last Admin: 07/11/16 12:35 Dose: 1 cap Docusate Sodium (Colace) 100 mg PO BID [facility] Last Admin: 07/11/16 17:43 Dose: 100 mg Fluocinonide (Lidex 0.05% Oint) 1 applic TOP BID [facility] Last Admin: 07/11/16 17:43 Dose: 1 applic Magnesium Hydroxide (Milk Of Magnesia) 30 ml PO DAILY PRN PRN Reason: Constipation Last Admin: 06/30/16 11:01 Dose: 30 ml Midodrine (Proamatine) 10 mg PO TID [facility] Last Admin: 07/11/16 17:43 Dose: 10 mg Quetiapine Fumarate (Seroquel) 50 mg PO HS PRN PRN Reason: Agitation Last Admin: 07/05/16 08:53 Dose: 50 mg - Labs Labs: 07/11/16 10:50 07/11/16 10:50 - Respiratory Exam Respiratory Exam: NORMAL BREATHING PATTERN - Cardiovascular Exam Cardiovascular Exam: REGULAR RHYTHM - GI/Abdominal Exam GI & Abdominal Exam: Normal Bowel Sounds Assessment and Plan - Assessment and Plan (Free Text) Assessment: MSA Parkinsons DX Lilai Vieira PT Rytary 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
[2016-07-12] MEDS: CARBIDOPA PO SCH ×3 (04:59→20:35)
[2016-07-12] MEDS: LEVODOPA PO SCH ×3 (04:59→20:35)
[2016-07-12] MEDS: Bethanechol 50 MG TAB PO SCH ×3 (09:27→17:56)
--- NOTE | 2016-07-12 13:47 | CP.PCM.PN ---
Subjective - Date & Time of Evaluation Date of Evaluation: 07/12/16 Time of Evaluation: 22:22 - Subjective Subjective: Doing well Objective - Vital Signs/Intake and Output Vital Signs (last 24 hours): Temp Pulse Resp BP Pulse Ox 97 F L 61 20 107/67 96 07/12/16 08:27 07/12/16 08:27 07/12/16 08:27 07/12/16 08:27 07/12/16 08:27 - Medications Medications: Current Medications Acetaminophen (Tylenol 325mg Tab) 650 mg PO Q6 PRN PRN Reason: Pain, Mild (1-3) Last Admin: 07/07/16 17:01 Dose: 650 mg Bethanechol Chloride (Urecholine) 50 mg PO TID [facility] Last Admin: 07/12/16 13:23 Dose: 50 mg Carbidopa/Levodopa (Rytary Er 48.75 Mg-195 Mg Cap) 1 cap PO TID@0500,1300,2100 [facility] Last Admin: 07/12/16 13:23 Dose: 1 cap Docusate Sodium (Colace) 100 mg PO BID [facility] Last Admin: 07/12/16 09:27 Dose: 100 mg Fluocinonide (Lidex 0.05% Oint) 1 applic TOP BID [facility] Last Admin: 07/12/16 09:28 Dose: 1 applic Magnesium Hydroxide (Milk Of Magnesia) 30 ml PO DAILY PRN PRN Reason: Constipation Last Admin: 06/30/16 11:01 Dose: 30 ml Midodrine (Proamatine) 10 mg PO TID [facility] Last Admin: 07/12/16 13:23 Dose: 10 mg Quetiapine Fumarate (Seroquel) 50 mg PO HS PRN PRN Reason: Agitation Last Admin: 07/05/16 08:53 Dose: 50 mg - Labs Labs: 07/11/16 10:50 07/11/16 10:50
[2016-07-13] MEDS: CARBIDOPA PO SCH ×3 (05:23→20:59)
[2016-07-13] MEDS: LEVODOPA PO SCH ×3 (05:23→20:59)
--- NOTE | 2016-07-13 07:14 | CP.PCM.PN ---
Subjective - Date & Time of Evaluation Date of Evaluation: 07/13/16 Time of Evaluation: 22:22 - Subjective Subjective: Resting Objective - Vital Signs/Intake and Output Vital Signs (last 24 hours): Temp Pulse Resp BP Pulse Ox 97.5 F L 76 20 120/51 L 98 07/12/16 21:43 07/12/16 21:43 07/12/16 21:43 07/12/16 21:43 07/12/16 21:43 - Medications Medications: Current Medications Acetaminophen (Tylenol 325mg Tab) 650 mg PO Q6 PRN PRN Reason: Pain, Mild (1-3) Last Admin: 07/07/16 17:01 Dose: 650 mg Bethanechol Chloride (Urecholine) 50 mg PO TID [facility] Last Admin: 07/12/16 17:56 Dose: 50 mg Carbidopa/Levodopa (Rytary Er 48.75 Mg-195 Mg Cap) 1 cap PO TID@0500,1300,2100 [facility] Last Admin: 07/13/16 05:23 Dose: 1 cap Docusate Sodium (Colace) 100 mg PO BID [facility] Last Admin: 07/12/16 17:55 Dose: 100 mg Fluocinonide (Lidex 0.05% Oint) 1 applic TOP BID [facility] Last Admin: 07/12/16 17:56 Dose: 1 applic Magnesium Hydroxide (Milk Of Magnesia) 30 ml PO DAILY PRN PRN Reason: Constipation Last Admin: 06/30/16 11:01 Dose: 30 ml Midodrine (Proamatine) 10 mg PO TID [facility] Last Admin: 07/12/16 17:55 Dose: 10 mg Quetiapine Fumarate (Seroquel) 50 mg PO HS PRN PRN Reason: Agitation Last Admin: 07/05/16 08:53 Dose: 50 mg - Labs Labs: 07/11/16 10:50 07/11/16 10:50 - Respiratory Exam Respiratory Exam: NORMAL BREATHING PATTERN - Cardiovascular Exam Cardiovascular Exam: REGULAR RHYTHM - GI/Abdominal Exam GI & Abdominal Exam: Normal Bowel Sounds Assessment and Plan - Assessment and Plan (Free Text) Assessment: MSA Parkinsons DX Lilia Vieira PT Rytary 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
[2016-07-13] MEDS: Bethanechol 50 MG TAB PO SCH ×3 (08:15→16:29)
[2016-07-14] MEDS: LEVODOPA PO SCH ×3 (04:55→21:07)
[2016-07-14] MEDS: CARBIDOPA PO SCH ×3 (04:55→21:07)
[2016-07-14] MEDS: Bethanechol 50 MG TAB PO SCH ×3 (08:00→15:59)
--- NOTE | 2016-07-14 22:49 | CP.PCM.PN ---
Subjective - Date & Time of Evaluation Date of Evaluation: 07/14/16 Time of Evaluation: 22:22 - Subjective Subjective: sleeping Objective - Vital Signs/Intake and Output Vital Signs (last 24 hours): Temp Pulse Resp BP Pulse Ox 97.9 F 86 20 134/65 97 07/14/16 17:04 07/14/16 17:04 07/14/16 17:04 07/14/16 17:04 07/14/16 17:04 - Medications Medications: Current Medications Acetaminophen (Tylenol 325mg Tab) 650 mg PO Q6 PRN PRN Reason: Pain, Mild (1-3) Last Admin: 07/07/16 17:01 Dose: 650 mg Bethanechol Chloride (Urecholine) 50 mg PO TID [facility] Last Admin: 07/14/16 15:59 Dose: 50 mg Carbidopa/Levodopa (Rytary Er 48.75 Mg-195 Mg Cap) 1 cap PO TID@0500,1300,2100 [facility] Last Admin: 07/14/16 21:07 Dose: 1 cap Docusate Sodium (Colace) 100 mg PO BID [facility] Last Admin: 07/14/16 15:59 Dose: 100 mg Fluocinonide (Lidex 0.05% Oint) 1 applic TOP BID [facility] Last Admin: 07/14/16 15:59 Dose: 1 applic Magnesium Hydroxide (Milk Of Magnesia) 30 ml PO DAILY PRN PRN Reason: Constipation Last Admin: 06/30/16 11:01 Dose: 30 ml Midodrine (Proamatine) 10 mg PO TID [facility] Last Admin: 07/14/16 15:59 Dose: 10 mg Quetiapine Fumarate (Seroquel) 50 mg PO HS PRN PRN Reason: Agitation Last Admin: 07/05/16 08:53 Dose: 50 mg - Labs Labs: 07/11/16 10:50 07/11/16 10:50 - Respiratory Exam Respiratory Exam: NORMAL BREATHING PATTERN - Cardiovascular Exam Cardiovascular Exam: REGULAR RHYTHM - GI/Abdominal Exam GI & Abdominal Exam: Normal Bowel Sounds Assessment and Plan - Assessment and Plan (Free Text) Assessment: MSA Parkinsons DX Lilia Vieira PT Rytary 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
[2016-07-15] MEDS: LEVODOPA PO SCH ×3 (04:47→21:36)
[2016-07-15] MEDS: CARBIDOPA PO SCH ×3 (04:47→21:36)
[2016-07-15] MEDS: Bethanechol 50 MG TAB PO SCH ×3 (09:47→16:18)
--- NOTE | 2016-07-15 15:22 | CP.PCM.PN ---
Subjective - Date & Time of Evaluation Date of Evaluation: 07/15/16 Time of Evaluation: 22:22 - Subjective Subjective: Sleeping Objective - Vital Signs/Intake and Output Vital Signs (last 24 hours): Temp Pulse Resp BP Pulse Ox 97.5 F L 66 20 98/50 L 97 07/15/16 07:27 07/15/16 07:27 07/15/16 07:27 07/15/16 07:27 07/15/16 07:27 - Medications Medications: Current Medications Acetaminophen (Tylenol 325mg Tab) 650 mg PO Q6 PRN PRN Reason: Pain, Mild (1-3) Last Admin: 07/07/16 17:01 Dose: 650 mg Bethanechol Chloride (Urecholine) 50 mg PO TID [facility] Last Admin: 07/15/16 12:33 Dose: 50 mg Carbidopa/Levodopa (Rytary Er 48.75 Mg-195 Mg Cap) 1 cap PO TID@0500,1300,2100 [facility] Last Admin: 07/15/16 12:33 Dose: 1 cap Docusate Sodium (Colace) 100 mg PO BID [facility] Last Admin: 07/15/16 09:46 Dose: 100 mg Fluocinonide (Lidex 0.05% Oint) 1 applic TOP BID [facility] Last Admin: 07/15/16 09:46 Dose: 1 applic Magnesium Hydroxide (Milk Of Magnesia) 30 ml PO DAILY PRN PRN Reason: Constipation Last Admin: 06/30/16 11:01 Dose: 30 ml Midodrine (Proamatine) 10 mg PO TID [facility] Last Admin: 07/15/16 12:33 Dose: 10 mg Quetiapine Fumarate (Seroquel) 50 mg PO HS PRN PRN Reason: Agitation Last Admin: 07/05/16 08:53 Dose: 50 mg - Labs Labs: 07/11/16 10:50 07/11/16 10:50 - Respiratory Exam Respiratory Exam: NORMAL BREATHING PATTERN - Cardiovascular Exam Cardiovascular Exam: Tachycardia - GI/Abdominal Exam GI & Abdominal Exam: Normal Bowel Sounds Assessment and Plan - Assessment and Plan (Free Text) Assessment: MSA Parkinsons DX Lilia Vieira PT Rytary 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
[2016-07-16] MEDS: LEVODOPA PO SCH ×3 (05:02→20:23)
[2016-07-16] MEDS: CARBIDOPA PO SCH ×3 (05:02→20:23)
[2016-07-16] MEDS: Bethanechol 50 MG TAB PO SCH ×3 (08:34→17:24)
--- NOTE | 2016-07-16 20:57 | CP.PCM.PN ---
Subjective - Date & Time of Evaluation Date of Evaluation: 07/16/16 Time of Evaluation: 22:22 - Subjective Subjective: Changed room Objective - Vital Signs/Intake and Output Vital Signs (last 24 hours): Temp Pulse Resp BP Pulse Ox 97.6 F 63 20 145/69 99 07/16/16 19:59 07/16/16 19:59 07/16/16 19:59 07/16/16 19:59 07/16/16 19:59 - Medications Medications: Current Medications Acetaminophen (Tylenol 325mg Tab) 650 mg PO Q6 PRN PRN Reason: Pain, Mild (1-3) Last Admin: 07/07/16 17:01 Dose: 650 mg Bethanechol Chloride (Urecholine) 50 mg PO TID [facility] Last Admin: 07/16/16 17:24 Dose: 50 mg Carbidopa/Levodopa (Rytary Er 48.75 Mg-195 Mg Cap) 1 cap PO TID@0500,1300,2100 [facility] Last Admin: 07/16/16 20:23 Dose: 1 cap Docusate Sodium (Colace) 100 mg PO BID [facility] Last Admin: 07/16/16 17:24 Dose: 100 mg Fluocinonide (Lidex 0.05% Oint) 1 applic TOP BID [facility] Last Admin: 07/16/16 17:24 Dose: 1 appl Magnesium Hydroxide (Milk Of Magnesia) 30 ml PO DAILY PRN PRN Reason: Constipation Last Admin: 06/30/16 11:01 Dose: 30 ml Midodrine (Proamatine) 10 mg PO TID [facility] Last Admin: 07/16/16 17:24 Dose: 10 mg Quetiapine Fumarate (Seroquel) 50 mg PO HS PRN PRN Reason: Agitation Last Admin: 07/05/16 08:53 Dose: 50 mg - Labs Labs: 07/11/16 10:50 07/11/16 10:50 - Respiratory Exam Respiratory Exam: NORMAL BREATHING PATTERN - Cardiovascular Exam Cardiovascular Exam: REGULAR RHYTHM - GI/Abdominal Exam GI & Abdominal Exam: Normal Bowel Sounds Assessment and Plan - Assessment and Plan (Free Text) Assessment: MSA Parkinsons DX Lilia Vieira PT Rytary 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
[2016-07-17] MEDS: CARBIDOPA PO SCH ×3 (04:46→20:46)
[2016-07-17] MEDS: LEVODOPA PO SCH ×3 (04:46→20:46)
[2016-07-17] MEDS: Bethanechol 50 MG TAB PO SCH ×3 (08:23→16:38)
[2016-07-17] MEDS: Magnesium Hydroxide Susp 30 ml UD PO PRN (16:39)
--- NOTE | 2016-07-17 18:52 | CP.PCM.PN ---
Subjective - Date & Time of Evaluation Date of Evaluation: 07/17/16 Time of Evaluation: 22:22 - Subjective Subjective: Sitting in bed Objective - Vital Signs/Intake and Output Vital Signs (last 24 hours): Temp Pulse Resp BP Pulse Ox 98.5 F 81 20 122/64 971 H 07/17/16 16:16 07/17/16 16:16 07/17/16 16:16 07/17/16 07:59 07/17/16 16:16 - Medications Medications: Current Medications Acetaminophen (Tylenol 325mg Tab) 650 mg PO Q6 PRN PRN Reason: Pain, Mild (1-3) Last Admin: 07/07/16 17:01 Dose: 650 mg Bethanechol Chloride (Urecholine) 50 mg PO TID [facility] Last Admin: 07/17/16 16:38 Dose: 50 mg Carbidopa/Levodopa (Rytary Er 48.75 Mg-195 Mg Cap) 1 cap PO TID@0500,1300,2100 [facility] Last Admin: 07/17/16 12:14 Dose: 1 cap Docusate Sodium (Colace) 100 mg PO BID [facility] Last Admin: 07/17/16 16:37 Dose: 100 mg Fluocinonide (Lidex 0.05% Oint) 1 applic TOP BID [facility] Last Admin: 07/17/16 16:37 Dose: 1 appl Magnesium Hydroxide (Milk Of Magnesia) 30 ml PO DAILY PRN PRN Reason: Constipation Last Admin: 07/17/16 16:39 Dose: 30 ml Midodrine (Proamatine) 10 mg PO TID [facility] Last Admin: 07/17/16 16:37 Dose: 10 mg Quetiapine Fumarate (Seroquel) 50 mg PO HS PRN PRN Reason: Agitation Last Admin: 07/05/16 08:53 Dose: 50 mg - Labs Labs: 07/11/16 10:50 07/11/16 10:50 - Respiratory Exam Respiratory Exam: NORMAL BREATHING PATTERN - Cardiovascular Exam Cardiovascular Exam: REGULAR RHYTHM - GI/Abdominal Exam GI & Abdominal Exam: Normal Bowel Sounds
[2016-07-18] MEDS: CARBIDOPA PO SCH ×3 (04:59→21:00)
[2016-07-18] MEDS: LEVODOPA PO SCH ×3 (04:59→21:00)
[2016-07-18] MEDS: Bethanechol 50 MG TAB PO SCH ×3 (09:08→16:41)
--- NOTE | 2016-07-18 21:06 | CP.PCM.PN ---
Subjective - Date & Time of Evaluation Date of Evaluation: 07/18/16 Time of Evaluation: 22:22 - Subjective Subjective: Doing well Objective - Vital Signs/Intake and Output Vital Signs (last 24 hours): Temp Pulse Resp BP Pulse Ox 97.8 F 84 20 144/69 98 07/18/16 16:37 07/18/16 16:37 07/18/16 16:37 07/18/16 16:37 07/18/16 16:37 - Medications Medications: Current Medications Acetaminophen (Tylenol 325mg Tab) 650 mg PO Q6 PRN PRN Reason: Pain, Mild (1-3) Last Admin: 07/07/16 17:01 Dose: 650 mg Bethanechol Chloride (Urecholine) 50 mg PO TID [facility] Last Admin: 07/18/16 16:41 Dose: 50 mg Carbidopa/Levodopa (Rytary Er 48.75 Mg-195 Mg Cap) 1 cap PO TID@0500,1300,2100 [facility] Last Admin: 07/18/16 21:00 Dose: 1 cap Docusate Sodium (Colace) 100 mg PO BID [facility] Last Admin: 07/18/16 16:41 Dose: 100 mg Fluocinonide (Lidex 0.05% Oint) 1 applic TOP BID [facility] Last Admin: 07/18/16 16:42 Dose: 1 appl Magnesium Hydroxide (Milk Of Magnesia) 30 ml PO DAILY PRN PRN Reason: Constipation Last Admin: 07/17/16 16:39 Dose: 30 ml Midodrine (Proamatine) 10 mg PO TID [facility] Last Admin: 07/18/16 16:41 Dose: 10 mg Quetiapine Fumarate (Seroquel) 50 mg PO HS PRN PRN Reason: Agitation Last Admin: 07/05/16 08:53 Dose: 50 mg - Labs Labs: 07/11/16 10:50 07/11/16 10:50 - Respiratory Exam Respiratory Exam: NORMAL BREATHING PATTERN - Cardiovascular Exam Cardiovascular Exam: REGULAR RHYTHM - GI/Abdominal Exam GI & Abdominal Exam: Normal Bowel Sounds Assessment and Plan - Assessment and Plan (Free Text) Assessment: MSA Parkinsons DX Lilia Vieira PT Rytary 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
[2016-07-19] MEDS: CARBIDOPA PO SCH ×3 (05:26→20:59)
[2016-07-19] MEDS: LEVODOPA PO SCH ×3 (05:26→20:59)
[2016-07-19] MEDS: Bethanechol 50 MG TAB PO SCH ×3 (08:40→16:09)
--- NOTE | 2016-07-19 13:47 | CP.PCM.PN ---
Subjective - Date & Time of Evaluation Date of Evaluation: 07/19/16 Time of Evaluation: 22:22 - Subjective Subjective: Doing well Objective - Vital Signs/Intake and Output Vital Signs (last 24 hours): Temp Pulse Resp BP Pulse Ox 96.8 F L 56 L 18 113/67 95 07/19/16 08:15 07/19/16 08:15 07/19/16 08:15 07/19/16 08:15 07/19/16 08:15 - Medications Medications: Current Medications Acetaminophen (Tylenol 325mg Tab) 650 mg PO Q6 PRN PRN Reason: Pain, Mild (1-3) Last Admin: 07/07/16 17:01 Dose: 650 mg Bethanechol Chloride (Urecholine) 50 mg PO TID [facility] Last Admin: 07/19/16 12:45 Dose: 50 mg Carbidopa/Levodopa (Rytary Er 48.75 Mg-195 Mg Cap) 1 cap PO TID@0500,1300,2100 [facility] Last Admin: 07/19/16 12:44 Dose: 1 cap Docusate Sodium (Colace) 100 mg PO BID [facility] Last Admin: 07/19/16 08:40 Dose: 100 mg Fluocinonide (Lidex 0.05% Oint) 1 applic TOP BID [facility] Last Admin: 07/19/16 09:29 Dose: 1 appl Magnesium Hydroxide (Milk Of Magnesia) 30 ml PO DAILY PRN PRN Reason: Constipation Last Admin: 07/17/16 16:39 Dose: 30 ml Midodrine (Proamatine) 10 mg PO TID [facility] Last Admin: 07/19/16 12:44 Dose: 10 mg Quetiapine Fumarate (Seroquel) 50 mg PO HS PRN PRN Reason: Agitation Last Admin: 07/05/16 08:53 Dose: 50 mg - Labs Labs: 07/11/16 10:50 07/11/16 10:50 - Respiratory Exam Respiratory Exam: NORMAL BREATHING PATTERN - Cardiovascular Exam Cardiovascular Exam: REGULAR RHYTHM - GI/Abdominal Exam GI & Abdominal Exam: Normal Bowel Sounds Assessment and Plan - Assessment and Plan (Free Text) Assessment: MSA Parkinsons DX Lilia Vieira PT Rytary 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
[2016-07-20] MEDS: CARBIDOPA PO SCH ×3 (05:00→20:47)
[2016-07-20] MEDS: LEVODOPA PO SCH ×3 (05:00→20:47)
[2016-07-20] MEDS: Bethanechol 50 MG TAB PO SCH ×3 (09:56→16:22)
[2016-07-21] MEDS: LEVODOPA PO SCH ×3 (04:43→20:52)
[2016-07-21] MEDS: CARBIDOPA PO SCH ×3 (04:43→20:52)
[2016-07-21] MEDS: Bethanechol 50 MG TAB PO SCH ×3 (10:25→16:02)
[2016-07-21 19:32] LABS: BASO # 0.1 K/uL (0.0-0.2); BASO % 0.9 % (0.0-2.0); EOS # 0.4 K/uL (0.0-0.7); EOS % 3.8 % (0.0-4.0); HEMOGLOBIN 12.7 g/dL (12.0-18.0); LYMPH # 1.7 K/uL (1.0-4.3); LYMPH % 17.6 % (20.0-40.0); MEAN CELL VOLUME 93.6 fl (80.0-94.0); MEAN CORPUSCULAR HEMOGLOBIN 31.2 pg (27.0-31.0); MEAN CORPUSCULAR HGB CONC 33.4 g/dL (33.0-37.0); MEAN PLATELET VOLUME 10.1 fl (7.2-11.7); MONO # 0.6 K/uL (0.0-0.8); MONO % 6.1 % (0.0-10.0); NEUT # 6.8 K/uL (1.8-7.0); NEUT % 71.6 % (50.0-75.0); RBC 4.07 Mil/uL (4.40-5.90); RED CELL DISTRIBUTION WIDTH 13.7 % (11.5-14.5); WHITE BLOOD COUNT 9.4 K/uL (4.8-10.8)
[2016-07-21 19:40] LABS: BLOOD UREA NITROGEN 33 mg/dl (9-20); CALCIUM 9.2 mg/dL (8.4-10.2); GFR AFRICAN-AMERICAN > 60; GFR NON-AFRICAN AMERICAN > 60
[2016-07-22 04:28] LABS: URINE BILIRUBIN NEGATIVE (NEGATIVE); URINE BLOOD NEGATIVE (NEGATIVE); URINE CALCIUM OXALATE CRYSTALS OCC /hpf (<OCC); URINE CLARITY CLEAR (Clear); URINE COLOR YELLOW (YELLOW); URINE GLUCOSE (UA) NEG (Normal); URINE LEUKOCYTE ESTERASE NEG Leu/uL (Negative); URINE NITRATE NEGATIVE (NEGATIVE); URINE PROTEIN NEGATIVE (NEGATIVE); URINE UROBILINOGEN 0.2-1.0 mg/dL (0.2-1.0)
[2016-07-22] MEDS: CARBIDOPA PO SCH ×3 (05:23→21:38)
[2016-07-22] MEDS: LEVODOPA PO SCH ×3 (05:23→21:38)
[2016-07-22] MEDS: Bethanechol 50 MG TAB PO SCH ×3 (10:05→17:51)
--- NOTE | 2016-07-22 16:50 | CP.PCM.PN ---
Subjective - Date & Time of Evaluation Date of Evaluation: 07/22/16 Time of Evaluation: 22:22 - Subjective Subjective: Dysuria?? Objective - Vital Signs/Intake and Output Vital Signs (last 24 hours): Temp Pulse Resp BP Pulse Ox 97.7 F 58 L 20 124/70 98 07/22/16 16:20 07/22/16 16:20 07/22/16 16:20 07/22/16 16:20 07/22/16 16:20 - Medications Medications: Current Medications Acetaminophen (Tylenol 325mg Tab) 650 mg PO Q6 PRN PRN Reason: Pain, Mild (1-3) Last Admin: 07/07/16 17:01 Dose: 650 mg Bethanechol Chloride (Urecholine) 50 mg PO TID [facility] Last Admin: 07/22/16 10:05 Dose: 50 mg Carbidopa/Levodopa (Rytary Er 48.75 Mg-195 Mg Cap) 1 cap PO TID@0500,1300,2100 [facility] Last Admin: 07/22/16 05:23 Dose: 1 cap Docusate Sodium (Colace) 100 mg PO BID [facility] Last Admin: 07/22/16 10:02 Dose: 100 mg Fluocinonide (Lidex 0.05% Oint) 1 applic TOP BID [facility] Last Admin: 07/22/16 10:03 Dose: 1 appl Magnesium Hydroxide (Milk Of Magnesia) 30 ml PO DAILY PRN PRN Reason: Constipation Last Admin: 07/17/16 16:39 Dose: 30 ml Midodrine (Proamatine) 10 mg PO TID [facility] Last Admin: 07/22/16 10:04 Dose: 10 mg Quetiapine Fumarate (Seroquel) 50 mg PO HS PRN PRN Reason: Agitation Last Admin: 07/21/16 20:52 Dose: 50 mg - Labs Labs: 07/21/16 19:00 07/21/16 14:09 - Respiratory Exam Respiratory Exam: NORMAL BREATHING PATTERN - Cardiovascular Exam Cardiovascular Exam: REGULAR RHYTHM - GI/Abdominal Exam GI & Abdominal Exam: Normal Bowel Sounds Assessment and Plan - Assessment and Plan (Free Text) Assessment: Dysuria?? yesterday Labs U/A okay culture pending MSA Parkinsons DX Lilia Vieira PT Rytary 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
[2016-07-23] MEDS: CARBIDOPA PO SCH ×3 (05:25→22:23)
[2016-07-23] MEDS: LEVODOPA PO SCH ×3 (05:25→22:23)
[2016-07-23 07:31] LABS: MEAN CELL VOLUME 93.4 fl (80.0-94.0); MEAN CORPUSCULAR HEMOGLOBIN 31.4 pg (27.0-31.0); MEAN CORPUSCULAR HGB CONC 33.6 g/dL (33.0-37.0); RBC 4.13 Mil/uL (4.40-5.90); RED CELL DISTRIBUTION WIDTH 13.9 % (11.5-14.5); WHITE BLOOD COUNT 9.4 K/uL (4.8-10.8)
[2016-07-23] MEDS: Bethanechol 50 MG TAB PO SCH ×3 (09:19→16:12)
--- NOTE | 2016-07-23 14:37 | CP.PCM.CON ---
History of Present Illness - History of Present Illness History of Present Illness: This is a 86 yrs old male who has been hospitalised for several months..He was initially admitted for a fall. Pt has parkinnsons,,dementia, hypothyroidism, depression. He has had a lot of confusion and the usual complaint has been constipation.. Over the last 2 days however he has had bleeding every time he moves his bowels. The hgb has been stable but the bleeding has been significant. He is on no anticoagulants, or any medications that can cause bleeding. He does not answer questions appropriately, so a proper history cannot be taken. Past Patient History - Tetanus Immunizations Tetanus Immunization: Unknown - Past Medical History & Family History Past Medical History?: Yes - Past Social History Smoking Status: Never Smoked - CARDIAC Hx Cardiac Disorders: No Hx Congestive Heart Failure: No Hx Hypercholesterolemia: No Hx Hypertension: No - PULMONARY Hx Chronic Obstructive Pulmonary Disease (COPD): No - NEUROLOGICAL HX Cerebrovascular Accident: No - HEENT Hx HEENT Problems: Yes Hx Cataracts: No Hx Deafness: No Hx Difficulty Chewing: No Hx Epistaxis: No Hx Glaucoma: Yes Hx Macular Degeneration: No - RENAL Hx Renal Failure: No - ENDOCRINE/METABOLIC Hx Diabetes Mellitus Type 1: No Hx Diabetes Mellitus Type 2: No Hx Hypothyroidism: No - HEMATOLOGICAL/ONCOLOGICAL Hx Anemia: No Hx Human Immunodeficiency Virus (HIV): No Hx Sickle Cell Disease: No - INTEGUMENTARY Hx Dermatological Problems: No Hx Basil Cell: No Hx Silva: No Hx Cellulitis: Yes (right leg) Hx Eczema: No Hx Melanoma: No Hx Psoriasis: No Hx Squamous Cell: No - MUSCULOSKELETAL/RHEUMATOLOGICAL Hx Arthritis: No Hx Rheumatoid Arthritis: No - GASTROINTESTINAL Hx Crohn's Disease: No Hx Diverticulitis: No Hx Gall Bladder Disease: No Hx Gastritis: No Hx Pancreatitis: No - GENITOURINARY/GYNECOLOGICAL Hx Sexually Transmitted Disorders: No - PSYCHIATRIC Hx Anxiety: Yes Hx Depression: Yes - SURGICAL HISTORY Hx Appendectomy: Yes Hx Carotid Endarterectomy: No Hx Cholecystectomy: No Hx Coronary Artery Bypass Graft: No Hx Coronary Stent: No Hx Tonsillectomy: Yes - ANESTHESIA Hx Anesthesia: Yes Hx Anesthesia Reactions: No Hx Malignant Hyperthermia: No Meds Allergies/Adverse Reactions: Allergies Allergy/AdvReac Type Severity Reaction Status Date / Time Penicillins Allergy Hives Verified 08/01/15 06:34 - Medications Medications: Current Medications Acetaminophen (Tylenol 325mg Tab) 650 mg PO Q6 PRN PRN Reason: Pain, Mild (1-3) Last Admin: 07/07/16 17:01 Dose: 650 mg Bethanechol Chloride (Urecholine) 50 mg PO TID [facility] Last Admin: 07/23/16 13:14 Dose: 50 mg Carbidopa/Levodopa (Rytary Er 48.75 Mg-195 Mg Cap) 1 cap PO TID@0500,1300,2100 [facility] Last Admin: 07/23/16 13:14 Dose: 1 cap Fluocinonide (Lidex 0.05% Oint) 1 applic TOP BID [facility] Last Admin: 07/23/16 09:19 Dose: 1 appl Dextrose/Sodium Chloride (Dextrose 5%/0.45% Ns 1000 Ml) 1,000 mls @ 80 mls/hr IV .[id number] [facility] Stop: 07/24/16 13:16 Metronidazole (Flagyl 500mg/100ml Ns) 100 mls @ 100 mls/hr IVPB Q8 [facility] Magnesium Hydroxide (Milk Of Magnesia) 30 ml PO DAILY PRN PRN Reason: Constipation Last Admin: 07/17/16 16:39 Dose: 30 ml Midodrine (Proamatine) 10 mg PO TID [facility] Last Admin: 07/23/16 13:14 Dose: 10 mg Quetiapine Fumarate (Seroquel) 50 mg PO HS PRN PRN Reason: Agitation Last Admin: 07/21/16 20:52 Dose: 50 mg Physical Exam - Additional Findings Additional findings: P/E Alert , well oriented , in no acute distress. Neck Supple, no adenopathy Chest; Clear, no rales or rhonchi\ Heart; RSR, no murmur Abd; Soft, no mass, no h/s megaly Results - Vital Signs Recent Vital Signs: Last Vital Signs Temp 97.3 F L 07/23/16 07:58 Pulse 60 07/23/16 07:58 Resp 20 07/23/16 07:58 BP 117/67 07/23/16 07:58 Pulse Ox 99 07/23/16 07:58 - Labs Result Diagrams: 07/23/16 05:45 07/21/16 14:09 Labs: Laboratory Results - last 24 hr 07/22/16 07/22/16 07/23/16 19:00 21:36 05:40 WBC RBC Hgb Hct MCV MCH MCHC RDW Plt Count POC Glucose (mg/dL) 105 C. difficile Ag & Toxin Negative Blood Type O NEGATIVE Blood Type Confirm Antibody Screen Negative BBK History Checked No verified bt 07/23/16 07/23/16 05:45 07:00 WBC 9.4 RBC 4.13 L Hgb 13.0 Hct 38.6 MCV 93.4 MCH 31.4 H MCHC 33.6 RDW 13.9 Plt Count 82 L D POC Glucose (mg/dL) C. difficile Ag & Toxin Blood Type Blood Type Confirm O NEGATIVE Antibody Screen BBK History Checked Assessment & Plan - Assessment and Plan (Free Text) Assessment: IMP: Rectal bleeding, etiology to be determined Plan: Plan; Suggest a GI consult. - Date & Time Date: 07/23/16 Time: 14:44
[2016-07-23] MEDS: metroNIDAZOLE 500mg/100ml NS 100 ML IVPB SCH (16:37)
--- NOTE | 2016-07-23 20:26 | CP.PCM.PN ---
Subjective - Date & Time of Evaluation Date of Evaluation: 07/23/16 Time of Evaluation: 22:22 - Subjective Subjective: Loose BM's with bleeding Objective - Vital Signs/Intake and Output Vital Signs (last 24 hours): Temp Pulse Resp BP Pulse Ox 98.4 F 71 18 119/79 97 07/23/16 20:03 07/23/16 20:03 07/23/16 20:03 07/23/16 20:03 07/23/16 20:03 - Medications Medications: Current Medications Acetaminophen (Tylenol 325mg Tab) 650 mg PO Q6 PRN PRN Reason: Pain, Mild (1-3) Last Admin: 07/07/16 17:01 Dose: 650 mg Bethanechol Chloride (Urecholine) 50 mg PO TID [facility] Last Admin: 07/23/16 16:12 Dose: 50 mg Carbidopa/Levodopa (Rytary Er 48.75 Mg-195 Mg Cap) 1 cap PO TID@0500,1300,2100 [facility] Last Admin: 07/23/16 13:14 Dose: 1 cap Fluocinonide (Lidex 0.05% Oint) 1 applic TOP BID [facility] Last Admin: 07/23/16 16:12 Dose: 1 appl Dextrose/Sodium Chloride (Dextrose 5%/0.45% Ns 1000 Ml) 1,000 mls @ 80 mls/hr IV .[id number] [facility] Stop: 07/24/16 13:16 Last Admin: 07/23/16 14:59 Dose: 80 mls/hr Metronidazole (Flagyl 500mg/100ml Ns) 100 mls @ 100 mls/hr IVPB Q8 [facility] Last Admin: 07/23/16 16:37 Dose: 100 mls/hr Magnesium Hydroxide (Milk Of Magnesia) 30 ml PO DAILY PRN PRN Reason: Constipation Last Admin: 07/17/16 16:39 Dose: 30 ml Midodrine (Proamatine) 10 mg PO TID [facility] Last Admin: 07/23/16 16:12 Dose: 10 mg Quetiapine Fumarate (Seroquel) 50 mg PO HS PRN PRN Reason: Agitation Last Admin: 07/21/16 20:52 Dose: 50 mg - Labs Labs: 07/23/16 05:45 07/21/16 14:09 - Respiratory Exam Respiratory Exam: NORMAL BREATHING PATTERN - Cardiovascular Exam Cardiovascular Exam: REGULAR RHYTHM - GI/Abdominal Exam GI & Abdominal Exam: Normal Bowel Sounds Assessment and Plan - Assessment and Plan (Free Text) Assessment: Gastroentritis? LGI bleed Thrombocytopenia stool cultures ID Hematology GI IVF Labs Dysuria?? yesterday Labs U/A okay culture pending MSA Parkinsons DX 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
[2016-07-23] MEDS: Dextrose 5%/0.45% NS 1,000 ML IV SCH (22:24)
[2016-07-24] MEDS: metroNIDAZOLE 500mg/100ml NS 100 ML IVPB SCH ×3 (01:37→16:36)
[2016-07-24] MEDS: LEVODOPA PO SCH ×3 (04:59→21:01)
[2016-07-24] MEDS: CARBIDOPA PO SCH ×3 (04:59→21:01)
[2016-07-24] MEDS: Bethanechol 50 MG TAB PO SCH ×3 (09:13→16:19)
[2016-07-24 09:34] LABS: HEMOGLOBIN 12.1 g/dL (12.0-18.0); MEAN CELL VOLUME 93.4 fl (80.0-94.0); MEAN CORPUSCULAR HEMOGLOBIN 31.1 pg (27.0-31.0); MEAN CORPUSCULAR HGB CONC 33.3 g/dL (33.0-37.0); RBC 3.88 Mil/uL (4.40-5.90); RED CELL DISTRIBUTION WIDTH 13.7 % (11.5-14.5); WHITE BLOOD COUNT 7.7 K/uL (4.8-10.8)
--- NOTE | 2016-07-24 10:50 | CP.PCM.PN ---
Subjective - Date & Time of Evaluation Date of Evaluation: 07/24/16 Time of Evaluation: 10:47 - Subjective Subjective: Pt again had a little bleeding rectally, but the HGB is still stable. Will be seen by GI today. Objective - Vital Signs/Intake and Output Vital Signs (last 24 hours): Temp Pulse Resp BP Pulse Ox 97.7 F 68 20 126/77 99 07/24/16 07:57 07/24/16 07:57 07/24/16 07:57 07/24/16 07:57 07/24/16 07:57 - Medications Medications: Current Medications Acetaminophen (Tylenol 325mg Tab) 650 mg PO Q6 PRN PRN Reason: Pain, Mild (1-3) Last Admin: 07/07/16 17:01 Dose: 650 mg Bethanechol Chloride (Urecholine) 50 mg PO TID [facility] Last Admin: 07/24/16 09:13 Dose: 50 mg Carbidopa/Levodopa (Rytary Er 48.75 Mg-195 Mg Cap) 1 cap PO TID@0500,1300,2100 [facility] Last Admin: 07/24/16 04:59 Dose: 1 cap Fluocinonide (Lidex 0.05% Oint) 1 applic TOP BID [facility] Last Admin: 07/24/16 09:12 Dose: 1 appl Metronidazole (Flagyl 500mg/100ml Ns) 100 mls @ 100 mls/hr IVPB Q8 [facility] Last Admin: 07/24/16 09:12 Dose: 100 mls/hr Dextrose/Sodium Chloride (Dextrose 5%/0.45% Ns 1000 Ml) 1,000 mls @ 60 mls/hr IV .[id number] [facility] Stop: 07/24/16 21:31 Last Admin: 07/23/16 22:24 Dose: Not Given Magnesium Hydroxide (Milk Of Magnesia) 30 ml PO DAILY PRN PRN Reason: Constipation Last Admin: 07/17/16 16:39 Dose: 30 ml Midodrine (Proamatine) 10 mg PO TID [facility] Last Admin: 07/24/16 09:14 Dose: 10 mg Quetiapine Fumarate (Seroquel) 50 mg PO HS PRN PRN Reason: Agitation Last Admin: 07/21/16 20:52 Dose: 50 mg - Labs Labs: 07/24/16 09:15 07/21/16 14:09
[2016-07-24] MEDS: Pantoprazole 40 mg EC Tab PO SCH (11:44)
--- NOTE | 2016-07-24 13:34 | CP.PCM.PN ---
Subjective - Date & Time of Evaluation Date of Evaluation: 07/24/16 Time of Evaluation: 08:00 - Subjective Subjective: rectal bleed/ LBM iv rx in progress Objective - Vital Signs/Intake and Output Vital Signs (last 24 hours): Temp Pulse Resp BP Pulse Ox 97.7 F 68 20 126/77 99 07/24/16 07:57 07/24/16 07:57 07/24/16 07:57 07/24/16 07:57 07/24/16 07:57 - Medications Medications: Current Medications Acetaminophen (Tylenol 325mg Tab) 650 mg PO Q6 PRN PRN Reason: Pain, Mild (1-3) Last Admin: 07/07/16 17:01 Dose: 650 mg Bethanechol Chloride (Urecholine) 50 mg PO TID [facility] Last Admin: 07/24/16 12:24 Dose: 50 mg Carbidopa/Levodopa (Rytary Er 48.75 Mg-195 Mg Cap) 1 cap PO TID@0500,1300,2100 [facility] Last Admin: 07/24/16 12:24 Dose: 1 cap Fluocinonide (Lidex 0.05% Oint) 1 applic TOP BID [facility] Last Admin: 07/24/16 09:12 Dose: 1 appl Metronidazole (Flagyl 500mg/100ml Ns) 100 mls @ 100 mls/hr IVPB Q8 [facility] Last Admin: 07/24/16 09:12 Dose: 100 mls/hr Dextrose/Sodium Chloride (Dextrose 5%/0.45% Ns 1000 Ml) 1,000 mls @ 60 mls/hr IV .[id number] [facility] Stop: 07/24/16 21:31 Last Admin: 07/23/16 22:24 Dose: Not Given Magnesium Hydroxide (Milk Of Magnesia) 30 ml PO DAILY PRN PRN Reason: Constipation Last Admin: 07/17/16 16:39 Dose: 30 ml Midodrine (Proamatine) 10 mg PO TID [facility] Last Admin: 07/24/16 12:24 Dose: 10 mg Pantoprazole Sodium (Protonix Ec Tab) 40 mg PO DAILY [facility] Last Admin: 07/24/16 11:44 Dose: 40 mg Quetiapine Fumarate (Seroquel) 50 mg PO HS PRN PRN Reason: Agitation Last Admin: 07/21/16 20:52 Dose: 50 mg - Labs Labs: 07/24/16 09:15 07/21/16 14:09 - Constitutional Appears: Non-toxic, Chronically Ill - Head Exam Head Exam: NORMOCEPHALIC - Eye Exam Eye Exam: Normal appearance, PERRL. absent: Scleral icterus - ENT Exam ENT Exam: Mucous Membranes Dry - Neck Exam Neck Exam: absent: Lymphadenopathy - Respiratory Exam Respiratory Exam: Decreased Breath Sounds, Clear to Ausculation Bilateral - Cardiovascular Exam Cardiovascular Exam: REGULAR RHYTHM, +S1, +S2 - GI/Abdominal Exam GI & Abdominal Exam: Distended, Soft. absent: Tenderness - Rectal Exam Rectal Exam: Deferred - Extremities Exam Extremities Exam: absent: Pedal Edema - Back Exam Back Exam: absent: CVA tenderness (L), CVA tenderness (R) - Neurological Exam Neurological Exam: Alert, Altered, Awake Assessment and Plan (1) Cellulitis and abscess of leg, except foot Status: Suspected (2) Fever Status: Acute - Assessment and Plan (Free Text) Assessment: c diff neg await cultures GI eval
[2016-07-24] MEDS: Dextrose 5%/0.45% NS 1,000 ML IV SCH (16:17)
--- NOTE | 2016-07-24 18:57 | CP.PCM.PN ---
Subjective - Date & Time of Evaluation Date of Evaluation: 07/24/16 Time of Evaluation: 22:22 - Subjective Subjective: Dec stools Hbg stable Objective - Vital Signs/Intake and Output Vital Signs (last 24 hours): Temp Pulse Resp BP Pulse Ox 97.7 F 86 20 155/82 H 99 07/24/16 16:25 07/24/16 16:25 07/24/16 16:25 07/24/16 16:25 07/24/16 16:25 - Medications Medications: Current Medications Acetaminophen (Tylenol 325mg Tab) 650 mg PO Q6 PRN PRN Reason: Pain, Mild (1-3) Last Admin: 07/07/16 17:01 Dose: 650 mg Bethanechol Chloride (Urecholine) 50 mg PO TID [facility] Last Admin: 07/24/16 16:19 Dose: 50 mg Carbidopa/Levodopa (Rytary Er 48.75 Mg-195 Mg Cap) 1 cap PO TID@0500,1300,2100 [facility] Last Admin: 07/24/16 12:24 Dose: 1 cap Fluocinonide (Lidex 0.05% Oint) 1 applic TOP BID [facility] Last Admin: 07/24/16 16:18 Dose: 1 appl Metronidazole (Flagyl 500mg/100ml Ns) 100 mls @ 100 mls/hr IVPB Q8 [facility] Last Admin: 07/24/16 16:36 Dose: 100 mls/hr Dextrose/Sodium Chloride (Dextrose 5%/0.45% Ns 1000 Ml) 1,000 mls @ 60 mls/hr IV .[id number] [facility] Stop: 07/24/16 21:31 Last Admin: 07/24/16 16:17 Dose: 60 mls/hr Magnesium Hydroxide (Milk Of Magnesia) 30 ml PO DAILY PRN PRN Reason: Constipation Last Admin: 07/17/16 16:39 Dose: 30 ml Midodrine (Proamatine) 10 mg PO TID [facility] Last Admin: 07/24/16 16:18 Dose: 10 mg Pantoprazole Sodium (Protonix Ec Tab) 40 mg PO DAILY [facility] Last Admin: 07/24/16 11:44 Dose: 40 mg Quetiapine Fumarate (Seroquel) 50 mg PO HS PRN PRN Reason: Agitation Last Admin: 07/21/16 20:52 Dose: 50 mg - Labs Labs: 07/24/16 09:15 07/21/16 14:09 - Respiratory Exam Respiratory Exam: NORMAL BREATHING PATTERN - Cardiovascular Exam Cardiovascular Exam: REGULAR RHYTHM - GI/Abdominal Exam GI & Abdominal Exam: Normal Bowel Sounds Assessment and Plan - Assessment and Plan (Free Text) Assessment: Gastroentritis? c-diff? LGI bleed Thrombocytopenia stool cultures Flagyl ID Hematology GI IVF Labs MSA Parkinsons DX 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
--- NOTE | 2016-07-24 20:23 | CP.PCM.CON ---
History of Present Illness - History of Present Illness History of Present Illness: 86 yo male with Parkinsons like syndrome referred because of blood in stool. Patient is confused but according to notes in the chart, patient has been having loose stools and at one point some blood was mixed in Hgb though has not dropped and no bleeding was seen today. Review of Systems - Review of Systems Systems not reviewed;Unavailable: Altered Mental Status Past Patient History - Tetanus Immunizations Tetanus Immunization: Unknown - Past Medical History & Family History Past Medical History?: Yes - Past Social History Smoking Status: Never Smoked - CARDIAC Hx Cardiac Disorders: No Hx Congestive Heart Failure: No Hx Hypercholesterolemia: No Hx Hypertension: No - PULMONARY Hx Chronic Obstructive Pulmonary Disease (COPD): No - NEUROLOGICAL HX Cerebrovascular Accident: No - HEENT Hx HEENT Problems: Yes Hx Cataracts: No Hx Deafness: No Hx Difficulty Chewing: No Hx Epistaxis: No Hx Glaucoma: Yes Hx Macular Degeneration: No - RENAL Hx Renal Failure: No - ENDOCRINE/METABOLIC Hx Diabetes Mellitus Type 1: No Hx Diabetes Mellitus Type 2: No Hx Hypothyroidism: No - HEMATOLOGICAL/ONCOLOGICAL Hx Anemia: No Hx Human Immunodeficiency Virus (HIV): No Hx Sickle Cell Disease: No - INTEGUMENTARY Hx Dermatological Problems: No Hx Basil Cell: No Hx Silva: No Hx Cellulitis: Yes (right leg) Hx Eczema: No Hx Melanoma: No Hx Psoriasis: No Hx Squamous Cell: No - MUSCULOSKELETAL/RHEUMATOLOGICAL Hx Arthritis: No Hx Rheumatoid Arthritis: No - GASTROINTESTINAL Hx Crohn's Disease: No Hx Diverticulitis: No Hx Gall Bladder Disease: No Hx Gastritis: No Hx Pancreatitis: No - GENITOURINARY/GYNECOLOGICAL Hx Sexually Transmitted Disorders: No - PSYCHIATRIC Hx Anxiety: Yes Hx Depression: Yes - SURGICAL HISTORY Hx Appendectomy: Yes Hx Carotid Endarterectomy: No Hx Cholecystectomy: No Hx Coronary Artery Bypass Graft: No Hx Coronary Stent: No Hx Tonsillectomy: Yes - ANESTHESIA Hx Anesthesia: Yes Hx Anesthesia Reactions: No Hx Malignant Hyperthermia: No Meds Allergies/Adverse Reactions: Allergies Allergy/AdvReac Type Severity Reaction Status Date / Time Penicillins Allergy Hives Verified 08/01/15 06:34 - Medications Medications: Current Medications Acetaminophen (Tylenol 325mg Tab) 650 mg PO Q6 PRN PRN Reason: Pain, Mild (1-3) Last Admin: 07/07/16 17:01 Dose: 650 mg Bethanechol Chloride (Urecholine) 50 mg PO TID [facility] Last Admin: 07/24/16 16:19 Dose: 50 mg Carbidopa/Levodopa (Rytary Er 48.75 Mg-195 Mg Cap) 1 cap PO TID@0500,1300,2100 [facility] Last Admin: 07/24/16 12:24 Dose: 1 cap Fluocinonide (Lidex 0.05% Oint) 1 applic TOP BID [facility] Last Admin: 07/24/16 16:18 Dose: 1 appl Metronidazole (Flagyl 500mg/100ml Ns) 100 mls @ 100 mls/hr IVPB Q8 [facility] Last Admin: 07/24/16 16:36 Dose: 100 mls/hr Dextrose/Sodium Chloride (Dextrose 5%/0.45% Ns 1000 Ml) 1,000 mls @ 60 mls/hr IV .[id number] [facility] Stop: 07/24/16 21:31 Last Admin: 07/24/16 16:17 Dose: 60 mls/hr Magnesium Hydroxide (Milk Of Magnesia) 30 ml PO DAILY PRN PRN Reason: Constipation Last Admin: 07/17/16 16:39 Dose: 30 ml Midodrine (Proamatine) 10 mg PO TID [facility] Last Admin: 07/24/16 16:18 Dose: 10 mg Pantoprazole Sodium (Protonix Ec Tab) 40 mg PO DAILY [facility] Last Admin: 07/24/16 11:44 Dose: 40 mg Quetiapine Fumarate (Seroquel) 50 mg PO HS PRN PRN Reason: Agitation Last Admin: 07/21/16 20:52 Dose: 50 mg Physical Exam - Eye Exam Pupil Exam: PERRL - ENT Exam ENT Exam: Normal Exam - Respiratory Exam Respiratory Exam: NORMAL BREATHING PATTERN - Cardiovascular Exam Cardiovascular Exam: +S1, +S2 - GI/Abdominal Exam GI & Abdominal Exam: Normal Bowel Sounds, Soft, Tenderness Additional comments: mild epigastric tenderness Results - Vital Signs Recent Vital Signs: Last Vital Signs Temp 97.9 F 07/24/16 20:14 Pulse 69 07/24/16 20:14 Resp 20 07/24/16 20:14 BP 151/91 H 07/24/16 20:14 Pulse Ox 98 07/24/16 20:14 - Labs Result Diagrams: 07/24/16 09:15 07/21/16 14:09 Labs: Laboratory Results - last 24 hr 07/24/16 07/24/16 06:30 09:15 WBC 7.7 RBC 3.88 L Hgb 12.1 Hct 36.3 MCV 93.4 MCH 31.1 H MCHC 33.3 RDW 13.7 Plt Count 84 L C. difficile Ag & Toxin Negative Assessment & Plan (1) GI bleeding Assessment and Plan: Sporadic GI bleeding . Hgb stable and no blood seen today. R/o proctitis, AVM, polyp, or other GI lesion. Will follow with you and endoscopic w/u if bleeding persists or HGB falls significantly. Status: Acute
[2016-07-25] MEDS: metroNIDAZOLE 500mg/100ml NS 100 ML IVPB SCH ×3 (00:55→17:00)
[2016-07-25] MEDS: LEVODOPA PO SCH ×3 (04:57→21:28)
[2016-07-25] MEDS: CARBIDOPA PO SCH ×3 (04:57→21:28)
[2016-07-25] MEDS: Bethanechol 50 MG TAB PO SCH ×3 (09:40→17:01)
[2016-07-25] MEDS: Pantoprazole 40 mg EC Tab PO SCH (09:41)
--- NOTE | 2016-07-25 20:42 | CP.PCM.PN ---
Subjective - Date & Time of Evaluation Date of Evaluation: 07/25/16 Time of Evaluation: 22:22 - Subjective Subjective: GI note appreciated Objective - Vital Signs/Intake and Output Vital Signs (last 24 hours): Temp Pulse Resp BP Pulse Ox 98.1 F 68 20 119/57 L 97 07/25/16 16:12 07/25/16 16:12 07/25/16 16:12 07/25/16 16:12 07/25/16 16:12 - Medications Medications: Current Medications Acetaminophen (Tylenol 325mg Tab) 650 mg PO Q6 PRN PRN Reason: Pain, Mild (1-3) Last Admin: 07/07/16 17:01 Dose: 650 mg Bethanechol Chloride (Urecholine) 50 mg PO TID [facility] Last Admin: 07/25/16 17:01 Dose: 50 mg Carbidopa/Levodopa (Rytary Er 48.75 Mg-195 Mg Cap) 1 cap PO TID@0500,1300,2100 [facility] Last Admin: 07/25/16 13:34 Dose: 1 cap Fluocinonide (Lidex 0.05% Oint) 1 applic TOP BID [facility] Last Admin: 07/25/16 17:00 Dose: 1 appl Metronidazole (Flagyl 500mg/100ml Ns) 100 mls @ 100 mls/hr IVPB Q8 [facility] Last Admin: 07/25/16 17:00 Dose: 100 mls/hr Magnesium Hydroxide (Milk Of Magnesia) 30 ml PO DAILY PRN PRN Reason: Constipation Last Admin: 07/17/16 16:39 Dose: 30 ml Midodrine (Proamatine) 10 mg PO TID [facility] Last Admin: 07/25/16 17:02 Dose: 10 mg Pantoprazole Sodium (Protonix Ec Tab) 40 mg PO DAILY [facility] Last Admin: 07/25/16 09:41 Dose: 40 mg Quetiapine Fumarate (Seroquel) 50 mg PO HS PRN PRN Reason: Agitation Last Admin: 07/24/16 21:01 Dose: 50 mg - Labs Labs: 07/24/16 09:15 07/21/16 14:09 - Respiratory Exam Respiratory Exam: NORMAL BREATHING PATTERN - Cardiovascular Exam Cardiovascular Exam: REGULAR RHYTHM - GI/Abdominal Exam GI & Abdominal Exam: Normal Bowel Sounds Assessment and Plan - Assessment and Plan (Free Text) Assessment: Gastroentritis? c-diff? LGI bleed Thrombocytopenia stool cultures Flagyl ID Hematology GI IVF Labs MSA Parkinsons DX Lliia Vieira PT Rytary 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
[2016-07-26] MEDS: metroNIDAZOLE 500mg/100ml NS 100 ML IVPB SCH ×3 (01:02→17:48)
[2016-07-26] MEDS: LEVODOPA PO SCH ×3 (05:29→20:51)
[2016-07-26] MEDS: CARBIDOPA PO SCH ×3 (05:29→20:51)
[2016-07-26] MEDS: Bethanechol 50 MG TAB PO SCH ×3 (09:27→17:46)
[2016-07-26] MEDS: Pantoprazole 40 mg EC Tab PO SCH (09:27)
--- NOTE | 2016-07-26 13:14 | CP.PCM.CON ---
History of Present Illness - History of Present Illness History of Present Illness: Pt is an 86 year old male admitted to [facility] one plus year ago and has been awaiting placement. 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 med hx positive for Parkinsons. Pt denied other medical issues. Social History: pt reported being in the hospital for 11 months. He described living with his niece prior and explained "She can't take care of me." He is awaiting Detention placement, and requires the above though was unaware why the process had been stalled. Pt reported living with his niece since his in the . He reported having two stepchildren who . 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 He reported psychiatric consultation in the past though was unable to provide details. Pt negative for a history of alc/sub abuse or current smoking. Pt seen while in bed, he reported being unable to walk and not walking for months. He reported needing assistance in dressing, bathing, and eating. Cognitively, patient evidenced deficits in Memory, Initiation skills, Conceptualization, and Attention. Cognitive impairment was revealed on testing and interview. Pt often responded "I don't remember" when questioned about his history, details and reason for continued stay at [place]. He was unable to process why his continued stay was necessary and he was not admitted to [facility] care. Mr. Gutierrez is a vulnerable individual from both a physical and cognitive perspective. He is unable to care for himself, can not manage his fiances and requires full guardianship due to his impaired decision making. He lacks insight into his deficits and the motivations of others. He requires 24 hour care for his safety. Dx: Cognitive Impairment Depression plan; Continued Sup therapy Detention Care Placement Full Guardianship dut to his significant vulnerabilities Thank you for this referral, Past Patient History - Tetanus Immunizations Tetanus Immunization: Unknown - Past Medical History & Family History Past Medical History?: Yes - Past Social History Smoking Status: Never Smoked - CARDIAC Hx Cardiac Disorders: No Hx Congestive Heart Failure: No Hx Hypercholesterolemia: No Hx Hypertension: No - PULMONARY Hx Chronic Obstructive Pulmonary Disease (COPD): No - NEUROLOGICAL HX Cerebrovascular Accident: No - HEENT Hx HEENT Problems: Yes Hx Cataracts: No Hx Deafness: No Hx Difficulty Chewing: No Hx Epistaxis: No Hx Glaucoma: Yes Hx Macular Degeneration: No - RENAL Hx Renal Failure: No - ENDOCRINE/METABOLIC Hx Diabetes Mellitus Type 1: No Hx Diabetes Mellitus Type 2: No Hx Hypothyroidism: No - HEMATOLOGICAL/ONCOLOGICAL Hx Anemia: No Hx Human Immunodeficiency Virus (HIV): No Hx Sickle Cell Disease: No - INTEGUMENTARY Hx Dermatological Problems: No Hx Basil Cell: No Hx Silva: No Hx Cellulitis: Yes (right leg) Hx Eczema: No Hx Melanoma: No Hx Psoriasis: No Hx Squamous Cell: No - MUSCULOSKELETAL/RHEUMATOLOGICAL Hx Arthritis: No Hx Rheumatoid Arthritis: No - GASTROINTESTINAL Hx Crohn's Disease: No Hx Diverticulitis: No Hx Gall Bladder Disease: No Hx Gastritis: No Hx Pancreatitis: No - GENITOURINARY/GYNECOLOGICAL Hx Sexually Transmitted Disorders: No - PSYCHIATRIC Hx Anxiety: Yes Hx Depression: Yes - SURGICAL HISTORY Hx Appendectomy: Yes Hx Carotid Endarterectomy: No Hx Cholecystectomy: No Hx Coronary Artery Bypass Graft: No Hx Coronary Stent: No Hx Tonsillectomy: Yes - ANESTHESIA Hx Anesthesia: Yes Hx Anesthesia Reactions: No Hx Malignant Hyperthermia: No Meds Allergies/Adverse Reactions: Allergies Allergy/AdvReac Type Severity Reaction Status Date / Time Penicillins Allergy Hives Verified 08/01/15 06:34 - Medications Medications: Current Medications Acetaminophen (Tylenol 325mg Tab) 650 mg PO Q6 PRN PRN Reason: Pain, Mild (1-3) Last Admin: 07/07/16 17:01 Dose: 650 mg Bethanechol Chloride (Urecholine) 50 mg PO TID [facility] Last Admin: 07/26/16 09:27 Dose: 50 mg Carbidopa/Levodopa (Rytary Er 48.75 Mg-195 Mg Cap) 1 cap PO TID@0500,1300,2100 [facility] Last Admin: 07/26/16 05:29 Dose: 1 cap Fluocinonide (Lidex 0.05% Oint) 1 applic TOP BID [facility] Last Admin: 07/26/16 09:27 Dose: 1 appl Metronidazole (Flagyl 500mg/100ml Ns) 100 mls @ 100 mls/hr IVPB Q8 [facility] Last Admin: 07/26/16 09:25 Dose: 100 mls/hr Magnesium Hydroxide (Milk Of Magnesia) 30 ml PO DAILY PRN PRN Reason: Constipation Last Admin: 01/04/17 16:39 Dose: 30 ml Midodrine (Proamatine) 10 mg PO TID [facility] Last Admin: 07/26/16 09:27 Dose: 10 mg Pantoprazole Sodium (Protonix Ec Tab) 40 mg PO DAILY [facility] Last Admin: 07/26/16 09:27 Dose: 40 mg Quetiapine Fumarate (Seroquel) 50 mg PO HS PRN PRN Reason: Agitation Last Admin: 07/24/16 21:01 Dose: 50 mg Results - Vital Signs Recent Vital Signs: Last Vital Signs Temp 98 F 07/26/16 08:25 Pulse 51 L 07/26/16 08:25 Resp 18 07/26/16 08:25 BP 109/62 07/26/16 08:25 Pulse Ox 99 07/26/16 08:25 - Labs Result Diagrams: 07/24/16 09:15 07/21/16 14:09
--- NOTE | 2016-07-26 17:26 | CP.PCM.PN ---
Subjective - Date & Time of Evaluation Date of Evaluation: 07/26/16 Time of Evaluation: 22:22 - Subjective Subjective: Above note appreciated Objective - Vital Signs/Intake and Output Vital Signs (last 24 hours): Temp Pulse Resp BP Pulse Ox 98 F 86 20 124/68 98 07/26/16 16:11 07/26/16 16:11 07/26/16 16:11 07/26/16 16:11 07/26/16 16:11 - Medications Medications: Current Medications Acetaminophen (Tylenol 325mg Tab) 650 mg PO Q6 PRN PRN Reason: Pain, Mild (1-3) Last Admin: 07/07/16 17:01 Dose: 650 mg Bethanechol Chloride (Urecholine) 50 mg PO TID [facility] Last Admin: 07/26/16 13:41 Dose: 50 mg Carbidopa/Levodopa (Rytary Er 48.75 Mg-195 Mg Cap) 1 cap PO TID@0500,1300,2100 [facility] Last Admin: 07/26/16 13:41 Dose: 1 cap Fluocinonide (Lidex 0.05% Oint) 1 applic TOP BID [facility] Last Admin: 07/26/16 09:27 Dose: 1 appl Metronidazole (Flagyl 500mg/100ml Ns) 100 mls @ 100 mls/hr IVPB Q8 [facility] Last Admin: 07/26/16 09:25 Dose: 100 mls/hr Magnesium Hydroxide (Milk Of Magnesia) 30 ml PO DAILY PRN PRN Reason: Constipation Last Admin: 07/17/16 16:39 Dose: 30 ml Midodrine (Proamatine) 10 mg PO TID [facility] Last Admin: 07/26/16 13:42 Dose: 10 mg Pantoprazole Sodium (Protonix Ec Tab) 40 mg PO DAILY [facility] Last Admin: 07/26/16 09:27 Dose: 40 mg Quetiapine Fumarate (Seroquel) 50 mg PO HS PRN PRN Reason: Agitation Last Admin: 07/24/16 21:01 Dose: 50 mg - Labs Labs: 07/24/16 09:15 07/21/16 14:09 - Respiratory Exam Respiratory Exam: NORMAL BREATHING PATTERN - Cardiovascular Exam Cardiovascular Exam: REGULAR RHYTHM - GI/Abdominal Exam GI & Abdominal Exam: Normal Bowel Sounds Assessment and Plan - Assessment and Plan (Free Text) Assessment: Gastroentritis? c-diff? LGI bleed Thrombocytopenia stool cultures negative Flagyl?? ID Hematology GI IVF Labs MSA Parkinsons DX Lilia Vieira PT Rytary 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
[2016-07-27] MEDS: metroNIDAZOLE 500mg/100ml NS 100 ML IVPB SCH ×3 (01:29→16:08)
[2016-07-27] MEDS: CARBIDOPA PO SCH ×3 (05:42→20:46)
[2016-07-27] MEDS: LEVODOPA PO SCH ×3 (05:42→20:46)
[2016-07-27] MEDS: Bethanechol 50 MG TAB PO SCH ×3 (09:37→16:09)
[2016-07-27] MEDS: Pantoprazole 40 mg EC Tab PO SCH (09:38)
--- NOTE | 2016-07-27 23:28 | CP.PCM.PN ---
Subjective - Date & Time of Evaluation Date of Evaluation: 07/27/16 Time of Evaluation: 22:22 - Subjective Subjective: Above noted Objective - Vital Signs/Intake and Output Vital Signs (last 24 hours): Temp Pulse Resp BP Pulse Ox 97.3 F L 75 20 160/78 H 98 07/27/16 16:20 07/27/16 16:20 07/27/16 16:20 07/27/16 16:20 07/27/16 16:20 - Medications Medications: Current Medications Acetaminophen (Tylenol 325mg Tab) 650 mg PO Q6 PRN PRN Reason: Pain, Mild (1-3) Last Admin: 07/07/16 17:01 Dose: 650 mg Bethanechol Chloride (Urecholine) 50 mg PO TID [facility] Last Admin: 07/27/16 16:09 Dose: 50 mg Carbidopa/Levodopa (Rytary Er 48.75 Mg-195 Mg Cap) 1 cap PO TID@0500,1300,2100 [facility] Last Admin: 07/27/16 20:46 Dose: 1 cap Fluocinonide (Lidex 0.05% Oint) 1 applic TOP BID [facility] Last Admin: 07/27/16 16:09 Dose: 1 appl Metronidazole (Flagyl 500mg/100ml Ns) 100 mls @ 100 mls/hr IVPB Q8 [facility] Last Admin: 07/27/16 16:08 Dose: 100 mls/hr Magnesium Hydroxide (Milk Of Magnesia) 30 ml PO DAILY PRN PRN Reason: Constipation Last Admin: 07/17/16 16:39 Dose: 30 ml Midodrine (Proamatine) 10 mg PO TID [facility] Last Admin: 07/27/16 16:09 Dose: 10 mg Pantoprazole Sodium (Protonix Ec Tab) 40 mg PO DAILY [facility] Last Admin: 07/27/16 09:38 Dose: 40 mg Quetiapine Fumarate (Seroquel) 50 mg PO HS PRN PRN Reason: Agitation Last Admin: 07/24/16 21:01 Dose: 50 mg - Labs Labs: 07/24/16 09:15 07/21/16 14:09 - Respiratory Exam Respiratory Exam: NORMAL BREATHING PATTERN - Cardiovascular Exam Cardiovascular Exam: Tachycardia - GI/Abdominal Exam GI & Abdominal Exam: Normal Bowel Sounds Assessment and Plan - Assessment and Plan (Free Text) Assessment: Gastroentritis? c-diff? LGI bleed Thrombocytopenia stool cultures negative Flagyl?? ID Hematology GI IVF Labs MSA Parkinsons DX Lilia Vieira PT Rytary 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
[2016-07-28] MEDS: metroNIDAZOLE 500mg/100ml NS 100 ML IVPB SCH ×3 (01:34→17:00)
[2016-07-28] MEDS: CARBIDOPA PO SCH ×3 (05:55→21:52)
[2016-07-28] MEDS: LEVODOPA PO SCH ×3 (05:55→21:52)
[2016-07-28] MEDS: Pantoprazole 40 mg EC Tab PO SCH (09:37)
[2016-07-28] MEDS: Bethanechol 50 MG TAB PO SCH ×3 (09:37→18:56)
--- NOTE | 2016-07-28 12:49 | CP.PCM.PN ---
Subjective - Date & Time of Evaluation Date of Evaluation: 07/28/16 Time of Evaluation: 09:00 - Subjective Subjective: afebruile alert less diarrhea cultures neg Objective - Vital Signs/Intake and Output Vital Signs (last 24 hours): Temp Pulse Resp BP Pulse Ox 97.1 F L 55 L 20 133/76 98 07/28/16 08:05 07/28/16 08:05 07/28/16 08:05 07/28/16 08:05 07/28/16 08:05 - Medications Medications: Current Medications Acetaminophen (Tylenol 325mg Tab) 650 mg PO Q6 PRN PRN Reason: Pain, Mild (1-3) Last Admin: 07/07/16 17:01 Dose: 650 mg Bethanechol Chloride (Urecholine) 50 mg PO TID [facility] Last Admin: 07/28/16 09:37 Dose: 50 mg Carbidopa/Levodopa (Rytary Er 48.75 Mg-195 Mg Cap) 1 cap PO TID@0500,1300,2100 [facility] Last Admin: 07/28/16 05:55 Dose: 1 cap Fluocinonide (Lidex 0.05% Oint) 1 applic TOP BID [facility] Last Admin: 07/28/16 09:36 Dose: 1 appl Metronidazole (Flagyl 500mg/100ml Ns) 100 mls @ 100 mls/hr IVPB Q8 [facility] Last Admin: 07/28/16 09:33 Dose: 100 mls/hr Magnesium Hydroxide (Milk Of Magnesia) 30 ml PO DAILY PRN PRN Reason: Constipation Last Admin: 07/17/16 16:39 Dose: 30 ml Midodrine (Proamatine) 10 mg PO TID [facility] Last Admin: 07/28/16 09:37 Dose: 10 mg Pantoprazole Sodium (Protonix Ec Tab) 40 mg PO DAILY [facility] Last Admin: 07/28/16 09:37 Dose: 40 mg Quetiapine Fumarate (Seroquel) 50 mg PO HS PRN PRN Reason: Agitation Last Admin: 07/24/16 21:01 Dose: 50 mg - Labs Labs: 07/24/16 09:15 07/21/16 14:09 - Constitutional Appears: Non-toxic, Chronically Ill - Head Exam Head Exam: NORMOCEPHALIC - Eye Exam Eye Exam: PERRL. absent: Scleral icterus - Neck Exam Neck Exam: absent: Lymphadenopathy - Respiratory Exam Respiratory Exam: Decreased Breath Sounds - Cardiovascular Exam Cardiovascular Exam: REGULAR RHYTHM, +S1, +S2 - GI/Abdominal Exam GI & Abdominal Exam: Distended, Soft - Rectal Exam Rectal Exam: Deferred - Exam Exam: NORMAL INSPECTION - Extremities Exam Extremities Exam: absent: Pedal Edema - Back Exam Back Exam: absent: CVA tenderness (L), CVA tenderness (R), NORMAL INSPECTION - Neurological Exam Neurological Exam: Alert, Altered, Awake - Psychiatric Exam Psychiatric exam: Depressed Assessment and Plan (1) Cellulitis and abscess of leg, except foot Status: Suspected (2) Fever Status: Acute - Assessment and Plan (Free Text) Assessment: Gastroentritis? c-diff? LGI bleed Thrombocytopenia stool cultures negative Flagyl?? ID Hematology GI IVF Labs MSA Parkinsons DX 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
--- NOTE | 2016-07-28 16:15 | CP.PCM.PN ---
Subjective - Date & Time of Evaluation Date of Evaluation: 07/28/16 Time of Evaluation: 22:22 - Subjective Subjective: Afebrile Improved Objective - Vital Signs/Intake and Output Vital Signs (last 24 hours): Temp Pulse Resp BP Pulse Ox 97.1 F L 55 L 20 133/76 98 07/28/16 08:05 07/28/16 08:05 07/28/16 08:05 07/28/16 08:05 07/28/16 08:05 - Medications Medications: Current Medications Acetaminophen (Tylenol 325mg Tab) 650 mg PO Q6 PRN PRN Reason: Pain, Mild (1-3) Last Admin: 07/07/16 17:01 Dose: 650 mg Bethanechol Chloride (Urecholine) 50 mg PO TID [facility] Last Admin: 07/28/16 12:58 Dose: 50 mg Carbidopa/Levodopa (Rytary Er 48.75 Mg-195 Mg Cap) 1 cap PO TID@0500,1300,2100 [facility] Last Admin: 07/28/16 12:58 Dose: 1 cap Fluocinonide (Lidex 0.05% Oint) 1 applic TOP BID [facility] Last Admin: 07/28/16 09:36 Dose: 1 appl Metronidazole (Flagyl 500mg/100ml Ns) 100 mls @ 100 mls/hr IVPB Q8 [facility] Last Admin: 07/28/16 09:33 Dose: 100 mls/hr Magnesium Hydroxide (Milk Of Magnesia) 30 ml PO DAILY PRN PRN Reason: Constipation Last Admin: 07/17/16 16:39 Dose: 30 ml Midodrine (Proamatine) 10 mg PO TID [facility] Last Admin: 07/28/16 12:58 Dose: 10 mg Pantoprazole Sodium (Protonix Ec Tab) 40 mg PO DAILY [facility] Last Admin: 07/28/16 09:37 Dose: 40 mg Quetiapine Fumarate (Seroquel) 50 mg PO HS PRN PRN Reason: Agitation Last Admin: 07/24/16 21:01 Dose: 50 mg - Labs Labs: 07/24/16 09:15 07/21/16 14:09 - Respiratory Exam Respiratory Exam: NORMAL BREATHING PATTERN - Cardiovascular Exam Cardiovascular Exam: REGULAR RHYTHM - GI/Abdominal Exam GI & Abdominal Exam: Normal Bowel Sounds Assessment and Plan - Assessment and Plan (Free Text) Assessment: Gastroentritis? c-diff? LGI bleed Thrombocytopenia stool cultures negative Flagyl?? ID Hematology GI IVF Labs MSA Parkinsons DX 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
[2016-07-29] MEDS: metroNIDAZOLE 500mg/100ml NS 100 ML IVPB SCH ×3 (00:14→16:44)
[2016-07-29] MEDS: LEVODOPA PO SCH ×3 (04:49→22:16)
[2016-07-29] MEDS: CARBIDOPA PO SCH ×3 (04:49→22:16)
[2016-07-29] MEDS: Bethanechol 50 MG TAB PO SCH ×3 (09:08→16:43)
[2016-07-29] MEDS: Pantoprazole 40 mg EC Tab PO SCH (09:08)
--- NOTE | 2016-07-29 11:02 | CP.PCM.PN ---
Subjective - Date & Time of Evaluation Date of Evaluation: 07/29/16 Time of Evaluation: 11:00 - Subjective Subjective: Pt has no more rectal bleeding and the cbc has been stable. Will sign off case . Please recall if needed. Objective - Vital Signs/Intake and Output Vital Signs (last 24 hours): Temp Pulse Resp BP Pulse Ox 96.4 F L 59 L 20 137/74 99 07/29/16 08:01 07/29/16 08:01 07/29/16 08:01 07/29/16 08:01 07/29/16 08:01 - Medications Medications: Current Medications Acetaminophen (Tylenol 325mg Tab) 650 mg PO Q6 PRN PRN Reason: Pain, Mild (1-3) Last Admin: 07/07/16 17:01 Dose: 650 mg Bethanechol Chloride (Urecholine) 50 mg PO TID [facility] Last Admin: 07/29/16 09:08 Dose: 50 mg Carbidopa/Levodopa (Rytary Er 48.75 Mg-195 Mg Cap) 1 cap PO TID@0500,1300,2100 [facility] Last Admin: 07/29/16 04:49 Dose: 1 cap Fluocinonide (Lidex 0.05% Oint) 1 applic TOP BID [facility] Last Admin: 07/29/16 09:07 Dose: 1 appl Metronidazole (Flagyl 500mg/100ml Ns) 100 mls @ 100 mls/hr IVPB Q8 [facility] Last Admin: 07/29/16 09:08 Dose: 100 mls/hr Magnesium Hydroxide (Milk Of Magnesia) 30 ml PO DAILY PRN PRN Reason: Constipation Last Admin: 07/17/16 16:39 Dose: 30 ml Midodrine (Proamatine) 10 mg PO TID [facility] Last Admin: 07/29/16 09:07 Dose: 10 mg Pantoprazole Sodium (Protonix Ec Tab) 40 mg PO DAILY [facility] Last Admin: 07/29/16 09:08 Dose: 40 mg Quetiapine Fumarate (Seroquel) 50 mg PO HS PRN PRN Reason: Agitation Last Admin: 07/24/16 21:01 Dose: 50 mg - Labs Labs: 07/24/16 09:15 07/21/16 14:09
--- NOTE | 2016-07-29 19:26 | CP.PCM.PN ---
Subjective - Date & Time of Evaluation Date of Evaluation: 07/29/16 Time of Evaluation: 22:22 - Subjective Subjective: Above noted Objective - Vital Signs/Intake and Output Vital Signs (last 24 hours): Temp Pulse Resp BP Pulse Ox 97.5 F L 77 20 124/64 97 07/29/16 16:23 07/29/16 16:23 07/29/16 16:23 07/29/16 16:23 07/29/16 16:23 - Medications Medications: Current Medications Acetaminophen (Tylenol 325mg Tab) 650 mg PO Q6 PRN PRN Reason: Pain, Mild (1-3) Last Admin: 07/07/16 17:01 Dose: 650 mg Bethanechol Chloride (Urecholine) 50 mg PO TID [facility] Last Admin: 07/29/16 16:43 Dose: 50 mg Carbidopa/Levodopa (Rytary Er 48.75 Mg-195 Mg Cap) 1 cap PO TID@0500,1300,2100 [facility] Last Admin: 07/29/16 14:54 Dose: 1 cap Fluocinonide (Lidex 0.05% Oint) 1 applic TOP BID [facility] Last Admin: 07/29/16 16:43 Dose: 1 appl Metronidazole (Flagyl 500mg/100ml Ns) 100 mls @ 100 mls/hr IVPB Q8 [facility] Last Admin: 07/29/16 16:44 Dose: Not Given Magnesium Hydroxide (Milk Of Magnesia) 30 ml PO DAILY PRN PRN Reason: Constipation Last Admin: 07/17/16 16:39 Dose: 30 ml Midodrine (Proamatine) 10 mg PO TID [facility] Last Admin: 07/29/16 16:42 Dose: 10 mg Pantoprazole Sodium (Protonix Ec Tab) 40 mg PO DAILY [facility] Last Admin: 07/29/16 09:08 Dose: 40 mg Quetiapine Fumarate (Seroquel) 50 mg PO HS PRN PRN Reason: Agitation Last Admin: 07/24/16 21:01 Dose: 50 mg - Labs Labs: 07/24/16 09:15 07/21/16 14:09 - Respiratory Exam Respiratory Exam: NORMAL BREATHING PATTERN - Cardiovascular Exam Cardiovascular Exam: REGULAR RHYTHM - GI/Abdominal Exam GI & Abdominal Exam: Normal Bowel Sounds Assessment and Plan - Assessment and Plan (Free Text) Assessment: Gastroentritis? c-diff? LGI bleed Thrombocytopenia stool cultures negative Flagyl?? ID Hematology GI IVF Labs MSA Parkinsons DX Lilia Wrayer PT Rytary 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
[2016-07-30] MEDS: metroNIDAZOLE 500mg/100ml NS 100 ML IVPB SCH ×3 (01:46→17:33)
[2016-07-30] MEDS: LEVODOPA PO SCH ×3 (05:15→20:04)
[2016-07-30] MEDS: CARBIDOPA PO SCH ×3 (05:15→20:04)
[2016-07-30] MEDS: Bethanechol 50 MG TAB PO SCH ×3 (09:02→17:32)
[2016-07-30] MEDS: Pantoprazole 40 mg EC Tab PO SCH (09:02)
--- NOTE | 2016-07-30 20:57 | CP.PCM.PN ---
Subjective - Date & Time of Evaluation Date of Evaluation: 07/30/16 Time of Evaluation: 22:22 - Subjective Subjective: Improved Objective - Vital Signs/Intake and Output Vital Signs (last 24 hours): Temp Pulse Resp BP Pulse Ox 97.5 F L 76 20 117/65 98 07/30/16 20:36 07/30/16 20:36 07/30/16 20:36 07/30/16 20:36 07/30/16 20:36 - Medications Medications: Current Medications Acetaminophen (Tylenol 325mg Tab) 650 mg PO Q6 PRN PRN Reason: Pain, Mild (1-3) Last Admin: 07/07/16 17:01 Dose: 650 mg Bethanechol Chloride (Urecholine) 50 mg PO TID [facility] Last Admin: 07/30/16 17:32 Dose: 50 mg Carbidopa/Levodopa (Rytary Er 48.75 Mg-195 Mg Cap) 1 cap PO TID@0500,1300,2100 [facility] Last Admin: 07/30/16 20:04 Dose: 1 cap Fluocinonide (Lidex 0.05% Oint) 1 applic TOP BID [facility] Last Admin: 07/30/16 17:33 Dose: 1 appl Metronidazole (Flagyl 500mg/100ml Ns) 100 mls @ 100 mls/hr IVPB Q8 [facility] Last Admin: 07/30/16 17:33 Dose: 100 mls/hr Magnesium Hydroxide (Milk Of Magnesia) 30 ml PO DAILY PRN PRN Reason: Constipation Last Admin: 07/17/16 16:39 Dose: 30 ml Midodrine (Proamatine) 10 mg PO TID [facility] Last Admin: 07/30/16 17:33 Dose: 10 mg Pantoprazole Sodium (Protonix Ec Tab) 40 mg PO DAILY [facility] Last Admin: 07/30/16 09:02 Dose: 40 mg Quetiapine Fumarate (Seroquel) 50 mg PO HS PRN PRN Reason: Agitation Last Admin: 07/24/16 21:01 Dose: 50 mg - Labs Labs: 07/24/16 09:15 07/21/16 14:09 - Respiratory Exam Respiratory Exam: NORMAL BREATHING PATTERN - Cardiovascular Exam Cardiovascular Exam: REGULAR RHYTHM - GI/Abdominal Exam GI & Abdominal Exam: Normal Bowel Sounds Assessment and Plan - Assessment and Plan (Free Text) Assessment: Gastroentritis? c-diff? Improved LGI bleed Thrombocytopenia stool cultures negative Flagyl?? ID Hematology GI IVF Labs MSA Parkinsons DX Lilia Vieira PT Rytary 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
[2016-07-31] MEDS: metroNIDAZOLE 500mg/100ml NS 100 ML IVPB SCH ×3 (02:26→17:08)
[2016-07-31] MEDS: LEVODOPA PO SCH ×3 (04:56→21:21)
[2016-07-31] MEDS: CARBIDOPA PO SCH ×3 (04:56→21:21)
[2016-07-31] MEDS: Bethanechol 50 MG TAB PO SCH ×3 (08:57→17:10)
[2016-07-31] MEDS: Pantoprazole 40 mg EC Tab PO SCH (08:57)
--- NOTE | 2016-07-31 18:06 | CP.PCM.PN ---
Subjective - Date & Time of Evaluation Date of Evaluation: 07/31/16 Time of Evaluation: 22:22 - Subjective Subjective: Above noted Objective - Vital Signs/Intake and Output Vital Signs (last 24 hours): Temp Pulse Resp BP Pulse Ox 98.2 F 66 20 128/74 98 07/31/16 15:56 07/31/16 15:56 07/31/16 15:56 07/31/16 15:56 07/31/16 15:56 - Medications Medications: Current Medications Acetaminophen (Tylenol 325mg Tab) 650 mg PO Q6 PRN PRN Reason: Pain, Mild (1-3) Last Admin: 07/07/16 17:01 Dose: 650 mg Bethanechol Chloride (Urecholine) 50 mg PO TID [facility] Last Admin: 07/31/16 17:10 Dose: 50 mg Carbidopa/Levodopa (Rytary Er 48.75 Mg-195 Mg Cap) 1 cap PO TID@0500,1300,2100 [facility] Last Admin: 07/31/16 13:00 Dose: 1 cap Fluocinonide (Lidex 0.05% Oint) 1 applic TOP BID [facility] Last Admin: 07/31/16 17:08 Dose: 1 appl Metronidazole (Flagyl 500mg/100ml Ns) 100 mls @ 100 mls/hr IVPB Q8 [facility] Last Admin: 07/31/16 17:08 Dose: 100 mls/hr Magnesium Hydroxide (Milk Of Magnesia) 30 ml PO DAILY PRN PRN Reason: Constipation Last Admin: 07/17/16 16:39 Dose: 30 ml Midodrine (Proamatine) 10 mg PO TID [facility] Last Admin: 07/31/16 17:09 Dose: 10 mg Pantoprazole Sodium (Protonix Ec Tab) 40 mg PO DAILY [facility] Last Admin: 07/31/16 08:57 Dose: 40 mg Quetiapine Fumarate (Seroquel) 50 mg PO HS PRN PRN Reason: Agitation Last Admin: 07/30/16 23:43 Dose: 50 mg - Labs Labs: 07/24/16 09:15 07/21/16 14:09 - Respiratory Exam Respiratory Exam: NORMAL BREATHING PATTERN - Cardiovascular Exam Cardiovascular Exam: REGULAR RHYTHM - GI/Abdominal Exam GI & Abdominal Exam: Normal Bowel Sounds Assessment and Plan - Assessment and Plan (Free Text) Assessment: Gastroentritis? c-diff? Improved LGI bleed Thrombocytopenia stool cultures negative Flagyl?? ID Hematology GI IVF Labs MSA Parkinsons DX Lilia Vieira PT Rytary 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
[2016-08-01] MEDS: metroNIDAZOLE 500mg/100ml NS 100 ML IVPB SCH ×3 (00:22→16:00)
[2016-08-01] MEDS: CARBIDOPA PO SCH ×3 (05:00→21:14)
[2016-08-01] MEDS: LEVODOPA PO SCH ×3 (05:00→21:14)
[2016-08-01] MEDS: Pantoprazole 40 mg EC Tab PO SCH (08:31)
[2016-08-01] MEDS: Bethanechol 50 MG TAB PO SCH ×3 (08:31→16:00)
--- NOTE | 2016-08-01 20:33 | CP.PCM.PN ---
Subjective - Date & Time of Evaluation Date of Evaluation: 08/01/16 Time of Evaluation: 22:22 - Subjective Subjective: Above noted Objective - Vital Signs/Intake and Output Vital Signs (last 24 hours): Temp Pulse Resp BP Pulse Ox 97.3 F L 80 20 164/69 H 99 08/01/16 16:17 08/01/16 16:17 08/01/16 16:17 08/01/16 16:17 08/01/16 16:17 - Medications Medications: Current Medications Acetaminophen (Tylenol 325mg Tab) 650 mg PO Q6 PRN PRN Reason: Pain, Mild (1-3) Last Admin: 07/31/16 22:28 Dose: 650 mg Bethanechol Chloride (Urecholine) 50 mg PO TID [facility] Last Admin: 08/01/16 16:00 Dose: 50 mg Carbidopa/Levodopa (Rytary Er 48.75 Mg-195 Mg Cap) 1 cap PO TID@0500,1300,2100 [facility] Last Admin: 08/01/16 12:11 Dose: 1 cap Fluocinonide (Lidex 0.05% Oint) 1 applic TOP BID [facility] Last Admin: 08/01/16 16:00 Dose: 1 appl Metronidazole (Flagyl 500mg/100ml Ns) 100 mls @ 100 mls/hr IVPB Q8 [facility] Last Admin: 08/01/16 16:00 Dose: 100 mls/hr Magnesium Hydroxide (Milk Of Magnesia) 30 ml PO DAILY PRN PRN Reason: Constipation Last Admin: 07/17/16 16:39 Dose: 30 ml Midodrine (Proamatine) 10 mg PO TID [facility] Last Admin: 08/01/16 15:59 Dose: 10 mg Pantoprazole Sodium (Protonix Ec Tab) 40 mg PO DAILY [facility] Last Admin: 08/01/16 08:31 Dose: 40 mg Quetiapine Fumarate (Seroquel) 50 mg PO HS PRN PRN Reason: Agitation Last Admin: 07/30/16 23:43 Dose: 50 mg - Labs Labs: 07/24/16 09:15 07/21/16 14:09 - Respiratory Exam Respiratory Exam: NORMAL BREATHING PATTERN - Cardiovascular Exam Cardiovascular Exam: REGULAR RHYTHM - GI/Abdominal Exam GI & Abdominal Exam: Normal Bowel Sounds Assessment and Plan - Assessment and Plan (Free Text) Assessment: Gastroentritis? c-diff? Improved LGI bleed Thrombocytopenia stool cultures negative Flagyl?? ID Hematology GI IVF Labs MSA Parkinsons DX Lilia Vieira PT Rytary 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
[2016-08-02] MEDS: metroNIDAZOLE 500mg/100ml NS 100 ML IVPB SCH ×2 (00:30→10:24)
[2016-08-02] MEDS: LEVODOPA PO SCH ×3 (05:12→21:17)
[2016-08-02] MEDS: CARBIDOPA PO SCH ×3 (05:12→21:17)
[2016-08-02] MEDS: Bethanechol 50 MG TAB PO SCH ×3 (10:24→16:40)
[2016-08-02] MEDS: Pantoprazole 40 mg EC Tab PO SCH (10:24)
[2016-08-03] MEDS: CARBIDOPA PO SCH ×3 (05:11→20:52)
[2016-08-03] MEDS: LEVODOPA PO SCH ×3 (05:11→20:52)
[2016-08-03] MEDS: Bethanechol 50 MG TAB PO SCH ×3 (09:10→17:27)
[2016-08-03] MEDS: Pantoprazole 40 mg EC Tab PO SCH (09:10)
[2016-08-04] MEDS: CARBIDOPA PO SCH ×3 (04:58→21:13)
[2016-08-04] MEDS: LEVODOPA PO SCH ×3 (04:58→21:13)
[2016-08-04] MEDS: Pantoprazole 40 mg EC Tab PO SCH (10:59)
[2016-08-04] MEDS: Bethanechol 50 MG TAB PO SCH ×3 (11:00→16:51)
--- NOTE | 2016-08-04 14:28 | CP.PCM.PN ---
Subjective - Date & Time of Evaluation Date of Evaluation: 08/02/16 Time of Evaluation: 22:22 - Subjective Subjective: Doing well Objective - Vital Signs/Intake and Output Vital Signs (last 24 hours): Temp Pulse Resp BP Pulse Ox 97.5 F L 61 20 83/49 L 98 08/04/16 07:58 08/04/16 07:58 08/04/16 07:58 08/04/16 07:58 08/04/16 07:58 - Medications Medications: Current Medications Acetaminophen (Tylenol 325mg Tab) 650 mg PO Q6 PRN PRN Reason: Pain, Mild (1-3) Last Admin: 08/03/16 22:17 Dose: 650 mg Bethanechol Chloride (Urecholine) 50 mg PO TID [facility] Last Admin: 08/04/16 12:40 Dose: 50 mg Carbidopa/Levodopa (Rytary Er 48.75 Mg-195 Mg Cap) 1 cap PO TID@0500,1300,2100 [facility] Last Admin: 08/04/16 12:40 Dose: 1 cap Fluocinonide (Lidex 0.05% Oint) 1 applic TOP BID [facility] Last Admin: 08/04/16 10:58 Dose: 1 appl Magnesium Hydroxide (Milk Of Magnesia) 30 ml PO DAILY PRN PRN Reason: Constipation Last Admin: 07/17/16 16:39 Dose: 30 ml Metronidazole (Flagyl) 500 mg PO TID@0700,1500,2300 [facility] Last Admin: 08/04/16 06:22 Dose: 500 mg Midodrine (Proamatine) 10 mg PO TID [facility] Last Admin: 08/04/16 12:40 Dose: 10 mg Pantoprazole Sodium (Protonix Ec Tab) 40 mg PO DAILY [facility] Last Admin: 08/04/16 10:59 Dose: 40 mg Quetiapine Fumarate (Seroquel) 50 mg PO HS PRN PRN Reason: Agitation Last Admin: 08/03/16 22:21 Dose: 50 mg - Labs Labs: 07/24/16 09:15 07/21/16 14:09 - Respiratory Exam Respiratory Exam: NORMAL BREATHING PATTERN - Cardiovascular Exam Cardiovascular Exam: REGULAR RHYTHM - GI/Abdominal Exam GI & Abdominal Exam: Normal Bowel Sounds Assessment and Plan - Assessment and Plan (Free Text) Assessment: Gastroentritis? c-diff? Improved LGI bleed Thrombocytopenia stool cultures negative Flagyl ID Hematology GI MSA Parkinsons DX Lilia Drager PT Rytary 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
--- NOTE | 2016-08-04 14:34 | CP.PCM.PN ---
Subjective - Date & Time of Evaluation Date of Evaluation: 08/04/16 Time of Evaluation: 22:22 - Subjective Subjective: Sitting in chair c/o shoulder limited range of motion Objective - Vital Signs/Intake and Output Vital Signs (last 24 hours): Temp Pulse Resp BP Pulse Ox 97.5 F L 61 20 83/49 L 98 08/04/16 07:58 08/04/16 07:58 08/04/16 07:58 08/04/16 07:58 08/04/16 07:58 - Medications Medications: Current Medications Acetaminophen (Tylenol 325mg Tab) 650 mg PO Q6 PRN PRN Reason: Pain, Mild (1-3) Last Admin: 08/03/16 22:17 Dose: 650 mg Bethanechol Chloride (Urecholine) 50 mg PO TID [facility] Last Admin: 08/04/16 12:40 Dose: 50 mg Carbidopa/Levodopa (Rytary Er 48.75 Mg-195 Mg Cap) 1 cap PO TID@0500,1300,2100 [facility] Last Admin: 08/04/16 12:40 Dose: 1 cap Fluocinonide (Lidex 0.05% Oint) 1 applic TOP BID [facility] Last Admin: 08/04/16 10:58 Dose: 1 appl Magnesium Hydroxide (Milk Of Magnesia) 30 ml PO DAILY PRN PRN Reason: Constipation Last Admin: 07/17/16 16:39 Dose: 30 ml Metronidazole (Flagyl) 500 mg PO TID@0700,1500,2300 [facility] Last Admin: 08/04/16 06:22 Dose: 500 mg Midodrine (Proamatine) 10 mg PO TID [facility] Last Admin: 08/04/16 12:40 Dose: 10 mg Pantoprazole Sodium (Protonix Ec Tab) 40 mg PO DAILY [facility] Last Admin: 08/04/16 10:59 Dose: 40 mg Quetiapine Fumarate (Seroquel) 50 mg PO HS PRN PRN Reason: Agitation Last Admin: 08/03/16 22:21 Dose: 50 mg - Labs Labs: 07/24/16 09:15 07/21/16 14:09 - Respiratory Exam Respiratory Exam: NORMAL BREATHING PATTERN - Cardiovascular Exam Cardiovascular Exam: REGULAR RHYTHM - GI/Abdominal Exam GI & Abdominal Exam: Normal Bowel Sounds Assessment and Plan - Assessment and Plan (Free Text) Assessment: Gastroentritis? c-diff? Improved LGI bleed Thrombocytopenia stool cultures negative Flagyl ID Hematology GI MSA Parkinsons DX Lilia Vieira PT Rytary 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
[2016-08-05] MEDS: LEVODOPA PO SCH ×3 (04:42→22:37)
[2016-08-05] MEDS: CARBIDOPA PO SCH ×3 (04:42→22:37)
[2016-08-05] MEDS: Pantoprazole 40 mg EC Tab PO SCH (10:07)
[2016-08-05] MEDS: Bethanechol 50 MG TAB PO SCH ×3 (10:08→17:22)
--- NOTE | 2016-08-05 16:42 | CP.PCM.PN ---
Subjective - Date & Time of Evaluation Date of Evaluation: 08/05/16 Time of Evaluation: 22:22 - Subjective Subjective: Above noted Objective - Vital Signs/Intake and Output Vital Signs (last 24 hours): Temp Pulse Resp BP Pulse Ox 98 F 94 H 20 145/73 95 08/05/16 16:25 08/05/16 16:25 08/05/16 16:25 08/05/16 16:25 08/05/16 16:25 - Medications Medications: Current Medications Acetaminophen (Tylenol 325mg Tab) 650 mg PO Q6 PRN PRN Reason: Pain, Mild (1-3) Last Admin: 08/05/16 12:32 Dose: 650 mg Bethanechol Chloride (Urecholine) 50 mg PO TID [facility] Last Admin: 08/05/16 12:34 Dose: 50 mg Carbidopa/Levodopa (Rytary Er 48.75 Mg-195 Mg Cap) 1 cap PO TID@0500,1300,2100 [facility] Last Admin: 08/05/16 12:33 Dose: 1 cap Fluocinonide (Lidex 0.05% Oint) 1 applic TOP BID [facility] Last Admin: 08/05/16 10:06 Dose: 1 appl Magnesium Hydroxide (Milk Of Magnesia) 30 ml PO DAILY PRN PRN Reason: Constipation Last Admin: 07/17/16 16:39 Dose: 30 ml Metronidazole (Flagyl) 500 mg PO TID@0700,1500,2300 [facility] Last Admin: 08/05/16 15:52 Dose: 500 mg Midodrine (Proamatine) 10 mg PO TID [facility] Last Admin: 08/05/16 12:34 Dose: 10 mg Pantoprazole Sodium (Protonix Ec Tab) 40 mg PO DAILY [facility] Last Admin: 08/05/16 10:07 Dose: 40 mg Quetiapine Fumarate (Seroquel) 50 mg PO HS PRN PRN Reason: Agitation Last Admin: 08/04/16 21:13 Dose: 50 mg - Labs Labs: 07/24/16 09:15 07/21/16 14:09 - Respiratory Exam Respiratory Exam: NORMAL BREATHING PATTERN - Cardiovascular Exam Cardiovascular Exam: REGULAR RHYTHM - GI/Abdominal Exam GI & Abdominal Exam: Normal Bowel Sounds Assessment and Plan - Assessment and Plan (Free Text) Assessment: Gastroentritis? resolved LGI bleed Thrombocytopenia stool cultures negative Flagyl ID Hematology GI MSA Parkinsons DX Shry Drager PT Rytasaurabh 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
[2016-08-06] MEDS: CARBIDOPA PO SCH ×3 (05:19→22:56)
[2016-08-06] MEDS: LEVODOPA PO SCH ×3 (05:19→22:56)
[2016-08-06] MEDS: Bethanechol 50 MG TAB PO SCH ×3 (09:11→16:45)
[2016-08-06] MEDS: Pantoprazole 40 mg EC Tab PO SCH (09:15)
--- NOTE | 2016-08-06 21:06 | CP.PCM.PN ---
Subjective - Date & Time of Evaluation Date of Evaluation: 08/06/16 Time of Evaluation: 22:22 - Subjective Subjective: c/o dysuria Objective - Vital Signs/Intake and Output Vital Signs (last 24 hours): Temp Pulse Resp BP Pulse Ox 97.5 F L 54 L 20 117/71 97 08/06/16 16:12 08/06/16 16:12 08/06/16 16:12 08/06/16 16:12 08/06/16 16:12 - Medications Medications: Current Medications Acetaminophen (Tylenol 325mg Tab) 650 mg PO Q6 PRN PRN Reason: Pain, Mild (1-3) Last Admin: 08/05/16 12:32 Dose: 650 mg Bethanechol Chloride (Urecholine) 50 mg PO TID [facility] Last Admin: 08/06/16 16:45 Dose: 50 mg Carbidopa/Levodopa (Rytary Er 48.75 Mg-195 Mg Cap) 1 cap PO TID@0500,1300,2100 [facility] Last Admin: 08/06/16 12:45 Dose: 1 cap Fluocinonide (Lidex 0.05% Oint) 1 applic TOP BID [facility] Last Admin: 08/06/16 16:48 Dose: 1 appl Magnesium Hydroxide (Milk Of Magnesia) 30 ml PO DAILY PRN PRN Reason: Constipation Last Admin: 07/17/16 16:39 Dose: 30 ml Metronidazole (Flagyl) 500 mg PO TID@0700,1500,2300 [facility] Last Admin: 08/06/16 16:45 Dose: 500 mg Midodrine (Proamatine) 10 mg PO TID [facility] Last Admin: 08/06/16 16:48 Dose: 10 mg Pantoprazole Sodium (Protonix Ec Tab) 40 mg PO DAILY [facility] Last Admin: 08/06/16 09:15 Dose: 40 mg Quetiapine Fumarate (Seroquel) 50 mg PO HS PRN PRN Reason: Agitation Last Admin: 08/04/16 21:13 Dose: 50 mg - Labs Labs: 07/24/16 09:15 07/21/16 14:09 - Respiratory Exam Respiratory Exam: NORMAL BREATHING PATTERN - Cardiovascular Exam Cardiovascular Exam: REGULAR RHYTHM - GI/Abdominal Exam GI & Abdominal Exam: Normal Bowel Sounds Assessment and Plan - Assessment and Plan (Free Text) Assessment: UTI culutures US PVR Gastroentritis? resolved d/c flagyl LGI bleed Thrombocytopenia MSA Parkinsons DX Lilia Vieira PT Rytary 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
[2016-08-07] MEDS: LEVODOPA PO SCH ×3 (05:08→20:29)
[2016-08-07] MEDS: CARBIDOPA PO SCH ×3 (05:08→20:29)
[2016-08-07] MEDS: Bethanechol 50 MG TAB PO SCH ×3 (09:25→16:15)
[2016-08-07] MEDS: Pantoprazole 40 mg EC Tab PO SCH (09:25)
--- NOTE | 2016-08-07 10:41 | US ---
PROCEDURE: Ultrasound of the Kidneys HISTORY: c/o burning when peeing COMPARISON: None available. TECHNIQUE: Sonogram of the kidneys. FINDINGS: RIGHT KIDNEY: Measures: 11 x 6.7 x 5.5 cm. Normal in size, contour and echogenicity. No stone, solid mass lesion or hydronephrosis visualized. LEFT KIDNEY: Measures: 10.9 x 6.3 x 5.8 cm. Normal in size, contour and echogenicity. No stone, solid mass lesion or hydronephrosis visualized. OTHER FINDINGS: None. IMPRESSION: Unremarkable renal sonogram.
[2016-08-07 14:09] LABS: SQUAMOUS EPITHIAL < 1 /hpf (0-5); URINE BILIRUBIN NEGATIVE (NEGATIVE); URINE BLOOD NEGATIVE (NEGATIVE); URINE CLARITY CLEAR (Clear); URINE COLOR YELLOW (YELLOW); URINE GLUCOSE (UA) NEG (Normal); URINE LEUKOCYTE ESTERASE TRACE Leu/uL (Negative); URINE NITRATE NEGATIVE (NEGATIVE); URINE PROTEIN NEGATIVE (NEGATIVE); URINE UROBILINOGEN 0.2-1.0 mg/dL (0.2-1.0)
--- NOTE | 2016-08-07 18:42 | CP.PCM.PN ---
Subjective - Date & Time of Evaluation Date of Evaluation: 08/07/16 Time of Evaluation: 22:22 - Subjective Subjective: Long d/w SS Objective - Vital Signs/Intake and Output Vital Signs (last 24 hours): Temp Pulse Resp BP Pulse Ox 98 F 58 L 18 100/56 L 96 08/06/16 21:23 08/07/16 08:33 08/07/16 08:33 08/07/16 08:33 08/07/16 08:33 - Medications Medications: Current Medications Acetaminophen (Tylenol 325mg Tab) 650 mg PO Q6 PRN PRN Reason: Pain, Mild (1-3) Last Admin: 08/05/16 12:32 Dose: 650 mg Bethanechol Chloride (Urecholine) 50 mg PO TID [facility] Last Admin: 08/07/16 16:15 Dose: 50 mg Carbidopa/Levodopa (Rytary Er 48.75 Mg-195 Mg Cap) 1 cap PO TID@0500,1300,2100 [facility] Last Admin: 08/07/16 12:01 Dose: 1 cap Fluocinonide (Lidex 0.05% Oint) 1 applic TOP BID [facility] Last Admin: 08/07/16 16:14 Dose: 1 appl Magnesium Hydroxide (Milk Of Magnesia) 30 ml PO DAILY PRN PRN Reason: Constipation Last Admin: 07/17/16 16:39 Dose: 30 ml Midodrine (Proamatine) 10 mg PO TID [facility] Last Admin: 08/07/16 16:15 Dose: 10 mg Pantoprazole Sodium (Protonix Ec Tab) 40 mg PO DAILY [facility] Last Admin: 08/07/16 09:25 Dose: 40 mg Quetiapine Fumarate (Seroquel) 50 mg PO HS PRN PRN Reason: Agitation Last Admin: 08/06/16 22:56 Dose: 50 mg - Labs Labs: 07/24/16 09:15 07/21/16 14:09 - Respiratory Exam Respiratory Exam: NORMAL BREATHING PATTERN - Cardiovascular Exam Cardiovascular Exam: REGULAR RHYTHM - GI/Abdominal Exam GI & Abdominal Exam: Normal Bowel Sounds Assessment and Plan - Assessment and Plan (Free Text) Assessment: UTI UA wnl culutures US PVR Gastroentritis? resolved d/c flagyl LGI bleed Thrombocytopenia MSA Parkinsons DX Lilia Vieira PT Rytary 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
[2016-08-08] MEDS: LEVODOPA PO SCH ×3 (05:15→20:33)
[2016-08-08] MEDS: CARBIDOPA PO SCH ×3 (05:15→20:33)
[2016-08-08] MEDS: Pantoprazole 40 mg EC Tab PO SCH (09:08)
[2016-08-08] MEDS: Bethanechol 50 MG TAB PO SCH ×3 (09:08→18:41)
[2016-08-08] MEDS: Benzocaine/Menthol (Cepacol) Lozenge PO PRN ×3 (09:31→15:00)
--- NOTE | 2016-08-08 11:03 | RAD ---
HISTORY: cough COMPARISON: 11/20/2015 FINDINGS: LUNGS: Minimal patchy infiltrate at the right lung base. PLEURA: No significant pleural effusion identified, no pneumothorax apparent. CARDIOVASCULAR: Moderate cardiomegaly OSSEOUS STRUCTURES: No significant abnormalities. VISUALIZED UPPER ABDOMEN: Normal. OTHER FINDINGS: None. IMPRESSION: Minimal patchy infiltrate at the right lung base. Moderate cardiomegaly
--- NOTE | 2016-08-08 21:00 | CP.PCM.PN ---
Subjective - Date & Time of Evaluation Date of Evaluation: 08/08/16 Time of Evaluation: 22:22 - Subjective Subjective: Urine cs negative Objective - Vital Signs/Intake and Output Vital Signs (last 24 hours): Temp Pulse Resp BP Pulse Ox 98.4 F 75 20 110/62 96 08/08/16 16:42 08/08/16 16:42 08/08/16 16:42 08/08/16 16:42 08/08/16 16:42 - Medications Medications: Current Medications Acetaminophen (Tylenol 325mg Tab) 650 mg PO Q6 PRN PRN Reason: Pain, Mild (1-3) Last Admin: 08/05/16 12:32 Dose: 650 mg Benzocaine/Menthol (Cepacol Sore Throat) 1 morro PO Q3 PRN PRN Reason: Sore Throat Last Admin: 08/08/16 15:00 Dose: 1 morro Bethanechol Chloride (Urecholine) [address] [facility] Last Admin: 08/08/16 18:41 Dose: 50 mg Carbidopa/Levodopa (Rytary Er 48.75 Mg-195 Mg Cap) 1 cap PO TID@0500,1300,2100 [facility] Last Admin: 08/08/16 20:33 Dose: 1 cap Fluocinonide (Lidex 0.05% Oint) [address] [facility] Last Admin: 08/08/16 18:32 Dose: 1 appl Magnesium Hydroxide (Milk Of Magnesia) 30 ml PO DAILY PRN PRN Reason: Constipation Last Admin: 07/17/16 16:39 Dose: 30 ml Midodrine (Proamatine) [address] [facility] Last Admin: 08/08/16 18:32 Dose: 10 mg Pantoprazole Sodium (Protonix Ec Tab) [address] [facility] Last Admin: 08/08/16 09:08 Dose: 40 mg Quetiapine Fumarate (Seroquel) 50 mg PO HS PRN PRN Reason: Agitation Last Admin: 08/08/16 20:33 Dose: 50 mg - Labs Labs: 07/24/16 09:15 07/21/16 14:09 - Respiratory Exam Respiratory Exam: NORMAL BREATHING PATTERN - Cardiovascular Exam Cardiovascular Exam: REGULAR RHYTHM - GI/Abdominal Exam GI & Abdominal Exam: Normal Bowel Sounds Assessment and Plan - Assessment and Plan (Free Text) Assessment: Gastroentritis? resolved d/c flagyl LGI bleed Thrombocytopenia MSA Parkinsons DX Lilia Vieira PT Rytary 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
[2016-08-09] MEDS: LEVODOPA PO SCH ×3 (06:45→20:31)
[2016-08-09] MEDS: CARBIDOPA PO SCH ×3 (06:45→20:31)
[2016-08-09] MEDS: Bethanechol 50 MG TAB PO SCH ×3 (09:54→16:46)
[2016-08-09] MEDS: Pantoprazole 40 mg EC Tab PO SCH (09:54)
[2016-08-09] MEDS: Benzocaine/Menthol (Cepacol) Lozenge PO PRN ×2 (10:01→17:13)
--- NOTE | 2016-08-09 11:02 | CP.PCM.PN ---
Subjective - Date & Time of Evaluation Date of Evaluation: 08/09/16 Time of Evaluation: 22:22 - Subjective Subjective: Cough yesterday CXR?? Clinically doing well Objective - Vital Signs/Intake and Output Vital Signs (last 24 hours): Temp Pulse Resp BP Pulse Ox 98.3 F 62 20 125/56 L 98 08/09/16 07:39 08/09/16 07:39 08/09/16 07:39 08/09/16 07:39 08/09/16 07:39 - Medications Medications: Current Medications Acetaminophen (Tylenol 325mg Tab) 650 mg PO Q6 PRN PRN Reason: Pain, Mild (1-3) Last Admin: 08/05/16 12:32 Dose: 650 mg Benzocaine/Menthol (Cepacol Sore Throat) 1 morro PO Q3 PRN PRN Reason: Sore Throat Last Admin: 08/09/16 10:01 Dose: 1 morro Bethanechol Chloride (Urecholine) 50 mg PO TID [facility] Last Admin: 08/09/16 09:54 Dose: 50 mg Carbidopa/Levodopa (Rytary Er 48.75 Mg-195 Mg Cap) 1 cap PO TID@0500,1300,2100 [facility] Last Admin: 08/09/16 06:45 Dose: 1 cap Fluocinonide (Lidex 0.05% Oint) 1 applic TOP BID [facility] Last Admin: 08/09/16 09:53 Dose: 1 appl Hydrocortisone (Anusol-Hc) 1 applic [place] BID [facility] Magnesium Hydroxide (Milk Of Magnesia) 30 ml PO DAILY PRN PRN Reason: Constipation Last Admin: 07/17/16 16:39 Dose: 30 ml Midodrine (Proamatine) 10 mg PO TID [facility] Last Admin: 08/09/16 09:54 Dose: 10 mg Pantoprazole Sodium (Protonix Ec Tab) 40 mg PO DAILY [facility] Last Admin: 08/09/16 09:54 Dose: 40 mg Quetiapine Fumarate (Seroquel) 50 mg PO HS PRN PRN Reason: Agitation Last Admin: 08/08/16 20:33 Dose: 50 mg - Labs Labs: 07/24/16 09:15 07/21/16 14:09 - Respiratory Exam Respiratory Exam: NORMAL BREATHING PATTERN - Cardiovascular Exam Cardiovascular Exam: REGULAR RHYTHM - GI/Abdominal Exam GI & Abdominal Exam: Normal Bowel Sounds Assessment and Plan - Assessment and Plan (Free Text) Assessment: Cough Afebrile CXR?? Reconsult Pulmonary Gastroentritis? resolved d/c flagyl LGI bleed Thrombocytopenia MSA Parkinsons DX Paulyy Drager PT Rytary 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
[2016-08-09] MEDS: Hydrocortisone 2.5% (Rectal) CREAM PR SCH ×2 (13:07→19:06)
[2016-08-09 13:26] LABS: BASO % 0.7 % (0.0-2.0); EOS # 0.5 K/uL (0.0-0.7); EOS % 7.3 % (0.0-4.0); HEMOGLOBIN 12.4 g/dL (12.0-18.0); LYMPH # 1.4 K/uL (1.0-4.3); LYMPH % 21.7 % (20.0-40.0); MEAN CELL VOLUME 94.6 fl (80.0-94.0); MEAN CORPUSCULAR HEMOGLOBIN 31.7 pg (27.0-31.0); MEAN CORPUSCULAR HGB CONC 33.5 g/dL (33.0-37.0); MEAN PLATELET VOLUME 10.6 fl (7.2-11.7); MONO # 0.4 K/uL (0.0-0.8); MONO % 6.9 % (0.0-10.0); NEUT # 4.1 K/uL (1.8-7.0); NEUT % 63.4 % (50.0-75.0); NRBC % 0.1 % (0.0-0.0); RBC 3.92 Mil/uL (4.40-5.90); RED CELL DISTRIBUTION WIDTH 14.1 % (11.5-14.5); WHITE BLOOD COUNT 6.5 K/uL (4.8-10.8)
[2016-08-09 13:29] LABS: BLOOD UREA NITROGEN 25 mg/dl (9-20); CALCIUM 9.1 mg/dL (8.4-10.2); GFR AFRICAN-AMERICAN > 60; GFR NON-AFRICAN AMERICAN > 60
--- NOTE | 2016-08-09 13:52 | CP.PCM.CON ---
History of Present Illness - History of Present Illness History of Present Illness: Asked to re-evaluate this 86 year old gentleman because of a recent chest x-ray which showed a hazy/patchy density laterally in the right lung base. He had what sounds as though it may have been a viral syndrome for the past two days prompting the x-ray. Presently he has no cough, sputum or dyspnea. No leukocytosis noted and he is afebrile. Past Patient History - Tetanus Immunizations Tetanus Immunization: Unknown - Past Medical History & Family History Past Medical History?: Yes - Past Social History Smoking Status: Never Smoked - CARDIAC Hx Cardiac Disorders: No Hx Congestive Heart Failure: No Hx Hypercholesterolemia: No Hx Hypertension: No - PULMONARY Hx Chronic Obstructive Pulmonary Disease (COPD): No - NEUROLOGICAL HX Cerebrovascular Accident: No - HEENT Hx HEENT Problems: Yes Hx Cataracts: No Hx Deafness: No Hx Difficulty Chewing: No Hx Epistaxis: No Hx Glaucoma: Yes Hx Macular Degeneration: No - RENAL Hx Renal Failure: No - ENDOCRINE/METABOLIC Hx Diabetes Mellitus Type 1: No Hx Diabetes Mellitus Type 2: No Hx Hypothyroidism: No - HEMATOLOGICAL/ONCOLOGICAL Hx Anemia: No Hx Human Immunodeficiency Virus (HIV): No Hx Sickle Cell Disease: No - INTEGUMENTARY Hx Dermatological Problems: No Hx Basil Cell: No Hx Silva: No Hx Cellulitis: Yes (right leg) Hx Eczema: No Hx Melanoma: No Hx Psoriasis: No Hx Squamous Cell: No - MUSCULOSKELETAL/RHEUMATOLOGICAL Hx Arthritis: No Hx Rheumatoid Arthritis: No - GASTROINTESTINAL Hx Crohn's Disease: No Hx Diverticulitis: No Hx Gall Bladder Disease: No Hx Gastritis: No Hx Pancreatitis: No - GENITOURINARY/GYNECOLOGICAL Hx Sexually Transmitted Disorders: No - PSYCHIATRIC Hx Anxiety: Yes Hx Depression: Yes - SURGICAL HISTORY Hx Appendectomy: Yes Hx Carotid Endarterectomy: No Hx Cholecystectomy: No Hx Coronary Artery Bypass Graft: No Hx Coronary Stent: No Hx Tonsillectomy: Yes - ANESTHESIA Hx Anesthesia: Yes Hx Anesthesia Reactions: No Hx Malignant Hyperthermia: No Meds Allergies/Adverse Reactions: Allergies Allergy/AdvReac Type Severity Reaction Status Date / Time Penicillins Allergy Hives Verified 08/01/15 06:34 - Medications Medications: Current Medications Acetaminophen (Tylenol 325mg Tab) 650 mg PO Q6 PRN PRN Reason: Pain, Mild (1-3) Last Admin: 08/05/16 12:32 Dose: 650 mg Benzocaine/Menthol (Cepacol Sore Throat) 1 morro PO Q3 PRN PRN Reason: Sore Throat Last Admin: 08/09/16 10:01 Dose: 1 morro Bethanechol Chloride (Urecholine) 50 mg PO TID [facility] Last Admin: 08/09/16 13:07 Dose: 50 mg Carbidopa/Levodopa (Rytary Er 48.75 Mg-195 Mg Cap) 1 cap PO TID@0500,1300,2100 [facility] Last Admin: 08/09/16 13:07 Dose: 1 cap Fluocinonide (Lidex 0.05% Oint) 1 applic TOP BID [facility] Last Admin: 08/09/16 09:53 Dose: 1 appl Hydrocortisone (Anusol-Hc) 1 applic [place] BID [facility] Last Admin: 08/09/16 13:07 Dose: 1 unit Magnesium Hydroxide (Milk Of Magnesia) 30 ml PO DAILY PRN PRN Reason: Constipation Last Admin: 07/17/16 16:39 Dose: 30 ml Midodrine (Proamatine) 10 mg PO TID [facility] Last Admin: 08/09/16 09:54 Dose: 10 mg Pantoprazole Sodium (Protonix Ec Tab) 40 mg PO DAILY [facility] Last Admin: 08/09/16 09:54 Dose: 40 mg Quetiapine Fumarate (Seroquel) 50 mg PO HS PRN PRN Reason: Agitation Last Admin: 08/08/16 20:33 Dose: 50 mg Physical Exam - Additional Findings Additional findings: Neck is supple and trachea midline. No dullness on chest percussion. Breath sounds are diminished bilaterally. No rales or wheezes. No bronchial breath sounds or egophony. Rare basal rhonchi on the right. Results - Vital Signs Recent Vital Signs: Last Vital Signs Temp 98.3 F 08/09/16 07:39 Pulse 62 08/09/16 07:39 Resp 20 08/09/16 07:39 BP 125/56 L 08/09/16 07:39 Pulse Ox 98 08/09/16 07:39 - Labs Result Diagrams: 08/09/16 13:05 08/09/16 13:05 Labs: Laboratory Results - last 24 hr 08/09/16 13:05 WBC 6.5 RBC 3.92 L Hgb 12.4 Hct 37.1 MCV 94.6 H MCH 31.7 H MCHC 33.5 RDW 14.1 Plt Count 95 L MPV 10.6 Neut % (Auto) 63.4 Lymph % (Auto) 21.7 Bent % (Auto) 6.9 Eos % (Auto) 7.3 H Baso % (Auto) 0.7 Neut # 4.1 Lymph # 1.4 Bent # 0.4 Eos # 0.5 Baso # 0.0 Sodium 141 Potassium 4.3 Chloride 103 Carbon Dioxide 28 Anion Gap 14 BUN 25 H Creatinine 0.8 Est GFR ( Amer) > 60 Est GFR (Non-Af Amer) > 60 Random Glucose 116 H Calcium 9.1 Assessment & Plan (1) Pneumonia Status: Resolved (2) Opacity of lung on imaging study Status: Chronic Priority: Medium Comment: Probably represents an area of basal atelectasis on the right. No fever or leukocytosis. No evidence on exam to suggest an acute pneumonic process. Will not use antibiotic presently and simply observe for change in status. Encourage coughing and deep breathing and repeat CXR on Friday. - Date & Time Date: 08/09/16 Time: 13:52
[2016-08-10] MEDS: LEVODOPA PO SCH ×3 (05:18→20:42)
[2016-08-10] MEDS: CARBIDOPA PO SCH ×3 (05:18→20:42)
[2016-08-10] MEDS: Bethanechol 50 MG TAB PO SCH ×3 (09:54→16:19)
[2016-08-10] MEDS: Hydrocortisone 2.5% (Rectal) CREAM PR SCH ×2 (09:54→16:16)
[2016-08-10] MEDS: Pantoprazole 40 mg EC Tab PO SCH (09:54)
[2016-08-10] MEDS: Benzocaine/Menthol (Cepacol) Lozenge PO PRN (10:22)
--- NOTE | 2016-08-10 10:52 | PN ---
DATE: 08/10/2016 The patient seen for Dr. Fernández while he is away. The patient seen and examined. Interim events no tee. The patient remains on medical floor. The patient is awake, responsive, confused, dementia, bu t denies any specific medical complaint. No chest pain or shortness of breath. No specific medical issues reported by nursing staff. PHYSICAL EXAMINATION: GENERAL: The patient is in no acute distress. VITAL SIGNS: Stable. HEART: S1, S2 normal, regular. LUNGS: Good bilateral air exchange. ABDOMEN: Soft, nontender. EXTREMITIES: No edema, no calf swelling, no tenderness, no acute ischemia. CENTRAL NERVOUS SYSTEM: Essentially unchanged. AVAILABLE DIAGNOSTIC DATA: Reviewed. Overall, patient's general medical condition is stable, waiting for ____ and placement. PLAN: As ordered. Rashaun Mendoza MD cc: [id number] TT: 08/10/2016 10:52:03 Confirmation # [id number] Dictation # [id number] [email or web address]
[2016-08-11] MEDS: CARBIDOPA PO SCH ×3 (04:29→21:57)
[2016-08-11] MEDS: LEVODOPA PO SCH ×3 (04:29→21:57)
[2016-08-11] MEDS: Hydrocortisone 2.5% (Rectal) CREAM PR SCH ×2 (08:55→16:07)
[2016-08-11] MEDS: Bethanechol 50 MG TAB PO SCH ×3 (08:56→16:07)
[2016-08-11] MEDS: Pantoprazole 40 mg EC Tab PO SCH (09:04)
[2016-08-11] MEDS: Magnesium Hydroxide Susp 30 ml UD PO PRN (09:04)
[2016-08-11] MEDS: Benzocaine/Menthol (Cepacol) Lozenge PO PRN (13:37)
[2016-08-12] MEDS: LEVODOPA PO SCH ×3 (04:42→21:24)
[2016-08-12] MEDS: CARBIDOPA PO SCH ×3 (04:42→21:24)
[2016-08-12] MEDS: Bethanechol 50 MG TAB PO SCH ×3 (08:59→16:41)
[2016-08-12] MEDS: Pantoprazole 40 mg EC Tab PO SCH (09:00)
[2016-08-12] MEDS: Hydrocortisone 2.5% (Rectal) CREAM PR SCH ×2 (09:02→16:40)
--- NOTE | 2016-08-12 12:13 | RAD ---
HISTORY: pneumonia COMPARISON: Comparison chest dated 08/08/2016. Examination is somewhat limited due to patient rotation as well as poor inspiration. FINDINGS: LUNGS: Examination is somewhat limited the due to poor inspiration and patient rotation to the right. There appears to be mild crowded bronchovascular markings and mild bibasilar atelectasis. Previously noted vague patchy opacity in the right lung base again noted however less well seen on this study due to patient rotation. Mild left basilar atelectasis. PLEURA: No significant pleural effusion identified, no pneumothorax apparent. CARDIOVASCULAR: Heart is enlarged. Aorta is ectatic and uncoiled. OSSEOUS STRUCTURES: No significant abnormalities. VISUALIZED UPPER ABDOMEN: Normal. OTHER FINDINGS: None. IMPRESSION: Limited study with vague patchy opacity in the right lung base again noted however less well seen on this study due to patient rotation. Mild left basilar atelectasis.
[2016-08-13] MEDS: CARBIDOPA PO SCH ×3 (04:54→20:50)
[2016-08-13] MEDS: LEVODOPA PO SCH ×3 (04:54→20:50)
[2016-08-13] MEDS: Bethanechol 50 MG TAB PO SCH ×3 (09:16→16:37)
[2016-08-13] MEDS: Hydrocortisone 2.5% (Rectal) CREAM PR SCH ×2 (09:17→16:38)
[2016-08-13] MEDS: Pantoprazole 40 mg EC Tab PO SCH (09:17)
[2016-08-14] MEDS: CARBIDOPA PO SCH ×3 (05:20→21:27)
[2016-08-14] MEDS: LEVODOPA PO SCH ×3 (05:20→21:27)
--- NOTE | 2016-08-14 10:05 | PN ---
DATE: 08/14/2016 The patient seen and examined. Interim events noted. Consults noted, appreciated. Physiatry interv ention noted and appreciated. The patient remains in acute rehab unit. The patient feels okay. No specific medical complaints. No specific issue reported by nursing staff. PHYSICAL EXAMINATION: GENERAL: The patient is in no acute distress. VITAL SIGNS: Stable. HEART: S1, S2 normal, regular. LUNGS: Good bilateral air exchange. ABDOMEN: Soft, nontender. EXTREMITIES: No edema, no calf swelling, no tenderness. No acute ischemia. CENTRAL NERVOUS SYSTEM: Essentially unchanged. DIAGNOSTIC DATA: Available diagnostic data reviewed. Overall, patient's general medical condition is stable and improving with physical therapy. PLAN: As ordered. Rashaun Mendoza MD cc: [id number] TT: 08/14/2016 10:05:21 Confirmation # [id number] Dictation # [id number] [email or web address]
[2016-08-14] MEDS: Bethanechol 50 MG TAB PO SCH ×3 (11:13→18:03)
[2016-08-14] MEDS: Pantoprazole 40 mg EC Tab PO SCH (11:13)
[2016-08-14] MEDS: Hydrocortisone 2.5% (Rectal) CREAM PR SCH ×2 (11:14→18:02)
[2016-08-15] MEDS: LEVODOPA PO SCH ×3 (05:19→20:18)
[2016-08-15] MEDS: CARBIDOPA PO SCH ×3 (05:19→20:18)
[2016-08-15] MEDS: Pantoprazole 40 mg EC Tab PO SCH (08:38)
[2016-08-15] MEDS: Bethanechol 50 MG TAB PO SCH ×3 (08:38→16:30)
[2016-08-15] MEDS: Hydrocortisone 2.5% (Rectal) CREAM PR SCH ×2 (08:42→16:30)
[2016-08-15] MEDS: Benzocaine/Menthol (Cepacol) Lozenge PO PRN (18:18)
--- NOTE | 2016-08-15 20:49 | CP.PCM.PN ---
Subjective - Date & Time of Evaluation Date of Evaluation: 08/15/16 Time of Evaluation: 22:22 - Subjective Subjective: Doing well Above reviewed Objective - Vital Signs/Intake and Output Vital Signs (last 24 hours): Temp Pulse Resp BP Pulse Ox 97.3 F L 62 20 153/74 H 99 08/15/16 20:33 08/15/16 20:33 08/15/16 20:33 08/15/16 20:33 08/15/16 20:33 - Medications Medications: Current Medications Acetaminophen (Tylenol 325mg Tab) 650 mg PO Q6 PRN PRN Reason: Pain, Mild (1-3) Last Admin: 08/15/16 16:30 Dose: 650 mg Benzocaine/Menthol (Cepacol Sore Throat) 1 morro PO Q3 PRN PRN Reason: Sore Throat Last Admin: 08/15/16 18:18 Dose: 1 morro Bethanechol Chloride (Urecholine) 50 mg PO TID [facility] Last Admin: 08/15/16 16:30 Dose: 50 mg Carbidopa/Levodopa (Rytary Er 48.75 Mg-195 Mg Cap) 1 cap PO TID@0500,1300,2100 [facility] Last Admin: 08/15/16 20:18 Dose: 1 cap Docusate Sodium (Colace) 100 mg PO BID [facility] Last Admin: 08/15/16 16:30 Dose: 100 mg Fluocinonide (Lidex 0.05% Oint) 1 applic TOP BID [facility] Last Admin: 08/15/16 16:53 Dose: 1 appl Hydrocortisone (Anusol-Hc) 1 applic [place] BID [facility] Last Admin: 08/15/16 16:30 Dose: 1 unit Magnesium Hydroxide (Milk Of Magnesia) 30 ml PO DAILY PRN PRN Reason: Constipation Last Admin: 08/11/16 09:04 Dose: 30 ml Midodrine (Proamatine) 10 mg PO TID [facility] Last Admin: 08/15/16 16:31 Dose: 10 mg Pantoprazole Sodium (Protonix Ec Tab) 40 mg PO DAILY [facility] Last Admin: 08/15/16 08:38 Dose: 40 mg Quetiapine Fumarate (Seroquel) 50 mg PO HS PRN PRN Reason: Agitation Last Admin: 08/08/16 20:33 Dose: 50 mg - Labs Labs: 08/09/16 13:05 08/09/16 13:05 - Respiratory Exam Respiratory Exam: NORMAL BREATHING PATTERN - Cardiovascular Exam Cardiovascular Exam: REGULAR RHYTHM - GI/Abdominal Exam GI & Abdominal Exam: Normal Bowel Sounds Assessment and Plan - Assessment and Plan (Free Text) Assessment: Atelectasis Afebrile MSA Parkinsons DX 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 awaiting transfer to [place] Pt is competent Social service and family involved Pt is [place] Gastroentritis? 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
[2016-08-16] MEDS: CARBIDOPA PO SCH ×3 (04:57→20:51)
[2016-08-16] MEDS: LEVODOPA PO SCH ×3 (04:57→20:51)
[2016-08-16] MEDS: Bethanechol 50 MG TAB PO SCH ×3 (09:22→16:45)
[2016-08-16] MEDS: Hydrocortisone 2.5% (Rectal) CREAM PR SCH ×2 (09:22→18:27)
[2016-08-16] MEDS: Pantoprazole 40 mg EC Tab PO SCH (09:22)
--- NOTE | 2016-08-16 11:44 | PN ---
DATE: 08/14/2016 The patient is for Dr. Cornejo. The patient seen and examined. Interim events noted. The patient feels okay. No specific medical c omplaint. No specific issue reported by nursing staff. PHYSICAL EXAMINATION: GENERAL: The patient is in no acute distress. VITAL SIGNS: Stable. HEART: S1, S2 normal, regular. LUNGS: Good bilateral air entry. ABDOMEN: Soft, nontender. EXTREMITIES: No edema, no calf swelling, no tenderness, no acute ischemia. CENTRAL NERVOUS SYSTEM: Essentially unchanged. DIAGNOSTIC DATA: Available diagnostic data reviewed. Overall, patient's general medical condition is stable, awaiting disposition. PLAN: As ordered. Rashaun Mendoza MD cc: [id number] TT: 08/14/2016 10:06:17 Confirmation # [id number] Dictation # [id number] isamar
[2016-08-16] MEDS: Magnesium Hydroxide Susp 30 ml UD PO PRN (13:30)
[2016-08-16] MEDS: Benzocaine/Menthol (Cepacol) Lozenge PO PRN (15:35)
--- NOTE | 2016-08-16 18:34 | CP.PCM.PN ---
Subjective - Date & Time of Evaluation Date of Evaluation: 08/16/16 Time of Evaluation: 22:22 - Subjective Subjective: Above noted Objective - Vital Signs/Intake and Output Vital Signs (last 24 hours): Temp Pulse Resp BP Pulse Ox 98.0 F 89 20 130/68 99 08/16/16 16:05 08/16/16 16:05 08/16/16 16:05 08/16/16 16:05 08/16/16 16:05 - Medications Medications: Current Medications Acetaminophen (Tylenol 325mg Tab) 650 mg PO Q6 PRN PRN Reason: Pain, Mild (1-3) Last Admin: 08/15/16 16:30 Dose: 650 mg Benzocaine/Menthol (Cepacol Sore Throat) 1 morro PO Q3 PRN PRN Reason: Sore Throat Last Admin: 08/16/16 15:35 Dose: 1 morro Bethanechol Chloride (Urecholine) 50 mg PO TID [facility] Last Admin: 08/16/16 16:45 Dose: 50 mg Carbidopa/Levodopa (Rytary Er 48.75 Mg-195 Mg Cap) 1 cap PO TID@0500,1300,2100 [facility] Last Admin: 08/16/16 12:31 Dose: 1 cap Docusate Sodium (Colace) 100 mg PO BID [facility] Last Admin: 08/16/16 16:45 Dose: 100 mg Fluocinonide (Lidex 0.05% Oint) 1 applic TOP BID [facility] Last Admin: 08/16/16 18:27 Dose: 1 appl Hydrocortisone (Anusol-Hc) 1 applic [place] BID [facility] Last Admin: 08/16/16 18:27 Dose: 1 unit Magnesium Hydroxide (Milk Of Magnesia) 30 ml PO DAILY PRN PRN Reason: Constipation Last Admin: 08/16/16 13:30 Dose: 30 ml Midodrine (Proamatine) 10 mg PO TID [facility] Last Admin: 08/16/16 16:45 Dose: 10 mg Pantoprazole Sodium (Protonix Ec Tab) 40 mg PO DAILY [facility] Last Admin: 08/16/16 09:22 Dose: 40 mg Quetiapine Fumarate (Seroquel) 50 mg PO HS PRN PRN Reason: Agitation Last Admin: 08/08/16 20:33 Dose: 50 mg - Labs Labs: 08/09/16 13:05 08/09/16 13:05 - Respiratory Exam Respiratory Exam: NORMAL BREATHING PATTERN - Cardiovascular Exam Cardiovascular Exam: REGULAR RHYTHM - GI/Abdominal Exam GI & Abdominal Exam: Normal Bowel Sounds Assessment and Plan - Assessment and Plan (Free Text) Assessment: Atelectasis Afebrile MSA Parkinsons DX 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 awaiting transfer to [place] Pt is competent Social service and family involved Pt is [place] Gastroentritis? 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
[2016-08-17] MEDS: LEVODOPA PO SCH ×3 (04:51→20:51)
[2016-08-17] MEDS: CARBIDOPA PO SCH ×3 (04:51→20:51)
[2016-08-17] MEDS: Bethanechol 50 MG TAB PO SCH ×3 (08:37→17:00)
[2016-08-17] MEDS: Pantoprazole 40 mg EC Tab PO SCH (08:37)
[2016-08-17] MEDS: Hydrocortisone 2.5% (Rectal) CREAM PR SCH ×2 (08:38→17:00)
[2016-08-17] MEDS: Benzocaine/Menthol (Cepacol) Lozenge PO PRN ×3 (09:00→18:12)
[2016-08-17] MEDS: Magnesium Hydroxide Susp 30 ml UD PO PRN (18:12)
--- NOTE | 2016-08-17 23:42 | CP.PCM.PN ---
Subjective - Date & Time of Evaluation Date of Evaluation: 08/17/16 Time of Evaluation: 22:22 - Subjective Subjective: Sleeping Objective - Vital Signs/Intake and Output Vital Signs (last 24 hours): Temp Pulse Resp BP Pulse Ox 97.3 F L 86 20 132/75 97 08/17/16 20:20 08/17/16 20:20 08/17/16 20:20 08/17/16 20:20 08/17/16 20:20 - Medications Medications: Current Medications Acetaminophen (Tylenol 325mg Tab) 650 mg PO Q6 PRN PRN Reason: Pain, Mild (1-3) Last Admin: 08/15/16 16:30 Dose: 650 mg Benzocaine/Menthol (Cepacol Sore Throat) 1 morro PO Q3 PRN PRN Reason: Sore Throat Last Admin: 08/17/16 18:12 Dose: 1 morro Bethanechol Chloride (Urecholine) 50 mg PO TID [facility] Last Admin: 08/17/16 17:00 Dose: 50 mg Carbidopa/Levodopa (Rytary Er 48.75 Mg-195 Mg Cap) 1 cap PO TID@0500,1300,2100 [facility] Last Admin: 08/17/16 20:51 Dose: 1 cap Docusate Sodium (Colace) 100 mg PO BID [facility] Last Admin: 08/17/16 17:00 Dose: 100 mg Fluocinonide (Lidex 0.05% Oint) 1 applic TOP BID [facility] Last Admin: 08/17/16 17:01 Dose: 1 appl Hydrocortisone (Anusol-Hc) 1 applic [place] BID [facility] Last Admin: 08/17/16 17:00 Dose: 1 unit Magnesium Hydroxide (Milk Of Magnesia) 30 ml PO DAILY PRN PRN Reason: Constipation Last Admin: 08/17/16 18:12 Dose: 30 ml Midodrine (Proamatine) 10 mg PO TID [facility] Last Admin: 08/17/16 17:00 Dose: 10 mg Pantoprazole Sodium (Protonix Ec Tab) 40 mg PO DAILY [facility] Last Admin: 08/17/16 08:37 Dose: 40 mg Quetiapine Fumarate (Seroquel) 50 mg PO HS PRN PRN Reason: Agitation Last Admin: 08/08/16 20:33 Dose: 50 mg - Labs Labs: 08/09/16 13:08/09/16 13:05 - Respiratory Exam Respiratory Exam: NORMAL BREATHING PATTERN - Cardiovascular Exam Cardiovascular Exam: REGULAR RHYTHM - GI/Abdominal Exam GI & Abdominal Exam: Hyperactive Bowel Sounds, Normal Bowel Sounds Assessment and Plan - Assessment and Plan (Free Text) Assessment: MSA Parkinsons DX 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 awaiting transfer to [place] Pt is competent Social service and family involved Pt is [place] Atelectasis Afebrile Gastroentritis? 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
[2016-08-18] MEDS: LEVODOPA PO SCH ×3 (05:15→21:11)
[2016-08-18] MEDS: CARBIDOPA PO SCH ×3 (05:15→21:11)
[2016-08-18] MEDS: Hydrocortisone 2.5% (Rectal) CREAM PR SCH ×2 (09:34→18:14)
[2016-08-18] MEDS: Bethanechol 50 MG TAB PO SCH ×3 (09:35→18:13)
[2016-08-18] MEDS: Pantoprazole 40 mg EC Tab PO SCH (09:35)
--- NOTE | 2016-08-18 12:39 | CP.PCM.PN ---
Subjective - Date & Time of Evaluation Date of Evaluation: 08/18/16 Time of Evaluation: 22:22 - Subjective Subjective: Above noted Objective - Vital Signs/Intake and Output Vital Signs (last 24 hours): Temp Pulse Resp BP Pulse Ox 98.9 F 70 20 112/68 97 08/18/16 07:48 08/18/16 07:48 08/18/16 07:48 08/18/16 07:48 08/18/16 07:48 - Medications Medications: Current Medications Acetaminophen (Tylenol 325mg Tab) 650 mg PO Q6 PRN PRN Reason: Pain, Mild (1-3) Last Admin: 08/15/16 16:30 Dose: 650 mg Benzocaine/Menthol (Cepacol Sore Throat) 1 morro PO Q3 PRN PRN Reason: Sore Throat Last Admin: 08/17/16 18:12 Dose: 1 morro Bethanechol Chloride (Urecholine) 50 mg PO TID [facility] Last Admin: 08/18/16 12:02 Dose: 50 mg Carbidopa/Levodopa (Rytary Er 48.75 Mg-195 Mg Cap) 1 cap PO TID@0500,1300,2100 [facility] Last Admin: 08/18/16 12:03 Dose: 1 cap Docusate Sodium (Colace) 100 mg PO BID [facility] Last Admin: 08/18/16 09:35 Dose: 100 mg Fluocinonide (Lidex 0.05% Oint) 1 applic TOP BID [facility] Last Admin: 08/18/16 09:34 Dose: 1 appl Hydrocortisone (Anusol-Hc) 1 applic [place] BID [facility] Last Admin: 08/18/16 09:34 Dose: 1 unit Magnesium Hydroxide (Milk Of Magnesia) 30 ml PO DAILY PRN PRN Reason: Constipation Last Admin: 08/17/16 18:12 Dose: 30 ml Midodrine (Proamatine) 10 mg PO TID [facility] Last Admin: 08/18/16 12:02 Dose: 10 mg Pantoprazole Sodium (Protonix Ec Tab) 40 mg PO DAILY [facility] Last Admin: 08/18/16 09:35 Dose: 40 mg Quetiapine Fumarate (Seroquel) 50 mg PO HS PRN PRN Reason: Agitation Last Admin: 08/08/16 20:33 Dose: 50 mg - Labs Labs: 08/09/16 13:08/09/16 13:05 - Respiratory Exam Respiratory Exam: NORMAL BREATHING PATTERN - Cardiovascular Exam Cardiovascular Exam: REGULAR RHYTHM - GI/Abdominal Exam GI & Abdominal Exam: Guarding, Normal Bowel Sounds Assessment and Plan - Assessment and Plan (Free Text) Assessment: MSA Parkinsons DX 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 awaiting transfer to [place] Pt is competent Social service and family involved Pt is [place] Atelectasis Afebrile Gastroentritis? 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
[2016-08-18] MEDS: Benzocaine/Menthol (Cepacol) Lozenge PO PRN (14:37)
[2016-08-19] MEDS: Benzocaine/Menthol (Cepacol) Lozenge PO PRN ×4 (00:38→17:56)
[2016-08-19] MEDS: CARBIDOPA PO SCH ×3 (05:51→20:22)
[2016-08-19] MEDS: LEVODOPA PO SCH ×3 (05:51→20:22)
[2016-08-19] MEDS: Pantoprazole 40 mg EC Tab PO SCH (08:43)
[2016-08-19] MEDS: Bethanechol 50 MG TAB PO SCH ×3 (08:43→17:56)
[2016-08-19] MEDS: Hydrocortisone 2.5% (Rectal) CREAM PR SCH ×2 (08:44→17:56)
--- NOTE | 2016-08-19 20:12 | CP.PCM.PN ---
Subjective - Date & Time of Evaluation Date of Evaluation: 08/19/16 Time of Evaluation: 22:22 - Subjective Subjective: No change Objective - Vital Signs/Intake and Output Vital Signs (last 24 hours): Temp Pulse Resp BP Pulse Ox 97.6 F 64 20 133/74 98 08/19/16 16:16 08/19/16 16:16 08/19/16 16:16 08/19/16 16:16 08/19/16 16:16 - Medications Medications: Current Medications Acetaminophen (Tylenol 325mg Tab) 650 mg PO Q6 PRN PRN Reason: Pain, Mild (1-3) Last Admin: 08/15/16 16:30 Dose: 650 mg Benzocaine/Menthol (Cepacol Sore Throat) 1 morro PO Q3 PRN PRN Reason: Sore Throat Last Admin: 08/19/16 17:56 Dose: 1 morro Bethanechol Chloride (Urecholine) 50 mg PO TID [facility] Last Admin: 08/19/16 17:56 Dose: 50 mg Carbidopa/Levodopa (Rytary Er 48.75 Mg-195 Mg Cap) 1 cap PO TID@0500,1300,2100 [facility] Last Admin: 08/19/16 13:24 Dose: 1 cap Docusate Sodium (Colace) 100 mg PO BID [facility] Last Admin: 08/19/16 17:56 Dose: 100 mg Fluocinonide (Lidex 0.05% Oint) 1 applic TOP BID [facility] Last Admin: 08/19/16 17:56 Dose: 1 appl Hydrocortisone (Anusol-Hc) 1 applic [place] BID [facility] Last Admin: 08/19/16 17:56 Dose: 1 unit Magnesium Hydroxide (Milk Of Magnesia) 30 ml PO DAILY PRN PRN Reason: Constipation Last Admin: 08/17/16 18:12 Dose: 30 ml Midodrine (Proamatine) 10 mg PO TID [facility] Last Admin: 08/19/16 17:56 Dose: 10 mg Pantoprazole Sodium (Protonix Ec Tab) 40 mg PO DAILY [facility] Last Admin: 08/19/16 08:43 Dose: 40 mg Quetiapine Fumarate (Seroquel) 50 mg PO HS PRN PRN Reason: Agitation Last Admin: 08/08/16 20:33 Dose: 50 mg - Labs Labs: 08/09/16 13:05 08/09/16 13:05 - Respiratory Exam Respiratory Exam: NORMAL BREATHING PATTERN - Cardiovascular Exam Cardiovascular Exam: REGULAR RHYTHM - GI/Abdominal Exam GI & Abdominal Exam: Normal Bowel Sounds Assessment and Plan - Assessment and Plan (Free Text) Assessment: MSA Parkinsons DX Lilia Drager PT Rytary 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 awaiting transfer to [place] Pt is competent Social service and family involved Pt is [place] Atelectasis Afebrile Gastroentritis? 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
[2016-08-20] MEDS: Bethanechol 50 MG TAB PO SCH ×3 (08:23→16:15)
[2016-08-20] MEDS: Pantoprazole 40 mg EC Tab PO SCH (08:23)
[2016-08-20] MEDS: LEVODOPA PO SCH ×3 (08:24→21:41)
[2016-08-20] MEDS: CARBIDOPA PO SCH ×3 (08:24→21:41)
[2016-08-20] MEDS: Hydrocortisone 2.5% (Rectal) CREAM PR SCH ×2 (08:24→16:15)
--- NOTE | 2016-08-20 17:00 | CP.PCM.PN ---
Subjective - Date & Time of Evaluation Date of Evaluation: 08/20/16 Time of Evaluation: 22:22 - Subjective Subjective: No change Objective - Vital Signs/Intake and Output Vital Signs (last 24 hours): Temp Pulse Resp BP Pulse Ox 97.5 F L 61 20 105/63 95 08/20/16 16:15 08/20/16 16:15 08/20/16 16:15 08/20/16 16:15 08/20/16 16:15 - Medications Medications: Current Medications Acetaminophen (Tylenol 325mg Tab) 650 mg PO Q6 PRN PRN Reason: Pain, Mild (1-3) Last Admin: 08/15/16 16:30 Dose: 650 mg Benzocaine/Menthol (Cepacol Sore Throat) 1 morro PO Q3 PRN PRN Reason: Sore Throat Last Admin: 08/19/16 17:56 Dose: 1 morro Bethanechol Chloride (Urecholine) 50 mg PO TID [facility] Last Admin: 08/20/16 16:15 Dose: 50 mg Carbidopa/Levodopa (Rytary Er 48.75 Mg-195 Mg Cap) 1 cap PO TID@0500,1300,2100 [facility] Last Admin: 08/20/16 12:34 Dose: 1 cap Docusate Sodium (Colace) 100 mg PO BID [facility] Last Admin: 08/20/16 16:15 Dose: 100 mg Fluocinonide (Lidex 0.05% Oint) 1 applic TOP BID [facility] Last Admin: 08/20/16 16:15 Dose: 1 appl Hydrocortisone (Anusol-Hc) 1 applic [place] BID [facility] Last Admin: 08/20/16 16:15 Dose: 1 unit Magnesium Hydroxide (Milk Of Magnesia) 30 ml PO DAILY PRN PRN Reason: Constipation Last Admin: 08/17/16 18:12 Dose: 30 ml Midodrine (Proamatine) 10 mg PO TID [facility] Last Admin: 08/20/16 16:15 Dose: 10 mg Pantoprazole Sodium (Protonix Ec Tab) 40 mg PO DAILY [facility] Last Admin: 08/20/16 08:23 Dose: 40 mg Quetiapine Fumarate (Seroquel) 50 mg PO HS PRN PRN Reason: Agitation Last Admin: 08/19/16 20:22 Dose: 50 mg - Labs Labs: 08/09/16 13:05 08/09/16 13:05 - Respiratory Exam Respiratory Exam: NORMAL BREATHING PATTERN - Cardiovascular Exam Cardiovascular Exam: REGULAR RHYTHM - GI/Abdominal Exam GI & Abdominal Exam: Normal Bowel Sounds Assessment and Plan - Assessment and Plan (Free Text) Assessment: MSA Parkinsons DX Lilia Drager PT Rytary 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 awaiting transfer to [place] Pt is competent Social service and family involved Pt is [place] Atelectasis Afebrile Gastroentritis? 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
[2016-08-21] MEDS: CARBIDOPA PO SCH ×3 (05:31→20:58)
[2016-08-21] MEDS: LEVODOPA PO SCH ×3 (05:31→20:58)
[2016-08-21] MEDS: Bethanechol 50 MG TAB PO SCH ×3 (09:57→17:06)
[2016-08-21] MEDS: Benzocaine/Menthol (Cepacol) Lozenge PO PRN ×2 (09:57→17:44)
[2016-08-21] MEDS: Hydrocortisone 2.5% (Rectal) CREAM PR SCH ×2 (09:58→17:07)
[2016-08-21] MEDS: Pantoprazole 40 mg EC Tab PO SCH (09:58)
--- NOTE | 2016-08-21 18:44 | CP.PCM.PN ---
Subjective - Date & Time of Evaluation Date of Evaluation: 08/21/16 Time of Evaluation: 22:22 - Subjective Subjective: Above noted Objective - Vital Signs/Intake and Output Vital Signs (last 24 hours): Temp Pulse Resp BP Pulse Ox 97.5 F L 79 20 144/76 98 08/21/16 16:37 08/21/16 16:37 08/21/16 16:37 08/21/16 16:37 08/21/16 16:37 - Medications Medications: Current Medications Acetaminophen (Tylenol 325mg Tab) 650 mg PO Q6 PRN PRN Reason: Pain, Mild (1-3) Last Admin: 08/21/16 11:15 Dose: 650 mg Benzocaine/Menthol (Cepacol Sore Throat) 1 morro PO Q3 PRN PRN Reason: Sore Throat Last Admin: 08/21/16 17:44 Dose: 1 morro Bethanechol Chloride (Urecholine) 50 mg PO TID [facility] Last Admin: 08/21/16 17:06 Dose: 50 mg Carbidopa/Levodopa (Rytary Er 48.75 Mg-195 Mg Cap) 1 cap PO TID@0500,1300,2100 [facility] Last Admin: 08/21/16 13:06 Dose: 1 cap Docusate Sodium (Colace) 100 mg PO BID [facility] Last Admin: 08/21/16 17:44 Dose: 100 mg Fluocinonide (Lidex 0.05% Oint) 1 applic TOP BID [facility] Last Admin: 08/21/16 17:07 Dose: 1 appl Hydrocortisone (Anusol-Hc) 1 applic [place] BID [facility] Last Admin: 08/21/16 17:07 Dose: 1 unit Magnesium Hydroxide (Milk Of Magnesia) 30 ml PO DAILY PRN PRN Reason: Constipation Last Admin: 08/17/16 18:12 Dose: 30 ml Midodrine (Proamatine) 10 mg PO TID [facility] Last Admin: 08/21/16 17:06 Dose: 10 mg Pantoprazole Sodium (Protonix Ec Tab) 40 mg PO DAILY [facility] Last Admin: 08/21/16 09:58 Dose: 40 mg Quetiapine Fumarate (Seroquel) 50 mg PO HS PRN PRN Reason: Agitation Last Admin: 08/19/16 20:22 Dose: 50 mg - Labs Labs: 08/09/16 13:05 08/09/16 13:05 - Respiratory Exam Respiratory Exam: NORMAL BREATHING PATTERN - Cardiovascular Exam Cardiovascular Exam: REGULAR RHYTHM - GI/Abdominal Exam GI & Abdominal Exam: Normal Bowel Sounds Assessment and Plan - Assessment and Plan (Free Text) Assessment: MSA Parkinsons DX Lilia Drager PT Rytary 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 awaiting transfer to [place] Pt is competent Social service and family involved Pt is [place] Atelectasis Afebrile Gastroentritis? 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
[2016-08-22] MEDS: CARBIDOPA PO SCH ×3 (05:00→21:20)
[2016-08-22] MEDS: LEVODOPA PO SCH ×3 (05:00→21:20)
[2016-08-22] MEDS: Pantoprazole 40 mg EC Tab PO SCH (09:18)
[2016-08-22] MEDS: Bethanechol 50 MG TAB PO SCH ×3 (09:18→17:41)
[2016-08-22] MEDS: Hydrocortisone 2.5% (Rectal) CREAM PR SCH ×2 (09:18→17:41)
[2016-08-22] MEDS: Benzocaine/Menthol (Cepacol) Lozenge PO PRN (17:45)
--- NOTE | 2016-08-22 20:14 | CP.PCM.PN ---
Subjective - Date & Time of Evaluation Date of Evaluation: 08/22/16 Time of Evaluation: 22:22 - Subjective Subjective: Above noted Objective - Vital Signs/Intake and Output Vital Signs (last 24 hours): Temp Pulse Resp BP Pulse Ox 97.3 F L 73 20 144/87 97 08/22/16 16:24 08/22/16 16:24 08/22/16 16:24 08/22/16 16:24 08/22/16 16:24 - Medications Medications: Current Medications Acetaminophen (Tylenol 325mg Tab) 650 mg PO Q6 PRN PRN Reason: Pain, Mild (1-3) Last Admin: 08/21/16 11:15 Dose: 650 mg Benzocaine/Menthol (Cepacol Sore Throat) 1 morro PO Q3 PRN PRN Reason: Sore Throat Last Admin: 08/22/16 17:45 Dose: 1 morro Bethanechol Chloride (Urecholine) 50 mg PO TID [facility] Last Admin: 08/22/16 17:41 Dose: 50 mg Carbidopa/Levodopa (Rytary Er 48.75 Mg-195 Mg Cap) 1 cap PO TID@0500,1300,2100 [facility] Last Admin: 08/22/16 13:45 Dose: 1 cap Docusate Sodium (Colace) 100 mg PO BID [facility] Last Admin: 08/22/16 17:41 Dose: 100 mg Fluocinonide (Lidex 0.05% Oint) 1 applic TOP BID [facility] Last Admin: 08/22/16 17:41 Dose: 1 appl Hydrocortisone (Anusol-Hc) 1 applic [place] BID [facility] Last Admin: 08/22/16 17:41 Dose: 1 unit Magnesium Hydroxide (Milk Of Magnesia) 30 ml PO DAILY PRN PRN Reason: Constipation Last Admin: 08/17/16 18:12 Dose: 30 ml Midodrine (Proamatine) 10 mg PO TID [facility] Last Admin: 08/22/16 17:41 Dose: 10 mg Pantoprazole Sodium (Protonix Ec Tab) 40 mg PO DAILY [facility] Last Admin: 08/22/16 09:18 Dose: 40 mg Quetiapine Fumarate (Seroquel) 50 mg PO HS PRN PRN Reason: Agitation Last Admin: 08/19/16 20:22 Dose: 50 mg - Labs Labs: 08/09/16 13:05 08/09/16 13:05 - Respiratory Exam Respiratory Exam: NORMAL BREATHING PATTERN - Cardiovascular Exam Cardiovascular Exam: REGULAR RHYTHM - GI/Abdominal Exam GI & Abdominal Exam: Normal Bowel Sounds Assessment and Plan - Assessment and Plan (Free Text) Assessment: Assessment: MSA Parkinsons DX 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 awaiting transfer to [place] Pt is competent Social service and family involved Pt is [place] Atelectasis Afebrile Gastroentritis? 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
[2016-08-23] MEDS: CARBIDOPA PO SCH ×3 (05:54→20:04)
[2016-08-23] MEDS: LEVODOPA PO SCH ×3 (05:54→20:04)
[2016-08-23] MEDS: Bethanechol 50 MG TAB PO SCH ×3 (10:14→16:12)
[2016-08-23] MEDS: Pantoprazole 40 mg EC Tab PO SCH (10:14)
[2016-08-23] MEDS: Hydrocortisone 2.5% (Rectal) CREAM PR SCH ×2 (10:15→16:11)
--- NOTE | 2016-08-23 15:25 | CP.PCM.PN ---
Subjective - Date & Time of Evaluation Date of Evaluation: 08/23/16 Time of Evaluation: 22:22 - Subjective Subjective: Above noted Objective - Vital Signs/Intake and Output Vital Signs (last 24 hours): Temp Pulse Resp BP Pulse Ox 97.3 F L 76 20 127/61 97 08/23/16 07:35 08/23/16 07:35 08/23/16 07:35 08/23/16 07:35 08/23/16 07:35 - Medications Medications: Current Medications Acetaminophen (Tylenol 325mg Tab) 650 mg PO Q6 PRN PRN Reason: Pain, Mild (1-3) Last Admin: 08/21/16 11:15 Dose: 650 mg Benzocaine/Menthol (Cepacol Sore Throat) 1 morro PO Q3 PRN PRN Reason: Sore Throat Last Admin: 08/22/16 17:45 Dose: 1 morro Bethanechol Chloride (Urecholine) 50 mg PO TID [facility] Last Admin: 08/23/16 13:21 Dose: 50 mg Carbidopa/Levodopa (Rytary Er 48.75 Mg-195 Mg Cap) 1 cap PO TID@0500,1300,2100 [facility] Last Admin: 08/23/16 13:21 Dose: 1 cap Docusate Sodium (Colace) 100 mg PO BID [facility] Last Admin: 08/23/16 10:15 Dose: 100 mg Fluocinonide (Lidex 0.05% Oint) 1 applic TOP BID [facility] Last Admin: 08/23/16 10:15 Dose: 1 appl Hydrocortisone (Anusol-Hc) 1 applic [place] BID [facility] Last Admin: 08/23/16 10:15 Dose: 1 unit Magnesium Hydroxide (Milk Of Magnesia) 30 ml PO DAILY PRN PRN Reason: Constipation Last Admin: 08/17/16 18:12 Dose: 30 ml Midodrine (Proamatine) 10 mg PO TID [facility] Last Admin: 08/23/16 13:21 Dose: 10 mg Pantoprazole Sodium (Protonix Ec Tab) 40 mg PO DAILY [facility] Last Admin: 08/23/16 10:14 Dose: 40 mg Quetiapine Fumarate (Seroquel) 50 mg PO HS PRN PRN Reason: Agitation Last Admin: 08/19/16 20:22 Dose: 50 mg - Labs Labs: 08/09/16 13:05 08/09/16 13:05 - Respiratory Exam Respiratory Exam: NORMAL BREATHING PATTERN - Cardiovascular Exam Cardiovascular Exam: REGULAR RHYTHM - GI/Abdominal Exam GI & Abdominal Exam: Normal Bowel Sounds Assessment and Plan - Assessment and Plan (Free Text) Assessment: MSA Parkinsons DX Lilia Drager PT Rytary 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 awaiting transfer to [place] Pt is competent Social service and family involved Pt is [place] Atelectasis Afebrile Gastroentritis? 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
[2016-08-24] MEDS: CARBIDOPA PO SCH ×3 (04:05→20:49)
[2016-08-24] MEDS: LEVODOPA PO SCH ×3 (04:05→20:49)
[2016-08-24] MEDS: Pantoprazole 40 mg EC Tab PO SCH (09:39)
[2016-08-24] MEDS: Bethanechol 50 MG TAB PO SCH ×3 (09:39→17:38)
[2016-08-24] MEDS: Hydrocortisone 2.5% (Rectal) CREAM PR SCH ×2 (09:39→17:37)
[2016-08-25] MEDS: CARBIDOPA PO SCH ×3 (04:37→20:55)
[2016-08-25] MEDS: LEVODOPA PO SCH ×3 (04:37→20:55)
[2016-08-25] MEDS: Bethanechol 50 MG TAB PO SCH ×3 (08:51→16:26)
[2016-08-25] MEDS: Hydrocortisone 2.5% (Rectal) CREAM PR SCH ×2 (08:51→16:26)
[2016-08-25] MEDS: Pantoprazole 40 mg EC Tab PO SCH (08:52)
--- NOTE | 2016-08-25 14:57 | CP.PCM.PN ---
Subjective - Date & Time of Evaluation Date of Evaluation: 08/25/16 Time of Evaluation: 22:22 - Subjective Subjective: Above noted Objective - Vital Signs/Intake and Output Vital Signs (last 24 hours): Temp Pulse Resp BP Pulse Ox 97.9 F 56 L 20 148/78 96 08/25/16 08:03 08/25/16 08:03 08/25/16 08:03 08/25/16 08:03 08/25/16 08:03 - Medications Medications: Current Medications Acetaminophen (Tylenol 325mg Tab) 650 mg PO Q6 PRN PRN Reason: Pain, Mild (1-3) Last Admin: 08/21/16 11:15 Dose: 650 mg Benzocaine/Menthol (Cepacol Sore Throat) 1 morro PO Q3 PRN PRN Reason: Sore Throat Last Admin: 08/22/16 17:45 Dose: 1 morro Bethanechol Chloride (Urecholine) 50 mg PO TID ON LICENSE OF [facility] Last Admin: 08/25/16 13:16 Dose: 50 mg Carbidopa/Levodopa (Rytary Er 48.75 Mg-195 Mg Cap) 1 cap PO TID@0500,1300,2100 ON LICENSE OF [facility] Last Admin: 08/25/16 13:16 Dose: 1 cap Docusate Sodium (Colace) 100 mg PO BID ON LICENSE OF [facility] Last Admin: 08/25/16 08:51 Dose: 100 mg Fluocinonide (Lidex 0.05% Oint) 1 applic TOP BID ON LICENSE OF [facility] Last Admin: 08/25/16 08:51 Dose: 1 appl Hydrocortisone (Anusol-Hc) 1 applic [place] BID ON LICENSE OF [facility] Last Admin: 08/25/16 08:51 Dose: 1 unit Magnesium Hydroxide (Milk Of Magnesia) 30 ml PO DAILY PRN PRN Reason: Constipation Last Admin: 08/17/16 18:12 Dose: 30 ml Midodrine (Proamatine) 10 mg PO TID ON LICENSE OF [facility] Last Admin: 08/25/16 13:16 Dose: 10 mg Pantoprazole Sodium (Protonix Ec Tab) 40 mg PO DAILY ON LICENSE OF [facility] Last Admin: 08/25/16 08:52 Dose: 40 mg Quetiapine Fumarate (Seroquel) 50 mg PO HS PRN PRN Reason: Agitation Last Admin: 08/19/16 20:22 Dose: 50 mg - Labs Labs: 08/09/16 13:05 08/09/16 13:05 - Respiratory Exam Respiratory Exam: NORMAL BREATHING PATTERN - Cardiovascular Exam Cardiovascular Exam: REGULAR RHYTHM - GI/Abdominal Exam GI & Abdominal Exam: Normal Bowel Sounds Assessment and Plan - Assessment and Plan (Free Text) Assessment: MSA Parkinsons DX Lilia Drager PT Rytary 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 awaiting transfer to [place] Pt is competent Social service and family involved Pt is [place] Atelectasis Afebrile Gastroentritis? 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
[2016-08-26] MEDS: CARBIDOPA PO SCH ×3 (04:30→21:41)
[2016-08-26] MEDS: LEVODOPA PO SCH ×3 (04:30→21:41)
[2016-08-26] MEDS: Pantoprazole 40 mg EC Tab PO SCH (08:52)
[2016-08-26] MEDS: Hydrocortisone 2.5% (Rectal) CREAM PR SCH (08:52)
[2016-08-26] MEDS: Bethanechol 50 MG TAB PO SCH ×2 (08:52→12:13)
[2016-08-26] MEDS: Magnesium Hydroxide Susp 30 ml UD PO PRN (09:13)
--- NOTE | 2016-08-26 20:46 | CP.PCM.PN ---
Subjective - Date & Time of Evaluation Date of Evaluation: 08/26/16 Time of Evaluation: 22:22 - Subjective Subjective: No change in status Objective - Vital Signs/Intake and Output Vital Signs (last 24 hours): Temp Pulse Resp BP Pulse Ox 98.1 F 83 20 152/76 H 96 08/26/16 20:26 08/26/16 20:26 08/26/16 20:26 08/26/16 20:26 08/26/16 20:26 - Medications Medications: Current Medications Acetaminophen (Tylenol 325mg Tab) 650 mg PO Q6 PRN PRN Reason: Pain, Mild (1-3) Last Admin: 08/21/16 11:15 Dose: 650 mg Benzocaine/Menthol (Cepacol Sore Throat) 1 morro PO Q3 PRN PRN Reason: Sore Throat Last Admin: 08/22/16 17:45 Dose: 1 morro Bethanechol Chloride (Urecholine) 50 mg PO TID COUNTS INCLUDE 234 BEDS AT THE [facility] Last Admin: 08/26/16 12:13 Dose: 50 mg Carbidopa/Levodopa (Rytary Er 48.75 Mg-195 Mg Cap) 1 cap PO TID@0500,1300,2100 COUNTS [facility]CLUDE 234 BEDS AT THE [facility] Last Admin: 08/26/16 12:13 Dose: 1 cap Fluocinonide (Lidex 0.05% Oint) 1 applic TOP BID COUNTS INCLUDE 234 BEDS AT THE [facility] Last Admin: 08/26/16 08:52 Dose: 1 appl Hydrocortisone (Anusol-Hc) 1 applic [place] BID COUNTS INCLUDE 234 BEDS AT THE [facility] Last Admin: 08/26/16 08:52 Dose: 1 unit Magnesium Hydroxide (Milk Of Magnesia) 30 ml PO DAILY PRN PRN Reason: Constipation Last Admin: 08/26/16 09:13 Dose: 30 ml Midodrine (Proamatine) 10 mg PO TID COUNTS INCLUDE 234 BEDS AT THE [facility] Last Admin: 08/26/16 12:13 Dose: 10 mg Pantoprazole Sodium (Protonix Ec Tab) 40 mg PO DAILY COUNTS INCLUDE 234 BEDS AT THE [facility] Last Admin: 08/26/16 08:52 Dose: 40 mg Quetiapine Fumarate (Seroquel) 50 mg PO HS PRN PRN Reason: Agitation Last Admin: 08/19/16 20:22 Dose: 50 mg - Labs Labs: 08/09/16 13:05 08/09/16 13:05 - Respiratory Exam Respiratory Exam: NORMAL BREATHING PATTERN - Cardiovascular Exam Cardiovascular Exam: REGULAR RHYTHM - GI/Abdominal Exam GI & Abdominal Exam: Normal Bowel Sounds Assessment and Plan - Assessment and Plan (Free Text) Assessment: MSA Parkinsons DX Paulyy Drager PT Rytary 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 awaiting transfer to [place] Pt is competent Social service and family involved Pt is [place] Atelectasis Afebrile Gastroentritis? 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
[2016-08-27] MEDS: CARBIDOPA PO SCH ×3 (05:11→21:02)
[2016-08-27] MEDS: LEVODOPA PO SCH ×3 (05:11→21:02)
[2016-08-27] MEDS: Pantoprazole 40 mg EC Tab PO SCH (08:51)
[2016-08-27] MEDS: Bethanechol 50 MG TAB PO SCH ×3 (08:51→17:02)
[2016-08-27] MEDS: Hydrocortisone 2.5% (Rectal) CREAM PR SCH ×2 (10:42→17:05)
[2016-08-27] MEDS: Benzocaine/Menthol (Cepacol) Lozenge PO PRN ×2 (12:40→16:57)
--- NOTE | 2016-08-27 21:39 | CP.PCM.PN ---
Subjective - Date & Time of Evaluation Date of Evaluation: 08/27/16 Time of Evaluation: 22:22 - Subjective Subjective: Above noted Objective - Vital Signs/Intake and Output Vital Signs (last 24 hours): Temp Pulse Resp BP Pulse Ox 97.3 F L 91 H 20 160/84 H 97 08/27/16 16:33 08/27/16 16:33 08/27/16 16:33 08/27/16 16:33 08/27/16 16:33 - Medications Medications: Current Medications Acetaminophen (Tylenol 325mg Tab) 650 mg PO Q6 PRN PRN Reason: Pain, Mild (1-3) Last Admin: 08/21/16 11:15 Dose: 650 mg Benzocaine/Menthol (Cepacol Sore Throat) 1 morro PO Q3 PRN PRN Reason: Sore Throat Last Admin: 08/27/16 16:57 Dose: 1 morro Bethanechol Chloride (Urecholine) 50 mg PO TID [facility] Last Admin: 08/27/16 17:02 Dose: 50 mg Carbidopa/Levodopa (Rytary Er 48.75 Mg-195 Mg Cap) 1 cap PO TID@0500,1300,2100 [facility] Last Admin: 08/27/16 21:02 Dose: 1 cap Fluocinonide (Lidex 0.05% Oint) 1 applic TOP BID [facility] Last Admin: 08/27/16 17:04 Dose: 1 appl Hydrocortisone (Anusol-Hc) 1 applic [place] BID [facility] Last Admin: 08/27/16 17:05 Dose: 1 applic Magnesium Hydroxide (Milk Of Magnesia) 30 ml PO DAILY PRN PRN Reason: Constipation Last Admin: 08/26/16 09:13 Dose: 30 ml Midodrine (Proamatine) 10 mg PO TID [facility] Last Admin: 08/27/16 16:58 Dose: 10 mg Pantoprazole Sodium (Protonix Ec Tab) 40 mg PO DAILY [facility] Last Admin: 08/27/16 08:51 Dose: 40 mg Quetiapine Fumarate (Seroquel) 50 mg PO HS PRN PRN Reason: Agitation Last Admin: 08/19/16 20:22 Dose: 50 mg - Labs Labs: 08/09/16 13:05 08/09/16 13:05 - Respiratory Exam Respiratory Exam: NORMAL BREATHING PATTERN - Cardiovascular Exam Cardiovascular Exam: REGULAR RHYTHM - GI/Abdominal Exam GI & Abdominal Exam: Normal Bowel Sounds Assessment and Plan - Assessment and Plan (Free Text) Assessment: MSA Parkinsons DX Paulyy Drager PT Rytary 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 awaiting transfer to [place] Pt is competent Social service and family involved Pt is [place] Atelectasis Afebrile Gastroentritis? 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
[2016-08-28] MEDS: CARBIDOPA PO SCH ×3 (05:12→20:16)
[2016-08-28] MEDS: LEVODOPA PO SCH ×3 (05:12→20:16)
[2016-08-28] MEDS: Bethanechol 50 MG TAB PO SCH ×3 (09:20→16:02)
[2016-08-28] MEDS: Pantoprazole 40 mg EC Tab PO SCH (09:20)
[2016-08-28] MEDS: Hydrocortisone 2.5% (Rectal) CREAM PR SCH ×2 (09:21→16:02)
--- NOTE | 2016-08-28 19:50 | CP.PCM.PN ---
Subjective - Date & Time of Evaluation Date of Evaluation: 08/28/16 Time of Evaluation: 22:22 - Subjective Subjective: No change Objective - Vital Signs/Intake and Output Vital Signs (last 24 hours): Temp Pulse Resp BP Pulse Ox 97.7 F 74 20 129/71 99 08/28/16 15:51 08/28/16 15:51 08/28/16 15:51 08/28/16 15:51 08/28/16 15:51 - Medications Medications: Current Medications Acetaminophen (Tylenol 325mg Tab) 650 mg PO Q6 PRN PRN Reason: Pain, Mild (1-3) Last Admin: 08/21/16 11:15 Dose: 650 mg Benzocaine/Menthol (Cepacol Sore Throat) 1 morro PO Q3 PRN PRN Reason: Sore Throat Last Admin: 08/27/16 16:57 Dose: 1 morro Bethanechol Chloride (Urecholine) 50 mg PO TID [facility] Last Admin: 08/28/16 16:02 Dose: 50 mg Carbidopa/Levodopa (Rytary Er 48.75 Mg-195 Mg Cap) 1 cap PO TID@0500,1300,2100 [facility] Last Admin: 08/28/16 13:43 Dose: 1 cap Fluocinonide (Lidex 0.05% Oint) 1 applic TOP BID [facility] Last Admin: 08/28/16 16:02 Dose: 1 appl Hydrocortisone (Anusol-Hc) 1 applic [place] BID [facility] Last Admin: 08/28/16 16:02 Dose: 1 applic Magnesium Hydroxide (Milk Of Magnesia) 30 ml PO DAILY PRN PRN Reason: Constipation Last Admin: 08/26/16 09:13 Dose: 30 ml Midodrine (Proamatine) 10 mg PO TID [facility] Last Admin: 08/28/16 16:02 Dose: 10 mg Pantoprazole Sodium (Protonix Ec Tab) 40 mg PO DAILY [facility] Last Admin: 08/28/16 09:20 Dose: 40 mg Quetiapine Fumarate (Seroquel) 50 mg PO HS PRN PRN Reason: Agitation Last Admin: 08/19/16 20:22 Dose: 50 mg - Labs Labs: 08/09/16 13:05 08/09/16 13:05 - Respiratory Exam Respiratory Exam: NORMAL BREATHING PATTERN - Cardiovascular Exam Cardiovascular Exam: REGULAR RHYTHM - GI/Abdominal Exam GI & Abdominal Exam: Normal Bowel Sounds Assessment and Plan - Assessment and Plan (Free Text) Assessment: MSA Parkinsons DX 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 awaiting transfer to [place] Pt is competent Social service and family involved Pt is [place] Atelectasis Afebrile Gastroentritis? 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
[2016-08-29] MEDS: LEVODOPA PO SCH ×3 (05:00→21:31)
[2016-08-29] MEDS: CARBIDOPA PO SCH ×3 (05:00→21:31)
[2016-08-29] MEDS: Bethanechol 50 MG TAB PO SCH ×3 (08:32→16:43)
[2016-08-29] MEDS: Pantoprazole 40 mg EC Tab PO SCH (08:32)
[2016-08-29] MEDS: Hydrocortisone 2.5% (Rectal) CREAM PR SCH ×2 (08:33→16:43)
--- NOTE | 2016-08-29 10:47 | CP.PCM.PN ---
Subjective - Date & Time of Evaluation Date of Evaluation: 08/29/16 Time of Evaluation: 22:22 - Subjective Subjective: No change Objective - Vital Signs/Intake and Output Vital Signs (last 24 hours): Temp Pulse Resp BP Pulse Ox 97.3 F L 58 L 20 126/75 100 08/29/16 08:13 08/29/16 08:13 08/29/16 08:13 08/29/16 08:13 08/29/16 08:13 - Medications Medications: Current Medications Acetaminophen (Tylenol 325mg Tab) 650 mg PO Q6 PRN PRN Reason: Pain, Mild (1-3) Last Admin: 08/21/16 11:15 Dose: 650 mg Benzocaine/Menthol (Cepacol Sore Throat) 1 morro PO Q3 PRN PRN Reason: Sore Throat Last Admin: 08/27/16 16:57 Dose: 1 morro Bethanechol Chloride (Urecholine) 50 mg PO TID [facility] Last Admin: 08/29/16 08:32 Dose: 50 mg Carbidopa/Levodopa (Rytary Er 48.75 Mg-195 Mg Cap) 1 cap PO TID@0500,1300,2100 [facility] Last Admin: 08/29/16 05:00 Dose: 1 cap Fluocinonide (Lidex 0.05% Oint) 1 applic TOP BID [facility] Last Admin: 08/29/16 08:33 Dose: 1 appl Hydrocortisone (Anusol-Hc) 1 applic [place] BID [facility] Last Admin: 08/29/16 08:33 Dose: 1 applic Magnesium Hydroxide (Milk Of Magnesia) 30 ml PO DAILY PRN PRN Reason: Constipation Last Admin: 08/26/16 09:13 Dose: 30 ml Midodrine (Proamatine) 10 mg PO TID [facility] Last Admin: 08/29/16 08:32 Dose: 10 mg Pantoprazole Sodium (Protonix Ec Tab) 40 mg PO DAILY [facility] Last Admin: 08/29/16 08:32 Dose: 40 mg Quetiapine Fumarate (Seroquel) 50 mg PO HS PRN PRN Reason: Agitation Last Admin: 08/28/16 20:16 Dose: 50 mg - Labs Labs: 08/09/16 13:05 08/09/16 13:05 - Respiratory Exam Respiratory Exam: NORMAL BREATHING PATTERN - Cardiovascular Exam Cardiovascular Exam: REGULAR RHYTHM - GI/Abdominal Exam GI & Abdominal Exam: Normal Bowel Sounds Assessment and Plan - Assessment and Plan (Free Text) Assessment: MSA Parkinsons DX 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 awaiting transfer to [place] Pt is competent Social service and family involved Pt is [place] WW[place] Atelectasis Afebrile Gastroentritis? 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
[2016-08-29] MEDS: Benzocaine/Menthol (Cepacol) Lozenge PO PRN ×2 (15:06→21:33)
[2016-08-30] MEDS: CARBIDOPA PO SCH ×3 (05:10→21:21)
[2016-08-30] MEDS: LEVODOPA PO SCH ×3 (05:10→21:21)
[2016-08-30] MEDS: Hydrocortisone 2.5% (Rectal) CREAM PR SCH ×2 (08:39→16:19)
[2016-08-30] MEDS: Pantoprazole 40 mg EC Tab PO SCH (08:40)
[2016-08-30] MEDS: Bethanechol 50 MG TAB PO SCH ×3 (08:40→16:20)
[2016-08-30] MEDS: Benzocaine/Menthol (Cepacol) Lozenge PO PRN (08:41)
--- NOTE | 2016-08-30 14:20 | PN ---
DATE: 08/30/2016 The patient seen and examined. The patient is seen for Dr. Cronejo while he is away. The patient fee ls okay. No specific medical complaint. No specific issue reported by nursing staff. PHYSICAL EXAMINATION: GENERAL: The patient is in no acute distress. VITAL SIGNS: Stable. Temperature 97.5, pulse 67, respiration 20, blood pressure 146/71. HEART: S1, S2 normal, regular. LUNGS: Good bilateral air exchange. ABDOMEN: Soft, nontender. EXTREMITIES: No edema, no calf swelling, no tenderness, no acute ischemia. CENTRAL NERVOUS SYSTEM: Essentially unchanged from patient's usual exam and there is no sign of any acute gross focal, motor or sensory neurological deficit of new origin. DIAGNOSTIC DATA: Available reviewed. Overall, patient's general medical condition is stable. PLAN: As ordered. Rashaun Mendoza MD cc: [id number] TT: 08/30/2016 14:19:48 Confirmation # [id number] Dictation # [id number] en
[2016-08-31] MEDS: LEVODOPA PO SCH ×3 (04:58→20:49)
[2016-08-31] MEDS: CARBIDOPA PO SCH ×3 (04:58→20:49)
[2016-08-31] MEDS: Pantoprazole 40 mg EC Tab PO SCH (08:56)
[2016-08-31] MEDS: Bethanechol 50 MG TAB PO SCH ×3 (08:57→17:55)
[2016-08-31] MEDS: Benzocaine/Menthol (Cepacol) Lozenge PO PRN ×2 (08:57→13:50)
[2016-08-31] MEDS: Hydrocortisone 2.5% (Rectal) CREAM PR SCH ×2 (13:46→17:54)
[2016-09-01] MEDS: LEVODOPA PO SCH ×3 (04:16→21:08)
[2016-09-01] MEDS: CARBIDOPA PO SCH ×3 (04:16→21:08)
[2016-09-01] MEDS: Pantoprazole 40 mg EC Tab PO SCH (08:41)
[2016-09-01] MEDS: Bethanechol 50 MG TAB PO SCH ×3 (08:41→17:16)
[2016-09-01] MEDS: Hydrocortisone 2.5% (Rectal) CREAM PR SCH ×2 (08:44→17:18)
--- NOTE | 2016-09-01 10:29 | PN ---
DATE: 09/01/2016 The patient seen and examined. Interim events noted. The patient remains on regular medical floor. The patient feels okay. No specific medical complaint. No chest pain, no shortness of breath. PHYSICAL EXAMINATION: GENERAL: The patient is in no acute distress. VITAL SIGNS: Stable. HEART: S1, S2 normal, regular. LUNGS: Good bilateral air entry. ABDOMEN: Soft, nontender. EXTREMITIES: No edema, no calf swelling, no tenderness, no acute ischemia. CENTRAL NERVOUS SYSTEM: Essentially unchanged. DIAGNOSTIC DATA: Available reviewed. Overall, patient's general medical condition is stable. PLAN: As ordered. Rashaun Mendoza MD cc: [id number] TT: 09/01/2016 10:28:54 Confirmation # [id number] Dictation # [id number] en
--- NOTE | 2016-09-01 10:31 | PN ---
DATE: 08/31/2016 The patient is seen and examined. Interim events noted. The patient remains on regular medical floo r. The patient feels okay. No specific complaints of chest pain or shortness of breath. PHYSICAL EXAMINATION: GENERAL: The patient is in no acute distress. VITAL SIGNS: Stable. Physical exam is essentially unchanged. DIAGNOSTIC DATA: Available diagnostic data reviewed. Overall, the patient's general medical condition is stable. The patient has a guardian, awaiting sandra cement. PLAN: As ordered. Rashaun Mendoza MD cc: [id number] TT: 09/01/2016 10:31:08 Confirmation # [id number] Dictation # [id number] [email or web address]
[2016-09-02] MEDS: CARBIDOPA PO SCH ×3 (04:29→20:22)
[2016-09-02] MEDS: LEVODOPA PO SCH ×3 (04:29→20:22)
[2016-09-02] MEDS: Bethanechol 50 MG TAB PO SCH ×3 (08:17→16:18)
[2016-09-02] MEDS: Hydrocortisone 2.5% (Rectal) CREAM PR SCH ×2 (08:17→16:19)
[2016-09-02] MEDS: Pantoprazole 40 mg EC Tab PO SCH (08:17)
--- NOTE | 2016-09-02 09:15 | PN ---
DATE: 09/02/2016 The patient seen and examined. Interim events noted. The patient remains on regular medical floor. The patient feels okay. No specific medical complaint. No specific medical issues reported by nurs ing staff. PHYSICAL EXAMINATION: GENERAL: The patient is in no acute distress. VITAL SIGNS: Stable. Physical exam is essentially unchanged. DIAGNOSTIC DATA: Available diagnostic data reviewed. Overall, the patient's general medical condition is stable. PLAN: As ordered. Rashaun Mendoza MD cc: [id number] TT: 09/02/2016 09:14:22 Confirmation # [id number] Dictation # [id number] [email or web address]
[2016-09-02] MEDS: Benzocaine/Menthol (Cepacol) Lozenge PO PRN (09:46)
[2016-09-03] MEDS: CARBIDOPA PO SCH ×3 (05:01→22:35)
[2016-09-03] MEDS: LEVODOPA PO SCH ×3 (05:01→22:35)
[2016-09-03] MEDS: Benzocaine/Menthol (Cepacol) Lozenge PO PRN ×2 (06:09→10:18)
[2016-09-03] MEDS: Pantoprazole 40 mg EC Tab PO SCH (09:05)
[2016-09-03] MEDS: Hydrocortisone 2.5% (Rectal) CREAM PR SCH ×2 (09:05→16:18)
[2016-09-03] MEDS: Bethanechol 50 MG TAB PO SCH ×3 (09:06→16:18)
--- NOTE | 2016-09-03 20:19 | CP.PCM.PN ---
Subjective - Date & Time of Evaluation Date of Evaluation: 09/03/16 Time of Evaluation: 22:22 - Subjective Subjective: Above noted Objective - Vital Signs/Intake and Output Vital Signs (last 24 hours): Temp Pulse Resp BP Pulse Ox 98 F 71 20 147/77 99 09/03/16 16:43 09/03/16 16:43 09/03/16 16:43 09/03/16 16:43 09/03/16 16:43 - Medications Medications: Current Medications Acetaminophen (Tylenol 325mg Tab) 650 mg PO Q6 PRN PRN Reason: Pain, Mild (1-3) Last Admin: 08/30/16 17:23 Dose: 650 mg Benzocaine/Menthol (Cepacol Sore Throat) 1 morro PO Q3 PRN PRN Reason: Sore Throat Last Admin: 09/03/16 10:18 Dose: 1 morro Bethanechol Chloride (Urecholine) 50 mg PO TID [facility] Last Admin: 09/03/16 16:18 Dose: 50 mg Carbidopa/Levodopa (Rytary Er 48.75 Mg-195 Mg Cap) 1 cap PO TID@0500,1300,2100 [facility] Last Admin: 09/03/16 12:08 Dose: 1 cap Fluocinonide (Lidex 0.05% Oint) 1 applic TOP BID [facility] Last Admin: 09/03/16 16:18 Dose: 1 appl Hydrocortisone (Anusol-Hc) 1 applic [place] BID [facility] Last Admin: 09/03/16 16:18 Dose: 1 applic Magnesium Hydroxide (Milk Of Magnesia) 30 ml PO DAILY PRN PRN Reason: Constipation Last Admin: 08/26/16 09:13 Dose: 30 ml Midodrine (Proamatine) 10 mg PO TID [facility] Last Admin: 09/03/16 16:18 Dose: 10 mg Pantoprazole Sodium (Protonix Ec Tab) 40 mg PO DAILY [facility] Last Admin: 09/03/16 09:05 Dose: 40 mg Quetiapine Fumarate (Seroquel) 50 mg PO HS PRN PRN Reason: Agitation Last Admin: 08/30/16 21:21 Dose: 50 mg - Labs Labs: 08/09/16 13:05 08/09/16 13:05 - Respiratory Exam Respiratory Exam: NORMAL BREATHING PATTERN - Cardiovascular Exam Cardiovascular Exam: REGULAR RHYTHM - GI/Abdominal Exam GI & Abdominal Exam: Normal Bowel Sounds Assessment and Plan - Assessment and Plan (Free Text) Assessment: MSA Parkinsons DX Lilia Vieira PT Rytary 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 awaiting transfer to [place] Pt is competent Social service and family involved Pt is [place] WW[place] Atelectasis Afebrile Gastroentritis? 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
[2016-09-04] MEDS: LEVODOPA PO SCH ×3 (05:31→21:35)
[2016-09-04] MEDS: CARBIDOPA PO SCH ×3 (05:31→21:35)
[2016-09-04] MEDS: Benzocaine/Menthol (Cepacol) Lozenge PO PRN (05:31)
[2016-09-04] MEDS: Pantoprazole 40 mg EC Tab PO SCH (08:55)
[2016-09-04] MEDS: Hydrocortisone 2.5% (Rectal) CREAM PR SCH ×2 (08:55→18:31)
[2016-09-04] MEDS: Bethanechol 50 MG TAB PO SCH ×3 (08:55→18:33)
--- NOTE | 2016-09-04 18:54 | CP.PCM.PN ---
Subjective - Date & Time of Evaluation Date of Evaluation: 09/04/16 Time of Evaluation: 22:22 - Subjective Subjective: No change Objective - Vital Signs/Intake and Output Vital Signs (last 24 hours): Temp Pulse Resp BP Pulse Ox 97.4 F L 85 20 149/68 99 09/04/16 16:10 09/04/16 16:10 09/04/16 16:10 09/04/16 16:10 09/04/16 16:10 - Medications Medications: Current Medications Acetaminophen (Tylenol 325mg Tab) 650 mg PO Q6 PRN PRN Reason: Pain, Mild (1-3) Last Admin: 08/30/16 17:23 Dose: 650 mg Benzocaine/Menthol (Cepacol Sore Throat) 1 morro PO Q3 PRN PRN Reason: Sore Throat Last Admin: 09/04/16 05:31 Dose: 1 morro Bethanechol Chloride (Urecholine) 50 mg PO TID [facility] Last Admin: 09/04/16 18:33 Dose: 50 mg Carbidopa/Levodopa (Rytary Er 48.75 Mg-195 Mg Cap) 1 cap PO TID@0500,1300,2100 [facility] Last Admin: 09/04/16 12:04 Dose: 1 cap Fluocinonide (Lidex 0.05% Oint) 1 applic TOP BID [facility] Last Admin: 09/04/16 18:31 Dose: 1 appl Hydrocortisone (Anusol-Hc) 1 applic [place] BID [facility] Last Admin: 09/04/16 18:31 Dose: 1 applic Magnesium Hydroxide (Milk Of Magnesia) 30 ml PO DAILY PRN PRN Reason: Constipation Last Admin: 08/26/16 09:13 Dose: 30 ml Midodrine (Proamatine) 10 mg PO TID [facility] Last Admin: 09/04/16 18:33 Dose: 10 mg Pantoprazole Sodium (Protonix Ec Tab) 40 mg PO DAILY [facility] Last Admin: 09/04/16 08:55 Dose: 40 mg Quetiapine Fumarate (Seroquel) 50 mg PO HS PRN PRN Reason: Agitation Last Admin: 08/30/16 21:21 Dose: 50 mg - Labs Labs: 08/09/16 13:05 08/09/16 13:05 - Respiratory Exam Respiratory Exam: NORMAL BREATHING PATTERN - Cardiovascular Exam Cardiovascular Exam: REGULAR RHYTHM - GI/Abdominal Exam GI & Abdominal Exam: Normal Bowel Sounds Assessment and Plan - Assessment and Plan (Free Text) Assessment: R shoulder pain Dec ROM xrays subluxation Ultram PRN PT MSA Parkinsons DX 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 awaiting transfer to [place] Pt is competent Social service and family involved Pt is [place] WW[place] Atelectasis Afebrile Gastroentritis? 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
[2016-09-05] MEDS: LEVODOPA PO SCH ×3 (05:15→21:10)
[2016-09-05] MEDS: CARBIDOPA PO SCH ×3 (05:15→21:10)
[2016-09-05] MEDS: Pantoprazole 40 mg EC Tab PO SCH (10:08)
[2016-09-05] MEDS: Bethanechol 50 MG TAB PO SCH ×3 (10:08→17:45)
[2016-09-05] MEDS: Hydrocortisone 2.5% (Rectal) CREAM PR SCH ×2 (10:08→17:44)
--- NOTE | 2016-09-05 20:49 | CP.PCM.PN ---
Subjective - Date & Time of Evaluation Date of Evaluation: 09/05/16 Time of Evaluation: 22:22 - Subjective Subjective: Above noted Objective - Vital Signs/Intake and Output Vital Signs (last 24 hours): Temp Pulse Resp BP Pulse Ox 98.3 F 85 20 159/64 H 95 09/05/16 20:19 09/05/16 20:19 09/05/16 20:19 09/05/16 20:19 09/05/16 20:19 - Medications Medications: Current Medications Acetaminophen (Tylenol 325mg Tab) 650 mg PO Q6 PRN PRN Reason: Pain, Mild (1-3) Last Admin: 08/30/16 17:23 Dose: 650 mg Benzocaine/Menthol (Cepacol Sore Throat) 1 morro PO Q3 PRN PRN Reason: Sore Throat Last Admin: 09/04/16 05:31 Dose: 1 morro Bethanechol Chloride (Urecholine) 50 mg PO TID [facility] Last Admin: 09/05/16 17:45 Dose: 50 mg Carbidopa/Levodopa (Rytary Er 48.75 Mg-195 Mg Cap) 1 cap PO TID@0500,1300,2100 [facility] Last Admin: 09/05/16 12:09 Dose: 1 cap Fluocinonide (Lidex 0.05% Oint) 1 applic TOP BID [facility] Last Admin: 09/05/16 17:44 Dose: 1 appl Hydrocortisone (Anusol-Hc) 1 applic [place] BID [facility] Last Admin: 09/05/16 17:44 Dose: 1 applic Magnesium Hydroxide (Milk Of Magnesia) 30 ml PO DAILY PRN PRN Reason: Constipation Last Admin: 08/26/16 09:13 Dose: 30 ml Midodrine (Proamatine) 10 mg PO TID [facility] Last Admin: 09/05/16 17:45 Dose: 10 mg Pantoprazole Sodium (Protonix Ec Tab) 40 mg PO DAILY [facility] Last Admin: 09/05/16 10:08 Dose: 40 mg Quetiapine Fumarate (Seroquel) 50 mg PO HS PRN PRN Reason: Agitation Last Admin: 08/30/16 21:21 Dose: 50 mg - Labs Labs: 08/09/16 13:05 08/09/16 13:05 - Respiratory Exam Respiratory Exam: Wheezes, NORMAL BREATHING PATTERN - Cardiovascular Exam Cardiovascular Exam: REGULAR RHYTHM - GI/Abdominal Exam GI & Abdominal Exam: Normal Bowel Sounds Assessment and Plan - Assessment and Plan (Free Text) Assessment: R shoulder pain Dec ROM xrays subluxation Ultram PRN PT MSA Parkinsons DX 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 awaiting transfer to [place] Pt is competent Social service and family involved Pt is [place] Atelectasis Afebrile Gastroentritis? 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
[2016-09-06] MEDS: LEVODOPA PO SCH ×3 (05:37→20:19)
[2016-09-06] MEDS: CARBIDOPA PO SCH ×3 (05:37→20:19)
[2016-09-06] MEDS: Bethanechol 50 MG TAB PO SCH ×3 (09:30→17:36)
[2016-09-06] MEDS: Benzocaine/Menthol (Cepacol) Lozenge PO PRN ×2 (09:30→20:25)
[2016-09-06] MEDS: Hydrocortisone 2.5% (Rectal) CREAM PR SCH ×2 (09:30→17:36)
[2016-09-06] MEDS: Pantoprazole 40 mg EC Tab PO SCH (09:31)
--- NOTE | 2016-09-06 18:36 | CP.PCM.PN ---
Subjective - Date & Time of Evaluation Date of Evaluation: 09/06/16 Time of Evaluation: 22:22 - Subjective Subjective: Above noted Objective - Vital Signs/Intake and Output Vital Signs (last 24 hours): Temp Pulse Resp BP Pulse Ox 98.1 F 59 L 20 142/78 98 09/06/16 16:08 09/06/16 16:08 09/06/16 16:08 09/06/16 16:08 09/06/16 16:08 - Medications Medications: Current Medications Acetaminophen (Tylenol 325mg Tab) 650 mg PO Q6 PRN PRN Reason: Pain, Mild (1-3) Last Admin: 08/30/16 17:23 Dose: 650 mg Benzocaine/Menthol (Cepacol Sore Throat) 1 morro PO Q3 PRN PRN Reason: Sore Throat Last Admin: 09/06/16 09:30 Dose: 1 morro Bethanechol Chloride (Urecholine) 50 mg PO TID [facility] Last Admin: 09/06/16 17:36 Dose: 50 mg Carbidopa/Levodopa (Rytary Er 48.75 Mg-195 Mg Cap) 1 cap PO TID@0500,1300,2100 [facility] Last Admin: 09/06/16 12:46 Dose: 1 cap Fluocinonide (Lidex 0.05% Oint) 1 applic TOP BID [facility] Last Admin: 09/06/16 17:36 Dose: 1 appl Hydrocortisone (Anusol-Hc) 1 applic [place] BID [facility] Last Admin: 09/06/16 17:36 Dose: 1 applic Magnesium Hydroxide (Milk Of Magnesia) 30 ml PO DAILY PRN PRN Reason: Constipation Last Admin: 08/26/16 09:13 Dose: 30 ml Midodrine (Proamatine) 10 mg PO TID [facility] Last Admin: 09/06/16 17:35 Dose: 10 mg Pantoprazole Sodium (Protonix Ec Tab) 40 mg PO DAILY [facility] Last Admin: 09/06/16 09:31 Dose: 40 mg Quetiapine Fumarate (Seroquel) 50 mg PO HS PRN PRN Reason: Agitation Last Admin: 08/30/16 21:21 Dose: 50 mg - Labs Labs: 08/09/16 13:05 08/09/16 13:05 - Respiratory Exam Respiratory Exam: NORMAL BREATHING PATTERN - Cardiovascular Exam Cardiovascular Exam: REGULAR RHYTHM - GI/Abdominal Exam GI & Abdominal Exam: Normal Bowel Sounds Assessment and Plan - Assessment and Plan (Free Text) Assessment: MSA Parkinsons DX 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 awaiting transfer to [place] Pt is competent Social service and family involved Pt is [place] WWII R shoulder pain Dec ROM xrays subluxation Ultram PRN PT Atelectasis Afebrile Gastroentritis? 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
[2016-09-07] MEDS: LEVODOPA PO SCH ×3 (05:51→21:40)
[2016-09-07] MEDS: CARBIDOPA PO SCH ×3 (05:51→21:40)
[2016-09-07] MEDS: Bethanechol 50 MG TAB PO SCH ×3 (09:31→17:43)
[2016-09-07] MEDS: Pantoprazole 40 mg EC Tab PO SCH (09:32)
[2016-09-07] MEDS: Hydrocortisone 2.5% (Rectal) CREAM PR SCH ×2 (09:33→17:44)
[2016-09-08] MEDS: LEVODOPA PO SCH ×3 (05:36→21:47)
[2016-09-08] MEDS: CARBIDOPA PO SCH ×3 (05:36→21:47)
[2016-09-08] MEDS: Benzocaine/Menthol (Cepacol) Lozenge PO PRN ×2 (09:22→18:20)
[2016-09-08] MEDS: Hydrocortisone 2.5% (Rectal) CREAM PR SCH ×2 (09:23→16:09)
[2016-09-08] MEDS: Pantoprazole 40 mg EC Tab PO SCH (09:23)
[2016-09-08] MEDS: Bethanechol 50 MG TAB PO SCH ×3 (09:24→16:10)
--- NOTE | 2016-09-08 14:52 | CP.PCM.PN ---
Subjective - Date & Time of Evaluation Date of Evaluation: 09/08/16 Time of Evaluation: 22:22 - Subjective Subjective: sitting in bed Objective - Vital Signs/Intake and Output Vital Signs (last 24 hours): Temp Pulse Resp BP Pulse Ox 97.2 F L 64 20 98/60 L 97 09/08/16 08:19 09/08/16 08:19 09/08/16 08:19 09/08/16 08:19 09/08/16 08:19 - Medications Medications: Current Medications Acetaminophen (Tylenol 325mg Tab) 650 mg PO Q6 PRN PRN Reason: Pain, Mild (1-3) Last Admin: 08/30/16 17:23 Dose: 650 mg Benzocaine/Menthol (Cepacol Sore Throat) 1 morro PO Q3 PRN PRN Reason: Sore Throat Last Admin: 09/08/16 09:22 Dose: 1 morro Bethanechol Chloride (Urecholine) 50 mg PO TID [facility] Last Admin: 09/08/16 12:31 Dose: 50 mg Carbidopa/Levodopa (Rytary Er 48.75 Mg-195 Mg Cap) 1 cap PO TID@0500,1300,2100 [facility] Last Admin: 09/08/16 12:31 Dose: 1 cap Fluocinonide (Lidex 0.05% Oint) 1 applic TOP BID [facility] Last Admin: 09/08/16 09:22 Dose: 1 appl Hydrocortisone (Anusol-Hc) 1 applic [place] BID [facility] Last Admin: 09/08/16 09:23 Dose: 1 applic Magnesium Hydroxide (Milk Of Magnesia) 30 ml PO DAILY PRN PRN Reason: Constipation Last Admin: 08/26/16 09:13 Dose: 30 ml Midodrine (Proamatine) 10 mg PO TID [facility] Last Admin: 09/08/16 12:31 Dose: 10 mg Pantoprazole Sodium (Protonix Ec Tab) 40 mg PO DAILY [facility] Last Admin: 09/08/16 09:23 Dose: 40 mg Quetiapine Fumarate (Seroquel) 50 mg PO HS PRN PRN Reason: Agitation Last Admin: 08/30/16 21:21 Dose: 50 mg - Labs Labs: 08/09/16 13:05 08/09/16 13:05 - Respiratory Exam Respiratory Exam: NORMAL BREATHING PATTERN - Cardiovascular Exam Cardiovascular Exam: REGULAR RHYTHM - GI/Abdominal Exam GI & Abdominal Exam: Normal Bowel Sounds Assessment and Plan - Assessment and Plan (Free Text) Assessment: MSA Parkinsons DX Lilia Wrayer PT Rytary 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 awaiting transfer to [place] Pt is competent Social service and family involved Pt is [place] R shoulder pain Dec ROM xrays subluxation Ultram PRN PT Atelectasis Afebrile Gastroentritis? 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
[2016-09-09] MEDS: CARBIDOPA PO SCH ×3 (05:28→21:36)
[2016-09-09] MEDS: LEVODOPA PO SCH ×3 (05:28→21:36)
[2016-09-09] MEDS: Hydrocortisone 2.5% (Rectal) CREAM PR SCH ×2 (08:56→16:16)
[2016-09-09] MEDS: Benzocaine/Menthol (Cepacol) Lozenge PO PRN ×2 (08:56→16:55)
[2016-09-09] MEDS: Bethanechol 50 MG TAB PO SCH ×3 (08:57→16:15)
[2016-09-09] MEDS: Pantoprazole 40 mg EC Tab PO SCH (08:58)
--- NOTE | 2016-09-09 20:11 | CP.PCM.PN ---
Subjective - Date & Time of Evaluation Date of Evaluation: 09/09/16 Time of Evaluation: 22:22 - Subjective Subjective: above noted Objective - Vital Signs/Intake and Output Vital Signs (last 24 hours): Temp Pulse Resp BP Pulse Ox 98.8 F 63 20 106/56 L 98 09/09/16 20:02 09/09/16 20:02 09/09/16 20:02 09/09/16 20:02 09/09/16 20:02 - Medications Medications: Current Medications Acetaminophen (Tylenol 325mg Tab) 650 mg PO Q6 PRN PRN Reason: Pain, Mild (1-3) Last Admin: 08/30/16 17:23 Dose: 650 mg Benzocaine/Menthol (Cepacol Sore Throat) 1 morro PO Q3 PRN PRN Reason: Sore Throat Last Admin: 09/09/16 16:55 Dose: 1 morro Bethanechol Chloride (Urecholine) 50 mg PO TID [facility] Last Admin: 09/09/16 16:15 Dose: 50 mg Carbidopa/Levodopa (Rytary Er 48.75 Mg-195 Mg Cap) 1 cap PO TID@0500,1300,2100 [facility] Last Admin: 09/09/16 12:54 Dose: 1 cap Fluocinonide (Lidex 0.05% Oint) 1 applic TOP BID [facility] Last Admin: 09/09/16 16:16 Dose: 1 appl Hydrocortisone (Anusol-Hc) 1 applic [place] BID [facility] Last Admin: 09/09/16 16:16 Dose: 1 applic Magnesium Hydroxide (Milk Of Magnesia) 30 ml PO DAILY PRN PRN Reason: Constipation Last Admin: 08/26/16 09:13 Dose: 30 ml Midodrine (Proamatine) 10 mg PO TID [facility] Last Admin: 09/09/16 16:15 Dose: 10 mg Pantoprazole Sodium (Protonix Ec Tab) 40 mg PO DAILY [facility] Last Admin: 09/09/16 08:58 Dose: 40 mg Quetiapine Fumarate (Seroquel) 50 mg PO HS PRN PRN Reason: Agitation Last Admin: 08/30/16 21:21 Dose: 50 mg - Labs Labs: 08/09/16 13:05 08/09/16 13:05 - Respiratory Exam Respiratory Exam: NORMAL BREATHING PATTERN - Cardiovascular Exam Cardiovascular Exam: REGULAR RHYTHM - GI/Abdominal Exam GI & Abdominal Exam: Normal Bowel Sounds Assessment and Plan - Assessment and Plan (Free Text) Assessment: MSA Parkinsons DX 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 awaiting transfer to [place] Pt is competent Social service and family involved Pt is [place] WW[place] R shoulder pain Dec ROM xrays subluxation Ultram PRN PT Atelectasis Afebrile Gastroentritis? 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
[2016-09-10] MEDS: CARBIDOPA PO SCH ×3 (04:22→21:06)
[2016-09-10] MEDS: LEVODOPA PO SCH ×3 (04:22→21:06)
[2016-09-10] MEDS: Hydrocortisone 2.5% (Rectal) CREAM PR SCH ×2 (08:52→16:56)
[2016-09-10] MEDS: Bethanechol 50 MG TAB PO SCH ×3 (08:54→16:57)
[2016-09-10] MEDS: Pantoprazole 40 mg EC Tab PO SCH (08:54)
[2016-09-10] MEDS: Benzocaine/Menthol (Cepacol) Lozenge PO PRN ×2 (12:43→21:14)
--- NOTE | 2016-09-10 20:56 | CP.PCM.PN ---
Subjective - Date & Time of Evaluation Date of Evaluation: 09/10/16 Time of Evaluation: 22:22 - Subjective Subjective: Above noted Objective - Vital Signs/Intake and Output Vital Signs (last 24 hours): Temp Pulse Resp BP Pulse Ox 97.5 F L 76 20 129/62 95 09/10/16 20:05 09/10/16 20:05 09/10/16 20:05 09/10/16 20:05 09/10/16 20:05 - Medications Medications: Current Medications Acetaminophen (Tylenol 325mg Tab) 650 mg PO Q6 PRN PRN Reason: Pain, Mild (1-3) Last Admin: 08/30/16 17:23 Dose: 650 mg Benzocaine/Menthol (Cepacol Sore Throat) 1 morro PO Q3 PRN PRN Reason: Sore Throat Last Admin: 09/10/16 12:43 Dose: 1 morro Bethanechol Chloride (Urecholine) 50 mg PO TID [facility] Last Admin: 09/10/16 16:57 Dose: 50 mg Carbidopa/Levodopa (Rytary Er 48.75 Mg-195 Mg Cap) 1 cap PO TID@0500,1300,2100 [facility] Last Admin: 09/10/16 12:44 Dose: 1 cap Fluocinonide (Lidex 0.05% Oint) 1 applic TOP BID [facility] Last Admin: 09/10/16 16:56 Dose: 1 appl Hydrocortisone (Anusol-Hc) 1 applic [place] BID [facility] Last Admin: 09/10/16 16:56 Dose: 1 applic Magnesium Hydroxide (Milk Of Magnesia) 30 ml PO DAILY PRN PRN Reason: Constipation Last Admin: 08/26/16 09:13 Dose: 30 ml Midodrine (Proamatine) 10 mg PO TID [facility] Last Admin: 09/10/16 16:57 Dose: 10 mg Pantoprazole Sodium (Protonix Ec Tab) 40 mg PO DAILY [facility] Last Admin: 09/10/16 08:54 Dose: 40 mg Quetiapine Fumarate (Seroquel) 50 mg PO HS PRN PRN Reason: Agitation Last Admin: 08/30/16 21:21 Dose: 50 mg - Labs Labs: 08/09/16 13:05 08/09/16 13:05 - Respiratory Exam Respiratory Exam: NORMAL BREATHING PATTERN - Cardiovascular Exam Cardiovascular Exam: REGULAR RHYTHM - GI/Abdominal Exam GI & Abdominal Exam: Normal Bowel Sounds Assessment and Plan - Assessment and Plan (Free Text) Assessment: MSA Parkinsons DX 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 awaiting transfer to [place] Pt is competent Social service and family involved Pt is [place] WWII R shoulder pain Dec ROM xrays subluxation Ultram PRN PT Atelectasis Afebrile Gastroentritis? 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
[2016-09-11] MEDS: CARBIDOPA PO SCH ×3 (05:37→20:50)
[2016-09-11] MEDS: LEVODOPA PO SCH ×3 (05:37→20:50)
[2016-09-11] MEDS: Benzocaine/Menthol (Cepacol) Lozenge PO PRN ×3 (06:43→20:49)
[2016-09-11] MEDS: Hydrocortisone 2.5% (Rectal) CREAM PR SCH ×2 (10:01→16:31)
[2016-09-11] MEDS: Pantoprazole 40 mg EC Tab PO SCH (10:02)
[2016-09-11] MEDS: Bethanechol 50 MG TAB PO SCH ×3 (10:03→16:32)
--- NOTE | 2016-09-11 19:50 | CP.PCM.PN ---
Subjective - Date & Time of Evaluation Date of Evaluation: 09/11/16 Time of Evaluation: 22:22 - Subjective Subjective: Above noted Objective - Vital Signs/Intake and Output Vital Signs (last 24 hours): Temp Pulse Resp BP Pulse Ox 97.4 F L 59 L 20 157/83 H 97 09/11/16 17:00 09/11/16 17:00 09/11/16 17:00 09/11/16 17:00 09/11/16 17:00 - Medications Medications: Current Medications Acetaminophen (Tylenol 325mg Tab) 650 mg PO Q6 PRN PRN Reason: Pain, Mild (1-3) Last Admin: 08/30/16 17:23 Dose: 650 mg Benzocaine/Menthol (Cepacol Sore Throat) 1 morro PO Q3 PRN PRN Reason: Sore Throat Last Admin: 09/11/16 15:27 Dose: 1 morro Bethanechol Chloride (Urecholine) 50 mg PO TID [facility] Last Admin: 09/11/16 16:32 Dose: 50 mg Carbidopa/Levodopa (Rytary Er 48.75 Mg-195 Mg Cap) 1 cap PO TID@0500,1300,2100 [facility] Last Admin: 09/11/16 13:02 Dose: 1 cap Fluocinonide (Lidex 0.05% Oint) 1 applic TOP BID [facility] Last Admin: 09/11/16 16:31 Dose: 1 appl Hydrocortisone (Anusol-Hc) 1 applic [place] BID [facility] Last Admin: 09/11/16 16:31 Dose: 1 applic Magnesium Hydroxide (Milk Of Magnesia) 30 ml PO DAILY PRN PRN Reason: Constipation Last Admin: 08/26/16 09:13 Dose: 30 ml Midodrine (Proamatine) 10 mg PO TID [facility] Last Admin: 09/11/16 16:32 Dose: 10 mg Pantoprazole Sodium (Protonix Ec Tab) 40 mg PO DAILY [facility] Last Admin: 09/11/16 10:02 Dose: 40 mg Quetiapine Fumarate (Seroquel) 50 mg PO HS PRN PRN Reason: Agitation Last Admin: 08/30/16 21:21 Dose: 50 mg - Labs Labs: 08/09/16 13:05 08/09/16 13:05 - Respiratory Exam Respiratory Exam: NORMAL BREATHING PATTERN - Cardiovascular Exam Cardiovascular Exam: REGULAR RHYTHM - GI/Abdominal Exam GI & Abdominal Exam: Normal Bowel Sounds Assessment and Plan - Assessment and Plan (Free Text) Assessment: MSA Parkinsons DX Lilia Wrayer PT Rytary 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 awaiting transfer to [place] Pt is competent Social service and family involved Pt is [place] R shoulder pain Dec ROM xrays subluxation Ultram PRN PT Atelectasis Afebrile Gastroentritis? 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
[2016-09-11] MEDS: Magnesium Hydroxide Susp 30 ml UD PO PRN (20:49)
[2016-09-12] MEDS: LEVODOPA PO SCH ×3 (05:47→20:26)
[2016-09-12] MEDS: CARBIDOPA PO SCH ×3 (05:47→20:26)
[2016-09-12] MEDS: Pantoprazole 40 mg EC Tab PO SCH (08:04)
[2016-09-12] MEDS: Hydrocortisone 2.5% (Rectal) CREAM PR SCH ×2 (08:04→16:33)
[2016-09-12] MEDS: Bethanechol 50 MG TAB PO SCH ×3 (08:04→16:34)
--- NOTE | 2016-09-12 21:00 | CP.PCM.PN ---
Subjective - Date & Time of Evaluation Date of Evaluation: 09/12/16 Time of Evaluation: 22:22 - Subjective Subjective: Above noted Objective - Vital Signs/Intake and Output Vital Signs (last 24 hours): Temp Pulse Resp BP Pulse Ox 99.7 F H 58 L 20 123/64 97 09/12/16 20:12 09/12/16 20:12 09/12/16 20:12 09/12/16 20:12 09/12/16 20:12 - Medications Medications: Current Medications Acetaminophen (Tylenol 325mg Tab) 650 mg PO Q6 PRN PRN Reason: Pain, Mild (1-3) Last Admin: 08/30/16 17:23 Dose: 650 mg Benzocaine/Menthol (Cepacol Sore Throat) 1 morro PO Q3 PRN PRN Reason: Sore Throat Last Admin: 09/11/16 20:49 Dose: 1 morro Bethanechol Chloride (Urecholine) 50 mg PO TID [facility] Last Admin: 09/12/16 16:34 Dose: 50 mg Carbidopa/Levodopa (Rytary Er 48.75 Mg-195 Mg Cap) 1 cap PO TID@0500,1300,2100 [facility] Last Admin: 09/12/16 20:26 Dose: 1 cap Fluocinonide (Lidex 0.05% Oint) 1 applic TOP BID [facility] Last Admin: 09/12/16 16:33 Dose: 1 appl Hydrocortisone (Anusol-Hc) 1 applic [place] BID [facility] Last Admin: 09/12/16 16:33 Dose: 1 applic Magnesium Hydroxide (Milk Of Magnesia) 30 ml PO DAILY PRN PRN Reason: Constipation Last Admin: 09/11/16 20:49 Dose: 30 ml Midodrine (Proamatine) 10 mg PO TID [facility] Last Admin: 09/12/16 16:33 Dose: 10 mg Pantoprazole Sodium (Protonix Ec Tab) 40 mg PO DAILY [facility] Last Admin: 09/12/16 08:04 Dose: 40 mg Quetiapine Fumarate (Seroquel) 50 mg PO HS PRN PRN Reason: Agitation Last Admin: 08/30/16 21:21 Dose: 50 mg - Labs Labs: 08/09/16 13:05 08/09/16 13:05 - Respiratory Exam Respiratory Exam: NORMAL BREATHING PATTERN - Cardiovascular Exam Cardiovascular Exam: REGULAR RHYTHM - GI/Abdominal Exam GI & Abdominal Exam: Normal Bowel Sounds Assessment and Plan - Assessment and Plan (Free Text) Assessment: Assessment: MSA Parkinsons DX Lilia Wrayer PT Rytary 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 awaiting transfer to [place] Pt is competent Social service and family involved Pt is [place] WWII R shoulder pain Dec ROM xrays subluxation Ultram PRN PT Atelectasis Afebrile Gastroentritis? 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
[2016-09-13] MEDS: LEVODOPA PO SCH ×3 (05:08→21:34)
[2016-09-13] MEDS: CARBIDOPA PO SCH ×3 (05:08→21:34)
[2016-09-13] MEDS: Hydrocortisone 2.5% (Rectal) CREAM PR SCH ×2 (08:14→16:02)
[2016-09-13] MEDS: Bethanechol 50 MG TAB PO SCH ×3 (08:14→16:02)
[2016-09-13] MEDS: Pantoprazole 40 mg EC Tab PO SCH (08:15)
--- NOTE | 2016-09-13 16:01 | CP.PCM.PN ---
Subjective - Date & Time of Evaluation Date of Evaluation: 09/13/16 Time of Evaluation: 22:22 - Subjective Subjective: Above noted Objective - Vital Signs/Intake and Output Vital Signs (last 24 hours): Temp Pulse Resp BP Pulse Ox 98.1 F 63 20 127/71 97 09/13/16 08:33 09/13/16 08:33 09/13/16 08:33 09/13/16 08:33 09/13/16 08:33 - Medications Medications: Current Medications Acetaminophen (Tylenol 325mg Tab) 650 mg PO Q6 PRN PRN Reason: Pain, Mild (1-3) Last Admin: 08/30/16 17:23 Dose: 650 mg Benzocaine/Menthol (Cepacol Sore Throat) 1 morro PO Q3 PRN PRN Reason: Sore Throat Last Admin: 09/11/16 20:49 Dose: 1 morro Bethanechol Chloride (Urecholine) 50 mg PO TID [facility] Last Admin: 09/13/16 12:00 Dose: 50 mg Carbidopa/Levodopa (Rytary Er 48.75 Mg-195 Mg Cap) 1 cap PO TID@0500,1300,2100 [facility] Last Admin: 09/13/16 12:00 Dose: 1 cap Fluocinonide (Lidex 0.05% Oint) 1 applic TOP BID [facility] Last Admin: 09/13/16 08:14 Dose: 1 appl Hydrocortisone (Anusol-Hc) 1 applic [place] BID [facility] Last Admin: 09/13/16 08:14 Dose: 1 applic Magnesium Hydroxide (Milk Of Magnesia) 30 ml PO DAILY PRN PRN Reason: Constipation Last Admin: 09/11/16 20:49 Dose: 30 ml Midodrine (Proamatine) 10 mg PO TID [facility] Last Admin: 09/13/16 12:00 Dose: 10 mg Pantoprazole Sodium (Protonix Ec Tab) 40 mg PO DAILY [facility] Last Admin: 09/13/16 08:15 Dose: 40 mg Quetiapine Fumarate (Seroquel) 50 mg PO HS PRN PRN Reason: Agitation Last Admin: 08/30/16 21:21 Dose: 50 mg - Labs Labs: 08/09/16 13:05 08/09/16 13:05 - Respiratory Exam Respiratory Exam: NORMAL BREATHING PATTERN - Cardiovascular Exam Cardiovascular Exam: REGULAR RHYTHM - GI/Abdominal Exam GI & Abdominal Exam: Normal Bowel Sounds Assessment and Plan - Assessment and Plan (Free Text) Assessment: MSA Parkinsons DX 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 awaiting transfer to [place] Pt is competent Social service and family involved Pt is [place] WWII R shoulder pain Dec ROM xrays subluxation Ultram PRN PT Atelectasis Afebrile Gastroentritis? 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
[2016-09-14] MEDS: LEVODOPA PO SCH ×3 (04:28→21:10)
[2016-09-14] MEDS: CARBIDOPA PO SCH ×3 (04:28→21:10)
[2016-09-14] MEDS: Hydrocortisone 2.5% (Rectal) CREAM PR SCH ×2 (08:28→17:42)
[2016-09-14] MEDS: Bethanechol 50 MG TAB PO SCH ×3 (08:28→17:41)
[2016-09-14] MEDS: Pantoprazole 40 mg EC Tab PO SCH (08:29)
[2016-09-14] MEDS: Benzocaine/Menthol (Cepacol) Lozenge PO PRN (08:47)
[2016-09-15] MEDS: LEVODOPA PO SCH ×3 (04:25→21:41)
[2016-09-15] MEDS: CARBIDOPA PO SCH ×3 (04:25→21:41)
[2016-09-15] MEDS: Hydrocortisone 2.5% (Rectal) CREAM PR SCH ×2 (08:59→16:10)
[2016-09-15] MEDS: Pantoprazole 40 mg EC Tab PO SCH (09:02)
[2016-09-15] MEDS: Bethanechol 50 MG TAB PO SCH ×3 (09:02→16:10)
[2016-09-15] MEDS: Benzocaine/Menthol (Cepacol) Lozenge PO PRN ×2 (09:05→15:47)
--- NOTE | 2016-09-15 14:37 | CP.PCM.PN ---
Subjective - Date & Time of Evaluation Date of Evaluation: 09/15/16 Time of Evaluation: 22:22 - Subjective Subjective: above noted Objective - Vital Signs/Intake and Output Vital Signs (last 24 hours): Temp Pulse Resp BP Pulse Ox 97.6 F 76 20 112/69 99 09/15/16 08:27 09/15/16 08:27 09/15/16 08:27 09/15/16 08:27 09/15/16 08:27 - Medications Medications: Current Medications Acetaminophen (Tylenol 325mg Tab) 650 mg PO Q6 PRN PRN Reason: Pain, Mild (1-3) Last Admin: 08/30/16 17:23 Dose: 650 mg Benzocaine/Menthol (Cepacol Sore Throat) 1 morro PO Q3 PRN PRN Reason: Sore Throat Last Admin: 09/15/16 09:05 Dose: 1 morro Bethanechol Chloride (Urecholine) 50 mg PO TID [facility] Last Admin: 09/15/16 09:02 Dose: 50 mg Carbidopa/Levodopa (Rytary Er 48.75 Mg-195 Mg Cap) 1 cap PO TID@0500,1300,2100 [facility] Last Admin: 09/15/16 04:25 Dose: 1 cap Fluocinonide (Lidex 0.05% Oint) 1 applic TOP BID [facility] Last Admin: 09/15/16 09:02 Dose: 1 appl Hydrocortisone (Anusol-Hc) 1 applic [place] BID [facility] Last Admin: 09/15/16 08:59 Dose: 1 applic Magnesium Hydroxide (Milk Of Magnesia) 30 ml PO DAILY PRN PRN Reason: Constipation Last Admin: 09/11/16 20:49 Dose: 30 ml Midodrine (Proamatine) 10 mg PO TID [facility] Last Admin: 09/15/16 09:02 Dose: 10 mg Pantoprazole Sodium (Protonix Ec Tab) 40 mg PO DAILY [facility] Last Admin: 09/15/16 09:02 Dose: 40 mg Quetiapine Fumarate (Seroquel) 50 mg PO HS PRN PRN Reason: Agitation Last Admin: 08/30/16 21:21 Dose: 50 mg - Labs Labs: 08/09/16 13:05 08/09/16 13:05 - Respiratory Exam Respiratory Exam: NORMAL BREATHING PATTERN - Cardiovascular Exam Cardiovascular Exam: REGULAR RHYTHM - GI/Abdominal Exam GI & Abdominal Exam: Normal Bowel Sounds Assessment and Plan - Assessment and Plan (Free Text) Assessment: MSA Parkinsons DX Paulyy Kamalaer PT Rytary 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 awaiting transfer to [place] Pt is competent but financially vulnerable Court and Social service involved Pt is [place] R shoulder pain Dec ROM xrays subluxation Ultram PRN PT Atelectasis Afebrile Gastroentritis? 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
[2016-09-16] MEDS: CARBIDOPA PO SCH ×3 (05:27→21:47)
[2016-09-16] MEDS: LEVODOPA PO SCH ×3 (05:27→21:47)
[2016-09-16] MEDS: Hydrocortisone 2.5% (Rectal) CREAM PR SCH ×2 (09:21→17:52)
[2016-09-16] MEDS: Pantoprazole 40 mg EC Tab PO SCH (09:22)
[2016-09-16] MEDS: Bethanechol 50 MG TAB PO SCH ×3 (09:22→17:51)
[2016-09-16] MEDS: Benzocaine/Menthol (Cepacol) Lozenge PO PRN (09:32)
--- NOTE | 2016-09-16 20:20 | CP.PCM.PN ---
Subjective - Date & Time of Evaluation Date of Evaluation: 09/16/16 Time of Evaluation: 22:22 - Subjective Subjective: Above noted Objective - Vital Signs/Intake and Output Vital Signs (last 24 hours): Temp Pulse Resp BP Pulse Ox 98.4 F 64 20 155/84 H 99 09/16/16 17:37 09/16/16 17:37 09/16/16 17:37 09/16/16 17:37 09/16/16 17:37 - Medications Medications: Current Medications Acetaminophen (Tylenol 325mg Tab) 650 mg PO Q6 PRN PRN Reason: Pain, Mild (1-3) Last Admin: 08/30/16 17:23 Dose: 650 mg Benzocaine/Menthol (Cepacol Sore Throat) 1 morro PO Q3 PRN PRN Reason: Sore Throat Last Admin: 09/16/16 09:32 Dose: 1 morro Bethanechol Chloride (Urecholine) 50 mg PO TID [facility] Last Admin: 09/16/16 17:51 Dose: 50 mg Carbidopa/Levodopa (Rytary Er 48.75 Mg-195 Mg Cap) 1 cap PO TID@0500,1300,2100 [facility] Last Admin: 09/16/16 12:59 Dose: 1 cap Fluocinonide (Lidex 0.05% Oint) 1 applic TOP BID [facility] Last Admin: 09/16/16 17:51 Dose: 1 appl Hydrocortisone (Anusol-Hc) 1 applic [place] BID [facility] Last Admin: 09/16/16 17:52 Dose: 1 applic Magnesium Hydroxide (Milk Of Magnesia) 30 ml PO DAILY PRN PRN Reason: Constipation Last Admin: 09/11/16 20:49 Dose: 30 ml Midodrine (Proamatine) 10 mg PO TID [facility] Last Admin: 09/16/16 17:51 Dose: 10 mg Pantoprazole Sodium (Protonix Ec Tab) 40 mg PO DAILY [facility] Last Admin: 09/16/16 09:22 Dose: 40 mg Quetiapine Fumarate (Seroquel) 50 mg PO HS PRN PRN Reason: Agitation Last Admin: 08/30/16 21:21 Dose: 50 mg - Labs Labs: 08/09/16 13:05 08/09/16 13:05 - Respiratory Exam Respiratory Exam: NORMAL BREATHING PATTERN - Cardiovascular Exam Cardiovascular Exam: REGULAR RHYTHM - GI/Abdominal Exam GI & Abdominal Exam: Normal Bowel Sounds Assessment and Plan - Assessment and Plan (Free Text) Assessment: MSA Parkinsons DX 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 awaiting transfer to [place] Pt is competent but financially vulnerable Court and Social service involved Pt is [place] WWII R shoulder pain Dec ROM xrays subluxation Ultram PRN PT Atelectasis Afebrile Gastroentritis? 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
[2016-09-17] MEDS: LEVODOPA PO SCH ×3 (05:33→21:15)
[2016-09-17] MEDS: CARBIDOPA PO SCH ×3 (05:33→21:15)
[2016-09-17] MEDS: Pantoprazole 40 mg EC Tab PO SCH (08:41)
[2016-09-17] MEDS: Bethanechol 50 MG TAB PO SCH ×3 (08:41→16:57)
[2016-09-17] MEDS: Hydrocortisone 2.5% (Rectal) CREAM PR SCH ×2 (08:42→16:57)
[2016-09-17] MEDS: Benzocaine/Menthol (Cepacol) Lozenge PO PRN (10:28)
--- NOTE | 2016-09-17 19:39 | CP.PCM.PN ---
Subjective - Date & Time of Evaluation Date of Evaluation: 09/17/16 Time of Evaluation: 22:22 - Subjective Subjective: Above noted Objective - Vital Signs/Intake and Output Vital Signs (last 24 hours): Temp Pulse Resp BP Pulse Ox 98.1 F 84 20 117/62 100 09/17/16 19:35 09/17/16 19:35 09/17/16 19:35 09/17/16 19:35 09/17/16 19:35 - Medications Medications: Current Medications Acetaminophen (Tylenol 325mg Tab) 650 mg PO Q6 PRN PRN Reason: Pain, Mild (1-3) Last Admin: 08/30/16 17:23 Dose: 650 mg Benzocaine/Menthol (Cepacol Sore Throat) 1 morro PO Q3 PRN PRN Reason: Sore Throat Last Admin: 09/17/16 10:28 Dose: 1 morro Bethanechol Chloride (Urecholine) 50 mg PO TID [facility] Last Admin: 09/17/16 16:57 Dose: 50 mg Carbidopa/Levodopa (Rytary Er 48.75 Mg-195 Mg Cap) 1 cap PO TID@0500,1300,2100 [facility] Last Admin: 09/17/16 12:39 Dose: 1 cap Fluocinonide (Lidex 0.05% Oint) 1 applic TOP BID [facility] Last Admin: 09/17/16 16:57 Dose: 1 appl Hydrocortisone (Anusol-Hc) 1 applic [place] BID [facility] Last Admin: 09/17/16 16:57 Dose: 1 applic Magnesium Hydroxide (Milk Of Magnesia) 30 ml PO DAILY PRN PRN Reason: Constipation Last Admin: 09/11/16 20:49 Dose: 30 ml Midodrine (Proamatine) 10 mg PO TID [facility] Last Admin: 09/17/16 16:57 Dose: 10 mg Pantoprazole Sodium (Protonix Ec Tab) 40 mg PO DAILY [facility] Last Admin: 09/17/16 08:41 Dose: 40 mg Quetiapine Fumarate (Seroquel) 50 mg PO HS PRN PRN Reason: Agitation Last Admin: 08/30/16 21:21 Dose: 50 mg - Labs Labs: 08/09/16 13:05 08/09/16 13:05 - Respiratory Exam Respiratory Exam: NORMAL BREATHING PATTERN - Cardiovascular Exam Cardiovascular Exam: REGULAR RHYTHM - GI/Abdominal Exam GI & Abdominal Exam: Normal Bowel Sounds Assessment and Plan - Assessment and Plan (Free Text) Assessment: MSA Parkinsons DX Paulyy Kamalaer PT Rytary 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 awaiting transfer to [place] Pt is competent but financially vulnerable Court and Social service involved Pt is [place] WW[place] R shoulder pain Dec ROM xrays subluxation Ultram PRN PT Atelectasis Afebrile Gastroentritis? 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
[2016-09-18] MEDS: CARBIDOPA PO SCH ×3 (05:22→21:26)
[2016-09-18] MEDS: LEVODOPA PO SCH ×3 (05:22→21:26)
[2016-09-18] MEDS: Hydrocortisone 2.5% (Rectal) CREAM PR SCH ×2 (10:12→17:01)
[2016-09-18] MEDS: Pantoprazole 40 mg EC Tab PO SCH (10:14)
[2016-09-18] MEDS: Bethanechol 50 MG TAB PO SCH ×3 (10:15→17:02)
[2016-09-18] MEDS: Benzocaine/Menthol (Cepacol) Lozenge PO PRN (12:35)
--- NOTE | 2016-09-18 18:39 | CP.PCM.PN ---
Subjective - Date & Time of Evaluation Date of Evaluation: 09/18/16 Time of Evaluation: 22:22 - Subjective Subjective: sleeping Objective - Vital Signs/Intake and Output Vital Signs (last 24 hours): Temp Pulse Resp BP Pulse Ox 97.8 F 68 20 135/72 96 09/18/16 16:15 09/18/16 16:15 09/18/16 16:15 09/18/16 16:15 09/18/16 16:15 Intake and Output: 09/18/16 09/18/16 06:59 18:59 Intake Total 240 Balance 240 - Medications Medications: Current Medications Acetaminophen (Tylenol 325mg Tab) 650 mg PO Q6 PRN PRN Reason: Pain, Mild (1-3) Last Admin: 08/30/16 17:23 Dose: 650 mg Benzocaine/Menthol (Cepacol Sore Throat) 1 morro PO Q3 PRN PRN Reason: Sore Throat Last Admin: 09/18/16 12:35 Dose: 1 morro Bethanechol Chloride (Urecholine) 50 mg PO TID [facility] Last Admin: 09/18/16 17:02 Dose: 50 mg Carbidopa/Levodopa (Rytary Er 48.75 Mg-195 Mg Cap) 1 cap PO TID@0500,1300,2100 [facility] Last Admin: 09/18/16 12:34 Dose: 1 cap Fluocinonide (Lidex 0.05% Oint) 1 applic TOP BID [facility] Last Admin: 09/18/16 17:01 Dose: 1 appl Hydrocortisone (Anusol-Hc) 1 applic [place] BID [facility] Last Admin: 09/18/16 17:01 Dose: 1 applic Magnesium Hydroxide (Milk Of Magnesia) 30 ml PO DAILY PRN PRN Reason: Constipation Last Admin: 09/11/16 20:49 Dose: 30 ml Midodrine (Proamatine) 10 mg PO TID [facility] Last Admin: 09/18/16 17:02 Dose: 10 mg Pantoprazole Sodium (Protonix Ec Tab) 40 mg PO DAILY [facility] Last Admin: 09/18/16 10:14 Dose: 40 mg Quetiapine Fumarate (Seroquel) 50 mg PO HS PRN PRN Reason: Agitation Last Admin: 08/30/16 21:21 Dose: 50 mg - Labs Labs: 08/09/16 13:05 08/09/16 13:05 - Respiratory Exam Respiratory Exam: NORMAL BREATHING PATTERN - Cardiovascular Exam Cardiovascular Exam: REGULAR RHYTHM - GI/Abdominal Exam GI & Abdominal Exam: Normal Bowel Sounds Assessment and Plan - Assessment and Plan (Free Text) Assessment: MSA Parkinsons DX Lilia Wrayer PT Rytary 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 awaiting transfer to [place] Pt is competent but financially vulnerable Court and Social service involved Pt is [place] WWII R shoulder pain Dec ROM xrays subluxation Ultram PRN PT Atelectasis Afebrile Gastroentritis? 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
[2016-09-19] MEDS: CARBIDOPA PO SCH ×3 (05:00→20:04)
[2016-09-19] MEDS: LEVODOPA PO SCH ×3 (05:00→20:04)
[2016-09-19] MEDS: Bethanechol 50 MG TAB PO SCH ×3 (08:16→16:28)
[2016-09-19] MEDS: Hydrocortisone 2.5% (Rectal) CREAM PR SCH ×2 (08:16→16:28)
[2016-09-19] MEDS: Pantoprazole 40 mg EC Tab PO SCH (08:17)
--- NOTE | 2016-09-19 21:00 | CP.PCM.PN ---
Subjective - Date & Time of Evaluation Date of Evaluation: 09/19/16 Time of Evaluation: 22:22 - Subjective Subjective: Above noted Objective - Vital Signs/Intake and Output Vital Signs (last 24 hours): Temp Pulse Resp BP Pulse Ox 98 F 90 20 151/71 H 96 09/19/16 16:53 09/19/16 16:53 09/19/16 16:53 09/19/16 16:53 09/19/16 16:53 - Medications Medications: Current Medications Acetaminophen (Tylenol 325mg Tab) 650 mg PO Q6 PRN PRN Reason: Pain, Mild (1-3) Last Admin: 08/30/16 17:23 Dose: 650 mg Benzocaine/Menthol (Cepacol Sore Throat) 1 morro PO Q3 PRN PRN Reason: Sore Throat Last Admin: 09/18/16 12:35 Dose: 1 morro Bethanechol Chloride (Urecholine) 50 mg PO TID [facility] Last Admin: 09/19/16 16:28 Dose: 50 mg Carbidopa/Levodopa (Rytary Er 48.75 Mg-195 Mg Cap) 1 cap PO TID@0500,1300,2100 [facility] Last Admin: 09/19/16 20:04 Dose: 1 cap Fluocinonide (Lidex 0.05% Oint) 1 applic TOP BID [facility] Last Admin: 09/19/16 16:28 Dose: 1 appl Hydrocortisone (Anusol-Hc) 1 applic [place] BID [facility] Last Admin: 09/19/16 16:28 Dose: 1 applic Magnesium Hydroxide (Milk Of Magnesia) 30 ml PO DAILY PRN PRN Reason: Constipation Last Admin: 09/11/16 20:49 Dose: 30 ml Midodrine (Proamatine) 10 mg PO TID [facility] Last Admin: 09/19/16 16:28 Dose: 10 mg Pantoprazole Sodium (Protonix Ec Tab) 40 mg PO DAILY [facility] Last Admin: 09/19/16 08:17 Dose: 40 mg Quetiapine Fumarate (Seroquel) 50 mg PO HS PRN PRN Reason: Agitation Last Admin: 09/19/16 20:03 Dose: 50 mg - Labs Labs: 08/09/16 13:05 08/09/16 13:05 - Respiratory Exam Respiratory Exam: NORMAL BREATHING PATTERN - Cardiovascular Exam Cardiovascular Exam: REGULAR RHYTHM - GI/Abdominal Exam GI & Abdominal Exam: Normal Bowel Sounds Assessment and Plan - Assessment and Plan (Free Text) Assessment: MSA Parkinsons DX Paulyy Kamalaer PT Rytary 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 awaiting transfer to [place] Pt is competent but financially vulnerable Court and Social service involved Pt is [place] R shoulder pain Dec ROM xrays subluxation Ultram PRN PT Atelectasis Afebrile Gastroentritis? 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
[2016-09-20] MEDS: LEVODOPA PO SCH ×3 (05:34→21:30)
[2016-09-20] MEDS: CARBIDOPA PO SCH ×3 (05:34→21:30)
[2016-09-20] MEDS: Bethanechol 50 MG TAB PO SCH ×3 (10:37→17:47)
[2016-09-20] MEDS: Pantoprazole 40 mg EC Tab PO SCH (10:37)
[2016-09-20] MEDS: Magnesium Hydroxide Susp 30 ml UD PO PRN (13:20)
[2016-09-20] MEDS: Hydrocortisone 2.5% (Rectal) CREAM PR SCH ×2 (13:22→15:00)
--- NOTE | 2016-09-20 18:14 | CP.PCM.PN ---
Subjective - Date & Time of Evaluation Date of Evaluation: 09/20/16 Time of Evaluation: 22:22 - Subjective Subjective: sitting in chair Objective - Vital Signs/Intake and Output Vital Signs (last 24 hours): Temp Pulse Resp BP Pulse Ox 98.3 F 57 L 20 105/64 99 09/20/16 17:00 09/20/16 16:27 09/20/16 16:27 09/20/16 17:00 09/20/16 16:27 - Medications Medications: Current Medications Acetaminophen (Tylenol 325mg Tab) 650 mg PO Q6 PRN PRN Reason: Pain, Mild (1-3) Last Admin: 08/30/16 17:23 Dose: 650 mg Benzocaine/Menthol (Cepacol Sore Throat) 1 morro PO Q3 PRN PRN Reason: Sore Throat Last Admin: 09/18/16 12:35 Dose: 1 morro Bethanechol Chloride (Urecholine) 50 mg PO TID [facility] Last Admin: 09/20/16 17:47 Dose: 50 mg Carbidopa/Levodopa (Rytary Er 48.75 Mg-195 Mg Cap) 1 cap PO TID@0500,1300,2100 [facility] Last Admin: 09/20/16 13:15 Dose: 1 cap Fluocinonide (Lidex 0.05% Oint) 1 applic TOP BID [facility] Last Admin: 09/20/16 17:48 Dose: 1 appl Hydrocortisone (Anusol-Hc) 1 applic [place] BID [facility] Last Admin: 09/20/16 15:00 Dose: 1 applic Magnesium Hydroxide (Milk Of Magnesia) 30 ml PO DAILY PRN PRN Reason: Constipation Last Admin: 09/20/16 13:20 Dose: 30 ml Midodrine (Proamatine) 10 mg PO TID [facility] Last Admin: 09/20/16 17:48 Dose: 10 mg Pantoprazole Sodium (Protonix Ec Tab) 40 mg PO DAILY [facility] Last Admin: 09/20/16 10:37 Dose: 40 mg Quetiapine Fumarate (Seroquel) 50 mg PO HS PRN PRN Reason: Agitation Last Admin: 09/19/16 20:03 Dose: 50 mg - Labs Labs: 08/09/16 13:05 08/09/16 13:05 - Respiratory Exam Respiratory Exam: NORMAL BREATHING PATTERN - Cardiovascular Exam Cardiovascular Exam: REGULAR RHYTHM - GI/Abdominal Exam GI & Abdominal Exam: Normal Bowel Sounds Assessment and Plan - Assessment and Plan (Free Text) Assessment: MSA Parkinsons DX 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 awaiting transfer to [place] Pt is competent but financially vulnerable Court and Social service involved Pt is [place] R shoulder pain Dec ROM xrays subluxation Ultram PRN PT Atelectasis Afebrile Gastroentritis? 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
[2016-09-21] MEDS: CARBIDOPA PO SCH ×3 (05:09→20:53)
[2016-09-21] MEDS: LEVODOPA PO SCH ×3 (05:09→20:53)
[2016-09-21] MEDS: Hydrocortisone 2.5% (Rectal) CREAM PR SCH (11:03)
[2016-09-21] MEDS: Bethanechol 50 MG TAB PO SCH ×3 (11:04→16:40)
[2016-09-21] MEDS: Pantoprazole 40 mg EC Tab PO SCH (11:04)
[2016-09-22] MEDS: CARBIDOPA PO SCH ×3 (05:34→20:53)
[2016-09-22] MEDS: LEVODOPA PO SCH ×3 (05:34→20:53)
[2016-09-22] MEDS: Bethanechol 50 MG TAB PO SCH ×3 (08:29→17:22)
[2016-09-22] MEDS: Pantoprazole 40 mg EC Tab PO SCH (08:30)
--- NOTE | 2016-09-22 13:48 | CP.PCM.PN ---
Subjective - Date & Time of Evaluation Date of Evaluation: 09/22/16 Time of Evaluation: 22:22 - Subjective Subjective: Sleeping in bed Objective - Vital Signs/Intake and Output Vital Signs (last 24 hours): Temp Pulse Resp BP Pulse Ox 97.5 F L 58 L 18 118/61 96 09/22/16 08:29 09/22/16 08:29 09/22/16 08:29 09/22/16 08:29 09/22/16 08:29 - Medications Medications: Current Medications Acetaminophen (Tylenol 325mg Tab) 650 mg PO Q6 PRN PRN Reason: Pain, Mild (1-3) Last Admin: 08/30/16 17:23 Dose: 650 mg Bethanechol Chloride (Urecholine) 50 mg PO TID [facility] Last Admin: 09/22/16 13:00 Dose: 50 mg Carbidopa/Levodopa (Rytary Er 48.75 Mg-195 Mg Cap) 1 cap PO TID@0500,1300,2100 [facility] Last Admin: 09/22/16 13:00 Dose: 1 cap Fluocinonide (Lidex 0.05% Oint) 1 applic TOP BID [facility] Last Admin: 09/22/16 08:38 Dose: 1 appl Magnesium Hydroxide (Milk Of Magnesia) 30 ml PO DAILY PRN PRN Reason: Constipation Last Admin: 09/20/16 13:20 Dose: 30 ml Midodrine (Proamatine) 10 mg PO TID [facility] Last Admin: 09/22/16 12:59 Dose: 10 mg Pantoprazole Sodium (Protonix Ec Tab) 40 mg PO DAILY [facility] Last Admin: 09/22/16 08:30 Dose: 40 mg Quetiapine Fumarate (Seroquel) 50 mg PO HS PRN PRN Reason: Agitation Last Admin: 09/22/16 08:30 Dose: 50 mg - Labs Labs: 08/09/16 13:05 08/09/16 13:05 - Respiratory Exam Respiratory Exam: NORMAL BREATHING PATTERN - Cardiovascular Exam Cardiovascular Exam: REGULAR RHYTHM - GI/Abdominal Exam GI & Abdominal Exam: Normal Bowel Sounds Assessment and Plan - Assessment and Plan (Free Text) Assessment: MSA Parkinsons DX Lilia Vieira PT Rytary 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 awaiting transfer to [place] Pt is competent but financially vulnerable Court and Social service involved Pt is [place] WWII R shoulder pain Dec ROM xrays subluxation Ultram PRN PT Atelectasis Afebrile Gastroentritis? 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
[2016-09-23] MEDS: CARBIDOPA PO SCH ×3 (04:47→20:08)
[2016-09-23] MEDS: LEVODOPA PO SCH ×3 (04:47→20:08)
[2016-09-23] MEDS: Pantoprazole 40 mg EC Tab PO SCH (08:36)
[2016-09-23] MEDS: Bethanechol 50 MG TAB PO SCH ×3 (08:36→16:59)
--- NOTE | 2016-09-23 20:44 | CP.PCM.PN ---
Subjective - Date & Time of Evaluation Date of Evaluation: 09/23/16 Time of Evaluation: 22:22 - Subjective Subjective: Above noted Objective - Vital Signs/Intake and Output Vital Signs (last 24 hours): Temp Pulse Resp BP Pulse Ox 97.5 F L 66 20 103/57 L 95 09/23/16 19:59 09/23/16 19:59 09/23/16 19:59 09/23/16 19:59 09/23/16 19:59 - Medications Medications: Current Medications Acetaminophen (Tylenol 325mg Tab) 650 mg PO Q6 PRN PRN Reason: Pain, Mild (1-3) Last Admin: 08/30/16 17:23 Dose: 650 mg Bethanechol Chloride (Urecholine) 50 mg PO TID [facility] Last Admin: 09/23/16 16:59 Dose: 50 mg Carbidopa/Levodopa (Rytary Er 48.75 Mg-195 Mg Cap) 1 cap PO TID@0500,1300,2100 [facility] Last Admin: 09/23/16 20:08 Dose: 1 cap Fluocinonide (Lidex 0.05% Oint) 1 applic TOP BID [facility] Last Admin: 09/23/16 16:58 Dose: 1 appl Magnesium Hydroxide (Milk Of Magnesia) 30 ml PO DAILY PRN PRN Reason: Constipation Last Admin: 09/20/16 13:20 Dose: 30 ml Midodrine (Proamatine) 10 mg PO TID [facility] Last Admin: 09/23/16 16:58 Dose: 10 mg Pantoprazole Sodium (Protonix Ec Tab) 40 mg PO DAILY [facility] Last Admin: 09/23/16 08:36 Dose: 40 mg Quetiapine Fumarate (Seroquel) 50 mg PO HS PRN PRN Reason: Agitation Last Admin: 09/23/16 08:36 Dose: 50 mg - Labs Labs: 08/09/16 13:05 08/09/16 13:05 - Respiratory Exam Respiratory Exam: NORMAL BREATHING PATTERN - Cardiovascular Exam Cardiovascular Exam: REGULAR RHYTHM - GI/Abdominal Exam GI & Abdominal Exam: Normal Bowel Sounds Assessment and Plan - Assessment and Plan (Free Text) Assessment: MSA Parkinsons DX Lilia Vieira PT Rytary 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 awaiting transfer to [place] Pt is competent but financially vulnerable Court and Social service involved Pt is [place] WWII R shoulder pain Dec ROM xrays subluxation Ultram PRN PT Atelectasis Afebrile Gastroentritis? 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
[2016-09-24] MEDS: CARBIDOPA PO SCH ×3 (04:26→20:18)
[2016-09-24] MEDS: LEVODOPA PO SCH ×3 (04:26→20:18)
[2016-09-24] MEDS: Pantoprazole 40 mg EC Tab PO SCH (09:00)
[2016-09-24] MEDS: Bethanechol 50 MG TAB PO SCH ×3 (09:01→17:30)
[2016-09-24] MEDS: Magnesium Hydroxide Susp 30 ml UD PO PRN (12:33)
--- NOTE | 2016-09-24 15:38 | CP.PCM.PN ---
Subjective - Date & Time of Evaluation Date of Evaluation: 09/24/16 Time of Evaluation: 22:22 - Subjective Subjective: No change Objective - Vital Signs/Intake and Output Vital Signs (last 24 hours): Temp Pulse Resp BP Pulse Ox 97.4 F L 59 L 20 112/62 97 09/24/16 08:06 09/24/16 08:06 09/24/16 08:06 09/24/16 08:06 09/24/16 08:06 - Medications Medications: Current Medications Acetaminophen (Tylenol 325mg Tab) 650 mg PO Q6 PRN PRN Reason: Pain, Mild (1-3) Last Admin: 08/30/16 17:23 Dose: 650 mg Bethanechol Chloride (Urecholine) 50 mg PO TID [facility] Last Admin: 09/24/16 13:30 Dose: 50 mg Carbidopa/Levodopa (Rytary Er 48.75 Mg-195 Mg Cap) 1 cap PO TID@0500,1300,2100 [facility] Last Admin: 09/24/16 13:30 Dose: 1 cap Fluocinonide (Lidex 0.05% Oint) 1 applic TOP BID [facility] Last Admin: 09/24/16 09:00 Dose: 1 appl Magnesium Hydroxide (Milk Of Magnesia) 30 ml PO DAILY PRN PRN Reason: Constipation Last Admin: 09/24/16 12:33 Dose: 30 ml Midodrine (Proamatine) 10 mg PO TID [facility] Last Admin: 09/24/16 13:30 Dose: 10 mg Pantoprazole Sodium (Protonix Ec Tab) 40 mg PO DAILY [facility] Last Admin: 09/24/16 09:00 Dose: 40 mg Quetiapine Fumarate (Seroquel) 50 mg PO HS PRN PRN Reason: Agitation Last Admin: 09/23/16 08:36 Dose: 50 mg - Labs Labs: 08/09/16 13:05 08/09/16 13:05 - Respiratory Exam Respiratory Exam: NORMAL BREATHING PATTERN - Cardiovascular Exam Cardiovascular Exam: REGULAR RHYTHM - GI/Abdominal Exam GI & Abdominal Exam: Normal Bowel Sounds Assessment and Plan - Assessment and Plan (Free Text) Assessment: MSA Parkinsons DX Lilia Vieira PT Rytary 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 awaiting transfer to [place] Pt is competent but financially vulnerable Court and Social service involved Pt is [place] R shoulder pain Dec ROM xrays subluxation Ultram PRN PT Atelectasis Afebrile Gastroentritis? 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
[2016-09-25] MEDS: CARBIDOPA PO SCH ×3 (05:18→20:29)
[2016-09-25] MEDS: LEVODOPA PO SCH ×3 (05:18→20:29)
[2016-09-25] MEDS: Bethanechol 50 MG TAB PO SCH ×2 (08:52→17:08)
[2016-09-25] MEDS: Pantoprazole 40 mg EC Tab PO SCH (08:52)
[2016-09-25] MEDS: Magnesium Hydroxide Susp 30 ml UD PO PRN (09:43)
--- NOTE | 2016-09-25 19:10 | CP.PCM.PN ---
Subjective - Date & Time of Evaluation Date of Evaluation: 09/25/16 Time of Evaluation: 22:22 - Subjective Subjective: Above noted Objective - Vital Signs/Intake and Output Vital Signs (last 24 hours): Temp Pulse Resp BP Pulse Ox 98.0 F 58 L 20 144/76 97 09/25/16 16:30 09/25/16 16:30 09/25/16 16:30 09/25/16 16:30 09/25/16 16:30 - Medications Medications: Current Medications Acetaminophen (Tylenol 325mg Tab) 650 mg PO Q6 PRN PRN Reason: Pain, Mild (1-3) Last Admin: 08/30/16 17:23 Dose: 650 mg Benzocaine/Menthol (Cepacol Sore Throat) 1 morro PO Q3 PRN PRN Reason: Sore Throat Bethanechol Chloride (Urecholine) 50 mg PO TID [facility] Last Admin: 09/25/16 17:08 Dose: 50 mg Carbidopa/Levodopa (Rytary Er 48.75 Mg-195 Mg Cap) 1 cap PO TID@0500,1300,2100 [facility] Last Admin: 09/25/16 14:18 Dose: 1 cap Fluocinonide (Lidex 0.05% Oint) 1 applic TOP BID [facility] Last Admin: 09/25/16 17:08 Dose: 1 appl Magnesium Hydroxide (Milk Of Magnesia) 30 ml PO DAILY PRN PRN Reason: Constipation Last Admin: 09/25/16 09:43 Dose: 30 ml Midodrine (Proamatine) 10 mg PO TID [facility] Last Admin: 09/25/16 17:08 Dose: 10 mg Pantoprazole Sodium (Protonix Ec Tab) 40 mg PO DAILY [facility] Last Admin: 09/25/16 08:52 Dose: 40 mg Quetiapine Fumarate (Seroquel) 50 mg PO HS PRN PRN Reason: Agitation Last Admin: 09/23/16 08:36 Dose: 50 mg - Labs Labs: 08/09/16 13:05 08/09/16 13:05 - Respiratory Exam Respiratory Exam: NORMAL BREATHING PATTERN - Cardiovascular Exam Cardiovascular Exam: REGULAR RHYTHM - GI/Abdominal Exam GI & Abdominal Exam: Normal Bowel Sounds Assessment and Plan - Assessment and Plan (Free Text) Assessment: MSA Parkinsons DX Lilia Vieira PT Rytary 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 awaiting transfer to [place] Pt is competent but financially vulnerable Court and Social service involved Pt is [place] R shoulder pain Dec ROM xrays subluxation Ultram PRN PT Atelectasis Afebrile Gastroentritis? 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
[2016-09-26] MEDS: CARBIDOPA PO SCH ×3 (04:50→20:43)
[2016-09-26] MEDS: LEVODOPA PO SCH ×3 (04:50→20:43)
[2016-09-26] MEDS: Pantoprazole 40 mg EC Tab PO SCH (08:46)
[2016-09-26] MEDS: Bethanechol 50 MG TAB PO SCH ×3 (08:46→16:04)
[2016-09-26] MEDS: Magnesium Hydroxide Susp 30 ml UD PO PRN (08:52)
--- NOTE | 2016-09-26 21:28 | CP.PCM.PN ---
Subjective - Date & Time of Evaluation Date of Evaluation: 09/26/16 Time of Evaluation: 22:22 - Subjective Subjective: Doing well Objective - Vital Signs/Intake and Output Vital Signs (last 24 hours): Temp Pulse Resp BP Pulse Ox 97.3 F L 85 20 152/78 H 96 09/26/16 16:09 09/26/16 16:09 09/26/16 16:09 09/26/16 16:09 09/26/16 16:09 - Medications Medications: Current Medications Acetaminophen (Tylenol 325mg Tab) 650 mg PO Q6 PRN PRN Reason: Pain, Mild (1-3) Last Admin: 08/30/16 17:23 Dose: 650 mg Benzocaine/Menthol (Cepacol Sore Throat) 1 morro PO Q3 PRN PRN Reason: Sore Throat Bethanechol Chloride (Urecholine) 50 mg PO TID [facility] Last Admin: 09/26/16 16:04 Dose: 50 mg Carbidopa/Levodopa (Rytary Er 48.75 Mg-195 Mg Cap) 1 cap PO TID@0500,1300,2100 [facility] Last Admin: 09/26/16 20:43 Dose: 1 cap Fluocinonide (Lidex 0.05% Oint) 1 applic TOP BID [facility] Last Admin: 09/26/16 16:04 Dose: 1 appl Magnesium Hydroxide (Milk Of Magnesia) 30 ml PO DAILY PRN PRN Reason: Constipation Last Admin: 09/26/16 08:52 Dose: 30 ml Midodrine (Proamatine) 10 mg PO TID [facility] Last Admin: 09/26/16 16:04 Dose: 10 mg Pantoprazole Sodium (Protonix Ec Tab) 40 mg PO DAILY [facility] Last Admin: 09/26/16 08:46 Dose: 40 mg Quetiapine Fumarate (Seroquel) 50 mg PO HS PRN PRN Reason: Agitation Last Admin: 09/23/16 08:36 Dose: 50 mg - Labs Labs: 08/09/16 13:05 08/09/16 13:05 - Respiratory Exam Respiratory Exam: NORMAL BREATHING PATTERN - Cardiovascular Exam Cardiovascular Exam: REGULAR RHYTHM - GI/Abdominal Exam GI & Abdominal Exam: Normal Bowel Sounds Assessment and Plan - Assessment and Plan (Free Text) Assessment: MSA Parkinsons DX Lilia Vieira PT Rytary 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 awaiting transfer to [place] Pt is competent but financially vulnerable Court and Social service involved Pt is [place] WWII R shoulder pain Dec ROM xrays subluxation Ultram PRN PT Atelectasis Afebrile Gastroentritis? 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
[2016-09-27] MEDS: LEVODOPA PO SCH ×3 (04:50→20:47)
[2016-09-27] MEDS: CARBIDOPA PO SCH ×3 (04:50→20:47)
[2016-09-27] MEDS: Benzocaine/Menthol (Cepacol) Lozenge PO PRN ×3 (05:28→21:53)
[2016-09-27] MEDS: Bethanechol 50 MG TAB PO SCH ×3 (08:52→17:14)
[2016-09-27] MEDS: Magnesium Hydroxide Susp 30 ml UD PO PRN (08:57)
[2016-09-27] MEDS: Pantoprazole 40 mg EC Tab PO SCH (09:04)
--- NOTE | 2016-09-27 19:34 | CP.PCM.PN ---
Subjective - Date & Time of Evaluation Date of Evaluation: 09/27/16 Time of Evaluation: 22:22 - Subjective Subjective: Above noted Objective - Vital Signs/Intake and Output Vital Signs (last 24 hours): Temp Pulse Resp BP Pulse Ox 97.4 F L 82 20 151/92 H 93 L 09/27/16 15:59 09/27/16 15:59 09/27/16 15:59 09/27/16 15:59 09/27/16 15:59 - Medications Medications: Current Medications Acetaminophen (Tylenol 325mg Tab) 650 mg PO Q6 PRN PRN Reason: Pain, Mild (1-3) Last Admin: 09/27/16 12:50 Dose: 650 mg Benzocaine/Menthol (Cepacol Sore Throat) 1 morro PO Q3 PRN PRN Reason: Sore Throat Last Admin: 09/27/16 13:31 Dose: 1 morro Bethanechol Chloride (Urecholine) 50 mg PO TID [facility] Last Admin: 09/27/16 17:14 Dose: 50 mg Carbidopa/Levodopa (Rytary Er 48.75 Mg-195 Mg Cap) 1 cap PO TID@0500,1300,2100 [facility] Last Admin: 09/27/16 12:42 Dose: 1 cap Fluocinonide (Lidex 0.05% Oint) 1 applic TOP BID [facility] Last Admin: 09/27/16 17:13 Dose: 1 appl Magnesium Hydroxide (Milk Of Magnesia) 30 ml PO DAILY PRN PRN Reason: Constipation Last Admin: 09/27/16 08:57 Dose: 30 ml Midodrine (Proamatine) 10 mg PO TID [facility] Last Admin: 09/27/16 17:13 Dose: Not Given Pantoprazole Sodium (Protonix Ec Tab) 40 mg PO DAILY [facility] Last Admin: 09/27/16 09:04 Dose: 40 mg Quetiapine Fumarate (Seroquel) 50 mg PO HS PRN PRN Reason: Agitation Last Admin: 09/23/16 08:36 Dose: 50 mg - Labs Labs: 08/09/16 13:05 08/09/16 13:05 - Respiratory Exam Respiratory Exam: NORMAL BREATHING PATTERN - Cardiovascular Exam Cardiovascular Exam: REGULAR RHYTHM - GI/Abdominal Exam GI & Abdominal Exam: Normal Bowel Sounds Assessment and Plan - Assessment and Plan (Free Text) Assessment: MSA Parkinsons DX Lilia Vieira PT Rytary 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 awaiting transfer to [place] Pt is competent but financially vulnerable Court and Social service involved Pt is [place] R shoulder pain Dec ROM xrays subluxation Ultram PRN PT Atelectasis Afebrile Gastroentritis? 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
[2016-09-28] MEDS: LEVODOPA PO SCH ×3 (05:20→20:24)
[2016-09-28] MEDS: CARBIDOPA PO SCH ×3 (05:20→20:24)
[2016-09-28] MEDS: Pantoprazole 40 mg EC Tab PO SCH (09:11)
[2016-09-28] MEDS: Bethanechol 50 MG TAB PO SCH ×3 (09:12→16:24)
[2016-09-28] MEDS: Benzocaine/Menthol (Cepacol) Lozenge PO PRN (20:32)
--- NOTE | 2016-09-28 23:47 | CP.PCM.PN ---
Subjective - Date & Time of Evaluation Date of Evaluation: 09/28/16 Time of Evaluation: 22:22 - Subjective Subjective: Above noted Objective - Vital Signs/Intake and Output Vital Signs (last 24 hours): Temp Pulse Resp BP Pulse Ox 97.7 F 78 20 145/84 98 09/28/16 16:00 09/28/16 16:00 09/28/16 16:00 09/28/16 16:00 09/28/16 16:00 - Medications Medications: Current Medications Acetaminophen (Tylenol 325mg Tab) 650 mg PO Q6 PRN PRN Reason: Pain, Mild (1-3) Last Admin: 09/27/16 12:50 Dose: 650 mg Benzocaine/Menthol (Cepacol Sore Throat) 1 morro PO Q3 PRN PRN Reason: Sore Throat Last Admin: 09/28/16 20:32 Dose: 1 morro Bethanechol Chloride (Urecholine) 50 mg PO TID [facility] Last Admin: 09/28/16 16:24 Dose: 50 mg Carbidopa/Levodopa (Rytary Er 48.75 Mg-195 Mg Cap) 1 cap PO TID@0500,1300,2100 [facility] Last Admin: 09/28/16 20:24 Dose: 1 cap Fluocinonide (Lidex 0.05% Oint) 1 applic TOP BID [facility] Last Admin: 09/28/16 16:24 Dose: 1 appl Magnesium Hydroxide (Milk Of Magnesia) 30 ml PO DAILY PRN PRN Reason: Constipation Last Admin: 09/27/16 08:57 Dose: 30 ml Midodrine (Proamatine) 10 mg PO TID [facility] Last Admin: 09/28/16 16:25 Dose: 10 mg Pantoprazole Sodium (Protonix Ec Tab) 40 mg PO DAILY [facility] Last Admin: 09/28/16 09:11 Dose: 40 mg Quetiapine Fumarate (Seroquel) 50 mg PO HS PRN PRN Reason: Agitation Last Admin: 09/23/16 08:36 Dose: 50 mg - Labs Labs: 08/09/16 13:05 08/09/16 13:05 - Respiratory Exam Respiratory Exam: NORMAL BREATHING PATTERN - Cardiovascular Exam Cardiovascular Exam: REGULAR RHYTHM - GI/Abdominal Exam GI & Abdominal Exam: Normal Bowel Sounds Assessment and Plan - Assessment and Plan (Free Text) Assessment: MSA Parkinsons DX 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 awaiting transfer to [place] Pt is competent but financially vulnerable Court and Social service involved Pt is [place] R shoulder pain Dec ROM xrays subluxation Ultram PRN PT Atelectasis Afebrile Gastroentritis? 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
[2016-09-29] MEDS: CARBIDOPA PO SCH ×3 (05:27→21:25)
[2016-09-29] MEDS: LEVODOPA PO SCH ×3 (05:27→21:25)
[2016-09-29] MEDS: Bethanechol 50 MG TAB PO SCH ×3 (08:48→16:07)
[2016-09-29] MEDS: Pantoprazole 40 mg EC Tab PO SCH (08:48)
--- NOTE | 2016-09-29 15:40 | CP.PCM.PN ---
Subjective - Date & Time of Evaluation Date of Evaluation: 09/29/16 Time of Evaluation: 22:22 - Subjective Subjective: Resting in bed Objective - Vital Signs/Intake and Output Vital Signs (last 24 hours): Temp Pulse Resp BP Pulse Ox 97.7 F 63 20 156/75 H 97 09/29/16 08:16 09/29/16 08:16 09/29/16 08:16 09/29/16 08:16 09/29/16 08:16 - Medications Medications: Current Medications Acetaminophen (Tylenol 325mg Tab) 650 mg PO Q6 PRN PRN Reason: Pain, Mild (1-3) Last Admin: 09/27/16 12:50 Dose: 650 mg Benzocaine/Menthol (Cepacol Sore Throat) 1 morro PO Q3 PRN PRN Reason: Sore Throat Last Admin: 09/28/16 20:32 Dose: 1 morro Bethanechol Chloride (Urecholine) 50 mg PO TID [facility] Last Admin: 09/29/16 12:39 Dose: 50 mg Carbidopa/Levodopa (Rytary Er 48.75 Mg-195 Mg Cap) 1 cap PO TID@0500,1300,2100 [facility] Last Admin: 09/29/16 12:38 Dose: 1 cap Fluocinonide (Lidex 0.05% Oint) 1 applic TOP BID [facility] Last Admin: 09/29/16 08:46 Dose: 1 appl Magnesium Hydroxide (Milk Of Magnesia) 30 ml PO DAILY PRN PRN Reason: Constipation Last Admin: 09/27/16 08:57 Dose: 30 ml Midodrine (Proamatine) 10 mg PO TID [facility] Last Admin: 09/29/16 12:38 Dose: 10 mg Pantoprazole Sodium (Protonix Ec Tab) 40 mg PO DAILY [facility] Last Admin: 09/29/16 08:48 Dose: 40 mg Quetiapine Fumarate (Seroquel) 50 mg PO HS PRN PRN Reason: Agitation Last Admin: 09/23/16 08:36 Dose: 50 mg - Labs Labs: 08/09/16 13:05 08/09/16 13:05 - Respiratory Exam Respiratory Exam: NORMAL BREATHING PATTERN - Cardiovascular Exam Cardiovascular Exam: REGULAR RHYTHM - GI/Abdominal Exam GI & Abdominal Exam: Normal Bowel Sounds Assessment and Plan - Assessment and Plan (Free Text) Assessment: MSA Parkinsons DX Lilia Vieira PT Rytary 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 awaiting transfer to [place] Pt is competent but financially vulnerable Court and Social service involved Pt is [place] WW[place] R shoulder pain Dec ROM xrays subluxation Ultram PRN PT Atelectasis Afebrile Gastroentritis? 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
[2016-09-30] MEDS: LEVODOPA PO SCH ×3 (06:00→21:13)
[2016-09-30] MEDS: CARBIDOPA PO SCH ×3 (06:00→21:13)
[2016-09-30] MEDS: Pantoprazole 40 mg EC Tab PO SCH (08:20)
[2016-09-30] MEDS: Bethanechol 50 MG TAB PO SCH ×3 (08:20→17:09)
[2016-09-30] MEDS: Benzocaine/Menthol (Cepacol) Lozenge PO PRN (08:55)
[2016-09-30] MEDS: Magnesium Hydroxide Susp 30 ml UD PO PRN (11:47)
--- NOTE | 2016-09-30 19:11 | CP.PCM.PN ---
Subjective - Date & Time of Evaluation Date of Evaluation: 09/30/16 Time of Evaluation: 22:22 - Subjective Subjective: ABove noted Objective - Vital Signs/Intake and Output Vital Signs (last 24 hours): Temp Pulse Resp BP Pulse Ox 97.4 F L 99 H 18 130/68 95 09/30/16 08:19 09/30/16 08:19 09/30/16 08:19 09/30/16 08:19 09/30/16 08:19 - Medications Medications: Current Medications Acetaminophen (Tylenol 325mg Tab) 650 mg PO Q6 PRN PRN Reason: Pain, Mild (1-3) Last Admin: 09/27/16 12:50 Dose: 650 mg Benzocaine/Menthol (Cepacol Sore Throat) 1 morro PO Q3 PRN PRN Reason: Sore Throat Last Admin: 09/30/16 08:55 Dose: 1 morro Bethanechol Chloride (Urecholine) 50 mg PO TID [facility] Last Admin: 09/30/16 17:09 Dose: 50 mg Carbidopa/Levodopa (Rytary Er 48.75 Mg-195 Mg Cap) 1 cap PO TID@0500,1300,2100 [facility] Last Admin: 09/30/16 12:28 Dose: 1 cap Fluocinonide (Lidex 0.05% Oint) 1 applic TOP BID [facility] Last Admin: 09/30/16 17:10 Dose: 1 appl Magnesium Hydroxide (Milk Of Magnesia) 30 ml PO DAILY PRN PRN Reason: Constipation Last Admin: 09/30/16 11:47 Dose: 30 ml Midodrine (Proamatine) 10 mg PO TID [facility] Last Admin: 09/30/16 17:10 Dose: 10 mg Pantoprazole Sodium (Protonix Ec Tab) 40 mg PO DAILY [facility] Last Admin: 09/30/16 08:20 Dose: 40 mg Quetiapine Fumarate (Seroquel) 50 mg PO HS PRN PRN Reason: Agitation Last Admin: 09/23/16 08:36 Dose: 50 mg - Labs Labs: 08/09/16 13:05 08/09/16 13:05 - Respiratory Exam Respiratory Exam: NORMAL BREATHING PATTERN - Cardiovascular Exam Cardiovascular Exam: REGULAR RHYTHM - GI/Abdominal Exam GI & Abdominal Exam: Normal Bowel Sounds Assessment and Plan - Assessment and Plan (Free Text) Assessment: MSA Parkinsons DX Lilia Vieira PT Rytary 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 awaiting transfer to [place] Pt is competent but financially vulnerable Court and Social service involved Pt is [place] R shoulder pain Dec ROM xrays subluxation Ultram PRN PT Atelectasis Afebrile Gastroentritis? 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
[2016-10-01] MEDS: CARBIDOPA PO SCH ×3 (04:49→21:28)
[2016-10-01] MEDS: LEVODOPA PO SCH ×3 (04:49→21:28)
[2016-10-01] MEDS: Pantoprazole 40 mg EC Tab PO SCH (08:05)
[2016-10-01] MEDS: Bethanechol 50 MG TAB PO SCH ×3 (08:05→16:27)
--- NOTE | 2016-10-01 21:28 | CP.PCM.PN ---
Subjective - Date & Time of Evaluation Date of Evaluation: 10/01/16 Time of Evaluation: 22:22 - Subjective Subjective: Rigidity Shoulder pain Objective - Vital Signs/Intake and Output Vital Signs (last 24 hours): Temp Pulse Resp BP Pulse Ox 97.8 F 61 20 137/67 98 10/01/16 17:51 10/01/16 17:51 10/01/16 17:51 10/01/16 17:51 10/01/16 17:51 - Medications Medications: Current Medications Acetaminophen (Tylenol 325mg Tab) 650 mg PO Q6 PRN PRN Reason: Pain, Mild (1-3) Last Admin: 09/27/16 12:50 Dose: 650 mg Benzocaine/Menthol (Cepacol Sore Throat) 1 morro PO Q3 PRN PRN Reason: Sore Throat Last Admin: 09/30/16 08:55 Dose: 1 morro Bethanechol Chloride (Urecholine) 50 mg PO TID [facility] Last Admin: 10/01/16 16:27 Dose: 50 mg Carbidopa/Levodopa (Rytary Er 48.75 Mg-195 Mg Cap) 1 cap PO TID@0500,1300,2100 [facility] Last Admin: 10/01/16 12:46 Dose: 1 cap Fluocinonide (Lidex 0.05% Oint) 1 applic TOP BID [facility] Last Admin: 10/01/16 16:27 Dose: 1 appl Magnesium Hydroxide (Milk Of Magnesia) 30 ml PO DAILY PRN PRN Reason: Constipation Last Admin: 09/30/16 11:47 Dose: 30 ml Midodrine (Proamatine) 10 mg PO TID [facility] Last Admin: 10/01/16 16:27 Dose: 10 mg Pantoprazole Sodium (Protonix Ec Tab) 40 mg PO DAILY [facility] Last Admin: 10/01/16 08:05 Dose: 40 mg Quetiapine Fumarate (Seroquel) 50 mg PO HS PRN PRN Reason: Agitation Last Admin: 09/23/16 08:36 Dose: 50 mg - Labs Labs: 08/09/16 13:05 08/09/16 13:05 - Respiratory Exam Respiratory Exam: NORMAL BREATHING PATTERN - Cardiovascular Exam Cardiovascular Exam: REGULAR RHYTHM - GI/Abdominal Exam GI & Abdominal Exam: Normal Bowel Sounds Assessment and Plan - Assessment and Plan (Free Text) Assessment: MSA Parkinsons DX 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 awaiting transfer to [place] Pt is competent but financially vulnerable Court and Social service involved Pt is [place] R shoulder pain Dec ROM xrays subluxation Ultram PRN PT Atelectasis Afebrile Gastroentritis? 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
[2016-10-02] MEDS: LEVODOPA PO SCH ×3 (05:36→20:42)
[2016-10-02] MEDS: CARBIDOPA PO SCH ×3 (05:36→20:42)
[2016-10-02] MEDS: Pantoprazole 40 mg EC Tab PO SCH (10:43)
[2016-10-02] MEDS: Bethanechol 50 MG TAB PO SCH ×3 (10:43→17:41)
--- NOTE | 2016-10-02 13:30 | CON ---
DATE: 10/02/2016 CHIEF COMPLAINT: Increased stiffness in patient with Parkinson's. 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 During th e course of his hospitalization, he has had multiple urinary tract infections and underlying pneumoni a which has been resulted and has improved. His electrolytes have been fluctuating as well as blood pressures have been monitored and corrected. I was consulted for increased stiffness and rigidity. The patient is currently on his Rytary of 48.75 p.o. t.i.d. 3 pills in the morning, 2 pills in the af ternoon and 3 pills in the evening. His tremors are stable, but he has much increased stiffness. No acute events overnight. No hallucinations. He is or Seroquel for agitation p.r.n. REVIEW OF SYSTEMS: A 14-point review of systems is negative except for the HPI. PAST MEDICAL HISTORY: Parkinson's disease, Shy-Drager syndrome, arthritis, recurrent falls. MEDICATIONS: Reviewed via nurse's reconciliation sheet. ALLERGIES: ALLERGIC TO PENICILLIN. SOCIAL HISTORY: No illicit drug use, smoking, or ETOH abuse. PHYSICAL EXAMINATION: VITAL SIGNS: Temperature of 97.9, pulse rate of 90, blood pressure 124/62, respiratory rate of 20, o xygen saturation 98% via room air. GENERAL: The patient is sitting up in the chair, in no acute distress. HEENT: Atraumatic, normocephalic. PERRLA. Extraocular muscles intact. NECK: Supple, no JVD, no adenopathy noted. LUNGS: Clear to auscultation. No adventitious sounds. HEART: S1, S2, normal rate and rhythm. No murmurs, rubs, or gallops. ABDOMEN: Soft, nontender, nondistended. Bowel sounds are present. EXTREMITIES: No clubbing, no cyanosis. Peripheral pulses 2+ felt bilaterally. NEUROLOGIC: The patient is alert, oriented to person and place, not much of month or year. Poor att ention span, slowed thought process. Recall after 5 minutes is 0/3. Speech is hypophonic with mask- like facies. Cranial nerves II-XII are intact. MOTOR: Has increased tone throughout. Increased cogwheel rigidity at both wrists. SENSORY: Light touch, pinprick, proprioception, vibration is intact bilaterally. DTRs 2+ throughout . COORDINATION: [id number] intact. Gait is deferred for now. LABORATORY DATA: Labs were reviewed. 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 I was reconsulted for increased stiffness. Based on my neurological examinatio n, I feel like his tremors and stiffness are stable, but with mild increased in rigidity. At this ti me, will recommend: 1. To place him on baclofen 10 mg p.o. t.i.d. to help him increase his movements along with physical therapy. He needs to do more aggressive physical therapy for Parkinson's based therapies in order t o improve the rigidity as well. 2. Continue with his Rytary 48.75 p.o. t.i.d. which means 3 pills in the morning, 3 pills in the aft ernoon and 3 pills at night for his underlying Parkinson's disease. 3. Continue to monitor his underlying Shy-Drager syndrome and for his orthostatic hypotension. Avoi d sudden movements. 66 He will need long-term placement and chcf placement. At this time, continue with current present medical management. Thank you for this consult. Casey Andrade MD cc: [id number] TT: 10/02/2016 13:29:19 Confirmation # [id number] Dictation # [id number] tn
--- NOTE | 2016-10-02 20:09 | CP.PCM.PN ---
Subjective - Date & Time of Evaluation Date of Evaluation: 10/02/16 Time of Evaluation: 22:22 - Subjective Subjective: d/w SS Objective - Vital Signs/Intake and Output Vital Signs (last 24 hours): Temp Pulse Resp BP Pulse Ox 97.4 F L 72 20 135/75 98 10/02/16 16:46 10/02/16 16:46 10/02/16 16:46 10/02/16 16:46 10/02/16 16:46 - Medications Medications: Current Medications Acetaminophen (Tylenol 325mg Tab) 650 mg PO Q6 PRN PRN Reason: Pain, Mild (1-3) Last Admin: 09/27/16 12:50 Dose: 650 mg Baclofen (Lioresal) 10 mg PO TID [facility] BEDS [facility] Last Admin: 10/02/16 17:41 Dose: 10 mg Benzocaine/Menthol (Cepacol Sore Throat) 1 morro PO Q3 PRN PRN Reason: Sore Throat Last Admin: 09/30/16 08:55 Dose: 1 morro Bethanechol Chloride (Urecholine) 50 mg PO TID [facility] 234 BEDS [facility] Last Admin: 10/02/16 17:41 Dose: 50 mg Carbidopa/Levodopa (Rytary Er 48.75 Mg-195 Mg Cap) 1 cap PO TID@0500,1300,2100 [facility] 234 [facility]EDS [facility] Last Admin: 10/02/16 12:58 Dose: 1 cap Fluocinonide (Lidex 0.05% Oint) 1 applic TOP BID [facility] 234 [facility]S [facility] Last Admin: 10/02/16 17:41 Dose: 1 appl Magnesium Hydroxide (Milk Of Magnesia) 30 ml PO DAILY PRN PRN Reason: Constipation Last Admin: 09/30/16 11:47 Dose: 30 ml Midodrine (Proamatine) 10 mg PO TID [facility] 234 B[facility]S [facility] Last Admin: 10/02/16 17:41 Dose: 10 mg Pantoprazole Sodium (Protonix Ec Tab) 40 mg PO DAILY [facility] 234 BEDS [facility] Last Admin: 10/02/16 10:43 Dose: 40 mg Quetiapine Fumarate (Seroquel) 50 mg PO HS PRN PRN Reason: Agitation Last Admin: 09/23/16 08:36 Dose: 50 mg - Labs Labs: 08/09/16 13:05 08/09/16 13:05 - Respiratory Exam Respiratory Exam: NORMAL BREATHING PATTERN - Cardiovascular Exam Cardiovascular Exam: REGULAR RHYTHM - GI/Abdominal Exam GI & Abdominal Exam: Normal Bowel Sounds Assessment and Plan - Assessment and Plan (Free Text) Assessment: MSA Parkinsons DX Lilia Wrayer PT Rytary 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 awaiting transfer to [place] Pt is competent but financially vulnerable Court and Social service involved Pt is [place] WWII R shoulder pain Dec ROM xrays subluxation Ultram PRN PT Atelectasis Afebrile Gastroentritis? 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
[2016-10-03] MEDS: CARBIDOPA PO SCH ×3 (05:01→20:54)
[2016-10-03] MEDS: LEVODOPA PO SCH ×3 (05:01→20:54)
[2016-10-03] MEDS: Pantoprazole 40 mg EC Tab PO SCH (08:25)
[2016-10-03] MEDS: Bethanechol 50 MG TAB PO SCH ×3 (08:25→16:16)
--- NOTE | 2016-10-03 20:55 | CP.PCM.PN ---
Subjective - Date & Time of Evaluation Date of Evaluation: 10/03/16 Time of Evaluation: 22:22 - Subjective Subjective: Above noted Objective - Vital Signs/Intake and Output Vital Signs (last 24 hours): Temp Pulse Resp BP Pulse Ox 97.8 F 76 20 176/97 H 98 10/03/16 17:20 10/03/16 17:20 10/03/16 17:20 10/03/16 17:20 10/03/16 17:20 - Medications Medications: Current Medications Acetaminophen (Tylenol 325mg Tab) 650 mg PO Q6 PRN PRN Reason: Pain, Mild (1-3) Last Admin: 09/27/16 12:50 Dose: 650 mg Baclofen (Lioresal) 10 mg PO TID [facility] Last Admin: 10/03/16 16:17 Dose: 10 mg Benzocaine/Menthol (Cepacol Sore Throat) 1 morro PO Q3 PRN PRN Reason: Sore Throat Last Admin: 09/30/16 08:55 Dose: 1 morro Bethanechol Chloride (Urecholine) 50 mg PO TID [facility] Last Admin: 10/03/16 16:16 Dose: 50 mg Carbidopa/Levodopa (Rytary Er 48.75 Mg-195 Mg Cap) 1 cap PO TID@0500,1300,2100 [facility] Last Admin: 10/03/16 20:54 Dose: 1 cap Fluocinonide (Lidex 0.05% Oint) 1 applic TOP BID [facility] Last Admin: 10/03/16 16:16 Dose: 1 appl Magnesium Hydroxide (Milk Of Magnesia) 30 ml PO DAILY PRN PRN Reason: Constipation Last Admin: 09/30/16 11:47 Dose: 30 ml Midodrine (Proamatine) 10 mg PO TID [facility] Last Admin: 10/03/16 16:17 Dose: 10 mg Pantoprazole Sodium (Protonix Ec Tab) 40 mg PO DAILY [facility] Last Admin: 10/03/16 08:25 Dose: 40 mg Quetiapine Fumarate (Seroquel) 50 mg PO HS PRN PRN Reason: Agitation Last Admin: 09/23/16 08:36 Dose: 50 mg - Labs Labs: 08/09/16 13:05 08/09/16 13:05 - Respiratory Exam Respiratory Exam: NORMAL BREATHING PATTERN - Cardiovascular Exam Cardiovascular Exam: REGULAR RHYTHM - GI/Abdominal Exam GI & Abdominal Exam: Normal Bowel Sounds Assessment and Plan - Assessment and Plan (Free Text) Assessment: MSA Parkinsons DX 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 awaiting transfer to [place] Pt is competent but financially vulnerable Court and Social service involved Pt is [place] R shoulder pain Dec ROM xrays subluxation Ultram PRN PT Atelectasis Afebrile Gastroentritis? 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
[2016-10-04] MEDS: LEVODOPA PO SCH ×3 (05:37→22:49)
[2016-10-04] MEDS: CARBIDOPA PO SCH ×3 (05:37→22:49)
[2016-10-04] MEDS: Pantoprazole 40 mg EC Tab PO SCH (09:35)
[2016-10-04] MEDS: Bethanechol 50 MG TAB PO SCH ×3 (09:35→16:10)
[2016-10-04 10:48] LABS: HEMOGLOBIN 13.7 g/dL (12.0-18.0); MEAN CELL VOLUME 93.2 fl (80.0-94.0); MEAN CORPUSCULAR HEMOGLOBIN 31.3 pg (27.0-31.0); MEAN CORPUSCULAR HGB CONC 33.6 g/dL (33.0-37.0); RBC 4.37 Mil/uL (4.40-5.90); RED CELL DISTRIBUTION WIDTH 14.1 % (11.5-14.5); WHITE BLOOD COUNT 6.9 K/uL (4.8-10.8)
[2016-10-04 10:52] LABS: BLOOD UREA NITROGEN 21 mg/dl (9-20); CALCIUM 9.6 mg/dL (8.4-10.2); GFR AFRICAN-AMERICAN > 60; GFR NON-AFRICAN AMERICAN > 60
--- NOTE | 2016-10-04 12:28 | RAD ---
HISTORY: cough COMPARISON: Comparison chest 08/12/2016 FINDINGS: LUNGS: Mild bibasilar atelectasis right greater than left. Developing infiltrates could be excluded followup radiographs. There appears to be slight blunting right CP angle which could be due to small effusion. PLEURA: No pneumothorax apparent. CARDIOVASCULAR: Cardiomegaly. Aorta is ectatic and uncoiled. OSSEOUS STRUCTURES: Degenerative changes both shoulder girdles. Mild multilevel degenerative spondylosis of the thoracic spine. VISUALIZED UPPER ABDOMEN: Normal. OTHER FINDINGS: None. IMPRESSION: Mild bibasilar atelectasis right greater than left. Developing infiltrates could be excluded followup radiographs. There appears to be slight blunting right CP angle which could be due to small effusion.
[2016-10-04] MEDS: Dextrose 5%/0.45% NS 1,000 ML IV SCH (14:45)
--- NOTE | 2016-10-04 19:28 | CP.PCM.PN ---
Subjective - Date & Time of Evaluation Date of Evaluation: 10/04/16 Time of Evaluation: 22:22 - Subjective Subjective: Coughing Objective - Vital Signs/Intake and Output Vital Signs (last 24 hours): Temp Pulse Resp BP Pulse Ox 98.2 F 80 20 122/51 L 95 10/04/16 18:07 10/04/16 18:07 10/04/16 18:07 10/04/16 18:07 10/04/16 18:07 - Medications Medications: Current Medications Acetaminophen (Tylenol 325mg Tab) 650 mg PO Q6 PRN PRN Reason: Pain, Mild (1-3) Last Admin: 09/27/16 12:50 Dose: 650 mg Baclofen (Lioresal) 10 mg PO TID [facility] Last Admin: 10/04/16 16:10 Dose: Not Given Benzocaine/Menthol (Cepacol Sore Throat) 1 morro PO Q3 PRN PRN Reason: Sore Throat Last Admin: 09/30/16 08:55 Dose: 1 morro Bethanechol Chloride (Urecholine) 50 mg PO TID [facility] Last Admin: 10/04/16 16:10 Dose: Not Given Carbidopa/Levodopa (Rytary Er 48.75 Mg-195 Mg Cap) 1 cap PO TID@0500,1300,2100 [facility] Last Admin: 10/04/16 13:26 Dose: Not Given Fluocinonide (Lidex 0.05% Oint) 1 applic TOP BID [facility] Last Admin: 10/04/16 16:10 Dose: Not Given Levofloxacin/Dextrose (Levaquin 500mg) 100 mls @ 100 mls/hr IVPB DAILY [facility] Last Admin: 10/04/16 15:02 Dose: 100 mls/hr Dextrose/Sodium Chloride (Dextrose 5%/0.45% Ns 1000 Ml) 1,000 mls @ 50 mls/hr IV .Q20H [facility] Stop: 10/05/16 13:46 Last Admin: 10/04/16 14:45 Dose: 50 mls/hr Magnesium Hydroxide (Milk Of Magnesia) 30 ml PO DAILY PRN PRN Reason: Constipation Last Admin: 09/30/16 11:47 Dose: 30 ml Midodrine (Proamatine) 10 mg PO TID [facility] Last Admin: 10/04/16 16:10 Dose: Not Given Pantoprazole Sodium (Protonix Ec Tab) 40 mg PO DAILY [facility] Last Admin: 10/04/16 09:35 Dose: Not Given Quetiapine Fumarate (Seroquel) 50 mg PO HS PRN PRN Reason: Agitation Last Admin: 09/23/16 08:36 Dose: 50 mg - Labs Labs: 10/04/16 10:37 10/04/16 10:37 - Respiratory Exam Respiratory Exam: NORMAL BREATHING PATTERN - Cardiovascular Exam Cardiovascular Exam: REGULAR RHYTHM - GI/Abdominal Exam GI & Abdominal Exam: Normal Bowel Sounds Assessment and Plan - Assessment and Plan (Free Text) Assessment: Cough?? CXR ?? ABX IVF Cultures Pulmonary MSA Parkinsons DX Lilia Drager PT Rytary 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 awaiting transfer to [place] Pt is competent but financially vulnerable Court and Social service involved Pt is [place] R shoulder pain Dec ROM xrays subluxation Ultram PRN PT Atelectasis Afebrile Gastroentritis? 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
[2016-10-05] MEDS: CARBIDOPA PO SCH ×3 (05:01→20:34)
[2016-10-05] MEDS: LEVODOPA PO SCH ×3 (05:01→20:34)
[2016-10-05] MEDS: Bethanechol 50 MG TAB PO SCH ×3 (08:51→16:14)
[2016-10-05] MEDS: Pantoprazole 40 mg EC Tab PO SCH (08:52)
[2016-10-05] MEDS: Dextrose 5%/0.45% NS 1,000 ML IV SCH (08:54)
--- NOTE | 2016-10-05 10:54 | CARD ---
APPROVED REPORT EKG Measurement Heart [id number] <Conclusion> Atrial fibrillation Abnormal ECG Please repeat to confirm.
[2016-10-05 11:16] LABS: ABG ALLEN TEST YES; ARTERIAL BLOOD GAS HCO3 27.2 mmol/L (21-28); ARTERIAL BLOOD GAS HEMOGLOBIN 13.3 g/dL (11.7-17.4); ARTERIAL BLOOD GAS O2 CAPACITY 18.3 mL/dL (16-24); ARTERIAL BLOOD GAS O2 SAT 98.5 % (95-98); ARTERIAL BLOOD GAS PCO2 31 mm/Hg (35-45); ARTERIAL BLOOD GAS PH 7.52 (7.35-7.45); ARTERIAL BLOOD GAS PO2 95 mm/Hg (80-100); ARTERIAL BLOOD GAS TCO2 26.3 mmol/L (22-28)
--- NOTE | 2016-10-05 12:27 | CP.PCM.CON ---
History of Present Illness - History of Present Illness History of Present Illness: Asked to evaluate this 86-year-old male who was last seen by me approximately 2 months prior. He has had a long hospitalization and is awaiting placement at the present time. There had been a change in mental status without fever or leukocytosis, but the patient did manifest a dry cough. No hypoxia or dyspnea. A chest x-ray was requested which showed some increased bronchovascular markings and haziness at the right lung base suggesting a possible early infiltrate. Small areas of atelectasis were noted, more so the right than the left. He has been started on a quinolone antibiotic and has shown some improvement in his mental status in the past 24 hours. At this time he is answering questions but does not follow specific commands. Past Patient History - Tetanus Immunizations Tetanus Immunization: Unknown - Past Medical History & Family History Past Medical History?: Yes - Past Social History Smoking Status: Never Smoked - CARDIAC Hx Cardiac Disorders: No Hx Congestive Heart Failure: No Hx Hypercholesterolemia: No Hx Hypertension: No - PULMONARY Hx Chronic Obstructive Pulmonary Disease (COPD): No - NEUROLOGICAL HX Cerebrovascular Accident: No - HEENT Hx HEENT Problems: Yes Hx Cataracts: No Hx Deafness: No Hx Difficulty Chewing: No Hx Epistaxis: No Hx Glaucoma: Yes Hx Macular Degeneration: No - RENAL Hx Renal Failure: No - ENDOCRINE/METABOLIC Hx Diabetes Mellitus Type 1: No Hx Diabetes Mellitus Type 2: No Hx Hypothyroidism: No - HEMATOLOGICAL/ONCOLOGICAL Hx Anemia: No Hx Human Immunodeficiency Virus (HIV): No Hx Sickle Cell Disease: No - INTEGUMENTARY Hx Dermatological Problems: No Hx Basil Cell: No Hx Silva: No Hx Cellulitis: Yes (right leg) Hx Eczema: No Hx Melanoma: No Hx Psoriasis: No Hx Squamous Cell: No - MUSCULOSKELETAL/RHEUMATOLOGICAL Hx Arthritis: No Hx Rheumatoid Arthritis: No - GASTROINTESTINAL Hx Crohn's Disease: No Hx Diverticulitis: No Hx Gall Bladder Disease: No Hx Gastritis: No Hx Pancreatitis: No - GENITOURINARY/GYNECOLOGICAL Hx Sexually Transmitted Disorders: No - PSYCHIATRIC Hx Anxiety: Yes Hx Depression: Yes - SURGICAL HISTORY Hx Appendectomy: Yes Hx Carotid Endarterectomy: No Hx Cholecystectomy: No Hx Coronary Artery Bypass Graft: No Hx Coronary Stent: No Hx Tonsillectomy: Yes - ANESTHESIA Hx Anesthesia: Yes Hx Anesthesia Reactions: No Hx Malignant Hyperthermia: No Meds Allergies/Adverse Reactions: Allergies Allergy/AdvReac Type Severity Reaction Status Date / Time Penicillins Allergy Hives Verified 08/01/15 06:34 - Medications Medications: Current Medications Acetaminophen (Tylenol 325mg Tab) 650 mg PO Q6 PRN PRN Reason: Pain, Mild (1-3) Last Admin: 09/27/16 12:50 Dose: 650 mg Albuterol/Ipratropium (Duoneb 3 Mg/0.5 Mg (3 Ml) Ud) 3 ml INH RQ4 PRN PRN Reason: Shortness of Breath Baclofen (Lioresal) 10 mg PO TID [facility] Last Admin: 10/05/16 12:21 Dose: 10 mg Benzocaine/Menthol (Cepacol Sore Throat) 1 morro PO Q3 PRN PRN Reason: Sore Throat Last Admin: 09/30/16 08:55 Dose: 1 morro Bethanechol Chloride (Urecholine) 50 mg PO TID [facility] Last Admin: 10/05/16 12:21 Dose: 50 mg Carbidopa/Levodopa (Rytary Er 48.75 Mg-195 Mg Cap) 1 cap PO TID@0500,1300,2100 [facility] Last Admin: 10/05/16 12:21 Dose: 1 cap Fluocinonide (Lidex 0.05% Oint) 1 applic TOP BID [facility] Last Admin: 10/05/16 08:52 Dose: 1 appl Levofloxacin/Dextrose (Levaquin 500mg) 100 mls @ 100 mls/hr IVPB DAILY [facility] Last Admin: 10/05/16 08:51 Dose: 100 mls/hr Dextrose/Sodium Chloride (Dextrose 5%/0.45% Ns 1000 Ml) 1,000 mls @ 50 mls/hr IV .Q20H [facility] Stop: 10/05/16 13:46 Last Admin: 10/05/16 08:54 Dose: 50 mls/hr Magnesium Hydroxide (Milk Of Magnesia) 30 ml PO DAILY PRN PRN Reason: Constipation Last Admin: 09/30/16 11:47 Dose: 30 ml Midodrine (Proamatine) 10 mg PO TID [facility] Last Admin: 10/05/16 12:21 Dose: 10 mg Pantoprazole Sodium (Protonix Ec Tab) 40 mg PO DAILY [facility] Last Admin: 10/05/16 08:52 Dose: 40 mg Quetiapine Fumarate (Seroquel) 50 mg PO HS PRN PRN Reason: Agitation Last Admin: 09/23/16 08:36 Dose: 50 mg Physical Exam - Additional Findings Additional findings: There is no dullness on percussion of the anterior chest wall. No subcutaneous emphysema is palpated. Breath sounds are diminished but present bilaterally. No areas of bronchial breathing or wheezing. Scattered dry rales are heard posteriorly in the dependent zones. The neck is supple and trachea is midline. The pharynx is pink and mucous membranes are moist. Nasal passages are patent bilaterally. There is no cyanosis. Results - Vital Signs Recent Vital Signs: Last Vital Signs Temp 97.9 F 10/05/16 08:38 Pulse 81 10/05/16 08:38 Resp 18 10/05/16 09:30 BP 119/61 10/05/16 08:38 Pulse Ox 98 10/05/16 09:30 - Labs Result Diagrams: 10/04/16 10:37 10/04/16 10:37 Labs: Laboratory Results - last 24 hr 10/05/16 11:10 pCO2 31 L pO2 95 HCO3 27.2 ABG pH 7.52 H ABG Total CO2 26.3 ABG O2 Saturation 98.5 H ABG O2 Content 18.0 ABG Base Excess 3.0 ABG Hemoglobin 13.3 ABG Carboxyhemoglobin 1.9 H POC ABG HHb (Measured) 1.5 ABG Methemoglobin 1.1 ABG O2 Capacity 18.3 Jorge Test Yes A-a O2 Difference 16.0 Hgb O2 Saturation 95.6 FiO2 21.0 Assessment & Plan (1) Pneumonia Status: Resolved (2) Opacity of lung on imaging study Status: Chronic Priority: Medium - Assessment and Plan (Free Text) Assessment: Review of the patient's blood gas shows that there is some mild hyperventilation with good oxygenation. The patient has been started on antibiotic therapy and there has been some clinical improvement. Despite the lack of fever and leukocytosis I would continue the same based on the positive outcome thus far. It surely is a possibility that there is an early infiltrate developing in the right lower lobe. I would consider completing a 10 day course of antibiotics which may be changed to oral at this time. Thank you - Date & Time Date: 10/05/16 Time: 12:33
[2016-10-06] MEDS: LEVODOPA PO SCH ×4 (05:49→21:23)
[2016-10-06] MEDS: CARBIDOPA PO SCH ×4 (05:49→21:23)
[2016-10-06] MEDS: Bethanechol 50 MG TAB PO SCH ×3 (10:08→16:29)
[2016-10-06] MEDS: Pantoprazole 40 mg EC Tab PO SCH (10:09)
--- NOTE | 2016-10-06 16:05 | CP.PCM.PN ---
Subjective - Date & Time of Evaluation Date of Evaluation: 10/06/16 Time of Evaluation: 22:22 - Subjective Subjective: Above noted Responsive to questions Objective - Vital Signs/Intake and Output Vital Signs (last 24 hours): Temp Pulse Resp BP Pulse Ox 98.9 F 68 20 138/82 91 L 10/06/16 08:41 10/06/16 08:41 10/06/16 08:41 10/06/16 08:41 10/06/16 08:41 - Medications Medications: Current Medications Acetaminophen (Tylenol 325mg Tab) 650 mg PO Q6 PRN PRN Reason: Pain, Mild (1-3) Last Admin: 09/27/16 12:50 Dose: 650 mg Albuterol/Ipratropium (Duoneb 3 Mg/0.5 Mg (3 Ml) Ud) 3 ml INH RQ4 PRN PRN Reason: Shortness of Breath Baclofen (Lioresal) 10 mg PO TID [facility] Last Admin: 10/06/16 13:20 Dose: 10 mg Benzocaine/Menthol (Cepacol Sore Throat) 1 morro PO Q3 PRN PRN Reason: Sore Throat Last Admin: 09/30/16 08:55 Dose: 1 morro Bethanechol Chloride (Urecholine) 50 mg PO TID [facility] Last Admin: 10/06/16 13:20 Dose: 50 mg Carbidopa/Levodopa (Rytary Er 48.75 Mg-195 Mg Cap) 1 cap PO TID@0500,1300,2100 [facility] Last Admin: 10/06/16 13:20 Dose: 1 cap Fluocinonide (Lidex 0.05% Oint) 1 applic TOP BID [facility] Last Admin: 10/06/16 10:09 Dose: 1 appl Levofloxacin/Dextrose (Levaquin 500mg) 100 mls @ 100 mls/hr IVPB DAILY [facility] Last Admin: 10/06/16 10:07 Dose: 100 mls/hr Magnesium Hydroxide (Milk Of Magnesia) 30 ml PO DAILY PRN PRN Reason: Constipation Last Admin: 09/30/16 11:47 Dose: 30 ml Midodrine (Proamatine) 10 mg PO TID [facility] Last Admin: 10/06/16 13:21 Dose: 10 mg Pantoprazole Sodium (Protonix Ec Tab) 40 mg PO DAILY [facility] Last Admin: 10/06/16 10:09 Dose: 40 mg Quetiapine Fumarate (Seroquel) 50 mg PO HS PRN PRN Reason: Agitation Last Admin: 09/23/16 08:36 Dose: 50 mg - Labs Labs: 10/04/16 10:37 10/04/16 10:37 - Respiratory Exam Respiratory Exam: NORMAL BREATHING PATTERN - Cardiovascular Exam Cardiovascular Exam: REGULAR RHYTHM - GI/Abdominal Exam GI & Abdominal Exam: Normal Bowel Sounds Assessment and Plan - Assessment and Plan (Free Text) Assessment: Pneumonia?? CXR ?? early infiltrate ABX IVF Cultures Pulmonary note appreciated MSA Parkinsons DX Lilia Vieira PT Rytary 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 awaiting transfer to [place] Pt is competent but financially vulnerable Court and Social service involved Pt is [place] R shoulder pain Dec ROM xrays subluxation Ultram PRN PT Atelectasis Afebrile Gastroentritis? 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
[2016-10-07] MEDS: CARBIDOPA PO SCH ×4 (05:13→21:57)
[2016-10-07] MEDS: LEVODOPA PO SCH ×4 (05:13→21:57)
[2016-10-07] MEDS: Bethanechol 50 MG TAB PO SCH ×4 (09:03→16:24)
[2016-10-07] MEDS: Pantoprazole 40 mg EC Tab PO SCH ×2 (09:03→12:49)
--- NOTE | 2016-10-07 20:49 | CP.PCM.PN ---
Subjective - Date & Time of Evaluation Date of Evaluation: 10/07/16 Time of Evaluation: 22:22 - Subjective Subjective: Improved Objective - Vital Signs/Intake and Output Vital Signs (last 24 hours): Temp Pulse Resp BP Pulse Ox 98 F 83 20 128/62 96 10/07/16 17:27 10/07/16 17:27 10/07/16 17:27 10/07/16 17:27 10/07/16 17:27 - Medications Medications: Current Medications Acetaminophen (Tylenol 325mg Tab) 650 mg PO Q6 PRN PRN Reason: Pain, Mild (1-3) Last Admin: 09/27/16 12:50 Dose: 650 mg Albuterol/Ipratropium (Duoneb 3 Mg/0.5 Mg (3 Ml) Ud) 3 ml INH RQ4 PRN PRN Reason: Shortness of Breath Baclofen (Lioresal) 10 mg PO TID [facility] Last Admin: 10/07/16 16:23 Dose: 10 mg Benzocaine/Menthol (Cepacol Sore Throat) 1 morro PO Q3 PRN PRN Reason: Sore Throat Last Admin: 09/30/16 08:55 Dose: 1 morro Bethanechol Chloride (Urecholine) 50 mg PO TID [facility] Last Admin: 10/07/16 16:24 Dose: 50 mg Carbidopa/Levodopa (Rytary Er 48.75 Mg-195 Mg Cap) 1 cap PO TID@0500,1300,2100 [facility] Last Admin: 10/07/16 12:49 Dose: 1 cap Fluocinonide (Lidex 0.05% Oint) 1 applic TOP BID [facility] Last Admin: 10/07/16 16:23 Dose: 1 appl Levofloxacin/Dextrose (Levaquin 500mg) 100 mls @ 100 mls/hr IVPB DAILY [facility] Last Admin: 10/07/16 09:00 Dose: 100 mls/hr Magnesium Hydroxide (Milk Of Magnesia) 30 ml PO DAILY PRN PRN Reason: Constipation Last Admin: 09/30/16 11:47 Dose: 30 ml Midodrine (Proamatine) 10 mg PO TID [facility] Last Admin: 10/07/16 16:24 Dose: 10 mg Pantoprazole Sodium (Protonix Ec Tab) 40 mg PO DAILY [facility] Last Admin: 10/07/16 12:49 Dose: 40 mg Quetiapine Fumarate (Seroquel) 50 mg PO HS PRN PRN Reason: Agitation Last Admin: 09/23/16 08:36 Dose: 50 mg - Labs Labs: 10/04/16 10:37 10/04/16 10:37 - Respiratory Exam Respiratory Exam: NORMAL BREATHING PATTERN - Cardiovascular Exam Cardiovascular Exam: Tachycardia, REGULAR RHYTHM - GI/Abdominal Exam GI & Abdominal Exam: Normal Bowel Sounds Assessment and Plan - Assessment and Plan (Free Text) Assessment: Pneumonia?? CXR ?? early infiltrate ABX IVF Cultures Pulmonary note appreciated MSA Parkinsons DX Lilia Vieira PT Rytary 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 awaiting transfer [place] Pt is competent but financially vulnerable Court and Social service involved Pt is [place] R shoulder pain Dec ROM xrays subluxation Ultram PRN PT Atelectasis Afebrile Gastroentritis? 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
[2016-10-08] MEDS: LEVODOPA PO SCH ×3 (04:43→22:01)
[2016-10-08] MEDS: CARBIDOPA PO SCH ×3 (04:43→22:01)
[2016-10-08 07:02] LABS: HEMOGLOBIN 13.2 g/dL (12.0-18.0); MEAN CELL VOLUME 93.8 fl (80.0-94.0); MEAN CORPUSCULAR HEMOGLOBIN 31.4 pg (27.0-31.0); MEAN CORPUSCULAR HGB CONC 33.5 g/dL (33.0-37.0); RBC 4.2 Mil/uL (4.40-5.90); RED CELL DISTRIBUTION WIDTH 14.2 % (11.5-14.5); WHITE BLOOD COUNT 8.1 K/uL (4.8-10.8)
[2016-10-08 07:18] LABS: BLOOD UREA NITROGEN 33 mg/dl (9-20); CALCIUM 9.4 mg/dL (8.4-10.2); GFR AFRICAN-AMERICAN > 60; GFR NON-AFRICAN AMERICAN > 60
[2016-10-08] MEDS: Pantoprazole 40 mg EC Tab PO SCH (09:30)
[2016-10-08] MEDS: Bethanechol 50 MG TAB PO SCH ×3 (09:30→17:50)
--- NOTE | 2016-10-08 11:25 | CP.PCM.PN ---
Subjective - Date & Time of Evaluation Date of Evaluation: 10/08/16 Time of Evaluation: 11:23 - Subjective Subjective: Clinically back at baseline. Vital signs are stable. Levaquin changed to PO. Would complete 5 days more. CXR w/o any areas of consolidation. Objective - Vital Signs/Intake and Output Vital Signs (last 24 hours): Temp Pulse Resp BP Pulse Ox 98.2 F 64 18 133/77 97 10/08/16 08:19 10/08/16 08:19 10/08/16 08:19 10/08/16 08:19 10/08/16 08:19 - Medications Medications: Current Medications Acetaminophen (Tylenol 325mg Tab) 650 mg PO Q6 PRN PRN Reason: Pain, Mild (1-3) Last Admin: 09/27/16 12:50 Dose: 650 mg Albuterol/Ipratropium (Duoneb 3 Mg/0.5 Mg (3 Ml) Ud) 3 ml INH RQ4 PRN PRN Reason: Shortness of Breath Baclofen (Lioresal) 10 mg PO TID [facility] Last Admin: 10/08/16 09:28 Dose: 10 mg Benzocaine/Menthol (Cepacol Sore Throat) 1 morro PO Q3 PRN PRN Reason: Sore Throat Last Admin: 09/30/16 08:55 Dose: 1 morro Bethanechol Chloride (Urecholine) 50 mg PO TID [facility] Last Admin: 10/08/16 09:30 Dose: 50 mg Carbidopa/Levodopa (Rytary Er 48.75 Mg-195 Mg Cap) 1 cap PO TID@0500,1300,2100 [facility] Last Admin: 10/08/16 04:43 Dose: 1 cap Fluocinonide (Lidex 0.05% Oint) 1 applic TOP BID [facility] Last Admin: 10/08/16 09:28 Dose: 1 appl Levofloxacin (Levaquin) 500 mg PO DAILY [facility] Magnesium Hydroxide (Milk Of Magnesia) 30 ml PO DAILY PRN PRN Reason: Constipation Last Admin: 09/30/16 11:47 Dose: 30 ml Midodrine (Proamatine) 10 mg PO TID [facility] Last Admin: 10/08/16 09:29 Dose: 10 mg Pantoprazole Sodium (Protonix Ec Tab) 40 mg PO DAILY [facility] Last Admin: 10/08/16 09:30 Dose: 40 mg Quetiapine Fumarate (Seroquel) 50 mg PO HS PRN PRN Reason: Agitation Last Admin: 09/23/16 08:36 Dose: 50 mg - Labs Labs: 10/08/16 05:50 10/08/16 05:50 Assessment and Plan (1) Pneumonia Assessment & Plan: Early infiltrates treated with quinolone antibiotic and resolved. Status: Resolved (2) Opacity of lung on imaging study Status: Chronic
--- NOTE | 2016-10-08 12:30 | CP.PCM.PN ---
Subjective - Date & Time of Evaluation Date of Evaluation: 10/08/16 Time of Evaluation: 12:25 - Subjective Subjective: psychiatry follow up met with pt. reviewed chart. spoke to rn. pt is sleepy currently. answers to name. acknowledges he cannot care for his own needs. states he is too tired to talk. pt recently dx with pneumonia, started on antibiotics. mse: somnolent, oriented to self, circumstances. mood is "tired" constricted affect. unable to assess memory secondary to sedation. denies suicidal or homicidal thoughts. no psychosis. fair insight. questionable judgment. assessment: while pt has an understanding of his medical issues, at this time it appears that mr. heath, cannot make medical decisions completely by himself without assistance. Objective - Vital Signs/Intake and Output Vital Signs (last 24 hours): Temp Pulse Resp BP Pulse Ox 98.2 F 64 18 133/77 97 10/08/16 08:19 10/08/16 08:19 10/08/16 08:19 10/08/16 08:19 10/08/16 08:19 - Medications Medications: Current Medications Acetaminophen (Tylenol 325mg Tab) 650 mg PO Q6 PRN PRN Reason: Pain, Mild (1-3) Last Admin: 09/27/16 12:50 Dose: 650 mg Albuterol/Ipratropium (Duoneb 3 Mg/0.5 Mg (3 Ml) Ud) 3 ml INH RQ4 PRN PRN Reason: Shortness of Breath Baclofen (Lioresal) [address] [facility] Last Admin: 10/08/16 09:28 Dose: 10 mg Benzocaine/Menthol (Cepacol Sore Throat) 1 morro PO Q3 PRN PRN Reason: Sore Throat Last Admin: 09/30/16 08:55 Dose: 1 morro Bethanechol Chloride (Urecholine) [address] [facility] Last Admin: 10/08/16 09:30 Dose: 50 mg Carbidopa/Levodopa (Rytary Er 48.75 Mg-195 Mg Cap) 1 cap PO TID@0500,1300,2100 [facility] Last Admin: 10/08/16 04:43 Dose: 1 cap Fluocinonide (Lidex 0.05% Oint) [address] [facility] Last Admin: 10/08/16 09:28 Dose: 1 appl Levofloxacin (Levaquin) [address] [facility] Magnesium Hydroxide (Milk Of Magnesia) 30 ml PO DAILY PRN PRN Reason: Constipation Last Admin: 09/30/16 11:47 Dose: 30 ml Midodrine (Proamatine) [address] [facility] Last Admin: 10/08/16 09:29 Dose: 10 mg Pantoprazole Sodium (Protonix Ec Tab) [address] [facility] Last Admin: 10/08/16 09:30 Dose: 40 mg Quetiapine Fumarate (Seroquel) 50 mg PO HS PRN PRN Reason: Agitation Last Admin: 09/23/16 08:36 Dose: 50 mg - Labs Labs: 10/08/16 05:50 10/08/16 05:50
--- NOTE | 2016-10-08 15:50 | RAD ---
HISTORY: Follow-up.Technique: Single view portable semi erect @ 09:30 COMPARISON: 10/04/2016. FINDINGS: LUNGS: Stable atelectatic changes at the lung bases. PLEURA: No significant pleural effusion identified, no pneumothorax apparent. CARDIOVASCULAR: Cardiomegaly. No evidence of acute, significant cardiovascular disease. OSSEOUS STRUCTURES: No significant abnormalities. VISUALIZED UPPER ABDOMEN: Normal. OTHER FINDINGS: None. IMPRESSION: No significant interval change compared to the prior examination(s).
--- NOTE | 2016-10-08 20:39 | CP.PCM.PN ---
Subjective - Date & Time of Evaluation Date of Evaluation: 10/08/16 Time of Evaluation: 22:22 - Subjective Subjective: Above noted Labs okay Objective - Vital Signs/Intake and Output Vital Signs (last 24 hours): Temp Pulse Resp BP Pulse Ox 97.5 F L 67 20 143/81 99 10/08/16 20:19 10/08/16 20:19 10/08/16 20:19 10/08/16 20:19 10/08/16 20:19 - Medications Medications: Current Medications Acetaminophen (Tylenol 325mg Tab) 650 mg PO Q6 PRN PRN Reason: Pain, Mild (1-3) Last Admin: 09/27/16 12:50 Dose: 650 mg Albuterol/Ipratropium (Duoneb 3 Mg/0.5 Mg (3 Ml) Ud) 3 ml INH RQ4 PRN PRN Reason: Shortness of Breath Baclofen (Lioresal) 10 mg PO TID [facility] Last Admin: 10/08/16 17:50 Dose: 10 mg Benzocaine/Menthol (Cepacol Sore Throat) 1 morro PO Q3 PRN PRN Reason: Sore Throat Last Admin: 09/30/16 08:55 Dose: 1 morro Bethanechol Chloride (Urecholine) 50 mg PO TID [facility] Last Admin: 10/08/16 17:50 Dose: 50 mg Carbidopa/Levodopa (Rytary Er 48.75 Mg-195 Mg Cap) 1 cap PO TID@0500,1300,2100 [facility] Last Admin: 10/08/16 12:51 Dose: 1 cap Fluocinonide (Lidex 0.05% Oint) 1 applic TOP BID [facility] Last Admin: 10/08/16 17:50 Dose: 1 appl Levofloxacin (Levaquin) 500 mg PO DAILY [facility] Magnesium Hydroxide (Milk Of Magnesia) 30 ml PO DAILY PRN PRN Reason: Constipation Last Admin: 09/30/16 11:47 Dose: 30 ml Midodrine (Proamatine) 10 mg PO TID [facility] Last Admin: 10/08/16 17:50 Dose: 10 mg Pantoprazole Sodium (Protonix Ec Tab) 40 mg PO DAILY [facility] Last Admin: 10/08/16 09:30 Dose: 40 mg Quetiapine Fumarate (Seroquel) 50 mg PO HS PRN PRN Reason: Agitation Last Admin: 09/23/16 08:36 Dose: 50 mg - Labs Labs: 10/08/16 05:50 10/08/16 05:50 - Respiratory Exam Respiratory Exam: NORMAL BREATHING PATTERN - Cardiovascular Exam Cardiovascular Exam: REGULAR RHYTHM - GI/Abdominal Exam GI & Abdominal Exam: Normal Bowel Sounds Assessment and Plan - Assessment and Plan (Free Text) Assessment: Pneumonia resolving CXR imroved BUN increased ABX IVF Cultures negative Pulmonary note appreciated MSA Parkinsons DX Lilia Wrayer PT Rytary 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 awaiting transfer to [place] Pt is competent but financially vulnerable Court and Social service involved Pt is [place] WW[employer] R shoulder pain Dec ROM xrays subluxation Ultram PRN PT Atelectasis Afebrile Gastroentritis? 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
[2016-10-08] MEDS: Dextrose 5%/0.45% NS 1,000 ML IV SCH (22:02)
[2016-10-09] MEDS: LEVODOPA PO SCH ×3 (05:12→22:00)
[2016-10-09] MEDS: CARBIDOPA PO SCH ×3 (05:12→22:00)
[2016-10-09] MEDS: levoFLOXacin 500 MG TAB PO SCH (08:22)
[2016-10-09] MEDS: Pantoprazole 40 mg EC Tab PO SCH (08:23)
[2016-10-09] MEDS: Bethanechol 50 MG TAB PO SCH ×3 (08:24→17:15)
[2016-10-09] MEDS: Dextrose 5%/0.45% NS 1,000 ML IV SCH ×2 (14:53→21:00)
--- NOTE | 2016-10-09 20:16 | CP.PCM.PN ---
Subjective - Date & Time of Evaluation Date of Evaluation: 10/09/16 Time of Evaluation: 22:22 - Subjective Subjective: Still lethargic Objective - Vital Signs/Intake and Output Vital Signs (last 24 hours): Temp Pulse Resp BP Pulse Ox 97.7 F 62 20 113/63 98 10/09/16 17:00 10/09/16 17:00 10/09/16 16:39 10/09/16 17:00 10/09/16 17:00 - Medications Medications: Current Medications Acetaminophen (Tylenol 325mg Tab) 650 mg PO Q6 PRN PRN Reason: Pain, Mild (1-3) Last Admin: 09/27/16 12:50 Dose: 650 mg Albuterol/Ipratropium (Duoneb 3 Mg/0.5 Mg (3 Ml) Ud) 3 ml INH RQ4 PRN PRN Reason: Shortness of Breath Baclofen (Lioresal) 10 mg PO TID [facility] Last Admin: 10/09/16 17:14 Dose: 10 mg Benzocaine/Menthol (Cepacol Sore Throat) 1 morro PO Q3 PRN PRN Reason: Sore Throat Last Admin: 09/30/16 08:55 Dose: 1 morro Bethanechol Chloride (Urecholine) 50 mg PO TID [facility] Last Admin: 10/09/16 17:15 Dose: 50 mg Carbidopa/Levodopa (Rytary Er 48.75 Mg-195 Mg Cap) 1 cap PO TID@0500,1300,2100 [facility] Last Admin: 10/09/16 12:45 Dose: 1 cap Fluocinonide (Lidex 0.05% Oint) 1 applic TOP BID [facility] Last Admin: 10/09/16 17:14 Dose: 1 appl Dextrose/Sodium Chloride (Dextrose 5%/0.45% Ns 1000 Ml) 1,000 mls @ 60 mls/hr IV .[id number] [facility] Stop: 10/09/16 20:46 Last Admin: 10/09/16 14:53 Dose: 60 mls/hr Levofloxacin (Levaquin) 500 mg PO DAILY [facility] Last Admin: 10/09/16 08:22 Dose: 500 mg Magnesium Hydroxide (Milk Of Magnesia) 30 ml PO DAILY PRN PRN Reason: Constipation Last Admin: 09/30/16 11:47 Dose: 30 ml Midodrine (Proamatine) 10 mg PO TID [facility] Last Admin: 10/09/16 17:14 Dose: 10 mg Pantoprazole Sodium (Protonix Ec Tab) 40 mg PO DAILY [facility] Last Admin: 10/09/16 08:23 Dose: 40 mg Quetiapine Fumarate (Seroquel) 50 mg PO HS PRN PRN Reason: Agitation Last Admin: 09/23/16 08:36 Dose: 50 mg - Labs Labs: 10/08/16 05:50 10/08/16 05:50 - Respiratory Exam Respiratory Exam: NORMAL BREATHING PATTERN - Cardiovascular Exam Cardiovascular Exam: REGULAR RHYTHM - GI/Abdominal Exam GI & Abdominal Exam: Normal Bowel Sounds Assessment and Plan - Assessment and Plan (Free Text) Assessment: Pneumonia resolving Lethargy?? CXR imroved BUN increased ABX IVF Cultures negative Pulmonary note appreciated Repeat labs d/c Baclofen Reconsult Neuro MSA Parkinsons DX Lilia Vieira PT Rytary 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 awaiting transfer to [place] Pt is competent but financially vulnerable Court and Social service involved Pt is [place] WWII R shoulder pain Dec ROM xrays subluxation Ultram PRN PT Atelectasis Afebrile Gastroentritis? 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
[2016-10-10] MEDS: LEVODOPA PO SCH ×3 (05:30→21:10)
[2016-10-10] MEDS: CARBIDOPA PO SCH ×3 (05:30→21:10)
[2016-10-10] MEDS: Dextrose 5%/0.45% NS 1,000 ML IV SCH ×2 (06:11→09:40)
[2016-10-10 08:04] LABS: HEMOGLOBIN 12.6 g/dL (12.0-18.0); MEAN CELL VOLUME 93.3 fl (80.0-94.0); MEAN CORPUSCULAR HEMOGLOBIN 30.7 pg (27.0-31.0); MEAN CORPUSCULAR HGB CONC 32.9 g/dL (33.0-37.0); RBC 4.11 Mil/uL (4.40-5.90); RED CELL DISTRIBUTION WIDTH 13.9 % (11.5-14.5); WHITE BLOOD COUNT 7.7 K/uL (4.8-10.8)
[2016-10-10 08:09] LABS: ALB/GLOB RATIO 1.1 (1.0-2.1); ALBUMIN 3.5 g/dL (3.5-5.0); ALT/SGPT 16 U/L (21-72); AST/SGOT 23 U/L (17-59); BLOOD UREA NITROGEN 25 mg/dl (9-20); CALCIUM 8.9 mg/dL (8.4-10.2); GFR AFRICAN-AMERICAN > 60; GFR NON-AFRICAN AMERICAN > 60
[2016-10-10] MEDS: Pantoprazole 40 mg EC Tab PO SCH (09:38)
[2016-10-10] MEDS: levoFLOXacin 500 MG TAB PO SCH (09:38)
[2016-10-10] MEDS: Bethanechol 50 MG TAB PO SCH ×3 (09:38→17:20)
--- NOTE | 2016-10-10 20:53 | CP.PCM.PN ---
Subjective - Date & Time of Evaluation Date of Evaluation: 10/10/16 Time of Evaluation: 22:22 - Subjective Subjective: No change in status Objective - Vital Signs/Intake and Output Vital Signs (last 24 hours): Temp Pulse Resp BP Pulse Ox 98.7 F 62 20 145/78 96 10/10/16 16:49 10/10/16 16:49 10/10/16 16:49 10/10/16 16:49 10/10/16 07:56 - Medications Medications: Current Medications Acetaminophen (Tylenol 325mg Tab) 650 mg PO Q6 PRN PRN Reason: Pain, Mild (1-3) Last Admin: 09/27/16 12:50 Dose: 650 mg Albuterol/Ipratropium (Duoneb 3 Mg/0.5 Mg (3 Ml) Ud) 3 ml INH RQ4 PRN PRN Reason: Shortness of Breath Benzocaine/Menthol (Cepacol Sore Throat) 1 morro PO Q3 PRN PRN Reason: Sore Throat Last Admin: 09/30/16 08:55 Dose: 1 morro Bethanechol Chloride (Urecholine) 50 mg PO TID [facility] Last Admin: 10/10/16 17:20 Dose: 50 mg Carbidopa/Levodopa (Rytary Er 48.75 Mg-195 Mg Cap) 1 cap PO TID@0500,1300,2100 [facility] Last Admin: 10/10/16 13:00 Dose: 1 cap Fluocinonide (Lidex 0.05% Oint) 1 applic TOP BID [facility] Last Admin: 10/10/16 17:20 Dose: 1 appl Dextrose/Sodium Chloride (Dextrose 5%/0.45% Ns 1000 Ml) 1,000 mls @ 80 mls/hr IV .[id number] [facility] Stop: 10/10/16 21:01 Last Admin: 10/10/16 09:40 Dose: 80 mls/hr Levofloxacin (Levaquin) 500 mg PO DAILY [facility] Last Admin: 10/10/16 09:38 Dose: 500 mg Magnesium Hydroxide (Milk Of Magnesia) 30 ml PO DAILY PRN PRN Reason: Constipation Last Admin: 09/30/16 11:47 Dose: 30 ml Midodrine (Proamatine) 10 mg PO TID [facility] Last Admin: 10/10/16 17:20 Dose: 10 mg Pantoprazole Sodium (Protonix Ec Tab) 40 mg PO DAILY [facility] Last Admin: 10/10/16 09:38 Dose: 40 mg Quetiapine Fumarate (Seroquel) 50 mg PO HS PRN PRN Reason: Agitation Last Admin: 10/10/16 09:38 Dose: 50 mg - Labs Labs: 10/10/16 06:25 10/10/16 06:25 - Respiratory Exam Respiratory Exam: NORMAL BREATHING PATTERN - Cardiovascular Exam Cardiovascular Exam: REGULAR RHYTHM - GI/Abdominal Exam GI & Abdominal Exam: Normal Bowel Sounds Assessment and Plan - Assessment and Plan (Free Text) Assessment: Pneumonia resolving Lethargy?? CXR imroved BUN increased ABX IVF Cultures negative Pulmonary note appreciated Repeat labs d/c Baclofen Reconsult Neuro MSA Parkinsons DX Lilia Wrayer PT Rytary 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 awaiting transfer to [place] Pt is competent but financially vulnerable Court and Social service involved Pt is [place] WW[place] R shoulder pain Dec ROM xrays subluxation Ultram PRN PT Atelectasis Afebrile Gastroentritis? 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
[2016-10-11] MEDS: CARBIDOPA PO SCH ×3 (05:43→21:01)
[2016-10-11] MEDS: LEVODOPA PO SCH ×3 (05:43→21:01)
--- NOTE | 2016-10-11 08:52 | CP.PCM.CON ---
History of Present Illness - History of Present Illness History of Present Illness: Pt seen by the conventional underwriter today for reevaluation of his cognitive status. Pt known to the conventional underwriter for years and was seen per consultation for adjustment issues related to his Parkinson's. On this evaluation, pt was not oriented to year, not month, not day, not date. He spoke of being in the hospital for 14 months due to "being sick." Pt reported living with his niece prior and stated that he saw her one month ago. Pt was unable to explain why he had been in the hospital for such an extended stay. He was unable to describe recent events, recent circumstances and problematic family dynamics. Patient was able to describe his educational history, was unable to report a work history. He recognized the conventional underwriter yet was unable to report past contact. On this evaluation , thinking and cognitive processing was diminished from previous intervention/ interviews. Pt evidenced greater cognitive decline with an inability to relate events. Attention was poor, recall was poor and thinking delayed. He is more vulnerable than months prior due to his impaired cognitive functioning and physical status. Legal guardianship is needed. Dr. Garcia Past Patient History - Tetanus Immunizations Tetanus Immunization: Unknown - Past Medical History & Family History Past Medical History?: Yes - Past Social History Smoking Status: Never Smoked - CARDIAC Hx Cardiac Disorders: No Hx Congestive Heart Failure: No Hx Hypercholesterolemia: No Hx Hypertension: No - PULMONARY Hx Chronic Obstructive Pulmonary Disease (COPD): No - NEUROLOGICAL HX Cerebrovascular Accident: No - HEENT Hx HEENT Problems: Yes Hx Cataracts: No Hx Deafness: No Hx Difficulty Chewing: No Hx Epistaxis: No Hx Glaucoma: Yes Hx Macular Degeneration: No - RENAL Hx Renal Failure: No - ENDOCRINE/METABOLIC Hx Diabetes Mellitus Type 1: No Hx Diabetes Mellitus Type 2: No Hx Hypothyroidism: No - HEMATOLOGICAL/ONCOLOGICAL Hx Anemia: No Hx Human Immunodeficiency Virus (HIV): No Hx Sickle Cell Disease: No - INTEGUMENTARY Hx Dermatological Problems: No Hx Basil Cell: No Hx Silva: No Hx Cellulitis: Yes (right leg) Hx Eczema: No Hx Melanoma: No Hx Psoriasis: No Hx Squamous Cell: No - MUSCULOSKELETAL/RHEUMATOLOGICAL Hx Arthritis: No Hx Rheumatoid Arthritis: No - GASTROINTESTINAL Hx Crohn's Disease: No Hx Diverticulitis: No Hx Gall Bladder Disease: No Hx Gastritis: No Hx Pancreatitis: No - GENITOURINARY/GYNECOLOGICAL Hx Sexually Transmitted Disorders: No - PSYCHIATRIC Hx Anxiety: Yes Hx Depression: Yes - SURGICAL HISTORY Hx Appendectomy: Yes Hx Carotid Endarterectomy: No Hx Cholecystectomy: No Hx Coronary Artery Bypass Graft: No Hx Coronary Stent: No Hx Tonsillectomy: Yes - ANESTHESIA Hx Anesthesia: Yes Hx Anesthesia Reactions: No Hx Malignant Hyperthermia: No Meds Allergies/Adverse Reactions: Allergies Allergy/AdvReac Type Severity Reaction Status Date / Time Penicillins Allergy Hives Verified 08/01/15 06:34 - Medications Medications: Current Medications Acetaminophen (Tylenol 325mg Tab) 650 mg PO Q6 PRN PRN Reason: Pain, Mild (1-3) Last Admin: 09/27/16 12:50 Dose: 650 mg Albuterol/Ipratropium (Duoneb 3 Mg/0.5 Mg (3 Ml) Ud) 3 ml INH RQ4 PRN PRN Reason: Shortness of Breath Benzocaine/Menthol (Cepacol Sore Throat) 1 morro PO Q3 PRN PRN Reason: Sore Throat Last Admin: 09/30/16 08:55 Dose: 1 morro Bethanechol Chloride (Urecholine) 50 mg PO TID [facility] Last Admin: 10/10/16 17:20 Dose: 50 mg Carbidopa/Levodopa (Rytary Er 48.75 Mg-195 Mg Cap) 1 cap PO TID@0500,1300,2100 [facility] Last Admin: 10/11/16 05:43 Dose: 1 cap Fluocinonide (Lidex 0.05% Oint) 1 applic TOP BID [facility] Last Admin: 10/10/16 17:20 Dose: 1 appl Levofloxacin (Levaquin) 500 mg PO DAILY [facility] Last Admin: 10/10/16 09:38 Dose: 500 mg Magnesium Hydroxide (Milk Of Magnesia) 30 ml PO DAILY PRN PRN Reason: Constipation Last Admin: 09/30/16 11:47 Dose: 30 ml Midodrine (Proamatine) 10 mg PO TID [facility] Last Admin: 10/10/16 17:20 Dose: 10 mg Pantoprazole Sodium (Protonix Ec Tab) 40 mg PO DAILY [facility] Last Admin: 10/10/16 09:38 Dose: 40 mg Quetiapine Fumarate (Seroquel) 50 mg PO HS PRN PRN Reason: Agitation Last Admin: 10/10/16 09:38 Dose: 50 mg Results - Vital Signs Recent Vital Signs: Last Vital Signs Temp 98.5 F 10/10/16 21:39 Pulse 69 10/10/16 21:39 Resp 20 10/10/16 21:39 BP 132/74 10/10/16 21:39 Pulse Ox 100 10/10/16 21:39 - Labs Result Diagrams: 10/10/16 06:25 10/10/16 06:25
[2016-10-11] MEDS: Bethanechol 50 MG TAB PO SCH ×3 (08:56→17:29)
[2016-10-11] MEDS: Pantoprazole 40 mg EC Tab PO SCH (08:56)
[2016-10-11] MEDS: levoFLOXacin 500 MG TAB PO SCH (08:56)
--- NOTE | 2016-10-11 19:21 | CP.PCM.PN ---
Subjective - Date & Time of Evaluation Date of Evaluation: 10/11/16 Time of Evaluation: 22:22 - Subjective Subjective: Improved Objective - Vital Signs/Intake and Output Vital Signs (last 24 hours): Temp Pulse Resp BP Pulse Ox 98.1 F 61 20 115/76 99 10/11/16 16:28 10/11/16 16:28 10/11/16 16:28 10/11/16 16:28 10/11/16 16:28 - Medications Medications: Current Medications Acetaminophen (Tylenol 325mg Tab) 650 mg PO Q6 PRN PRN Reason: Pain, Mild (1-3) Last Admin: 09/27/16 12:50 Dose: 650 mg Albuterol/Ipratropium (Duoneb 3 Mg/0.5 Mg (3 Ml) Ud) 3 ml INH RQ4 PRN PRN Reason: Shortness of Breath Benzocaine/Menthol (Cepacol Sore Throat) 1 morro PO Q3 PRN PRN Reason: Sore Throat Last Admin: 09/30/16 08:55 Dose: 1 morro Bethanechol Chloride (Urecholine) 50 mg PO TID [facility] Last Admin: 10/11/16 17:29 Dose: 50 mg Carbidopa/Levodopa (Rytary Er 48.75 Mg-195 Mg Cap) 1 cap PO TID@0500,1300,2100 [facility] Last Admin: 10/11/16 13:00 Dose: 1 cap Fluocinonide (Lidex 0.05% Oint) 1 applic TOP BID [facility] Last Admin: 10/11/16 17:28 Dose: 1 appl Levofloxacin (Levaquin) 500 mg PO DAILY [facility] Last Admin: 10/11/16 08:56 Dose: 500 mg Magnesium Hydroxide (Milk Of Magnesia) 30 ml PO DAILY PRN PRN Reason: Constipation Last Admin: 09/30/16 11:47 Dose: 30 ml Midodrine (Proamatine) 10 mg PO TID [facility] Last Admin: 10/11/16 17:28 Dose: 10 mg Pantoprazole Sodium (Protonix Ec Tab) 40 mg PO DAILY [facility] Last Admin: 10/11/16 08:56 Dose: 40 mg Quetiapine Fumarate (Seroquel) 50 mg PO HS PRN PRN Reason: Agitation Last Admin: 10/10/16 09:38 Dose: 50 mg - Labs Labs: 10/10/16 06:25 10/10/16 06:25 - Respiratory Exam Respiratory Exam: NORMAL BREATHING PATTERN - Cardiovascular Exam Cardiovascular Exam: REGULAR RHYTHM - GI/Abdominal Exam GI & Abdominal Exam: Normal Bowel Sounds Assessment and Plan - Assessment and Plan (Free Text) Assessment: Pneumonia resolving Lethargy?? improved today CXR imroved Cultures negative Pulmonary note appreciated Repeat labs improved d/c Baclofen Reconsult Neuro MSA Parkinsons DX Lilia Vieira PT Rytary 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 awaiting transfer to [place] Pt has medical decision making capacity but is financially vulnerable Court and Social service involved Pt is [place] WW[place] R shoulder pain Dec ROM xrays subluxation Ultram PRN PT Atelectasis Afebrile Gastroentritis? 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
[2016-10-12] MEDS: LEVODOPA PO SCH ×3 (05:22→20:15)
[2016-10-12] MEDS: CARBIDOPA PO SCH ×3 (05:22→20:15)
[2016-10-12] MEDS: Bethanechol 50 MG TAB PO SCH ×3 (08:57→16:01)
[2016-10-12] MEDS: Pantoprazole 40 mg EC Tab PO SCH (08:57)
[2016-10-12] MEDS: levoFLOXacin 500 MG TAB PO SCH (08:58)
--- NOTE | 2016-10-12 23:43 | CP.PCM.PN ---
Subjective - Date & Time of Evaluation Date of Evaluation: 10/12/16 Time of Evaluation: 22:22 - Subjective Subjective: Afebrile Objective - Vital Signs/Intake and Output Vital Signs (last 24 hours): Temp Pulse Resp BP Pulse Ox 97.6 F 71 18 145/72 100 10/12/16 17:53 10/12/16 17:53 10/12/16 17:53 10/12/16 17:53 10/12/16 17:53 - Medications Medications: Current Medications Acetaminophen (Tylenol 325mg Tab) 650 mg PO Q6 PRN PRN Reason: Pain, Mild (1-3) Last Admin: 09/27/16 12:50 Dose: 650 mg Benzocaine/Menthol (Cepacol Sore Throat) 1 morro PO Q3 PRN PRN Reason: Sore Throat Last Admin: 09/30/16 08:55 Dose: 1 morro Bethanechol Chloride (Urecholine) 50 mg PO TID [facility] Last Admin: 10/12/16 16:01 Dose: 50 mg Carbidopa/Levodopa (Rytary Er 48.75 Mg-195 Mg Cap) 1 cap PO TID@0500,1300,2100 [facility] Last Admin: 10/12/16 20:15 Dose: 1 cap Fluocinonide (Lidex 0.05% Oint) 1 applic TOP BID [facility] Last Admin: 10/12/16 16:01 Dose: 1 appl Levofloxacin (Levaquin) 500 mg PO DAILY [facility] Last Admin: 10/12/16 08:58 Dose: 500 mg Magnesium Hydroxide (Milk Of Magnesia) 30 ml PO DAILY PRN PRN Reason: Constipation Last Admin: 09/30/16 11:47 Dose: 30 ml Midodrine (Proamatine) 10 mg PO TID [facility] Last Admin: 10/12/16 16:01 Dose: 10 mg Pantoprazole Sodium (Protonix Ec Tab) 40 mg PO DAILY [facility] Last Admin: 10/12/16 08:57 Dose: 40 mg Quetiapine Fumarate (Seroquel) 50 mg PO HS PRN PRN Reason: Agitation Last Admin: 10/10/16 09:38 Dose: 50 mg - Labs Labs: 10/10/16 06:25 10/10/16 06:25 - Respiratory Exam Respiratory Exam: NORMAL BREATHING PATTERN - Cardiovascular Exam Cardiovascular Exam: REGULAR RHYTHM - GI/Abdominal Exam GI & Abdominal Exam: Normal Bowel Sounds Assessment and Plan - Assessment and Plan (Free Text) Assessment: Pneumonia resolving Lethargy?? improved CXR imroved Cultures negative Pulmonary note appreciated Repeat labs improved d/c Baclofen Reconsult Neuro MSA Parkinsons DX Lilia Wrayer PT Rytary 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 awaiting transfer to [place] Pt has medical decision making capacity but is financially vulnerable Court and Social service involved Pt is [place] R shoulder pain Dec ROM xrays subluxation Ultram PRN PT Atelectasis Afebrile Gastroentritis? 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
[2016-10-13] MEDS: CARBIDOPA PO SCH ×3 (04:18→20:19)
[2016-10-13] MEDS: LEVODOPA PO SCH ×3 (04:18→20:19)
[2016-10-13 08:02] LABS: HEMOGLOBIN 12.2 g/dL (12.0-18.0); MEAN CELL VOLUME 94.3 fl (80.0-94.0); MEAN CORPUSCULAR HEMOGLOBIN 30.6 pg (27.0-31.0); MEAN CORPUSCULAR HGB CONC 32.5 g/dL (33.0-37.0); RBC 3.97 Mil/uL (4.40-5.90); RED CELL DISTRIBUTION WIDTH 13.6 % (11.5-14.5); WHITE BLOOD COUNT 6.5 K/uL (4.8-10.8)
[2016-10-13 08:18] LABS: ALBUMIN 3.4 g/dL (3.5-5.0); ALT/SGPT 14 U/L (21-72); AST/SGOT 25 U/L (17-59); BLOOD UREA NITROGEN 26 mg/dl (9-20); CALCIUM 9.2 mg/dL (8.4-10.2); GFR AFRICAN-AMERICAN > 60; GFR NON-AFRICAN AMERICAN > 60
[2016-10-13] MEDS: Bethanechol 50 MG TAB PO SCH ×3 (09:19→17:57)
[2016-10-13] MEDS: Pantoprazole 40 mg EC Tab PO SCH (09:19)
[2016-10-13] MEDS: levoFLOXacin 500 MG TAB PO SCH (09:20)
--- NOTE | 2016-10-13 16:11 | CP.PCM.PN ---
Subjective - Date & Time of Evaluation Date of Evaluation: 10/13/16 Time of Evaluation: 22:22 - Subjective Subjective: More responsive Objective - Vital Signs/Intake and Output Vital Signs (last 24 hours): Temp Pulse Resp BP Pulse Ox 97.6 F 90 20 104/70 96 10/13/16 07:56 10/13/16 07:56 10/13/16 07:56 10/13/16 07:56 10/13/16 07:56 - Medications Medications: Current Medications Acetaminophen (Tylenol 325mg Tab) 650 mg PO Q6 PRN PRN Reason: Pain, Mild (1-3) Last Admin: 09/27/16 12:50 Dose: 650 mg Benzocaine/Menthol (Cepacol Sore Throat) 1 morro PO Q3 PRN PRN Reason: Sore Throat Last Admin: 09/30/16 08:55 Dose: 1 morro Bethanechol Chloride (Urecholine) 50 mg PO TID [facility] Last Admin: 10/13/16 12:55 Dose: 50 mg Carbidopa/Levodopa (Rytary Er 48.75 Mg-195 Mg Cap) 1 cap PO TID@0500,1300,2100 [facility] Last Admin: 10/13/16 12:54 Dose: 1 cap Fluocinonide (Lidex 0.05% Oint) 1 applic TOP BID [facility] Last Admin: 10/13/16 09:19 Dose: 1 appl Magnesium Hydroxide (Milk Of Magnesia) 30 ml PO DAILY PRN PRN Reason: Constipation Last Admin: 09/30/16 11:47 Dose: 30 ml Midodrine (Proamatine) 10 mg PO TID [facility] Last Admin: 10/13/16 12:54 Dose: 10 mg Nystatin (Nystop Topical Powder) 1 applic TOP TID [facility] Pantoprazole Sodium (Protonix Ec Tab) 40 mg PO DAILY [facility] Last Admin: 10/13/16 09:19 Dose: 40 mg Quetiapine Fumarate (Seroquel) 50 mg PO HS PRN PRN Reason: Agitation Last Admin: 10/10/16 09:38 Dose: 50 mg - Labs Labs: 10/13/16 06:00 10/13/16 06:00 - Respiratory Exam Respiratory Exam: NORMAL BREATHING PATTERN - Cardiovascular Exam Cardiovascular Exam: REGULAR RHYTHM - GI/Abdominal Exam GI & Abdominal Exam: Normal Bowel Sounds Assessment and Plan - Assessment and Plan (Free Text) Assessment: Disposition?? awaiting transfer to [place] Pt has medical decision making capacity but is financially vulnerable and would benefit from legal guardianship Court and Social service involved Pt is [place] WW[place] Pneumonia resolved Abx d/c Lethargy?? improved Baclofen d/c Infection resolved Reconsult Neuro MSA Parkinsons DX Lilia Vieira PT Rytary Midodrine R shoulder pain Dec ROM xrays subluxation Ultram PRN PT Gastroentritis? 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
[2016-10-14] MEDS: LEVODOPA PO SCH ×3 (04:21→21:45)
[2016-10-14] MEDS: CARBIDOPA PO SCH ×3 (04:21→21:45)
[2016-10-14] MEDS: Pantoprazole 40 mg EC Tab PO SCH (08:28)
[2016-10-14] MEDS: Bethanechol 50 MG TAB PO SCH ×3 (08:29→18:13)
--- NOTE | 2016-10-14 20:59 | CP.PCM.PN ---
Subjective - Date & Time of Evaluation Date of Evaluation: 10/14/16 Time of Evaluation: 22:22 - Subjective Subjective: Above noted Objective - Vital Signs/Intake and Output Vital Signs (last 24 hours): Temp Pulse Resp BP Pulse Ox 97.4 F L 61 20 122/57 L 97 10/14/16 20:33 10/14/16 20:33 10/14/16 20:33 10/14/16 20:33 10/14/16 20:33 - Medications Medications: Current Medications Acetaminophen (Tylenol 325mg Tab) 650 mg PO Q6 PRN PRN Reason: Pain, Mild (1-3) Last Admin: 09/27/16 12:50 Dose: 650 mg Benzocaine/Menthol (Cepacol Sore Throat) 1 morro PO Q3 PRN PRN Reason: Sore Throat Last Admin: 09/30/16 08:55 Dose: 1 morro Bethanechol Chloride (Urecholine) 50 mg PO TID [facility] Last Admin: 10/14/16 18:13 Dose: 50 mg Carbidopa/Levodopa (Rytary Er 48.75 Mg-195 Mg Cap) 1 cap PO TID@0500,1300,2100 [facility] Last Admin: 10/14/16 13:35 Dose: 1 cap Fluocinonide (Lidex 0.05% Oint) 1 applic TOP BID [facility] Last Admin: 10/14/16 18:12 Dose: 1 appl Magnesium Hydroxide (Milk Of Magnesia) 30 ml PO DAILY PRN PRN Reason: Constipation Last Admin: 09/30/16 11:47 Dose: 30 ml Midodrine (Proamatine) 10 mg PO TID [facility] Last Admin: 10/14/16 18:13 Dose: 10 mg Nystatin (Nystop Topical Powder) 1 applic TOP TID [facility] Last Admin: 10/14/16 18:13 Dose: 1 unit Pantoprazole Sodium (Protonix Ec Tab) 40 mg PO DAILY [facility] Last Admin: 10/14/16 08:28 Dose: 40 mg Quetiapine Fumarate (Seroquel) 50 mg PO HS PRN PRN Reason: Agitation Last Admin: 10/10/16 09:38 Dose: 50 mg - Labs Labs: 10/13/16 06:00 10/13/16 06:00 - Respiratory Exam Respiratory Exam: NORMAL BREATHING PATTERN - Cardiovascular Exam Cardiovascular Exam: REGULAR RHYTHM - GI/Abdominal Exam GI & Abdominal Exam: Normal Bowel Sounds Assessment and Plan - Assessment and Plan (Free Text) Assessment: Disposition?? awaiting transfer to [place] Pt has medical decision making capacity but is financially vulnerable and would benefit from legal guardianship Court and Social service involved Pt is [place] Pneumonia resolved Abx d/c Lethargy?? 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
[2016-10-15] MEDS: LEVODOPA PO SCH ×3 (05:55→20:34)
[2016-10-15] MEDS: CARBIDOPA PO SCH ×3 (05:55→20:34)
[2016-10-15] MEDS: Pantoprazole 40 mg EC Tab PO SCH (08:50)
[2016-10-15] MEDS: Bethanechol 50 MG TAB PO SCH ×3 (08:53→16:50)
[2016-10-15] MEDS: Magnesium Hydroxide Susp 30 ml UD PO PRN (16:51)
--- NOTE | 2016-10-15 20:57 | CP.PCM.PN ---
Subjective - Date & Time of Evaluation Date of Evaluation: 10/15/16 Time of Evaluation: 22:22 - Subjective Subjective: Much improved Objective - Vital Signs/Intake and Output Vital Signs (last 24 hours): Temp Pulse Resp BP Pulse Ox 98 F 82 20 141/71 97 10/15/16 17:50 10/15/16 17:50 10/15/16 17:50 10/15/16 17:50 10/15/16 17:50 - Medications Medications: Current Medications Acetaminophen (Tylenol 325mg Tab) 650 mg PO Q6 PRN PRN Reason: Pain, Mild (1-3) Last Admin: 09/27/16 12:50 Dose: 650 mg Benzocaine/Menthol (Cepacol Sore Throat) 1 morro PO Q3 PRN PRN Reason: Sore Throat Last Admin: 09/30/16 08:55 Dose: 1 morro Bethanechol Chloride (Urecholine) 50 mg PO TID [facility] Last Admin: 10/15/16 16:50 Dose: 50 mg Carbidopa/Levodopa (Rytary Er 48.75 Mg-195 Mg Cap) 1 cap PO TID@0500,1300,2100 [facility] Last Admin: 10/15/16 20:34 Dose: 1 cap Fluocinonide (Lidex 0.05% Oint) 1 applic TOP BID [facility] Last Admin: 10/15/16 16:51 Dose: 1 appl Magnesium Hydroxide (Milk Of Magnesia) 30 ml PO DAILY PRN PRN Reason: Constipation Last Admin: 10/15/16 16:51 Dose: 30 ml Midodrine (Proamatine) 10 mg PO TID [facility] Last Admin: 10/15/16 16:51 Dose: 10 mg Nystatin (Nystop Topical Powder) 1 applic TOP TID [facility] Last Admin: 10/15/16 16:51 Dose: 1 unit Pantoprazole Sodium (Protonix Ec Tab) 40 mg PO DAILY [facility] Last Admin: 10/15/16 08:50 Dose: 40 mg - Labs Labs: 10/13/16 06:00 10/13/16 06:00 - Respiratory Exam Respiratory Exam: NORMAL BREATHING PATTERN - Cardiovascular Exam Cardiovascular Exam: REGULAR RHYTHM - GI/Abdominal Exam GI & Abdominal Exam: Normal Bowel Sounds Assessment and Plan - Assessment and Plan (Free Text) Assessment: Disposition?? awaiting transfer to [place] Pt has medical decision making capacity but is financially vulnerable and would benefit from legal guardianship Court and Social service involved Pt is [place] Pneumonia resolved Abx d/c Lethargy?? 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
[2016-10-16] MEDS: LEVODOPA PO SCH ×3 (05:32→20:38)
[2016-10-16] MEDS: CARBIDOPA PO SCH ×3 (05:32→20:38)
[2016-10-16] MEDS: Pantoprazole 40 mg EC Tab PO SCH (08:52)
[2016-10-16] MEDS: Bethanechol 50 MG TAB PO SCH ×3 (08:53→16:24)
--- NOTE | 2016-10-16 18:00 | CP.PCM.PN ---
Subjective - Date & Time of Evaluation Date of Evaluation: 10/16/16 Time of Evaluation: 22:22 - Subjective Subjective: Above noted Objective - Vital Signs/Intake and Output Vital Signs (last 24 hours): Temp Pulse Resp BP Pulse Ox 97.5 F L 78 20 116/61 96 10/16/16 16:26 10/16/16 16:26 10/16/16 16:26 10/16/16 16:26 10/16/16 16:26 - Medications Medications: Current Medications Acetaminophen (Tylenol 325mg Tab) 650 mg PO Q6 PRN PRN Reason: Pain, Mild (1-3) Last Admin: 09/27/16 12:50 Dose: 650 mg Benzocaine/Menthol (Cepacol Sore Throat) 1 morro PO Q3 PRN PRN Reason: Sore Throat Last Admin: 09/30/16 08:55 Dose: 1 morro Bethanechol Chloride (Urecholine) 50 mg PO TID [facility] Last Admin: 10/16/16 16:24 Dose: 50 mg Carbidopa/Levodopa (Rytary Er 48.75 Mg-195 Mg Cap) 1 cap PO TID@0500,1300,2100 [facility] Last Admin: 10/16/16 12:05 Dose: 1 cap Fluocinonide (Lidex 0.05% Oint) 1 applic TOP BID [facility] Last Admin: 10/16/16 16:24 Dose: 1 appl Magnesium Hydroxide (Milk Of Magnesia) 30 ml PO DAILY PRN PRN Reason: Constipation Last Admin: 10/15/16 16:51 Dose: 30 ml Midodrine (Proamatine) 10 mg PO TID [facility] Last Admin: 10/16/16 16:24 Dose: 10 mg Nystatin (Nystop Topical Powder) 1 applic TOP TID [facility] Last Admin: 10/16/16 16:23 Dose: 1 applic Pantoprazole Sodium (Protonix Ec Tab) 40 mg PO DAILY [facility] Last Admin: 10/16/16 08:52 Dose: 40 mg - Labs Labs: 10/13/16 06:00 10/13/16 06:00 - Respiratory Exam Respiratory Exam: NORMAL BREATHING PATTERN - Cardiovascular Exam Cardiovascular Exam: REGULAR RHYTHM - GI/Abdominal Exam GI & Abdominal Exam: Normal Bowel Sounds Assessment and Plan - Assessment and Plan (Free Text) Assessment: Disposition?? awaiting transfer to [place] Pt has medical decision making capacity but is financially vulnerable and would benefit from legal guardianship Court and Social service involved Pt is [place] [employer] Pneumonia resolved Abx d/c Lethargy?? 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 resolved d/c flagyl LGI bleed Thrombocytopenia Thrombocytopenia chronic Decubitus ulcer buttocks DVT prophylaxis SCD (no Lovenox due to thrombocytopenia) S/P UTI Enterrococus S/P Urinary retention S/P UTI Proteus S/P Pnuemonia S/P Hypotension [employer] 2 to Dehydration Meds
[2016-10-17] MEDS: LEVODOPA PO SCH ×3 (05:16→20:10)
[2016-10-17] MEDS: CARBIDOPA PO SCH ×3 (05:16→20:10)
[2016-10-17] MEDS: Bethanechol 50 MG TAB PO SCH ×3 (09:48→17:05)
[2016-10-17] MEDS: Pantoprazole 40 mg EC Tab PO SCH (09:50)
[2016-10-17] MEDS: Magnesium Hydroxide Susp 30 ml UD PO PRN (20:20)
[2016-10-17] MEDS: Benzocaine/Menthol (Cepacol) Lozenge PO PRN (20:20)
--- NOTE | 2016-10-17 21:36 | CP.PCM.PN ---
Subjective - Date & Time of Evaluation Date of Evaluation: 10/17/16 Time of Evaluation: 22:22 - Subjective Subjective: Above noted Objective - Vital Signs/Intake and Output Vital Signs (last 24 hours): Temp Pulse Resp BP Pulse Ox 97.7 F 63 20 111/66 95 10/17/16 20:01 10/17/16 20:01 10/17/16 20:01 10/17/16 20:01 10/17/16 20:01 - Medications Medications: Current Medications Acetaminophen (Tylenol 325mg Tab) 650 mg PO Q6 PRN PRN Reason: Pain, Mild (1-3) Last Admin: 10/17/16 12:08 Dose: 650 mg Benzocaine/Menthol (Cepacol Sore Throat) 1 morro PO Q3 PRN PRN Reason: Sore Throat Last Admin: 10/17/16 20:20 Dose: 1 morro Bethanechol Chloride (Urecholine) 50 mg PO TID [facility] Last Admin: 10/17/16 17:05 Dose: 50 mg Carbidopa/Levodopa (Rytary Er 48.75 Mg-195 Mg Cap) 1 cap PO TID@0500,1300,2100 [facility] Last Admin: 10/17/16 20:10 Dose: 1 cap Fluocinonide (Lidex 0.05% Oint) 1 applic TOP BID [facility] Last Admin: 10/17/16 17:04 Dose: 1 appl Magnesium Hydroxide (Milk Of Magnesia) 30 ml PO DAILY PRN PRN Reason: Constipation Last Admin: 10/17/16 20:20 Dose: 30 ml Midodrine (Proamatine) 10 mg PO TID [facility] Last Admin: 10/17/16 17:05 Dose: 10 mg Nystatin (Nystop Topical Powder) 1 applic TOP TID [facility] Last Admin: 10/17/16 17:04 Dose: 1 applic Pantoprazole Sodium (Protonix Ec Tab) 40 mg PO DAILY [facility] Last Admin: 10/17/16 09:50 Dose: 40 mg - Labs Labs: 10/13/16 06:00 10/13/16 06:00 - Respiratory Exam Respiratory Exam: NORMAL BREATHING PATTERN - Cardiovascular Exam Cardiovascular Exam: REGULAR RHYTHM - GI/Abdominal Exam GI & Abdominal Exam: Normal Bowel Sounds Assessment and Plan - Assessment and Plan (Free Text) Assessment: Disposition?? awaiting transfer to [place] Pt has medical decision making capacity but is financially vulnerable and would benefit from legal guardianship Court and Social service involved Pt is [place] WW[employer] Pneumonia resolved Abx d/c Lethargy?? 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 resolved d/c flagyl LGI bleed Thrombocytopenia Thrombocytopenia chronic Decubitus ulcer buttocks DVT prophylaxis SCD (no Lovenox due to thrombocytopenia) S/P UTI Enterrococus S/P Urinary retention S/P UTI Proteus S/P Pnuemonia S/P Hypotension [employer] 2 to Dehydration Meds
[2016-10-18] MEDS: LEVODOPA PO SCH ×3 (05:38→21:10)
[2016-10-18] MEDS: CARBIDOPA PO SCH ×3 (05:38→21:10)
[2016-10-18] MEDS: Pantoprazole 40 mg EC Tab PO SCH (08:46)
[2016-10-18] MEDS: Bethanechol 50 MG TAB PO SCH ×3 (08:46→16:37)
[2016-10-18] MEDS: Magnesium Hydroxide Susp 30 ml UD PO PRN (17:00)
--- NOTE | 2016-10-18 18:36 | CP.PCM.PN ---
Subjective - Date & Time of Evaluation Date of Evaluation: 10/18/16 Time of Evaluation: 22:22 - Subjective Subjective: Above noted Objective - Vital Signs/Intake and Output Vital Signs (last 24 hours): Temp Pulse Resp BP Pulse Ox 97.4 F L 86 20 119/69 97 10/18/16 17:30 10/18/16 17:30 10/18/16 17:30 10/18/16 17:30 10/18/16 17:30 - Medications Medications: Current Medications Acetaminophen (Tylenol 325mg Tab) 650 mg PO Q6 PRN PRN Reason: Pain, Mild (1-3) Last Admin: 10/17/16 12:08 Dose: 650 mg Benzocaine/Menthol (Cepacol Sore Throat) 1 morro PO Q3 PRN PRN Reason: Sore Throat Last Admin: 10/17/16 20:20 Dose: 1 morro Bethanechol Chloride (Urecholine) 50 mg PO TID [facility] Last Admin: 10/18/16 16:37 Dose: 50 mg Carbidopa/Levodopa (Rytary Er 48.75 Mg-195 Mg Cap) 1 cap PO TID@0500,1300,2100 [facility] Last Admin: 10/18/16 12:43 Dose: 1 cap Fluocinonide (Lidex 0.05% Oint) 1 applic TOP BID [facility] Last Admin: 10/18/16 16:38 Dose: 1 appl Magnesium Hydroxide (Milk Of Magnesia) 30 ml PO DAILY PRN PRN Reason: Constipation Last Admin: 10/18/16 17:00 Dose: 30 ml Midodrine (Proamatine) 10 mg PO TID [facility] Last Admin: 10/18/16 16:38 Dose: 10 mg Nystatin (Nystop Topical Powder) 1 applic TOP TID [facility] Last Admin: 10/18/16 16:39 Dose: 1 applic Pantoprazole Sodium (Protonix Ec Tab) 40 mg PO DAILY [facility] Last Admin: 10/18/16 08:46 Dose: 40 mg - Labs Labs: 10/13/16 06:00 10/13/16 06:00 - Respiratory Exam Respiratory Exam: NORMAL BREATHING PATTERN - Cardiovascular Exam Cardiovascular Exam: REGULAR RHYTHM - GI/Abdominal Exam GI & Abdominal Exam: Normal Bowel Sounds Assessment and Plan - Assessment and Plan (Free Text) Assessment: Disposition?? awaiting transfer to [place] Pt has medical decision making capacity but is financially vulnerable and would benefit from legal guardianship Court and Social service involved Pt is [place] WW[employer] Pneumonia resolved Abx d/c Lethargy?? 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 resolved d/c flagyl LGI bleed Thrombocytopenia Thrombocytopenia chronic Decubitus ulcer buttocks DVT prophylaxis SCD (no Lovenox due to thrombocytopenia) S/P UTI Enterrococus S/P Urinary retention S/P UTI Proteus S/P Pnuemonia S/P Hypotension [employer] 2 to Dehydration Meds
[2016-10-19] MEDS: CARBIDOPA PO SCH ×3 (03:59→20:58)
[2016-10-19] MEDS: LEVODOPA PO SCH ×3 (03:59→20:58)
[2016-10-19] MEDS: Bethanechol 50 MG TAB PO SCH ×3 (08:38→17:27)
[2016-10-19] MEDS: Pantoprazole 40 mg EC Tab PO SCH (08:38)
--- NOTE | 2016-10-20 00:30 | CP.PCM.PN ---
Subjective - Date & Time of Evaluation Date of Evaluation: 10/20/16 Time of Evaluation: 22:22 - Subjective Subjective: Above noted Objective - Vital Signs/Intake and Output Vital Signs (last 24 hours): Temp Pulse Resp BP Pulse Ox 97.8 F 72 20 122/65 95 10/19/16 17:00 10/19/16 17:00 10/19/16 17:00 10/19/16 17:00 10/19/16 17:00 - Medications Medications: Current Medications Acetaminophen (Tylenol 325mg Tab) 650 mg PO Q6 PRN PRN Reason: Pain, Mild (1-3) Last Admin: 10/17/16 12:08 Dose: 650 mg Benzocaine/Menthol (Cepacol Sore Throat) 1 morro PO Q3 PRN PRN Reason: Sore Throat Last Admin: 10/17/16 20:20 Dose: 1 morro Bethanechol Chloride (Urecholine) 50 mg PO TID [facility] Last Admin: 10/19/16 17:27 Dose: 50 mg Carbidopa/Levodopa (Rytary Er 48.75 Mg-195 Mg Cap) 1 cap PO TID@0500,1300,2100 [facility] Last Admin: 10/19/16 20:58 Dose: 1 cap Fluocinonide (Lidex 0.05% Oint) 1 applic TOP BID [facility] Last Admin: 10/19/16 17:26 Dose: 1 appl Magnesium Hydroxide (Milk Of Magnesia) 30 ml PO DAILY PRN PRN Reason: Constipation Last Admin: 10/18/16 17:00 Dose: 30 ml Midodrine (Proamatine) 10 mg PO TID [facility] Last Admin: 10/19/16 17:27 Dose: 10 mg Nystatin (Nystop Topical Powder) 1 applic TOP TID [facility] Last Admin: 10/19/16 17:26 Dose: 1 applic Pantoprazole Sodium (Protonix Ec Tab) 40 mg PO DAILY [facility] Last Admin: 10/19/16 08:38 Dose: 40 mg - Labs Labs: 10/13/16 06:00 10/13/16 06:00 - Respiratory Exam Respiratory Exam: NORMAL BREATHING PATTERN - Cardiovascular Exam Cardiovascular Exam: REGULAR RHYTHM - GI/Abdominal Exam GI & Abdominal Exam: Normal Bowel Sounds Assessment and Plan - Assessment and Plan (Free Text) Assessment: Disposition?? awaiting transfer to [place] Pt has medical decision making capacity but is financially vulnerable and would benefit from legal guardianship Court and Social service involved Pt is [place] WW[employer] Pneumonia resolved Abx d/c Lethargy?? 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
[2016-10-20] MEDS: LEVODOPA PO SCH ×3 (05:00→20:29)
[2016-10-20] MEDS: CARBIDOPA PO SCH ×3 (05:00→20:29)
[2016-10-20] MEDS: Bethanechol 50 MG TAB PO SCH ×3 (08:44→16:04)
[2016-10-20] MEDS: Pantoprazole 40 mg EC Tab PO SCH (08:44)
--- NOTE | 2016-10-20 14:39 | CP.PCM.PN ---
Subjective - Date & Time of Evaluation Date of Evaluation: 10/20/16 Time of Evaluation: 22:22 - Subjective Subjective: Doing well Objective - Vital Signs/Intake and Output Vital Signs (last 24 hours): Temp Pulse Resp BP Pulse Ox 97.4 F L 61 20 115/69 99 10/20/16 07:47 10/20/16 07:47 10/20/16 07:47 10/20/16 07:47 10/20/16 07:47 - Medications Medications: Current Medications Acetaminophen (Tylenol 325mg Tab) 650 mg PO Q6 PRN PRN Reason: Pain, Mild (1-3) Last Admin: 10/17/16 12:08 Dose: 650 mg Benzocaine/Menthol (Cepacol Sore Throat) 1 morro PO Q3 PRN PRN Reason: Sore Throat Last Admin: 10/17/16 20:20 Dose: 1 morro Bethanechol Chloride (Urecholine) 50 mg PO TID [facility] Last Admin: 10/20/16 12:01 Dose: 50 mg Carbidopa/Levodopa (Rytary Er 48.75 Mg-195 Mg Cap) 1 cap PO TID@0500,1300,2100 [facility] Last Admin: 10/20/16 12:01 Dose: 1 cap Fluocinonide (Lidex 0.05% Oint) 1 applic TOP BID [facility] Last Admin: 10/20/16 08:44 Dose: 1 appl Magnesium Hydroxide (Milk Of Magnesia) 30 ml PO DAILY PRN PRN Reason: Constipation Last Admin: 10/18/16 17:00 Dose: 30 ml Midodrine (Proamatine) 10 mg PO TID [facility] Last Admin: 10/20/16 12:01 Dose: 10 mg Nystatin (Nystop Topical Powder) 1 applic TOP TID [facility] Last Admin: 10/20/16 12:01 Dose: 1 applic Pantoprazole Sodium (Protonix Ec Tab) 40 mg PO DAILY [facility] Last Admin: 10/20/16 08:44 Dose: 40 mg - Labs Labs: 10/13/16 06:00 10/13/16 06:00 - Respiratory Exam Respiratory Exam: NORMAL BREATHING PATTERN - Cardiovascular Exam Cardiovascular Exam: REGULAR RHYTHM - GI/Abdominal Exam GI & Abdominal Exam: Normal Bowel Sounds Assessment and Plan - Assessment and Plan (Free Text) Assessment: Disposition?? awaiting transfer to [place] Pt has medical decision making capacity but is financially vulnerable and would benefit from legal guardianship Court and Social service involved Pt is [place] WWII MSA Parkinsons DX Shry Drager PT Rytary Midodrine Pneumonia resolved Abx d/c Lethargy?? improved Baclofen d/c Infection resolved Reconsult Neuro R shoulder pain Dec ROM xrays subluxation Ultram PRN PT Gastroentritis? resolved d/c flagyl LGI bleed Thrombocytopenia Thrombocytopenia chronic Decubitus ulcer buttocks DVT prophylaxis SCD (no Lovenox due to thrombocytopenia) S/P UTI Enterrococus S/P Urinary retention S/P UTI Proteus S/P Pnuemonia S/P Hypotension PROJECT HIRE 2 to Dehydration Meds
[2016-10-20] MEDS: Benzocaine/Menthol (Cepacol) Lozenge PO PRN (19:26)
[2016-10-21] MEDS: LEVODOPA PO SCH ×3 (05:54→21:59)
[2016-10-21] MEDS: CARBIDOPA PO SCH ×3 (05:54→21:59)
[2016-10-21] MEDS: Bethanechol 50 MG TAB PO SCH ×3 (08:39→17:28)
[2016-10-21] MEDS: Pantoprazole 40 mg EC Tab PO SCH (08:39)
--- NOTE | 2016-10-21 09:24 | CP.PCM.PCO ---
Assessment/Plan - Assessment/Plan Assessment (Free Text): 0857 Called by RN to evaluate pt for hypotension with BP of 78/42. Upon assessment manual BP 72/38, HR 50, O2 sat 95% via NC with unlabored respirations, blood sugar 134. Pt noted to be diaphoretic and clammy to touch. Pt denies cp or sob, but when asked how he is feeling states "I am dying". 1L NS fluid bolus given, stat labs and EKG, FIRMWARE TEST ENGINEER called. Will continue to monitor closely with FIRMWARE TEST ENGINEER team. - Problems Patient Problems: Problem List (Active/Current) Problem Status Priority Diagnosed Code Cellulitis and abscess of leg, except foot Suspected L02.419 Atrial fibrillation Resolved Medium I48.91 Cellulitis Resolved L03.90 Fall Resolved W19.XXXA Pneumonia Resolved J18.9 Thigh shingles Resolved B02.9 UTI (urinary tract infection) Resolved N39.0
[2016-10-21 09:32] LABS: VENOUS BLOOD GAS BASE EXCESS -1.7 mmol/L (0.0-2.0); VENOUS BLOOD GAS PCO2 57 mmHg (40-60); VENOUS BLOOD GAS PO2 18 mm/Hg (30-55); VENOUS BLOOD PH 7.27 (7.32-7.43)
[2016-10-21 09:38] LABS: BASO # 0.1 K/uL (0.0-0.2); BASO % 0.4 % (0.0-2.0); EOS # 0.1 K/uL (0.0-0.7); EOS % 0.3 % (0.0-4.0); HEMOGLOBIN 13.5 g/dL (12.0-18.0); LYMPH % 6.4 % (20.0-40.0); MEAN CELL VOLUME 94.8 fl (80.0-94.0); MEAN CORPUSCULAR HEMOGLOBIN 30.9 pg (27.0-31.0); MEAN CORPUSCULAR HGB CONC 32.6 g/dL (33.0-37.0); MEAN PLATELET VOLUME 9.8 fl (7.2-11.7); MONO # 0.5 K/uL (0.0-0.8); MONO % 3.3 % (0.0-10.0); NEUT # 14.3 K/uL (1.8-7.0); NEUT % 89.6 % (50.0-75.0); PLATELET COUNT 130 K/uL (130-400); RBC 4.38 Mil/uL (4.40-5.90); RED CELL DISTRIBUTION WIDTH 13.9 % (11.5-14.5)
[2016-10-21 09:46] LABS: ALB/GLOB RATIO 1.1 (1.0-2.1); ALBUMIN 4.1 g/dL (3.5-5.0); AST/SGOT 29 U/L (17-59); BLOOD UREA NITROGEN 30 mg/dl (9-20); GFR AFRICAN-AMERICAN > 60; GFR NON-AFRICAN AMERICAN 53; MAGNESIUM 2.9 MG/DL (1.6-2.3)
[2016-10-21 09:47] LABS: ALT/SGPT < 6 U/L (21-72)
--- NOTE | 2016-10-21 10:12 | RAD ---
PROCEDURE: CHEST RADIOGRAPH, 1 VIEW HISTORY: SOB, hypotension COMPARISON: Comparison chest 10/08/2016. FINDINGS: LUNGS: Note the examination is somewhat limited due to patient rotation to the right side. The right lung apex is partially obscured by overlying facial soft tissue and mandible artifact. Poor inspiration with low lung volumes, mild crowded bronchovascular markings and mild bibasilar atelectasis. . . PLEURA: No pneumothorax or pleural fluid seen. CARDIOVASCULAR: Cardiomegaly. Aorta is ectatic and uncoiled OSSEOUS STRUCTURES: No significant abnormalities. VISUALIZED UPPER ABDOMEN: Normal. OTHER FINDINGS: None. IMPRESSION: Poor inspiration with low lung volumes, mild crowded bronchovascular markings and mild bibasilar atelectasis.
--- NOTE | 2016-10-21 10:41 | PCM.RRTMUL ---
HAND KNITTER Nurse Assessment - Situation HAND KNITTER Responder Arrival Time:: 23:33 (Pte examined shulder to shoulder withdr Hopkins. discussed in depth the case and i agree with the assessment and elvia outlined above which reflect my direct input.Ptesteban has poor appetiteand appears to be dehydrated.he is Hypotensive, SBP in the 70s lying in meredith position, increasing to 113when placed in [place]. he was then given 1000mls of normal salinebolusand continued with 75mlx/hr.) Location:: 6S HAND KNITTER Reason for Call: Hypotension - IV IV Inserted during HAND KNITTER?: No IV Fluids Initiated During HAND KNITTER?: Normal Saline 1 liter Bolus. Then placed on Normal Saline at 75ml/hr. - Respiratory Oxygen Delivery Method:: Nasal Cannula Received Nebulizer Treatments:: No Was the Patient Ventilated with Bag/Mask 100% O2?: No (N/A) Secretions Suctioned?: No (N/A) Was the Patient Intubated?: No (N/A) - Diagnostic Test Ordered EKG:: No Chest X-Ray:: No CT Scan:: No - Stat Labs Ordered HAND KNITTER Stat Labs Ordered:: CBC, BMP CPR started during HAND KNITTER?: No - Vital Signs Blood Pressure:: 156/67 Pulse Rate:: 65 Respiratory Rate:: 20 Temperature:: 97.5 F - Sepsis Screen Part 1 Sepsis Screen Part 1: Hypotensive - Time HAND KNITTER Ended Time HAND KNITTER Ended:: 01:45 - Vital Signs at end of HAND KNITTER Blood Pressure:: 101/60 Pulse Rate:: 79 Respiratory Rate:: 34 O2 Sat by Pulse Oximetry:: 94 - Recommendations 5) HAND KNITTER Level of Care Recommendations: Remain in current setting Responder Note - Location Location: 6S Discovered by:: Nurse - HAND KNITTER Team HAND KNITTER Leader:: Sp Patel - Vital Signs at Initial Assessment Blood Pressure:: 72/38 Pulse Rate:: 45 O2 Sat by Pulse Oximetry:: 95 - Acute Change in Patient Acute Change in Patient: (Select all that apply): Acute change in heart rate less than 50 or greater than 120, Acute change in SBP below 90mmHg - Chest Pain Chest Pain:(If answer is yes, complete next 2 questions): No - Neurological Status Neurological Status (Select all that apply):: Alert, Responsive - Respiratory HAND KNITTER Delivery Method:: Nasal Cannula @L/min Oxygen Flow Rate:: 4 - Genitourinary HAND KNITTER Genitourinary: Incontinent Summary - Summary of Event Summary of Event: 86 y/o M, with PMHx of Parkinson's disease and chronic shoulder pain was called HAND KNITTER by nurse because of low blood pressure and bradycardia. When responders arrived patient was alert, able to follow commands, c/o SOB and L/shoulder pain. No vomiting, nausea. Patient had 1 episode of diarrhea at the time. Initial VS: BP 72/38 HR: 45 O2Sat 95% at 4L nasal cannula Rectal Temp: 95 Accucheck 132 UE resting tremor present. Able to speak in short sentences No evident resp distress more episodes of diarrhea(3) NBNM Recheck VS 09:23 BP 92/43 HR 56, O2sat 95% 09:39 BP 100/46 HR 58 Assessment and Plan: 1-Hypotension/Bradycardia(Possible due to sepsis) -IV NS 2L bolus(2 lines) -CBC, CMP, CXR, EKG, Lactic acid, VBG, UCx, BCx, Mg, Phosp, C.Diff toxin all ordered -Cardiology Dr singletary contacted -[facility] [place] for hypothermia. Outcomes - HAND KNITTER Outcomes HAND KNITTER Outcomes: Pertinent Lab results: Lactic Acid 5.7 WBC 16 EKG: Bradycardia. no acute ischemic changes VBG: Ph 7.27 PO2 18L PCO2 57 HCO3 21.5 BUN 30 Na 149 K 4.3 Glucose 138 ID consulted for Sepsis(Dr Stringer) Patient started on Vancomycin and Gentamicin and transferred to ICU for further care
[2016-10-21] MEDS: metroNIDAZOLE 500mg/100ml NS 100 ML IVPB SCH ×2 (10:46→17:25)
--- NOTE | 2016-10-21 11:01 | CP.PCM.CON ---
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 ADMITTED TO ICU WITH HYPOTHERMIA, BRADYARRYTHMIAS R/O SEPSIS HAS HX OF UTI'S AND PNEUMONIA IN THE PAST Review of Systems - Review of Systems Systems not reviewed;Unavailable: Altered Mental Status - Constitutional Constitutional: As Per HPI - EENT Eyes: absent: As Per HPI, Blind Spots, Blurred Vision, Change in Vision, Decreased Night Vision, Diplopia, Discharge, Dry Eye, Exophthalmos, Floaters, Irritation, Itchy Eyes, Loss of Peripheral Vision, Pain, Photophobia, Requires Corrective Lenses, Sees Flashes, Spots in Vision, Tunnel Vision, Other Visual Disturbances, Loss of Vision, Other Ears: absent: As Per HPI, Decreased Hearing, Ear Discharge, Ear Pain, Tinnitus, Abnormal Hearing, Disequilibrium, Dizziness, Other Nose/Mouth/Throat: absent: As Per HPI, Epistaxis, Nasal Congestion, Nasal Discharge, Nasal Obstruction, Nasal Trauma, Nose Pain, Post Nasal Drip, Sinus Pain, Sinus Pressure, Bleeding Gums, Change in Voice, Dental Pain, Dry Mouth, Dysphagia, Halitosis, Hoarsness, Lip Swelling, Mouth Lesions, Mouth Pain, Odynophagia, Sore Throat, Throat Swelling, Tongue Swelling, Facial Pain, Neck Pain, Neck Mass, Other - Cardiovascular Cardiovascular: As Per HPI - Respiratory Respiratory: absent: As Per HPI, Cough, Dyspnea, Hemoptysis, Dyspnea on Exertion , Wheezing, Snoring, Stridor, Pain on Inspiration, Chest Congestion, Excessive Mucous Production, Change in Mucous Color, Pain with Coughing, Other - Gastrointestinal Gastrointestinal: absent: As Per HPI, Abdominal Pain, Belching, Bloating, Change in Bowel Habits, Change in Stool Character, Coffee Ground Emesis, Constipation, Cramping, Diarrhea, Dyspepsia, Dysphagia, Early Satiety, Excessive Flatus, Fecal Incontinence, Heartburn, Hematemesis, Hematochezia, Loose Stools, Melena, Nausea, Odynophagia, Temesmus, Vomiting, Other - Genitourinary Genitourinary: As Per HPI Past Patient History - Tetanus Immunizations Tetanus Immunization: Unknown - Past Medical History & Family History Past Medical History?: Yes - Past Social History Smoking Status: Never Smoked - CARDIAC Hx Cardiac Disorders: No Hx Congestive Heart Failure: No Hx Hypercholesterolemia: No Hx Hypertension: No - PULMONARY Hx Chronic Obstructive Pulmonary Disease (COPD): No - NEUROLOGICAL HX Cerebrovascular Accident: No - HEENT Hx HEENT Problems: Yes Hx Cataracts: No Hx Deafness: No Hx Difficulty Chewing: No Hx Epistaxis: No Hx Glaucoma: Yes Hx Macular Degeneration: No - RENAL Hx Renal Failure: No - ENDOCRINE/METABOLIC Hx Diabetes Mellitus Type 1: No Hx Diabetes Mellitus Type 2: No Hx Hypothyroidism: No - HEMATOLOGICAL/ONCOLOGICAL Hx Anemia: No Hx Human Immunodeficiency Virus (HIV): No Hx Sickle Cell Disease: No - INTEGUMENTARY Hx Dermatological Problems: No Hx Basil Cell: No Hx Silva: No Hx Cellulitis: Yes (right leg) Hx Eczema: No Hx Melanoma: No Hx Psoriasis: No Hx Squamous Cell: No - MUSCULOSKELETAL/RHEUMATOLOGICAL Hx Arthritis: No Hx Rheumatoid Arthritis: No - GASTROINTESTINAL Hx Crohn's Disease: No Hx Diverticulitis: No Hx Gall Bladder Disease: No Hx Gastritis: No Hx Pancreatitis: No - GENITOURINARY/GYNECOLOGICAL Hx Sexually Transmitted Disorders: No - PSYCHIATRIC Hx Anxiety: Yes Hx Depression: Yes - SURGICAL HISTORY Hx Appendectomy: Yes Hx Carotid Endarterectomy: No Hx Cholecystectomy: No Hx Coronary Artery Bypass Graft: No Hx Coronary Stent: No Hx Tonsillectomy: Yes - ANESTHESIA Hx Anesthesia: Yes Hx Anesthesia Reactions: No Hx Malignant Hyperthermia: No Meds Allergies/Adverse Reactions: Allergies Allergy/AdvReac Type Severity Reaction Status Date / Time Penicillins Allergy Hives Verified 08/01/15 06:34 - Medications Medications: Current Medications Acetaminophen (Tylenol 325mg Tab) 650 mg PO Q6 PRN PRN Reason: Pain, Mild (1-3) Last Admin: 10/17/16 12:08 Dose: 650 mg Benzocaine/Menthol (Cepacol Sore Throat) 1 morro PO Q3 PRN PRN Reason: Sore Throat Last Admin: 10/20/16 19:26 Dose: 1 morro Bethanechol Chloride (Urecholine) 50 mg PO TID [facility] Last Admin: 10/21/16 08:39 Dose: 50 mg Carbidopa/Levodopa (Rytary Er 48.75 Mg-195 Mg Cap) 1 cap PO TID@0500,1300,2100 [facility] Last Admin: 10/21/16 05:54 Dose: 1 cap Fluocinonide (Lidex 0.05% Oint) 1 applic TOP BID [facility] Last Admin: 10/21/16 08:38 Dose: 1 appl Gentamicin Sulfate/Sodium Chloride (Gentamicin 80mg/50ml Ns) 50 mls @ 50 mls/ hr IVPB ONCE ONE Stop: 10/21/16 10:59 Last Admin: 10/21/16 10:53 Dose: 50 mls/hr Metronidazole (Flagyl 500mg/100ml Ns) 100 mls @ 100 mls/hr IVPB Q8 [facility] Last Admin: 10/21/16 10:46 Dose: 100 mls/hr Vancomycin HCl 1 gm/ Sodium (Chloride) 250 mls @ 166.667 mls/hr IVPB ONCE ONE Stop: 10/21/16 11:29 Last Admin: 10/21/16 10:45 Dose: 166.667 mls/hr Magnesium Hydroxide (Milk Of Magnesia) 30 ml PO DAILY PRN PRN Reason: Constipation Last Admin: 10/18/16 17:00 Dose: 30 ml Midodrine (Proamatine) 10 mg PO TID [facility] Last Admin: 10/21/16 08:38 Dose: 10 mg Nystatin (Nystop Topical Powder) 1 applic TOP TID [facility] Last Admin: 10/21/16 08:38 Dose: 1 applic Pantoprazole Sodium (Protonix Ec Tab) 40 mg PO DAILY [facility] Last Admin: 10/21/16 08:39 Dose: 40 mg Physical Exam - Constitutional Appears: Confused, Chronically Ill - Head Exam Head Exam: ATRAUMATIC, NORMAL INSPECTION, NORMOCEPHALIC - Eye Exam Eye Exam: EOMI, PERRL. absent: Scleral icterus - ENT Exam ENT Exam: Mucous Membranes Dry - Neck Exam Neck exam: Negative for: Lymphadenopathy, Thyromegaly - Respiratory Exam Respiratory Exam: Decreased Breath Sounds, Clear to Auscultation Bilateral - Cardiovascular Exam Cardiovascular Exam: Bradycardia, Irregular Rhythm, REGULAR RHYTHM, +S1, +S2 - GI/Abdominal Exam GI & Abdominal Exam: Diminished Bowel Sounds, Soft. absent: Tenderness - Rectal Exam Rectal Exam: Deferred - Exam Exam: NORMAL INSPECTION - Extremities Exam Extremities exam: Positive for: pedal pulses present. Negative for: calf tenderness, pedal edema, tenderness - Back Exam Back exam: absent: CVA tenderness (L), CVA tenderness (R) - Neurological Exam Neurological exam: Alert, Altered, CN II-XII Intact - Psychiatric Exam Psychiatric exam: Agitated, Anxious - Skin Skin Exam: Dry Results - Vital Signs Recent Vital Signs: Last Vital Signs Temp 97.5 F L 10/21/16 10:57 Pulse 45 L 10/21/16 10:57 Resp 20 10/21/16 10:57 BP 72/38 L 10/21/16 10:57 Pulse Ox 97 10/21/16 01:00 - Labs Result Diagrams: 10/21/16 09:25 10/21/16 09:25 Labs: Laboratory Results - last 24 hr 10/21/16 10/21/16 09:20 09:25 WBC 16.0 H D RBC 4.38 L Hgb 13.5 Hct 41.5 MCV 94.8 H MCH 30.9 MCHC 32.6 L RDW 13.9 Plt Count 130 MPV 9.8 Neut % (Auto) 89.6 H Lymph % (Auto) 6.4 L [place] % (Auto) 3.3 Eos % (Auto) 0.3 Baso % (Auto) 0.4 Neut # 14.3 H Lymph # 1.0 [place] # 0.5 Eos # 0.1 Baso # 0.1 pO2 18 L VBG pH 7.27 L VBG pCO2 57 VBG HCO3 21.5 VBG O2 Sat (Calc) 25.5 L VBG Base Excess -1.7 L Crit Value Called To Mica abrams Crit Value Read Back Y Blood Gas Notified Time 930 Sodium 149 H Potassium 4.3 Chloride 106 Carbon Dioxide 22 Anion Gap 25 H BUN 30 H Creatinine 1.3 Est GFR ( Amer) > 60 Est GFR (Non-Af Amer) 53 Random Glucose 138 H Lactic Acid 5.7 H* Calcium 10.0 Phosphorus 4.6 H Magnesium 2.9 H Total Bilirubin 0.9 AST 29 ALT < 6 L D Alkaline Phosphatase 140 H D Total Protein 7.8 Albumin 4.1 Globulin 3.7 Albumin/Globulin Ratio 1.1 Assessment & Plan (1) Parkinsonism Status: Acute (2) Bradyarrhythmia Status: Acute - Assessment and Plan (Free Text) Assessment: R/O SEPSIS DEHYRATION ARRYTHMIA CHRONIC OBS PARKINSONS DZ DM
[2016-10-21] MEDS: Aztreonam 1 GM in Sodium Chloride 0.9% 100 ML IVPB SCH ×2 (12:00→17:25)
[2016-10-21 14:16] LABS: LYMPHOCYTE 5 % (20-50); MONOCYTE 1 % (0-10); MYELOCYTE 1 % (0-0); NEUTROPHIL 93 % (42-75); PLATELET ESTIMATE NORMAL (NORMAL); TOTAL CELLS COUNTED 100
[2016-10-21 14:17] LABS: LARGE PLATELETS PRESENT
--- NOTE | 2016-10-21 15:03 | PCM.SEPTIC ---
Sepsis Progress Note - Reassessment Type Date of Evaluation: 10/21/16 (now) Time of Evaluation: 15:02 (now) Reassessment Type: Non-invasive reassessment - Non Invasive Reassessment Were the most recent vital sign reviewed: Yes Vital Sign (Latest): Temp Pulse Resp BP Pulse Ox 97.5 F L 45 L 20 72/38 L 97 10/21/16 11:03 10/21/16 11:03 10/21/16 11:03 10/21/16 11:03 10/21/16 01:00 Cardiovascular: Yes: Regular Rate, Rhythm, Chest Non Tender, Edema, Gallop, JVD , Bradycardia, Tachycardia, Ectopy, Friction Rub, Irregularly Irregular, Other Respiratory: Yes: Normal Breath Sounds, Accessory Muscle Use, Crackles, Rales, Rhonchi, Stridor, Wheezing, Respiratory Distress, Plerual Rub Capillary Refill: Normal (Less than 2 sec) Pulses: Normal Radial, Decreased Dorsalis Pedis, Decreased Posterior Tibialis Skin: Normal Color, Warm, Dry - Invasive Reassessment (complete 2 of 4) Was a Central Venous Pressure Measurement obtained within 6 Hours after the presentation of septic shock: No Was a central venous oxygen measurement obtained within 6 hours after the presentation of septic shock: No Was a bedside cardiovascular ultrasound performed within 6 hours after the presentation of septic shock: No Type performed: Transthoracic Echo Was a passive leg raise performed or was a fluid challenge performed within 6 hrs of the initial fluid bolus: Yes Passive Leg Raise Result: Negative Fluid Challenge performed: Yes Assessment/Plan - Assessment and Plan (Free Text) Assessment: to fluid challenge. normotensive, heart rate ranging fro 45 to 80, irregular.Nurse reports maroon colored stool. But hemoglobin is unchanged.Gi consult requested. Start protonix 40 mg IVPB. Seen by ID on Vancomycin and azactam
--- NOTE | 2016-10-21 16:18 | CARD ---
APPROVED REPORT EKG Measurement Heart [id number] <Conclusion> Atrial fibrillation with slow ventricular response T wave abnormality, consider inferior ischemia Prolonged QT Abnormal ECG
--- NOTE | 2016-10-21 17:12 | CP.PCM.CON ---
History of Present Illness - History of Present Illness History of Present Illness: 86 yo male with Shy Drager sydrome transferredfrom TCU after episode of bradycardia, hypotension, and stool containing small amount of Blood. In ICU stool was loose and small amount of blood was seen. Given IV fluids and now appears comfortable. Review of Systems - Review of Systems Systems not reviewed;Unavailable: Dementia Past Patient History - Tetanus Immunizations Tetanus Immunization: Unknown - Past Medical History & Family History Past Medical History?: Yes - Past Social History Smoking Status: Never Smoked - CARDIAC Hx Cardiac Disorders: No Hx Congestive Heart Failure: No Hx Hypercholesterolemia: No Hx Hypertension: No - PULMONARY Hx Chronic Obstructive Pulmonary Disease (COPD): No - NEUROLOGICAL HX Cerebrovascular Accident: No - HEENT Hx HEENT Problems: Yes Hx Cataracts: No Hx Deafness: No Hx Difficulty Chewing: No Hx Epistaxis: No Hx Glaucoma: Yes Hx Macular Degeneration: No - RENAL Hx Renal Failure: No - ENDOCRINE/METABOLIC Hx Diabetes Mellitus Type 1: No Hx Diabetes Mellitus Type 2: No Hx Hypothyroidism: No - HEMATOLOGICAL/ONCOLOGICAL Hx Anemia: No Hx Human Immunodeficiency Virus (HIV): No Hx Sickle Cell Disease: No - INTEGUMENTARY Hx Dermatological Problems: No Hx Basil Cell: No Hx Silva: No Hx Cellulitis: Yes (right leg) Hx Eczema: No Hx Melanoma: No Hx Psoriasis: No Hx Squamous Cell: No - MUSCULOSKELETAL/RHEUMATOLOGICAL Hx Arthritis: No Hx Rheumatoid Arthritis: No - GASTROINTESTINAL Hx Crohn's Disease: No Hx Diverticulitis: No Hx Gall Bladder Disease: No Hx Gastritis: No Hx Pancreatitis: No - GENITOURINARY/GYNECOLOGICAL Hx Sexually Transmitted Disorders: No - PSYCHIATRIC Hx Anxiety: Yes Hx Depression: Yes - SURGICAL HISTORY Hx Appendectomy: Yes Hx Carotid Endarterectomy: No Hx Cholecystectomy: No Hx Coronary Artery Bypass Graft: No Hx Coronary Stent: No Hx Tonsillectomy: Yes - ANESTHESIA Hx Anesthesia: Yes Hx Anesthesia Reactions: No Hx Malignant Hyperthermia: No Meds Allergies/Adverse Reactions: Allergies Allergy/AdvReac Type Severity Reaction Status Date / Time Penicillins Allergy Hives Verified 08/01/15 06:34 - Medications Medications: Current Medications Acetaminophen (Tylenol 325mg Tab) 650 mg PO Q6 PRN PRN Reason: Pain, Mild (1-3) Last Admin: 10/17/16 12:08 Dose: 650 mg Benzocaine/Menthol (Cepacol Sore Throat) 1 morro PO Q3 PRN PRN Reason: Sore Throat Last Admin: 10/20/16 19:26 Dose: 1 morro Bethanechol Chloride (Urecholine) 50 mg PO TID [facility] Last Admin: 10/21/16 08:39 Dose: 50 mg Carbidopa/Levodopa (Rytary Er 48.75 Mg-195 Mg Cap) 1 cap PO TID@0500,1300,2100 [facility] Last Admin: 10/21/16 15:38 Dose: 1 cap Fluocinonide (Lidex 0.05% Oint) 1 applic TOP BID [facility] Last Admin: 10/21/16 08:38 Dose: 1 appl Metronidazole (Flagyl 500mg/100ml Ns) 100 mls @ 100 mls/hr IVPB Q8 [facility] Last Admin: 10/21/16 10:46 Dose: 100 mls/hr Aztreonam 1 gm/ Sodium (Chloride) 100 mls @ 100 mls/hr IVPB Q8 [facility] Last Admin: 10/21/16 12:00 Dose: 100 mls/hr Vancomycin HCl 1 gm/ Sodium (Chloride) 250 mls @ 166.667 mls/hr IVPB DAILY [facility] Magnesium Hydroxide (Milk Of Magnesia) 30 ml PO DAILY PRN PRN Reason: Constipation Last Admin: 10/18/16 17:00 Dose: 30 ml Midodrine (Proamatine) 10 mg PO TID [facility] Last Admin: 10/21/16 15:37 Dose: Not Given Nystatin (Nystop Topical Powder) 1 applic TOP TID [facility] Last Admin: 10/21/16 15:39 Dose: 1 applic Pantoprazole Sodium (Protonix Inj) 40 mg IVP DAILY [facility] Last Admin: 10/21/16 15:39 Dose: 40 mg Physical Exam - Head Exam Head Exam: ATRAUMATIC - Eye Exam Eye Exam: Normal appearance - ENT Exam ENT Exam: Mucous Membranes Moist - Neck Exam Neck exam: Positive for: Normal Inspection - Respiratory Exam Respiratory Exam: Clear to Auscultation Bilateral - Cardiovascular Exam Cardiovascular Exam: REGULAR RHYTHM, +S1, +S2 - GI/Abdominal Exam GI & Abdominal Exam: Normal Bowel Sounds, Soft. absent: Tenderness Results - Vital Signs Recent Vital Signs: Last Vital Signs Temp 97.5 F L 10/21/16 11:03 Pulse 45 L 10/21/16 11:03 Resp 20 10/21/16 11:03 BP 72/38 L 10/21/16 11:03 Pulse Ox 97 10/21/16 01:00 - Labs Result Diagrams: 10/21/16 09:25 10/21/16 09:25 Labs: Laboratory Results - last 24 hr 10/21/16 10/21/16 10/21/16 08:37 09:20 09:25 WBC 16.0 H D RBC 4.38 L Hgb 13.5 Hct 41.5 MCV 94.8 H MCH 30.9 MCHC 32.6 L RDW 13.9 Plt Count 130 MPV 9.8 Neut % (Auto) 89.6 H Lymph % (Auto) 6.4 L [place] % (Auto) 3.3 Eos % (Auto) 0.3 Baso % (Auto) 0.4 Neut # 14.3 H Lymph # 1.0 [place] # 0.5 Eos # 0.1 Baso # 0.1 Neutrophils % (Manual) 93 H Lymphocytes % (Manual) 5 L Monocytes % (Manual) 1 Myelocytes % 1 H Platelet Estimate Normal Large Platelets Present RBC Morphology Normal pO2 18 L VBG pH 7.27 L VBG pCO2 57 VBG HCO3 21.5 VBG O2 Sat (Calc) 25.5 L VBG Base Excess -1.7 L Crit Value Called To Mica abrams Crit Value Read Back Y Blood Gas Notified Time 930 Sodium 149 H Potassium 4.3 Chloride 106 Carbon Dioxide 22 Anion Gap 25 H BUN 30 H Creatinine 1.3 Est GFR ( Amer) > 60 Est GFR (Non-Af Amer) 53 POC Glucose (mg/dL) 133 H Random Glucose 138 H Lactic Acid 5.7 H* Calcium 10.0 Phosphorus 4.6 H Magnesium 2.9 H Total Bilirubin 0.9 AST 29 ALT < 6 L D Alkaline Phosphatase 140 H D Total Protein 7.8 Albumin 4.1 Globulin 3.7 Albumin/Globulin Ratio 1.1 C. difficile Ag & Toxin 10/21/16 13:30 WBC RBC Hgb Hct MCV MCH MCHC RDW Plt Count MPV Neut % (Auto) Lymph % (Auto) [place] % (Auto) Eos % (Auto) Baso % (Auto) Neut # Lymph # [place] # Eos # Baso # Neutrophils % (Manual) Lymphocytes % (Manual) Monocytes % (Manual) Myelocytes % Platelet Estimate Large Platelets RBC Morphology pO2 VBG pH VBG pCO2 VBG HCO3 VBG O2 Sat (Calc) VBG Base Excess Crit Value Called To Crit Value Read Back Blood Gas Notified Time Sodium Potassium Chloride Carbon Dioxide Anion Gap BUN Creatinine Est GFR ( Amer) Est GFR (Non-Af Amer) POC Glucose (mg/dL) Random Glucose Lactic Acid 3.1 H Calcium Phosphorus Magnesium Total Bilirubin AST ALT Alkaline Phosphatase Total Protein Albumin Globulin Albumin/Globulin Ratio C. difficile Ag & Toxin Negative Assessment & Plan (1) GI bleeding Assessment and Plan: Would avoid anti diarrheals today and follow clinically. First stool negative for C diff. On broad spectrum antibiotics for possible sepsis. IV hydration. Status: Acute
--- NOTE | 2016-10-21 18:53 | CP.PCM.PN ---
Subjective - Date & Time of Evaluation Date of Evaluation: 10/21/16 Time of Evaluation: 22:22 - Subjective Subjective: PLEXIGLAS FORMER Bradycardia Hypotenson Objective - Vital Signs/Intake and Output Vital Signs (last 24 hours): Temp Pulse Resp BP Pulse Ox 97.5 F L 45 L 20 72/38 L 97 10/21/16 11:03 10/21/16 11:03 10/21/16 11:03 10/21/16 11:03 10/21/16 01:00 Intake and Output: 10/21/16 10/21/16 06:59 18:59 Intake Total 3350 Output Total 503 Balance 2847 - Medications Medications: Current Medications Acetaminophen (Tylenol 325mg Tab) 650 mg PO Q6 PRN PRN Reason: Pain, Mild (1-3) Last Admin: 10/17/16 12:08 Dose: 650 mg Benzocaine/Menthol (Cepacol Sore Throat) 1 morro PO Q3 PRN PRN Reason: Sore Throat Last Admin: 10/20/16 19:26 Dose: 1 morro Bethanechol Chloride (Urecholine) 50 mg PO TID [facility] Last Admin: 10/21/16 17:28 Dose: 50 mg Carbidopa/Levodopa (Rytary Er 48.75 Mg-195 Mg Cap) 1 cap PO TID@0500,1300,2100 [facility] Last Admin: 10/21/16 15:38 Dose: 1 cap Fluocinonide (Lidex 0.05% Oint) 1 applic TOP BID [facility] Last Admin: 10/21/16 17:26 Dose: 1 appl Metronidazole (Flagyl 500mg/100ml Ns) 100 mls @ 100 mls/hr IVPB Q8 [facility] Last Admin: 10/21/16 17:25 Dose: 100 mls/hr Aztreonam 1 gm/ Sodium (Chloride) 100 mls @ 100 mls/hr IVPB Q8 [facility] Last Admin: 10/21/16 17:25 Dose: 100 mls/hr Vancomycin HCl 1 gm/ Sodium (Chloride) 250 mls @ 166.667 mls/hr IVPB DAILY [facility] Magnesium Hydroxide (Milk Of Magnesia) 30 ml PO DAILY PRN PRN Reason: Constipation Last Admin: 10/18/16 17:00 Dose: 30 ml Midodrine (Proamatine) 10 mg PO TID [facility] Last Admin: 10/21/16 17:27 Dose: 10 mg Nystatin (Nystop Topical Powder) 1 applic TOP TID [facility] Last Admin: 10/21/16 17:26 Dose: 1 applic Pantoprazole Sodium (Protonix Inj) 40 mg IVP DAILY [facility] Last Admin: 10/21/16 15:39 Dose: 40 mg - Labs Labs: 10/21/16 09:25 10/21/16 09:25 - Respiratory Exam Respiratory Exam: NORMAL BREATHING PATTERN - Cardiovascular Exam Cardiovascular Exam: REGULAR RHYTHM - GI/Abdominal Exam GI & Abdominal Exam: Normal Bowel Sounds Assessment and Plan - Assessment and Plan (Free Text) Assessment: PLEXIGLAS FORMER Bradycardia Hypotenson Sepsis source? ICU ABX IVF cultures CXR ID Cardiology MSA Parkinsons DX Shry Drager PT Rytary Midodrine Disposition?? awaiting transfer to [place] Pt has medical decision making capacity but is financially vulnerable and would benefit from legal guardianship Court and Social service involved Pt is [place] Lethargy?? improved Baclofen d/c Infection resolved Reconsult Neuro R shoulder pain Dec ROM xrays subluxation Ultram PRN PT Gastroentritis? resolved d/c flagyl LGI bleed Thrombocytopenia Thrombocytopenia chronic Decubitus ulcer buttocks DVT prophylaxis SCD (no Lovenox due to thrombocytopenia) S/P UTI Enterrococus S/P Urinary retention S/P UTI Proteus S/P Pnuemonia S/P Hypotension PLEXIGLAS FORMER 2 to Dehydration Meds
[2016-10-21 20:52] LABS: HEMOGLOBIN 12.2 g/dL (12.0-18.0); MEAN CELL VOLUME 93.3 fl (80.0-94.0); MEAN CORPUSCULAR HEMOGLOBIN 30.3 pg (27.0-31.0); MEAN CORPUSCULAR HGB CONC 32.5 g/dL (33.0-37.0); RBC 4.02 Mil/uL (4.40-5.90); RED CELL DISTRIBUTION WIDTH 13.8 % (11.5-14.5)
[2016-10-22] MEDS: metroNIDAZOLE 500mg/100ml NS 100 ML IVPB SCH ×3 (01:03→16:48)
[2016-10-22] MEDS: Aztreonam 1 GM in Sodium Chloride 0.9% 100 ML IVPB SCH ×3 (01:45→16:51)
[2016-10-22] MEDS: CARBIDOPA PO SCH ×3 (04:51→20:27)
[2016-10-22] MEDS: LEVODOPA PO SCH ×3 (04:51→20:27)
[2016-10-22 05:17] LABS: BASO # 0.1 K/uL (0.0-0.2); BASO % 0.5 % (0.0-2.0); EOS # 0.1 K/uL (0.0-0.7); EOS % 1.4 % (0.0-4.0); HEMOGLOBIN 11.5 g/dL (12.0-18.0); LYMPH # 1.6 K/uL (1.0-4.3); LYMPH % 15.7 % (20.0-40.0); MEAN CELL VOLUME 93.8 fl (80.0-94.0); MEAN CORPUSCULAR HEMOGLOBIN 30.9 pg (27.0-31.0); MEAN CORPUSCULAR HGB CONC 32.9 g/dL (33.0-37.0); MEAN PLATELET VOLUME 10.3 fl (7.2-11.7); MONO # 0.7 K/uL (0.0-0.8); MONO % 6.4 % (0.0-10.0); NRBC % 0.2 % (0.0-0.0); RBC 3.73 Mil/uL (4.40-5.90); WHITE BLOOD COUNT 10.5 K/uL (4.8-10.8)
[2016-10-22 05:51] LABS: ALBUMIN 3.1 g/dL (3.5-5.0); AST/SGOT 23 U/L (17-59); BLOOD UREA NITROGEN 34 mg/dl (9-20); CALCIUM 8.8 mg/dL (8.4-10.2); GFR AFRICAN-AMERICAN > 60; GFR NON-AFRICAN AMERICAN > 60
[2016-10-22 06:00] LABS: ALT/SGPT < 6 U/L (21-72)
--- NOTE | 2016-10-22 06:23 | CON ---
DATE: 10/21/2016 CRITICAL CARE CONSULTATION The patient is in ICU bed 426. TIME SPENT: 35 minutes. The patient is seen and evaluated at the bedside. An 86-year-old male of Dr. Cornejo with a history of dementia, Parkinson's disease, chronic atrial fibrillation with ralph-tachy arrhythmia, hypertension on carbidopa-levodopa, Seroquel,, Neurontin, and midodrine, was admitted a year and a half ago, currently on med-surgical floor, waiting for transfer to a fpc, history of aspiration pneumonia recently treated with levofloxacin. this morning noted to have bradycardia, hypotension, given IV normal saline bolus of 2 liters with subsequent improvement in blood pressure. Lactic acid was noted to elevated. Code sepsis was called. Transferred to ICU. REVIEW OF SYSTEMS: Complaining of feeling chilly and cold. Occasional dry cough. Denies headache. No shortness of breath,. Denies , abdominal pain. Had 1 episode of diarrhea, tremor of upper extremities. No swelling of the lower extremities. PAST MEDICAL HISTORY: As noted above. CURRENT MEDICATIONS: Include Cepacol sore throat 1 tablet q. 3 p.r.n., ( carbidopa-levodopa) Rytary extended release 48.75 mg/125 mg twice daily, Lidex 0.05% ointment, 1 application topically twice daily, magnesium hydroxide 30 mL p.o. daily, p.r.n., metronidazole 500 mg IV q. 8 hours, midodrine 10 mg p.o. 3 times daily, Protonix 40 mg daily, vancomycin 1 gram x 1. ALLERGY: PENICILLIN. PHYSICAL EXAMINATION: GENERAL: Elderly male, alert, awake, reduced hearing, able to follow commands _ ___. VITAL SIGNS: Temperature 97.5, heart rate 45-71, blood pressure increased to 126/64, respiratory rate 20 saturating 95% on room air. INTAKE AND OUTPUT: No recorded. WEIGHT: 190 pounds. HEAD, EYES, EARS, NOSE, AND THROAT: Pupils are reactive. Conjunctivae are pale. Sclerae are white. NECK: Supple. Trachea is central. CHEST: Bilateral breath sounds, scattered rhonchi. HEART: Rhythm regular. I/ systolic murmur at the left sternal border. ABDOMEN: Bowel sounds present, soft. EXTREMITIES: tremor, trace edema lower extremities. Peripheral pulses symmetric, intact, reduced in intensity. LABORATORY DATA: WBC 16, hemoglobin 13., hematocrit 41.5, platelet count 130, neutrophils 89.6, lymphocytes 6.4_ D-dimer 1.051. ABG venous: pH 7.25, pCO2 of 57, bicarb 21.. SMA7: Sodium 149, potassium 4.2, chloride of 106, CO2 of 22 , blood urea nitrogen 30, creatinine 1.3, glucose 138, lactic acid 5.7, calcium 10, phosphorous 4.6, magnesium 2.9, total bilirubin 0.9, AST 29, alkaline phosphatase 140, total protein 7.8, albumin of 4.1. Procalcitonin pending. Direct platelet IgG antibody negative. Serology: C-diff antigen negative HIV nonreactive. IMPRESSION: An 86-year-old male status post bradycardia, hypotensione, given IV fluid, responded. Currently remains in the normotensive range. Septic workup completed., given vancomycin 1 gram IV, ____ 1 gram iv given.. Infectious disease consult requested - evaluation in process for antibiotic as per infectious disease consult. Hypernatremia associated with dehydration. Followup sodium level._ , Parkinson's disease with risk for aspiration. Chest x -ray currently does not show any evidence of pneumonia. However, we will follow up repeat x-ray to rule out progressive pneumonia. Pain left arm shoulder, associated arthritis, on gabapentin 600 mg 3 times daily, history of chronic atrial fibrillation with tachybrady arrhythmia. Evaluation by cardiology requested for possible demand pacemaker. Chronic hypotension, on midodrine 5 mg 3 times daily. Continue deep venous thrombosis and gastrointestinal prophylaxis. Levi Ribeiro MD cc: [id number] TT: 10/21/2016 12:29:04 Confirmation # [id number] Dictation # [id number]
--- NOTE | 2016-10-22 08:50 | CP.PCM.CON ---
History of Present Illness - History of Present Illness History of Present Illness: 86 year old male admitted to ICU with hypotension and dehydration. 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 He has improved with hydration with a bp in the 90's mmHG and Hr in 70's. Past Patient History - Tetanus Immunizations Tetanus Immunization: Unknown - Past Medical History & Family History Past Medical History?: Yes - Past Social History Smoking Status: Never Smoked - CARDIAC Hx Cardiac Disorders: No Hx Congestive Heart Failure: No Hx Hypercholesterolemia: No Hx Hypertension: No - PULMONARY Hx Chronic Obstructive Pulmonary Disease (COPD): No - NEUROLOGICAL HX Cerebrovascular Accident: No - HEENT Hx HEENT Problems: Yes Hx Cataracts: No Hx Deafness: No Hx Difficulty Chewing: No Hx Epistaxis: No Hx Glaucoma: Yes Hx Macular Degeneration: No - RENAL Hx Renal Failure: No - ENDOCRINE/METABOLIC Hx Diabetes Mellitus Type 1: No Hx Diabetes Mellitus Type 2: No Hx Hypothyroidism: No - HEMATOLOGICAL/ONCOLOGICAL Hx Anemia: No Hx Human Immunodeficiency Virus (HIV): No Hx Sickle Cell Disease: No - INTEGUMENTARY Hx Dermatological Problems: No Hx Basil Cell: No Hx Silva: No Hx Cellulitis: Yes (right leg) Hx Eczema: No Hx Melanoma: No Hx Psoriasis: No Hx Squamous Cell: No - MUSCULOSKELETAL/RHEUMATOLOGICAL Hx Arthritis: No Hx Rheumatoid Arthritis: No - GASTROINTESTINAL Hx Crohn's Disease: No Hx Diverticulitis: No Hx Gall Bladder Disease: No Hx Gastritis: No Hx Pancreatitis: No - GENITOURINARY/GYNECOLOGICAL Hx Sexually Transmitted Disorders: No - PSYCHIATRIC Hx Anxiety: Yes Hx Depression: Yes - SURGICAL HISTORY Hx Appendectomy: Yes Hx Carotid Endarterectomy: No Hx Cholecystectomy: No Hx Coronary Artery Bypass Graft: No Hx Coronary Stent: No Hx Tonsillectomy: Yes - ANESTHESIA Hx Anesthesia: Yes Hx Anesthesia Reactions: No Hx Malignant Hyperthermia: No Meds Allergies/Adverse Reactions: Allergies Allergy/AdvReac Type Severity Reaction Status Date / Time Penicillins Allergy Hives Verified 08/01/15 06:34 - Medications Medications: Current Medications Acetaminophen (Tylenol 325mg Tab) 650 mg PO Q6 PRN PRN Reason: Pain, Mild (1-3) Last Admin: 10/17/16 12:08 Dose: 650 mg Benzocaine/Menthol (Cepacol Sore Throat) 1 morro PO Q3 PRN PRN Reason: Sore Throat Last Admin: 10/20/16 19:26 Dose: 1 morro Bethanechol Chloride (Urecholine) 50 mg PO TID [facility] Last Admin: 10/21/16 17:28 Dose: 50 mg Carbidopa/Levodopa (Rytary Er 48.75 Mg-195 Mg Cap) 1 cap PO TID@0500,1300,2100 [facility] Last Admin: 10/22/16 04:51 Dose: 1 cap Fluocinonide (Lidex 0.05% Oint) 1 applic TOP BID [facility] Last Admin: 10/21/16 17:26 Dose: 1 appl Metronidazole (Flagyl 500mg/100ml Ns) 100 mls @ 100 mls/hr IVPB Q8 [facility] Last Admin: 10/22/16 01:03 Dose: 100 mls/hr Aztreonam 1 gm/ Sodium (Chloride) 100 mls @ 100 mls/hr IVPB Q8 [facility] Last Admin: 10/22/16 01:45 Dose: 100 mls/hr Vancomycin HCl 1 gm/ Sodium (Chloride) 250 mls @ 166.667 mls/hr IVPB DAILY [facility] Magnesium Hydroxide (Milk Of Magnesia) 30 ml PO DAILY PRN PRN Reason: Constipation Last Admin: 10/18/16 17:00 Dose: 30 ml Midodrine (Proamatine) 10 mg PO TID [facility] Last Admin: 10/21/16 17:27 Dose: 10 mg Nystatin (Nystop Topical Powder) 1 applic TOP TID [facility] Last Admin: 10/21/16 17:26 Dose: 1 applic Pantoprazole Sodium (Protonix Inj) 40 mg IVP DAILY [facility] Last Admin: 10/21/16 15:39 Dose: 40 mg Physical Exam - Constitutional Appears: No Acute Distress - Neck Exam Neck exam: Positive for: Normal Inspection - Respiratory Exam Respiratory Exam: Clear to Auscultation Bilateral - Cardiovascular Exam Cardiovascular Exam: Irregular Rhythm - GI/Abdominal Exam GI & Abdominal Exam: Normal Bowel Sounds - Extremities Exam Extremities exam: Positive for: normal inspection Results - Vital Signs Recent Vital Signs: Last Vital Signs Temp 98.3 F 10/22/16 08:00 Pulse 58 L 10/22/16 08:00 Resp 16 10/22/16 08:00 BP 99/65 L 10/22/16 08:00 Pulse Ox 98 10/22/16 08:00 - Labs Result Diagrams: 10/22/16 04:50 10/22/16 04:50 Labs: Laboratory Results - last 24 hr 10/21/16 10/21/16 10/21/16 08:37 08:55 09:20 WBC RBC Hgb Hct MCV MCH MCHC RDW Plt Count MPV Neut % (Auto) Lymph % (Auto) [place] % (Auto) Eos % (Auto) Baso % (Auto) Neut # Lymph # [place] # Eos # Baso # Neutrophils % (Manual) Lymphocytes % (Manual) Monocytes % (Manual) Myelocytes % Platelet Estimate Large Platelets RBC Morphology pO2 18 L VBG pH 7.27 L VBG pCO2 57 VBG HCO3 21.5 VBG O2 Sat (Calc) 25.5 L VBG Base Excess -1.7 L Crit Value Called To Mica abrams Crit Value Read Back Y Blood Gas Notified Time 930 Sodium Potassium Chloride Carbon Dioxide Anion Gap BUN Creatinine Est GFR ( Amer) Est GFR (Non-Af Amer) POC Glucose (mg/dL) 133 H 134 H Random Glucose Lactic Acid Calcium Phosphorus Magnesium Total Bilirubin AST ALT Alkaline Phosphatase Total Protein Albumin Globulin Albumin/Globulin Ratio Random Vancomycin C. difficile Ag & Toxin 10/21/16 10/21/16 10/21/16 09:25 13:30 20:20 WBC 16.0 H D 13.0 H RBC 4.38 L 4.02 L Hgb 13.5 12.2 Hct 41.5 37.5 MCV 94.8 H 93.3 MCH 30.9 30.3 MCHC 32.6 L 32.5 L RDW 13.9 13.8 Plt Count 130 113 L MPV 9.8 Neut % (Auto) 89.6 H Lymph % (Auto) 6.4 L [place] % (Auto) 3.3 Eos % (Auto) 0.3 Baso % (Auto) 0.4 Neut # 14.3 H Lymph # 1.0 [place] # 0.5 Eos # 0.1 Baso # 0.1 Neutrophils % (Manual) 93 H Lymphocytes % (Manual) 5 L Monocytes % (Manual) 1 Myelocytes % 1 H Platelet Estimate Normal Large Platelets Present RBC Morphology Normal pO2 VBG pH VBG pCO2 VBG HCO3 VBG O2 Sat (Calc) VBG Base Excess Crit Value Called To Crit Value Read Back Blood Gas Notified Time Sodium 149 H Potassium 4.3 Chloride 106 Carbon Dioxide 22 Anion Gap 25 H BUN 30 H Creatinine 1.3 Est GFR ( Amer) > 60 Est GFR (Non-Af Amer) 53 POC Glucose (mg/dL) Random Glucose 138 H Lactic Acid 5.7 H* 3.1 H Calcium 10.0 Phosphorus 4.6 H Magnesium 2.9 H Total Bilirubin 0.9 AST 29 ALT < 6 L D Alkaline Phosphatase 140 H D Total Protein 7.8 Albumin 4.1 Globulin 3.7 Albumin/Globulin Ratio 1.1 Random Vancomycin C. difficile Ag & Toxin Negative 10/22/16 04:50 WBC 10.5 RBC 3.73 L Hgb 11.5 L Hct 34.9 L MCV 93.8 MCH 30.9 MCHC 32.9 L RDW 14.0 Plt Count 100 L MPV 10.3 Neut % (Auto) 76.0 H Lymph % (Auto) 15.7 L [place] % (Auto) 6.4 Eos % (Auto) 1.4 Baso % (Auto) 0.5 Neut # 8.0 H Lymph # 1.6 [place] # 0.7 Eos # 0.1 Baso # 0.1 Neutrophils % (Manual) Lymphocytes % (Manual) Monocytes % (Manual) Myelocytes % Platelet Estimate Large Platelets RBC Morphology pO2 VBG pH VBG pCO2 VBG HCO3 VBG O2 Sat (Calc) VBG Base Excess Crit Value Called To Crit Value Read Back Blood Gas Notified Time Sodium 141 Potassium 4.4 Chloride 106 Carbon Dioxide 22 Anion Gap 18 BUN 34 H Creatinine 0.9 Est GFR ( Amer) > 60 Est GFR (Non-Af Amer) > 60 POC Glucose (mg/dL) Random Glucose 92 Lactic Acid Calcium 8.8 Phosphorus Magnesium Total Bilirubin 1.1 AST 23 ALT < 6 L Alkaline Phosphatase 67 Total Protein 6.2 L Albumin 3.1 L D Globulin 3.1 Albumin/Globulin Ratio 1.0 Random Vancomycin 7.0 C. difficile Ag & Toxin Assessment & Plan - Assessment and Plan (Free Text) Assessment: Hypotension secondary to dehydration no clinical evidence of sepsis with good response to hydration. 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 Pt has chronic atrial fibrillation with slow ventricular response. #1 Hypotension: continue hydration, fluid status essential for maintaining bp #2 Bradycardia: Hr in the 70's with hydration. Pt is not candidate for pacemaker at this time as HR has increased and has severe autonomic dysfunction which is unlikely to respond to increase in hr with pacemaker placement. #3 If after adequate hydration bp remains low Florinef a mineralcorticoid can be added to Midodrine to treat hypotension with autonomic dysfunction. Pt does not need this currently.
[2016-10-22] MEDS: Bethanechol 50 MG TAB PO SCH ×3 (09:02→16:47)
--- NOTE | 2016-10-22 10:27 | CP.PCM.PN ---
Subjective - Date & Time of Evaluation Date of Evaluation: 10/22/16 Time of Evaluation: 10:00 - Subjective Subjective: cultures neg at 24 h cont rx till final reports avail Objective - Vital Signs/Intake and Output Vital Signs (last 24 hours): Temp Pulse Resp BP Pulse Ox 98.3 F 58 L 16 99/65 L 98 10/22/16 08:00 10/22/16 08:00 10/22/16 08:00 10/22/16 08:00 10/22/16 08:00 Intake and Output: 10/22/16 10/22/16 06:59 18:59 Intake Total 830 Output Total 200 Balance 630 - Medications Medications: Current Medications Acetaminophen (Tylenol 325mg Tab) 650 mg PO Q6 PRN PRN Reason: Pain, Mild (1-3) Last Admin: 10/17/16 12:08 Dose: 650 mg Benzocaine/Menthol (Cepacol Sore Throat) 1 morro PO Q3 PRN PRN Reason: Sore Throat Last Admin: 10/20/16 19:26 Dose: 1 morro Bethanechol Chloride (Urecholine) 50 mg PO TID [facility] Last Admin: 10/22/16 09:02 Dose: 50 mg Carbidopa/Levodopa (Rytary Er 48.75 Mg-195 Mg Cap) 1 cap PO TID@0500,1300,2100 [facility] Last Admin: 10/22/16 04:51 Dose: 1 cap Fluocinonide (Lidex 0.05% Oint) 1 applic TOP BID [facility] Last Admin: 10/22/16 09:01 Dose: 1 appl Metronidazole (Flagyl 500mg/100ml Ns) 100 mls @ 100 mls/hr IVPB Q8 [facility] Last Admin: 10/22/16 09:01 Dose: 100 mls/hr Aztreonam 1 gm/ Sodium (Chloride) 100 mls @ 100 mls/hr IVPB Q8 [facility] Last Admin: 10/22/16 01:45 Dose: 100 mls/hr Vancomycin HCl 1 gm/ Sodium (Chloride) 250 mls @ 166.667 mls/hr IVPB DAILY [facility] Last Admin: 10/22/16 09:03 Dose: 166.667 mls/hr Dextrose/Sodium Chloride (Dextrose 5%/0.9% Ns 1000 Ml) 1,000 mls @ 40 mls/hr IV .Q24H [facility] Stop: 10/23/16 09:46 Potassium Chloride/Dextrose/Sod Cl (Potassium Chl 20 Meq In D5-Ns) 1,000 mls @ 40 mls/hr IV .Q24H [facility] Stop: 10/23/16 11:01 Magnesium Hydroxide (Milk Of Magnesia) 30 ml PO DAILY PRN PRN Reason: Constipation Last Admin: 10/18/16 17:00 Dose: 30 ml Midodrine (Proamatine) 10 mg PO TID [facility] Last Admin: 10/22/16 09:02 Dose: 10 mg Nystatin (Nystop Topical Powder) 1 applic TOP TID [facility] Last Admin: 10/22/16 09:02 Dose: 1 applic Pantoprazole Sodium (Protonix Inj) 40 mg IVP DAILY [facility] Last Admin: 10/22/16 09:00 Dose: 40 mg - Labs Labs: 10/22/16 04:50 10/22/16 04:50 - Constitutional Appears: No Acute Distress, Confused - Head Exam Head Exam: NORMOCEPHALIC - Eye Exam Eye Exam: PERRL. absent: Scleral icterus - ENT Exam ENT Exam: Mucous Membranes Dry, Normal External Ear Exam - Neck Exam Neck Exam: absent: Lymphadenopathy - Respiratory Exam Respiratory Exam: Decreased Breath Sounds, Clear to Ausculation Bilateral - Cardiovascular Exam Cardiovascular Exam: REGULAR RHYTHM, +S1, +S2 - GI/Abdominal Exam GI & Abdominal Exam: Distended, Soft - Rectal Exam Rectal Exam: Deferred Assessment and Plan (1) Parkinsonism Status: Acute (2) Bradyarrhythmia Status: Acute
--- NOTE | 2016-10-22 10:57 | PN ---
DATE: 10/22/2016 The patient in ICU, bed 426. TIME SPENT: 35 minutes. The patient is seen; evaluated at the bedside. Discussed case in detail in a.m. rounds. Events since admission are reviewed. Discussed with GI consult, Dr. Arvizu; cardiology consult, Prashanth Branham. An 86-year-old male with Parkinson disease, Shy-Drager syndrome with chronic atrial fibrillation, and chronic hypotension on _midodrine,, admitted to ICU yesterday after being found hypotensive, bradycardic with dehydration. Responded to fluid challenge. Noted to have [id number] maroon colored stool, however, no active GI bleeding noted. This morning, alert, awake, follows commands appropriate. However, intake is poor. VITAL SIGNS: Temperature 98.3, heart rate 56-58 irregular, blood pressure 99/ 65 to 112/42, respiratory rate 16, thoracoabdominal; saturating 98% on oxygen 2 L nasal cannula. Intake 4180, output 703, positive 3477. EXAMINATION OF HEAD, EARS, EYES, NOSE, AND THROAT: Pupils are reactive. Conjunctivae pale, sclerae white. NECK: Supple. Trachea central. CHEST: Bilateral breath sounds. Clear to auscultation. HEART: Rhythm irregular. No audible rub or murmur. ABDOMEN: Bowel sounds present, soft. EXTREMITIES: No edema. NEUROLOGIC EXAMINATION: Alert, awake, moves all 4 extremities. Deep tendon reflexes 2+. Plantar flexor. No cranial nerve deficit noted. CURRENT MEDICATIONS: Tylenol 650 q. 6 p.r.n., aztreonam 1 g IV q. 8, vancomycin 1 g IV daily, carbidopa/levodopa 1 capsule 3 times a day, Urecholine 50 mg p.o. 3 times a day, _ 0.05% ointment 1 application topically twice daily, milk of magnesia 30 mL p.o. daily for constipation, Flagyl 500 mg q. 8 hours, midodrine 10 mg p.o. 3 times daily, Protonix 40 IV daily, vancomycin 1 g IV daily. Blood culture: No growth reported. Urine culture: No growth reported. IMPRESSION: 1. Status post hypovolemic hypotension, responded to fluid challenge, at the patient's baseline blood pressure. History of chronic hypotension requiring midodrine. Continue IV fluid at D5 normal, with 20 of KCl at 40 mL per hour. 2. Bradycardia, resolved. 3. History of chronic atrial fibrillation with tachybrady syndrome. Seen by cardiology. Not a candidate for a pacemaker, and may not benefit. Keep hydration and maintain his blood pressure. 4. Suspected sepsis, though source not clear. Continue vancomycin and aztreonam as per ID consult discussion. Will DC once all the workup reported and negative. Levi Ribeiro MD cc: [id number] TT: 10/22/2016 10:57:03 Confirmation # [id number] Dictation # [id number] MTDD
[2016-10-22 11:50] LABS: GRANULAR CAST 1 /lpf (0-1); SQUAMOUS EPITHIAL < 1 /hpf (0-5); URINE BACTERIA RARE (<OCC); URINE BILIRUBIN NEGATIVE (NEGATIVE); URINE BLOOD NEGATIVE (NEGATIVE); URINE CLARITY SLIGHTY-CLOUDY (Clear); URINE COLOR AMBER (YELLOW); URINE GLUCOSE (UA) NEG (Normal); URINE HYALINE CAST 0-2 /hpf (0-2); URINE LEUKOCYTE ESTERASE NEG Leu/uL (Negative); URINE NITRATE NEGATIVE (NEGATIVE); URINE PROTEIN 30 mg/dL (NEGATIVE); URINE UROBILINOGEN 0.2-1.0 mg/dL (0.2-1.0)
--- NOTE | 2016-10-22 15:53 | CP.PCM.PN ---
Subjective - Date & Time of Evaluation Date of Evaluation: 10/22/16 Time of Evaluation: 22:22 - Subjective Subjective: Above noted Objective - Vital Signs/Intake and Output Vital Signs (last 24 hours): Temp Pulse Resp BP Pulse Ox 97.4 F L 62 5 L 140/63 95 10/22/16 12:00 10/22/16 14:00 10/22/16 14:00 10/22/16 14:00 10/22/16 14:00 Intake and Output: 10/22/16 10/22/16 06:59 18:59 Intake Total 830 630 Output Total 200 Balance 630 630 - Medications Medications: Current Medications Acetaminophen (Tylenol 325mg Tab) 650 mg PO Q6 PRN PRN Reason: Pain, Mild (1-3) Last Admin: 10/17/16 12:08 Dose: 650 mg Benzocaine/Menthol (Cepacol Sore Throat) 1 morro PO Q3 PRN PRN Reason: Sore Throat Last Admin: 10/20/16 19:26 Dose: 1 morro Bethanechol Chloride (Urecholine) 50 mg PO TID [facility] Last Admin: 10/22/16 13:11 Dose: 50 mg Carbidopa/Levodopa (Rytary Er 48.75 Mg-195 Mg Cap) 1 cap PO TID@0500,1300,2100 [facility] Last Admin: 10/22/16 13:11 Dose: 1 cap Fluocinonide (Lidex 0.05% Oint) 1 applic TOP BID [facility] Last Admin: 10/22/16 09:01 Dose: 1 appl Metronidazole (Flagyl 500mg/100ml Ns) 100 mls @ 100 mls/hr IVPB Q8 [facility] Last Admin: 10/22/16 09:01 Dose: 100 mls/hr Aztreonam 1 gm/ Sodium (Chloride) 100 mls @ 100 mls/hr IVPB Q8 [facility] Last Admin: 10/22/16 01:45 Dose: 100 mls/hr Vancomycin HCl 1 gm/ Sodium (Chloride) 250 mls @ 166.667 mls/hr IVPB DAILY [facility] Last Admin: 10/22/16 09:03 Dose: 166.667 mls/hr Potassium Chloride/Dextrose/Sod Cl (Potassium Chl 20 Meq In D5-Ns) 1,000 mls @ 40 mls/hr IV .Q24H [facility] Stop: 10/23/16 11:01 Last Admin: 10/22/16 12:35 Dose: 40 mls/hr Magnesium Hydroxide (Milk Of Magnesia) 30 ml PO DAILY PRN PRN Reason: Constipation Last Admin: 10/18/16 17:00 Dose: 30 ml Midodrine (Proamatine) 10 mg PO TID [facility] Last Admin: 10/22/16 13:11 Dose: 10 mg Nystatin (Nystop Topical Powder) 1 applic TOP TID [facility] Last Admin: 10/22/16 13:10 Dose: 1 applic Pantoprazole Sodium (Protonix Inj) 40 mg IVP DAILY [facility] Last Admin: 10/22/16 09:00 Dose: 40 mg - Labs Labs: 10/22/16 04:50 10/22/16 04:50 - Respiratory Exam Respiratory Exam: NORMAL BREATHING PATTERN - Cardiovascular Exam Cardiovascular Exam: REGULAR RHYTHM - GI/Abdominal Exam GI & Abdominal Exam: Normal Bowel Sounds Assessment and Plan - Assessment and Plan (Free Text) 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 Autonomic dysfunction? ICU ABX IVF cultures CXR ID Cardiology MSA Parkinsons DX Lilia Vieira PT Rytary Midodrine Disposition?? awaiting transfer to [place] Pt has medical decision making capacity but is financially vulnerable and would benefit from legal guardianship Court and Social service involved Pt is [place] [employer] Lethargy?? improved Baclofen d/c Infection resolved Reconsult Neuro R shoulder pain Dec ROM xrays subluxation Ultram PRN PT Gastroentritis? 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
[2016-10-23] MEDS: Aztreonam 1 GM in Sodium Chloride 0.9% 100 ML IVPB SCH ×3 (00:18→17:06)
[2016-10-23] MEDS: metroNIDAZOLE 500mg/100ml NS 100 ML IVPB SCH ×3 (00:19→17:02)
[2016-10-23] MEDS: LEVODOPA PO SCH ×3 (05:08→21:52)
[2016-10-23] MEDS: CARBIDOPA PO SCH ×3 (05:08→21:52)
[2016-10-23 08:40] LABS: BASO % 0.8 % (0.0-2.0); EOS # 0.4 K/uL (0.0-0.7); EOS % 6.7 % (0.0-4.0); HEMOGLOBIN 11.7 g/dL (12.0-18.0); LYMPH # 1.2 K/uL (1.0-4.3); LYMPH % 21.4 % (20.0-40.0); MEAN CELL VOLUME 92.7 fl (80.0-94.0); MEAN CORPUSCULAR HEMOGLOBIN 31.2 pg (27.0-31.0); MEAN CORPUSCULAR HGB CONC 33.7 g/dL (33.0-37.0); MEAN PLATELET VOLUME 10.3 fl (7.2-11.7); MONO # 0.3 K/uL (0.0-0.8); MONO % 6.1 % (0.0-10.0); NEUT # 3.7 K/uL (1.8-7.0); NRBC % 0.1 % (0.0-0.0); RBC 3.74 Mil/uL (4.40-5.90); RED CELL DISTRIBUTION WIDTH 13.9 % (11.5-14.5); WHITE BLOOD COUNT 5.7 K/uL (4.8-10.8)
[2016-10-23 08:48] LABS: ALBUMIN 3.2 g/dL (3.5-5.0); ALT/SGPT 12 U/L (21-72); AST/SGOT 25 U/L (17-59); BLOOD UREA NITROGEN 19 mg/dl (9-20); CALCIUM 9.1 mg/dL (8.4-10.2); GFR AFRICAN-AMERICAN > 60; GFR NON-AFRICAN AMERICAN > 60
--- NOTE | 2016-10-23 08:57 | CP.PCM.PN ---
Subjective - Date & Time of Evaluation Date of Evaluation: 10/23/16 Time of Evaluation: 08:51 - Subjective Subjective: Interim EMR entries noted. Transferred to ICU on 10/21 because of leukocytosis with lactic acidosis/ hypotension. A chest x-ray done at that time showed increased BV markings with poor inspiration and rotation. CP angles appeared clear, no consolidation seen. A linear shadow may represent a small amount of fluid in the minor fissure of the right lung. He had been given parenteral fluid resuscitation and antibiotics for suspected septic shock. No definite source of infection has been identified, but he has improved clinically and lab-alex. This AM he is complaining only of weakness in the RUE 'for the past two months'. He does appear comfortable, is conversant and follows simple commands. Neck is mildly stiff, trachea is midline, no visible JVD. No dullness on percussion of the anterior chest wall. No subcut emphysema palpated. No cervical or axillary lymphadenopathy is palpated. Breath sounds are present bilaterally with dry dependant rales in both lower lobes. No wheezing or bronchial breathing. No rub. Few dependant sonorous rhonchi. Heart sounds are distant and the rhythm is irregular. No cyanosis or dependant edema. Suspect improved sepsis syndrome (source not identified) with Parkinson's disease and autonomic dysfunction. I will ask for a repeat CXR to be sure there is no current source of infection in the chest. Clinically he does not appear to have an ongoing pneumonic process. Continued antibiotic therapy as per ID. Objective - Vital Signs/Intake and Output Vital Signs (last 24 hours): Temp Pulse Resp BP Pulse Ox 97.5 F L 66 19 137/73 97 10/23/16 08:00 10/23/16 08:00 10/23/16 08:00 10/23/16 08:00 10/23/16 08:00 Intake and Output: 10/22/16 10/23/16 23:59 11:59 Intake Total 1150 700 Output Total 1000 1400 Balance 150 -700 - Medications Medications: Current Medications Acetaminophen (Tylenol 325mg Tab) 650 mg PO Q6 PRN PRN Reason: Pain, Mild (1-3) Last Admin: 10/22/16 20:55 Dose: 650 mg Benzocaine/Menthol (Cepacol Sore Throat) 1 morro PO Q3 PRN PRN Reason: Sore Throat Last Admin: 10/20/16 19:26 Dose: 1 morro Bethanechol Chloride (Urecholine) 50 mg PO TID [facility] Last Admin: 10/22/16 16:47 Dose: 50 mg Carbidopa/Levodopa (Rytary Er 48.75 Mg-195 Mg Cap) 1 cap PO TID@0500,1300,2100 [facility] Last Admin: 10/23/16 05:08 Dose: 1 cap Fluocinonide (Lidex 0.05% Oint) 1 applic TOP BID [facility] Last Admin: 10/22/16 16:47 Dose: 1 appl Metronidazole (Flagyl 500mg/100ml Ns) 100 mls @ 100 mls/hr IVPB Q8 [facility] Last Admin: 10/23/16 00:19 Dose: 100 mls/hr Aztreonam 1 gm/ Sodium (Chloride) 100 mls @ 100 mls/hr IVPB Q8 [facility] Last Admin: 10/23/16 00:18 Dose: 100 mls/hr Vancomycin HCl 1 gm/ Sodium (Chloride) 250 mls @ 166.667 mls/hr IVPB DAILY [facility] Last Admin: 10/22/16 09:03 Dose: 166.667 mls/hr Magnesium Hydroxide (Milk Of Magnesia) 30 ml PO DAILY PRN PRN Reason: Constipation Last Admin: 10/18/16 17:00 Dose: 30 ml Midodrine (Proamatine) 10 mg PO TID [facility] Last Admin: 10/22/16 17:35 Dose: 10 mg Nystatin (Nystop Topical Powder) 1 applic TOP TID [facility] Last Admin: 10/22/16 16:48 Dose: 1 applic Pantoprazole Sodium (Protonix Ec Tab) 40 mg PO DAILY [facility] - Labs Labs: 10/23/16 08:18 10/23/16 08:18 Assessment and Plan (1) Opacity of lung on imaging study Status: Suspected
[2016-10-23] MEDS: Bethanechol 50 MG TAB PO SCH ×3 (09:00→17:04)
[2016-10-23] MEDS: Pantoprazole 40 mg EC Tab PO SCH (09:19)
--- NOTE | 2016-10-23 10:36 | CP.PCM.PN ---
Subjective - Date & Time of Evaluation Date of Evaluation: 10/23/16 Time of Evaluation: 10:34 - Subjective Subjective: alert verbal Objective - Vital Signs/Intake and Output Vital Signs (last 24 hours): Temp Pulse Resp BP Pulse Ox 97.5 F L 66 19 137/73 97 10/23/16 08:00 10/23/16 08:00 10/23/16 08:00 10/23/16 08:00 10/23/16 08:00 Intake and Output: 10/23/16 10/23/16 06:59 18:59 Intake Total 1850 Output Total 2400 Balance -550 - Medications Medications: Current Medications Acetaminophen (Tylenol 325mg Tab) 650 mg PO Q6 PRN PRN Reason: Pain, Mild (1-3) Last Admin: 10/22/16 20:55 Dose: 650 mg Benzocaine/Menthol (Cepacol Sore Throat) 1 morro PO Q3 PRN PRN Reason: Sore Throat Last Admin: 10/20/16 19:26 Dose: 1 morro Bethanechol Chloride (Urecholine) 50 mg PO TID [facility] Last Admin: 10/22/16 16:47 Dose: 50 mg Carbidopa/Levodopa (Rytary Er 48.75 Mg-195 Mg Cap) 1 cap PO TID@0500,1300,2100 [facility] Last Admin: 10/23/16 05:08 Dose: 1 cap Fluocinonide (Lidex 0.05% Oint) 1 applic TOP BID [facility] Last Admin: 10/23/16 09:17 Dose: 1 appl Metronidazole (Flagyl 500mg/100ml Ns) 100 mls @ 100 mls/hr IVPB Q8 [facility] Last Admin: 10/23/16 00:19 Dose: 100 mls/hr Aztreonam 1 gm/ Sodium (Chloride) 100 mls @ 100 mls/hr IVPB Q8 [facility] Last Admin: 10/23/16 09:13 Dose: 100 mls/hr Vancomycin HCl 1 gm/ Sodium (Chloride) 250 mls @ 166.667 mls/hr IVPB DAILY [facility] Last Admin: 10/22/16 09:03 Dose: 166.667 mls/hr Magnesium Hydroxide (Milk Of Magnesia) 30 ml PO DAILY PRN PRN Reason: Constipation Last Admin: 10/18/16 17:00 Dose: 30 ml Midodrine (Proamatine) 10 mg PO TID [facility] Last Admin: 10/23/16 09:19 Dose: 10 mg Nystatin (Nystop Topical Powder) 1 applic TOP TID [facility] Last Admin: 10/23/16 09:18 Dose: 1 applic Pantoprazole Sodium (Protonix Ec Tab) 40 mg PO DAILY [facility] Last Admin: 10/23/16 09:19 Dose: 40 mg - Labs Labs: 10/23/16 08:18 10/23/16 08:18 - Head Exam Head Exam: NORMAL INSPECTION - Respiratory Exam Respiratory Exam: Clear to Ausculation Bilateral - Cardiovascular Exam Cardiovascular Exam: Irregular Rhythm - GI/Abdominal Exam GI & Abdominal Exam: Normal Bowel Sounds - Extremities Exam Extremities Exam: Normal Inspection Assessment and Plan - Assessment and Plan (Free Text) Assessment: Hypotension resolved HR in 70's Stable from Cardiac Standpoint
--- NOTE | 2016-10-23 14:00 | CP.PCM.PN ---
Subjective - Date & Time of Evaluation Date of Evaluation: 10/23/16 Time of Evaluation: 08:00 - Subjective Subjective: improving on I rx all cultures neg thus far Objective - Vital Signs/Intake and Output Vital Signs (last 24 hours): Temp Pulse Resp BP Pulse Ox 97.5 F L 79 18 114/71 97 10/23/16 08:00 10/23/16 10:00 10/23/16 10:00 10/23/16 10:00 10/23/16 10:00 Intake and Output: 10/23/16 10/23/16 06:59 18:59 Intake Total 1850 500 Output Total 2400 Balance -550 500 - Medications Medications: Current Medications Acetaminophen (Tylenol 325mg Tab) 650 mg PO Q6 PRN PRN Reason: Pain, Mild (1-3) Last Admin: 10/22/16 20:55 Dose: 650 mg Benzocaine/Menthol (Cepacol Sore Throat) 1 morro PO Q3 PRN PRN Reason: Sore Throat Last Admin: 10/20/16 19:26 Dose: 1 morro Bethanechol Chloride (Urecholine) 50 mg PO TID [facility] Last Admin: 10/23/16 12:19 Dose: 50 mg Carbidopa/Levodopa (Rytary Er 48.75 Mg-195 Mg Cap) 1 cap PO TID@0500,1300,2100 [facility] Last Admin: 10/23/16 12:18 Dose: 1 cap Fluocinonide (Lidex 0.05% Oint) 1 applic TOP BID [facility] Last Admin: 10/23/16 09:17 Dose: 1 appl Metronidazole (Flagyl 500mg/100ml Ns) 100 mls @ 100 mls/hr IVPB Q8 [facility] Last Admin: 10/23/16 09:00 Dose: 100 mls/hr Aztreonam 1 gm/ Sodium (Chloride) 100 mls @ 100 mls/hr IVPB Q8 [facility] Last Admin: 10/23/16 09:13 Dose: 100 mls/hr Vancomycin HCl 1 gm/ Sodium (Chloride) 250 mls @ 166.667 mls/hr IVPB DAILY [facility] Last Admin: 10/23/16 12:19 Dose: 166.667 mls/hr Magnesium Hydroxide (Milk Of Magnesia) 30 ml PO DAILY PRN PRN Reason: Constipation Last Admin: 10/18/16 17:00 Dose: 30 ml Midodrine (Proamatine) 10 mg PO TID [facility] Last Admin: 10/23/16 12:18 Dose: 10 mg Nystatin (Nystop Topical Powder) 1 applic TOP TID [facility] Last Admin: 10/23/16 12:17 Dose: 1 applic Pantoprazole Sodium (Protonix Ec Tab) 40 mg PO DAILY [facility] Last Admin: 10/23/16 09:19 Dose: 40 mg - Labs Labs: 10/23/16 08:18 10/23/16 08:18 - Constitutional Appears: Non-toxic, Cachectic, Chronically Ill - Head Exam Head Exam: NORMOCEPHALIC - Eye Exam Eye Exam: PERRL. absent: Scleral icterus - ENT Exam ENT Exam: Mucous Membranes Dry, Normal External Ear Exam - Neck Exam Neck Exam: absent: Lymphadenopathy, Thyromegaly - Respiratory Exam Respiratory Exam: Decreased Breath Sounds, Clear to Ausculation Bilateral - Cardiovascular Exam Cardiovascular Exam: REGULAR RHYTHM, +S1, +S2 - GI/Abdominal Exam GI & Abdominal Exam: Distended, Soft. absent: Tenderness - Rectal Exam Rectal Exam: Deferred - Exam Exam: NORMAL INSPECTION - Extremities Exam Extremities Exam: absent: Calf Tenderness, Pedal Edema - Back Exam Back Exam: absent: CVA tenderness (L), CVA tenderness (R) - Neurological Exam Neurological Exam: Alert, Awake, Oriented x3 - Psychiatric Exam Psychiatric exam: Normal Mood Assessment and Plan (1) Parkinsonism Status: Acute (2) Bradyarrhythmia Status: Acute
--- NOTE | 2016-10-23 16:45 | CP.CCUPN ---
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 Other VS; 130/ 70, HR 79, RR 17, 100% on RA. 24H I/O's = 2480/2400 ROS: as above, no other obtainable pertinent negs or positives on 10 system review. PMFSH: all nursing and historical notes reviewed, no new pertinent data relevant to current problems. No other distress noted: EXAM- HEENT: no icterus, pupils equal and reactive NECK: no visible JVD, supple, carotids equal upstroke bilat/no bruits CHEST: decreased BS bases, no wheezes audible HEART: regular, distant, S1S2, no murmur audible, no rubs. ABD: soft, no increased distention, no focal tenderness, no HSM. BS hypoactive EXT: no leg edema, no peripheral/ digital cyanosis, no calf tenderness or palpable cords, distal pulses intact and symmetrical NEURO: no gross focal motor deficits SKIN: no rashes LABS: WBC= 12.0 HGB= 14.3 PLTs= 277K Na= 141 K= 4.1 HCO3= 24 BUN/Cr= 19/0.7 BS=91 ASSESSMENT / PLAN: 1. 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 Repeat lactate levels have normalized. Consider increasing Midodrine dosing to bid. 2. On empiric Vanco / Azactam / Flagyl 3. IVFs stopped due to high normal K. Bloodwork repeated today and all parameters acceptable. 4. Will transfer to regular med / surg bed for further mgmt and observation.
--- NOTE | 2016-10-23 21:30 | CP.PCM.PN ---
Subjective - Date & Time of Evaluation Date of Evaluation: 10/23/16 Time of Evaluation: 22:22 - Subjective Subjective: above noted Objective - Vital Signs/Intake and Output Vital Signs (last 24 hours): Temp Pulse Resp BP Pulse Ox 97.8 F 80 19 162/87 H 80 L 10/23/16 18:30 10/23/16 18:30 10/23/16 18:30 10/23/16 18:30 10/23/16 18:30 Intake and Output: 10/23/16 10/24/16 18:59 06:59 Intake Total 950 Output Total 1200 Balance -250 - Medications Medications: Current Medications Acetaminophen (Tylenol 325mg Tab) 650 mg PO Q6 PRN PRN Reason: Pain, Mild (1-3) Last Admin: 10/22/16 20:55 Dose: 650 mg Benzocaine/Menthol (Cepacol Sore Throat) 1 morro PO Q3 PRN PRN Reason: Sore Throat Last Admin: 10/20/16 19:26 Dose: 1 morro Bethanechol Chloride (Urecholine) 50 mg PO TID [facility] Last Admin: 10/23/16 17:04 Dose: 50 mg Carbidopa/Levodopa (Rytary Er 48.75 Mg-195 Mg Cap) 1 cap PO TID@0500,1300,2100 [facility] Last Admin: 10/23/16 12:18 Dose: 1 cap Fluocinonide (Lidex 0.05% Oint) 1 applic TOP BID [facility] Last Admin: 10/23/16 17:06 Dose: 1 appl Metronidazole (Flagyl 500mg/100ml Ns) 100 mls @ 100 mls/hr IVPB Q8 [facility] Last Admin: 10/23/16 17:02 Dose: 100 mls/hr Aztreonam 1 gm/ Sodium (Chloride) 100 mls @ 100 mls/hr IVPB Q8 [facility] Last Admin: 10/23/16 17:06 Dose: 100 mls/hr Vancomycin HCl 1 gm/ Sodium (Chloride) 250 mls @ 166.667 mls/hr IVPB DAILY [facility] Last Admin: 10/23/16 12:19 Dose: 166.667 mls/hr Magnesium Hydroxide (Milk Of Magnesia) 30 ml PO DAILY PRN PRN Reason: Constipation Last Admin: 10/18/16 17:00 Dose: 30 ml Midodrine (Proamatine) 10 mg PO TID [facility] Last Admin: 10/23/16 17:05 Dose: 10 mg Nystatin (Nystop Topical Powder) 1 applic TOP TID [facility] Last Admin: 10/23/16 17:05 Dose: 1 applic Pantoprazole Sodium (Protonix Ec Tab) 40 mg PO DAILY [facility] Last Admin: 10/23/16 09:19 Dose: 40 mg - Labs Labs: 10/23/16 08:18 10/23/16 08:18 - Respiratory Exam Respiratory Exam: NORMAL BREATHING PATTERN - Cardiovascular Exam Cardiovascular Exam: Irregular Rhythm, REGULAR RHYTHM - GI/Abdominal Exam GI & Abdominal Exam: Normal Bowel Sounds Assessment and Plan - Assessment and Plan (Free Text) Assessment: Bradycardia Hypotenson Sepsis source? Autonomic dysfunction? ABX IVF Midodrine ID Cardiology MSA Parkinsons DX Lilia Vieira PT Rytary Midodrine Disposition?? awaiting transfer to [place] Pt has medical decision making capacity but is financially vulnerable and would benefit from legal guardianship Court and Social service involved Pt is [place] WW[place] Lethargy?? improved Baclofen d/c Infection resolved Reconsult Neuro R shoulder pain Dec ROM xrays subluxation Ultram PRN PT Gastroentritis? 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
[2016-10-24] MEDS: Aztreonam 1 GM in Sodium Chloride 0.9% 100 ML IVPB SCH ×3 (00:15→16:07)
[2016-10-24] MEDS: metroNIDAZOLE 500mg/100ml NS 100 ML IVPB SCH ×3 (01:37→17:20)
[2016-10-24] MEDS: CARBIDOPA PO SCH ×3 (05:24→21:11)
[2016-10-24] MEDS: LEVODOPA PO SCH ×3 (05:24→21:11)
[2016-10-24] MEDS: Bethanechol 50 MG TAB PO SCH ×3 (09:14→16:08)
[2016-10-24] MEDS: Pantoprazole 40 mg EC Tab PO SCH (09:14)
[2016-10-24] MEDS: Benzocaine/Menthol (Cepacol) Lozenge PO PRN ×2 (10:37→19:29)
--- NOTE | 2016-10-24 17:32 | CP.PCM.PN ---
Subjective - Date & Time of Evaluation Date of Evaluation: 10/24/16 Time of Evaluation: 09:00 - Subjective Subjective: back on 6 culture of urine- mixed sandra cont rx as per dr Najera Objective - Vital Signs/Intake and Output Vital Signs (last 24 hours): Temp Pulse Resp BP Pulse Ox 97.4 F L 73 20 162/88 H 99 10/24/16 17:14 10/24/16 17:14 10/24/16 17:14 10/24/16 17:14 10/24/16 17:14 - Medications Medications: Current Medications Acetaminophen (Tylenol 325mg Tab) 650 mg PO Q6 PRN PRN Reason: Pain, Mild (1-3) Last Admin: 10/22/16 20:55 Dose: 650 mg Benzocaine/Menthol (Cepacol Sore Throat) 1 morro PO Q3 PRN PRN Reason: Sore Throat Last Admin: 10/24/16 10:37 Dose: 1 morro Bethanechol Chloride (Urecholine) 50 mg PO TID [facility] Last Admin: 10/24/16 16:08 Dose: 50 mg Carbidopa/Levodopa (Rytary Er 48.75 Mg-195 Mg Cap) 1 cap PO TID@0500,1300,2100 [facility] Last Admin: 10/24/16 13:33 Dose: 1 cap Fluocinonide (Lidex 0.05% Oint) 1 applic TOP BID [facility] Last Admin: 10/24/16 16:09 Dose: 1 appl Metronidazole (Flagyl 500mg/100ml Ns) 100 mls @ 100 mls/hr IVPB Q8 [facility] Last Admin: 10/24/16 17:20 Dose: 100 mls/hr Aztreonam 1 gm/ Sodium (Chloride) 100 mls @ 100 mls/hr IVPB Q8 [facility] Last Admin: 10/24/16 16:07 Dose: 100 mls/hr Vancomycin HCl 1 gm/ Sodium (Chloride) 250 mls @ 166.667 mls/hr IVPB DAILY [facility] Last Admin: 10/24/16 11:42 Dose: 166.667 mls/hr Magnesium Hydroxide (Milk Of Magnesia) 30 ml PO DAILY PRN PRN Reason: Constipation Last Admin: 10/18/16 17:00 Dose: 30 ml Midodrine (Proamatine) 10 mg PO TID [facility] Last Admin: 10/24/16 16:09 Dose: 10 mg Nystatin (Nystop Topical Powder) 1 applic TOP TID [facility] Last Admin: 10/24/16 16:09 Dose: 1 applic Pantoprazole Sodium (Protonix Ec Tab) 40 mg PO DAILY [facility] Last Admin: 10/24/16 09:14 Dose: 40 mg - Labs Labs: 10/23/16 08:18 10/23/16 08:18 Assessment and Plan (1) Parkinsonism Status: Acute (2) Bradyarrhythmia Status: Acute
--- NOTE | 2016-10-24 21:08 | CP.PCM.PN ---
Subjective - Date & Time of Evaluation Date of Evaluation: 10/24/16 Time of Evaluation: 22:22 - Subjective Subjective: Doing well Objective - Vital Signs/Intake and Output Vital Signs (last 24 hours): Temp Pulse Resp BP Pulse Ox 97.4 F L 73 20 162/88 H 99 10/24/16 17:14 10/24/16 17:14 10/24/16 17:14 10/24/16 17:14 10/24/16 17:14 - Medications Medications: Current Medications Acetaminophen (Tylenol 325mg Tab) 650 mg PO Q6 PRN PRN Reason: Pain, Mild (1-3) Last Admin: 10/22/16 20:55 Dose: 650 mg Benzocaine/Menthol (Cepacol Sore Throat) 1 morro PO Q3 PRN PRN Reason: Sore Throat Last Admin: 10/24/16 19:29 Dose: 1 morro Bethanechol Chloride (Urecholine) 50 mg PO TID [facility] Last Admin: 10/24/16 16:08 Dose: 50 mg Carbidopa/Levodopa (Rytary Er 48.75 Mg-195 Mg Cap) 1 cap PO TID@0500,1300,2100 [facility] Last Admin: 10/24/16 13:33 Dose: 1 cap Fluocinonide (Lidex 0.05% Oint) 1 applic TOP BID [facility] Last Admin: 10/24/16 16:09 Dose: 1 appl Metronidazole (Flagyl 500mg/100ml Ns) 100 mls @ 100 mls/hr IVPB Q8 [facility] Last Admin: 10/24/16 17:20 Dose: 100 mls/hr Aztreonam 1 gm/ Sodium (Chloride) 100 mls @ 100 mls/hr IVPB Q8 [facility] Last Admin: 10/24/16 16:07 Dose: 100 mls/hr Vancomycin HCl 1 gm/ Sodium (Chloride) 250 mls @ 166.667 mls/hr IVPB DAILY [facility] Last Admin: 10/24/16 11:42 Dose: 166.667 mls/hr Magnesium Hydroxide (Milk Of Magnesia) 30 ml PO DAILY PRN PRN Reason: Constipation Last Admin: 10/18/16 17:00 Dose: 30 ml Midodrine (Proamatine) 10 mg PO TID [facility] Last Admin: 10/24/16 16:09 Dose: 10 mg Nystatin (Nystop Topical Powder) 1 applic TOP TID [facility] Last Admin: 10/24/16 16:09 Dose: 1 applic Pantoprazole Sodium (Protonix Ec Tab) 40 mg PO DAILY [facility] Last Admin: 10/24/16 09:14 Dose: 40 mg - Labs Labs: 10/23/16 08:18 10/23/16 08:18 - Respiratory Exam Respiratory Exam: NORMAL BREATHING PATTERN - Cardiovascular Exam Cardiovascular Exam: Irregular Rhythm, REGULAR RHYTHM - GI/Abdominal Exam GI & Abdominal Exam: Normal Bowel Sounds Assessment and Plan - Assessment and Plan (Free Text) Assessment: Bradycardia Hypotenson chronic A-fib Sepsis ? Autonomic dysfunction? ABX IVF Midodrine ID Cardiology MSA Parkinsons DX Lilia Vieira PT Rytary Midodrine Disposition?? awaiting transfer to [place] Pt has medical decision making capacity but is financially vulnerable and would benefit from legal guardianship Court and Social service involved Pt is [place] WW[place] Lethargy?? improved Baclofen d/c Infection resolved Reconsult Neuro R shoulder pain Dec ROM xrays subluxation Ultram PRN PT Gastroentritis? 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
[2016-10-25] MEDS: Aztreonam 1 GM in Sodium Chloride 0.9% 100 ML IVPB SCH ×3 (00:31→16:11)
[2016-10-25] MEDS: metroNIDAZOLE 500mg/100ml NS 100 ML IVPB SCH ×3 (02:00→16:11)
[2016-10-25] MEDS: CARBIDOPA PO SCH ×3 (05:32→21:05)
[2016-10-25] MEDS: LEVODOPA PO SCH ×3 (05:32→21:05)
[2016-10-25] MEDS: Pantoprazole 40 mg EC Tab PO SCH (08:50)
[2016-10-25] MEDS: Bethanechol 50 MG TAB PO SCH ×3 (08:50→16:12)
--- NOTE | 2016-10-25 12:49 | CP.PCM.PN ---
Subjective - Date & Time of Evaluation Date of Evaluation: 10/25/16 Time of Evaluation: 12:47 - Subjective Subjective: Currently without GI complaints Objective - Vital Signs/Intake and Output Vital Signs (last 24 hours): Temp Pulse Resp BP Pulse Ox 97.7 F 67 20 112/67 96 10/25/16 08:22 10/25/16 08:22 10/25/16 08:22 10/25/16 08:22 10/25/16 08:22 - Medications Medications: Current Medications Acetaminophen (Tylenol 325mg Tab) 650 mg PO Q6 PRN PRN Reason: Pain, Mild (1-3) Last Admin: 10/22/16 20:55 Dose: 650 mg Benzocaine/Menthol (Cepacol Sore Throat) 1 morro PO Q3 PRN PRN Reason: Sore Throat Last Admin: 10/24/16 19:29 Dose: 1 morro Bethanechol Chloride (Urecholine) 50 mg PO TID [facility] Last Admin: 10/25/16 12:18 Dose: 50 mg Carbidopa/Levodopa (Rytary Er 48.75 Mg-195 Mg Cap) 1 cap PO TID@0500,1300,2100 [facility] Last Admin: 10/25/16 12:19 Dose: 1 cap Fluocinonide (Lidex 0.05% Oint) 1 applic TOP BID [facility] Last Admin: 10/25/16 08:50 Dose: 1 appl Metronidazole (Flagyl 500mg/100ml Ns) 100 mls @ 100 mls/hr IVPB Q8 [facility] Last Admin: 10/25/16 08:48 Dose: 100 mls/hr Aztreonam 1 gm/ Sodium (Chloride) 100 mls @ 100 mls/hr IVPB Q8 [facility] Last Admin: 10/25/16 08:48 Dose: 100 mls/hr Vancomycin HCl 1 gm/ Sodium (Chloride) 250 mls @ 166.667 mls/hr IVPB DAILY [facility] Last Admin: 10/25/16 08:48 Dose: 166.667 mls/hr Magnesium Hydroxide (Milk Of Magnesia) 30 ml PO DAILY PRN PRN Reason: Constipation Last Admin: 10/18/16 17:00 Dose: 30 ml Midodrine (Proamatine) 10 mg PO TID [facility] Last Admin: 10/25/16 12:19 Dose: 10 mg Nystatin (Nystop Topical Powder) 1 applic TOP TID [facility] Last Admin: 10/25/16 12:19 Dose: 1 applic Pantoprazole Sodium (Protonix Ec Tab) 40 mg PO DAILY [facility] Last Admin: 10/25/16 08:50 Dose: 40 mg - Labs Labs: 10/23/16 08:18 10/23/16 08:18 - Head Exam Head Exam: ATRAUMATIC - Eye Exam Eye Exam: Normal appearance - ENT Exam ENT Exam: Normal Exam - Neck Exam Neck Exam: Full ROM - Respiratory Exam Respiratory Exam: NORMAL BREATHING PATTERN - Cardiovascular Exam Cardiovascular Exam: REGULAR RHYTHM, +S1, +S2 - GI/Abdominal Exam GI & Abdominal Exam: Normal Bowel Sounds. absent: Tenderness Assessment and Plan (1) GI bleeding Status: Acute (2) Gastroenteritis Assessment & Plan: Gastroenteritis resolved. Status: Acute
--- NOTE | 2016-10-25 13:45 | CP.PCM.PN ---
Subjective - Date & Time of Evaluation Date of Evaluation: 10/25/16 Time of Evaluation: 08:00 - Subjective Subjective: no new complaints Objective - Vital Signs/Intake and Output Vital Signs (last 24 hours): Temp Pulse Resp BP Pulse Ox 97.7 F 67 20 112/67 96 10/25/16 08:22 10/25/16 08:22 10/25/16 08:22 10/25/16 08:22 10/25/16 08:22 - Medications Medications: Current Medications Acetaminophen (Tylenol 325mg Tab) 650 mg PO Q6 PRN PRN Reason: Pain, Mild (1-3) Last Admin: 10/22/16 20:55 Dose: 650 mg Benzocaine/Menthol (Cepacol Sore Throat) 1 morro PO Q3 PRN PRN Reason: Sore Throat Last Admin: 10/24/16 19:29 Dose: 1 morro Bethanechol Chloride (Urecholine) 50 mg PO TID [facility] Last Admin: 10/25/16 12:18 Dose: 50 mg Carbidopa/Levodopa (Rytary Er 48.75 Mg-195 Mg Cap) 1 cap PO TID@0500,1300,2100 [facility] Last Admin: 10/25/16 12:19 Dose: 1 cap Fluocinonide (Lidex 0.05% Oint) 1 applic TOP BID [facility] Last Admin: 10/25/16 08:50 Dose: 1 appl Metronidazole (Flagyl 500mg/100ml Ns) 100 mls @ 100 mls/hr IVPB Q8 [facility] Last Admin: 10/25/16 08:48 Dose: 100 mls/hr Aztreonam 1 gm/ Sodium (Chloride) 100 mls @ 100 mls/hr IVPB Q8 [facility] Last Admin: 10/25/16 08:48 Dose: 100 mls/hr Vancomycin HCl 1 gm/ Sodium (Chloride) 250 mls @ 166.667 mls/hr IVPB DAILY [facility] Last Admin: 10/25/16 08:48 Dose: 166.667 mls/hr Magnesium Hydroxide (Milk Of Magnesia) 30 ml PO DAILY PRN PRN Reason: Constipation Last Admin: 10/18/16 17:00 Dose: 30 ml Midodrine (Proamatine) 10 mg PO TID [facility] Last Admin: 10/25/16 12:19 Dose: 10 mg Nystatin (Nystop Topical Powder) 1 applic TOP TID [facility] Last Admin: 10/25/16 12:19 Dose: 1 applic Pantoprazole Sodium (Protonix Ec Tab) 40 mg PO DAILY [facility] Last Admin: 10/25/16 08:50 Dose: 40 mg - Labs Labs: 10/23/16 08:18 10/23/16 08:18 - Constitutional Appears: Non-toxic, Chronically Ill - Head Exam Head Exam: NORMOCEPHALIC - Eye Exam Eye Exam: absent: Scleral icterus - ENT Exam ENT Exam: Mucous Membranes Dry - Neck Exam Neck Exam: absent: Lymphadenopathy - Respiratory Exam Respiratory Exam: Decreased Breath Sounds, Clear to Ausculation Bilateral - Cardiovascular Exam Cardiovascular Exam: REGULAR RHYTHM Assessment and Plan (1) Parkinsonism Status: Acute (2) Bradyarrhythmia Status: Acute
--- NOTE | 2016-10-25 19:05 | CP.PCM.PN ---
Subjective - Date & Time of Evaluation Date of Evaluation: 10/25/16 Time of Evaluation: 22:22 - Subjective Subjective: Doing well Objective - Vital Signs/Intake and Output Vital Signs (last 24 hours): Temp Pulse Resp BP Pulse Ox 97.7 F 79 20 143/80 98 10/25/16 16:48 10/25/16 16:48 10/25/16 16:48 10/25/16 16:48 10/25/16 16:48 - Medications Medications: Current Medications Acetaminophen (Tylenol 325mg Tab) 650 mg PO Q6 PRN PRN Reason: Pain, Mild (1-3) Last Admin: 10/22/16 20:55 Dose: 650 mg Benzocaine/Menthol (Cepacol Sore Throat) 1 morro PO Q3 PRN PRN Reason: Sore Throat Last Admin: 10/24/16 19:29 Dose: 1 morro Bethanechol Chloride (Urecholine) 50 mg PO TID [facility] Last Admin: 10/25/16 16:12 Dose: 50 mg Carbidopa/Levodopa (Rytary Er 48.75 Mg-195 Mg Cap) 1 cap PO TID@0500,1300,2100 [facility] Last Admin: 10/25/16 12:19 Dose: 1 cap Fluocinonide (Lidex 0.05% Oint) 1 applic TOP BID [facility] Last Admin: 10/25/16 16:11 Dose: 1 appl Metronidazole (Flagyl 500mg/100ml Ns) 100 mls @ 100 mls/hr IVPB Q8 [facility] Last Admin: 10/25/16 16:11 Dose: 100 mls/hr Aztreonam 1 gm/ Sodium (Chloride) 100 mls @ 100 mls/hr IVPB Q8 [facility] Last Admin: 10/25/16 16:11 Dose: 100 mls/hr Vancomycin HCl 1 gm/ Sodium (Chloride) 250 mls @ 166.667 mls/hr IVPB DAILY [facility] Last Admin: 10/25/16 08:48 Dose: 166.667 mls/hr Magnesium Hydroxide (Milk Of Magnesia) 30 ml PO DAILY PRN PRN Reason: Constipation Last Admin: 10/18/16 17:00 Dose: 30 ml Midodrine (Proamatine) 10 mg PO TID [facility] Last Admin: 10/25/16 16:12 Dose: 10 mg Nystatin (Nystop Topical Powder) 1 applic TOP TID [facility] Last Admin: 10/25/16 16:11 Dose: 1 applic Pantoprazole Sodium (Protonix Ec Tab) 40 mg PO DAILY [facility] Last Admin: 10/25/16 08:50 Dose: 40 mg - Labs Labs: 10/23/16 08:18 10/23/16 08:18 - Respiratory Exam Respiratory Exam: NORMAL BREATHING PATTERN - Cardiovascular Exam Cardiovascular Exam: Irregular Rhythm, REGULAR RHYTHM - GI/Abdominal Exam GI & Abdominal Exam: Normal Bowel Sounds Assessment and Plan - Assessment and Plan (Free Text) Assessment: Bradycardia Hypotenson chronic A-fib Sepsis ? Autonomic dysfunction? ABX IVF Midodrine ID Cardiology MSA Parkinsons DX Lilia Vieira PT Rytary Midodrine Disposition?? awaiting transfer to [place] Pt has medical decision making capacity but is financially vulnerable and would benefit from legal guardianship Court and Social service involved Pt is [place] Lethargy?? improved Baclofen d/c Infection resolved Reconsult Neuro R shoulder pain Dec ROM xrays subluxation Ultram PRN PT Gastroentritis? 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
[2016-10-26] MEDS: Aztreonam 1 GM in Sodium Chloride 0.9% 100 ML IVPB SCH ×2 (00:34→08:18)
[2016-10-26] MEDS: metroNIDAZOLE 500mg/100ml NS 100 ML IVPB SCH ×2 (01:42→08:18)
[2016-10-26] MEDS: LEVODOPA PO SCH ×3 (04:51→22:07)
[2016-10-26] MEDS: CARBIDOPA PO SCH ×3 (04:51→22:07)
[2016-10-26] MEDS: Bethanechol 50 MG TAB PO SCH ×3 (08:17→16:12)
[2016-10-26] MEDS: Pantoprazole 40 mg EC Tab PO SCH (08:18)
--- NOTE | 2016-10-26 12:32 | CP.PCM.PN ---
Subjective - Date & Time of Evaluation Date of Evaluation: 10/26/16 Time of Evaluation: 07:00 - Subjective Subjective: + MRSA nares cont bactroban Objective - Vital Signs/Intake and Output Vital Signs (last 24 hours): Temp Pulse Resp BP Pulse Ox 97.9 F 67 20 107/58 L 95 10/26/16 08:14 10/26/16 08:14 10/26/16 08:14 10/26/16 08:14 10/26/16 08:14 - Medications Medications: Current Medications Acetaminophen (Tylenol 325mg Tab) 650 mg PO Q6 PRN PRN Reason: Pain, Mild (1-3) Last Admin: 10/22/16 20:55 Dose: 650 mg Benzocaine/Menthol (Cepacol Sore Throat) 1 morro PO Q3 PRN PRN Reason: Sore Throat Last Admin: 10/24/16 19:29 Dose: 1 morro Bethanechol Chloride (Urecholine) 50 mg PO TID [facility] Last Admin: 10/26/16 08:17 Dose: 50 mg Carbidopa/Levodopa (Rytary Er 48.75 Mg-195 Mg Cap) 1 cap PO TID@0500,1300,2100 [facility] Last Admin: 10/26/16 04:51 Dose: 1 cap Fluocinonide (Lidex 0.05% Oint) 1 applic TOP BID [facility] Last Admin: 10/26/16 08:17 Dose: 1 appl Metronidazole (Flagyl 500mg/100ml Ns) 100 mls @ 100 mls/hr IVPB Q8 [facility] Last Admin: 10/26/16 08:18 Dose: 100 mls/hr Aztreonam 1 gm/ Sodium (Chloride) 100 mls @ 100 mls/hr IVPB Q8 [facility] Last Admin: 10/26/16 08:18 Dose: 100 mls/hr Vancomycin HCl 1 gm/ Sodium (Chloride) 250 mls @ 166.667 mls/hr IVPB DAILY [facility] Last Admin: 10/26/16 08:19 Dose: 166.667 mls/hr Magnesium Hydroxide (Milk Of Magnesia) 30 ml PO DAILY PRN PRN Reason: Constipation Last Admin: 10/18/16 17:00 Dose: 30 ml Midodrine (Proamatine) 10 mg PO TID [facility] Last Admin: 10/26/16 08:17 Dose: 10 mg Nystatin (Nystop Topical Powder) 1 applic TOP TID [facility] Last Admin: 10/26/16 08:17 Dose: 1 applic Pantoprazole Sodium (Protonix Ec Tab) 40 mg PO DAILY [facility] Last Admin: 10/26/16 08:18 Dose: 40 mg - Labs Labs: 10/23/16 08:18 10/23/16 08:18 - Constitutional Appears: Confused, Chronically Ill - Head Exam Head Exam: NORMOCEPHALIC - Eye Exam Eye Exam: absent: Scleral icterus - ENT Exam ENT Exam: Mucous Membranes Dry - Neck Exam Neck Exam: absent: Lymphadenopathy - Respiratory Exam Respiratory Exam: Decreased Breath Sounds, Clear to Ausculation Bilateral - Cardiovascular Exam Cardiovascular Exam: REGULAR RHYTHM, +S1, +S2 - GI/Abdominal Exam GI & Abdominal Exam: Distended, Soft. absent: Tenderness - Rectal Exam Rectal Exam: Deferred - Exam Exam: NORMAL INSPECTION Assessment and Plan (1) Parkinsonism Status: Acute (2) Bradyarrhythmia Status: Acute
[2016-10-27] MEDS: CARBIDOPA PO SCH ×3 (05:43→20:52)
[2016-10-27] MEDS: LEVODOPA PO SCH ×3 (05:43→20:52)
[2016-10-27] MEDS: Bethanechol 50 MG TAB PO SCH ×3 (08:49→16:22)
[2016-10-27] MEDS: Pantoprazole 40 mg EC Tab PO SCH (08:49)
--- NOTE | 2016-10-27 15:25 | CP.PCM.PN ---
Subjective - Date & Time of Evaluation Date of Evaluation: 10/27/16 Time of Evaluation: 22:22 - Subjective Subjective: Above noted Objective - Vital Signs/Intake and Output Vital Signs (last 24 hours): Temp Pulse Resp BP Pulse Ox 98.1 F 63 20 116/63 94 L 10/27/16 07:54 10/27/16 07:54 10/27/16 07:54 10/27/16 07:54 10/27/16 07:54 - Medications Medications: Current Medications Acetaminophen (Tylenol 325mg Tab) 650 mg PO Q6 PRN PRN Reason: Pain, Mild (1-3) Last Admin: 10/22/16 20:55 Dose: 650 mg Benzocaine/Menthol (Cepacol Sore Throat) 1 morro PO Q3 PRN PRN Reason: Sore Throat Last Admin: 10/24/16 19:29 Dose: 1 morro Bethanechol Chloride (Urecholine) 50 mg PO TID [facility] Last Admin: 10/27/16 12:26 Dose: 50 mg Carbidopa/Levodopa (Rytary Er 48.75 Mg-195 Mg Cap) 1 cap PO TID@0500,1300,2100 [facility] Last Admin: 10/27/16 12:25 Dose: 1 cap Fluocinonide (Lidex 0.05% Oint) 1 applic TOP BID [facility] Last Admin: 10/27/16 08:49 Dose: 1 appl Vancomycin HCl 1 gm/ Sodium (Chloride) 250 mls @ 166.667 mls/hr IVPB DAILY [facility] Last Admin: 10/27/16 08:48 Dose: 166.667 mls/hr Magnesium Hydroxide (Milk Of Magnesia) 30 ml PO DAILY PRN PRN Reason: Constipation Last Admin: 10/18/16 17:00 Dose: 30 ml Midodrine (Proamatine) 10 mg PO TID [facility] Last Admin: 10/27/16 12:25 Dose: 10 mg Mupirocin (Bactroban Ointment) 1 applic TOP BID [facility] Last Admin: 10/27/16 08:49 Dose: 1 applic Nystatin (Nystop Topical Powder) 1 applic TOP TID [facility] Last Admin: 10/27/16 12:25 Dose: 1 applic Pantoprazole Sodium (Protonix Ec Tab) 40 mg PO DAILY [facility] Last Admin: 10/27/16 08:49 Dose: 40 mg - Labs Labs: 04/12/17 08:18 10/23/16 08:18 - Respiratory Exam Respiratory Exam: NORMAL BREATHING PATTERN - Cardiovascular Exam Cardiovascular Exam: REGULAR RHYTHM - GI/Abdominal Exam GI & Abdominal Exam: Normal Bowel Sounds Assessment and Plan - Assessment and Plan (Free Text) Assessment: Bradycardia Hypotenson chronic A-fib Sepsis ? Autonomic dysfunction? ABX IVF Midodrine ID Cardiology MSA Parkinsons DX Shry Drager PT Rytary Midodrine MRSA Nares Bactroban Disposition?? awaiting transfer to [place] Pt has medical decision making capacity but is financially vulnerable and would benefit from legal guardianship Court and Social service involved Pt is [place] WW[place] Lethargy?? improved Baclofen d/c Infection resolved Reconsult Neuro R shoulder pain Dec ROM xrays subluxation Ultram PRN PT Gastroentritis? 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
[2016-10-28] MEDS: CARBIDOPA PO SCH ×3 (05:47→21:40)
[2016-10-28] MEDS: LEVODOPA PO SCH ×3 (05:47→21:40)
[2016-10-28] MEDS: Bethanechol 50 MG TAB PO SCH ×3 (08:15→16:21)
[2016-10-28] MEDS: Pantoprazole 40 mg EC Tab PO SCH (08:15)
--- NOTE | 2016-10-28 20:05 | CP.PCM.PN ---
Subjective - Date & Time of Evaluation Date of Evaluation: 10/28/16 Time of Evaluation: 22:22 - Subjective Subjective: Lower extremity weakness? Objective - Vital Signs/Intake and Output Vital Signs (last 24 hours): Temp Pulse Resp BP Pulse Ox 97.3 F L 55 L 20 131/69 98 10/28/16 16:26 10/28/16 16:26 10/28/16 16:26 10/28/16 16:26 10/28/16 16:26 Intake and Output: 10/28/16 10/29/16 18:59 06:59 Intake Total 1250 Output Total 1100 Balance 150 - Medications Medications: Current Medications Acetaminophen (Tylenol 325mg Tab) 650 mg PO Q6 PRN PRN Reason: Pain, Mild (1-3) Last Admin: 10/22/16 20:55 Dose: 650 mg Benzocaine/Menthol (Cepacol Sore Throat) 1 morro PO Q3 PRN PRN Reason: Sore Throat Last Admin: 10/24/16 19:29 Dose: 1 morro Bethanechol Chloride (Urecholine) 50 mg PO TID [facility] Last Admin: 10/28/16 16:21 Dose: 50 mg Carbidopa/Levodopa (Rytary Er 48.75 Mg-195 Mg Cap) 1 cap PO TID@0500,1300,2100 [facility] Last Admin: 10/28/16 12:06 Dose: 1 cap Fluocinonide (Lidex 0.05% Oint) 1 applic TOP BID [facility] Last Admin: 10/28/16 16:20 Dose: 1 appl Vancomycin HCl 1 gm/ Sodium (Chloride) 250 mls @ 166.667 mls/hr IVPB DAILY [facility] Last Admin: 10/28/16 08:16 Dose: 166.667 mls/hr Magnesium Hydroxide (Milk Of Magnesia) 30 ml PO DAILY PRN PRN Reason: Constipation Last Admin: 10/18/16 17:00 Dose: 30 ml Midodrine (Proamatine) 10 mg PO TID [facility] Last Admin: 10/28/16 16:21 Dose: 10 mg Mupirocin (Bactroban Ointment) 1 applic TOP BID [facility] Last Admin: 10/28/16 16:21 Dose: 1 applic Nystatin (Nystop Topical Powder) 1 applic TOP TID [facility] Last Admin: 10/28/16 16:21 Dose: 1 applic Pantoprazole Sodium (Protonix Ec Tab) 40 mg PO DAILY [facility] Last Admin: 10/28/16 08:15 Dose: 40 mg - Labs Labs: 10/23/16 08:18 10/23/16 08:18 - Respiratory Exam Respiratory Exam: NORMAL BREATHING PATTERN - Cardiovascular Exam Cardiovascular Exam: REGULAR RHYTHM - GI/Abdominal Exam GI & Abdominal Exam: Normal Bowel Sounds Assessment and Plan - Assessment and Plan (Free Text) Assessment: Low ext weakness?? MSA Parkinsons DX Shry Drager PT Rytary Reconsult Neuro Bradycardia Hypotenson chronic A-fib Sepsis ? Autonomic dysfunction? ABX IVF Midodrine ID Cardiology MRSA Nares Bactroban Disposition?? awaiting transfer to [place] Pt has medical decision making capacity but is financially vulnerable and would benefit from legal guardianship Court and Social service involved Pt is WW[place] Lethargy?? improved Baclofen d/c Infection resolved Reconsult Neuro R shoulder pain Dec ROM xrays subluxation Ultram PRN PT Gastroentritis? 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
[2016-10-29] MEDS: CARBIDOPA PO SCH ×3 (05:03→20:54)
[2016-10-29] MEDS: LEVODOPA PO SCH ×3 (05:03→20:54)
[2016-10-29] MEDS: Magnesium Hydroxide Susp 30 ml UD PO PRN (05:03)
[2016-10-29] MEDS: Bethanechol 50 MG TAB PO SCH ×3 (08:26→16:43)
[2016-10-29] MEDS: Pantoprazole 40 mg EC Tab PO SCH (08:26)
--- NOTE | 2016-10-29 20:51 | CP.PCM.PN ---
Subjective - Date & Time of Evaluation Date of Evaluation: 10/29/16 Time of Evaluation: 22:22 - Subjective Subjective: Above noted Objective - Vital Signs/Intake and Output Vital Signs (last 24 hours): Temp Pulse Resp BP Pulse Ox 98.1 F 68 20 110/65 97 10/29/16 16:53 10/29/16 16:53 10/29/16 16:53 10/29/16 16:53 10/29/16 16:53 Intake and Output: 10/29/16 10/30/16 18:59 06:59 Output Total 625 Balance -625 - Medications Medications: Current Medications Acetaminophen (Tylenol 325mg Tab) 650 mg PO Q6 PRN PRN Reason: Pain, Mild (1-3) Last Admin: 10/22/16 20:55 Dose: 650 mg Benzocaine/Menthol (Cepacol Sore Throat) 1 morro PO Q3 PRN PRN Reason: Sore Throat Last Admin: 10/24/16 19:29 Dose: 1 morro Bethanechol Chloride (Urecholine) 50 mg PO TID [facility] Last Admin: 10/29/16 16:43 Dose: 50 mg Carbidopa/Levodopa (Rytary Er 48.75 Mg-195 Mg Cap) 1 cap PO TID@0500,1300,2100 [facility] Last Admin: 10/29/16 13:01 Dose: 1 cap Fluocinonide (Lidex 0.05% Oint) 1 applic TOP BID [facility] Last Admin: 10/29/16 16:43 Dose: 1 appl Vancomycin HCl 1 gm/ Sodium (Chloride) 250 mls @ 166.667 mls/hr IVPB DAILY [facility] Last Admin: 10/29/16 08:26 Dose: 166.667 mls/hr Magnesium Hydroxide (Milk Of Magnesia) 30 ml PO DAILY PRN PRN Reason: Constipation Last Admin: 10/29/16 05:03 Dose: 30 ml Midodrine (Proamatine) 10 mg PO TID [facility] Last Admin: 10/29/16 16:43 Dose: 10 mg Mupirocin (Bactroban Ointment) 1 applic TOP BID [facility] Last Admin: 10/29/16 16:43 Dose: 1 applic Nystatin (Nystop Topical Powder) 1 applic TOP TID [facility] Last Admin: 10/29/16 16:43 Dose: 1 applic Pantoprazole Sodium (Protonix Ec Tab) 40 mg PO DAILY [facility] Last Admin: 10/29/16 08:26 Dose: 40 mg - Labs Labs: 10/23/16 08:18 10/23/16 08:18 - Respiratory Exam Respiratory Exam: NORMAL BREATHING PATTERN - Cardiovascular Exam Cardiovascular Exam: REGULAR RHYTHM - GI/Abdominal Exam GI & Abdominal Exam: Normal Bowel Sounds Assessment and Plan - Assessment and Plan (Free Text) Assessment: Low ext weakness?? MSA Parkinsons DX Shry Drager PT Rytary Reconsult Neuro Bradycardia Hypotenson chronic A-fib Sepsis ? Autonomic dysfunction? ABX IVF Midodrine ID Cardiology MRSA Nares Bactroban Disposition?? awaiting transfer to [place] Pt has medical decision making capacity but is financially vulnerable and would benefit from legal guardianship Court and Social service involved Pt is [place] WWII Lethargy?? improved Baclofen d/c Infection resolved Reconsult Neuro R shoulder pain Dec ROM xrays subluxation Ultram PRN PT Gastroentritis? 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
[2016-10-30] MEDS: LEVODOPA PO SCH ×3 (04:56→20:14)
[2016-10-30] MEDS: CARBIDOPA PO SCH ×3 (04:56→20:14)
[2016-10-30] MEDS: Pantoprazole 40 mg EC Tab PO SCH (10:01)
[2016-10-30] MEDS: Bethanechol 50 MG TAB PO SCH ×3 (10:02→16:42)
--- NOTE | 2016-10-30 20:29 | CP.PCM.PN ---
Subjective - Date & Time of Evaluation Date of Evaluation: 10/30/16 Time of Evaluation: 22:22 - Subjective Subjective: Above noted Objective - Vital Signs/Intake and Output Vital Signs (last 24 hours): Temp Pulse Resp BP Pulse Ox 98.1 F 63 20 131/69 98 10/30/16 17:22 10/30/16 17:22 10/30/16 17:22 10/30/16 17:22 10/30/16 17:22 - Medications Medications: Current Medications Acetaminophen (Tylenol 325mg Tab) 650 mg PO Q6 PRN PRN Reason: Pain, Mild (1-3) Last Admin: 10/22/16 20:55 Dose: 650 mg Benzocaine/Menthol (Cepacol Sore Throat) 1 morro PO Q3 PRN PRN Reason: Sore Throat Last Admin: 10/24/16 19:29 Dose: 1 morro Bethanechol Chloride (Urecholine) 50 mg PO TID [facility] Last Admin: 10/30/16 16:42 Dose: 50 mg Carbidopa/Levodopa (Rytary Er 48.75 Mg-195 Mg Cap) 1 cap PO TID@0500,1300,2100 [facility] Last Admin: 10/30/16 20:14 Dose: 1 cap Fluocinonide (Lidex 0.05% Oint) 1 applic TOP BID [facility] Last Admin: 10/30/16 10:00 Dose: 1 appl Magnesium Hydroxide (Milk Of Magnesia) 30 ml PO DAILY PRN PRN Reason: Constipation Last Admin: 10/29/16 05:03 Dose: 30 ml Midodrine (Proamatine) 10 mg PO TID [facility] Last Admin: 10/30/16 16:41 Dose: 10 mg Mupirocin (Bactroban Ointment) 1 applic TOP BID [facility] Last Admin: 10/30/16 10:00 Dose: 1 applic Nystatin (Nystop Topical Powder) 1 applic TOP TID [facility] Last Admin: 10/30/16 16:41 Dose: 1 applic Pantoprazole Sodium (Protonix Ec Tab) 40 mg PO DAILY [facility] Last Admin: 10/30/16 10:01 Dose: 40 mg - Labs Labs: 10/23/16 08:18 10/23/16 08:18 - Respiratory Exam Respiratory Exam: NORMAL BREATHING PATTERN - Cardiovascular Exam Cardiovascular Exam: REGULAR RHYTHM - GI/Abdominal Exam GI & Abdominal Exam: Normal Bowel Sounds Assessment and Plan - Assessment and Plan (Free Text) Assessment: Low ext weakness?? MSA Parkinsons DX Shry Drager PT Rytary Reconsult Neuro Bradycardia Hypotenson chronic A-fib Sepsis ? Autonomic dysfunction? ABX IVF Midodrine ID Cardiology MRSA Nares Bactroban Disposition?? awaiting transfer to [place] Pt has medical decision making capacity but is financially vulnerable and would benefit from legal guardianship Court and Social service involved Pt is WWII Lethargy?? improved Baclofen d/c Infection resolved Reconsult Neuro R shoulder pain Dec ROM xrays subluxation Ultram PRN PT Gastroentritis? 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
[2016-10-31] MEDS: CARBIDOPA PO SCH ×3 (04:37→20:30)
[2016-10-31] MEDS: LEVODOPA PO SCH ×3 (04:37→20:30)
[2016-10-31] MEDS: Bethanechol 50 MG TAB PO SCH ×3 (08:57→16:35)
[2016-10-31] MEDS: Pantoprazole 40 mg EC Tab PO SCH (08:57)
--- NOTE | 2016-10-31 21:00 | CP.PCM.PN ---
Subjective - Date & Time of Evaluation Date of Evaluation: 10/31/16 Time of Evaluation: 22:22 - Subjective Subjective: No change Objective - Vital Signs/Intake and Output Vital Signs (last 24 hours): Temp Pulse Resp BP Pulse Ox 97.4 F L 69 20 152/79 H 96 10/31/16 20:06 10/31/16 20:06 10/31/16 20:06 10/31/16 20:06 10/31/16 20:06 - Medications Medications: Current Medications Acetaminophen (Tylenol 325mg Tab) 650 mg PO Q6 PRN PRN Reason: Pain, Mild (1-3) Last Admin: 10/22/16 20:55 Dose: 650 mg Benzocaine/Menthol (Cepacol Sore Throat) 1 morro PO Q3 PRN PRN Reason: Sore Throat Last Admin: 10/24/16 19:29 Dose: 1 morro Bethanechol Chloride (Urecholine) 50 mg PO TID [facility] Last Admin: 10/31/16 16:35 Dose: 50 mg Carbidopa/Levodopa (Rytary Er 48.75 Mg-195 Mg Cap) 1 cap PO TID@0500,1300,2100 [facility] Last Admin: 10/31/16 20:30 Dose: 1 cap Fluocinonide (Lidex 0.05% Oint) 1 applic TOP BID PRN PRN Reason: Rash Magnesium Hydroxide (Milk Of Magnesia) 30 ml PO DAILY PRN PRN Reason: Constipation Last Admin: 10/29/16 05:03 Dose: 30 ml Midodrine (Proamatine) 10 mg PO TID [facility] Last Admin: 10/31/16 16:35 Dose: 10 mg Mupirocin (Bactroban Ointment) 1 applic TOP BID [facility] Last Admin: 10/31/16 16:34 Dose: 1 applic Nystatin (Nystop Topical Powder) 1 applic TOP TID [facility] Last Admin: 10/31/16 16:35 Dose: 1 applic Pantoprazole Sodium (Protonix Ec Tab) 40 mg PO DAILY [facility] Last Admin: 10/31/16 08:57 Dose: 40 mg - Labs Labs: 10/23/16 08:18 10/23/16 08:18 - Respiratory Exam Respiratory Exam: NORMAL BREATHING PATTERN - Cardiovascular Exam Cardiovascular Exam: Tachycardia - GI/Abdominal Exam GI & Abdominal Exam: Normal Bowel Sounds Assessment and Plan - Assessment and Plan (Free Text) Assessment: Low ext weakness?? MSA Parkinsons DX Shry Kamalaer PT Rytary Reconsult Neuro S/P Bradycardia Hypotenson chronic A-fib Sepsis ? Autonomic dysfunction? IVF Midodrine ID Cardiology MRSA Nares Bactroban Disposition?? awaiting transfer to [place] Pt has medical decision making capacity but is financially vulnerable and would benefit from legal guardianship Court and Social service involved Pt is [place] WWII Lethargy?? improved Baclofen d/c Infection resolved Reconsult Neuro R shoulder pain Dec ROM xrays subluxation Ultram PRN PT Gastroentritis? 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
[2016-11-01] MEDS: CARBIDOPA PO SCH ×3 (04:57→21:46)
[2016-11-01] MEDS: LEVODOPA PO SCH ×3 (04:57→21:46)
[2016-11-01] MEDS: Bethanechol 50 MG TAB PO SCH ×3 (08:40→16:12)
[2016-11-01] MEDS: Pantoprazole 40 mg EC Tab PO SCH (08:40)
[2016-11-01] MEDS: Sodium Chloride 0.9% 1,000 ML IV SCH ×2 (10:32→20:30)
[2016-11-01 10:53] LABS: BASO # 0.1 K/uL (0.0-0.2); BASO % 0.8 % (0.0-2.0); EOS # 0.4 K/uL (0.0-0.7); EOS % 4.4 % (0.0-4.0); HEMOGLOBIN 13.7 g/dL (12.0-18.0); LYMPH # 1.9 K/uL (1.0-4.3); LYMPH % 20.8 % (20.0-40.0); MEAN CELL VOLUME 93.8 fl (80.0-94.0); MEAN CORPUSCULAR HEMOGLOBIN 30.6 pg (27.0-31.0); MEAN CORPUSCULAR HGB CONC 32.6 g/dL (33.0-37.0); MEAN PLATELET VOLUME 10.2 fl (7.2-11.7); MONO # 0.5 K/uL (0.0-0.8); MONO % 5.1 % (0.0-10.0); NEUT # 6.1 K/uL (1.8-7.0); NEUT % 68.9 % (50.0-75.0); RBC 4.46 Mil/uL (4.40-5.90); RED CELL DISTRIBUTION WIDTH 14.1 % (11.5-14.5); WHITE BLOOD COUNT 8.9 K/uL (4.8-10.8)
--- NOTE | 2016-11-01 11:00 | RAD ---
HISTORY: Hypotension COMPARISON: 10/21/2016 FINDINGS: LUNGS: The lungs are clear. PLEURA: No significant pleural effusion identified, no pneumothorax apparent. CARDIOVASCULAR: There is persistent moderate cardiomegaly. OSSEOUS STRUCTURES: No significant abnormalities. VISUALIZED UPPER ABDOMEN: Normal. OTHER FINDINGS: None. IMPRESSION: No active pulmonary disease. Moderate cardiomegaly.
[2016-11-01 11:07] LABS: ALB/GLOB RATIO 1.1 (1.0-2.1); ALBUMIN 4.2 g/dL (3.5-5.0); ALT/SGPT 23 U/L (21-72); AST/SGOT 29 U/L (17-59); BLOOD UREA NITROGEN 23 mg/dl (9-20); CALCIUM 9.8 mg/dL (8.4-10.2); GFR AFRICAN-AMERICAN > 60; GFR NON-AFRICAN AMERICAN > 60
[2016-11-01 11:20] LABS: MAGNESIUM 0.9 MG/DL (1.6-2.3)
[2016-11-01] MEDS: Vancomycin 500 mg (Oral/Rectal USE) PO SCH ×2 (11:28→16:11)
[2016-11-01] MEDS: metroNIDAZOLE 500mg/100ml NS 100 ML IVPB SCH ×2 (12:42→16:12)
--- NOTE | 2016-11-01 18:03 | CARD ---
APPROVED REPORT EKG Measurement Heart [id number] <Conclusion> ProbablyAtrial Fibrillation with slow ventricular response Poor Tracing Baseline Artifact Repeat EKG
--- NOTE | 2016-11-01 19:37 | CP.PCM.PN ---
Subjective - Date & Time of Evaluation Date of Evaluation: 11/01/16 Time of Evaluation: 22:22 - Subjective Subjective: Above noted Objective - Vital Signs/Intake and Output Vital Signs (last 24 hours): Temp Pulse Resp BP Pulse Ox 97.5 F L 69 20 117/63 98 11/01/16 16:36 11/01/16 16:36 11/01/16 16:36 11/01/16 16:36 11/01/16 16:36 - Medications Medications: Current Medications Acetaminophen (Tylenol 325mg Tab) 650 mg PO Q6 PRN PRN Reason: Pain, Mild (1-3) Last Admin: 10/22/16 20:55 Dose: 650 mg Benzocaine/Menthol (Cepacol Sore Throat) 1 morro PO Q3 PRN PRN Reason: Sore Throat Last Admin: 10/24/16 19:29 Dose: 1 morro Bethanechol Chloride (Urecholine) 50 mg PO TID [facility] Last Admin: 11/01/16 16:12 Dose: 50 mg Carbidopa/Levodopa (Rytary Er 48.75 Mg-195 Mg Cap) 1 cap PO TID@0500,1300,2100 [facility] Last Admin: 11/01/16 12:43 Dose: 1 cap Fluocinonide (Lidex 0.05% Oint) 1 applic TOP BID PRN PRN Reason: Rash Last Admin: 11/01/16 16:12 Dose: 1 applic Sodium Chloride (Sodium Chloride 0.9%) 1,000 mls @ 100 mls/hr IV .Q10H [facility] Stop: 11/02/16 10:31 Last Admin: 11/01/16 10:32 Dose: 100 mls/hr Metronidazole (Flagyl 500mg/100ml Ns) 100 mls @ 100 mls/hr IVPB Q8 [facility] Last Admin: 11/01/16 16:12 Dose: 100 mls/hr Magnesium Hydroxide (Milk Of Magnesia) 30 ml PO DAILY PRN PRN Reason: Constipation Last Admin: 10/29/16 05:03 Dose: 30 ml Midodrine (Proamatine) 10 mg PO TID [facility] Last Admin: 11/01/16 16:21 Dose: Not Given Mupirocin (Bactroban Ointment) 1 applic TOP BID [facility] Last Admin: 11/01/16 16:12 Dose: 1 applic Nystatin (Nystop Topical Powder) 1 applic TOP TID [facility] Last Admin: 11/01/16 16:12 Dose: 1 applic Pantoprazole Sodium (Protonix Ec Tab) 40 mg PO DAILY [facility] Last Admin: 11/01/16 08:40 Dose: 40 mg Vancomycin HCl (Vancocin (Oral/Rectal Use)) 250 mg PO Q8 [facility] Last Admin: 11/01/16 16:11 Dose: 250 mg - Labs Labs: 11/01/16 10:46 11/01/16 10:46 - Respiratory Exam Respiratory Exam: NORMAL BREATHING PATTERN - Cardiovascular Exam Cardiovascular Exam: REGULAR RHYTHM - GI/Abdominal Exam GI & Abdominal Exam: Normal Bowel Sounds Assessment and Plan - Assessment and Plan (Free Text) Assessment: Low ext weakness?? MSA Parkinsons DX Paulyy Kamalaer PT Rytary Reconsult Neuro S/P Bradycardia Hypotenson chronic A-fib Sepsis ? Autonomic dysfunction? IVF Midodrine ID Cardiology MRSA Nares Bactroban Disposition?? awaiting transfer to [place] Pt has medical decision making capacity but is financially vulnerable and would benefit from legal guardianship Court and Social service involved Pt is [place] WW[place] Lethargy?? improved Baclofen d/c Infection resolved Reconsult Neuro R shoulder pain Dec ROM xrays subluxation Ultram PRN PT Gastroentritis? 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
[2016-11-02] MEDS: metroNIDAZOLE 500mg/100ml NS 100 ML IVPB SCH ×3 (00:45→17:18)
[2016-11-02] MEDS: Vancomycin 500 mg (Oral/Rectal USE) PO SCH ×3 (00:48→17:20)
[2016-11-02] MEDS: LEVODOPA PO SCH ×3 (05:05→20:26)
[2016-11-02] MEDS: CARBIDOPA PO SCH ×3 (05:05→20:26)
[2016-11-02] MEDS: Sodium Chloride 0.9% 1,000 ML IV SCH (06:20)
[2016-11-02] MEDS: Pantoprazole 40 mg EC Tab PO SCH (10:13)
[2016-11-02] MEDS: Bethanechol 50 MG TAB PO SCH ×3 (10:13→17:19)
--- NOTE | 2016-11-02 20:14 | CP.PCM.PN ---
Subjective - Date & Time of Evaluation Date of Evaluation: 11/02/16 Time of Evaluation: 22:22 - Subjective Subjective: No change Objective - Vital Signs/Intake and Output Vital Signs (last 24 hours): Temp Pulse Resp BP Pulse Ox 97.6 F 71 20 152/73 H 96 11/02/16 16:42 11/02/16 16:42 11/02/16 16:42 11/02/16 16:42 11/02/16 16:42 - Medications Medications: Current Medications Acetaminophen (Tylenol 325mg Tab) 650 mg PO Q6 PRN PRN Reason: Pain, Mild (1-3) Last Admin: 10/22/16 20:55 Dose: 650 mg Benzocaine/Menthol (Cepacol Sore Throat) 1 morro PO Q3 PRN PRN Reason: Sore Throat Last Admin: 10/24/16 19:29 Dose: 1 morro Bethanechol Chloride (Urecholine) 50 mg PO TID [facility] Last Admin: 11/02/16 17:19 Dose: 50 mg Carbidopa/Levodopa (Rytary Er 48.75 Mg-195 Mg Cap) 1 cap PO TID@0500,1300,2100 [facility] Last Admin: 11/02/16 13:27 Dose: 1 cap Fluocinonide (Lidex 0.05% Oint) 1 applic TOP BID PRN PRN Reason: Rash Last Admin: 11/01/16 16:12 Dose: 1 applic Metronidazole (Flagyl 500mg/100ml Ns) 100 mls @ 100 mls/hr IVPB Q8 [facility] Last Admin: 11/02/16 17:18 Dose: 100 mls/hr Magnesium Hydroxide (Milk Of Magnesia) 30 ml PO DAILY PRN PRN Reason: Constipation Last Admin: 10/29/16 05:03 Dose: 30 ml Midodrine (Proamatine) 10 mg PO TID [facility] Last Admin: 11/02/16 17:19 Dose: 10 mg Mupirocin (Bactroban Ointment) 1 applic TOP BID [facility] Last Admin: 11/02/16 17:17 Dose: 1 applic Nystatin (Nystop Topical Powder) 1 applic TOP TID [facility] Last Admin: 11/02/16 17:19 Dose: 1 applic Pantoprazole Sodium (Protonix Ec Tab) 40 mg PO DAILY [facility] Last Admin: 04/22/17 10:13 Dose: 40 mg Vancomycin HCl (Vancocin (Oral/Rectal Use)) 250 mg PO Q8 [facility] Last Admin: 11/02/16 17:20 Dose: 250 mg - Labs Labs: 11/01/16 10:46 11/01/16 10:46 - Respiratory Exam Respiratory Exam: NORMAL BREATHING PATTERN - Cardiovascular Exam Cardiovascular Exam: REGULAR RHYTHM - GI/Abdominal Exam GI & Abdominal Exam: Normal Bowel Sounds Assessment and Plan - Assessment and Plan (Free Text) Assessment: Low ext weakness?? MSA Parkinsons DX Lilia Vieira PT Rytary Reconsult Neuro S/P Bradycardia Hypotenson chronic A-fib Sepsis ? Autonomic dysfunction? IVF Midodrine ID Cardiology MRSA Nares Bactroban Disposition?? awaiting transfer to [place] Pt has medical decision making capacity but is financially vulnerable and would benefit from legal guardianship Court and Social service involved Pt is [place] Lethargy?? improved Baclofen d/c Infection resolved Reconsult Neuro R shoulder pain Dec ROM xrays subluxation Ultram PRN PT Gastroentritis? 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
[2016-11-03] MEDS: metroNIDAZOLE 500mg/100ml NS 100 ML IVPB SCH ×3 (00:17→17:09)
[2016-11-03] MEDS: Vancomycin 500 mg (Oral/Rectal USE) PO SCH ×3 (00:22→17:11)
[2016-11-03] MEDS: LEVODOPA PO SCH ×3 (05:01→21:53)
[2016-11-03] MEDS: CARBIDOPA PO SCH ×3 (05:01→21:53)
[2016-11-03] MEDS: Bethanechol 50 MG TAB PO SCH ×3 (09:40→17:10)
[2016-11-03] MEDS: Pantoprazole 40 mg EC Tab PO SCH (09:40)
[2016-11-03] MEDS: Benzocaine/Menthol (Cepacol) Lozenge PO PRN (13:24)
--- NOTE | 2016-11-03 15:13 | CP.PCM.PN ---
Subjective - Date & Time of Evaluation Date of Evaluation: 11/03/16 Time of Evaluation: 10:00 - Subjective Subjective: improved on flagyl/vanco no fever c/s urine noted however u/a was benign Objective - Vital Signs/Intake and Output Vital Signs (last 24 hours): Temp Pulse Resp BP Pulse Ox 97.4 F L 66 20 145/88 98 11/03/16 07:59 11/03/16 07:59 11/03/16 07:59 11/03/16 07:59 11/03/16 07:59 - Medications Medications: Current Medications Acetaminophen (Tylenol 325mg Tab) 650 mg PO Q6 PRN PRN Reason: Pain, Mild (1-3) Last Admin: 10/22/16 20:55 Dose: 650 mg Benzocaine/Menthol (Cepacol Sore Throat) 1 morro PO Q3 PRN PRN Reason: Sore Throat Last Admin: 11/03/16 13:24 Dose: 1 morro Bethanechol Chloride (Urecholine) 50 mg PO TID [facility] Last Admin: 11/03/16 13:16 Dose: 50 mg Carbidopa/Levodopa (Rytary Er 48.75 Mg-195 Mg Cap) 1 cap PO TID@0500,1300,2100 [facility] Last Admin: 11/03/16 13:16 Dose: 1 cap Fluocinonide (Lidex 0.05% Oint) 1 applic TOP BID PRN PRN Reason: Rash Last Admin: 11/01/16 16:12 Dose: 1 applic Metronidazole (Flagyl 500mg/100ml Ns) 100 mls @ 100 mls/hr IVPB Q8 [facility] Last Admin: 11/03/16 09:41 Dose: 100 mls/hr Magnesium Hydroxide (Milk Of Magnesia) 30 ml PO DAILY PRN PRN Reason: Constipation Last Admin: 10/29/16 05:03 Dose: 30 ml Midodrine (Proamatine) 10 mg PO TID [facility] Last Admin: 11/03/16 13:16 Dose: 10 mg Mupirocin (Bactroban Ointment) 1 applic TOP BID [facility] Last Admin: 11/03/16 09:42 Dose: 1 applic Nystatin (Nystop Topical Powder) 1 applic TOP TID [facility] Last Admin: 11/03/16 13:15 Dose: 1 applic Pantoprazole Sodium (Protonix Ec Tab) 40 mg PO DAILY [facility] Last Admin: 11/03/16 09:40 Dose: 40 mg Vancomycin HCl (Vancocin (Oral/Rectal Use)) 250 mg PO Q8 [facility] Last Admin: 11/03/16 09:41 Dose: 250 mg - Labs Labs: 11/01/16 10:46 11/01/16 10:46 Assessment and Plan (1) Parkinsonism Status: Acute (2) Bradyarrhythmia Status: Acute
--- NOTE | 2016-11-03 23:03 | CP.PCM.PN ---
Subjective - Date & Time of Evaluation Date of Evaluation: 11/03/16 Time of Evaluation: 22:22 - Subjective Subjective: above noted Objective - Vital Signs/Intake and Output Vital Signs (last 24 hours): Temp Pulse Resp BP Pulse Ox 98 F 64 20 160/90 H 98 11/03/16 21:10 11/03/16 21:10 11/03/16 21:10 11/03/16 21:10 11/03/16 21:10 - Medications Medications: Current Medications Acetaminophen (Tylenol 325mg Tab) 650 mg PO Q6 PRN PRN Reason: Pain, Mild (1-3) Last Admin: 10/22/16 20:55 Dose: 650 mg Benzocaine/Menthol (Cepacol Sore Throat) 1 morro PO Q3 PRN PRN Reason: Sore Throat Last Admin: 11/03/16 13:24 Dose: 1 morro Bethanechol Chloride (Urecholine) 50 mg PO TID [facility] Last Admin: 11/03/16 17:10 Dose: 50 mg Carbidopa/Levodopa (Rytary Er 48.75 Mg-195 Mg Cap) 1 cap PO TID@0500,1300,2100 [facility] Last Admin: 11/03/16 21:53 Dose: 1 cap Fluocinonide (Lidex 0.05% Oint) 1 applic TOP BID PRN PRN Reason: Rash Last Admin: 11/01/16 16:12 Dose: 1 applic Metronidazole (Flagyl 500mg/100ml Ns) 100 mls @ 100 mls/hr IVPB Q8 [facility] Last Admin: 11/03/16 17:09 Dose: 100 mls/hr Magnesium Hydroxide (Milk Of Magnesia) 30 ml PO DAILY PRN PRN Reason: Constipation Last Admin: 10/29/16 05:03 Dose: 30 ml Midodrine (Proamatine) 10 mg PO TID [facility] Last Admin: 11/03/16 17:10 Dose: 10 mg Mupirocin (Bactroban Ointment) 1 applic TOP BID [facility] Last Admin: 11/03/16 17:09 Dose: 1 applic Nystatin (Nystop Topical Powder) 1 applic TOP TID [facility] Last Admin: 11/03/16 17:10 Dose: 1 applic Pantoprazole Sodium (Protonix Ec Tab) 40 mg PO DAILY [facility] Last Admin: 11/03/16 09:40 Dose: 40 mg Vancomycin HCl (Vancocin (Oral/Rectal Use)) 250 mg PO Q8 [facility] Last Admin: 11/03/16 17:11 Dose: 250 mg - Labs Labs: 11/01/16 10:46 11/01/16 10:46 - Respiratory Exam Respiratory Exam: NORMAL BREATHING PATTERN - Cardiovascular Exam Cardiovascular Exam: REGULAR RHYTHM - GI/Abdominal Exam GI & Abdominal Exam: Normal Bowel Sounds Assessment and Plan - Assessment and Plan (Free Text) Assessment: Urine CS g-rods Abx ID Low ext weakness?? MSA Parkinsons DX Paulyy Drager PT Rytary Reconsult Neuro S/P Bradycardia Hypotenson chronic A-fib Sepsis ? Autonomic dysfunction? IVF Midodrine ID Cardiology MRSA Nares Bactroban Disposition?? awaiting transfer to [place] Pt has medical decision making capacity but is financially vulnerable and would benefit from legal guardianship Court and Social service involved Pt is [place] Lethargy?? improved Baclofen d/c Infection resolved Reconsult Neuro R shoulder pain Dec ROM xrays subluxation Ultram PRN PT Gastroentritis? resolved d/c flagyl LGI bleed Thrombocytopenia Thrombocytopenia chronic Decubitus ulcer buttocks DVT prophylaxis SCD (no Lovenox due to thrombocytopenia) S/P UTI Enterrococus S/P Urinary retention S/P UTI Proteus S/P Pnuemonia S/P Hypotension [employer] 2 to Dehydration Meds
[2016-11-04] MEDS: Vancomycin 500 mg (Oral/Rectal USE) PO SCH ×3 (01:56→16:14)
[2016-11-04] MEDS: metroNIDAZOLE 500mg/100ml NS 100 ML IVPB SCH ×3 (01:57→16:13)
[2016-11-04] MEDS: LEVODOPA PO SCH ×3 (05:30→20:24)
[2016-11-04] MEDS: CARBIDOPA PO SCH ×3 (05:30→20:24)
[2016-11-04] MEDS: Pantoprazole 40 mg EC Tab PO SCH (08:45)
[2016-11-04] MEDS: Bethanechol 50 MG TAB PO SCH ×3 (08:46→16:14)
[2016-11-04 09:42] LABS: BLOOD UREA NITROGEN 18 mg/dl (9-20); CALCIUM 9.2 mg/dL (8.4-10.2); GFR AFRICAN-AMERICAN > 60; GFR NON-AFRICAN AMERICAN > 60; MAGNESIUM 1.8 MG/DL (1.6-2.3)
--- NOTE | 2016-11-04 16:02 | CP.PCM.CON ---
History of Present Illness - History of Present Illness History of Present Illness: Mr. Gutierrez is an 86-year-old man with a past medical history of Parkinson's Disease and Shy-Drager syndrome, on Rytary and midodrine, who has been hospitalized for many months, and states that he has been having progressively worsening weakness of his lower extremities. He also complains of feeling some numbness and trouble with sensation of his lower extremities. He denies headache, nausea, visual changes, shortness of breath, chest pain, or abdominal pain. He complains of right arm pain and says that his right arm is weaker than his left arm. Review of Systems - Review of Systems All systems: reviewed and no additional remarkable complaints except Past Patient History - Tetanus Immunizations Tetanus Immunization: Unknown - Past Medical History & Family History Past Medical History?: Yes - Past Social History Smoking Status: Never Smoked - CARDIAC Hx Cardiac Disorders: No Hx Congestive Heart Failure: No Hx Hypercholesterolemia: No Hx Hypertension: No - PULMONARY Hx Chronic Obstructive Pulmonary Disease (COPD): No - NEUROLOGICAL HX Cerebrovascular Accident: No - HEENT Hx HEENT Problems: Yes Hx Cataracts: No Hx Deafness: No Hx Difficulty Chewing: No Hx Epistaxis: No Hx Glaucoma: Yes Hx Macular Degeneration: No - RENAL Hx Renal Failure: No - ENDOCRINE/METABOLIC Hx Diabetes Mellitus Type 1: No Hx Diabetes Mellitus Type 2: No Hx Hypothyroidism: No - HEMATOLOGICAL/ONCOLOGICAL Hx Anemia: No Hx Human Immunodeficiency Virus (HIV): No Hx Sickle Cell Disease: No - INTEGUMENTARY Hx Dermatological Problems: No Hx Basil Cell: No Hx Silva: No Hx Cellulitis: Yes (right leg) Hx Eczema: No Hx Melanoma: No Hx Psoriasis: No Hx Squamous Cell: No - MUSCULOSKELETAL/RHEUMATOLOGICAL Hx Arthritis: No Hx Rheumatoid Arthritis: No - GASTROINTESTINAL Hx Crohn's Disease: No Hx Diverticulitis: No Hx Gall Bladder Disease: No Hx Gastritis: No Hx Pancreatitis: No - GENITOURINARY/GYNECOLOGICAL Hx Sexually Transmitted Disorders: No - PSYCHIATRIC Hx Anxiety: Yes Hx Depression: Yes - SURGICAL HISTORY Hx Appendectomy: Yes Hx Carotid Endarterectomy: No Hx Cholecystectomy: No Hx Coronary Artery Bypass Graft: No Hx Coronary Stent: No Hx Tonsillectomy: Yes - ANESTHESIA Hx Anesthesia: Yes Hx Anesthesia Reactions: No Hx Malignant Hyperthermia: No Meds Allergies/Adverse Reactions: Allergies Allergy/AdvReac Type Severity Reaction Status Date / Time Penicillins Allergy Hives Verified 08/01/15 06:34 - Medications Medications: Current Medications Acetaminophen (Tylenol 325mg Tab) 650 mg PO Q6 PRN PRN Reason: Pain, Mild (1-3) Last Admin: 10/22/16 20:55 Dose: 650 mg Benzocaine/Menthol (Cepacol Sore Throat) 1 morro PO Q3 PRN PRN Reason: Sore Throat Last Admin: 11/03/16 13:24 Dose: 1 morro Bethanechol Chloride (Urecholine) 50 mg PO TID [facility] Last Admin: 11/04/16 12:00 Dose: 50 mg Carbidopa/Levodopa (Rytary Er 48.75 Mg-195 Mg Cap) 1 cap PO TID@0500,1300,2100 [facility] Last Admin: 11/04/16 12:00 Dose: 1 cap Fluocinonide (Lidex 0.05% Oint) 1 applic TOP BID PRN PRN Reason: Rash Last Admin: 11/04/16 08:45 Dose: 1 applic Metronidazole (Flagyl 500mg/100ml Ns) 100 mls @ 100 mls/hr IVPB Q8 [facility] Last Admin: 11/04/16 08:45 Dose: 100 mls/hr Magnesium Hydroxide (Milk Of Magnesia) 30 ml PO DAILY PRN PRN Reason: Constipation Last Admin: 10/29/16 05:03 Dose: 30 ml Midodrine (Proamatine) 10 mg PO TID [facility] Last Admin: 11/04/16 12:00 Dose: 10 mg Mupirocin (Bactroban Ointment) 1 applic TOP BID [facility] Last Admin: 11/04/16 08:44 Dose: 1 applic Nystatin (Nystop Topical Powder) 1 applic TOP TID [facility] Last Admin: 11/04/16 12:00 Dose: 1 applic Pantoprazole Sodium (Protonix Ec Tab) 40 mg PO DAILY [facility] Last Admin: 11/04/16 08:45 Dose: 40 mg Vancomycin HCl (Vancocin (Oral/Rectal Use)) 250 mg PO Q8 [facility] Last Admin: 11/04/16 08:46 Dose: 250 mg Physical Exam - Constitutional Appears: Well, No Acute Distress, Agitated - Head Exam Head Exam: ATRAUMATIC, NORMAL INSPECTION, NORMOCEPHALIC - Eye Exam Eye Exam: EOMI, Normal appearance, PERRL - ENT Exam ENT Exam: Mucous Membranes Moist, Normal Exam - Neck Exam Neck exam: Positive for: Normal Inspection - Respiratory Exam Respiratory Exam: Clear to Auscultation Bilateral, NORMAL BREATHING PATTERN - Cardiovascular Exam Cardiovascular Exam: REGULAR RHYTHM - GI/Abdominal Exam GI & Abdominal Exam: Normal Bowel Sounds, Soft. absent: Tenderness - Extremities Exam Extremities exam: Positive for: normal capillary refill - Back Exam Back exam: NORMAL INSPECTION - Neurological Exam Neurological exam: Alert, CN II-XII Intact, Oriented x3, Reflexes Normal Additional comments: Generalized weakness and deconditioning. Tremor in all extremities noted, pill rolling in the upper extremities, decreased facial expression, rigidity, bradykinesia and difficulty with initiating movements. - Psychiatric Exam Psychiatric exam: Agitated, Flat Affect - Skin Skin Exam: Dry Results - Vital Signs Recent Vital Signs: Last Vital Signs Temp 97.6 F 11/04/16 07:34 Pulse 63 11/04/16 07:34 Resp 20 11/04/16 07:34 BP 150/72 11/04/16 07:34 Pulse Ox 96 11/04/16 07:34 - Labs Result Diagrams: 11/01/16 10:46 11/04/16 08:30 Labs: Laboratory Results - last 24 hr 11/04/16 08:30 Sodium 141 Potassium 4.7 Chloride 104 Carbon Dioxide 26 Anion Gap 16 BUN 18 Creatinine 0.8 Est GFR ( Amer) > 60 Est GFR (Non-Af Amer) > 60 Random Glucose 85 Calcium 9.2 Magnesium 1.8 Assessment & Plan (1) Parkinson disease Assessment and Plan: His disease is likely advanced with the worsening of his lower extremity strength. Will start admantadine at 100 mg BID and follow clinical response. An MRI of the brain is recommended to evaluate for infarct since he does have some asymmetrical findings. Thank you very much for this consultation. Status: Chronic Priority: Medium
--- NOTE | 2016-11-04 20:32 | CP.PCM.PN ---
Subjective - Date & Time of Evaluation Date of Evaluation: 11/04/16 Time of Evaluation: 22:22 - Subjective Subjective: Neuro note appreciated Objective - Vital Signs/Intake and Output Vital Signs (last 24 hours): Temp Pulse Resp BP Pulse Ox 97.8 F 62 20 150/90 99 11/04/16 16:39 11/04/16 16:39 11/04/16 16:39 11/04/16 16:39 11/04/16 16:39 - Medications Medications: Current Medications Acetaminophen (Tylenol 325mg Tab) 650 mg PO Q6 PRN PRN Reason: Pain, Mild (1-3) Last Admin: 10/22/16 20:55 Dose: 650 mg Amantadine HCl (Amantadine 100 Mg Cap) 100 mg PO BID [facility] Last Admin: 11/04/16 17:21 Dose: 100 mg Benzocaine/Menthol (Cepacol Sore Throat) 1 morro PO Q3 PRN PRN Reason: Sore Throat Last Admin: 11/03/16 13:24 Dose: 1 morro Bethanechol Chloride (Urecholine) 50 mg PO TID [facility] Last Admin: 11/04/16 16:14 Dose: 50 mg Carbidopa/Levodopa (Rytary Er 48.75 Mg-195 Mg Cap) 1 cap PO TID@0500,1300,2100 [facility] Last Admin: 11/04/16 20:24 Dose: 1 cap Fluocinonide (Lidex 0.05% Oint) 1 applic TOP BID PRN PRN Reason: Rash Last Admin: 11/04/16 16:13 Dose: 1 applic Metronidazole (Flagyl 500mg/100ml Ns) 100 mls @ 100 mls/hr IVPB Q8 [facility] Last Admin: 11/04/16 16:13 Dose: 100 mls/hr Magnesium Hydroxide (Milk Of Magnesia) 30 ml PO DAILY PRN PRN Reason: Constipation Last Admin: 10/29/16 05:03 Dose: 30 ml Midodrine (Proamatine) 10 mg PO TID [facility] Last Admin: 11/04/16 16:14 Dose: 10 mg Mupirocin (Bactroban Ointment) 1 applic TOP BID [facility] Last Admin: 11/04/16 16:13 Dose: 1 applic Nystatin (Nystop Topical Powder) 1 applic TOP TID [facility] Last Admin: 11/04/16 16:14 Dose: 1 applic Pantoprazole Sodium (Protonix Ec Tab) 40 mg PO DAILY [facility] Last Admin: 11/04/16 08:45 Dose: 40 mg Vancomycin HCl (Vancocin (Oral/Rectal Use)) 250 mg PO Q8 [facility] Last Admin: 11/04/16 16:14 Dose: 250 mg - Labs Labs: 11/01/16 10:46 11/04/16 08:30 - Respiratory Exam Respiratory Exam: NORMAL BREATHING PATTERN - Cardiovascular Exam Cardiovascular Exam: REGULAR RHYTHM - GI/Abdominal Exam GI & Abdominal Exam: Normal Bowel Sounds Assessment and Plan - Assessment and Plan (Free Text) Assessment: Low ext weakness?? MSA Parkinsons DX Shry Drager PT Rytary Reconsult Neuro Urine CS g-rods Abx ID MRSA Nares Bactroban S/P Bradycardia Hypotenson chronic A-fib Sepsis ? Autonomic dysfunction? IVF Midodrine ID Cardiology Disposition?? awaiting transfer to [place] Pt has medical decision making capacity but is financially vulnerable and would benefit from legal guardianship Court and Social service involved Pt is [place] Lethargy?? improved Baclofen d/c Infection resolved Reconsult Neuro R shoulder pain Dec ROM xrays subluxation Ultram PRN PT Gastroentritis? resolved d/c flagyl LGI bleed Thrombocytopenia Thrombocytopenia chronic Decubitus ulcer buttocks DVT prophylaxis SCD (no Lovenox due to thrombocytopenia) S/P UTI Enterrococus S/P Urinary retention S/P UTI Proteus S/P Pnuemonia S/P Hypotension [employer] 2 to Dehydration Meds
[2016-11-05] MEDS: Vancomycin 500 mg (Oral/Rectal USE) PO SCH ×3 (00:26→16:12)
[2016-11-05] MEDS: metroNIDAZOLE 500mg/100ml NS 100 ML IVPB SCH ×3 (00:26→16:19)
[2016-11-05] MEDS: Pantoprazole 40 mg EC Tab PO SCH (08:43)
[2016-11-05] MEDS: Bethanechol 50 MG TAB PO SCH ×3 (08:44→16:12)
[2016-11-05] MEDS: CARBIDOPA PO SCH ×2 (12:17→21:59)
[2016-11-05] MEDS: LEVODOPA PO SCH ×2 (12:17→21:59)
--- NOTE | 2016-11-05 13:29 | CT ---
PROCEDURE: CT HEAD WITHOUT CONTRAST. HISTORY: md order COMPARISON: Noncontrast head CT performed 10/05/15 TECHNIQUE: Axial computed tomography images were obtained through the head/brain without intravenous contrast. Radiation dose: Total exam DLP = 1266.57 mGy-cm. This CT exam was performed using one or more of the following dose reduction techniques: Automated exposure control, adjustment of the mA and/or kV according to patient size, and/or use of iterative reconstruction technique. FINDINGS: Right frontal scalp/facial bones partially excluded from view. HEMORRHAGE: No intracranial hemorrhage. BRAIN: Diffuse atrophy with prominence of the ventricles and sulci noted. No mass effect or edema. Intracranial vascular calcifications. Scattered periventricular and subcortical white matter hypodensities, which are nonspecific, but often seen with chronic microvascular ischemic disease. Please note that MRI with diffusion imaging is more sensitive in the detection of acute ischemic event. VENTRICLES: No hydrocephalus. CALVARIUM: Unremarkable. PARANASAL SINUSES: Unremarkable as visualized. No significant inflammatory changes. MASTOID AIR CELLS: Opacification / fluid involving the right mastoid air cells. The left mastoid air cells appear clear. Bold OTHER FINDINGS: None. IMPRESSION: Generalized atrophy. Nonspecific white matter changes. Interval opacification/fluid involving the right mastoid air cells. Correlate clinically for mastoiditis.
--- NOTE | 2016-11-05 20:12 | CP.PCM.PN ---
Subjective - Date & Time of Evaluation Date of Evaluation: 11/05/16 Time of Evaluation: 22:22 - Subjective Subjective: Above noted Objective - Vital Signs/Intake and Output Vital Signs (last 24 hours): Temp Pulse Resp BP Pulse Ox 97.6 F 69 20 156/86 H 97 11/05/16 16:52 11/05/16 16:52 11/05/16 16:52 11/05/16 16:52 11/05/16 16:52 - Medications Medications: Current Medications Acetaminophen (Tylenol 325mg Tab) 650 mg PO Q6 PRN PRN Reason: Pain, Mild (1-3) Last Admin: 10/22/16 20:55 Dose: 650 mg Amantadine HCl (Amantadine 100 Mg Cap) 100 mg PO BID [facility] Last Admin: 11/05/16 16:11 Dose: 100 mg Benzocaine/Menthol (Cepacol Sore Throat) 1 morro PO Q3 PRN PRN Reason: Sore Throat Last Admin: 11/03/16 13:24 Dose: 1 morro Bethanechol Chloride (Urecholine) 50 mg PO TID [facility] Last Admin: 11/05/16 16:12 Dose: 50 mg Carbidopa/Levodopa (Rytary Er 48.75 Mg-195 Mg Cap) 1 cap PO TID@0500,1300,2100 [facility] Last Admin: 11/05/16 12:17 Dose: 1 cap Fluocinonide (Lidex 0.05% Oint) 1 applic TOP BID PRN PRN Reason: Rash Last Admin: 11/05/16 08:43 Dose: 1 applic Metronidazole (Flagyl 500mg/100ml Ns) 100 mls @ 100 mls/hr IVPB Q8 [facility] Last Admin: 11/05/16 16:19 Dose: 100 mls/hr Magnesium Hydroxide (Milk Of Magnesia) 30 ml PO DAILY PRN PRN Reason: Constipation Last Admin: 10/29/16 05:03 Dose: 30 ml Midodrine (Proamatine) 10 mg PO TID [facility] Last Admin: 11/05/16 16:11 Dose: 10 mg Mupirocin (Bactroban Ointment) 1 applic TOP BID [facility] Last Admin: 11/05/16 16:11 Dose: 1 applic Nystatin (Nystop Topical Powder) 1 applic TOP TID [facility] Last Admin: 11/05/16 16:11 Dose: 1 applic Pantoprazole Sodium (Protonix Ec Tab) 40 mg PO DAILY [facility] Last Admin: 11/05/16 08:43 Dose: 40 mg Vancomycin HCl (Vancocin (Oral/Rectal Use)) 250 mg PO Q8 [facility] Last Admin: 11/05/16 16:12 Dose: 250 mg - Labs Labs: 11/01/16 10:46 11/04/16 08:30 - Respiratory Exam Respiratory Exam: NORMAL BREATHING PATTERN - Cardiovascular Exam Cardiovascular Exam: REGULAR RHYTHM - GI/Abdominal Exam GI & Abdominal Exam: Normal Bowel Sounds Assessment and Plan - Assessment and Plan (Free Text) Assessment: Low ext weakness?? MSA Parkinsons DX Lilia Vieira PT Rytary Neuro consult appreciated Urine CS g-rods Abx ID MRSA Nares Bactroban S/P Bradycardia Hypotenson chronic A-fib Sepsis ? Autonomic dysfunction? IVF Midodrine ID Cardiology Disposition?? awaiting transfer to [place] Pt has medical decision making capacity but is financially vulnerable and would benefit from legal guardianship Court and Social service involved Pt is [place]
[2016-11-06] MEDS: Vancomycin 500 mg (Oral/Rectal USE) PO SCH ×3 (00:05→16:12)
[2016-11-06] MEDS: metroNIDAZOLE 500mg/100ml NS 100 ML IVPB SCH ×3 (00:06→16:08)
[2016-11-06] MEDS: CARBIDOPA PO SCH ×3 (04:46→21:19)
[2016-11-06] MEDS: LEVODOPA PO SCH ×3 (04:46→21:19)
[2016-11-06] MEDS: Bethanechol 50 MG TAB PO SCH ×3 (08:57→16:11)
[2016-11-06] MEDS: Pantoprazole 40 mg EC Tab PO SCH (08:57)
--- NOTE | 2016-11-06 19:57 | CP.PCM.PN ---
Subjective - Date & Time of Evaluation Date of Evaluation: 11/06/16 Time of Evaluation: 22:22 - Subjective Subjective: Doing well Objective - Vital Signs/Intake and Output Vital Signs (last 24 hours): Temp Pulse Resp BP Pulse Ox 97.6 F 79 20 152/82 H 99 11/06/16 16:46 11/06/16 16:46 11/06/16 16:46 11/06/16 16:46 11/06/16 16:46 - Medications Medications: Current Medications Acetaminophen (Tylenol 325mg Tab) 650 mg PO Q6 PRN PRN Reason: Pain, Mild (1-3) Last Admin: 10/22/16 20:55 Dose: 650 mg Amantadine HCl (Amantadine 100 Mg Cap) 100 mg PO BID [facility] Last Admin: 11/06/16 16:10 Dose: 100 mg Benzocaine/Menthol (Cepacol Sore Throat) 1 morro PO Q3 PRN PRN Reason: Sore Throat Last Admin: 11/03/16 13:24 Dose: 1 morro Bethanechol Chloride (Urecholine) 50 mg PO TID [facility] Last Admin: 11/06/16 16:11 Dose: 50 mg Carbidopa/Levodopa (Rytary Er 48.75 Mg-195 Mg Cap) 1 cap PO TID@0500,1300,2100 [facility] Last Admin: 11/06/16 12:09 Dose: 1 cap Fluocinonide (Lidex 0.05% Oint) 1 applic TOP BID PRN PRN Reason: Rash Last Admin: 11/06/16 08:55 Dose: 1 applic Metronidazole (Flagyl 500mg/100ml Ns) 100 mls @ 100 mls/hr IVPB Q8 [facility] Last Admin: 11/06/16 16:08 Dose: 100 mls/hr Magnesium Hydroxide (Milk Of Magnesia) 30 ml PO DAILY PRN PRN Reason: Constipation Last Admin: 10/29/16 05:03 Dose: 30 ml Midodrine (Proamatine) 10 mg PO TID [facility] Last Admin: 11/06/16 16:11 Dose: 10 mg Mupirocin (Bactroban Ointment) 1 applic TOP BID [facility] Last Admin: 11/06/16 16:09 Dose: 1 applic Nystatin (Nystop Topical Powder) 1 applic TOP TID [facility] Last Admin: 11/06/16 16:10 Dose: 1 applic Pantoprazole Sodium (Protonix Ec Tab) 40 mg PO DAILY [facility] Last Admin: 11/06/16 08:57 Dose: 40 mg Vancomycin HCl (Vancocin (Oral/Rectal Use)) 250 mg PO Q8 [facility] Last Admin: 11/06/16 16:12 Dose: 250 mg - Labs Labs: 11/01/16 10:46 11/04/16 08:30 - Respiratory Exam Respiratory Exam: NORMAL BREATHING PATTERN - Cardiovascular Exam Cardiovascular Exam: REGULAR RHYTHM - GI/Abdominal Exam GI & Abdominal Exam: Normal Bowel Sounds Assessment and Plan - Assessment and Plan (Free Text) Assessment: Low ext weakness?? MSA Parkinsons DX Shry Drager PT Rytary as per Neuro Urine CS g-rods Abx ID MRSA Nares Bactroban S/P Bradycardia Hypotenson chronic A-fib Sepsis ? Autonomic dysfunction? IVF Midodrine ID Cardiology Disposition?? awaiting transfer to [place] Pt has medical decision making capacity but is financially vulnerable and would benefit from legal guardianship Court and Social service involved Pt is [place] Lethargy?? improved Baclofen d/c Infection resolved Reconsult Neuro R shoulder pain Dec ROM xrays subluxation Ultram PRN PT Gastroentritis? resolved d/c flagyl LGI bleed Thrombocytopenia Thrombocytopenia chronic Decubitus ulcer buttocks DVT prophylaxis SCD (no Lovenox due to thrombocytopenia) S/P UTI Enterrococus S/P Urinary retention S/P UTI Proteus S/P Pnuemonia S/P Hypotension [employer] 2 to Dehydration Meds
[2016-11-07] MEDS: metroNIDAZOLE 500mg/100ml NS 100 ML IVPB SCH ×3 (00:41→16:02)
[2016-11-07] MEDS: Vancomycin 500 mg (Oral/Rectal USE) PO SCH ×3 (00:45→16:03)
[2016-11-07] MEDS: CARBIDOPA PO SCH ×3 (05:18→21:49)
[2016-11-07] MEDS: LEVODOPA PO SCH ×3 (05:18→21:49)
[2016-11-07] MEDS: Bethanechol 50 MG TAB PO SCH ×3 (08:27→16:03)
[2016-11-07] MEDS: Pantoprazole 40 mg EC Tab PO SCH (08:28)
[2016-11-07] MEDS: Benzocaine/Menthol (Cepacol) Lozenge PO PRN (16:00)
--- NOTE | 2016-11-07 20:24 | CP.PCM.PN ---
Subjective - Date & Time of Evaluation Date of Evaluation: 11/07/16 Time of Evaluation: 22:22 - Subjective Subjective: Afebrile Objective - Vital Signs/Intake and Output Vital Signs (last 24 hours): Temp Pulse Resp BP Pulse Ox 97.7 F 89 18 126/80 96 11/07/16 15:47 11/07/16 15:47 11/07/16 15:47 11/07/16 15:47 11/07/16 15:47 - Medications Medications: Current Medications Acetaminophen (Tylenol 325mg Tab) 650 mg PO Q6 PRN PRN Reason: Pain, Mild (1-3) Last Admin: 10/22/16 20:55 Dose: 650 mg Amantadine HCl (Amantadine 100 Mg Cap) 100 mg PO BID [facility] Last Admin: 11/07/16 16:01 Dose: 100 mg Benzocaine/Menthol (Cepacol Sore Throat) 1 morro PO Q3 PRN PRN Reason: Sore Throat Last Admin: 11/07/16 16:00 Dose: 1 morro Bethanechol Chloride (Urecholine) 50 mg PO TID [facility] Last Admin: 11/07/16 16:03 Dose: 50 mg Carbidopa/Levodopa (Rytary Er 48.75 Mg-195 Mg Cap) 1 cap PO TID@0500,1300,2100 [facility] Last Admin: 11/07/16 12:16 Dose: 1 cap Fluocinonide (Lidex 0.05% Oint) 1 applic TOP BID PRN PRN Reason: Rash Last Admin: 11/06/16 08:55 Dose: 1 applic Metronidazole (Flagyl 500mg/100ml Ns) 100 mls @ 100 mls/hr IVPB Q8 [facility] Last Admin: 11/07/16 16:02 Dose: 100 mls/hr Magnesium Hydroxide (Milk Of Magnesia) 30 ml PO DAILY PRN PRN Reason: Constipation Last Admin: 10/29/16 05:03 Dose: 30 ml Midodrine (Proamatine) 10 mg PO TID [facility] Last Admin: 11/07/16 16:03 Dose: 10 mg Mupirocin (Bactroban Ointment) 1 applic TOP BID [facility] Last Admin: 11/07/16 16:01 Dose: 1 applic Nystatin (Nystop Topical Powder) 1 applic TOP TID [facility] Last Admin: 11/07/16 16:02 Dose: 1 applic Pantoprazole Sodium (Protonix Ec Tab) 40 mg PO DAILY [facility] Last Admin: 11/07/16 08:28 Dose: 40 mg Vancomycin HCl (Vancocin (Oral/Rectal Use)) 250 mg PO Q8 [facility] Last Admin: 11/07/16 16:03 Dose: 250 mg - Labs Labs: 11/01/16 10:46 11/04/16 08:30 - Respiratory Exam Respiratory Exam: NORMAL BREATHING PATTERN - Cardiovascular Exam Cardiovascular Exam: REGULAR RHYTHM - GI/Abdominal Exam GI & Abdominal Exam: Normal Bowel Sounds Assessment and Plan - Assessment and Plan (Free Text) Assessment: Urine CS psuedomonas ? discuss with ID Diarrhea?? presently on Vanco Flagyl Low ext weakness?? MSA Parkinsons DX Shry Drager PT Rytary as per Neuro MRSA Nares Bactroban S/P Bradycardia Hypotenson chronic A-fib Sepsis ? Autonomic dysfunction? IVF Midodrine ID Cardiology Disposition?? awaiting transfer to [place] Pt has medical decision making capacity but is financially vulnerable and would benefit from legal guardianship Court and Social service involved Pt is [place] Lethargy?? improved Baclofen d/c Infection resolved Reconsult Neuro R shoulder pain Dec ROM xrays subluxation Ultram PRN PT Gastroentritis? resolved d/c flagyl LGI bleed Thrombocytopenia Thrombocytopenia chronic Decubitus ulcer buttocks DVT prophylaxis SCD (no Lovenox due to thrombocytopenia) S/P UTI Enterrococus S/P Urinary retention S/P UTI Proteus S/P Pnuemonia S/P Hypotension [employer] 2 to Dehydration Meds
[2016-11-08] MEDS: metroNIDAZOLE 500mg/100ml NS 100 ML IVPB SCH ×3 (01:44→18:49)
[2016-11-08] MEDS: Vancomycin 500 mg (Oral/Rectal USE) PO SCH ×3 (01:47→18:48)
[2016-11-08] MEDS: LEVODOPA PO SCH ×3 (04:03→20:57)
[2016-11-08] MEDS: CARBIDOPA PO SCH ×3 (04:03→20:57)
[2016-11-08 08:09] LABS: BASO # 0.1 K/uL (0.0-0.2); EOS # 0.5 K/uL (0.0-0.7); EOS % 7.1 % (0.0-4.0); HEMOGLOBIN 12.1 g/dL (12.0-18.0); LYMPH # 1.5 K/uL (1.0-4.3); LYMPH % 23.3 % (20.0-40.0); MEAN CELL VOLUME 92.7 fl (80.0-94.0); MEAN CORPUSCULAR HEMOGLOBIN 30.8 pg (27.0-31.0); MEAN CORPUSCULAR HGB CONC 33.3 g/dL (33.0-37.0); MEAN PLATELET VOLUME 10.4 fl (7.2-11.7); MONO # 0.5 K/uL (0.0-0.8); MONO % 7.7 % (0.0-10.0); NEUT # 3.9 K/uL (1.8-7.0); NEUT % 60.9 % (50.0-75.0); NRBC % 0.1 % (0.0-0.0); RBC 3.92 Mil/uL (4.40-5.90); RED CELL DISTRIBUTION WIDTH 14.4 % (11.5-14.5); WHITE BLOOD COUNT 6.4 K/uL (4.8-10.8)
[2016-11-08 08:40] LABS: ALB/GLOB RATIO 1.1 (1.0-2.1); ALBUMIN 3.5 g/dL (3.5-5.0); ALT/SGPT 14 U/L (21-72); AST/SGOT 22 U/L (17-59); BLOOD UREA NITROGEN 20 mg/dl (9-20); CALCIUM 8.7 mg/dL (8.4-10.2); GFR AFRICAN-AMERICAN > 60; GFR NON-AFRICAN AMERICAN > 60
[2016-11-08] MEDS: Bethanechol 50 MG TAB PO SCH ×3 (10:34→18:48)
[2016-11-08] MEDS: Pantoprazole 40 mg EC Tab PO SCH (10:34)
--- NOTE | 2016-11-08 13:13 | CP.PCM.PN ---
Subjective - Date & Time of Evaluation Date of Evaluation: 11/08/16 Time of Evaluation: 08:00 - Subjective Subjective: urine grew MDR Pseudomonas 11/01/16 denies urinary complaints U/A was benign - no leukocytes Improving on rx for c diff cont Vanco/Flagyl for now Objective - Vital Signs/Intake and Output Vital Signs (last 24 hours): Temp Pulse Resp BP Pulse Ox 97.7 F 62 20 123/77 99 11/08/16 08:07 11/08/16 08:07 11/08/16 08:07 11/08/16 08:07 11/08/16 08:07 - Medications Medications: Current Medications Acetaminophen (Tylenol 325mg Tab) 650 mg PO Q6 PRN PRN Reason: Pain, Mild (1-3) Last Admin: 11/08/16 12:10 Dose: 650 mg Amantadine HCl (Amantadine 100 Mg Cap) 100 mg PO BID [facility] Last Admin: 11/08/16 10:32 Dose: 100 mg Benzocaine/Menthol (Cepacol Sore Throat) 1 morro PO Q3 PRN PRN Reason: Sore Throat Last Admin: 11/07/16 16:00 Dose: 1 morro Bethanechol Chloride (Urecholine) 50 mg PO TID [facility] Last Admin: 11/08/16 12:13 Dose: 50 mg Carbidopa/Levodopa (Rytary Er 48.75 Mg-195 Mg Cap) 1 cap PO TID@0500,1300,2100 [facility] Last Admin: 11/08/16 12:12 Dose: 1 cap Fluocinonide (Lidex 0.05% Oint) 1 applic TOP BID PRN PRN Reason: Rash Last Admin: 11/06/16 08:55 Dose: 1 applic Metronidazole (Flagyl 500mg/100ml Ns) 100 mls @ 100 mls/hr IVPB Q8 [facility] Last Admin: 11/08/16 10:32 Dose: 100 mls/hr Magnesium Hydroxide (Milk Of Magnesia) 30 ml PO DAILY PRN PRN Reason: Constipation Last Admin: 10/29/16 05:03 Dose: 30 ml Midodrine (Proamatine) 10 mg PO TID [facility] Last Admin: 11/08/16 12:12 Dose: 10 mg Mupirocin (Bactroban Ointment) 1 applic TOP BID [facility] Last Admin: 11/08/16 10:32 Dose: 1 applic Nystatin (Nystop Topical Powder) 1 applic TOP TID [facility] Last Admin: 11/08/16 12:12 Dose: 1 applic Pantoprazole Sodium (Protonix Ec Tab) 40 mg PO DAILY [facility] Last Admin: 11/08/16 10:34 Dose: 40 mg Vancomycin HCl (Vancocin (Oral/Rectal Use)) 250 mg PO Q8 [facility] Last Admin: 11/08/16 10:34 Dose: 250 mg - Labs Labs: 11/08/16 07:45 11/08/16 07:45 - Constitutional Appears: Non-toxic - Head Exam Head Exam: NORMOCEPHALIC - Eye Exam Eye Exam: PERRL. absent: Scleral icterus - ENT Exam ENT Exam: Mucous Membranes Dry, Normal External Ear Exam - Neck Exam Neck Exam: absent: Lymphadenopathy - Respiratory Exam Respiratory Exam: Decreased Breath Sounds, Rhonchi - Cardiovascular Exam Cardiovascular Exam: REGULAR RHYTHM - GI/Abdominal Exam GI & Abdominal Exam: Distended, Soft - Rectal Exam Rectal Exam: Deferred - Exam Exam: NORMAL INSPECTION - Extremities Exam Extremities Exam: absent: Pedal Edema - Back Exam Back Exam: absent: CVA tenderness (L), CVA tenderness (R) - Neurological Exam Neurological Exam: Alert, Altered, Awake Assessment and Plan (1) Parkinsonism Status: Acute (2) Bradyarrhythmia Status: Acute - Assessment and Plan (Free Text) Plan: cont empiric rx for c diff
--- NOTE | 2016-11-08 19:23 | CP.PCM.PN ---
Subjective - Date & Time of Evaluation Date of Evaluation: 11/08/16 Time of Evaluation: 22:22 - Subjective Subjective: Above noted Objective - Vital Signs/Intake and Output Vital Signs (last 24 hours): Temp Pulse Resp BP Pulse Ox 98.1 F 65 18 136/72 99 11/08/16 16:45 11/08/16 16:45 11/08/16 16:45 11/08/16 16:45 11/08/16 16:45 - Medications Medications: Current Medications Acetaminophen (Tylenol 325mg Tab) 650 mg PO Q6 PRN PRN Reason: Pain, Mild (1-3) Last Admin: 11/08/16 12:10 Dose: 650 mg Amantadine HCl (Amantadine 100 Mg Cap) 100 mg PO BID [facility] Last Admin: 11/08/16 18:47 Dose: 100 mg Benzocaine/Menthol (Cepacol Sore Throat) 1 morro PO Q3 PRN PRN Reason: Sore Throat Last Admin: 11/07/16 16:00 Dose: 1 morro Bethanechol Chloride (Urecholine) 50 mg PO TID [facility] Last Admin: 11/08/16 18:48 Dose: 50 mg Carbidopa/Levodopa (Rytary Er 48.75 Mg-195 Mg Cap) 1 cap PO TID@0500,1300,2100 [facility] Last Admin: 11/08/16 12:12 Dose: 1 cap Fluocinonide (Lidex 0.05% Oint) 1 applic TOP BID PRN PRN Reason: Rash Last Admin: 11/06/16 08:55 Dose: 1 applic Metronidazole (Flagyl 500mg/100ml Ns) 100 mls @ 100 mls/hr IVPB Q8 [facility] Last Admin: 11/08/16 18:49 Dose: 100 mls/hr Magnesium Hydroxide (Milk Of Magnesia) 30 ml PO DAILY PRN PRN Reason: Constipation Last Admin: 10/29/16 05:03 Dose: 30 ml Midodrine (Proamatine) 10 mg PO TID [facility] Last Admin: 11/08/16 18:47 Dose: 10 mg Mupirocin (Bactroban Ointment) 1 applic TOP BID [facility] Last Admin: 11/08/16 18:47 Dose: 1 applic Pantoprazole Sodium (Protonix Ec Tab) 40 mg PO DAILY [facility] Last Admin: 11/08/16 10:34 Dose: 40 mg Vancomycin HCl (Vancocin (Oral/Rectal Use)) 250 mg PO Q8 [facility] Last Admin: 11/08/16 18:48 Dose: 250 mg - Labs Labs: 11/08/16 07:45 11/08/16 07:45 - Respiratory Exam Respiratory Exam: NORMAL BREATHING PATTERN - Cardiovascular Exam Cardiovascular Exam: REGULAR RHYTHM - GI/Abdominal Exam GI & Abdominal Exam: Normal Bowel Sounds Assessment and Plan - Assessment and Plan (Free Text) Assessment: Diarrhea ?? c-diff presently on Vanco Flagyl Urine CS psuedomonas ? UA wnl Low ext weakness?? Dx progression MSA Parkinsons DX Shry Drager PT Rytary as per Neuro MRSA Nares Bactroban S/P Bradycardia Hypotenson chronic A-fib Sepsis ? Autonomic dysfunction? IVF Midodrine ID Cardiology Disposition?? awaiting transfer to [place] Pt has medical decision making capacity but is financially vulnerable and would benefit from legal guardianship Court and Social service involved Pt is [place] WW[place] Lethargy?? improved Baclofen d/c Infection resolved Reconsult Neuro R shoulder pain Dec ROM xrays subluxation Ultram PRN PT Gastroentritis? resolved d/c flagyl LGI bleed Thrombocytopenia Thrombocytopenia chronic Decubitus ulcer buttocks DVT prophylaxis SCD (no Lovenox due to thrombocytopenia) S/P UTI Enterrococus S/P Urinary retention S/P UTI Proteus S/P Pnuemonia S/P Hypotension [employer] 2 to Dehydration Meds
[2016-11-09] MEDS: Vancomycin 500 mg (Oral/Rectal USE) PO SCH ×3 (01:38→16:12)
[2016-11-09] MEDS: metroNIDAZOLE 500mg/100ml NS 100 ML IVPB SCH ×3 (01:38→16:00)
[2016-11-09] MEDS: CARBIDOPA PO SCH ×3 (06:00→21:58)
[2016-11-09] MEDS: LEVODOPA PO SCH ×3 (06:00→21:58)
--- NOTE | 2016-11-09 07:02 | RAD ---
HISTORY: R/O Fecal Impaction with oozing around impaction COMPARISON: No prior. FINDINGS: BOWEL: Normal. No obstruction. No free air. BONES: Normal. OTHER FINDINGS: None. IMPRESSION: No active disease.
[2016-11-09] MEDS: Bethanechol 50 MG TAB PO SCH ×3 (09:38→16:15)
[2016-11-09] MEDS: Pantoprazole 40 mg EC Tab PO SCH (09:39)
[2016-11-09 15:39] LABS: URINE BILIRUBIN NEGATIVE (NEGATIVE); URINE BLOOD NEGATIVE (NEGATIVE); URINE CLARITY CLEAR (Clear); URINE COLOR YELLOW (YELLOW); URINE GLUCOSE (UA) NEG (Normal); URINE LEUKOCYTE ESTERASE TRACE Leu/uL (Negative); URINE NITRATE NEGATIVE (NEGATIVE); URINE PROTEIN NEGATIVE (NEGATIVE); URINE UROBILINOGEN 0.2-1.0 mg/dL (0.2-1.0)
--- NOTE | 2016-11-09 19:51 | CP.PCM.PN ---
Subjective - Date & Time of Evaluation Date of Evaluation: 11/09/16 Time of Evaluation: 22:22 - Subjective Subjective: More alert Objective - Vital Signs/Intake and Output Vital Signs (last 24 hours): Temp Pulse Resp BP Pulse Ox 97.7 F 66 20 119/72 99 11/09/16 16:39 11/09/16 16:39 11/09/16 16:39 11/09/16 16:39 11/09/16 16:39 - Medications Medications: Current Medications Acetaminophen (Tylenol 325mg Tab) 650 mg PO Q6 PRN PRN Reason: Pain, Mild (1-3) Last Admin: 11/08/16 12:10 Dose: 650 mg Amantadine HCl (Amantadine 100 Mg Cap) 100 mg PO BID [facility] Last Admin: 11/09/16 16:13 Dose: 100 mg Benzocaine/Menthol (Cepacol Sore Throat) 1 morro PO Q3 PRN PRN Reason: Sore Throat Last Admin: 11/07/16 16:00 Dose: 1 morro Bethanechol Chloride (Urecholine) 50 mg PO TID [facility] Last Admin: 11/09/16 16:15 Dose: 50 mg Carbidopa/Levodopa (Rytary Er 48.75 Mg-195 Mg Cap) 1 cap PO TID@0500,1300,2100 [facility] Last Admin: 11/09/16 12:05 Dose: 1 cap Fluocinonide (Lidex 0.05% Oint) 1 applic TOP BID PRN PRN Reason: Rash Last Admin: 11/06/16 08:55 Dose: 1 applic Metronidazole (Flagyl 500mg/100ml Ns) 100 mls @ 100 mls/hr IVPB Q8 [facility] Last Admin: 11/09/16 16:00 Dose: 100 mls/hr Magnesium Hydroxide (Milk Of Magnesia) 30 ml PO DAILY PRN PRN Reason: Constipation Last Admin: 10/29/16 05:03 Dose: 30 ml Midodrine (Proamatine) 10 mg PO TID [facility] Last Admin: 11/09/16 16:14 Dose: 10 mg Mupirocin (Bactroban Ointment) 1 applic TOP BID [facility] Last Admin: 11/09/16 16:13 Dose: 1 applic Pantoprazole Sodium (Protonix Ec Tab) 40 mg PO DAILY [facility] Last Admin: 11/09/16 09:39 Dose: 40 mg Vancomycin HCl (Vancocin (Oral/Rectal Use)) 250 mg PO Q8 [facility] Last Admin: 11/09/16 16:12 Dose: 250 mg - Labs Labs: 11/08/16 07:45 11/08/16 07:45 - Respiratory Exam Respiratory Exam: NORMAL BREATHING PATTERN - Cardiovascular Exam Cardiovascular Exam: REGULAR RHYTHM - GI/Abdominal Exam GI & Abdominal Exam: Normal Bowel Sounds Assessment and Plan - Assessment and Plan (Free Text) Assessment: Diarrhea ?? c-diff presently on Vanco Flagyl Urine CS psuedomonas ? UA wnl Low ext weakness?? Dx progression MSA Parkinsons DX Shry Drager PT Rytary as per Neuro MRSA Nares Bactroban S/P Bradycardia Hypotenson chronic A-fib Sepsis ? Autonomic dysfunction? IVF Midodrine ID Cardiology Disposition?? awaiting transfer to [place] Pt has medical decision making capacity but is financially vulnerable and would benefit from legal guardianship Court and Social service involved Pt is [place] Lethargy?? improved Baclofen d/c Infection resolved Reconsult Neuro R shoulder pain Dec ROM xrays subluxation Ultram PRN PT Gastroentritis? resolved d/c flagyl LGI bleed Thrombocytopenia Thrombocytopenia chronic Decubitus ulcer buttocks DVT prophylaxis SCD (no Lovenox due to thrombocytopenia) S/P UTI Enterrococus S/P Urinary retention S/P UTI Proteus S/P Pnuemonia S/P Hypotension [employer] 2 to Dehydration Meds
[2016-11-10] MEDS: Vancomycin 500 mg (Oral/Rectal USE) PO SCH ×4 (00:37→23:59)
[2016-11-10] MEDS: metroNIDAZOLE 500mg/100ml NS 100 ML IVPB SCH ×4 (00:38→23:57)
[2016-11-10] MEDS: CARBIDOPA PO SCH ×3 (04:53→20:29)
[2016-11-10] MEDS: LEVODOPA PO SCH ×3 (04:53→20:29)
[2016-11-10] MEDS: Bethanechol 50 MG TAB PO SCH ×3 (08:34→16:05)
[2016-11-10] MEDS: Pantoprazole 40 mg EC Tab PO SCH (08:34)
[2016-11-10] MEDS: Benzocaine/Menthol (Cepacol) Lozenge PO PRN (10:17)
--- NOTE | 2016-11-10 16:34 | CP.PCM.PN ---
Subjective - Date & Time of Evaluation Date of Evaluation: 11/10/16 Time of Evaluation: 22:22 - Subjective Subjective: Above noted Objective - Vital Signs/Intake and Output Vital Signs (last 24 hours): Temp Pulse Resp BP Pulse Ox 97.6 F 74 20 174/78 H 99 11/10/16 07:56 11/10/16 07:56 11/10/16 07:56 11/10/16 07:56 11/10/16 07:56 - Medications Medications: Current Medications Acetaminophen (Tylenol 325mg Tab) 650 mg PO Q6 PRN PRN Reason: Pain, Mild (1-3) Last Admin: 11/08/16 12:10 Dose: 650 mg Amantadine HCl (Amantadine 100 Mg Cap) 100 mg PO BID [facility] Last Admin: 11/10/16 16:07 Dose: 100 mg Benzocaine/Menthol (Cepacol Sore Throat) 1 morro PO Q3 PRN PRN Reason: Sore Throat Last Admin: 11/10/16 10:17 Dose: 1 morro Bethanechol Chloride (Urecholine) 50 mg PO TID [facility] Last Admin: 11/10/16 16:05 Dose: 50 mg Carbidopa/Levodopa (Rytary Er 48.75 Mg-195 Mg Cap) 1 cap PO TID@0500,1300,2100 [facility] Last Admin: 11/10/16 12:41 Dose: 1 cap Fluocinonide (Lidex 0.05% Oint) 1 applic TOP BID PRN PRN Reason: Rash Last Admin: 11/10/16 08:35 Dose: 1 applic Metronidazole (Flagyl 500mg/100ml Ns) 100 mls @ 100 mls/hr IVPB Q8 [facility] Last Admin: 11/10/16 16:12 Dose: 100 mls/hr Magnesium Hydroxide (Milk Of Magnesia) 30 ml PO DAILY PRN PRN Reason: Constipation Last Admin: 10/29/16 05:03 Dose: 30 ml Midodrine (Proamatine) 10 mg PO TID [facility] Last Admin: 11/10/16 16:11 Dose: 10 mg Mupirocin (Bactroban Ointment) 1 applic TOP BID [facility] Last Admin: 11/10/16 16:11 Dose: 1 applic Pantoprazole Sodium (Protonix Ec Tab) 40 mg PO DAILY [facility] Last Admin: 11/10/16 08:34 Dose: 40 mg Vancomycin HCl (Vancocin (Oral/Rectal Use)) 250 mg PO Q8 [facility] Last Admin: 11/10/16 16:05 Dose: 250 mg - Labs Labs: 11/08/16 07:45 11/08/16 07:45 - Respiratory Exam Respiratory Exam: NORMAL BREATHING PATTERN - Cardiovascular Exam Cardiovascular Exam: REGULAR RHYTHM - GI/Abdominal Exam GI & Abdominal Exam: Normal Bowel Sounds Assessment and Plan - Assessment and Plan (Free Text) Assessment: Diarrhea ?? c-diff presently on Vanco Flagyl Urine CS psuedomonas ? UA wnl Low ext weakness?? Dx progression MSA Parkinsons DX Shry Drager PT Rytary as per Neuro MRSA Nares Bactroban S/P Bradycardia Hypotenson chronic A-fib Sepsis ? Autonomic dysfunction? IVF Midodrine ID Cardiology Disposition?? awaiting transfer to [place] Pt has medical decision making capacity but is financially vulnerable and would benefit from legal guardianship Court and Social service involved Pt is [place] Lethargy?? improved Baclofen d/c Infection resolved Reconsult Neuro R shoulder pain Dec ROM xrays subluxation Ultram PRN PT Gastroentritis? resolved d/c flagyl LGI bleed Thrombocytopenia Thrombocytopenia chronic Decubitus ulcer buttocks DVT prophylaxis SCD (no Lovenox due to thrombocytopenia) S/P UTI Enterrococus S/P Urinary retention S/P UTI Proteus S/P Pnuemonia S/P Hypotension [employer] 2 to Dehydration Meds
[2016-11-11] MEDS: LEVODOPA PO SCH ×3 (04:26→21:58)
[2016-11-11] MEDS: CARBIDOPA PO SCH ×3 (04:26→21:58)
[2016-11-11] MEDS: metroNIDAZOLE 500mg/100ml NS 100 ML IVPB SCH ×2 (09:00→16:45)
[2016-11-11] MEDS: Pantoprazole 40 mg EC Tab PO SCH (09:01)
[2016-11-11] MEDS: Bethanechol 50 MG TAB PO SCH ×3 (09:02→16:46)
[2016-11-11] MEDS: Vancomycin 500 mg (Oral/Rectal USE) PO SCH ×2 (09:02→16:47)
--- NOTE | 2016-11-11 23:05 | CP.PCM.PN ---
Subjective - Date & Time of Evaluation Date of Evaluation: 11/11/16 Time of Evaluation: 22:22 - Subjective Subjective: Abdominal xrays negative Objective - Vital Signs/Intake and Output Vital Signs (last 24 hours): Temp Pulse Resp BP Pulse Ox 97.6 F 69 20 162/88 H 99 11/11/16 16:56 11/11/16 16:56 11/11/16 16:56 11/11/16 16:56 11/11/16 16:56 - Medications Medications: Current Medications Acetaminophen (Tylenol 325mg Tab) 650 mg PO Q6 PRN PRN Reason: Pain, Mild (1-3) Last Admin: 11/08/16 12:10 Dose: 650 mg Amantadine HCl (Amantadine 100 Mg Cap) 100 mg PO BID [facility] Last Admin: 11/11/16 16:45 Dose: 100 mg Benzocaine/Menthol (Cepacol Sore Throat) 1 morro PO Q3 PRN PRN Reason: Sore Throat Last Admin: 11/10/16 10:17 Dose: 1 morro Bethanechol Chloride (Urecholine) 50 mg PO TID [facility] Last Admin: 11/11/16 16:46 Dose: 50 mg Carbidopa/Levodopa (Rytary Er 48.75 Mg-195 Mg Cap) 1 cap PO TID@0500,1300,2100 [facility] Last Admin: 11/11/16 21:58 Dose: 1 cap Fluocinonide (Lidex 0.05% Oint) 1 applic TOP BID PRN PRN Reason: Rash Last Admin: 11/10/16 08:35 Dose: 1 applic Metronidazole (Flagyl 500mg/100ml Ns) 100 mls @ 100 mls/hr IVPB Q8 [facility] Last Admin: 11/11/16 16:45 Dose: 100 mls/hr Magnesium Hydroxide (Milk Of Magnesia) 30 ml PO DAILY PRN PRN Reason: Constipation Last Admin: 10/29/16 05:03 Dose: 30 ml Midodrine (Proamatine) 10 mg PO TID [facility] Last Admin: 11/11/16 16:46 Dose: 10 mg Mupirocin (Bactroban Ointment) 1 applic TOP BID [facility] Last Admin: 11/11/16 16:45 Dose: 1 applic Pantoprazole Sodium (Protonix Ec Tab) 40 mg PO DAILY [facility] Last Admin: 11/11/16 09:01 Dose: 40 mg Vancomycin HCl (Vancocin (Oral/Rectal Use)) 250 mg PO Q8 [facility] Last Admin: 11/11/16 16:47 Dose: 250 mg - Labs Labs: 11/08/16 07:45 11/08/16 07:45 - Respiratory Exam Respiratory Exam: NORMAL BREATHING PATTERN - Cardiovascular Exam Cardiovascular Exam: REGULAR RHYTHM - GI/Abdominal Exam GI & Abdominal Exam: Normal Bowel Sounds Assessment and Plan - Assessment and Plan (Free Text) Assessment: Diarrhea ?? c-diff presently on Vanco Flagyl Urine CS psuedomonas ? UA wnl Low ext weakness?? Dx progression MSA Parkinsons DX Shry Drager PT Rytary as per Neuro MRSA Nares Bactroban S/P Bradycardia Hypotenson chronic A-fib Sepsis ? Autonomic dysfunction? IVF Midodrine ID Cardiology Disposition?? awaiting transfer to [place] Pt has medical decision making capacity but is financially vulnerable and would benefit from legal guardianship Court and Social service involved Pt is [place] WW[place] Lethargy?? improved Baclofen d/c Infection resolved Reconsult Neuro R shoulder pain Dec ROM xrays subluxation Ultram PRN PT Gastroentritis? resolved d/c flagyl LGI bleed Thrombocytopenia Thrombocytopenia chronic Decubitus ulcer buttocks DVT prophylaxis SCD (no Lovenox due to thrombocytopenia) S/P UTI Enterrococus S/P Urinary retention S/P UTI Proteus S/P Pnuemonia S/P Hypotension [employer] 2 to Dehydration Meds
[2016-11-12] MEDS: metroNIDAZOLE 500mg/100ml NS 100 ML IVPB SCH ×2 (00:02→08:17)
[2016-11-12] MEDS: Vancomycin 500 mg (Oral/Rectal USE) PO SCH ×3 (00:03→16:05)
[2016-11-12] MEDS: CARBIDOPA PO SCH ×3 (04:38→20:31)
[2016-11-12] MEDS: LEVODOPA PO SCH ×3 (04:38→20:31)
[2016-11-12] MEDS: Bethanechol 50 MG TAB PO SCH ×3 (08:14→16:09)
[2016-11-12] MEDS: Pantoprazole 40 mg EC Tab PO SCH (08:16)
--- NOTE | 2016-11-12 19:22 | CP.PCM.PN ---
Subjective - Date & Time of Evaluation Date of Evaluation: 11/12/16 Time of Evaluation: 22:22 - Subjective Subjective: Flagyl and Vanco Objective - Vital Signs/Intake and Output Vital Signs (last 24 hours): Temp Pulse Resp BP Pulse Ox 97.8 F 64 20 148/77 98 11/12/16 16:19 11/12/16 16:19 11/12/16 16:19 11/12/16 16:19 11/12/16 16:19 - Medications Medications: Current Medications Acetaminophen (Tylenol 325mg Tab) 650 mg PO Q6 PRN PRN Reason: Pain, Mild (1-3) Last Admin: 11/08/16 12:10 Dose: 650 mg Amantadine HCl (Amantadine 100 Mg Cap) 100 mg PO BID [facility] Last Admin: 11/12/16 16:08 Dose: 100 mg Benzocaine/Menthol (Cepacol Sore Throat) 1 morro PO Q3 PRN PRN Reason: Sore Throat Last Admin: 11/10/16 10:17 Dose: 1 morro Bethanechol Chloride (Urecholine) 50 mg PO TID [facility] Last Admin: 11/12/16 16:09 Dose: 50 mg Carbidopa/Levodopa (Rytary Er 48.75 Mg-195 Mg Cap) 1 cap PO TID@0500,1300,2100 [facility] Last Admin: 11/12/16 12:23 Dose: 1 cap Fluocinonide (Lidex 0.05% Oint) 1 applic TOP BID PRN PRN Reason: Rash Last Admin: 11/10/16 08:35 Dose: 1 applic Magnesium Hydroxide (Milk Of Magnesia) 30 ml PO DAILY PRN PRN Reason: Constipation Last Admin: 10/29/16 05:03 Dose: 30 ml Metronidazole (Flagyl) 500 mg PO Q8 [facility] Last Admin: 11/12/16 16:08 Dose: 500 mg Midodrine (Proamatine) 10 mg PO TID [facility] Last Admin: 11/12/16 16:08 Dose: 10 mg Mupirocin (Bactroban Ointment) 1 applic TOP BID [facility] Last Admin: 11/12/16 16:07 Dose: 1 applic Pantoprazole Sodium (Protonix Ec Tab) 40 mg PO DAILY [facility] Last Admin: 11/12/16 08:16 Dose: 40 mg Vancomycin HCl (Vancocin (Oral/Rectal Use)) 250 mg PO Q8 [facility] Last Admin: 11/12/16 16:05 Dose: 250 mg - Labs Labs: 11/08/16 07:45 11/08/16 07:45 - Respiratory Exam Respiratory Exam: NORMAL BREATHING PATTERN - Cardiovascular Exam Cardiovascular Exam: REGULAR RHYTHM - GI/Abdominal Exam GI & Abdominal Exam: Normal Bowel Sounds Assessment and Plan - Assessment and Plan (Free Text) Assessment: Diarrhea ?? c-diff presently on Vanco Flagyl Urine CS psuedomonas ? UA wnl Low ext weakness?? Dx progression MSA Parkinsons DX Shry Drager PT Rytary as per Neuro MRSA Nares Bactroban S/P Bradycardia Hypotenson chronic A-fib Sepsis ? Autonomic dysfunction? IVF Midodrine ID Cardiology Disposition?? awaiting transfer to [place] Pt has medical decision making capacity but is financially vulnerable and would benefit from legal guardianship Court and Social service involved Pt is [place] WW[place] Lethargy?? improved Baclofen d/c Infection resolved Reconsult Neuro R shoulder pain Dec ROM xrays subluxation Ultram PRN PT Gastroentritis? resolved d/c flagyl LGI bleed Thrombocytopenia Thrombocytopenia chronic Decubitus ulcer buttocks DVT prophylaxis SCD (no Lovenox due to thrombocytopenia) S/P UTI Enterrococus S/P Urinary retention S/P UTI Proteus S/P Pnuemonia S/P Hypotension [employer] 2 to Dehydration Meds
[2016-11-12] MEDS: Benzocaine/Menthol (Cepacol) Lozenge PO PRN (20:31)
[2016-11-13] MEDS: Vancomycin 500 mg (Oral/Rectal USE) PO SCH ×3 (01:18→15:59)
[2016-11-13] MEDS: CARBIDOPA PO SCH ×3 (05:51→20:04)
[2016-11-13] MEDS: LEVODOPA PO SCH ×3 (05:51→20:04)
[2016-11-13] MEDS: Pantoprazole 40 mg EC Tab PO SCH (07:59)
[2016-11-13] MEDS: Bethanechol 50 MG TAB PO SCH ×3 (08:00→16:01)
--- NOTE | 2016-11-13 18:38 | CP.PCM.PN ---
Subjective - Date & Time of Evaluation Date of Evaluation: 11/13/16 Time of Evaluation: 22:22 - Subjective Subjective: Above noted Objective - Vital Signs/Intake and Output Vital Signs (last 24 hours): Temp Pulse Resp BP Pulse Ox 97.8 F 98 H 20 95/59 L 97 11/13/16 17:01 11/13/16 17:01 11/13/16 17:01 11/13/16 07:26 11/13/16 17:01 - Medications Medications: Current Medications Acetaminophen (Tylenol 325mg Tab) 650 mg PO Q6 PRN PRN Reason: Pain, Mild (1-3) Last Admin: 11/08/16 12:10 Dose: 650 mg Amantadine HCl (Amantadine 100 Mg Cap) 100 mg PO BID [facility] Last Admin: 11/13/16 16:02 Dose: 100 mg Benzocaine/Menthol (Cepacol Sore Throat) 1 morro PO Q3 PRN PRN Reason: Sore Throat Last Admin: 11/12/16 20:31 Dose: 1 morro Bethanechol Chloride (Urecholine) 50 mg PO TID [facility] Last Admin: 11/13/16 16:01 Dose: 50 mg Carbidopa/Levodopa (Rytary Er 48.75 Mg-195 Mg Cap) 1 cap PO TID@0500,1300,2100 [facility] Last Admin: 11/13/16 12:06 Dose: 1 cap Fluocinonide (Lidex 0.05% Oint) 1 applic TOP BID PRN PRN Reason: Rash Last Admin: 11/10/16 08:35 Dose: 1 applic Magnesium Hydroxide (Milk Of Magnesia) 30 ml PO DAILY PRN PRN Reason: Constipation Last Admin: 10/29/16 05:03 Dose: 30 ml Metronidazole (Flagyl) 500 mg PO Q8 [facility] Last Admin: 11/13/16 16:02 Dose: 500 mg Midodrine (Proamatine) 10 mg PO TID [facility] Last Admin: 11/13/16 16:01 Dose: 10 mg Mupirocin (Bactroban Ointment) 1 applic TOP BID [facility] Last Admin: 11/13/16 16:02 Dose: 1 applic Pantoprazole Sodium (Protonix Ec Tab) 40 mg PO DAILY [facility] Last Admin: 11/13/16 07:59 Dose: 40 mg Vancomycin HCl (Vancocin (Oral/Rectal Use)) 250 mg PO Q8 [facility] Last Admin: 11/13/16 15:59 Dose: 250 mg - Labs Labs: 11/08/16 07:45 11/08/16 07:45 - Respiratory Exam Respiratory Exam: NORMAL BREATHING PATTERN - Cardiovascular Exam Cardiovascular Exam: REGULAR RHYTHM - GI/Abdominal Exam GI & Abdominal Exam: Normal Bowel Sounds Assessment and Plan - Assessment and Plan (Free Text) Assessment: Diarrhea ?? c-diff presently on Vanco Flagyl Urine CS psuedomonas ? UA wnl Low ext weakness?? Dx progression MSA Parkinsons DX Shry Drager PT Rytary as per Neuro MRSA Nares Bactroban S/P Bradycardia Hypotenson chronic A-fib Sepsis ? Autonomic dysfunction? IVF Midodrine ID Cardiology Disposition?? [place] transfer [place] Pt has medical decision making capacity but is financially vulnerable and would benefit from legal guardianship Court and Social service involved Pt is [place] Lethargy?? improved Baclofen d/c Infection resolved Reconsult Neuro R shoulder pain Dec ROM xrays subluxation Ultram PRN PT Gastroentritis? resolved d/c flagyl LGI bleed Thrombocytopenia Thrombocytopenia chronic Decubitus ulcer buttocks DVT prophylaxis SCD (no Lovenox due to thrombocytopenia) S/P UTI Enterrococus S/P Urinary retention S/P UTI Proteus S/P Pnuemonia S/P Hypotension [employer]AB[employer] 2 to Dehydration Meds
[2016-11-14] MEDS: Vancomycin 500 mg (Oral/Rectal USE) PO SCH ×3 (00:30→16:07)
[2016-11-14] MEDS: CARBIDOPA PO SCH ×3 (05:47→20:45)
[2016-11-14] MEDS: LEVODOPA PO SCH ×3 (05:47→20:45)
[2016-11-14] MEDS: Pantoprazole 40 mg EC Tab PO SCH (09:57)
[2016-11-14] MEDS: Bethanechol 50 MG TAB PO SCH ×3 (09:57→16:08)
--- NOTE | 2016-11-14 20:29 | CP.PCM.PN ---
Subjective - Date & Time of Evaluation Date of Evaluation: 11/14/16 Time of Evaluation: 22:22 - Subjective Subjective: Above noted Objective - Vital Signs/Intake and Output Vital Signs (last 24 hours): Temp Pulse Resp BP Pulse Ox 97 F L 72 20 137/74 98 11/14/16 16:35 11/14/16 16:35 11/14/16 16:35 11/14/16 16:35 11/14/16 16:35 - Medications Medications: Current Medications Acetaminophen (Tylenol 325mg Tab) 650 mg PO Q6 PRN PRN Reason: Pain, Mild (1-3) Last Admin: 11/08/16 12:10 Dose: 650 mg Amantadine HCl (Amantadine 100 Mg Cap) 100 mg PO BID [facility] Last Admin: 11/14/16 16:09 Dose: 100 mg Benzocaine/Menthol (Cepacol Sore Throat) 1 morro PO Q3 PRN PRN Reason: Sore Throat Last Admin: 11/12/16 20:31 Dose: 1 morro Bethanechol Chloride (Urecholine) 50 mg PO TID [facility] Last Admin: 11/14/16 16:08 Dose: 50 mg Carbidopa/Levodopa (Rytary Er 48.75 Mg-195 Mg Cap) 1 cap PO TID@0500,1300,2100 [facility] Last Admin: 11/14/16 12:06 Dose: 1 cap Fluocinonide (Lidex 0.05% Oint) 1 applic TOP BID PRN PRN Reason: Rash Last Admin: 11/10/16 08:35 Dose: 1 applic Magnesium Hydroxide (Milk Of Magnesia) 30 ml PO DAILY PRN PRN Reason: Constipation Last Admin: 10/29/16 05:03 Dose: 30 ml Metronidazole (Flagyl) 500 mg PO Q8 [facility] Last Admin: 11/14/16 16:09 Dose: 500 mg Midodrine (Proamatine) 10 mg PO TID [facility] Last Admin: 11/14/16 16:08 Dose: 10 mg Mupirocin (Bactroban Ointment) 1 applic TOP BID [facility] Last Admin: 11/14/16 16:09 Dose: 1 applic Pantoprazole Sodium (Protonix Ec Tab) 40 mg PO DAILY [facility] Last Admin: 11/14/16 09:57 Dose: 40 mg Vancomycin HCl (Vancocin (Oral/Rectal Use)) 250 mg PO Q8 [facility] Last Admin: 11/14/16 16:07 Dose: 250 mg - Labs Labs: 11/08/16 07:45 11/08/16 07:45 - Respiratory Exam Respiratory Exam: NORMAL BREATHING PATTERN - Cardiovascular Exam Cardiovascular Exam: REGULAR RHYTHM - GI/Abdominal Exam GI & Abdominal Exam: Normal Bowel Sounds Assessment and Plan - Assessment and Plan (Free Text) Assessment: Diarrhea ?? c-diff presently on Vanco Flagyl Urine CS psuedomonas ? UA wnl Low ext weakness?? Dx progression MSA Parkinsons DX Shry Drager PT Rytary as per Neuro MRSA Nares Bactroban S/P Bradycardia Hypotenson chronic A-fib Sepsis ? Autonomic dysfunction? IVF Midodrine ID Cardiology Disposition?? awaiting transfer to [place] Pt has medical decision making capacity but is financially vulnerable and would benefit from legal guardianship Court and Social service involved Pt is WWII Lethargy?? improved Baclofen d/c Infection resolved Reconsult Neuro R shoulder pain Dec ROM xrays subluxation Ultram PRN PT Gastroentritis? 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
[2016-11-15] MEDS: Vancomycin 500 mg (Oral/Rectal USE) PO SCH ×3 (01:37→16:00)
[2016-11-15] MEDS: LEVODOPA PO SCH ×3 (04:26→21:12)
[2016-11-15] MEDS: CARBIDOPA PO SCH ×3 (04:26→21:12)
[2016-11-15] MEDS: Bethanechol 50 MG TAB PO SCH ×3 (08:03→16:00)
[2016-11-15] MEDS: Pantoprazole 40 mg EC Tab PO SCH (08:04)
--- NOTE | 2016-11-15 18:03 | CP.PCM.PN ---
Subjective - Date & Time of Evaluation Date of Evaluation: 11/15/16 Time of Evaluation: 22:22 - Subjective Subjective: Still with liquid stools Objective - Vital Signs/Intake and Output Vital Signs (last 24 hours): Temp Pulse Resp BP Pulse Ox 97.5 F L 56 L 20 96/60 L 95 11/15/16 07:48 11/15/16 07:48 11/15/16 07:48 11/15/16 07:48 11/15/16 07:48 - Medications Medications: Current Medications Acetaminophen (Tylenol 325mg Tab) 650 mg PO Q6 PRN PRN Reason: Pain, Mild (1-3) Last Admin: 11/08/16 12:10 Dose: 650 mg Amantadine HCl (Amantadine 100 Mg Cap) 100 mg PO BID [facility] Last Admin: 11/15/16 16:00 Dose: 100 mg Benzocaine/Menthol (Cepacol Sore Throat) 1 morro PO Q3 PRN PRN Reason: Sore Throat Last Admin: 11/12/16 20:31 Dose: 1 morro Bethanechol Chloride (Urecholine) 50 mg PO TID [facility] Last Admin: 11/15/16 16:00 Dose: 50 mg Carbidopa/Levodopa (Rytary Er 48.75 Mg-195 Mg Cap) 1 cap PO TID@0500,1300,2100 [facility] Last Admin: 11/15/16 11:59 Dose: 1 cap Fluocinonide (Lidex 0.05% Oint) 1 applic TOP BID PRN PRN Reason: Rash Last Admin: 11/10/16 08:35 Dose: 1 applic Magnesium Hydroxide (Milk Of Magnesia) 30 ml PO DAILY PRN PRN Reason: Constipation Last Admin: 10/29/16 05:03 Dose: 30 ml Metronidazole (Flagyl) 500 mg PO Q8 [facility] Last Admin: 11/15/16 16:00 Dose: 500 mg Midodrine (Proamatine) 10 mg PO TID [facility] Last Admin: 11/15/16 16:00 Dose: 10 mg Mupirocin (Bactroban Ointment) 1 applic TOP BID [facility] Last Admin: 11/15/16 16:00 Dose: 1 applic Pantoprazole Sodium (Protonix Ec Tab) 40 mg PO DAILY [facility] Last Admin: 11/15/16 08:04 Dose: 40 mg Vancomycin HCl (Vancocin (Oral/Rectal Use)) 250 mg PO Q8 [facility] Last Admin: 11/15/16 16:00 Dose: 250 mg - Labs Labs: 11/08/16 07:45 11/08/16 07:45 - Respiratory Exam Respiratory Exam: NORMAL BREATHING PATTERN - Cardiovascular Exam Cardiovascular Exam: REGULAR RHYTHM - GI/Abdominal Exam GI & Abdominal Exam: Normal Bowel Sounds Assessment and Plan - Assessment and Plan (Free Text) Assessment: Diarrhea ?? c-diff presently on Vanco Flagyl Urine CS psuedomonas ? UA wnl Low ext weakness?? Dx progression MSA Parkinsons DX Shry Drager PT Rytary as per Neuro MRSA Nares Bactroban S/P Bradycardia Hypotenson chronic A-fib Sepsis ? Autonomic dysfunction? IVF Midodrine ID Cardiology Disposition?? awaiting transfer to [place] Pt has medical decision making capacity but is financially vulnerable and would benefit from legal guardianship Court and Social service involved Pt is WWII Lethargy?? improved Baclofen d/c Infection resolved Reconsult Neuro R shoulder pain Dec ROM xrays subluxation Ultram PRN PT Gastroentritis? 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
[2016-11-16] MEDS: Vancomycin 500 mg (Oral/Rectal USE) PO SCH ×2 (00:31→17:08)
[2016-11-16] MEDS: LEVODOPA PO SCH ×3 (04:29→20:45)
[2016-11-16] MEDS: CARBIDOPA PO SCH ×3 (04:29→20:45)
[2016-11-16] MEDS: Pantoprazole 40 mg EC Tab PO SCH (08:28)
[2016-11-16] MEDS: Bethanechol 50 MG TAB PO SCH ×3 (08:28→16:55)
--- NOTE | 2016-11-16 20:16 | CP.PCM.PN ---
Subjective - Date & Time of Evaluation Date of Evaluation: 11/16/16 Time of Evaluation: 22:22 - Subjective Subjective: Doing well Objective - Vital Signs/Intake and Output Vital Signs (last 24 hours): Temp Pulse Resp BP Pulse Ox 98.4 F 60 18 159/80 H 97 11/16/16 17:00 11/16/16 17:00 11/16/16 17:00 11/16/16 17:00 11/16/16 17:00 - Medications Medications: Current Medications Acetaminophen (Tylenol 325mg Tab) 650 mg PO Q6 PRN PRN Reason: Pain, Mild (1-3) Last Admin: 11/08/16 12:10 Dose: 650 mg Amantadine HCl (Amantadine 100 Mg Cap) 100 mg PO BID [facility] Last Admin: 11/16/16 16:56 Dose: 100 mg Benzocaine/Menthol (Cepacol Sore Throat) 1 morro PO Q3 PRN PRN Reason: Sore Throat Last Admin: 11/12/16 20:31 Dose: 1 morro Bethanechol Chloride (Urecholine) 50 mg PO TID [facility] Last Admin: 11/16/16 16:55 Dose: 50 mg Carbidopa/Levodopa (Rytary Er 48.75 Mg-195 Mg Cap) 1 cap PO TID@0500,1300,2100 [facility] Last Admin: 11/16/16 13:09 Dose: 1 cap Fluocinonide (Lidex 0.05% Oint) 1 applic TOP BID PRN PRN Reason: Rash Last Admin: 11/10/16 08:35 Dose: 1 applic Magnesium Hydroxide (Milk Of Magnesia) 30 ml PO DAILY PRN PRN Reason: Constipation Last Admin: 10/29/16 05:03 Dose: 30 ml Metronidazole (Flagyl) 500 mg PO Q8 [facility] Last Admin: 11/16/16 16:55 Dose: 500 mg Midodrine (Proamatine) 10 mg PO TID [facility] Last Admin: 11/16/16 16:57 Dose: 10 mg Mupirocin (Bactroban Ointment) 1 applic TOP BID [facility] Last Admin: 11/16/16 16:58 Dose: 1 applic Pantoprazole Sodium (Protonix Ec Tab) 40 mg PO DAILY [facility] Last Admin: 11/16/16 08:28 Dose: 40 mg Vancomycin HCl (Vancocin (Oral/Rectal Use)) 250 mg PO Q8 [facility] Last Admin: 11/16/16 17:08 Dose: 250 mg - Labs Labs: 11/08/16 07:45 11/08/16 07:45 - Respiratory Exam Respiratory Exam: NORMAL BREATHING PATTERN - Cardiovascular Exam Cardiovascular Exam: REGULAR RHYTHM - GI/Abdominal Exam GI & Abdominal Exam: Normal Bowel Sounds Assessment and Plan - Assessment and Plan (Free Text) Assessment: Diarrhea ?? c-diff presently on Vanco Flagyl Urine CS psuedomonas ? UA wnl Low ext weakness?? Dx progression MSA Parkinsons DX Shry Drager PT Rytary as per Neuro MRSA Nares Bactroban S/P Bradycardia Hypotenson chronic A-fib Sepsis ? Autonomic dysfunction? IVF Midodrine ID Cardiology Disposition?? awaiting transfer to [place] Pt has medical decision making capacity but is financially vulnerable and would benefit from legal guardianship Court and Social service involved Pt is WWII Lethargy?? improved Baclofen d/c Infection resolved Reconsult Neuro R shoulder pain Dec ROM xrays subluxation Ultram PRN PT Gastroentritis? 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
[2016-11-17] MEDS: Vancomycin 500 mg (Oral/Rectal USE) PO SCH ×3 (00:28→17:26)
[2016-11-17] MEDS: LEVODOPA PO SCH ×3 (04:40→20:45)
[2016-11-17] MEDS: CARBIDOPA PO SCH ×3 (04:40→20:45)
[2016-11-17] MEDS: Bethanechol 50 MG TAB PO SCH ×3 (08:28→17:34)
[2016-11-17] MEDS: Pantoprazole 40 mg EC Tab PO SCH (08:28)
--- NOTE | 2016-11-17 21:30 | CP.PCM.PN ---
Subjective - Date & Time of Evaluation Date of Evaluation: 11/17/16 Time of Evaluation: 22:22 - Subjective Subjective: Above noted Objective - Vital Signs/Intake and Output Vital Signs (last 24 hours): Temp Pulse Resp BP Pulse Ox 97.6 F 65 20 153/74 H 98 11/17/16 21:10 11/17/16 21:10 11/17/16 21:10 11/17/16 21:10 11/17/16 21:10 - Medications Medications: Current Medications Acetaminophen (Tylenol 325mg Tab) 650 mg PO Q6 PRN PRN Reason: Pain, Mild (1-3) Last Admin: 11/08/16 12:10 Dose: 650 mg Amantadine HCl (Amantadine 100 Mg Cap) 100 mg PO BID [facility] Last Admin: 11/17/16 17:24 Dose: 100 mg Benzocaine/Menthol (Cepacol Sore Throat) 1 morro PO Q3 PRN PRN Reason: Sore Throat Last Admin: 11/12/16 20:31 Dose: 1 morro Bethanechol Chloride (Urecholine) 50 mg PO TID [facility] Last Admin: 11/17/16 17:34 Dose: 50 mg Carbidopa/Levodopa (Rytary Er 48.75 Mg-195 Mg Cap) 1 cap PO TID@0500,1300,2100 [facility] Last Admin: 11/17/16 20:45 Dose: 1 cap Fluocinonide (Lidex 0.05% Oint) 1 applic TOP BID PRN PRN Reason: Rash Last Admin: 11/10/16 08:35 Dose: 1 applic Magnesium Hydroxide (Milk Of Magnesia) 30 ml PO DAILY PRN PRN Reason: Constipation Last Admin: 10/29/16 05:03 Dose: 30 ml Metronidazole (Flagyl) 500 mg PO Q8 [facility] Last Admin: 11/17/16 17:25 Dose: 500 mg Midodrine (Proamatine) 10 mg PO TID [facility] Last Admin: 11/17/16 17:25 Dose: 10 mg Mupirocin (Bactroban Ointment) 1 applic TOP BID [facility] Last Admin: 11/17/16 17:24 Dose: 1 applic Pantoprazole Sodium (Protonix Ec Tab) 40 mg PO DAILY [facility] Last Admin: 11/17/16 08:28 Dose: 40 mg Vancomycin HCl (Vancocin (Oral/Rectal Use)) 250 mg PO Q8 [facility] Last Admin: 11/17/16 17:26 Dose: 250 mg - Labs Labs: 11/08/16 07:45 11/08/16 07:45 - Respiratory Exam Respiratory Exam: NORMAL BREATHING PATTERN - Cardiovascular Exam Cardiovascular Exam: REGULAR RHYTHM - GI/Abdominal Exam GI & Abdominal Exam: Normal Bowel Sounds Assessment and Plan - Assessment and Plan (Free Text) Assessment: Diarrhea ?? c-diff presently on Vanco Flagyl Urine CS psuedomonas ? UA wnl Low ext weakness?? Dx progression MSA Parkinsons DX Shry Drager PT Rytary as per Neuro MRSA Nares Bactroban S/P Bradycardia Hypotenson chronic A-fib Sepsis ? Autonomic dysfunction? IVF Midodrine ID Cardiology Disposition?? awaiting transfer to [place] Pt has medical decision making capacity but is financially vulnerable and would benefit from legal guardianship Court and Social service involved Pt is WWII Lethargy?? improved Baclofen d/c Infection resolved Reconsult Neuro R shoulder pain Dec ROM xrays subluxation Ultram PRN PT Gastroentritis? 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
[2016-11-18] MEDS: Vancomycin 500 mg (Oral/Rectal USE) PO SCH ×3 (00:50→16:10)
[2016-11-18] MEDS: CARBIDOPA PO SCH ×3 (05:58→20:24)
[2016-11-18] MEDS: LEVODOPA PO SCH ×3 (05:58→20:24)
[2016-11-18] MEDS: Pantoprazole 40 mg EC Tab PO SCH (08:05)
[2016-11-18] MEDS: Bethanechol 50 MG TAB PO SCH ×3 (08:05→16:11)
--- NOTE | 2016-11-18 20:36 | CP.PCM.PN ---
Subjective - Date & Time of Evaluation Date of Evaluation: 11/18/16 Time of Evaluation: 22:22 - Subjective Subjective: Above noted Objective - Vital Signs/Intake and Output Vital Signs (last 24 hours): Temp Pulse Resp BP Pulse Ox 97.8 F 62 20 159/79 H 98 11/18/16 19:59 11/18/16 19:59 11/18/16 19:59 11/18/16 19:59 11/18/16 19:59 - Medications Medications: Current Medications Acetaminophen (Tylenol 325mg Tab) 650 mg PO Q6 PRN PRN Reason: Pain, Mild (1-3) Last Admin: 11/08/16 12:10 Dose: 650 mg Amantadine HCl (Amantadine 100 Mg Cap) 100 mg PO BID [facility] Last Admin: 11/18/16 16:11 Dose: 100 mg Benzocaine/Menthol (Cepacol Sore Throat) 1 morro PO Q3 PRN PRN Reason: Sore Throat Last Admin: 11/12/16 20:31 Dose: 1 morro Bethanechol Chloride (Urecholine) 50 mg PO TID [facility] Last Admin: 11/18/16 16:11 Dose: 50 mg Carbidopa/Levodopa (Rytary Er 48.75 Mg-195 Mg Cap) 1 cap PO TID@0500,1300,2100 [facility] Last Admin: 11/18/16 20:24 Dose: 1 cap Fluocinonide (Lidex 0.05% Oint) 1 applic TOP BID PRN PRN Reason: Rash Last Admin: 11/10/16 08:35 Dose: 1 applic Magnesium Hydroxide (Milk Of Magnesia) 30 ml PO DAILY PRN PRN Reason: Constipation Last Admin: 10/29/16 05:03 Dose: 30 ml Metronidazole (Flagyl) 500 mg PO Q8 [facility] Last Admin: 11/18/16 16:11 Dose: 500 mg Midodrine (Proamatine) 10 mg PO TID [facility] Last Admin: 11/18/16 16:10 Dose: 10 mg Mupirocin (Bactroban Ointment) 1 applic TOP BID [facility] Last Admin: 11/18/16 16:11 Dose: 1 applic Pantoprazole Sodium (Protonix Ec Tab) 40 mg PO DAILY [facility] Last Admin: 11/18/16 08:05 Dose: 40 mg Vancomycin HCl (Vancocin (Oral/Rectal Use)) 250 mg PO Q8 [facility] Last Admin: 11/18/16 16:10 Dose: 250 mg - Labs Labs: 11/08/16 07:45 11/08/16 07:45 - Respiratory Exam Respiratory Exam: NORMAL BREATHING PATTERN - Cardiovascular Exam Cardiovascular Exam: REGULAR RHYTHM - GI/Abdominal Exam GI & Abdominal Exam: Normal Bowel Sounds Assessment and Plan - Assessment and Plan (Free Text) Assessment: Diarrhea ?? c-diff presently on Vanco Flagyl Urine CS psuedomonas ? UA wnl Low ext weakness?? Dx progression MSA Parkinsons DX Shry Drager PT Rytary as per Neuro MRSA Nares Bactroban S/P Bradycardia Hypotenson chronic A-fib Sepsis ? Autonomic dysfunction? IVF Midodrine ID Cardiology Disposition?? awaiting transfer to [place] Pt has medical decision making capacity but is financially vulnerable and would benefit from legal guardianship Court and Social service involved Pt is WWII Lethargy?? improved Baclofen d/c Infection resolved Reconsult Neuro R shoulder pain Dec ROM xrays subluxation Ultram PRN PT Gastroentritis? 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
[2016-11-19] MEDS: Vancomycin 500 mg (Oral/Rectal USE) PO SCH ×3 (00:53→17:32)
[2016-11-19] MEDS: LEVODOPA PO SCH ×3 (05:31→21:55)
[2016-11-19] MEDS: CARBIDOPA PO SCH ×3 (05:31→21:55)
[2016-11-19] MEDS: Pantoprazole 40 mg EC Tab PO SCH (09:39)
[2016-11-19] MEDS: Bethanechol 50 MG TAB PO SCH ×3 (09:39→17:28)
--- NOTE | 2016-11-19 20:37 | CP.PCM.PN ---
Subjective - Date & Time of Evaluation Date of Evaluation: 11/19/16 Time of Evaluation: 22:22 - Subjective Subjective: Soft stool Objective - Vital Signs/Intake and Output Vital Signs (last 24 hours): Temp Pulse Resp BP Pulse Ox 97.7 F 80 20 124/64 96 11/19/16 17:07 11/19/16 17:07 11/19/16 17:07 11/19/16 17:07 11/19/16 17:07 - Medications Medications: Current Medications Acetaminophen (Tylenol 325mg Tab) 650 mg PO Q6 PRN PRN Reason: Pain, Mild (1-3) Last Admin: 11/08/16 12:10 Dose: 650 mg Amantadine HCl (Amantadine 100 Mg Cap) 100 mg PO BID [facility] Last Admin: 11/19/16 17:29 Dose: 100 mg Benzocaine/Menthol (Cepacol Sore Throat) 1 morro PO Q3 PRN PRN Reason: Sore Throat Last Admin: 11/12/16 20:31 Dose: 1 morro Bethanechol Chloride (Urecholine) 50 mg PO TID [facility] Last Admin: 11/19/16 17:28 Dose: 50 mg Carbidopa/Levodopa (Rytary Er 48.75 Mg-195 Mg Cap) 1 cap PO TID@0500,1300,2100 [facility] Last Admin: 11/19/16 14:18 Dose: 1 cap Fluocinonide (Lidex 0.05% Oint) 1 applic TOP BID PRN PRN Reason: Rash Last Admin: 11/10/16 08:35 Dose: 1 applic Magnesium Hydroxide (Milk Of Magnesia) 30 ml PO DAILY PRN PRN Reason: Constipation Last Admin: 10/29/16 05:03 Dose: 30 ml Metronidazole (Flagyl) 500 mg PO Q8 [facility] Last Admin: 11/19/16 17:29 Dose: 500 mg Midodrine (Proamatine) 10 mg PO TID [facility] Last Admin: 11/19/16 17:29 Dose: 10 mg Mupirocin (Bactroban Ointment) 1 applic TOP BID [facility] Last Admin: 11/19/16 17:29 Dose: 1 applic Pantoprazole Sodium (Protonix Ec Tab) 40 mg PO DAILY [facility] Last Admin: 11/19/16 09:39 Dose: 40 mg Vancomycin HCl (Vancocin (Oral/Rectal Use)) 250 mg PO Q8 [facility] Last Admin: 11/19/16 17:32 Dose: 250 mg - Labs Labs: 11/08/16 07:45 11/08/16 07:45 - Respiratory Exam Respiratory Exam: NORMAL BREATHING PATTERN - Cardiovascular Exam Cardiovascular Exam: REGULAR RHYTHM - GI/Abdominal Exam GI & Abdominal Exam: Normal Bowel Sounds Assessment and Plan - Assessment and Plan (Free Text) Assessment: Soft stool ?? c-diff Cont Vanco / Flagyl ?? Urine CS psuedomonas ? UA wnl Low ext weakness?? Dx progression MSA Parkinsons DX Shry Drager PT Rytary as per Neuro MRSA Nares Bactroban S/P Bradycardia Hypotenson chronic A-fib Sepsis ? Autonomic dysfunction? IVF Midodrine ID Cardiology Disposition?? awaiting transfer to [place] Pt has medical decision making capacity but is financially vulnerable and would benefit from legal guardianship Court and Social service involved Pt is WWII Lethargy?? improved Baclofen d/c Infection resolved Reconsult Neuro R shoulder pain Dec ROM xrays subluxation Ultram PRN PT Gastroentritis? 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
[2016-11-20] MEDS: Vancomycin 500 mg (Oral/Rectal USE) PO SCH ×3 (00:43→17:18)
[2016-11-20] MEDS: LEVODOPA PO SCH ×3 (04:08→21:11)
[2016-11-20] MEDS: CARBIDOPA PO SCH ×3 (04:08→21:11)
[2016-11-20] MEDS: Bethanechol 50 MG TAB PO SCH ×3 (09:45→17:18)
[2016-11-20] MEDS: Pantoprazole 40 mg EC Tab PO SCH (09:46)
--- NOTE | 2016-11-20 18:24 | CP.PCM.PN ---
Subjective - Date & Time of Evaluation Date of Evaluation: 11/20/16 Time of Evaluation: 22:22 - Subjective Subjective: Above noted Objective - Vital Signs/Intake and Output Vital Signs (last 24 hours): Temp Pulse Resp BP Pulse Ox 97.8 F 68 20 165/78 H 99 11/20/16 16:25 11/20/16 16:25 11/20/16 16:25 11/20/16 16:25 11/20/16 16:25 - Medications Medications: Current Medications Acetaminophen (Tylenol 325mg Tab) 650 mg PO Q6 PRN PRN Reason: Pain, Mild (1-3) Last Admin: 11/08/16 12:10 Dose: 650 mg Amantadine HCl (Amantadine 100 Mg Cap) 100 mg PO BID [facility] Last Admin: 11/20/16 17:18 Dose: 100 mg Benzocaine/Menthol (Cepacol Sore Throat) 1 morro PO Q3 PRN PRN Reason: Sore Throat Last Admin: 11/12/16 20:31 Dose: 1 morro Bethanechol Chloride (Urecholine) 50 mg PO TID [facility] Last Admin: 11/20/16 17:18 Dose: 50 mg Carbidopa/Levodopa (Rytary Er 48.75 Mg-195 Mg Cap) 1 cap PO TID@0500,1300,2100 [facility] Last Admin: 11/20/16 12:45 Dose: 1 cap Fluocinonide (Lidex 0.05% Oint) 1 applic TOP BID PRN PRN Reason: Rash Last Admin: 11/10/16 08:35 Dose: 1 applic Magnesium Hydroxide (Milk Of Magnesia) 30 ml PO DAILY PRN PRN Reason: Constipation Last Admin: 10/29/16 05:03 Dose: 30 ml Metronidazole (Flagyl) 500 mg PO Q8 [facility] Last Admin: 11/20/16 17:18 Dose: 500 mg Midodrine (Proamatine) 10 mg PO TID [facility] Last Admin: 11/20/16 17:18 Dose: 10 mg Mupirocin (Bactroban Ointment) 1 applic TOP BID [facility] Last Admin: 11/20/16 17:19 Dose: 1 applic Pantoprazole Sodium (Protonix Ec Tab) 40 mg PO DAILY [facility] Last Admin: 11/20/16 09:46 Dose: 40 mg Vancomycin HCl (Vancocin (Oral/Rectal Use)) 250 mg PO Q8 [facility] Last Admin: 11/20/16 17:18 Dose: 250 mg - Labs Labs: 11/08/16 07:45 11/08/16 07:45 - Respiratory Exam Respiratory Exam: NORMAL BREATHING PATTERN - Cardiovascular Exam Cardiovascular Exam: REGULAR RHYTHM - GI/Abdominal Exam GI & Abdominal Exam: Normal Bowel Sounds Assessment and Plan - Assessment and Plan (Free Text) Assessment: Soft stool ?? c-diff Cont Vanco / Flagyl ?? Urine CS psuedomonas ? UA wnl Low ext weakness?? Dx progression MSA Parkinsons DX Shry Drager PT Rytary as per Neuro MRSA Nares Bactroban S/P Bradycardia Hypotenson chronic A-fib Sepsis ? Autonomic dysfunction? IVF Midodrine ID Cardiology Disposition?? awaiting transfer to [place] Pt has medical decision making capacity but is financially vulnerable and would benefit from legal guardianship Court and Social service involved Pt is WWII Lethargy?? improved Baclofen d/c Infection resolved Reconsult Neuro R shoulder pain Dec ROM xrays subluxation Ultram PRN PT Gastroentritis? 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
[2016-11-21] MEDS: Vancomycin 500 mg (Oral/Rectal USE) PO SCH ×3 (00:57→17:15)
[2016-11-21] MEDS: CARBIDOPA PO SCH ×3 (04:40→21:00)
[2016-11-21] MEDS: LEVODOPA PO SCH ×3 (04:40→21:00)
[2016-11-21] MEDS: Bethanechol 50 MG TAB PO SCH ×2 (10:08→17:16)
[2016-11-21] MEDS: Pantoprazole 40 mg EC Tab PO SCH (10:08)
--- NOTE | 2016-11-21 20:43 | CP.PCM.PN ---
Subjective - Date & Time of Evaluation Date of Evaluation: 11/21/16 Time of Evaluation: 22:22 - Subjective Subjective: No change Objective - Vital Signs/Intake and Output Vital Signs (last 24 hours): Temp Pulse Resp BP Pulse Ox 98 F 75 20 132/77 98 11/21/16 16:19 11/21/16 16:19 11/21/16 16:19 11/21/16 16:19 11/21/16 16:19 - Medications Medications: Current Medications Acetaminophen (Tylenol 325mg Tab) 650 mg PO Q6 PRN PRN Reason: Pain, Mild (1-3) Last Admin: 11/08/16 12:10 Dose: 650 mg Amantadine HCl (Amantadine 100 Mg Cap) 100 mg PO BID [facility] Last Admin: 11/21/16 17:17 Dose: 100 mg Benzocaine/Menthol (Cepacol Sore Throat) 1 morro PO Q3 PRN PRN Reason: Sore Throat Last Admin: 11/12/16 20:31 Dose: 1 morro Bethanechol Chloride (Urecholine) 50 mg PO TID [facility] Last Admin: 11/21/16 17:16 Dose: 50 mg Carbidopa/Levodopa (Rytary Er 48.75 Mg-195 Mg Cap) 1 cap PO TID@0500,1300,2100 [facility] Last Admin: 11/21/16 12:01 Dose: 1 cap Fluocinonide (Lidex 0.05% Oint) 1 applic TOP BID PRN PRN Reason: Rash Last Admin: 11/10/16 08:35 Dose: 1 applic Magnesium Hydroxide (Milk Of Magnesia) 30 ml PO DAILY PRN PRN Reason: Constipation Last Admin: 10/29/16 05:03 Dose: 30 ml Metronidazole (Flagyl) 500 mg PO Q8 [facility] Last Admin: 11/21/16 17:16 Dose: 500 mg Midodrine (Proamatine) 10 mg PO TID [facility] Last Admin: 11/21/16 17:17 Dose: 10 mg Mupirocin (Bactroban Ointment) 1 applic TOP BID [facility] Last Admin: 11/21/16 17:16 Dose: 1 applic Pantoprazole Sodium (Protonix Ec Tab) 40 mg PO DAILY [facility] Vancomycin HCl (Vancocin (Oral/Rectal Use)) 250 mg PO Q8 [facility] Last Admin: 11/21/16 17:15 Dose: 250 mg - Labs Labs: 11/08/16 07:45 11/08/16 07:45 - Respiratory Exam Respiratory Exam: NORMAL BREATHING PATTERN - Cardiovascular Exam Cardiovascular Exam: REGULAR RHYTHM - GI/Abdominal Exam GI & Abdominal Exam: Normal Bowel Sounds Assessment and Plan - Assessment and Plan (Free Text) Assessment: Soft stool ?? c-diff Cont Vanco / Flagyl ?? Urine CS psuedomonas ? UA wnl Low ext weakness?? Dx progression MSA Parkinsons DX Shry Drager PT Rytary as per Neuro MRSA Nares Bactroban S/P Bradycardia Hypotenson chronic A-fib Sepsis ? Autonomic dysfunction? IVF Midodrine ID Cardiology Disposition?? awaiting transfer to [place] Pt has medical decision making capacity but is financially vulnerable and would benefit from legal guardianship Court and Social service involved Pt is [place] WW[place] Lethargy?? improved Baclofen d/c Infection resolved Reconsult Neuro R shoulder pain Dec ROM xrays subluxation Ultram PRN PT Gastroentritis? 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
[2016-11-22] MEDS: Vancomycin 500 mg (Oral/Rectal USE) PO SCH ×3 (01:00→16:14)
[2016-11-22] MEDS: CARBIDOPA PO SCH ×3 (05:02→21:05)
[2016-11-22] MEDS: LEVODOPA PO SCH ×3 (05:02→21:05)
[2016-11-22] MEDS: Bethanechol 50 MG TAB PO SCH ×3 (08:50→16:14)
[2016-11-22] MEDS: Pantoprazole 40 mg EC Tab PO SCH (08:50)
--- NOTE | 2016-11-22 19:06 | CP.PCM.PN ---
Subjective - Date & Time of Evaluation Date of Evaluation: 11/22/16 Time of Evaluation: 22:22 - Subjective Subjective: Above noted Objective - Vital Signs/Intake and Output Vital Signs (last 24 hours): Temp Pulse Resp BP Pulse Ox 97.5 F L 68 20 165/88 H 100 11/22/16 07:51 11/22/16 07:51 11/22/16 07:51 11/22/16 07:51 11/22/16 07:51 - Medications Medications: Current Medications Acetaminophen (Tylenol 325mg Tab) 650 mg PO Q6 PRN PRN Reason: Pain, Mild (1-3) Last Admin: 11/08/16 12:10 Dose: 650 mg Amantadine HCl (Amantadine 100 Mg Cap) 100 mg PO BID [facility] Last Admin: 11/22/16 16:13 Dose: 100 mg Benzocaine/Menthol (Cepacol Sore Throat) 1 morro PO Q3 PRN PRN Reason: Sore Throat Last Admin: 11/12/16 20:31 Dose: 1 morro Bethanechol Chloride (Urecholine) 50 mg PO TID [facility] Last Admin: 11/22/16 16:14 Dose: 50 mg Carbidopa/Levodopa (Rytary Er 48.75 Mg-195 Mg Cap) 1 cap PO TID@0500,1300,2100 [facility] Last Admin: 11/22/16 12:23 Dose: 1 cap Fluocinonide (Lidex 0.05% Oint) 1 applic TOP BID PRN PRN Reason: Rash Last Admin: 11/22/16 08:51 Dose: 1 applic Magnesium Hydroxide (Milk Of Magnesia) 30 ml PO DAILY PRN PRN Reason: Constipation Last Admin: 10/29/16 05:03 Dose: 30 ml Metronidazole (Flagyl) 500 mg PO Q8 [facility] Last Admin: 11/22/16 16:14 Dose: 500 mg Midodrine (Proamatine) 10 mg PO TID [facility] Last Admin: 11/22/16 16:14 Dose: 10 mg Mupirocin (Bactroban Ointment) 1 applic TOP BID [facility] Last Admin: 11/22/16 16:13 Dose: 1 applic Pantoprazole Sodium (Protonix Ec Tab) 40 mg PO DAILY [facility] Last Admin: 11/22/16 08:50 Dose: 40 mg Vancomycin HCl (Vancocin (Oral/Rectal Use)) 250 mg PO Q8 [facility] Last Admin: 11/22/16 16:14 Dose: 250 mg - Labs Labs: 11/08/16 07:45 11/08/16 07:45 - Respiratory Exam Respiratory Exam: NORMAL BREATHING PATTERN - Cardiovascular Exam Cardiovascular Exam: REGULAR RHYTHM - GI/Abdominal Exam GI & Abdominal Exam: Normal Bowel Sounds Assessment and Plan - Assessment and Plan (Free Text) Assessment: Soft stool ?? c-diff Cont Vanco / Flagyl ?? Urine CS psuedomonas ? UA wnl Low ext weakness?? Dx progression MSA Parkinsons DX Shry Drager PT Rytary as per Neuro MRSA Nares Bactroban S/P Bradycardia Hypotenson chronic A-fib Sepsis ? Autonomic dysfunction? IVF Midodrine ID Cardiology Disposition?? awaiting transfer to [place] Pt has medical decision making capacity but is financially vulnerable and would benefit from legal guardianship Court and Social service involved Pt is [place] WW[place] Lethargy?? improved Baclofen d/c Infection resolved Reconsult Neuro R shoulder pain Dec ROM xrays subluxation Ultram PRN PT Gastroentritis? 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
[2016-11-23] MEDS: Vancomycin 500 mg (Oral/Rectal USE) PO SCH ×3 (00:24→17:27)
[2016-11-23] MEDS: CARBIDOPA PO SCH ×3 (05:47→20:19)
[2016-11-23] MEDS: LEVODOPA PO SCH ×3 (05:47→20:19)
[2016-11-23] MEDS: Pantoprazole 40 mg EC Tab PO SCH (09:41)
[2016-11-23] MEDS: Bethanechol 50 MG TAB PO SCH ×3 (09:41→17:27)
[2016-11-23] MEDS: Benzocaine/Menthol (Cepacol) Lozenge PO PRN (10:01)
[2016-11-24] MEDS: Vancomycin 500 mg (Oral/Rectal USE) PO SCH ×3 (00:23→16:24)
[2016-11-24] MEDS: CARBIDOPA PO SCH ×3 (04:45→20:40)
[2016-11-24] MEDS: LEVODOPA PO SCH ×3 (04:45→20:40)
[2016-11-24] MEDS: Pantoprazole 40 mg EC Tab PO SCH (09:06)
[2016-11-24] MEDS: Bethanechol 50 MG TAB PO SCH ×3 (09:07→16:24)
--- NOTE | 2016-11-24 13:03 | CP.PCM.PN ---
Subjective - Date & Time of Evaluation Date of Evaluation: 11/24/16 Time of Evaluation: 22:22 - Subjective Subjective: Doing well Objective - Vital Signs/Intake and Output Vital Signs (last 24 hours): Temp Pulse Resp BP Pulse Ox 97.5 F L 75 18 149/90 98 11/24/16 07:36 11/24/16 07:36 11/24/16 07:36 11/24/16 07:36 11/24/16 07:36 - Medications Medications: Current Medications Acetaminophen (Tylenol 325mg Tab) 650 mg PO Q6 PRN PRN Reason: Pain, Mild (1-3) Last Admin: 11/08/16 12:10 Dose: 650 mg Amantadine HCl (Amantadine 100 Mg Cap) 100 mg PO BID [facility] Last Admin: 11/24/16 09:06 Dose: 100 mg Benzocaine/Menthol (Cepacol Sore Throat) 1 morro PO Q3 PRN PRN Reason: Sore Throat Last Admin: 11/23/16 10:01 Dose: 1 morro Bethanechol Chloride (Urecholine) 50 mg PO TID [facility] Last Admin: 11/24/16 12:47 Dose: 50 mg Carbidopa/Levodopa (Rytary Er 48.75 Mg-195 Mg Cap) 1 cap PO TID@0500,1300,2100 [facility] Last Admin: 11/24/16 12:47 Dose: 1 cap Fluocinonide (Lidex 0.05% Oint) 1 applic TOP BID PRN PRN Reason: Rash Last Admin: 11/23/16 09:42 Dose: 1 applic Magnesium Hydroxide (Milk Of Magnesia) 30 ml PO DAILY PRN PRN Reason: Constipation Last Admin: 10/29/16 05:03 Dose: 30 ml Metronidazole (Flagyl) 500 mg PO Q8 [facility] Last Admin: 11/24/16 09:06 Dose: 500 mg Midodrine (Proamatine) 10 mg PO TID [facility] Last Admin: 11/24/16 12:47 Dose: 10 mg Mupirocin (Bactroban Ointment) 1 applic TOP BID [facility] Last Admin: 11/24/16 09:06 Dose: 1 applic Pantoprazole Sodium (Protonix Ec Tab) 40 mg PO DAILY [facility] Last Admin: 11/24/16 09:06 Dose: 40 mg Vancomycin HCl (Vancocin (Oral/Rectal Use)) 250 mg PO Q8 [facility] Last Admin: 11/24/16 09:07 Dose: 250 mg - Labs Labs: 11/08/16 07:45 11/08/16 07:45 - Respiratory Exam Respiratory Exam: NORMAL BREATHING PATTERN - Cardiovascular Exam Cardiovascular Exam: Tachycardia - GI/Abdominal Exam GI & Abdominal Exam: Normal Bowel Sounds Assessment and Plan - Assessment and Plan (Free Text) Assessment: Soft stool ?? c-diff Cont Vanco / Flagyl ?? Urine CS psuedomonas ? UA wnl Low ext weakness?? Dx progression MSA Parkinsons DX Shry Drager PT Rytary as per Neuro MRSA Nares Bactroban S/P Bradycardia Hypotenson chronic A-fib Sepsis ? Autonomic dysfunction? IVF Midodrine ID Cardiology Disposition?? awaiting transfer to [place] Pt has medical decision making capacity but is financially vulnerable and would benefit from legal guardianship Court and Social service involved Pt is [place] WW[place] Lethargy?? improved Baclofen d/c Infection resolved Reconsult Neuro R shoulder pain Dec ROM xrays subluxation Ultram PRN PT Gastroentritis? 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
[2016-11-24] MEDS: Benzocaine/Menthol (Cepacol) Lozenge PO PRN (20:45)
[2016-11-25] MEDS: Vancomycin 500 mg (Oral/Rectal USE) PO SCH ×3 (00:01→17:46)
[2016-11-25] MEDS: LEVODOPA PO SCH ×3 (05:28→20:54)
[2016-11-25] MEDS: CARBIDOPA PO SCH ×3 (05:28→20:54)
[2016-11-25] MEDS: Pantoprazole 40 mg EC Tab PO SCH (08:51)
[2016-11-25] MEDS: Benzocaine/Menthol (Cepacol) Lozenge PO PRN (08:51)
[2016-11-25] MEDS: Bethanechol 50 MG TAB PO SCH ×3 (08:52→17:45)
--- NOTE | 2016-11-25 20:17 | CP.PCM.PN ---
Subjective - Date & Time of Evaluation Date of Evaluation: 11/25/16 Time of Evaluation: 22:22 - Subjective Subjective: Doing well Cough?? Objective - Vital Signs/Intake and Output Vital Signs (last 24 hours): Temp Pulse Resp BP Pulse Ox 98.6 F 79 18 148/75 99 11/25/16 16:38 11/25/16 16:38 11/25/16 16:38 11/25/16 16:38 11/25/16 16:38 - Medications Medications: Current Medications Acetaminophen (Tylenol 325mg Tab) 650 mg PO Q6 PRN PRN Reason: Pain, Mild (1-3) Last Admin: 11/08/16 12:10 Dose: 650 mg Amantadine HCl (Amantadine 100 Mg Cap) 100 mg PO BID [facility] Last Admin: 11/25/16 17:46 Dose: 100 mg Benzocaine/Menthol (Cepacol Sore Throat) 1 morro PO Q3 PRN PRN Reason: Sore Throat Last Admin: 11/25/16 08:51 Dose: 1 morro Bethanechol Chloride (Urecholine) 50 mg PO TID [facility] Last Admin: 11/25/16 17:45 Dose: 50 mg Carbidopa/Levodopa (Rytary Er 48.75 Mg-195 Mg Cap) 1 cap PO TID@0500,1300,2100 [facility] Last Admin: 11/25/16 12:23 Dose: 1 cap Fluocinonide (Lidex 0.05% Oint) 1 applic TOP BID PRN PRN Reason: Rash Last Admin: 11/25/16 17:44 Dose: 1 applic Magnesium Hydroxide (Milk Of Magnesia) 30 ml PO DAILY PRN PRN Reason: Constipation Last Admin: 10/29/16 05:03 Dose: 30 ml Metronidazole (Flagyl) 500 mg PO Q8 [facility] Last Admin: 11/25/16 17:45 Dose: 500 mg Midodrine (Proamatine) 10 mg PO TID [facility] Last Admin: 11/25/16 17:45 Dose: 10 mg Mupirocin (Bactroban Ointment) 1 applic TOP BID [facility] Last Admin: 11/25/16 17:44 Dose: 1 applic Pantoprazole Sodium (Protonix Ec Tab) 40 mg PO DAILY [facility] Last Admin: 11/25/16 08:51 Dose: 40 mg Vancomycin HCl (Vancocin (Oral/Rectal Use)) 250 mg PO Q8 [facility] Last Admin: 11/25/16 17:46 Dose: 250 mg - Labs Labs: 11/08/16 07:45 11/08/16 07:45 - Respiratory Exam Respiratory Exam: NORMAL BREATHING PATTERN - Cardiovascular Exam Cardiovascular Exam: REGULAR RHYTHM - GI/Abdominal Exam GI & Abdominal Exam: Normal Bowel Sounds Assessment and Plan - Assessment and Plan (Free Text) Assessment: Cough CXR LAbs Soft stool ?? c-diff Cont Vanco / Flagyl ?? Urine CS psuedomonas ? UA wnl Low ext weakness?? Dx progression MSA Parkinsons DX Shry Drager PT Rytary as per Neuro MRSA Nares Bactroban S/P Bradycardia Hypotenson chronic A-fib Sepsis ? Autonomic dysfunction? IVF Midodrine ID Cardiology Disposition?? awaiting transfer to [place] Pt has medical decision making capacity but is financially vulnerable and would benefit from legal guardianship Court and Social service involved Pt is [place] Lethargy?? improved Baclofen d/c Infection resolved Reconsult Neuro R shoulder pain Dec ROM xrays subluxation Ultram PRN PT Gastroentritis? 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
[2016-11-26] MEDS: Vancomycin 500 mg (Oral/Rectal USE) PO SCH ×2 (01:17→10:35)
[2016-11-26] MEDS: LEVODOPA PO SCH ×3 (05:13→21:07)
[2016-11-26] MEDS: CARBIDOPA PO SCH ×3 (05:13→21:07)
[2016-11-26 07:05] LABS: HEMOGLOBIN 13.4 g/dL (12.0-18.0); MEAN CORPUSCULAR HEMOGLOBIN 30.8 pg (27.0-31.0); MEAN CORPUSCULAR HGB CONC 32.8 g/dL (33.0-37.0); RBC 4.34 Mil/uL (4.40-5.90); RED CELL DISTRIBUTION WIDTH 15.3 % (11.5-14.5); WHITE BLOOD COUNT 5.8 K/uL (4.8-10.8)
[2016-11-26 07:16] LABS: BLOOD UREA NITROGEN 19 mg/dl (9-20); CALCIUM 9.4 mg/dL (8.4-10.2); GFR AFRICAN-AMERICAN > 60; GFR NON-AFRICAN AMERICAN > 60
[2016-11-26] MEDS: Pantoprazole 40 mg EC Tab PO SCH (10:06)
[2016-11-26] MEDS: Bethanechol 50 MG TAB PO SCH ×3 (10:06→18:56)
--- NOTE | 2016-11-26 12:47 | CP.PCM.PN ---
Subjective - Date & Time of Evaluation Date of Evaluation: 11/26/16 Time of Evaluation: 10:00 - Subjective Subjective: still on vanco / flagyl for recurrent c diff will d/c both no need to repeat c diff unless pt has symptoms Objective - Vital Signs/Intake and Output Vital Signs (last 24 hours): Temp Pulse Resp BP Pulse Ox 97.6 F 84 20 137/84 97 11/26/16 08:05 11/26/16 08:05 11/26/16 08:05 11/26/16 08:05 11/26/16 08:05 - Medications Medications: Current Medications Acetaminophen (Tylenol 325mg Tab) 650 mg PO Q6 PRN PRN Reason: Pain, Mild (1-3) Last Admin: 11/08/16 12:10 Dose: 650 mg Amantadine HCl (Amantadine 100 Mg Cap) 100 mg PO BID [facility] Last Admin: 11/26/16 10:08 Dose: 100 mg Benzocaine/Menthol (Cepacol Sore Throat) 1 morro PO Q3 PRN PRN Reason: Sore Throat Last Admin: 11/25/16 08:51 Dose: 1 morro Bethanechol Chloride (Urecholine) 50 mg PO TID [facility] Last Admin: 11/26/16 10:06 Dose: 50 mg Carbidopa/Levodopa (Rytary Er 48.75 Mg-195 Mg Cap) 1 cap PO TID@0500,1300,2100 [facility] Last Admin: 11/26/16 05:13 Dose: 1 cap Fluocinonide (Lidex 0.05% Oint) 1 applic TOP BID PRN PRN Reason: Rash Last Admin: 11/26/16 10:08 Dose: 1 applic Magnesium Hydroxide (Milk Of Magnesia) 30 ml PO DAILY PRN PRN Reason: Constipation Last Admin: 10/29/16 05:03 Dose: 30 ml Metronidazole (Flagyl) 500 mg PO Q8 [facility] Last Admin: 11/26/16 10:06 Dose: 500 mg Midodrine (Proamatine) 10 mg PO TID [facility] Last Admin: 11/26/16 10:06 Dose: 10 mg Mupirocin (Bactroban Ointment) 1 applic TOP BID [facility] Last Admin: 11/26/16 10:08 Dose: 1 applic Pantoprazole Sodium (Protonix Ec Tab) 40 mg PO DAILY [facility] Last Admin: 11/26/16 10:06 Dose: 40 mg Vancomycin HCl (Vancocin (Oral/Rectal Use)) 250 mg PO Q8 [facility] Last Admin: 11/26/16 10:35 Dose: 250 mg - Labs Labs: 11/26/16 05:55 11/26/16 05:55 - Constitutional Appears: Confused - Head Exam Head Exam: NORMOCEPHALIC - Eye Exam Eye Exam: absent: Scleral icterus - ENT Exam ENT Exam: Mucous Membranes Dry - Neck Exam Neck Exam: absent: Lymphadenopathy - Respiratory Exam Respiratory Exam: Decreased Breath Sounds - Cardiovascular Exam Cardiovascular Exam: REGULAR RHYTHM - GI/Abdominal Exam GI & Abdominal Exam: Distended, Soft Assessment and Plan (1) Parkinsonism Status: Acute (2) Bradyarrhythmia Status: Acute - Assessment and Plan (Free Text) Assessment: recurrent c diff stable
--- NOTE | 2016-11-26 13:29 | RAD ---
HISTORY: Cough. Portable upright study 09:00. COMPARISON: 11/01/2016. FINDINGS: LUNGS: No active pulmonary disease. PLEURA: No significant pleural effusion identified, no pneumothorax apparent. CARDIOVASCULAR: Cardiomegaly. No evidence of acute, significant cardiovascular disease. OSSEOUS STRUCTURES: No significant abnormalities. VISUALIZED UPPER ABDOMEN: Normal. OTHER FINDINGS: None. IMPRESSION: No active disease. No significant interval change compared to the prior examination(s).
--- NOTE | 2016-11-26 20:24 | CP.PCM.PN ---
Subjective - Date & Time of Evaluation Date of Evaluation: 11/26/16 Time of Evaluation: 22:22 - Subjective Subjective: ID note appreciated CXR and labs wnl Objective - Vital Signs/Intake and Output Vital Signs (last 24 hours): Temp Pulse Resp BP Pulse Ox 98.4 F 75 20 110/68 98 11/26/16 17:00 11/26/16 17:00 11/26/16 17:00 11/26/16 17:00 11/26/16 17:00 - Medications Medications: Current Medications Acetaminophen (Tylenol 325mg Tab) 650 mg PO Q6 PRN PRN Reason: Pain, Mild (1-3) Last Admin: 11/08/16 12:10 Dose: 650 mg Amantadine HCl (Amantadine 100 Mg Cap) 100 mg PO BID [facility] Last Admin: 11/26/16 19:02 Dose: 100 mg Benzocaine/Menthol (Cepacol Sore Throat) 1 morro PO Q3 PRN PRN Reason: Sore Throat Last Admin: 11/25/16 08:51 Dose: 1 morro Bethanechol Chloride (Urecholine) 50 mg PO TID [facility] Last Admin: 11/26/16 18:56 Dose: 50 mg Carbidopa/Levodopa (Rytary Er 48.75 Mg-195 Mg Cap) 1 cap PO TID@0500,1300,2100 [facility] Last Admin: 11/26/16 13:51 Dose: 1 cap Fluocinonide (Lidex 0.05% Oint) 1 applic TOP BID PRN PRN Reason: Rash Last Admin: 11/26/16 10:08 Dose: 1 applic Magnesium Hydroxide (Milk Of Magnesia) 30 ml PO DAILY PRN PRN Reason: Constipation Last Admin: 10/29/16 05:03 Dose: 30 ml Midodrine (Proamatine) 10 mg PO TID [facility] Last Admin: 11/26/16 18:58 Dose: 10 mg Mupirocin (Bactroban Ointment) 1 applic TOP BID [facility] Last Admin: 11/26/16 18:57 Dose: 1 applic Pantoprazole Sodium (Protonix Ec Tab) 40 mg PO DAILY [facility] Last Admin: 11/26/16 10:06 Dose: 40 mg - Labs Labs: 11/26/16 05:55 11/26/16 05:55 - Respiratory Exam Respiratory Exam: NORMAL BREATHING PATTERN - Cardiovascular Exam Cardiovascular Exam: REGULAR RHYTHM - GI/Abdominal Exam GI & Abdominal Exam: Normal Bowel Sounds Assessment and Plan - Assessment and Plan (Free Text) Assessment: Recuurent c-diff d/c Vanco / Flagyl ?? Urine CS psuedomonas ? UA wnl Low ext weakness?? Dx progression MSA Parkinsons DX Shry Drager PT Rytary as per Neuro MRSA Nares Bactroban S/P Bradycardia Hypotenson chronic A-fib Sepsis ? Autonomic dysfunction? IVF Midodrine ID Cardiology Disposition?? awaiting transfer to [place] Pt has medical decision making capacity but is financially vulnerable and would benefit from legal guardianship Court and Social service involved Pt is [place] WW[place] Lethargy?? improved Baclofen d/c Infection resolved Reconsult Neuro R shoulder pain Dec ROM xrays subluxation Ultram PRN PT Gastroentritis? 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
[2016-11-27] MEDS: LEVODOPA PO SCH ×3 (04:38→21:26)
[2016-11-27] MEDS: CARBIDOPA PO SCH ×3 (04:38→21:26)
[2016-11-27] MEDS: Bethanechol 50 MG TAB PO SCH ×3 (08:28→16:07)
[2016-11-27] MEDS: Pantoprazole 40 mg EC Tab PO SCH (08:28)
--- NOTE | 2016-11-27 18:55 | CP.PCM.PN ---
Subjective - Date & Time of Evaluation Date of Evaluation: 11/27/16 Time of Evaluation: 22:22 - Subjective Subjective: Doing well Objective - Vital Signs/Intake and Output Vital Signs (last 24 hours): Temp Pulse Resp BP Pulse Ox 97.5 F L 56 L 20 114/73 95 11/27/16 16:49 11/27/16 16:49 11/27/16 16:49 11/27/16 16:49 11/27/16 16:49 - Medications Medications: Current Medications Acetaminophen (Tylenol 325mg Tab) 650 mg PO Q6 PRN PRN Reason: Pain, Mild (1-3) Last Admin: 11/08/16 12:10 Dose: 650 mg Amantadine HCl (Amantadine 100 Mg Cap) 100 mg PO BID [facility] Last Admin: 11/27/16 16:07 Dose: 100 mg Benzocaine/Menthol (Cepacol Sore Throat) 1 morro PO Q3 PRN PRN Reason: Sore Throat Last Admin: 11/25/16 08:51 Dose: 1 morro Bethanechol Chloride (Urecholine) 50 mg PO TID [facility] Last Admin: 11/27/16 16:07 Dose: 50 mg Carbidopa/Levodopa (Rytary Er 48.75 Mg-195 Mg Cap) 1 cap PO TID@0500,1300,2100 [facility] Last Admin: 11/27/16 12:32 Dose: 1 cap Fluocinonide (Lidex 0.05% Oint) 1 applic TOP BID PRN PRN Reason: Rash Last Admin: 11/26/16 10:08 Dose: 1 applic Magnesium Hydroxide (Milk Of Magnesia) 30 ml PO DAILY PRN PRN Reason: Constipation Last Admin: 10/29/16 05:03 Dose: 30 ml Mupirocin (Bactroban Ointment) 1 applic TOP BID [facility] Last Admin: 11/27/16 16:07 Dose: 1 applic Pantoprazole Sodium (Protonix Ec Tab) 40 mg PO DAILY [facility] Last Admin: 11/27/16 08:28 Dose: 40 mg - Labs Labs: 11/26/16 05:55 11/26/16 05:55 - Respiratory Exam Respiratory Exam: NORMAL BREATHING PATTERN - Cardiovascular Exam Cardiovascular Exam: REGULAR RHYTHM - GI/Abdominal Exam GI & Abdominal Exam: Normal Bowel Sounds Assessment and Plan - Assessment and Plan (Free Text) Assessment: Recuurent c-diff d/c Vanco / Flagyl ?? Urine CS psuedomonas ? UA wnl Low ext weakness?? Dx progression MSA Parkinsons DX Shry Drager PT Rytary as per Neuro MRSA Nares Bactroban S/P Bradycardia Hypotenson chronic A-fib Sepsis ? Autonomic dysfunction? IVF Midodrine ID Cardiology Disposition?? awaiting transfer to [place] Pt has medical decision making capacity but is financially vulnerable and would benefit from legal guardianship Court and Social service involved Pt is WW[place] Lethargy?? improved Baclofen d/c Infection resolved Reconsult Neuro R shoulder pain Dec ROM xrays subluxation Ultram PRN PT Gastroentritis? 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
--- NOTE | 2016-11-28 20:47 | CP.PCM.PN ---
Subjective - Date & Time of Evaluation Date of Evaluation: 11/28/16 Time of Evaluation: 22:22 - Subjective Subjective: Above noted Objective - Vital Signs/Intake and Output Vital Signs (last 24 hours): Temp Pulse Resp BP Pulse Ox 97.5 F L 56 L 20 114/73 95 11/27/16 17:00 11/27/16 16:49 11/27/16 16:49 11/27/16 16:49 11/27/16 16:49 - Medications Medications: Current Medications Acetaminophen (Tylenol 325mg Tab) 650 mg PO Q6 PRN PRN Reason: Pain, Mild (1-3) Last Admin: 11/08/16 12:10 Dose: 650 mg Amantadine HCl (Amantadine 100 Mg Cap) 100 mg PO BID [facility] Last Admin: 11/27/16 16:07 Dose: 100 mg Benzocaine/Menthol (Cepacol Sore Throat) 1 morro PO Q3 PRN PRN Reason: Sore Throat Last Admin: 11/25/16 08:51 Dose: 1 morro Bethanechol Chloride (Urecholine) 50 mg PO TID [facility] Last Admin: 11/27/16 16:07 Dose: 50 mg Carbidopa/Levodopa (Rytary Er 48.75 Mg-195 Mg Cap) 1 cap PO TID@0500,1300,2100 [facility] Last Admin: 11/27/16 21:26 Dose: 1 cap Fluocinonide (Lidex 0.05% Oint) 1 applic TOP BID PRN PRN Reason: Rash Last Admin: 11/26/16 10:08 Dose: 1 applic Magnesium Hydroxide (Milk Of Magnesia) 30 ml PO DAILY PRN PRN Reason: Constipation Last Admin: 10/29/16 05:03 Dose: 30 ml Mupirocin (Bactroban Ointment) 1 applic TOP BID [facility] Last Admin: 11/27/16 16:07 Dose: 1 applic Pantoprazole Sodium (Protonix Ec Tab) 40 mg PO DAILY [facility] Last Admin: 11/27/16 08:28 Dose: 40 mg - Labs Labs: 11/26/16 05:55 11/26/16 05:55 - Respiratory Exam Respiratory Exam: Wheezes - Cardiovascular Exam Cardiovascular Exam: REGULAR RHYTHM - GI/Abdominal Exam GI & Abdominal Exam: Normal Bowel Sounds Assessment and Plan - Assessment and Plan (Free Text) Assessment: MSA Parkinsons DX Lilia Vieira Low ext weakness?? Dx progression PT Rytary as per Neuro Disposition?? awaiting transfer to [place] Pt has medical decision making capacity but is financially vulnerable and would benefit from legal guardianship Court and Social service involved Pt is [place] WW[place] MRSA Nares Bactroban Recuurent c-diff d/c Vanco / Flagyl ?? Urine CS psuedomonas ? UA wnl S/P Bradycardia Hypotenson chronic A-fib Sepsis ? Autonomic dysfunction? IVF Midodrine ID Cardiology Lethargy?? improved Baclofen d/c Infection resolved Reconsult Neuro R shoulder pain Dec ROM xrays subluxation Ultram PRN PT Gastroentritis? 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
[2016-11-28] MEDS: CARBIDOPA PO SCH (21:56)
[2016-11-28] MEDS: LEVODOPA PO SCH (21:56)
[2016-11-29] MEDS: CARBIDOPA PO SCH ×4 (05:42→21:30)
[2016-11-29] MEDS: LEVODOPA PO SCH ×4 (05:42→21:30)
[2016-11-29] MEDS: Pantoprazole 40 mg EC Tab PO SCH ×2 (09:22→09:23)
[2016-11-29] MEDS: Bethanechol 50 MG TAB PO SCH ×5 (09:22→17:18)
--- NOTE | 2016-11-29 18:15 | CP.PCM.PN ---
Subjective - Date & Time of Evaluation Date of Evaluation: 11/29/16 Time of Evaluation: 22:22 - Subjective Subjective: Above noted Objective - Vital Signs/Intake and Output Vital Signs (last 24 hours): Temp Pulse Resp BP Pulse Ox 97.7 F 68 20 120/70 98 11/29/16 17:13 11/29/16 17:13 11/29/16 17:13 11/29/16 17:13 11/29/16 17:13 - Medications Medications: Current Medications Acetaminophen (Tylenol 325mg Tab) 650 mg PO Q6 PRN PRN Reason: Pain, Mild (1-3) Last Admin: 11/08/16 12:10 Dose: 650 mg Amantadine HCl (Amantadine 100 Mg Cap) 100 mg PO BID [facility] Last Admin: 11/29/16 17:18 Dose: Not Given Benzocaine/Menthol (Cepacol Sore Throat) 1 morro PO Q3 PRN PRN Reason: Sore Throat Last Admin: 11/25/16 08:51 Dose: 1 morro Bethanechol Chloride (Urecholine) 50 mg PO TID [facility] Last Admin: 11/29/16 17:18 Dose: 50 mg Carbidopa/Levodopa (Rytary Er 48.75 Mg-195 Mg Cap) 1 cap PO TID@0500,1300,2100 [facility] Last Admin: 11/29/16 13:41 Dose: Not Given Fluocinonide (Lidex 0.05% Oint) 1 applic TOP BID PRN PRN Reason: Rash Last Admin: 11/26/16 10:08 Dose: 1 applic Magnesium Hydroxide (Milk Of Magnesia) 30 ml PO DAILY PRN PRN Reason: Constipation Last Admin: 10/29/16 05:03 Dose: 30 ml Mupirocin (Bactroban Ointment) 1 applic TOP BID [facility] Last Admin: 11/29/16 17:18 Dose: Not Given Pantoprazole Sodium (Protonix Ec Tab) 40 mg PO DAILY [facility] Last Admin: 11/29/16 09:23 Dose: Not Given - Labs Labs: 11/26/16 05:55 11/26/16 05:55 - Respiratory Exam Respiratory Exam: NORMAL BREATHING PATTERN - Cardiovascular Exam Cardiovascular Exam: REGULAR RHYTHM - GI/Abdominal Exam GI & Abdominal Exam: Normal Bowel Sounds Assessment and Plan - Assessment and Plan (Free Text) Assessment: MSA Parkinsons DX Lilia Bo ext weakness?? Dx progression PT Rytary as per Neuro Disposition?? [place] Pt has medical decision making capacity but is financially vulnerable and would benefit from legal guardianship Court and Social service involved Pt is WW[place] MRSA Nares Bactroban Recuurent c-diff d/c Vanco / Flagyl ?? Urine CS psuedomonas ? UA wnl S/P Bradycardia Hypotenson chronic A-fib Sepsis ? Autonomic dysfunction? IVF Midodrine ID Cardiology Lethargy?? improved Baclofen d/c Infection resolved Reconsult Neuro R shoulder pain Dec ROM xrays subluxation Ultram PRN PT Gastroentritis? 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
[2016-11-30] MEDS: LEVODOPA PO SCH ×3 (05:00→21:03)
[2016-11-30] MEDS: CARBIDOPA PO SCH ×3 (05:00→21:03)
[2016-11-30] MEDS: Pantoprazole 40 mg EC Tab PO SCH (08:55)
[2016-11-30] MEDS: Bethanechol 50 MG TAB PO SCH ×3 (08:56→16:58)
--- NOTE | 2016-11-30 20:52 | CP.PCM.PN ---
Subjective - Date & Time of Evaluation Date of Evaluation: 11/30/16 Time of Evaluation: 22:22 - Subjective Subjective: Doing well Objective - Vital Signs/Intake and Output Vital Signs (last 24 hours): Temp Pulse Resp BP Pulse Ox 97.5 F L 82 20 110/68 96 11/30/16 16:27 11/30/16 16:27 11/30/16 16:27 11/30/16 16:27 11/30/16 16:27 - Medications Medications: Current Medications Acetaminophen (Tylenol 325mg Tab) 650 mg PO Q6 PRN PRN Reason: Pain, Mild (1-3) Last Admin: 11/08/16 12:10 Dose: 650 mg Amantadine HCl (Amantadine 100 Mg Cap) 100 mg PO BID [facility] Last Admin: 11/30/16 16:55 Dose: 100 mg Benzocaine/Menthol (Cepacol Sore Throat) 1 morro PO Q3 PRN PRN Reason: Sore Throat Last Admin: 11/25/16 08:51 Dose: 1 morro Bethanechol Chloride (Urecholine) 50 mg PO TID [facility] Last Admin: 11/30/16 16:58 Dose: 50 mg Carbidopa/Levodopa (Rytary Er 48.75 Mg-195 Mg Cap) 1 cap PO TID@0500,1300,2100 [facility] Last Admin: 11/30/16 13:00 Dose: 1 cap Fluocinonide (Lidex 0.05% Oint) 1 applic TOP BID PRN PRN Reason: Rash Last Admin: 11/26/16 10:08 Dose: 1 applic Magnesium Hydroxide (Milk Of Magnesia) 30 ml PO DAILY PRN PRN Reason: Constipation Last Admin: 10/29/16 05:03 Dose: 30 ml Mupirocin (Bactroban Ointment) 1 applic TOP BID [facility] Last Admin: 11/30/16 16:56 Dose: 1 applic Pantoprazole Sodium (Protonix Ec Tab) 40 mg PO DAILY [facility] Last Admin: 11/30/16 08:55 Dose: 40 mg - Labs Labs: 11/26/16 05:55 11/26/16 05:55 - Respiratory Exam Respiratory Exam: NORMAL BREATHING PATTERN - Cardiovascular Exam Cardiovascular Exam: REGULAR RHYTHM - GI/Abdominal Exam GI & Abdominal Exam: Normal Bowel Sounds Assessment and Plan - Assessment and Plan (Free Text) Assessment: MSA Parkinsons DX Lilia Vieira Low ext weakness?? Dx progression PT Rytary as per Neuro Disposition?? awaiting transfer to [place] Pt has medical decision making capacity but is financially vulnerable and would benefit from legal guardianship Court and Social service involved Pt is WWII MRSA Nares Bactroban Recuurent c-diff d/c Vanco / Flagyl ?? Urine CS psuedomonas ? UA wnl S/P Bradycardia Hypotenson chronic A-fib Sepsis ? Autonomic dysfunction? IVF Midodrine ID Cardiology Lethargy?? improved Baclofen d/c Infection resolved Reconsult Neuro R shoulder pain Dec ROM xrays subluxation Ultram PRN PT Gastroentritis? 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
[2016-12-01] MEDS: CARBIDOPA PO SCH ×3 (05:20→21:32)
[2016-12-01] MEDS: LEVODOPA PO SCH ×3 (05:20→21:32)
[2016-12-01] MEDS: Pantoprazole 40 mg EC Tab PO SCH (09:01)
[2016-12-01] MEDS: Bethanechol 50 MG TAB PO SCH ×3 (09:01→16:25)
--- NOTE | 2016-12-01 14:31 | CP.PCM.PN ---
Subjective - Date & Time of Evaluation Date of Evaluation: 12/01/16 Time of Evaluation: 22:22 - Subjective Subjective: Above noted Objective - Vital Signs/Intake and Output Vital Signs (last 24 hours): Temp Pulse Resp BP Pulse Ox 97.2 F L 75 20 130/76 99 12/01/16 09:00 12/01/16 09:00 12/01/16 09:00 12/01/16 09:00 12/01/16 09:00 - Medications Medications: Current Medications Acetaminophen (Tylenol 325mg Tab) 650 mg PO Q6 PRN PRN Reason: Pain, Mild (1-3) Last Admin: 11/08/16 12:10 Dose: 650 mg Amantadine HCl (Amantadine 100 Mg Cap) 100 mg PO BID [facility] Last Admin: 12/01/16 09:01 Dose: 100 mg Benzocaine/Menthol (Cepacol Sore Throat) 1 morro PO Q3 PRN PRN Reason: Sore Throat Last Admin: 11/25/16 08:51 Dose: 1 morro Bethanechol Chloride (Urecholine) 50 mg PO TID [facility] Last Admin: 12/01/16 12:20 Dose: 50 mg Carbidopa/Levodopa (Rytary Er 48.75 Mg-195 Mg Cap) 1 cap PO TID@0500,1300,2100 [facility] Last Admin: 12/01/16 12:19 Dose: 1 cap Fluocinonide (Lidex 0.05% Oint) 1 applic TOP BID PRN PRN Reason: Rash Last Admin: 11/26/16 10:08 Dose: 1 applic Magnesium Hydroxide (Milk Of Magnesia) 30 ml PO DAILY PRN PRN Reason: Constipation Last Admin: 10/29/16 05:03 Dose: 30 ml Mupirocin (Bactroban Ointment) 1 applic TOP BID [facility] Last Admin: 12/01/16 09:00 Dose: 1 applic Pantoprazole Sodium (Protonix Ec Tab) 40 mg PO DAILY [facility] Last Admin: 12/01/16 09:01 Dose: 40 mg - Labs Labs: 11/26/16 05:55 11/26/16 05:55 - Respiratory Exam Respiratory Exam: NORMAL BREATHING PATTERN - Cardiovascular Exam Cardiovascular Exam: REGULAR RHYTHM - GI/Abdominal Exam GI & Abdominal Exam: Normal Bowel Sounds Assessment and Plan - Assessment and Plan (Free Text) Assessment: MSA Parkinsons DX Lilia Vieira Low ext weakness?? Dx progression PT Rytary as per Neuro Disposition?? awaiting transfer to [place] Pt has medical decision making capacity but is financially vulnerable and would benefit from legal guardianship Court and Social service involved Pt is WWII MRSA Nares Bactroban Recuurent c-diff d/c Vanco / Flagyl ?? Urine CS psuedomonas ? UA wnl S/P Bradycardia Hypotenson chronic A-fib Sepsis ? Autonomic dysfunction? IVF Midodrine ID Cardiology Lethargy?? improved Baclofen d/c Infection resolved Reconsult Neuro R shoulder pain Dec ROM xrays subluxation Ultram PRN PT Gastroentritis? 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
[2016-12-02] MEDS: LEVODOPA PO SCH ×4 (04:32→21:59)
[2016-12-02] MEDS: CARBIDOPA PO SCH ×4 (04:32→21:59)
[2016-12-02] MEDS: Pantoprazole 40 mg EC Tab PO SCH (09:12)
[2016-12-02] MEDS: Bethanechol 50 MG TAB PO SCH ×3 (09:12→16:49)
--- NOTE | 2016-12-02 20:41 | CP.PCM.PN ---
Subjective - Date & Time of Evaluation Date of Evaluation: 12/02/16 Time of Evaluation: 22:22 - Subjective Subjective: Sleeping Objective - Vital Signs/Intake and Output Vital Signs (last 24 hours): Temp Pulse Resp BP Pulse Ox 97.5 F L 97 H 20 150/64 100 12/02/16 15:55 12/02/16 15:55 12/02/16 15:55 12/02/16 07:57 12/02/16 15:55 - Medications Medications: Current Medications Acetaminophen (Tylenol 325mg Tab) 650 mg PO Q6 PRN PRN Reason: Pain, Mild (1-3) Last Admin: 11/08/16 12:10 Dose: 650 mg Amantadine HCl (Amantadine 100 Mg Cap) 100 mg PO BID [facility] Last Admin: 12/02/16 16:49 Dose: 100 mg Benzocaine/Menthol (Cepacol Sore Throat) 1 morro PO Q3 PRN PRN Reason: Sore Throat Last Admin: 11/25/16 08:51 Dose: 1 morro Bethanechol Chloride (Urecholine) 50 mg PO TID [facility] Last Admin: 12/02/16 16:49 Dose: 50 mg Carbidopa/Levodopa (Rytary Er 48.75 Mg-195 Mg Cap) 1 cap PO TID@0500,1300,2100 [facility] Last Admin: 12/02/16 12:17 Dose: 1 cap Fluocinonide (Lidex 0.05% Oint) 1 applic TOP BID PRN PRN Reason: Rash Last Admin: 12/02/16 09:12 Dose: 1 applic Magnesium Hydroxide (Milk Of Magnesia) 30 ml PO DAILY PRN PRN Reason: Constipation Last Admin: 10/29/16 05:03 Dose: 30 ml Mupirocin (Bactroban Ointment) 1 applic TOP BID [facility] Last Admin: 12/02/16 20:08 Dose: 1 applic Pantoprazole Sodium (Protonix Ec Tab) 40 mg PO DAILY [facility] Last Admin: 12/02/16 09:12 Dose: 40 mg - Labs Labs: 11/26/16 05:55 11/26/16 05:55 - Respiratory Exam Respiratory Exam: NORMAL BREATHING PATTERN - Cardiovascular Exam Cardiovascular Exam: REGULAR RHYTHM - GI/Abdominal Exam GI & Abdominal Exam: Normal Bowel Sounds Assessment and Plan - Assessment and Plan (Free Text) Assessment: MSA Parkinsons DX Lilia Vieira Low ext weakness?? Dx progression PT Rytary as per Neuro Disposition?? awaiting transfer to [place] Pt has medical decision making capacity but is financially vulnerable and would benefit from legal guardianship Court and Social service involved Pt is WWII MRSA Nares Bactroban Recuurent c-diff d/c Vanco / Flagyl ?? Urine CS psuedomonas ? UA wnl S/P Bradycardia Hypotenson chronic A-fib Sepsis ? Autonomic dysfunction? IVF Midodrine ID Cardiology Lethargy?? improved Baclofen d/c Infection resolved Reconsult Neuro R shoulder pain Dec ROM xrays subluxation Ultram PRN PT Gastroentritis? 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
[2016-12-03] MEDS: CARBIDOPA PO SCH ×3 (06:22→20:57)
[2016-12-03] MEDS: LEVODOPA PO SCH ×3 (06:22→20:57)
[2016-12-03] MEDS: Bethanechol 50 MG TAB PO SCH ×3 (08:59→16:05)
[2016-12-03] MEDS: Pantoprazole 40 mg EC Tab PO SCH (09:00)
--- NOTE | 2016-12-03 20:35 | CP.PCM.PN ---
Subjective - Date & Time of Evaluation Date of Evaluation: 12/03/16 Time of Evaluation: 22:22 - Subjective Subjective: Above noted Objective - Vital Signs/Intake and Output Vital Signs (last 24 hours): Temp Pulse Resp BP Pulse Ox 97.7 F 89 20 123/74 98 12/03/16 16:26 12/03/16 16:26 12/03/16 16:26 12/03/16 16:26 12/03/16 16:26 - Medications Medications: Current Medications Acetaminophen (Tylenol 325mg Tab) 650 mg PO Q6 PRN PRN Reason: Pain, Mild (1-3) Last Admin: 11/08/16 12:10 Dose: 650 mg Amantadine HCl (Amantadine 100 Mg Cap) 100 mg PO BID [facility] Last Admin: 12/03/16 16:18 Dose: 100 mg Benzocaine/Menthol (Cepacol Sore Throat) 1 morro PO Q3 PRN PRN Reason: Sore Throat Last Admin: 11/25/16 08:51 Dose: 1 morro Bethanechol Chloride (Urecholine) 50 mg PO TID [facility] Last Admin: 12/03/16 16:05 Dose: 50 mg Carbidopa/Levodopa (Rytary Er 48.75 Mg-195 Mg Cap) 1 cap PO TID@0500,1300,2100 [facility] Last Admin: 12/03/16 13:17 Dose: 1 cap Fluocinonide (Lidex 0.05% Oint) 1 applic TOP BID PRN PRN Reason: Rash Last Admin: 12/02/16 09:12 Dose: 1 applic Magnesium Hydroxide (Milk Of Magnesia) 30 ml PO DAILY PRN PRN Reason: Constipation Last Admin: 10/29/16 05:03 Dose: 30 ml Mupirocin (Bactroban Ointment) 1 applic TOP BID [facility] Last Admin: 12/03/16 16:05 Dose: 1 applic Pantoprazole Sodium (Protonix Ec Tab) 40 mg PO DAILY [facility] Last Admin: 12/03/16 09:00 Dose: 40 mg - Labs Labs: 11/26/16 05:55 11/26/16 05:55 - Respiratory Exam Respiratory Exam: NORMAL BREATHING PATTERN - Cardiovascular Exam Cardiovascular Exam: REGULAR RHYTHM - GI/Abdominal Exam GI & Abdominal Exam: Normal Bowel Sounds Assessment and Plan - Assessment and Plan (Free Text) Assessment: MSA Parkinsons DX Lilia Bo ext weakness?? Dx progression PT Rytary as per Neuro Disposition?? awaiting transfer to [place] Pt has medical decision making capacity but is financially vulnerable and would benefit from legal guardianship Court and Social service involved Pt is WWII MRSA Nares Bactroban Recuurent c-diff d/c Vanco / Flagyl ?? Urine CS psuedomonas ? UA wnl S/P Bradycardia Hypotenson chronic A-fib Sepsis ? Autonomic dysfunction? IVF Midodrine ID Cardiology Lethargy?? improved Baclofen d/c Infection resolved Reconsult Neuro R shoulder pain Dec ROM xrays subluxation Ultram PRN PT Gastroentritis? 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
[2016-12-04] MEDS: LEVODOPA PO SCH ×3 (05:19→21:18)
[2016-12-04] MEDS: CARBIDOPA PO SCH ×3 (05:19→21:18)
[2016-12-04] MEDS: Bethanechol 50 MG TAB PO SCH ×3 (09:07→16:07)
[2016-12-04] MEDS: Pantoprazole 40 mg EC Tab PO SCH (09:07)
--- NOTE | 2016-12-04 19:40 | CP.PCM.PN ---
Subjective - Date & Time of Evaluation Date of Evaluation: 12/04/16 Time of Evaluation: 22:22 - Subjective Subjective: Above noted Objective - Vital Signs/Intake and Output Vital Signs (last 24 hours): Temp Pulse Resp BP Pulse Ox 97.9 F 103 H 20 134/76 100 12/04/16 16:00 12/04/16 16:00 12/04/16 16:00 12/04/16 16:00 12/04/16 16:00 - Medications Medications: Current Medications Acetaminophen (Tylenol 325mg Tab) 650 mg PO Q6 PRN PRN Reason: Pain, Mild (1-3) Last Admin: 11/08/16 12:10 Dose: 650 mg Amantadine HCl (Amantadine 100 Mg Cap) 100 mg PO BID [facility] Last Admin: 12/04/16 16:08 Dose: 100 mg Benzocaine/Menthol (Cepacol Sore Throat) 1 morro PO Q3 PRN PRN Reason: Sore Throat Last Admin: 11/25/16 08:51 Dose: 1 morro Bethanechol Chloride (Urecholine) 50 mg PO TID [facility] Last Admin: 12/04/16 16:07 Dose: 50 mg Carbidopa/Levodopa (Rytary Er 48.75 Mg-195 Mg Cap) 1 cap PO TID@0500,1300,2100 [facility] Last Admin: 12/04/16 12:50 Dose: 1 cap Fluocinonide (Lidex 0.05% Oint) 1 applic TOP BID PRN PRN Reason: Rash Last Admin: 12/02/16 09:12 Dose: 1 applic Magnesium Hydroxide (Milk Of Magnesia) 30 ml PO DAILY PRN PRN Reason: Constipation Last Admin: 10/29/16 05:03 Dose: 30 ml Mupirocin (Bactroban Ointment) 1 applic TOP BID [facility] Last Admin: 12/04/16 16:08 Dose: 1 applic Pantoprazole Sodium (Protonix Ec Tab) 40 mg PO DAILY [facility] Last Admin: 12/04/16 09:07 Dose: 40 mg - Labs Labs: 11/26/16 05:55 11/26/16 05:55 - Respiratory Exam Respiratory Exam: NORMAL BREATHING PATTERN - Cardiovascular Exam Cardiovascular Exam: Tachycardia - GI/Abdominal Exam GI & Abdominal Exam: Normal Bowel Sounds Assessment and Plan - Assessment and Plan (Free Text) Assessment: MSA Parkinsons DX Lilia Bo ext weakness?? Dx progression PT Rytary as per Neuro Disposition?? awaiting transfer to [place] Pt has medical decision making capacity but is financially vulnerable and would benefit from legal guardianship Court and Social service involved Pt is WWII MRSA Nares Bactroban Recuurent c-diff d/c Vanco / Flagyl ?? Urine CS psuedomonas ? UA wnl S/P Bradycardia Hypotenson chronic A-fib Sepsis ? Autonomic dysfunction? IVF Midodrine ID Cardiology Lethargy?? improved Baclofen d/c Infection resolved Reconsult Neuro R shoulder pain Dec ROM xrays subluxation Ultram PRN PT Gastroentritis? 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
[2016-12-05] MEDS: LEVODOPA PO SCH ×3 (05:25→20:55)
[2016-12-05] MEDS: CARBIDOPA PO SCH ×3 (05:25→20:55)
[2016-12-05] MEDS: Bethanechol 50 MG TAB PO SCH ×3 (08:55→16:42)
[2016-12-05] MEDS: Pantoprazole 40 mg EC Tab PO SCH (08:56)
--- NOTE | 2016-12-05 21:12 | CP.PCM.PN ---
Subjective - Date & Time of Evaluation Date of Evaluation: 12/05/16 Time of Evaluation: 22:22 - Subjective Subjective: above noted Objective - Vital Signs/Intake and Output Vital Signs (last 24 hours): Temp Pulse Resp BP Pulse Ox 97.5 F L 78 20 145/71 96 12/05/16 16:20 12/05/16 16:20 12/05/16 16:20 12/05/16 16:20 12/05/16 16:20 - Medications Medications: Current Medications Acetaminophen (Tylenol 325mg Tab) 650 mg PO Q6 PRN PRN Reason: Pain, Mild (1-3) Last Admin: 11/08/16 12:10 Dose: 650 mg Amantadine HCl (Amantadine 100 Mg Cap) 100 mg PO BID [facility] Last Admin: 12/05/16 17:00 Dose: 100 mg Benzocaine/Menthol (Cepacol Sore Throat) 1 morro PO Q3 PRN PRN Reason: Sore Throat Last Admin: 11/25/16 08:51 Dose: 1 morro Bethanechol Chloride (Urecholine) 50 mg PO TID [facility] Last Admin: 12/05/16 16:42 Dose: 50 mg Carbidopa/Levodopa (Rytary Er 48.75 Mg-195 Mg Cap) 1 cap PO TID@0500,1300,2100 [facility] Last Admin: 12/05/16 20:55 Dose: 1 cap Fluocinonide (Lidex 0.05% Oint) 1 applic TOP BID PRN PRN Reason: Rash Last Admin: 12/05/16 08:57 Dose: 1 applic Magnesium Hydroxide (Milk Of Magnesia) 30 ml PO DAILY PRN PRN Reason: Constipation Last Admin: 10/29/16 05:03 Dose: 30 ml Mupirocin (Bactroban Ointment) 1 applic TOP BID [facility] Last Admin: 12/05/16 20:09 Dose: 1 applic Pantoprazole Sodium (Protonix Ec Tab) 40 mg PO DAILY [facility] Last Admin: 12/05/16 08:56 Dose: 40 mg - Labs Labs: 11/26/16 05:55 11/26/16 05:55 - Respiratory Exam Respiratory Exam: NORMAL BREATHING PATTERN - Cardiovascular Exam Cardiovascular Exam: REGULAR RHYTHM - GI/Abdominal Exam GI & Abdominal Exam: Normal Bowel Sounds Assessment and Plan - Assessment and Plan (Free Text) Assessment: MSA Parkinsons DX Lilia Vieira Low ext weakness?? Dx progression PT Rytary as per Neuro Disposition?? awaiting transfer to [place] Pt has medical decision making capacity but is financially vulnerable and would benefit from legal guardianship Court and Social service involved Pt is WWII MRSA Nares Bactroban Recuurent c-diff d/c Vanco / Flagyl ?? Urine CS psuedomonas ? UA wnl S/P Bradycardia Hypotenson chronic A-fib Sepsis ? Autonomic dysfunction? IVF Midodrine ID Cardiology Lethargy?? improved Baclofen d/c Infection resolved Reconsult Neuro R shoulder pain Dec ROM xrays subluxation Ultram PRN PT Gastroentritis? 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
[2016-12-06] MEDS: CARBIDOPA PO SCH ×3 (05:12→20:40)
[2016-12-06] MEDS: LEVODOPA PO SCH ×3 (05:12→20:40)
[2016-12-06] MEDS: Pantoprazole 40 mg EC Tab PO SCH (08:33)
[2016-12-06] MEDS: Bethanechol 50 MG TAB PO SCH ×3 (08:33→16:56)
--- NOTE | 2016-12-06 19:05 | CP.PCM.PN ---
Subjective - Date & Time of Evaluation Date of Evaluation: 12/06/16 Time of Evaluation: 22:22 - Subjective Subjective: Above noted Objective - Vital Signs/Intake and Output Vital Signs (last 24 hours): Temp Pulse Resp BP Pulse Ox 97.6 F 64 20 96/60 L 98 12/06/16 17:00 12/06/16 17:00 12/06/16 17:00 12/06/16 17:00 12/06/16 17:00 - Medications Medications: Current Medications Acetaminophen (Tylenol 325mg Tab) 650 mg PO Q6 PRN PRN Reason: Pain, Mild (1-3) Last Admin: 11/08/16 12:10 Dose: 650 mg Amantadine HCl (Amantadine 100 Mg Cap) 100 mg PO BID [facility] Last Admin: 12/06/16 16:56 Dose: 100 mg Benzocaine/Menthol (Cepacol Sore Throat) 1 morro PO Q3 PRN PRN Reason: Sore Throat Last Admin: 11/25/16 08:51 Dose: 1 morro Bethanechol Chloride (Urecholine) 50 mg PO TID [facility] Last Admin: 12/06/16 16:56 Dose: 50 mg Carbidopa/Levodopa (Rytary Er 48.75 Mg-195 Mg Cap) 1 cap PO TID@0500,1300,2100 [facility] Last Admin: 12/06/16 13:08 Dose: 1 cap Fluocinonide (Lidex 0.05% Oint) 1 applic TOP BID PRN PRN Reason: Rash Last Admin: 12/05/16 08:57 Dose: 1 applic Magnesium Hydroxide (Milk Of Magnesia) 30 ml PO DAILY PRN PRN Reason: Constipation Last Admin: 10/29/16 05:03 Dose: 30 ml Mupirocin (Bactroban Ointment) 1 applic TOP BID [facility] Last Admin: 12/06/16 16:56 Dose: 1 applic Pantoprazole Sodium (Protonix Ec Tab) 40 mg PO DAILY [facility] Last Admin: 12/06/16 08:33 Dose: 40 mg - Labs Labs: 11/26/16 05:55 11/26/16 05:55 - Respiratory Exam Respiratory Exam: NORMAL BREATHING PATTERN - Cardiovascular Exam Cardiovascular Exam: REGULAR RHYTHM - GI/Abdominal Exam GI & Abdominal Exam: Normal Bowel Sounds Assessment and Plan - Assessment and Plan (Free Text) Assessment: MSA Parkinsons DX Lilia Vieira Low ext weakness?? Dx progression PT Rytary as per Neuro Disposition?? awaiting transfer to [place] Pt has medical decision making capacity but is financially vulnerable and would benefit from legal guardianship Court and Social service involved Pt is WWII MRSA Nares Bactroban Recuurent c-diff d/c Vanco / Flagyl ?? Urine CS psuedomonas ? UA wnl S/P Bradycardia Hypotenson chronic A-fib Sepsis ? Autonomic dysfunction? IVF Midodrine ID Cardiology Lethargy?? improved Baclofen d/c Infection resolved Reconsult Neuro R shoulder pain Dec ROM xrays subluxation Ultram PRN PT Gastroentritis? 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
[2016-12-07] MEDS: LEVODOPA PO SCH ×3 (05:36→20:10)
[2016-12-07] MEDS: CARBIDOPA PO SCH ×3 (05:36→20:10)
[2016-12-07] MEDS: Bethanechol 50 MG TAB PO SCH ×3 (10:31→17:31)
[2016-12-07] MEDS: Pantoprazole 40 mg EC Tab PO SCH (10:32)
[2016-12-08] MEDS: CARBIDOPA PO SCH ×3 (06:00→20:48)
[2016-12-08] MEDS: LEVODOPA PO SCH ×3 (06:00→20:48)
[2016-12-08] MEDS: Bethanechol 50 MG TAB PO SCH ×3 (08:47→16:56)
--- NOTE | 2016-12-08 21:33 | CP.PCM.PN ---
Subjective - Date & Time of Evaluation Date of Evaluation: 12/08/16 Time of Evaluation: 22:22 - Subjective Subjective: Sleeping Objective - Vital Signs/Intake and Output Vital Signs (last 24 hours): Temp Pulse Resp BP Pulse Ox 98.2 F 79 20 121/66 98 12/08/16 16:34 12/08/16 16:34 12/08/16 16:34 12/08/16 16:34 12/08/16 16:34 - Medications Medications: Current Medications Acetaminophen (Tylenol 325mg Tab) 650 mg PO Q6 PRN PRN Reason: Pain, Mild (1-3) Last Admin: 11/08/16 12:10 Dose: 650 mg Amantadine HCl (Amantadine 100 Mg Cap) 100 mg PO BID [facility] Last Admin: 12/08/16 16:55 Dose: 100 mg Benzocaine/Menthol (Cepacol Sore Throat) 1 morro PO Q3 PRN PRN Reason: Sore Throat Last Admin: 11/25/16 08:51 Dose: 1 morro Bethanechol Chloride (Urecholine) 50 mg PO TID [facility] Last Admin: 12/08/16 16:56 Dose: 50 mg Carbidopa/Levodopa (Rytary Er 48.75 Mg-195 Mg Cap) 1 cap PO TID@0500,1300,2100 [facility] Last Admin: 12/08/16 20:48 Dose: 1 cap Fluocinonide (Lidex 0.05% Oint) 1 applic TOP BID PRN PRN Reason: Rash Last Admin: 12/05/16 08:57 Dose: 1 applic Magnesium Hydroxide (Milk Of Magnesia) 30 ml PO DAILY PRN PRN Reason: Constipation Last Admin: 10/29/16 05:03 Dose: 30 ml Mupirocin (Bactroban Ointment) 1 applic TOP BID [facility] Last Admin: 12/08/16 16:56 Dose: 1 applic - Labs Labs: 11/26/16 05:55 11/26/16 05:55 - Respiratory Exam Respiratory Exam: NORMAL BREATHING PATTERN - Cardiovascular Exam Cardiovascular Exam: REGULAR RHYTHM - GI/Abdominal Exam GI & Abdominal Exam: Normal Bowel Sounds Assessment and Plan - Assessment and Plan (Free Text) Assessment: MSA Parkinsons DX Shry Drager Low ext weakness?? Dx progression PT Rytary as per Neuro Disposition?? awaiting transfer to [place] Pt has medical decision making capacity but is financially vulnerable and would benefit from legal guardianship Court and Social service involved Pt is [place] MRSA Nares Bactroban Recuurent c-diff d/c Vanco / Flagyl ?? Urine CS psuedomonas ? UA wnl S/P Bradycardia Hypotenson chronic A-fib Sepsis ? Autonomic dysfunction? IVF Midodrine ID Cardiology Lethargy?? improved Baclofen d/c Infection resolved Reconsult Neuro R shoulder pain Dec ROM xrays subluxation Ultram PRN PT Gastroentritis? 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
[2016-12-09] MEDS: LEVODOPA PO SCH ×3 (05:24→20:10)
[2016-12-09] MEDS: CARBIDOPA PO SCH ×3 (05:24→20:10)
[2016-12-09] MEDS: Bethanechol 50 MG TAB PO SCH ×3 (08:34→16:41)
--- NOTE | 2016-12-09 19:46 | CP.PCM.PN ---
Subjective - Date & Time of Evaluation Date of Evaluation: 12/09/16 Time of Evaluation: 22:22 - Subjective Subjective: above noted Objective - Vital Signs/Intake and Output Vital Signs (last 24 hours): Temp Pulse Resp BP Pulse Ox 97.3 F L 95 H 18 129/70 95 12/09/16 15:29 12/09/16 15:29 12/09/16 15:29 12/09/16 15:29 12/09/16 15:29 - Medications Medications: Current Medications Acetaminophen (Tylenol 325mg Tab) 650 mg PO Q6 PRN PRN Reason: Pain, Mild (1-3) Last Admin: 11/08/16 12:10 Dose: 650 mg Amantadine HCl (Amantadine 100 Mg Cap) 100 mg PO BID [facility] Last Admin: 12/09/16 16:40 Dose: 100 mg Benzocaine/Menthol (Cepacol Sore Throat) 1 morro PO Q3 PRN PRN Reason: Sore Throat Last Admin: 11/25/16 08:51 Dose: 1 morro Bethanechol Chloride (Urecholine) 50 mg PO TID [facility] Last Admin: 12/09/16 16:41 Dose: 50 mg Carbidopa/Levodopa (Rytary Er 48.75 Mg-195 Mg Cap) 1 cap PO TID@0500,1300,2100 [facility] Last Admin: 12/09/16 13:00 Dose: 1 cap Fluocinonide (Lidex 0.05% Oint) 1 applic TOP BID PRN PRN Reason: Rash Last Admin: 12/05/16 08:57 Dose: 1 applic Magnesium Hydroxide (Milk Of Magnesia) 30 ml PO DAILY PRN PRN Reason: Constipation Last Admin: 10/29/16 05:03 Dose: 30 ml Mupirocin (Bactroban Ointment) 1 applic TOP BID [facility] Last Admin: 12/09/16 16:40 Dose: 1 applic - Labs Labs: 11/26/16 05:55 11/26/16 05:55 - Respiratory Exam Respiratory Exam: NORMAL BREATHING PATTERN - Cardiovascular Exam Cardiovascular Exam: REGULAR RHYTHM - GI/Abdominal Exam GI & Abdominal Exam: Normal Bowel Sounds Assessment and Plan - Assessment and Plan (Free Text) Assessment: MSA Parkinsons DX Shry Drager Low ext weakness?? Dx progression PT Rytary as per Neuro Disposition?? awaiting transfer to [place] Pt has medical decision making capacity but is financially vulnerable and would benefit from legal guardianship Court and Social service involved Pt is [place] MRSA Nares Bactroban Recuurent c-diff d/c Vanco / Flagyl ?? Urine CS psuedomonas ? UA wnl S/P Bradycardia Hypotenson chronic A-fib Sepsis ? Autonomic dysfunction? IVF Midodrine ID Cardiology Lethargy?? improved Baclofen d/c Infection resolved Reconsult Neuro R shoulder pain Dec ROM xrays subluxation Ultram PRN PT Gastroentritis? 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
[2016-12-10] MEDS: CARBIDOPA PO SCH ×3 (04:16→21:17)
[2016-12-10] MEDS: LEVODOPA PO SCH ×3 (04:16→21:17)
[2016-12-10] MEDS: Bethanechol 50 MG TAB PO SCH ×3 (08:05→16:04)
--- NOTE | 2016-12-10 14:42 | CP.PCM.PN ---
Subjective - Date & Time of Evaluation Date of Evaluation: 12/10/16 Time of Evaluation: 22:22 - Subjective Subjective: above noted Objective - Vital Signs/Intake and Output Vital Signs (last 24 hours): Temp Pulse Resp BP Pulse Ox 97.6 F 62 20 165/83 H 98 12/10/16 08:12 12/10/16 08:12 12/10/16 08:12 12/10/16 08:12 12/10/16 08:12 - Medications Medications: Current Medications Acetaminophen (Tylenol 325mg Tab) 650 mg PO Q6 PRN PRN Reason: Pain, Mild (1-3) Last Admin: 11/08/16 12:10 Dose: 650 mg Amantadine HCl (Amantadine 100 Mg Cap) 100 mg PO BID [facility] Last Admin: 12/10/16 08:05 Dose: 100 mg Benzocaine/Menthol (Cepacol Sore Throat) 1 morro PO Q3 PRN PRN Reason: Sore Throat Last Admin: 11/25/16 08:51 Dose: 1 morro Bethanechol Chloride (Urecholine) 50 mg PO TID [facility] Last Admin: 12/10/16 12:05 Dose: 50 mg Carbidopa/Levodopa (Rytary Er 48.75 Mg-195 Mg Cap) 1 cap PO TID@0500,1300,2100 [facility] Last Admin: 12/10/16 12:05 Dose: 1 cap Fluocinonide (Lidex 0.05% Oint) 1 applic TOP BID PRN PRN Reason: Rash Last Admin: 12/05/16 08:57 Dose: 1 applic Magnesium Hydroxide (Milk Of Magnesia) 30 ml PO DAILY PRN PRN Reason: Constipation Last Admin: 10/29/16 05:03 Dose: 30 ml Midodrine (Proamatine) 10 mg PO TID [facility] Last Admin: 12/10/16 12:05 Dose: 10 mg Mupirocin (Bactroban Ointment) 1 applic TOP BID [facility] Last Admin: 12/10/16 08:05 Dose: 1 applic - Labs Labs: 11/26/16 05:55 11/26/16 05:55 - Respiratory Exam Respiratory Exam: NORMAL BREATHING PATTERN - Cardiovascular Exam Cardiovascular Exam: REGULAR RHYTHM - GI/Abdominal Exam GI & Abdominal Exam: Normal Bowel Sounds Assessment and Plan - Assessment and Plan (Free Text) Assessment: MSA Parkinsons DX Lilia Bo ext weakness?? Dx progression PT Rytary as per Neuro Disposition?? awaiting transfer to [place] Pt has medical decision making capacity but is financially vulnerable and would benefit from legal guardianship Court and Social service involved Pt is [place] WW[place] MRSA Nares Bactroban Recuurent c-diff d/c Vanco / Flagyl ?? Urine CS psuedomonas ? UA wnl S/P Bradycardia Hypotenson chronic A-fib Sepsis ? Autonomic dysfunction? IVF Midodrine ID Cardiology Lethargy?? improved Baclofen d/c Infection resolved Reconsult Neuro R shoulder pain Dec ROM xrays subluxation Ultram PRN PT Gastroentritis? 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
[2016-12-11] MEDS: CARBIDOPA PO SCH ×3 (04:36→20:40)
[2016-12-11] MEDS: LEVODOPA PO SCH ×3 (04:36→20:40)
[2016-12-11] MEDS: Bethanechol 50 MG TAB PO SCH ×3 (08:36→17:26)
[2016-12-11] MEDS: Benzocaine/Menthol (Cepacol) Lozenge PO PRN (20:42)
[2016-12-12] MEDS: CARBIDOPA PO SCH ×3 (05:35→21:51)
[2016-12-12] MEDS: LEVODOPA PO SCH ×3 (05:35→21:51)
[2016-12-12] MEDS: Bethanechol 50 MG TAB PO SCH ×3 (10:23→17:31)
--- NOTE | 2016-12-12 23:45 | CP.PCM.PN ---
Subjective - Date & Time of Evaluation Date of Evaluation: 12/12/16 Time of Evaluation: 22:22 - Subjective Subjective: Above noted Objective - Vital Signs/Intake and Output Vital Signs (last 24 hours): Temp Pulse Resp BP Pulse Ox 97.5 F L 82 17 165/71 H 100 12/12/16 16:08 12/12/16 16:08 12/12/16 16:08 12/12/16 16:08 12/12/16 16:08 - Medications Medications: Current Medications Acetaminophen (Tylenol 325mg Tab) 650 mg PO Q6 PRN PRN Reason: Pain, Mild (1-3) Last Admin: 11/08/16 12:10 Dose: 650 mg Amantadine HCl (Amantadine 100 Mg Cap) 100 mg PO BID [facility] Last Admin: 12/12/16 17:29 Dose: 100 mg Benzocaine/Menthol (Cepacol Sore Throat) 1 morro PO Q3 PRN PRN Reason: Sore Throat Last Admin: 12/11/16 20:42 Dose: 1 morro Bethanechol Chloride (Urecholine) 50 mg PO TID [facility] Last Admin: 12/12/16 17:31 Dose: 50 mg Carbidopa/Levodopa (Rytary Er 48.75 Mg-195 Mg Cap) 1 cap PO TID@0500,1300,2100 [facility] Last Admin: 12/12/16 21:51 Dose: 1 cap Fluocinonide (Lidex 0.05% Oint) 1 applic TOP BID PRN PRN Reason: Rash Last Admin: 12/05/16 08:57 Dose: 1 applic Magnesium Hydroxide (Milk Of Magnesia) 30 ml PO DAILY PRN PRN Reason: Constipation Last Admin: 10/29/16 05:03 Dose: 30 ml Midodrine (Proamatine) 10 mg PO TID [facility] Last Admin: 12/12/16 17:30 Dose: 10 mg Mupirocin (Bactroban Ointment) 1 applic TOP BID [facility] Last Admin: 12/12/16 17:30 Dose: 1 applic - Labs Labs: 11/26/16 05:55 11/26/16 05:55 - Respiratory Exam Respiratory Exam: NORMAL BREATHING PATTERN - Cardiovascular Exam Cardiovascular Exam: REGULAR RHYTHM - GI/Abdominal Exam GI & Abdominal Exam: Normal Bowel Sounds Assessment and Plan - Assessment and Plan (Free Text) Assessment: MSA Parkinsons DX Lilia Vieira Low ext weakness?? Dx progression PT Rytary as per Neuro Disposition?? awaiting transfer to [place] Pt has medical decision making capacity but is financially vulnerable and would benefit from legal guardianship Court and Social service involved Pt is [place] MRSA Nares Bactroban Recuurent c-diff d/c Vanco / Flagyl ?? Urine CS psuedomonas ? UA wnl S/P Bradycardia Hypotenson chronic A-fib Sepsis ? Autonomic dysfunction? IVF Midodrine ID Cardiology Lethargy?? improved Baclofen d/c Infection resolved Reconsult Neuro R shoulder pain Dec ROM xrays subluxation Ultram PRN PT Gastroentritis? 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
[2016-12-13] MEDS: LEVODOPA PO SCH ×3 (05:40→21:06)
[2016-12-13] MEDS: CARBIDOPA PO SCH ×3 (05:40→21:06)
[2016-12-13] MEDS: Bethanechol 50 MG TAB PO SCH ×3 (09:45→17:57)
--- NOTE | 2016-12-13 19:35 | CP.PCM.PN ---
Subjective - Date & Time of Evaluation Date of Evaluation: 12/13/16 Time of Evaluation: 22:22 - Subjective Subjective: DOing well Objective - Vital Signs/Intake and Output Vital Signs (last 24 hours): Temp Pulse Resp BP Pulse Ox 97.7 F 73 18 111/61 97 12/13/16 15:52 12/13/16 15:52 12/13/16 15:52 12/13/16 15:52 12/13/16 15:52 - Medications Medications: Current Medications Acetaminophen (Tylenol 325mg Tab) 650 mg PO Q6 PRN PRN Reason: Pain, Mild (1-3) Last Admin: 11/08/16 12:10 Dose: 650 mg Amantadine HCl (Amantadine 100 Mg Cap) 100 mg PO BID [facility] Last Admin: 12/13/16 17:58 Dose: 100 mg Benzocaine/Menthol (Cepacol Sore Throat) 1 morro PO Q3 PRN PRN Reason: Sore Throat Last Admin: 12/11/16 20:42 Dose: 1 morro Bethanechol Chloride (Urecholine) 50 mg PO TID [facility] Last Admin: 12/13/16 17:57 Dose: 50 mg Carbidopa/Levodopa (Rytary Er 48.75 Mg-195 Mg Cap) 1 cap PO TID@0500,1300,2100 [facility] Last Admin: 12/13/16 13:27 Dose: 1 cap Fluocinonide (Lidex 0.05% Oint) 1 applic TOP BID PRN PRN Reason: Rash Last Admin: 12/13/16 09:46 Dose: 1 applic Magnesium Hydroxide (Milk Of Magnesia) 30 ml PO DAILY PRN PRN Reason: Constipation Last Admin: 10/29/16 05:03 Dose: 30 ml Midodrine (Proamatine) 10 mg PO TID [facility] Last Admin: 12/13/16 17:58 Dose: 10 mg Mupirocin (Bactroban Ointment) 1 applic TOP BID [facility] Last Admin: 12/13/16 17:58 Dose: 1 applic - Labs Labs: 11/26/16 05:55 11/26/16 05:55 - Respiratory Exam Respiratory Exam: NORMAL BREATHING PATTERN - Cardiovascular Exam Cardiovascular Exam: REGULAR RHYTHM - GI/Abdominal Exam GI & Abdominal Exam: Normal Bowel Sounds Assessment and Plan - Assessment and Plan (Free Text) Assessment: MSA Parkinsons DX Shry Drager Low ext weakness?? Dx progression PT Rytary as per Neuro Disposition?? awaiting transfer to [place] Pt has medical decision making capacity but is financially vulnerable and would benefit from legal guardianship Court and Social service involved Pt is [place] MRSA Nares Bactroban Recuurent c-diff d/c Vanco / Flagyl ?? Urine CS psuedomonas ? UA wnl S/P Bradycardia Hypotenson chronic A-fib Sepsis ? Autonomic dysfunction? IVF Midodrine ID Cardiology Lethargy?? improved Baclofen d/c Infection resolved Reconsult Neuro R shoulder pain Dec ROM xrays subluxation Ultram PRN PT Gastroentritis? 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
[2016-12-14] MEDS: LEVODOPA PO SCH ×3 (05:09→21:52)
[2016-12-14] MEDS: CARBIDOPA PO SCH ×3 (05:09→21:52)
[2016-12-14] MEDS: Bethanechol 50 MG TAB PO SCH ×3 (08:29→17:24)
--- NOTE | 2016-12-14 20:09 | CP.PCM.PN ---
Subjective - Date & Time of Evaluation Date of Evaluation: 12/14/16 Time of Evaluation: 22:22 - Subjective Subjective: No change in status Objective - Vital Signs/Intake and Output Vital Signs (last 24 hours): Temp Pulse Resp BP Pulse Ox 97.6 F 76 18 144/81 97 12/14/16 16:40 12/14/16 16:40 12/14/16 16:40 12/14/16 16:40 12/14/16 16:40 - Medications Medications: Current Medications Acetaminophen (Tylenol 325mg Tab) 650 mg PO Q6 PRN PRN Reason: Pain, Mild (1-3) Last Admin: 11/08/16 12:10 Dose: 650 mg Amantadine HCl (Amantadine 100 Mg Cap) 100 mg PO BID [facility] Last Admin: 12/14/16 17:24 Dose: 100 mg Benzocaine/Menthol (Cepacol Sore Throat) 1 morro PO Q3 PRN PRN Reason: Sore Throat Last Admin: 12/11/16 20:42 Dose: 1 morro Bethanechol Chloride (Urecholine) 50 mg PO TID [facility] Last Admin: 12/14/16 17:24 Dose: 50 mg Carbidopa/Levodopa (Rytary Er 48.75 Mg-195 Mg Cap) 1 cap PO TID@0500,1300,2100 [facility] Last Admin: 12/14/16 12:41 Dose: 1 cap Magnesium Hydroxide (Milk Of Magnesia) 30 ml PO DAILY PRN PRN Reason: Constipation Last Admin: 10/29/16 05:03 Dose: 30 ml Midodrine (Proamatine) 10 mg PO TID [facility] Last Admin: 12/14/16 17:24 Dose: 10 mg Mupirocin (Bactroban Ointment) 1 applic TOP BID [facility] Last Admin: 12/14/16 17:24 Dose: 1 applic - Labs Labs: 11/26/16 05:55 11/26/16 05:55 - Respiratory Exam Respiratory Exam: NORMAL BREATHING PATTERN - Cardiovascular Exam Cardiovascular Exam: REGULAR RHYTHM - GI/Abdominal Exam GI & Abdominal Exam: Normal Bowel Sounds Assessment and Plan - Assessment and Plan (Free Text) Assessment: MSA Parkinsons DX Shry Drager Low ext weakness?? Dx progression PT Rytary as per Neuro Disposition?? awaiting transfer to [place] Pt has medical decision making capacity but is financially vulnerable and would benefit from legal guardianship Court and Social service involved Pt is [place] WW[place] MRSA Nares Bactroban Recuurent c-diff d/c Vanco / Flagyl ?? Urine CS psuedomonas ? UA wnl S/P Bradycardia Hypotenson chronic A-fib Sepsis ? Autonomic dysfunction? IVF Midodrine ID Cardiology Lethargy?? improved Baclofen d/c Infection resolved Reconsult Neuro R shoulder pain Dec ROM xrays subluxation Ultram PRN PT Gastroentritis? 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
[2016-12-15] MEDS: CARBIDOPA PO SCH ×3 (04:15→21:34)
[2016-12-15] MEDS: LEVODOPA PO SCH ×3 (04:15→21:34)
[2016-12-15] MEDS: Bethanechol 50 MG TAB PO SCH ×3 (09:22→17:34)
[2016-12-15] MEDS: Benzocaine/Menthol (Cepacol) Lozenge PO PRN (09:29)
--- NOTE | 2016-12-15 16:42 | CP.PCM.PN ---
Subjective - Date & Time of Evaluation Date of Evaluation: 12/15/16 Time of Evaluation: 22:22 - Subjective Subjective: Above noted Objective - Vital Signs/Intake and Output Vital Signs (last 24 hours): Temp Pulse Resp BP Pulse Ox 97.7 F 69 20 151/78 H 96 12/15/16 16:17 12/15/16 16:17 12/15/16 16:17 12/15/16 16:17 12/15/16 16:17 - Medications Medications: Current Medications Acetaminophen (Tylenol 325mg Tab) 650 mg PO Q6 PRN PRN Reason: Pain, Mild (1-3) Last Admin: 11/08/16 12:10 Dose: 650 mg Amantadine HCl (Amantadine 100 Mg Cap) 100 mg PO BID [facility] Last Admin: 12/15/16 09:23 Dose: 100 mg Benzocaine/Menthol (Cepacol Sore Throat) 1 morro PO Q3 PRN PRN Reason: Sore Throat Last Admin: 12/15/16 09:29 Dose: 1 morro Bethanechol Chloride (Urecholine) 50 mg PO TID [facility] Last Admin: 12/15/16 12:51 Dose: 50 mg Carbidopa/Levodopa (Rytary Er 48.75 Mg-195 Mg Cap) 1 cap PO TID@0500,1300,2100 [facility] Last Admin: 12/15/16 12:50 Dose: 1 cap Magnesium Hydroxide (Milk Of Magnesia) 30 ml PO DAILY PRN PRN Reason: Constipation Last Admin: 10/29/16 05:03 Dose: 30 ml Midodrine (Proamatine) 10 mg PO TID [facility] Last Admin: 12/15/16 12:50 Dose: 10 mg Mupirocin (Bactroban Ointment) 1 applic TOP BID [facility] Last Admin: 12/15/16 09:23 Dose: 1 applic - Labs Labs: 11/26/16 05:55 11/26/16 05:55 - Respiratory Exam Respiratory Exam: NORMAL BREATHING PATTERN - Cardiovascular Exam Cardiovascular Exam: REGULAR RHYTHM - GI/Abdominal Exam GI & Abdominal Exam: Normal Bowel Sounds Assessment and Plan - Assessment and Plan (Free Text) Assessment: MSA Parkinsons DX Shry Drager Low ext weakness?? Dx progression PT Rytary as per Neuro Disposition?? awaiting transfer to [place] Pt has medical decision making capacity but is financially vulnerable and would benefit from legal guardianship Court and Social service involved Pt is [place] WW[place] S/P Bradycardia Hypotenson chronic A-fib Sepsis ? Autonomic dysfunction? IVF Midodrine ID Cardiology MRSA Nares Bactroban Recuurent c-diff d/c Vanco / Flagyl ?? Urine CS psuedomonas ? UA wnl Lethargy?? improved Baclofen d/c Infection resolved Reconsult Neuro R shoulder pain Dec ROM xrays subluxation Ultram PRN PT Gastroentritis? 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
[2016-12-16] MEDS: LEVODOPA PO SCH ×3 (05:29→21:09)
[2016-12-16] MEDS: CARBIDOPA PO SCH ×3 (05:29→21:09)
[2016-12-16] MEDS: Bethanechol 50 MG TAB PO SCH ×3 (09:09→17:13)
--- NOTE | 2016-12-16 21:06 | CP.PCM.PN ---
Subjective - Date & Time of Evaluation Date of Evaluation: 12/16/16 Time of Evaluation: 22:22 - Subjective Subjective: Above noted Objective - Vital Signs/Intake and Output Vital Signs (last 24 hours): Temp Pulse Resp BP Pulse Ox 97.5 F L 62 18 186/61 H 99 12/16/16 15:45 12/16/16 15:45 12/16/16 15:45 12/16/16 15:45 12/16/16 15:45 - Medications Medications: Current Medications Acetaminophen (Tylenol 325mg Tab) 650 mg PO Q6 PRN PRN Reason: Pain, Mild (1-3) Last Admin: 11/08/16 12:10 Dose: 650 mg Amantadine HCl (Amantadine 100 Mg Cap) 100 mg PO BID [facility] Last Admin: 12/16/16 17:13 Dose: 100 mg Benzocaine/Menthol (Cepacol Sore Throat) 1 morro PO Q3 PRN PRN Reason: Sore Throat Last Admin: 12/15/16 09:29 Dose: 1 morro Bethanechol Chloride (Urecholine) 50 mg PO TID [facility] Last Admin: 12/16/16 17:13 Dose: 50 mg Carbidopa/Levodopa (Rytary Er 48.75 Mg-195 Mg Cap) 1 cap PO TID@0500,1300,2100 [facility] Last Admin: 12/16/16 12:32 Dose: 1 cap Magnesium Hydroxide (Milk Of Magnesia) 30 ml PO DAILY PRN PRN Reason: Constipation Last Admin: 10/29/16 05:03 Dose: 30 ml Midodrine (Proamatine) 10 mg PO TID [facility] Last Admin: 12/16/16 17:13 Dose: 10 mg Mupirocin (Bactroban Ointment) 1 applic TOP BID [facility] Last Admin: 12/16/16 17:13 Dose: 1 applic - Labs Labs: 11/26/16 05:55 11/26/16 05:55 - Respiratory Exam Respiratory Exam: NORMAL BREATHING PATTERN - Cardiovascular Exam Cardiovascular Exam: REGULAR RHYTHM - GI/Abdominal Exam GI & Abdominal Exam: Normal Bowel Sounds Assessment and Plan - Assessment and Plan (Free Text) Assessment: MSA Parkinsons DX Shry Drager Low ext weakness?? Dx progression PT Rytary as per Neuro Disposition?? awaiting transfer to [place] Pt has medical decision making capacity but is financially vulnerable and would benefit from legal guardianship Court and Social service involved Pt is [place] S/P Bradycardia Hypotenson chronic A-fib Sepsis ? Autonomic dysfunction? IVF Midodrine ID Cardiology MRSA Nares Bactroban Recuurent c-diff d/c Vanco / Flagyl ?? Urine CS psuedomonas ? UA wnl Lethargy?? improved Baclofen d/c Infection resolved Reconsult Neuro R shoulder pain Dec ROM xrays subluxation Ultram PRN PT Gastroentritis? 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
[2016-12-17] MEDS: CARBIDOPA PO SCH ×3 (04:22→21:06)
[2016-12-17] MEDS: LEVODOPA PO SCH ×3 (04:22→21:06)
[2016-12-17] MEDS: Bethanechol 50 MG TAB PO SCH ×3 (10:24→17:06)
--- NOTE | 2016-12-17 21:08 | CP.PCM.PN ---
Subjective - Date & Time of Evaluation Date of Evaluation: 12/17/16 Time of Evaluation: 22:22 - Subjective Subjective: Sleeping Objective - Vital Signs/Intake and Output Vital Signs (last 24 hours): Temp Pulse Resp BP Pulse Ox 97.7 F 69 18 111/61 98 12/17/16 15:56 12/17/16 15:56 12/17/16 15:56 12/17/16 15:56 12/17/16 15:56 - Medications Medications: Current Medications Acetaminophen (Tylenol 325mg Tab) 650 mg PO Q6 PRN PRN Reason: Pain, Mild (1-3) Last Admin: 11/08/16 12:10 Dose: 650 mg Amantadine HCl (Amantadine 100 Mg Cap) 100 mg PO BID [facility] Last Admin: 12/17/16 17:06 Dose: 100 mg Benzocaine/Menthol (Cepacol Sore Throat) 1 morro PO Q3 PRN PRN Reason: Sore Throat Last Admin: 12/15/16 09:29 Dose: 1 morro Bethanechol Chloride (Urecholine) 50 mg PO TID [facility] Last Admin: 12/17/16 17:06 Dose: 50 mg Carbidopa/Levodopa (Rytary Er 48.75 Mg-195 Mg Cap) 1 cap PO TID@0500,1300,2100 [facility] Last Admin: 12/17/16 21:06 Dose: 1 cap Magnesium Hydroxide (Milk Of Magnesia) 30 ml PO DAILY PRN PRN Reason: Constipation Last Admin: 10/29/16 05:03 Dose: 30 ml Midodrine (Proamatine) 10 mg PO TID [facility] Last Admin: 12/17/16 17:06 Dose: 10 mg Mupirocin (Bactroban Ointment) 1 applic TOP BID [facility] Last Admin: 12/17/16 17:07 Dose: 1 applic - Labs Labs: 11/26/16 05:55 11/26/16 05:55 - Respiratory Exam Respiratory Exam: NORMAL BREATHING PATTERN - Cardiovascular Exam Cardiovascular Exam: REGULAR RHYTHM - GI/Abdominal Exam GI & Abdominal Exam: Normal Bowel Sounds Assessment and Plan - Assessment and Plan (Free Text) Assessment: MSA Parkinsons DX Shry Drager Low ext weakness?? Dx progression PT Rytary as per Neuro Disposition?? awaiting transfer to [place] Pt has medical decision making capacity but is financially vulnerable and would benefit from legal guardianship Court and Social service involved Pt is [place] S/P Bradycardia Hypotenson chronic A-fib Sepsis ? Autonomic dysfunction? IVF Midodrine ID Cardiology MRSA Nares Bactroban Recuurent c-diff d/c Vanco / Flagyl ?? Urine CS psuedomonas ? UA wnl Lethargy?? improved Baclofen d/c Infection resolved Reconsult Neuro R shoulder pain Dec ROM xrays subluxation Ultram PRN PT Gastroentritis? 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
[2016-12-18] MEDS: LEVODOPA PO SCH ×3 (05:37→21:42)
[2016-12-18] MEDS: CARBIDOPA PO SCH ×3 (05:37→21:42)
[2016-12-18] MEDS: Bethanechol 50 MG TAB PO SCH ×3 (09:19→17:26)
[2016-12-18] MEDS: Benzocaine/Menthol (Cepacol) Lozenge PO PRN (14:32)
--- NOTE | 2016-12-18 19:19 | CP.PCM.PN ---
Subjective - Date & Time of Evaluation Date of Evaluation: 12/14/16 Time of Evaluation: 22:22 - Subjective Subjective: Doing well Objective - Vital Signs/Intake and Output Vital Signs (last 24 hours): Temp Pulse Resp BP Pulse Ox 97.8 F 65 17 138/74 99 12/18/16 16:00 12/18/16 16:00 12/18/16 16:00 12/18/16 16:00 12/18/16 16:00 - Medications Medications: Current Medications Acetaminophen (Tylenol 325mg Tab) 650 mg PO Q6 PRN PRN Reason: Pain, Mild (1-3) Last Admin: 11/08/16 12:10 Dose: 650 mg Benzocaine/Menthol (Cepacol Sore Throat) 1 morro PO Q3 PRN PRN Reason: Sore Throat Last Admin: 12/18/16 14:32 Dose: 1 morro Bethanechol Chloride (Urecholine) 50 mg PO TID [facility] Last Admin: 12/18/16 17:26 Dose: 50 mg Carbidopa/Levodopa (Rytary Er 48.75 Mg-195 Mg Cap) 1 cap PO TID@0500,1300,2100 [facility] Last Admin: 12/18/16 13:12 Dose: 1 cap Magnesium Hydroxide (Milk Of Magnesia) 30 ml PO DAILY PRN PRN Reason: Constipation Last Admin: 10/29/16 05:03 Dose: 30 ml Midodrine (Proamatine) 10 mg PO TID [facility] Last Admin: 12/18/16 17:26 Dose: 10 mg Mupirocin (Bactroban Ointment) 1 applic TOP BID [facility] Last Admin: 12/18/16 17:26 Dose: 1 applic - Labs Labs: 11/26/16 05:55 11/26/16 05:55 - Respiratory Exam Respiratory Exam: NORMAL BREATHING PATTERN - Cardiovascular Exam Cardiovascular Exam: REGULAR RHYTHM - GI/Abdominal Exam GI & Abdominal Exam: Normal Bowel Sounds Assessment and Plan - Assessment and Plan (Free Text) Assessment: MSA Parkinsons DX Shry Drager Low ext weakness?? Dx progression PT Rytary as per Neuro Disposition?? awaiting transfer to [place] Pt has medical decision making capacity but is financially vulnerable and would benefit from legal guardianship Court and Social service involved Pt is [place] S/P Bradycardia Hypotenson chronic A-fib Sepsis ? Autonomic dysfunction? IVF Midodrine ID Cardiology MRSA Nares Bactroban Recuurent c-diff d/c Vanco / Flagyl ?? Urine CS psuedomonas ? UA wnl Lethargy?? improved Baclofen d/c Infection resolved Reconsult Neuro R shoulder pain Dec ROM xrays subluxation Ultram PRN PT Gastroentritis? 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
[2016-12-19] MEDS: CARBIDOPA PO SCH ×3 (05:55→21:44)
[2016-12-19] MEDS: LEVODOPA PO SCH ×3 (05:55→21:44)
[2016-12-19] MEDS: Bethanechol 50 MG TAB PO SCH ×3 (09:36→17:44)
--- NOTE | 2016-12-19 20:09 | CP.PCM.PN ---
Subjective - Date & Time of Evaluation Date of Evaluation: 12/19/16 Time of Evaluation: 22:22 - Subjective Subjective: Above noted Objective - Vital Signs/Intake and Output Vital Signs (last 24 hours): Temp Pulse Resp BP Pulse Ox 97.8 F 79 20 129/77 97 12/19/16 16:41 12/19/16 16:41 12/19/16 16:41 12/19/16 16:41 12/19/16 16:41 - Medications Medications: Current Medications Acetaminophen (Tylenol 325mg Tab) 650 mg PO Q6 PRN PRN Reason: Pain, Mild (1-3) Last Admin: 11/08/16 12:10 Dose: 650 mg Benzocaine/Menthol (Cepacol Sore Throat) 1 morro PO Q3 PRN PRN Reason: Sore Throat Last Admin: 12/18/16 14:32 Dose: 1 morro Bethanechol Chloride (Urecholine) 50 mg PO TID [facility] Last Admin: 12/19/16 17:44 Dose: 50 mg Carbidopa/Levodopa (Rytary Er 48.75 Mg-195 Mg Cap) 1 cap PO TID@0500,1300,2100 [facility] Last Admin: 12/19/16 13:00 Dose: 1 cap Magnesium Hydroxide (Milk Of Magnesia) 30 ml PO DAILY PRN PRN Reason: Constipation Last Admin: 10/29/16 05:03 Dose: 30 ml Midodrine (Proamatine) 10 mg PO TID [facility] Last Admin: 12/19/16 17:42 Dose: 10 mg Mupirocin (Bactroban Ointment) 1 applic TOP BID [facility] Last Admin: 12/19/16 17:40 Dose: 1 applic - Labs Labs: 11/26/16 05:55 11/26/16 05:55 - Respiratory Exam Respiratory Exam: NORMAL BREATHING PATTERN - Cardiovascular Exam Cardiovascular Exam: REGULAR RHYTHM - GI/Abdominal Exam GI & Abdominal Exam: Normal Bowel Sounds Assessment and Plan - Assessment and Plan (Free Text) Assessment: MSA Parkinsons DX Shry Drager Low ext weakness?? Dx progression PT Rytary as per Neuro Disposition?? awaiting transfer to [place] Pt has medical decision making capacity but is financially vulnerable and would benefit from legal guardianship Court and Social service involved Pt is [place] S/P Bradycardia Hypotenson chronic A-fib Sepsis ? Autonomic dysfunction? IVF Midodrine ID Cardiology MRSA Nares Bactroban Recuurent c-diff d/c Vanco / Flagyl ?? Urine CS psuedomonas ? UA wnl Lethargy?? improved Baclofen d/c Infection resolved Reconsult Neuro R shoulder pain Dec ROM xrays subluxation Ultram PRN PT Gastroentritis? 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
[2016-12-20] MEDS: CARBIDOPA PO SCH ×3 (05:23→22:24)
[2016-12-20] MEDS: LEVODOPA PO SCH ×3 (05:23→22:24)
[2016-12-20] MEDS: Bethanechol 50 MG TAB PO SCH ×3 (11:05→17:55)
--- NOTE | 2016-12-20 19:25 | CARD ---
APPROVED REPORT EKG Measurement Heart [id number] <Conclusion> Atrial fibrillation ST & T wave abnormality, consider inferior ischemia Abnormal ECG
--- NOTE | 2016-12-20 19:29 | CP.PCM.PN ---
Subjective - Date & Time of Evaluation Date of Evaluation: 12/20/16 Time of Evaluation: 22:22 - Subjective Subjective: GI upset today Better now Objective - Vital Signs/Intake and Output Vital Signs (last 24 hours): Temp Pulse Resp BP Pulse Ox 97.5 F L 76 18 135/77 98 12/20/16 15:50 12/20/16 15:50 12/20/16 15:50 12/20/16 15:50 12/20/16 15:50 - Medications Medications: Current Medications Acetaminophen (Tylenol 325mg Tab) 650 mg PO Q6 PRN PRN Reason: Pain, Mild (1-3) Last Admin: 12/20/16 13:34 Dose: 650 mg Benzocaine/Menthol (Cepacol Sore Throat) 1 morro PO Q3 PRN PRN Reason: Sore Throat Last Admin: 12/18/16 14:32 Dose: 1 morro Bethanechol Chloride (Urecholine) 50 mg PO TID [facility] Last Admin: 12/20/16 17:55 Dose: 50 mg Carbidopa/Levodopa (Rytary Er 48.75 Mg-195 Mg Cap) 1 cap PO TID@0500,1300,2100 [facility] Last Admin: 12/20/16 13:36 Dose: 1 cap Magnesium Hydroxide (Milk Of Magnesia) 30 ml PO DAILY PRN PRN Reason: Constipation Last Admin: 10/29/16 05:03 Dose: 30 ml Midodrine (Proamatine) 10 mg PO TID [facility] Last Admin: 12/20/16 17:54 Dose: 10 mg Mupirocin (Bactroban Ointment) 1 applic TOP BID [facility] Last Admin: 12/20/16 17:54 Dose: 1 applic - Labs Labs: 11/26/16 05:55 11/26/16 05:55 - Respiratory Exam Respiratory Exam: Wheezes, NORMAL BREATHING PATTERN - Cardiovascular Exam Cardiovascular Exam: REGULAR RHYTHM - GI/Abdominal Exam GI & Abdominal Exam: Normal Bowel Sounds Assessment and Plan - Assessment and Plan (Free Text) Assessment: MSA Parkinsons DX Shry Drager Low ext weakness?? Dx progression PT Rytary as per Neuro Disposition?? awaiting transfer to [place] Pt has medical decision making capacity but is financially vulnerable and would benefit from legal guardianship Court and Social service involved Pt is [place] WW[place] S/P Bradycardia Hypotenson chronic A-fib Sepsis ? Autonomic dysfunction? IVF Midodrine ID Cardiology MRSA Nares Bactroban Recuurent c-diff d/c Vanco / Flagyl ?? Urine CS psuedomonas ? UA wnl Lethargy?? improved Baclofen d/c Infection resolved Reconsult Neuro R shoulder pain Dec ROM xrays subluxation Ultram PRN PT Gastroentritis? 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
[2016-12-21] MEDS: CARBIDOPA PO SCH ×3 (05:29→20:33)
[2016-12-21] MEDS: LEVODOPA PO SCH ×3 (05:29→20:33)
[2016-12-22] MEDS: LEVODOPA PO SCH ×3 (05:53→20:02)
[2016-12-22] MEDS: CARBIDOPA PO SCH ×3 (05:53→20:02)
--- NOTE | 2016-12-22 21:14 | CP.PCM.PN ---
Subjective - Date & Time of Evaluation Date of Evaluation: 12/22/16 Time of Evaluation: 22:22 - Subjective Subjective: Above noted Objective - Vital Signs/Intake and Output Vital Signs (last 24 hours): Temp Pulse Resp BP Pulse Ox 97.9 F 104 H 20 142/61 96 12/22/16 16:51 12/22/16 16:51 12/22/16 16:51 12/22/16 16:51 12/22/16 16:51 - Medications Medications: Current Medications Acetaminophen (Tylenol 325mg Tab) 650 mg PO Q6 PRN PRN Reason: Pain, Mild (1-3) Last Admin: 12/20/16 13:34 Dose: 650 mg Carbidopa/Levodopa (Rytary Er 48.75 Mg-195 Mg Cap) 1 cap PO TID@0500,1300,2100 [facility] Last Admin: 12/22/16 20:02 Dose: 1 cap Magnesium Hydroxide (Milk Of Magnesia) 30 ml PO DAILY PRN PRN Reason: Constipation Last Admin: 10/29/16 05:03 Dose: 30 ml Midodrine (Proamatine) 10 mg PO TID [facility] Last Admin: 12/22/16 16:24 Dose: 10 mg Mupirocin (Bactroban Ointment) 1 applic TOP BID [facility] Last Admin: 12/22/16 16:23 Dose: 1 applic - Labs Labs: 11/26/16 05:55 11/26/16 05:55 - Respiratory Exam Respiratory Exam: NORMAL BREATHING PATTERN - Cardiovascular Exam Cardiovascular Exam: REGULAR RHYTHM - GI/Abdominal Exam GI & Abdominal Exam: Normal Bowel Sounds Assessment and Plan - Assessment and Plan (Free Text) Assessment: MSA Parkinsons DX Shry Drager Low ext weakness?? Dx progression PT Rytary as per Neuro Disposition?? awaiting transfer to [place] Pt has medical decision making capacity but is financially vulnerable and would benefit from legal guardianship Court and Social service involved Pt is [place] S/P Bradycardia Hypotenson chronic A-fib Sepsis ? Autonomic dysfunction? IVF Midodrine ID Cardiology MRSA Nares Bactroban Recuurent c-diff d/c Vanco / Flagyl ?? Urine CS psuedomonas ? UA wnl Lethargy?? improved Baclofen d/c Infection resolved Reconsult Neuro R shoulder pain Dec ROM xrays subluxation Ultram PRN PT Gastroentritis? 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
[2016-12-23] MEDS: LEVODOPA PO SCH ×3 (05:47→20:59)
[2016-12-23] MEDS: CARBIDOPA PO SCH ×3 (05:47→20:59)
[2016-12-23] MEDS: Bethanechol 50 MG TAB PO SCH ×3 (09:02→17:57)
--- NOTE | 2016-12-23 21:09 | CP.PCM.PN ---
Subjective - Date & Time of Evaluation Date of Evaluation: 12/23/16 Time of Evaluation: 22:22 - Subjective Subjective: Doing well Objective - Vital Signs/Intake and Output Vital Signs (last 24 hours): Temp Pulse Resp BP Pulse Ox 97.7 F 75 20 167/86 H 97 12/23/16 16:14 12/23/16 16:14 12/23/16 16:14 12/23/16 16:14 12/23/16 16:14 - Medications Medications: Current Medications Acetaminophen (Tylenol 325mg Tab) 650 mg PO Q6 PRN PRN Reason: Pain, Mild (1-3) Last Admin: 12/20/16 13:34 Dose: 650 mg Amantadine HCl (Amantadine 100 Mg Cap) 100 mg PO BID [facility] Last Admin: 12/23/16 17:57 Dose: 100 mg Bethanechol Chloride (Urecholine) 50 mg PO TID [facility] Last Admin: 12/23/16 17:57 Dose: 50 mg Carbidopa/Levodopa (Rytary Er 48.75 Mg-195 Mg Cap) 1 cap PO TID@0500,1300,2100 [facility] Last Admin: 12/23/16 20:59 Dose: 1 cap Magnesium Hydroxide (Milk Of Magnesia) 30 ml PO DAILY PRN PRN Reason: Constipation Last Admin: 10/29/16 05:03 Dose: 30 ml Midodrine (Proamatine) 10 mg PO TID [facility] Last Admin: 12/23/16 17:58 Dose: 10 mg Mupirocin (Bactroban Ointment) 1 applic TOP BID [facility] Last Admin: 12/23/16 17:58 Dose: 1 applic - Labs Labs: 11/26/16 05:55 11/26/16 05:55 - Respiratory Exam Respiratory Exam: NORMAL BREATHING PATTERN - Cardiovascular Exam Cardiovascular Exam: REGULAR RHYTHM - GI/Abdominal Exam GI & Abdominal Exam: Normal Bowel Sounds Assessment and Plan - Assessment and Plan (Free Text) Assessment: MSA Parkinsons DX Shry Drager Low ext weakness?? Dx progression PT Rytary as per Neuro Disposition?? awaiting transfer to [place] Pt has medical decision making capacity but is financially vulnerable and would benefit from legal guardianship Court and Social service involved Pt is [place] S/P Bradycardia Hypotenson chronic A-fib Sepsis ? Autonomic dysfunction? IVF Midodrine ID Cardiology MRSA Nares Bactroban Recuurent c-diff d/c Vanco / Flagyl ?? Urine CS psuedomonas ? UA wnl Lethargy?? improved Baclofen d/c Infection resolved Reconsult Neuro R shoulder pain Dec ROM xrays subluxation Ultram PRN PT Gastroentritis? 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
[2016-12-24] MEDS: LEVODOPA PO SCH ×3 (04:33→20:51)
[2016-12-24] MEDS: CARBIDOPA PO SCH ×3 (04:33→20:51)
[2016-12-24] MEDS: Bethanechol 50 MG TAB PO SCH ×3 (09:00→17:39)
--- NOTE | 2016-12-24 17:14 | CP.PCM.PN ---
Subjective - Date & Time of Evaluation Date of Evaluation: 12/24/16 Time of Evaluation: 22:22 - Subjective Subjective: Above noted Objective - Vital Signs/Intake and Output Vital Signs (last 24 hours): Temp Pulse Resp BP Pulse Ox 97.7 F 81 20 133/74 100 12/24/16 16:28 12/24/16 16:28 12/24/16 16:28 12/24/16 16:28 12/24/16 16:28 - Medications Medications: Current Medications Acetaminophen (Tylenol 325mg Tab) 650 mg PO Q6 PRN PRN Reason: Pain, Mild (1-3) Last Admin: 12/20/16 13:34 Dose: 650 mg Amantadine HCl (Amantadine 100 Mg Cap) 100 mg PO BID [facility] Last Admin: 12/24/16 09:00 Dose: 100 mg Bethanechol Chloride (Urecholine) 50 mg PO TID [facility] Last Admin: 12/24/16 09:00 Dose: 50 mg Carbidopa/Levodopa (Rytary Er 48.75 Mg-195 Mg Cap) 1 cap PO TID@0500,1300,2100 [facility] Last Admin: 12/24/16 12:47 Dose: 1 cap Magnesium Hydroxide (Milk Of Magnesia) 30 ml PO DAILY PRN PRN Reason: Constipation Last Admin: 10/29/16 05:03 Dose: 30 ml Midodrine (Proamatine) 10 mg PO TID [facility] Last Admin: 12/24/16 12:47 Dose: 10 mg Mupirocin (Bactroban Ointment) 1 applic TOP BID [facility] Last Admin: 12/24/16 09:00 Dose: 1 applic - Labs Labs: 11/26/16 05:55 11/26/16 05:55 - Respiratory Exam Respiratory Exam: NORMAL BREATHING PATTERN - Cardiovascular Exam Cardiovascular Exam: REGULAR RHYTHM - GI/Abdominal Exam GI & Abdominal Exam: Normal Bowel Sounds Assessment and Plan - Assessment and Plan (Free Text) Assessment: MSA Parkinsons DX Shry Drager Low ext weakness?? Dx progression PT Rytary as per Neuro Disposition?? awaiting transfer to [place] Pt has medical decision making capacity but is financially vulnerable and would benefit from legal guardianship Court and Social service involved Pt is [place] WW[place] S/P Bradycardia Hypotenson chronic A-fib Sepsis ? Autonomic dysfunction? IVF Midodrine ID Cardiology MRSA Nares Bactroban Recuurent c-diff d/c Vanco / Flagyl ?? Urine CS psuedomonas ? UA wnl Lethargy?? improved Baclofen d/c Infection resolved Reconsult Neuro R shoulder pain Dec ROM xrays subluxation Ultram PRN PT Gastroentritis? 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
[2016-12-25] MEDS: LEVODOPA PO SCH ×3 (04:57→20:39)
[2016-12-25] MEDS: CARBIDOPA PO SCH ×3 (04:57→20:39)
[2016-12-25] MEDS: Bethanechol 50 MG TAB PO SCH ×3 (09:03→17:21)
[2016-12-25] MEDS: Magnesium Hydroxide Susp 30 ml UD PO PRN (09:10)
--- NOTE | 2016-12-25 22:19 | CP.PCM.PN ---
Subjective - Date & Time of Evaluation Date of Evaluation: 12/25/16 Time of Evaluation: 22:22 - Subjective Subjective: Above noted Objective - Vital Signs/Intake and Output Vital Signs (last 24 hours): Temp Pulse Resp BP Pulse Ox 97.5 F L 54 L 20 123/67 96 12/25/16 15:59 12/25/16 15:59 12/25/16 15:59 12/25/16 15:59 12/25/16 15:59 - Medications Medications: Current Medications Acetaminophen (Tylenol 325mg Tab) 650 mg PO Q6 PRN PRN Reason: Pain, Mild (1-3) Last Admin: 12/20/16 13:34 Dose: 650 mg Amantadine HCl (Amantadine 100 Mg Cap) 100 mg PO BID [facility] Last Admin: 12/25/16 17:20 Dose: 100 mg Bethanechol Chloride (Urecholine) 50 mg PO TID [facility] Last Admin: 12/25/16 17:21 Dose: 50 mg Carbidopa/Levodopa (Rytary Er 48.75 Mg-195 Mg Cap) 1 cap PO TID@0500,1300,2100 [facility] Last Admin: 12/25/16 20:39 Dose: 1 cap Magnesium Hydroxide (Milk Of Magnesia) 30 ml PO DAILY PRN PRN Reason: Constipation Last Admin: 12/25/16 09:10 Dose: 30 ml Midodrine (Proamatine) 10 mg PO TID [facility] Last Admin: 12/25/16 17:20 Dose: 10 mg Mupirocin (Bactroban Ointment) 1 applic TOP BID [facility] Last Admin: 12/25/16 17:20 Dose: 1 applic - Labs Labs: 11/26/16 05:55 11/26/16 05:55 - Respiratory Exam Respiratory Exam: NORMAL BREATHING PATTERN - Cardiovascular Exam Cardiovascular Exam: Tachycardia, REGULAR RHYTHM - GI/Abdominal Exam GI & Abdominal Exam: Normal Bowel Sounds Assessment and Plan - Assessment and Plan (Free Text) Assessment: MSA Parkinsons DX Shry Drager Low ext weakness?? Dx progression PT Rytary as per Neuro Disposition?? awaiting transfer to [place] Pt has medical decision making capacity but is financially vulnerable and would benefit from legal guardianship Court and Social service involved Pt is [place] S/P Bradycardia Hypotenson chronic A-fib Sepsis ? Autonomic dysfunction? IVF Midodrine ID Cardiology MRSA Nares Bactroban Recuurent c-diff d/c Vanco / Flagyl ?? Urine CS psuedomonas ? UA wnl Lethargy?? improved Baclofen d/c Infection resolved Reconsult Neuro R shoulder pain Dec ROM xrays subluxation Ultram PRN PT Gastroentritis? 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
[2016-12-26] MEDS: LEVODOPA PO SCH ×3 (05:45→20:21)
[2016-12-26] MEDS: CARBIDOPA PO SCH ×3 (05:45→20:21)
[2016-12-26] MEDS: Bethanechol 50 MG TAB PO SCH ×3 (08:25→17:39)
--- NOTE | 2016-12-26 15:03 | CP.PCM.PN ---
Subjective - Date & Time of Evaluation Date of Evaluation: 12/26/16 Time of Evaluation: 22:22 - Subjective Subjective: Refused to get OOB today Objective - Vital Signs/Intake and Output Vital Signs (last 24 hours): Temp Pulse Resp BP Pulse Ox 97.4 F L 57 L 20 138/72 95 12/26/16 08:16 12/26/16 08:16 12/26/16 08:16 12/26/16 08:16 12/26/16 08:16 - Medications Medications: Current Medications Acetaminophen (Tylenol 325mg Tab) 650 mg PO Q6 PRN PRN Reason: Pain, Mild (1-3) Last Admin: 12/20/16 13:34 Dose: 650 mg Amantadine HCl (Amantadine 100 Mg Cap) 100 mg PO BID [facility] Last Admin: 12/26/16 08:33 Dose: 100 mg Bethanechol Chloride (Urecholine) 50 mg PO TID [facility] Last Admin: 12/26/16 12:35 Dose: 50 mg Carbidopa/Levodopa (Rytary Er 48.75 Mg-195 Mg Cap) 1 cap PO TID@0500,1300,2100 [facility] Last Admin: 12/26/16 12:35 Dose: 1 cap Magnesium Hydroxide (Milk Of Magnesia) 30 ml PO DAILY PRN PRN Reason: Constipation Last Admin: 12/25/16 09:10 Dose: 30 ml Midodrine (Proamatine) 10 mg PO TID [facility] Last Admin: 12/26/16 12:35 Dose: 10 mg Mupirocin (Bactroban Ointment) 1 applic TOP BID [facility] Last Admin: 12/26/16 08:33 Dose: 1 applic - Labs Labs: 11/26/16 05:55 11/26/16 05:55 - Respiratory Exam Respiratory Exam: NORMAL BREATHING PATTERN - Cardiovascular Exam Cardiovascular Exam: REGULAR RHYTHM - GI/Abdominal Exam GI & Abdominal Exam: Normal Bowel Sounds Assessment and Plan - Assessment and Plan (Free Text) Assessment: MSA Parkinsons DX Shry Drager Low ext weakness?? Dx progression PT Rytary as per Neuro Disposition?? awaiting transfer to [place] Pt has medical decision making capacity but is financially vulnerable and would benefit from legal guardianship Court and Social service involved Pt is [place] S/P Bradycardia Hypotenson chronic A-fib Sepsis ? Autonomic dysfunction? IVF Midodrine ID Cardiology MRSA Nares Bactroban Recuurent c-diff d/c Vanco / Flagyl ?? Urine CS psuedomonas ? UA wnl Lethargy?? improved Baclofen d/c Infection resolved Reconsult Neuro R shoulder pain Dec ROM xrays subluxation Ultram PRN PT Gastroentritis? 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
[2016-12-27] MEDS: CARBIDOPA PO SCH ×3 (05:02→20:34)
[2016-12-27] MEDS: LEVODOPA PO SCH ×3 (05:02→20:34)
[2016-12-27] MEDS: Bethanechol 50 MG TAB PO SCH ×3 (09:24→17:28)
--- NOTE | 2016-12-27 16:16 | CP.PCM.PN ---
Subjective - Date & Time of Evaluation Date of Evaluation: 12/27/16 Time of Evaluation: 22:22 - Subjective Subjective: Above noted Objective - Vital Signs/Intake and Output Vital Signs (last 24 hours): Temp Pulse Resp BP Pulse Ox 97.9 F 55 L 18 157/81 H 96 12/27/16 15:50 12/27/16 15:50 12/27/16 15:50 12/27/16 15:50 12/27/16 15:50 - Medications Medications: Current Medications Acetaminophen (Tylenol 325mg Tab) 650 mg PO Q6 PRN PRN Reason: Pain, Mild (1-3) Last Admin: 12/20/16 13:34 Dose: 650 mg Amantadine HCl (Amantadine 100 Mg Cap) 100 mg PO BID [facility] Last Admin: 12/27/16 09:25 Dose: 100 mg Bethanechol Chloride (Urecholine) 50 mg PO TID [facility] Last Admin: 12/27/16 13:00 Dose: 50 mg Carbidopa/Levodopa (Rytary Er 48.75 Mg-195 Mg Cap) 1 cap PO TID@0500,1300,2100 [facility] Last Admin: 12/27/16 13:00 Dose: 1 cap Magnesium Hydroxide (Milk Of Magnesia) 30 ml PO DAILY PRN PRN Reason: Constipation Last Admin: 12/25/16 09:10 Dose: 30 ml Midodrine (Proamatine) 10 mg PO TID [facility] Last Admin: 12/27/16 13:00 Dose: 10 mg Mupirocin (Bactroban Ointment) 1 applic TOP BID [facility] Last Admin: 12/27/16 09:25 Dose: 1 applic - Labs Labs: 11/26/16 05:55 11/26/16 05:55 - Respiratory Exam Respiratory Exam: NORMAL BREATHING PATTERN - Cardiovascular Exam Cardiovascular Exam: REGULAR RHYTHM - GI/Abdominal Exam GI & Abdominal Exam: Normal Bowel Sounds Assessment and Plan - Assessment and Plan (Free Text) Assessment: MSA Parkinsons DX Shry Drager Low ext weakness?? Dx progression PT Rytary as per Neuro Disposition?? awaiting transfer to [place] Pt has medical decision making capacity but is financially vulnerable and would benefit from legal guardianship Court and Social service involved Pt is [place] WW[place] S/P Bradycardia Hypotenson chronic A-fib Sepsis ? Autonomic dysfunction? IVF Midodrine ID Cardiology MRSA Nares Bactroban Recuurent c-diff d/c Vanco / Flagyl ?? Urine CS psuedomonas ? UA wnl Lethargy?? improved Baclofen d/c Infection resolved Reconsult Neuro R shoulder pain Dec ROM xrays subluxation Ultram PRN PT Gastroentritis? 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
[2016-12-28] MEDS: LEVODOPA PO SCH ×3 (05:13→20:15)
[2016-12-28] MEDS: CARBIDOPA PO SCH ×3 (05:13→20:15)
[2016-12-28] MEDS: Bethanechol 50 MG TAB PO SCH ×3 (10:41→16:52)
[2016-12-29] MEDS: CARBIDOPA PO SCH ×3 (04:32→21:47)
[2016-12-29] MEDS: LEVODOPA PO SCH ×3 (04:32→21:47)
[2016-12-29] MEDS: Bethanechol 50 MG TAB PO SCH ×3 (08:58→17:07)
--- NOTE | 2016-12-29 18:57 | CP.PCM.PN ---
Subjective - Date & Time of Evaluation Date of Evaluation: 12/29/16 Time of Evaluation: 22:22 - Subjective Subjective: Above noted Objective - Vital Signs/Intake and Output Vital Signs (last 24 hours): Temp Pulse Resp BP Pulse Ox 98.6 F 97 H 20 123/86 97 12/29/16 17:00 12/29/16 17:00 12/29/16 17:00 12/29/16 17:00 12/29/16 17:00 - Medications Medications: Current Medications Acetaminophen (Tylenol 325mg Tab) 650 mg PO Q6 PRN PRN Reason: Pain, Mild (1-3) Last Admin: 12/20/16 13:34 Dose: 650 mg Amantadine HCl (Amantadine 100 Mg Cap) 100 mg PO BID [facility] Last Admin: 12/29/16 17:06 Dose: 100 mg Bethanechol Chloride (Urecholine) 50 mg PO TID [facility] Last Admin: 12/29/16 17:07 Dose: 50 mg Carbidopa/Levodopa (Rytary Er 48.75 Mg-195 Mg Cap) 1 cap PO TID@0500,1300,2100 [facility] Last Admin: 12/29/16 12:26 Dose: 1 cap Magnesium Hydroxide (Milk Of Magnesia) 30 ml PO DAILY PRN PRN Reason: Constipation Last Admin: 12/25/16 09:10 Dose: 30 ml Midodrine (Proamatine) 10 mg PO TID [facility] Last Admin: 12/29/16 17:07 Dose: 10 mg Mupirocin (Bactroban Ointment) 1 applic TOP BID [facility] Last Admin: 12/29/16 17:06 Dose: 1 applic - Labs Labs: 11/26/16 05:55 11/26/16 05:55 - Respiratory Exam Respiratory Exam: NORMAL BREATHING PATTERN - Cardiovascular Exam Cardiovascular Exam: Tachycardia, REGULAR RHYTHM - GI/Abdominal Exam GI & Abdominal Exam: Normal Bowel Sounds Assessment and Plan - Assessment and Plan (Free Text) Assessment: MSA Parkinsons DX Shry Drager Low ext weakness?? Dx progression PT Rytary as per Neuro Disposition?? awaiting transfer to [place] Pt has medical decision making capacity but is financially vulnerable and would benefit from legal guardianship Court and Social service involved Pt is [place] WW[place] S/P Bradycardia Hypotenson chronic A-fib Sepsis ? Autonomic dysfunction? IVF Midodrine ID Cardiology MRSA Nares Bactroban Recuurent c-diff d/c Vanco / Flagyl ?? Urine CS psuedomonas ? UA wnl Lethargy?? improved Baclofen d/c Infection resolved Reconsult Neuro R shoulder pain Dec ROM xrays subluxation Ultram PRN PT Gastroentritis? 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
[2016-12-30] MEDS: LEVODOPA PO SCH ×3 (04:31→21:51)
[2016-12-30] MEDS: CARBIDOPA PO SCH ×3 (04:31→21:51)
[2016-12-30] MEDS: Bethanechol 50 MG TAB PO SCH ×3 (08:29→17:37)
--- NOTE | 2016-12-30 19:53 | CP.PCM.PN ---
Subjective - Date & Time of Evaluation Date of Evaluation: 12/30/16 Time of Evaluation: 22:22 - Subjective Subjective: Doing well Sleeping Objective - Vital Signs/Intake and Output Vital Signs (last 24 hours): Temp Pulse Resp BP Pulse Ox 98 F 98 H 20 127/69 93 L 12/30/16 16:31 12/30/16 16:31 12/30/16 16:31 12/30/16 16:31 12/30/16 16:31 - Medications Medications: Current Medications Acetaminophen (Tylenol 325mg Tab) 650 mg PO Q6 PRN PRN Reason: Pain, Mild (1-3) Last Admin: 12/20/16 13:34 Dose: 650 mg Amantadine HCl (Amantadine 100 Mg Cap) 100 mg PO BID [facility] Last Admin: 12/30/16 17:37 Dose: 100 mg Bethanechol Chloride (Urecholine) 50 mg PO TID [facility] Last Admin: 12/30/16 17:37 Dose: 50 mg Carbidopa/Levodopa (Rytary Er 48.75 Mg-195 Mg Cap) 1 cap PO TID@0500,1300,2100 [facility] Last Admin: 12/30/16 12:13 Dose: 1 cap Magnesium Hydroxide (Milk Of Magnesia) 30 ml PO DAILY PRN PRN Reason: Constipation Last Admin: 12/25/16 09:10 Dose: 30 ml Midodrine (Proamatine) 10 mg PO TID [facility] Last Admin: 12/30/16 17:37 Dose: 10 mg Mupirocin (Bactroban Ointment) 1 applic TOP BID [facility] Last Admin: 12/30/16 17:37 Dose: 1 applic - Labs Labs: 11/26/16 05:55 11/26/16 05:55 - Respiratory Exam Respiratory Exam: NORMAL BREATHING PATTERN - Cardiovascular Exam Cardiovascular Exam: REGULAR RHYTHM - GI/Abdominal Exam GI & Abdominal Exam: Normal Bowel Sounds Assessment and Plan - Assessment and Plan (Free Text) Assessment: MSA Parkinsons DX Shry Drager Low ext weakness?? Dx progression PT Rytary as per Neuro Disposition?? awaiting transfer to [place] Pt has medical decision making capacity but is financially vulnerable and would benefit from legal guardianship Court and Social service involved Pt is [place] S/P Bradycardia Hypotenson chronic A-fib Sepsis ? Autonomic dysfunction? IVF Midodrine ID Cardiology MRSA Nares Bactroban Recuurent c-diff d/c Vanco / Flagyl ?? Urine CS psuedomonas ? UA wnl Lethargy?? improved Baclofen d/c Infection resolved Reconsult Neuro R shoulder pain Dec ROM xrays subluxation Ultram PRN PT Gastroentritis? 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
[2016-12-31] MEDS: LEVODOPA PO SCH ×3 (05:12→20:37)
[2016-12-31] MEDS: CARBIDOPA PO SCH ×3 (05:12→20:37)
[2016-12-31] MEDS: Bethanechol 50 MG TAB PO SCH ×3 (08:19→16:06)
--- NOTE | 2016-12-31 20:47 | CP.PCM.PN ---
Subjective - Date & Time of Evaluation Date of Evaluation: 12/31/16 Time of Evaluation: 22:22 - Subjective Subjective: Above noted Objective - Vital Signs/Intake and Output Vital Signs (last 24 hours): Temp Pulse Resp BP Pulse Ox 97.6 F 73 20 148/56 L 98 12/31/16 16:26 12/31/16 16:26 12/31/16 16:26 12/31/16 16:26 12/31/16 16:26 - Medications Medications: Current Medications Acetaminophen (Tylenol 325mg Tab) 650 mg PO Q6 PRN PRN Reason: Pain, Mild (1-3) Last Admin: 12/20/16 13:34 Dose: 650 mg Amantadine HCl (Amantadine 100 Mg Cap) 100 mg PO BID [facility] Last Admin: 12/31/16 16:06 Dose: 100 mg Bethanechol Chloride (Urecholine) 50 mg PO TID [facility] Last Admin: 12/31/16 16:06 Dose: 50 mg Carbidopa/Levodopa (Rytary Er 48.75 Mg-195 Mg Cap) 1 cap PO TID@0500,1300,2100 [facility] Last Admin: 12/31/16 20:37 Dose: 1 cap Magnesium Hydroxide (Milk Of Magnesia) 30 ml PO DAILY PRN PRN Reason: Constipation Last Admin: 12/25/16 09:10 Dose: 30 ml Midodrine (Proamatine) 10 mg PO TID [facility] Last Admin: 12/31/16 16:06 Dose: 10 mg Mupirocin (Bactroban Ointment) 1 applic TOP BID [facility] Last Admin: 12/31/16 16:05 Dose: 1 applic - Labs Labs: 11/26/16 05:55 11/26/16 05:55 - Respiratory Exam Respiratory Exam: NORMAL BREATHING PATTERN - Cardiovascular Exam Cardiovascular Exam: REGULAR RHYTHM - GI/Abdominal Exam GI & Abdominal Exam: Normal Bowel Sounds Assessment and Plan - Assessment and Plan (Free Text) Assessment: MSA Parkinsons DX Shry Drager Low ext weakness?? Dx progression PT Rytary as per Neuro Disposition?? awaiting transfer to [place] Pt has medical decision making capacity but is financially vulnerable and would benefit from legal guardianship Court and Social service involved Pt is [place] S/P Bradycardia Hypotenson chronic A-fib Sepsis ? Autonomic dysfunction? IVF Midodrine ID Cardiology MRSA Nares Bactroban Recuurent c-diff d/c Vanco / Flagyl ?? Urine CS psuedomonas ? UA wnl Lethargy?? improved Baclofen d/c Infection resolved Reconsult Neuro R shoulder pain Dec ROM xrays subluxation Ultram PRN PT Gastroentritis? 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
[2017-01-01] MEDS: LEVODOPA PO SCH ×3 (05:36→20:17)
[2017-01-01] MEDS: CARBIDOPA PO SCH ×3 (05:36→20:17)
[2017-01-01] MEDS: Bethanechol 50 MG TAB PO SCH ×3 (08:50→16:47)
--- NOTE | 2017-01-01 17:49 | CP.PCM.PN ---
Subjective - Date & Time of Evaluation Date of Evaluation: 01/01/17 Time of Evaluation: 22:22 - Subjective Subjective: Above noted Objective - Vital Signs/Intake and Output Vital Signs (last 24 hours): Temp Pulse Resp BP Pulse Ox 97.7 F 66 20 154/81 H 97 01/01/17 16:08 01/01/17 16:08 01/01/17 16:08 01/01/17 16:08 01/01/17 16:08 - Medications Medications: Current Medications Acetaminophen (Tylenol 325mg Tab) 650 mg PO Q6 PRN PRN Reason: Pain, Mild (1-3) Last Admin: 12/20/16 13:34 Dose: 650 mg Amantadine HCl (Amantadine 100 Mg Cap) 100 mg PO BID [facility] Last Admin: 01/01/17 16:46 Dose: 100 mg Bethanechol Chloride (Urecholine) 50 mg PO TID [facility] Last Admin: 01/01/17 16:47 Dose: 50 mg Carbidopa/Levodopa (Rytary Er 48.75 Mg-195 Mg Cap) 1 cap PO TID@0500,1300,2100 [facility] Last Admin: 01/01/17 12:16 Dose: 1 cap Magnesium Hydroxide (Milk Of Magnesia) 30 ml PO DAILY PRN PRN Reason: Constipation Last Admin: 12/25/16 09:10 Dose: 30 ml Midodrine (Proamatine) 10 mg PO TID [facility] Last Admin: 01/01/17 16:46 Dose: 10 mg Mupirocin (Bactroban Ointment) 1 applic TOP BID [facility] Last Admin: 01/01/17 16:46 Dose: 1 applic - Labs Labs: 11/26/16 05:55 11/26/16 05:55 - Respiratory Exam Respiratory Exam: NORMAL BREATHING PATTERN - Cardiovascular Exam Cardiovascular Exam: REGULAR RHYTHM - GI/Abdominal Exam GI & Abdominal Exam: Normal Bowel Sounds Assessment and Plan - Assessment and Plan (Free Text) Assessment: MSA Parkinsons DX Shry Drager Low ext weakness?? Dx progression PT Rytary as per Neuro Disposition?? awaiting transfer to [place] Pt has medical decision making capacity but is financially vulnerable and would benefit from legal guardianship Court and Social service involved Pt is [place] S/P Bradycardia Hypotenson chronic A-fib Sepsis ? Autonomic dysfunction? IVF Midodrine ID Cardiology MRSA Nares Bactroban Recuurent c-diff d/c Vanco / Flagyl ?? Urine CS psuedomonas ? UA wnl Lethargy?? improved Baclofen d/c Infection resolved Reconsult Neuro R shoulder pain Dec ROM xrays subluxation Ultram PRN PT Gastroentritis? 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
[2017-01-02] MEDS: CARBIDOPA PO SCH ×3 (04:05→21:05)
[2017-01-02] MEDS: LEVODOPA PO SCH ×3 (04:05→21:05)
[2017-01-02] MEDS: Bethanechol 50 MG TAB PO SCH ×3 (08:21→16:56)
--- NOTE | 2017-01-02 21:03 | CP.PCM.PN ---
Subjective - Date & Time of Evaluation Date of Evaluation: 01/02/17 Time of Evaluation: 22:22 - Subjective Subjective: Doing well Objective - Vital Signs/Intake and Output Vital Signs (last 24 hours): Temp Pulse Resp BP Pulse Ox 97.6 F 64 18 150/87 97 01/02/17 15:58 01/02/17 15:58 01/02/17 15:58 01/02/17 15:58 01/02/17 15:58 - Medications Medications: Current Medications Acetaminophen (Tylenol 325mg Tab) 650 mg PO Q6 PRN PRN Reason: Pain, Mild (1-3) Last Admin: 12/20/16 13:34 Dose: 650 mg Amantadine HCl (Amantadine 100 Mg Cap) 100 mg PO BID [facility] Last Admin: 01/02/17 16:56 Dose: 100 mg Bethanechol Chloride (Urecholine) 50 mg PO TID [facility] Last Admin: 01/02/17 16:56 Dose: 50 mg Carbidopa/Levodopa (Rytary Er 48.75 Mg-195 Mg Cap) 1 cap PO TID@0500,1300,2100 [facility] Last Admin: 01/02/17 13:03 Dose: 1 cap Magnesium Hydroxide (Milk Of Magnesia) 30 ml PO DAILY PRN PRN Reason: Constipation Last Admin: 12/25/16 09:10 Dose: 30 ml Midodrine (Proamatine) 10 mg PO TID [facility] Last Admin: 01/02/17 16:56 Dose: 10 mg Mupirocin (Bactroban Ointment) 1 applic TOP BID [facility] Last Admin: 01/02/17 16:56 Dose: 1 applic - Labs Labs: 11/26/16 05:55 11/26/16 05:55 - Respiratory Exam Respiratory Exam: NORMAL BREATHING PATTERN - Cardiovascular Exam Cardiovascular Exam: REGULAR RHYTHM - GI/Abdominal Exam GI & Abdominal Exam: Normal Bowel Sounds Assessment and Plan - Assessment and Plan (Free Text) Assessment: MSA Parkinsons DX Shry Drager Low ext weakness?? Dx progression PT Rytary as per Neuro Disposition?? awaiting transfer to [place] Pt has medical decision making capacity but is financially vulnerable and would benefit from legal guardianship Court and Social service involved Pt is [place] S/P Bradycardia Hypotenson chronic A-fib Sepsis ? Autonomic dysfunction? IVF Midodrine ID Cardiology MRSA Nares Bactroban Recuurent c-diff d/c Vanco / Flagyl ?? Urine CS psuedomonas ? UA wnl Lethargy?? improved Baclofen d/c Infection resolved Reconsult Neuro R shoulder pain Dec ROM xrays subluxation Ultram PRN PT Gastroentritis? 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
[2017-01-03] MEDS: LEVODOPA PO SCH ×3 (05:24→21:36)
[2017-01-03] MEDS: CARBIDOPA PO SCH ×3 (05:24→21:36)
[2017-01-03] MEDS: Bethanechol 50 MG TAB PO SCH ×3 (09:31→17:59)
--- NOTE | 2017-01-03 19:19 | CP.PCM.PN ---
Subjective - Date & Time of Evaluation Date of Evaluation: 01/03/17 Time of Evaluation: 22:22 - Subjective Subjective: Above noted Objective - Vital Signs/Intake and Output Vital Signs (last 24 hours): Temp Pulse Resp BP Pulse Ox 97.9 F 64 20 110/59 L 98 01/03/17 16:05 01/03/17 16:05 01/03/17 16:05 01/03/17 16:05 01/03/17 16:05 - Medications Medications: Current Medications Acetaminophen (Tylenol 325mg Tab) 650 mg PO Q6 PRN PRN Reason: Pain, Mild (1-3) Last Admin: 12/20/16 13:34 Dose: 650 mg Amantadine HCl (Amantadine 100 Mg Cap) 100 mg PO BID [facility] Last Admin: 01/03/17 17:59 Dose: 100 mg Bethanechol Chloride (Urecholine) 50 mg PO TID [facility] Last Admin: 01/03/17 17:59 Dose: 50 mg Carbidopa/Levodopa (Rytary Er 48.75 Mg-195 Mg Cap) 1 cap PO TID@0500,1300,2100 [facility] Last Admin: 01/03/17 13:04 Dose: 1 cap Magnesium Hydroxide (Milk Of Magnesia) 30 ml PO DAILY PRN PRN Reason: Constipation Last Admin: 12/25/16 09:10 Dose: 30 ml Midodrine (Proamatine) 10 mg PO TID [facility] Last Admin: 01/03/17 17:59 Dose: 10 mg Mupirocin (Bactroban Ointment) 1 applic TOP BID [facility] Last Admin: 01/03/17 17:59 Dose: 1 applic - Labs Labs: 11/26/16 05:55 11/26/16 05:55 - Respiratory Exam Respiratory Exam: NORMAL BREATHING PATTERN - Cardiovascular Exam Cardiovascular Exam: Tachycardia - GI/Abdominal Exam GI & Abdominal Exam: Normal Bowel Sounds Assessment and Plan - Assessment and Plan (Free Text) Assessment: MSA Parkinsons DX Shry Drager Low ext weakness?? Dx progression PT Rytary as per Neuro Disposition?? awaiting transfer to [place] Pt has medical decision making capacity but is financially vulnerable and would benefit from legal guardianship Court and Social service involved Pt is [place] S/P Bradycardia Hypotenson chronic A-fib Sepsis ? Autonomic dysfunction? IVF Midodrine ID Cardiology MRSA Nares Bactroban Recuurent c-diff d/c Vanco / Flagyl ?? Urine CS psuedomonas ? UA wnl Lethargy?? improved Baclofen d/c Infection resolved Reconsult Neuro R shoulder pain Dec ROM xrays subluxation Ultram PRN PT Gastroentritis? 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
[2017-01-04] MEDS: CARBIDOPA PO SCH ×3 (05:54→20:28)
[2017-01-04] MEDS: LEVODOPA PO SCH ×3 (05:54→20:28)
[2017-01-04] MEDS: Bethanechol 50 MG TAB PO SCH ×3 (09:04→16:26)
[2017-01-05] MEDS: LEVODOPA PO SCH ×3 (05:51→20:51)
[2017-01-05] MEDS: CARBIDOPA PO SCH ×3 (05:51→20:51)
[2017-01-05] MEDS: Bethanechol 50 MG TAB PO SCH ×3 (08:32→16:08)
[2017-01-06] MEDS: LEVODOPA PO SCH ×3 (05:32→21:27)
[2017-01-06] MEDS: CARBIDOPA PO SCH ×3 (05:32→21:27)
[2017-01-06] MEDS: Bethanechol 50 MG TAB PO SCH ×3 (08:40→17:28)
--- NOTE | 2017-01-06 21:26 | CP.PCM.PN ---
Subjective - Date & Time of Evaluation Date of Evaluation: 01/06/17 Time of Evaluation: 22:22 - Subjective Subjective: No change Objective - Vital Signs/Intake and Output Vital Signs (last 24 hours): Temp Pulse Resp BP Pulse Ox 98 F 69 20 142/77 97 01/06/17 16:18 01/06/17 16:18 01/06/17 16:18 01/06/17 16:18 01/06/17 16:18 - Medications Medications: Current Medications Acetaminophen (Tylenol 325mg Tab) 650 mg PO Q6 PRN PRN Reason: Pain, Mild (1-3) Last Admin: 12/20/16 13:34 Dose: 650 mg Amantadine HCl (Amantadine 100 Mg Cap) 100 mg PO BID [facility] Last Admin: 01/06/17 17:28 Dose: 100 mg Bethanechol Chloride (Urecholine) 50 mg PO TID [facility] Last Admin: 01/06/17 17:28 Dose: 50 mg Carbidopa/Levodopa (Rytary Er 48.75 Mg-195 Mg Cap) 1 cap PO TID@0500,1300,2100 [facility] Last Admin: 01/06/17 12:52 Dose: 1 cap Magnesium Hydroxide (Milk Of Magnesia) 30 ml PO DAILY PRN PRN Reason: Constipation Last Admin: 12/25/16 09:10 Dose: 30 ml Midodrine (Proamatine) 10 mg PO TID [facility] Last Admin: 01/06/17 17:28 Dose: 10 mg Mupirocin (Bactroban Ointment) 1 applic TOP BID [facility] Last Admin: 01/06/17 17:28 Dose: 1 applic - Labs Labs: 11/26/16 05:55 11/26/16 05:55 - Respiratory Exam Respiratory Exam: NORMAL BREATHING PATTERN - Cardiovascular Exam Cardiovascular Exam: REGULAR RHYTHM - GI/Abdominal Exam GI & Abdominal Exam: Normal Bowel Sounds Assessment and Plan - Assessment and Plan (Free Text) Assessment: MSA Parkinsons DX Shry Drager Low ext weakness?? Dx progression PT Rytary as per Neuro Disposition?? awaiting transfer to [place] Pt has medical decision making capacity but is financially vulnerable and would benefit from legal guardianship Court and Social service involved Pt is [place] WW[place] S/P Bradycardia Hypotenson chronic A-fib Sepsis ? Autonomic dysfunction? IVF Midodrine ID Cardiology MRSA Nares Bactroban Recuurent c-diff d/c Vanco / Flagyl ?? Urine CS psuedomonas ? UA wnl Lethargy?? improved Baclofen d/c Infection resolved Reconsult Neuro R shoulder pain Dec ROM xrays subluxation Ultram PRN PT Gastroentritis? 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
[2017-01-07] MEDS: CARBIDOPA PO SCH ×3 (04:55→21:58)
[2017-01-07] MEDS: LEVODOPA PO SCH ×3 (04:55→21:58)
[2017-01-07] MEDS: Bethanechol 50 MG TAB PO SCH ×3 (09:30→17:18)
--- NOTE | 2017-01-07 17:26 | CP.PCM.PN ---
Subjective - Date & Time of Evaluation Date of Evaluation: 01/07/17 Time of Evaluation: 22:22 - Subjective Subjective: Above noted Objective - Vital Signs/Intake and Output Vital Signs (last 24 hours): Temp Pulse Resp BP Pulse Ox 97.7 F 81 20 144/80 98 01/07/17 16:43 01/07/17 16:43 01/07/17 16:43 01/07/17 16:43 01/07/17 16:43 - Medications Medications: Current Medications Acetaminophen (Tylenol 325mg Tab) 650 mg PO Q6 PRN PRN Reason: Pain, Mild (1-3) Last Admin: 12/20/16 13:34 Dose: 650 mg Amantadine HCl (Amantadine 100 Mg Cap) 100 mg PO BID [facility] Last Admin: 01/07/17 17:19 Dose: 100 mg Bethanechol Chloride (Urecholine) 50 mg PO TID [facility] Last Admin: 01/07/17 17:18 Dose: 50 mg Carbidopa/Levodopa (Rytary Er 48.75 Mg-195 Mg Cap) 1 cap PO TID@0500,1300,2100 [facility] Last Admin: 01/07/17 13:00 Dose: 1 cap Magnesium Hydroxide (Milk Of Magnesia) 30 ml PO DAILY PRN PRN Reason: Constipation Last Admin: 12/25/16 09:10 Dose: 30 ml Midodrine (Proamatine) 10 mg PO TID [facility] Last Admin: 01/07/17 17:17 Dose: 10 mg Mupirocin (Bactroban Ointment) 1 applic TOP BID [facility] Last Admin: 01/07/17 17:18 Dose: 1 applic - Labs Labs: 11/26/16 05:55 11/26/16 05:55 - Respiratory Exam Respiratory Exam: NORMAL BREATHING PATTERN - Cardiovascular Exam Cardiovascular Exam: REGULAR RHYTHM - GI/Abdominal Exam GI & Abdominal Exam: Normal Bowel Sounds Assessment and Plan - Assessment and Plan (Free Text) Assessment: MSA Parkinsons DX Shry Drager Low ext weakness?? Dx progression PT Rytary as per Neuro Disposition?? awaiting transfer to [place] Pt has medical decision making capacity but is financially vulnerable and would benefit from legal guardianship Court and Social service involved Pt is [place] S/P Bradycardia Hypotenson chronic A-fib Sepsis ? Autonomic dysfunction? IVF Midodrine ID Cardiology MRSA Nares Bactroban Recuurent c-diff d/c Vanco / Flagyl ?? Urine CS psuedomonas ? UA wnl Lethargy?? improved Baclofen d/c Infection resolved Reconsult Neuro R shoulder pain Dec ROM xrays subluxation Ultram PRN PT Gastroentritis? 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
[2017-01-08] MEDS: CARBIDOPA PO SCH ×3 (04:39→20:42)
[2017-01-08] MEDS: LEVODOPA PO SCH ×3 (04:39→20:42)
[2017-01-08] MEDS: Bethanechol 50 MG TAB PO SCH ×3 (08:46→17:19)
--- NOTE | 2017-01-08 19:35 | CP.PCM.PN ---
Subjective - Date & Time of Evaluation Date of Evaluation: 01/08/17 Time of Evaluation: 22:22 - Subjective Subjective: Above noted Objective - Vital Signs/Intake and Output Vital Signs (last 24 hours): Temp Pulse Resp BP Pulse Ox 97.4 F L 79 20 140/68 96 01/08/17 16:09 01/08/17 16:09 01/08/17 16:09 01/08/17 16:09 01/08/17 16:09 - Medications Medications: Current Medications Acetaminophen (Tylenol 325mg Tab) 650 mg PO Q6 PRN PRN Reason: Pain, Mild (1-3) Last Admin: 12/20/16 13:34 Dose: 650 mg Amantadine HCl (Amantadine 100 Mg Cap) 100 mg PO BID [facility] Last Admin: 01/08/17 17:19 Dose: 100 mg Bethanechol Chloride (Urecholine) 50 mg PO TID [facility] Last Admin: 01/08/17 17:19 Dose: 50 mg Carbidopa/Levodopa (Rytary Er 48.75 Mg-195 Mg Cap) 1 cap PO TID@0500,1300,2100 [facility] Last Admin: 01/08/17 13:03 Dose: 1 cap Magnesium Hydroxide (Milk Of Magnesia) 30 ml PO DAILY PRN PRN Reason: Constipation Last Admin: 12/25/16 09:10 Dose: 30 ml Midodrine (Proamatine) 10 mg PO TID [facility] Last Admin: 01/08/17 17:19 Dose: 10 mg Mupirocin (Bactroban Ointment) 1 applic TOP BID [facility] Last Admin: 01/08/17 17:18 Dose: 1 applic - Labs Labs: 11/26/16 05:55 11/26/16 05:55 - Respiratory Exam Respiratory Exam: NORMAL BREATHING PATTERN - Cardiovascular Exam Cardiovascular Exam: REGULAR RHYTHM - GI/Abdominal Exam GI & Abdominal Exam: Normal Bowel Sounds Assessment and Plan - Assessment and Plan (Free Text) Assessment: MSA Parkinsons DX Shry Drager Low ext weakness?? Dx progression PT Rytary as per Neuro Disposition?? awaiting transfer to [place] Pt has medical decision making capacity but is financially vulnerable and would benefit from legal guardianship Court and Social service involved Pt is [place] S/P Bradycardia Hypotenson chronic A-fib Sepsis ? Autonomic dysfunction? IVF Midodrine ID Cardiology MRSA Nares Bactroban Recuurent c-diff d/c Vanco / Flagyl ?? Urine CS psuedomonas ? UA wnl Lethargy?? improved Baclofen d/c Infection resolved Reconsult Neuro R shoulder pain Dec ROM xrays subluxation Ultram PRN PT Gastroentritis? 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
[2017-01-09] MEDS: CARBIDOPA PO SCH ×3 (04:38→20:46)
[2017-01-09] MEDS: LEVODOPA PO SCH ×3 (04:38→20:46)
[2017-01-09] MEDS: Bethanechol 50 MG TAB PO SCH ×3 (09:44→17:40)
--- NOTE | 2017-01-09 15:20 | CP.PCM.PN ---
Subjective - Date & Time of Evaluation Date of Evaluation: 01/09/17 Time of Evaluation: 22:22 - Subjective Subjective: Above noted- Objective - Vital Signs/Intake and Output Vital Signs (last 24 hours): Temp Pulse Resp BP Pulse Ox 97.5 F L 58 L 18 110/69 98 01/09/17 08:00 01/09/17 08:00 01/09/17 08:00 01/09/17 08:00 01/09/17 08:00 - Medications Medications: Current Medications Acetaminophen (Tylenol 325mg Tab) 650 mg PO Q6 PRN PRN Reason: Pain, Mild (1-3) Last Admin: 12/20/16 13:34 Dose: 650 mg Amantadine HCl (Amantadine 100 Mg Cap) 100 mg PO BID [facility] Last Admin: 01/09/17 09:44 Dose: 100 mg Benzocaine/Menthol (Cepacol Sore Throat) 1 morro PO TID PRN PRN Reason: Sore Throat Bethanechol Chloride (Urecholine) 50 mg PO TID [facility] Last Admin: 01/09/17 12:53 Dose: 50 mg Carbidopa/Levodopa (Rytary Er 48.75 Mg-195 Mg Cap) 1 cap PO TID@0500,1300,2100 [facility] Last Admin: 01/09/17 12:53 Dose: 1 cap Magnesium Hydroxide (Milk Of Magnesia) 30 ml PO DAILY PRN PRN Reason: Constipation Last Admin: 12/25/16 09:10 Dose: 30 ml Midodrine (Proamatine) 10 mg PO TID [facility] Last Admin: 01/09/17 12:53 Dose: 10 mg Mupirocin (Bactroban Ointment) 1 applic TOP BID [facility] Last Admin: 01/09/17 09:44 Dose: 1 applic - Labs Labs: 11/26/16 05:55 11/26/16 05:55 - Respiratory Exam Respiratory Exam: NORMAL BREATHING PATTERN - Cardiovascular Exam Cardiovascular Exam: REGULAR RHYTHM - GI/Abdominal Exam GI & Abdominal Exam: Normal Bowel Sounds Assessment and Plan - Assessment and Plan (Free Text) Assessment: MSA Parkinsons DX Shry Drager Low ext weakness?? Dx progression PT Rytary as per Neuro Disposition?? awaiting transfer to [place] Pt has medical decision making capacity but is financially vulnerable and would benefit from legal guardianship Court and Social service involved Pt is [place] S/P Bradycardia Hypotenson chronic A-fib Sepsis ? Autonomic dysfunction? IVF Midodrine ID Cardiology MRSA Nares Bactroban Recuurent c-diff d/c Vanco / Flagyl ?? Urine CS psuedomonas ? UA wnl Lethargy?? improved Baclofen d/c Infection resolved Reconsult Neuro R shoulder pain Dec ROM xrays subluxation Ultram PRN PT Gastroentritis? 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
[2017-01-09] MEDS: Benzocaine/Menthol (Cepacol) Lozenge PO PRN (17:40)
[2017-01-10] MEDS: LEVODOPA PO SCH ×3 (04:34→21:32)
[2017-01-10] MEDS: CARBIDOPA PO SCH ×3 (04:34→21:32)
[2017-01-10] MEDS: Bethanechol 50 MG TAB PO SCH ×3 (10:11→16:31)
[2017-01-11] MEDS: LEVODOPA PO SCH ×3 (05:05→21:23)
[2017-01-11] MEDS: CARBIDOPA PO SCH ×3 (05:05→21:23)
[2017-01-11] MEDS: Bethanechol 50 MG TAB PO SCH ×2 (09:10→13:05)
[2017-01-12] MEDS: LEVODOPA PO SCH ×3 (04:35→20:10)
[2017-01-12] MEDS: CARBIDOPA PO SCH ×3 (04:35→20:10)
[2017-01-12] MEDS: Bethanechol 50 MG TAB PO SCH ×4 (08:20→16:03)
[2017-01-13] MEDS: CARBIDOPA PO SCH ×3 (05:16→21:45)
[2017-01-13] MEDS: LEVODOPA PO SCH ×3 (05:16→21:45)
[2017-01-13] MEDS: Bethanechol 50 MG TAB PO SCH ×3 (09:00→17:11)
[2017-01-14] MEDS: Benzocaine/Menthol (Cepacol) Lozenge PO PRN ×2 (03:23→20:10)
[2017-01-14] MEDS: LEVODOPA PO SCH ×3 (05:30→20:10)
[2017-01-14] MEDS: CARBIDOPA PO SCH ×3 (05:30→20:10)
[2017-01-14] MEDS: Bethanechol 50 MG TAB PO SCH ×3 (08:16→16:30)
[2017-01-15] MEDS: LEVODOPA PO SCH ×3 (04:03→21:32)
[2017-01-15] MEDS: CARBIDOPA PO SCH ×3 (04:03→21:32)
[2017-01-15] MEDS: Bethanechol 50 MG TAB PO SCH ×3 (09:06→17:22)
--- NOTE | 2017-01-15 19:25 | CP.PCM.PN ---
Subjective - Date & Time of Evaluation Date of Evaluation: 01/15/17 Time of Evaluation: 22:22 - Subjective Subjective: Sleeping Objective - Vital Signs/Intake and Output Vital Signs (last 24 hours): Temp Pulse Resp BP Pulse Ox 97.7 F 63 20 140/78 99 01/15/17 16:24 01/15/17 16:24 01/15/17 16:24 01/15/17 16:24 01/15/17 16:24 - Medications Medications: Current Medications Acetaminophen (Tylenol 325mg Tab) 650 mg PO Q6 PRN PRN Reason: Pain, Mild (1-3) Last Admin: 01/15/17 09:12 Dose: 650 mg Amantadine HCl (Amantadine 100 Mg Cap) 100 mg PO BID [facility] Last Admin: 01/15/17 17:21 Dose: 100 mg Benzocaine/Menthol (Cepacol Sore Throat) 1 morro PO TID PRN PRN Reason: Sore Throat Last Admin: 01/14/17 20:10 Dose: 1 morro Bethanechol Chloride (Urecholine) 50 mg PO TID [facility] Last Admin: 01/15/17 17:22 Dose: 50 mg Carbidopa/Levodopa (Rytary Er 48.75 Mg-195 Mg Cap) 1 cap PO TID@0500,1300,2100 [facility] Last Admin: 01/15/17 13:30 Dose: 1 cap Magnesium Hydroxide (Milk Of Magnesia) 30 ml PO DAILY PRN PRN Reason: Constipation Last Admin: 12/25/16 09:10 Dose: 30 ml Midodrine (Proamatine) 10 mg PO TID [facility] Last Admin: 01/15/17 17:21 Dose: 10 mg Mupirocin (Bactroban Ointment) 1 applic TOP BID [facility] Last Admin: 01/15/17 17:22 Dose: 1 applic - Labs Labs: 11/26/16 05:55 11/26/16 05:55 - Respiratory Exam Respiratory Exam: NORMAL BREATHING PATTERN - Cardiovascular Exam Cardiovascular Exam: REGULAR RHYTHM - GI/Abdominal Exam GI & Abdominal Exam: Normal Bowel Sounds Assessment and Plan - Assessment and Plan (Free Text) Assessment: MSA Parkinsons DX Shry Drager Low ext weakness?? Dx progression PT Rytary as per Neuro Disposition?? awaiting transfer to [place] Pt has medical decision making capacity but is financially vulnerable and would benefit from legal guardianship Court and Social service involved Pt is [place] S/P Bradycardia Hypotenson chronic A-fib Sepsis ? Autonomic dysfunction? IVF Midodrine ID Cardiology MRSA Nares Bactroban Recuurent c-diff d/c Vanco / Flagyl ?? Urine CS psuedomonas ? UA wnl Lethargy?? improved Baclofen d/c Infection resolved Reconsult Neuro R shoulder pain Dec ROM xrays subluxation Ultram PRN PT Gastroentritis? 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
[2017-01-16] MEDS: LEVODOPA PO SCH ×3 (05:43→23:30)
[2017-01-16] MEDS: CARBIDOPA PO SCH ×3 (05:43→23:30)
[2017-01-16] MEDS: Benzocaine/Menthol (Cepacol) Lozenge PO PRN (05:51)
[2017-01-16] MEDS: Bethanechol 50 MG TAB PO SCH ×3 (10:11→18:51)
--- NOTE | 2017-01-16 20:11 | CP.PCM.PN ---
Subjective - Date & Time of Evaluation Date of Evaluation: 01/16/17 Time of Evaluation: 22:22 - Subjective Subjective: Above noted Objective - Vital Signs/Intake and Output Vital Signs (last 24 hours): Temp Pulse Resp BP Pulse Ox 98.1 F 96 H 20 144/77 96 01/16/17 16:09 01/16/17 16:09 01/16/17 16:09 01/16/17 16:09 01/16/17 16:09 - Medications Medications: Current Medications Acetaminophen (Tylenol 325mg Tab) 650 mg PO Q6 PRN PRN Reason: Pain, Mild (1-3) Last Admin: 01/15/17 09:12 Dose: 650 mg Amantadine HCl (Amantadine 100 Mg Cap) 100 mg PO BID [facility] Last Admin: 01/16/17 18:51 Dose: 100 mg Benzocaine/Menthol (Cepacol Sore Throat) 1 morro PO TID PRN PRN Reason: Sore Throat Last Admin: 01/16/17 05:51 Dose: 1 morro Bethanechol Chloride (Urecholine) 50 mg PO TID [facility] Last Admin: 01/16/17 18:51 Dose: 50 mg Carbidopa/Levodopa (Rytary Er 48.75 Mg-195 Mg Cap) 1 cap PO TID@0500,1300,2100 [facility] Last Admin: 01/16/17 13:50 Dose: 1 cap Magnesium Hydroxide (Milk Of Magnesia) 30 ml PO DAILY PRN PRN Reason: Constipation Last Admin: 12/25/16 09:10 Dose: 30 ml Midodrine (Proamatine) 10 mg PO TID [facility] Last Admin: 01/16/17 18:51 Dose: 10 mg Mupirocin (Bactroban Ointment) 1 applic TOP BID [facility] Last Admin: 01/16/17 18:51 Dose: 1 applic - Labs Labs: 11/26/16 05:55 11/26/16 05:55 - Respiratory Exam Respiratory Exam: NORMAL BREATHING PATTERN - Cardiovascular Exam Cardiovascular Exam: REGULAR RHYTHM - GI/Abdominal Exam GI & Abdominal Exam: Normal Bowel Sounds Assessment and Plan - Assessment and Plan (Free Text) Assessment: MSA Parkinsons DX Shry Drager Low ext weakness?? Dx progression PT Rytary as per Neuro Disposition?? awaiting transfer to [place] Pt has medical decision making capacity but is financially vulnerable and would benefit from legal guardianship Court and Social service involved Pt is [place] S/P Bradycardia Hypotenson chronic A-fib Sepsis ? Autonomic dysfunction? IVF Midodrine ID Cardiology MRSA Nares Bactroban Recuurent c-diff d/c Vanco / Flagyl ?? Urine CS psuedomonas ? UA wnl Lethargy?? improved Baclofen d/c Infection resolved Reconsult Neuro R shoulder pain Dec ROM xrays subluxation Ultram PRN PT Gastroentritis? 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
[2017-01-17] MEDS: CARBIDOPA PO SCH ×3 (05:02→20:26)
[2017-01-17] MEDS: LEVODOPA PO SCH ×3 (05:02→20:26)
[2017-01-17] MEDS: Benzocaine/Menthol (Cepacol) Lozenge PO PRN (05:19)
[2017-01-17] MEDS: Bethanechol 50 MG TAB PO SCH ×3 (09:17→18:00)
--- NOTE | 2017-01-17 19:13 | CP.PCM.PN ---
Subjective - Date & Time of Evaluation Date of Evaluation: 01/17/17 Time of Evaluation: 22:22 - Subjective Subjective: Above noted Objective - Vital Signs/Intake and Output Vital Signs (last 24 hours): Temp Pulse Resp BP Pulse Ox 97.8 F 61 16 102/63 98 01/17/17 16:00 01/17/17 16:00 01/17/17 16:00 01/17/17 16:00 01/17/17 16:00 - Medications Medications: Current Medications Acetaminophen (Tylenol 325mg Tab) 650 mg PO Q6 PRN PRN Reason: Pain, Mild (1-3) Last Admin: 01/15/17 09:12 Dose: 650 mg Amantadine HCl (Amantadine 100 Mg Cap) 100 mg PO BID [facility] Last Admin: 01/17/17 18:02 Dose: 100 mg Benzocaine/Menthol (Cepacol Sore Throat) 1 morro PO TID PRN PRN Reason: Sore Throat Last Admin: 01/17/17 05:19 Dose: 1 morro Bethanechol Chloride (Urecholine) 50 mg PO TID [facility] Last Admin: 01/17/17 18:00 Dose: 50 mg Carbidopa/Levodopa (Rytary Er 48.75 Mg-195 Mg Cap) 1 cap PO TID@0500,1300,2100 [facility] Last Admin: 01/17/17 14:00 Dose: 1 cap Magnesium Hydroxide (Milk Of Magnesia) 30 ml PO DAILY PRN PRN Reason: Constipation Last Admin: 12/25/16 09:10 Dose: 30 ml Midodrine (Proamatine) 10 mg PO TID [facility] Last Admin: 01/17/17 18:01 Dose: 10 mg Mupirocin (Bactroban Ointment) 1 applic TOP BID [facility] Last Admin: 01/17/17 18:02 Dose: 1 applic - Labs Labs: 11/26/16 05:55 11/26/16 05:55 - Respiratory Exam Respiratory Exam: NORMAL BREATHING PATTERN - Cardiovascular Exam Cardiovascular Exam: REGULAR RHYTHM - GI/Abdominal Exam GI & Abdominal Exam: Normal Bowel Sounds Assessment and Plan - Assessment and Plan (Free Text) Assessment: MSA Parkinsons DX Shry Drager Low ext weakness?? Dx progression PT Rytary as per Neuro Disposition?? awaiting transfer to [place] Pt has medical decision making capacity but is financially vulnerable and would benefit from legal guardianship Court and Social service involved Pt is [place] S/P Bradycardia Hypotenson chronic A-fib Sepsis ? Autonomic dysfunction? IVF Midodrine ID Cardiology MRSA Nares Bactroban Recuurent c-diff d/c Vanco / Flagyl ?? Urine CS psuedomonas ? UA wnl Lethargy?? improved Baclofen d/c Infection resolved Reconsult Neuro R shoulder pain Dec ROM xrays subluxation Ultram PRN PT Gastroentritis? 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
[2017-01-18] MEDS: LEVODOPA PO SCH ×3 (04:18→20:00)
[2017-01-18] MEDS: CARBIDOPA PO SCH ×3 (04:18→20:00)
[2017-01-18] MEDS: Bethanechol 50 MG TAB PO SCH ×3 (09:42→18:16)
[2017-01-19] MEDS: CARBIDOPA PO SCH ×3 (05:49→21:12)
[2017-01-19] MEDS: LEVODOPA PO SCH ×3 (05:49→21:12)
[2017-01-19] MEDS: Bethanechol 50 MG TAB PO SCH ×3 (08:39→17:13)
--- NOTE | 2017-01-19 14:40 | CP.PCM.PN ---
Subjective - Date & Time of Evaluation Date of Evaluation: 01/19/17 Time of Evaluation: 22:22 - Subjective Subjective: DOing well Objective - Vital Signs/Intake and Output Vital Signs (last 24 hours): Temp Pulse Resp BP Pulse Ox 97.5 F L 72 18 116/77 96 01/19/17 07:46 01/19/17 07:46 01/19/17 07:46 01/19/17 07:46 01/19/17 07:46 - Medications Medications: Current Medications Acetaminophen (Tylenol 325mg Tab) 650 mg PO Q6 PRN PRN Reason: Pain, Mild (1-3) Last Admin: 01/19/17 08:31 Dose: 650 mg Amantadine HCl (Amantadine 100 Mg Cap) 100 mg PO BID [facility] Last Admin: 01/19/17 08:39 Dose: 100 mg Benzocaine/Menthol (Cepacol Sore Throat) 1 morro PO TID PRN PRN Reason: Sore Throat Last Admin: 01/17/17 05:19 Dose: 1 morro Bethanechol Chloride (Urecholine) 50 mg PO TID [facility] Last Admin: 01/19/17 13:03 Dose: 50 mg Carbidopa/Levodopa (Rytary Er 48.75 Mg-195 Mg Cap) 1 cap PO TID@0500,1300,2100 [facility] Last Admin: 01/19/17 13:03 Dose: 1 cap Magnesium Hydroxide (Milk Of Magnesia) 30 ml PO DAILY PRN PRN Reason: Constipation Last Admin: 12/25/16 09:10 Dose: 30 ml Midodrine (Proamatine) 10 mg PO TID [facility] Last Admin: 01/19/17 13:57 Dose: 10 mg Mupirocin (Bactroban Ointment) 1 applic TOP BID [facility] Last Admin: 01/19/17 08:38 Dose: 1 applic - Labs Labs: 11/26/16 05:55 11/26/16 05:55 - Respiratory Exam Respiratory Exam: NORMAL BREATHING PATTERN - Cardiovascular Exam Cardiovascular Exam: REGULAR RHYTHM - GI/Abdominal Exam GI & Abdominal Exam: Normal Bowel Sounds Assessment and Plan - Assessment and Plan (Free Text) Assessment: MSA Parkinsons DX Shry Drager Low ext weakness?? Dx progression PT Rytary as per Neuro Disposition?? awaiting transfer to [place] Pt has medical decision making capacity but is financially vulnerable and would benefit from legal guardianship Court and Social service involved Pt is [place] S/P Bradycardia Hypotenson chronic A-fib Sepsis ? Autonomic dysfunction? IVF Midodrine ID Cardiology MRSA Nares Bactroban Recuurent c-diff d/c Vanco / Flagyl ?? Urine CS psuedomonas ? UA wnl Lethargy?? improved Baclofen d/c Infection resolved Reconsult Neuro R shoulder pain Dec ROM xrays subluxation Ultram PRN PT Gastroentritis? 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
[2017-01-20] MEDS: CARBIDOPA PO SCH ×3 (05:48→21:35)
[2017-01-20] MEDS: LEVODOPA PO SCH ×3 (05:48→21:35)
[2017-01-20] MEDS: Bethanechol 50 MG TAB PO SCH ×3 (09:31→17:01)
--- NOTE | 2017-01-20 19:49 | CP.PCM.PN ---
Subjective - Date & Time of Evaluation Date of Evaluation: 01/20/17 Time of Evaluation: 22:22 - Subjective Subjective: Above noted Objective - Vital Signs/Intake and Output Vital Signs (last 24 hours): Temp Pulse Resp BP Pulse Ox 97.5 F L 87 17 150/69 97 01/20/17 16:50 01/20/17 16:50 01/20/17 16:50 01/20/17 16:50 01/20/17 16:50 - Medications Medications: Current Medications Acetaminophen (Tylenol 325mg Tab) 650 mg PO Q6 PRN PRN Reason: Pain, Mild (1-3) Last Admin: 01/19/17 08:31 Dose: 650 mg Amantadine HCl (Amantadine 100 Mg Cap) 100 mg PO BID [facility] Last Admin: 01/20/17 17:01 Dose: 100 mg Benzocaine/Menthol (Cepacol Sore Throat) 1 morro PO TID PRN PRN Reason: Sore Throat Last Admin: 01/17/17 05:19 Dose: 1 morro Bethanechol Chloride (Urecholine) 50 mg PO TID [facility] Last Admin: 01/20/17 17:01 Dose: 50 mg Carbidopa/Levodopa (Rytary Er 48.75 Mg-195 Mg Cap) 1 cap PO TID@0500,1300,2100 [facility] Last Admin: 01/20/17 13:07 Dose: 1 cap Magnesium Hydroxide (Milk Of Magnesia) 30 ml PO DAILY PRN PRN Reason: Constipation Last Admin: 12/25/16 09:10 Dose: 30 ml Midodrine (Proamatine) 10 mg PO TID [facility] Last Admin: 01/20/17 17:01 Dose: 10 mg Mupirocin (Bactroban Ointment) 1 applic TOP BID [facility] Last Admin: 01/20/17 17:02 Dose: 1 applic Nystatin (Nystop Topical Powder) 1 applic TOP TID [facility] Last Admin: 01/20/17 17:01 Dose: 1 unit - Labs Labs: 11/26/16 05:55 11/26/16 05:55 - Respiratory Exam Respiratory Exam: NORMAL BREATHING PATTERN - Cardiovascular Exam Cardiovascular Exam: REGULAR RHYTHM - GI/Abdominal Exam GI & Abdominal Exam: Normal Bowel Sounds Assessment and Plan - Assessment and Plan (Free Text) Assessment: MSA Parkinsons DX Shry Drager Low ext weakness?? Dx progression PT Rytary as per Neuro Disposition?? awaiting transfer to [place] Pt has medical decision making capacity but is financially vulnerable and would benefit from legal guardianship Court and Social service involved Pt is [place] S/P Bradycardia Hypotenson chronic A-fib Sepsis ? Autonomic dysfunction? IVF Midodrine ID Cardiology MRSA Nares Bactroban Recuurent c-diff d/c Vanco / Flagyl ?? Urine CS psuedomonas ? UA wnl Lethargy?? improved Baclofen d/c Infection resolved Reconsult Neuro R shoulder pain Dec ROM xrays subluxation Ultram PRN PT Gastroentritis? 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
[2017-01-21] MEDS: LEVODOPA PO SCH ×3 (05:03→20:44)
[2017-01-21] MEDS: CARBIDOPA PO SCH ×3 (05:03→20:44)
[2017-01-21] MEDS: Bethanechol 50 MG TAB PO SCH ×3 (10:11→16:23)
--- NOTE | 2017-01-21 20:27 | CP.PCM.PN ---
Subjective - Date & Time of Evaluation Date of Evaluation: 01/21/17 Time of Evaluation: 22:22 - Subjective Subjective: Above noted Objective - Vital Signs/Intake and Output Vital Signs (last 24 hours): Temp Pulse Resp BP Pulse Ox 97.5 F L 79 18 166/86 H 98 01/21/17 17:00 01/21/17 16:04 01/21/17 17:00 01/21/17 17:00 01/21/17 17:00 - Medications Medications: Current Medications Acetaminophen (Tylenol 325mg Tab) 650 mg PO Q6 PRN PRN Reason: Pain, Mild (1-3) Last Admin: 01/19/17 08:31 Dose: 650 mg Amantadine HCl (Amantadine 100 Mg Cap) 100 mg PO BID [facility] Last Admin: 01/21/17 16:22 Dose: 100 mg Benzocaine/Menthol (Cepacol Sore Throat) 1 morro PO TID PRN PRN Reason: Sore Throat Last Admin: 01/17/17 05:19 Dose: 1 morro Bethanechol Chloride (Urecholine) 50 mg PO TID [facility] Last Admin: 01/21/17 16:23 Dose: 50 mg Carbidopa/Levodopa (Rytary Er 48.75 Mg-195 Mg Cap) 1 cap PO TID@0500,1300,2100 [facility] Last Admin: 01/21/17 12:44 Dose: 1 cap Magnesium Hydroxide (Milk Of Magnesia) 30 ml PO DAILY PRN PRN Reason: Constipation Last Admin: 12/25/16 09:10 Dose: 30 ml Midodrine (Proamatine) 10 mg PO TID [facility] Last Admin: 01/21/17 16:23 Dose: 10 mg Mupirocin (Bactroban Ointment) 1 applic TOP BID [facility] Last Admin: 01/21/17 16:22 Dose: 1 applic Nystatin (Nystop Topical Powder) 1 applic TOP TID [facility] Last Admin: 01/21/17 16:22 Dose: 1 applic - Labs Labs: 11/26/16 05:55 11/26/16 05:55 - Respiratory Exam Respiratory Exam: NORMAL BREATHING PATTERN - Cardiovascular Exam Cardiovascular Exam: REGULAR RHYTHM - GI/Abdominal Exam GI & Abdominal Exam: Normal Bowel Sounds Assessment and Plan - Assessment and Plan (Free Text) Assessment: MSA Parkinsons DX Shry Drager Low ext weakness?? Dx progression PT Rytary as per Neuro Disposition?? awaiting transfer to [place] Pt has medical decision making capacity but is financially vulnerable and would benefit from legal guardianship Court and Social service involved Pt is [place] S/P Bradycardia Hypotenson chronic A-fib Sepsis ? Autonomic dysfunction? IVF Midodrine ID Cardiology MRSA Nares Bactroban Recuurent c-diff d/c Vanco / Flagyl ?? Urine CS psuedomonas ? UA wnl Lethargy?? improved Baclofen d/c Infection resolved Reconsult Neuro R shoulder pain Dec ROM xrays subluxation Ultram PRN PT Gastroentritis? 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
[2017-01-22] MEDS: CARBIDOPA PO SCH ×3 (05:15→21:24)
[2017-01-22] MEDS: LEVODOPA PO SCH ×3 (05:15→21:24)
[2017-01-22] MEDS: Bethanechol 50 MG TAB PO SCH ×3 (10:00→17:15)
--- NOTE | 2017-01-22 18:22 | CP.PCM.PN ---
Subjective - Date & Time of Evaluation Date of Evaluation: 01/22/17 Time of Evaluation: 22:22 - Subjective Subjective: Sleeping Objective - Vital Signs/Intake and Output Vital Signs (last 24 hours): Temp Pulse Resp BP Pulse Ox 97.4 F L 66 17 130/80 98 01/22/17 15:55 01/22/17 15:55 01/22/17 15:55 01/22/17 15:55 01/22/17 15:55 - Medications Medications: Current Medications Acetaminophen (Tylenol 325mg Tab) 650 mg PO Q6 PRN PRN Reason: Pain, Mild (1-3) Last Admin: 01/19/17 08:31 Dose: 650 mg Amantadine HCl (Amantadine 100 Mg Cap) 100 mg PO BID [facility] Last Admin: 01/22/17 17:14 Dose: 100 mg Benzocaine/Menthol (Cepacol Sore Throat) 1 morro PO TID PRN PRN Reason: Sore Throat Last Admin: 01/17/17 05:19 Dose: 1 morro Bethanechol Chloride (Urecholine) 50 mg PO TID [facility] Last Admin: 01/22/17 17:15 Dose: 50 mg Carbidopa/Levodopa (Rytary Er 48.75 Mg-195 Mg Cap) 1 cap PO TID@0500,1300,2100 [facility] Last Admin: 01/22/17 13:48 Dose: 1 cap Magnesium Hydroxide (Milk Of Magnesia) 30 ml PO DAILY PRN PRN Reason: Constipation Last Admin: 12/25/16 09:10 Dose: 30 ml Midodrine (Proamatine) 10 mg PO TID [facility] Last Admin: 01/22/17 17:14 Dose: 10 mg Mupirocin (Bactroban Ointment) 1 applic TOP BID [facility] Last Admin: 01/22/17 17:15 Dose: 1 applic Nystatin (Nystop Topical Powder) 1 applic TOP TID [facility] Last Admin: 01/22/17 17:14 Dose: 1 applic - Labs Labs: 11/26/16 05:55 11/26/16 05:55 - Respiratory Exam Respiratory Exam: NORMAL BREATHING PATTERN - Cardiovascular Exam Cardiovascular Exam: REGULAR RHYTHM - GI/Abdominal Exam GI & Abdominal Exam: Normal Bowel Sounds Assessment and Plan - Assessment and Plan (Free Text) Assessment: Disposition?? awaiting transfer to [place] Pt has medical decision making capacity but is financially vulnerable and would benefit from legal guardianship Court and Social service involved Pt is [place] S/P Bradycardia Hypotenson chronic A-fib Sepsis ? Autonomic dysfunction? IVF Midodrine ID Cardiology MRSA Nares Bactroban Recuurent c-diff d/c Vanco / Flagyl ?? Urine CS psuedomonas ? UA wnl Lethargy?? improved Baclofen d/c Infection resolved Reconsult Neuro R shoulder pain Dec ROM xrays subluxation Ultram PRN PT Gastroentritis? resolved d/c flagyl LGI bleed Thrombocytopenia Thrombocytopenia chronic Decubitus ulcer buttocks DVT prophylaxis SCD (no Lovenox due to thrombocytopenia) S/P UTI Enterrococus S/P Urinary retention S/P UTI Proteus S/P Pnuemonia S/P Hypotension CHAPLAIN RESIDENT 2 to Dehydration Meds
[2017-01-23] MEDS: LEVODOPA PO SCH ×3 (05:36→20:52)
[2017-01-23] MEDS: CARBIDOPA PO SCH ×3 (05:36→20:52)
[2017-01-23] MEDS: Bethanechol 50 MG TAB PO SCH ×3 (08:11→17:04)
--- NOTE | 2017-01-23 16:14 | CP.PCM.PN ---
Subjective - Date & Time of Evaluation Date of Evaluation: 01/23/17 Time of Evaluation: 22:22 - Subjective Subjective: Doing well Objective - Vital Signs/Intake and Output Vital Signs (last 24 hours): Temp Pulse Resp BP Pulse Ox 98.3 F 62 17 120/75 98 01/23/17 15:42 01/23/17 15:42 01/23/17 15:42 01/23/17 15:42 01/23/17 15:42 - Medications Medications: Current Medications Acetaminophen (Tylenol 325mg Tab) 650 mg PO Q6 PRN PRN Reason: Pain, Mild (1-3) Last Admin: 01/19/17 08:31 Dose: 650 mg Amantadine HCl (Amantadine 100 Mg Cap) 100 mg PO BID [facility] Last Admin: 01/23/17 08:08 Dose: 100 mg Benzocaine/Menthol (Cepacol Sore Throat) 1 morro PO TID PRN PRN Reason: Sore Throat Last Admin: 01/17/17 05:19 Dose: 1 morro Bethanechol Chloride (Urecholine) 50 mg PO TID [facility] Last Admin: 01/23/17 12:41 Dose: 50 mg Carbidopa/Levodopa (Rytary Er 48.75 Mg-195 Mg Cap) 1 cap PO TID@0500,1300,2100 [facility] Last Admin: 01/23/17 12:40 Dose: 1 cap Magnesium Hydroxide (Milk Of Magnesia) 30 ml PO DAILY PRN PRN Reason: Constipation Last Admin: 12/25/16 09:10 Dose: 30 ml Midodrine (Proamatine) 10 mg PO TID [facility] Last Admin: 01/23/17 12:40 Dose: 10 mg Mupirocin (Bactroban Ointment) 1 applic TOP BID [facility] Last Admin: 01/23/17 08:09 Dose: 1 applic Nystatin (Nystop Topical Powder) 1 applic TOP TID [facility] Last Admin: 01/23/17 12:41 Dose: 1 applic - Labs Labs: 11/26/16 05:55 11/26/16 05:55 - Respiratory Exam Respiratory Exam: Clear to Ausculation Bilateral, Wheezes - Cardiovascular Exam Cardiovascular Exam: REGULAR RHYTHM - GI/Abdominal Exam GI & Abdominal Exam: Normal Bowel Sounds Assessment and Plan - Assessment and Plan (Free Text) Assessment: Disposition?? awaiting transfer to [place] Pt has medical decision making capacity but is financially vulnerable and would benefit from legal guardianship Court and Social service involved Pt is [place] WW[place] S/P Bradycardia Hypotenson chronic A-fib Sepsis ? Autonomic dysfunction? IVF Midodrine ID Cardiology MRSA Nares Bactroban Recuurent c-diff d/c Vanco / Flagyl ?? Urine CS psuedomonas ? UA wnl Lethargy?? improved Baclofen d/c Infection resolved Reconsult Neuro R shoulder pain Dec ROM xrays subluxation Ultram PRN PT Gastroentritis? 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
[2017-01-24] MEDS: LEVODOPA PO SCH ×3 (05:33→21:06)
[2017-01-24] MEDS: CARBIDOPA PO SCH ×3 (05:33→21:06)
[2017-01-24] MEDS: Bethanechol 50 MG TAB PO SCH ×3 (09:34→17:03)
--- NOTE | 2017-01-24 14:00 | CP.PCM.PN ---
Subjective - Date & Time of Evaluation Date of Evaluation: 01/24/17 Time of Evaluation: 22:22 - Subjective Subjective: Above noted Objective - Vital Signs/Intake and Output Vital Signs (last 24 hours): Temp Pulse Resp BP Pulse Ox 97.3 F L 65 20 143/80 65 L 01/24/17 09:00 01/24/17 09:00 01/24/17 09:00 01/24/17 09:00 01/24/17 09:00 - Medications Medications: Current Medications Acetaminophen (Tylenol 325mg Tab) 650 mg PO Q6 PRN PRN Reason: Pain, Mild (1-3) Last Admin: 01/23/17 23:45 Dose: 650 mg Amantadine HCl (Amantadine 100 Mg Cap) 100 mg PO BID [facility] Last Admin: 01/24/17 09:33 Dose: 100 mg Benzocaine/Menthol (Cepacol Sore Throat) 1 morro PO TID PRN PRN Reason: Sore Throat Last Admin: 01/17/17 05:19 Dose: 1 morro Bethanechol Chloride (Urecholine) 50 mg PO TID [facility] Last Admin: 01/24/17 13:13 Dose: 50 mg Carbidopa/Levodopa (Rytary Er 48.75 Mg-195 Mg Cap) 1 cap PO TID@0500,1300,2100 [facility] Last Admin: 01/24/17 13:13 Dose: 1 cap Magnesium Hydroxide (Milk Of Magnesia) 30 ml PO DAILY PRN PRN Reason: Constipation Last Admin: 12/25/16 09:10 Dose: 30 ml Midodrine (Proamatine) 10 mg PO TID [facility] Last Admin: 01/24/17 13:13 Dose: 10 mg Nystatin (Nystop Topical Powder) 1 applic TOP TID [facility] Last Admin: 01/24/17 13:15 Dose: 1 applic - Labs Labs: 11/26/16 05:55 11/26/16 05:55 - Respiratory Exam Respiratory Exam: NORMAL BREATHING PATTERN - Cardiovascular Exam Cardiovascular Exam: REGULAR RHYTHM - GI/Abdominal Exam GI & Abdominal Exam: Normal Bowel Sounds Assessment and Plan - Assessment and Plan (Free Text) Assessment: Disposition?? awaiting transfer to [place] Pt has medical decision making capacity but is financially vulnerable and would benefit from legal guardianship Court and Social service involved Pt is [place] S/P Bradycardia Hypotenson chronic A-fib Sepsis ? Autonomic dysfunction? IVF Midodrine ID Cardiology MRSA Nares Bactroban Recuurent c-diff d/c Vanco / Flagyl ?? Urine CS psuedomonas ? UA wnl Lethargy?? improved Baclofen d/c Infection resolved Reconsult Neuro R shoulder pain Dec ROM xrays subluxation Ultram PRN PT Gastroentritis? 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
[2017-01-25] MEDS: LEVODOPA PO SCH ×3 (05:14→20:53)
[2017-01-25] MEDS: CARBIDOPA PO SCH ×3 (05:14→20:53)
[2017-01-25] MEDS: Bethanechol 50 MG TAB PO SCH ×3 (09:55→16:35)
[2017-01-26] MEDS: CARBIDOPA PO SCH ×3 (05:30→20:25)
[2017-01-26] MEDS: LEVODOPA PO SCH ×3 (05:30→20:25)
[2017-01-26] MEDS: Bethanechol 50 MG TAB PO SCH ×3 (09:25→17:08)
[2017-01-27] MEDS: CARBIDOPA PO SCH ×3 (04:52→21:18)
[2017-01-27] MEDS: LEVODOPA PO SCH ×3 (04:52→21:18)
[2017-01-27] MEDS: Bethanechol 50 MG TAB PO SCH ×3 (09:59→16:35)
--- NOTE | 2017-01-27 20:52 | CP.PCM.PN ---
Subjective - Date & Time of Evaluation Date of Evaluation: 01/27/17 Time of Evaluation: 22:22 - Subjective Subjective: Above noted Objective - Vital Signs/Intake and Output Vital Signs (last 24 hours): Temp Pulse Resp BP Pulse Ox 97.8 F 66 19 138/90 97 01/27/17 16:00 01/27/17 16:00 01/27/17 16:00 01/27/17 16:00 01/27/17 16:00 - Medications Medications: Current Medications Acetaminophen (Tylenol 325mg Tab) 650 mg PO Q6 PRN PRN Reason: Pain, Mild (1-3) Last Admin: 01/26/17 09:28 Dose: 650 mg Amantadine HCl (Amantadine 100 Mg Cap) 100 mg PO BID [facility] Last Admin: 01/27/17 16:35 Dose: 100 mg Benzocaine/Menthol (Cepacol Sore Throat) 1 morro PO TID PRN PRN Reason: Sore Throat Last Admin: 01/17/17 05:19 Dose: 1 morro Bethanechol Chloride (Urecholine) 50 mg PO TID [facility] Last Admin: 01/27/17 16:35 Dose: 50 mg Carbidopa/Levodopa (Rytary Er 48.75 Mg-195 Mg Cap) 1 cap PO TID@0500,1300,2100 [facility] Last Admin: 01/27/17 14:03 Dose: 1 cap Magnesium Hydroxide (Milk Of Magnesia) 30 ml PO DAILY PRN PRN Reason: Constipation Last Admin: 12/25/16 09:10 Dose: 30 ml Midodrine (Proamatine) 10 mg PO TID [facility] Last Admin: 01/27/17 16:35 Dose: 10 mg Nystatin (Nystop Topical Powder) 1 applic TOP TID [facility] Last Admin: 01/27/17 16:39 Dose: 1 applic - Labs Labs: 11/26/16 05:55 11/26/16 05:55 - Respiratory Exam Respiratory Exam: NORMAL BREATHING PATTERN - Cardiovascular Exam Cardiovascular Exam: REGULAR RHYTHM - GI/Abdominal Exam GI & Abdominal Exam: Normal Bowel Sounds Assessment and Plan - Assessment and Plan (Free Text) Assessment: Disposition?? awaiting transfer to [place] Pt has medical decision making capacity but is financially vulnerable and would benefit from legal guardianship Court and Social service involved Pt is [place] WW[place] S/P Bradycardia Hypotenson chronic A-fib Sepsis ? Autonomic dysfunction? IVF Midodrine ID Cardiology MRSA Nares Bactroban Recuurent c-diff d/c Vanco / Flagyl ?? Urine CS psuedomonas ? UA wnl Lethargy?? improved Baclofen d/c Infection resolved Reconsult Neuro R shoulder pain Dec ROM xrays subluxation Ultram PRN PT Gastroentritis? 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
[2017-01-28] MEDS: LEVODOPA PO SCH ×3 (04:54→20:48)
[2017-01-28] MEDS: CARBIDOPA PO SCH ×3 (04:54→20:48)
[2017-01-28] MEDS: Bethanechol 50 MG TAB PO SCH ×3 (09:45→16:49)
--- NOTE | 2017-01-28 20:49 | CP.PCM.PN ---
Subjective - Date & Time of Evaluation Date of Evaluation: 01/28/17 Time of Evaluation: 22:22 - Subjective Subjective: Above noted Objective - Vital Signs/Intake and Output Vital Signs (last 24 hours): Temp Pulse Resp BP Pulse Ox 97.8 F 69 17 136/70 99 01/28/17 17:00 01/28/17 17:00 01/28/17 17:00 01/28/17 17:00 01/28/17 17:00 - Medications Medications: Current Medications Acetaminophen (Tylenol 325mg Tab) 650 mg PO Q6 PRN PRN Reason: Pain, Mild (1-3) Last Admin: 01/26/17 09:28 Dose: 650 mg Amantadine HCl (Amantadine 100 Mg Cap) 100 mg PO BID [facility] Last Admin: 01/28/17 16:50 Dose: 100 mg Benzocaine/Menthol (Cepacol Sore Throat) 1 morro PO TID PRN PRN Reason: Sore Throat Last Admin: 01/17/17 05:19 Dose: 1 morro Bethanechol Chloride (Urecholine) 50 mg PO TID [facility] Last Admin: 01/28/17 16:49 Dose: 50 mg Carbidopa/Levodopa (Rytary Er 48.75 Mg-195 Mg Cap) 1 cap PO TID@0500,1300,2100 [facility] Last Admin: 01/28/17 12:54 Dose: 1 cap Magnesium Hydroxide (Milk Of Magnesia) 30 ml PO DAILY PRN PRN Reason: Constipation Last Admin: 12/25/16 09:10 Dose: 30 ml Midodrine (Proamatine) 10 mg PO TID [facility] Last Admin: 01/28/17 16:50 Dose: 10 mg Nystatin (Nystop Topical Powder) 1 applic TOP TID [facility] Last Admin: 01/28/17 16:50 Dose: 1 applic - Labs Labs: 11/26/16 05:55 11/26/16 05:55 - Respiratory Exam Respiratory Exam: NORMAL BREATHING PATTERN - Cardiovascular Exam Cardiovascular Exam: REGULAR RHYTHM - GI/Abdominal Exam GI & Abdominal Exam: Normal Bowel Sounds Assessment and Plan - Assessment and Plan (Free Text) Assessment: Disposition?? awaiting transfer to [place] Pt has medical decision making capacity but is financially vulnerable and would benefit from legal guardianship Court and Social service involved Pt is [place] WWII S/P Bradycardia Hypotenson chronic A-fib Sepsis ? Autonomic dysfunction? IVF Midodrine ID Cardiology MRSA Nares Bactroban Recuurent c-diff d/c Vanco / Flagyl ?? Urine CS psuedomonas ? UA wnl Lethargy?? improved Baclofen d/c Infection resolved Reconsult Neuro R shoulder pain Dec ROM xrays subluxation Ultram PRN PT Gastroentritis? 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
[2017-01-29] MEDS: CARBIDOPA PO SCH ×3 (04:44→21:12)
[2017-01-29] MEDS: LEVODOPA PO SCH ×3 (04:44→21:12)
[2017-01-29] MEDS: Magnesium Hydroxide Susp 30 ml UD PO PRN (06:34)
[2017-01-29] MEDS: Bethanechol 50 MG TAB PO SCH ×3 (08:45→17:50)
--- NOTE | 2017-01-29 19:13 | CP.PCM.PN ---
Subjective - Date & Time of Evaluation Date of Evaluation: 01/29/17 Time of Evaluation: 22:22 - Subjective Subjective: Above noted Objective - Vital Signs/Intake and Output Vital Signs (last 24 hours): Temp Pulse Resp BP Pulse Ox 97.8 F 85 17 138/67 97 01/29/17 15:39 01/29/17 15:39 01/29/17 15:39 01/29/17 15:39 01/29/17 15:39 - Medications Medications: Current Medications Acetaminophen (Tylenol 325mg Tab) 650 mg PO Q6 PRN PRN Reason: Pain, Mild (1-3) Last Admin: 01/26/17 09:28 Dose: 650 mg Amantadine HCl (Amantadine 100 Mg Cap) [address] [facility] Last Admin: 01/29/17 17:50 Dose: 100 mg Benzocaine/Menthol (Cepacol Sore Throat) 1 morro PO TID PRN PRN Reason: Sore Throat Last Admin: 01/17/17 05:19 Dose: 1 morro Bethanechol Chloride (Urecholine) [address] [facility] Last Admin: 01/29/17 17:50 Dose: 50 mg Carbidopa/Levodopa (Rytary Er 48.75 Mg-195 Mg Cap) 1 cap PO TID@0500,1300,2100 [facility] Last Admin: 01/29/17 12:58 Dose: 1 cap Magnesium Hydroxide (Milk Of Magnesia) 30 ml PO DAILY PRN PRN Reason: Constipation Last Admin: 01/29/17 06:34 Dose: 30 ml Midodrine (Proamatine) [address] [facility] Last Admin: 01/29/17 17:50 Dose: 10 mg Nystatin (Nystop Topical Powder) [address] [facility] Last Admin: 01/29/17 17:50 Dose: 1 applic - Labs Labs: 11/26/16 05:55 11/26/16 05:55 - Respiratory Exam Respiratory Exam: NORMAL BREATHING PATTERN - Cardiovascular Exam Cardiovascular Exam: REGULAR RHYTHM - GI/Abdominal Exam GI & Abdominal Exam: Normal Bowel Sounds Assessment and Plan - Assessment and Plan (Free Text) Assessment: Disposition?? awaiting transfer to [place] Pt has medical decision making capacity but is financially vulnerable and would benefit from legal guardianship Court and Social service involved Pt is [place] WWII S/P Bradycardia Hypotenson chronic A-fib Sepsis ? Autonomic dysfunction? IVF Midodrine ID Cardiology MRSA Nares Bactroban Recuurent c-diff d/c Vanco / Flagyl ?? Urine CS psuedomonas ? UA wnl Lethargy?? improved Baclofen d/c Infection resolved Reconsult Neuro R shoulder pain Dec ROM xrays subluxation Ultram PRN PT Gastroentritis? resolved d/c flagyl LGI bleed Thrombocytopenia Thrombocytopenia chronic Decubitus ulcer buttocks DVT prophylaxis SCD (no Lovenox due to thrombocytopenia) S/P UTI Enterrococus S/P Urinary retention S/P UTI Proteus S/P Pnuemonia S/P Hypotension RN BSN 2 to Dehydration Meds
[2017-01-30] MEDS: CARBIDOPA PO SCH ×3 (05:58→21:03)
[2017-01-30] MEDS: LEVODOPA PO SCH ×3 (05:58→21:03)
[2017-01-30] MEDS: Bethanechol 50 MG TAB PO SCH ×3 (08:48→17:54)
--- NOTE | 2017-01-30 16:42 | CP.PCM.PN ---
Subjective - Date & Time of Evaluation Date of Evaluation: 01/30/17 Time of Evaluation: 22:22 - Subjective Subjective: Above noted Objective - Vital Signs/Intake and Output Vital Signs (last 24 hours): Temp Pulse Resp BP Pulse Ox 97.9 F 56 L 17 105/65 97 01/30/17 16:13 01/30/17 16:13 01/30/17 16:13 01/30/17 16:13 01/30/17 16:13 - Medications Medications: Current Medications Acetaminophen (Tylenol 325mg Tab) 650 mg PO Q6 PRN PRN Reason: Pain, Mild (1-3) Last Admin: 01/26/17 09:28 Dose: 650 mg Amantadine HCl (Amantadine 100 Mg Cap) 100 mg PO BID [facility] Last Admin: 01/30/17 08:48 Dose: 100 mg Benzocaine/Menthol (Cepacol Sore Throat) 1 morro PO TID PRN PRN Reason: Sore Throat Last Admin: 01/17/17 05:19 Dose: 1 morro Bethanechol Chloride (Urecholine) 50 mg PO TID [facility] Last Admin: 01/30/17 12:54 Dose: 50 mg Carbidopa/Levodopa (Rytary Er 48.75 Mg-195 Mg Cap) 1 cap PO TID@0500,1300,2100 [facility] Last Admin: 01/30/17 12:54 Dose: 1 cap Magnesium Hydroxide (Milk Of Magnesia) 30 ml PO DAILY PRN PRN Reason: Constipation Last Admin: 01/29/17 06:34 Dose: 30 ml Midodrine (Proamatine) 10 mg PO TID [facility] Last Admin: 01/30/17 12:54 Dose: 10 mg Nystatin (Nystop Topical Powder) 1 applic TOP TID [facility] Last Admin: 01/29/17 17:50 Dose: 1 applic - Labs Labs: 11/26/16 05:55 11/26/16 05:55 - Respiratory Exam Respiratory Exam: NORMAL BREATHING PATTERN - Cardiovascular Exam Cardiovascular Exam: REGULAR RHYTHM - GI/Abdominal Exam GI & Abdominal Exam: Normal Bowel Sounds Assessment and Plan - Assessment and Plan (Free Text) Assessment: Disposition?? awaiting transfer to [place] Pt has medical decision making capacity but is financially vulnerable and would benefit from legal guardianship Court and Social service involved Pt is [place] WWII S/P Bradycardia Hypotenson chronic A-fib Sepsis ? Autonomic dysfunction? IVF Midodrine ID Cardiology MRSA Nares Bactroban Recuurent c-diff d/c Vanco / Flagyl ?? Urine CS psuedomonas ? UA wnl Lethargy?? improved Baclofen d/c Infection resolved Reconsult Neuro R shoulder pain Dec ROM xrays subluxation Ultram PRN PT Gastroentritis? resolved d/c flagyl LGI bleed Thrombocytopenia Thrombocytopenia chronic Decubitus ulcer buttocks DVT prophylaxis SCD (no Lovenox due to thrombocytopenia) S/P UTI Enterrococus S/P Urinary retention S/P UTI Proteus S/P Pnuemonia S/P Hypotension SLOOP CAPTAIN 2 to Dehydration Meds
[2017-01-31] MEDS: CARBIDOPA PO SCH ×3 (05:34→21:01)
[2017-01-31] MEDS: LEVODOPA PO SCH ×3 (05:34→21:01)
[2017-01-31] MEDS: Bethanechol 50 MG TAB PO SCH ×3 (09:26→16:31)
--- NOTE | 2017-01-31 13:07 | CP.PCM.PN ---
Subjective - Date & Time of Evaluation Date of Evaluation: 01/31/17 Time of Evaluation: 22:22 - Subjective Subjective: Above noted Objective - Vital Signs/Intake and Output Vital Signs (last 24 hours): Temp Pulse Resp BP Pulse Ox 97.3 F L 76 20 127/74 95 01/31/17 08:30 01/31/17 08:30 01/31/17 08:30 01/31/17 08:30 01/31/17 08:30 - Medications Medications: Current Medications Acetaminophen (Tylenol 325mg Tab) 650 mg PO Q6 PRN PRN Reason: Pain, Mild (1-3) Last Admin: 01/26/17 09:28 Dose: 650 mg Amantadine HCl (Amantadine 100 Mg Cap) 100 mg PO BID [facility] Last Admin: 01/31/17 09:26 Dose: 100 mg Benzocaine/Menthol (Cepacol Sore Throat) 1 morro PO TID PRN PRN Reason: Sore Throat Last Admin: 01/17/17 05:19 Dose: 1 morro Bethanechol Chloride (Urecholine) 50 mg PO TID [facility] Last Admin: 01/31/17 12:23 Dose: 50 mg Carbidopa/Levodopa (Rytary Er 48.75 Mg-195 Mg Cap) 1 cap PO TID@0500,1300,2100 [facility] Last Admin: 01/31/17 12:23 Dose: 1 cap Magnesium Hydroxide (Milk Of Magnesia) 30 ml PO DAILY PRN PRN Reason: Constipation Last Admin: 01/29/17 06:34 Dose: 30 ml Midodrine (Proamatine) 10 mg PO TID [facility] Last Admin: 01/31/17 12:23 Dose: 10 mg Nystatin (Nystop Topical Powder) 1 applic TOP TID [facility] Last Admin: 01/31/17 12:23 Dose: 1 applic - Labs Labs: 11/26/16 05:55 11/26/16 05:55 - Respiratory Exam Respiratory Exam: NORMAL BREATHING PATTERN - Cardiovascular Exam Cardiovascular Exam: REGULAR RHYTHM - GI/Abdominal Exam GI & Abdominal Exam: Normal Bowel Sounds Assessment and Plan - Assessment and Plan (Free Text) Assessment: Disposition?? awaiting transfer to [place] Pt has medical decision making capacity but is financially vulnerable and would benefit from legal guardianship Court and Social service involved Pt is [place] WWII S/P Bradycardia Hypotenson chronic A-fib Sepsis ? Autonomic dysfunction? IVF Midodrine ID Cardiology MRSA Nares Bactroban Recuurent c-diff d/c Vanco / Flagyl ?? Urine CS psuedomonas ? UA wnl Lethargy?? improved Baclofen d/c Infection resolved Reconsult Neuro R shoulder pain Dec ROM xrays subluxation Ultram PRN PT Gastroentritis? 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
[2017-01-31] MEDS: Magnesium Hydroxide Susp 30 ml UD PO PRN (16:31)
[2017-02-01] MEDS: LEVODOPA PO SCH ×3 (05:43→21:28)
[2017-02-01] MEDS: Magnesium Hydroxide Susp 30 ml UD PO PRN (05:43)
[2017-02-01] MEDS: CARBIDOPA PO SCH ×3 (05:43→21:28)
[2017-02-01] MEDS: Bethanechol 50 MG TAB PO SCH ×3 (09:52→16:19)
[2017-02-02] MEDS: LEVODOPA PO SCH ×3 (05:44→21:04)
[2017-02-02] MEDS: CARBIDOPA PO SCH ×3 (05:44→21:04)
[2017-02-02] MEDS: Bethanechol 50 MG TAB PO SCH ×3 (09:08→16:36)
--- NOTE | 2017-02-02 22:42 | CP.PCM.PN ---
Subjective - Date & Time of Evaluation Date of Evaluation: 02/02/17 Time of Evaluation: 22:22 - Subjective Subjective: Above noted Objective - Vital Signs/Intake and Output Vital Signs (last 24 hours): Temp Pulse Resp BP Pulse Ox 98.1 F 72 18 134/72 96 02/02/17 16:39 02/02/17 16:39 02/02/17 16:39 02/02/17 16:39 02/02/17 16:39 - Medications Medications: Current Medications Acetaminophen (Tylenol 325mg Tab) 650 mg PO Q6 PRN PRN Reason: Pain, Mild (1-3) Last Admin: 01/26/17 09:28 Dose: 650 mg Amantadine HCl (Amantadine 100 Mg Cap) 100 mg PO BID [facility] Last Admin: 02/02/17 16:36 Dose: 100 mg Benzocaine/Menthol (Cepacol Sore Throat) 1 morro PO TID PRN PRN Reason: Sore Throat Last Admin: 01/17/17 05:19 Dose: 1 morro Bethanechol Chloride (Urecholine) 50 mg PO TID [facility] Last Admin: 02/02/17 16:36 Dose: 50 mg Carbidopa/Levodopa (Rytary Er 48.75 Mg-195 Mg Cap) 1 cap PO TID@0500,1300,2100 [facility] Last Admin: 02/02/17 21:04 Dose: 1 cap Magnesium Hydroxide (Milk Of Magnesia) 30 ml PO DAILY PRN PRN Reason: Constipation Last Admin: 02/01/17 05:43 Dose: 30 ml Midodrine (Proamatine) 10 mg PO TID [facility] Last Admin: 02/02/17 16:36 Dose: 10 mg Nystatin (Nystop Topical Powder) 1 applic TOP TID [facility] Last Admin: 02/02/17 16:37 Dose: 1 applic - Labs Labs: 11/26/16 05:55 11/26/16 05:55 - Respiratory Exam Respiratory Exam: NORMAL BREATHING PATTERN - Cardiovascular Exam Cardiovascular Exam: REGULAR RHYTHM - GI/Abdominal Exam GI & Abdominal Exam: Normal Bowel Sounds Assessment and Plan - Assessment and Plan (Free Text) Assessment: Disposition?? awaiting transfer to [place] Pt has medical decision making capacity but is financially vulnerable and would benefit from legal guardianship Court and Social service involved Pt is [place] WWII S/P Bradycardia Hypotenson chronic A-fib Sepsis ? Autonomic dysfunction? IVF Midodrine MRSA Nares Bactroban Recuurent c-diff d/c Vanco / Flagyl ?? Urine CS psuedomonas ? UA wnl Lethargy?? improved Baclofen d/c Infection resolved Reconsult Neuro R shoulder pain Dec ROM xrays subluxation Ultram PRN PT Gastroentritis? resolved d/c flagyl LGI bleed Thrombocytopenia Thrombocytopenia chronic Decubitus ulcer buttocks DVT prophylaxis SCD (no Lovenox due to thrombocytopenia) S/P UTI Enterrococus S/P Urinary retention S/P UTI Proteus S/P Pnuemonia S/P Hypotension ATTENDING PSYCHIATRIST 2 to Dehydration Meds
[2017-02-03] MEDS: LEVODOPA PO SCH ×3 (06:19→21:19)
[2017-02-03] MEDS: CARBIDOPA PO SCH ×3 (06:19→21:19)
[2017-02-03] MEDS: Bethanechol 50 MG TAB PO SCH ×3 (08:12→16:12)
--- NOTE | 2017-02-03 21:19 | CP.PCM.PN ---
Subjective - Date & Time of Evaluation Date of Evaluation: 02/03/17 Time of Evaluation: 22:22 - Subjective Subjective: No change in status Objective - Vital Signs/Intake and Output Vital Signs (last 24 hours): Temp Pulse Resp BP Pulse Ox 97.6 F 62 17 138/72 99 02/03/17 15:53 02/03/17 15:53 02/03/17 15:53 02/03/17 15:53 02/03/17 15:53 - Medications Medications: Current Medications Acetaminophen (Tylenol 325mg Tab) 650 mg PO Q6 PRN PRN Reason: Pain, Mild (1-3) Last Admin: 01/26/17 09:28 Dose: 650 mg Amantadine HCl (Amantadine 100 Mg Cap) 100 mg PO BID [facility] Last Admin: 02/03/17 16:12 Dose: 100 mg Benzocaine/Menthol (Cepacol Sore Throat) 1 morro PO TID PRN PRN Reason: Sore Throat Last Admin: 01/17/17 05:19 Dose: 1 morro Bethanechol Chloride (Urecholine) 50 mg PO TID [facility] Last Admin: 02/03/17 16:12 Dose: 50 mg Carbidopa/Levodopa (Rytary Er 48.75 Mg-195 Mg Cap) 1 cap PO TID@0500,1300,2100 [facility] Last Admin: 02/03/17 13:29 Dose: 1 cap Magnesium Hydroxide (Milk Of Magnesia) 30 ml PO DAILY PRN PRN Reason: Constipation Last Admin: 02/01/17 05:43 Dose: 30 ml Midodrine (Proamatine) 10 mg PO TID [facility] Last Admin: 02/03/17 16:11 Dose: 10 mg Nystatin (Nystop Topical Powder) 1 applic TOP TID [facility] Last Admin: 02/03/17 16:11 Dose: 1 applic - Labs Labs: 11/26/16 05:55 11/26/16 05:55 - Respiratory Exam Respiratory Exam: NORMAL BREATHING PATTERN - Cardiovascular Exam Cardiovascular Exam: REGULAR RHYTHM - GI/Abdominal Exam GI & Abdominal Exam: Normal Bowel Sounds Assessment and Plan - Assessment and Plan (Free Text) Assessment: Disposition?? awaiting transfer to [place] Pt has medical decision making capacity but is financially vulnerable and would benefit from legal guardianship Court and Social service involved Pt is [place] S/P Bradycardia Hypotenson chronic A-fib Sepsis ? Autonomic dysfunction? IVF Midodrine MRSA Nares Bactroban Recuurent c-diff d/c Vanco / Flagyl ?? Urine CS psuedomonas ? UA wnl Lethargy?? improved Baclofen d/c Infection resolved Reconsult Neuro R shoulder pain Dec ROM xrays subluxation Ultram PRN PT Gastroentritis? 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
[2017-02-04] MEDS: CARBIDOPA PO SCH ×3 (05:30→21:59)
[2017-02-04] MEDS: LEVODOPA PO SCH ×3 (05:30→21:59)
[2017-02-04] MEDS: Bethanechol 50 MG TAB PO SCH ×3 (09:26→17:07)
--- NOTE | 2017-02-04 20:39 | CP.PCM.PN ---
Subjective - Date & Time of Evaluation Date of Evaluation: 02/04/17 Time of Evaluation: 22:22 - Subjective Subjective: Sleeping Objective - Vital Signs/Intake and Output Vital Signs (last 24 hours): Temp Pulse Resp BP Pulse Ox 97.8 F 64 17 119/71 97 02/04/17 16:05 02/04/17 16:05 02/04/17 16:05 02/04/17 16:05 02/04/17 16:05 - Medications Medications: Current Medications Acetaminophen (Tylenol 325mg Tab) 650 mg PO Q6 PRN PRN Reason: Pain, Mild (1-3) Last Admin: 01/26/17 09:28 Dose: 650 mg Amantadine HCl (Amantadine 100 Mg Cap) 100 mg PO BID [facility] Last Admin: 02/04/17 17:07 Dose: 100 mg Benzocaine/Menthol (Cepacol Sore Throat) 1 morro PO TID PRN PRN Reason: Sore Throat Last Admin: 01/17/17 05:19 Dose: 1 morro Bethanechol Chloride (Urecholine) 50 mg PO TID [facility] Last Admin: 02/04/17 17:07 Dose: 50 mg Carbidopa/Levodopa (Rytary Er 48.75 Mg-195 Mg Cap) 1 cap PO TID@0500,1300,2100 [facility] Last Admin: 02/04/17 12:55 Dose: 1 cap Magnesium Hydroxide (Milk Of Magnesia) 30 ml PO DAILY PRN PRN Reason: Constipation Last Admin: 02/01/17 05:43 Dose: 30 ml Midodrine (Proamatine) 10 mg PO TID [facility] Last Admin: 02/04/17 17:07 Dose: 10 mg - Labs Labs: 11/26/16 05:55 11/26/16 05:55 - Respiratory Exam Respiratory Exam: NORMAL BREATHING PATTERN - Cardiovascular Exam Cardiovascular Exam: REGULAR RHYTHM - GI/Abdominal Exam GI & Abdominal Exam: Normal Bowel Sounds Assessment and Plan - Assessment and Plan (Free Text) Assessment: Disposition?? awaiting transfer to [place] Pt has medical decision making capacity but is financially vulnerable and would benefit from legal guardianship Court and Social service involved Pt is [place] S/P Bradycardia Hypotenson chronic A-fib Sepsis ? Autonomic dysfunction? IVF Midodrine MRSA Nares Bactroban Recuurent c-diff d/c Vanco / Flagyl ?? Urine CS psuedomonas ? UA wnl Lethargy?? improved Baclofen d/c Infection resolved Reconsult Neuro R shoulder pain Dec ROM xrays subluxation Ultram PRN PT Gastroentritis? 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
[2017-02-05] MEDS: Bethanechol 50 MG TAB PO SCH ×3 (09:01→16:11)
[2017-02-05] MEDS: CARBIDOPA PO SCH ×3 (09:02→20:11)
[2017-02-05] MEDS: LEVODOPA PO SCH ×3 (09:02→20:11)
--- NOTE | 2017-02-05 18:46 | CP.PCM.PN ---
Subjective - Date & Time of Evaluation Date of Evaluation: 02/05/17 Time of Evaluation: 22:22 - Subjective Subjective: No change Objective - Vital Signs/Intake and Output Vital Signs (last 24 hours): Temp Pulse Resp BP Pulse Ox 97.8 F 61 20 105/65 95 02/05/17 16:27 02/05/17 16:27 02/05/17 16:27 02/05/17 16:27 02/05/17 16:27 - Medications Medications: Current Medications Acetaminophen (Tylenol 325mg Tab) 650 mg PO Q6 PRN PRN Reason: Pain, Mild (1-3) Last Admin: 01/26/17 09:28 Dose: 650 mg Amantadine HCl (Amantadine 100 Mg Cap) 100 mg PO BID [facility] Last Admin: 02/05/17 16:12 Dose: 100 mg Benzocaine/Menthol (Cepacol Sore Throat) 1 morro PO TID PRN PRN Reason: Sore Throat Last Admin: 01/17/17 05:19 Dose: 1 morro Bethanechol Chloride (Urecholine) 50 mg PO TID [facility] Last Admin: 02/05/17 16:11 Dose: 50 mg Carbidopa/Levodopa (Rytary Er 48.75 Mg-195 Mg Cap) 1 cap PO TID@0500,1300,2100 [facility] Last Admin: 02/05/17 12:21 Dose: 1 cap Magnesium Hydroxide (Milk Of Magnesia) 30 ml PO DAILY PRN PRN Reason: Constipation Last Admin: 02/01/17 05:43 Dose: 30 ml Midodrine (Proamatine) 10 mg PO TID [facility] Last Admin: 02/05/17 16:12 Dose: 10 mg - Labs Labs: 11/26/16 05:55 11/26/16 05:55 - Respiratory Exam Respiratory Exam: NORMAL BREATHING PATTERN - Cardiovascular Exam Cardiovascular Exam: REGULAR RHYTHM - GI/Abdominal Exam GI & Abdominal Exam: Normal Bowel Sounds Assessment and Plan - Assessment and Plan (Free Text) Assessment: Disposition?? awaiting transfer to [place] Pt has medical decision making capacity but is financially vulnerable and would benefit from legal guardianship Court and Social service involved Pt is [place] S/P Bradycardia Hypotenson chronic A-fib Sepsis ? Autonomic dysfunction? IVF Midodrine MRSA Nares Bactroban Recuurent c-diff d/c Vanco / Flagyl ?? Urine CS psuedomonas ? UA wnl Lethargy?? improved Baclofen d/c Infection resolved Reconsult Neuro R shoulder pain Dec ROM xrays subluxation Ultram PRN PT Gastroentritis? 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
[2017-02-06] MEDS: LEVODOPA PO SCH ×3 (04:51→20:57)
[2017-02-06] MEDS: CARBIDOPA PO SCH ×3 (04:51→20:57)
[2017-02-06] MEDS: Bethanechol 50 MG TAB PO SCH ×3 (09:52→17:35)
--- NOTE | 2017-02-06 20:55 | CP.PCM.PN ---
Subjective - Date & Time of Evaluation Date of Evaluation: 02/06/17 Time of Evaluation: 22:22 - Subjective Subjective: Above noted Objective - Vital Signs/Intake and Output Vital Signs (last 24 hours): Temp Pulse Resp BP Pulse Ox 97.8 F 80 20 142/54 L 99 02/06/17 16:19 02/06/17 16:19 02/06/17 16:19 02/06/17 16:19 02/06/17 16:19 - Medications Medications: Current Medications Acetaminophen (Tylenol 325mg Tab) 650 mg PO Q6 PRN PRN Reason: Pain, Mild (1-3) Last Admin: 01/26/17 09:28 Dose: 650 mg Amantadine HCl (Amantadine 100 Mg Cap) 100 mg PO BID [facility] Last Admin: 02/06/17 17:34 Dose: 100 mg Benzocaine/Menthol (Cepacol Sore Throat) 1 morro PO TID PRN PRN Reason: Sore Throat Last Admin: 01/17/17 05:19 Dose: 1 morro Bethanechol Chloride (Urecholine) 50 mg PO TID [facility] Last Admin: 02/06/17 17:35 Dose: 50 mg Carbidopa/Levodopa (Rytary Er 48.75 Mg-195 Mg Cap) 1 cap PO TID@0500,1300,2100 [facility] Last Admin: 02/06/17 13:00 Dose: 1 cap Magnesium Hydroxide (Milk Of Magnesia) 30 ml PO DAILY PRN PRN Reason: Constipation Last Admin: 02/01/17 05:43 Dose: 30 ml Midodrine (Proamatine) 10 mg PO TID [facility] Last Admin: 02/06/17 17:35 Dose: 10 mg - Labs Labs: 11/26/16 05:55 11/26/16 05:55 - Respiratory Exam Respiratory Exam: NORMAL BREATHING PATTERN - Cardiovascular Exam Cardiovascular Exam: REGULAR RHYTHM - GI/Abdominal Exam GI & Abdominal Exam: Normal Bowel Sounds Assessment and Plan - Assessment and Plan (Free Text) Assessment: Disposition?? awaiting transfer to [place] Pt has medical decision making capacity but is financially vulnerable and would benefit from legal guardianship Court and Social service involved Pt is [place] S/P Bradycardia Hypotenson chronic A-fib Sepsis ? Autonomic dysfunction? IVF Midodrine MRSA Nares Bactroban Recuurent c-diff d/c Vanco / Flagyl ?? Urine CS psuedomonas ? UA wnl Lethargy?? improved Baclofen d/c Infection resolved Reconsult Neuro R shoulder pain Dec ROM xrays subluxation Ultram PRN PT Gastroentritis? 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
[2017-02-07] MEDS: LEVODOPA PO SCH ×3 (05:28→22:00)
[2017-02-07] MEDS: CARBIDOPA PO SCH ×3 (05:28→22:00)
[2017-02-07] MEDS: Bethanechol 50 MG TAB PO SCH ×3 (08:32→15:59)
[2017-02-07 11:29] LABS: ABG ALLEN TEST YES; ARTERIAL BLOOD GAS HCO3 23.2 mmol/L (21-28); ARTERIAL BLOOD GAS O2 SAT 100.4 % (95-98); ARTERIAL BLOOD GAS PCO2 33 mm/Hg (35-45); ARTERIAL BLOOD GAS PH 7.42 (7.35-7.45); ARTERIAL BLOOD GAS PO2 437 mm/Hg (80-100); ARTERIAL BLOOD GAS TCO2 22.4 mmol/L (22-28)
[2017-02-07 12:05] LABS: BASO # 0.1 K/uL (0.0-0.2); BASO % 0.9 % (0.0-2.0); EOS # 0.3 K/uL (0.0-0.7); EOS % 5.5 % (0.0-4.0); HEMOGLOBIN 14.1 g/dL (12.0-18.0); LYMPH # 1.6 K/uL (1.0-4.3); MEAN CELL VOLUME 94.9 fl (80.0-94.0); MEAN CORPUSCULAR HEMOGLOBIN 31.2 pg (27.0-31.0); MEAN CORPUSCULAR HGB CONC 32.8 g/dL (33.0-37.0); MEAN PLATELET VOLUME 9.9 fl (7.2-11.7); MONO # 0.5 K/uL (0.0-0.8); NEUT # 3.5 K/uL (1.8-7.0); NEUT % 58.6 % (50.0-75.0); RBC 4.52 Mil/uL (4.40-5.90); RED CELL DISTRIBUTION WIDTH 13.9 % (11.5-14.5)
[2017-02-07 12:13] LABS: ALB/GLOB RATIO 1.4 (1.0-2.1); ALBUMIN 4.4 g/dL (3.5-5.0); ALT/SGPT 23 U/L (21-72); AST/SGOT 27 U/L (17-59); BLOOD UREA NITROGEN 23 mg/dl (9-20); CALCIUM 9.5 mg/dL (8.4-10.2); GFR AFRICAN-AMERICAN > 60; GFR NON-AFRICAN AMERICAN > 60
[2017-02-07 12:26] LABS: INR 1.1 (0.9-1.2); PARTIAL THROMBOPLASTIN TIME 34.2 Seconds (25.6-37.1); PROTHROMBIN TIME 12.6 Seconds (9.8-13.1)
[2017-02-07] MEDS: DOPamine 400mg/250ml D5W 400 MG/250 ML BAG IV ONE (12:48)
--- NOTE | 2017-02-07 14:14 | PCM.RRTMUL ---
HOUSE SUPERVISOR Nurse Assessment - Situation HOUSE SUPERVISOR Responder Arrival Time:: 11:10 Location:: [facility] Room Number:: 662 HOUSE SUPERVISOR Reason for Call: Looks Sicker HOUSE SUPERVISOR Called By: RN - IV IV Inserted during HOUSE SUPERVISOR?: Yes IV Fluids Initiated During HOUSE SUPERVISOR?: yes New IV Insertion Tolerance:: Excellent - Respiratory Oxygen Delivery Method:: Mask Received Nebulizer Treatments:: No Was the Patient Ventilated with Bag/Mask 100% O2?: No Secretions Suctioned?: Yes Was the Patient Intubated?: No Was the Patient Placed on a Ventilator?: No - Medication Medications Administered During HOUSE SUPERVISOR :: NSS - Diagnostic Test Ordered EKG:: Yes Chest X-Ray:: No CT Scan:: No - Stat Labs Ordered HOUSE SUPERVISOR Stat Labs Ordered:: CBC, BMP, PT/PTT, TROPONIN, LACTIC ACID, BLOOD C&S X2, ABG CPR started during HOUSE SUPERVISOR?: No - Vital Signs Blood Pressure:: 82/52 Pulse Rate:: 36 Respiratory Rate:: 18 Temperature:: 97.4 F Oxygen Saturation:: 85 - Oni Coma Scale Coma Scale Eye Opening:: Spontaneous Coma Scale Motor:: Obeys Commands Movement Coma Scale Verbal:: Oriented Coma Scale Total:: 15 - Sepsis Screen Part 1 Sepsis Screen Part 1: Hypotensive - Time HOUSE SUPERVISOR Ended Time HOUSE SUPERVISOR Ended:: 11:50 - Vital Signs at end of HOUSE SUPERVISOR Blood Pressure:: 92/56 Pulse Rate:: 43 Respiratory Rate:: 18 O2 Sat by Pulse Oximetry:: 98 - Recommendations 5) HOUSE SUPERVISOR Level of Care Recommendations: Transfer to ICU 6) Notifications: Attending Physician I.Reason for HOUSE SUPERVISOR - A) Acute Change in Patient: Subjective: HOUSE SUPERVISOR called at 11:10 am. 86 yo M with hx Parkinson's disease had HOUSE SUPERVISOR called due to bradycardia, hypoxia, acute distress. On arrival, observed vital signs BP 88/46, HR 45, O2 sat 84, T 97.4 Pt appeared to be in distress, diaphoretic, was coughing up copious amounts of phlegm, looked uncomfortable, no changes in mentation. During the HOUSE SUPERVISOR: Pt was placed on non-rebreather and given fluid bolus. O2 sat increased to 96. EKG was done, showed atrial fibrillation with slow ventricular response. ABG + shock panel done. Lactate 2.4. 2 more large bore IV lines placed. Pt responded to fluid challenge, BP 75/38, HR 57, O2 sat 94. Pt was then transferred to ICU. Upon arrival to ICU, BP 115/67, HR 53, patient appeared more comfortable, mentation still not affected. A: This is an 86 yo M with hx Parkinson's disease who had HOUSE SUPERVISOR called due to bradycardia and hypoxia. R/o sepsis -Urinalysis/urine culture -Blood culture -CXR -CBC, CMP, PT/INR/PTT, TSH, D-dimer -Asses/monitor for need for transcutaneous pacing
--- NOTE | 2017-02-07 15:00 | CP.CCUPN ---
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 Neuro status and mentation not affected, given fluid challenge with mild improvement in BP form 60 systolic to 80s, HR evaluation via EKG shows possible AV dissociation with atrial rate approx. 62, and VR at 50. Patient transferred to ICU for further mgmt. and stabilization. He is alet and conversant, no disorientation noted. Resting tremor remains, no focal weakness noted. Comprehensive exam reveals mild RLQ tenderness on abdominal palpation, but no rebound, rigidity or radiation of pain noted. Available EMR chart reviewed, last set of bloodwork noted from and repeat today. CBC shows minimal variation from 2 months ago with respect to WBC, platelets, but Hgb has risen from 13 to 14. Coag studies are normal and acceptable. ABG shows no A-a gradient on 100% oxygen with PO2 at 437. Locate is mildly elevated at 2.4. There is no peripheral cyanosis evident nor any other signs of hypoperfusion. Chemistry shows minimal elevation in BUN/ Cr to 23/1.1 from 19/0.9. Initial Trop is negative, LFTs are normal. TSH is elevated at 5.0 with last level in September 2016 was 1.78. ROS: as above, no other pertinent negs or positives on 10+ system review. Allergies; Penicillin. Current Meds: Tylenol, Amantadine, Urecholine, RytaryER, MOM, Midodrine Other PMSFH: All recent nursing and physician documentation reviewed and no new information noted relevant to current problems. MAJOR PROBLEMS: 1. Hypotension, diaphoresis and bradycardia may all be manifest by autonomic dysfunction symptoms. There are no clinically evident signs of Sepsis present, no obvious source seen. Will panculture, and start empiric abx coverage in the interim. Procalcitonin level ordered as well. CTAP ordered to assess for any intra-abdominal pathology , will look into specifically RUQ and RLQ areas. 2. Significantly elevated d-dimer level noted with unclear etiology. CXR compared to November 2016 study essentially unchanged. AXR shows no obvious free air or specific bowel pattern. Given this level of elevation, will obtain Venous Doppler US of the legs and CT Chest Angio study to look for DVt and PTE, respectively. However, given past h/o of GI bleed 3 months ago, there may be relative contraindications to AC, and if the likelihood of PTE is evident, he will need an IVC filter. ECHO ordered to assess for RA / RV enlargement, and to r/o any LV dysfx. Given AV dissociation seen on EKG, he may have AV kurtis disease as well that may require consideration for PPM placement. He has demonstrated periods of bradycardia in the past. He is also on medication that may cause bradycardia: Midodrine. This should be held or discontinued now. 3. Cardiology re-eval to assess for other structural reasons for bradycardia including any need for PPM . 4. Dopamine started for chronotropic effect. 5. May need PICC line. 6. Will order Heparin SQ now for DVT prophylaxis. 7. Check repeat TFTs with free T4 and T3 studies, or Endocrine eval. 8. Is need for Urecholine from use of Midodrine causing urinary retention? re- assess as patient is off Midrodrine. CCU Objective - Vital Signs / Intake & Output Vital Signs (Last 4 hours): Vital Signs Temp Pulse Resp BP 02/07/17 14:14 97.4 F L 36 L 18 82/52 L 02/07/17 11:55 97.4 F L 36 L 18 82/52 L - Medications Active Medications: Active Medications Generic Name Dose Route Start Last Admin Trade Name Freq PRN Reason Stop Dose Admin Acetaminophen 650 mg 02/09/16 17:50 01/26/17 09:28 Tylenol 325mg Tab PO 650 mg Q6 PRN Administration Pain, Mild (1-3) Amantadine HCl 100 mg 01/21/17 09:00 02/07/17 08:32 Amantadine 100 Mg Cap PO 100 mg BID TU Administration Benzocaine/Menthol 1 morro 01/08/17 20:41 01/17/17 05:19 Cepacol Sore Throat PO 1 morro TID PRN Administration Sore Throat Bethanechol Chloride 50 mg 01/21/17 09:00 02/07/17 08:32 Urecholine PO 50 mg TID TU Administration Carbidopa/Levodopa 1 cap 05/01/16 13:00 02/07/17 05:28 Rytary Er 48.75 Mg-195 Mg Cap PO 1 cap TID@0500,1300,2100 TU Administration Sodium Chloride 1,000 mls @ 100 mls/hr 02/07/17 11:15 02/07/17 12:49 Sodium Chloride 0.9% IV 02/08/17 11:12 100 mls/hr .Q10H TU Administration Lactated Ringer's 1,000 mls @ 100 mls/hr 02/07/17 14:30 Lactated Ringer's IV .Q10H TU Magnesium Hydroxide 30 ml 02/09/16 10:58 02/01/17 05:43 Milk Of Magnesia PO 30 ml DAILY PRN Administration Constipation Midodrine 10 mg 12/10/16 13:00 02/07/17 08:31 Proamatine PO 10 mg TID TU Administration - Patient Studies Lab Studies: Lab Studies 02/07/17 02/07/17 02/07/17 Range/Units 11:50 11:50 11:50 WBC (4.8-10.8) K/uL RBC (4.40-5.90) Mil/uL Hgb (12.0-18.0) g/dL Hct (35.0-51.0) % MCV (80.0-94.0) fl MCH (27.0-31.0) pg MCHC (33.0-37.0) g/dL RDW (11.5-14.5) % Plt Count (130-400) K/uL MPV (7.2-11.7) fl Neut % (Auto) (50.0-75.0) % Lymph % (Auto) (20.0-40.0) % Chester % (Auto) (0.0-10.0) % Eos % (Auto) (0.0-4.0) % Baso % (Auto) (0.0-2.0) % Neut # (1.8-7.0) K/uL Lymph # (1.0-4.3) K/uL Chester # (0.0-0.8) K/uL Eos # (0.0-0.7) K/uL Baso # (0.0-0.2) K/uL PT 12.6 (9.8-13.1) Seconds INR 1.1 (0.9-1.2) APTT 34.2 (25.6-37.1) Seconds D-Dimer, Quantitative 1264 H (0-230) ng/mlDDU pCO2 (35-45) mm/Hg pO2 (80-100) mm/Hg HCO3 (21-28) mmol/L ABG pH (7.35-7.45) ABG Total CO2 (22-28) mmol/L ABG O2 Saturation (95-98) % ABG Base Excess (-2.0-3.0) mmol/L Jorge Test ABG Potassium (3.6-5.2) mmol/L A-a O2 Difference mm/Hg Sodium 145 (132-148) mmol/L Chloride 107 (98-107) mmol/L Glucose (75-110) mg/dL Lactate (0.7-2.1) mmol/L Vent Mode FiO2 % Potassium 3.7 (3.6-5.0) MMOL/L Carbon Dioxide 22 (22-30) mmol/L Anion Gap 19 (10-20) BUN 23 H (9-20) mg/dl Creatinine 1.1 (0.8-1.5) mg/dL Est GFR ( Amer) > 60 Est GFR (Non-Af Amer) > 60 POC Glucose (mg/dL) (65-110) mg/dL Random Glucose 148 H (75-110) mg/dL Lactic Acid 2.7 H (0.7-2.1) MMOL/L Calcium 9.5 (8.4-10.2) mg/dL Total Bilirubin 1.1 (0.2-1.3) mg/dl AST 27 (17-59) U/L ALT 23 (21-72) U/L Alkaline Phosphatase 84 (38-126) U/L Troponin I 0.0120 (0.00-0.120) ng/mL Total Protein 7.4 (6.3-8.2) G/DL Albumin 4.4 (3.5-5.0) g/dL Globulin 3.1 (2.2-3.9) gm/dL Albumin/Globulin Ratio 1.4 (1.0-2.1) TSH 3rd Generation 5.05 H (0.46-4.68) mIU/ML Arterial Blood Potassium (3.6-5.2) mmol/L 02/07/17 02/07/17 02/07/17 Range/Units 11:50 11:19 11:09 WBC 6.0 (4.8-10.8) K/uL RBC 4.52 (4.40-5.90) Mil/uL Hgb 14.1 (12.0-18.0) g/dL Hct 42.9 (35.0-51.0) % MCV 94.9 H (80.0-94.0) fl MCH 31.2 H (27.0-31.0) pg MCHC 32.8 L (33.0-37.0) g/dL RDW 13.9 (11.5-14.5) % Plt Count 105 L (130-400) K/uL MPV 9.9 (7.2-11.7) fl Neut % (Auto) 58.6 (50.0-75.0) % Lymph % (Auto) 26.0 (20.0-40.0) % Chester % (Auto) 9.0 (0.0-10.0) % Eos % (Auto) 5.5 H (0.0-4.0) % Baso % (Auto) 0.9 (0.0-2.0) % Neut # 3.5 (1.8-7.0) K/uL Lymph # 1.6 (1.0-4.3) K/uL Chester # 0.5 (0.0-0.8) K/uL Eos # 0.3 (0.0-0.7) K/uL Baso # 0.1 (0.0-0.2) K/uL PT (9.8-13.1) Seconds INR (0.9-1.2) APTT (25.6-37.1) Seconds D-Dimer, Quantitative (0-230) ng/mlDDU pCO2 33 L (35-45) mm/Hg pO2 437 H (80-100) mm/Hg HCO3 23.2 (21-28) mmol/L ABG pH 7.42 (7.35-7.45) ABG Total CO2 22.4 (22-28) mmol/L ABG O2 Saturation 100.4 H (95-98) % ABG Base Excess -2.2 L (-2.0-3.0) mmol/L Jorge Test Yes ABG Potassium 3.6 (3.6-5.2) mmol/L A-a O2 Difference 235.0 mm/Hg Sodium 136.0 (132-148) mmol/L Chloride 106.0 (98-107) mmol/L Glucose 183 H (75-110) mg/dL Lactate 2.4 H (0.7-2.1) mmol/L Vent Mode Nrm FiO2 100.0 % Potassium (3.6-5.0) MMOL/L Carbon Dioxide (22-30) mmol/L Anion Gap (10-20) BUN (9-20) mg/dl Creatinine (0.8-1.5) mg/dL Est GFR ( Amer) Est GFR (Non-Af Amer) POC Glucose (mg/dL) 201 H (65-110) mg/dL Random Glucose (75-110) mg/dL Lactic Acid (0.7-2.1) MMOL/L Calcium (8.4-10.2) mg/dL Total Bilirubin (0.2-1.3) mg/dl AST (17-59) U/L ALT (21-72) U/L Alkaline Phosphatase (38-126) U/L Troponin I (0.00-0.120) ng/mL Total Protein (6.3-8.2) G/DL Albumin (3.5-5.0) g/dL Globulin (2.2-3.9) gm/dL Albumin/Globulin Ratio (1.0-2.1) TSH 3rd Generation (0.46-4.68) mIU/ML Arterial Blood Potassium 3.6 (3.6-5.2) mmol/L Laboratory Results - last 24 hr 02/07/17 02/07/17 02/07/17 11:09 11:19 11:50 WBC 6.0 RBC 4.52 Hgb 14.1 Hct 42.9 MCV 94.9 H MCH 31.2 H MCHC 32.8 L RDW 13.9 Plt Count 105 L MPV 9.9 Neut % (Auto) 58.6 Lymph % (Auto) 26.0 Chester % (Auto) 9.0 Eos % (Auto) 5.5 H Baso % (Auto) 0.9 Neut # 3.5 Lymph # 1.6 Chester # 0.5 Eos # 0.3 Baso # 0.1 PT INR APTT D-Dimer, Quantitative pCO2 33 L pO2 437 H HCO3 23.2 ABG pH 7.42 ABG Total CO2 22.4 ABG O2 Saturation 100.4 H ABG Base Excess -2.2 L Jorge Test Yes ABG Potassium 3.6 A-a O2 Difference 235.0 Sodium 136.0 Chloride 106.0 Glucose 183 H Lactate 2.4 H Vent Mode Nrm FiO2 100.0 Potassium Carbon Dioxide Anion Gap BUN Creatinine Est GFR ( Amer) Est GFR (Non-Af Amer) POC Glucose (mg/dL) 201 H Random Glucose Lactic Acid Calcium Total Bilirubin AST ALT Alkaline Phosphatase Troponin I Total Protein Albumin Globulin Albumin/Globulin Ratio TSH 3rd Generation Arterial Blood Potassium 3.6 02/07/17 02/07/17 02/07/17 11:50 11:50 11:50 WBC RBC Hgb Hct MCV MCH MCHC RDW Plt Count MPV Neut % (Auto) Lymph % (Auto) Chester % (Auto) Eos % (Auto) Baso % (Auto) Neut # Lymph # Chester # Eos # Baso # PT 12.6 INR 1.1 APTT 34.2 D-Dimer, Quantitative 1264 H pCO2 pO2 HCO3 ABG pH ABG Total CO2 ABG O2 Saturation ABG Base Excess Jorge Test ABG Potassium A-a O2 Difference Sodium 145 Chloride 107 Glucose Lactate Vent Mode FiO2 Potassium 3.7 Carbon Dioxide 22 Anion Gap 19 BUN 23 H Creatinine 1.1 Est GFR ( Amer) > 60 Est GFR (Non-Af Amer) > 60 POC Glucose (mg/dL) Random Glucose 148 H Lactic Acid 2.7 H Calcium 9.5 Total Bilirubin 1.1 AST 27 ALT 23 Alkaline Phosphatase 84 Troponin I 0.0120 Total Protein 7.4 Albumin 4.4 Globulin 3.1 Albumin/Globulin Ratio 1.4 TSH 3rd Generation 5.05 H Arterial Blood Potassium EKG/Cardiology Studies: Cardiology / EKG Studies 02/07/17 EKG [ELECTROCARDIOGRAM] Stat Comment: Mode Of Transportation: Reason For Exam: DIRECTOR OF ELEMENTARY EDUCATION Isolation: Contact Critical Care Progress Note - Nutrition Nutrition: Nutrition Category Date Time Status Dysphagia/Modified Consistency Diet [DIET] Diets 10/02/15 Lunch Active Assessment/Plan - Assessment and Plan (Free Text) Plan: Time spent with this patient did not overlap with any other provider's medical or critical care time. Additionally the code selected for the services rendered in this note includes the time spent: talking to the patients family, associated physicians and reviewing hospital data/results not listed here which extended to a total of 45 minutes.
--- NOTE | 2017-02-07 15:17 | RAD ---
PROCEDURE: CHEST RADIOGRAPH, 1 VIEW HISTORY: hypotension COMPARISON: Comparison is made to 11/26/2016 FINDINGS: LUNGS: Suboptimal study due to rotation. No evidence of new infiltrate or consolidation in the lungs. PLEURA: No pneumothorax or pleural fluid seen. CARDIOVASCULAR: Mild cardiomegaly is again noted. OSSEOUS STRUCTURES: No significant abnormalities. VISUALIZED UPPER ABDOMEN: Normal. OTHER FINDINGS: None. IMPRESSION: No active disease.
--- NOTE | 2017-02-07 15:59 | RAD ---
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 Nonspecific bowel gas pattern. No definite free air, however provided image does not extend to include the hemidiaphragm precluding adequate evaluation. Pelvic calcifications, likely phleboliths. Extensive degenerative changes of the spine and pelvis. Osseous demineralization. IMPRESSION: Limited study. No acute findings.
[2017-02-07] MEDS: metroNIDAZOLE 500mg/100ml NS 100 ML IVPB SCH ×2 (17:49→18:44)
--- NOTE | 2017-02-07 19:07 | CP.PCM.PN ---
Subjective - Date & Time of Evaluation Date of Evaluation: 02/07/17 Time of Evaluation: 22:22 - Subjective Subjective: OFFICE SERVICES ASSISTANT Bradycardia Hypotension Objective - Vital Signs/Intake and Output Vital Signs (last 24 hours): Temp Pulse Resp BP Pulse Ox 98.8 F 81 23 129/58 L 84 L 02/07/17 16:00 02/07/17 16:00 02/07/17 16:00 02/07/17 16:00 02/07/17 16:00 - Medications Medications: Current Medications Acetaminophen (Tylenol 325mg Tab) 650 mg PO Q6 PRN PRN Reason: Pain, Mild (1-3) Last Admin: 01/26/17 09:28 Dose: 650 mg Amantadine HCl (Amantadine 100 Mg Cap) 100 mg PO BID [facility] Last Admin: 02/07/17 18:43 Dose: Not Given Benzocaine/Menthol (Cepacol Sore Throat) 1 morro PO TID PRN PRN Reason: Sore Throat Last Admin: 01/17/17 05:19 Dose: 1 morro Bethanechol Chloride (Urecholine) 50 mg PO TID [facility] Last Admin: 02/07/17 15:59 Dose: 50 mg Carbidopa/Levodopa (Rytary Er 48.75 Mg-195 Mg Cap) 1 cap PO TID@0500,1300,2100 [facility] Last Admin: 02/07/17 16:00 Dose: 1 cap Famotidine (Pepcid) 40 mg PO HS [facility] Heparin Sodium (Porcine) (Heparin) 5,000 units SC Q8 TU PRN Reason: Protocol Last Admin: 02/07/17 18:45 Dose: 5,000 units Lactated Ringer's (Lactated Ringer's) 1,000 mls @ 100 mls/hr IV .Q10H [facility] Last Admin: 02/07/17 15:59 Dose: 100 mls/hr Metronidazole (Flagyl 500mg/100ml Ns) 100 mls @ 100 mls/hr IVPB Q8 [facility] Last Admin: 02/07/17 18:44 Dose: 100 mls/hr Levofloxacin/Dextrose (Levaquin 750mg) 750 mg in 150 mls @ 100 mls/hr IVPB DAILY [facility] Last Admin: 02/07/17 18:44 Dose: 100 mls/hr Magnesium Hydroxide (Milk Of Magnesia) 30 ml PO DAILY PRN PRN Reason: Constipation Last Admin: 02/01/17 05:43 Dose: 30 ml Midodrine (Proamatine) 10 mg PO TID TU Last Admin: 02/07/17 18:45 Dose: Not Given - Labs Labs: 02/07/17 11:50 02/07/17 11:50 PT 12.6 Seconds (9.8-13.1) 02/07/17 11:50 INR 1.1 (0.9-1.2) 02/07/17 11:50 APTT 34.2 Seconds (25.6-37.1) 02/07/17 11:50 - Respiratory Exam Respiratory Exam: NORMAL BREATHING PATTERN - Cardiovascular Exam Cardiovascular Exam: REGULAR RHYTHM - GI/Abdominal Exam GI & Abdominal Exam: Normal Bowel Sounds Assessment and Plan - Assessment and Plan (Free Text) Assessment: Bradycardia Hypotenson chronic A-fib Sepsis ? Autonomic dysfunction? PTE? D-dimer and Lactate elevated IVF Cultures ABX Cardiology TSH TFT Disposition?? awaiting transfer to [place] Pt has medical decision making capacity but is financially vulnerable and would benefit from legal guardianship Court and Social service involved Pt is [place] WW[place] MRSA Nares Bactroban Recuurent c-diff d/c Vanco / Flagyl ?? Urine CS psuedomonas ? UA wnl Lethargy?? improved Baclofen d/c Infection resolved Reconsult Neuro R shoulder pain Dec ROM xrays subluxation Ultram PRN PT Gastroentritis? resolved d/c flagyl LGI bleed Thrombocytopenia Thrombocytopenia chronic Decubitus ulcer buttocks DVT prophylaxis SCD (no Lovenox due to thrombocytopenia) S/P UTI Enterrococus S/P Urinary retention S/P UTI Proteus S/P Pnuemonia S/P Hypotension OFFICE SERVICES ASSISTANT 2 to Dehydration Meds
--- NOTE | 2017-02-07 19:33 | CARD ---
APPROVED REPORT EXAM: Two-dimensional and M-mode echocardiogram with Doppler and color Doppler. Other Information Quality : AverageRhythm : Atrial Fibrillation Technically limited study due to Limited 4C views INDICATION Rt Atrial Enlargement,Rt Ventricular Enlargement 2D DIMENSIONS IVSd0.92 (0.7-1.1cm)LVDd4.27 (3.9-5.9cm) LVOT Diameter2.19 (1.8-2.4cm)PWd0.94 (0.7-1.1cm) IVSs1.20 (0.8-1.2cm)LVDs3.54 (2.5-4.0cm) FS (%) 17.1 %PWs1.45 (0.8-1.2cm) M-Mode DIMENSIONS Left Atrium (MM)6.15 (2.5-4.0cm)IVSd1.01 (0.7-1.1cm) Aortic Root3.56 (2.2-3.7cm)LVDd4.78 (4.0-5.6cm) Aortic Cusp Exc.2.06 (1.5-2.0cm)PWd0.98 (0.7-1.1cm) IVSs1.47 cmFS (%) 55 % LVDs2.17 (2.0-3.8cm)PWs1.89 cm Mitral Valve E/A ratio0.0 TDI E/Lateral E'0.0E/Medial E'0.0 Tricuspid Valve TR Peak [id number] [id number] Peak Gr.27mmHg [id number] LEFT VENTRICLE The left ventricle is normal size. There is normal left ventricular wall thickness. The left ventricular function is normal. The left ventricular ejection fraction is - 55%. There is normal LV segmental wall motion. The patient is in atrial fibrillation. No left ventricle thrombus noted on this study. There is no ventricular septal defect visualized. There is no left ventricular aneurysm. There is no mass noted in the left ventricle. RIGHT VENTRICLE The right ventricle is normal size. There is normal right ventricular wall thickness. The right ventricular systolic function is normal. ATRIA The left atrium is severely dilated. The right atrium is mildly to moderately dilated in some views. The interatrial septum is intact with no evidence for an atrial septal defect. AORTIC VALVE The aortic valve is mildly sclerotic. There is mild to moderate aortic regurgitation. There is no aortic valvular stenosis. MITRAL VALVE The mitral valve is normal in structure and function. There is no evidence of mitral valve prolapse. There is no mitral valve stenosis. Mitral regurgitation is mild. TRICUSPID VALVE The tricuspid valve is normal in structure and function. There is mild tricuspid regurgitation. Right ventricular systolic pressure is estimated at 35 mmHg. There is no tricuspid valve prolapse or vegetation. There is no tricuspid valve stenosis. PULMONIC VALVE The pulmonary valve is normal in structure and function. There is mild pulmonic valvular regurgitation. GREAT VESSELS The aortic root is normal in size. The IVC was not visualized. PERICARDIAL EFFUSION The pericardium appears normal. There is no pleural effusion. <Conclusion> The left ventricle is normal in size and wall thickness. The left ventricular function is normal. The left ventricular ejection fraction is - 55%. The left atrium is enlarged. The aortic valve is mildly sclerotic and there is mild to moderate aortic regurgitation. The mitral and tricuspid valves are normal. There is mild mitral regurgitation and mild tricuspid regurgitation.
--- NOTE | 2017-02-07 22:26 | CT ---
EXAM: CT Abdomen and Pelvis With Intravenous Contrast CLINICAL HISTORY: 86 years old, male; Pain; Abdominal pain; Localized; Right lower quadrant (rlq); Additional info: Rlq pain, R/O intra-abdominal abscess TECHNIQUE: Axial computed tomography images of the abdomen and pelvis with intravenous contrast. This CT exam was performed using one or more of the following dose reduction techniques: automated exposure control, adjustment of the mA and/or kV according to patient size, and/or use of iterative reconstruction technique. Coronal and sagittal reformatted images were created and reviewed. CONTRAST: 90 mL of visipaque administered intravenously. EXAM DATE/TIME: 02/07/2017 3:00 PM COMPARISON: CT - PELVIS W/O CONTRAST 07/10/2015 2:46:33 PM FINDINGS: Lower thorax: The heart is enlarged. There is a small hiatal hernia. There is a calcified pleural plaque at the right base. There is atelectasis and scarring at the right base. There is a 1.5 x 1.5 x 1.7 cm nodular opacity associated with scarring at the right base. There is less extensive scarring at the left base. There are no effusions ABDOMEN: Liver: unremarkable Gallbladder and bile ducts: Gallbladder is distended. There are multiple layering stones. Common bile duct is unremarkable. Pancreas: Pancreas is mildly atrophic. Spleen: unremarkable Adrenals: unremarkable Kidneys and ureters: There are bilateral nonobstructing renal stones. There is a right renal cyst.Kidneys and ureters are otherwise unremarkable. Stomach and bowel: Stomach is partially distended. Rotation is normal. There is no obstruction. Terminal ileum is unremarkable.Appendix is not visualized. There is no pericecal inflammation. Colon is incompletely distended which limits evaluation. Appendix: See above. PELVIS: Bladder: Bladder is partially distended. There is mild bladder wall thickening. Reproductive: The prostate is enlarged.Seminal vesicles have the expected configuration. ABDOMEN and PELVIS: Intraperitoneal space: There is no free air.There is no free fluid. Bones/joints: Bony structures are osteopenic.There are degenerative changes in the osseus structures. There is partial ankylosis of sacroiliac joints. There is mild wedging of T11. Soft tissues: There are bilateral fat-containing inguinal hernias right greater than left. Vasculature: There are calcified phleboliths. Aorta is mildly tortuous.There are vascular calcifications. Lymph nodes: unremarkable IMPRESSION: Gallstones; nonobstructing renal stones, no ureteral stones or hydronephrosis; no acute solid visceral abnormality; nonvisualization the appendix with no CT findings of appendicitis; bilateral inguinal hernias; enlarged prostate with mild bladder wall thickening Additional findings as described above.
--- NOTE | 2017-02-07 22:40 | CT ---
EXAM: CT Angiography Chest With Intravenous Contrast CLINICAL HISTORY: 86 years old, male; Signs and symptoms; Other: R/O pe; Additional info: R/O pulm embolus TECHNIQUE: Axial computed tomographic angiography images of the chest with intravenous contrast using pulmonary embolism protocol. This CT exam was performed using one or more of the following dose reduction techniques: automated exposure control, adjustment of the mA and/or kV according to patient size, and/or use of iterative reconstruction technique. MIP reconstructed images were created and reviewed. Coronal and sagittal reformatted images were created and reviewed. CONTRAST: 90 mL of Visipaque administered intravenously. EXAM DATE/TIME: 02/07/2017 3:00 PM COMPARISON: CT - ANGIO CHEST PE PROTOCOL 11/09/2015 12:28:12 AM FINDINGS: Artifacts: Motion artifact degrades image quality. Heart, aorta and Pulmonary arteries: The heart is enlarged. There are coronary calcifications.There is trace fluid in pericardial recesses. Aortic root is mildly dilated 4 cm in diameter. Proximal aortic arch measures approximately 4.1 cm. There are calcifications in the aortic wall. There may be a small area of ulceration in the proximal descending aorta, image 42 series 606. There are no central pulmonary emboli. Streak and motion limiting evaluation of peripheral vessels Lungs and pleural spaces: Trachea and main bronchi are patent. Lung apices are clear. There is thickening of the minor fissure. There is nodular scarring and airspace disease at the right base. There is a 1.7 x 1.4 cm nodular opacity in the posterior right lower lobe with associated linear scarring. There is a calcified pleural plaque at the right base. There is dependent atelectasis at both lung bases. There is medial subsegmental atelectasis in the left lower lobe adjacent to the descending aorta. There are no effusions. Mediastinum: Esophagus is mildly dilated. There is reflux of oral contrast in the esophagus.. There is distal esophageal wall thickening at the diaphragmatic hiatus. Thyroid: Thyroid is not optimally demonstrated. Bones/joints: Bony structures are osteopenic.There are degenerative changes in the osseus structures. There is deformity of the anterior right second, third and fourth ribs suggesting age-indeterminate fractures Soft tissues: unremarkable Lymph nodes: There are no pathologically enlarged mediastinal or hilar nodes. Upper abdomen: There are no acute abnormalities in the visualized portion of the abdomen.Gallbladder is distended with layering stones IMPRESSION: Cardiomegaly and atherosclerotic disease, mild dilatation of the ascending aorta and proximal aortic arch; possible small area of ulceration in the proximal descending aorta; limited evaluation of pulmonary arteries due to patient motion, no central pulmonary emboli; nodular scarring at the right base and small partially calcified pleural plaque; probable gastroesophageal reflux with thickening of the distal esophageal wall; gallstones Additional findings as described above.
[2017-02-08] MEDS: DOPamine 400mg/250ml D5W 400 MG/250 ML BAG IV ONE (01:39)
[2017-02-08] MEDS: metroNIDAZOLE 500mg/100ml NS 100 ML IVPB SCH ×3 (01:42→16:55)
[2017-02-08] MEDS: Lactated Ringer's 1,000 ML IV SCH ×2 (01:42→16:56)
[2017-02-08 06:13] LABS: SQUAMOUS EPITHIAL 1 /hpf (0-5); URINE BACTERIA RARE (<OCC); URINE BILIRUBIN NEGATIVE (NEGATIVE); URINE CALCIUM OXALATE CRYSTALS FEW /hpf (<OCC); URINE CLARITY CLOUDY (Clear); URINE COLOR AMBER (YELLOW); URINE GLUCOSE (UA) NEG (Normal); URINE LEUKOCYTE ESTERASE NEG Leu/uL (Negative); URINE NITRATE NEGATIVE (NEGATIVE); URINE PROTEIN 30 mg/dL (NEGATIVE); URINE UROBILINOGEN 0.2-1.0 mg/dL (0.2-1.0)
[2017-02-08 06:14] LABS: URINE BLOOD SMALL (NEGATIVE)
[2017-02-08 06:25] LABS: ALB/GLOB RATIO 1.3 (1.0-2.1); ALBUMIN 3.7 g/dL (3.5-5.0); ALT/SGPT 26 U/L (21-72); AST/SGOT 20 U/L (17-59); BLOOD UREA NITROGEN 27 mg/dl (9-20); CALCIUM 8.9 mg/dL (8.4-10.2); GFR AFRICAN-AMERICAN > 60; GFR NON-AFRICAN AMERICAN > 60
[2017-02-08 06:36] LABS: BASO % 0.3 % (0.0-2.0); EOS % 0.2 % (0.0-4.0); HEMOGLOBIN 12.8 g/dL (12.0-18.0); LYMPH # 0.7 K/uL (1.0-4.3); LYMPH % 7.5 % (20.0-40.0); MEAN CELL VOLUME 93.9 fl (80.0-94.0); MEAN CORPUSCULAR HEMOGLOBIN 31.9 pg (27.0-31.0); MEAN PLATELET VOLUME 9.9 fl (7.2-11.7); MONO # 0.7 K/uL (0.0-0.8); MONO % 7.1 % (0.0-10.0); NEUT # 8.2 K/uL (1.8-7.0); NEUT % 84.9 % (50.0-75.0); PLATELET COUNT 100 K/uL (130-400); RBC 4.02 Mil/uL (4.40-5.90); RED CELL DISTRIBUTION WIDTH 14.1 % (11.5-14.5); WHITE BLOOD COUNT 9.6 K/uL (4.8-10.8)
[2017-02-08] MEDS: Bethanechol 50 MG TAB PO SCH ×3 (08:43→16:56)
[2017-02-08 09:38] LABS: BANDS 1 % (0-2); LYMPHOCYTE 8 % (20-50); MONOCYTE 6 % (0-10); NEUTROPHIL 84 % (42-75); PLATELET ESTIMATE SLIGHTLY DECREASED (NORMAL); REACTIVE LYMPHOCYTES 1 % (0-0); TOTAL CELLS COUNTED 100
[2017-02-08 09:39] LABS: ANISOCYTOSIS SLIGHT; LARGE PLATELETS PRESENT
[2017-02-08] MEDS: levoFLOXacin 750 mg in D5W 750 MG/150 ML BAG IVPB SCH (10:09)
--- NOTE | 2017-02-08 10:33 | CARD ---
APPROVED REPORT EKG Measurement Heart [id number] <Conclusion> Atrial fibrillation with slow ventricular response Abnormal ECG baseline artefact-recommend repeat
[2017-02-08] MEDS: LEVODOPA PO SCH ×2 (12:35→20:12)
[2017-02-08] MEDS: CARBIDOPA PO SCH ×2 (12:35→20:12)
--- NOTE | 2017-02-08 19:42 | CP.PCM.PN ---
Subjective - Date & Time of Evaluation Date of Evaluation: 02/08/17 Time of Evaluation: 22:22 - Subjective Subjective: Above noted Objective - Vital Signs/Intake and Output Vital Signs (last 24 hours): Temp Pulse Resp BP Pulse Ox 98.9 F 68 20 105/62 99 02/08/17 15:57 02/08/17 18:00 02/08/17 18:00 02/08/17 18:00 02/08/17 18:00 Intake and Output: 02/08/17 02/09/17 18:59 06:59 Intake Total 1550 Balance 1550 - Medications Medications: Current Medications Acetaminophen (Tylenol 325mg Tab) 650 mg PO Q6 PRN PRN Reason: Pain, Mild (1-3) Amantadine HCl (Amantadine 100 Mg Cap) 100 mg PO BID [facility] Last Admin: 02/08/17 16:55 Dose: 100 mg Benzocaine/Menthol (Cepacol Sore Throat) 1 morro PO TID PRN PRN Reason: Sore Throat Bethanechol Chloride (Urecholine) 50 mg PO TID [facility] Last Admin: 02/08/17 16:56 Dose: 50 mg Carbidopa/Levodopa (Rytary Er 48.75 Mg-195 Mg Cap) 1 cap PO TID@0500,1300,2100 [facility] Last Admin: 02/08/17 12:35 Dose: 1 cap Famotidine (Pepcid) 40 mg PO HS [facility] Last Admin: 02/07/17 22:00 Dose: 40 mg Heparin Sodium (Porcine) (Heparin) 5,000 units SC Q8 TU PRN Reason: Protocol Last Admin: 02/08/17 16:55 Dose: 5,000 units Metronidazole (Flagyl 500mg/100ml Ns) 100 mls @ 100 mls/hr IVPB Q8 [facility] Last Admin: 02/08/17 16:55 Dose: 100 mls/hr Lactated Ringer's (Lactated Ringer's) 1,000 mls @ 100 mls/hr IV .Q10H [facility] Last Admin: 02/08/17 16:56 Dose: 100 mls/hr Levofloxacin/Dextrose (Levaquin 750mg) 750 mg in 150 mls @ 100 mls/hr IVPB DAILY [facility] Last Admin: 02/08/17 10:09 Dose: 100 mls/hr Magnesium Hydroxide (Milk Of Magnesia) 30 ml PO DAILY PRN PRN Reason: Constipation - Labs Labs: 02/08/17 06:00 02/08/17 04:00 PT 12.6 Seconds (9.8-13.1) 02/07/17 11:50 INR 1.1 (0.9-1.2) 02/07/17 11:50 APTT 34.2 Seconds (25.6-37.1) 02/07/17 11:50 - Respiratory Exam Respiratory Exam: NORMAL BREATHING PATTERN - Cardiovascular Exam Cardiovascular Exam: REGULAR RHYTHM - GI/Abdominal Exam GI & Abdominal Exam: Normal Bowel Sounds Assessment and Plan - Assessment and Plan (Free Text) Assessment: Bradycardia Hypotenson chronic A-fib Sepsis ? Autonomic dysfunction? PTE? D-dimer and Lactate elevated IVF Cultures ABX Cardiology TSH TFT Disposition?? awaiting transfer to [place] Pt has medical decision making capacity but is financially vulnerable and would benefit from legal guardianship Court and Social service involved Pt is [place] WW[place] MRSA Nares Bactroban Recuurent c-diff d/c Vanco / Flagyl ?? Urine CS psuedomonas ? UA wnl Lethargy?? improved Baclofen d/c Infection resolved Reconsult Neuro R shoulder pain Dec ROM xrays subluxation Ultram PRN PT Gastroentritis? 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
[2017-02-09] MEDS: metroNIDAZOLE 500mg/100ml NS 100 ML IVPB SCH ×2 (00:17→08:59)
--- NOTE | 2017-02-09 04:44 | PN ---
DATE: 02/08/2017 The patient is in ICU bed 430. TIME SPENT: 35 minutes. SUBJECTIVE: The patient seen and evaluated at the bedside. 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 Mental status noted to be the same at admission; however, noted to have low systolic blood pressure and low heart rate, started on dopamine for chronotropic effect. The patient remains alert and conversant and disorientation noted. Resting tremor persist. ALLERGIES: PENICILLIN. PHYSICAL EXAMINATION: GENERAL: Alert and awake at his baseline, able to answer. INTAKE AND OUTPUT: Intake 3241 and output 600. Positive balance 2641. VITAL SINGS: Temperature 98.8, heart rate 30 to 60, blood pressure 94/43 to 123/76, respiratory rate 17, saturation 98% this morning. HEAD, EYES, EARS, NOSE AND THROAT: Pupils some reactive. HEART: Rhythm regular. ABDOMEN: Bowel sounds present, soft. EXTREMITIES: Trace edema. Dorsalis pedis palpable. NEUROLOGIC: Remains alert, and awake. No cranial nerve deficit, involuntary tremor persist. Moves all four extremities. LABORATORY DATA: WBC 9.6, hemoglobin 12.8, hematocrit 37.7, platelet count of 100,000. Neutrophils 84.9, lymphocytes 7.5, monocytes 7.1. PT 12.6, INR 1.1, PTT 34.2. D-dimer 1264. ABG pH 7.42, PCO2 33, PO2 437, on FiO2 100%. SMA-7; sodium 149, potassium 4, chloride 1, CO2 of 22. Blood urine 27. Creatinine 0.8. Glucose 120. Lactic acid 2.7. Total bilirubin 1.3. AST is 20 and ALT 26. Alkaline phosphatase 68. Total protein 6.5, GSH 3.7. Procalcitonin 1.3. TSH 5.07. Urinalysis; WBC 4. Stool occult blood positive. Vancomycin trough level is 8.1. C. diff negative. HIV test negative. Microbiology; urine culture from 11/01/2016 Pseudomonas aeruginosa. Stool culture, negative. Blood culture, no growth reported. IMPRESSION: An 86-year-old male with Parkinson's disease with Shy-Drager syndrome admitted with bradycardia hypertension and diaphoresis responded to IV hydration. Currently, on dopamine for chronotropic effect. Heart rate varies from low 40's to 70's, normotensive. Request cardiology reevaluation to assess for structural reasons for bradycardia and need for permanent pace maker. Pulmonary CT chest done on 02/07/2017, cardiomegaly, atherosclerotic disease, mild dilatation of the ascending aorta, proximal aortic gauge. No central pulmonary emboli. Nodular scarring at the right base and small partially calcified pleural plaque all remain stable . Neuro; alert and oriented. Parkinson's disease with the tremor. GI; tolerating p.o. feeding. Renal; mild dehydration as BUN is 27 and creatinine 0.8. Endocrine; elevated TSH. Followup with the repeat TSH, T3, and T4. 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 ID; no clear evidence of infarction; however, reported to have urinary tract infection with Pseudomonas effect awaiting for the culture report. Abdominal CT showed gallstones, but not obstructing. No ureteral stones. No hydronephrosis. . Monitor off antibiotic. Continue DVT. GI prophylaxis. Levi Ribeiro MD MTDD
[2017-02-09] MEDS: CARBIDOPA PO SCH ×3 (05:00→20:08)
[2017-02-09] MEDS: LEVODOPA PO SCH ×3 (05:00→20:08)
[2017-02-09] MEDS: Lactated Ringer's 1,000 ML IV SCH ×3 (05:19→20:05)
[2017-02-09 07:11] LABS: HEMOGLOBIN 11.9 g/dL (12.0-18.0); MEAN CELL VOLUME 94.8 fl (80.0-94.0); MEAN CORPUSCULAR HEMOGLOBIN 31.6 pg (27.0-31.0); MEAN CORPUSCULAR HGB CONC 33.3 g/dL (33.0-37.0); RBC 3.78 Mil/uL (4.40-5.90); RED CELL DISTRIBUTION WIDTH 13.7 % (11.5-14.5); WHITE BLOOD COUNT 6.3 K/uL (4.8-10.8)
[2017-02-09 07:23] LABS: BLOOD UREA NITROGEN 18 mg/dl (9-20); CALCIUM 9.2 mg/dL (8.4-10.2); GFR AFRICAN-AMERICAN > 60; GFR NON-AFRICAN AMERICAN > 60
[2017-02-09] MEDS: Bethanechol 50 MG TAB PO SCH ×3 (08:59→16:25)
[2017-02-09] MEDS: levoFLOXacin 750 mg in D5W 750 MG/150 ML BAG IVPB SCH (10:43)
--- NOTE | 2017-02-09 13:32 | CP.PCM.CON ---
History of Present Illness - History of Present Illness History of Present Illness: transferred to ICU s/p Bradyarrythmia/ hypoxemia started on IV levaquin await cultures Review of Systems - Review of Systems Systems not reviewed;Unavailable: Altered Mental Status All systems: reviewed and no additional remarkable complaints except Past Patient History - Tetanus Immunizations Tetanus Immunization: Unknown - Past Medical History & Family History Past Medical History?: Yes - Past Social History Smoking Status: Never Smoked - CARDIAC Hx Cardiac Disorders: No Hx Congestive Heart Failure: No Hx Hypercholesterolemia: No Hx Hypertension: No - PULMONARY Hx Chronic Obstructive Pulmonary Disease (COPD): No - NEUROLOGICAL HX Cerebrovascular Accident: No - HEENT Hx HEENT Problems: Yes Hx Cataracts: No Hx Deafness: No Hx Difficulty Chewing: No Hx Epistaxis: No Hx Glaucoma: Yes Hx Macular Degeneration: No - RENAL Hx Renal Failure: No - ENDOCRINE/METABOLIC Hx Diabetes Mellitus Type 1: No Hx Diabetes Mellitus Type 2: No Hx Hypothyroidism: No - HEMATOLOGICAL/ONCOLOGICAL Hx Anemia: No Hx Human Immunodeficiency Virus (HIV): No Hx Sickle Cell Disease: No - INTEGUMENTARY Hx Dermatological Problems: No Hx Basil Cell: No Hx Silva: No Hx Cellulitis: Yes (right leg) Hx Eczema: No Hx Melanoma: No Hx Psoriasis: No Hx Squamous Cell: No - MUSCULOSKELETAL/RHEUMATOLOGICAL Hx Arthritis: No Hx Rheumatoid Arthritis: No - GASTROINTESTINAL Hx Crohn's Disease: No Hx Diverticulitis: No Hx Gall Bladder Disease: No Hx Gastritis: No Hx Pancreatitis: No - GENITOURINARY/GYNECOLOGICAL Hx Sexually Transmitted Disorders: No - PSYCHIATRIC Hx Anxiety: Yes Hx Depression: Yes - SURGICAL HISTORY Hx Appendectomy: Yes Hx Carotid Endarterectomy: No Hx Cholecystectomy: No Hx Coronary Artery Bypass Graft: No Hx Coronary Stent: No Hx Tonsillectomy: Yes - ANESTHESIA Hx Anesthesia: Yes Hx Anesthesia Reactions: No Hx Malignant Hyperthermia: No Meds Allergies/Adverse Reactions: Allergies Allergy/AdvReac Type Severity Reaction Status Date / Time Penicillins Allergy Hives Verified 08/01/15 06:34 - Medications Medications: Current Medications Acetaminophen (Tylenol 325mg Tab) 650 mg PO Q6 PRN PRN Reason: Pain, Mild (1-3) Amantadine HCl (Amantadine 100 Mg Cap) 100 mg PO BID [facility] Last Admin: 02/09/17 08:58 Dose: 100 mg Benzocaine/Menthol (Cepacol Sore Throat) 1 morro PO TID PRN PRN Reason: Sore Throat Bethanechol Chloride (Urecholine) 50 mg PO TID [facility] Last Admin: 02/09/17 13:26 Dose: 50 mg Carbidopa/Levodopa (Rytary Er 48.75 Mg-195 Mg Cap) 1 cap PO TID@0500,1300,2100 [facility] Last Admin: 02/09/17 13:26 Dose: 1 cap Famotidine (Pepcid) 40 mg PO HS [facility] Last Admin: 02/08/17 21:36 Dose: 40 mg Heparin Sodium (Porcine) (Heparin) 5,000 units SC Q8 [facility] PRN Reason: Protocol Last Admin: 02/09/17 08:59 Dose: 5,000 units Lactated Ringer's (Lactated Ringer's) 1,000 mls @ 100 mls/hr IV .Q10H [facility] Last Admin: 02/09/17 05:19 Dose: 100 mls/hr Magnesium Hydroxide (Milk Of Magnesia) 30 ml PO DAILY PRN PRN Reason: Constipation Physical Exam - Constitutional Appears: No Acute Distress, Chronically Ill - Head Exam Head Exam: ATRAUMATIC, NORMOCEPHALIC - Eye Exam Eye Exam: EOMI, PERRL - ENT Exam ENT Exam: Mucous Membranes Dry, Normal External Ear Exam - Neck Exam Neck exam: Negative for: Lymphadenopathy - Respiratory Exam Respiratory Exam: Decreased Breath Sounds - Cardiovascular Exam Cardiovascular Exam: REGULAR RHYTHM - GI/Abdominal Exam GI & Abdominal Exam: Diminished Bowel Sounds, Soft - Rectal Exam Rectal Exam: Deferred - Exam Exam: NORMAL INSPECTION - Extremities Exam Extremities exam: Positive for: pedal pulses present. Negative for: pedal edema , tenderness - Back Exam Back exam: absent: CVA tenderness (L), CVA tenderness (R) - Neurological Exam Neurological exam: Alert, CN II-XII Intact, Oriented x3, Reflexes Normal - Psychiatric Exam Psychiatric exam: Normal Mood - Skin Skin Exam: Dry Results - Vital Signs Recent Vital Signs: Last Vital Signs Temp 98.1 F 02/09/17 10:00 Pulse 84 02/09/17 10:00 Resp 16 02/09/17 10:00 BP 112/74 02/09/17 10:00 Pulse Ox 100 02/09/17 10:00 - Labs Result Diagrams: 02/09/17 06:00 02/09/17 06:00 Labs: Laboratory Results - last 24 hr 02/08/17 02/09/17 02/09/17 05:30 06:00 06:00 WBC 6.3 RBC 3.78 L Hgb 11.9 L Hct 35.9 MCV 94.8 H MCH 31.6 H MCHC 33.3 RDW 13.7 Plt Count 84 L Sodium 138 Potassium 3.9 Chloride 107 Carbon Dioxide 23 Anion Gap 13 BUN 18 Creatinine 0.8 Est GFR ( Amer) > 60 Est GFR (Non-Af Amer) > 60 Random Glucose 91 Calcium 9.2 Procalcitonin 0.19 Assessment & Plan (1) Parkinsonism Status: Acute (2) Bradyarrhythmia Status: Acute - Assessment and Plan (Free Text) Assessment: s/p bradycardia no signs of sepsis cardio follow up
--- NOTE | 2017-02-09 15:37 | CP.PCM.PN ---
Subjective - Date & Time of Evaluation Date of Evaluation: 02/09/17 Time of Evaluation: 22:22 - Subjective Subjective: Blood preasure improved- off Dopamine Objective - Vital Signs/Intake and Output Vital Signs (last 24 hours): Temp Pulse Resp BP Pulse Ox 98.1 F 73 8 L 119/45 L 100 02/09/17 12:00 02/09/17 14:00 02/09/17 14:00 02/09/17 14:00 02/09/17 14:00 Intake and Output: 02/09/17 02/09/17 06:59 18:59 Intake Total 1264 1200 Output Total 600 300 Balance 664 900 - Medications Medications: Current Medications Acetaminophen (Tylenol 325mg Tab) 650 mg PO Q6 PRN PRN Reason: Pain, Mild (1-3) Amantadine HCl (Amantadine 100 Mg Cap) 100 mg PO BID [facility] Last Admin: 02/09/17 08:58 Dose: 100 mg Benzocaine/Menthol (Cepacol Sore Throat) 1 morro PO TID PRN PRN Reason: Sore Throat Bethanechol Chloride (Urecholine) 50 mg PO TID [facility] Last Admin: 02/09/17 13:26 Dose: 50 mg Carbidopa/Levodopa (Rytary Er 48.75 Mg-195 Mg Cap) 1 cap PO TID@0500,1300,2100 [facility] Last Admin: 02/09/17 13:26 Dose: 1 cap Famotidine (Pepcid) 40 mg PO HS [facility] Last Admin: 02/08/17 21:36 Dose: 40 mg Heparin Sodium (Porcine) (Heparin) 5,000 units SC Q8 [facility] PRN Reason: Protocol Last Admin: 02/09/17 08:59 Dose: 5,000 units Lactated Ringer's (Lactated Ringer's) 1,000 mls @ 100 mls/hr IV .Q10H [facility] Last Admin: 02/09/17 05:19 Dose: 100 mls/hr Magnesium Hydroxide (Milk Of Magnesia) 30 ml PO DAILY PRN PRN Reason: Constipation - Labs Labs: 02/09/17 06:00 02/09/17 06:00 PT 12.6 Seconds (9.8-13.1) 02/07/17 11:50 INR 1.1 (0.9-1.2) 02/07/17 11:50 APTT 34.2 Seconds (25.6-37.1) 02/07/17 11:50 - Respiratory Exam Respiratory Exam: NORMAL BREATHING PATTERN - Cardiovascular Exam Cardiovascular Exam: REGULAR RHYTHM - GI/Abdominal Exam GI & Abdominal Exam: Normal Bowel Sounds Assessment and Plan - Assessment and Plan (Free Text) Assessment: Bradycardia Hypotenson chronic A-fib AV dissociation?? CT scan dilated aorta with ulceration?? Sepsis ? Autonomic dysfunction? PTE? D-dimer and Lactate elevated IVF Cultures ABX Cardiology TSH TFT Disposition?? awaiting transfer to [place] Pt has medical decision making capacity but is financially vulnerable and benefits from legal guardianship Court and Social service involved Pt is [place] WWII MRSA Nares Bactroban Recuurent c-diff d/c Vanco / Flagyl ?? Urine CS psuedomonas ? UA wnl Lethargy?? improved Baclofen d/c Infection resolved Reconsult Neuro R shoulder pain Dec ROM xrays subluxation Ultram PRN PT Gastroentritis? 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
[2017-02-09 15:53] LABS: MAGNESIUM 1.6 MG/DL (1.6-2.3)
[2017-02-09 16:11] LABS: T4 7.44 ug/dl (5.5-11.0)
[2017-02-09 16:24] LABS: T3 1.05 nmol/L (1.49-2.60)
--- NOTE | 2017-02-09 18:25 | PN ---
DATE: 02/09/2017 CRITICAL CARE PROGRESS NOTE LOCATION: The patient is in ICU, bed 430. TIME SPENT: 35 minutes. SUBJECTIVE: The patient seen and evaluated at the bedside. Events since admission to ICU reviewed, clinical course noted. 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 Admitted to ICU on 02/07/2017, status post status post MANAGER CONTRACT for bradycardia, hypotension and diaphoresis without any significant change in the mental status and/or shortness of breath, chest pain or palpation. The patient was noted to have bradycardia and hypertension treated with some IV fluid with subsequent improvement in blood pressure, started on dopamine for chronotropic effect, midodrine discontinued secondary to suspected side effect with bradycardia, resting tremor persist over night, remained afebrile, normotensive, off dopamine, no further cardiac arrhythmias noted, telemetry sinus rhythm, no sinus pause or AV blocks noted. This morning alert and awake, follows commands appropriate at times noted to be confused. PHYSICAL EXAMINATION: VITAL SINGS: Temperature 98.1; heart rate 84, regular; respiratory rate at 16; blood pressure 112/74, mean arterial pressure 86; saturation 100% on room air. Intake 2814 and output 600, positive balance 2214. HEAD, EYES, EARS, NOSE AND THROAT: Pupils are reactive. Conjunctivae are pink. Sclerae are white. NECK: Moderate degree of stiffness. Trachea is center. CHEST: Bilateral breath sounds. Clear to auscultation. HEART: Rhythm regular. S1 and S2 normal intensity. No S3, S4 gallop. No audible murmur. ABDOMEN: Bowel sounds present, soft. Liver and spleen not palpable. EXTREMITIES: Resting fine tremor. Moves all four extremities. NEUROLOGIC: Alert, and awake to name, place, time. CURRENT MEDICATIONS: Tylenol 650 mg q. 6 p.r.n., amantadine 100 mg b.i.d., __ 50 mg p.o. 3 times daily, carbidopa/levodopa Rytary extended release 48.75/195 mg 1 tab capsule p.o. 3 times daily, Pepcid 40 mg p.o. daily, heparin 5000 units subcu q. 8, Ringer's lactate at 100 mL per hour, Flagyl 500 mg IV q. 8, levofloxacin 750 mg IV daily. LABORATORY DATA: WBC 6.3, hemoglobin 11.9, hematocrit 35.9, platelet count 84. PT 12.6, INR 1.1, PTT 34.2. ABG pH 7.42, pCO2 of 33, pO2 of 437, on 100%. SMA-7; sodium 138, potassium 3.9, chloride 107, CO2 of 23. Blood urea nitrogen 18. Creatinine 0.8, random glucose 91. Urinalysis; rbc's 4, wbc's 4. Stool occult blood positive. Microbiology: Blood culture, no growth. Urine culture, no growth reported. CT chest, no central pulmonary embolism. Abdominal and pelvis CT, cholelithiasis without cholecystitis. Chest x-ray, no active disease. IMPRESSION: Admitted to ICU status post MANAGER CONTRACT with bradycardia, hypotension, diaphoresis, responded to IV hydration, currently bradycardia, hypertension resolved, off dopamine and midodrine. Septic workup negative, discontinue Rocephin and Flagyl. Monitor off antibiotic. Parkinson's disease with Shy-Drager syndrome and autonomic dysfunction probably contributing to bradycardia and hypotension, concern of bradycardia secondary to midodrine on hold for now. Cardiology evaluation to assess the AV block as per PMD. CT chest negative for pulmonary embolism. CT abdomen negative for cholecystitis, but show cholelithiasis. TSH noted to be elevated, we will follow with repeat THS and T3 and T4 Neuro status, unchanged. Resting tremor persist. Hematology: Anemia of chronic disease; thrombocytopenia, chronic. History of atrial fibrillation with slow ventricular response in the past, remains stable. The patient remains clinically stable, can be transferred to telemetry floor. Cardiology consult requested for further evaluation of the cardiac status. Levi Ribeiro MD [facility]
[2017-02-10] MEDS: CARBIDOPA PO SCH ×3 (04:36→21:19)
[2017-02-10] MEDS: Lactated Ringer's 1,000 ML IV SCH ×2 (04:36→16:30)
[2017-02-10] MEDS: LEVODOPA PO SCH ×3 (04:36→21:19)
[2017-02-10 05:30] LABS: HEMOGLOBIN 11.8 g/dL (12.0-18.0); MEAN CELL VOLUME 94.5 fl (80.0-94.0); MEAN CORPUSCULAR HEMOGLOBIN 31.6 pg (27.0-31.0); MEAN CORPUSCULAR HGB CONC 33.5 g/dL (33.0-37.0); RBC 3.73 Mil/uL (4.40-5.90); RED CELL DISTRIBUTION WIDTH 13.6 % (11.5-14.5); WHITE BLOOD COUNT 4.9 K/uL (4.8-10.8)
[2017-02-10 05:32] LABS: BLOOD UREA NITROGEN 14 mg/dl (9-20); GFR AFRICAN-AMERICAN > 60; GFR NON-AFRICAN AMERICAN > 60
[2017-02-10] MEDS: Bethanechol 50 MG TAB PO SCH ×3 (08:49→18:36)
--- NOTE | 2017-02-10 18:20 | CP.PCM.PN ---
Subjective - Date & Time of Evaluation Date of Evaluation: 02/10/17 Time of Evaluation: 22:22 - Subjective Subjective: Above noted Objective - Vital Signs/Intake and Output Vital Signs (last 24 hours): Temp Pulse Resp BP Pulse Ox 98.8 F 88 18 112/47 L 97 02/10/17 16:00 02/10/17 16:00 02/10/17 16:00 02/10/17 16:00 02/10/17 16:00 Intake and Output: 02/10/17 02/10/17 06:59 18:59 Intake Total 1200 1000 Output Total 100 Balance 1100 1000 - Medications Medications: Current Medications Acetaminophen (Tylenol 325mg Tab) 650 mg PO Q6 PRN PRN Reason: Pain, Mild (1-3) Amantadine HCl (Amantadine 100 Mg Cap) 100 mg PO BID [facility] Last Admin: 02/10/17 17:34 Dose: 100 mg Benzocaine/Menthol (Cepacol Sore Throat) 1 morro PO TID PRN PRN Reason: Sore Throat Bethanechol Chloride (Urecholine) 50 mg PO TID [facility] Last Admin: 02/10/17 15:02 Dose: 50 mg Carbidopa/Levodopa (Rytary Er 48.75 Mg-195 Mg Cap) 1 cap PO TID@0500,1300,2100 [facility] Last Admin: 02/10/17 15:01 Dose: 1 cap Famotidine (Pepcid) 40 mg PO HS [facility] Last Admin: 02/09/17 20:59 Dose: 40 mg Heparin Sodium (Porcine) (Heparin) 5,000 units SC Q8 [facility] PRN Reason: Protocol Last Admin: 02/10/17 17:34 Dose: 5,000 units Lactated Ringer's (Lactated Ringer's) 1,000 mls @ 100 mls/hr IV .Q10H [facility] Last Admin: 02/10/17 16:30 Dose: 100 mls/hr Magnesium Hydroxide (Milk Of Magnesia) 30 ml PO DAILY PRN PRN Reason: Constipation Magnesium Oxide (Mag-Ox) 400 mg PO DAILY [facility] Last Admin: 02/10/17 17:35 Dose: 400 mg - Labs Labs: 02/10/17 04:25 02/10/17 04:25 PT 12.6 Seconds (9.8-13.1) 02/07/17 11:50 INR 1.1 (0.9-1.2) 02/07/17 11:50 APTT 34.2 Seconds (25.6-37.1) 02/07/17 11:50 - Respiratory Exam Respiratory Exam: NORMAL BREATHING PATTERN - Cardiovascular Exam Cardiovascular Exam: REGULAR RHYTHM - GI/Abdominal Exam GI & Abdominal Exam: Normal Bowel Sounds Assessment and Plan - Assessment and Plan (Free Text) Assessment: Bradycardia Hypotenson chronic A-fib AV dissociation?? CT scan dilated aorta with ulceration?? Sepsis ? Autonomic dysfunction? PTE? D-dimer and Lactate elevated IVF Cultures ABX Cardiology TSH TFT Disposition?? awaiting transfer to [place] Pt has medical decision making capacity but is financially vulnerable and benefits from legal guardianship Court and Social service involved Pt is [place] WW[place] MRSA Nares Bactroban Recuurent c-diff d/c Vanco / Flagyl ?? Urine CS psuedomonas ? UA wnl Lethargy?? improved Baclofen d/c Infection resolved Reconsult Neuro R shoulder pain Dec ROM xrays subluxation Ultram PRN PT Gastroentritis? 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
[2017-02-11] MEDS: Lactated Ringer's 1,000 ML IV SCH (02:13)
--- NOTE | 2017-02-11 03:29 | PN ---
DATE: 02/10/2017 LOCATION: The patient is in ICU, bed 435. TIME SPENT: 35 minutes. SUBJECTIVE: Seen and evaluated at the bedside. Events since admission to ICU reviewed, clinical course noted. An 85-year-old male with history of Parkinson's disease with Shy-Drager syndrome, on carbidopa/levodopa and midodrine, status post GI bleeding in the past. Admitted to ICU on 02/07/2017, status post HUB BANDER for bradycardia, hypotension and diaphoresis without any significant change in the mental status and mild to moderate shortness of breath. The patient noted to have bradycardia and hypotension, treated with IV fluid with subsequent improvement in blood pressure, started on dopamine for chronotropic effect; currently off the pressors, remains normotensive, afebrile. Telemetry, sinus rhythm. PHYSICAL EXAMINATION VITAL SIGNS: Temperature 97.5, heart rate 88, blood pressure 112/47, respiratory rate 18, saturating 100%. Intake 2900, output 1600, positive balance 1300. HEAD, EYES, EARS, NOSE AND THROAT: Pupils are reactive. Conjunctivae are pink. Sclerae are white. NECK: Supple. [id number] degree of stiffness. Trachea is central. CHEST: Bilateral breath sounds. Clear to auscultation. HEART: Rhythm regular. S1 and S2 normal. No S3, S4 gallop. No audible murmur. ABDOMEN: Bowel sounds present, soft. Liver and spleen not palpable. Bladder not distended. EXTREMITIES: Trace edema. NEURO: Alert and awake to name, place, but not to time. IMPRESSION: Admitted to ICU, status post HUB BANDER with bradycardia, hypotension and diaphoresis, now responded to IV hydration. Still on IV fluid at 75 mL per hour. The patient is tolerating p.o. feeds. Blood pressure maintained, off dopamine and midodrine. Septic workup negative. Off Rocephin and Flagyl. Parkinson's disease with Shy-Drager syndrome and autonomic dysfunction probably contributing to bradycardia and hypotension. Concern for bradycardia secondary to midodrine, hold for now. Cardiology evaluation to assess the AV block as per PMD. Reevaluate the need for midodrine and the side effect of bradycardia from midodrine. CT chest negative for pulmonary embolism. CT abdomen negative for cholecystitis, but cholelithiasis is symptomatic. TSH, T3, T4 repeat are normal. No clear evidence of hypothyroidism. Neuro status unchanged. Resting tremor persist. Hematology, anemia of chronic disease; thrombocytopenia, chronic. History of atrial fibrillation with slow ventricular response in the past, remains stable. The patient remains clinically stable, can be transferred to telemetry floor. Cardiology consult as Dr. Cornejo, pending for evaluation of cardiac arrhythmia, including AV block/paroxysmal AFib. Levi Ribeiro MD
[2017-02-11] MEDS: LEVODOPA PO SCH ×3 (05:00→20:51)
[2017-02-11] MEDS: CARBIDOPA PO SCH ×3 (05:00→20:51)
[2017-02-11] MEDS: Bethanechol 50 MG TAB PO SCH ×3 (08:51→17:13)
--- NOTE | 2017-02-11 10:41 | CP.CCUPN ---
CCU Subjective - Physician Review Subjective (Free Text): Awake and non-distressed, intermittently yelling out as his usual behavior, off vasopressors for the past 3 days, no further bradycardic or hypotensive episodes , no other manifestations of autonomic dysfx. Afebrile, no fever spikes noted ( not even when Sepsis was presumed approx. 5 days ago ) ROS: as above, no other pertinent negs or positives on 10+ system review. Other PMSFH: All recent nursing and physician documentation reviewed and no new information noted relevant to current problems. MAJOR PROBLEMS: 1. Hypotension, diaphoresis and bradycardia may all be manifest by autonomic dysfunction symptoms. 2. No new organisms isolated from blood or urine, currently on no antibiotics. 3. Maintain DVT prophylaxis. 4. PTE: no massive or saddle embolus, nor significant A-a gradient giving rise to hypotension 5 days ago despite elevated D_dimer levels. No other source of D-dimer production / elevation beyond current hospitalization as etiology. Minimal brief lactate elevation 2 to hypotension form ANS dysfx which cleared with fluid challenge. 5. Abnormal TFTs reflect non-thyroidal illness. 6. Will allow IVFs to time out, PO intake is good. 7. PMD has stopped Baclofen due to possible STEMHOLE BORER ADRs. 8. Cleared by Cardiology and Critical Care for transfer back to regular medical bed. CCU Objective - Vital Signs / Intake & Output Vital Signs (Last 4 hours): Vital Signs Temp Pulse Resp BP Pulse Ox 02/11/17 10:00 65 18 121/74 100 02/11/17 08:00 98.6 F 77 13 162/96 H 100 Intake and Output (Last 8hrs): Intake & Output 02/10/17 02/11/17 02/11/17 22:59 06:59 14:59 Intake Total 600 600 Output Total 1200 Balance -600 600 Intake: IV 600 600 Output: Urine 1200 Condom 1200 Other: # Bowel Movements 1 - Physical Exam Head: Positive for: Normocephalic Pupils: Positive for: PERRL Extroacular Muscles: Positive for: EOMI Conjunctiva: Positive for: Normal Mouth: Positive for: Moist Mucous Membranes Pharnyx: Positive for: Normal. Negative for: ERYTHEMA, EXUDATE Neck: Positive for: Normal Range of Motion. Negative for: JVD, Lymphadenopathy Respiratory/Chest: Positive for: Decreased Breath Sounds. Negative for: Accessory Muscle Use, Wheezes Cardiovascular: Positive for: Irregular Rhythm. Negative for: Murmurs Abdomen: Positive for: Normal Bowel Sounds. Negative for: Tenderness, Distention Lower Extremity: Positive for: NORMAL PULSES. Negative for: CALF TENDERNESS, Cyanosis Neurological: Positive for: GCS=15 Skin: Positive for: Warm. Negative for: Rashes - Medications Active Medications: Active Medications Generic Name Dose Route Start Last Admin Trade Name Freq PRN Reason Stop Dose Admin Acetaminophen 650 mg 02/07/17 20:30 Tylenol 325mg Tab PO Q6 PRN Pain, Mild (1-3) Amantadine HCl 100 mg 02/08/17 09:00 02/11/17 08:51 Amantadine 100 Mg Cap PO 100 mg BID TU Administration Benzocaine/Menthol 1 morro 02/07/17 20:30 Cepacol Sore Throat PO TID PRN Sore Throat Bethanechol Chloride 50 mg 02/08/17 09:00 02/11/17 08:51 Urecholine PO 50 mg TID TU Administration Carbidopa/Levodopa 1 cap 02/07/17 21:00 02/11/17 05:00 Rytary Er 48.75 Mg-195 Mg Cap PO Not Given TID@0500,1300,2100 TU Famotidine 40 mg 02/07/17 22:00 02/10/17 21:17 Pepcid PO 40 mg HS TU Administration Heparin Sodium (Porcine) 5,000 units 02/08/17 01:00 02/11/17 08:51 Heparin SC 5,000 units Q8 TU Administration Protocol Lactated Ringer's 1,000 mls @ 100 mls/hr 02/07/17 20:30 02/11/17 02:13 Lactated Ringer's IV 100 mls/hr .Q10H TU Administration - Patient Studies Lab Studies: Microbiology Studies 02/07/17 11:50 Blood Culture - Preliminary Blood NO GROWTH AFTER 3 DAYS Critical Care Progress Note - Extremities/Vascular Does the Patient have a Central Venous Catheter?: No Does the Patient need a Central Venous Catheter?: No Does the Patient have a Levin Catheter?: No ([place] CATHETER) Does the Patient need a Levin Catheter?: No - Prophylaxis GI Prophylaxis GI: Pepsid - Prophylaxis DVT Prophylaxis DVT: Heparin SQ - Nutrition Nutrition: Nutrition Category Date Time Status Dysphagia/Modified Consistency Diet [DIET] Diets 10/02/15 Lunch Active
[2017-02-11] MEDS: Benzocaine/Menthol (Cepacol) Lozenge PO PRN (11:40)
--- NOTE | 2017-02-11 20:22 | CP.PCM.PN ---
Subjective - Date & Time of Evaluation Date of Evaluation: 02/11/17 Time of Evaluation: 22:22 - Subjective Subjective: Above noted Objective - Vital Signs/Intake and Output Vital Signs (last 24 hours): Temp Pulse Resp BP Pulse Ox 98.2 F 68 20 146/89 97 02/11/17 15:52 02/11/17 15:52 02/11/17 15:52 02/11/17 15:52 02/11/17 15:52 - Medications Medications: Current Medications Acetaminophen (Tylenol 325mg Tab) 650 mg PO Q6 PRN PRN Reason: Pain, Mild (1-3) Amantadine HCl (Amantadine 100 Mg Cap) 100 mg PO BID [facility] Last Admin: 02/11/17 17:13 Dose: 100 mg Benzocaine/Menthol (Cepacol Sore Throat) 1 morro PO TID PRN PRN Reason: Sore Throat Last Admin: 02/11/17 11:40 Dose: 1 morro Bethanechol Chloride (Urecholine) 50 mg PO TID [facility] Last Admin: 02/11/17 17:13 Dose: 50 mg Carbidopa/Levodopa (Rytary Er 48.75 Mg-195 Mg Cap) 1 cap PO TID@0500,1300,2100 [facility] Last Admin: 02/11/17 13:46 Dose: 1 cap Famotidine (Pepcid) 40 mg PO HS [facility] Last Admin: 02/10/17 21:17 Dose: 40 mg Heparin Sodium (Porcine) (Heparin) 5,000 units SC Q8 [facility] PRN Reason: Protocol Last Admin: 02/11/17 17:13 Dose: 5,000 units Lactated Ringer's (Lactated Ringer's) 1,000 mls @ 100 mls/hr IV .Q10H [facility] Last Admin: 02/11/17 02:13 Dose: 100 mls/hr - Labs Labs: 02/10/17 04:25 02/10/17 04:25 PT 12.6 Seconds (9.8-13.1) 02/07/17 11:50 INR 1.1 (0.9-1.2) 02/07/17 11:50 APTT 34.2 Seconds (25.6-37.1) 02/07/17 11:50 - Respiratory Exam Respiratory Exam: NORMAL BREATHING PATTERN - Cardiovascular Exam Cardiovascular Exam: REGULAR RHYTHM - GI/Abdominal Exam GI & Abdominal Exam: Normal Bowel Sounds Assessment and Plan - Assessment and Plan (Free Text) Assessment: Bradycardia Hypotenson chronic A-fib AV dissociation?? CT scan dilated aorta with ulceration?? Sepsis ? Autonomic dysfunction? PTE? D-dimer and Lactate elevated IVF Cultures ABX Cardiology TSH TFT wnl Disposition?? awaiting transfer to [place] Pt has medical decision making capacity but is financially vulnerable and benefits from legal guardianship Court and Social service involved Pt is [place] WW[place] MRSA Nares Bactroban Recuurent c-diff d/c Vanco / Flagyl ?? Urine CS psuedomonas ? UA wnl Lethargy?? improved Baclofen d/c Infection resolved Reconsult Neuro R shoulder pain Dec ROM xrays subluxation Ultram PRN PT Gastroentritis? resolved d/c flagyl LGI bleed Thrombocytopenia Thrombocytopenia chronic Decubitus ulcer buttocks DVT prophylaxis SCD (no Lovenox due to thrombocytopenia) S/P UTI Enterrococus S/P Urinary retention S/P UTI Proteus S/P Pnuemonia S/P Hypotension SUPERINTENDENT REFUSE DISPOSAL 2 to Dehydration Meds
[2017-02-12] MEDS: Lactated Ringer's 1,000 ML IV SCH (00:30)
[2017-02-12] MEDS: CARBIDOPA PO SCH ×3 (05:19→21:41)
[2017-02-12] MEDS: LEVODOPA PO SCH ×3 (05:19→21:41)
--- NOTE | 2017-02-12 08:09 | US ---
PROCEDURE: Bilateral lower extremity venous duplex Doppler. HISTORY: COMPARISON: None available. TECHNIQUE: Bilateral common femoral, superficial femoral, popliteal and posterior tibial veins were evaluated. Flow was assessed with color Doppler, compressibility, assessment of phasic flow and augmentation response. FINDINGS: COMMON FEMORAL VEIN: Right CFV: Unremarkable. Left CFV: Unremarkable. SUPERFICIAL FEMORAL VEIN: Right SFV: Unremarkable. Left SFV: Unremarkable. POPLITEAL VEIN: Right Popliteal: Unremarkable. Left Popliteal: Unremarkable. POSTERIOR TIBIAL VEIN: Right PTV: Unremarkable. Left PTV: Unremarkable. OTHER FINDINGS: None. IMPRESSION: No evidence of deep venous thrombosis.
[2017-02-12] MEDS: Bethanechol 50 MG TAB PO SCH ×3 (08:34→17:06)
[2017-02-12] MEDS: Benzocaine/Menthol (Cepacol) Lozenge PO PRN (17:11)
[2017-02-13] MEDS: LEVODOPA PO SCH ×3 (04:58→20:55)
[2017-02-13] MEDS: CARBIDOPA PO SCH ×3 (04:58→20:55)
[2017-02-13] MEDS: Bethanechol 50 MG TAB PO SCH ×3 (08:05→16:22)
--- NOTE | 2017-02-13 20:48 | CP.PCM.PN ---
Subjective - Date & Time of Evaluation Date of Evaluation: 02/13/17 Time of Evaluation: 22:22 - Subjective Subjective: Above noted Objective - Vital Signs/Intake and Output Vital Signs (last 24 hours): Temp Pulse Resp BP Pulse Ox 97.5 F L 65 20 136/73 94 L 02/13/17 16:02 02/13/17 16:02 02/13/17 16:02 02/13/17 16:02 02/13/17 16:02 - Medications Medications: Current Medications Acetaminophen (Tylenol 325mg Tab) 650 mg PO Q6 PRN PRN Reason: Pain, Mild (1-3) Amantadine HCl (Amantadine 100 Mg Cap) 100 mg PO BID [facility] Last Admin: 02/13/17 16:22 Dose: 100 mg Benzocaine/Menthol (Cepacol Sore Throat) 1 morro PO TID PRN PRN Reason: Sore Throat Last Admin: 02/12/17 17:11 Dose: 1 morro Bethanechol Chloride (Urecholine) 50 mg PO TID [facility] Last Admin: 02/13/17 16:22 Dose: 50 mg Carbidopa/Levodopa (Rytary Er 48.75 Mg-195 Mg Cap) 1 cap PO TID@0500,1300,2100 [facility] Last Admin: 02/13/17 12:17 Dose: 1 cap Famotidine (Pepcid) 40 mg PO HS [facility] Last Admin: 02/12/17 21:41 Dose: 40 mg Heparin Sodium (Porcine) (Heparin) 5,000 units SC Q8 [facility]U PRN Reason: Protocol Last Admin: 02/13/17 18:30 Dose: 5,000 units Lactated Ringer's (Lactated Ringer's) 1,000 mls @ 100 mls/hr IV .Q10H [facility] Last Admin: 02/12/17 00:30 Dose: Not Given - Labs Labs: 02/10/17 04:25 02/10/17 04:25 PT 12.6 Seconds (9.8-13.1) 02/07/17 11:50 INR 1.1 (0.9-1.2) 02/07/17 11:50 APTT 34.2 Seconds (25.6-37.1) 02/07/17 11:50 - Respiratory Exam Respiratory Exam: NORMAL BREATHING PATTERN - Cardiovascular Exam Cardiovascular Exam: REGULAR RHYTHM - GI/Abdominal Exam GI & Abdominal Exam: Normal Bowel Sounds Assessment and Plan - Assessment and Plan (Free Text) Assessment: Bradycardia Hypotenson chronic A-fib AV dissociation?? CT scan dilated aorta with ulceration?? Sepsis ? Autonomic dysfunction? PTE? D-dimer and Lactate elevated IVF Cultures ABX Cardiology TSH TFT wnl Disposition?? awaiting transfer to [place] Pt has medical decision making capacity but is financially vulnerable and benefits from legal guardianship Court and Social service involved Pt is [place] WWII MRSA Nares Bactroban Recuurent c-diff d/c Vanco / Flagyl ?? Urine CS psuedomonas ? UA wnl Lethargy?? improved Baclofen d/c Infection resolved Reconsult Neuro R shoulder pain Dec ROM xrays subluxation Ultram PRN PT Gastroentritis? 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
[2017-02-14] MEDS: LEVODOPA PO SCH ×3 (04:34→21:55)
[2017-02-14] MEDS: CARBIDOPA PO SCH ×3 (04:34→21:55)
[2017-02-14] MEDS: Bethanechol 50 MG TAB PO SCH ×3 (08:48→17:56)
--- NOTE | 2017-02-14 18:52 | CP.PCM.PN ---
Subjective - Date & Time of Evaluation Date of Evaluation: 02/14/17 Time of Evaluation: 22:22 - Subjective Subjective: Above noted Objective - Vital Signs/Intake and Output Vital Signs (last 24 hours): Temp Pulse Resp BP Pulse Ox 98.1 F 74 20 107/67 95 02/14/17 15:58 02/14/17 15:58 02/14/17 15:58 02/14/17 15:58 02/14/17 15:58 - Medications Medications: Current Medications Acetaminophen (Tylenol 325mg Tab) 650 mg PO Q6 PRN PRN Reason: Pain, Mild (1-3) Amantadine HCl (Amantadine 100 Mg Cap) 100 mg PO BID [facility] Last Admin: 02/14/17 17:56 Dose: 100 mg Benzocaine/Menthol (Cepacol Sore Throat) 1 morro PO TID PRN PRN Reason: Sore Throat Last Admin: 02/12/17 17:11 Dose: 1 morro Bethanechol Chloride (Urecholine) 50 mg PO TID [facility] Last Admin: 02/14/17 17:56 Dose: 50 mg Carbidopa/Levodopa (Rytary Er 48.75 Mg-195 Mg Cap) 1 cap PO TID@0500,1300,2100 [facility] Last Admin: 02/14/17 12:51 Dose: 1 cap Famotidine (Pepcid) 40 mg PO HS [facility] Last Admin: 02/13/17 21:00 Dose: 40 mg Heparin Sodium (Porcine) (Heparin) 5,000 units SC Q8 TU PRN Reason: Protocol Last Admin: 02/14/17 17:56 Dose: 5,000 units - Labs Labs: 02/10/17 04:25 02/10/17 04:25 PT 12.6 Seconds (9.8-13.1) 02/07/17 11:50 INR 1.1 (0.9-1.2) 02/07/17 11:50 APTT 34.2 Seconds (25.6-37.1) 02/07/17 11:50 - Respiratory Exam Respiratory Exam: NORMAL BREATHING PATTERN - Cardiovascular Exam Cardiovascular Exam: Tachycardia - GI/Abdominal Exam GI & Abdominal Exam: Normal Bowel Sounds Assessment and Plan - Assessment and Plan (Free Text) Assessment: Bradycardia Hypotenson chronic A-fib AV dissociation?? CT scan dilated aorta with ulceration?? Sepsis ? Autonomic dysfunction? PTE? D-dimer and Lactate elevated IVF Cultures ABX As per Cardiology TSH TFT wnl Disposition?? awaiting transfer to [place] Pt has medical decision making capacity but is financially vulnerable and benefits from legal guardianship Court and Social service involved Pt is [place] MRSA Nares Bactroban Recuurent c-diff d/c Vanco / Flagyl ?? Urine CS psuedomonas ? UA wnl Lethargy?? improved Baclofen d/c Infection resolved Reconsult Neuro R shoulder pain Dec ROM xrays subluxation Ultram PRN PT Gastroentritis? 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
[2017-02-15] MEDS: CARBIDOPA PO SCH ×3 (05:40→21:39)
[2017-02-15] MEDS: LEVODOPA PO SCH ×3 (05:40→21:39)
[2017-02-15] MEDS: Bethanechol 50 MG TAB PO SCH ×3 (09:11→16:13)
--- NOTE | 2017-02-15 20:51 | CP.PCM.PN ---
Subjective - Date & Time of Evaluation Date of Evaluation: 02/15/17 Time of Evaluation: 22:22 - Subjective Subjective: Sleeping Objective - Vital Signs/Intake and Output Vital Signs (last 24 hours): Temp Pulse Resp BP Pulse Ox 97.4 F L 70 20 107/64 97 02/15/17 15:47 02/15/17 15:47 02/15/17 15:47 02/15/17 15:47 02/15/17 15:47 - Medications Medications: Current Medications Acetaminophen (Tylenol 325mg Tab) 650 mg PO Q6 PRN PRN Reason: Pain, Mild (1-3) Amantadine HCl (Amantadine 100 Mg Cap) 100 mg PO BID [facility] Last Admin: 02/15/17 16:13 Dose: 100 mg Benzocaine/Menthol (Cepacol Sore Throat) 1 morro PO TID PRN PRN Reason: Sore Throat Last Admin: 02/12/17 17:11 Dose: 1 morro Bethanechol Chloride (Urecholine) 50 mg PO TID [facility] Last Admin: 02/15/17 16:13 Dose: 50 mg Carbidopa/Levodopa (Rytary Er 48.75 Mg-195 Mg Cap) 1 cap PO TID@0500,1300,2100 [facility] Last Admin: 02/15/17 12:27 Dose: 1 cap Famotidine (Pepcid) 40 mg PO HS [facility] Last Admin: 02/14/17 21:54 Dose: 40 mg Heparin Sodium (Porcine) (Heparin) 5,000 units SC Q8 TU PRN Reason: Protocol Last Admin: 02/15/17 16:13 Dose: 5,000 units - Labs Labs: 02/10/17 04:25 02/10/17 04:25 PT 12.6 Seconds (9.8-13.1) 02/07/17 11:50 INR 1.1 (0.9-1.2) 02/07/17 11:50 APTT 34.2 Seconds (25.6-37.1) 02/07/17 11:50 - Respiratory Exam Respiratory Exam: NORMAL BREATHING PATTERN - Cardiovascular Exam Cardiovascular Exam: REGULAR RHYTHM - GI/Abdominal Exam GI & Abdominal Exam: Normal Bowel Sounds Assessment and Plan - Assessment and Plan (Free Text) Assessment: S/P Bradycardia Hypotenson chronic A-fib AV dissociation?? CT scan dilated aorta with ulceration?? Sepsis ? Autonomic dysfunction? D-dimer and Lactate elevated IVF Cultures ABX As per Cardiology Disposition?? awaiting transfer to [place] Pt has medical decision making capacity but is financially vulnerable and benefits from legal guardianship Court and Social service involved Pt is [place] MRSA Nares Bactroban Recuurent c-diff d/c Vanco / Flagyl ?? Urine CS psuedomonas ? UA wnl Lethargy?? improved Baclofen d/c Infection resolved Reconsult Neuro R shoulder pain Dec ROM xrays subluxation Ultram PRN PT Gastroentritis? 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
[2017-02-16] MEDS: CARBIDOPA PO SCH ×3 (04:57→21:06)
[2017-02-16] MEDS: LEVODOPA PO SCH ×3 (04:57→21:06)
[2017-02-16] MEDS: Bethanechol 50 MG TAB PO SCH ×3 (08:29→17:04)
[2017-02-16] MEDS: Benzocaine/Menthol (Cepacol) Lozenge PO PRN (21:05)
--- NOTE | 2017-02-16 22:42 | CP.PCM.PN ---
Subjective - Date & Time of Evaluation Date of Evaluation: 02/16/17 Time of Evaluation: 22:22 - Subjective Subjective: Above noted Objective - Vital Signs/Intake and Output Vital Signs (last 24 hours): Temp Pulse Resp BP Pulse Ox 97.5 F L 63 20 149/80 96 02/16/17 16:10 02/16/17 16:10 02/16/17 16:10 02/16/17 16:10 02/16/17 16:10 - Medications Medications: Current Medications Acetaminophen (Tylenol 325mg Tab) 650 mg PO Q6 PRN PRN Reason: Pain, Mild (1-3) Last Admin: 02/16/17 08:52 Dose: 650 mg Amantadine HCl (Amantadine 100 Mg Cap) 100 mg PO BID [facility] Last Admin: 02/16/17 17:04 Dose: 100 mg Benzocaine/Menthol (Cepacol Sore Throat) 1 morro PO TID PRN PRN Reason: Sore Throat Last Admin: 02/16/17 21:05 Dose: 1 morro Bethanechol Chloride (Urecholine) 50 mg PO TID [facility] Last Admin: 02/16/17 17:04 Dose: 50 mg Carbidopa/Levodopa (Rytary Er 48.75 Mg-195 Mg Cap) 1 cap PO TID@0500,1300,2100 [facility] Last Admin: 02/16/17 21:06 Dose: 1 cap Famotidine (Pepcid) 40 mg PO HS [facility] Last Admin: 02/16/17 21:10 Dose: 40 mg Heparin Sodium (Porcine) (Heparin) 5,000 units SC Q8 TU PRN Reason: Protocol Last Admin: 02/16/17 17:06 Dose: 5,000 units - Labs Labs: 02/10/17 04:25 02/10/17 04:25 PT 12.6 Seconds (9.8-13.1) 02/07/17 11:50 INR 1.1 (0.9-1.2) 02/07/17 11:50 APTT 34.2 Seconds (25.6-37.1) 02/07/17 11:50 Assessment and Plan - Assessment and Plan (Free Text) Assessment: S/P Bradycardia Hypotenson chronic A-fib AV dissociation?? CT scan dilated aorta with ulceration?? Sepsis ? Autonomic dysfunction? D-dimer and Lactate elevated IVF Cultures ABX As per Cardiology Disposition?? awaiting transfer to [place] Pt has medical decision making capacity but is financially vulnerable and benefits from legal guardianship Court and Social service involved Pt is [place] MRSA Nares Bactroban Recuurent c-diff d/c Vanco / Flagyl ?? Urine CS psuedomonas ? UA wnl Lethargy?? improved Baclofen d/c Infection resolved Reconsult Neuro R shoulder pain Dec ROM xrays subluxation Ultram PRN PT Gastroentritis? 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
[2017-02-17] MEDS: LEVODOPA PO SCH ×3 (05:57→21:30)
[2017-02-17] MEDS: CARBIDOPA PO SCH ×3 (05:57→21:30)
[2017-02-17] MEDS: Bethanechol 50 MG TAB PO SCH ×3 (08:15→17:01)
--- NOTE | 2017-02-17 20:20 | CP.PCM.PN ---
Subjective - Date & Time of Evaluation Date of Evaluation: 02/17/17 Time of Evaluation: 22:22 - Subjective Subjective: Above noted Objective - Vital Signs/Intake and Output Vital Signs (last 24 hours): Temp Pulse Resp BP Pulse Ox 97.6 F 76 20 135/69 98 02/17/17 16:06 02/17/17 16:06 02/17/17 16:06 02/17/17 16:06 02/17/17 16:06 - Medications Medications: Current Medications Acetaminophen (Tylenol 325mg Tab) 650 mg PO Q6 PRN PRN Reason: Pain, Mild (1-3) Last Admin: 02/17/17 09:24 Dose: 650 mg Amantadine HCl (Amantadine 100 Mg Cap) 100 mg PO BID [facility] Last Admin: 02/17/17 17:01 Dose: 100 mg Benzocaine/Menthol (Cepacol Sore Throat) 1 morro PO TID PRN PRN Reason: Sore Throat Last Admin: 02/16/17 21:05 Dose: 1 morro Bethanechol Chloride (Urecholine) 50 mg PO TID [facility] Last Admin: 02/17/17 17:01 Dose: 50 mg Carbidopa/Levodopa (Rytary Er 48.75 Mg-195 Mg Cap) 1 cap PO TID@0500,1300,2100 [facility] Last Admin: 02/17/17 13:19 Dose: 1 cap Famotidine (Pepcid) 40 mg PO HS [facility] Last Admin: 02/16/17 21:10 Dose: 40 mg Heparin Sodium (Porcine) (Heparin) 5,000 units SC Q8 [facility] PRN Reason: Protocol Last Admin: 02/17/17 17:03 Dose: 5,000 units - Labs Labs: 02/10/17 04:25 02/10/17 04:25 PT 12.6 Seconds (9.8-13.1) 02/07/17 11:50 INR 1.1 (0.9-1.2) 02/07/17 11:50 APTT 34.2 Seconds (25.6-37.1) 02/07/17 11:50 - Respiratory Exam Respiratory Exam: NORMAL BREATHING PATTERN - Cardiovascular Exam Cardiovascular Exam: REGULAR RHYTHM - GI/Abdominal Exam GI & Abdominal Exam: Normal Bowel Sounds Assessment and Plan - Assessment and Plan (Free Text) Assessment: S/P Bradycardia Hypotenson chronic A-fib AV dissociation?? CT scan dilated aorta with ulceration?? Sepsis ? Autonomic dysfunction? D-dimer and Lactate elevated IVF Cultures ABX As per Cardiology Disposition?? awaiting transfer to [place] Pt has medical decision making capacity but is financially vulnerable and benefits from legal guardianship Court and Social service involved Pt is [place] MRSA Nares Bactroban Recuurent c-diff d/c Vanco / Flagyl ?? Urine CS psuedomonas ? UA wnl Lethargy?? improved Baclofen d/c Infection resolved Reconsult Neuro R shoulder pain Dec ROM xrays subluxation Ultram PRN PT Gastroentritis? 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
[2017-02-18] MEDS: LEVODOPA PO SCH ×3 (04:34→21:23)
[2017-02-18] MEDS: CARBIDOPA PO SCH ×3 (04:34→21:23)
[2017-02-18] MEDS: Bethanechol 50 MG TAB PO SCH ×3 (09:00→16:10)
--- NOTE | 2017-02-18 20:21 | CP.PCM.PN ---
Subjective - Date & Time of Evaluation Date of Evaluation: 02/18/17 Time of Evaluation: 22:22 - Subjective Subjective: Above noted Objective - Vital Signs/Intake and Output Vital Signs (last 24 hours): Temp Pulse Resp BP Pulse Ox 97.7 F 73 18 148/63 100 02/18/17 16:08 02/18/17 16:08 02/18/17 16:08 02/18/17 16:08 02/18/17 16:08 - Medications Medications: Current Medications Acetaminophen (Tylenol 325mg Tab) 650 mg PO Q6 PRN PRN Reason: Pain, Mild (1-3) Last Admin: 02/17/17 09:24 Dose: 650 mg Amantadine HCl (Amantadine 100 Mg Cap) 100 mg PO BID [facility] Last Admin: 02/18/17 16:10 Dose: 100 mg Benzocaine/Menthol (Cepacol Sore Throat) 1 morro PO TID PRN PRN Reason: Sore Throat Last Admin: 02/16/17 21:05 Dose: 1 morro Bethanechol Chloride (Urecholine) 50 mg PO TID [facility] Last Admin: 02/18/17 16:10 Dose: 50 mg Carbidopa/Levodopa (Rytary Er 48.75 Mg-195 Mg Cap) 1 cap PO TID@0500,1300,2100 [facility] Last Admin: 02/18/17 12:28 Dose: 1 cap Famotidine (Pepcid) 40 mg PO HS [facility] Last Admin: 02/17/17 21:30 Dose: 40 mg Heparin Sodium (Porcine) (Heparin) 5,000 units SC Q8 [facility] PRN Reason: Protocol Last Admin: 02/18/17 16:09 Dose: 5,000 units - Labs Labs: 02/10/17 04:25 02/10/17 04:25 PT 12.6 Seconds (9.8-13.1) 02/07/17 11:50 INR 1.1 (0.9-1.2) 02/07/17 11:50 APTT 34.2 Seconds (25.6-37.1) 02/07/17 11:50 - Respiratory Exam Respiratory Exam: NORMAL BREATHING PATTERN - Cardiovascular Exam Cardiovascular Exam: REGULAR RHYTHM - GI/Abdominal Exam GI & Abdominal Exam: Normal Bowel Sounds Assessment and Plan - Assessment and Plan (Free Text) Assessment: S/P Bradycardia Hypotenson chronic A-fib AV dissociation?? CT scan dilated aorta with ulceration?? Sepsis ? Autonomic dysfunction? D-dimer and Lactate elevated IVF Cultures ABX As per Cardiology Disposition?? awaiting transfer to [place] Pt has medical decision making capacity but is financially vulnerable and benefits from legal guardianship Court and Social service involved Pt is [place] MRSA Nares Bactroban Recuurent c-diff d/c Vanco / Flagyl ?? Urine CS psuedomonas ? UA wnl Lethargy?? improved Baclofen d/c Infection resolved Reconsult Neuro R shoulder pain Dec ROM xrays subluxation Ultram PRN PT Gastroentritis? 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
[2017-02-19] MEDS: CARBIDOPA PO SCH ×3 (04:51→21:20)
[2017-02-19] MEDS: LEVODOPA PO SCH ×3 (04:51→21:20)
[2017-02-19] MEDS: Bethanechol 50 MG TAB PO SCH ×3 (10:56→19:53)
--- NOTE | 2017-02-19 17:35 | CP.PCM.PN ---
Subjective - Date & Time of Evaluation Date of Evaluation: 02/19/17 Time of Evaluation: 22:22 - Subjective Subjective: Doing well eating Objective - Vital Signs/Intake and Output Vital Signs (last 24 hours): Temp Pulse Resp BP Pulse Ox 98.2 F 97 H 20 111/52 L 97 02/19/17 16:25 02/19/17 16:25 02/19/17 16:25 02/19/17 16:25 02/19/17 16:25 - Medications Medications: Current Medications Acetaminophen (Tylenol 325mg Tab) 650 mg PO Q6 PRN PRN Reason: Pain, Mild (1-3) Last Admin: 02/17/17 09:24 Dose: 650 mg Amantadine HCl (Amantadine 100 Mg Cap) 100 mg PO BID [facility] Last Admin: 02/19/17 10:55 Dose: 100 mg Benzocaine/Menthol (Cepacol Sore Throat) 1 morro PO TID PRN PRN Reason: Sore Throat Last Admin: 02/16/17 21:05 Dose: 1 morro Bethanechol Chloride (Urecholine) 50 mg PO TID [facility] Last Admin: 02/19/17 14:04 Dose: 50 mg Carbidopa/Levodopa (Rytary Er 48.75 Mg-195 Mg Cap) 1 cap PO TID@0500,1300,2100 [facility] Last Admin: 02/19/17 14:03 Dose: 1 cap Famotidine (Pepcid) 40 mg PO HS [facility] Last Admin: 02/18/17 21:23 Dose: 40 mg Heparin Sodium (Porcine) (Heparin) 5,000 units SC Q8 TU PRN Reason: Protocol Last Admin: 02/19/17 10:55 Dose: 5,000 units - Labs Labs: 02/10/17 04:25 02/10/17 04:25 PT 12.6 Seconds (9.8-13.1) 02/07/17 11:50 INR 1.1 (0.9-1.2) 02/07/17 11:50 APTT 34.2 Seconds (25.6-37.1) 02/07/17 11:50 - Respiratory Exam Respiratory Exam: NORMAL BREATHING PATTERN - Cardiovascular Exam Cardiovascular Exam: REGULAR RHYTHM - GI/Abdominal Exam GI & Abdominal Exam: Normal Bowel Sounds Assessment and Plan - Assessment and Plan (Free Text) Assessment: S/P Bradycardia Hypotenson chronic A-fib AV dissociation?? CT scan dilated aorta with ulceration?? Sepsis ? Autonomic dysfunction? D-dimer and Lactate elevated IVF Cultures ABX As per Cardiology Disposition?? awaiting transfer to [place] Pt has medical decision making capacity but is financially vulnerable and benefits from legal guardianship Court and Social service involved Pt is WW[place] MRSA Nares Bactroban Recuurent c-diff d/c Vanco / Flagyl ?? Urine CS psuedomonas ? UA wnl Lethargy?? improved Baclofen d/c Infection resolved Reconsult Neuro R shoulder pain Dec ROM xrays subluxation Ultram PRN PT Gastroentritis? 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
[2017-02-20] MEDS: CARBIDOPA PO SCH ×3 (04:31→21:44)
[2017-02-20] MEDS: LEVODOPA PO SCH ×3 (04:31→21:44)
[2017-02-20] MEDS: Bethanechol 50 MG TAB PO SCH ×3 (08:44→17:38)
--- NOTE | 2017-02-20 20:06 | CP.PCM.PN ---
Subjective - Date & Time of Evaluation Date of Evaluation: 02/20/17 Time of Evaluation: 22:22 - Subjective Subjective: Above noted Objective - Vital Signs/Intake and Output Vital Signs (last 24 hours): Temp Pulse Resp BP Pulse Ox 97.5 F L 95 H 18 120/74 97 02/20/17 16:02 02/20/17 16:02 02/20/17 16:02 02/20/17 16:02 02/20/17 16:02 - Medications Medications: Current Medications Acetaminophen (Tylenol 325mg Tab) 650 mg PO Q6 PRN PRN Reason: Pain, Mild (1-3) Last Admin: 02/17/17 09:24 Dose: 650 mg Amantadine HCl (Amantadine 100 Mg Cap) 100 mg PO BID [facility] Last Admin: 02/20/17 17:38 Dose: 100 mg Benzocaine/Menthol (Cepacol Sore Throat) 1 morro PO TID PRN PRN Reason: Sore Throat Last Admin: 02/16/17 21:05 Dose: 1 morro Bethanechol Chloride (Urecholine) 50 mg PO TID [facility] Last Admin: 02/20/17 17:38 Dose: 50 mg Carbidopa/Levodopa (Rytary Er 48.75 Mg-195 Mg Cap) 1 cap PO TID@0500,1300,2100 [facility] Last Admin: 02/20/17 12:55 Dose: 1 cap Famotidine (Pepcid) 40 mg PO HS [facility] Last Admin: 02/19/17 21:20 Dose: 40 mg Heparin Sodium (Porcine) (Heparin) 5,000 units SC Q8 [facility] PRN Reason: Protocol Last Admin: 02/20/17 17:38 Dose: 5,000 units - Labs Labs: 02/10/17 04:25 02/10/17 04:25 PT 12.6 Seconds (9.8-13.1) 02/07/17 11:50 INR 1.1 (0.9-1.2) 02/07/17 11:50 APTT 34.2 Seconds (25.6-37.1) 02/07/17 11:50 - Respiratory Exam Respiratory Exam: Rhonchi, NORMAL BREATHING PATTERN - Cardiovascular Exam Cardiovascular Exam: REGULAR RHYTHM - GI/Abdominal Exam GI & Abdominal Exam: Normal Bowel Sounds Assessment and Plan - Assessment and Plan (Free Text) Assessment: S/P Bradycardia Hypotenson chronic A-fib AV dissociation?? CT scan dilated aorta with ulceration?? Sepsis ? Autonomic dysfunction? D-dimer and Lactate elevated IVF Cultures ABX As per Cardiology Disposition?? awaiting transfer to [place] Pt has medical decision making capacity but is financially vulnerable and benefits from legal guardianship Court and Social service involved Pt is [place] MRSA Nares Bactroban Recuurent c-diff d/c Vanco / Flagyl ?? Urine CS psuedomonas ? UA wnl Lethargy?? improved Baclofen d/c Infection resolved Reconsult Neuro R shoulder pain Dec ROM xrays subluxation Ultram PRN PT Gastroentritis? 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
[2017-02-21] MEDS: LEVODOPA PO SCH ×3 (04:16→21:11)
[2017-02-21] MEDS: CARBIDOPA PO SCH ×3 (04:16→21:11)
[2017-02-21] MEDS: Bethanechol 50 MG TAB PO SCH ×3 (08:36→16:03)
--- NOTE | 2017-02-21 19:05 | CP.PCM.PN ---
Subjective - Date & Time of Evaluation Date of Evaluation: 02/21/17 Time of Evaluation: 22:22 - Subjective Subjective: Above noted Objective - Vital Signs/Intake and Output Vital Signs (last 24 hours): Temp Pulse Resp BP Pulse Ox 97.3 F L 70 20 109/63 98 02/21/17 16:20 02/21/17 16:20 02/21/17 16:20 02/21/17 16:20 02/21/17 16:20 - Medications Medications: Current Medications Acetaminophen (Tylenol 325mg Tab) 650 mg PO Q6 PRN PRN Reason: Pain, Mild (1-3) Last Admin: 02/17/17 09:24 Dose: 650 mg Amantadine HCl (Amantadine 100 Mg Cap) 100 mg PO BID [facility] Last Admin: 02/21/17 16:03 Dose: 100 mg Benzocaine/Menthol (Cepacol Sore Throat) 1 morro PO TID PRN PRN Reason: Sore Throat Last Admin: 02/16/17 21:05 Dose: 1 morro Bethanechol Chloride (Urecholine) 50 mg PO TID [facility] Last Admin: 02/21/17 16:03 Dose: 50 mg Carbidopa/Levodopa (Rytary Er 48.75 Mg-195 Mg Cap) 1 cap PO TID@0500,1300,2100 [facility] Last Admin: 02/21/17 13:08 Dose: 1 cap Famotidine (Pepcid) 40 mg PO HS [facility] Last Admin: 02/20/17 21:44 Dose: 40 mg Heparin Sodium (Porcine) (Heparin) 5,000 units SC Q8 [facility] PRN Reason: Protocol Last Admin: 02/21/17 16:03 Dose: 5,000 units - Labs Labs: 02/10/17 04:25 02/10/17 04:25 PT 12.6 Seconds (9.8-13.1) 02/07/17 11:50 INR 1.1 (0.9-1.2) 02/07/17 11:50 APTT 34.2 Seconds (25.6-37.1) 02/07/17 11:50 - Respiratory Exam Respiratory Exam: Wheezes - Cardiovascular Exam Cardiovascular Exam: REGULAR RHYTHM - GI/Abdominal Exam GI & Abdominal Exam: Normal Bowel Sounds Assessment and Plan - Assessment and Plan (Free Text) Assessment: S/P Bradycardia Hypotenson chronic A-fib AV dissociation?? CT scan dilated aorta with ulceration?? Sepsis ? Autonomic dysfunction? D-dimer and Lactate elevated IVF Cultures ABX As per Cardiology Disposition?? awaiting transfer to [place] Pt has medical decision making capacity but is financially vulnerable and benefits from legal guardianship Court and Social service involved Pt is [place] MRSA Nares Bactroban Recuurent c-diff d/c Vanco / Flagyl ?? Urine CS psuedomonas ? UA wnl Lethargy?? improved Baclofen d/c Infection resolved Reconsult Neuro R shoulder pain Dec ROM xrays subluxation Ultram PRN PT Gastroentritis? 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
[2017-02-22] MEDS: CARBIDOPA PO SCH ×3 (05:33→22:40)
[2017-02-22] MEDS: LEVODOPA PO SCH ×3 (05:33→22:40)
[2017-02-22] MEDS: Bethanechol 50 MG TAB PO SCH ×3 (08:14→16:08)
--- NOTE | 2017-02-22 20:29 | CP.PCM.PN ---
Subjective - Date & Time of Evaluation Date of Evaluation: 02/22/17 Time of Evaluation: 22:22 - Subjective Subjective: No change in status Objective - Vital Signs/Intake and Output Vital Signs (last 24 hours): Temp Pulse Resp BP Pulse Ox 97.8 F 72 18 143/79 98 02/22/17 16:14 02/22/17 16:14 02/22/17 16:14 02/22/17 16:14 02/22/17 16:14 - Medications Medications: Current Medications Acetaminophen (Tylenol 325mg Tab) 650 mg PO Q6 PRN PRN Reason: Pain, Mild (1-3) Last Admin: 02/17/17 09:24 Dose: 650 mg Amantadine HCl (Amantadine 100 Mg Cap) 100 mg PO BID [facility] Last Admin: 02/22/17 16:08 Dose: 100 mg Benzocaine/Menthol (Cepacol Sore Throat) 1 morro PO TID PRN PRN Reason: Sore Throat Last Admin: 02/16/17 21:05 Dose: 1 morro Bethanechol Chloride (Urecholine) 50 mg PO TID [facility] Last Admin: 02/22/17 16:08 Dose: 50 mg Carbidopa/Levodopa (Rytary Er 48.75 Mg-195 Mg Cap) 1 cap PO TID@0500,1300,2100 [facility] Last Admin: 02/22/17 12:44 Dose: 1 cap Famotidine (Pepcid) 40 mg PO HS [facility] Last Admin: 02/21/17 21:11 Dose: 40 mg Heparin Sodium (Porcine) (Heparin) 5,000 units SC Q8 [facility] PRN Reason: Protocol Last Admin: 02/22/17 16:08 Dose: 5,000 units - Labs Labs: 02/10/17 04:25 02/10/17 04:25 PT 12.6 Seconds (9.8-13.1) 02/07/17 11:50 INR 1.1 (0.9-1.2) 02/07/17 11:50 APTT 34.2 Seconds (25.6-37.1) 02/07/17 11:50 - Respiratory Exam Respiratory Exam: Wheezes - Cardiovascular Exam Cardiovascular Exam: REGULAR RHYTHM - GI/Abdominal Exam GI & Abdominal Exam: Normal Bowel Sounds Assessment and Plan - Assessment and Plan (Free Text) Assessment: S/P Bradycardia Hypotenson chronic A-fib Sepsis ? Autonomic dysfunction? D-dimer and Lactate elevated As per Cardiology Disposition?? awaiting transfer to [place] Pt has medical decision making capacity but is financially vulnerable and benefits from legal guardianship Court and Social service involved Pt is [place] R shoulder pain Dec ROM xrays subluxation Ultram PRN PT Recuurent c-diff Gastroentritis? resolved LGI bleed Thrombocytopenia Thrombocytopenia chronic Decubitus ulcer buttocks DVT prophylaxis SCD (no Lovenox due to thrombocytopenia) S/P UTI Enterrococus S/P Urinary retention S/P UTI Proteus S/P Pnuemonia
[2017-02-23] MEDS: LEVODOPA PO SCH ×3 (05:08→21:08)
[2017-02-23] MEDS: CARBIDOPA PO SCH ×3 (05:08→21:08)
--- NOTE | 2017-02-23 08:25 | CP.PCM.PN ---
Subjective - Date & Time of Evaluation Date of Evaluation: 02/23/17 Time of Evaluation: 22:22 - Subjective Subjective: Above noted Objective - Vital Signs/Intake and Output Vital Signs (last 24 hours): Temp Pulse Resp BP Pulse Ox 97.4 F L 77 20 115/74 97 02/23/17 01:00 02/23/17 01:00 02/23/17 01:00 02/23/17 01:00 02/23/17 01:00 - Medications Medications: Current Medications Acetaminophen (Tylenol 325mg Tab) 650 mg PO Q6 PRN PRN Reason: Pain, Mild (1-3) Last Admin: 02/17/17 09:24 Dose: 650 mg Amantadine HCl (Amantadine 100 Mg Cap) 100 mg PO BID [facility] Last Admin: 02/22/17 16:08 Dose: 100 mg Benzocaine/Menthol (Cepacol Sore Throat) 1 morro PO TID PRN PRN Reason: Sore Throat Last Admin: 02/16/17 21:05 Dose: 1 morro Bethanechol Chloride (Urecholine) 50 mg PO TID [facility] Last Admin: 02/22/17 16:08 Dose: 50 mg Carbidopa/Levodopa (Rytary Er 48.75 Mg-195 Mg Cap) 1 cap PO TID@0500,1300,2100 [facility] Last Admin: 02/23/17 05:08 Dose: 1 cap Famotidine (Pepcid) 40 mg PO HS [facility] Last Admin: 02/22/17 22:40 Dose: 40 mg Heparin Sodium (Porcine) (Heparin) 5,000 units SC Q8 [facility] PRN Reason: Protocol Last Admin: 02/23/17 00:12 Dose: 5,000 units - Labs Labs: 02/10/17 04:25 02/10/17 04:25 PT 12.6 Seconds (9.8-13.1) 02/07/17 11:50 INR 1.1 (0.9-1.2) 02/07/17 11:50 APTT 34.2 Seconds (25.6-37.1) 02/07/17 11:50 - Respiratory Exam Respiratory Exam: NORMAL BREATHING PATTERN - Cardiovascular Exam Cardiovascular Exam: REGULAR RHYTHM - GI/Abdominal Exam GI & Abdominal Exam: Normal Bowel Sounds Assessment and Plan - Assessment and Plan (Free Text) Assessment: S/P Bradycardia Hypotenson chronic A-fib Sepsis ? Autonomic dysfunction? D-dimer and Lactate elevated As per Cardiology Disposition?? awaiting transfer to [place] Pt has medical decision making capacity but is financially vulnerable and benefits from legal guardianship Court and Social service involved Pt is [place] R shoulder pain Dec ROM xrays subluxation Ultram PRN PT Recuurent c-diff Gastroentritis? resolved LGI bleed Thrombocytopenia Thrombocytopenia chronic Decubitus ulcer buttocks DVT prophylaxis SCD (no Lovenox due to thrombocytopenia) S/P UTI Enterrococus S/P Urinary retention S/P UTI Proteus S/P Pnuemonia
[2017-02-23] MEDS: Bethanechol 50 MG TAB PO SCH ×3 (09:02→17:05)
[2017-02-24] MEDS: CARBIDOPA PO SCH ×3 (05:13→21:51)
[2017-02-24] MEDS: LEVODOPA PO SCH ×3 (05:13→21:51)
[2017-02-24] MEDS: Bethanechol 50 MG TAB PO SCH ×3 (09:14→16:11)
--- NOTE | 2017-02-24 19:22 | CP.PCM.PN ---
Subjective - Date & Time of Evaluation Date of Evaluation: 02/24/17 Time of Evaluation: 22:22 - Subjective Subjective: Above noted Objective - Vital Signs/Intake and Output Vital Signs (last 24 hours): Temp Pulse Resp BP Pulse Ox 98 F 58 L 20 109/62 97 02/24/17 15:52 02/24/17 15:52 02/24/17 15:52 02/24/17 15:52 02/24/17 15:52 - Medications Medications: Current Medications Acetaminophen (Tylenol 325mg Tab) 650 mg PO Q6 PRN PRN Reason: Pain, Mild (1-3) Last Admin: 02/17/17 09:24 Dose: 650 mg Amantadine HCl (Amantadine 100 Mg Cap) 100 mg PO BID [facility] Last Admin: 02/24/17 16:11 Dose: 100 mg Benzocaine/Menthol (Cepacol Sore Throat) 1 morro PO TID PRN PRN Reason: Sore Throat Last Admin: 02/16/17 21:05 Dose: 1 morro Bethanechol Chloride (Urecholine) 50 mg PO TID [facility] Last Admin: 02/24/17 16:11 Dose: 50 mg Carbidopa/Levodopa (Rytary Er 48.75 Mg-195 Mg Cap) 1 cap PO TID@0500,1300,2100 [facility] Last Admin: 02/24/17 12:53 Dose: 1 cap Famotidine (Pepcid) 40 mg PO HS [facility] Last Admin: 02/23/17 21:08 Dose: 40 mg Heparin Sodium (Porcine) (Heparin) 5,000 units SC Q8 TU PRN Reason: Protocol Last Admin: 02/24/17 16:12 Dose: 5,000 units - Labs Labs: 02/10/17 04:25 02/10/17 04:25 PT 12.6 Seconds (9.8-13.1) 02/07/17 11:50 INR 1.1 (0.9-1.2) 02/07/17 11:50 APTT 34.2 Seconds (25.6-37.1) 02/07/17 11:50 - Respiratory Exam Respiratory Exam: NORMAL BREATHING PATTERN - Cardiovascular Exam Cardiovascular Exam: REGULAR RHYTHM - GI/Abdominal Exam GI & Abdominal Exam: Normal Bowel Sounds Assessment and Plan - Assessment and Plan (Free Text) Assessment: S/P Bradycardia Hypotenson chronic A-fib Sepsis ? Autonomic dysfunction? D-dimer and Lactate elevated As per Cardiology Disposition?? [place] [facility] Pt has medical decision making capacity but is financially vulnerable and benefits from legal guardianship Court and Social service involved Pt is [place] WW[place] R shoulder pain Dec ROM xrays subluxation Ultram PRN PT Recuurent c-diff Gastroentritis? resolved LGI bleed Thrombocytopenia Thrombocytopenia chronic Decubitus ulcer buttocks DVT prophylaxis SCD (no Lovenox due to thrombocytopenia) S/P UTI Enterrococus S/P Urinary retention S/P UTI Proteus S/P Pnuemonia
[2017-02-25] MEDS: LEVODOPA PO SCH ×3 (05:24→21:18)
[2017-02-25] MEDS: CARBIDOPA PO SCH ×3 (05:24→21:18)
[2017-02-25] MEDS: Bethanechol 50 MG TAB PO SCH ×3 (09:09→16:15)
[2017-02-25] MEDS: Benzocaine/Menthol (Cepacol) Lozenge PO PRN (13:24)
--- NOTE | 2017-02-25 20:30 | CP.PCM.PN ---
Subjective - Date & Time of Evaluation Date of Evaluation: 02/25/17 Time of Evaluation: 22:22 - Subjective Subjective: Above noted Objective - Vital Signs/Intake and Output Vital Signs (last 24 hours): Temp Pulse Resp BP Pulse Ox 97.5 F L 79 20 106/67 100 02/25/17 16:12 02/25/17 16:12 02/25/17 16:12 02/25/17 16:12 02/25/17 16:12 - Medications Medications: Current Medications Acetaminophen (Tylenol 325mg Tab) 650 mg PO Q6 PRN PRN Reason: Pain, Mild (1-3) Last Admin: 02/17/17 09:24 Dose: 650 mg Amantadine HCl (Amantadine 100 Mg Cap) 100 mg PO BID [facility] Last Admin: 02/25/17 16:13 Dose: 100 mg Benzocaine/Menthol (Cepacol Sore Throat) 1 morro PO TID PRN PRN Reason: Sore Throat Last Admin: 02/25/17 13:24 Dose: 1 morro Bethanechol Chloride (Urecholine) 50 mg PO TID [facility] Last Admin: 02/25/17 16:15 Dose: 50 mg Carbidopa/Levodopa (Rytary Er 48.75 Mg-195 Mg Cap) 1 cap PO TID@0500,1300,2100 [facility] Last Admin: 02/25/17 13:19 Dose: 1 cap Docusate Sodium (Colace) 100 mg PO BID [facility] Last Admin: 02/25/17 16:13 Dose: 100 mg Famotidine (Pepcid) 40 mg PO HS [facility] Last Admin: 02/24/17 21:52 Dose: 40 mg Heparin Sodium (Porcine) (Heparin) 5,000 units SC Q8 [facility] PRN Reason: Protocol Last Admin: 02/25/17 16:14 Dose: 5,000 units - Labs Labs: 02/10/17 04:25 02/10/17 04:25 PT 12.6 Seconds (9.8-13.1) 02/07/17 11:50 INR 1.1 (0.9-1.2) 02/07/17 11:50 APTT 34.2 Seconds (25.6-37.1) 02/07/17 11:50 - Respiratory Exam Respiratory Exam: NORMAL BREATHING PATTERN - Cardiovascular Exam Cardiovascular Exam: REGULAR RHYTHM - GI/Abdominal Exam GI & Abdominal Exam: Normal Bowel Sounds Assessment and Plan - Assessment and Plan (Free Text) Assessment: S/P Bradycardia Hypotenson chronic A-fib Sepsis ? Autonomic dysfunction? D-dimer and Lactate elevated As per Cardiology Disposition?? awaiting transfer to [place] Pt has medical decision making capacity but is financially vulnerable and benefits from legal guardianship Court and Social service involved Pt is [place] WW[place] R shoulder pain Dec ROM xrays subluxation Ultram PRN PT Recuurent c-diff Gastroentritis? resolved LGI bleed Thrombocytopenia Thrombocytopenia chronic Decubitus ulcer buttocks DVT prophylaxis SCD (no Lovenox due to thrombocytopenia) S/P UTI Enterrococus S/P Urinary retention S/P UTI Proteus S/P Pnuemonia
[2017-02-26] MEDS: LEVODOPA PO SCH ×3 (05:14→21:38)
[2017-02-26] MEDS: CARBIDOPA PO SCH ×3 (05:14→21:38)
[2017-02-26] MEDS: Bethanechol 50 MG TAB PO SCH ×3 (09:00→17:32)
--- NOTE | 2017-02-26 17:39 | CP.PCM.PN ---
Subjective - Date & Time of Evaluation Date of Evaluation: 02/26/17 Time of Evaluation: 22:22 - Subjective Subjective: Doing well Objective - Vital Signs/Intake and Output Vital Signs (last 24 hours): Temp Pulse Resp BP Pulse Ox 98.2 F 69 20 109/64 100 02/26/17 16:19 02/26/17 16:19 02/26/17 16:19 02/26/17 16:19 02/26/17 16:19 - Medications Medications: Current Medications Acetaminophen (Tylenol 325mg Tab) 650 mg PO Q6 PRN PRN Reason: Pain, Mild (1-3) Last Admin: 02/17/17 09:24 Dose: 650 mg Amantadine HCl (Amantadine 100 Mg Cap) 100 mg PO BID [facility] Last Admin: 02/26/17 17:31 Dose: 100 mg Benzocaine/Menthol (Cepacol Sore Throat) 1 morro PO TID PRN PRN Reason: Sore Throat Last Admin: 02/25/17 13:24 Dose: 1 morro Bethanechol Chloride (Urecholine) 50 mg PO TID [facility] Last Admin: 02/26/17 17:32 Dose: 50 mg Carbidopa/Levodopa (Rytary Er 48.75 Mg-195 Mg Cap) 1 cap PO TID@0500,1300,2100 [facility] Last Admin: 02/26/17 15:17 Dose: 1 cap Docusate Sodium (Colace) 100 mg PO BID [facility] Last Admin: 02/26/17 17:31 Dose: 100 mg Famotidine (Pepcid) 40 mg PO HS [facility] Last Admin: 02/25/17 21:18 Dose: 40 mg Heparin Sodium (Porcine) (Heparin) 5,000 units SC Q8 [facility] PRN Reason: Protocol Last Admin: 02/26/17 17:32 Dose: 5,000 units - Labs Labs: 02/10/17 04:25 02/10/17 04:25 PT 12.6 Seconds (9.8-13.1) 02/07/17 11:50 INR 1.1 (0.9-1.2) 02/07/17 11:50 APTT 34.2 Seconds (25.6-37.1) 02/07/17 11:50 - Respiratory Exam Respiratory Exam: NORMAL BREATHING PATTERN - Cardiovascular Exam Cardiovascular Exam: Tachycardia - GI/Abdominal Exam GI & Abdominal Exam: Normal Bowel Sounds Assessment and Plan - Assessment and Plan (Free Text) Assessment: S/P Bradycardia Hypotenson chronic A-fib Sepsis ? Autonomic dysfunction? D-dimer and Lactate elevated As per Cardiology Disposition?? awaiting transfer to [place] Pt has medical decision making capacity but is financially vulnerable and benefits from legal guardianship Court and Social service involved Pt is [place] R shoulder pain Dec ROM xrays subluxation Ultram PRN PT Recuurent c-diff Gastroentritis? resolved LGI bleed Thrombocytopenia Thrombocytopenia chronic Decubitus ulcer buttocks DVT prophylaxis SCD (no Lovenox due to thrombocytopenia) S/P UTI Enterrococus S/P Urinary retention S/P UTI Proteus S/P Pnuemonia
[2017-02-27] MEDS: CARBIDOPA PO SCH ×3 (05:07→21:56)
[2017-02-27] MEDS: LEVODOPA PO SCH ×3 (05:07→21:56)
[2017-02-27] MEDS: Bethanechol 50 MG TAB PO SCH ×3 (08:21→16:45)
--- NOTE | 2017-02-27 16:18 | CP.PCM.PN ---
Subjective - Date & Time of Evaluation Date of Evaluation: 02/27/17 Time of Evaluation: 22:22 - Subjective Subjective: No change in status Objective - Vital Signs/Intake and Output Vital Signs (last 24 hours): Temp Pulse Resp BP Pulse Ox 97.5 F L 71 20 132/73 100 02/27/17 07:44 02/27/17 07:44 02/27/17 07:44 02/27/17 07:44 02/27/17 07:44 - Medications Medications: Current Medications Acetaminophen (Tylenol 325mg Tab) 650 mg PO Q6 PRN PRN Reason: Pain, Mild (1-3) Last Admin: 02/17/17 09:24 Dose: 650 mg Amantadine HCl (Amantadine 100 Mg Cap) 100 mg PO BID [facility] Last Admin: 02/27/17 08:21 Dose: 100 mg Benzocaine/Menthol (Cepacol Sore Throat) 1 morro PO TID PRN PRN Reason: Sore Throat Last Admin: 02/25/17 13:24 Dose: 1 morro Bethanechol Chloride (Urecholine) 50 mg PO TID [facility] Last Admin: 02/27/17 13:24 Dose: 50 mg Carbidopa/Levodopa (Rytary Er 48.75 Mg-195 Mg Cap) 1 cap PO TID@0500,1300,2100 [facility] Last Admin: 02/27/17 13:24 Dose: 1 cap Docusate Sodium (Colace) 100 mg PO BID [facility] Last Admin: 02/27/17 08:21 Dose: 100 mg Famotidine (Pepcid) 40 mg PO HS [facility] Last Admin: 02/26/17 21:38 Dose: 40 mg Heparin Sodium (Porcine) (Heparin) 5,000 units SC Q8 [facility] PRN Reason: Protocol Last Admin: 02/27/17 08:21 Dose: 5,000 units - Labs Labs: 02/10/17 04:25 02/10/17 04:25 PT 12.6 Seconds (9.8-13.1) 02/07/17 11:50 INR 1.1 (0.9-1.2) 02/07/17 11:50 APTT 34.2 Seconds (25.6-37.1) 02/07/17 11:50 - Respiratory Exam Respiratory Exam: NORMAL BREATHING PATTERN - Cardiovascular Exam Cardiovascular Exam: REGULAR RHYTHM - GI/Abdominal Exam GI & Abdominal Exam: Normal Bowel Sounds Assessment and Plan - Assessment and Plan (Free Text) Assessment: S/P Bradycardia Hypotenson chronic A-fib Sepsis ? Autonomic dysfunction? D-dimer and Lactate elevated As per Cardiology Disposition?? awaiting transfer to [place] Pt has medical decision making capacity but is financially vulnerable and benefits from legal guardianship Court and Social service involved Pt is [place] R shoulder pain Dec ROM xrays subluxation Ultram PRN PT Recuurent c-diff Gastroentritis? resolved LGI bleed Thrombocytopenia Thrombocytopenia chronic Decubitus ulcer buttocks DVT prophylaxis SCD (no Lovenox due to thrombocytopenia) S/P UTI Enterrococus S/P Urinary retention S/P UTI Proteus S/P Pnuemonia
[2017-02-28] MEDS: LEVODOPA PO SCH ×3 (05:10→21:11)
[2017-02-28] MEDS: CARBIDOPA PO SCH ×3 (05:10→21:11)
[2017-02-28] MEDS: Bethanechol 50 MG TAB PO SCH ×3 (08:32→16:08)
--- NOTE | 2017-02-28 13:33 | CP.PCM.PN ---
Subjective - Date & Time of Evaluation Date of Evaluation: 02/28/17 Time of Evaluation: 22:22 - Subjective Subjective: Above noted Objective - Vital Signs/Intake and Output Vital Signs (last 24 hours): Temp Pulse Resp BP Pulse Ox 98.2 F 83 20 116/57 L 96 02/28/17 08:20 02/28/17 08:20 02/28/17 08:20 02/28/17 08:20 02/28/17 08:20 - Medications Medications: Current Medications Acetaminophen (Tylenol 325mg Tab) 650 mg PO Q6 PRN PRN Reason: Pain, Mild (1-3) Last Admin: 02/17/17 09:24 Dose: 650 mg Amantadine HCl (Amantadine 100 Mg Cap) 100 mg PO BID [facility] Last Admin: 02/28/17 08:32 Dose: 100 mg Benzocaine/Menthol (Cepacol Sore Throat) 1 morro PO TID PRN PRN Reason: Sore Throat Last Admin: 02/25/17 13:24 Dose: 1 morro Bethanechol Chloride (Urecholine) 50 mg PO TID [facility] Last Admin: 02/28/17 12:29 Dose: 50 mg Carbidopa/Levodopa (Rytary Er 48.75 Mg-195 Mg Cap) 1 cap PO TID@0500,1300,2100 [facility] Last Admin: 02/28/17 12:29 Dose: 1 cap Docusate Sodium (Colace) 100 mg PO BID [facility] Last Admin: 02/28/17 08:32 Dose: 100 mg Famotidine (Pepcid) 40 mg PO HS [facility] Last Admin: 02/27/17 21:57 Dose: 40 mg Heparin Sodium (Porcine) (Heparin) 5,000 units SC Q8 [facility] PRN Reason: Protocol Last Admin: 02/28/17 08:33 Dose: 5,000 units - Labs Labs: 02/10/17 04:25 02/10/17 04:25 PT 12.6 Seconds (9.8-13.1) 02/07/17 11:50 INR 1.1 (0.9-1.2) 02/07/17 11:50 APTT 34.2 Seconds (25.6-37.1) 02/07/17 11:50 - Respiratory Exam Respiratory Exam: NORMAL BREATHING PATTERN - Cardiovascular Exam Cardiovascular Exam: Tachycardia - GI/Abdominal Exam GI & Abdominal Exam: Normal Bowel Sounds Assessment and Plan - Assessment and Plan (Free Text) Assessment: S/P Bradycardia Hypotenson chronic A-fib Sepsis ? Autonomic dysfunction? D-dimer and Lactate elevated As per Cardiology Disposition?? awaiting transfer to [place] Pt has medical decision making capacity but is financially vulnerable and benefits from legal guardianship Court and Social service involved Pt is [place] R shoulder pain Dec ROM xrays subluxation Ultram PRN PT Recuurent c-diff Gastroentritis? resolved LGI bleed Thrombocytopenia Thrombocytopenia chronic Decubitus ulcer buttocks DVT prophylaxis SCD (no Lovenox due to thrombocytopenia) S/P UTI Enterrococus S/P Urinary retention S/P UTI Proteus S/P Pnuemonia
[2017-03-01] MEDS: CARBIDOPA PO SCH ×3 (05:05→20:15)
[2017-03-01] MEDS: LEVODOPA PO SCH ×3 (05:05→20:15)
[2017-03-01] MEDS: Bethanechol 50 MG TAB PO SCH ×3 (08:46→16:03)
[2017-03-02] MEDS: CARBIDOPA PO SCH ×3 (04:40→20:56)
[2017-03-02] MEDS: LEVODOPA PO SCH ×3 (04:40→20:56)
[2017-03-02] MEDS: Bethanechol 50 MG TAB PO SCH ×3 (10:41→16:56)
[2017-03-03] MEDS: LEVODOPA PO SCH ×4 (04:22→21:17)
[2017-03-03] MEDS: CARBIDOPA PO SCH ×4 (04:22→21:17)
[2017-03-03] MEDS: Bethanechol 50 MG TAB PO SCH ×3 (08:36→16:26)
[2017-03-03 10:38] LABS: BASO # 0.1 K/uL (0.0-0.2); BASO % 1.1 % (0.0-2.0); EOS # 0.4 K/uL (0.0-0.7); EOS % 6.9 % (0.0-4.0); HEMOGLOBIN 14.4 g/dL (12.0-18.0); LYMPH # 1.7 K/uL (1.0-4.3); LYMPH % 33.1 % (20.0-40.0); MEAN CELL VOLUME 96.1 fl (80.0-94.0); MEAN CORPUSCULAR HEMOGLOBIN 31.7 pg (27.0-31.0); MEAN CORPUSCULAR HGB CONC 32.9 g/dL (33.0-37.0); MEAN PLATELET VOLUME 10.4 fl (7.2-11.7); MONO # 0.2 K/uL (0.0-0.8); MONO % 4.5 % (0.0-10.0); NEUT # 2.8 K/uL (1.8-7.0); NEUT % 54.4 % (50.0-75.0); RBC 4.56 Mil/uL (4.40-5.90); RED CELL DISTRIBUTION WIDTH 14.3 % (11.5-14.5); WHITE BLOOD COUNT 5.1 K/uL (4.8-10.8)
[2017-03-03 10:46] LABS: INR 1.1 (0.9-1.2); PARTIAL THROMBOPLASTIN TIME 41.2 Seconds (25.6-37.1); PROTHROMBIN TIME 11.7 Seconds (9.8-13.1)
[2017-03-03 10:48] LABS: ALB/GLOB RATIO 1.3 (1.0-2.1); ALBUMIN 4.5 g/dL (3.5-5.0); ALT/SGPT 19 U/L (21-72); AST/SGOT 28 U/L (17-59); BLOOD UREA NITROGEN 23 mg/dl (9-20); CALCIUM 9.8 mg/dL (8.4-10.2); GFR AFRICAN-AMERICAN > 60; GFR NON-AFRICAN AMERICAN > 60
[2017-03-03] MEDS: Aztreonam 1 GM in Sodium Chloride 0.9% 100 ML IVPB SCH ×2 (12:15→19:19)
--- NOTE | 2017-03-03 12:53 | CARD ---
APPROVED REPORT EKG Measurement Heart [id number] <Conclusion> Atrial fibrillation with slow ventricular response Abnormal ECG artefact present
--- NOTE | 2017-03-03 12:55 | CARD ---
APPROVED REPORT EKG Measurement Heart [id number] <Conclusion> Atrial fibrillation with premature ventricular or aberrantly conducted complexes Nonspecific ST abnormality Abnormal ECG excessive motion artefact to read correctly
--- NOTE | 2017-03-03 14:20 | PCM.RRTMUL ---
<Pascual Navas - Last Filed: 03/03/17 15:55> [facility]NIT [employer]UBING [employer]ER Nurse Assessment - Situation [facility] [employer] Responder Arrival Time:: 10:12 Location:: 6s Room Number:: 658 [facility] Reason for Call: Bradycardia, Hypotension [facility] Called By: RN - IV IV Inserted during [facility]NIT TUBING [facility]ER?: Yes IV Fluids Initiated During KNIT TUBING [facility]YER?: ns 1000cc New IV Insertion Tolerance:: Excellent - Respiratory Oxygen Delivery Method:: Room Air Received Nebulizer Treatments:: No Was the Patient Ventilated with Bag/Mask 100% O2?: No Secretions Suctioned?: No Was the Patient Intubated?: No Was the Patient Placed on a Ventilator?: No - Medication Medications Administered During [facility]NIT TUBING [facility]ER :: NSS - Diagnostic Test Ordered EKG:: Yes Chest X-Ray:: Yes CT Scan:: No - Stat Labs Ordered [facility] Stat Labs Ordered:: CBC, BMP, PT/PTT, TROPONIN, LACTIC ACID, BLOOD C&S X2 [facility] Other Labs Ordered:: urine culture, sputum culture, VGB CPR started during KNIT TUBING [facility]YER?: No - Vital Signs Blood Pressure:: 125/73 Pulse Rate:: 75 Respiratory Rate:: 17 Temperature:: 97.5 F Oxygen Saturation:: 100 - Oni Coma Scale Coma Scale Eye Opening:: Spontaneous Coma Scale Motor:: Obeys Commands Movement Coma Scale Verbal:: Confused/able to answer Coma Scale Total:: 14 - Sepsis Screen Part 1 Sepsis Screen Part 1: Hypotensive - Time [facility] TUB[facility]ER Ended Time [facility]NIT TUBING [facility]ER Ended:: 10:46 - Vital Signs at end of [facility]UBING [facility] Blood Pressure:: 85/40 Pulse Rate:: 67 Respiratory Rate:: 33 Temperature:: 97.5 F O2 Sat by Pulse Oximetry:: 100 - Recommendations 5) [facility] Level of Care Recommendations: Remain in current setting 6) Notifications: Attending Physician, Consultations, Family or Designated Caregiver I.Reason for [facility] [facility]ER - A) Acute Change in Patient: (Select all that apply): Acute change in heart rate less than 50 or greater than 120, Acute change in SBP below - A) Initial Vital Signs: Blood Pressure: 83/44 Pulse Rate: 49 Respiratory Rate: 18 Temperature: 97.5 F O2 Sat by Pulse Oximetry: 84 Finger Stick Blood Glucose: 117 - B) Neurological Status (Select all that apply): Alert, Responsive, Verbal, Follows Commands - Constitutional Appears: No Acute Distress - Head Head Exam: ATRAUMATIC, NORMOCEPHALIC - Eyes Eye Exam: EOMI, Normal appearance, PERRL. absent: Nystagmus - Respiratory Exam Respiratory Exam: NORMAL BREATHING PATTERN. absent: Respiratory Distress - Cardiovascular Exam Cardiovascular Exam: Bradycardia, +S1, +S2 - GI/Abdominal Exam GI & Abdominal Exam: Soft, Normal Bowel Sounds. absent: Tenderness, Organomegaly - Neurological Exam Neurological Exam: Awake, CN II-XII Intact. absent: Altered - Extremities Exam Extremities Exam: absent: Calf Tenderness, Joint Swelling Plan - A. End of [facility]NIT TUBING [employer]YER Vital Signs: Blood Pressure: 88/58 Pulse Rate: 61 Respiratory Rate: 21 Temperature: 97.5 F O2 Sat by Pulse Oximetry: 100 - B. Assessment of Findings&Treatment Plan [facility] TUBING DYER called by RN for hypotension and bradycardia. 86 yo M patient with PMH of Parkinson disease, Bradyarrhythmia, PVD and HTN and UTIs that presents acute bradycardia and hypotension. Hi is lying on bed in not acute distress, follows commands, reports chills, diaphoresis, cough w/ expectoration. Denies fever, nausea, vomiting, chest pain, palpitations,sob, no W/N/T, no headache,abdominal pain or any other pain. Impression: Bradyarrhythmia and hypotension r/o sepsis. IV insertion. NS 0.9% 1000ml. ekg cxr cbc cmp troponin PT/PTT lactate VBG blood cx Sputum cx <Kimberli Gracia - Last Filed: 03/03/17 17:04> Attending/Attestation - Attestation I have personally seen and examined this patient.: Yes I have fully participated in the care of the patient.: Yes I have reviewed all pertinent clinical information, including history, physical exam and plan: Yes Notes (Text): 03/03/17 17:04 SEEN AND EXAMINED WITH RESIDENT. AGREE WITH FINDINGS AND PLAN ABOVE.
[2017-03-03] MEDS: Dextrose 5%/0.45% NS 1,000 ML IV SCH (14:29)
--- NOTE | 2017-03-03 17:42 | RAD ---
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 FINDINGS: Examination limited by habitus, hypoinflation, and patient obliquity. The patient's chin obscures evaluation of the lung apices, in particular the right lung apex. LUNGS: No focal consolidation. Please note that chest x-ray has limited sensitivity for the detection of pulmonary masses. PLEURA: No significant pleural effusion identified. No definite pneumothorax . CARDIOVASCULAR: Cardiomegaly. Enlargement of the mediastinum compatible with aortic aneurysm as demonstrated on CTA chest performed 02/07/17. Atherosclerotic calcifications. OSSEOUS STRUCTURES: Degenerative changes. VISUALIZED UPPER ABDOMEN: Unremarkable. OTHER FINDINGS: None. IMPRESSION: No focal consolidation, significant pleural effusion, or definite pneumothorax identified. Hypoinflation. Enlargement of the cardiomediastinal silhouette as above.
--- NOTE | 2017-03-03 20:17 | CP.PCM.PN ---
Subjective - Date & Time of Evaluation Date of Evaluation: 03/03/17 Time of Evaluation: 22:22 - Subjective Subjective: [employer] low BP responded to IVF Objective - Vital Signs/Intake and Output Vital Signs (last 24 hours): Temp Pulse Resp BP Pulse Ox 97 F L 75 20 138/83 100 03/03/17 16:17 03/03/17 16:17 03/03/17 16:17 03/03/17 16:17 03/03/17 16:17 - Medications Medications: Current Medications Acetaminophen (Tylenol 325mg Tab) 650 mg PO Q6 PRN PRN Reason: Pain, Mild (1-3) Last Admin: 02/17/17 09:24 Dose: 650 mg Amantadine HCl (Amantadine 100 Mg Cap) 100 mg PO BID [facility] Last Admin: 03/03/17 16:26 Dose: 100 mg Benzocaine/Menthol (Cepacol Sore Throat) 1 morro PO TID PRN PRN Reason: Sore Throat Last Admin: 02/25/17 13:24 Dose: 1 morro Bethanechol Chloride (Urecholine) 50 mg PO TID [facility] Last Admin: 03/03/17 16:26 Dose: 50 mg Carbidopa/Levodopa (Rytary Er 48.75 Mg-195 Mg Cap) 1 cap PO TID@0500,1300,2100 [facility] Last Admin: 03/03/17 16:30 Dose: 1 cap Docusate Sodium (Colace) 100 mg PO BID [facility] Last Admin: 03/03/17 17:46 Dose: Not Given Famotidine (Pepcid) 40 mg PO HS [facility] Last Admin: 03/02/17 21:00 Dose: 40 mg Heparin Sodium (Porcine) (Heparin) 5,000 units SC Q8 [facility] PRN Reason: Protocol Last Admin: 03/03/17 16:27 Dose: 5,000 units Sodium Chloride (Sodium Chloride 0.9%) 1,000 mls @ 999 mls/hr IV .Q1H1M [facility] Stop: 03/04/17 10:30 Last Admin: 03/03/17 10:30 Dose: 999 mls/hr Aztreonam 1 gm/ Sodium (Chloride) 100 mls @ 100 mls/hr IVPB Q8 [facility] Last Admin: 03/03/17 19:19 Dose: 100 mls/hr Vancomycin HCl 1 gm/ Sodium (Chloride) 250 mls @ 166.667 mls/hr IVPB Q12 TU Last Admin: 03/03/17 12:30 Dose: Not Given Dextrose/Sodium Chloride (Dextrose 5%/0.45% Ns 1000 Ml) 1,000 mls @ 60 mls/hr IV .[id number] TU Stop: 03/04/17 14:25 Last Admin: 03/03/17 14:29 Dose: 60 mls/hr - Labs Labs: 03/03/17 10:25 03/03/17 10:25 PT 11.7 Seconds (9.8-13.1) 03/03/17 10:25 INR 1.1 (0.9-1.2) 03/03/17 10:25 APTT 41.2 Seconds (25.6-37.1) H 03/03/17 10:25 - Respiratory Exam Respiratory Exam: NORMAL BREATHING PATTERN - Cardiovascular Exam Cardiovascular Exam: REGULAR RHYTHM - GI/Abdominal Exam GI & Abdominal Exam: Normal Bowel Sounds Assessment and Plan - Assessment and Plan (Free Text) Assessment: S/P Bradycardia Hypotenson chronic A-fib Sepsis ? Autonomic dysfunction? Lactate elevated ID ABX started Disposition?? awaiting transfer to [place] Pt has medical decision making capacity but is financially vulnerable and benefits from legal guardianship Court and Social service involved Pt is [place] R shoulder pain Dec ROM xrays subluxation Ultram PRN PT Recuurent c-diff Gastroentritis? resolved LGI bleed Thrombocytopenia Thrombocytopenia chronic Decubitus ulcer buttocks DVT prophylaxis SCD (no Lovenox due to thrombocytopenia) S/P UTI Enterrococus S/P Urinary retention S/P UTI Proteus S/P Pnuemonia
[2017-03-03 20:33] LABS: URINE BACTERIA RARE (<OCC); URINE BILIRUBIN NEGATIVE (NEGATIVE); URINE BLOOD NEGATIVE (NEGATIVE); URINE CALCIUM OXALATE CRYSTALS RARE /hpf (<OCC); URINE CLARITY SLIGHTY-CLOUDY (Clear); URINE COLOR AMBER (YELLOW); URINE GLUCOSE (UA) NEG (Normal); URINE LEUKOCYTE ESTERASE NEG Leu/uL (Negative); URINE NITRATE NEGATIVE (NEGATIVE); URINE PROTEIN NEGATIVE (NEGATIVE); URINE UROBILINOGEN 0.2-1.0 mg/dL (0.2-1.0)
[2017-03-04] MEDS: Aztreonam 1 GM in Sodium Chloride 0.9% 100 ML IVPB SCH ×3 (00:47→16:16)
[2017-03-04] MEDS: LEVODOPA PO SCH ×3 (05:11→21:21)
[2017-03-04] MEDS: CARBIDOPA PO SCH ×3 (05:11→21:21)
[2017-03-04] MEDS: Bethanechol 50 MG TAB PO SCH ×3 (09:09→16:17)
[2017-03-04] MEDS: Dextrose 5%/0.45% NS 1,000 ML IV SCH (09:15)
--- NOTE | 2017-03-04 11:49 | CP.PCM.CON ---
History of Present Illness - History of Present Illness History of Present Illness: reconsulted for sepsis in a PCN allergic pt s/p [employer] IV rx in progress Review of Systems - Review of Systems Systems not reviewed;Unavailable: Altered Mental Status All systems: reviewed and no additional remarkable complaints except Past Patient History - Tetanus Immunizations Tetanus Immunization: Unknown - Past Medical History & Family History Past Medical History?: Yes - Past Social History Smoking Status: Never Smoked - CARDIAC Hx Cardiac Disorders: No Hx Congestive Heart Failure: No Hx Hypercholesterolemia: No Hx Hypertension: No - PULMONARY Hx Chronic Obstructive Pulmonary Disease (COPD): No - NEUROLOGICAL HX Cerebrovascular Accident: No - HEENT Hx HEENT Problems: Yes Hx Cataracts: No Hx Deafness: No Hx Difficulty Chewing: No Hx Epistaxis: No Hx Glaucoma: Yes Hx Macular Degeneration: No - RENAL Hx Renal Failure: No - ENDOCRINE/METABOLIC Hx Diabetes Mellitus Type 1: No Hx Diabetes Mellitus Type 2: No Hx Hypothyroidism: No - HEMATOLOGICAL/ONCOLOGICAL Hx Anemia: No Hx Human Immunodeficiency Virus (HIV): No Hx Sickle Cell Disease: No - INTEGUMENTARY Hx Dermatological Problems: No Hx Basil Cell: No Hx Silva: No Hx Cellulitis: Yes (right leg) Hx Eczema: No Hx Melanoma: No Hx Psoriasis: No Hx Squamous Cell: No - MUSCULOSKELETAL/RHEUMATOLOGICAL Hx Arthritis: No Hx Rheumatoid Arthritis: No - GASTROINTESTINAL Hx Crohn's Disease: No Hx Diverticulitis: No Hx Gall Bladder Disease: No Hx Gastritis: No Hx Pancreatitis: No - GENITOURINARY/GYNECOLOGICAL Hx Sexually Transmitted Disorders: No - PSYCHIATRIC Hx Anxiety: Yes Hx Depression: Yes - SURGICAL HISTORY Hx Appendectomy: Yes Hx Carotid Endarterectomy: No Hx Cholecystectomy: No Hx Coronary Artery Bypass Graft: No Hx Coronary Stent: No Hx Tonsillectomy: Yes - ANESTHESIA Hx Anesthesia: Yes Hx Anesthesia Reactions: No Hx Malignant Hyperthermia: No Meds Allergies/Adverse Reactions: Allergies Allergy/AdvReac Type Severity Reaction Status Date / Time Penicillins Allergy Hives Verified 08/01/15 06:34 - Medications Medications: Current Medications Acetaminophen (Tylenol 325mg Tab) 650 mg PO Q6 PRN PRN Reason: Pain, Mild (1-3) Last Admin: 02/17/17 09:24 Dose: 650 mg Amantadine HCl (Amantadine 100 Mg Cap) 100 mg PO BID TU Last Admin: 03/04/17 09:09 Dose: 100 mg Benzocaine/Menthol (Cepacol Sore Throat) 1 morro PO TID PRN PRN Reason: Sore Throat Last Admin: 02/25/17 13:24 Dose: 1 morro Bethanechol Chloride (Urecholine) 50 mg PO TID [facility] Last Admin: 03/04/17 09:09 Dose: 50 mg Carbidopa/Levodopa (Rytary Er 48.75 Mg-195 Mg Cap) 1 cap PO TID@0500,1300,2100 [facility] Last Admin: 03/04/17 05:11 Dose: 1 cap Docusate Sodium (Colace) 100 mg PO BID [facility] Last Admin: 03/04/17 09:09 Dose: 100 mg Famotidine (Pepcid) 40 mg PO HS [facility] Last Admin: 03/03/17 21:54 Dose: 40 mg Heparin Sodium (Porcine) (Heparin) 5,000 units SC Q8 [facility] PRN Reason: Protocol Last Admin: 03/04/17 09:17 Dose: 5,000 units Aztreonam 1 gm/ Sodium (Chloride) 100 mls @ 100 mls/hr IVPB Q8 [facility] Last Admin: 03/04/17 09:10 Dose: 100 mls/hr Vancomycin HCl 1 gm/ Sodium (Chloride) 250 mls @ 166.667 mls/hr IVPB Q12 [facility] Last Admin: 03/04/17 09:11 Dose: 166.667 mls/hr Dextrose/Sodium Chloride (Dextrose 5%/0.45% Ns 1000 Ml) 1,000 mls @ 60 mls/hr IV .[id number] [facility] Stop: 03/04/17 14:25 Last Admin: 03/04/17 09:15 Dose: 60 mls/hr Physical Exam - Constitutional Appears: Cachectic, Chronically Ill - Head Exam Head Exam: NORMAL INSPECTION - Eye Exam Eye Exam: PERRL. absent: Scleral icterus - ENT Exam ENT Exam: Mucous Membranes Dry, Normal External Ear Exam - Neck Exam Neck exam: Negative for: Lymphadenopathy - Respiratory Exam Respiratory Exam: Decreased Breath Sounds - Cardiovascular Exam Cardiovascular Exam: Tachycardia, REGULAR RHYTHM, +S1, +S2 - GI/Abdominal Exam GI & Abdominal Exam: Diminished Bowel Sounds, Soft. absent: Tenderness - Rectal Exam Rectal Exam: Deferred - Exam Exam: NORMAL INSPECTION - Extremities Exam Extremities exam: Negative for: calf tenderness, pedal edema, tenderness - Back Exam Back exam: absent: CVA tenderness (L), CVA tenderness (R) - Neurological Exam Neurological exam: Alert, Altered, CN II-XII Intact - Psychiatric Exam Psychiatric exam: Normal Mood - Skin Skin Exam: Dry, Intact Results - Vital Signs Recent Vital Signs: Last Vital Signs Temp 97.3 F L 03/04/17 08:21 Pulse 74 03/04/17 08:21 Resp 20 03/04/17 08:21 BP 126/67 03/04/17 08:21 Pulse Ox 100 03/04/17 08:21 - Labs Result Diagrams: 03/03/17 10:25 03/03/17 10:25 Labs: Laboratory Results - last 24 hr 03/03/17 03/03/17 10:09 20:17 POC Glucose (mg/dL) 197 H Urine Color [place] Urine Clarity Slighty-cloudy Urine pH 5.0 Ur Specific [place] 1.025 Urine Protein Negative Urine Glucose (UA) Neg Urine Ketones Trace Urine Blood Negative Urine Nitrate Negative Urine Bilirubin Negative Urine Urobilinogen 0.2-1.0 Ur Leukocyte Esterase Neg Urine RBC (Auto) 2 Urine Microscopic WBC 2 Calcium Oxalate Crystal Rare Urine Bacteria Rare Hyaline Casts 3-5 H Assessment & Plan (1) Parkinsonism Status: Acute (2) Bradyarrhythmia Status: Acute - Assessment and Plan (Free Text) Assessment: iv rx ordered after extensive review of chart and discussion with care givers
--- NOTE | 2017-03-04 20:13 | CP.PCM.PN ---
Subjective - Date & Time of Evaluation Date of Evaluation: 03/04/17 Time of Evaluation: 22:22 - Subjective Subjective: ID note appreciated Objective - Vital Signs/Intake and Output Vital Signs (last 24 hours): Temp Pulse Resp BP Pulse Ox 97.3 F L 87 18 130/83 98 03/04/17 15:51 03/04/17 15:51 03/04/17 15:51 03/04/17 15:51 03/04/17 15:51 - Medications Medications: Current Medications Acetaminophen (Tylenol 325mg Tab) 650 mg PO Q6 PRN PRN Reason: Pain, Mild (1-3) Last Admin: 02/17/17 09:24 Dose: 650 mg Amantadine HCl (Amantadine 100 Mg Cap) 100 mg PO BID [facility] Last Admin: 03/04/17 16:17 Dose: 100 mg Benzocaine/Menthol (Cepacol Sore Throat) 1 morro PO TID PRN PRN Reason: Sore Throat Last Admin: 02/25/17 13:24 Dose: 1 morro Bethanechol Chloride (Urecholine) 50 mg PO TID [facility] Last Admin: 03/04/17 16:17 Dose: 50 mg Carbidopa/Levodopa (Rytary Er 48.75 Mg-195 Mg Cap) 1 cap PO TID@0500,1300,2100 [facility] Last Admin: 03/04/17 12:08 Dose: 1 cap Docusate Sodium (Colace) 100 mg PO BID [facility] Last Admin: 03/04/17 16:15 Dose: 100 mg Famotidine (Pepcid) 40 mg PO HS [facility] Last Admin: 03/03/17 21:54 Dose: 40 mg Heparin Sodium (Porcine) (Heparin) 5,000 units SC Q8 [facility] PRN Reason: Protocol Last Admin: 03/04/17 16:14 Dose: 5,000 units Aztreonam 1 gm/ Sodium (Chloride) 100 mls @ 100 mls/hr IVPB Q8 [facility] Last Admin: 03/04/17 16:16 Dose: 100 mls/hr Vancomycin HCl 1 gm/ Sodium (Chloride) 250 mls @ 166.667 mls/hr IVPB Q12 [facility] Last Admin: 03/04/17 09:11 Dose: 166.667 mls/hr - Labs Labs: 03/03/17 10:25 03/03/17 10:25 PT 11.7 Seconds (9.8-13.1) 03/03/17 10:25 INR 1.1 (0.9-1.2) 03/03/17 10:25 APTT 41.2 Seconds (25.6-37.1) H 03/03/17 10:25 - Respiratory Exam Respiratory Exam: NORMAL BREATHING PATTERN - Cardiovascular Exam Cardiovascular Exam: Tachycardia - GI/Abdominal Exam GI & Abdominal Exam: Normal Bowel Sounds Assessment and Plan - Assessment and Plan (Free Text) Assessment: S/P Bradycardia Hypotenson chronic A-fib Sepsis ? Autonomic dysfunction? Lactate elevated ID ABX started [facility]?? [facility] Pt has medical decision making capacity but is financially vulnerable and benefits from legal guardianship Court and Social service involved Pt is [place] R shoulder pain Dec ROM xrays subluxation Ultram PRN PT Recuurent c-diff Gastroentritis? resolved LGI bleed Thrombocytopenia Thrombocytopenia chronic Decubitus ulcer buttocks DVT prophylaxis SCD (no Lovenox due to thrombocytopenia) S/P UTI Enterrococus S/P Urinary retention S/P UTI Proteus S/P Pnuemonia
[2017-03-05] MEDS: Aztreonam 1 GM in Sodium Chloride 0.9% 100 ML IVPB SCH ×3 (00:42→16:19)
[2017-03-05] MEDS: CARBIDOPA PO SCH ×3 (05:49→20:48)
[2017-03-05] MEDS: LEVODOPA PO SCH ×3 (05:49→20:48)
[2017-03-05] MEDS: Bethanechol 50 MG TAB PO SCH ×3 (09:01→16:20)
--- NOTE | 2017-03-05 12:25 | CP.PCM.PN ---
Subjective - Date & Time of Evaluation Date of Evaluation: 03/05/17 Time of Evaluation: 09:00 - Subjective Subjective: less fever no leukocytosis mood depresssed Objective - Vital Signs/Intake and Output Vital Signs (last 24 hours): Temp Pulse Resp BP Pulse Ox 97.4 F L 73 18 112/65 98 03/05/17 08:39 03/05/17 08:39 03/05/17 08:39 03/05/17 08:39 03/05/17 08:39 - Medications Medications: Current Medications Acetaminophen (Tylenol 325mg Tab) 650 mg PO Q6 PRN PRN Reason: Pain, Mild (1-3) Last Admin: 02/17/17 09:24 Dose: 650 mg Amantadine HCl (Amantadine 100 Mg Cap) 100 mg PO BID [facility] Last Admin: 03/05/17 09:01 Dose: 100 mg Benzocaine/Menthol (Cepacol Sore Throat) 1 morro PO TID PRN PRN Reason: Sore Throat Last Admin: 02/25/17 13:24 Dose: 1 morro Bethanechol Chloride (Urecholine) 50 mg PO TID [facility] Last Admin: 03/05/17 12:18 Dose: 50 mg Carbidopa/Levodopa (Rytary Er 48.75 Mg-195 Mg Cap) 1 cap PO TID@0500,1300,2100 [facility] Last Admin: 03/05/17 12:18 Dose: 1 cap Docusate Sodium (Colace) 100 mg PO BID [facility] Last Admin: 03/05/17 09:01 Dose: 100 mg Famotidine (Pepcid) 40 mg PO HS [facility] Last Admin: 03/04/17 21:25 Dose: 40 mg Heparin Sodium (Porcine) (Heparin) 5,000 units SC Q8 [facility] PRN Reason: Protocol Last Admin: 03/05/17 08:59 Dose: 5,000 units Aztreonam 1 gm/ Sodium (Chloride) 100 mls @ 100 mls/hr IVPB Q8 [facility] Last Admin: 03/05/17 08:57 Dose: 100 mls/hr Vancomycin HCl 1 gm/ Sodium (Chloride) 250 mls @ 166.667 mls/hr IVPB Q12 [facility] Last Admin: 03/05/17 08:56 Dose: 166.667 mls/hr - Labs Labs: 03/03/17 10:25 03/03/17 10:25 PT 11.7 Seconds (9.8-13.1) 03/03/17 10:25 INR 1.1 (0.9-1.2) 03/03/17 10:25 APTT 41.2 Seconds (25.6-37.1) H 03/03/17 10:25 - Constitutional Appears: Non-toxic, Cachectic, Chronically Ill - Head Exam Head Exam: NORMOCEPHALIC - Eye Exam Eye Exam: PERRL. absent: Scleral icterus - ENT Exam ENT Exam: Mucous Membranes Dry, Normal External Ear Exam - Neck Exam Neck Exam: absent: Lymphadenopathy - Respiratory Exam Respiratory Exam: Decreased Breath Sounds, Rhonchi - Cardiovascular Exam Cardiovascular Exam: REGULAR RHYTHM, +S1, +S2 - GI/Abdominal Exam GI & Abdominal Exam: Distended, Soft. absent: Tenderness - Rectal Exam Rectal Exam: Deferred - Exam Exam: NORMAL INSPECTION Assessment and Plan (1) Parkinsonism Status: Acute (2) Bradyarrhythmia Status: Acute
--- NOTE | 2017-03-05 15:49 | CP.PCM.PN ---
Subjective - Date & Time of Evaluation Date of Evaluation: 03/05/17 Time of Evaluation: 22:22 - Subjective Subjective: Above noted Objective - Vital Signs/Intake and Output Vital Signs (last 24 hours): Temp Pulse Resp BP Pulse Ox 97.4 F L 73 18 112/65 98 03/05/17 08:39 03/05/17 08:39 03/05/17 08:39 03/05/17 08:39 03/05/17 08:39 - Medications Medications: Current Medications Acetaminophen (Tylenol 325mg Tab) 650 mg PO Q6 PRN PRN Reason: Pain, Mild (1-3) Last Admin: 02/17/17 09:24 Dose: 650 mg Amantadine HCl (Amantadine 100 Mg Cap) 100 mg PO BID [facility] Last Admin: 03/05/17 09:01 Dose: 100 mg Benzocaine/Menthol (Cepacol Sore Throat) 1 morro PO TID PRN PRN Reason: Sore Throat Last Admin: 02/25/17 13:24 Dose: 1 morro Bethanechol Chloride (Urecholine) 50 mg PO TID [facility] Last Admin: 03/05/17 12:18 Dose: 50 mg Carbidopa/Levodopa (Rytary Er 48.75 Mg-195 Mg Cap) 1 cap PO TID@0500,1300,2100 [facility] Last Admin: 03/05/17 12:18 Dose: 1 cap Docusate Sodium (Colace) 100 mg PO BID [facility] Last Admin: 03/05/17 09:01 Dose: 100 mg Famotidine (Pepcid) 40 mg PO HS [facility] Last Admin: 03/04/17 21:25 Dose: 40 mg Heparin Sodium (Porcine) (Heparin) 5,000 units SC Q8 [facility] PRN Reason: Protocol Last Admin: 03/05/17 08:59 Dose: 5,000 units Aztreonam 1 gm/ Sodium (Chloride) 100 mls @ 100 mls/hr IVPB Q8 [facility] Last Admin: 03/05/17 08:57 Dose: 100 mls/hr Vancomycin HCl 1 gm/ Sodium (Chloride) 250 mls @ 166.667 mls/hr IVPB Q12 [facility] Last Admin: 03/05/17 08:56 Dose: 166.667 mls/hr - Labs Labs: 03/03/17 10:25 03/03/17 10:25 PT 11.7 Seconds (9.8-13.1) 03/03/17 10:25 INR 1.1 (0.9-1.2) 03/03/17 10:25 APTT 41.2 Seconds (25.6-37.1) H 03/03/17 10:25 - Respiratory Exam Respiratory Exam: NORMAL BREATHING PATTERN - Cardiovascular Exam Cardiovascular Exam: REGULAR RHYTHM - GI/Abdominal Exam GI & Abdominal Exam: Normal Bowel Sounds Assessment and Plan - Assessment and Plan (Free Text) Assessment: S/P Bradycardia Hypotenson chronic A-fib Sepsis ? Autonomic dysfunction? Lactate elevated ID ABX started Disposition?? awaiting transfer to [place] Pt has medical decision making capacity but is financially vulnerable and benefits from legal guardianship Court and Social service involved Pt is [place] R shoulder pain Dec ROM xrays subluxation Ultram PRN PT Recuurent c-diff Gastroentritis? resolved LGI bleed Thrombocytopenia Thrombocytopenia chronic Decubitus ulcer buttocks DVT prophylaxis SCD (no Lovenox due to thrombocytopenia) S/P UTI Enterrococus S/P Urinary retention S/P UTI Proteus S/P Pnuemonia
[2017-03-06] MEDS: Aztreonam 1 GM in Sodium Chloride 0.9% 100 ML IVPB SCH ×3 (01:38→17:12)
[2017-03-06] MEDS: LEVODOPA PO SCH ×3 (04:58→21:26)
[2017-03-06] MEDS: CARBIDOPA PO SCH ×3 (04:58→21:26)
[2017-03-06] MEDS: Bethanechol 50 MG TAB PO SCH ×3 (08:44→16:53)
--- NOTE | 2017-03-06 20:07 | CP.PCM.PN ---
Subjective - Date & Time of Evaluation Date of Evaluation: 03/06/17 Time of Evaluation: 22:22 - Subjective Subjective: Afebrile Objective - Vital Signs/Intake and Output Vital Signs (last 24 hours): Temp Pulse Resp BP Pulse Ox 97.9 F 64 20 154/66 H 92 L 03/06/17 16:24 03/06/17 16:24 03/06/17 16:24 03/06/17 16:24 03/06/17 16:24 - Medications Medications: Current Medications Acetaminophen (Tylenol 325mg Tab) 650 mg PO Q6 PRN PRN Reason: Pain, Mild (1-3) Last Admin: 02/17/17 09:24 Dose: 650 mg Amantadine HCl (Amantadine 100 Mg Cap) 100 mg PO BID [facility] Last Admin: 03/06/17 17:07 Dose: 100 mg Benzocaine/Menthol (Cepacol Sore Throat) 1 morro PO TID PRN PRN Reason: Sore Throat Last Admin: 02/25/17 13:24 Dose: 1 morro Bethanechol Chloride (Urecholine) 50 mg PO TID [facility] Last Admin: 03/06/17 16:53 Dose: 50 mg Carbidopa/Levodopa (Rytary Er 48.75 Mg-195 Mg Cap) 1 cap PO TID@0500,1300,2100 [facility] Last Admin: 03/06/17 13:00 Dose: 1 cap Docusate Sodium (Colace) 100 mg PO BID [facility] Last Admin: 03/06/17 16:53 Dose: 100 mg Famotidine (Pepcid) 40 mg PO HS [facility] Last Admin: 03/05/17 21:02 Dose: 40 mg Heparin Sodium (Porcine) (Heparin) 5,000 units SC Q8 [facility] PRN Reason: Protocol Last Admin: 03/06/17 16:52 Dose: 5,000 units Aztreonam 1 gm/ Sodium (Chloride) 100 mls @ 100 mls/hr IVPB Q8 [facility] Last Admin: 03/06/17 17:12 Dose: 100 mls/hr Vancomycin HCl 1 gm/ Sodium (Chloride) 250 mls @ 166.667 mls/hr IVPB Q12 [facility] Last Admin: 03/06/17 09:03 Dose: 166.667 mls/hr - Labs Labs: 03/03/17 10:25 03/03/17 10:25 PT 11.7 Seconds (9.8-13.1) 03/03/17 10:25 INR 1.1 (0.9-1.2) 03/03/17 10:25 APTT 41.2 Seconds (25.6-37.1) H 03/03/17 10:25 - Respiratory Exam Respiratory Exam: NORMAL BREATHING PATTERN - Cardiovascular Exam Cardiovascular Exam: REGULAR RHYTHM - GI/Abdominal Exam GI & Abdominal Exam: Normal Bowel Sounds Assessment and Plan - Assessment and Plan (Free Text) Assessment: S/P Bradycardia Hypotenson chronic A-fib Sepsis ? Autonomic dysfunction? Lactate elevated ID ABX started Disposition?? awaiting transfer to [place] Pt has medical decision making capacity but is financially vulnerable and benefits from legal guardianship Court and Social service involved Pt is [place] R shoulder pain Dec ROM xrays subluxation Ultram PRN PT Recuurent c-diff Gastroentritis? resolved LGI bleed Thrombocytopenia Thrombocytopenia chronic Decubitus ulcer buttocks DVT prophylaxis SCD (no Lovenox due to thrombocytopenia) S/P UTI Enterrococus S/P Urinary retention S/P UTI Proteus S/P Pnuemonia
[2017-03-07] MEDS: Aztreonam 1 GM in Sodium Chloride 0.9% 100 ML IVPB SCH ×3 (01:07→17:07)
[2017-03-07] MEDS: LEVODOPA PO SCH ×3 (04:30→21:04)
[2017-03-07] MEDS: CARBIDOPA PO SCH ×3 (04:30→21:04)
[2017-03-07] MEDS: Bethanechol 50 MG TAB PO SCH ×3 (08:26→17:08)
--- NOTE | 2017-03-07 15:32 | CP.PCM.PN ---
Subjective - Date & Time of Evaluation Date of Evaluation: 03/05/17 Time of Evaluation: 22:22 - Subjective Subjective: Above noted Objective - Vital Signs/Intake and Output Vital Signs (last 24 hours): Temp Pulse Resp BP Pulse Ox 97.6 F 65 20 115/62 100 03/07/17 10:00 03/07/17 10:00 03/07/17 10:00 03/07/17 10:00 03/07/17 10:00 - Medications Medications: Current Medications Acetaminophen (Tylenol 325mg Tab) 650 mg PO Q6 PRN PRN Reason: Pain, Mild (1-3) Last Admin: 02/17/17 09:24 Dose: 650 mg Amantadine HCl (Amantadine 100 Mg Cap) 100 mg PO BID [facility] Last Admin: 03/07/17 08:26 Dose: 100 mg Benzocaine/Menthol (Cepacol Sore Throat) 1 morro PO TID PRN PRN Reason: Sore Throat Last Admin: 02/25/17 13:24 Dose: 1 morro Bethanechol Chloride (Urecholine) 50 mg PO TID [facility] Last Admin: 03/07/17 12:41 Dose: 50 mg Carbidopa/Levodopa (Rytary Er 48.75 Mg-195 Mg Cap) 1 cap PO TID@0500,1300,2100 [facility] Last Admin: 03/07/17 12:41 Dose: 1 cap Docusate Sodium (Colace) 100 mg PO BID [facility] Last Admin: 03/07/17 08:25 Dose: 100 mg Famotidine (Pepcid) 40 mg PO HS [facility] Last Admin: 03/06/17 21:30 Dose: 40 mg Heparin Sodium (Porcine) (Heparin) 5,000 units SC Q8 [facility] PRN Reason: Protocol Last Admin: 03/07/17 08:25 Dose: 5,000 units Aztreonam 1 gm/ Sodium (Chloride) 100 mls @ 100 mls/hr IVPB Q8 [facility] Last Admin: 03/07/17 08:25 Dose: 100 mls/hr Vancomycin HCl 1 gm/ Sodium (Chloride) 250 mls @ 166.667 mls/hr IVPB Q12 [facility] Last Admin: 03/07/17 09:25 Dose: 166.667 mls/hr - Labs Labs: 03/03/17 10:25 03/03/17 10:25 PT 11.7 Seconds (9.8-13.1) 03/03/17 10:25 INR 1.1 (0.9-1.2) 03/03/17 10:25 APTT 41.2 Seconds (25.6-37.1) H 03/03/17 10:25 - Respiratory Exam Respiratory Exam: NORMAL BREATHING PATTERN - Cardiovascular Exam Cardiovascular Exam: REGULAR RHYTHM - GI/Abdominal Exam GI & Abdominal Exam: Normal Bowel Sounds Assessment and Plan - Assessment and Plan (Free Text) Assessment: S/P Bradycardia Hypotenson chronic A-fib Sepsis ? Autonomic dysfunction? Lactate elevated ID ABX started Disposition?? awaiting transfer to [place] Pt has medical decision making capacity but is financially vulnerable and benefits from legal guardianship Court and Social service involved Pt is [place] R shoulder pain Dec ROM xrays subluxation Ultram PRN PT Recuurent c-diff Gastroentritis? resolved LGI bleed Thrombocytopenia Thrombocytopenia chronic Decubitus ulcer buttocks DVT prophylaxis SCD (no Lovenox due to thrombocytopenia) S/P UTI Enterrococus S/P Urinary retention S/P UTI Proteus S/P Pnuemonia
[2017-03-08] MEDS: Aztreonam 1 GM in Sodium Chloride 0.9% 100 ML IVPB SCH ×2 (00:38→09:26)
[2017-03-08] MEDS: CARBIDOPA PO SCH ×3 (04:34→21:10)
[2017-03-08] MEDS: LEVODOPA PO SCH ×3 (04:34→21:10)
[2017-03-08] MEDS: Bethanechol 50 MG TAB PO SCH ×3 (09:23→17:36)
--- NOTE | 2017-03-08 23:54 | CP.PCM.PN ---
Subjective - Date & Time of Evaluation Date of Evaluation: 03/08/17 Time of Evaluation: 22:22 - Subjective Subjective: Above noted Objective - Vital Signs/Intake and Output Vital Signs (last 24 hours): Temp Pulse Resp BP Pulse Ox 97.9 F 83 18 133/68 98 03/08/17 16:23 03/08/17 16:23 03/08/17 16:23 03/08/17 16:23 03/08/17 16:23 - Medications Medications: Current Medications Acetaminophen (Tylenol 325mg Tab) 650 mg PO Q6 PRN PRN Reason: Pain, Mild (1-3) Last Admin: 02/17/17 09:24 Dose: 650 mg Amantadine HCl (Amantadine 100 Mg Cap) 100 mg PO BID [facility] Last Admin: 03/08/17 17:35 Dose: 100 mg Benzocaine/Menthol (Cepacol Sore Throat) 1 morro PO TID PRN PRN Reason: Sore Throat Last Admin: 02/25/17 13:24 Dose: 1 morro Bethanechol Chloride (Urecholine) 50 mg PO TID [facility] Last Admin: 03/08/17 17:36 Dose: 50 mg Carbidopa/Levodopa (Rytary Er 48.75 Mg-195 Mg Cap) 1 cap PO TID@0500,1300,2100 [facility] Last Admin: 03/08/17 21:10 Dose: 1 cap Docusate Sodium (Colace) 100 mg PO BID [facility] Last Admin: 03/08/17 17:35 Dose: 100 mg Famotidine (Pepcid) 40 mg PO HS [facility] Last Admin: 03/08/17 21:10 Dose: 40 mg Vancomycin HCl 1 gm/ Sodium (Chloride) 250 mls @ 166.667 mls/hr IVPB Q12 [facility] Last Admin: 03/08/17 21:11 Dose: 166.667 mls/hr - Labs Labs: 03/03/17 10:25 03/03/17 10:25 PT 11.7 Seconds (9.8-13.1) 03/03/17 10:25 INR 1.1 (0.9-1.2) 03/03/17 10:25 APTT 41.2 Seconds (25.6-37.1) H 03/03/17 10:25 - Respiratory Exam Respiratory Exam: NORMAL BREATHING PATTERN - Cardiovascular Exam Cardiovascular Exam: REGULAR RHYTHM - GI/Abdominal Exam GI & Abdominal Exam: Normal Bowel Sounds Assessment and Plan - Assessment and Plan (Free Text) Assessment: S/P Bradycardia Hypotenson chronic A-fib Sepsis ? Autonomic dysfunction? Lactate elevated ID ABX started Disposition?? awaiting transfer to [place] Pt has medical decision making capacity but is financially vulnerable and benefits from legal guardianship Court and Social service involved Pt is [place] R shoulder pain Dec ROM xrays subluxation Ultram PRN PT Recuurent c-diff Gastroentritis? resolved LGI bleed Thrombocytopenia Thrombocytopenia chronic Decubitus ulcer buttocks DVT prophylaxis SCD (no Lovenox due to thrombocytopenia) S/P UTI Enterrococus S/P Urinary retention S/P UTI Proteus S/P Pnuemonia
[2017-03-09] MEDS: LEVODOPA PO SCH ×3 (05:30→21:16)
[2017-03-09] MEDS: CARBIDOPA PO SCH ×3 (05:30→21:16)
[2017-03-09] MEDS: Bethanechol 50 MG TAB PO SCH ×2 (13:12→17:28)
--- NOTE | 2017-03-09 13:18 | CP.PCM.PN ---
Subjective - Date & Time of Evaluation Date of Evaluation: 03/09/17 Time of Evaluation: 08:00 - Subjective Subjective: improving s/p [place] [facility] iall cultures negative Objective - Vital Signs/Intake and Output Vital Signs (last 24 hours): Temp Pulse Resp BP Pulse Ox 97.9 F 61 20 123/70 100 03/09/17 08:32 03/09/17 08:32 03/09/17 08:32 03/09/17 08:32 03/09/17 08:32 - Medications Medications: Current Medications Acetaminophen (Tylenol 325mg Tab) 650 mg PO Q6 PRN PRN Reason: Pain, Mild (1-3) Amantadine HCl (Amantadine 100 Mg Cap) 100 mg PO BID [facility] Benzocaine/Menthol (Cepacol Sore Throat) 1 morro PO TID PRN PRN Reason: Sore Throat Bethanechol Chloride (Urecholine) 50 mg PO TID [facility] Last Admin: 03/09/17 13:12 Dose: 50 mg Carbidopa/Levodopa (Rytary Er 48.75 Mg-195 Mg Cap) 1 cap PO TID@0500,1300,2100 [facility] Last Admin: 03/09/17 13:13 Dose: 1 cap Docusate Sodium (Colace) 100 mg PO BID [facility] Last Admin: 03/09/17 10:10 Dose: 100 mg Famotidine (Pepcid) 40 mg PO HS [facility] - Labs Labs: 03/03/17 10:25 03/03/17 10:25 PT 11.7 Seconds (9.8-13.1) 03/03/17 10:25 INR 1.1 (0.9-1.2) 03/03/17 10:25 APTT 41.2 Seconds (25.6-37.1) H 03/03/17 10:25 - Constitutional Appears: Non-toxic, Chronically Ill - Head Exam Head Exam: NORMOCEPHALIC - Eye Exam Eye Exam: absent: Scleral icterus - ENT Exam ENT Exam: Mucous Membranes Dry, Normal External Ear Exam - Neck Exam Neck Exam: absent: Lymphadenopathy - Respiratory Exam Respiratory Exam: Decreased Breath Sounds, Clear to Ausculation Bilateral - Cardiovascular Exam Cardiovascular Exam: REGULAR RHYTHM - GI/Abdominal Exam GI & Abdominal Exam: Distended, Soft. absent: Tenderness - Rectal Exam Rectal Exam: Deferred - Exam Exam: NORMAL INSPECTION - Extremities Exam Extremities Exam: absent: Calf Tenderness, Pedal Edema, Tenderness - Back Exam Back Exam: absent: CVA tenderness (L), CVA tenderness (R) - Neurological Exam Neurological Exam: Alert, Altered, Awake Assessment and Plan (1) Parkinsonism Status: Acute (2) Bradyarrhythmia Status: Acute
[2017-03-10] MEDS: LEVODOPA PO SCH ×3 (05:46→21:17)
[2017-03-10] MEDS: CARBIDOPA PO SCH ×3 (05:46→21:17)
[2017-03-10] MEDS: Bethanechol 50 MG TAB PO SCH ×3 (08:21→16:20)
[2017-03-10 09:37] VITALS: BMI 29.7
--- NOTE | 2017-03-10 16:36 | CP.PCM.PN ---
Subjective - Date & Time of Evaluation Date of Evaluation: 03/10/17 Time of Evaluation: 22:22 - Subjective Subjective: Above ID note appreciated Objective - Vital Signs/Intake and Output Vital Signs (last 24 hours): Temp Pulse Resp BP Pulse Ox 97.5 F L 97 H 20 124/73 98 03/10/17 16:09 03/10/17 16:09 03/10/17 16:09 03/10/17 16:09 03/10/17 16:09 - Medications Medications: Current Medications Acetaminophen (Tylenol 325mg Tab) 650 mg PO Q6 PRN PRN Reason: Pain, Mild (1-3) Amantadine HCl (Amantadine 100 Mg Cap) 100 mg PO BID [facility] Last Admin: 03/10/17 16:21 Dose: 100 mg Benzocaine/Menthol (Cepacol Sore Throat) 1 morro PO TID PRN PRN Reason: Sore Throat Bethanechol Chloride (Urecholine) 50 mg PO TID [facility] Last Admin: 03/10/17 16:20 Dose: 50 mg Carbidopa/Levodopa (Rytary Er 48.75 Mg-195 Mg Cap) 1 cap PO TID@0500,1300,2100 [facility] Last Admin: 03/10/17 12:00 Dose: 1 cap Docusate Sodium (Colace) 100 mg PO BID [facility] Last Admin: 03/10/17 16:20 Dose: 100 mg Famotidine (Pepcid) 40 mg PO HS [facility] Last Admin: 03/09/17 21:17 Dose: 40 mg Heparin Sodium (Porcine) (Heparin) 5,000 units SC Q8 TU PRN Reason: Protocol Last Admin: 03/10/17 16:20 Dose: 5,000 units - Labs Labs: 03/03/17 10:25 03/03/17 10:25 PT 11.7 Seconds (9.8-13.1) 03/03/17 10:25 INR 1.1 (0.9-1.2) 03/03/17 10:25 APTT 41.2 Seconds (25.6-37.1) H 03/03/17 10:25 - Respiratory Exam Respiratory Exam: NORMAL BREATHING PATTERN - Cardiovascular Exam Cardiovascular Exam: REGULAR RHYTHM - GI/Abdominal Exam GI & Abdominal Exam: Normal Bowel Sounds Assessment and Plan - Assessment and Plan (Free Text) Assessment: Disposition?? awaiting transfer to [place] Pt has medical decision making capacity but is financially vulnerable and benefits from legal guardianship Court and Social service involved Pt is [place] WWII S/P Bradycardia Hypotenson chronic A-fib Sepsis ? Autonomic dysfunction? Lactate elevated ID ABX completed R shoulder pain Dec ROM xrays subluxation Ultram PRN PT Recuurent c-diff Gastroentritis? resolved LGI bleed Thrombocytopenia Thrombocytopenia chronic Decubitus ulcer buttocks DVT prophylaxis SCD (no Lovenox due to thrombocytopenia) S/P UTI Enterrococus S/P Urinary retention S/P UTI Proteus S/P Pnuemonia
[2017-03-11] MEDS: CARBIDOPA PO SCH ×3 (05:17→21:05)
[2017-03-11] MEDS: LEVODOPA PO SCH ×3 (05:17→21:05)
[2017-03-11] MEDS: Bethanechol 50 MG TAB PO SCH ×3 (10:48→18:23)
--- NOTE | 2017-03-11 20:13 | CP.PCM.PN ---
Subjective - Date & Time of Evaluation Date of Evaluation: 03/11/17 Time of Evaluation: 22:22 - Subjective Subjective: Sleeping Objective - Vital Signs/Intake and Output Vital Signs (last 24 hours): Temp Pulse Resp BP Pulse Ox 97 F L 67 20 121/57 L 97 03/11/17 16:14 03/11/17 16:14 03/11/17 16:14 03/11/17 16:14 03/11/17 16:14 - Medications Medications: Current Medications Acetaminophen (Tylenol 325mg Tab) 650 mg PO Q6 PRN PRN Reason: Pain, Mild (1-3) Amantadine HCl (Amantadine 100 Mg Cap) 100 mg PO BID [facility] Last Admin: 03/11/17 18:26 Dose: 100 mg Benzocaine/Menthol (Cepacol Sore Throat) 1 morro PO TID PRN PRN Reason: Sore Throat Bethanechol Chloride (Urecholine) 50 mg PO TID [facility] Last Admin: 03/11/17 18:23 Dose: 50 mg Carbidopa/Levodopa (Rytary Er 48.75 Mg-195 Mg Cap) 1 cap PO TID@0500,1300,2100 [facility] Last Admin: 03/11/17 13:06 Dose: 1 cap Docusate Sodium (Colace) 100 mg PO BID [facility] Last Admin: 03/11/17 18:23 Dose: 100 mg Famotidine (Pepcid) 40 mg PO HS [facility] Last Admin: 03/10/17 21:17 Dose: 40 mg Heparin Sodium (Porcine) (Heparin) 5,000 units SC Q8 [facility] PRN Reason: Protocol Last Admin: 03/11/17 18:23 Dose: 5,000 units - Labs Labs: 03/03/17 10:25 03/03/17 10:25 PT 11.7 Seconds (9.8-13.1) 03/03/17 10:25 INR 1.1 (0.9-1.2) 03/03/17 10:25 APTT 41.2 Seconds (25.6-37.1) H 03/03/17 10:25 - Respiratory Exam Respiratory Exam: NORMAL BREATHING PATTERN - Cardiovascular Exam Cardiovascular Exam: REGULAR RHYTHM - GI/Abdominal Exam GI & Abdominal Exam: Normal Bowel Sounds Assessment and Plan - Assessment and Plan (Free Text) Assessment: Disposition?? awaiting transfer to [place] Pt has medical decision making capacity but is financially vulnerable and benefits from legal guardianship Court and Social service involved Pt is [place] WWII S/P Bradycardia Hypotenson chronic A-fib Sepsis ? Autonomic dysfunction? Lactate elevated ID ABX completed R shoulder pain Dec ROM xrays subluxation Ultram PRN PT Recuurent c-diff Gastroentritis? resolved LGI bleed Thrombocytopenia Thrombocytopenia chronic Decubitus ulcer buttocks DVT prophylaxis SCD (no Lovenox due to thrombocytopenia) S/P UTI Enterrococus S/P Urinary retention S/P UTI Proteus S/P Pnuemonia
[2017-03-12] MEDS: CARBIDOPA PO SCH ×3 (04:37→20:14)
[2017-03-12] MEDS: LEVODOPA PO SCH ×3 (04:37→20:14)
[2017-03-12] MEDS: Bethanechol 50 MG TAB PO SCH ×3 (08:26→16:00)
--- NOTE | 2017-03-12 17:04 | CP.PCM.PN ---
Subjective - Date & Time of Evaluation Date of Evaluation: 03/12/17 Time of Evaluation: 22:22 - Subjective Subjective: Above noted Objective - Vital Signs/Intake and Output Vital Signs (last 24 hours): Temp Pulse Resp BP Pulse Ox 97.3 F L 73 20 123/74 98 03/12/17 16:17 03/12/17 16:17 03/12/17 16:17 03/12/17 16:17 03/12/17 16:17 - Medications Medications: Current Medications Acetaminophen (Tylenol 325mg Tab) 650 mg PO Q6 PRN PRN Reason: Pain, Mild (1-3) Amantadine HCl (Amantadine 100 Mg Cap) 100 mg PO BID [facility] Last Admin: 03/12/17 16:00 Dose: 100 mg Benzocaine/Menthol (Cepacol Sore Throat) 1 morro PO TID PRN PRN Reason: Sore Throat Bethanechol Chloride (Urecholine) 50 mg PO TID [facility] Last Admin: 03/12/17 16:00 Dose: 50 mg Carbidopa/Levodopa (Rytary Er 48.75 Mg-195 Mg Cap) 1 cap PO TID@0500,1300,2100 [facility] Last Admin: 03/12/17 12:26 Dose: 1 cap Docusate Sodium (Colace) 100 mg PO BID [facility] Last Admin: 03/12/17 16:01 Dose: 100 mg Famotidine (Pepcid) 40 mg PO HS [facility] Last Admin: 03/11/17 21:05 Dose: 40 mg Heparin Sodium (Porcine) (Heparin) 5,000 units SC Q8 TU PRN Reason: Protocol Last Admin: 03/12/17 16:01 Dose: 5,000 units - Labs Labs: 03/03/17 10:25 03/03/17 10:25 PT 11.7 Seconds (9.8-13.1) 03/03/17 10:25 INR 1.1 (0.9-1.2) 03/03/17 10:25 APTT 41.2 Seconds (25.6-37.1) H 03/03/17 10:25 - Respiratory Exam Respiratory Exam: NORMAL BREATHING PATTERN - Cardiovascular Exam Cardiovascular Exam: REGULAR RHYTHM - GI/Abdominal Exam GI & Abdominal Exam: Normal Bowel Sounds Assessment and Plan - Assessment and Plan (Free Text) Assessment: Disposition?? awaiting transfer to [place] Pt has medical decision making capacity but is financially vulnerable and benefits from legal guardianship Court and Social service involved Pt is [place] S/P Bradycardia Hypotenson chronic A-fib Sepsis ? Autonomic dysfunction? Lactate elevated ID ABX completed R shoulder pain Dec ROM xrays subluxation Ultram PRN PT Recuurent c-diff Gastroentritis? resolved LGI bleed Thrombocytopenia Thrombocytopenia chronic Decubitus ulcer buttocks DVT prophylaxis SCD (no Lovenox due to thrombocytopenia) S/P UTI Enterrococus S/P Urinary retention S/P UTI Proteus S/P Pnuemonia
[2017-03-13] MEDS: CARBIDOPA PO SCH ×3 (05:29→20:26)
[2017-03-13] MEDS: LEVODOPA PO SCH ×3 (05:29→20:26)
[2017-03-13] MEDS: Bethanechol 50 MG TAB PO SCH ×3 (08:32→16:19)
--- NOTE | 2017-03-13 20:56 | CP.PCM.PN ---
Subjective - Date & Time of Evaluation Date of Evaluation: 03/13/17 Time of Evaluation: 22:22 - Subjective Subjective: Resting Objective - Vital Signs/Intake and Output Vital Signs (last 24 hours): Temp Pulse Resp BP Pulse Ox 97.4 F L 69 18 121/58 L 97 03/13/17 15:58 03/13/17 15:58 03/13/17 15:58 03/13/17 15:58 03/13/17 15:58 - Medications Medications: Current Medications Acetaminophen (Tylenol 325mg Tab) 650 mg PO Q6 PRN PRN Reason: Pain, Mild (1-3) Amantadine HCl (Amantadine 100 Mg Cap) 100 mg PO BID [facility] Last Admin: 03/13/17 16:19 Dose: 100 mg Benzocaine/Menthol (Cepacol Sore Throat) 1 morro PO TID PRN PRN Reason: Sore Throat Bethanechol Chloride (Urecholine) 50 mg PO TID [facility] Last Admin: 03/13/17 16:19 Dose: 50 mg Carbidopa/Levodopa (Rytary Er 48.75 Mg-195 Mg Cap) 1 cap PO TID@0500,1300,2100 [facility] Last Admin: 03/13/17 20:26 Dose: 1 cap Docusate Sodium (Colace) 100 mg PO BID [facility] Last Admin: 03/13/17 16:19 Dose: 100 mg Famotidine (Pepcid) 40 mg PO HS [facility] Last Admin: 03/12/17 21:43 Dose: 40 mg Heparin Sodium (Porcine) (Heparin) 5,000 units SC Q8 [facility] PRN Reason: Protocol Last Admin: 03/13/17 16:19 Dose: 5,000 units - Labs Labs: 03/03/17 10:25 03/03/17 10:25 PT 11.7 Seconds (9.8-13.1) 03/03/17 10:25 INR 1.1 (0.9-1.2) 03/03/17 10:25 APTT 41.2 Seconds (25.6-37.1) H 03/03/17 10:25 - Respiratory Exam Respiratory Exam: NORMAL BREATHING PATTERN - Cardiovascular Exam Cardiovascular Exam: Tachycardia - GI/Abdominal Exam GI & Abdominal Exam: Normal Bowel Sounds Assessment and Plan - Assessment and Plan (Free Text) Assessment: Disposition?? awaiting transfer to [place] Pt has medical decision making capacity but is financially vulnerable and benefits from legal guardianship Court and Social service involved Pt is [place] S/P Bradycardia Hypotenson chronic A-fib Sepsis ? Autonomic dysfunction? Lactate elevated ID ABX completed R shoulder pain Dec ROM xrays subluxation Ultram PRN PT Recuurent c-diff Gastroentritis? resolved LGI bleed Thrombocytopenia Thrombocytopenia chronic Decubitus ulcer buttocks DVT prophylaxis SCD (no Lovenox due to thrombocytopenia) S/P UTI Enterrococus S/P Urinary retention S/P UTI Proteus S/P Pnuemonia
[2017-03-14] MEDS: LEVODOPA PO SCH ×3 (06:00→21:24)
[2017-03-14] MEDS: CARBIDOPA PO SCH ×3 (06:00→21:24)
[2017-03-14] MEDS: Bethanechol 50 MG TAB PO SCH ×3 (08:54→17:19)
--- NOTE | 2017-03-14 10:48 | CP.PCM.PN ---
Subjective - Date & Time of Evaluation Date of Evaluation: 03/14/17 Time of Evaluation: 22:22 - Subjective Subjective: Above noted Objective - Vital Signs/Intake and Output Vital Signs (last 24 hours): Temp Pulse Resp BP Pulse Ox 97.4 F L 49 L 20 97/60 L 100 03/14/17 08:08 03/14/17 08:08 03/14/17 08:08 03/14/17 08:08 03/14/17 08:08 - Medications Medications: Current Medications Acetaminophen (Tylenol 325mg Tab) 650 mg PO Q6 PRN PRN Reason: Pain, Mild (1-3) Amantadine HCl (Amantadine 100 Mg Cap) 100 mg PO BID [facility] Last Admin: 03/14/17 08:55 Dose: 100 mg Benzocaine/Menthol (Cepacol Sore Throat) 1 morro PO TID PRN PRN Reason: Sore Throat Bethanechol Chloride (Urecholine) 50 mg PO TID [facility] Last Admin: 03/14/17 08:54 Dose: 50 mg Carbidopa/Levodopa (Rytary Er 48.75 Mg-195 Mg Cap) 1 cap PO TID@0500,1300,2100 [facility] Last Admin: 03/14/17 06:00 Dose: 1 cap Docusate Sodium (Colace) 100 mg PO BID [facility] Last Admin: 03/14/17 08:55 Dose: 100 mg Famotidine (Pepcid) 40 mg PO HS [facility] Last Admin: 03/13/17 21:02 Dose: 40 mg Heparin Sodium (Porcine) (Heparin) 5,000 units SC Q8 TU PRN Reason: Protocol Last Admin: 03/14/17 08:54 Dose: 5,000 units - Labs Labs: 03/03/17 10:25 03/03/17 10:25 PT 11.7 Seconds (9.8-13.1) 03/03/17 10:25 INR 1.1 (0.9-1.2) 03/03/17 10:25 APTT 41.2 Seconds (25.6-37.1) H 03/03/17 10:25 - Respiratory Exam Respiratory Exam: NORMAL BREATHING PATTERN - Cardiovascular Exam Cardiovascular Exam: REGULAR RHYTHM - GI/Abdominal Exam GI & Abdominal Exam: Normal Bowel Sounds Assessment and Plan - Assessment and Plan (Free Text) Assessment: Disposition?? awaiting transfer to [place] Pt has medical decision making capacity but is financially vulnerable and benefits from legal guardianship Court and Social service involved Pt is [place] WWII S/P Bradycardia Hypotenson chronic A-fib Sepsis ? Autonomic dysfunction? Lactate elevated ID ABX completed R shoulder pain Dec ROM xrays subluxation Ultram PRN PT Recuurent c-diff Gastroentritis? resolved LGI bleed Thrombocytopenia Thrombocytopenia chronic Decubitus ulcer buttocks DVT prophylaxis SCD (no Lovenox due to thrombocytopenia) S/P UTI Enterrococus S/P Urinary retention S/P UTI Proteus S/P Pnuemonia
[2017-03-15] MEDS: LEVODOPA PO SCH ×3 (05:31→22:07)
[2017-03-15] MEDS: CARBIDOPA PO SCH ×3 (05:31→22:07)
[2017-03-15] MEDS: Bethanechol 50 MG TAB PO SCH ×3 (09:04→16:38)
--- NOTE | 2017-03-15 11:22 | PN ---
DATE: 03/15/2017. SUBJECTIVE: The patient is seen and examined. Patient seen through Dr. Najera while he is awake. Patient is sleepy, arousable, not able to provide informative history. REVIEW OF SYSTEMS: No specific history reported by nursing staff. PHYSICAL EXAMINATION: GENERAL: The patient is in no acute distress. VITAL SIGNS: Stable. HEART: S1 and S2 normal, regular. LUNGS: Good bilateral air exchange. ABDOMEN: Soft and nontender. EXTREMITIES: No calf swelling. No tenderness. No acute ischemia. No edema. CENTRAL NERVOUS SYSTEM: Essentially unchanged. DIAGNOSTIC DATA: Available diagnostic data reviewed. ASSESSMENT: Overall, patient is medically stable. Patient had last lactate level which is little bit elevated although the patient does not look septic. PLAN: As ordered. Rashaun Mendoza MD
[2017-03-16] MEDS: LEVODOPA PO SCH ×3 (05:55→21:51)
[2017-03-16] MEDS: CARBIDOPA PO SCH ×3 (05:55→21:51)
[2017-03-16 08:25] LABS: MEAN CELL VOLUME 96.1 fl (80.0-94.0); MEAN CORPUSCULAR HEMOGLOBIN 32.1 pg (27.0-31.0); MEAN CORPUSCULAR HGB CONC 33.4 g/dL (33.0-37.0); RBC 3.72 Mil/uL (4.40-5.90); RED CELL DISTRIBUTION WIDTH 14.8 % (11.5-14.5); WHITE BLOOD COUNT 5.6 K/uL (4.8-10.8)
[2017-03-16 08:32] LABS: ALB/GLOB RATIO 1.2 (1.0-2.1); ALBUMIN 3.6 g/dL (3.5-5.0); ALT/SGPT 21 U/L (21-72); AST/SGOT 23 U/L (17-59); BLOOD UREA NITROGEN 22 mg/dl (9-20); GFR AFRICAN-AMERICAN > 60; GFR NON-AFRICAN AMERICAN > 60
[2017-03-16] MEDS: Bethanechol 50 MG TAB PO SCH ×3 (09:08→16:02)
[2017-03-17] MEDS: CARBIDOPA PO SCH ×3 (04:34→22:39)
[2017-03-17] MEDS: LEVODOPA PO SCH ×3 (04:34→22:39)
[2017-03-17] MEDS: Bethanechol 50 MG TAB PO SCH ×3 (07:59→16:34)
--- NOTE | 2017-03-17 08:54 | PN ---
DATE: 03/17/2017 SUBJECTIVE: The patient is seen and examined. Interim events noted. The patient seen through Dr. Najera while he is awake. The patient feels okay. No specific complaints. No chest pain. No shortness of breath. No specific history reported by nursing staff. PHYSICAL EXAMINATION: GENERAL: The patient is in no acute distress. VITAL SIGNS: Stable. HEART: S1 and S2 normal, regular. LUNGS: Good bilateral air exchange. ABDOMEN: Soft and nontender. EXTREMITIES: No edema. No calf swelling. No tenderness. No acute ischemia. CENTRAL NERVOUS SYSTEM: Essentially unchanged. DIAGNOSTIC DATA: Available diagnostic data reviewed. ASSESSMENT: Overall, the patient's general medical condition is stable. PLAN: As ordered. Rashaun Mendoza MD
[2017-03-18] MEDS: LEVODOPA PO SCH ×3 (04:12→20:36)
[2017-03-18] MEDS: CARBIDOPA PO SCH ×3 (04:12→20:36)
[2017-03-18] MEDS: Bethanechol 50 MG TAB PO SCH ×3 (08:27→16:44)
--- NOTE | 2017-03-18 08:51 | PN ---
DATE: 03/16/2017 SUBJECTIVE: The patient is seen and examined. Interim events noted. The patient remains in regular medical floor. . The patient is not able to provide informative history of review of systems, but denies any specific complaints. PHYSICAL EXAMINATION GENERAL: The patient is in no acute distress. VITAL SIGNS: Stable. Physical exam is without any change. DIAGNOSTIC DATA: Available diagnostic data reviewed. CBC, CMP are unremarkable. ASSESSMENT: Overall, the patient's general medical condition is stable. PLAN: As ordered. Rashaun Mendoza MD
--- NOTE | 2017-03-18 20:40 | CP.PCM.PN ---
Subjective - Date & Time of Evaluation Date of Evaluation: 03/18/17 Time of Evaluation: 22:22 - Subjective Subjective: Above noted Objective - Vital Signs/Intake and Output Vital Signs (last 24 hours): Temp Pulse Resp BP Pulse Ox 97.6 F 66 20 100/58 L 96 03/18/17 16:38 03/18/17 16:38 03/18/17 16:38 03/18/17 16:38 03/18/17 16:38 - Medications Medications: Current Medications Acetaminophen (Tylenol 325mg Tab) 650 mg PO Q6 PRN PRN Reason: Pain, Mild (1-3) Last Admin: 03/16/17 09:52 Dose: 650 mg Amantadine HCl (Amantadine 100 Mg Cap) 100 mg PO BID [facility] Last Admin: 03/18/17 16:44 Dose: 100 mg Benzocaine/Menthol (Cepacol Sore Throat) 1 morro PO TID PRN PRN Reason: Sore Throat Bethanechol Chloride (Urecholine) 50 mg PO TID [facility] Last Admin: 03/18/17 16:44 Dose: 50 mg Carbidopa/Levodopa (Rytary Er 48.75 Mg-195 Mg Cap) 1 cap PO TID@0500,1300,2100 [facility] Last Admin: 03/18/17 20:36 Dose: 1 cap Docusate Sodium (Colace) 100 mg PO BID [facility] Last Admin: 03/18/17 17:08 Dose: 100 mg Famotidine (Pepcid) 40 mg PO HS [facility] Last Admin: 03/17/17 22:39 Dose: 40 mg Heparin Sodium (Porcine) (Heparin) 5,000 units SC Q8 [facility] PRN Reason: Protocol Last Admin: 03/18/17 16:44 Dose: 5,000 units - Labs Labs: 03/16/17 06:00 03/16/17 06:00 PT 11.7 Seconds (9.8-13.1) 03/03/17 10:25 INR 1.1 (0.9-1.2) 03/03/17 10:25 APTT 41.2 Seconds (25.6-37.1) H 03/03/17 10:25 - Respiratory Exam Respiratory Exam: NORMAL BREATHING PATTERN - Cardiovascular Exam Cardiovascular Exam: REGULAR RHYTHM - GI/Abdominal Exam GI & Abdominal Exam: Normal Bowel Sounds Assessment and Plan - Assessment and Plan (Free Text) Assessment: Disposition?? awaiting transfer to [place] Pt has medical decision making capacity but is financially vulnerable and benefits from legal guardianship Court and Social service involved Pt is [place] WWII S/P Bradycardia Hypotenson chronic A-fib Sepsis ? Autonomic dysfunction? Lactate elevated ID ABX completed R shoulder pain Dec ROM xrays subluxation Ultram PRN PT Recuurent c-diff Gastroentritis? resolved LGI bleed Thrombocytopenia Thrombocytopenia chronic Decubitus ulcer buttocks DVT prophylaxis SCD (no Lovenox due to thrombocytopenia) S/P UTI Enterrococus S/P Urinary retention S/P UTI Proteus S/P Pnuemonia
[2017-03-19] MEDS: CARBIDOPA PO SCH ×3 (04:55→21:54)
[2017-03-19] MEDS: LEVODOPA PO SCH ×3 (04:55→21:54)
[2017-03-19] MEDS: Bethanechol 50 MG TAB PO SCH ×3 (08:31→16:23)
--- NOTE | 2017-03-19 17:42 | CP.PCM.PN ---
Subjective - Date & Time of Evaluation Date of Evaluation: 03/19/17 Time of Evaluation: 22:22 - Subjective Subjective: Above noted Objective - Vital Signs/Intake and Output Vital Signs (last 24 hours): Temp Pulse Resp BP Pulse Ox 97.6 F 72 20 126/71 98 03/19/17 16:19 03/19/17 16:19 03/19/17 16:19 03/19/17 16:19 03/19/17 16:19 - Medications Medications: Current Medications Acetaminophen (Tylenol 325mg Tab) 650 mg PO Q6 PRN PRN Reason: Pain, Mild (1-3) Last Admin: 03/19/17 08:31 Dose: 650 mg Amantadine HCl (Amantadine 100 Mg Cap) 100 mg PO BID [facility] Last Admin: 03/19/17 16:23 Dose: 100 mg Benzocaine/Menthol (Cepacol Sore Throat) 1 morro PO TID PRN PRN Reason: Sore Throat Bethanechol Chloride (Urecholine) 50 mg PO TID [facility] Last Admin: 03/19/17 16:23 Dose: 50 mg Carbidopa/Levodopa (Rytary Er 48.75 Mg-195 Mg Cap) 1 cap PO TID@0500,1300,2100 [facility] Last Admin: 03/19/17 12:35 Dose: 1 cap Docusate Sodium (Colace) 100 mg PO BID [facility] Last Admin: 03/19/17 16:23 Dose: 100 mg Famotidine (Pepcid) 40 mg PO HS [facility] Last Admin: 03/18/17 21:09 Dose: 40 mg Heparin Sodium (Porcine) (Heparin) 5,000 units SC Q8 [facility] PRN Reason: Protocol Last Admin: 03/19/17 16:23 Dose: 5,000 units - Labs Labs: 03/16/17 06:00 03/16/17 06:00 PT 11.7 Seconds (9.8-13.1) 03/03/17 10:25 INR 1.1 (0.9-1.2) 03/03/17 10:25 APTT 41.2 Seconds (25.6-37.1) H 03/03/17 10:25 - Respiratory Exam Respiratory Exam: NORMAL BREATHING PATTERN - Cardiovascular Exam Cardiovascular Exam: REGULAR RHYTHM - GI/Abdominal Exam GI & Abdominal Exam: Normal Bowel Sounds Assessment and Plan - Assessment and Plan (Free Text) Assessment: Disposition?? awaiting transfer to [place] Pt has medical decision making capacity but is financially vulnerable and benefits from legal guardianship Court and Social service involved Pt is [place] WWII S/P Bradycardia Hypotenson chronic A-fib Sepsis ? Autonomic dysfunction? Lactate elevated ID ABX completed R shoulder pain Dec ROM xrays subluxation Ultram PRN PT Recuurent c-diff Gastroentritis? resolved LGI bleed Thrombocytopenia Thrombocytopenia chronic Decubitus ulcer buttocks DVT prophylaxis SCD (no Lovenox due to thrombocytopenia) S/P UTI Enterrococus S/P Urinary retention S/P UTI Proteus S/P Pnuemonia
[2017-03-20] MEDS: CARBIDOPA PO SCH ×3 (04:41→21:00)
[2017-03-20] MEDS: LEVODOPA PO SCH ×3 (04:41→21:00)
[2017-03-20] MEDS: Bethanechol 50 MG TAB PO SCH ×3 (08:21→16:30)
[2017-03-20] MEDS: Benzocaine/Menthol (Cepacol) Lozenge PO PRN (08:22)
--- NOTE | 2017-03-20 20:33 | CP.PCM.PN ---
Subjective - Date & Time of Evaluation Date of Evaluation: 03/20/17 Time of Evaluation: 22:22 - Subjective Subjective: Above noted Objective - Vital Signs/Intake and Output Vital Signs (last 24 hours): Temp Pulse Resp BP Pulse Ox 97.3 F L 80 20 110/62 99 03/20/17 16:06 03/20/17 16:06 03/20/17 16:06 03/20/17 16:06 03/20/17 16:06 - Medications Medications: Current Medications Acetaminophen (Tylenol 325mg Tab) 650 mg PO Q6 PRN PRN Reason: Pain, Mild (1-3) Last Admin: 03/20/17 08:21 Dose: 650 mg Amantadine HCl (Amantadine 100 Mg Cap) 100 mg PO BID [facility] Last Admin: 03/20/17 16:29 Dose: 100 mg Benzocaine/Menthol (Cepacol Sore Throat) 1 morro PO TID PRN PRN Reason: Sore Throat Last Admin: 03/20/17 08:22 Dose: 1 morro Bethanechol Chloride (Urecholine) 50 mg PO TID [facility] Last Admin: 03/20/17 16:30 Dose: 50 mg Carbidopa/Levodopa (Rytary Er 48.75 Mg-195 Mg Cap) 1 cap PO TID@0500,1300,2100 [facility] Last Admin: 03/20/17 13:00 Dose: 1 cap Docusate Sodium (Colace) 100 mg PO BID [facility] Last Admin: 03/20/17 16:29 Dose: 100 mg Famotidine (Pepcid) 40 mg PO HS [facility] Last Admin: 03/19/17 21:54 Dose: 40 mg Fluocinonide (Lidex 0.05% Oint) 1 applic TOP BID [facility] Heparin Sodium (Porcine) (Heparin) 5,000 units SC Q8 TU PRN Reason: Protocol Last Admin: 03/20/17 16:29 Dose: 5,000 units - Labs Labs: 03/16/17 06:00 03/16/17 06:00 PT 11.7 Seconds (9.8-13.1) 03/03/17 10:25 INR 1.1 (0.9-1.2) 03/03/17 10:25 APTT 41.2 Seconds (25.6-37.1) H 08/21/17 10:25 - Respiratory Exam Respiratory Exam: NORMAL BREATHING PATTERN - Cardiovascular Exam Cardiovascular Exam: REGULAR RHYTHM - GI/Abdominal Exam GI & Abdominal Exam: Normal Bowel Sounds Assessment and Plan - Assessment and Plan (Free Text) Assessment: Disposition?? awaiting transfer to [place] Pt has medical decision making capacity but is financially vulnerable and benefits from legal guardianship Court and Social service involved Pt is WW[place] S/P Bradycardia Hypotenson chronic A-fib Sepsis ? Autonomic dysfunction? Lactate elevated ID ABX completed R shoulder pain Dec ROM xrays subluxation Ultram PRN PT Recuurent c-diff Gastroentritis? resolved LGI bleed Thrombocytopenia Thrombocytopenia chronic Decubitus ulcer buttocks DVT prophylaxis SCD (no Lovenox due to thrombocytopenia) S/P UTI Enterrococus S/P Urinary retention S/P UTI Proteus S/P Pnuemonia
[2017-03-21] MEDS: CARBIDOPA PO SCH ×3 (06:13→21:29)
[2017-03-21] MEDS: LEVODOPA PO SCH ×3 (06:13→21:29)
[2017-03-21] MEDS: Bethanechol 50 MG TAB PO SCH ×3 (09:04→16:10)
--- NOTE | 2017-03-21 18:33 | CP.PCM.PN ---
Subjective - Date & Time of Evaluation Date of Evaluation: 03/21/17 Time of Evaluation: 22:22 - Subjective Subjective: Above noted Objective - Vital Signs/Intake and Output Vital Signs (last 24 hours): Temp Pulse Resp BP Pulse Ox 97.6 F 72 20 122/63 96 03/21/17 16:40 03/21/17 16:40 03/21/17 16:40 03/21/17 16:40 03/21/17 16:40 - Medications Medications: Current Medications Acetaminophen (Tylenol 325mg Tab) 650 mg PO Q6 PRN PRN Reason: Pain, Mild (1-3) Last Admin: 03/20/17 08:21 Dose: 650 mg Amantadine HCl (Amantadine 100 Mg Cap) 100 mg PO BID [facility] Last Admin: 03/21/17 16:10 Dose: 100 mg Benzocaine/Menthol (Cepacol Sore Throat) 1 morro PO TID PRN PRN Reason: Sore Throat Last Admin: 03/20/17 08:22 Dose: 1 morro Bethanechol Chloride (Urecholine) 50 mg PO TID [facility] Last Admin: 03/21/17 16:10 Dose: 50 mg Carbidopa/Levodopa (Rytary Er 48.75 Mg-195 Mg Cap) 1 cap PO TID@0500,1300,2100 [facility] Last Admin: 03/21/17 12:18 Dose: 1 cap Docusate Sodium (Colace) 100 mg PO BID [facility] Last Admin: 03/21/17 16:11 Dose: 100 mg Famotidine (Pepcid) 40 mg PO HS [facility] Last Admin: 03/20/17 22:00 Dose: 40 mg Fluocinonide (Lidex 0.05% Oint) 1 applic TOP BID [facility] Last Admin: 03/21/17 16:11 Dose: 1 applic Heparin Sodium (Porcine) (Heparin) 5,000 units SC Q8 [facility] PRN Reason: Protocol Last Admin: 03/21/17 16:11 Dose: 5,000 units - Labs Labs: 03/16/17 06:00 03/16/17 06:00 PT 11.7 Seconds (9.8-13.1) 03/03/17 10:25 INR 1.1 (0.9-1.2) 03/03/17 10:25 APTT 41.2 Seconds (25.6-37.1) H 03/03/17 10:25 - Respiratory Exam Respiratory Exam: NORMAL BREATHING PATTERN - Cardiovascular Exam Cardiovascular Exam: REGULAR RHYTHM - GI/Abdominal Exam GI & Abdominal Exam: Normal Bowel Sounds Assessment and Plan - Assessment and Plan (Free Text) Assessment: Disposition?? awaiting transfer to [place] Pt has medical decision making capacity but is financially vulnerable and benefits from legal guardianship Court and Social service involved Pt is [place] S/P Bradycardia Hypotenson chronic A-fib Sepsis ? Autonomic dysfunction? Lactate elevated ID ABX completed R shoulder pain Dec ROM xrays subluxation Ultram PRN PT Recuurent c-diff Gastroentritis? resolved LGI bleed Thrombocytopenia Thrombocytopenia chronic Decubitus ulcer buttocks DVT prophylaxis SCD (no Lovenox due to thrombocytopenia) S/P UTI Enterrococus S/P Urinary retention S/P UTI Proteus S/P Pnuemonia
[2017-03-22] MEDS: CARBIDOPA PO SCH ×3 (05:18→21:12)
[2017-03-22] MEDS: LEVODOPA PO SCH ×3 (05:18→21:12)
[2017-03-22] MEDS: Bethanechol 50 MG TAB PO SCH ×3 (09:07→16:36)
--- NOTE | 2017-03-22 20:10 | CP.PCM.PN ---
Subjective - Date & Time of Evaluation Date of Evaluation: 03/22/17 Time of Evaluation: 22:22 - Subjective Subjective: No change Objective - Vital Signs/Intake and Output Vital Signs (last 24 hours): Temp Pulse Resp BP Pulse Ox 97.6 F 78 20 120/63 99 03/22/17 16:32 03/22/17 16:32 03/22/17 16:32 03/22/17 16:32 03/22/17 16:32 - Medications Medications: Current Medications Acetaminophen (Tylenol 325mg Tab) 650 mg PO Q6 PRN PRN Reason: Pain, Mild (1-3) Last Admin: 03/20/17 08:21 Dose: 650 mg Amantadine HCl (Amantadine 100 Mg Cap) 100 mg PO BID [facility] Last Admin: 03/22/17 16:37 Dose: 100 mg Benzocaine/Menthol (Cepacol Sore Throat) 1 morro PO TID PRN PRN Reason: Sore Throat Last Admin: 03/20/17 08:22 Dose: 1 morro Bethanechol Chloride (Urecholine) 50 mg PO TID [facility] Last Admin: 03/22/17 16:36 Dose: 50 mg Carbidopa/Levodopa (Rytary Er 48.75 Mg-195 Mg Cap) 1 cap PO TID@0500,1300,2100 [facility] Last Admin: 03/22/17 12:41 Dose: 1 cap Docusate Sodium (Colace) 100 mg PO BID [facility] Last Admin: 03/22/17 16:36 Dose: 100 mg Famotidine (Pepcid) 40 mg PO HS [facility] Last Admin: 03/21/17 21:29 Dose: 40 mg Fluocinonide (Lidex 0.05% Oint) 1 applic TOP BID [facility] Last Admin: 03/22/17 16:36 Dose: 1 applic Heparin Sodium (Porcine) (Heparin) 5,000 units SC Q8 [facility] PRN Reason: Protocol Last Admin: 03/22/17 16:36 Dose: 5,000 units - Labs Labs: 03/16/17 06:00 03/16/17 06:00 PT 11.7 Seconds (9.8-13.1) 03/03/17 10:25 INR 1.1 (0.9-1.2) 03/03/17 10:25 APTT 41.2 Seconds (25.6-37.1) H 03/03/17 10:25 - Respiratory Exam Respiratory Exam: Wheezes, NORMAL BREATHING PATTERN - Cardiovascular Exam Cardiovascular Exam: REGULAR RHYTHM - GI/Abdominal Exam GI & Abdominal Exam: Normal Bowel Sounds Assessment and Plan - Assessment and Plan (Free Text) Assessment: Disposition?? awaiting transfer to [place] Pt has medical decision making capacity but is financially vulnerable and benefits from legal guardianship Court and Social service involved Pt is [place] WW[place] S/P Bradycardia Hypotenson chronic A-fib Sepsis ? Autonomic dysfunction? Lactate elevated ID ABX completed R shoulder pain Dec ROM xrays subluxation Ultram PRN PT Recuurent c-diff Gastroentritis? resolved LGI bleed Thrombocytopenia Thrombocytopenia chronic Decubitus ulcer buttocks DVT prophylaxis SCD (no Lovenox due to thrombocytopenia) S/P UTI Enterrococus S/P Urinary retention S/P UTI Proteus S/P Pnuemonia
[2017-03-23] MEDS: CARBIDOPA PO SCH ×3 (04:23→20:57)
[2017-03-23] MEDS: LEVODOPA PO SCH ×3 (04:23→20:57)
[2017-03-23] MEDS: Bethanechol 50 MG TAB PO SCH ×3 (10:13→17:08)
--- NOTE | 2017-03-23 23:30 | CP.PCM.PN ---
Subjective - Date & Time of Evaluation Date of Evaluation: 03/23/17 Time of Evaluation: 22:22 - Subjective Subjective: Above noted Objective - Vital Signs/Intake and Output Vital Signs (last 24 hours): Temp Pulse Resp BP Pulse Ox 98.7 F 69 20 107/66 96 03/23/17 16:10 03/23/17 16:10 03/23/17 16:10 03/23/17 16:10 03/23/17 16:10 - Medications Medications: Current Medications Acetaminophen (Tylenol 325mg Tab) 650 mg PO Q6 PRN PRN Reason: Pain, Mild (1-3) Last Admin: 03/20/17 08:21 Dose: 650 mg Amantadine HCl (Amantadine 100 Mg Cap) 100 mg PO BID [facility] Last Admin: 03/23/17 17:06 Dose: 100 mg Benzocaine/Menthol (Cepacol Sore Throat) 1 morro PO TID PRN PRN Reason: Sore Throat Last Admin: 03/20/17 08:22 Dose: 1 morro Bethanechol Chloride (Urecholine) 50 mg PO TID [facility] Last Admin: 03/23/17 17:08 Dose: 50 mg Carbidopa/Levodopa (Rytary Er 48.75 Mg-195 Mg Cap) 1 cap PO TID@0500,1300,2100 [facility] Last Admin: 03/23/17 20:57 Dose: 1 cap Docusate Sodium (Colace) 100 mg PO BID [facility] Last Admin: 03/23/17 17:07 Dose: 100 mg Famotidine (Pepcid) 40 mg PO HS [facility] Last Admin: 03/23/17 22:09 Dose: 40 mg Fluocinonide (Lidex 0.05% Oint) 1 applic TOP BID [facility] Last Admin: 03/23/17 17:07 Dose: 1 applic Heparin Sodium (Porcine) (Heparin) 5,000 units SC Q8 [facility] PRN Reason: Protocol Last Admin: 03/23/17 17:07 Dose: 5,000 units Nystatin (Nystop Topical Powder) 1 applic TOP TID [facility] - Labs Labs: 03/16/17 06:00 03/16/17 06:00 PT 11.7 Seconds (9.8-13.1) 03/03/17 10:25 INR 1.1 (0.9-1.2) 03/03/17 10:25 APTT 41.2 Seconds (25.6-37.1) H 03/03/17 10:25 - Respiratory Exam Respiratory Exam: NORMAL BREATHING PATTERN - Cardiovascular Exam Cardiovascular Exam: REGULAR RHYTHM - GI/Abdominal Exam GI & Abdominal Exam: Normal Bowel Sounds Assessment and Plan - Assessment and Plan (Free Text) Assessment: Disposition?? awaiting transfer to [place] Pt has medical decision making capacity but is financially vulnerable and benefits from legal guardianship Court and Social service involved Pt is [place] WWII S/P Bradycardia Hypotenson chronic A-fib Sepsis ? Autonomic dysfunction? Lactate elevated ID ABX completed R shoulder pain Dec ROM xrays subluxation Ultram PRN PT Recuurent c-diff Gastroentritis? resolved LGI bleed Thrombocytopenia Thrombocytopenia chronic Decubitus ulcer buttocks DVT prophylaxis SCD (no Lovenox due to thrombocytopenia) S/P UTI Enterrococus S/P Urinary retention S/P UTI Proteus S/P Pnuemonia
[2017-03-24] MEDS: LEVODOPA PO SCH ×3 (05:36→21:03)
[2017-03-24] MEDS: CARBIDOPA PO SCH ×3 (05:36→21:03)
[2017-03-24] MEDS: Bethanechol 50 MG TAB PO SCH ×3 (09:49→17:36)
--- NOTE | 2017-03-24 20:20 | CP.PCM.PN ---
Subjective - Date & Time of Evaluation Date of Evaluation: 03/24/17 Time of Evaluation: 22:22 - Subjective Subjective: Above noted Objective - Vital Signs/Intake and Output Vital Signs (last 24 hours): Temp Pulse Resp BP Pulse Ox 97.9 F 71 20 104/59 L 100 03/24/17 16:05 03/24/17 16:05 03/24/17 16:05 03/24/17 16:05 03/24/17 16:05 - Medications Medications: Current Medications Acetaminophen (Tylenol 325mg Tab) 650 mg PO Q6 PRN PRN Reason: Pain, Mild (1-3) Last Admin: 03/20/17 08:21 Dose: 650 mg Amantadine HCl (Amantadine 100 Mg Cap) 100 mg PO BID [facility] Last Admin: 03/24/17 17:37 Dose: 100 mg Benzocaine/Menthol (Cepacol Sore Throat) 1 morro PO TID PRN PRN Reason: Sore Throat Last Admin: 03/20/17 08:22 Dose: 1 morro Bethanechol Chloride (Urecholine) 50 mg PO TID [facility] Last Admin: 03/24/17 17:36 Dose: 50 mg Carbidopa/Levodopa (Rytary Er 48.75 Mg-195 Mg Cap) 1 cap PO TID@0500,1300,2100 [facility] Last Admin: 03/24/17 13:00 Dose: 1 cap Docusate Sodium (Colace) 100 mg PO BID [facility] Last Admin: 03/24/17 17:35 Dose: 100 mg Famotidine (Pepcid) 40 mg PO HS [facility] Last Admin: 03/23/17 22:09 Dose: 40 mg Fluocinonide (Lidex 0.05% Oint) 1 applic TOP BID [facility] Last Admin: 03/24/17 17:36 Dose: 1 applic Heparin Sodium (Porcine) (Heparin) 5,000 units SC Q8 [facility] PRN Reason: Protocol Last Admin: 03/24/17 17:35 Dose: 5,000 units Nystatin (Nystop Topical Powder) 1 applic TOP TID [facility] Last Admin: 03/24/17 17:36 Dose: 1 applic - Labs Labs: 03/16/17 06:00 03/16/17 06:00 PT 11.7 Seconds (9.8-13.1) 03/03/17 10:25 INR 1.1 (0.9-1.2) 03/03/17 10:25 APTT 41.2 Seconds (25.6-37.1) H 03/03/17 10:25 - Respiratory Exam Respiratory Exam: NORMAL BREATHING PATTERN - Cardiovascular Exam Cardiovascular Exam: REGULAR RHYTHM - GI/Abdominal Exam GI & Abdominal Exam: Normal Bowel Sounds Assessment and Plan - Assessment and Plan (Free Text) Assessment: Disposition?? awaiting transfer to [place] Pt has medical decision making capacity but is financially vulnerable and benefits from legal guardianship Court and Social service involved Pt is [place] WW[place] S/P Bradycardia Hypotenson chronic A-fib Sepsis ? Autonomic dysfunction? Lactate elevated ID ABX completed R shoulder pain Dec ROM xrays subluxation Ultram PRN PT Recuurent c-diff Gastroentritis? resolved LGI bleed Thrombocytopenia Thrombocytopenia chronic Decubitus ulcer buttocks DVT prophylaxis SCD (no Lovenox due to thrombocytopenia) S/P UTI Enterrococus S/P Urinary retention S/P UTI Proteus S/P Pnuemonia
[2017-03-25] MEDS: CARBIDOPA PO SCH ×3 (05:49→21:42)
[2017-03-25] MEDS: LEVODOPA PO SCH ×3 (05:49→21:42)
[2017-03-25] MEDS: Bethanechol 50 MG TAB PO SCH ×3 (09:36→17:21)
--- NOTE | 2017-03-25 16:30 | CP.PCM.PN ---
Subjective - Date & Time of Evaluation Date of Evaluation: 03/25/17 Time of Evaluation: 22:22 - Subjective Subjective: Above noted Objective - Vital Signs/Intake and Output Vital Signs (last 24 hours): Temp Pulse Resp BP Pulse Ox 98.2 F 78 19 118/74 95 03/25/17 15:45 03/25/17 15:45 03/25/17 15:45 03/25/17 15:45 03/25/17 15:45 - Medications Medications: Current Medications Acetaminophen (Tylenol 325mg Tab) 650 mg PO Q6 PRN PRN Reason: Pain, Mild (1-3) Last Admin: 03/20/17 08:21 Dose: 650 mg Amantadine HCl (Amantadine 100 Mg Cap) 100 mg PO BID [facility] Last Admin: 03/25/17 09:36 Dose: 100 mg Benzocaine/Menthol (Cepacol Sore Throat) 1 morro PO TID PRN PRN Reason: Sore Throat Last Admin: 03/20/17 08:22 Dose: 1 omrro Bethanechol Chloride (Urecholine) 50 mg PO TID [facility] Last Admin: 03/25/17 13:18 Dose: 50 mg Carbidopa/Levodopa (Rytary Er 48.75 Mg-195 Mg Cap) 1 cap PO TID@0500,1300,2100 [facility] Last Admin: 03/25/17 13:19 Dose: 1 cap Docusate Sodium (Colace) 100 mg PO BID [facility] Last Admin: 03/25/17 09:36 Dose: 100 mg Famotidine (Pepcid) 40 mg PO HS [facility] Last Admin: 03/24/17 21:03 Dose: 40 mg Fluocinonide (Lidex 0.05% Oint) 1 applic TOP BID [facility] Last Admin: 03/25/17 09:38 Dose: 1 applic Heparin Sodium (Porcine) (Heparin) 5,000 units SC Q8 [facility] PRN Reason: Protocol Last Admin: 03/25/17 09:35 Dose: 5,000 units Nystatin (Nystop Topical Powder) 1 applic TOP TID [facility] Last Admin: 03/25/17 13:17 Dose: 1 applic - Labs Labs: 03/16/17 06:00 03/16/17 06:00 PT 11.7 Seconds (9.8-13.1) 03/03/17 10:25 INR 1.1 (0.9-1.2) 03/03/17 10:25 APTT 41.2 Seconds (25.6-37.1) H 03/03/17 10:25 - Respiratory Exam Respiratory Exam: NORMAL BREATHING PATTERN - Cardiovascular Exam Cardiovascular Exam: REGULAR RHYTHM - GI/Abdominal Exam GI & Abdominal Exam: Normal Bowel Sounds Assessment and Plan - Assessment and Plan (Free Text) Assessment: Disposition?? awaiting transfer to [place] Pt has medical decision making capacity but is financially vulnerable and benefits from legal guardianship Court and Social service involved Pt is [place] S/P Bradycardia Hypotenson chronic A-fib Sepsis ? Autonomic dysfunction? Lactate elevated ID ABX completed R shoulder pain Dec ROM xrays subluxation Ultram PRN PT Recuurent c-diff Gastroentritis? resolved LGI bleed Thrombocytopenia Thrombocytopenia chronic Decubitus ulcer buttocks DVT prophylaxis SCD (no Lovenox due to thrombocytopenia) S/P UTI Enterrococus S/P Urinary retention S/P UTI Proteus S/P Pnuemonia
[2017-03-25] MEDS: Benzocaine/Menthol (Cepacol) Lozenge PO PRN (18:47)
[2017-03-26] MEDS: LEVODOPA PO SCH ×3 (05:04→23:13)
[2017-03-26] MEDS: CARBIDOPA PO SCH ×3 (05:04→23:13)
[2017-03-26] MEDS: Bethanechol 50 MG TAB PO SCH ×3 (09:33→16:57)
--- NOTE | 2017-03-26 18:22 | CP.PCM.PN ---
Subjective - Date & Time of Evaluation Date of Evaluation: 03/26/17 Time of Evaluation: 22:22 - Subjective Subjective: above noted Objective - Vital Signs/Intake and Output Vital Signs (last 24 hours): Temp Pulse Resp BP Pulse Ox 97.9 F 63 17 124/74 97 03/26/17 15:46 03/26/17 15:46 03/26/17 15:46 03/26/17 15:46 03/26/17 15:46 - Medications Medications: Current Medications Acetaminophen (Tylenol 325mg Tab) 650 mg PO Q6 PRN PRN Reason: Pain, Mild (1-3) Last Admin: 03/20/17 08:21 Dose: 650 mg Amantadine HCl (Amantadine 100 Mg Cap) 100 mg PO BID [facility] Last Admin: 03/26/17 16:56 Dose: 100 mg Benzocaine/Menthol (Cepacol Sore Throat) 1 morro PO TID PRN PRN Reason: Sore Throat Last Admin: 03/25/17 18:47 Dose: 1 morro Bethanechol Chloride (Urecholine) 50 mg PO TID [facility] Last Admin: 03/26/17 16:57 Dose: 50 mg Carbidopa/Levodopa (Rytary Er 48.75 Mg-195 Mg Cap) 1 cap PO TID@0500,1300,2100 [facility] Last Admin: 03/26/17 13:14 Dose: 1 cap Docusate Sodium (Colace) 100 mg PO BID [facility] Last Admin: 03/26/17 16:56 Dose: 100 mg Famotidine (Pepcid) 40 mg PO HS [facility] Last Admin: 03/25/17 21:42 Dose: 40 mg Fluocinonide (Lidex 0.05% Oint) 1 applic TOP BID [facility] Last Admin: 03/26/17 09:33 Dose: Not Given Heparin Sodium (Porcine) (Heparin) 5,000 units SC Q8 [facility] PRN Reason: Protocol Last Admin: 03/26/17 16:56 Dose: 5,000 units Nystatin (Nystop Topical Powder) 1 applic TOP TID [facility] Last Admin: 03/26/17 16:56 Dose: 1 applic - Labs Labs: 03/16/17 06:00 03/16/17 06:00 PT 11.7 Seconds (9.8-13.1) 03/03/17 10:25 INR 1.1 (0.9-1.2) 03/03/17 10:25 APTT 41.2 Seconds (25.6-37.1) H 03/03/17 10:25 - Respiratory Exam Respiratory Exam: NORMAL BREATHING PATTERN - Cardiovascular Exam Cardiovascular Exam: REGULAR RHYTHM - GI/Abdominal Exam GI & Abdominal Exam: Normal Bowel Sounds Assessment and Plan - Assessment and Plan (Free Text) Assessment: Disposition?? awaiting transfer to [place] Pt has medical decision making capacity but is financially vulnerable and benefits from legal guardianship Court and Social service involved Pt is [place] WW[place] S/P Bradycardia Hypotenson chronic A-fib Sepsis ? Autonomic dysfunction? Lactate elevated ID ABX completed R shoulder pain Dec ROM xrays subluxation Ultram PRN PT Recuurent c-diff Gastroentritis? resolved LGI bleed Thrombocytopenia Thrombocytopenia chronic Decubitus ulcer buttocks DVT prophylaxis SCD (no Lovenox due to thrombocytopenia) S/P UTI Enterrococus S/P Urinary retention S/P UTI Proteus S/P Pnuemonia
[2017-03-27] MEDS: LEVODOPA PO SCH ×3 (05:35→21:58)
[2017-03-27] MEDS: CARBIDOPA PO SCH ×3 (05:35→21:58)
[2017-03-27] MEDS: Bethanechol 50 MG TAB PO SCH ×3 (08:27→16:28)
--- NOTE | 2017-03-27 20:40 | CP.PCM.PN ---
Subjective - Date & Time of Evaluation Date of Evaluation: 03/27/17 Time of Evaluation: 22:22 - Subjective Subjective: Above noted Objective - Vital Signs/Intake and Output Vital Signs (last 24 hours): Temp Pulse Resp BP Pulse Ox 97.5 F L 65 20 118/69 99 03/27/17 16:10 03/27/17 16:10 03/27/17 16:10 03/27/17 16:10 03/27/17 16:10 - Medications Medications: Current Medications Acetaminophen (Tylenol 325mg Tab) 650 mg PO Q6 PRN PRN Reason: Pain, Mild (1-3) Last Admin: 03/20/17 08:21 Dose: 650 mg Amantadine HCl (Amantadine 100 Mg Cap) 100 mg PO BID [facility] Last Admin: 03/27/17 16:28 Dose: 100 mg Benzocaine/Menthol (Cepacol Sore Throat) 1 morro PO TID PRN PRN Reason: Sore Throat Last Admin: 03/25/17 18:47 Dose: 1 morro Bethanechol Chloride (Urecholine) 50 mg PO TID [facility] Last Admin: 03/27/17 16:28 Dose: 50 mg Carbidopa/Levodopa (Rytary Er 48.75 Mg-195 Mg Cap) 1 cap PO TID@0500,1300,2100 [facility] Last Admin: 03/27/17 12:33 Dose: 1 cap Docusate Sodium (Colace) 100 mg PO BID [facility] Last Admin: 03/27/17 16:28 Dose: 100 mg Famotidine (Pepcid) 40 mg PO HS [facility] Last Admin: 03/26/17 23:13 Dose: 40 mg Fluocinonide (Lidex 0.05% Oint) 1 applic TOP BID [facility] Last Admin: 03/27/17 16:28 Dose: Not Given Heparin Sodium (Porcine) (Heparin) 5,000 units SC Q8 [facility] PRN Reason: Protocol Last Admin: 03/27/17 16:28 Dose: 5,000 units Nystatin (Nystop Topical Powder) 1 applic TOP TID [facility] Last Admin: 03/27/17 16:28 Dose: 1 applic - Labs Labs: 03/16/17 06:00 03/16/17 06:00 PT 11.7 Seconds (9.8-13.1) 03/03/17 10:25 INR 1.1 (0.9-1.2) 03/03/17 10:25 APTT 41.2 Seconds (25.6-37.1) H 03/03/17 10:25 - Respiratory Exam Respiratory Exam: NORMAL BREATHING PATTERN - Cardiovascular Exam Cardiovascular Exam: REGULAR RHYTHM - GI/Abdominal Exam GI & Abdominal Exam: Normal Bowel Sounds Assessment and Plan - Assessment and Plan (Free Text) Assessment: Disposition?? awaiting transfer to [place] Pt has medical decision making capacity but is financially vulnerable and benefits from legal guardianship Court and Social service involved Pt is [place] WW[place] S/P Bradycardia Hypotenson chronic A-fib Sepsis ? Autonomic dysfunction? Lactate elevated ID ABX completed R shoulder pain Dec ROM xrays subluxation Ultram PRN PT Recuurent c-diff Gastroentritis? resolved LGI bleed Thrombocytopenia Thrombocytopenia chronic Decubitus ulcer buttocks DVT prophylaxis SCD (no Lovenox due to thrombocytopenia) S/P UTI Enterrococus S/P Urinary retention S/P UTI Proteus S/P Pnuemonia
[2017-03-28] MEDS: LEVODOPA PO SCH ×3 (05:41→21:47)
[2017-03-28] MEDS: CARBIDOPA PO SCH ×3 (05:41→21:47)
[2017-03-28] MEDS: Bethanechol 50 MG TAB PO SCH ×3 (10:00→17:03)
--- NOTE | 2017-03-28 18:57 | CP.PCM.PN ---
Subjective - Date & Time of Evaluation Date of Evaluation: 03/28/17 Time of Evaluation: 22:22 - Subjective Subjective: Doing well Objective - Vital Signs/Intake and Output Vital Signs (last 24 hours): Temp Pulse Resp BP Pulse Ox 98.1 F 63 20 138/76 99 03/28/17 16:24 03/28/17 16:24 03/28/17 16:24 03/28/17 16:24 03/28/17 16:24 - Medications Medications: Current Medications Acetaminophen (Tylenol 325mg Tab) 650 mg PO Q6 PRN PRN Reason: Pain, Mild (1-3) Last Admin: 03/20/17 08:21 Dose: 650 mg Amantadine HCl (Amantadine 100 Mg Cap) 100 mg PO BID [facility] Last Admin: 03/28/17 17:04 Dose: 100 mg Benzocaine/Menthol (Cepacol Sore Throat) 1 morro PO TID PRN PRN Reason: Sore Throat Last Admin: 03/25/17 18:47 Dose: 1 morro Bethanechol Chloride (Urecholine) 50 mg PO TID [facility] Last Admin: 03/28/17 17:03 Dose: 50 mg Carbidopa/Levodopa (Rytary Er 48.75 Mg-195 Mg Cap) 1 cap PO TID@0500,1300,2100 [facility] Last Admin: 03/28/17 14:03 Dose: 1 cap Docusate Sodium (Colace) 100 mg PO BID [facility] Last Admin: 03/28/17 17:04 Dose: 100 mg Famotidine (Pepcid) 40 mg PO HS [facility] Last Admin: 03/27/17 21:58 Dose: 40 mg Fluocinonide (Lidex 0.05% Oint) 1 applic TOP BID [facility] Last Admin: 03/28/17 17:05 Dose: 1 applic Heparin Sodium (Porcine) (Heparin) 5,000 units SC Q8 [facility] PRN Reason: Protocol Last Admin: 03/28/17 17:05 Dose: 5,000 units Nystatin (Nystop Topical Powder) 1 applic TOP TID [facility] Last Admin: 03/28/17 17:06 Dose: 1 applic - Labs Labs: 03/16/17 06:00 03/16/17 06:00 PT 11.7 Seconds (9.8-13.1) 03/03/17 10:25 INR 1.1 (0.9-1.2) 03/03/17 10:25 APTT 41.2 Seconds (25.6-37.1) H 03/03/17 10:25 - Respiratory Exam Respiratory Exam: NORMAL BREATHING PATTERN - Cardiovascular Exam Cardiovascular Exam: REGULAR RHYTHM - GI/Abdominal Exam GI & Abdominal Exam: Normal Bowel Sounds Assessment and Plan - Assessment and Plan (Free Text) Assessment: Disposition?? awaiting transfer to [place] Pt has medical decision making capacity but is financially vulnerable and benefits from legal guardianship Court and Social service involved Pt is [place] WWII S/P Bradycardia Hypotenson chronic A-fib Sepsis ? Autonomic dysfunction? Lactate elevated ID ABX completed R shoulder pain Dec ROM xrays subluxation Ultram PRN PT Recuurent c-diff Gastroentritis? resolved LGI bleed Thrombocytopenia Thrombocytopenia chronic Decubitus ulcer buttocks DVT prophylaxis SCD (no Lovenox due to thrombocytopenia) S/P UTI Enterrococus S/P Urinary retention S/P UTI Proteus S/P Pnuemonia
[2017-03-29] MEDS: CARBIDOPA PO SCH ×3 (05:29→21:40)
[2017-03-29] MEDS: LEVODOPA PO SCH ×3 (05:29→21:40)
[2017-03-29] MEDS: Bethanechol 50 MG TAB PO SCH ×3 (09:02→17:06)
--- NOTE | 2017-03-29 23:47 | CP.PCM.PN ---
Subjective - Date & Time of Evaluation Date of Evaluation: 03/29/17 Time of Evaluation: 22:22 - Subjective Subjective: Above noted Objective - Vital Signs/Intake and Output Vital Signs (last 24 hours): Temp Pulse Resp BP Pulse Ox 98 F 64 20 109/65 97 03/29/17 08:05 03/29/17 08:05 03/29/17 08:05 03/29/17 08:05 03/29/17 08:05 - Medications Medications: Current Medications Acetaminophen (Tylenol 325mg Tab) 650 mg PO Q6 PRN PRN Reason: Pain, Mild (1-3) Last Admin: 03/20/17 08:21 Dose: 650 mg Amantadine HCl (Amantadine 100 Mg Cap) 100 mg PO BID [facility] Last Admin: 03/29/17 17:06 Dose: 100 mg Benzocaine/Menthol (Cepacol Sore Throat) 1 morro PO TID PRN PRN Reason: Sore Throat Last Admin: 03/25/17 18:47 Dose: 1 morro Bethanechol Chloride (Urecholine) 50 mg PO TID [facility] Last Admin: 03/29/17 17:06 Dose: 50 mg Carbidopa/Levodopa (Rytary Er 48.75 Mg-195 Mg Cap) 1 cap PO TID@0500,1300,2100 [facility] Last Admin: 03/29/17 21:40 Dose: 1 cap Docusate Sodium (Colace) 100 mg PO BID [facility] Last Admin: 03/29/17 17:06 Dose: 100 mg Famotidine (Pepcid) 40 mg PO HS [facility] Last Admin: 03/29/17 21:40 Dose: 40 mg Fluocinonide (Lidex 0.05% Oint) 1 applic TOP BID [facility] Last Admin: 03/29/17 17:06 Dose: 1 applic Heparin Sodium (Porcine) (Heparin) 5,000 units SC Q8 [facility]U PRN Reason: Protocol Last Admin: 03/29/17 17:06 Dose: 5,000 units Nystatin (Nystop Topical Powder) 1 applic TOP TID [facility] Last Admin: 03/29/17 17:07 Dose: 1 applic - Labs Labs: 03/16/17 06:00 03/16/17 06:00 PT 11.7 Seconds (9.8-13.1) 03/03/17 10:25 INR 1.1 (0.9-1.2) 03/03/17 10:25 APTT 41.2 Seconds (25.6-37.1) H 03/03/17 10:25 - Respiratory Exam Respiratory Exam: NORMAL BREATHING PATTERN - Cardiovascular Exam Cardiovascular Exam: Tachycardia - GI/Abdominal Exam GI & Abdominal Exam: Normal Bowel Sounds Assessment and Plan - Assessment and Plan (Free Text) Assessment: S/P Bradycardia Hypotenson chronic A-fib Sepsis ? Autonomic dysfunction? Lactate elevated ID ABX completed R shoulder pain Dec ROM xrays subluxation Ultram PRN PT Recuurent c-diff Gastroentritis? resolved LGI bleed Thrombocytopenia Thrombocytopenia chronic Decubitus ulcer buttocks DVT prophylaxis SCD (no Lovenox due to thrombocytopenia) S/P UTI Enterrococus S/P Urinary retention S/P UTI Proteus S/P Pnuemonia
[2017-03-30] MEDS: CARBIDOPA PO SCH ×3 (04:10→21:22)
[2017-03-30] MEDS: LEVODOPA PO SCH ×3 (04:10→21:22)
[2017-03-30] MEDS: Bethanechol 50 MG TAB PO SCH ×3 (08:12→16:06)
--- NOTE | 2017-03-30 10:58 | CP.PCM.PN ---
Subjective - Date & Time of Evaluation Date of Evaluation: 03/30/17 Time of Evaluation: 22:22 - Subjective Subjective: Above noted Objective - Vital Signs/Intake and Output Vital Signs (last 24 hours): Temp Pulse Resp BP Pulse Ox 97.4 F L 71 19 119/77 99 03/30/17 07:52 03/30/17 07:52 03/30/17 07:52 03/30/17 07:52 03/30/17 07:52 - Medications Medications: Current Medications Acetaminophen (Tylenol 325mg Tab) 650 mg PO Q6 PRN PRN Reason: Pain, Mild (1-3) Last Admin: 03/20/17 08:21 Dose: 650 mg Amantadine HCl (Amantadine 100 Mg Cap) 100 mg PO BID [facility] Last Admin: 03/30/17 08:12 Dose: 100 mg Benzocaine/Menthol (Cepacol Sore Throat) 1 morro PO TID PRN PRN Reason: Sore Throat Last Admin: 03/25/17 18:47 Dose: 1 morro Bethanechol Chloride (Urecholine) 50 mg PO TID [facility] Last Admin: 03/30/17 08:12 Dose: 50 mg Carbidopa/Levodopa (Rytary Er 48.75 Mg-195 Mg Cap) 1 cap PO TID@0500,1300,2100 [facility] Last Admin: 03/30/17 04:10 Dose: 1 cap Docusate Sodium (Colace) 100 mg PO BID [facility] Last Admin: 03/30/17 08:12 Dose: 100 mg Famotidine (Pepcid) 40 mg PO HS [facility] Last Admin: 03/29/17 21:40 Dose: 40 mg Fluocinonide (Lidex 0.05% Oint) 1 applic TOP BID [facility] Last Admin: 03/30/17 08:12 Dose: 1 applic Nystatin (Nystop Topical Powder) 1 applic TOP TID [facility] Last Admin: 03/30/17 08:12 Dose: 1 applic - Labs Labs: 03/16/17 06:00 03/16/17 06:00 PT 11.7 Seconds (9.8-13.1) 03/03/17 10:25 INR 1.1 (0.9-1.2) 03/03/17 10:25 APTT 41.2 Seconds (25.6-37.1) H 03/03/17 10:25 - Respiratory Exam Respiratory Exam: NORMAL BREATHING PATTERN - Cardiovascular Exam Cardiovascular Exam: REGULAR RHYTHM - GI/Abdominal Exam GI & Abdominal Exam: Normal Bowel Sounds Assessment and Plan - Assessment and Plan (Free Text) Assessment: Disposition?? awaiting transfer to [place] Pt has medical decision making capacity but is financially vulnerable and benefits from legal guardianship Court and Social service involved Pt is [place] WW[place] S/P Bradycardia Hypotenson chronic A-fib Sepsis ? Autonomic dysfunction? Thrombocytopenia chronic DVT prophylaxis SCD (no Lovenox due to thrombocytopenia) R shoulder pain Dec ROM xrays subluxation Ultram PRN PT Recuurent c-diff Gastroentritis? resolved LGI bleed Thrombocytopenia Decubitus ulcer buttocks S/P UTI Enterrococus S/P Urinary retention S/P UTI Proteus S/P Pnuemonia
[2017-03-31] MEDS: LEVODOPA PO SCH ×3 (04:02→20:48)
[2017-03-31] MEDS: CARBIDOPA PO SCH ×3 (04:02→20:48)
[2017-03-31 06:46] LABS: HEMOGLOBIN 13.4 g/dL (12.0-18.0); MEAN CELL VOLUME 96.4 fl (80.0-94.0); MEAN CORPUSCULAR HEMOGLOBIN 31.7 pg (27.0-31.0); MEAN CORPUSCULAR HGB CONC 32.8 g/dL (33.0-37.0); RBC 4.22 Mil/uL (4.40-5.90); RED CELL DISTRIBUTION WIDTH 14.3 % (11.5-14.5); WHITE BLOOD COUNT 6.4 K/uL (4.8-10.8)
[2017-03-31 06:50] LABS: ALB/GLOB RATIO 1.3 (1.0-2.1); ALT/SGPT 15 U/L (21-72); AST/SGOT 20 U/L (17-59); BLOOD UREA NITROGEN 29 mg/dl (9-20); CALCIUM 9.4 mg/dL (8.4-10.2); GFR AFRICAN-AMERICAN > 60; GFR NON-AFRICAN AMERICAN > 60
[2017-03-31] MEDS: Bethanechol 50 MG TAB PO SCH ×3 (08:23→17:14)
--- NOTE | 2017-03-31 16:33 | CP.PCM.PN ---
Subjective - Date & Time of Evaluation Date of Evaluation: 03/31/17 Time of Evaluation: 22:22 - Subjective Subjective: c/o of rigidity Objective - Vital Signs/Intake and Output Vital Signs (last 24 hours): Temp Pulse Resp BP Pulse Ox 97.3 F L 73 20 104/66 100 03/31/17 10:00 03/31/17 10:00 03/31/17 10:00 03/31/17 10:00 03/31/17 08:07 - Medications Medications: Current Medications Acetaminophen (Tylenol 325mg Tab) 650 mg PO Q6 PRN PRN Reason: Pain, Mild (1-3) Last Admin: 03/20/17 08:21 Dose: 650 mg Amantadine HCl (Amantadine 100 Mg Cap) 100 mg PO BID [facility] Last Admin: 03/31/17 08:23 Dose: 100 mg Benzocaine/Menthol (Cepacol Sore Throat) 1 morro PO TID PRN PRN Reason: Sore Throat Last Admin: 03/25/17 18:47 Dose: 1 morro Bethanechol Chloride (Urecholine) 50 mg PO TID [facility] Last Admin: 03/31/17 12:18 Dose: 50 mg Carbidopa/Levodopa (Rytary Er 48.75 Mg-195 Mg Cap) 1 cap PO TID@0500,1300,2100 [facility] Last Admin: 03/31/17 12:18 Dose: 1 cap Docusate Sodium (Colace) 100 mg PO BID [facility] Last Admin: 03/31/17 08:24 Dose: 100 mg Famotidine (Pepcid) 40 mg PO HS [facility] Last Admin: 03/30/17 21:22 Dose: 40 mg Fluocinonide (Lidex 0.05% Oint) 1 applic TOP BID [facility] Last Admin: 03/31/17 08:23 Dose: 1 applic Heparin Sodium (Porcine) (Heparin) 5,000 units SC Q8 [facility] PRN Reason: Protocol Nystatin (Nystop Topical Powder) 1 applic TOP TID [facility] Last Admin: 03/31/17 12:18 Dose: 1 applic - Labs Labs: 03/31/17 06:20 03/31/17 06:20 PT 11.7 Seconds (9.8-13.1) 03/03/17 10:25 INR 1.1 (0.9-1.2) 03/03/17 10:25 APTT 41.2 Seconds (25.6-37.1) H 03/03/17 10:25 - Respiratory Exam Respiratory Exam: NORMAL BREATHING PATTERN - Cardiovascular Exam Cardiovascular Exam: REGULAR RHYTHM - GI/Abdominal Exam GI & Abdominal Exam: Normal Bowel Sounds Assessment and Plan - Assessment and Plan (Free Text) Assessment: Disposition?? awaiting transfer to [place] Pt has medical decision making capacity but is financially vulnerable and benefits from legal guardianship Court and Social service involved Pt is [place] MSA Parkinsons DX Shry Drager Low ext weakness?? Dx progression PT Rytary reconsult Neuro S/P Bradycardia Hypotenson chronic A-fib Sepsis ? Autonomic dysfunction? Thrombocytopenia chronic DVT prophylaxis SCD (no Lovenox due to thrombocytopenia) R shoulder pain Dec ROM xrays subluxation Ultram PRN PT Recuurent c-diff Gastroentritis? resolved LGI bleed Thrombocytopenia Decubitus ulcer buttocks S/P UTI Enterrococus S/P Urinary retention S/P UTI Proteus S/P Pnuemonia
[2017-04-01] MEDS: CARBIDOPA PO SCH ×3 (04:01→21:19)
[2017-04-01] MEDS: LEVODOPA PO SCH ×3 (04:01→21:19)
[2017-04-01] MEDS: Bethanechol 50 MG TAB PO SCH ×3 (08:44→17:37)
[2017-04-01] MEDS: Vitamin A/D oint 60G TP SCH (16:43)
--- NOTE | 2017-04-01 20:53 | CP.PCM.PN ---
Subjective - Date & Time of Evaluation Date of Evaluation: 04/01/17 Time of Evaluation: 22:22 - Subjective Subjective: No change Objective - Vital Signs/Intake and Output Vital Signs (last 24 hours): Temp Pulse Resp BP Pulse Ox 98.3 F 62 20 137/75 98 04/01/17 16:16 04/01/17 16:16 04/01/17 16:16 04/01/17 16:16 04/01/17 16:16 - Medications Medications: Current Medications Acetaminophen (Tylenol 325mg Tab) 650 mg PO Q6 PRN PRN Reason: Pain, Mild (1-3) Last Admin: 03/20/17 08:21 Dose: 650 mg Amantadine HCl (Amantadine 100 Mg Cap) 100 mg PO BID [facility] Last Admin: 04/01/17 16:34 Dose: 100 mg Benzocaine/Menthol (Cepacol Sore Throat) 1 morro PO TID PRN PRN Reason: Sore Throat Last Admin: 03/25/17 18:47 Dose: 1 morro Bethanechol Chloride (Urecholine) 50 mg PO TID [facility] Last Admin: 04/01/17 17:37 Dose: 50 mg Carbidopa/Levodopa (Rytary Er 48.75 Mg-195 Mg Cap) 1 cap PO TID@0500,1300,2100 [facility] Last Admin: 04/01/17 12:34 Dose: 1 cap Docusate Sodium (Colace) 100 mg PO BID [facility] Last Admin: 04/01/17 16:34 Dose: 100 mg Famotidine (Pepcid) 40 mg PO HS [facility] Last Admin: 03/31/17 21:04 Dose: 40 mg Fluocinonide (Lidex 0.05% Oint) 1 applic TOP BID [facility] Last Admin: 04/01/17 16:34 Dose: 1 applic Heparin Sodium (Porcine) (Heparin) 5,000 units SC Q8 [facility] PRN Reason: Protocol Last Admin: 04/01/17 16:34 Dose: 5,000 units Nystatin (Nystop Topical Powder) 1 applic TOP TID [facility] Last Admin: 04/01/17 16:35 Dose: 1 applic Vitamin A (Vitamin A&D) 1 applic TP BID [facility] Last Admin: 04/01/17 16:43 Dose: 1 applic - Labs Labs: 03/31/17 06:20 03/31/17 06:20 PT 11.7 Seconds (9.8-13.1) 03/03/17 10:25 INR 1.1 (0.9-1.2) 03/03/17 10:25 APTT 41.2 Seconds (25.6-37.1) H 03/03/17 10:25 - Respiratory Exam Respiratory Exam: NORMAL BREATHING PATTERN - Cardiovascular Exam Cardiovascular Exam: REGULAR RHYTHM - GI/Abdominal Exam GI & Abdominal Exam: Normal Bowel Sounds Assessment and Plan - Assessment and Plan (Free Text) Assessment: Disposition?? awaiting transfer to [place] Pt has medical decision making capacity but is financially vulnerable and benefits from legal guardianship Court and Social service involved Pt is [place] MSA Parkinsons DX Shry Drager Low ext weakness?? Dx progression PT Rytary reconsult Neuro S/P Bradycardia Hypotenson chronic A-fib Sepsis ? Autonomic dysfunction? Thrombocytopenia chronic DVT prophylaxis SCD (no Lovenox due to thrombocytopenia) R shoulder pain Dec ROM xrays subluxation Ultram PRN PT Recuurent c-diff Gastroentritis? resolved LGI bleed Thrombocytopenia Decubitus ulcer buttocks S/P UTI Enterrococus S/P Urinary retention S/P UTI Proteus S/P Pnuemonia
[2017-04-02] MEDS: LEVODOPA PO SCH ×4 (04:43→21:03)
[2017-04-02] MEDS: CARBIDOPA PO SCH ×4 (04:43→21:03)
[2017-04-02] MEDS: Bethanechol 50 MG TAB PO SCH ×3 (08:32→17:37)
[2017-04-02] MEDS: Vitamin A/D oint 60G TP SCH ×2 (08:32→17:38)
[2017-04-02 09:09] LABS: HEMOGLOBIN 13.4 g/dL (12.0-18.0); MEAN CORPUSCULAR HEMOGLOBIN 31.4 pg (27.0-31.0); MEAN CORPUSCULAR HGB CONC 32.7 g/dL (33.0-37.0); RBC 4.28 Mil/uL (4.40-5.90); RED CELL DISTRIBUTION WIDTH 14.1 % (11.5-14.5); WHITE BLOOD COUNT 5.2 K/uL (4.8-10.8)
--- NOTE | 2017-04-02 14:42 | CP.PCM.PN ---
Subjective - Date & Time of Evaluation Date of Evaluation: 04/02/17 Time of Evaluation: 22:22 - Subjective Subjective: Above noted Objective - Vital Signs/Intake and Output Vital Signs (last 24 hours): Temp Pulse Resp BP Pulse Ox 97.1 F L 90 20 109/63 95 04/02/17 10:00 04/02/17 10:00 04/02/17 10:00 04/02/17 10:00 04/02/17 10:00 - Medications Medications: Current Medications Acetaminophen (Tylenol 325mg Tab) 650 mg PO Q6 PRN PRN Reason: Pain, Mild (1-3) Last Admin: 03/20/17 08:21 Dose: 650 mg Amantadine HCl (Amantadine 100 Mg Cap) 100 mg PO BID [facility] Last Admin: 04/02/17 08:30 Dose: 100 mg Benzocaine/Menthol (Cepacol Sore Throat) 1 morro PO TID PRN PRN Reason: Sore Throat Last Admin: 03/25/17 18:47 Dose: 1 morro Bethanechol Chloride (Urecholine) 50 mg PO TID [facility] Last Admin: 04/02/17 12:37 Dose: 50 mg Carbidopa/Levodopa (Rytary Er 48.75 Mg-195 Mg Cap) 1 cap PO TID@0500,1300,2100 [facility] Last Admin: 04/02/17 12:37 Dose: 1 cap Docusate Sodium (Colace) 100 mg PO BID [facility] Last Admin: 04/02/17 08:31 Dose: 100 mg Famotidine (Pepcid) 40 mg PO HS [facility] Last Admin: 04/01/17 21:19 Dose: 40 mg Fluocinonide (Lidex 0.05% Oint) 1 applic TOP BID [facility] Last Admin: 04/02/17 08:31 Dose: 1 applic Heparin Sodium (Porcine) (Heparin) 5,000 units SC Q8 [facility] PRN Reason: Protocol Last Admin: 04/02/17 08:31 Dose: Not Given Nystatin (Nystop Topical Powder) 1 applic TOP TID [facility] Last Admin: 04/02/17 12:36 Dose: 1 applic Vitamin A (Vitamin A&D) 1 applic TP BID [facility] Last Admin: 04/02/17 08:32 Dose: 1 applic - Labs Labs: 04/02/17 04:00 03/31/17 06:20 PT 11.7 Seconds (9.8-13.1) 03/03/17 10:25 INR 1.1 (0.9-1.2) 03/03/17 10:25 APTT 41.2 Seconds (25.6-37.1) H 03/03/17 10:25 - Respiratory Exam Respiratory Exam: NORMAL BREATHING PATTERN - Cardiovascular Exam Cardiovascular Exam: REGULAR RHYTHM - GI/Abdominal Exam GI & Abdominal Exam: Normal Bowel Sounds Assessment and Plan - Assessment and Plan (Free Text) Assessment: Disposition?? awaiting transfer to [place] Pt has medical decision making capacity but is financially vulnerable and benefits from legal guardianship Court and Social service involved Pt is [place] WW[place] MSA Parkinsons DX Shry Drager Low ext weakness?? Dx progression PT Rytary reconsult Neuro S/P Bradycardia Hypotenson chronic A-fib Sepsis ? Autonomic dysfunction? Thrombocytopenia chronic DVT prophylaxis SCD (no Lovenox due to thrombocytopenia) R shoulder pain Dec ROM xrays subluxation Ultram PRN PT Recuurent c-diff Gastroentritis? resolved LGI bleed Thrombocytopenia Decubitus ulcer buttocks S/P UTI Enterrococus S/P Urinary retention S/P UTI Proteus S/P Pnuemonia
[2017-04-03] MEDS: LEVODOPA PO SCH ×3 (05:08→21:13)
[2017-04-03] MEDS: CARBIDOPA PO SCH ×3 (05:08→21:13)
[2017-04-03] MEDS: Bethanechol 50 MG TAB PO SCH ×3 (09:12→16:08)
[2017-04-03] MEDS: Vitamin A/D oint 60G TP SCH ×2 (09:14→16:09)
--- NOTE | 2017-04-03 15:59 | PN ---
DATE: 04/03/2017 SUBJECTIVE: The patient is seen and examined. The patient seen by Dr. Cornejo while he is away. The patient feels okay. No specific complaint of chest pain or shortness of breath. PHYSICAL EXAMINATION: GENERAL: The patient is in no acute distress. VITAL SIGNS: Stable. CARDIOPULMONARY: S1 and S2 normal, regular. LUNGS: Good bilateral air exchange. ABDOMEN: Soft and nontender. EXTREMITIES: No edema, no calf swelling, no tenderness. No acute ischemia. [employer]: Essentially unchanged. DIAGNOSTICS DATA: Available diagnostic data reviewed. ASSESSMENT AND PLAN: The patient's general medical condition is stable. Plan as ordered. Rashaun Mendoza MD
[2017-04-04] MEDS: LEVODOPA PO SCH ×3 (04:34→20:56)
[2017-04-04] MEDS: CARBIDOPA PO SCH ×3 (04:34→20:56)
[2017-04-04] MEDS: Bethanechol 50 MG TAB PO SCH ×3 (08:17→16:50)
[2017-04-04] MEDS: Vitamin A/D oint 60G TP SCH ×2 (08:18→16:50)
--- NOTE | 2017-04-04 10:04 | PN ---
DATE: 04/04/2017 SUBJECTIVE: The patient is seen and examined. Interim events noted. The patient remains in regular medical room. Feels okay. Denies any specific complaints. No chest pain. No shortness of breath. PHYSICAL EXAMINATION GENERAL: The patient is in no acute distress. VITAL SIGNS: Stable. HEART: S1 and S2 normal, regular. LUNGS: Good bilateral air exchange. ABDOMEN: Soft and nontender. EXTREMITIES: No edema. No calf swelling. No tenderness. No acute ischemia. CENTRAL NERVOUS SYSTEM: Essentially unchanged. DIAGNOSTIC DATA: Available diagnostic data reviewed. ASSESSMENT AND PLAN: Overall, the patient's general medical condition is stable . Rashaun Mendoza MD
[2017-04-05] MEDS: CARBIDOPA PO SCH ×3 (05:07→20:11)
[2017-04-05] MEDS: LEVODOPA PO SCH ×3 (05:07→20:11)
[2017-04-05] MEDS: Vitamin A/D oint 60G TP SCH ×2 (09:31→17:24)
[2017-04-05] MEDS: Bethanechol 50 MG TAB PO SCH ×3 (09:32→17:24)
--- NOTE | 2017-04-05 11:03 | PN ---
DATE: 04/05/2017 SUBJECTIVE: The patient is seen and examined. Interim events noted. The patient remains in regular medical room. Denies any specific complaints. No specific issue reported by nursing staff. PHYSICAL EXAMINATION: GENERAL: The patient is in no acute distress. VITAL SIGNS: Stable. Physical examination is essentially unchanged. DIAGNOSTIC DATA: Available diagnostic data reviewed. IMPRESSION: Overall, the patient's general medication condition is stable. PLAN: As ordered. Rashaun Mendoza MD
[2017-04-05 14:30] LABS: BASO # 0.1 K/uL (0.0-0.2); BASO % 1.2 % (0.0-2.0); EOS # 0.5 K/uL (0.0-0.7); EOS % 9.5 % (0.0-4.0); HEMOGLOBIN 12.6 g/dL (12.0-18.0); LYMPH # 1.1 K/uL (1.0-4.3); LYMPH % 23.1 % (20.0-40.0); MEAN CELL VOLUME 96.3 fl (80.0-94.0); MEAN CORPUSCULAR HEMOGLOBIN 31.3 pg (27.0-31.0); MEAN CORPUSCULAR HGB CONC 32.5 g/dL (33.0-37.0); MEAN PLATELET VOLUME 10.2 fl (7.2-11.7); MONO # 0.5 K/uL (0.0-0.8); MONO % 9.6 % (0.0-10.0); NEUT # 2.8 K/uL (1.8-7.0); NEUT % 56.6 % (50.0-75.0); RBC 4.04 Mil/uL (4.40-5.90); RED CELL DISTRIBUTION WIDTH 14.2 % (11.5-14.5); WHITE BLOOD COUNT 4.9 K/uL (4.8-10.8)
[2017-04-05] MEDS: Benzocaine/Menthol (Cepacol) Lozenge PO PRN (20:15)
[2017-04-06] MEDS: LEVODOPA PO SCH ×3 (05:58→21:04)
[2017-04-06] MEDS: CARBIDOPA PO SCH ×3 (05:58→21:04)
[2017-04-06] MEDS: Vitamin A/D oint 60G TP SCH ×2 (08:20→17:09)
[2017-04-06] MEDS: Bethanechol 50 MG TAB PO SCH ×3 (08:20→17:09)
--- NOTE | 2017-04-06 14:02 | CP.PCM.PN ---
Subjective - Date & Time of Evaluation Date of Evaluation: 03/20/17 Time of Evaluation: 22:22 - Subjective Subjective: Above noted Objective - Vital Signs/Intake and Output Vital Signs (last 24 hours): Temp Pulse Resp BP Pulse Ox 97.1 F L 74 20 108/63 100 04/06/17 10:00 04/06/17 10:00 04/06/17 10:00 04/06/17 10:00 04/06/17 10:00 - Medications Medications: Current Medications Acetaminophen (Tylenol 325mg Tab) 650 mg PO Q6 PRN PRN Reason: Pain, Mild (1-3) Last Admin: 03/20/17 08:21 Dose: 650 mg Amantadine HCl (Amantadine 100 Mg Cap) 100 mg PO BID [facility] Last Admin: 04/06/17 08:19 Dose: 100 mg Benzocaine/Menthol (Cepacol Sore Throat) 1 morro PO TID PRN PRN Reason: Sore Throat Last Admin: 04/05/17 20:15 Dose: 1 morro Bethanechol Chloride (Urecholine) 50 mg PO TID [facility] Last Admin: 04/06/17 12:57 Dose: 50 mg Carbidopa/Levodopa (Rytary Er 48.75 Mg-195 Mg Cap) 1 cap PO TID@0500,1300,2100 [facility] Last Admin: 04/06/17 12:56 Dose: 1 cap Docusate Sodium (Colace) 100 mg PO BID [facility] Last Admin: 04/06/17 08:20 Dose: 100 mg Famotidine (Pepcid) 40 mg PO HS [facility] Last Admin: 04/05/17 21:57 Dose: 40 mg Fluocinonide (Lidex 0.05% Oint) 1 applic TOP BID [facility] Last Admin: 04/06/17 08:21 Dose: 1 applic Heparin Sodium (Porcine) (Heparin) 5,000 units SC Q8 [facility] PRN Reason: Protocol Last Admin: 04/06/17 08:20 Dose: 5,000 units Nystatin (Nystop Topical Powder) 1 applic TOP TID [facility] Last Admin: 04/06/17 12:56 Dose: 1 applic Vitamin A (Vitamin A&D) 1 applic TP BID [facility] Last Admin: 04/06/17 08:20 Dose: 1 applic - Labs Labs: 04/05/17 13:30 03/31/17 06:20 PT 11.7 Seconds (9.8-13.1) 03/03/17 10:25 INR 1.1 (0.9-1.2) 03/03/17 10:25 APTT 41.2 Seconds (25.6-37.1) H 03/03/17 10:25 - Respiratory Exam Respiratory Exam: NORMAL BREATHING PATTERN - Cardiovascular Exam Cardiovascular Exam: REGULAR RHYTHM - GI/Abdominal Exam GI & Abdominal Exam: Normal Bowel Sounds Assessment and Plan - Assessment and Plan (Free Text) Assessment: Disposition?? awaiting transfer to [place] Pt has medical decision making capacity but is financially vulnerable and benefits from legal guardianship Court and Social service involved Pt is [place] WW[place] MSA Parkinsons DX Shry Drager Low ext weakness?? Dx progression PT Rytary reconsult Neuro S/P Bradycardia Hypotenson chronic A-fib Sepsis ? Autonomic dysfunction? Thrombocytopenia chronic DVT prophylaxis SCD (no Lovenox due to thrombocytopenia) R shoulder pain Dec ROM xrays subluxation Ultram PRN PT Recuurent c-diff Gastroentritis? resolved LGI bleed Thrombocytopenia Decubitus ulcer buttocks S/P UTI Enterrococus S/P Urinary retention S/P UTI Proteus S/P Pnuemonia
[2017-04-07] MEDS: LEVODOPA PO SCH ×3 (05:05→21:44)
[2017-04-07] MEDS: CARBIDOPA PO SCH ×3 (05:05→21:44)
[2017-04-07] MEDS: Bethanechol 50 MG TAB PO SCH ×3 (09:02→16:10)
[2017-04-07] MEDS: Vitamin A/D oint 60G TP SCH ×2 (09:04→16:10)
--- NOTE | 2017-04-07 20:33 | CP.PCM.PN ---
Subjective - Date & Time of Evaluation Date of Evaluation: 04/07/17 Time of Evaluation: 22:22 - Subjective Subjective: Above noted Objective - Vital Signs/Intake and Output Vital Signs (last 24 hours): Temp Pulse Resp BP Pulse Ox 97.5 F L 67 18 130/76 100 04/07/17 16:09 04/07/17 16:09 04/07/17 16:09 04/07/17 16:09 04/07/17 16:09 - Medications Medications: Current Medications Acetaminophen (Tylenol 325mg Tab) 650 mg PO Q6 PRN PRN Reason: Pain, Mild (1-3) Last Admin: 03/20/17 08:21 Dose: 650 mg Amantadine HCl (Amantadine 100 Mg Cap) 100 mg PO BID [facility] Last Admin: 04/07/17 16:09 Dose: 100 mg Benzocaine/Menthol (Cepacol Sore Throat) 1 morro PO TID PRN PRN Reason: Sore Throat Last Admin: 04/05/17 20:15 Dose: 1 morro Bethanechol Chloride (Urecholine) 50 mg PO TID [facility] Last Admin: 04/07/17 16:10 Dose: 50 mg Carbidopa/Levodopa (Rytary Er 48.75 Mg-195 Mg Cap) 1 cap PO TID@0500,1300,2100 [facility] Last Admin: 04/07/17 12:22 Dose: 1 cap Docusate Sodium (Colace) 100 mg PO BID [facility] Last Admin: 04/07/17 16:10 Dose: 100 mg Famotidine (Pepcid) 40 mg PO HS [facility] Last Admin: 04/06/17 21:03 Dose: 40 mg Fluocinonide (Lidex 0.05% Oint) 1 applic TOP BID [facility] Last Admin: 04/07/17 16:11 Dose: 1 applic Heparin Sodium (Porcine) (Heparin) 5,000 units SC Q8 [facility] PRN Reason: Protocol Last Admin: 04/07/17 16:12 Dose: 5,000 units Nystatin (Nystop Topical Powder) 1 applic TOP TID [facility] Last Admin: 04/07/17 16:10 Dose: 1 applic Vitamin A (Vitamin A&D) 1 applic TP BID [facility] Last Admin: 04/07/17 16:10 Dose: 1 applic - Labs Labs: 04/05/17 13:30 03/31/17 06:20 PT 11.7 Seconds (9.8-13.1) 03/03/17 10:25 INR 1.1 (0.9-1.2) 03/03/17 10:25 APTT 41.2 Seconds (25.6-37.1) H 03/03/17 10:25 - Respiratory Exam Respiratory Exam: NORMAL BREATHING PATTERN - Cardiovascular Exam Cardiovascular Exam: REGULAR RHYTHM - GI/Abdominal Exam GI & Abdominal Exam: Normal Bowel Sounds Assessment and Plan - Assessment and Plan (Free Text) Assessment: Disposition?? awaiting transfer to [place] Pt has medical decision making capacity but is financially vulnerable and benefits from legal guardianship Court and Social service involved Pt is [place] MSA Parkinsons DX Shry Drager Low ext weakness?? Dx progression PT Rytary reconsult Neuro S/P Bradycardia Hypotenson chronic A-fib Sepsis ? Autonomic dysfunction? Thrombocytopenia chronic DVT prophylaxis SCD (no Lovenox due to thrombocytopenia) R shoulder pain Dec ROM xrays subluxation Ultram PRN PT Recuurent c-diff Gastroentritis? resolved LGI bleed Thrombocytopenia Decubitus ulcer buttocks S/P UTI Enterrococus S/P Urinary retention S/P UTI Proteus S/P Pnuemonia
[2017-04-08] MEDS: LEVODOPA PO SCH ×2 (05:40→12:42)
[2017-04-08] MEDS: CARBIDOPA PO SCH ×2 (05:40→12:42)
[2017-04-08] MEDS: Bethanechol 50 MG TAB PO SCH ×3 (08:49→17:43)
[2017-04-08] MEDS: Vitamin A/D oint 60G TP SCH ×2 (08:50→17:42)
--- NOTE | 2017-04-08 14:15 | CP.PCM.PN ---
Subjective - Date & Time of Evaluation Date of Evaluation: 04/08/17 Time of Evaluation: 14:08 - Subjective Subjective: Mr. Gutierrez was seen and examined today as he sat in his chair. He continues to have progressive disability and cognitive impairment. He has generalized weakness, but is able to follow commands and moves his extremities. His right arm has some contractures, but he is diffusely rigid with resting tremor. He complained of back pain and worsening lower extremity weakness. Objective - Vital Signs/Intake and Output Vital Signs (last 24 hours): Temp Pulse Resp BP Pulse Ox 97.2 F L 56 L 20 94/58 L 99 04/08/17 07:35 04/08/17 07:35 04/08/17 07:35 04/08/17 07:35 04/08/17 07:35 - Medications Medications: Current Medications Acetaminophen (Tylenol 325mg Tab) 650 mg PO Q6 PRN PRN Reason: Pain, Mild (1-3) Last Admin: 03/20/17 08:21 Dose: 650 mg Amantadine HCl (Amantadine 100 Mg Cap) 100 mg PO BID [facility] Last Admin: 04/08/17 08:49 Dose: 100 mg Benzocaine/Menthol (Cepacol Sore Throat) 1 morro PO TID PRN PRN Reason: Sore Throat Last Admin: 04/05/17 20:15 Dose: 1 morro Bethanechol Chloride (Urecholine) 50 mg PO TID [facility] Last Admin: 04/08/17 12:42 Dose: 50 mg Carbidopa/Levodopa (Rytary Er 48.75 Mg-195 Mg Cap) 1 cap PO TID@0500,1300,2100 [facility] Last Admin: 04/08/17 12:42 Dose: 1 cap Docusate Sodium (Colace) 100 mg PO BID [facility] Last Admin: 04/08/17 08:49 Dose: 100 mg Famotidine (Pepcid) 40 mg PO HS [facility] Last Admin: 04/07/17 21:44 Dose: 40 mg Fluocinonide (Lidex 0.05% Oint) 1 applic TOP BID [facility] Last Admin: 04/08/17 08:50 Dose: 1 applic Heparin Sodium (Porcine) (Heparin) 5,000 units SC Q12 [facility] PRN Reason: Protocol Last Admin: 04/08/17 09:20 Dose: 5,000 units Nystatin (Nystop Topical Powder) 1 applic TOP TID [facility] Last Admin: 04/08/17 12:42 Dose: 1 applic Vitamin A (Vitamin A&D) 1 applic TP BID [facility] Last Admin: 04/08/17 08:50 Dose: 1 applic - Labs Labs: 04/05/17 13:30 03/31/17 06:20 PT 11.7 Seconds (9.8-13.1) 03/03/17 10:25 INR 1.1 (0.9-1.2) 03/03/17 10:25 APTT 41.2 Seconds (25.6-37.1) H 03/03/17 10:25 - Neurological Exam Neurological Exam: Altered, CN II-XII Intact, Reflexes Normal Neuro motor strength exam: Left Upper Extremity: 4, Right Upper Extremity: 3, Left Lower Extremity: 3, Right Lower Extremity: 3 Additional comments: Has rigidity, worse on the right; resting tremor, bradykinesia, flat affect/ facies, cogwheeling. Unable to test gait. Assessment and Plan (1) Parkinson disease Assessment & Plan: The patient is currently on amantadine and Sinemet. We may increase his Sinement since his disease does seem to be progressing. Will go up to Rytary 61.25/245mg, and continue amantadine at current dose. Continue PT/OT, DVT Px and monitor neuro exam. Status: Chronic
[2017-04-08] MEDS: Carbidopa/Levodopa 50/200 CR PO SCH (17:42)
--- NOTE | 2017-04-08 20:10 | CP.PCM.PN ---
Subjective - Date & Time of Evaluation Date of Evaluation: 04/08/17 Time of Evaluation: 22:22 - Subjective Subjective: Neurology note appreciated Objective - Vital Signs/Intake and Output Vital Signs (last 24 hours): Temp Pulse Resp BP Pulse Ox 98 F 60 20 117/64 98 04/08/17 16:34 04/08/17 16:34 04/08/17 16:34 04/08/17 16:34 04/08/17 16:34 - Medications Medications: Current Medications Acetaminophen (Tylenol 325mg Tab) 650 mg PO Q6 PRN PRN Reason: Pain, Mild (1-3) Last Admin: 03/20/17 08:21 Dose: 650 mg Amantadine HCl (Amantadine 100 Mg Cap) 100 mg PO BID [facility] Last Admin: 04/08/17 17:41 Dose: 100 mg Benzocaine/Menthol (Cepacol Sore Throat) 1 morro PO TID PRN PRN Reason: Sore Throat Last Admin: 04/05/17 20:15 Dose: 1 morro Bethanechol Chloride (Urecholine) 50 mg PO TID [facility] Last Admin: 04/08/17 17:43 Dose: 50 mg Carbidopa/Levodopa (Sinemet Cr) 1 tab PO TID [facility] Last Admin: 04/08/17 17:42 Dose: 1 tab Docusate Sodium (Colace) 100 mg PO BID [facility] Last Admin: 04/08/17 17:42 Dose: 100 mg Famotidine (Pepcid) 40 mg PO HS [facility] Last Admin: 04/07/17 21:44 Dose: 40 mg Fluocinonide (Lidex 0.05% Oint) 1 applic TOP BID [facility] Last Admin: 04/08/17 17:42 Dose: 1 applic Heparin Sodium (Porcine) (Heparin) 5,000 units SC Q12 [facility] PRN Reason: Protocol Last Admin: 04/08/17 09:20 Dose: 5,000 units Nystatin (Nystop Topical Powder) 1 applic TOP TID [facility] Last Admin: 04/08/17 17:42 Dose: 1 applic Vitamin A (Vitamin A&D) 1 applic TP BID [facility] Last Admin: 04/08/17 17:42 Dose: 1 applic - Labs Labs: 04/05/17 13:30 03/31/17 06:20 PT 11.7 Seconds (9.8-13.1) 03/03/17 10:25 INR 1.1 (0.9-1.2) 03/03/17 10:25 APTT 41.2 Seconds (25.6-37.1) H 03/03/17 10:25 - Respiratory Exam Respiratory Exam: NORMAL BREATHING PATTERN - Cardiovascular Exam Cardiovascular Exam: REGULAR RHYTHM - GI/Abdominal Exam GI & Abdominal Exam: Normal Bowel Sounds Assessment and Plan - Assessment and Plan (Free Text) Assessment: MSA Parkinsons DX Shry Drager Low ext weakness?? Dx progression Neuro consult appreciated Increased frequency urinating UA CS PVR Disposition?? awaiting transfer to [place] Pt has medical decision making capacity but is financially vulnerable and benefits from legal guardianship Court and Social service involved Pt is [place] WW[place] S/P Bradycardia Hypotenson chronic A-fib Sepsis ? Autonomic dysfunction? Thrombocytopenia chronic DVT prophylaxis SCD (no Lovenox due to thrombocytopenia) R shoulder pain Dec ROM xrays subluxation Ultram PRN PT Recuurent c-diff Gastroentritis? resolved LGI bleed Thrombocytopenia Decubitus ulcer buttocks S/P UTI Enterrococus S/P Urinary retention S/P UTI Proteus S/P Pnuemonia
[2017-04-09 00:35] LABS: SQUAMOUS EPITHIAL < 1 /hpf (0-5); URINE BILIRUBIN NEGATIVE (NEGATIVE); URINE BLOOD NEGATIVE (NEGATIVE); URINE CLARITY SLIGHTY-CLOUDY (Clear); URINE COLOR YELLOW (YELLOW); URINE GLUCOSE (UA) NEG (Normal); URINE LEUKOCYTE ESTERASE NEG Leu/uL (Negative); URINE NITRATE NEGATIVE (NEGATIVE); URINE PROTEIN NEGATIVE (NEGATIVE)
[2017-04-09] MEDS: Vitamin A/D oint 60G TP SCH ×2 (08:43→17:24)
[2017-04-09] MEDS: Carbidopa/Levodopa 50/200 CR PO SCH ×3 (08:43→17:23)
[2017-04-09] MEDS: Bethanechol 50 MG TAB PO SCH ×3 (08:44→17:24)
--- NOTE | 2017-04-09 12:05 | CP.PCM.PN ---
Subjective - Date & Time of Evaluation Date of Evaluation: 04/09/17 Time of Evaluation: 12:03 - Subjective Subjective: Mr. Gutierrez was seen and examined at the bedside. He claims of being weak and continues to have progressive disability and cognitive impairment. He has generalized weakness, but is able to follow commands and moves his extremities. His right arm has some contractures, but he is diffusely rigid with resting tremor. He complained of back pain and worsening lower extremity weakness. There was no untoward events overnight. He is not in any kind of distress. Objective - Vital Signs/Intake and Output Vital Signs (last 24 hours): Temp Pulse Resp BP Pulse Ox 97.1 F L 59 L 20 99/58 L 100 04/09/17 08:42 04/09/17 08:42 04/09/17 08:42 04/09/17 08:42 04/09/17 08:42 - Medications Medications: Current Medications Acetaminophen (Tylenol 325mg Tab) 650 mg PO Q6 PRN PRN Reason: Pain, Mild (1-3) Last Admin: 03/20/17 08:21 Dose: 650 mg Amantadine HCl (Amantadine 100 Mg Cap) 100 mg PO BID [facility] Last Admin: 04/09/17 08:44 Dose: 100 mg Benzocaine/Menthol (Cepacol Sore Throat) 1 morro PO TID PRN PRN Reason: Sore Throat Last Admin: 04/05/17 20:15 Dose: 1 morro Bethanechol Chloride (Urecholine) 50 mg PO TID [facility] Last Admin: 04/09/17 08:44 Dose: 50 mg Carbidopa/Levodopa (Sinemet Cr) 1 tab PO TID [facility] Last Admin: 04/09/17 08:43 Dose: 1 tab Docusate Sodium (Colace) 100 mg PO BID [facility] Last Admin: 04/09/17 08:44 Dose: 100 mg Famotidine (Pepcid) 40 mg PO HS [facility] Last Admin: 04/08/17 22:45 Dose: 40 mg Fluocinonide (Lidex 0.05% Oint) 1 applic TOP BID [facility] Last Admin: 04/09/17 08:43 Dose: 1 applic Heparin Sodium (Porcine) (Heparin) 5,000 units SC Q12 TU PRN Reason: Protocol Last Admin: 04/09/17 08:44 Dose: 5,000 units Nystatin (Nystop Topical Powder) 1 applic TOP TID [facility] Last Admin: 04/09/17 08:43 Dose: 1 applic Vitamin A (Vitamin A&D) 1 applic TP BID [facility] Last Admin: 04/09/17 08:43 Dose: 1 applic - Labs Labs: 04/05/17 13:30 03/31/17 06:20 PT 11.7 Seconds (9.8-13.1) 03/03/17 10:25 INR 1.1 (0.9-1.2) 03/03/17 10:25 APTT 41.2 Seconds (25.6-37.1) H 03/03/17 10:25 - Constitutional Appears: Chronically Ill - Neurological Exam Neurological Exam: Alert, Awake, Oriented x3 Neuro motor strength exam: Left Upper Extremity: 5, Right Upper Extremity: 4 ( with contracture), Left Lower Extremity: 3, Right Lower Extremity: 3 Additional comments: Neurological unchanged from previous examination. Assessment and Plan (1) Parkinson disease Assessment & Plan: Case discussed with Dr. Gordon, continue current medical, physical, and occupational therapies. Status: Chronic
--- NOTE | 2017-04-09 21:40 | CP.PCM.PN ---
Subjective - Date & Time of Evaluation Date of Evaluation: 04/09/17 Time of Evaluation: 22:22 - Subjective Subjective: Above notd UA wnl Objective - Vital Signs/Intake and Output Vital Signs (last 24 hours): Temp Pulse Resp BP Pulse Ox 97.7 F 70 20 103/59 L 100 04/09/17 16:59 04/09/17 16:59 04/09/17 16:59 04/09/17 16:59 04/09/17 16:59 - Medications Medications: Current Medications Acetaminophen (Tylenol 325mg Tab) 650 mg PO Q6 PRN PRN Reason: Pain, Mild (1-3) Last Admin: 03/20/17 08:21 Dose: 650 mg Amantadine HCl (Amantadine 100 Mg Cap) 100 mg PO BID [facility] Last Admin: 04/09/17 17:23 Dose: 100 mg Benzocaine/Menthol (Cepacol Sore Throat) 1 morro PO TID PRN PRN Reason: Sore Throat Last Admin: 04/05/17 20:15 Dose: 1 morro Bethanechol Chloride (Urecholine) 50 mg PO TID [facility] Last Admin: 04/09/17 17:24 Dose: 50 mg Carbidopa/Levodopa (Sinemet Cr) 1 tab PO TID [facility] Last Admin: 04/09/17 17:23 Dose: 1 tab Docusate Sodium (Colace) 100 mg PO BID [facility] Last Admin: 04/09/17 17:23 Dose: 100 mg Famotidine (Pepcid) 40 mg PO HS [facility] Last Admin: 04/09/17 21:27 Dose: 40 mg Fluocinonide (Lidex 0.05% Oint) 1 applic TOP BID [facility] Last Admin: 04/09/17 17:23 Dose: 1 applic Heparin Sodium (Porcine) (Heparin) 5,000 units SC Q12 [facility] PRN Reason: Protocol Last Admin: 04/09/17 21:26 Dose: 5,000 units Nystatin (Nystop Topical Powder) 1 applic TOP TID [facility] Last Admin: 04/09/17 17:23 Dose: 1 applic Vitamin A (Vitamin A&D) 1 applic TP BID [facility] Last Admin: 04/09/17 17:24 Dose: 1 applic - Labs Labs: 04/05/17 13:30 03/31/17 06:20 PT 11.7 Seconds (9.8-13.1) 03/03/17 10:25 INR 1.1 (0.9-1.2) 03/03/17 10:25 APTT 41.2 Seconds (25.6-37.1) H 03/03/17 10:25 - Respiratory Exam Respiratory Exam: NORMAL BREATHING PATTERN - Cardiovascular Exam Cardiovascular Exam: REGULAR RHYTHM - GI/Abdominal Exam GI & Abdominal Exam: Normal Bowel Sounds Assessment and Plan - Assessment and Plan (Free Text) Assessment: MSA Parkinsons DX Shry Drager Low ext weakness?? Dx progression Neuro consult appreciated Increased frequency urinating UA CS PVR Disposition?? awaiting transfer to [place] Pt has medical decision making capacity but is financially vulnerable and benefits from legal guardianship Court and Social service involved Pt is [place] S/P Bradycardia Hypotenson chronic A-fib Sepsis ? Autonomic dysfunction? Thrombocytopenia chronic DVT prophylaxis SCD (no Lovenox due to thrombocytopenia) R shoulder pain Dec ROM xrays subluxation Ultram PRN PT Recuurent c-diff Gastroentritis? resolved LGI bleed Thrombocytopenia Decubitus ulcer buttocks S/P UTI Enterrococus S/P Urinary retention S/P UTI Proteus
[2017-04-10] MEDS: Bethanechol 50 MG TAB PO SCH ×3 (09:07→16:22)
[2017-04-10] MEDS: Carbidopa/Levodopa 50/200 CR PO SCH ×3 (09:07→16:22)
[2017-04-10] MEDS: Vitamin A/D oint 60G TP SCH ×2 (09:08→16:23)
--- NOTE | 2017-04-10 11:06 | CP.PCM.PN ---
Subjective - Date & Time of Evaluation Date of Evaluation: 04/10/17 Time of Evaluation: 11:03 - Subjective Subjective: Mr. Gutierrez was seen and examined at the bedside. He denies any headache, dizziness,but claims being weak. There was no untoward events overnight. He is not in any acute distress. Objective - Vital Signs/Intake and Output Vital Signs (last 24 hours): Temp Pulse Resp BP Pulse Ox 97.1 F L 68 20 122/68 96 04/10/17 08:01 04/10/17 08:01 04/10/17 08:01 04/10/17 08:01 04/10/17 08:01 - Medications Medications: Current Medications Acetaminophen (Tylenol 325mg Tab) 650 mg PO Q6 PRN PRN Reason: Pain, Mild (1-3) Last Admin: 03/20/17 08:21 Dose: 650 mg Amantadine HCl (Amantadine 100 Mg Cap) 100 mg PO BID [facility] Last Admin: 04/10/17 09:05 Dose: 100 mg Benzocaine/Menthol (Cepacol Sore Throat) 1 morro PO TID PRN PRN Reason: Sore Throat Last Admin: 04/05/17 20:15 Dose: 1 morro Bethanechol Chloride (Urecholine) 50 mg PO TID [facility] Last Admin: 04/10/17 09:07 Dose: 50 mg Carbidopa/Levodopa (Sinemet Cr) 1 tab PO TID [facility] Last Admin: 04/10/17 09:07 Dose: 1 tab Docusate Sodium (Colace) 100 mg PO BID [facility] Last Admin: 04/10/17 09:05 Dose: 100 mg Famotidine (Pepcid) 40 mg PO HS [facility] Last Admin: 04/09/17 21:27 Dose: 40 mg Fluocinonide (Lidex 0.05% Oint) 1 applic TOP BID [facility] Last Admin: 04/10/17 09:07 Dose: 1 applic Heparin Sodium (Porcine) (Heparin) 5,000 units SC Q12 TU PRN Reason: Protocol Last Admin: 04/10/17 09:05 Dose: 5,000 units Nystatin (Nystop Topical Powder) 1 applic TOP TID [facility] Last Admin: 04/10/17 09:08 Dose: 1 applic Vitamin A (Vitamin A&D) 1 applic TP BID [facility] Last Admin: 04/10/17 09:08 Dose: 1 applic - Labs Labs: 04/05/17 13:30 03/31/17 06:20 PT 11.7 Seconds (9.8-13.1) 03/03/17 10:25 INR 1.1 (0.9-1.2) 03/03/17 10:25 APTT 41.2 Seconds (25.6-37.1) H 03/03/17 10:25 - Constitutional Appears: Chronically Ill - Head Exam Head Exam: ATRAUMATIC, NORMAL INSPECTION, NORMOCEPHALIC - Neurological Exam Neurological Exam: Alert, Awake Neuro motor strength exam: Left Upper Extremity: 5, Right Upper Extremity: 4, Left Lower Extremity: 3, Right Lower Extremity: 3 Additional comments: Neurological examination unchanged from previous examination. Assessment and Plan (1) Parkinson disease Assessment & Plan: Case discussed with Dr. Gordon, continue medical, physical therapies. Status: Chronic
--- NOTE | 2017-04-10 20:37 | CP.PCM.PN ---
Subjective - Date & Time of Evaluation Date of Evaluation: 04/10/17 Time of Evaluation: 22:22 - Subjective Subjective: PVR wnl Objective - Vital Signs/Intake and Output Vital Signs (last 24 hours): Temp Pulse Resp BP Pulse Ox 97.5 F L 72 20 138/77 97 04/10/17 16:20 04/10/17 16:20 04/10/17 16:20 04/10/17 16:20 04/10/17 16:20 - Medications Medications: Current Medications Acetaminophen (Tylenol 325mg Tab) 650 mg PO Q6 PRN PRN Reason: Pain, Mild (1-3) Last Admin: 03/20/17 08:21 Dose: 650 mg Amantadine HCl (Amantadine 100 Mg Cap) 100 mg PO BID [facility] Last Admin: 04/10/17 16:21 Dose: 100 mg Benzocaine/Menthol (Cepacol Sore Throat) 1 morro PO TID PRN PRN Reason: Sore Throat Last Admin: 04/05/17 20:15 Dose: 1 morro Bethanechol Chloride (Urecholine) 50 mg PO TID [facility] Last Admin: 04/10/17 16:22 Dose: 50 mg Carbidopa/Levodopa (Sinemet Cr) 1 tab PO TID [facility] Last Admin: 04/10/17 16:22 Dose: 1 tab Docusate Sodium (Colace) 100 mg PO BID [facility] Last Admin: 04/10/17 16:21 Dose: 100 mg Famotidine (Pepcid) 40 mg PO HS [facility] Last Admin: 04/09/17 21:27 Dose: 40 mg Fluocinonide (Lidex 0.05% Oint) 1 applic TOP BID [facility] Last Admin: 04/10/17 16:21 Dose: 1 applic Heparin Sodium (Porcine) (Heparin) 5,000 units SC Q12 TU PRN Reason: Protocol Last Admin: 04/10/17 09:05 Dose: 5,000 units Nystatin (Nystop Topical Powder) 1 applic TOP TID [facility] Last Admin: 04/10/17 16:21 Dose: 1 applic Vitamin A (Vitamin A&D) 1 applic TP BID [facility] Last Admin: 04/10/17 16:23 Dose: 1 applic - Labs Labs: 04/05/17 13:30 03/31/17 06:20 PT 11.7 Seconds (9.8-13.1) 03/03/17 10:25 INR 1.1 (0.9-1.2) 03/03/17 10:25 APTT 41.2 Seconds (25.6-37.1) H 03/03/17 10:25 - Respiratory Exam Respiratory Exam: NORMAL BREATHING PATTERN - Cardiovascular Exam Cardiovascular Exam: Tachycardia - GI/Abdominal Exam GI & Abdominal Exam: Normal Bowel Sounds Assessment and Plan - Assessment and Plan (Free Text) Assessment: MSA Parkinsons DX Shry Drager Low ext weakness?? Dx progression Neuro consult appreciated Increased frequency urinating UA CS PVR all wnl Disposition?? awaiting transfer to [place] Pt has medical decision making capacity but is financially vulnerable and benefits from legal guardianship Court and Social service involved Pt is [place] S/P Bradycardia Hypotenson chronic A-fib Sepsis ? Autonomic dysfunction? Thrombocytopenia chronic DVT prophylaxis SCD (no Lovenox due to thrombocytopenia) R shoulder pain Dec ROM xrays subluxation Ultram PRN PT Recuurent c-diff Gastroentritis? resolved LGI bleed Thrombocytopenia Decubitus ulcer buttocks S/P UTI Enterrococus S/P Urinary retention S/P UTI Proteus
[2017-04-11] MEDS: Bethanechol 50 MG TAB PO SCH ×3 (09:16→16:24)
[2017-04-11] MEDS: Carbidopa/Levodopa 50/200 CR PO SCH ×3 (09:17→16:24)
[2017-04-11] MEDS: Vitamin A/D oint 60G TP SCH ×2 (09:17→17:05)
--- NOTE | 2017-04-11 14:52 | CP.PCM.PN ---
Subjective - Date & Time of Evaluation Date of Evaluation: 04/11/17 Time of Evaluation: 22:22 - Subjective Subjective: Above noted Objective - Vital Signs/Intake and Output Vital Signs (last 24 hours): Temp Pulse Resp BP Pulse Ox 97.1 F L 86 20 148/92 H 97 04/11/17 08:28 04/11/17 08:28 04/11/17 08:28 04/11/17 08:28 04/11/17 08:28 - Medications Medications: Current Medications Acetaminophen (Tylenol 325mg Tab) 650 mg PO Q6 PRN PRN Reason: Pain, Mild (1-3) Last Admin: 03/20/17 08:21 Dose: 650 mg Amantadine HCl (Amantadine 100 Mg Cap) 100 mg PO BID [facility] Last Admin: 04/11/17 09:16 Dose: 100 mg Benzocaine/Menthol (Cepacol Sore Throat) 1 morro PO TID PRN PRN Reason: Sore Throat Last Admin: 04/05/17 20:15 Dose: 1 morro Bethanechol Chloride (Urecholine) 50 mg PO TID [facility] Last Admin: 04/11/17 12:05 Dose: 50 mg Carbidopa/Levodopa (Sinemet Cr) 1 tab PO TID [facility] Last Admin: 04/11/17 12:05 Dose: 1 tab Docusate Sodium (Colace) 100 mg PO BID [facility] Last Admin: 04/11/17 09:16 Dose: 100 mg Famotidine (Pepcid) 40 mg PO HS [facility] Last Admin: 04/10/17 21:06 Dose: 40 mg Fluocinonide (Lidex 0.05% Oint) 1 applic TOP BID [facility] Last Admin: 04/11/17 09:16 Dose: 1 applic Nystatin (Nystop Topical Powder) 1 applic TOP TID [facility] Last Admin: 04/11/17 12:05 Dose: 1 applic Vitamin A (Vitamin A&D) 1 applic TP BID [facility] Last Admin: 04/11/17 09:17 Dose: 1 applic - Labs Labs: 04/05/17 13:30 03/31/17 06:20 PT 11.7 Seconds (9.8-13.1) 03/03/17 10:25 INR 1.1 (0.9-1.2) 03/03/17 10:25 APTT 41.2 Seconds (25.6-37.1) H 03/03/17 10:25 - Respiratory Exam Respiratory Exam: NORMAL BREATHING PATTERN - Cardiovascular Exam Cardiovascular Exam: REGULAR RHYTHM - GI/Abdominal Exam GI & Abdominal Exam: Normal Bowel Sounds Assessment and Plan - Assessment and Plan (Free Text) Assessment: MSA Parkinsons DX Shry Drager Low ext weakness?? Dx progression Neuro consult appreciated Increased frequency urinating UA CS PVR all wnl Disposition?? awaiting transfer to [place] Pt has medical decision making capacity but is financially vulnerable and benefits from legal guardianship Court and Social service involved Pt is [place] S/P Bradycardia Hypotenson chronic A-fib Sepsis ? Autonomic dysfunction? Thrombocytopenia chronic DVT prophylaxis SCD (no Lovenox due to thrombocytopenia) R shoulder pain Dec ROM xrays subluxation Ultram PRN PT Recuurent c-diff Gastroentritis? resolved LGI bleed Thrombocytopenia Decubitus ulcer buttocks S/P UTI Enterrococus S/P Urinary retention S/P UTI Proteus
[2017-04-12] MEDS: Carbidopa/Levodopa 50/200 CR PO SCH ×3 (08:39→16:03)
[2017-04-12] MEDS: Bethanechol 50 MG TAB PO SCH ×3 (08:40→16:03)
[2017-04-12] MEDS: Vitamin A/D oint 60G TP SCH ×2 (08:40→16:03)
--- NOTE | 2017-04-12 15:38 | PN ---
DATE: 04/12/2017 SUBJECTIVE: The patient seen and examined. Interim events noted. The patient was seen by Dr. Najera. Denies any specific complaints. No chest pain. No shortness of breath. PHYSICAL EXAMINATION GENERAL: The patient is in no acute distress. VITAL SIGNS: Stable. HEART: S1 and S2, normal and regular. LUNGS: Good bilateral air exchange. ABDOMEN: Soft and nontender. EXTREMITIES: No edema. No calf swelling. No tenderness. No acute ischemia. CENTRAL NERVOUS SYSTEMS: Essentially unchanged. DIAGNOSTIC DATA: Available diagnostic date reviewed. ASSESSMENT AND PLAN: Overall, the patient's general medical condition is stable. Plan as ordered. Rashaun Mendoza MD
[2017-04-13] MEDS: Bethanechol 50 MG TAB PO SCH ×3 (09:00→16:11)
[2017-04-13] MEDS: Vitamin A/D oint 60G TP SCH ×2 (09:03→16:11)
[2017-04-13] MEDS: Carbidopa/Levodopa 50/200 CR PO SCH ×3 (09:03→16:10)
--- NOTE | 2017-04-13 14:35 | CP.PCM.PN ---
Subjective - Date & Time of Evaluation Date of Evaluation: 04/13/17 Time of Evaluation: 22:22 - Subjective Subjective: c/o shoulder pain Objective - Vital Signs/Intake and Output Vital Signs (last 24 hours): Temp Pulse Resp BP Pulse Ox 97.7 F 66 20 121/71 99 04/13/17 07:26 04/13/17 07:26 04/13/17 07:26 04/13/17 07:26 04/13/17 07:26 - Medications Medications: Current Medications Acetaminophen (Tylenol 325mg Tab) 650 mg PO Q6 PRN PRN Reason: Pain, Mild (1-3) Last Admin: 03/20/17 08:21 Dose: 650 mg Amantadine HCl (Amantadine 100 Mg Cap) 100 mg PO BID [facility] Last Admin: 04/13/17 09:00 Dose: 100 mg Benzocaine/Menthol (Cepacol Sore Throat) 1 morro PO TID PRN PRN Reason: Sore Throat Last Admin: 04/05/17 20:15 Dose: 1 morro Bethanechol Chloride (Urecholine) 50 mg PO TID [facility] Last Admin: 04/13/17 12:31 Dose: 50 mg Carbidopa/Levodopa (Sinemet Cr) 1 tab PO TID [facility] Last Admin: 04/13/17 12:31 Dose: 1 tab Docusate Sodium (Colace) 100 mg PO BID [facility] Last Admin: 04/13/17 08:59 Dose: 100 mg Famotidine (Pepcid) 40 mg PO HS [facility] Last Admin: 04/12/17 21:04 Dose: 40 mg Fluocinonide (Lidex 0.05% Oint) 1 applic TOP BID [facility] Last Admin: 04/13/17 09:00 Dose: 1 applic Nystatin (Nystop Topical Powder) 1 applic TOP TID [facility] Last Admin: 04/13/17 12:31 Dose: 1 applic Vitamin A (Vitamin A&D) 1 applic TP BID [facility] Last Admin: 04/13/17 09:03 Dose: 1 applic - Labs Labs: 04/05/17 13:30 03/31/17 06:20 PT 11.7 Seconds (9.8-13.1) 03/03/17 10:25 INR 1.1 (0.9-1.2) 03/03/17 10:25 APTT 41.2 Seconds (25.6-37.1) H 03/03/17 10:25 - Respiratory Exam Respiratory Exam: NORMAL BREATHING PATTERN - Cardiovascular Exam Cardiovascular Exam: REGULAR RHYTHM - GI/Abdominal Exam GI & Abdominal Exam: Normal Bowel Sounds Assessment and Plan - Assessment and Plan (Free Text) Assessment: MSA Parkinsons DX Shry Drager Low ext weakness?? Dx progression Neuro consult appreciated Increased frequency urinating UA CS PVR all wnl Disposition?? awaiting transfer to [place] Pt has medical decision making capacity but is financially vulnerable and benefits from legal guardianship Court and Social service involved Pt is [place] S/P Bradycardia Hypotenson chronic A-fib Sepsis ? Autonomic dysfunction? Thrombocytopenia chronic DVT prophylaxis SCD (no Lovenox due to thrombocytopenia) R shoulder pain Dec ROM xrays subluxation Ultram PRN PT Recuurent c-diff Gastroentritis? resolved LGI bleed Thrombocytopenia Decubitus ulcer buttocks S/P UTI Enterrococus S/P Urinary retention S/P UTI Proteus
[2017-04-14] MEDS: Bethanechol 50 MG TAB PO SCH ×3 (08:48→18:18)
[2017-04-14] MEDS: Vitamin A/D oint 60G TP SCH ×2 (08:48→18:18)
[2017-04-14] MEDS: Carbidopa/Levodopa 50/200 CR PO SCH ×3 (08:48→18:18)
[2017-04-14] MEDS: Benzocaine/Menthol (Cepacol) Lozenge PO PRN (11:26)
--- NOTE | 2017-04-14 17:10 | CP.PCM.PN ---
Subjective - Date & Time of Evaluation Date of Evaluation: 04/14/17 Time of Evaluation: 22:22 - Subjective Subjective: Above noted Objective - Vital Signs/Intake and Output Vital Signs (last 24 hours): Temp Pulse Resp BP Pulse Ox 97.6 F 56 L 20 121/71 100 04/14/17 16:47 04/14/17 16:47 04/14/17 16:47 04/14/17 16:47 04/14/17 16:47 - Medications Medications: Current Medications Acetaminophen (Tylenol 325mg Tab) 650 mg PO Q6 PRN PRN Reason: Pain, Mild (1-3) Last Admin: 03/20/17 08:21 Dose: 650 mg Amantadine HCl (Amantadine 100 Mg Cap) 100 mg PO BID [facility] Last Admin: 04/14/17 08:47 Dose: 100 mg Benzocaine/Menthol (Cepacol Sore Throat) 1 morro PO TID PRN PRN Reason: Sore Throat Last Admin: 04/14/17 11:26 Dose: 1 morro Bethanechol Chloride (Urecholine) 50 mg PO TID [facility] Last Admin: 04/14/17 13:21 Dose: 50 mg Carbidopa/Levodopa (Sinemet Cr) 1 tab PO TID [facility] Last Admin: 04/14/17 13:21 Dose: 1 tab Docusate Sodium (Colace) 100 mg PO BID [facility] Last Admin: 04/14/17 08:47 Dose: 100 mg Famotidine (Pepcid) 40 mg PO HS [facility] Last Admin: 04/13/17 21:16 Dose: 40 mg Fluocinonide (Lidex 0.05% Oint) 1 applic TOP BID [facility] Last Admin: 04/14/17 08:47 Dose: 1 applic Nystatin (Nystop Topical Powder) 1 applic TOP TID [facility] Last Admin: 04/14/17 13:21 Dose: 1 applic Vitamin A (Vitamin A&D) 1 applic TP BID [facility] Last Admin: 04/14/17 08:48 Dose: 1 applic - Labs Labs: 04/05/17 13:30 03/31/17 06:20 PT 11.7 Seconds (9.8-13.1) 03/03/17 10:25 INR 1.1 (0.9-1.2) 03/03/17 10:25 APTT 41.2 Seconds (25.6-37.1) H 03/03/17 10:25 - Respiratory Exam Respiratory Exam: NORMAL BREATHING PATTERN - Cardiovascular Exam Cardiovascular Exam: REGULAR RHYTHM - GI/Abdominal Exam GI & Abdominal Exam: Normal Bowel Sounds Assessment and Plan - Assessment and Plan (Free Text) Assessment: MSA Parkinsons DX Shry Drager Low ext weakness?? Dx progression Neuro consult appreciated Disposition?? awaiting transfer to [place] Pt has medical decision making capacity but is financially vulnerable and benefits from legal guardianship Court and Social service involved Pt is [place] [employer] S/P Bradycardia Hypotenson chronic A-fib Sepsis ? Autonomic dysfunction? Thrombocytopenia chronic DVT prophylaxis SCD (no Lovenox due to thrombocytopenia) R shoulder pain Dec ROM xrays subluxation Ultram PRN PT Recuurent c-diff Gastroentritis? resolved LGI bleed Thrombocytopenia Decubitus ulcer buttocks Increased frequency urinating UA CS PVR all wnl S/P UTI Enterrococus S/P Urinary retention S/P UTI Proteus
[2017-04-15] MEDS: Vitamin A/D oint 60G TP SCH ×2 (08:01→15:59)
[2017-04-15] MEDS: Bethanechol 50 MG TAB PO SCH ×3 (08:02→16:00)
[2017-04-15] MEDS: Carbidopa/Levodopa 50/200 CR PO SCH ×3 (08:02→16:00)
--- NOTE | 2017-04-15 20:15 | CP.PCM.PN ---
Subjective - Date & Time of Evaluation Date of Evaluation: 04/15/17 Time of Evaluation: 22:22 - Subjective Subjective: Above noted Objective - Vital Signs/Intake and Output Vital Signs (last 24 hours): Temp Pulse Resp BP Pulse Ox 97.7 F 68 20 112/56 L 98 04/15/17 16:34 04/15/17 16:34 04/15/17 16:34 04/15/17 16:34 04/15/17 16:34 - Medications Medications: Current Medications Acetaminophen (Tylenol 325mg Tab) 650 mg PO Q6 PRN PRN Reason: Pain, Mild (1-3) Last Admin: 03/20/17 08:21 Dose: 650 mg Amantadine HCl (Amantadine 100 Mg Cap) 100 mg PO BID [facility] Last Admin: 04/15/17 16:00 Dose: 100 mg Benzocaine/Menthol (Cepacol Sore Throat) 1 morro PO TID PRN PRN Reason: Sore Throat Last Admin: 04/14/17 11:26 Dose: 1 morro Bethanechol Chloride (Urecholine) 50 mg PO TID [facility] Last Admin: 04/15/17 16:00 Dose: 50 mg Carbidopa/Levodopa (Sinemet Cr) 1 tab PO TID [facility] Last Admin: 04/15/17 16:00 Dose: 1 tab Docusate Sodium (Colace) 100 mg PO BID [facility] Last Admin: 04/15/17 15:59 Dose: 100 mg Famotidine (Pepcid) 40 mg PO HS [facility] Last Admin: 04/14/17 21:07 Dose: 40 mg Fluocinonide (Lidex 0.05% Oint) 1 applic TOP BID [facility] Last Admin: 04/15/17 15:59 Dose: 1 applic Nystatin (Nystop Topical Powder) 1 applic TOP TID [facility] Last Admin: 04/15/17 15:59 Dose: 1 applic Vitamin A (Vitamin A&D) 1 applic TP BID [facility] Last Admin: 04/15/17 15:59 Dose: 1 applic - Labs Labs: 04/05/17 13:30 03/31/17 06:20 PT 11.7 Seconds (9.8-13.1) 03/03/17 10:25 INR 1.1 (0.9-1.2) 03/03/17 10:25 APTT 41.2 Seconds (25.6-37.1) H 03/03/17 10:25 - Respiratory Exam Respiratory Exam: NORMAL BREATHING PATTERN - Cardiovascular Exam Cardiovascular Exam: REGULAR RHYTHM - GI/Abdominal Exam GI & Abdominal Exam: Normal Bowel Sounds Assessment and Plan - Assessment and Plan (Free Text) Assessment: MSA Parkinsons DX Shry Drager Low ext weakness?? Dx progression Neuro consult appreciated Disposition?? awaiting transfer to [place] Pt has medical decision making capacity but is financially vulnerable and benefits from legal guardianship Court and Social service involved Pt is [place] S/P Bradycardia Hypotenson chronic A-fib Sepsis ? Autonomic dysfunction? Thrombocytopenia chronic DVT prophylaxis SCD (no Lovenox due to thrombocytopenia) R shoulder pain Dec ROM xrays subluxation Ultram PRN PT Recuurent c-diff Gastroentritis? resolved LGI bleed Thrombocytopenia Decubitus ulcer buttocks Increased frequency urinating UA CS PVR all wnl S/P UTI Enterrococus S/P Urinary retention S/P UTI Proteus
[2017-04-16] MEDS: Vitamin A/D oint 60G TP SCH ×2 (08:31→16:36)
[2017-04-16] MEDS: Bethanechol 50 MG TAB PO SCH ×3 (08:32→16:36)
[2017-04-16] MEDS: Carbidopa/Levodopa 50/200 CR PO SCH ×3 (08:32→16:36)
--- NOTE | 2017-04-16 15:16 | CP.PCM.PN ---
Subjective - Date & Time of Evaluation Date of Evaluation: 04/16/17 Time of Evaluation: 22:22 - Subjective Subjective: Above noted Objective - Vital Signs/Intake and Output Vital Signs (last 24 hours): Temp Pulse Resp BP Pulse Ox 97.5 F L 65 19 124/64 96 04/16/17 07:39 04/16/17 07:39 04/16/17 07:39 04/16/17 07:39 04/16/17 07:39 - Medications Medications: Current Medications Acetaminophen (Tylenol 325mg Tab) 650 mg PO Q6 PRN PRN Reason: Pain, Mild (1-3) Last Admin: 03/20/17 08:21 Dose: 650 mg Amantadine HCl (Amantadine 100 Mg Cap) 100 mg PO BID [facility] Last Admin: 04/16/17 08:32 Dose: 100 mg Benzocaine/Menthol (Cepacol Sore Throat) 1 morro PO TID PRN PRN Reason: Sore Throat Last Admin: 04/14/17 11:26 Dose: 1 morro Bethanechol Chloride (Urecholine) 50 mg PO TID [facility] Last Admin: 04/16/17 12:10 Dose: 50 mg Carbidopa/Levodopa (Sinemet Cr) 1 tab PO TID [facility] Last Admin: 04/16/17 12:10 Dose: 1 tab Docusate Sodium (Colace) 100 mg PO BID [facility] Last Admin: 04/16/17 08:31 Dose: 100 mg Famotidine (Pepcid) 40 mg PO HS [facility] Last Admin: 04/15/17 22:13 Dose: 40 mg Fluocinonide (Lidex 0.05% Oint) 1 applic TOP BID [facility] Last Admin: 04/16/17 08:33 Dose: 1 applic Nystatin (Nystop Topical Powder) 1 applic TOP TID [facility] Last Admin: 04/16/17 12:22 Dose: 1 applic Vitamin A (Vitamin A&D) 1 applic TP BID [facility] Last Admin: 04/16/17 08:31 Dose: 1 applic - Labs Labs: 04/05/17 13:30 03/31/17 06:20 PT 11.7 Seconds (9.8-13.1) 03/03/17 10:25 INR 1.1 (0.9-1.2) 03/03/17 10:25 APTT 41.2 Seconds (25.6-37.1) H 03/03/17 10:25 - Respiratory Exam Respiratory Exam: NORMAL BREATHING PATTERN - Cardiovascular Exam Cardiovascular Exam: REGULAR RHYTHM - GI/Abdominal Exam GI & Abdominal Exam: Normal Bowel Sounds Assessment and Plan - Assessment and Plan (Free Text) Assessment: MSA Parkinsons DX Shry Drager Low ext weakness?? Dx progression Neuro consult appreciated Disposition?? awaiting transfer to [place] Pt has medical decision making capacity but is financially vulnerable and benefits from legal guardianship Court and Social service involved Pt is [place] S/P Bradycardia Hypotenson chronic A-fib Sepsis ? Autonomic dysfunction? Thrombocytopenia chronic DVT prophylaxis SCD (no Lovenox due to thrombocytopenia) R shoulder pain Dec ROM xrays subluxation Ultram PRN PT Recuurent c-diff Gastroentritis? resolved LGI bleed Thrombocytopenia Decubitus ulcer buttocks Increased frequency urinating UA CS PVR all wnl S/P UTI Enterrococus S/P Urinary retention S/P UTI Proteus
[2017-04-17] MEDS: Carbidopa/Levodopa 50/200 CR PO SCH ×3 (08:15→16:20)
[2017-04-17] MEDS: Bethanechol 50 MG TAB PO SCH ×3 (08:15→16:21)
[2017-04-17] MEDS: Vitamin A/D oint 60G TP SCH ×2 (08:17→16:22)
[2017-04-18] MEDS: Vitamin A/D oint 60G TP SCH ×2 (08:42→17:57)
[2017-04-18] MEDS: Bethanechol 50 MG TAB PO SCH ×3 (08:42→17:57)
[2017-04-18] MEDS: Carbidopa/Levodopa 50/200 CR PO SCH ×3 (08:42→17:56)
[2017-04-19] MEDS: Vitamin A/D oint 60G TP SCH ×2 (08:20→16:02)
[2017-04-19] MEDS: Carbidopa/Levodopa 50/200 CR PO SCH ×3 (08:20→16:03)
[2017-04-19] MEDS: Bethanechol 50 MG TAB PO SCH ×3 (08:21→16:03)
--- NOTE | 2017-04-19 23:03 | CP.PCM.PN ---
Subjective - Date & Time of Evaluation Date of Evaluation: 04/19/17 Time of Evaluation: 22:22 - Subjective Subjective: Above noted Objective - Vital Signs/Intake and Output Vital Signs (last 24 hours): Temp Pulse Resp BP Pulse Ox 98 F 75 20 126/74 100 04/19/17 16:54 04/19/17 16:54 04/19/17 16:54 04/19/17 16:54 04/19/17 16:54 - Medications Medications: Current Medications Acetaminophen (Tylenol 325mg Tab) 650 mg PO Q6 PRN PRN Reason: Pain, Mild (1-3) Last Admin: 03/20/17 08:21 Dose: 650 mg Amantadine HCl (Amantadine 100 Mg Cap) 100 mg PO BID [facility] Last Admin: 04/19/17 16:03 Dose: 100 mg Benzocaine/Menthol (Cepacol Sore Throat) 1 morro PO TID PRN PRN Reason: Sore Throat Last Admin: 04/14/17 11:26 Dose: 1 morro Bethanechol Chloride (Urecholine) 50 mg PO TID [facility] Last Admin: 04/19/17 16:03 Dose: 50 mg Carbidopa/Levodopa (Sinemet Cr) 1 tab PO TID [facility] Last Admin: 04/19/17 16:03 Dose: 1 tab Docusate Sodium (Colace) 100 mg PO BID [facility] Last Admin: 04/19/17 16:03 Dose: 100 mg Famotidine (Pepcid) 40 mg PO HS [facility] Last Admin: 04/19/17 22:32 Dose: 40 mg Fluocinonide (Lidex 0.05% Oint) 1 applic TOP BID [facility] Last Admin: 04/19/17 16:02 Dose: 1 applic Nystatin (Nystop Topical Powder) 1 applic TOP TID [facility] Last Admin: 04/19/17 16:02 Dose: 1 applic Vitamin A (Vitamin A&D) 1 applic TP BID [facility] Last Admin: 04/19/17 16:02 Dose: 1 applic - Labs Labs: 04/05/17 13:30 03/31/17 06:20 PT 11.7 Seconds (9.8-13.1) 03/03/17 10:25 INR 1.1 (0.9-1.2) 03/03/17 10:25 APTT 41.2 Seconds (25.6-37.1) H 03/03/17 10:25 - Respiratory Exam Respiratory Exam: NORMAL BREATHING PATTERN - Cardiovascular Exam Cardiovascular Exam: REGULAR RHYTHM - GI/Abdominal Exam GI & Abdominal Exam: Normal Bowel Sounds Assessment and Plan - Assessment and Plan (Free Text) Assessment: MSA Parkinsons DX Shry Drager Low ext weakness?? Dx progression Neuro consult appreciated Disposition?? awaiting transfer to [place] Pt has medical decision making capacity but is financially vulnerable and benefits from legal guardianship Court and Social service involved Pt is [place] S/P Bradycardia Hypotenson chronic A-fib Sepsis ? Autonomic dysfunction? Thrombocytopenia chronic DVT prophylaxis SCD (no Lovenox due to thrombocytopenia) R shoulder pain Dec ROM xrays subluxation Ultram PRN PT Recuurent c-diff Gastroentritis? resolved LGI bleed Thrombocytopenia Decubitus ulcer buttocks Increased frequency urinating UA CS PVR all wnl S/P UTI Enterrococus S/P Urinary retention S/P UTI Proteus
[2017-04-20] MEDS: Vitamin A/D oint 60G TP SCH ×2 (10:06→17:25)
[2017-04-20] MEDS: Carbidopa/Levodopa 50/200 CR PO SCH ×3 (10:06→17:25)
[2017-04-20] MEDS: Bethanechol 50 MG TAB PO SCH ×3 (10:07→17:23)
--- NOTE | 2017-04-20 13:48 | CP.PCM.PN ---
Subjective - Date & Time of Evaluation Date of Evaluation: 04/20/17 Time of Evaluation: 22:22 - Subjective Subjective: Above noted Objective - Vital Signs/Intake and Output Vital Signs (last 24 hours): Temp Pulse Resp BP Pulse Ox 98.1 F 81 18 128/55 L 98 04/20/17 08:39 04/20/17 08:39 04/20/17 08:39 04/20/17 08:39 04/20/17 08:39 - Medications Medications: Current Medications Acetaminophen (Tylenol 325mg Tab) 650 mg PO Q6 PRN PRN Reason: Pain, Mild (1-3) Last Admin: 03/20/17 08:21 Dose: 650 mg Amantadine HCl (Amantadine 100 Mg Cap) 100 mg PO BID [facility] Last Admin: 04/20/17 10:06 Dose: 100 mg Benzocaine/Menthol (Cepacol Sore Throat) 1 morro PO TID PRN PRN Reason: Sore Throat Last Admin: 04/14/17 11:26 Dose: 1 morro Bethanechol Chloride (Urecholine) 50 mg PO TID [facility] Last Admin: 04/20/17 10:07 Dose: 50 mg Carbidopa/Levodopa (Sinemet Cr) 1 tab PO TID [facility] Last Admin: 04/20/17 10:06 Dose: 1 tab Docusate Sodium (Colace) 100 mg PO BID [facility] Last Admin: 04/20/17 10:06 Dose: 100 mg Famotidine (Pepcid) 40 mg PO HS [facility] Last Admin: 04/19/17 22:32 Dose: 40 mg Fluocinonide (Lidex 0.05% Oint) 1 applic TOP BID [facility] Last Admin: 04/20/17 10:08 Dose: 1 applic Nystatin (Nystop Topical Powder) 1 applic TOP TID [facility] Last Admin: 04/20/17 10:08 Dose: 1 applic Vitamin A (Vitamin A&D) 1 applic TP BID [facility] Last Admin: 04/20/17 10:06 Dose: 1 applic - Labs Labs: 04/05/17 13:30 03/31/17 06:20 PT 11.7 Seconds (9.8-13.1) 03/03/17 10:25 INR 1.1 (0.9-1.2) 03/03/17 10:25 APTT 41.2 Seconds (25.6-37.1) H 03/03/17 10:25 - Respiratory Exam Respiratory Exam: NORMAL BREATHING PATTERN - Cardiovascular Exam Cardiovascular Exam: REGULAR RHYTHM - GI/Abdominal Exam GI & Abdominal Exam: Normal Bowel Sounds Assessment and Plan - Assessment and Plan (Free Text) Assessment: MSA Parkinsons DX Shry Drager Low ext weakness?? Dx progression Neuro consult appreciated Disposition?? awaiting transfer to [place] Pt has medical decision making capacity but is financially vulnerable and benefits from legal guardianship Court and Social service involved Pt is [place] S/P Bradycardia Hypotenson chronic A-fib Sepsis ? Autonomic dysfunction? Thrombocytopenia chronic DVT prophylaxis SCD (no Lovenox due to thrombocytopenia) R shoulder pain Dec ROM xrays subluxation Ultram PRN PT Recuurent c-diff Gastroentritis? resolved LGI bleed Thrombocytopenia Decubitus ulcer buttocks Increased frequency urinating UA CS PVR all wnl S/P UTI Enterrococus S/P Urinary retention S/P UTI Proteus
[2017-04-21] MEDS: Carbidopa/Levodopa 50/200 CR PO SCH ×3 (09:10→16:34)
[2017-04-21] MEDS: Bethanechol 50 MG TAB PO SCH ×3 (09:11→16:35)
[2017-04-21] MEDS: Vitamin A/D oint 60G TP SCH ×2 (09:11→16:35)
--- NOTE | 2017-04-21 19:31 | CP.PCM.PN ---
Subjective - Date & Time of Evaluation Date of Evaluation: 04/21/17 Time of Evaluation: 22:22 - Subjective Subjective: Above noted Objective - Vital Signs/Intake and Output Vital Signs (last 24 hours): Temp Pulse Resp BP Pulse Ox 97.6 F 88 19 135/80 95 04/21/17 15:47 04/21/17 15:47 04/21/17 15:47 04/21/17 15:47 04/21/17 15:47 - Medications Medications: Current Medications Acetaminophen (Tylenol 325mg Tab) 650 mg PO Q6 PRN PRN Reason: Pain, Mild (1-3) Last Admin: 03/20/17 08:21 Dose: 650 mg Amantadine HCl (Amantadine 100 Mg Cap) 100 mg PO BID [facility] Last Admin: 04/21/17 16:34 Dose: 100 mg Benzocaine/Menthol (Cepacol Sore Throat) 1 morro PO TID PRN PRN Reason: Sore Throat Last Admin: 04/14/17 11:26 Dose: 1 morro Bethanechol Chloride (Urecholine) 50 mg PO TID [facility] Last Admin: 04/21/17 16:35 Dose: 50 mg Carbidopa/Levodopa (Sinemet Cr) 1 tab PO TID [facility] Last Admin: 04/21/17 16:34 Dose: 1 tab Docusate Sodium (Colace) 100 mg PO BID [facility] Last Admin: 04/21/17 16:34 Dose: Not Given Famotidine (Pepcid) 40 mg PO HS [facility] Last Admin: 04/20/17 21:01 Dose: 40 mg Fluocinonide (Lidex 0.05% Oint) 1 applic TOP BID [facility] Last Admin: 04/21/17 16:35 Dose: 1 applic Nystatin (Nystop Topical Powder) 1 applic TOP TID [facility] Last Admin: 04/21/17 16:35 Dose: 1 applic Vitamin A (Vitamin A&D) 1 applic TP BID [facility] Last Admin: 04/21/17 16:35 Dose: 1 applic - Labs Labs: 04/05/17 13:30 03/31/17 06:20 PT 11.7 Seconds (9.8-13.1) 03/03/17 10:25 INR 1.1 (0.9-1.2) 03/03/17 10:25 APTT 41.2 Seconds (25.6-37.1) H 03/03/17 10:25 - Respiratory Exam Respiratory Exam: NORMAL BREATHING PATTERN - Cardiovascular Exam Cardiovascular Exam: REGULAR RHYTHM - GI/Abdominal Exam GI & Abdominal Exam: Normal Bowel Sounds Assessment and Plan - Assessment and Plan (Free Text) Assessment: MSA Parkinsons DX Shry Drager Low ext weakness?? Dx progression Neuro consult appreciated Disposition?? awaiting transfer to [place] Pt has medical decision making capacity but is financially vulnerable and benefits from legal guardianship Court and Social service involved Pt is [place] S/P Bradycardia Hypotenson chronic A-fib Sepsis ? Autonomic dysfunction? Thrombocytopenia chronic DVT prophylaxis SCD (no Lovenox due to thrombocytopenia) R shoulder pain Dec ROM xrays subluxation Ultram PRN PT Recuurent c-diff Gastroentritis? resolved LGI bleed Thrombocytopenia Decubitus ulcer buttocks Increased frequency urinating UA CS PVR all wnl S/P UTI Enterrococus S/P Urinary retention S/P UTI Proteus
[2017-04-22] MEDS: Bethanechol 50 MG TAB PO SCH ×3 (09:00→17:34)
[2017-04-22] MEDS: Vitamin A/D oint 60G TP SCH ×2 (09:01→17:34)
[2017-04-22] MEDS: Carbidopa/Levodopa 50/200 CR PO SCH ×3 (09:01→17:34)
--- NOTE | 2017-04-22 19:28 | CP.PCM.PN ---
Subjective - Date & Time of Evaluation Date of Evaluation: 04/22/17 Time of Evaluation: 22:22 - Subjective Subjective: Above noted Objective - Vital Signs/Intake and Output Vital Signs (last 24 hours): Temp Pulse Resp BP Pulse Ox 97.5 F L 87 20 120/59 L 97 04/22/17 17:04 04/22/17 17:04 04/22/17 17:04 04/22/17 17:04 04/22/17 17:04 - Medications Medications: Current Medications Acetaminophen (Tylenol 325mg Tab) 650 mg PO Q6 PRN PRN Reason: Pain, Mild (1-3) Last Admin: 03/20/17 08:21 Dose: 650 mg Amantadine HCl (Amantadine 100 Mg Cap) 100 mg PO BID [facility] Last Admin: 04/22/17 17:34 Dose: 100 mg Benzocaine/Menthol (Cepacol Sore Throat) 1 morro PO TID PRN PRN Reason: Sore Throat Last Admin: 04/14/17 11:26 Dose: 1 morro Bethanechol Chloride (Urecholine) 50 mg PO TID [facility] Last Admin: 04/22/17 17:34 Dose: 50 mg Carbidopa/Levodopa (Sinemet Cr) 1 tab PO TID [facility] Last Admin: 04/22/17 17:34 Dose: 1 tab Docusate Sodium (Colace) 100 mg PO BID [facility] Last Admin: 04/22/17 17:38 Dose: 100 mg Famotidine (Pepcid) 40 mg PO HS [facility] Last Admin: 04/21/17 22:13 Dose: 40 mg Fluocinonide (Lidex 0.05% Oint) 1 applic TOP BID [facility] Last Admin: 04/22/17 17:38 Dose: 1 applic Nystatin (Nystop Topical Powder) 1 applic TOP TID [facility] Last Admin: 04/22/17 17:38 Dose: 1 applic Vitamin A (Vitamin A&D) 1 applic TP BID [facility] Last Admin: 04/22/17 17:34 Dose: 1 applic - Labs Labs: 04/05/17 13:30 03/31/17 06:20 PT 11.7 Seconds (9.8-13.1) 03/03/17 10:25 INR 1.1 (0.9-1.2) 03/03/17 10:25 APTT 41.2 Seconds (25.6-37.1) H 03/03/17 10:25 - Respiratory Exam Respiratory Exam: NORMAL BREATHING PATTERN - Cardiovascular Exam Cardiovascular Exam: REGULAR RHYTHM - GI/Abdominal Exam GI & Abdominal Exam: Normal Bowel Sounds Assessment and Plan - Assessment and Plan (Free Text) Assessment: MSA Parkinsons DX Shry Drager Low ext weakness?? Dx progression Neuro consult appreciated Disposition?? awaiting transfer to [place] Pt has medical decision making capacity but is financially vulnerable and benefits from legal guardianship Court and Social service involved Pt is [place] S/P Bradycardia Hypotenson chronic A-fib Sepsis ? Autonomic dysfunction? Thrombocytopenia chronic DVT prophylaxis SCD (no Lovenox due to thrombocytopenia) R shoulder pain Dec ROM xrays subluxation Ultram PRN PT Recuurent c-diff Gastroentritis? resolved LGI bleed Thrombocytopenia Decubitus ulcer buttocks Increased frequency urinating UA CS PVR all wnl S/P UTI Enterrococus S/P Urinary retention S/P UTI Proteus
[2017-04-23] MEDS: Bethanechol 50 MG TAB PO SCH ×3 (09:27→17:20)
[2017-04-23] MEDS: Carbidopa/Levodopa 50/200 CR PO SCH ×3 (09:27→17:20)
[2017-04-23] MEDS: Vitamin A/D oint 60G TP SCH ×2 (09:28→17:21)
--- NOTE | 2017-04-23 16:08 | CP.PCM.PN ---
Subjective - Date & Time of Evaluation Date of Evaluation: 04/23/17 Time of Evaluation: 22:22 - Subjective Subjective: Above noted Objective - Vital Signs/Intake and Output Vital Signs (last 24 hours): Temp Pulse Resp BP Pulse Ox 98.1 F 54 L 20 130/60 100 04/23/17 07:47 04/23/17 07:47 04/23/17 07:47 04/23/17 07:47 04/23/17 07:47 - Medications Medications: Current Medications Acetaminophen (Tylenol 325mg Tab) 650 mg PO Q6 PRN PRN Reason: Pain, Mild (1-3) Last Admin: 03/20/17 08:21 Dose: 650 mg Amantadine HCl (Amantadine 100 Mg Cap) 100 mg PO BID [facility] Last Admin: 04/23/17 09:27 Dose: 100 mg Benzocaine/Menthol (Cepacol Sore Throat) 1 morro PO TID PRN PRN Reason: Sore Throat Last Admin: 04/14/17 11:26 Dose: 1 morro Bethanechol Chloride (Urecholine) 50 mg PO TID [facility] Last Admin: 04/23/17 13:33 Dose: 50 mg Carbidopa/Levodopa (Sinemet Cr) 1 tab PO TID [facility] Last Admin: 04/23/17 13:32 Dose: 1 tab Docusate Sodium (Colace) 100 mg PO BID [facility] Last Admin: 04/23/17 09:27 Dose: 100 mg Famotidine (Pepcid) 40 mg PO HS [facility] Last Admin: 04/22/17 21:53 Dose: 40 mg Fluocinonide (Lidex 0.05% Oint) 1 applic TOP BID [facility] Last Admin: 04/23/17 09:28 Dose: 1 applic Nystatin (Nystop Topical Powder) 1 applic TOP TID [facility] Last Admin: 04/23/17 13:33 Dose: 1 applic Vitamin A (Vitamin A&D) 1 applic TP BID [facility] Last Admin: 04/23/17 09:28 Dose: 1 applic - Labs Labs: 04/05/17 13:30 03/31/17 06:20 PT 11.7 Seconds (9.8-13.1) 03/03/17 10:25 INR 1.1 (0.9-1.2) 03/03/17 10:25 APTT 41.2 Seconds (25.6-37.1) H 03/03/17 10:25 - Respiratory Exam Respiratory Exam: NORMAL BREATHING PATTERN - Cardiovascular Exam Cardiovascular Exam: REGULAR RHYTHM - GI/Abdominal Exam GI & Abdominal Exam: Normal Bowel Sounds Assessment and Plan - Assessment and Plan (Free Text) Assessment: MSA Parkinsons DX Shry Drager Low ext weakness?? Dx progression Neuro consult appreciated Disposition?? awaiting transfer to [place] Pt has medical decision making capacity but is financially vulnerable and benefits from legal guardianship Court and Social service involved Pt is [place] WW[place] S/P Bradycardia Hypotenson chronic A-fib Sepsis ? Autonomic dysfunction? Thrombocytopenia chronic DVT prophylaxis SCD (no Lovenox due to thrombocytopenia) R shoulder pain Dec ROM xrays subluxation Ultram PRN PT Recuurent c-diff Gastroentritis? resolved LGI bleed Thrombocytopenia Decubitus ulcer buttocks Increased frequency urinating UA CS PVR all wnl S/P UTI Enterrococus S/P Urinary retention S/P UTI Proteus
[2017-04-24] MEDS: Vitamin A/D oint 60G TP SCH ×2 (09:42→17:15)
[2017-04-24] MEDS: Carbidopa/Levodopa 50/200 CR PO SCH ×3 (09:43→17:14)
[2017-04-24] MEDS: Bethanechol 50 MG TAB PO SCH ×3 (09:43→17:15)
--- NOTE | 2017-04-24 21:50 | CP.PCM.PN ---
Subjective - Date & Time of Evaluation Date of Evaluation: 04/24/17 Time of Evaluation: 22:22 - Subjective Subjective: Above noted Objective - Vital Signs/Intake and Output Vital Signs (last 24 hours): Temp Pulse Resp BP Pulse Ox 97.3 F L 70 20 105/59 L 97 04/24/17 16:40 04/24/17 16:40 04/24/17 16:40 04/24/17 16:40 04/24/17 16:40 - Medications Medications: Current Medications Acetaminophen (Tylenol 325mg Tab) 650 mg PO Q6 PRN PRN Reason: Pain, Mild (1-3) Last Admin: 03/20/17 08:21 Dose: 650 mg Amantadine HCl (Amantadine 100 Mg Cap) 100 mg PO BID [facility] Last Admin: 04/24/17 17:14 Dose: 100 mg Benzocaine/Menthol (Cepacol Sore Throat) 1 morro PO TID PRN PRN Reason: Sore Throat Last Admin: 04/14/17 11:26 Dose: 1 morro Bethanechol Chloride (Urecholine) 50 mg PO TID [facility] Last Admin: 04/24/17 17:15 Dose: 50 mg Carbidopa/Levodopa (Sinemet Cr) 1 tab PO TID [facility] Last Admin: 04/24/17 17:14 Dose: 1 tab Docusate Sodium (Colace) 100 mg PO BID [facility] Last Admin: 04/24/17 17:14 Dose: 100 mg Famotidine (Pepcid) 40 mg PO HS [facility] Last Admin: 04/24/17 21:17 Dose: 40 mg Fluocinonide (Lidex 0.05% Oint) 1 applic TOP BID [facility] Last Admin: 04/24/17 17:15 Dose: 1 applic Nystatin (Nystop Topical Powder) 1 applic TOP TID [facility] Last Admin: 04/24/17 17:15 Dose: 1 applic Vitamin A (Vitamin A&D) 1 applic TP BID [facility] Last Admin: 04/24/17 17:15 Dose: 1 applic - Labs Labs: 04/05/17 13:30 03/31/17 06:20 PT 11.7 Seconds (9.8-13.1) 03/03/17 10:25 INR 1.1 (0.9-1.2) 03/03/17 10:25 APTT 41.2 Seconds (25.6-37.1) H 03/03/17 10:25 - Respiratory Exam Respiratory Exam: NORMAL BREATHING PATTERN - Cardiovascular Exam Cardiovascular Exam: REGULAR RHYTHM - GI/Abdominal Exam GI & Abdominal Exam: Normal Bowel Sounds Assessment and Plan - Assessment and Plan (Free Text) Assessment: MSA Parkinsons DX Shry Drager Low ext weakness?? Dx progression Neuro consult appreciated Disposition?? awaiting transfer to [place] Pt has medical decision making capacity but is financially vulnerable and benefits from legal guardianship Court and Social service involved Pt is [place] S/P Bradycardia Hypotenson chronic A-fib Sepsis ? Autonomic dysfunction? Thrombocytopenia chronic DVT prophylaxis SCD (no Lovenox due to thrombocytopenia) R shoulder pain Dec ROM xrays subluxation Ultram PRN PT Recuurent c-diff Gastroentritis? resolved LGI bleed Thrombocytopenia Decubitus ulcer buttocks Increased frequency urinating UA CS PVR all wnl S/P UTI Enterrococus S/P Urinary retention S/P UTI Proteus
--- NOTE | 2017-04-25 07:13 | CP.PCM.PN ---
Subjective - Date & Time of Evaluation Date of Evaluation: 04/25/17 Time of Evaluation: 22:22 - Subjective Subjective: Above noted Objective - Vital Signs/Intake and Output Vital Signs (last 24 hours): Temp Pulse Resp BP Pulse Ox 98.5 F 71 18 115/63 97 04/25/17 01:00 04/25/17 01:00 04/25/17 01:00 04/25/17 01:00 04/25/17 01:00 - Medications Medications: Current Medications Acetaminophen (Tylenol 325mg Tab) 650 mg PO Q6 PRN PRN Reason: Pain, Mild (1-3) Last Admin: 03/20/17 08:21 Dose: 650 mg Amantadine HCl (Amantadine 100 Mg Cap) 100 mg PO BID [facility] Last Admin: 04/24/17 17:14 Dose: 100 mg Benzocaine/Menthol (Cepacol Sore Throat) 1 morro PO TID PRN PRN Reason: Sore Throat Last Admin: 04/14/17 11:26 Dose: 1 morro Bethanechol Chloride (Urecholine) 50 mg PO TID [facility] Last Admin: 04/24/17 17:15 Dose: 50 mg Carbidopa/Levodopa (Sinemet Cr) 1 tab PO TID [facility] Last Admin: 04/24/17 17:14 Dose: 1 tab Docusate Sodium (Colace) 100 mg PO BID [facility] Last Admin: 04/24/17 17:14 Dose: 100 mg Famotidine (Pepcid) 40 mg PO HS [facility] Last Admin: 04/24/17 21:17 Dose: 40 mg Fluocinonide (Lidex 0.05% Oint) 1 applic TOP BID [facility] Last Admin: 04/24/17 17:15 Dose: 1 applic Nystatin (Nystop Topical Powder) 1 applic TOP TID [facility] Last Admin: 04/24/17 17:15 Dose: 1 applic Vitamin A (Vitamin A&D) 1 applic TP BID [facility] Last Admin: 04/24/17 17:15 Dose: 1 applic - Labs Labs: 04/05/17 13:30 03/31/17 06:20 PT 11.7 Seconds (9.8-13.1) 03/03/17 10:25 INR 1.1 (0.9-1.2) 03/03/17 10:25 APTT 41.2 Seconds (25.6-37.1) H 03/03/17 10:25 - Respiratory Exam Respiratory Exam: NORMAL BREATHING PATTERN - Cardiovascular Exam Cardiovascular Exam: REGULAR RHYTHM - GI/Abdominal Exam GI & Abdominal Exam: Normal Bowel Sounds Assessment and Plan - Assessment and Plan (Free Text) Assessment: MSA Parkinsons DX Shry Drager Low ext weakness?? Dx progression Neuro consult appreciated Disposition?? awaiting transfer to [place] Pt has medical decision making capacity but is financially vulnerable and benefits from legal guardianship Court and Social service involved Pt is [place] S/P Bradycardia Hypotenson chronic A-fib Sepsis ? Autonomic dysfunction? Thrombocytopenia chronic DVT prophylaxis SCD (no Lovenox due to thrombocytopenia) R shoulder pain Dec ROM xrays subluxation Ultram PRN PT Recuurent c-diff Gastroentritis? resolved LGI bleed Thrombocytopenia Decubitus ulcer buttocks Increased frequency urinating UA CS PVR all wnl S/P UTI Enterrococus S/P Urinary retention S/P UTI Proteus
[2017-04-25] MEDS: Carbidopa/Levodopa 50/200 CR PO SCH (09:13)
[2017-04-25] MEDS: Bethanechol 50 MG TAB PO SCH (09:14)
[2017-04-25] MEDS: Vitamin A/D oint 60G TP SCH (09:14)
[2017-04-26] MEDS: Carbidopa/Levodopa 50/200 CR PO SCH ×3 (08:55→17:01)
[2017-04-26] MEDS: Bethanechol 50 MG TAB PO SCH ×3 (08:55→17:01)
[2017-04-26] MEDS: Vitamin A/D oint 60G TP SCH ×2 (08:56→17:01)
--- NOTE | 2017-04-26 10:00 | CP.PCM.PN ---
Subjective - Date & Time of Evaluation Date of Evaluation: 04/26/17 Time of Evaluation: 22:22 - Subjective Subjective: Above noted Objective - Vital Signs/Intake and Output Vital Signs (last 24 hours): Temp Pulse Resp BP Pulse Ox 97.9 F 87 19 129/83 95 04/26/17 08:00 04/26/17 08:00 04/26/17 08:00 04/26/17 08:00 04/26/17 08:00 - Medications Medications: Current Medications Acetaminophen (Tylenol 325mg Tab) 650 mg PO Q6 PRN PRN Reason: Pain, Mild (1-3) Last Admin: 03/20/17 08:21 Dose: 650 mg Amantadine HCl (Amantadine 100 Mg Cap) 100 mg PO BID [facility] Last Admin: 04/26/17 08:51 Dose: 100 mg Benzocaine/Menthol (Cepacol Sore Throat) 1 morro PO TID PRN PRN Reason: Sore Throat Last Admin: 04/14/17 11:26 Dose: 1 morro Bethanechol Chloride (Urecholine) 50 mg PO TID [facility] Last Admin: 04/26/17 08:55 Dose: 50 mg Carbidopa/Levodopa (Sinemet Cr) 1 tab PO TID [facility] Last Admin: 04/26/17 08:55 Dose: 1 tab Docusate Sodium (Colace) 100 mg PO BID [facility] Last Admin: 04/26/17 08:52 Dose: 100 mg Famotidine (Pepcid) 40 mg PO HS [facility] Last Admin: 04/25/17 21:23 Dose: 40 mg Fluocinonide (Lidex 0.05% Oint) 1 applic TOP BID [facility] Last Admin: 04/26/17 08:54 Dose: 1 applic Nystatin (Nystop Topical Powder) 1 applic TOP TID [facility] Last Admin: 04/26/17 08:54 Dose: 1 applic Vitamin A (Vitamin A&D) 1 applic TP BID [facility] Last Admin: 04/26/17 08:56 Dose: 1 applic - Labs Labs: 04/05/17 13:30 03/31/17 06:20 PT 11.7 Seconds (9.8-13.1) 03/03/17 10:25 INR 1.1 (0.9-1.2) 03/03/17 10:25 APTT 41.2 Seconds (25.6-37.1) H 03/03/17 10:25 - Respiratory Exam Respiratory Exam: NORMAL BREATHING PATTERN - Cardiovascular Exam Cardiovascular Exam: REGULAR RHYTHM - GI/Abdominal Exam GI & Abdominal Exam: Normal Bowel Sounds Assessment and Plan - Assessment and Plan (Free Text) Assessment: MSA Parkinsons DX Shry Drager Low ext weakness?? Dx progression Neuro consult appreciated Disposition?? awaiting transfer to [place] Pt has medical decision making capacity but is financially vulnerable and benefits from legal guardianship Court and Social service involved Pt is [place] WW[place] S/P Bradycardia Hypotenson chronic A-fib Sepsis ? Autonomic dysfunction? Thrombocytopenia chronic DVT prophylaxis SCD (no Lovenox due to thrombocytopenia) R shoulder pain Dec ROM xrays subluxation Ultram PRN PT Recuurent c-diff Gastroentritis? resolved LGI bleed Thrombocytopenia Decubitus ulcer buttocks Increased frequency urinating UA CS PVR all wnl S/P UTI Enterrococus S/P Urinary retention S/P UTI Proteus
[2017-04-27] MEDS: Bethanechol 50 MG TAB PO SCH ×3 (09:19→16:07)
[2017-04-27] MEDS: Carbidopa/Levodopa 50/200 CR PO SCH ×3 (09:19→16:06)
[2017-04-27] MEDS: Vitamin A/D oint 60G TP SCH ×2 (09:21→16:07)
--- NOTE | 2017-04-27 13:52 | CP.PCM.PN ---
Subjective - Date & Time of Evaluation Date of Evaluation: 04/27/17 Time of Evaluation: 22:22 - Subjective Subjective: c/o fatigue Objective - Vital Signs/Intake and Output Vital Signs (last 24 hours): Temp Pulse Resp BP Pulse Ox 97.8 F 57 L 19 112/66 99 04/27/17 07:58 04/27/17 07:58 04/27/17 07:58 04/27/17 07:58 04/27/17 07:58 - Medications Medications: Current Medications Acetaminophen (Tylenol 325mg Tab) 650 mg PO Q6 PRN PRN Reason: Pain, Mild (1-3) Last Admin: 03/20/17 08:21 Dose: 650 mg Amantadine HCl (Amantadine 100 Mg Cap) 100 mg PO BID [facility] Last Admin: 04/27/17 09:20 Dose: 100 mg Benzocaine/Menthol (Cepacol Sore Throat) 1 morro PO TID PRN PRN Reason: Sore Throat Last Admin: 04/14/17 11:26 Dose: 1 morro Bethanechol Chloride (Urecholine) 50 mg PO TID [facility] Last Admin: 04/27/17 09:19 Dose: 50 mg Carbidopa/Levodopa (Sinemet Cr) 1 tab PO TID [facility] Last Admin: 04/27/17 09:19 Dose: 1 tab Docusate Sodium (Colace) 100 mg PO BID [facility] Last Admin: 04/27/17 09:19 Dose: 100 mg Famotidine (Pepcid) 40 mg PO HS [facility] Last Admin: 04/26/17 21:50 Dose: 40 mg Fluocinonide (Lidex 0.05% Oint) 1 applic TOP BID [facility] Last Admin: 04/27/17 09:20 Dose: 1 applic Nystatin (Nystop Topical Powder) 1 applic TOP TID [facility] Last Admin: 04/27/17 09:21 Dose: 1 applic Vitamin A (Vitamin A&D) 1 applic TP BID [facility] Last Admin: 04/27/17 09:21 Dose: 1 applic - Labs Labs: 04/05/17 13:30 03/31/17 06:20 PT 11.7 Seconds (9.8-13.1) 03/03/17 10:25 INR 1.1 (0.9-1.2) 03/03/17 10:25 APTT 41.2 Seconds (25.6-37.1) H 03/03/17 10:25 - Respiratory Exam Respiratory Exam: NORMAL BREATHING PATTERN - Cardiovascular Exam Cardiovascular Exam: REGULAR RHYTHM - GI/Abdominal Exam GI & Abdominal Exam: Normal Bowel Sounds Assessment and Plan - Assessment and Plan (Free Text) Assessment: Fatigue?? Meds?? Labs reconsult Neuro MSA Parkinsons DX Shry Drager Low ext weakness?? Dx progression Disposition?? awaiting transfer to [place] Pt has medical decision making capacity but is financially vulnerable and benefits from legal guardianship Court and Social service involved Pt is [place] WW[place] S/P Bradycardia Hypotenson chronic A-fib Sepsis ? Autonomic dysfunction? Thrombocytopenia chronic DVT prophylaxis SCD (no Lovenox due to thrombocytopenia) R shoulder pain Dec ROM xrays subluxation Ultram PRN PT Recuurent c-diff Gastroentritis? resolved LGI bleed Thrombocytopenia Decubitus ulcer buttocks Increased frequency urinating UA CS PVR all wnl S/P UTI Enterrococus S/P Urinary retention S/P UTI Proteus
[2017-04-27 15:16] LABS: MEAN CELL VOLUME 95.3 fl (80.0-94.0); MEAN CORPUSCULAR HEMOGLOBIN 32.1 pg (27.0-31.0); MEAN CORPUSCULAR HGB CONC 33.7 g/dL (33.0-37.0); RBC 4.04 Mil/uL (4.40-5.90); RED CELL DISTRIBUTION WIDTH 14.2 % (11.5-14.5); WHITE BLOOD COUNT 5.6 K/uL (4.8-10.8)
[2017-04-27 15:28] LABS: ALB/GLOB RATIO 1.3 (1.0-2.1); ALBUMIN 3.9 g/dL (3.5-5.0); ALT/SGPT 21 U/L (21-72); AST/SGOT 23 U/L (17-59); BLOOD UREA NITROGEN 20 mg/dl (9-20); CALCIUM 8.5 mg/dL (8.4-10.2); GFR AFRICAN-AMERICAN > 60; GFR NON-AFRICAN AMERICAN > 60
[2017-04-28] MEDS: Bethanechol 50 MG TAB PO SCH ×3 (08:52→17:26)
[2017-04-28] MEDS: Carbidopa/Levodopa 50/200 CR PO SCH ×3 (08:52→18:15)
[2017-04-28] MEDS: Vitamin A/D oint 60G TP SCH ×2 (08:53→18:16)
--- NOTE | 2017-04-28 13:11 | CP.PCM.PN ---
Subjective - Date & Time of Evaluation Date of Evaluation: 04/28/17 Time of Evaluation: 22:22 - Subjective Subjective: Above noted Objective - Vital Signs/Intake and Output Vital Signs (last 24 hours): Temp Pulse Resp BP Pulse Ox 97.6 F 51 L 20 127/62 99 04/28/17 08:14 04/28/17 08:14 04/28/17 08:14 04/28/17 08:14 04/28/17 08:14 - Medications Medications: Current Medications Acetaminophen (Tylenol 325mg Tab) 650 mg PO Q6 PRN PRN Reason: Pain, Mild (1-3) Last Admin: 03/20/17 08:21 Dose: 650 mg Amantadine HCl (Amantadine 100 Mg Cap) 100 mg PO BID [facility] Last Admin: 04/28/17 08:50 Dose: 100 mg Benzocaine/Menthol (Cepacol Sore Throat) 1 morro PO TID PRN PRN Reason: Sore Throat Last Admin: 04/14/17 11:26 Dose: 1 morro Bethanechol Chloride (Urecholine) 50 mg PO TID [facility] Last Admin: 04/28/17 08:52 Dose: 50 mg Carbidopa/Levodopa (Sinemet Cr) 1 tab PO TID [facility] Last Admin: 04/28/17 08:52 Dose: 1 tab Docusate Sodium (Colace) 100 mg PO BID [facility] Last Admin: 04/28/17 08:50 Dose: 100 mg Famotidine (Pepcid) 40 mg PO HS [facility] Last Admin: 04/27/17 22:17 Dose: 40 mg Fluocinonide (Lidex 0.05% Oint) 1 applic TOP BID [facility] Last Admin: 04/28/17 08:51 Dose: 1 applic Nystatin (Nystop Topical Powder) 1 applic TOP TID [facility] Last Admin: 04/28/17 08:51 Dose: 1 applic Vitamin A (Vitamin A&D) 1 applic TP BID [facility] Last Admin: 04/28/17 08:53 Dose: 1 applic - Labs Labs: 04/27/17 14:30 04/27/17 14:30 PT 11.7 Seconds (9.8-13.1) 03/03/17 10:25 INR 1.1 (0.9-1.2) 03/03/17 10:25 APTT 41.2 Seconds (25.6-37.1) H 03/03/17 10:25 - Respiratory Exam Respiratory Exam: NORMAL BREATHING PATTERN - Cardiovascular Exam Cardiovascular Exam: REGULAR RHYTHM - GI/Abdominal Exam GI & Abdominal Exam: Normal Bowel Sounds Assessment and Plan - Assessment and Plan (Free Text) Assessment: Fatigue?? Meds?? Labs reconsult Neuro MSA Parkinsons DX Shry Drager Low ext weakness?? Dx progression Disposition?? awaiting transfer to [place] Pt has medical decision making capacity but is financially vulnerable and benefits from legal guardianship Court and Social service involved Pt is [place] WWII S/P Bradycardia Hypotenson chronic A-fib Sepsis ? Autonomic dysfunction? Thrombocytopenia chronic DVT prophylaxis SCD (no Lovenox due to thrombocytopenia) R shoulder pain Dec ROM xrays subluxation Ultram PRN PT Recuurent c-diff Gastroentritis? resolved LGI bleed Thrombocytopenia Decubitus ulcer buttocks Increased frequency urinating UA CS PVR all wnl S/P UTI Enterrococus S/P Urinary retention S/P UTI Proteus
[2017-04-29] MEDS: Carbidopa/Levodopa 50/200 CR PO SCH ×3 (09:27→17:23)
[2017-04-29] MEDS: Bethanechol 50 MG TAB PO SCH ×3 (09:28→17:21)
[2017-04-29] MEDS: Vitamin A/D oint 60G TP SCH ×2 (09:28→17:23)
--- NOTE | 2017-04-29 20:44 | CP.PCM.PN ---
Subjective - Date & Time of Evaluation Date of Evaluation: 04/29/17 Time of Evaluation: 22:22 - Subjective Subjective: Labs okay Objective - Vital Signs/Intake and Output Vital Signs (last 24 hours): Temp Pulse Resp BP Pulse Ox 97.6 F 68 20 130/74 99 04/29/17 17:22 04/29/17 17:22 04/29/17 17:22 04/29/17 17:22 04/29/17 17:22 - Medications Medications: Current Medications Acetaminophen (Tylenol 325mg Tab) 650 mg PO Q6 PRN PRN Reason: Pain, Mild (1-3) Last Admin: 03/20/17 08:21 Dose: 650 mg Amantadine HCl (Amantadine 100 Mg Cap) 100 mg PO BID [facility] Last Admin: 04/29/17 17:22 Dose: 100 mg Benzocaine/Menthol (Cepacol Sore Throat) 1 morro PO TID PRN PRN Reason: Sore Throat Last Admin: 04/14/17 11:26 Dose: 1 morro Bethanechol Chloride (Urecholine) 50 mg PO TID [facility] Last Admin: 04/29/17 17:21 Dose: 50 mg Carbidopa/Levodopa (Sinemet Cr) 1 tab PO TID [facility] Last Admin: 04/29/17 17:23 Dose: 1 tab Docusate Sodium (Colace) 100 mg PO BID [facility] Last Admin: 04/29/17 17:22 Dose: 100 mg Famotidine (Pepcid) 40 mg PO HS [facility] Last Admin: 04/28/17 21:03 Dose: 40 mg Fluocinonide (Lidex 0.05% Oint) 1 applic TOP BID [facility] Last Admin: 04/29/17 17:22 Dose: 1 applic Nystatin (Nystop Topical Powder) 1 applic TOP TID [facility] Last Admin: 04/29/17 17:22 Dose: 1 applic Vitamin A (Vitamin A&D) 1 applic TP BID [facility] Last Admin: 04/29/17 17:23 Dose: 1 applic - Labs Labs: 04/27/17 14:30 04/27/17 14:30 PT 11.7 Seconds (9.8-13.1) 03/03/17 10:25 INR 1.1 (0.9-1.2) 03/03/17 10:25 APTT 41.2 Seconds (25.6-37.1) H 03/03/17 10:25 - Respiratory Exam Respiratory Exam: NORMAL BREATHING PATTERN - Cardiovascular Exam Cardiovascular Exam: REGULAR RHYTHM - GI/Abdominal Exam GI & Abdominal Exam: Normal Bowel Sounds Assessment and Plan - Assessment and Plan (Free Text) Assessment: MSA Parkinsons DX Shry Drager Low ext weakness?? Dx progression Disposition?? awaiting transfer to [place] Pt has medical decision making capacity but is financially vulnerable and benefits from legal guardianship Court and Social service involved Pt is [place] S/P Bradycardia Hypotenson chronic A-fib Sepsis ? Autonomic dysfunction? Thrombocytopenia chronic DVT prophylaxis SCD (no Lovenox due to thrombocytopenia) R shoulder pain Dec ROM xrays subluxation Ultram PRN PT Recuurent c-diff Gastroentritis? resolved LGI bleed Thrombocytopenia Decubitus ulcer buttocks Increased frequency urinating UA CS PVR all wnl S/P UTI Enterrococus S/P Urinary retention S/P UTI Proteus
[2017-04-30] MEDS: Vitamin A/D oint 60G TP SCH ×2 (08:59→16:40)
[2017-04-30] MEDS: Carbidopa/Levodopa 50/200 CR PO SCH ×3 (08:59→16:39)
[2017-04-30] MEDS: Bethanechol 50 MG TAB PO SCH ×3 (08:59→16:40)
--- NOTE | 2017-04-30 14:22 | CP.PCM.PN ---
Subjective - Date & Time of Evaluation Date of Evaluation: 04/30/17 Time of Evaluation: 22:22 - Subjective Subjective: ABove noted Objective - Vital Signs/Intake and Output Vital Signs (last 24 hours): Temp Pulse Resp BP Pulse Ox 97.8 F 68 19 123/69 99 04/30/17 08:11 04/30/17 08:11 04/30/17 08:11 04/30/17 08:11 04/30/17 08:11 - Medications Medications: Current Medications Acetaminophen (Tylenol 325mg Tab) 650 mg PO Q6 PRN PRN Reason: Pain, Mild (1-3) Last Admin: 03/20/17 08:21 Dose: 650 mg Amantadine HCl (Amantadine 100 Mg Cap) 100 mg PO BID [facility] Last Admin: 04/30/17 08:57 Dose: 100 mg Benzocaine/Menthol (Cepacol Sore Throat) 1 morro PO TID PRN PRN Reason: Sore Throat Last Admin: 04/14/17 11:26 Dose: 1 morro Bethanechol Chloride (Urecholine) 50 mg PO TID [facility] Last Admin: 04/30/17 13:02 Dose: 50 mg Carbidopa/Levodopa (Sinemet Cr) 1 tab PO TID [facility] Last Admin: 04/30/17 13:02 Dose: 1 tab Docusate Sodium (Colace) 100 mg PO BID [facility] Last Admin: 04/30/17 08:58 Dose: 100 mg Famotidine (Pepcid) 40 mg PO HS [facility] Last Admin: 04/29/17 22:27 Dose: 40 mg Fluocinonide (Lidex 0.05% Oint) 1 applic TOP BID [facility] Last Admin: 04/30/17 08:58 Dose: 1 applic Nystatin (Nystop Topical Powder) 1 applic TOP TID [facility] Last Admin: 04/30/17 13:01 Dose: 1 applic Vitamin A (Vitamin A&D) 1 applic TP BID [facility] Last Admin: 04/30/17 08:59 Dose: 1 applic - Labs Labs: 04/27/17 14:30 04/27/17 14:30 PT 11.7 Seconds (9.8-13.1) 03/03/17 10:25 INR 1.1 (0.9-1.2) 03/03/17 10:25 APTT 41.2 Seconds (25.6-37.1) H 03/03/17 10:25 - Respiratory Exam Respiratory Exam: NORMAL BREATHING PATTERN - Cardiovascular Exam Cardiovascular Exam: REGULAR RHYTHM - GI/Abdominal Exam GI & Abdominal Exam: Normal Bowel Sounds Assessment and Plan - Assessment and Plan (Free Text) Assessment: MSA Parkinsons DX Shry Drager Low ext weakness?? Dx progression Disposition?? awaiting transfer to [place] Pt has medical decision making capacity but is financially vulnerable and benefits from legal guardianship Court and Social service involved Pt is [place] WW[employer] S/P Bradycardia Hypotenson chronic A-fib Sepsis ? Autonomic dysfunction? Thrombocytopenia chronic DVT prophylaxis SCD (no Lovenox due to thrombocytopenia) R shoulder pain Dec ROM xrays subluxation Ultram PRN PT Recuurent c-diff Gastroentritis? resolved LGI bleed Thrombocytopenia Decubitus ulcer buttocks Increased frequency urinating UA CS PVR all wnl S/P UTI Enterrococus S/P Urinary retention S/P UTI Proteus
[2017-05-01] MEDS: Bethanechol 50 MG TAB PO SCH ×3 (10:56→16:38)
[2017-05-01] MEDS: Vitamin A/D oint 60G TP SCH ×3 (10:56→16:38)
[2017-05-01] MEDS: Carbidopa/Levodopa 50/200 CR PO SCH ×4 (10:56→16:38)
--- NOTE | 2017-05-01 15:31 | CP.PCM.PN ---
Subjective - Date & Time of Evaluation Date of Evaluation: 05/01/17 Time of Evaluation: 22:22 - Subjective Subjective: Above noted Objective - Vital Signs/Intake and Output Vital Signs (last 24 hours): Temp Pulse Resp BP Pulse Ox 97.3 F L 64 18 120/67 100 05/01/17 07:23 05/01/17 07:23 05/01/17 07:23 05/01/17 07:23 05/01/17 07:23 - Medications Medications: Current Medications Acetaminophen (Tylenol 325mg Tab) 650 mg PO Q6 PRN PRN Reason: Pain, Mild (1-3) Last Admin: 03/20/17 08:21 Dose: 650 mg Amantadine HCl (Amantadine 100 Mg Cap) 100 mg PO BID [facility] Last Admin: 05/01/17 10:54 Dose: 100 mg Benzocaine/Menthol (Cepacol Sore Throat) 1 morro PO TID PRN PRN Reason: Sore Throat Last Admin: 04/14/17 11:26 Dose: 1 morro Bethanechol Chloride (Urecholine) 50 mg PO TID [facility] Last Admin: 05/01/17 14:05 Dose: 50 mg Carbidopa/Levodopa (Sinemet Cr) 1 tab PO TID [facility] Last Admin: 05/01/17 14:05 Dose: 1 tab Docusate Sodium (Colace) 100 mg PO BID [facility] Last Admin: 05/01/17 10:55 Dose: 100 mg Famotidine (Pepcid) 40 mg PO HS [facility] Last Admin: 04/30/17 22:55 Dose: 40 mg Fluocinonide (Lidex 0.05% Oint) 1 applic TOP BID [facility] Last Admin: 04/30/17 16:39 Dose: 1 applic Nystatin (Nystop Topical Powder) 1 applic TOP TID [facility] Last Admin: 05/01/17 14:06 Dose: 1 applic Vitamin A (Vitamin A&D) 1 applic TP BID [facility] Last Admin: 05/01/17 10:57 Dose: 1 applic - Labs Labs: 04/27/17 14:30 04/27/17 14:30 PT 11.7 Seconds (9.8-13.1) 03/03/17 10:25 INR 1.1 (0.9-1.2) 03/03/17 10:25 APTT 41.2 Seconds (25.6-37.1) H 03/03/17 10:25 - Respiratory Exam Respiratory Exam: NORMAL BREATHING PATTERN - Cardiovascular Exam Cardiovascular Exam: REGULAR RHYTHM - GI/Abdominal Exam GI & Abdominal Exam: Normal Bowel Sounds Assessment and Plan - Assessment and Plan (Free Text) Assessment: MSA Parkinsons DX Shry Drager Low ext weakness?? Dx progression Disposition?? awaiting transfer to [place] Pt has medical decision making capacity but is financially vulnerable and benefits from legal guardianship Court and Social service involved Pt is [place] S/P Bradycardia Hypotenson chronic A-fib Sepsis ? Autonomic dysfunction? Thrombocytopenia chronic DVT prophylaxis SCD (no Lovenox due to thrombocytopenia) R shoulder pain Dec ROM xrays subluxation Ultram PRN PT Recuurent c-diff Gastroentritis? resolved LGI bleed Thrombocytopenia Decubitus ulcer buttocks Increased frequency urinating UA CS PVR all wnl S/P UTI Enterrococus S/P Urinary retention S/P UTI Proteus
[2017-05-02] MEDS: Carbidopa/Levodopa 50/200 CR PO SCH ×3 (10:12→17:43)
[2017-05-02] MEDS: Bethanechol 50 MG TAB PO SCH ×3 (10:12→17:44)
[2017-05-02] MEDS: Vitamin A/D oint 60G TP SCH ×2 (10:15→17:44)
[2017-05-02 11:46] LABS: HEMOGLOBIN 12.8 g/dL (12.0-18.0); MEAN CELL VOLUME 95.7 fl (80.0-94.0); MEAN CORPUSCULAR HEMOGLOBIN 31.5 pg (27.0-31.0); MEAN CORPUSCULAR HGB CONC 32.9 g/dL (33.0-37.0); RBC 4.05 Mil/uL (4.40-5.90); RED CELL DISTRIBUTION WIDTH 13.9 % (11.5-14.5); WHITE BLOOD COUNT 5.1 K/uL (4.8-10.8)
[2017-05-02 11:58] LABS: BLOOD UREA NITROGEN 20 mg/dl (9-20); CALCIUM 8.8 mg/dL (8.4-10.2); GFR AFRICAN-AMERICAN > 60; GFR NON-AFRICAN AMERICAN > 60
--- NOTE | 2017-05-02 18:34 | CP.PCM.PN ---
Subjective - Date & Time of Evaluation Date of Evaluation: 05/02/17 Time of Evaluation: 22:22 - Subjective Subjective: Above noted Objective - Vital Signs/Intake and Output Vital Signs (last 24 hours): Temp Pulse Resp BP Pulse Ox 97.6 F 63 20 112/71 100 05/02/17 16:42 05/02/17 16:42 05/02/17 16:42 05/02/17 16:42 05/02/17 16:42 - Medications Medications: Current Medications Acetaminophen (Tylenol 325mg Tab) 650 mg PO Q6 PRN PRN Reason: Pain, Mild (1-3) Last Admin: 03/20/17 08:21 Dose: 650 mg Amantadine HCl (Amantadine 100 Mg Cap) 100 mg PO BID [facility] Last Admin: 05/02/17 17:43 Dose: 100 mg Benzocaine/Menthol (Cepacol Sore Throat) 1 morro PO TID PRN PRN Reason: Sore Throat Last Admin: 04/14/17 11:26 Dose: 1 morro Bethanechol Chloride (Urecholine) 50 mg PO TID [facility] Last Admin: 05/02/17 17:44 Dose: 50 mg Carbidopa/Levodopa (Sinemet Cr) 1 tab PO TID [facility] Last Admin: 05/02/17 17:43 Dose: 1 tab Docusate Sodium (Colace) 100 mg PO BID [facility] Last Admin: 05/02/17 17:43 Dose: 100 mg Famotidine (Pepcid) 40 mg PO HS [facility] Last Admin: 05/01/17 22:28 Dose: 40 mg Fluocinonide (Lidex 0.05% Oint) 1 applic TOP BID [facility] Last Admin: 05/02/17 17:46 Dose: 1 applic Heparin Sodium (Porcine) (Heparin) 5,000 units SC Q12 TU PRN Reason: Protocol Nystatin (Nystop Topical Powder) 1 applic TOP TID [facility] Last Admin: 05/02/17 17:46 Dose: 1 applic Vitamin A (Vitamin A&D) 1 applic TP BID [facility] Last Admin: 05/02/17 17:44 Dose: 1 applic - Labs Labs: 05/02/17 11:35 05/02/17 11:35 PT 11.7 Seconds (9.8-13.1) 03/03/17 10:25 INR 1.1 (0.9-1.2) 03/03/17 10:25 APTT 41.2 Seconds (25.6-37.1) H 03/03/17 10:25 - Respiratory Exam Respiratory Exam: NORMAL BREATHING PATTERN - Cardiovascular Exam Cardiovascular Exam: REGULAR RHYTHM - GI/Abdominal Exam GI & Abdominal Exam: Normal Bowel Sounds Assessment and Plan - Assessment and Plan (Free Text) Assessment: MSA Parkinsons DX Shry Drager Low ext weakness?? Dx progression Disposition?? awaiting transfer to [place] Pt has medical decision making capacity but is financially vulnerable and benefits from legal guardianship Court and Social service involved Pt is [place] S/P Bradycardia Hypotenson chronic A-fib Sepsis ? Autonomic dysfunction? Thrombocytopenia chronic DVT prophylaxis SCD (no Lovenox due to thrombocytopenia) R shoulder pain Dec ROM xrays subluxation Ultram PRN PT Recuurent c-diff Gastroentritis? resolved LGI bleed Thrombocytopenia Decubitus ulcer buttocks Increased frequency urinating UA CS PVR all wnl S/P UTI Enterrococus S/P Urinary retention S/P UTI Proteus
[2017-05-03] MEDS: Bethanechol 50 MG TAB PO SCH ×3 (09:55→16:23)
[2017-05-03] MEDS: Carbidopa/Levodopa 50/200 CR PO SCH ×3 (09:56→16:23)
[2017-05-03] MEDS: Vitamin A/D oint 60G TP SCH ×2 (09:57→16:22)
[2017-05-04] MEDS: Carbidopa/Levodopa 50/200 CR PO SCH ×3 (10:52→16:27)
[2017-05-04] MEDS: Bethanechol 50 MG TAB PO SCH ×3 (10:52→16:27)
[2017-05-04] MEDS: Vitamin A/D oint 60G TP SCH ×2 (10:52→16:28)
--- NOTE | 2017-05-04 13:03 | CP.PCM.PN ---
Subjective - Date & Time of Evaluation Date of Evaluation: 05/04/17 Time of Evaluation: 22:22 - Subjective Subjective: Above noted Objective - Vital Signs/Intake and Output Vital Signs (last 24 hours): Temp Pulse Resp BP Pulse Ox 97.6 F 81 20 119/68 96 05/04/17 08:25 05/04/17 08:25 05/04/17 08:25 05/04/17 08:25 05/04/17 08:25 - Medications Medications: Current Medications Acetaminophen (Tylenol 325mg Tab) 650 mg PO Q6 PRN PRN Reason: Pain, Mild (1-3) Last Admin: 03/20/17 08:21 Dose: 650 mg Amantadine HCl (Amantadine 100 Mg Cap) 100 mg PO BID [facility] Last Admin: 05/04/17 10:52 Dose: 100 mg Benzocaine/Menthol (Cepacol Sore Throat) 1 morro PO TID PRN PRN Reason: Sore Throat Last Admin: 04/14/17 11:26 Dose: 1 morro Bethanechol Chloride (Urecholine) 50 mg PO TID [facility] Last Admin: 05/04/17 10:52 Dose: 50 mg Carbidopa/Levodopa (Sinemet Cr) 1 tab PO TID [facility] Last Admin: 05/04/17 10:52 Dose: 1 tab Docusate Sodium (Colace) 100 mg PO BID [facility] Last Admin: 05/04/17 10:51 Dose: 100 mg Famotidine (Pepcid) 40 mg PO HS [facility] Last Admin: 05/03/17 22:14 Dose: 40 mg Fluocinonide (Lidex 0.05% Oint) 1 applic TOP BID [facility] Last Admin: 05/04/17 10:55 Dose: 1 applic Nystatin (Nystop Topical Powder) 1 applic TOP TID [facility] Last Admin: 05/04/17 10:55 Dose: 1 applic Vitamin A (Vitamin A&D) 1 applic TP BID [facility] Last Admin: 05/04/17 10:52 Dose: 1 applic - Labs Labs: 05/02/17 11:35 05/02/17 11:35 PT 11.7 Seconds (9.8-13.1) 03/03/17 10:25 INR 1.1 (0.9-1.2) 03/03/17 10:25 APTT 41.2 Seconds (25.6-37.1) H 03/03/17 10:25 - Respiratory Exam Respiratory Exam: NORMAL BREATHING PATTERN - Cardiovascular Exam Cardiovascular Exam: REGULAR RHYTHM - GI/Abdominal Exam GI & Abdominal Exam: Normal Bowel Sounds Assessment and Plan - Assessment and Plan (Free Text) Assessment: MSA Parkinsons DX Shry Drager Low ext weakness?? Dx progression Disposition?? awaiting transfer to [place] Pt has medical decision making capacity but is financially vulnerable and benefits from legal guardianship Court and Social service involved Pt is [place] WW[place] S/P Bradycardia Hypotenson chronic A-fib Sepsis ? Autonomic dysfunction? Thrombocytopenia chronic DVT prophylaxis SCD (no Lovenox due to thrombocytopenia) R shoulder pain Dec ROM xrays subluxation Ultram PRN PT Recuurent c-diff Gastroentritis? resolved LGI bleed Thrombocytopenia Decubitus ulcer buttocks Increased frequency urinating UA CS PVR all wnl S/P UTI Enterrococus S/P Urinary retention S/P UTI Proteus
[2017-05-05] MEDS: Vitamin A/D oint 60G TP SCH ×2 (08:06→17:18)
[2017-05-05] MEDS: Bethanechol 50 MG TAB PO SCH ×3 (08:07→17:21)
[2017-05-05] MEDS: Carbidopa/Levodopa 50/200 CR PO SCH ×3 (08:07→17:21)
--- NOTE | 2017-05-05 20:11 | CP.PCM.PN ---
Subjective - Date & Time of Evaluation Date of Evaluation: 05/05/17 Time of Evaluation: 02:22 - Subjective Subjective: Resting Objective - Vital Signs/Intake and Output Vital Signs (last 24 hours): Temp Pulse Resp BP Pulse Ox 98.0 F 87 20 97/57 L 97 05/05/17 15:55 05/05/17 15:55 05/05/17 15:55 05/05/17 15:55 05/05/17 15:55 - Medications Medications: Current Medications Acetaminophen (Tylenol 325mg Tab) 650 mg PO Q6 PRN PRN Reason: Pain, Mild (1-3) Last Admin: 03/20/17 08:21 Dose: 650 mg Amantadine HCl (Amantadine 100 Mg Cap) 100 mg PO BID [facility] Last Admin: 05/05/17 17:20 Dose: 100 mg Benzocaine/Menthol (Cepacol Sore Throat) 1 morro PO TID PRN PRN Reason: Sore Throat Last Admin: 04/14/17 11:26 Dose: 1 morro Bethanechol Chloride (Urecholine) 50 mg PO TID [facility] Last Admin: 05/05/17 17:21 Dose: 50 mg Carbidopa/Levodopa (Sinemet Cr) 1 tab PO TID [facility] Last Admin: 05/05/17 17:21 Dose: 1 tab Docusate Sodium (Colace) 100 mg PO BID [facility] Last Admin: 05/05/17 17:20 Dose: 100 mg Famotidine (Pepcid) 40 mg PO HS [facility] Last Admin: 05/04/17 21:48 Dose: 40 mg Fluocinonide (Lidex 0.05% Oint) 1 applic TOP BID [facility] Last Admin: 05/05/17 17:21 Dose: 1 applic Nystatin (Nystop Topical Powder) 1 applic TOP TID [facility] Last Admin: 05/05/17 17:21 Dose: 1 applic Vitamin A (Vitamin A&D) 1 applic TP BID [facility] Last Admin: 05/05/17 17:18 Dose: 1 applic - Labs Labs: 05/02/17 11:35 05/02/17 11:35 PT 11.7 Seconds (9.8-13.1) 03/03/17 10:25 INR 1.1 (0.9-1.2) 03/03/17 10:25 APTT 41.2 Seconds (25.6-37.1) H 03/03/17 10:25 - Respiratory Exam Respiratory Exam: NORMAL BREATHING PATTERN - Cardiovascular Exam Cardiovascular Exam: REGULAR RHYTHM - GI/Abdominal Exam GI & Abdominal Exam: Normal Bowel Sounds Assessment and Plan - Assessment and Plan (Free Text) Assessment: MSA Parkinsons DX Shry Drager Low ext weakness?? Dx progression Disposition?? awaiting transfer to [place] Pt has medical decision making capacity but is financially vulnerable and benefits from legal guardianship Court and Social service involved Pt is [place] S/P Bradycardia Hypotenson chronic A-fib Sepsis ? Autonomic dysfunction? Thrombocytopenia chronic DVT prophylaxis SCD (no Lovenox due to thrombocytopenia) R shoulder pain Dec ROM xrays subluxation Ultram PRN PT Recuurent c-diff Gastroentritis? resolved LGI bleed Thrombocytopenia Decubitus ulcer buttocks Increased frequency urinating UA CS PVR all wnl S/P UTI Enterrococus S/P Urinary retention S/P UTI Proteus
[2017-05-06] MEDS: Carbidopa/Levodopa 50/200 CR PO SCH ×3 (08:50→17:29)
[2017-05-06] MEDS: Bethanechol 50 MG TAB PO SCH ×3 (08:50→17:29)
[2017-05-06] MEDS: Vitamin A/D oint 60G TP SCH ×2 (08:50→17:29)
[2017-05-06] MEDS: Benzocaine/Menthol (Cepacol) Lozenge PO PRN (18:37)
--- NOTE | 2017-05-06 20:14 | CP.PCM.PN ---
Subjective - Date & Time of Evaluation Date of Evaluation: 05/06/17 Time of Evaluation: 22:22 - Subjective Subjective: doing well Objective - Vital Signs/Intake and Output Vital Signs (last 24 hours): Temp Pulse Resp BP Pulse Ox 97.4 F L 86 20 113/69 98 05/06/17 07:28 05/06/17 07:28 05/06/17 07:28 05/06/17 07:28 05/06/17 07:28 - Medications Medications: Current Medications Acetaminophen (Tylenol 325mg Tab) 650 mg PO Q6 PRN PRN Reason: Pain, Mild (1-3) Last Admin: 03/20/17 08:21 Dose: 650 mg Amantadine HCl (Amantadine 100 Mg Cap) 100 mg PO BID [facility] Last Admin: 05/06/17 17:28 Dose: 100 mg Benzocaine/Menthol (Cepacol Sore Throat) 1 morro PO TID PRN PRN Reason: Sore Throat Last Admin: 05/06/17 18:37 Dose: 1 morro Bethanechol Chloride (Urecholine) 50 mg PO TID [facility] Last Admin: 05/06/17 17:29 Dose: 50 mg Carbidopa/Levodopa (Sinemet Cr) 1 tab PO TID [facility] Last Admin: 05/06/17 17:29 Dose: 1 tab Docusate Sodium (Colace) 100 mg PO BID [facility] Last Admin: 05/06/17 17:29 Dose: 100 mg Famotidine (Pepcid) 40 mg PO HS [facility] Last Admin: 05/05/17 21:21 Dose: 40 mg Fluocinonide (Lidex 0.05% Oint) 1 applic TOP BID [facility] Last Admin: 05/06/17 17:29 Dose: 1 applic Nystatin (Nystop Topical Powder) 1 applic TOP TID [facility] Last Admin: 05/06/17 17:29 Dose: 1 applic Vitamin A (Vitamin A&D) 1 applic TP BID [facility] Last Admin: 05/06/17 17:29 Dose: 1 applic - Labs Labs: 05/02/17 11:35 05/02/17 11:35 PT 11.7 Seconds (9.8-13.1) 03/03/17 10:25 INR 1.1 (0.9-1.2) 03/03/17 10:25 APTT 41.2 Seconds (25.6-37.1) H 03/03/17 10:25 - Respiratory Exam Respiratory Exam: NORMAL BREATHING PATTERN - Cardiovascular Exam Cardiovascular Exam: REGULAR RHYTHM - GI/Abdominal Exam GI & Abdominal Exam: Normal Bowel Sounds Assessment and Plan - Assessment and Plan (Free Text) Assessment: MSA Parkinsons DX Shry Drager Low ext weakness?? Dx progression Disposition?? awaiting transfer to [place] Pt has medical decision making capacity but is financially vulnerable and benefits from legal guardianship Court and Social service involved Pt is [place] WWII S/P Bradycardia Hypotenson chronic A-fib Sepsis ? Autonomic dysfunction? Thrombocytopenia chronic DVT prophylaxis SCD (no Lovenox due to thrombocytopenia) R shoulder pain Dec ROM xrays subluxation Ultram PRN PT Recuurent c-diff Gastroentritis? resolved LGI bleed Thrombocytopenia Decubitus ulcer buttocks Increased frequency urinating UA CS PVR all wnl S/P UTI Enterrococus S/P Urinary retention S/P UTI Proteus
[2017-05-07] MEDS: Bethanechol 50 MG TAB PO SCH ×3 (09:38→17:03)
[2017-05-07] MEDS: Vitamin A/D oint 60G TP SCH ×2 (09:38→17:03)
[2017-05-07] MEDS: Carbidopa/Levodopa 50/200 CR PO SCH ×3 (09:39→17:03)
--- NOTE | 2017-05-07 19:00 | CP.PCM.PN ---
Subjective - Date & Time of Evaluation Date of Evaluation: 05/07/17 Time of Evaluation: 22:22 - Subjective Subjective: Above noted Objective - Vital Signs/Intake and Output Vital Signs (last 24 hours): Temp Pulse Resp BP Pulse Ox 97.6 F 74 20 112/62 97 05/07/17 16:14 05/07/17 16:14 05/07/17 16:14 05/07/17 16:14 05/07/17 16:14 - Medications Medications: Current Medications Acetaminophen (Tylenol 325mg Tab) 650 mg PO Q6 PRN PRN Reason: Pain, Mild (1-3) Last Admin: 03/20/17 08:21 Dose: 650 mg Amantadine HCl (Amantadine 100 Mg Cap) 100 mg PO BID [facility] Last Admin: 05/07/17 17:03 Dose: 100 mg Benzocaine/Menthol (Cepacol Sore Throat) 1 morro PO TID PRN PRN Reason: Sore Throat Last Admin: 05/06/17 18:37 Dose: 1 morro Bethanechol Chloride (Urecholine) 50 mg PO TID [facility] Last Admin: 05/07/17 17:03 Dose: 50 mg Carbidopa/Levodopa (Sinemet Cr) 1 tab PO TID [facility] Last Admin: 05/07/17 17:03 Dose: 1 tab Docusate Sodium (Colace) 100 mg PO BID [facility] Last Admin: 05/07/17 17:03 Dose: 100 mg Famotidine (Pepcid) 40 mg PO HS [facility] Last Admin: 05/06/17 21:43 Dose: 40 mg Fluocinonide (Lidex 0.05% Oint) 1 applic TOP BID [facility] Last Admin: 05/07/17 17:04 Dose: 1 applic Nystatin (Nystop Topical Powder) 1 applic TOP TID [facility] Last Admin: 05/07/17 17:04 Dose: 1 applic Vitamin A (Vitamin A&D) 1 applic TP BID [facility] Last Admin: 05/07/17 17:03 Dose: 1 applic - Labs Labs: 05/02/17 11:35 05/02/17 11:35 PT 11.7 Seconds (9.8-13.1) 03/03/17 10:25 INR 1.1 (0.9-1.2) 03/03/17 10:25 APTT 41.2 Seconds (25.6-37.1) H 03/03/17 10:25 - Respiratory Exam Respiratory Exam: NORMAL BREATHING PATTERN - Cardiovascular Exam Cardiovascular Exam: REGULAR RHYTHM - GI/Abdominal Exam GI & Abdominal Exam: Normal Bowel Sounds Assessment and Plan - Assessment and Plan (Free Text) Assessment: MSA Parkinsons DX Shry Drager Low ext weakness?? Dx progression Disposition?? awaiting transfer to [place] Pt has medical decision making capacity but is financially vulnerable and benefits from legal guardianship Court and Social service involved Pt is [place] WW[place] S/P Bradycardia Hypotenson chronic A-fib Sepsis ? Autonomic dysfunction? Thrombocytopenia chronic DVT prophylaxis SCD (no Lovenox due to thrombocytopenia) R shoulder pain Dec ROM xrays subluxation Ultram PRN PT Recuurent c-diff Gastroentritis? resolved LGI bleed Thrombocytopenia Decubitus ulcer buttocks Increased frequency urinating UA CS PVR all wnl S/P UTI Enterrococus S/P Urinary retention S/P UTI Proteus
[2017-05-08] MEDS: Carbidopa/Levodopa 50/200 CR PO SCH ×3 (09:19→16:16)
[2017-05-08] MEDS: Vitamin A/D oint 60G TP SCH ×2 (09:19→16:15)
[2017-05-08] MEDS: Bethanechol 50 MG TAB PO SCH ×3 (09:20→16:16)
--- NOTE | 2017-05-08 20:14 | CP.PCM.PN ---
Subjective - Date & Time of Evaluation Date of Evaluation: 05/08/17 Time of Evaluation: 22:22 - Subjective Subjective: Above noted Objective - Vital Signs/Intake and Output Vital Signs (last 24 hours): Temp Pulse Resp BP Pulse Ox 97.5 F L 89 20 109/74 92 L 05/08/17 16:32 05/08/17 16:32 05/08/17 16:32 05/08/17 16:32 05/08/17 16:32 - Medications Medications: Current Medications Acetaminophen (Tylenol 325mg Tab) 650 mg PO Q6 PRN PRN Reason: Pain, Mild (1-3) Last Admin: 03/20/17 08:21 Dose: 650 mg Amantadine HCl (Amantadine 100 Mg Cap) 100 mg PO BID [facility] Last Admin: 05/08/17 16:16 Dose: 100 mg Benzocaine/Menthol (Cepacol Sore Throat) 1 morro PO TID PRN PRN Reason: Sore Throat Last Admin: 05/06/17 18:37 Dose: 1 morro Bethanechol Chloride (Urecholine) 50 mg PO TID [facility] Last Admin: 05/08/17 16:16 Dose: 50 mg Carbidopa/Levodopa (Sinemet Cr) 1 tab PO TID [facility] Last Admin: 05/08/17 16:16 Dose: 1 tab Docusate Sodium (Colace) 100 mg PO BID [facility] Last Admin: 05/08/17 16:15 Dose: 100 mg Famotidine (Pepcid) 40 mg PO HS [facility] Last Admin: 05/07/17 21:18 Dose: 40 mg Fluocinonide (Lidex 0.05% Oint) 1 applic TOP BID [facility] Last Admin: 05/08/17 16:17 Dose: 1 applic Nystatin (Nystop Topical Powder) 1 applic TOP TID [facility] Last Admin: 05/08/17 16:17 Dose: 1 applic Vitamin A (Vitamin A&D) 1 applic TP BID [facility] Last Admin: 05/08/17 16:15 Dose: 1 applic - Labs Labs: 05/02/17 11:35 05/02/17 11:35 PT 11.7 Seconds (9.8-13.1) 03/03/17 10:25 INR 1.1 (0.9-1.2) 03/03/17 10:25 APTT 41.2 Seconds (25.6-37.1) H 03/03/17 10:25 - Respiratory Exam Respiratory Exam: NORMAL BREATHING PATTERN - Cardiovascular Exam Cardiovascular Exam: REGULAR RHYTHM - GI/Abdominal Exam GI & Abdominal Exam: Normal Bowel Sounds Assessment and Plan - Assessment and Plan (Free Text) Assessment: MSA Parkinsons DX Shry Drager Low ext weakness?? Dx progression Disposition?? awaiting transfer to [place] Pt has medical decision making capacity but is financially vulnerable and benefits from legal guardianship Court and Social service involved Pt is [place] WWII S/P Bradycardia Hypotenson chronic A-fib Sepsis ? Autonomic dysfunction? Thrombocytopenia chronic DVT prophylaxis SCD (no Lovenox due to thrombocytopenia) R shoulder pain Dec ROM xrays subluxation Ultram PRN PT Recuurent c-diff Gastroentritis? resolved LGI bleed Thrombocytopenia Decubitus ulcer buttocks Increased frequency urinating UA CS PVR all wnl S/P UTI Enterrococus S/P Urinary retention S/P UTI Proteus
[2017-05-09] MEDS: Carbidopa/Levodopa 50/200 CR PO SCH ×3 (09:25→17:21)
[2017-05-09] MEDS: Vitamin A/D oint 60G TP SCH ×2 (09:26→17:21)
[2017-05-09] MEDS: Bethanechol 50 MG TAB PO SCH ×3 (09:26→17:21)
--- NOTE | 2017-05-09 16:15 | CP.PCM.PN ---
Subjective - Date & Time of Evaluation Date of Evaluation: 05/09/17 Time of Evaluation: 22:22 - Subjective Subjective: above noted Objective - Vital Signs/Intake and Output Vital Signs (last 24 hours): Temp Pulse Resp BP Pulse Ox 97.5 F L 70 20 110/63 98 05/09/17 16:13 05/09/17 16:13 05/09/17 16:13 05/09/17 16:13 05/09/17 16:13 - Medications Medications: Current Medications Acetaminophen (Tylenol 325mg Tab) 650 mg PO Q6 PRN PRN Reason: Pain, Mild (1-3) Last Admin: 03/20/17 08:21 Dose: 650 mg Amantadine HCl (Amantadine 100 Mg Cap) 100 mg PO BID [facility] Last Admin: 05/09/17 09:26 Dose: 100 mg Benzocaine/Menthol (Cepacol Sore Throat) 1 morro PO TID PRN PRN Reason: Sore Throat Last Admin: 05/06/17 18:37 Dose: 1 morro Bethanechol Chloride (Urecholine) 50 mg PO TID [facility] Last Admin: 05/09/17 12:58 Dose: 50 mg Carbidopa/Levodopa (Sinemet Cr) 1 tab PO TID [facility] Last Admin: 05/09/17 12:58 Dose: 1 tab Docusate Sodium (Colace) 100 mg PO BID [facility] Last Admin: 05/09/17 09:26 Dose: 100 mg Famotidine (Pepcid) 40 mg PO HS [facility] Last Admin: 05/08/17 21:25 Dose: 40 mg Fluocinonide (Lidex 0.05% Oint) 1 applic TOP BID [facility] Last Admin: 05/09/17 09:28 Dose: 1 applic Nystatin (Nystop Topical Powder) 1 applic TOP TID [facility] Last Admin: 05/09/17 12:59 Dose: 1 applic Vitamin A (Vitamin A&D) 1 applic TP BID [facility] Last Admin: 05/09/17 09:26 Dose: 1 applic - Labs Labs: 05/02/17 11:35 05/02/17 11:35 PT 11.7 Seconds (9.8-13.1) 03/03/17 10:25 INR 1.1 (0.9-1.2) 03/03/17 10:25 APTT 41.2 Seconds (25.6-37.1) H 03/03/17 10:25 - Respiratory Exam Respiratory Exam: NORMAL BREATHING PATTERN - Cardiovascular Exam Cardiovascular Exam: REGULAR RHYTHM - GI/Abdominal Exam GI & Abdominal Exam: Normal Bowel Sounds Assessment and Plan - Assessment and Plan (Free Text) Assessment: MSA Parkinsons DX Shry Drager Low ext weakness?? Dx progression Disposition?? awaiting transfer to [place] Pt has medical decision making capacity but is financially vulnerable and benefits from legal guardianship Court and Social service involved Pt is WWII S/P Bradycardia Hypotenson chronic A-fib Sepsis ? Autonomic dysfunction? Thrombocytopenia chronic DVT prophylaxis SCD (no Lovenox due to thrombocytopenia) R shoulder pain Dec ROM xrays subluxation Ultram PRN PT Recuurent c-diff Gastroentritis? resolved LGI bleed Thrombocytopenia Decubitus ulcer buttocks Increased frequency urinating UA CS PVR all wnl S/P UTI Enterrococus S/P Urinary retention S/P UTI Proteus
--- NOTE | 2017-05-10 07:07 | CP.PCM.PN ---
Subjective - Date & Time of Evaluation Date of Evaluation: 05/10/17 Time of Evaluation: 22:22 - Subjective Subjective: Sleeping Objective - Vital Signs/Intake and Output Vital Signs (last 24 hours): Temp Pulse Resp BP Pulse Ox 97.8 F 60 20 117/82 98 05/10/17 01:05 05/10/17 01:05 05/10/17 01:05 05/10/17 01:05 05/10/17 01:05 - Medications Medications: Current Medications Acetaminophen (Tylenol 325mg Tab) 650 mg PO Q6 PRN PRN Reason: Pain, Mild (1-3) Last Admin: 03/20/17 08:21 Dose: 650 mg Amantadine HCl (Amantadine 100 Mg Cap) 100 mg PO BID [facility] Last Admin: 05/09/17 17:21 Dose: 100 mg Benzocaine/Menthol (Cepacol Sore Throat) 1 morro PO TID PRN PRN Reason: Sore Throat Last Admin: 05/06/17 18:37 Dose: 1 morro Bethanechol Chloride (Urecholine) 50 mg PO TID [facility] Last Admin: 05/09/17 17:21 Dose: 50 mg Carbidopa/Levodopa (Sinemet Cr) 1 tab PO TID [facility] Last Admin: 05/09/17 17:21 Dose: 1 tab Docusate Sodium (Colace) 100 mg PO BID [facility] Last Admin: 05/09/17 17:21 Dose: 100 mg Famotidine (Pepcid) 40 mg PO HS [facility] Last Admin: 05/09/17 21:15 Dose: 40 mg Fluocinonide (Lidex 0.05% Oint) 1 applic TOP BID [facility] Last Admin: 05/09/17 17:23 Dose: 1 applic Nystatin (Nystop Topical Powder) 1 applic TOP TID [facility] Last Admin: 05/09/17 17:23 Dose: 1 applic Vitamin A (Vitamin A&D) 1 applic TP BID [facility] Last Admin: 05/09/17 17:21 Dose: 1 applic - Labs Labs: 05/02/17 11:35 05/02/17 11:35 PT 11.7 Seconds (9.8-13.1) 03/03/17 10:25 INR 1.1 (0.9-1.2) 03/03/17 10:25 APTT 41.2 Seconds (25.6-37.1) H 03/03/17 10:25 - Respiratory Exam Respiratory Exam: NORMAL BREATHING PATTERN - Cardiovascular Exam Cardiovascular Exam: REGULAR RHYTHM - GI/Abdominal Exam GI & Abdominal Exam: Normal Bowel Sounds Assessment and Plan - Assessment and Plan (Free Text) Assessment: MSA Parkinsons DX Shry Drager Low ext weakness?? Dx progression Disposition?? awaiting transfer to [place] Pt has medical decision making capacity but is financially vulnerable and benefits from legal guardianship Court and Social service involved Pt is WW[place] S/P Bradycardia Hypotenson chronic A-fib Sepsis ? Autonomic dysfunction? Thrombocytopenia chronic DVT prophylaxis SCD (no Lovenox due to thrombocytopenia) R shoulder pain Dec ROM xrays subluxation Ultram PRN PT Recuurent c-diff Gastroentritis? resolved LGI bleed Thrombocytopenia Decubitus ulcer buttocks Increased frequency urinating UA CS PVR all wnl S/P UTI Enterrococus S/P Urinary retention S/P UTI Proteus
[2017-05-10] MEDS: Vitamin A/D oint 60G TP SCH ×2 (09:48→16:48)
[2017-05-10] MEDS: Bethanechol 50 MG TAB PO SCH ×3 (09:48→16:48)
[2017-05-10] MEDS: Carbidopa/Levodopa 50/200 CR PO SCH ×3 (09:48→16:48)
[2017-05-11] MEDS: Carbidopa/Levodopa 50/200 CR PO SCH ×3 (09:19→16:55)
[2017-05-11] MEDS: Bethanechol 50 MG TAB PO SCH ×2 (09:19→16:56)
[2017-05-11] MEDS: Vitamin A/D oint 60G TP SCH ×2 (09:19→16:57)
--- NOTE | 2017-05-11 15:15 | CP.PCM.PN ---
Subjective - Date & Time of Evaluation Date of Evaluation: 05/11/17 Time of Evaluation: 22:22 - Subjective Subjective: Above noted Objective - Vital Signs/Intake and Output Vital Signs (last 24 hours): Temp Pulse Resp BP Pulse Ox 97.4 F L 67 20 126/84 98 05/11/17 07:20 05/11/17 07:20 05/11/17 07:20 05/11/17 07:20 05/11/17 07:20 - Medications Medications: Current Medications Acetaminophen (Tylenol 325mg Tab) 650 mg PO Q6 PRN PRN Reason: Pain, Mild (1-3) Last Admin: 03/20/17 08:21 Dose: 650 mg Amantadine HCl (Amantadine 100 Mg Cap) 100 mg PO BID [facility] Last Admin: 05/11/17 09:18 Dose: 100 mg Benzocaine/Menthol (Cepacol Sore Throat) 1 morro PO TID PRN PRN Reason: Sore Throat Last Admin: 05/06/17 18:37 Dose: 1 morro Bethanechol Chloride (Urecholine) 50 mg PO TID [facility] Last Admin: 05/11/17 09:19 Dose: 50 mg Carbidopa/Levodopa (Sinemet Cr) 1 tab PO TID [facility] Last Admin: 05/11/17 09:19 Dose: 1 tab Docusate Sodium (Colace) 100 mg PO BID [facility] Last Admin: 05/11/17 09:18 Dose: 100 mg Famotidine (Pepcid) 40 mg PO HS [facility] Last Admin: 05/10/17 22:20 Dose: 40 mg Fluocinonide (Lidex 0.05% Oint) 1 applic TOP BID [facility] Last Admin: 05/11/17 09:18 Dose: 1 applic Nystatin (Nystop Topical Powder) 1 applic TOP TID [facility] Last Admin: 05/11/17 09:21 Dose: 1 applic Vitamin A (Vitamin A&D) 1 applic TP BID [facility] Last Admin: 05/11/17 09:19 Dose: 1 applic - Labs Labs: 05/02/17 11:35 05/02/17 11:35 PT 11.7 Seconds (9.8-13.1) 03/03/17 10:25 INR 1.1 (0.9-1.2) 03/03/17 10:25 APTT 41.2 Seconds (25.6-37.1) H 03/03/17 10:25 - Respiratory Exam Respiratory Exam: NORMAL BREATHING PATTERN - Cardiovascular Exam Cardiovascular Exam: REGULAR RHYTHM - GI/Abdominal Exam GI & Abdominal Exam: Normal Bowel Sounds Assessment and Plan - Assessment and Plan (Free Text) Assessment: MSA Parkinsons DX Shry Drager Low ext weakness?? Dx progression Disposition?? awaiting transfer to [place] Pt has medical decision making capacity but is financially vulnerable and benefits from legal guardianship Court and Social service involved Pt is [place] S/P Bradycardia Hypotenson chronic A-fib Sepsis ? Autonomic dysfunction? Thrombocytopenia chronic DVT prophylaxis SCD (no Lovenox due to thrombocytopenia) R shoulder pain Dec ROM xrays subluxation Ultram PRN PT Recuurent c-diff Gastroentritis? resolved LGI bleed Thrombocytopenia Decubitus ulcer buttocks Increased frequency urinating UA CS PVR all wnl S/P UTI Enterrococus S/P Urinary retention S/P UTI Proteus
[2017-05-12] MEDS: Carbidopa/Levodopa 50/200 CR PO SCH ×3 (09:32→17:05)
[2017-05-12] MEDS: Vitamin A/D oint 60G TP SCH ×2 (09:32→17:06)
[2017-05-12] MEDS: Bethanechol 50 MG TAB PO SCH ×3 (09:32→17:06)
--- NOTE | 2017-05-12 19:48 | CP.PCM.PN ---
Subjective - Date & Time of Evaluation Date of Evaluation: 05/12/17 Time of Evaluation: 22:22 - Subjective Subjective: c/o excessive medication ! Objective - Vital Signs/Intake and Output Vital Signs (last 24 hours): Temp Pulse Resp BP Pulse Ox 98.3 F 66 18 129/77 94 L 05/12/17 15:55 05/12/17 15:55 05/12/17 15:55 05/12/17 15:55 05/12/17 15:55 - Medications Medications: Current Medications Acetaminophen (Tylenol 325mg Tab) 650 mg PO Q6 PRN PRN Reason: Pain, Mild (1-3) Last Admin: 03/20/17 08:21 Dose: 650 mg Amantadine HCl (Amantadine 100 Mg Cap) 100 mg PO BID [facility] Last Admin: 05/12/17 17:04 Dose: 100 mg Benzocaine/Menthol (Cepacol Sore Throat) 1 morro PO TID PRN PRN Reason: Sore Throat Last Admin: 05/06/17 18:37 Dose: 1 morro Bethanechol Chloride (Urecholine) 50 mg PO TID [facility] Last Admin: 05/12/17 17:06 Dose: 50 mg Carbidopa/Levodopa (Sinemet Cr) 1 tab PO TID [facility] Last Admin: 05/12/17 17:05 Dose: 1 tab Docusate Sodium (Colace) 100 mg PO BID [facility] Last Admin: 05/12/17 17:04 Dose: 100 mg Famotidine (Pepcid) 40 mg PO HS [facility] Last Admin: 05/11/17 21:55 Dose: 40 mg Fluocinonide (Lidex 0.05% Oint) 1 applic TOP BID [facility] Last Admin: 05/12/17 17:05 Dose: 1 applic Nystatin (Nystop Topical Powder) 1 applic TOP TID [facility] Last Admin: 05/12/17 17:08 Dose: 1 applic Vitamin A (Vitamin A&D) 1 applic TP BID [facility] Last Admin: 05/12/17 17:06 Dose: 1 applic - Labs Labs: 05/02/17 11:35 05/02/17 11:35 PT 11.7 Seconds (9.8-13.1) 03/03/17 10:25 INR 1.1 (0.9-1.2) 03/03/17 10:25 APTT 41.2 Seconds (25.6-37.1) H 03/03/17 10:25 - Respiratory Exam Respiratory Exam: NORMAL BREATHING PATTERN - Cardiovascular Exam Cardiovascular Exam: REGULAR RHYTHM - GI/Abdominal Exam GI & Abdominal Exam: Normal Bowel Sounds Assessment and Plan - Assessment and Plan (Free Text) Assessment: MSA Parkinsons DX Shry Drager Low ext weakness?? Dx progression Meds?? reconsult neuro Disposition?? awaiting transfer to [place] Pt has medical decision making capacity but is financially vulnerable and benefits from legal guardianship Court and Social service involved Pt is [place] WW[place] S/P Bradycardia Hypotenson chronic A-fib Sepsis ? Autonomic dysfunction? Thrombocytopenia chronic DVT prophylaxis SCD (no Lovenox due to thrombocytopenia) R shoulder pain Dec ROM xrays subluxation Ultram PRN PT Recuurent c-diff Gastroentritis? resolved LGI bleed Thrombocytopenia Decubitus ulcer buttocks Increased frequency urinating UA CS PVR all wnl S/P UTI Enterrococus S/P Urinary retention S/P UTI Proteus
[2017-05-13] MEDS: Vitamin A/D oint 60G TP SCH ×2 (10:35→17:03)
[2017-05-13] MEDS: Bethanechol 50 MG TAB PO SCH ×3 (10:35→17:02)
[2017-05-13] MEDS: Carbidopa/Levodopa 50/200 CR PO SCH ×3 (10:35→17:04)
--- NOTE | 2017-05-13 20:22 | CP.PCM.PN ---
Subjective - Date & Time of Evaluation Date of Evaluation: 05/13/17 Time of Evaluation: 22:22 - Subjective Subjective: No change Objective - Vital Signs/Intake and Output Vital Signs (last 24 hours): Temp Pulse Resp BP Pulse Ox 97.4 F L 84 20 131/76 95 05/13/17 16:24 05/13/17 16:24 05/13/17 16:24 05/13/17 16:24 05/13/17 16:24 - Medications Medications: Current Medications Acetaminophen (Tylenol 325mg Tab) 650 mg PO Q6 PRN PRN Reason: Pain, Mild (1-3) Last Admin: 03/20/17 08:21 Dose: 650 mg Amantadine HCl (Amantadine 100 Mg Cap) 100 mg PO BID [facility] Last Admin: 05/13/17 17:03 Dose: 100 mg Benzocaine/Menthol (Cepacol Sore Throat) 1 morro PO TID PRN PRN Reason: Sore Throat Last Admin: 05/06/17 18:37 Dose: 1 morro Bethanechol Chloride (Urecholine) 50 mg PO TID [facility] Last Admin: 05/13/17 17:02 Dose: 50 mg Carbidopa/Levodopa (Sinemet Cr) 1 tab PO TID [facility] Last Admin: 05/13/17 17:04 Dose: 1 tab Docusate Sodium (Colace) 100 mg PO BID [facility] Last Admin: 05/13/17 17:03 Dose: 100 mg Famotidine (Pepcid) 40 mg PO HS [facility] Last Admin: 05/12/17 22:09 Dose: 40 mg Fluocinonide (Lidex 0.05% Oint) 1 applic TOP BID [facility] Last Admin: 05/13/17 17:03 Dose: 1 applic Nystatin (Nystop Topical Powder) 1 applic TOP TID [facility] Last Admin: 05/13/17 17:05 Dose: 1 applic Vitamin A (Vitamin A&D) 1 applic TP BID [facility] Last Admin: 05/13/17 17:03 Dose: 1 applic - Labs Labs: 05/02/17 11:35 05/02/17 11:35 PT 11.7 Seconds (9.8-13.1) 03/03/17 10:25 INR 1.1 (0.9-1.2) 03/03/17 10:25 APTT 41.2 Seconds (25.6-37.1) H 03/03/17 10:25 - Respiratory Exam Respiratory Exam: NORMAL BREATHING PATTERN - Cardiovascular Exam Cardiovascular Exam: REGULAR RHYTHM - GI/Abdominal Exam GI & Abdominal Exam: Normal Bowel Sounds Assessment and Plan - Assessment and Plan (Free Text) Assessment: MSA Parkinsons DX Shry Drager Low ext weakness?? Dx progression Meds?? reconsult neuro Disposition?? awaiting transfer to [place] Pt has medical decision making capacity but is financially vulnerable and benefits from legal guardianship Court and Social service involved Pt is [employer] S/P Bradycardia Hypotenson chronic A-fib Sepsis ? Autonomic dysfunction? Thrombocytopenia chronic DVT prophylaxis SCD (no Lovenox due to thrombocytopenia) R shoulder pain Dec ROM xrays subluxation Ultram PRN PT Recuurent c-diff Gastroentritis? resolved LGI bleed Thrombocytopenia Decubitus ulcer buttocks Increased frequency urinating UA CS PVR all wnl S/P UTI Enterrococus S/P Urinary retention S/P UTI Proteus
[2017-05-14] MEDS: Carbidopa/Levodopa 50/200 CR PO SCH ×3 (09:07→16:18)
[2017-05-14] MEDS: Bethanechol 50 MG TAB PO SCH ×3 (09:08→16:18)
[2017-05-14] MEDS: Vitamin A/D oint 60G TP SCH ×2 (09:08→16:18)
--- NOTE | 2017-05-14 17:57 | CP.PCM.PN ---
Subjective - Date & Time of Evaluation Date of Evaluation: 05/14/17 Time of Evaluation: 22:22 - Subjective Subjective: Above noted Objective - Vital Signs/Intake and Output Vital Signs (last 24 hours): Temp Pulse Resp BP Pulse Ox 97.3 F L 73 20 144/76 96 05/14/17 16:05 05/14/17 16:05 05/14/17 16:05 05/14/17 16:05 05/14/17 16:05 - Medications Medications: Current Medications Acetaminophen (Tylenol 325mg Tab) 650 mg PO Q6 PRN PRN Reason: Pain, Mild (1-3) Last Admin: 03/20/17 08:21 Dose: 650 mg Amantadine HCl (Amantadine 100 Mg Cap) 100 mg PO BID [facility] Last Admin: 05/14/17 16:17 Dose: 100 mg Benzocaine/Menthol (Cepacol Sore Throat) 1 morro PO TID PRN PRN Reason: Sore Throat Last Admin: 05/06/17 18:37 Dose: 1 morro Bethanechol Chloride (Urecholine) 50 mg PO TID [facility] Last Admin: 05/14/17 16:18 Dose: 50 mg Carbidopa/Levodopa (Sinemet Cr) 1 tab PO TID [facility] Last Admin: 05/14/17 16:18 Dose: 1 tab Docusate Sodium (Colace) 100 mg PO BID [facility] Last Admin: 05/14/17 16:17 Dose: 100 mg Famotidine (Pepcid) 40 mg PO HS [facility] Last Admin: 05/13/17 21:12 Dose: 40 mg Fluocinonide (Lidex 0.05% Oint) 1 applic TOP BID [facility] Last Admin: 05/14/17 16:18 Dose: 1 applic Nystatin (Nystop Topical Powder) 1 applic TOP TID [facility] Last Admin: 05/14/17 16:19 Dose: 1 applic Vitamin A (Vitamin A&D) 1 applic TP BID [facility] Last Admin: 05/14/17 16:18 Dose: 1 applic - Labs Labs: 05/02/17 11:35 05/02/17 11:35 PT 11.7 Seconds (9.8-13.1) 03/03/17 10:25 INR 1.1 (0.9-1.2) 03/03/17 10:25 APTT 41.2 Seconds (25.6-37.1) H 03/03/17 10:25 - Respiratory Exam Respiratory Exam: NORMAL BREATHING PATTERN - Cardiovascular Exam Cardiovascular Exam: REGULAR RHYTHM - GI/Abdominal Exam GI & Abdominal Exam: Normal Bowel Sounds Assessment and Plan - Assessment and Plan (Free Text) Assessment: MSA Parkinsons DX Shry Drager Low ext weakness?? Dx progression Meds?? reconsult neuro Disposition?? awaiting transfer to [place] Pt has medical decision making capacity but is financially vulnerable and benefits from legal guardianship Court and Social service involved Pt is [place] S/P Bradycardia Hypotenson chronic A-fib Sepsis ? Autonomic dysfunction? Thrombocytopenia chronic DVT prophylaxis SCD (no Lovenox due to thrombocytopenia) R shoulder pain Dec ROM xrays subluxation Ultram PRN PT Recuurent c-diff Gastroentritis? resolved LGI bleed Thrombocytopenia Decubitus ulcer buttocks Increased frequency urinating UA CS PVR all wnl S/P UTI Enterrococus S/P Urinary retention S/P UTI Proteus
[2017-05-15] MEDS: Bethanechol 50 MG TAB PO SCH ×3 (08:37→17:25)
[2017-05-15] MEDS: Vitamin A/D oint 60G TP SCH (08:37)
[2017-05-15] MEDS: Carbidopa/Levodopa 50/200 CR PO SCH ×3 (08:38→17:25)
--- NOTE | 2017-05-15 20:36 | CP.PCM.PN ---
Subjective - Date & Time of Evaluation Date of Evaluation: 05/15/17 Time of Evaluation: 22:22 - Subjective Subjective: Above noted Objective - Vital Signs/Intake and Output Vital Signs (last 24 hours): Temp Pulse Resp BP Pulse Ox 97.8 F 58 L 20 104/57 L 97 05/15/17 16:17 05/15/17 16:17 05/15/17 16:17 05/15/17 16:17 05/15/17 16:17 - Medications Medications: Current Medications Acetaminophen (Tylenol 325mg Tab) 650 mg PO Q6 PRN PRN Reason: Pain, Mild (1-3) Last Admin: 03/20/17 08:21 Dose: 650 mg Amantadine HCl (Amantadine 100 Mg Cap) 100 mg PO BID [facility] Last Admin: 05/15/17 17:25 Dose: 100 mg Benzocaine/Menthol (Cepacol Sore Throat) 1 morro PO TID PRN PRN Reason: Sore Throat Last Admin: 05/06/17 18:37 Dose: 1 morro Bethanechol Chloride (Urecholine) 50 mg PO TID [facility] Last Admin: 05/15/17 17:25 Dose: 50 mg Carbidopa/Levodopa (Sinemet Cr) 1 tab PO TID [facility] Last Admin: 05/15/17 17:25 Dose: 1 tab Docusate Sodium (Colace) 100 mg PO BID [facility] Last Admin: 05/15/17 17:26 Dose: Not Given Famotidine (Pepcid) 40 mg PO HS [facility] Last Admin: 05/14/17 21:18 Dose: 40 mg Fluocinonide (Lidex 0.05% Oint) 1 applic TOP BID [facility] Last Admin: 05/15/17 17:25 Dose: 1 applic Nystatin (Nystop Topical Powder) 1 applic TOP TID [facility] Last Admin: 05/15/17 17:26 Dose: 1 applic - Labs Labs: 05/02/17 11:35 05/02/17 11:35 PT 11.7 Seconds (9.8-13.1) 03/03/17 10:25 INR 1.1 (0.9-1.2) 03/03/17 10:25 APTT 41.2 Seconds (25.6-37.1) H 03/03/17 10:25 - Respiratory Exam Respiratory Exam: NORMAL BREATHING PATTERN - Cardiovascular Exam Cardiovascular Exam: REGULAR RHYTHM - GI/Abdominal Exam GI & Abdominal Exam: Normal Bowel Sounds Assessment and Plan - Assessment and Plan (Free Text) Assessment: MSA Parkinsons DX Shry Drager Low ext weakness?? Dx progression Meds?? reconsult neuro Disposition?? awaiting transfer to [place] Pt has medical decision making capacity but is financially vulnerable and benefits from legal guardianship Court and Social service involved Pt is [place] S/P Bradycardia Hypotenson chronic A-fib Sepsis ? Autonomic dysfunction? Thrombocytopenia chronic DVT prophylaxis SCD (no Lovenox due to thrombocytopenia) R shoulder pain Dec ROM xrays subluxation Ultram PRN PT Recuurent c-diff Gastroentritis? resolved LGI bleed Thrombocytopenia Decubitus ulcer buttocks Increased frequency urinating UA CS PVR all wnl S/P UTI Enterrococus S/P Urinary retention S/P UTI Proteus
[2017-05-16] MEDS: Bethanechol 50 MG TAB PO SCH ×3 (08:27→17:23)
[2017-05-16] MEDS: Carbidopa/Levodopa 50/200 CR PO SCH ×3 (08:28→17:22)
--- NOTE | 2017-05-16 15:47 | CP.PCM.PN ---
Subjective - Date & Time of Evaluation Date of Evaluation: 05/16/17 Time of Evaluation: 22:22 - Subjective Subjective: Above noted Objective - Vital Signs/Intake and Output Vital Signs (last 24 hours): Temp Pulse Resp BP Pulse Ox 98.0 F 78 20 119/70 98 05/16/17 08:00 05/16/17 08:00 05/16/17 08:00 05/16/17 08:00 05/16/17 08:00 - Medications Medications: Current Medications Acetaminophen (Tylenol 325mg Tab) 650 mg PO Q6 PRN PRN Reason: Pain, Mild (1-3) Last Admin: 03/20/17 08:21 Dose: 650 mg Amantadine HCl (Amantadine 100 Mg Cap) 100 mg PO BID [facility] Last Admin: 05/16/17 08:27 Dose: 100 mg Benzocaine/Menthol (Cepacol Sore Throat) 1 morro PO TID PRN PRN Reason: Sore Throat Last Admin: 05/06/17 18:37 Dose: 1 morro Bethanechol Chloride (Urecholine) 50 mg PO TID [facility] Last Admin: 05/16/17 12:42 Dose: 50 mg Carbidopa/Levodopa (Sinemet Cr) 1 tab PO TID [facility] Last Admin: 05/16/17 12:43 Dose: 1 tab Docusate Sodium (Colace) 100 mg PO BID [facility] Last Admin: 05/16/17 08:28 Dose: 100 mg Famotidine (Pepcid) 40 mg PO HS [facility] Last Admin: 05/15/17 21:42 Dose: 40 mg Fluocinonide (Lidex 0.05% Oint) 1 applic TOP BID [facility] Last Admin: 05/16/17 08:28 Dose: 1 applic Nystatin (Nystop Topical Powder) 1 applic TOP TID [facility] Last Admin: 05/16/17 12:43 Dose: 1 applic - Labs Labs: 05/02/17 11:35 05/02/17 11:35 PT 11.7 Seconds (9.8-13.1) 03/03/17 10:25 INR 1.1 (0.9-1.2) 03/03/17 10:25 APTT 41.2 Seconds (25.6-37.1) H 03/03/17 10:25 - Respiratory Exam Respiratory Exam: NORMAL BREATHING PATTERN - Cardiovascular Exam Cardiovascular Exam: REGULAR RHYTHM - GI/Abdominal Exam GI & Abdominal Exam: Normal Bowel Sounds Assessment and Plan - Assessment and Plan (Free Text) Assessment: MSA Parkinsons DX Shry Drager Low ext weakness?? Dx progression Meds?? reconsult neuro Disposition?? [place] Pt has medical decision making capacity but is financially vulnerable and benefits from legal guardianship Court and Social service involved Pt is [place] S/P Bradycardia Hypotenson chronic A-fib Sepsis ? Autonomic dysfunction? Thrombocytopenia chronic DVT prophylaxis SCD (no Lovenox due to thrombocytopenia) R shoulder pain Dec ROM xrays subluxation Ultram PRN PT Recuurent c-diff Gastroentritis? resolved LGI bleed Thrombocytopenia Decubitus ulcer buttocks Increased frequency urinating UA CS PVR all wnl S/P UTI Enterrococus S/P Urinary retention S/P UTI Proteus
[2017-05-17] MEDS: Carbidopa/Levodopa 50/200 CR PO SCH ×3 (08:37→16:29)
[2017-05-17] MEDS: Bethanechol 50 MG TAB PO SCH ×3 (08:37→16:29)
--- NOTE | 2017-05-17 22:40 | CP.PCM.PN ---
Subjective - Date & Time of Evaluation Date of Evaluation: 05/17/17 Time of Evaluation: 22:22 - Subjective Subjective: Above noted Objective - Vital Signs/Intake and Output Vital Signs (last 24 hours): Temp Pulse Resp BP Pulse Ox 97.5 F L 104 H 20 105/59 L 98 05/17/17 16:23 05/17/17 16:23 05/17/17 16:23 05/17/17 16:23 05/17/17 16:23 - Medications Medications: Current Medications Acetaminophen (Tylenol 325mg Tab) 650 mg PO Q6 PRN PRN Reason: Pain, Mild (1-3) Last Admin: 03/20/17 08:21 Dose: 650 mg Amantadine HCl (Amantadine 100 Mg Cap) 100 mg PO BID [facility] Last Admin: 05/17/17 16:28 Dose: 100 mg Benzocaine/Menthol (Cepacol Sore Throat) 1 morro PO TID PRN PRN Reason: Sore Throat Last Admin: 05/06/17 18:37 Dose: 1 morro Bethanechol Chloride (Urecholine) 50 mg PO TID [facility] Last Admin: 05/17/17 16:29 Dose: 50 mg Carbidopa/Levodopa (Sinemet Cr) 1 tab PO TID [facility] Last Admin: 05/17/17 16:29 Dose: 1 tab Docusate Sodium (Colace) 100 mg PO BID [facility] Last Admin: 05/17/17 16:28 Dose: 100 mg Famotidine (Pepcid) 40 mg PO HS [facility] Last Admin: 05/17/17 21:31 Dose: 40 mg Fluocinonide (Lidex 0.05% Oint) 1 applic TOP BID [facility] Last Admin: 05/17/17 16:29 Dose: 1 applic Nystatin (Nystop Topical Powder) 1 applic TOP TID [facility] Last Admin: 05/17/17 16:29 Dose: 1 applic - Labs Labs: 05/02/17 11:35 05/02/17 11:35 PT 11.7 Seconds (9.8-13.1) 03/03/17 10:25 INR 1.1 (0.9-1.2) 03/03/17 10:25 APTT 41.2 Seconds (25.6-37.1) H 03/03/17 10:25 - Respiratory Exam Respiratory Exam: NORMAL BREATHING PATTERN - Cardiovascular Exam Cardiovascular Exam: REGULAR RHYTHM - GI/Abdominal Exam GI & Abdominal Exam: Normal Bowel Sounds Assessment and Plan - Assessment and Plan (Free Text) Assessment: MSA Parkinsons DX Shry Drager Low ext weakness?? Dx progression Meds?? reconsult neuro Disposition?? awaiting transfer to [place] Pt has medical decision making capacity but is financially vulnerable and benefits from legal guardianship Court and Social service involved Pt is [place] S/P Bradycardia Hypotenson chronic A-fib Sepsis ? Autonomic dysfunction? Thrombocytopenia chronic DVT prophylaxis SCD (no Lovenox due to thrombocytopenia) R shoulder pain Dec ROM xrays subluxation Ultram PRN PT Recuurent c-diff Gastroentritis? resolved LGI bleed Thrombocytopenia Decubitus ulcer buttocks Increased frequency urinating UA CS PVR all wnl S/P UTI Enterrococus S/P Urinary retention S/P UTI Proteus
[2017-05-18] MEDS: Artificial Tears Opht Soln OU PRN ×2 (02:30→09:59)
[2017-05-18 07:04] LABS: BASO # 0.1 K/uL (0.0-0.2); EOS # 0.7 K/uL (0.0-0.7); EOS % 12.6 % (0.0-4.0); HEMOGLOBIN 13.5 g/dL (12.0-18.0); LYMPH # 1.6 K/uL (1.0-4.3); LYMPH % 28.1 % (20.0-40.0); MEAN CELL VOLUME 94.9 fl (80.0-94.0); MEAN CORPUSCULAR HEMOGLOBIN 31.6 pg (27.0-31.0); MEAN CORPUSCULAR HGB CONC 33.3 g/dL (33.0-37.0); MONO # 0.4 K/uL (0.0-0.8); MONO % 7.1 % (0.0-10.0); NEUT # 2.9 K/uL (1.8-7.0); NEUT % 51.2 % (50.0-75.0); RBC 4.28 Mil/uL (4.40-5.90); RED CELL DISTRIBUTION WIDTH 13.5 % (11.5-14.5); WHITE BLOOD COUNT 5.7 K/uL (4.8-10.8)
[2017-05-18 07:09] LABS: INR 1.1 (0.9-1.2); PARTIAL THROMBOPLASTIN TIME 34.9 Seconds (25.6-37.1); PROTHROMBIN TIME 12.6 Seconds (9.8-13.1)
[2017-05-18 07:12] LABS: BLOOD UREA NITROGEN 21 mg/dl (9-20); CALCIUM 9.1 mg/dL (8.4-10.2); GFR AFRICAN-AMERICAN > 60; GFR NON-AFRICAN AMERICAN > 60
[2017-05-18] MEDS: Bethanechol 50 MG TAB PO SCH ×3 (09:59→17:58)
[2017-05-18] MEDS: Carbidopa/Levodopa 50/200 CR PO SCH ×3 (10:00→17:57)
--- NOTE | 2017-05-18 21:06 | CP.PCM.PN ---
Subjective - Date & Time of Evaluation Date of Evaluation: 05/18/17 Time of Evaluation: 22:22 - Subjective Subjective: Above noted Objective - Vital Signs/Intake and Output Vital Signs (last 24 hours): Temp Pulse Resp BP Pulse Ox 97.8 F 63 20 151/88 H 99 05/18/17 17:35 05/18/17 17:35 05/18/17 17:35 05/18/17 17:35 05/18/17 17:35 - Medications Medications: Current Medications Acetaminophen (Tylenol 325mg Tab) 650 mg PO Q6 PRN PRN Reason: Pain, Mild (1-3) Last Admin: 03/20/17 08:21 Dose: 650 mg Amantadine HCl (Amantadine 100 Mg Cap) 100 mg PO BID [facility] Last Admin: 05/18/17 17:58 Dose: 100 mg Artificial Tears (Artificial Tears) 2 drop OU Q4 PRN PRN Reason: Dry eyes Last Admin: 05/18/17 09:59 Dose: 2 drop Benzocaine/Menthol (Cepacol Sore Throat) 1 morro PO TID PRN PRN Reason: Sore Throat Last Admin: 05/06/17 18:37 Dose: 1 morro Bethanechol Chloride (Urecholine) 50 mg PO TID [facility] Last Admin: 05/18/17 17:58 Dose: 50 mg Carbidopa/Levodopa (Sinemet Cr) 1 tab PO TID [facility] Last Admin: 05/18/17 17:57 Dose: 1 tab Docusate Sodium (Colace) 100 mg PO BID [facility] Last Admin: 05/18/17 17:57 Dose: 100 mg Famotidine (Pepcid) 40 mg PO HS [facility] Last Admin: 05/17/17 21:31 Dose: 40 mg Fluocinonide (Lidex 0.05% Oint) 1 applic TOP BID [facility] Last Admin: 05/18/17 17:58 Dose: 1 applic Nystatin (Nystop Topical Powder) 1 applic TOP TID [facility] Last Admin: 05/18/17 17:58 Dose: 1 applic - Labs Labs: 05/18/17 05:30 05/18/17 05:30 PT 12.6 Seconds (9.8-13.1) 05/18/17 05:30 INR 1.1 (0.9-1.2) 11/05/17 05:30 APTT 34.9 Seconds (25.6-37.1) 05/18/17 05:30 - Respiratory Exam Respiratory Exam: NORMAL BREATHING PATTERN - Cardiovascular Exam Cardiovascular Exam: REGULAR RHYTHM - GI/Abdominal Exam GI & Abdominal Exam: Normal Bowel Sounds Assessment and Plan - Assessment and Plan (Free Text) Assessment: MSA Parkinsons DX Shry Drager Low ext weakness?? Dx progression Fatigue -Meds?? reconsult neuro Disposition?? [place] Pt has medical decision making capacity but is financially vulnerable and benefits from legal guardianship Court and Social service involved Pt is [place] S/P Bradycardia Hypotenson chronic A-fib Sepsis ? Autonomic dysfunction? Thrombocytopenia chronic DVT prophylaxis SCD (no Lovenox due to thrombocytopenia) R shoulder pain Dec ROM xrays subluxation Ultram PRN PT Recuurent c-diff Gastroentritis? resolved LGI bleed Thrombocytopenia Decubitus ulcer buttocks Increased frequency urinating UA CS PVR all wnl S/P UTI Enterrococus S/P Urinary retention S/P UTI Proteus
[2017-05-19] MEDS: Artificial Tears Opht Soln OU PRN ×2 (08:29→17:02)
[2017-05-19] MEDS: Bethanechol 50 MG TAB PO SCH ×3 (08:31→17:02)
[2017-05-19] MEDS: Carbidopa/Levodopa 50/200 CR PO SCH ×3 (08:31→17:02)
[2017-05-19] MEDS: Benzocaine/Menthol (Cepacol) Lozenge PO PRN (08:35)
--- NOTE | 2017-05-19 20:36 | CP.PCM.PN ---
Subjective - Date & Time of Evaluation Date of Evaluation: 05/19/17 Time of Evaluation: 22:22 - Subjective Subjective: Above noted Objective - Vital Signs/Intake and Output Vital Signs (last 24 hours): Temp Pulse Resp BP Pulse Ox 97.4 F L 61 20 108/62 98 05/19/17 16:08 05/19/17 16:08 05/19/17 16:08 05/19/17 16:08 05/19/17 16:08 - Medications Medications: Current Medications Acetaminophen (Tylenol 325mg Tab) 650 mg PO Q6 PRN PRN Reason: Pain, Mild (1-3) Last Admin: 03/20/17 08:21 Dose: 650 mg Amantadine HCl (Amantadine 100 Mg Cap) 100 mg PO BID [facility] Last Admin: 05/19/17 17:00 Dose: 100 mg Artificial Tears (Artificial Tears) 2 drop OU Q4 PRN PRN Reason: Dry eyes Last Admin: 05/19/17 17:02 Dose: 2 drop Benzocaine/Menthol (Cepacol Sore Throat) 1 morro PO TID PRN PRN Reason: Sore Throat Last Admin: 05/19/17 08:35 Dose: 1 morro Bethanechol Chloride (Urecholine) 50 mg PO TID [facility] Last Admin: 05/19/17 17:02 Dose: 50 mg Carbidopa/Levodopa (Sinemet Cr) 1 tab PO TID [facility] Last Admin: 05/19/17 17:02 Dose: 1 tab Docusate Sodium (Colace) 100 mg PO BID [facility] Last Admin: 05/19/17 17:01 Dose: 100 mg Famotidine (Pepcid) 40 mg PO HS [facility] Last Admin: 05/18/17 22:30 Dose: 40 mg Fluocinonide (Lidex 0.05% Oint) 1 applic TOP BID [facility] Last Admin: 05/19/17 17:01 Dose: 1 applic Nystatin (Nystop Topical Powder) 1 applic TOP TID [facility] Last Admin: 05/19/17 17:01 Dose: 1 applic - Labs Labs: 05/18/17 05:30 05/18/17 05:30 PT 12.6 Seconds (9.8-13.1) 05/18/17 05:30 INR 1.1 (0.9-1.2) 11/05/17 05:30 APTT 34.9 Seconds (25.6-37.1) 05/18/17 05:30 - Respiratory Exam Respiratory Exam: NORMAL BREATHING PATTERN - Cardiovascular Exam Cardiovascular Exam: REGULAR RHYTHM - GI/Abdominal Exam GI & Abdominal Exam: Normal Bowel Sounds Assessment and Plan - Assessment and Plan (Free Text) Assessment: MSA Parkinsons DX Shry Drager Low ext weakness?? Dx progression Fatigue -Meds?? reconsult neuro Disposition?? awaiting transfer to [place] Pt has medical decision making capacity but is financially vulnerable and benefits from legal guardianship Court and Social service involved Pt is [place] S/P Bradycardia Hypotenson chronic A-fib Sepsis ? Autonomic dysfunction? Thrombocytopenia chronic DVT prophylaxis SCD (no Lovenox due to thrombocytopenia) R shoulder pain Dec ROM xrays subluxation Ultram PRN PT Recuurent c-diff Gastroentritis? resolved LGI bleed Thrombocytopenia Decubitus ulcer buttocks Increased frequency urinating UA CS PVR all wnl S/P UTI Enterrococus S/P Urinary retention S/P UTI Proteus
[2017-05-20] MEDS: Carbidopa/Levodopa 50/200 CR PO SCH ×3 (09:59→17:01)
[2017-05-20] MEDS: Bethanechol 50 MG TAB PO SCH ×3 (09:59→17:01)
[2017-05-20] MEDS: Artificial Tears Opht Soln OU PRN (10:00)
--- NOTE | 2017-05-20 19:50 | CP.PCM.PN ---
Subjective - Date & Time of Evaluation Date of Evaluation: 05/20/17 Time of Evaluation: 22:22 - Subjective Subjective: Above noted Objective - Vital Signs/Intake and Output Vital Signs (last 24 hours): Temp Pulse Resp BP Pulse Ox 97.9 F 62 20 121/64 100 05/20/17 16:50 05/20/17 16:50 05/20/17 16:50 05/20/17 16:50 05/20/17 16:50 - Medications Medications: Current Medications Acetaminophen (Tylenol 325mg Tab) 650 mg PO Q6 PRN PRN Reason: Pain, Mild (1-3) Last Admin: 03/20/17 08:21 Dose: 650 mg Amantadine HCl (Amantadine 100 Mg Cap) 100 mg PO BID [facility] Last Admin: 05/20/17 17:01 Dose: 100 mg Artificial Tears (Artificial Tears) 2 drop OU Q4 PRN PRN Reason: Dry eyes Last Admin: 05/20/17 10:00 Dose: 2 drop Benzocaine/Menthol (Cepacol Sore Throat) 1 morro PO TID PRN PRN Reason: Sore Throat Last Admin: 05/19/17 08:35 Dose: 1 morro Bethanechol Chloride (Urecholine) 50 mg PO TID [facility] Last Admin: 05/20/17 17:01 Dose: 50 mg Carbidopa/Levodopa (Sinemet Cr) 1 tab PO TID [facility] Last Admin: 05/20/17 17:01 Dose: 1 tab Docusate Sodium (Colace) 100 mg PO BID [facility] Last Admin: 05/20/17 17:01 Dose: 100 mg Famotidine (Pepcid) 40 mg PO HS [facility] Last Admin: 05/19/17 21:23 Dose: 40 mg Fluocinonide (Lidex 0.05% Oint) 1 applic TOP BID [facility] Last Admin: 05/20/17 17:01 Dose: 1 applic Nystatin (Nystop Topical Powder) 1 applic TOP TID [facility] Last Admin: 05/20/17 17:02 Dose: 1 applic - Labs Labs: 05/18/17 05:30 05/18/17 05:30 PT 12.6 Seconds (9.8-13.1) 05/18/17 05:30 INR 1.1 (0.9-1.2) 05/18/17 05:30 APTT 34.9 Seconds (25.6-37.1) 05/18/17 05:30 - Respiratory Exam Respiratory Exam: NORMAL BREATHING PATTERN - Cardiovascular Exam Cardiovascular Exam: REGULAR RHYTHM - GI/Abdominal Exam GI & Abdominal Exam: Normal Bowel Sounds Assessment and Plan - Assessment and Plan (Free Text) Assessment: MSA Parkinsons DX Shry Drager Low ext weakness?? Dx progression Fatigue -Meds?? reconsult neuro Disposition?? [place] Pt has medical decision making capacity but is financially vulnerable and benefits from legal guardianship Court and Social service involved Pt is [place] S/P Bradycardia Hypotenson chronic A-fib Sepsis ? Autonomic dysfunction? Thrombocytopenia chronic DVT prophylaxis SCD (no Lovenox due to thrombocytopenia) R shoulder pain Dec ROM xrays subluxation Ultram PRN PT Recuurent c-diff Gastroentritis? resolved LGI bleed Thrombocytopenia Decubitus ulcer buttocks Increased frequency urinating UA CS PVR all wnl S/P UTI Enterrococus S/P Urinary retention S/P UTI Proteus
[2017-05-21] MEDS: Bethanechol 50 MG TAB PO SCH ×3 (09:52→17:04)
[2017-05-21] MEDS: Carbidopa/Levodopa 50/200 CR PO SCH ×3 (10:41→17:03)
[2017-05-21] MEDS: Artificial Tears Opht Soln OU PRN ×2 (12:00→17:08)
--- NOTE | 2017-05-21 18:25 | CP.PCM.PN ---
Subjective - Date & Time of Evaluation Date of Evaluation: 05/21/17 Time of Evaluation: 22:22 - Subjective Subjective: Above noted Objective - Vital Signs/Intake and Output Vital Signs (last 24 hours): Temp Pulse Resp BP Pulse Ox 97.5 F L 66 19 108/58 L 99 05/21/17 16:30 05/21/17 16:30 05/21/17 16:30 05/21/17 16:30 05/21/17 16:30 - Medications Medications: Current Medications Acetaminophen (Tylenol 325mg Tab) 650 mg PO Q6 PRN PRN Reason: Pain, Mild (1-3) Last Admin: 03/20/17 08:21 Dose: 650 mg Amantadine HCl (Amantadine 100 Mg Cap) 100 mg PO BID [facility] Last Admin: 05/21/17 17:05 Dose: 100 mg Artificial Tears (Artificial Tears) 2 drop OU Q4 PRN PRN Reason: Dry eyes Last Admin: 05/21/17 17:08 Dose: 2 drop Benzocaine/Menthol (Cepacol Sore Throat) 1 morro PO TID PRN PRN Reason: Sore Throat Last Admin: 05/19/17 08:35 Dose: 1 morro Bethanechol Chloride (Urecholine) 50 mg PO TID [facility] Last Admin: 05/21/17 17:04 Dose: 50 mg Carbidopa/Levodopa (Sinemet Cr) 1 tab PO TID [facility] Last Admin: 05/21/17 17:03 Dose: 1 tab Docusate Sodium (Colace) 100 mg PO BID [facility] Last Admin: 05/21/17 17:03 Dose: 100 mg Famotidine (Pepcid) 40 mg PO HS [facility] Last Admin: 05/20/17 22:46 Dose: 40 mg Fluocinonide (Lidex 0.05% Oint) 1 applic TOP BID [facility] Last Admin: 05/21/17 17:04 Dose: 1 applic Nystatin (Nystop Topical Powder) 1 applic TOP TID [facility] Last Admin: 05/21/17 17:03 Dose: 1 applic - Labs Labs: 05/18/17 05:30 05/18/17 05:30 PT 12.6 Seconds (9.8-13.1) 05/18/17 05:30 INR 1.1 (0.9-1.2) 05/18/17 05:30 APTT 34.9 Seconds (25.6-37.1) 05/18/17 05:30 - Respiratory Exam Respiratory Exam: NORMAL BREATHING PATTERN - Cardiovascular Exam Cardiovascular Exam: REGULAR RHYTHM - GI/Abdominal Exam GI & Abdominal Exam: Normal Bowel Sounds Assessment and Plan - Assessment and Plan (Free Text) Assessment: MSA Parkinsons DX Shry Drager Low ext weakness?? Dx progression Fatigue -Meds?? reconsult neuro Disposition?? awaiting transfer to [place] Pt has medical decision making capacity but is financially vulnerable and benefits from legal guardianship Court and Social service involved Pt is [place] S/P Bradycardia Hypotenson chronic A-fib Sepsis ? Autonomic dysfunction? Thrombocytopenia chronic DVT prophylaxis SCD (no Lovenox due to thrombocytopenia) R shoulder pain Dec ROM xrays subluxation Ultram PRN PT Recuurent c-diff Gastroentritis? resolved LGI bleed Thrombocytopenia Decubitus ulcer buttocks Increased frequency urinating UA CS PVR all wnl S/P UTI Enterrococus S/P Urinary retention S/P UTI Proteus
[2017-05-22] MEDS: Bethanechol 50 MG TAB PO SCH ×3 (10:06→16:20)
[2017-05-22] MEDS: Carbidopa/Levodopa 50/200 CR PO SCH ×3 (10:10→16:21)
--- NOTE | 2017-05-22 20:15 | CP.PCM.PN ---
Subjective - Date & Time of Evaluation Date of Evaluation: 05/22/17 Time of Evaluation: 22:22 - Subjective Subjective: Above noted Objective - Vital Signs/Intake and Output Vital Signs (last 24 hours): Temp Pulse Resp BP Pulse Ox 98.1 F 78 20 128/88 98 05/22/17 08:22 05/22/17 08:22 05/22/17 08:22 05/22/17 08:22 05/22/17 08:22 - Medications Medications: Current Medications Acetaminophen (Tylenol 325mg Tab) 650 mg PO Q6 PRN PRN Reason: Pain, Mild (1-3) Last Admin: 03/20/17 08:21 Dose: 650 mg Amantadine HCl (Amantadine 100 Mg Cap) 100 mg PO BID [facility] Last Admin: 05/22/17 16:23 Dose: 100 mg Artificial Tears (Artificial Tears) 2 drop OU Q4 PRN PRN Reason: Dry eyes Last Admin: 05/21/17 17:08 Dose: 2 drop Benzocaine/Menthol (Cepacol Sore Throat) 1 morro PO TID PRN PRN Reason: Sore Throat Last Admin: 05/19/17 08:35 Dose: 1 morro Bethanechol Chloride (Urecholine) 50 mg PO TID [facility] Last Admin: 05/22/17 16:20 Dose: 50 mg Carbidopa/Levodopa (Sinemet Cr) 1 tab PO TID [facility] Last Admin: 05/22/17 16:21 Dose: 1 tab Docusate Sodium (Colace) 100 mg PO BID [facility] Last Admin: 05/22/17 16:23 Dose: 100 mg Famotidine (Pepcid) 40 mg PO HS [facility] Last Admin: 05/21/17 23:05 Dose: 40 mg Fluocinonide (Lidex 0.05% Oint) 1 applic TOP BID [facility] Last Admin: 05/22/17 16:23 Dose: 1 applic Nystatin (Nystop Topical Powder) 1 applic TOP TID [facility] Last Admin: 05/22/17 16:22 Dose: 1 applic - Labs Labs: 05/18/17 05:30 05/18/17 05:30 PT 12.6 Seconds (9.8-13.1) 05/18/17 05:30 INR 1.1 (0.9-1.2) 05/18/17 05:30 APTT 34.9 Seconds (25.6-37.1) 05/18/17 05:30 - Respiratory Exam Respiratory Exam: NORMAL BREATHING PATTERN - Cardiovascular Exam Cardiovascular Exam: REGULAR RHYTHM - GI/Abdominal Exam GI & Abdominal Exam: Normal Bowel Sounds Assessment and Plan - Assessment and Plan (Free Text) Assessment: MSA Parkinsons DX Shry Drager Low ext weakness?? Dx progression Fatigue -Meds?? reconsult neuro Disposition?? awaiting transfer to [place] Pt has medical decision making capacity but is financially vulnerable and benefits from legal guardianship Court and Social service involved Pt is [place] S/P Bradycardia Hypotenson chronic A-fib Sepsis ? Autonomic dysfunction? Thrombocytopenia chronic DVT prophylaxis SCD (no Lovenox due to thrombocytopenia) R shoulder pain Dec ROM xrays subluxation Ultram PRN PT Recuurent c-diff Gastroentritis? resolved LGI bleed Thrombocytopenia Decubitus ulcer buttocks Increased frequency urinating UA CS PVR all wnl S/P UTI Enterrococus S/P Urinary retention S/P UTI Proteus
[2017-05-23] MEDS: Bethanechol 50 MG TAB PO SCH ×3 (09:06→16:52)
[2017-05-23] MEDS: Carbidopa/Levodopa 50/200 CR PO SCH ×3 (09:06→16:52)
--- NOTE | 2017-05-23 17:54 | CP.PCM.PN ---
Subjective - Date & Time of Evaluation Date of Evaluation: 05/23/17 Time of Evaluation: 22:22 - Subjective Subjective: Above noted Objective - Vital Signs/Intake and Output Vital Signs (last 24 hours): Temp Pulse Resp BP Pulse Ox 97.7 F 63 20 109/69 98 05/23/17 16:51 05/23/17 16:51 05/23/17 16:51 05/23/17 16:51 05/23/17 16:51 - Medications Medications: Current Medications Acetaminophen (Tylenol 325mg Tab) 650 mg PO Q6 PRN PRN Reason: Pain, Mild (1-3) Last Admin: 03/20/17 08:21 Dose: 650 mg Amantadine HCl (Amantadine 100 Mg Cap) 100 mg PO BID [facility] Last Admin: 05/23/17 16:52 Dose: 100 mg Artificial Tears (Artificial Tears) 2 drop OU Q4 PRN PRN Reason: Dry eyes Last Admin: 05/21/17 17:08 Dose: 2 drop Benzocaine/Menthol (Cepacol Sore Throat) 1 morro PO TID PRN PRN Reason: Sore Throat Last Admin: 05/19/17 08:35 Dose: 1 morro Bethanechol Chloride (Urecholine) 50 mg PO TID [facility] Last Admin: 05/23/17 16:52 Dose: 50 mg Carbidopa/Levodopa (Sinemet Cr) 1 tab PO TID [facility] Last Admin: 05/23/17 16:52 Dose: 1 tab Docusate Sodium (Colace) 100 mg PO BID [facility] Last Admin: 05/23/17 16:53 Dose: 100 mg Famotidine (Pepcid) 40 mg PO HS [facility] Last Admin: 05/22/17 22:08 Dose: 40 mg Fluocinonide (Lidex 0.05% Oint) 1 applic TOP BID [facility] Last Admin: 05/23/17 16:53 Dose: 1 applic Nystatin (Nystop Topical Powder) 1 applic TOP TID [facility] Last Admin: 05/23/17 16:53 Dose: 1 applic - Labs Labs: 05/18/17 05:30 05/18/17 05:30 PT 12.6 Seconds (9.8-13.1) 05/18/17 05:30 INR 1.1 (0.9-1.2) 05/18/17 05:30 APTT 34.9 Seconds (25.6-37.1) 05/18/17 05:30 - Respiratory Exam Respiratory Exam: Wheezes, NORMAL BREATHING PATTERN - Cardiovascular Exam Cardiovascular Exam: REGULAR RHYTHM - GI/Abdominal Exam GI & Abdominal Exam: Normal Bowel Sounds Assessment and Plan - Assessment and Plan (Free Text) Assessment: MSA Parkinsons DX Shry Drager Low ext weakness?? Dx progression Fatigue -Meds?? reconsult neuro Disposition?? awaiting transfer to [place] Pt has medical decision making capacity but is financially vulnerable and benefits from legal guardianship Court and Social service involved Pt is [place] S/P Bradycardia Hypotenson chronic A-fib Sepsis ? Autonomic dysfunction? Thrombocytopenia chronic DVT prophylaxis SCD (no Lovenox due to thrombocytopenia) R shoulder pain Dec ROM xrays subluxation Ultram PRN PT Recuurent c-diff Gastroentritis? resolved LGI bleed Thrombocytopenia Decubitus ulcer buttocks Increased frequency urinating UA CS PVR all wnl S/P UTI Enterrococus S/P Urinary retention S/P UTI Proteus
[2017-05-23] MEDS: Artificial Tears Opht Soln OU PRN (21:54)
[2017-05-24] MEDS: Carbidopa/Levodopa 50/200 CR PO SCH ×3 (10:54→17:49)
[2017-05-24] MEDS: Bethanechol 50 MG TAB PO SCH ×3 (10:54→17:49)
--- NOTE | 2017-05-24 23:50 | CP.PCM.PN ---
Subjective - Date & Time of Evaluation Date of Evaluation: 05/24/17 Time of Evaluation: 22:22 - Subjective Subjective: Above noted Objective - Vital Signs/Intake and Output Vital Signs (last 24 hours): Temp Pulse Resp BP Pulse Ox 98.2 F 72 20 123/75 95 05/24/17 16:18 05/24/17 16:18 05/24/17 16:18 05/24/17 16:18 05/24/17 16:18 - Medications Medications: Current Medications Acetaminophen (Tylenol 325mg Tab) 650 mg PO Q6 PRN PRN Reason: Pain, Mild (1-3) Last Admin: 03/20/17 08:21 Dose: 650 mg Amantadine HCl (Amantadine 100 Mg Cap) 100 mg PO BID [facility] Last Admin: 05/24/17 17:47 Dose: 100 mg Artificial Tears (Artificial Tears) 2 drop OU Q4 PRN PRN Reason: Dry eyes Last Admin: 05/23/17 21:54 Dose: 2 drop Benzocaine/Menthol (Cepacol Sore Throat) 1 morro PO TID PRN PRN Reason: Sore Throat Last Admin: 05/19/17 08:35 Dose: 1 morro Bethanechol Chloride (Urecholine) 50 mg PO TID [facility] Last Admin: 05/24/17 17:49 Dose: 50 mg Carbidopa/Levodopa (Sinemet Cr) 1 tab PO TID [facility] Last Admin: 05/24/17 17:49 Dose: 1 tab Docusate Sodium (Colace) 100 mg PO BID [facility] Last Admin: 05/24/17 17:47 Dose: 100 mg Famotidine (Pepcid) 40 mg PO HS [facility] Last Admin: 05/24/17 21:45 Dose: 40 mg Fluocinonide (Lidex 0.05% Oint) 1 applic TOP BID [facility] Last Admin: 05/24/17 17:47 Dose: 1 applic Nystatin (Nystop Topical Powder) 1 applic TOP TID [facility] Last Admin: 05/24/17 17:48 Dose: 1 applic - Labs Labs: 05/18/17 05:30 05/18/17 05:30 PT 12.6 Seconds (9.8-13.1) 05/18/17 05:30 INR 1.1 (0.9-1.2) 05/18/17 05:30 APTT 34.9 Seconds (25.6-37.1) 05/18/17 05:30 - Respiratory Exam Respiratory Exam: NORMAL BREATHING PATTERN - Cardiovascular Exam Cardiovascular Exam: REGULAR RHYTHM - GI/Abdominal Exam GI & Abdominal Exam: Normal Bowel Sounds Assessment and Plan - Assessment and Plan (Free Text) Assessment: MSA Parkinsons DX Shry Drager Low ext weakness?? Dx progression Fatigue -Meds?? reconsult neuro Disposition?? awaiting transfer to [place] Pt has medical decision making capacity but is financially vulnerable and benefits from legal guardianship Court and Social service involved Pt is [place] WW[place] S/P Bradycardia Hypotenson chronic A-fib Sepsis ? Autonomic dysfunction? Thrombocytopenia chronic DVT prophylaxis SCD (no Lovenox due to thrombocytopenia) R shoulder pain Dec ROM xrays subluxation Ultram PRN PT Recuurent c-diff Gastroentritis? resolved LGI bleed Thrombocytopenia Decubitus ulcer buttocks Increased frequency urinating UA CS PVR all wnl S/P UTI Enterrococus S/P Urinary retention S/P UTI Proteus
[2017-05-25] MEDS: Bethanechol 50 MG TAB PO SCH ×3 (08:46→18:42)
[2017-05-25] MEDS: Carbidopa/Levodopa 50/200 CR PO SCH ×3 (08:47→18:41)
[2017-05-26] MEDS: Carbidopa/Levodopa 50/200 CR PO SCH ×3 (09:14→17:37)
[2017-05-26] MEDS: Bethanechol 50 MG TAB PO SCH ×3 (09:15→17:37)
--- NOTE | 2017-05-26 17:02 | CP.PCM.PN ---
Subjective - Date & Time of Evaluation Date of Evaluation: 05/26/17 Time of Evaluation: 22:22 - Subjective Subjective: Above noted Objective - Vital Signs/Intake and Output Vital Signs (last 24 hours): Temp Pulse Resp BP Pulse Ox 97.7 F 70 18 92/49 L 98 05/26/17 16:36 05/26/17 16:36 05/26/17 16:36 05/26/17 16:36 05/26/17 16:36 - Medications Medications: Current Medications Acetaminophen (Tylenol 325mg Tab) 650 mg PO Q6 PRN PRN Reason: Pain, Mild (1-3) Last Admin: 03/20/17 08:21 Dose: 650 mg Amantadine HCl (Amantadine 100 Mg Cap) 100 mg PO BID [facility] Last Admin: 05/26/17 09:14 Dose: 100 mg Artificial Tears (Artificial Tears) 2 drop OU Q4 PRN PRN Reason: Dry eyes Last Admin: 05/23/17 21:54 Dose: 2 drop Benzocaine/Menthol (Cepacol Sore Throat) 1 morro PO TID PRN PRN Reason: Sore Throat Last Admin: 05/19/17 08:35 Dose: 1 morro Bethanechol Chloride (Urecholine) 50 mg PO TID [facility] Last Admin: 05/26/17 13:05 Dose: 50 mg Carbidopa/Levodopa (Sinemet Cr) 1 tab PO TID [facility] Last Admin: 05/26/17 13:05 Dose: 1 tab Docusate Sodium (Colace) 100 mg PO BID [facility] Last Admin: 05/26/17 09:15 Dose: 100 mg Famotidine (Pepcid) 40 mg PO HS [facility] Last Admin: 05/25/17 21:41 Dose: 40 mg Fluocinonide (Lidex 0.05% Oint) 1 applic TOP BID [facility] Last Admin: 05/26/17 09:16 Dose: 1 applic Nystatin (Nystop Topical Powder) 1 applic TOP TID [facility] Last Admin: 05/26/17 13:05 Dose: 1 applic - Labs Labs: 05/18/17 05:30 05/18/17 05:30 PT 12.6 Seconds (9.8-13.1) 05/18/17 05:30 INR 1.1 (0.9-1.2) 11/05/17 05:30 APTT 34.9 Seconds (25.6-37.1) 05/18/17 05:30 - Respiratory Exam Respiratory Exam: NORMAL BREATHING PATTERN - Cardiovascular Exam Cardiovascular Exam: REGULAR RHYTHM - GI/Abdominal Exam GI & Abdominal Exam: Normal Bowel Sounds Assessment and Plan - Assessment and Plan (Free Text) Assessment: MSA Parkinsons DX Shry Drager Low ext weakness?? Dx progression Fatigue -Meds?? reconsult neuro Disposition?? awaiting transfer to [place] Pt has medical decision making capacity but is financially vulnerable and benefits from legal guardianship Court and Social service involved Pt is [place] S/P Bradycardia Hypotenson chronic A-fib Sepsis ? Autonomic dysfunction? Thrombocytopenia chronic DVT prophylaxis SCD (no Lovenox due to thrombocytopenia) R shoulder pain Dec ROM xrays subluxation Ultram PRN PT Recuurent c-diff Gastroentritis? resolved LGI bleed Thrombocytopenia Decubitus ulcer buttocks Increased frequency urinating UA CS PVR all wnl S/P UTI Enterrococus S/P Urinary retention S/P UTI Proteus
[2017-05-27] MEDS: Bethanechol 50 MG TAB PO SCH ×3 (09:26→16:20)
[2017-05-27] MEDS: Carbidopa/Levodopa 50/200 CR PO SCH ×3 (09:27→16:20)
--- NOTE | 2017-05-27 20:11 | CP.PCM.PN ---
Subjective - Date & Time of Evaluation Date of Evaluation: 05/27/17 Time of Evaluation: 22:22 - Subjective Subjective: Above noted Objective - Vital Signs/Intake and Output Vital Signs (last 24 hours): Temp Pulse Resp BP Pulse Ox 97.4 F L 78 20 110/68 98 05/27/17 16:04 05/27/17 16:04 05/27/17 16:04 05/27/17 16:04 05/27/17 16:04 - Medications Medications: Current Medications Acetaminophen (Tylenol 325mg Tab) 650 mg PO Q6 PRN PRN Reason: Pain, Mild (1-3) Last Admin: 03/20/17 08:21 Dose: 650 mg Amantadine HCl (Amantadine 100 Mg Cap) 100 mg PO BID [facility] Last Admin: 05/27/17 16:20 Dose: 100 mg Artificial Tears (Artificial Tears) 2 drop OU Q4 PRN PRN Reason: Dry eyes Last Admin: 05/23/17 21:54 Dose: 2 drop Benzocaine/Menthol (Cepacol Sore Throat) 1 morro PO TID PRN PRN Reason: Sore Throat Last Admin: 05/19/17 08:35 Dose: 1 morro Bethanechol Chloride (Urecholine) 50 mg PO TID [facility] Last Admin: 05/27/17 16:20 Dose: 50 mg Carbidopa/Levodopa (Sinemet Cr) 1 tab PO TID [facility] Last Admin: 05/27/17 16:20 Dose: 1 tab Docusate Sodium (Colace) 100 mg PO BID [facility] Last Admin: 05/27/17 16:20 Dose: 100 mg Famotidine (Pepcid) 40 mg PO HS [facility] Last Admin: 05/26/17 21:33 Dose: 40 mg Fluocinonide (Lidex 0.05% Oint) 1 applic TOP BID [facility] Last Admin: 05/27/17 16:20 Dose: 1 applic Nystatin (Nystop Topical Powder) 1 applic TOP TID [facility] Last Admin: 05/27/17 16:21 Dose: 1 applic - Labs Labs: 05/18/17 05:30 05/18/17 05:30 PT 12.6 Seconds (9.8-13.1) 05/18/17 05:30 INR 1.1 (0.9-1.2) 11/05/17 05:30 APTT 34.9 Seconds (25.6-37.1) 05/18/17 05:30 - Respiratory Exam Respiratory Exam: NORMAL BREATHING PATTERN - Cardiovascular Exam Cardiovascular Exam: REGULAR RHYTHM - GI/Abdominal Exam GI & Abdominal Exam: Normal Bowel Sounds Assessment and Plan - Assessment and Plan (Free Text) Assessment: MSA Parkinsons DX Shry Drager Low ext weakness?? Dx progression Fatigue -Meds?? reconsult neuro Disposition?? awaiting transfer to [place] Pt has medical decision making capacity but is financially vulnerable and benefits from legal guardianship Court and Social service involved Pt is [place] S/P Bradycardia Hypotenson chronic A-fib Sepsis ? Autonomic dysfunction? Thrombocytopenia chronic DVT prophylaxis SCD (no Lovenox due to thrombocytopenia) R shoulder pain Dec ROM xrays subluxation Ultram PRN PT Recuurent c-diff Gastroentritis? resolved LGI bleed Thrombocytopenia Decubitus ulcer buttocks Increased frequency urinating UA CS PVR all wnl S/P UTI Enterrococus S/P Urinary retention S/P UTI Proteus
[2017-05-28] MEDS: Bethanechol 50 MG TAB PO SCH ×3 (09:50→17:08)
[2017-05-28] MEDS: Carbidopa/Levodopa 50/200 CR PO SCH ×3 (09:50→17:10)
--- NOTE | 2017-05-28 17:32 | CP.PCM.PN ---
Subjective - Date & Time of Evaluation Date of Evaluation: 05/28/17 Time of Evaluation: 22:22 - Subjective Subjective: Doing well Objective - Vital Signs/Intake and Output Vital Signs (last 24 hours): Temp Pulse Resp BP Pulse Ox 97.3 F L 86 20 146/80 98 05/28/17 16:19 05/28/17 16:19 05/28/17 16:19 05/28/17 16:19 05/28/17 16:19 - Medications Medications: Current Medications Acetaminophen (Tylenol 325mg Tab) 650 mg PO Q6 PRN PRN Reason: Pain, Mild (1-3) Last Admin: 03/20/17 08:21 Dose: 650 mg Amantadine HCl (Amantadine 100 Mg Cap) 100 mg PO BID [facility] Last Admin: 05/28/17 17:11 Dose: 100 mg Artificial Tears (Artificial Tears) 2 drop OU Q4 PRN PRN Reason: Dry eyes Last Admin: 05/23/17 21:54 Dose: 2 drop Benzocaine/Menthol (Cepacol Sore Throat) 1 morro PO TID PRN PRN Reason: Sore Throat Last Admin: 05/19/17 08:35 Dose: 1 morro Bethanechol Chloride (Urecholine) 50 mg PO TID [facility] Last Admin: 05/28/17 17:08 Dose: 50 mg Carbidopa/Levodopa (Sinemet Cr) 1 tab PO TID [facility] Last Admin: 05/28/17 17:10 Dose: 1 tab Docusate Sodium (Colace) 100 mg PO BID [facility] Last Admin: 05/28/17 17:11 Dose: 100 mg Famotidine (Pepcid) 40 mg PO HS [facility] Last Admin: 05/27/17 21:01 Dose: 40 mg Fluocinonide (Lidex 0.05% Oint) 1 applic TOP BID [facility] Last Admin: 05/28/17 17:11 Dose: 1 applic Nystatin (Nystop Topical Powder) 1 applic TOP TID [facility] Last Admin: 05/28/17 17:12 Dose: 1 applic - Labs Labs: 05/18/17 05:30 05/18/17 05:30 PT 12.6 Seconds (9.8-13.1) 05/18/17 05:30 INR 1.1 (0.9-1.2) 11/05/17 05:30 APTT 34.9 Seconds (25.6-37.1) 05/18/17 05:30 - Respiratory Exam Respiratory Exam: NORMAL BREATHING PATTERN - Cardiovascular Exam Cardiovascular Exam: REGULAR RHYTHM - GI/Abdominal Exam GI & Abdominal Exam: Normal Bowel Sounds Assessment and Plan - Assessment and Plan (Free Text) Assessment: MSA Parkinsons DX Shry Drager Low ext weakness?? Dx progression Fatigue -Meds?? reconsult neuro Disposition?? awaiting transfer to [place] Pt has medical decision making capacity but is financially vulnerable and benefits from legal guardianship Court and Social service involved Pt is [place] S/P Bradycardia Hypotenson chronic A-fib Sepsis ? Autonomic dysfunction? Thrombocytopenia chronic DVT prophylaxis SCD (no Lovenox due to thrombocytopenia) R shoulder pain Dec ROM xrays subluxation Ultram PRN PT Recuurent c-diff Gastroentritis? resolved LGI bleed Thrombocytopenia Decubitus ulcer buttocks Increased frequency urinating UA CS PVR all wnl S/P UTI Enterrococus S/P Urinary retention S/P UTI Proteus
[2017-05-29] MEDS: Bethanechol 50 MG TAB PO SCH ×3 (10:17→17:31)
[2017-05-29] MEDS: Carbidopa/Levodopa 50/200 CR PO SCH ×3 (10:21→17:31)
--- NOTE | 2017-05-29 20:30 | CP.PCM.PN ---
Subjective - Date & Time of Evaluation Date of Evaluation: 05/29/17 Time of Evaluation: 22:22 - Subjective Subjective: Above noted Objective - Vital Signs/Intake and Output Vital Signs (last 24 hours): Temp Pulse Resp BP Pulse Ox 97.5 F L 95 H 20 103/54 L 96 05/29/17 08:08 05/29/17 08:08 05/29/17 08:08 05/29/17 08:08 05/29/17 08:08 - Medications Medications: Current Medications Acetaminophen (Tylenol 325mg Tab) 650 mg PO Q6 PRN PRN Reason: Pain, Mild (1-3) Last Admin: 03/20/17 08:21 Dose: 650 mg Amantadine HCl (Amantadine 100 Mg Cap) 100 mg PO BID [facility] Last Admin: 05/29/17 17:27 Dose: 100 mg Artificial Tears (Artificial Tears) 2 drop OU Q4 PRN PRN Reason: Dry eyes Last Admin: 05/23/17 21:54 Dose: 2 drop Benzocaine/Menthol (Cepacol Sore Throat) 1 morro PO TID PRN PRN Reason: Sore Throat Last Admin: 05/19/17 08:35 Dose: 1 morro Bethanechol Chloride (Urecholine) 50 mg PO TID [facility] Last Admin: 05/29/17 17:31 Dose: 50 mg Carbidopa/Levodopa (Sinemet Cr) 1 tab PO TID [facility] Last Admin: 05/29/17 17:31 Dose: 1 tab Docusate Sodium (Colace) 100 mg PO BID [facility] Last Admin: 05/29/17 17:29 Dose: 100 mg Famotidine (Pepcid) 40 mg PO HS [facility] Last Admin: 05/28/17 21:48 Dose: 40 mg Fluocinonide (Lidex 0.05% Oint) 1 applic TOP BID [facility] Last Admin: 05/29/17 17:29 Dose: 1 applic Nystatin (Nystop Topical Powder) 1 applic TOP TID [facility] Last Admin: 05/29/17 17:30 Dose: 1 applic - Labs Labs: 05/18/17 05:30 05/18/17 05:30 PT 12.6 Seconds (9.8-13.1) 05/18/17 05:30 INR 1.1 (0.9-1.2) 05/18/17 05:30 APTT 34.9 Seconds (25.6-37.1) 05/18/17 05:30 - Respiratory Exam Respiratory Exam: NORMAL BREATHING PATTERN - Cardiovascular Exam Cardiovascular Exam: REGULAR RHYTHM - GI/Abdominal Exam GI & Abdominal Exam: Normal Bowel Sounds Assessment and Plan - Assessment and Plan (Free Text) Assessment: MSA Parkinsons DX Shry Drager Low ext weakness?? Dx progression Fatigue -Meds?? reconsult neuro Disposition?? awaiting transfer to [place] Pt has medical decision making capacity but is financially vulnerable and benefits from legal guardianship Court and Social service involved Pt is [place] S/P Bradycardia Hypotenson chronic A-fib Sepsis ? Autonomic dysfunction? Thrombocytopenia chronic DVT prophylaxis SCD (no Lovenox due to thrombocytopenia) R shoulder pain Dec ROM xrays subluxation Ultram PRN PT Recuurent c-diff Gastroentritis? resolved LGI bleed Thrombocytopenia Decubitus ulcer buttocks Increased frequency urinating UA CS PVR all wnl S/P UTI Enterrococus S/P Urinary retention S/P UTI Proteus
[2017-05-30] MEDS: Bethanechol 50 MG TAB PO SCH ×3 (09:15→16:27)
[2017-05-30] MEDS: Carbidopa/Levodopa 50/200 CR PO SCH ×3 (09:16→16:27)
--- NOTE | 2017-05-30 14:39 | CP.PCM.PN ---
Subjective - Date & Time of Evaluation Date of Evaluation: 05/30/17 Time of Evaluation: 22:22 - Subjective Subjective: Above noted Objective - Vital Signs/Intake and Output Vital Signs (last 24 hours): Temp Pulse Resp BP Pulse Ox 97.7 F 94 H 20 124/76 98 05/30/17 07:42 05/30/17 07:42 05/30/17 07:42 05/30/17 07:42 05/30/17 07:42 - Medications Medications: Current Medications Acetaminophen (Tylenol 325mg Tab) 650 mg PO Q6 PRN PRN Reason: Pain, Mild (1-3) Last Admin: 03/20/17 08:21 Dose: 650 mg Amantadine HCl (Amantadine 100 Mg Cap) 100 mg PO BID [facility] Last Admin: 05/30/17 09:15 Dose: 100 mg Artificial Tears (Artificial Tears) 2 drop OU Q4 PRN PRN Reason: Dry eyes Last Admin: 05/23/17 21:54 Dose: 2 drop Benzocaine/Menthol (Cepacol Sore Throat) 1 morro PO TID PRN PRN Reason: Sore Throat Last Admin: 05/19/17 08:35 Dose: 1 morro Bethanechol Chloride (Urecholine) 50 mg PO TID [facility] Last Admin: 05/30/17 12:14 Dose: 50 mg Carbidopa/Levodopa (Sinemet Cr) 1 tab PO TID [facility] Last Admin: 05/30/17 12:15 Dose: 1 tab Docusate Sodium (Colace) 100 mg PO BID [facility] Last Admin: 05/30/17 09:15 Dose: 100 mg Famotidine (Pepcid) 40 mg PO HS [facility] Last Admin: 05/29/17 21:48 Dose: 40 mg Fluocinonide (Lidex 0.05% Oint) 1 applic TOP BID [facility] Last Admin: 05/30/17 09:15 Dose: 1 applic Nystatin (Nystop Topical Powder) 1 applic TOP TID [facility] Last Admin: 05/30/17 12:14 Dose: 1 applic - Labs Labs: 05/18/17 05:30 05/18/17 05:30 PT 12.6 Seconds (9.8-13.1) 05/18/17 05:30 INR 1.1 (0.9-1.2) 11/05/17 05:30 APTT 34.9 Seconds (25.6-37.1) 05/18/17 05:30 - Respiratory Exam Respiratory Exam: NORMAL BREATHING PATTERN - Cardiovascular Exam Cardiovascular Exam: REGULAR RHYTHM - GI/Abdominal Exam GI & Abdominal Exam: Normal Bowel Sounds Assessment and Plan - Assessment and Plan (Free Text) Assessment: MSA Parkinsons DX Shry Drager Low ext weakness?? Dx progression Fatigue -Meds?? reconsult neuro Disposition?? awaiting transfer to [place] Pt has medical decision making capacity but is financially vulnerable and benefits from legal guardianship Court and Social service involved Pt is [place] S/P Bradycardia Hypotenson chronic A-fib Sepsis ? Autonomic dysfunction? Thrombocytopenia chronic DVT prophylaxis SCD (no Lovenox due to thrombocytopenia) R shoulder pain Dec ROM xrays subluxation Ultram PRN PT Recuurent c-diff Gastroentritis? resolved LGI bleed Thrombocytopenia Decubitus ulcer buttocks Increased frequency urinating UA CS PVR all wnl S/P UTI Enterrococus S/P Urinary retention S/P UTI Proteus
[2017-05-31] MEDS: Carbidopa/Levodopa 50/200 CR PO SCH ×3 (08:48→17:03)
[2017-05-31] MEDS: Bethanechol 50 MG TAB PO SCH ×3 (08:48→17:03)
[2017-06-01] MEDS: Carbidopa/Levodopa 50/200 CR PO SCH ×3 (10:13→16:14)
[2017-06-01] MEDS: Bethanechol 50 MG TAB PO SCH ×3 (10:53→16:14)
[2017-06-02] MEDS: Carbidopa/Levodopa 50/200 CR PO SCH ×3 (09:27→17:49)
[2017-06-02] MEDS: Bethanechol 50 MG TAB PO SCH ×3 (09:28→17:49)
--- NOTE | 2017-06-02 20:05 | CP.PCM.PN ---
Subjective - Date & Time of Evaluation Date of Evaluation: 06/02/17 Time of Evaluation: 22:22 - Subjective Subjective: Above noted Objective - Vital Signs/Intake and Output Vital Signs (last 24 hours): Temp Pulse Resp BP Pulse Ox 97.5 F L 73 20 123/70 100 06/02/17 16:46 06/02/17 16:46 06/02/17 16:46 06/02/17 16:46 06/02/17 16:46 - Medications Medications: Current Medications Acetaminophen (Tylenol 325mg Tab) 650 mg PO Q6 PRN PRN Reason: Pain, Mild (1-3) Last Admin: 03/20/17 08:21 Dose: 650 mg Amantadine HCl (Amantadine 100 Mg Cap) 100 mg PO BID [facility] Last Admin: 06/02/17 17:49 Dose: 100 mg Benzocaine/Menthol (Cepacol Sore Throat) 1 morro PO TID PRN PRN Reason: Sore Throat Last Admin: 05/19/17 08:35 Dose: 1 morro Bethanechol Chloride (Urecholine) 50 mg PO TID [facility] Last Admin: 06/02/17 17:49 Dose: 50 mg Carbidopa/Levodopa (Sinemet Cr) 1 tab PO TID [facility] Last Admin: 06/02/17 17:49 Dose: 1 tab Docusate Sodium (Colace) 100 mg PO BID [facility] Last Admin: 06/02/17 17:48 Dose: 100 mg Famotidine (Pepcid) 40 mg PO HS [facility] Last Admin: 06/01/17 21:00 Dose: 40 mg Fluocinonide (Lidex 0.05% Oint) 1 applic TOP BID PRN PRN Reason: Rash Last Admin: 06/02/17 17:49 Dose: 1 applic Nystatin (Nystop Topical Powder) 1 applic TOP TID [facility] Last Admin: 06/02/17 17:48 Dose: 1 applic - Labs Labs: 05/18/17 05:30 05/18/17 05:30 PT 12.6 Seconds (9.8-13.1) 05/18/17 05:30 INR 1.1 (0.9-1.2) 05/18/17 05:30 APTT 34.9 Seconds (25.6-37.1) 05/18/17 05:30 - Respiratory Exam Respiratory Exam: NORMAL BREATHING PATTERN - Cardiovascular Exam Cardiovascular Exam: REGULAR RHYTHM - GI/Abdominal Exam GI & Abdominal Exam: Normal Bowel Sounds Assessment and Plan - Assessment and Plan (Free Text) Assessment: MSA Parkinsons DX Shry Drager Low ext weakness?? Dx progression Fatigue -Meds?? reconsult neuro Disposition?? awaiting transfer to [place] Pt has medical decision making capacity but is financially vulnerable and benefits from legal guardianship Court and Social service involved Pt is [place] S/P Bradycardia Hypotenson chronic A-fib Sepsis ? Autonomic dysfunction? Thrombocytopenia chronic DVT prophylaxis SCD (no Lovenox due to thrombocytopenia) R shoulder pain Dec ROM xrays subluxation Ultram PRN PT Recuurent c-diff Gastroentritis? resolved LGI bleed Thrombocytopenia Decubitus ulcer buttocks Increased frequency urinating UA CS PVR all wnl
[2017-06-03] MEDS: Carbidopa/Levodopa 50/200 CR PO SCH ×3 (08:57→17:22)
[2017-06-03] MEDS: Bethanechol 50 MG TAB PO SCH ×3 (08:57→17:22)
--- NOTE | 2017-06-03 15:44 | CP.PCM.PN ---
Subjective - Date & Time of Evaluation Date of Evaluation: 06/03/17 Time of Evaluation: 22:22 - Subjective Subjective: Above noted Objective - Vital Signs/Intake and Output Vital Signs (last 24 hours): Temp Pulse Resp BP Pulse Ox 97.3 F L 105 H 20 128/56 L 95 06/03/17 08:28 06/03/17 08:28 06/03/17 08:28 06/03/17 08:28 06/03/17 08:28 - Medications Medications: Current Medications Acetaminophen (Tylenol 325mg Tab) 650 mg PO Q6 PRN PRN Reason: Pain, Mild (1-3) Last Admin: 03/20/17 08:21 Dose: 650 mg Amantadine HCl (Amantadine 100 Mg Cap) 100 mg PO BID [facility] Last Admin: 06/03/17 08:56 Dose: 100 mg Benzocaine/Menthol (Cepacol Sore Throat) 1 morro PO TID PRN PRN Reason: Sore Throat Last Admin: 05/19/17 08:35 Dose: 1 morro Bethanechol Chloride (Urecholine) 50 mg PO TID [facility] Last Admin: 06/03/17 12:44 Dose: 50 mg Carbidopa/Levodopa (Sinemet Cr) 1 tab PO TID [facility] Last Admin: 06/03/17 12:44 Dose: 1 tab Docusate Sodium (Colace) 100 mg PO BID [facility] Last Admin: 06/03/17 08:56 Dose: 100 mg Famotidine (Pepcid) 40 mg PO HS [facility] Last Admin: 06/02/17 22:00 Dose: 40 mg Fluocinonide (Lidex 0.05% Oint) 1 applic TOP BID PRN PRN Reason: Rash Last Admin: 06/02/17 17:49 Dose: 1 applic Nystatin (Nystop Topical Powder) 1 applic TOP TID [facility] Last Admin: 06/03/17 12:44 Dose: 1 applic - Labs Labs: 05/18/17 05:30 05/18/17 05:30 PT 12.6 Seconds (9.8-13.1) 05/18/17 05:30 INR 1.1 (0.9-1.2) 05/18/17 05:30 APTT 34.9 Seconds (25.6-37.1) 05/18/17 05:30 - Respiratory Exam Respiratory Exam: NORMAL BREATHING PATTERN - Cardiovascular Exam Cardiovascular Exam: REGULAR RHYTHM - GI/Abdominal Exam GI & Abdominal Exam: Normal Bowel Sounds Assessment and Plan - Assessment and Plan (Free Text) Assessment: MSA Parkinsons DX Shry Drager Low ext weakness?? Dx progression Fatigue -Meds?? reconsult neuro Disposition?? awaiting transfer to [place] Pt has medical decision making capacity but is financially vulnerable and benefits from legal guardianship Court and Social service involved Pt is [place] S/P Bradycardia Hypotenson chronic A-fib Sepsis ? Autonomic dysfunction? Thrombocytopenia chronic DVT prophylaxis SCD (no Lovenox due to thrombocytopenia) R shoulder pain Dec ROM xrays subluxation Ultram PRN PT Recuurent c-diff Gastroentritis? resolved LGI bleed Thrombocytopenia Decubitus ulcer buttocks Increased frequency urinating UA CS PVR all wnl
[2017-06-04] MEDS: Carbidopa/Levodopa 50/200 CR PO SCH ×3 (08:42→16:31)
[2017-06-04] MEDS: Bethanechol 50 MG TAB PO SCH ×3 (08:43→16:31)
--- NOTE | 2017-06-04 16:37 | CP.PCM.PN ---
Subjective - Date & Time of Evaluation Date of Evaluation: 06/04/17 Time of Evaluation: 22:22 - Subjective Subjective: Above noted Objective - Vital Signs/Intake and Output Vital Signs (last 24 hours): Temp Pulse Resp BP Pulse Ox 97.5 F L 61 20 138/91 H 98 06/04/17 15:58 06/04/17 15:58 06/04/17 15:58 06/04/17 15:58 06/04/17 15:58 - Medications Medications: Current Medications Acetaminophen (Tylenol 325mg Tab) 650 mg PO Q6 PRN PRN Reason: Pain, Mild (1-3) Last Admin: 03/20/17 08:21 Dose: 650 mg Amantadine HCl (Amantadine 100 Mg Cap) 100 mg PO BID [facility] Last Admin: 06/04/17 16:31 Dose: 100 mg Benzocaine/Menthol (Cepacol Sore Throat) 1 morro PO TID PRN PRN Reason: Sore Throat Last Admin: 05/19/17 08:35 Dose: 1 morro Bethanechol Chloride (Urecholine) 50 mg PO TID [facility] Last Admin: 06/04/17 16:31 Dose: 50 mg Carbidopa/Levodopa (Sinemet Cr) 1 tab PO TID [facility] Last Admin: 06/04/17 16:31 Dose: 1 tab Docusate Sodium (Colace) 100 mg PO BID [facility] Last Admin: 06/04/17 16:31 Dose: 100 mg Famotidine (Pepcid) 40 mg PO HS [facility] Last Admin: 06/03/17 21:53 Dose: 40 mg Fluocinonide (Lidex 0.05% Oint) 1 applic TOP BID PRN PRN Reason: Rash Last Admin: 06/03/17 17:21 Dose: 1 applic Nystatin (Nystop Topical Powder) 1 applic TOP TID [facility] Last Admin: 06/04/17 16:31 Dose: 1 applic - Labs Labs: 05/18/17 05:30 05/18/17 05:30 PT 12.6 Seconds (9.8-13.1) 05/18/17 05:30 INR 1.1 (0.9-1.2) 05/18/17 05:30 APTT 34.9 Seconds (25.6-37.1) 05/18/17 05:30 Assessment and Plan - Assessment and Plan (Free Text) Assessment: MSA Parkinsons DX Lilia Vieira Low ext weakness?? Dx progression Fatigue -Meds?? reconsult neuro Disposition?? awaiting transfer to [place] Pt has medical decision making capacity but is financially vulnerable and benefits from legal guardianship Court and Social service involved Pt is [place] WW[place] S/P Bradycardia Hypotenson chronic A-fib Sepsis ? Autonomic dysfunction? Thrombocytopenia chronic DVT prophylaxis SCD (no Lovenox due to thrombocytopenia) R shoulder pain Dec ROM xrays subluxation Ultram PRN PT Recuurent c-diff Gastroentritis? resolved LGI bleed Thrombocytopenia Decubitus ulcer buttocks Increased frequency urinating UA CS PVR all wnl
[2017-06-05] MEDS: Carbidopa/Levodopa 50/200 CR PO SCH ×3 (08:46→16:59)
[2017-06-05] MEDS: Bethanechol 50 MG TAB PO SCH ×3 (08:47→16:59)
[2017-06-06] MEDS: Bethanechol 50 MG TAB PO SCH ×3 (09:57→17:42)
[2017-06-06] MEDS: Carbidopa/Levodopa 50/200 CR PO SCH ×3 (09:57→17:42)
--- NOTE | 2017-06-06 12:00 | CP.PCM.CON ---
History of Present Illness - History of Present Illness History of Present Illness: 87 y/o male with PMHx of Parkinson's disease re-consulted concerning elongated thickened toenails. Communication is difficult due to advance stage of Parkinson 's. Pt is seen at bedside resting comfortably upright in chair. Nurse denies pt experiencing any F/C/N/V/CP/SOB. . Review of Systems - Review of Systems All systems: reviewed and no additional remarkable complaints except (per HPI) Past Patient History - Tetanus Immunizations Tetanus Immunization: Unknown - Past Medical History & Family History Past Medical History?: Yes - Past Social History Smoking Status: Never Smoked - CARDIAC Hx Cardiac Disorders: No Hx Congestive Heart Failure: No Hx Hypercholesterolemia: No Hx Hypertension: No - PULMONARY Hx Chronic Obstructive Pulmonary Disease (COPD): No - NEUROLOGICAL HX Cerebrovascular Accident: No - HEENT Hx HEENT Problems: Yes Hx Cataracts: No Hx Deafness: No Hx Difficulty Chewing: No Hx Epistaxis: No Hx Glaucoma: Yes Hx Macular Degeneration: No - RENAL Hx Renal Failure: No - ENDOCRINE/METABOLIC Hx Diabetes Mellitus Type 1: No Hx Diabetes Mellitus Type 2: No Hx Hypothyroidism: No - HEMATOLOGICAL/ONCOLOGICAL Hx Anemia: No Hx Human Immunodeficiency Virus (HIV): No Hx Sickle Cell Disease: No - INTEGUMENTARY Hx Dermatological Problems: No Hx Basil Cell: No Hx Silva: No Hx Cellulitis: Yes (right leg) Hx Eczema: No Hx Melanoma: No Hx Psoriasis: No Hx Squamous Cell: No - MUSCULOSKELETAL/RHEUMATOLOGICAL Hx Arthritis: No Hx Rheumatoid Arthritis: No - GASTROINTESTINAL Hx Crohn's Disease: No Hx Diverticulitis: No Hx Gall Bladder Disease: No Hx Gastritis: No Hx Pancreatitis: No - GENITOURINARY/GYNECOLOGICAL Hx Sexually Transmitted Disorders: No - PSYCHIATRIC Hx Anxiety: Yes Hx Depression: Yes - SURGICAL HISTORY Hx Appendectomy: Yes Hx Carotid Endarterectomy: No Hx Cholecystectomy: No Hx Coronary Artery Bypass Graft: No Hx Coronary Stent: No Hx Tonsillectomy: Yes - ANESTHESIA Hx Anesthesia: Yes Hx Anesthesia Reactions: No Hx Malignant Hyperthermia: No Meds Allergies/Adverse Reactions: Allergies Allergy/AdvReac Type Severity Reaction Status Date / Time Penicillins Allergy Hives Verified 08/01/15 06:34 - Medications Medications: Current Medications Acetaminophen (Tylenol 325mg Tab) 650 mg PO Q6 PRN PRN Reason: Pain, Mild (1-3) Last Admin: 03/20/17 08:21 Dose: 650 mg Amantadine HCl (Amantadine 100 Mg Cap) 100 mg PO BID [facility] Last Admin: 06/06/17 09:56 Dose: 100 mg Benzocaine/Menthol (Cepacol Sore Throat) 1 morro PO TID PRN PRN Reason: Sore Throat Last Admin: 05/19/17 08:35 Dose: 1 morro Bethanechol Chloride (Urecholine) 50 mg PO TID [facility] Last Admin: 06/06/17 09:57 Dose: 50 mg Carbidopa/Levodopa (Sinemet Cr) 1 tab PO TID [facility] Last Admin: 06/06/17 09:57 Dose: 1 tab Docusate Sodium (Colace) 100 mg PO BID [facility] Last Admin: 06/06/17 09:56 Dose: 100 mg Famotidine (Pepcid) 40 mg PO HS [facility] Last Admin: 06/05/17 21:52 Dose: 40 mg Fluocinonide (Lidex 0.05% Oint) 1 applic TOP BID PRN PRN Reason: Rash Last Admin: 06/03/17 17:21 Dose: 1 applic Nystatin (Nystop Topical Powder) 1 applic TOP TID [facility] Last Admin: 06/06/17 09:57 Dose: 1 applic Physical Exam - Constitutional Appears: Well, Non-toxic, No Acute Distress - Extremities Exam Additional comments: Lower extremity focused exam: VASC: DP/PT pulses palpable 2/4 B/L. No edema noted. Temperature gradient runs warm to cool from proximal to distal. DERM: Toenails are elongated, thickened and discolored w/ subungual debris x 10. Incurvated B/L borders noted to right hallux nail. No erythema, no interdigital maceration, no open lesions. NEURO:Grossly diminished bilaterally. ORTHO: muscle power +4/5. No pain noted on end ROM for major pedal joints bilaterally. No gross deformities noted. 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 Buck Aseptic debridement of all 10 toenails with sterile nippers Pt tolerated procedure without incident Pt is stable form podiatric standpoint Thank you for this consult and please reconsult as needed for this patient
--- NOTE | 2017-06-06 14:53 | CP.PCM.PN ---
Subjective - Date & Time of Evaluation Date of Evaluation: 06/06/17 Time of Evaluation: 22:22 - Subjective Subjective: Sleeping Objective - Vital Signs/Intake and Output Vital Signs (last 24 hours): Temp Pulse Resp BP Pulse Ox 97.7 F 66 20 122/75 98 06/06/17 08:25 06/06/17 08:25 06/06/17 08:25 06/06/17 08:25 06/06/17 08:25 - Medications Medications: Current Medications Acetaminophen (Tylenol 325mg Tab) 650 mg PO Q6 PRN PRN Reason: Pain, Mild (1-3) Last Admin: 03/20/17 08:21 Dose: 650 mg Amantadine HCl (Amantadine 100 Mg Cap) 100 mg PO BID [facility] Last Admin: 06/06/17 09:56 Dose: 100 mg Benzocaine/Menthol (Cepacol Sore Throat) 1 morro PO TID PRN PRN Reason: Sore Throat Last Admin: 05/19/17 08:35 Dose: 1 morro Bethanechol Chloride (Urecholine) 50 mg PO TID [facility] Last Admin: 06/06/17 14:02 Dose: 50 mg Carbidopa/Levodopa (Sinemet Cr) 1 tab PO TID [facility] Last Admin: 06/06/17 14:02 Dose: 1 tab Docusate Sodium (Colace) 100 mg PO BID [facility] Last Admin: 06/06/17 09:56 Dose: 100 mg Famotidine (Pepcid) 40 mg PO HS [facility] Last Admin: 06/05/17 21:52 Dose: 40 mg Fluocinonide (Lidex 0.05% Oint) 1 applic TOP BID PRN PRN Reason: Rash Last Admin: 06/03/17 17:21 Dose: 1 applic Nystatin (Nystop Topical Powder) 1 applic TOP TID [facility] Last Admin: 06/06/17 14:01 Dose: 1 applic - Labs Labs: 05/18/17 05:30 05/18/17 05:30 PT 12.6 Seconds (9.8-13.1) 05/18/17 05:30 INR 1.1 (0.9-1.2) 05/18/17 05:30 APTT 34.9 Seconds (25.6-37.1) 05/18/17 05:30 - Respiratory Exam Respiratory Exam: NORMAL BREATHING PATTERN - Cardiovascular Exam Cardiovascular Exam: REGULAR RHYTHM - GI/Abdominal Exam GI & Abdominal Exam: Normal Bowel Sounds Assessment and Plan - Assessment and Plan (Free Text) Assessment: MSA Parkinsons DX Shry Drager Low ext weakness?? Dx progression Fatigue -Meds?? reconsult neuro Disposition?? awaiting transfer to [place] Pt has medical decision making capacity but is financially vulnerable and benefits from legal guardianship Court and Social service involved Pt is [place] [employer] S/P Bradycardia Hypotenson chronic A-fib Sepsis ? Autonomic dysfunction? Thrombocytopenia chronic DVT prophylaxis SCD (no Lovenox due to thrombocytopenia) R shoulder pain Dec ROM xrays subluxation Ultram PRN PT Recuurent c-diff Gastroentritis? resolved LGI bleed Thrombocytopenia Decubitus ulcer buttocks Increased frequency urinating UA CS PVR all wnl
[2017-06-06 17:13] LABS: BASO % 0.7 % (0.0-2.0); EOS # 0.5 K/uL (0.0-0.7); EOS % 9.7 % (0.0-4.0); HEMOGLOBIN 12.8 g/dL (12.0-18.0); LYMPH # 1.4 K/uL (1.0-4.3); MEAN CELL VOLUME 95.6 fl (80.0-94.0); MEAN CORPUSCULAR HEMOGLOBIN 30.9 pg (27.0-31.0); MEAN CORPUSCULAR HGB CONC 32.3 g/dL (33.0-37.0); MONO # 0.4 K/uL (0.0-0.8); MONO % 7.9 % (0.0-10.0); NEUT # 3.1 K/uL (1.8-7.0); NEUT % 56.7 % (50.0-75.0); NRBC % 0.1 % (0.0-0.0); RBC 4.13 Mil/uL (4.40-5.90); RED CELL DISTRIBUTION WIDTH 13.7 % (11.5-14.5); WHITE BLOOD COUNT 5.5 K/uL (4.8-10.8)
[2017-06-06 17:24] LABS: ALB/GLOB RATIO 1.3 (1.0-2.1); ALBUMIN 3.8 g/dL (3.5-5.0); ALT/SGPT 21 U/L (21-72); AST/SGOT 29 U/L (17-59); BLOOD UREA NITROGEN 23 mg/dl (9-20); CALCIUM 8.6 mg/dL (8.4-10.2); GFR AFRICAN-AMERICAN > 60; GFR NON-AFRICAN AMERICAN > 60
[2017-06-07] MEDS: Carbidopa/Levodopa 50/200 CR PO SCH ×3 (08:45→16:58)
[2017-06-07] MEDS: Bethanechol 50 MG TAB PO SCH ×3 (08:45→16:58)
[2017-06-08] MEDS: Bethanechol 50 MG TAB PO SCH ×3 (08:58→17:01)
[2017-06-08] MEDS: Carbidopa/Levodopa 50/200 CR PO SCH ×3 (08:59→17:02)
--- NOTE | 2017-06-08 13:32 | CP.PCM.PN ---
Subjective - Date & Time of Evaluation Date of Evaluation: 06/08/17 Time of Evaluation: 22:22 - Subjective Subjective: Above noted Objective - Vital Signs/Intake and Output Vital Signs (last 24 hours): Temp Pulse Resp BP Pulse Ox 98.0 F 98 H 20 143/81 98 06/08/17 08:13 06/08/17 08:13 06/08/17 08:13 06/08/17 08:13 06/08/17 08:13 - Medications Medications: Current Medications Acetaminophen (Tylenol 325mg Tab) 650 mg PO Q6 PRN PRN Reason: Pain, Mild (1-3) Last Admin: 03/20/17 08:21 Dose: 650 mg Amantadine HCl (Amantadine 100 Mg Cap) 100 mg PO BID [facility] Last Admin: 06/08/17 08:58 Dose: 100 mg Benzocaine/Menthol (Cepacol Sore Throat) 1 morro PO TID PRN PRN Reason: Sore Throat Last Admin: 05/19/17 08:35 Dose: 1 morro Bethanechol Chloride (Urecholine) 50 mg PO TID [facility] Last Admin: 06/08/17 08:58 Dose: 50 mg Carbidopa/Levodopa (Sinemet Cr) 1 tab PO TID [facility] Last Admin: 06/08/17 08:59 Dose: 1 tab Docusate Sodium (Colace) 100 mg PO BID [facility] Last Admin: 06/08/17 08:58 Dose: 100 mg Famotidine (Pepcid) 40 mg PO HS [facility] Last Admin: 06/07/17 21:12 Dose: 40 mg Fluocinonide (Lidex 0.05% Oint) 1 applic TOP BID PRN PRN Reason: Rash Last Admin: 06/06/17 17:42 Dose: 1 applic Nystatin (Nystop Topical Powder) 1 applic TOP TID [facility] Last Admin: 06/08/17 09:00 Dose: 1 applic - Labs Labs: 06/06/17 17:10 06/06/17 17:10 PT 12.6 Seconds (9.8-13.1) 05/18/17 05:30 INR 1.1 (0.9-1.2) 05/18/17 05:30 APTT 34.9 Seconds (25.6-37.1) 05/18/17 05:30 - Respiratory Exam Respiratory Exam: NORMAL BREATHING PATTERN - Cardiovascular Exam Cardiovascular Exam: REGULAR RHYTHM - GI/Abdominal Exam GI & Abdominal Exam: Normal Bowel Sounds Assessment and Plan - Assessment and Plan (Free Text) Assessment: MSA Parkinsons DX Shry Drager Low ext weakness?? Dx progression Fatigue -Meds?? reconsult neuro Disposition?? awaiting transfer to [place] Pt has medical decision making capacity but is financially vulnerable and benefits from legal guardianship Court and Social service involved Pt is [place] S/P Bradycardia Hypotenson chronic A-fib Sepsis ? Autonomic dysfunction? Thrombocytopenia chronic DVT prophylaxis SCD (no Lovenox due to thrombocytopenia) R shoulder pain Dec ROM xrays subluxation Ultram PRN PT Recuurent c-diff Gastroentritis? resolved LGI bleed Thrombocytopenia Decubitus ulcer buttocks Increased frequency urinating UA CS PVR all wnl
[2017-06-09] MEDS: Carbidopa/Levodopa 50/200 CR PO SCH ×3 (09:22→16:19)
[2017-06-09] MEDS: Bethanechol 50 MG TAB PO SCH ×3 (09:22→16:19)
--- NOTE | 2017-06-09 17:10 | CP.PCM.PN ---
Subjective - Date & Time of Evaluation Date of Evaluation: 06/09/17 Time of Evaluation: 22:22 - Subjective Subjective: Sitting in chair Objective - Vital Signs/Intake and Output Vital Signs (last 24 hours): Temp Pulse Resp BP Pulse Ox 97.5 F L 58 L 20 106/63 99 06/09/17 16:39 06/09/17 16:39 06/09/17 16:39 06/09/17 16:39 06/09/17 16:39 - Medications Medications: Current Medications Acetaminophen (Tylenol 325mg Tab) 650 mg PO Q6 PRN PRN Reason: Pain, Mild (1-3) Last Admin: 03/20/17 08:21 Dose: 650 mg Amantadine HCl (Amantadine 100 Mg Cap) 100 mg PO BID [facility] Last Admin: 06/09/17 16:18 Dose: 100 mg Benzocaine/Menthol (Cepacol Sore Throat) 1 morro PO TID PRN PRN Reason: Sore Throat Last Admin: 05/19/17 08:35 Dose: 1 morro Bethanechol Chloride (Urecholine) 50 mg PO TID [facility] Last Admin: 06/09/17 16:19 Dose: 50 mg Carbidopa/Levodopa (Sinemet Cr) 1 tab PO TID [facility] Last Admin: 06/09/17 16:19 Dose: 1 tab Docusate Sodium (Colace) 100 mg PO BID [facility] Last Admin: 06/09/17 16:18 Dose: 100 mg Famotidine (Pepcid) 40 mg PO HS [facility] Last Admin: 06/08/17 22:48 Dose: 40 mg Fluocinonide (Lidex 0.05% Oint) 1 applic TOP BID PRN PRN Reason: Rash Last Admin: 06/06/17 17:42 Dose: 1 applic Nystatin (Nystop Topical Powder) 1 applic TOP TID [facility] Last Admin: 06/09/17 16:18 Dose: 1 applic - Labs Labs: 06/06/17 17:10 06/06/17 17:10 PT 12.6 Seconds (9.8-13.1) 05/18/17 05:30 INR 1.1 (0.9-1.2) 05/18/17 05:30 APTT 34.9 Seconds (25.6-37.1) 05/18/17 05:30 - Respiratory Exam Respiratory Exam: NORMAL BREATHING PATTERN - Cardiovascular Exam Cardiovascular Exam: REGULAR RHYTHM - GI/Abdominal Exam GI & Abdominal Exam: Normal Bowel Sounds Assessment and Plan - Assessment and Plan (Free Text) Assessment: MSA Parkinsons DX Shry Drager Low ext weakness?? Dx progression Fatigue -Meds?? reconsult neuro Disposition?? awaiting transfer to [place] Pt has medical decision making capacity but is financially vulnerable and benefits from legal guardianship Court and Social service involved Pt is [place] S/P Bradycardia Hypotenson chronic A-fib Sepsis ? Autonomic dysfunction? Thrombocytopenia chronic DVT prophylaxis SCD (no Lovenox due to thrombocytopenia) R shoulder pain Dec ROM xrays subluxation Ultram PRN PT Recuurent c-diff Gastroentritis? resolved LGI bleed Thrombocytopenia Decubitus ulcer buttocks Increased frequency urinating UA CS PVR all wnl
[2017-06-10] MEDS: Carbidopa/Levodopa 50/200 CR PO SCH ×3 (08:27→16:03)
[2017-06-10] MEDS: Bethanechol 50 MG TAB PO SCH ×3 (08:28→16:03)
--- NOTE | 2017-06-10 20:34 | CP.PCM.PN ---
Subjective - Date & Time of Evaluation Date of Evaluation: 06/10/17 Time of Evaluation: 22:22 - Subjective Subjective: Above noted Objective - Vital Signs/Intake and Output Vital Signs (last 24 hours): Temp Pulse Resp BP Pulse Ox 97.5 F L 56 L 20 111/61 99 06/10/17 16:30 06/10/17 16:30 06/10/17 16:30 06/10/17 16:30 06/10/17 16:30 - Medications Medications: Current Medications Acetaminophen (Tylenol 325mg Tab) 650 mg PO Q6 PRN PRN Reason: Pain, Mild (1-3) Last Admin: 03/20/17 08:21 Dose: 650 mg Amantadine HCl (Amantadine 100 Mg Cap) 100 mg PO BID [facility] Last Admin: 06/10/17 16:03 Dose: 100 mg Benzocaine/Menthol (Cepacol Sore Throat) 1 morro PO TID PRN PRN Reason: Sore Throat Last Admin: 05/19/17 08:35 Dose: 1 morro Bethanechol Chloride (Urecholine) 50 mg PO TID [facility] Last Admin: 06/10/17 16:03 Dose: 50 mg Carbidopa/Levodopa (Sinemet Cr) 1 tab PO TID [facility] Last Admin: 06/10/17 16:03 Dose: 1 tab Docusate Sodium (Colace) 100 mg PO BID [facility] Last Admin: 06/10/17 16:04 Dose: 100 mg Famotidine (Pepcid) 40 mg PO HS [facility] Last Admin: 06/09/17 21:21 Dose: 40 mg Fluocinonide (Lidex 0.05% Oint) 1 applic TOP BID PRN PRN Reason: Rash Last Admin: 06/10/17 08:29 Dose: 1 applic Nystatin (Nystop Topical Powder) 1 applic TOP TID [facility] Last Admin: 06/10/17 16:02 Dose: 1 applic - Labs Labs: 06/06/17 17:10 06/06/17 17:10 PT 12.6 Seconds (9.8-13.1) 05/18/17 05:30 INR 1.1 (0.9-1.2) 05/18/17 05:30 APTT 34.9 Seconds (25.6-37.1) 05/18/17 05:30 - Respiratory Exam Respiratory Exam: NORMAL BREATHING PATTERN - Cardiovascular Exam Cardiovascular Exam: Tachycardia - GI/Abdominal Exam GI & Abdominal Exam: Normal Bowel Sounds Assessment and Plan - Assessment and Plan (Free Text) Assessment: MSA Parkinsons DX Shry Drager Low ext weakness?? Dx progression Fatigue -Meds?? reconsult neuro Disposition?? awaiting transfer to [place] Pt has medical decision making capacity but is financially vulnerable and benefits from legal guardianship Court and Social service involved Pt is [place] S/P Bradycardia Hypotenson chronic A-fib Sepsis ? Autonomic dysfunction? Thrombocytopenia chronic DVT prophylaxis SCD (no Lovenox due to thrombocytopenia) R shoulder pain Dec ROM xrays subluxation Ultram PRN PT Recuurent c-diff Gastroentritis? resolved LGI bleed Thrombocytopenia Decubitus ulcer buttocks Increased frequency urinating UA CS PVR all wnl
[2017-06-11] MEDS: Carbidopa/Levodopa 50/200 CR PO SCH ×3 (09:45→17:13)
[2017-06-11] MEDS: Bethanechol 50 MG TAB PO SCH ×3 (09:45→17:14)
--- NOTE | 2017-06-11 18:52 | CP.PCM.PN ---
Subjective - Date & Time of Evaluation Date of Evaluation: 06/11/17 Time of Evaluation: 22:22 - Subjective Subjective: Above noted Objective - Vital Signs/Intake and Output Vital Signs (last 24 hours): Temp Pulse Resp BP Pulse Ox 97.1 F L 52 L 20 107/59 L 93 L 06/11/17 16:12 06/11/17 16:12 06/11/17 16:12 06/11/17 16:12 06/11/17 16:12 - Medications Medications: Current Medications Acetaminophen (Tylenol 325mg Tab) 650 mg PO Q6 PRN PRN Reason: Pain, Mild (1-3) Last Admin: 03/20/17 08:21 Dose: 650 mg Amantadine HCl (Amantadine 100 Mg Cap) 100 mg PO BID [facility] Last Admin: 06/11/17 17:13 Dose: 100 mg Benzocaine/Menthol (Cepacol Sore Throat) 1 mroro PO TID PRN PRN Reason: Sore Throat Last Admin: 05/19/17 08:35 Dose: 1 morro Bethanechol Chloride (Urecholine) 50 mg PO TID [facility] Last Admin: 06/11/17 17:14 Dose: 50 mg Carbidopa/Levodopa (Sinemet Cr) 1 tab PO TID [facility] Last Admin: 06/11/17 17:13 Dose: 1 tab Docusate Sodium (Colace) 100 mg PO BID [facility] Last Admin: 06/11/17 17:14 Dose: 100 mg Famotidine (Pepcid) 40 mg PO HS [facility] Last Admin: 06/10/17 22:00 Dose: 40 mg Fluocinonide (Lidex 0.05% Oint) 1 applic TOP BID PRN PRN Reason: Rash Last Admin: 06/10/17 08:29 Dose: 1 applic Nystatin (Nystop Topical Powder) 1 applic TOP TID [facility] Last Admin: 06/11/17 17:15 Dose: 1 applic - Labs Labs: 06/06/17 17:10 06/06/17 17:10 PT 12.6 Seconds (9.8-13.1) 05/18/17 05:30 INR 1.1 (0.9-1.2) 05/18/17 05:30 APTT 34.9 Seconds (25.6-37.1) 05/18/17 05:30 - Respiratory Exam Respiratory Exam: NORMAL BREATHING PATTERN - Cardiovascular Exam Cardiovascular Exam: REGULAR RHYTHM - GI/Abdominal Exam GI & Abdominal Exam: Normal Bowel Sounds Assessment and Plan - Assessment and Plan (Free Text) Assessment: MSA Parkinsons DX Shry Drager Low ext weakness?? Dx progression Fatigue -Meds?? reconsult neuro Disposition?? awaiting transfer to [place] Pt has medical decision making capacity but is financially vulnerable and benefits from legal guardianship Court and Social service involved Pt is [place] S/P Bradycardia Hypotenson chronic A-fib Sepsis ? Autonomic dysfunction? Thrombocytopenia chronic DVT prophylaxis SCD (no Lovenox due to thrombocytopenia) R shoulder pain Dec ROM xrays subluxation Ultram PRN PT Recuurent c-diff Gastroentritis? resolved LGI bleed Thrombocytopenia Decubitus ulcer buttocks Increased frequency urinating UA CS PVR all wnl
[2017-06-12] MEDS: Carbidopa/Levodopa 50/200 CR PO SCH ×3 (09:47→16:15)
[2017-06-12] MEDS: Bethanechol 50 MG TAB PO SCH ×3 (09:47→16:15)
--- NOTE | 2017-06-12 21:01 | CP.PCM.PN ---
Subjective - Date & Time of Evaluation Date of Evaluation: 06/12/17 Time of Evaluation: 22:22 - Subjective Subjective: Above noted Objective - Vital Signs/Intake and Output Vital Signs (last 24 hours): Temp Pulse Resp BP Pulse Ox 97.2 F L 66 20 104/52 L 97 06/12/17 16:37 06/12/17 16:37 06/12/17 16:37 06/12/17 16:37 06/12/17 16:37 - Medications Medications: Current Medications Acetaminophen (Tylenol 325mg Tab) 650 mg PO Q6 PRN PRN Reason: Pain, Mild (1-3) Last Admin: 03/20/17 08:21 Dose: 650 mg Amantadine HCl (Amantadine 100 Mg Cap) 100 mg PO BID [facility] Last Admin: 06/12/17 16:15 Dose: 100 mg Benzocaine/Menthol (Cepacol Sore Throat) 1 morro PO TID PRN PRN Reason: Sore Throat Last Admin: 05/19/17 08:35 Dose: 1 morro Bethanechol Chloride (Urecholine) 50 mg PO TID [facility] Last Admin: 06/12/17 16:15 Dose: 50 mg Carbidopa/Levodopa (Sinemet Cr) 1 tab PO TID [facility] Last Admin: 06/12/17 16:15 Dose: 1 tab Docusate Sodium (Colace) 100 mg PO BID [facility] Last Admin: 06/12/17 16:16 Dose: 100 mg Famotidine (Pepcid) 40 mg PO HS [facility] Last Admin: 06/11/17 21:15 Dose: 40 mg Fluocinonide (Lidex 0.05% Oint) 1 applic TOP BID PRN PRN Reason: Rash Last Admin: 06/12/17 11:00 Dose: 1 applic Nystatin (Nystop Topical Powder) 1 applic TOP TID [facility] Last Admin: 06/12/17 16:52 Dose: 1 applic - Labs Labs: 06/06/17 17:10 06/06/17 17:10 PT 12.6 Seconds (9.8-13.1) 05/18/17 05:30 INR 1.1 (0.9-1.2) 05/18/17 05:30 APTT 34.9 Seconds (25.6-37.1) 05/18/17 05:30 - Respiratory Exam Respiratory Exam: NORMAL BREATHING PATTERN - Cardiovascular Exam Cardiovascular Exam: REGULAR RHYTHM - GI/Abdominal Exam GI & Abdominal Exam: Normal Bowel Sounds Assessment and Plan - Assessment and Plan (Free Text) Assessment: MSA Parkinsons DX Shry Drager Low ext weakness?? Dx progression Fatigue -Meds?? reconsult neuro Disposition?? awaiting transfer to [place] Pt has medical decision making capacity but is financially vulnerable and benefits from legal guardianship Court and Social service involved Pt is [place] WW[employer] S/P Bradycardia Hypotenson chronic A-fib Sepsis ? Autonomic dysfunction? Thrombocytopenia chronic DVT prophylaxis SCD (no Lovenox due to thrombocytopenia) R shoulder pain Dec ROM xrays subluxation Ultram PRN PT Recuurent c-diff Gastroentritis? resolved LGI bleed Thrombocytopenia Decubitus ulcer buttocks Increased frequency urinating UA CS PVR all wnl
[2017-06-13] MEDS: Bethanechol 50 MG TAB PO SCH ×3 (08:30→17:06)
[2017-06-13] MEDS: Carbidopa/Levodopa 50/200 CR PO SCH ×3 (08:30→17:06)
--- NOTE | 2017-06-13 17:53 | CP.PCM.PN ---
Subjective - Date & Time of Evaluation Date of Evaluation: 06/13/17 Time of Evaluation: 22:22 - Subjective Subjective: Above noted Objective - Vital Signs/Intake and Output Vital Signs (last 24 hours): Temp Pulse Resp BP Pulse Ox 97.9 F 73 20 128/78 98 06/13/17 16:02 06/13/17 16:02 06/13/17 16:02 06/13/17 16:02 06/13/17 16:02 - Medications Medications: Current Medications Acetaminophen (Tylenol 325mg Tab) 650 mg PO Q6 PRN PRN Reason: Pain, Mild (1-3) Last Admin: 03/20/17 08:21 Dose: 650 mg Amantadine HCl (Amantadine 100 Mg Cap) 100 mg PO BID [facility] Last Admin: 06/13/17 17:06 Dose: 100 mg Benzocaine/Menthol (Cepacol Sore Throat) 1 morro PO TID PRN PRN Reason: Sore Throat Last Admin: 05/19/17 08:35 Dose: 1 morro Bethanechol Chloride (Urecholine) 50 mg PO TID [facility] Last Admin: 06/13/17 17:06 Dose: 50 mg Carbidopa/Levodopa (Sinemet Cr) 1 tab PO TID [facility] Last Admin: 06/13/17 17:06 Dose: 1 tab Docusate Sodium (Colace) 100 mg PO BID [facility] Last Admin: 06/13/17 17:05 Dose: 100 mg Famotidine (Pepcid) 40 mg PO HS [facility] Last Admin: 06/12/17 21:04 Dose: 40 mg Fluocinonide (Lidex 0.05% Oint) 1 applic TOP BID PRN PRN Reason: Rash Last Admin: 06/12/17 21:11 Dose: 1 applic Nystatin (Nystop Topical Powder) 1 applic TOP TID [facility] Last Admin: 06/13/17 17:06 Dose: 1 applic - Labs Labs: 06/06/17 17:10 06/06/17 17:10 PT 12.6 Seconds (9.8-13.1) 05/18/17 05:30 INR 1.1 (0.9-1.2) 05/18/17 05:30 APTT 34.9 Seconds (25.6-37.1) 05/18/17 05:30 - Respiratory Exam Respiratory Exam: NORMAL BREATHING PATTERN - Cardiovascular Exam Cardiovascular Exam: REGULAR RHYTHM - GI/Abdominal Exam GI & Abdominal Exam: Normal Bowel Sounds Assessment and Plan - Assessment and Plan (Free Text) Assessment: MSA Parkinsons DX Shry Drager Low ext weakness?? Dx progression Fatigue -Meds?? reconsult neuro Disposition?? awaiting transfer to [place] Pt has medical decision making capacity but is financially vulnerable and benefits from legal guardianship Court and Social service involved Pt is [place] WW[place] S/P Bradycardia Hypotenson chronic A-fib Sepsis ? Autonomic dysfunction? Thrombocytopenia chronic DVT prophylaxis SCD (no Lovenox due to thrombocytopenia) R shoulder pain Dec ROM xrays subluxation Ultram PRN PT Recuurent c-diff Gastroentritis? resolved LGI bleed Thrombocytopenia Decubitus ulcer buttocks Increased frequency urinating UA CS PVR all wnl
[2017-06-14] MEDS: Bethanechol 50 MG TAB PO SCH ×3 (08:16→16:23)
[2017-06-14] MEDS: Carbidopa/Levodopa 50/200 CR PO SCH ×3 (08:16→16:23)
--- NOTE | 2017-06-14 22:47 | CP.PCM.PN ---
Subjective - Date & Time of Evaluation Date of Evaluation: 06/14/17 Time of Evaluation: 22:22 - Subjective Subjective: Doing well Objective - Vital Signs/Intake and Output Vital Signs (last 24 hours): Temp Pulse Resp BP Pulse Ox 97.4 F L 65 20 134/74 98 06/14/17 16:09 06/14/17 16:09 06/14/17 16:09 06/14/17 16:09 06/14/17 16:09 - Medications Medications: Current Medications Acetaminophen (Tylenol 325mg Tab) 650 mg PO Q6 PRN PRN Reason: Pain, Mild (1-3) Last Admin: 03/20/17 08:21 Dose: 650 mg Amantadine HCl (Amantadine 100 Mg Cap) 100 mg PO BID [facility] Last Admin: 06/14/17 16:23 Dose: 100 mg Benzocaine/Menthol (Cepacol Sore Throat) 1 morro PO TID PRN PRN Reason: Sore Throat Last Admin: 05/19/17 08:35 Dose: 1 morro Bethanechol Chloride (Urecholine) 50 mg PO TID [facility] Last Admin: 06/14/17 16:23 Dose: 50 mg Carbidopa/Levodopa (Sinemet Cr) 1 tab PO TID [facility] Last Admin: 06/14/17 16:23 Dose: 1 tab Docusate Sodium (Colace) 100 mg PO BID [facility] Last Admin: 06/14/17 16:23 Dose: 100 mg Famotidine (Pepcid) 40 mg PO HS [facility] Last Admin: 06/14/17 21:38 Dose: 40 mg Fluocinonide (Lidex 0.05% Oint) 1 applic TOP BID PRN PRN Reason: Rash Last Admin: 06/12/17 21:11 Dose: 1 applic Nystatin (Nystop Topical Powder) 1 applic TOP TID [facility] Last Admin: 06/14/17 16:22 Dose: 1 applic - Labs Labs: 06/06/17 17:10 06/06/17 17:10 PT 12.6 Seconds (9.8-13.1) 05/18/17 05:30 INR 1.1 (0.9-1.2) 05/18/17 05:30 APTT 34.9 Seconds (25.6-37.1) 05/18/17 05:30 - Respiratory Exam Respiratory Exam: NORMAL BREATHING PATTERN - Cardiovascular Exam Cardiovascular Exam: REGULAR RHYTHM - GI/Abdominal Exam GI & Abdominal Exam: Normal Bowel Sounds Assessment and Plan - Assessment and Plan (Free Text) Assessment: MSA Parkinsons DX Shry Drager Low ext weakness?? Dx progression Fatigue -Meds?? reconsult neuro Disposition?? awaiting transfer to [place] Pt has medical decision making capacity but is financially vulnerable and benefits from legal guardianship Court and Social service involved Pt is [place] S/P Bradycardia Hypotenson chronic A-fib Sepsis ? Autonomic dysfunction? Thrombocytopenia chronic DVT prophylaxis SCD (no Lovenox due to thrombocytopenia) R shoulder pain Dec ROM xrays subluxation Ultram PRN PT Recuurent c-diff Gastroentritis? resolved LGI bleed Thrombocytopenia Decubitus ulcer buttocks Increased frequency urinating UA CS PVR all wnl
[2017-06-15] MEDS: Bethanechol 50 MG TAB PO SCH ×3 (08:31→16:11)
[2017-06-15] MEDS: Carbidopa/Levodopa 50/200 CR PO SCH ×3 (08:31→16:11)
--- NOTE | 2017-06-15 15:27 | CP.PCM.PN ---
Subjective - Date & Time of Evaluation Date of Evaluation: 06/15/17 Time of Evaluation: 22:22 - Subjective Subjective: Doing well Objective - Vital Signs/Intake and Output Vital Signs (last 24 hours): Temp Pulse Resp BP Pulse Ox 97.4 F L 66 18 129/64 99 06/15/17 08:26 06/15/17 08:26 06/15/17 08:26 06/15/17 08:26 06/15/17 08:26 - Medications Medications: Current Medications Acetaminophen (Tylenol 325mg Tab) 650 mg PO Q6 PRN PRN Reason: Pain, Mild (1-3) Last Admin: 03/20/17 08:21 Dose: 650 mg Amantadine HCl (Amantadine 100 Mg Cap) 100 mg PO BID [facility] Last Admin: 06/15/17 08:29 Dose: 100 mg Benzocaine/Menthol (Cepacol Sore Throat) 1 morro PO TID PRN PRN Reason: Sore Throat Last Admin: 05/19/17 08:35 Dose: 1 morro Bethanechol Chloride (Urecholine) 50 mg PO TID [facility] Last Admin: 06/15/17 12:26 Dose: 50 mg Carbidopa/Levodopa (Sinemet Cr) 1 tab PO TID [facility] Last Admin: 06/15/17 12:26 Dose: 1 tab Docusate Sodium (Colace) 100 mg PO BID [facility] Last Admin: 06/15/17 08:29 Dose: 100 mg Famotidine (Pepcid) 40 mg PO HS [facility] Last Admin: 06/14/17 21:38 Dose: 40 mg Fluocinonide (Lidex 0.05% Oint) 1 applic TOP BID PRN PRN Reason: Rash Last Admin: 06/12/17 21:11 Dose: 1 applic Nystatin (Nystop Topical Powder) 1 applic TOP TID [facility] Last Admin: 06/15/17 12:26 Dose: 1 applic - Labs Labs: 06/06/17 17:10 06/06/17 17:10 PT 12.6 Seconds (9.8-13.1) 05/18/17 05:30 INR 1.1 (0.9-1.2) 05/18/17 05:30 APTT 34.9 Seconds (25.6-37.1) 05/18/17 05:30 - Respiratory Exam Respiratory Exam: NORMAL BREATHING PATTERN - Cardiovascular Exam Cardiovascular Exam: REGULAR RHYTHM - GI/Abdominal Exam GI & Abdominal Exam: Normal Bowel Sounds Assessment and Plan - Assessment and Plan (Free Text) Assessment: MSA Parkinsons DX Shry Drager Low ext weakness?? Dx progression Fatigue -Meds?? reconsult neuro Disposition?? awaiting transfer to [place] Pt has medical decision making capacity but is financially vulnerable and benefits from legal guardianship Court and Social service involved Pt is [place] S/P Bradycardia Hypotenson chronic A-fib Sepsis ? Autonomic dysfunction? Thrombocytopenia chronic DVT prophylaxis SCD (no Lovenox due to thrombocytopenia) R shoulder pain Dec ROM xrays subluxation Ultram PRN PT Recuurent c-diff Gastroentritis? resolved LGI bleed Thrombocytopenia Decubitus ulcer buttocks Increased frequency urinating UA CS PVR all wnl
[2017-06-16] MEDS: Bethanechol 50 MG TAB PO SCH ×3 (08:31→16:58)
[2017-06-16] MEDS: Carbidopa/Levodopa 50/200 CR PO SCH ×3 (08:31→16:58)
--- NOTE | 2017-06-16 21:01 | CP.PCM.PN ---
Subjective - Date & Time of Evaluation Date of Evaluation: 06/16/17 Time of Evaluation: 22:22 - Subjective Subjective: Above noted Objective - Vital Signs/Intake and Output Vital Signs (last 24 hours): Temp Pulse Resp BP Pulse Ox 97.7 F 85 20 138/67 99 06/16/17 16:25 06/16/17 16:25 06/16/17 16:25 06/16/17 16:25 06/16/17 16:25 - Medications Medications: Current Medications Acetaminophen (Tylenol 325mg Tab) 650 mg PO Q6 PRN PRN Reason: Pain, Mild (1-3) Last Admin: 03/20/17 08:21 Dose: 650 mg Amantadine HCl (Amantadine 100 Mg Cap) 100 mg PO BID [facility] Last Admin: 06/16/17 16:58 Dose: 100 mg Benzocaine/Menthol (Cepacol Sore Throat) 1 morro PO TID PRN PRN Reason: Sore Throat Last Admin: 05/19/17 08:35 Dose: 1 morro Bethanechol Chloride (Urecholine) 50 mg PO TID [facility] Last Admin: 06/16/17 16:58 Dose: 50 mg Carbidopa/Levodopa (Sinemet Cr) 1 tab PO TID [facility] Last Admin: 06/16/17 16:58 Dose: 1 tab Docusate Sodium (Colace) 100 mg PO BID [facility] Last Admin: 06/16/17 16:58 Dose: 100 mg Famotidine (Pepcid) 40 mg PO HS [facility] Last Admin: 06/15/17 22:01 Dose: 40 mg Fluocinonide (Lidex 0.05% Oint) 1 applic TOP BID PRN PRN Reason: Rash Last Admin: 06/15/17 16:10 Dose: 1 applic Nystatin (Nystop Topical Powder) 1 applic TOP TID [facility] Last Admin: 06/16/17 16:58 Dose: 1 applic - Labs Labs: 06/06/17 17:10 06/06/17 17:10 PT 12.6 Seconds (9.8-13.1) 05/18/17 05:30 INR 1.1 (0.9-1.2) 05/18/17 05:30 APTT 34.9 Seconds (25.6-37.1) 05/18/17 05:30 - Respiratory Exam Respiratory Exam: NORMAL BREATHING PATTERN - Cardiovascular Exam Cardiovascular Exam: REGULAR RHYTHM - GI/Abdominal Exam GI & Abdominal Exam: Normal Bowel Sounds Assessment and Plan - Assessment and Plan (Free Text) Assessment: MSA Parkinsons DX Shry Drager Low ext weakness?? Dx progression Fatigue -Meds?? reconsult neuro Disposition?? awaiting transfer to [place] Pt has medical decision making capacity but is financially vulnerable and benefits from legal guardianship Court and Social service involved Pt is [place] WW[employer] S/P Bradycardia Hypotenson chronic A-fib Sepsis ? Autonomic dysfunction? Thrombocytopenia chronic DVT prophylaxis SCD (no Lovenox due to thrombocytopenia) R shoulder pain Dec ROM xrays subluxation Ultram PRN PT Recuurent c-diff Gastroentritis? resolved LGI bleed Thrombocytopenia Decubitus ulcer buttocks Increased frequency urinating UA CS PVR all wnl
[2017-06-17] MEDS: Carbidopa/Levodopa 50/200 CR PO SCH ×3 (09:46→17:25)
[2017-06-17] MEDS: Bethanechol 50 MG TAB PO SCH ×3 (09:46→17:25)
[2017-06-17] MEDS: Benzocaine/Menthol (Cepacol) Lozenge PO PRN (16:20)
--- NOTE | 2017-06-17 17:02 | CP.PCM.PN ---
Subjective - Date & Time of Evaluation Date of Evaluation: 06/17/17 Time of Evaluation: 22:22 - Subjective Subjective: Above noted Objective - Vital Signs/Intake and Output Vital Signs (last 24 hours): Temp Pulse Resp BP Pulse Ox 97.8 F 71 20 104/70 98 06/17/17 16:07 06/17/17 16:07 06/17/17 16:07 06/17/17 16:07 06/17/17 16:07 - Medications Medications: Current Medications Acetaminophen (Tylenol 325mg Tab) 650 mg PO Q6 PRN PRN Reason: Pain, Mild (1-3) Last Admin: 03/20/17 08:21 Dose: 650 mg Amantadine HCl (Amantadine 100 Mg Cap) 100 mg PO BID [facility] Last Admin: 06/17/17 09:44 Dose: 100 mg Benzocaine/Menthol (Cepacol Sore Throat) 1 morro PO TID PRN PRN Reason: Sore Throat Last Admin: 06/17/17 16:20 Dose: 1 morro Bethanechol Chloride (Urecholine) 50 mg PO TID [facility] Last Admin: 06/17/17 12:42 Dose: 50 mg Carbidopa/Levodopa (Sinemet Cr) 1 tab PO TID [facility] Last Admin: 06/17/17 12:42 Dose: 1 tab Docusate Sodium (Colace) 100 mg PO BID [facility] Last Admin: 06/17/17 09:44 Dose: 100 mg Famotidine (Pepcid) 40 mg PO HS [facility] Last Admin: 06/16/17 21:32 Dose: 40 mg Fluocinonide (Lidex 0.05% Oint) 1 applic TOP BID PRN PRN Reason: Rash Last Admin: 06/15/17 16:10 Dose: 1 applic Nystatin (Nystop Topical Powder) 1 applic TOP TID [facility] Last Admin: 06/17/17 12:42 Dose: 1 applic - Labs Labs: 06/06/17 17:10 06/06/17 17:10 PT 12.6 Seconds (9.8-13.1) 05/18/17 05:30 INR 1.1 (0.9-1.2) 05/18/17 05:30 APTT 34.9 Seconds (25.6-37.1) 05/18/17 05:30 - Respiratory Exam Respiratory Exam: NORMAL BREATHING PATTERN - Cardiovascular Exam Cardiovascular Exam: REGULAR RHYTHM - GI/Abdominal Exam GI & Abdominal Exam: Normal Bowel Sounds Assessment and Plan - Assessment and Plan (Free Text) Assessment: MSA Parkinsons DX Shry Drager Low ext weakness?? Dx progression Fatigue -Meds?? reconsult neuro Disposition?? awaiting transfer to [place] Pt has medical decision making capacity but is financially vulnerable and benefits from legal guardianship Court and Social service involved Pt is [place] S/P Bradycardia Hypotenson chronic A-fib Sepsis ? Autonomic dysfunction? Thrombocytopenia chronic DVT prophylaxis SCD (no Lovenox due to thrombocytopenia) R shoulder pain Dec ROM xrays subluxation Ultram PRN PT Recuurent c-diff Gastroentritis? resolved LGI bleed Thrombocytopenia Decubitus ulcer buttocks Increased frequency urinating UA CS PVR all wnl
[2017-06-18] MEDS: Bethanechol 50 MG TAB PO SCH ×3 (10:22→17:28)
[2017-06-18] MEDS: Carbidopa/Levodopa 50/200 CR PO SCH ×3 (10:22→17:29)
--- NOTE | 2017-06-18 18:26 | CP.PCM.PN ---
Subjective - Date & Time of Evaluation Date of Evaluation: 06/18/17 Time of Evaluation: 22:22 - Subjective Subjective: Above noted Objective - Vital Signs/Intake and Output Vital Signs (last 24 hours): Temp Pulse Resp BP Pulse Ox 98.1 F 76 20 98/55 L 97 06/18/17 16:56 06/18/17 16:56 06/18/17 16:56 06/18/17 16:56 06/18/17 16:56 - Medications Medications: Current Medications Acetaminophen (Tylenol 325mg Tab) 650 mg PO Q6 PRN PRN Reason: Pain, Mild (1-3) Last Admin: 03/20/17 08:21 Dose: 650 mg Amantadine HCl (Amantadine 100 Mg Cap) 100 mg PO BID [facility] Last Admin: 06/18/17 17:28 Dose: 100 mg Benzocaine/Menthol (Cepacol Sore Throat) 1 morro PO TID PRN PRN Reason: Sore Throat Last Admin: 06/17/17 16:20 Dose: 1 morro Bethanechol Chloride (Urecholine) 50 mg PO TID [facility] Last Admin: 06/18/17 17:28 Dose: 50 mg Carbidopa/Levodopa (Sinemet Cr) 1 tab PO TID [facility] Last Admin: 06/18/17 17:29 Dose: 1 tab Docusate Sodium (Colace) 100 mg PO BID [facility] Last Admin: 06/18/17 17:28 Dose: 100 mg Famotidine (Pepcid) 40 mg PO HS [facility] Last Admin: 06/17/17 21:41 Dose: 40 mg Fluocinonide (Lidex 0.05% Oint) 1 applic TOP BID PRN PRN Reason: Rash Last Admin: 06/15/17 16:10 Dose: 1 applic Nystatin (Nystop Topical Powder) 1 applic TOP TID [facility] Last Admin: 06/18/17 17:29 Dose: 1 applic - Labs Labs: 06/06/17 17:10 06/06/17 17:10 PT 12.6 Seconds (9.8-13.1) 05/18/17 05:30 INR 1.1 (0.9-1.2) 05/18/17 05:30 APTT 34.9 Seconds (25.6-37.1) 05/18/17 05:30 - Respiratory Exam Respiratory Exam: NORMAL BREATHING PATTERN - Cardiovascular Exam Cardiovascular Exam: REGULAR RHYTHM - GI/Abdominal Exam GI & Abdominal Exam: Normal Bowel Sounds Assessment and Plan - Assessment and Plan (Free Text) Assessment: MSA Parkinsons DX Shry Drager Low ext weakness?? Dx progression Fatigue -Meds?? reconsult neuro Disposition?? awaiting transfer to [place] Pt has medical decision making capacity but is financially vulnerable and benefits from legal guardianship Court and Social service involved Pt is [place] S/P Bradycardia Hypotenson chronic A-fib Sepsis ? Autonomic dysfunction? Thrombocytopenia chronic DVT prophylaxis SCD (no Lovenox due to thrombocytopenia) R shoulder pain Dec ROM xrays subluxation Ultram PRN PT Recuurent c-diff Gastroentritis? resolved LGI bleed Thrombocytopenia Decubitus ulcer buttocks Increased frequency urinating UA CS PVR all wnl
[2017-06-19] MEDS: Benzocaine/Menthol (Cepacol) Lozenge PO PRN ×2 (06:56→17:15)
[2017-06-19] MEDS: Carbidopa/Levodopa 50/200 CR PO SCH ×3 (08:23→16:20)
[2017-06-19] MEDS: Bethanechol 50 MG TAB PO SCH ×3 (08:23→16:20)
[2017-06-19 08:59] LABS: HEMOGLOBIN 12.9 g/dL (12.0-18.0); MEAN CELL VOLUME 94.5 fl (80.0-94.0); MEAN CORPUSCULAR HEMOGLOBIN 31.5 pg (27.0-31.0); MEAN CORPUSCULAR HGB CONC 33.3 g/dL (33.0-37.0); RBC 4.1 Mil/uL (4.40-5.90); RED CELL DISTRIBUTION WIDTH 13.4 % (11.5-14.5); WHITE BLOOD COUNT 4.6 K/uL (4.8-10.8)
[2017-06-19 09:06] LABS: BLOOD UREA NITROGEN 21 mg/dl (9-20); CALCIUM 8.4 mg/dL (8.4-10.2); GFR AFRICAN-AMERICAN > 60; GFR NON-AFRICAN AMERICAN > 60
--- NOTE | 2017-06-19 11:23 | RAD ---
HISTORY: cough COMPARISON: No prior. FINDINGS: LUNGS: Inspiratory volume appears diminished, crowding of the bronchovascular markings. No definitive infiltrate appreciated bilaterally. PLEURA: Trace thickening seen the minor fissure with no significant pleural effusion appreciated bilaterally. No pneumothorax apparent. CARDIOVASCULAR: Cardiomediastinal silhouette appears stable including aortic ectasis. The bases somewhat less rotated towards the the patient still not fully AP in position. OSSEOUS STRUCTURES: No significant abnormalities. VISUALIZED UPPER ABDOMEN: Normal. OTHER FINDINGS: None. IMPRESSION: No definitive infiltrate or prominent pleural effusion bilaterally. Trace fluid is seen in the minor fissure. Diminished inspiratory volume is identified.
--- NOTE | 2017-06-19 20:47 | CP.PCM.PN ---
Subjective - Date & Time of Evaluation Date of Evaluation: 06/19/17 Time of Evaluation: 22:22 - Subjective Subjective: Sleeping Objective - Vital Signs/Intake and Output Vital Signs (last 24 hours): Temp Pulse Resp BP Pulse Ox 97.7 F 74 20 140/83 99 06/19/17 16:12 06/19/17 16:12 06/19/17 16:12 06/19/17 16:12 06/19/17 16:12 - Medications Medications: Current Medications Acetaminophen (Tylenol 325mg Tab) 650 mg PO Q6 PRN PRN Reason: Pain, Mild (1-3) Last Admin: 03/20/17 08:21 Dose: 650 mg Amantadine HCl (Amantadine 100 Mg Cap) 100 mg PO BID [facility] Last Admin: 06/19/17 16:20 Dose: 100 mg Benzocaine/Menthol (Cepacol Sore Throat) 1 morro PO TID PRN PRN Reason: Sore Throat Last Admin: 06/19/17 17:15 Dose: 1 morro Bethanechol Chloride (Urecholine) 50 mg PO TID [facility] Last Admin: 06/19/17 16:20 Dose: 50 mg Carbidopa/Levodopa (Sinemet Cr) 1 tab PO TID [facility] Last Admin: 06/19/17 16:20 Dose: 1 tab Docusate Sodium (Colace) 100 mg PO BID [facility] Last Admin: 06/19/17 16:20 Dose: 100 mg Famotidine (Pepcid) 40 mg PO HS [facility] Last Admin: 06/18/17 21:13 Dose: 40 mg Fluocinonide (Lidex 0.05% Oint) 1 applic TOP BID PRN PRN Reason: Rash Last Admin: 06/15/17 16:10 Dose: 1 applic Nystatin (Nystop Topical Powder) 1 applic TOP TID [facility] Last Admin: 06/19/17 16:20 Dose: 1 applic - Labs Labs: 06/19/17 08:35 06/19/17 08:35 PT 12.6 Seconds (9.8-13.1) 05/18/17 05:30 INR 1.1 (0.9-1.2) 05/18/17 05:30 APTT 34.9 Seconds (25.6-37.1) 05/18/17 05:30 - Respiratory Exam Respiratory Exam: NORMAL BREATHING PATTERN - Cardiovascular Exam Cardiovascular Exam: REGULAR RHYTHM - GI/Abdominal Exam GI & Abdominal Exam: Normal Bowel Sounds Assessment and Plan - Assessment and Plan (Free Text) Assessment: MSA Parkinsons DX Shry Drager Low ext weakness?? Dx progression Fatigue -Meds?? reconsult neuro Disposition?? awaiting transfer to [place] Pt has medical decision making capacity but is financially vulnerable and benefits from legal guardianship Court and Social service involved Pt is [place] WW[place] S/P Bradycardia Hypotenson chronic A-fib Sepsis ? Autonomic dysfunction? Thrombocytopenia chronic DVT prophylaxis SCD (no Lovenox due to thrombocytopenia) R shoulder pain Dec ROM xrays subluxation Ultram PRN PT Recuurent c-diff Gastroentritis? resolved LGI bleed Thrombocytopenia Decubitus ulcer buttocks Increased frequency urinating UA CS PVR all wnl
[2017-06-20] MEDS: Bethanechol 50 MG TAB PO SCH ×3 (09:37→17:35)
[2017-06-20] MEDS: Carbidopa/Levodopa 50/200 CR PO SCH ×3 (09:37→17:35)
--- NOTE | 2017-06-20 17:21 | CP.PCM.PN ---
Subjective - Date & Time of Evaluation Date of Evaluation: 06/20/17 Time of Evaluation: 22:22 - Subjective Subjective: Above noted Objective - Vital Signs/Intake and Output Vital Signs (last 24 hours): Temp Pulse Resp BP Pulse Ox 98.9 F 85 20 106/61 97 06/20/17 16:27 06/20/17 16:27 06/20/17 16:27 06/20/17 16:27 06/20/17 16:27 - Medications Medications: Current Medications Acetaminophen (Tylenol 325mg Tab) 650 mg PO Q6 PRN PRN Reason: Pain, Mild (1-3) Last Admin: 03/20/17 08:21 Dose: 650 mg Amantadine HCl (Amantadine 100 Mg Cap) 100 mg PO BID [facility] Last Admin: 06/20/17 09:35 Dose: 100 mg Benzocaine/Menthol (Cepacol Sore Throat) 1 morro PO TID PRN PRN Reason: Sore Throat Last Admin: 06/19/17 17:15 Dose: 1 morro Bethanechol Chloride (Urecholine) 50 mg PO TID [facility] Last Admin: 06/20/17 12:41 Dose: 50 mg Carbidopa/Levodopa (Sinemet Cr) 1 tab PO TID [facility] Last Admin: 06/20/17 12:41 Dose: 1 tab Docusate Sodium (Colace) 100 mg PO BID [facility] Last Admin: 06/20/17 09:36 Dose: Not Given Famotidine (Pepcid) 40 mg PO HS [facility] Last Admin: 06/19/17 21:00 Dose: 40 mg Fluocinonide (Lidex 0.05% Oint) 1 applic TOP BID PRN PRN Reason: Rash Last Admin: 06/15/17 16:10 Dose: 1 applic Nystatin (Nystop Topical Powder) 1 applic TOP TID [facility] Last Admin: 06/20/17 12:41 Dose: 1 applic - Labs Labs: 06/19/17 08:35 06/19/17 08:35 PT 12.6 Seconds (9.8-13.1) 05/18/17 05:30 INR 1.1 (0.9-1.2) 05/18/17 05:30 APTT 34.9 Seconds (25.6-37.1) 05/18/17 05:30 - Respiratory Exam Respiratory Exam: NORMAL BREATHING PATTERN - Cardiovascular Exam Cardiovascular Exam: REGULAR RHYTHM - GI/Abdominal Exam GI & Abdominal Exam: Normal Bowel Sounds Assessment and Plan - Assessment and Plan (Free Text) Assessment: MSA Parkinsons DX Shry Drager Low ext weakness?? Dx progression Fatigue -Meds?? reconsult neuro Disposition?? awaiting transfer to [place] Pt has medical decision making capacity but is financially vulnerable and benefits from legal guardianship Court and Social service involved Pt is [place] S/P Bradycardia Hypotenson chronic A-fib Sepsis ? Autonomic dysfunction? Thrombocytopenia chronic DVT prophylaxis SCD (no Lovenox due to thrombocytopenia) R shoulder pain Dec ROM xrays subluxation Ultram PRN PT Recuurent c-diff Gastroentritis? resolved LGI bleed Thrombocytopenia Decubitus ulcer buttocks Increased frequency urinating UA CS PVR all wnl
[2017-06-21] MEDS: Bethanechol 50 MG TAB PO SCH ×3 (08:18→17:02)
[2017-06-21] MEDS: Carbidopa/Levodopa 50/200 CR PO SCH ×3 (08:19→17:02)
[2017-06-21] MEDS: Ciprofloxacin/Dexamethasone OTIC SUSP AD SCH (17:01)
--- NOTE | 2017-06-21 20:52 | CP.PCM.PN ---
Subjective - Date & Time of Evaluation Date of Evaluation: 06/21/17 Time of Evaluation: 22:22 - Subjective Subjective: Above noted Objective - Vital Signs/Intake and Output Vital Signs (last 24 hours): Temp Pulse Resp BP Pulse Ox 99 F 78 20 112/62 95 06/21/17 17:00 06/21/17 17:00 06/21/17 17:00 06/21/17 17:00 06/21/17 17:00 - Medications Medications: Current Medications Acetaminophen (Tylenol 325mg Tab) 650 mg PO Q6 PRN PRN Reason: Pain, Mild (1-3) Last Admin: 06/21/17 18:54 Dose: 650 mg Amantadine HCl (Amantadine 100 Mg Cap) 100 mg PO BID [facility] Last Admin: 06/21/17 17:02 Dose: 100 mg Benzocaine/Menthol (Cepacol Sore Throat) 1 morro PO TID PRN PRN Reason: Sore Throat Last Admin: 06/19/17 17:15 Dose: 1 morro Bethanechol Chloride (Urecholine) 50 mg PO TID [facility] Last Admin: 06/21/17 17:02 Dose: 50 mg Carbidopa/Levodopa (Sinemet Cr) 1 tab PO TID [facility] Last Admin: 06/21/17 17:02 Dose: 1 tab Ciprofloxacin/Dexamethasone (Ciprodex Otic) 5 drop AD BID [facility] Stop: 06/28/17 17:01 Last Admin: 06/21/17 17:01 Dose: 5 drop Docusate Sodium (Colace) 100 mg PO BID [facility] Last Admin: 06/21/17 17:02 Dose: 100 mg Famotidine (Pepcid) 40 mg PO HS [facility] Last Admin: 06/20/17 21:53 Dose: 40 mg Fluocinonide (Lidex 0.05% Oint) 1 applic TOP BID PRN PRN Reason: Rash Last Admin: 06/15/17 16:10 Dose: 1 applic Nystatin (Nystop Topical Powder) 1 applic TOP TID [facility] Last Admin: 06/21/17 17:01 Dose: 1 applic - Labs Labs: 06/19/17 08:35 06/19/17 08:35 PT 12.6 Seconds (9.8-13.1) 05/18/17 05:30 INR 1.1 (0.9-1.2) 05/18/17 05:30 APTT 34.9 Seconds (25.6-37.1) 05/18/17 05:30 - Respiratory Exam Respiratory Exam: NORMAL BREATHING PATTERN - Cardiovascular Exam Cardiovascular Exam: REGULAR RHYTHM - GI/Abdominal Exam GI & Abdominal Exam: Normal Bowel Sounds Assessment and Plan - Assessment and Plan (Free Text) Assessment: MSA Parkinsons DX Shry Drager Low ext weakness?? Dx progression Fatigue -Meds?? reconsult neuro Disposition?? awaiting transfer to [place] Pt has medical decision making capacity but is financially vulnerable and benefits from legal guardianship Court and Social service involved Pt is [place] WW[place] S/P Bradycardia Hypotenson chronic A-fib Sepsis ? Autonomic dysfunction? Thrombocytopenia chronic DVT prophylaxis SCD (no Lovenox due to thrombocytopenia) R shoulder pain Dec ROM xrays subluxation Ultram PRN PT Recuurent c-diff Gastroentritis? resolved LGI bleed Thrombocytopenia Decubitus ulcer buttocks Increased frequency urinating UA CS PVR all wnl
[2017-06-22] MEDS: Ciprofloxacin/Dexamethasone OTIC SUSP AD SCH ×2 (08:24→16:19)
[2017-06-22] MEDS: Bethanechol 50 MG TAB PO SCH ×3 (08:25→16:20)
[2017-06-22] MEDS: Carbidopa/Levodopa 50/200 CR PO SCH ×3 (08:26→16:20)
--- NOTE | 2017-06-22 19:28 | CP.PCM.PN ---
Subjective - Date & Time of Evaluation Date of Evaluation: 06/22/17 Time of Evaluation: 22:22 - Subjective Subjective: Above noted Objective - Vital Signs/Intake and Output Vital Signs (last 24 hours): Temp Pulse Resp BP Pulse Ox 97.6 F 76 20 126/70 95 06/22/17 15:52 06/22/17 15:52 06/22/17 15:52 06/22/17 15:52 06/22/17 15:52 - Medications Medications: Current Medications Acetaminophen (Tylenol 325mg Tab) 650 mg PO Q6 PRN PRN Reason: Pain, Mild (1-3) Last Admin: 06/21/17 18:54 Dose: 650 mg Amantadine HCl (Amantadine 100 Mg Cap) 100 mg PO BID [facility] Last Admin: 06/22/17 16:18 Dose: 100 mg Benzocaine/Menthol (Cepacol Sore Throat) 1 morro PO TID PRN PRN Reason: Sore Throat Last Admin: 06/19/17 17:15 Dose: 1 morro Bethanechol Chloride (Urecholine) 50 mg PO TID [facility] Last Admin: 06/22/17 16:20 Dose: 50 mg Carbidopa/Levodopa (Sinemet Cr) 1 tab PO TID [facility] Last Admin: 06/22/17 16:20 Dose: 1 tab Ciprofloxacin/Dexamethasone (Ciprodex Otic) 5 drop AD BID [facility] Stop: 06/28/17 17:01 Last Admin: 06/22/17 16:19 Dose: 5 drop Docusate Sodium (Colace) 100 mg PO BID [facility] Last Admin: 06/22/17 16:19 Dose: 100 mg Famotidine (Pepcid) 40 mg PO HS [facility] Last Admin: 06/21/17 21:23 Dose: 40 mg Fluocinonide (Lidex 0.05% Oint) 1 applic TOP BID PRN PRN Reason: Rash Last Admin: 06/15/17 16:10 Dose: 1 applic Nystatin (Nystop Topical Powder) 1 applic TOP TID [facility] Last Admin: 06/22/17 16:19 Dose: 1 applic - Labs Labs: 06/19/17 08:35 06/19/17 08:35 PT 12.6 Seconds (9.8-13.1) 05/18/17 05:30 INR 1.1 (0.9-1.2) 05/18/17 05:30 APTT 34.9 Seconds (25.6-37.1) 05/18/17 05:30 - Respiratory Exam Respiratory Exam: NORMAL BREATHING PATTERN - Cardiovascular Exam Cardiovascular Exam: REGULAR RHYTHM - GI/Abdominal Exam GI & Abdominal Exam: Normal Bowel Sounds Assessment and Plan - Assessment and Plan (Free Text) Assessment: MSA Parkinsons DX Shry Drager Low ext weakness?? Dx progression Fatigue -Meds?? reconsult neuro Disposition?? awaiting transfer to [place] Pt has medical decision making capacity but is financially vulnerable and benefits from legal guardianship Court and Social service involved Pt is [place] [employer] S/P Bradycardia Hypotenson chronic A-fib Sepsis ? Autonomic dysfunction? Thrombocytopenia chronic DVT prophylaxis SCD (no Lovenox due to thrombocytopenia) R shoulder pain Dec ROM xrays subluxation Ultram PRN PT Recuurent c-diff Gastroentritis? resolved LGI bleed Thrombocytopenia Decubitus ulcer buttocks Increased frequency urinating UA CS PVR all wnl
[2017-06-23] MEDS: Ciprofloxacin/Dexamethasone OTIC SUSP AD SCH ×2 (09:03→16:48)
[2017-06-23] MEDS: Carbidopa/Levodopa 50/200 CR PO SCH ×3 (09:05→16:49)
[2017-06-23] MEDS: Bethanechol 50 MG TAB PO SCH ×3 (09:06→16:49)
[2017-06-23] MEDS: guaiFENesin 100 mg/5 ml Syrup UD PO PRN (16:50)
--- NOTE | 2017-06-23 19:59 | CP.PCM.PN ---
Subjective - Date & Time of Evaluation Date of Evaluation: 06/23/17 Time of Evaluation: 22:22 - Subjective Subjective: Coughing Objective - Vital Signs/Intake and Output Vital Signs (last 24 hours): Temp Pulse Resp BP Pulse Ox 98.6 F 74 15 103/60 98 06/23/17 17:00 06/23/17 17:00 06/23/17 17:00 06/23/17 17:00 06/23/17 17:00 - Medications Medications: Current Medications Acetaminophen (Tylenol 325mg Tab) 650 mg PO Q6 PRN PRN Reason: Pain, Mild (1-3) Last Admin: 06/21/17 18:54 Dose: 650 mg Amantadine HCl (Amantadine 100 Mg Cap) 100 mg PO BID [facility] Last Admin: 06/23/17 16:47 Dose: 100 mg Benzocaine/Menthol (Cepacol Sore Throat) 1 morro PO TID PRN PRN Reason: Sore Throat Last Admin: 06/19/17 17:15 Dose: 1 morro Bethanechol Chloride (Urecholine) 50 mg PO TID [facility] Last Admin: 06/23/17 16:49 Dose: 50 mg Carbidopa/Levodopa (Sinemet Cr) 1 tab PO TID [facility] Last Admin: 06/23/17 16:49 Dose: 1 tab Ciprofloxacin/Dexamethasone (Ciprodex Otic) 5 drop AD BID [facility] Stop: 06/28/17 17:01 Last Admin: 06/23/17 16:48 Dose: 5 drop Docusate Sodium (Colace) 100 mg PO BID [facility] Last Admin: 06/23/17 16:48 Dose: 100 mg Famotidine (Pepcid) 40 mg PO HS [facility] Last Admin: 06/22/17 21:35 Dose: 40 mg Fluocinonide (Lidex 0.05% Oint) 1 applic TOP BID PRN PRN Reason: Rash Last Admin: 06/15/17 16:10 Dose: 1 applic Guaifenesin (Robitussin) 100 mg PO Q6 PRN PRN Reason: Cough Last Admin: 06/23/17 16:50 Dose: 100 mg Nystatin (Nystop Topical Powder) 1 applic TOP TID [facility] Last Admin: 06/23/17 16:48 Dose: 1 applic - Labs Labs: 06/19/17 08:35 06/19/17 08:35 PT 12.6 Seconds (9.8-13.1) 05/18/17 05:30 INR 1.1 (0.9-1.2) 05/18/17 05:30 APTT 34.9 Seconds (25.6-37.1) 05/18/17 05:30 - Respiratory Exam Respiratory Exam: NORMAL BREATHING PATTERN - Cardiovascular Exam Cardiovascular Exam: REGULAR RHYTHM - GI/Abdominal Exam GI & Abdominal Exam: Normal Bowel Sounds Assessment and Plan - Assessment and Plan (Free Text) Assessment: Coughing Wheezing COPD CXR IVF Bronchodilators Steroids MSA Parkinsons DX Shry Drager Low ext weakness?? Dx progression Fatigue -Meds?? reconsult neuro Disposition?? awaiting transfer to [place] Pt has medical decision making capacity but is financially vulnerable and benefits from legal guardianship Court and Social service involved Pt is [place] S/P Bradycardia Hypotenson chronic A-fib Sepsis ? Autonomic dysfunction? Thrombocytopenia chronic DVT prophylaxis SCD (no Lovenox due to thrombocytopenia) R shoulder pain Dec ROM xrays subluxation Ultram PRN PT Recuurent c-diff Gastroentritis? resolved LGI bleed Thrombocytopenia Decubitus ulcer buttocks Increased frequency urinating UA CS PVR all wnl
[2017-06-23] MEDS: Dextrose 5%/0.45% NS 1,000 ML IV SCH (20:45)
[2017-06-23] MEDS: Albuterol-Ipratrop 3 mg / 0.5 (3 ml) UD INH SCH (21:07)
[2017-06-24] MEDS: Albuterol-Ipratrop 3 mg / 0.5 (3 ml) UD INH SCH ×8 (00:38→19:17)
[2017-06-24] MEDS: guaiFENesin 100 mg/5 ml Syrup UD PO PRN (05:40)
[2017-06-24] MEDS: Ciprofloxacin/Dexamethasone OTIC SUSP AD SCH ×2 (08:58→16:56)
[2017-06-24] MEDS: Bethanechol 50 MG TAB PO SCH ×3 (09:01→16:58)
[2017-06-24] MEDS: Carbidopa/Levodopa 50/200 CR PO SCH ×3 (09:01→16:58)
--- NOTE | 2017-06-24 11:28 | CP.PCM.CON ---
History of Present Illness - History of Present Illness History of Present Illness: This 87-year-old white male has been hospitalized for an extended period of time for nonrespiratory related illness. He has been mostly confined to bed although he does spend periods of time seated in a bedside chair. He has recently had some episodes of coughing which has been productive and associated bronchospasm. He does claim to have a sensation of shortness of breath. He has been seen on consultation in the past because of pneumonia and atelectasis and had been treated successfully at that time. Past Patient History - Tetanus Immunizations Tetanus Immunization: Unknown - Past Medical History & Family History Past Medical History?: Yes - Past Social History Smoking Status: Never Smoked Chewing Tobacco Use: No Cigar Use: No Alcohol: None Drugs: Denies Home Situation {Lives}: Other (Hospital for almost 2 years) - CARDIAC Hx Atrial Fibrillation: Yes Hx Cardia Arrhythmia: Yes Hx Hypotension: Yes - PULMONARY Hx Bronchitis: Yes (With bronchospasm) Hx Pneumonia: Yes Other/Comment: Subsegmental atelectasis in the lung bases secondary to inspissated mucoid secretions. - NEUROLOGICAL HX Cerebrovascular Accident: No Hx Parkinson's Disease: Yes Other/Comment: Shy-Drager syndrome - HEENT Hx Glaucoma: Yes - RENAL Hx Chronic Kidney Disease: No - ENDOCRINE/METABOLIC Hx Endocrine Disorders: No - HEMATOLOGICAL/ONCOLOGICAL Hx Blood Disorders: No Hx Human Immunodeficiency Virus (HIV): No - INTEGUMENTARY Hx Cellulitis: Yes (right leg) - MUSCULOSKELETAL/RHEUMATOLOGICAL Hx Musculoskeletal Disorders: No - GASTROINTESTINAL Hx Gastrointestinal Disorders: No - GENITOURINARY/GYNECOLOGICAL Hx Genitourinary Disorders: No - PSYCHIATRIC Hx Anxiety: Yes Hx Depression: Yes Other/Comment: Cognitive decline. - SURGICAL HISTORY Hx Appendectomy: Yes Hx Tonsillectomy: Yes - ANESTHESIA Hx Anesthesia: Yes Hx Anesthesia Reactions: No Hx Malignant Hyperthermia: No Meds Allergies/Adverse Reactions: Allergies Allergy/AdvReac Type Severity Reaction Status Date / Time Penicillins Allergy Hives Verified 08/01/15 06:34 - Medications Medications: Current Medications Acetaminophen (Tylenol 325mg Tab) 650 mg PO Q6 PRN PRN Reason: Pain, Mild (1-3) Last Admin: 06/21/17 18:54 Dose: 650 mg Albuterol/Ipratropium (Duoneb 3 Mg/0.5 Mg (3 Ml) Ud) 3 ml INH RQ4 TU Last Admin: 06/24/17 11:12 Dose: Not Given Amantadine HCl (Amantadine 100 Mg Cap) 100 mg PO BID [facility] Last Admin: 06/24/17 08:58 Dose: 100 mg Benzocaine/Menthol (Cepacol Sore Throat) 1 morro PO TID PRN PRN Reason: Sore Throat Last Admin: 06/19/17 17:15 Dose: 1 morro Bethanechol Chloride (Urecholine) 50 mg PO TID [facility] Last Admin: 06/24/17 09:01 Dose: 50 mg Carbidopa/Levodopa (Sinemet Cr) 1 tab PO TID [facility] Last Admin: 06/24/17 09:01 Dose: 1 tab Ciprofloxacin/Dexamethasone (Ciprodex Otic) 5 drop AD BID [facility] Stop: 06/28/17 17:01 Last Admin: 06/24/17 08:58 Dose: 5 drop Docusate Sodium (Colace) 100 mg PO BID [facility] Last Admin: 06/24/17 08:59 Dose: 100 mg Famotidine (Pepcid) 40 mg PO HS [facility] Last Admin: 06/23/17 23:00 Dose: 40 mg Fluocinonide (Lidex 0.05% Oint) 1 applic TOP BID PRN PRN Reason: Rash Last Admin: 06/15/17 16:10 Dose: 1 applic Guaifenesin (Robitussin) 100 mg PO Q6 PRN PRN Reason: Cough Last Admin: 06/24/17 05:40 Dose: 100 mg Dextrose/Sodium Chloride (Dextrose 5%/0.45% Ns 1000 Ml) 1,000 mls @ 60 mls/hr IV .[id number] [facility] Stop: 06/24/17 20:14 Last Admin: 06/23/17 20:45 Dose: 60 mls/hr Methylprednisolone (Solu-Medrol) 60 mg IV Q8H [facility] Last Admin: 06/24/17 05:40 Dose: 60 mg Nystatin (Nystop Topical Powder) 1 applic TOP TID [facility] Last Admin: 06/24/17 09:00 Dose: 1 applic Physical Exam - Additional Findings Additional findings: Lying in bed, appears semi-comfortable. Claims he has been coughing non-productively. The neck is supple and trachea is midline. The pharynx is pink and mucous membranes are moist. Nasal passages are patent bilaterally. There is no cyanosis. There is no dullness on percussion of the anterior chest wall. No subcutaneous emphysema is palpated. Breath sounds are diminished but present bilaterally. No areas of bronchial breathing or wheezing. Scattered dry rales are heard posteriorly in the dependent zones. Results - Vital Signs Recent Vital Signs: Last Vital Signs Temp 97.5 F L 06/24/17 08:24 Pulse 81 06/24/17 08:24 Resp 20 06/24/17 08:24 BP 112/61 06/24/17 08:24 Pulse Ox 100 06/24/17 08:24 - Labs Result Diagrams: 06/19/17 08:35 06/19/17 08:35 Assessment & Plan (1) Cough Status: Acute Priority: High (2) Bronchitis Status: Acute Priority: High - Date & Time Date: 06/24/17 Time: 11:28
[2017-06-24] MEDS: Dextrose 5%/0.45% NS 1,000 ML IV SCH (16:57)
[2017-06-24] MEDS: Benzocaine/Menthol (Cepacol) Lozenge PO PRN (17:05)
--- NOTE | 2017-06-24 17:18 | CP.PCM.PN ---
Subjective - Date & Time of Evaluation Date of Evaluation: 06/24/17 Time of Evaluation: 22:22 - Subjective Subjective: Above noted Objective - Vital Signs/Intake and Output Vital Signs (last 24 hours): Temp Pulse Resp BP Pulse Ox 97.5 F L 81 20 112/61 100 06/24/17 08:24 06/24/17 08:24 06/24/17 08:24 06/24/17 08:24 06/24/17 08:24 - Medications Medications: Current Medications Acetaminophen (Tylenol 325mg Tab) 650 mg PO Q6 PRN PRN Reason: Pain, Mild (1-3) Last Admin: 06/21/17 18:54 Dose: 650 mg Albuterol/Ipratropium (Duoneb 3 Mg/0.5 Mg (3 Ml) Ud) 3 ml INH RQ4 TU Last Admin: 06/24/17 15:15 Dose: Not Given Amantadine HCl (Amantadine 100 Mg Cap) 100 mg PO BID [facility] Last Admin: 06/24/17 16:55 Dose: 100 mg Benzocaine/Menthol (Cepacol Sore Throat) 1 morro PO TID PRN PRN Reason: Sore Throat Last Admin: 06/24/17 17:05 Dose: 1 morro Bethanechol Chloride (Urecholine) 50 mg PO TID [facility] Last Admin: 06/24/17 16:58 Dose: 50 mg Carbidopa/Levodopa (Sinemet Cr) 1 tab PO TID [facility] Last Admin: 06/24/17 16:58 Dose: 1 tab Ciprofloxacin/Dexamethasone (Ciprodex Otic) 5 drop AD BID [facility] Stop: 06/28/17 17:01 Last Admin: 06/24/17 16:56 Dose: 5 drop Docusate Sodium (Colace) 100 mg PO BID [facility] Last Admin: 06/24/17 16:57 Dose: 100 mg Famotidine (Pepcid) 40 mg PO HS [facility] Last Admin: 06/23/17 23:00 Dose: 40 mg Fluocinonide (Lidex 0.05% Oint) 1 applic TOP BID PRN PRN Reason: Rash Last Admin: 06/15/17 16:10 Dose: 1 applic Guaifenesin (Robitussin) 100 mg PO Q6 PRN PRN Reason: Cough Last Admin: 06/24/17 05:40 Dose: 100 mg Dextrose/Sodium Chloride (Dextrose 5%/0.45% Ns 1000 Ml) 1,000 mls @ 60 mls/hr IV .[id number] [facility] Stop: 06/24/17 20:14 Last Admin: 06/24/17 16:57 Dose: 60 mls/hr Methylprednisolone (Solu-Medrol) 60 mg IV Q8H [facility] Last Admin: 06/24/17 16:48 Dose: 60 mg Nystatin (Nystop Topical Powder) 1 applic TOP TID [facility] Last Admin: 06/24/17 16:58 Dose: 1 applic - Labs Labs: 06/19/17 08:35 06/19/17 08:35 PT 12.6 Seconds (9.8-13.1) 05/18/17 05:30 INR 1.1 (0.9-1.2) 05/18/17 05:30 APTT 34.9 Seconds (25.6-37.1) 05/18/17 05:30 - Respiratory Exam Respiratory Exam: NORMAL BREATHING PATTERN - Cardiovascular Exam Cardiovascular Exam: REGULAR RHYTHM - GI/Abdominal Exam GI & Abdominal Exam: Normal Bowel Sounds Assessment and Plan - Assessment and Plan (Free Text) Assessment: Coughing Wheezing COPD CXR IVF Bronchodilators Steroids MSA Parkinsons DX Shry Drager Low ext weakness?? Dx progression Fatigue -Meds?? reconsult neuro Disposition?? awaiting transfer to [place] Pt has medical decision making capacity but is financially vulnerable and benefits from legal guardianship Court and Social service involved Pt is [place] [employer] S/P Bradycardia Hypotenson chronic A-fib Sepsis ? Autonomic dysfunction? Thrombocytopenia chronic DVT prophylaxis SCD (no Lovenox due to thrombocytopenia) R shoulder pain Dec ROM xrays subluxation Ultram PRN PT Recuurent c-diff Gastroentritis? resolved LGI bleed Thrombocytopenia Decubitus ulcer buttocks Increased frequency urinating UA CS PVR all wnl
[2017-06-25] MEDS: Albuterol-Ipratrop 3 mg / 0.5 (3 ml) UD INH SCH ×5 (00:51→20:24)
[2017-06-25] MEDS: guaiFENesin 100 mg/5 ml Syrup UD PO PRN ×2 (04:51→21:12)
[2017-06-25] MEDS: Benzocaine/Menthol (Cepacol) Lozenge PO PRN (05:57)
[2017-06-25] MEDS: Bethanechol 50 MG TAB PO SCH ×3 (08:48→16:20)
[2017-06-25] MEDS: Carbidopa/Levodopa 50/200 CR PO SCH ×3 (08:48→16:20)
[2017-06-25] MEDS: Ciprofloxacin/Dexamethasone OTIC SUSP AD SCH ×2 (08:49→16:21)
--- NOTE | 2017-06-25 11:04 | CP.PCM.PN ---
Subjective - Date & Time of Evaluation Date of Evaluation: 06/25/17 Time of Evaluation: 10:59 - Subjective Subjective: Vital signs remain stable. Some coughing still this AM. Had a small amount of sputum expectorated. No dyspnea at this time. Scattered sonorous rhonchi bilaterally. No audible wheezing or bronchial breathing. Few dry dependant rales bilaterally. Continue present regimen, but change aerosol to QID. Objective - Vital Signs/Intake and Output Vital Signs (last 24 hours): Temp Pulse Resp BP Pulse Ox 97.3 F L 82 20 126/84 99 06/25/17 08:16 06/25/17 08:16 06/25/17 08:16 06/25/17 08:16 06/25/17 08:16 - Medications Medications: Current Medications Acetaminophen (Tylenol 325mg Tab) 650 mg PO Q6 PRN PRN Reason: Pain, Mild (1-3) Last Admin: 06/21/17 18:54 Dose: 650 mg Albuterol/Ipratropium (Duoneb 3 Mg/0.5 Mg (3 Ml) Ud) 3 ml INH RQ4 [facility] Last Admin: 06/25/17 07:56 Dose: Not Given Amantadine HCl (Amantadine 100 Mg Cap) 100 mg PO BID [facility] Last Admin: 06/25/17 08:48 Dose: 100 mg Benzocaine/Menthol (Cepacol Sore Throat) 1 morro PO TID PRN PRN Reason: Sore Throat Last Admin: 06/25/17 05:57 Dose: 1 morro Bethanechol Chloride (Urecholine) 50 mg PO TID [facility] Last Admin: 06/25/17 08:48 Dose: 50 mg Carbidopa/Levodopa (Sinemet Cr) 1 tab PO TID [facility] Last Admin: 06/25/17 08:48 Dose: 1 tab Ciprofloxacin/Dexamethasone (Ciprodex Otic) 5 drop AD BID [facility] Stop: 06/28/17 17:01 Last Admin: 06/25/17 08:49 Dose: 5 drop Docusate Sodium (Colace) 100 mg PO BID [facility] Last Admin: 06/25/17 08:48 Dose: 100 mg Famotidine (Pepcid) 40 mg PO HS [facility] Last Admin: 06/24/17 21:55 Dose: 40 mg Fluocinonide (Lidex 0.05% Oint) 1 applic TOP BID PRN PRN Reason: Rash Last Admin: 06/15/17 16:10 Dose: 1 applic Guaifenesin (Robitussin) 100 mg PO Q6 PRN PRN Reason: Cough Last Admin: 06/25/17 04:51 Dose: 100 mg Methylprednisolone (Solu-Medrol) 60 mg IV Q8@0100,0900,1700 [facility] Last Admin: 06/25/17 08:48 Dose: 60 mg Nystatin (Nystop Topical Powder) 1 applic TOP TID [facility] Last Admin: 06/25/17 08:49 Dose: 1 applic - Labs Labs: 06/19/17 08:35 06/19/17 08:35 PT 12.6 Seconds (9.8-13.1) 05/18/17 05:30 INR 1.1 (0.9-1.2) 05/18/17 05:30 APTT 34.9 Seconds (25.6-37.1) 05/18/17 05:30 Assessment and Plan (1) Cough Status: Acute (2) Bronchitis Status: Acute
--- NOTE | 2017-06-25 16:15 | CP.PCM.PN ---
Subjective - Date & Time of Evaluation Date of Evaluation: 06/25/17 Time of Evaluation: 16:12 - Subjective Subjective: see below Objective - Vital Signs/Intake and Output Vital Signs (last 24 hours): Temp Pulse Resp BP Pulse Ox 97.3 F L 82 20 126/84 99 06/25/17 08:16 06/25/17 08:16 06/25/17 08:16 06/25/17 08:16 06/25/17 08:16 - Medications Medications: Current Medications Acetaminophen (Tylenol 325mg Tab) 650 mg PO Q6 PRN PRN Reason: Pain, Mild (1-3) Last Admin: 06/21/17 18:54 Dose: 650 mg Albuterol/Ipratropium (Duoneb 3 Mg/0.5 Mg (3 Ml) Ud) 3 ml INH RQID TU Amantadine HCl (Amantadine 100 Mg Cap) 100 mg PO BID [facility] Last Admin: 06/25/17 08:48 Dose: 100 mg Benzocaine/Menthol (Cepacol Sore Throat) 1 morro PO TID PRN PRN Reason: Sore Throat Last Admin: 06/25/17 05:57 Dose: 1 morro Bethanechol Chloride (Urecholine) 50 mg PO TID [facility] Last Admin: 06/25/17 12:01 Dose: 50 mg Carbidopa/Levodopa (Sinemet Cr) 1 tab PO TID [facility] Last Admin: 06/25/17 12:00 Dose: 1 tab Ciprofloxacin/Dexamethasone (Ciprodex Otic) 5 drop AD BID [facility] Stop: 06/28/17 17:01 Last Admin: 06/25/17 08:49 Dose: 5 drop Docusate Sodium (Colace) 100 mg PO BID [facility] Last Admin: 06/25/17 08:48 Dose: 100 mg Famotidine (Pepcid) 40 mg PO HS [facility] Last Admin: 06/24/17 21:55 Dose: 40 mg Fluocinonide (Lidex 0.05% Oint) 1 applic TOP BID PRN PRN Reason: Rash Last Admin: 06/15/17 16:10 Dose: 1 applic Guaifenesin (Robitussin) 100 mg PO Q6 PRN PRN Reason: Cough Last Admin: 06/25/17 04:51 Dose: 100 mg Methylprednisolone (Solu-Medrol) 60 mg IV Q8@0100,0900,1700 [facility] Last Admin: 06/25/17 08:48 Dose: 60 mg Nystatin (Nystop Topical Powder) 1 applic TOP TID [facility] Last Admin: 06/25/17 12:01 Dose: 1 applic - Labs Labs: 06/19/17 08:35 06/19/17 08:35 PT 12.6 Seconds (9.8-13.1) 05/18/17 05:30 INR 1.1 (0.9-1.2) 05/18/17 05:30 APTT 34.9 Seconds (25.6-37.1) 05/18/17 05:30 Assessment and Plan - Assessment and Plan (Free Text) Assessment: ENT Consult CC right ear drainage HPI 87 y/o male with extended hopsital stay was noticed to have right bloody ear drainage over weekend. He was begun on Ciprodex. He denies ear pain. No ear trauma. PMH Parkinsons HTN DM Allergies PCN Exam awake, alert, comfortable left EAC with impacted cerumen right EAC with minimal wax; EAC skin normal. TM clear and intact; dot of old blood on TM; auricle normal no tragal tenderness face symmetric Impressions Right otorrhagia, possibly from occult otitis externa, resolving with Ciprodex no obvious pathology currently Recommend continue Ciprodex for 7 days total duration o/p f/u
--- NOTE | 2017-06-25 18:21 | CP.PCM.PN ---
Subjective - Date & Time of Evaluation Date of Evaluation: 06/25/17 Time of Evaluation: 22:22 - Subjective Subjective: Above noted Objective - Vital Signs/Intake and Output Vital Signs (last 24 hours): Temp Pulse Resp BP Pulse Ox 97.3 F L 82 20 122/75 99 06/25/17 08:16 06/25/17 08:16 06/25/17 08:16 06/25/17 16:50 06/25/17 08:16 - Medications Medications: Current Medications Acetaminophen (Tylenol 325mg Tab) 650 mg PO Q6 PRN PRN Reason: Pain, Mild (1-3) Last Admin: 06/21/17 18:54 Dose: 650 mg Albuterol/Ipratropium (Duoneb 3 Mg/0.5 Mg (3 Ml) Ud) 3 ml INH RQID [facility] Last Admin: 06/25/17 16:00 Dose: Not Given Amantadine HCl (Amantadine 100 Mg Cap) 100 mg PO BID [facility] Last Admin: 06/25/17 16:21 Dose: 100 mg Benzocaine/Menthol (Cepacol Sore Throat) 1 morro PO TID PRN PRN Reason: Sore Throat Last Admin: 06/25/17 05:57 Dose: 1 morro Bethanechol Chloride (Urecholine) 50 mg PO TID [facility] Last Admin: 06/25/17 16:20 Dose: 50 mg Carbidopa/Levodopa (Sinemet Cr) 1 tab PO TID [facility] Last Admin: 06/25/17 16:20 Dose: 1 tab Ciprofloxacin/Dexamethasone (Ciprodex Otic) 5 drop AD BID [facility] Stop: 06/28/17 17:01 Last Admin: 06/25/17 16:21 Dose: 5 drop Docusate Sodium (Colace) 100 mg PO BID [facility] Last Admin: 06/25/17 16:20 Dose: 100 mg Famotidine (Pepcid) 40 mg PO HS [facility] Last Admin: 06/24/17 21:55 Dose: 40 mg Fluocinonide (Lidex 0.05% Oint) 1 applic TOP BID PRN PRN Reason: Rash Last Admin: 06/15/17 16:10 Dose: 1 applic Guaifenesin (Robitussin) 100 mg PO Q6 PRN PRN Reason: Cough Last Admin: 06/25/17 04:51 Dose: 100 mg Methylprednisolone (Solu-Medrol) 60 mg IV Q8@0100,0900,1700 [facility] Last Admin: 06/25/17 16:20 Dose: 60 mg Nystatin (Nystop Topical Powder) 1 applic TOP TID [facility] Last Admin: 06/25/17 16:20 Dose: 1 applic - Labs Labs: 06/19/17 08:35 06/19/17 08:35 PT 12.6 Seconds (9.8-13.1) 05/18/17 05:30 INR 1.1 (0.9-1.2) 05/18/17 05:30 APTT 34.9 Seconds (25.6-37.1) 05/18/17 05:30 - Respiratory Exam Respiratory Exam: NORMAL BREATHING PATTERN - Cardiovascular Exam Cardiovascular Exam: REGULAR RHYTHM - GI/Abdominal Exam GI & Abdominal Exam: Normal Bowel Sounds Assessment and Plan - Assessment and Plan (Free Text) Assessment: Coughing Wheezing COPD CXR IVF Bronchodilators Steroids Otitis externa Ciprodex MSA Parkinsons DX Shry Drager Low ext weakness?? Dx progression Fatigue -Meds?? reconsult neuro Disposition?? awaiting transfer to [place] Pt has medical decision making capacity but is financially vulnerable and benefits from legal guardianship Court and Social service involved Pt is [place] [employer] S/P Bradycardia Hypotenson chronic A-fib Sepsis ? Autonomic dysfunction? Thrombocytopenia chronic DVT prophylaxis SCD (no Lovenox due to thrombocytopenia) R shoulder pain Dec ROM xrays subluxation Ultram PRN PT Recuurent c-diff Gastroentritis? resolved LGI bleed Thrombocytopenia Decubitus ulcer buttocks Increased frequency urinating UA CS PVR all wnl
[2017-06-26] MEDS: Ciprofloxacin/Dexamethasone OTIC SUSP AD SCH ×2 (05:00→16:39)
[2017-06-26] MEDS: Albuterol-Ipratrop 3 mg / 0.5 (3 ml) UD INH SCH ×4 (07:35→19:30)
[2017-06-26] MEDS: Bethanechol 50 MG TAB PO SCH ×3 (08:50→16:48)
[2017-06-26] MEDS: Carbidopa/Levodopa 50/200 CR PO SCH ×3 (08:51→16:45)
--- NOTE | 2017-06-26 20:45 | CP.PCM.PN ---
Subjective - Date & Time of Evaluation Date of Evaluation: 06/26/17 Time of Evaluation: 22:22 - Subjective Subjective: Above noted Objective - Vital Signs/Intake and Output Vital Signs (last 24 hours): Temp Pulse Resp BP Pulse Ox 97.5 F L 81 18 131/72 97 06/26/17 15:30 06/26/17 15:30 06/26/17 15:30 06/26/17 15:30 06/26/17 15:30 - Medications Medications: Current Medications Acetaminophen (Tylenol 325mg Tab) 650 mg PO Q6 PRN PRN Reason: Pain, Mild (1-3) Last Admin: 06/21/17 18:54 Dose: 650 mg Albuterol/Ipratropium (Duoneb 3 Mg/0.5 Mg (3 Ml) Ud) 3 ml INH RQID [facility] Last Admin: 06/26/17 16:34 Dose: Not Given Amantadine HCl (Amantadine 100 Mg Cap) 100 mg PO BID [facility] Last Admin: 06/26/17 16:46 Dose: 100 mg Benzocaine/Menthol (Cepacol Sore Throat) 1 morro PO TID PRN PRN Reason: Sore Throat Last Admin: 06/25/17 05:57 Dose: 1 morro Bethanechol Chloride (Urecholine) 50 mg PO TID [facility] Last Admin: 06/26/17 16:48 Dose: 50 mg Carbidopa/Levodopa (Sinemet Cr) 1 tab PO TID [facility] Last Admin: 06/26/17 16:45 Dose: 1 tab Ciprofloxacin/Dexamethasone (Ciprodex Otic) 5 drop AD BID [facility] Stop: 06/28/17 17:01 Last Admin: 06/26/17 16:39 Dose: 5 drop Docusate Sodium (Colace) 100 mg PO BID [facility] Last Admin: 06/26/17 16:39 Dose: 100 mg Famotidine (Pepcid) 40 mg PO HS [facility] Last Admin: 06/25/17 21:11 Dose: 40 mg Fluocinonide (Lidex 0.05% Oint) 1 applic TOP BID PRN PRN Reason: Rash Last Admin: 06/15/17 16:10 Dose: 1 applic Guaifenesin (Robitussin) 100 mg PO Q6 PRN PRN Reason: Cough Last Admin: 06/25/17 21:12 Dose: 100 mg Methylprednisolone (Solu-Medrol) 60 mg IV Q8@0100,0900,1700 [facility] Last Admin: 06/26/17 16:45 Dose: 60 mg Nystatin (Nystop Topical Powder) 1 applic TOP TID [facility] Last Admin: 06/26/17 16:46 Dose: 1 applic - Labs Labs: 06/19/17 08:35 06/19/17 08:35 PT 12.6 Seconds (9.8-13.1) 05/18/17 05:30 INR 1.1 (0.9-1.2) 05/18/17 05:30 APTT 34.9 Seconds (25.6-37.1) 05/18/17 05:30 - Respiratory Exam Respiratory Exam: NORMAL BREATHING PATTERN - Cardiovascular Exam Cardiovascular Exam: REGULAR RHYTHM - GI/Abdominal Exam GI & Abdominal Exam: Normal Bowel Sounds Assessment and Plan - Assessment and Plan (Free Text) Assessment: Coughing COPD IVF Bronchodilators Steroids Otitis externa Ciprodex MSA Parkinsons DX Shry Drager Low ext weakness?? Dx progression Fatigue -Meds?? reconsult neuro Disposition?? awaiting transfer to [place] Pt has medical decision making capacity but is financially vulnerable and benefits from legal guardianship Court and Social service involved Pt is [place] S/P Bradycardia Hypotenson chronic A-fib Sepsis ? Autonomic dysfunction? Thrombocytopenia chronic DVT prophylaxis SCD (no Lovenox due to thrombocytopenia) R shoulder pain Dec ROM xrays subluxation Ultram PRN PT Recuurent c-diff Gastroentritis? resolved LGI bleed Thrombocytopenia Decubitus ulcer buttocks Increased frequency urinating UA CS PVR all wnl
[2017-06-27] MEDS: Albuterol-Ipratrop 3 mg / 0.5 (3 ml) UD INH SCH ×3 (07:25→19:12)
[2017-06-27] MEDS: Ciprofloxacin/Dexamethasone OTIC SUSP AD SCH ×2 (09:04→16:54)
[2017-06-27] MEDS: Carbidopa/Levodopa 50/200 CR PO SCH ×3 (09:05→16:53)
[2017-06-27] MEDS: Bethanechol 50 MG TAB PO SCH ×3 (09:05→16:54)
[2017-06-27] MEDS: MethylPREDNISolone 40 mg Vial IV SCH ×2 (09:46→16:54)
--- NOTE | 2017-06-27 11:14 | CP.PCM.PN ---
Subjective - Date & Time of Evaluation Date of Evaluation: 06/27/17 Time of Evaluation: 11:14 - Subjective Subjective: Awake and alert, lying in bed in no distress. Vital signs remained stable and he continues to be afebrile. Still complains that he has occasional cough and sputum. No complaints of chest pain or shortness of breath. Mild generalized erythroderma likely secondary to corticosteroids. Neck is supple and trachea is midline. No dullness on percussion of the anterior thorax. Breath sounds are present bilaterally. No audible wheeze. Few scattered dry to medium rales in dependent zones bilaterally. No bronchial breathing. A few dependent rhonchi posteriorly. We'll continue present regimen and reduce corticosteroids steadily. Continue inhalation treatments with albuterol/ipratropium. Objective - Vital Signs/Intake and Output Vital Signs (last 24 hours): Temp Pulse Resp BP Pulse Ox 97.4 F L 83 20 133/88 100 06/27/17 08:29 06/27/17 08:29 06/27/17 08:29 06/27/17 08:29 06/27/17 08:29 - Medications Medications: Current Medications Acetaminophen (Tylenol 325mg Tab) 650 mg PO Q6 PRN PRN Reason: Pain, Mild (1-3) Last Admin: 06/21/17 18:54 Dose: 650 mg Albuterol/Ipratropium (Duoneb 3 Mg/0.5 Mg (3 Ml) Ud) 3 ml INH RQID [facility] Last Admin: 06/27/17 07:25 Dose: Not Given Amantadine HCl (Amantadine 100 Mg Cap) 100 mg PO BID [facility] Last Admin: 06/27/17 09:05 Dose: 100 mg Benzocaine/Menthol (Cepacol Sore Throat) 1 morro PO TID PRN PRN Reason: Sore Throat Last Admin: 06/25/17 05:57 Dose: 1 morro Bethanechol Chloride (Urecholine) 50 mg PO TID [facility] Last Admin: 06/27/17 09:05 Dose: 50 mg Carbidopa/Levodopa (Sinemet Cr) 1 tab PO TID [facility] Last Admin: 06/27/17 09:05 Dose: 1 tab Ciprofloxacin/Dexamethasone (Ciprodex Otic) 5 drop AD BID [facility] Stop: 06/28/17 17:01 Last Admin: 06/27/17 09:04 Dose: 5 drop Docusate Sodium (Colace) 100 mg PO BID [facility] Last Admin: 06/27/17 09:05 Dose: 100 mg Famotidine (Pepcid) 40 mg PO HS [facility] Last Admin: 06/26/17 21:11 Dose: 40 mg Fluocinonide (Lidex 0.05% Oint) 1 applic TOP BID PRN PRN Reason: Rash Last Admin: 06/15/17 16:10 Dose: 1 applic Guaifenesin (Robitussin) 100 mg PO Q6 PRN PRN Reason: Cough Last Admin: 06/25/17 21:12 Dose: 100 mg Methylprednisolone (Solu-Medrol) 30 mg IV Q8H [facility] Nystatin (Nystop Topical Powder) 1 applic TOP TID [facility] Last Admin: 06/27/17 09:04 Dose: 1 applic - Labs Labs: 06/19/17 08:35 06/19/17 08:35 PT 12.6 Seconds (9.8-13.1) 05/18/17 05:30 INR 1.1 (0.9-1.2) 05/18/17 05:30 APTT 34.9 Seconds (25.6-37.1) 05/18/17 05:30 Assessment and Plan (1) Cough Status: Acute (2) Bronchitis Status: Acute
--- NOTE | 2017-06-27 15:21 | CP.PCM.PN ---
Subjective - Date & Time of Evaluation Date of Evaluation: 06/27/17 Time of Evaluation: 22:22 - Subjective Subjective: Above noted Objective - Vital Signs/Intake and Output Vital Signs (last 24 hours): Temp Pulse Resp BP Pulse Ox 97.4 F L 83 20 133/88 100 06/27/17 08:29 06/27/17 08:29 06/27/17 08:29 06/27/17 08:29 06/27/17 08:29 - Medications Medications: Current Medications Acetaminophen (Tylenol 325mg Tab) 650 mg PO Q6 PRN PRN Reason: Pain, Mild (1-3) Last Admin: 06/21/17 18:54 Dose: 650 mg Albuterol/Ipratropium (Duoneb 3 Mg/0.5 Mg (3 Ml) Ud) 3 ml INH RQID [facility] Last Admin: 06/27/17 07:25 Dose: Not Given Amantadine HCl (Amantadine 100 Mg Cap) 100 mg PO BID [facility] Last Admin: 06/27/17 09:05 Dose: 100 mg Benzocaine/Menthol (Cepacol Sore Throat) 1 morro PO TID PRN PRN Reason: Sore Throat Last Admin: 06/25/17 05:57 Dose: 1 morro Bethanechol Chloride (Urecholine) 50 mg PO TID [facility] Last Admin: 06/27/17 12:47 Dose: 50 mg Carbidopa/Levodopa (Sinemet Cr) 1 tab PO TID [facility] Last Admin: 06/27/17 12:45 Dose: 1 tab Ciprofloxacin/Dexamethasone (Ciprodex Otic) 5 drop AD BID [facility] Stop: 06/28/17 17:01 Last Admin: 06/27/17 09:04 Dose: 5 drop Docusate Sodium (Colace) 100 mg PO BID [facility] Last Admin: 06/27/17 09:05 Dose: 100 mg Famotidine (Pepcid) 40 mg PO HS [facility] Last Admin: 06/26/17 21:11 Dose: 40 mg Fluocinonide (Lidex 0.05% Oint) 1 applic TOP BID PRN PRN Reason: Rash Last Admin: 06/15/17 16:10 Dose: 1 applic Guaifenesin (Robitussin) 100 mg PO Q6 PRN PRN Reason: Cough Last Admin: 06/25/17 21:12 Dose: 100 mg Methylprednisolone (Solu-Medrol) 30 mg IV Q8H [facility] Last Admin: 06/27/17 09:46 Dose: 30 mg Nystatin (Nystop Topical Powder) 1 applic TOP TID [facility] Last Admin: 06/27/17 12:44 Dose: 1 applic - Labs Labs: 06/19/17 08:35 06/19/17 08:35 PT 12.6 Seconds (9.8-13.1) 05/18/17 05:30 INR 1.1 (0.9-1.2) 05/18/17 05:30 APTT 34.9 Seconds (25.6-37.1) 05/18/17 05:30 - Respiratory Exam Respiratory Exam: NORMAL BREATHING PATTERN - Cardiovascular Exam Cardiovascular Exam: REGULAR RHYTHM - GI/Abdominal Exam GI & Abdominal Exam: Normal Bowel Sounds Assessment and Plan - Assessment and Plan (Free Text) Assessment: Coughing COPD Bronchodilators Otitis externa Ciprodex MSA Parkinsons DX Shry Drager Low ext weakness?? Dx progression Fatigue -Meds?? reconsult neuro Disposition?? awaiting transfer to [place] Pt has medical decision making capacity but is financially vulnerable and benefits from legal guardianship Court and Social service involved Pt is [place] S/P Bradycardia Hypotenson chronic A-fib Sepsis ? Autonomic dysfunction? Thrombocytopenia chronic DVT prophylaxis SCD (no Lovenox due to thrombocytopenia) R shoulder pain Dec ROM xrays subluxation Ultram PRN PT Recuurent c-diff Gastroentritis? resolved LGI bleed Thrombocytopenia Decubitus ulcer buttocks Increased frequency urinating UA CS PVR all wnl
[2017-06-28] MEDS: MethylPREDNISolone 40 mg Vial IV SCH ×3 (01:19→17:01)
[2017-06-28] MEDS: Albuterol-Ipratrop 3 mg / 0.5 (3 ml) UD INH SCH ×4 (07:20→19:03)
[2017-06-28] MEDS: Carbidopa/Levodopa 50/200 CR PO SCH ×3 (09:25→17:04)
[2017-06-28] MEDS: Ciprofloxacin/Dexamethasone OTIC SUSP AD SCH ×2 (09:25→17:04)
[2017-06-28] MEDS: Bethanechol 50 MG TAB PO SCH ×3 (09:26→17:04)
[2017-06-28] MEDS: guaiFENesin 100 mg/5 ml Syrup UD PO PRN (21:46)
[2017-06-29] MEDS: MethylPREDNISolone 40 mg Vial IV SCH ×3 (00:31→16:32)
[2017-06-29] MEDS: Albuterol-Ipratrop 3 mg / 0.5 (3 ml) UD INH SCH ×4 (07:52→19:20)
[2017-06-29] MEDS: Bethanechol 50 MG TAB PO SCH ×3 (08:31→16:32)
[2017-06-29] MEDS: Carbidopa/Levodopa 50/200 CR PO SCH ×3 (08:32→16:32)
[2017-06-29] MEDS: guaiFENesin 100 mg/5 ml Syrup UD PO PRN ×2 (08:32→16:31)
[2017-06-30] MEDS: MethylPREDNISolone 40 mg Vial IV SCH ×2 (01:05→09:08)
[2017-06-30] MEDS: Albuterol-Ipratrop 3 mg / 0.5 (3 ml) UD INH SCH ×4 (07:25→19:06)
[2017-06-30] MEDS: Bethanechol 50 MG TAB PO SCH ×3 (09:04→16:33)
[2017-06-30] MEDS: Carbidopa/Levodopa 50/200 CR PO SCH ×2 (12:03→16:33)
--- NOTE | 2017-06-30 19:46 | CP.PCM.PN ---
Subjective - Date & Time of Evaluation Date of Evaluation: 06/30/17 Time of Evaluation: 22:22 - Subjective Subjective: Still coughing Objective - Vital Signs/Intake and Output Vital Signs (last 24 hours): Temp Pulse Resp BP Pulse Ox 98.7 F 82 20 115/67 97 06/30/17 17:05 06/30/17 17:05 06/30/17 17:05 06/30/17 17:05 06/30/17 17:05 - Medications Medications: Current Medications Acetaminophen (Tylenol 325mg Tab) 650 mg PO Q6 PRN PRN Reason: Pain, Mild (1-3) Last Admin: 06/21/17 18:54 Dose: 650 mg Albuterol/Ipratropium (Duoneb 3 Mg/0.5 Mg (3 Ml) Ud) 3 ml INH RQID [facility] Last Admin: 06/30/17 15:10 Dose: 3 ml Amantadine HCl (Amantadine 100 Mg Cap) 100 mg PO BID [facility] Last Admin: 06/30/17 16:35 Dose: 100 mg Benzocaine/Menthol (Cepacol Sore Throat) 1 morro PO TID PRN PRN Reason: Sore Throat Last Admin: 06/25/17 05:57 Dose: 1 morro Bethanechol Chloride (Urecholine) 50 mg PO TID [facility] Last Admin: 06/30/17 16:33 Dose: 50 mg Carbidopa/Levodopa (Sinemet Cr) 1 tab PO TID [facility] Last Admin: 06/30/17 16:33 Dose: 1 tab Docusate Sodium (Colace) 100 mg PO BID [facility] Last Admin: 06/30/17 16:33 Dose: 100 mg Famotidine (Pepcid) 40 mg PO HS [facility] Last Admin: 06/29/17 22:42 Dose: 40 mg Fluocinonide (Lidex 0.05% Oint) 1 applic TOP BID PRN PRN Reason: Rash Last Admin: 06/15/17 16:10 Dose: 1 applic Guaifenesin (Robitussin) 100 mg PO Q6 PRN PRN Reason: Cough Last Admin: 06/29/17 16:31 Dose: 100 mg Methylprednisolone (Solu-Medrol) 30 mg IVP Q12 [facility] Nystatin (Nystop Topical Powder) 1 applic TOP TID [facility] Last Admin: 06/30/17 16:32 Dose: 1 applic - Labs Labs: 06/19/17 08:35 06/19/17 08:35 PT 12.6 Seconds (9.8-13.1) 05/18/17 05:30 INR 1.1 (0.9-1.2) 05/18/17 05:30 APTT 34.9 Seconds (25.6-37.1) 05/18/17 05:30 - Respiratory Exam Respiratory Exam: NORMAL BREATHING PATTERN - Cardiovascular Exam Cardiovascular Exam: REGULAR RHYTHM - GI/Abdominal Exam GI & Abdominal Exam: Normal Bowel Sounds Assessment and Plan - Assessment and Plan (Free Text) Assessment: Coughing COPD Bronchodilators CXR Otitis externa Ciprodex MSA Parkinsons DX Shry Drager Low ext weakness?? Dx progression Fatigue -Meds?? reconsult neuro Disposition?? awaiting transfer to [place] Pt has medical decision making capacity but is financially vulnerable and benefits from legal guardianship Court and Social service involved Pt is [place] [employer] S/P Bradycardia Hypotenson chronic A-fib Sepsis ? Autonomic dysfunction? Thrombocytopenia chronic DVT prophylaxis SCD (no Lovenox due to thrombocytopenia) R shoulder pain Dec ROM xrays subluxation Ultram PRN PT Recuurent c-diff Gastroentritis? resolved LGI bleed Thrombocytopenia Decubitus ulcer buttocks Increased frequency urinating UA CS PVR all wnl
[2017-06-30] MEDS: MethylPREDNISolone 40 mg Vial IVP SCH (20:39)
[2017-06-30] MEDS: guaiFENesin 100 mg/5 ml Syrup UD PO PRN (21:34)
[2017-07-01] MEDS: Albuterol-Ipratrop 3 mg / 0.5 (3 ml) UD INH SCH ×4 (07:26→20:50)
[2017-07-01] MEDS: Carbidopa/Levodopa 50/200 CR PO SCH ×3 (08:30→16:17)
[2017-07-01] MEDS: Bethanechol 50 MG TAB PO SCH ×3 (08:30→16:16)
[2017-07-01] MEDS: MethylPREDNISolone 40 mg Vial IVP SCH ×2 (08:31→22:10)
[2017-07-01] MEDS: guaiFENesin 100 mg/5 ml Syrup UD PO PRN (08:32)
--- NOTE | 2017-07-01 08:51 | RAD ---
HISTORY: Cough COMPARISON: Portable chest 06/19/2017. FINDINGS: LUNGS: Limited patchy atelectasis is suggested the right base with fluid in the minor fissure or linear atelectasis inferior to the minor fissure. No left pleural effusion. Cardiac size appears stable. No pulmonary derangement or pneumothorax bilaterally. No active pulmonary disease. OSSEOUS STRUCTURES: No significant abnormalities. VISUALIZED UPPER ABDOMEN: Normal. OTHER FINDINGS: None. IMPRESSION: Trace atelectasis is seen at the right base with limited fluid again evident the minor fissure versus linear atelectasis inferior to the fissure. Stable cardiac silhouette. No pulmonary vascular derangement.
--- NOTE | 2017-07-01 10:59 | CP.PCM.PN ---
Subjective - Date & Time of Evaluation Date of Evaluation: 07/01/17 Time of Evaluation: 10:57 - Subjective Subjective: Lying in bed, complaining he did not sleep last night. His vital signs continued to remain stable and he is afebrile. He claims he has occasional cough but no further sputum production. He offers no complaint of chest pain. The neck is supple and trachea is midline. There is no dullness on percussion of the anterior thorax. Breath sounds are present bilaterally with rare dry rales in dependent areas of the lower lobes. No audible wheezing or bronchial breathing. Few sonorous rhonchi and dependent zones. Mild generalized erythroderma in his slowly decreasing. Continue general medical regimen unchanged with the exception of decreasing steroid doses further. Objective - Vital Signs/Intake and Output Vital Signs (last 24 hours): Temp Pulse Resp BP Pulse Ox 97.9 F 101 H 20 145/75 97 07/01/17 08:01 07/01/17 08:01 07/01/17 08:01 07/01/17 08:01 07/01/17 08:01 - Medications Medications: Current Medications Acetaminophen (Tylenol 325mg Tab) 650 mg PO Q6 PRN PRN Reason: Pain, Mild (1-3) Last Admin: 06/21/17 18:54 Dose: 650 mg Albuterol/Ipratropium (Duoneb 3 Mg/0.5 Mg (3 Ml) Ud) 3 ml INH RQID [facility] Last Admin: 07/01/17 07:26 Dose: Not Given Amantadine HCl (Amantadine 100 Mg Cap) 100 mg PO BID [facility] Last Admin: 07/01/17 08:28 Dose: 100 mg Benzocaine/Menthol (Cepacol Sore Throat) 1 morro PO TID PRN PRN Reason: Sore Throat Last Admin: 06/25/17 05:57 Dose: 1 morro Bethanechol Chloride (Urecholine) 50 mg PO TID [facility] Last Admin: 07/01/17 08:30 Dose: 50 mg Carbidopa/Levodopa (Sinemet Cr) 1 tab PO TID [facility] Last Admin: 07/01/17 08:30 Dose: 1 tab Docusate Sodium (Colace) 100 mg PO BID [facility] Last Admin: 07/01/17 08:28 Dose: 100 mg Famotidine (Pepcid) 40 mg PO HS [facility] Last Admin: 12/18/17 21:34 Dose: 40 mg Fluocinonide (Lidex 0.05% Oint) 1 applic TOP BID PRN PRN Reason: Rash Last Admin: 06/15/17 16:10 Dose: 1 applic Guaifenesin (Robitussin) 100 mg PO Q6 PRN PRN Reason: Cough Last Admin: 07/01/17 08:32 Dose: 100 mg Methylprednisolone 30 mg/ (Sodium Chloride) 50 mls @ 100 mls/hr IV DAILY [facility] Methylprednisolone (Solu-Medrol) 30 mg IVP Q12 [facility] Stop: 07/01/17 23:59 Last Admin: 07/01/17 08:31 Dose: 30 mg Nystatin (Nystop Topical Powder) 1 applic TOP TID [facility] Last Admin: 07/01/17 09:54 Dose: 1 applic - Labs Labs: 06/19/17 08:35 06/19/17 08:35 PT 12.6 Seconds (9.8-13.1) 05/18/17 05:30 INR 1.1 (0.9-1.2) 05/18/17 05:30 APTT 34.9 Seconds (25.6-37.1) 05/18/17 05:30 Assessment and Plan (1) Cough Status: Acute (2) Bronchitis Status: Acute
--- NOTE | 2017-07-01 20:49 | CP.PCM.PN ---
Subjective - Date & Time of Evaluation Date of Evaluation: 07/01/17 Time of Evaluation: 22:22 - Subjective Subjective: Above noted Objective - Vital Signs/Intake and Output Vital Signs (last 24 hours): Temp Pulse Resp BP Pulse Ox 97.6 F 66 20 132/73 98 07/01/17 16:05 07/01/17 16:05 07/01/17 16:05 07/01/17 16:05 07/01/17 16:05 - Medications Medications: Current Medications Acetaminophen (Tylenol 325mg Tab) 650 mg PO Q6 PRN PRN Reason: Pain, Mild (1-3) Last Admin: 06/21/17 18:54 Dose: 650 mg Albuterol/Ipratropium (Duoneb 3 Mg/0.5 Mg (3 Ml) Ud) 3 ml INH RQID [facility] Last Admin: 07/01/17 15:13 Dose: Not Given Amantadine HCl (Amantadine 100 Mg Cap) 100 mg PO BID [facility] Last Admin: 07/01/17 16:54 Dose: 100 mg Benzocaine/Menthol (Cepacol Sore Throat) 1 morro PO TID PRN PRN Reason: Sore Throat Last Admin: 06/25/17 05:57 Dose: 1 morro Bethanechol Chloride (Urecholine) 50 mg PO TID [facility] Last Admin: 07/01/17 16:16 Dose: 50 mg Carbidopa/Levodopa (Sinemet Cr) 1 tab PO TID [facility] Last Admin: 07/01/17 16:17 Dose: 1 tab Docusate Sodium (Colace) 100 mg PO BID [facility] Last Admin: 07/01/17 16:17 Dose: 100 mg Famotidine (Pepcid) 40 mg PO HS [facility] Last Admin: 06/30/17 21:34 Dose: 40 mg Fluocinonide (Lidex 0.05% Oint) 1 applic TOP BID PRN PRN Reason: Rash Last Admin: 06/15/17 16:10 Dose: 1 applic Guaifenesin (Robitussin) 100 mg PO Q6 PRN PRN Reason: Cough Last Admin: 07/01/17 08:32 Dose: 100 mg Methylprednisolone (Solu-Medrol) 30 mg IVP Q12 [facility] Stop: 07/01/17 23:59 Last Admin: 07/01/17 08:31 Dose: 30 mg Methylprednisolone (Solu-Medrol) 30 mg IVP DAILY [facility] Nystatin (Nystop Topical Powder) 1 applic TOP TID [facility] Last Admin: 07/01/17 16:16 Dose: 1 applic - Labs Labs: 06/19/17 08:35 06/19/17 08:35 PT 12.6 Seconds (9.8-13.1) 05/18/17 05:30 INR 1.1 (0.9-1.2) 05/18/17 05:30 APTT 34.9 Seconds (25.6-37.1) 05/18/17 05:30 - Respiratory Exam Respiratory Exam: NORMAL BREATHING PATTERN - Cardiovascular Exam Cardiovascular Exam: REGULAR RHYTHM - GI/Abdominal Exam GI & Abdominal Exam: Normal Bowel Sounds Assessment and Plan - Assessment and Plan (Free Text) Assessment: Coughing COPD Bronchodilators Steroids tapering Pulmonary Otitis externa Ciprodex MSA Parkinsons DX Shry Drager Low ext weakness?? Dx progression Fatigue -Meds?? reconsult neuro Disposition?? awaiting transfer to [place] Pt has medical decision making capacity but is financially vulnerable and benefits from legal guardianship Court and Social service involved Pt is [place] [employer] S/P Bradycardia Hypotenson chronic A-fib Sepsis ? Autonomic dysfunction? Thrombocytopenia chronic DVT prophylaxis SCD (no Lovenox due to thrombocytopenia) R shoulder pain Dec ROM xrays subluxation Ultram PRN PT Recuurent c-diff Gastroentritis? resolved LGI bleed Thrombocytopenia Decubitus ulcer buttocks Increased frequency urinating UA CS PVR all wnl
[2017-07-02] MEDS: Albuterol-Ipratrop 3 mg / 0.5 (3 ml) UD INH SCH ×4 (07:49→15:18)
[2017-07-02] MEDS: Carbidopa/Levodopa 50/200 CR PO SCH ×3 (08:37→16:15)
[2017-07-02] MEDS: guaiFENesin 100 mg/5 ml Syrup UD PO PRN ×2 (08:37→16:15)
[2017-07-02] MEDS: MethylPREDNISolone 40 mg Vial IVP SCH (08:38)
[2017-07-02] MEDS: Bethanechol 50 MG TAB PO SCH ×3 (08:38→16:15)
--- NOTE | 2017-07-02 19:00 | CP.PCM.PN ---
Subjective - Date & Time of Evaluation Date of Evaluation: 07/02/17 Time of Evaluation: 22:22 - Subjective Subjective: Still coughing Objective - Vital Signs/Intake and Output Vital Signs (last 24 hours): Temp Pulse Resp BP Pulse Ox 98.0 F 58 L 16 114/76 99 07/02/17 15:42 07/02/17 15:42 07/02/17 15:42 07/02/17 15:42 07/02/17 15:42 - Medications Medications: Current Medications Acetaminophen (Tylenol 325mg Tab) 650 mg PO Q6 PRN PRN Reason: Pain, Mild (1-3) Last Admin: 06/21/17 18:54 Dose: 650 mg Albuterol/Ipratropium (Duoneb 3 Mg/0.5 Mg (3 Ml) Ud) 3 ml INH RQID [facility] Last Admin: 07/02/17 15:18 Dose: Not Given Amantadine HCl (Amantadine 100 Mg Cap) 100 mg PO BID [facility] Last Admin: 07/02/17 16:15 Dose: 100 mg Benzocaine/Menthol (Cepacol Sore Throat) 1 morro PO TID PRN PRN Reason: Sore Throat Last Admin: 06/25/17 05:57 Dose: 1 morro Bethanechol Chloride (Urecholine) 50 mg PO TID [facility] Last Admin: 07/02/17 16:15 Dose: 50 mg Carbidopa/Levodopa (Sinemet Cr) 1 tab PO TID [facility] Last Admin: 07/02/17 16:15 Dose: 1 tab Docusate Sodium (Colace) 100 mg PO BID [facility] Last Admin: 07/02/17 16:15 Dose: 100 mg Famotidine (Pepcid) 40 mg PO HS [facility] Last Admin: 07/01/17 22:11 Dose: 40 mg Fluocinonide (Lidex 0.05% Oint) 1 applic TOP BID PRN PRN Reason: Rash Last Admin: 06/15/17 16:10 Dose: 1 applic Guaifenesin (Robitussin) 100 mg PO Q6 PRN PRN Reason: Cough Last Admin: 07/02/17 16:15 Dose: 100 mg Methylprednisolone (Solu-Medrol) 30 mg IVP DAILY [facility] Last Admin: 07/02/17 08:38 Dose: 30 mg Nystatin (Nystop Topical Powder) 1 applic TOP TID [facility] Last Admin: 07/02/17 16:16 Dose: 1 applic - Labs Labs: 06/19/17 08:35 06/19/17 08:35 PT 12.6 Seconds (9.8-13.1) 05/18/17 05:30 INR 1.1 (0.9-1.2) 05/18/17 05:30 APTT 34.9 Seconds (25.6-37.1) 05/18/17 05:30 - Respiratory Exam Respiratory Exam: NORMAL BREATHING PATTERN - Cardiovascular Exam Cardiovascular Exam: REGULAR RHYTHM - GI/Abdominal Exam GI & Abdominal Exam: Normal Bowel Sounds Assessment and Plan - Assessment and Plan (Free Text) Assessment: Coughing COPD Bronchodilators Steroids tapering Pulmonary Otitis externa Ciprodex MSA Parkinsons DX Shry Drager Low ext weakness?? Dx progression Fatigue -Meds?? reconsult neuro Disposition?? awaiting transfer to [place] Pt has medical decision making capacity but is financially vulnerable and benefits from legal guardianship Court and Social service involved Pt is [place] [employer] S/P Bradycardia Hypotenson chronic A-fib Sepsis ? Autonomic dysfunction? Thrombocytopenia chronic DVT prophylaxis SCD (no Lovenox due to thrombocytopenia) R shoulder pain Dec ROM xrays subluxation Ultram PRN PT Recuurent c-diff Gastroentritis? resolved LGI bleed Thrombocytopenia Decubitus ulcer buttocks Increased frequency urinating UA CS PVR all wnl
[2017-07-03] MEDS: Albuterol-Ipratrop 3 mg / 0.5 (3 ml) UD INH SCH ×3 (07:40→16:01)
[2017-07-03] MEDS: MethylPREDNISolone 40 mg Vial IVP SCH (09:40)
[2017-07-03] MEDS: Carbidopa/Levodopa 50/200 CR PO SCH ×3 (09:40→17:23)
[2017-07-03] MEDS: Bethanechol 50 MG TAB PO SCH ×3 (09:40→17:23)
[2017-07-03] MEDS: guaiFENesin 100 mg/5 ml Syrup UD PO PRN (09:47)
--- NOTE | 2017-07-03 13:13 | CP.PCM.PN ---
Subjective - Date & Time of Evaluation Date of Evaluation: 07/03/17 Time of Evaluation: 13:10 - Subjective Subjective: Sitting up in bed, appears rather comfortable. Cooperative with the physical examination. Complaining of throat discomfort and occasional sputum production. He describes small quantity of resendiz colored phlegm. His vital signs have remained stable. Pharynx does appear mildly injected and the mucous membranes are dry. The tongue appears coated. The neck is supple and trachea is midline. No dullness on chest percussion. Breath sounds are present bilaterally. Occasional sonorous rhonchi are heard in the lower lobes. Rare dry rales are heard in the lower lobes as well. No bronchial breathing or egophony. No rub. We'll reduce corticosteroid dose to 30 mg once daily with plan to discontinue in next 48-72 hours. If throat discomfort continues may institute nystatin swish and swallow. Objective - Vital Signs/Intake and Output Vital Signs (last 24 hours): Temp Pulse Resp BP Pulse Ox 98 F 76 20 138/70 94 L 07/03/17 08:57 07/03/17 08:57 07/03/17 08:57 07/03/17 08:57 07/03/17 08:57 - Medications Medications: Current Medications Acetaminophen (Tylenol 325mg Tab) 650 mg PO Q6 PRN PRN Reason: Pain, Mild (1-3) Last Admin: 06/21/17 18:54 Dose: 650 mg Albuterol/Ipratropium (Duoneb 3 Mg/0.5 Mg (3 Ml) Ud) 3 ml INH RQID [facility] Last Admin: 07/03/17 11:03 Dose: Not Given Amantadine HCl (Amantadine 100 Mg Cap) 100 mg PO BID [facility] Last Admin: 07/03/17 09:39 Dose: 100 mg Benzocaine/Menthol (Cepacol Sore Throat) 1 morro PO TID PRN PRN Reason: Sore Throat Last Admin: 06/25/17 05:57 Dose: 1 morro Bethanechol Chloride (Urecholine) 50 mg PO TID [facility] Last Admin: 07/03/17 12:36 Dose: 50 mg Carbidopa/Levodopa (Sinemet Cr) 1 tab PO TID [facility] Last Admin: 07/03/17 12:34 Dose: 1 tab Docusate Sodium (Colace) 100 mg PO BID [facility] Last Admin: 07/03/17 09:39 Dose: 100 mg Famotidine (Pepcid) 40 mg PO HS [facility] Last Admin: 07/02/17 22:22 Dose: 40 mg Fluocinonide (Lidex 0.05% Oint) 1 applic TOP BID PRN PRN Reason: Rash Last Admin: 06/15/17 16:10 Dose: 1 applic Guaifenesin (Robitussin) 100 mg PO Q6 PRN PRN Reason: Cough Last Admin: 07/03/17 09:47 Dose: 100 mg Methylprednisolone (Solu-Medrol) 30 mg IVP DAILY [facility] Last Admin: 07/03/17 09:40 Dose: 30 mg Nystatin (Nystop Topical Powder) 1 applic TOP TID [facility] Last Admin: 07/03/17 12:35 Dose: 1 applic - Labs Labs: 06/19/17 08:35 06/19/17 08:35 PT 12.6 Seconds (9.8-13.1) 05/18/17 05:30 INR 1.1 (0.9-1.2) 05/18/17 05:30 APTT 34.9 Seconds (25.6-37.1) 05/18/17 05:30 Assessment and Plan (1) Cough Status: Acute (2) Bronchitis Status: Acute
[2017-07-03] MEDS: Nystatin 100,000 Units/ml Oral Susp 5 ml UD PO SCH ×2 (17:22→21:29)
--- NOTE | 2017-07-03 20:44 | CP.PCM.PN ---
Subjective - Date & Time of Evaluation Date of Evaluation: 07/03/17 Time of Evaluation: 22:22 - Subjective Subjective: Above noted Objective - Vital Signs/Intake and Output Vital Signs (last 24 hours): Temp Pulse Resp BP Pulse Ox 97.2 F L 63 17 117/64 100 07/03/17 16:12 07/03/17 16:12 07/03/17 16:12 07/03/17 16:12 07/03/17 16:12 - Medications Medications: Current Medications Acetaminophen (Tylenol 325mg Tab) 650 mg PO Q6 PRN PRN Reason: Pain, Mild (1-3) Last Admin: 06/21/17 18:54 Dose: 650 mg Albuterol/Ipratropium (Duoneb 3 Mg/0.5 Mg (3 Ml) Ud) 3 ml INH RQID [facility] Last Admin: 07/03/17 16:01 Dose: Not Given Amantadine HCl (Amantadine 100 Mg Cap) 100 mg PO BID [facility] Last Admin: 07/03/17 17:23 Dose: 100 mg Benzocaine/Menthol (Cepacol Sore Throat) 1 morro PO TID PRN PRN Reason: Sore Throat Last Admin: 06/25/17 05:57 Dose: 1 morro Bethanechol Chloride (Urecholine) 50 mg PO TID [facility] Last Admin: 07/03/17 17:23 Dose: 50 mg Carbidopa/Levodopa (Sinemet Cr) 1 tab PO TID [facility] Last Admin: 07/03/17 17:23 Dose: 1 tab Docusate Sodium (Colace) 100 mg PO BID [facility] Last Admin: 07/03/17 17:23 Dose: 100 mg Famotidine (Pepcid) 40 mg PO HS [facility] Last Admin: 07/02/17 22:22 Dose: 40 mg Fluocinonide (Lidex 0.05% Oint) 1 applic TOP BID PRN PRN Reason: Rash Last Admin: 06/15/17 16:10 Dose: 1 applic Guaifenesin (Robitussin) 100 mg PO Q6 PRN PRN Reason: Cough Last Admin: 07/03/17 09:47 Dose: 100 mg Methylprednisolone (Solu-Medrol) 30 mg IVP DAILY [facility] Last Admin: 07/03/17 09:40 Dose: 30 mg Nystatin (Nystop Topical Powder) 1 applic TOP TID [facility] Last Admin: 07/03/17 17:23 Dose: 1 applic Nystatin (Nystatin Oral Susp) 5 ml PO QID [facility] Last Admin: 07/03/17 17:22 Dose: 5 ml - Labs Labs: 06/19/17 08:35 06/19/17 08:35 PT 12.6 Seconds (9.8-13.1) 05/18/17 05:30 INR 1.1 (0.9-1.2) 05/18/17 05:30 APTT 34.9 Seconds (25.6-37.1) 05/18/17 05:30 - Respiratory Exam Respiratory Exam: NORMAL BREATHING PATTERN - Cardiovascular Exam Cardiovascular Exam: REGULAR RHYTHM - GI/Abdominal Exam GI & Abdominal Exam: Normal Bowel Sounds Assessment and Plan - Assessment and Plan (Free Text) Assessment: Coughing COPD Bronchodilators Steroids tapering Pulmonary Otitis externa Ciprodex MSA Parkinsons DX Shry Drager Low ext weakness?? Dx progression Fatigue -Meds?? reconsult neuro Disposition?? awaiting transfer to [place] Pt has medical decision making capacity but is financially vulnerable and benefits from legal guardianship Court and Social service involved Pt is [place] S/P Bradycardia Hypotenson chronic A-fib Sepsis ? Autonomic dysfunction? Thrombocytopenia chronic DVT prophylaxis SCD (no Lovenox due to thrombocytopenia) R shoulder pain Dec ROM xrays subluxation Ultram PRN PT Recuurent c-diff Gastroentritis? resolved LGI bleed Thrombocytopenia Decubitus ulcer buttocks Increased frequency urinating UA CS PVR all wnl
[2017-07-04] MEDS: Albuterol-Ipratrop 3 mg / 0.5 (3 ml) UD INH SCH (07:18)
[2017-07-04] MEDS: Nystatin 100,000 Units/ml Oral Susp 5 ml UD PO SCH ×4 (08:52→21:18)
[2017-07-04] MEDS: Bethanechol 50 MG TAB PO SCH ×3 (08:52→16:50)
[2017-07-04] MEDS: Carbidopa/Levodopa 50/200 CR PO SCH ×3 (08:52→16:50)
[2017-07-04] MEDS: MethylPREDNISolone 40 mg Vial IVP SCH (08:53)
--- NOTE | 2017-07-04 12:40 | CP.PCM.PN ---
Subjective - Date & Time of Evaluation Date of Evaluation: 07/04/17 Time of Evaluation: 12:39 - Subjective Subjective: The patient remains clinically stable on current medical regimen. Will discontinue Solu-Medrol and give 1 dose of IM Depo-Medrol 80 mg today. Objective - Vital Signs/Intake and Output Vital Signs (last 24 hours): Temp Pulse Resp BP Pulse Ox 97.8 F 61 17 120/73 95 07/04/17 08:14 07/04/17 08:14 07/04/17 08:14 07/04/17 08:14 07/04/17 08:14 - Medications Medications: Current Medications Acetaminophen (Tylenol 325mg Tab) 650 mg PO Q6 PRN PRN Reason: Pain, Mild (1-3) Last Admin: 06/21/17 18:54 Dose: 650 mg Amantadine HCl (Amantadine 100 Mg Cap) 100 mg PO BID [facility] Last Admin: 07/04/17 08:51 Dose: 100 mg Benzocaine/Menthol (Cepacol Sore Throat) 1 morro PO TID PRN PRN Reason: Sore Throat Last Admin: 06/25/17 05:57 Dose: 1 morro Bethanechol Chloride (Urecholine) 50 mg PO TID [facility] Last Admin: 07/04/17 08:52 Dose: 50 mg Carbidopa/Levodopa (Sinemet Cr) 1 tab PO TID [facility] Last Admin: 07/04/17 08:52 Dose: 1 tab Docusate Sodium (Colace) 100 mg PO BID [facility] Last Admin: 07/04/17 08:51 Dose: 100 mg Famotidine (Pepcid) 40 mg PO HS [facility] Last Admin: 07/03/17 21:29 Dose: 40 mg Fluocinonide (Lidex 0.05% Oint) 1 applic TOP BID PRN PRN Reason: Rash Last Admin: 06/15/17 16:10 Dose: 1 applic Guaifenesin (Robitussin) 100 mg PO Q6 PRN PRN Reason: Cough Last Admin: 07/03/17 09:47 Dose: 100 mg Levalbuterol HCl (Xopenex) 1.25 mg INH RQ8 [facility] Nystatin (Nystop Topical Powder) 1 applic TOP TID [facility] Last Admin: 07/04/17 08:52 Dose: 1 applic Nystatin (Nystatin Oral Susp) 5 ml PO QID [facility] Last Admin: 07/04/17 08:52 Dose: 5 ml - Labs Labs: 06/19/17 08:35 06/19/17 08:35 PT 12.6 Seconds (9.8-13.1) 05/18/17 05:30 INR 1.1 (0.9-1.2) 05/18/17 05:30 APTT 34.9 Seconds (25.6-37.1) 05/18/17 05:30 Assessment and Plan (1) Cough Status: Acute (2) Bronchitis Status: Acute
[2017-07-04] MEDS: Levalbuterol 1.25 MG/3 ML Inhal Soln UD INH SCH (16:53)
--- NOTE | 2017-07-04 18:10 | CP.PCM.PN ---
Subjective - Date & Time of Evaluation Date of Evaluation: 07/04/17 Time of Evaluation: 22:22 - Subjective Subjective: Above noted Objective - Vital Signs/Intake and Output Vital Signs (last 24 hours): Temp Pulse Resp BP Pulse Ox 97.9 F 70 14 122/72 97 07/04/17 17:00 07/04/17 17:00 07/04/17 17:00 07/04/17 17:00 07/04/17 17:00 - Medications Medications: Current Medications Acetaminophen (Tylenol 325mg Tab) 650 mg PO Q6 PRN PRN Reason: Pain, Mild (1-3) Last Admin: 06/21/17 18:54 Dose: 650 mg Amantadine HCl (Amantadine 100 Mg Cap) 100 mg PO BID [facility] Last Admin: 07/04/17 16:51 Dose: 100 mg Benzocaine/Menthol (Cepacol Sore Throat) 1 morro PO TID PRN PRN Reason: Sore Throat Last Admin: 06/25/17 05:57 Dose: 1 morro Bethanechol Chloride (Urecholine) 50 mg PO TID [facility] Last Admin: 07/04/17 16:50 Dose: 50 mg Carbidopa/Levodopa (Sinemet Cr) 1 tab PO TID [facility] Last Admin: 07/04/17 16:50 Dose: 1 tab Docusate Sodium (Colace) 100 mg PO BID [facility] Last Admin: 07/04/17 16:49 Dose: 100 mg Famotidine (Pepcid) 40 mg PO HS [facility] Last Admin: 07/03/17 21:29 Dose: 40 mg Fluocinonide (Lidex 0.05% Oint) 1 applic TOP BID PRN PRN Reason: Rash Last Admin: 06/15/17 16:10 Dose: 1 applic Guaifenesin (Robitussin) 100 mg PO Q6 PRN PRN Reason: Cough Last Admin: 07/03/17 09:47 Dose: 100 mg Levalbuterol HCl (Xopenex) 1.25 mg INH RQ8 [facility] Last Admin: 07/04/17 16:53 Dose: 1.25 mg Nystatin (Nystop Topical Powder) 1 applic TOP TID [facility] Last Admin: 07/04/17 16:49 Dose: 1 applic Nystatin (Nystatin Oral Susp) 5 ml PO QID [facility] Last Admin: 07/04/17 16:49 Dose: 5 ml - Labs Labs: 06/19/17 08:35 06/19/17 08:35 PT 12.6 Seconds (9.8-13.1) 05/18/17 05:30 INR 1.1 (0.9-1.2) 05/18/17 05:30 APTT 34.9 Seconds (25.6-37.1) 05/18/17 05:30 - Respiratory Exam Respiratory Exam: NORMAL BREATHING PATTERN - Cardiovascular Exam Cardiovascular Exam: REGULAR RHYTHM - GI/Abdominal Exam GI & Abdominal Exam: Normal Bowel Sounds Assessment and Plan - Assessment and Plan (Free Text) Assessment: Coughing COPD Bronchodilators Steroids Pulmonary Otitis externa Ciprodex MSA Parkinsons DX Shry Drager Low ext weakness?? Dx progression Fatigue -Meds?? reconsult neuro Disposition?? awaiting transfer to [place] Pt has medical decision making capacity but is financially vulnerable and benefits from legal guardianship Court and Social service involved Pt is [place] S/P Bradycardia Hypotenson chronic A-fib Sepsis ? Autonomic dysfunction? Thrombocytopenia chronic DVT prophylaxis SCD (no Lovenox due to thrombocytopenia) R shoulder pain Dec ROM xrays subluxation Ultram PRN PT Recuurent c-diff Gastroentritis? resolved LGI bleed Thrombocytopenia Decubitus ulcer buttocks Increased frequency urinating UA CS PVR all wnl
[2017-07-05] MEDS: Levalbuterol 1.25 MG/3 ML Inhal Soln UD INH SCH ×4 (00:08→23:44)
[2017-07-05] MEDS: Nystatin 100,000 Units/ml Oral Susp 5 ml UD PO SCH ×4 (08:21→22:17)
[2017-07-05] MEDS: Carbidopa/Levodopa 50/200 CR PO SCH ×3 (08:21→16:17)
[2017-07-05] MEDS: Bethanechol 50 MG TAB PO SCH ×3 (08:21→16:17)
[2017-07-06] MEDS: Levalbuterol 1.25 MG/3 ML Inhal Soln UD INH SCH ×2 (07:45→16:00)
[2017-07-06] MEDS: Carbidopa/Levodopa 50/200 CR PO SCH ×3 (08:03→16:33)
[2017-07-06] MEDS: Bethanechol 50 MG TAB PO SCH ×3 (08:03→16:34)
[2017-07-06] MEDS: Nystatin 100,000 Units/ml Oral Susp 5 ml UD PO SCH ×4 (08:03→21:11)
--- NOTE | 2017-07-06 14:59 | CP.PCM.PN ---
Subjective - Date & Time of Evaluation Date of Evaluation: 07/06/17 Time of Evaluation: 22:22 - Subjective Subjective: Doing well Objective - Vital Signs/Intake and Output Vital Signs (last 24 hours): Temp Pulse Resp BP Pulse Ox 98.1 F 62 18 132/75 98 07/06/17 07:31 07/06/17 07:31 07/06/17 07:31 07/06/17 07:31 07/06/17 07:31 - Medications Medications: Current Medications Acetaminophen (Tylenol 325mg Tab) 650 mg PO Q6 PRN PRN Reason: Pain, Mild (1-3) Last Admin: 06/21/17 18:54 Dose: 650 mg Amantadine HCl (Amantadine 100 Mg Cap) 100 mg PO BID [facility] Last Admin: 07/06/17 08:03 Dose: 100 mg Benzocaine/Menthol (Cepacol Sore Throat) 1 morro PO TID PRN PRN Reason: Sore Throat Last Admin: 06/25/17 05:57 Dose: 1 morro Bethanechol Chloride (Urecholine) 50 mg PO TID [facility] Last Admin: 07/06/17 12:32 Dose: 50 mg Carbidopa/Levodopa (Sinemet Cr) 1 tab PO TID [facility] Last Admin: 07/06/17 12:32 Dose: 1 tab Docusate Sodium (Colace) 100 mg PO BID [facility] Last Admin: 07/06/17 08:03 Dose: 100 mg Famotidine (Pepcid) 40 mg PO HS [facility] Last Admin: 07/05/17 22:17 Dose: 40 mg Fluocinonide (Lidex 0.05% Oint) 1 applic TOP BID PRN PRN Reason: Rash Last Admin: 06/15/17 16:10 Dose: 1 applic Guaifenesin (Robitussin) 100 mg PO Q6 PRN PRN Reason: Cough Last Admin: 07/03/17 09:47 Dose: 100 mg Levalbuterol HCl (Xopenex) 1.25 mg INH RQ8 [facility] Last Admin: 07/06/17 07:45 Dose: 1.25 mg Nystatin (Nystop Topical Powder) 1 applic TOP TID [facility] Last Admin: 07/06/17 12:31 Dose: 1 applic Nystatin (Nystatin Oral Susp) 5 ml PO QID [facility] Last Admin: 07/06/17 12:32 Dose: 5 ml - Labs Labs: 06/19/17 08:35 06/19/17 08:35 PT 12.6 Seconds (9.8-13.1) 05/18/17 05:30 INR 1.1 (0.9-1.2) 05/18/17 05:30 APTT 34.9 Seconds (25.6-37.1) 05/18/17 05:30 - Respiratory Exam Respiratory Exam: NORMAL BREATHING PATTERN - Cardiovascular Exam Cardiovascular Exam: REGULAR RHYTHM - GI/Abdominal Exam GI & Abdominal Exam: Normal Bowel Sounds Assessment and Plan - Assessment and Plan (Free Text) Assessment: Coughing COPD Bronchodilators Steroids Pulmonary Otitis externa Ciprodex MSA Parkinsons DX Shry Drager Low ext weakness?? Dx progression Fatigue -Meds?? reconsult neuro Disposition?? awaiting transfer to [place] Pt has medical decision making capacity but is financially vulnerable and benefits from legal guardianship Court and Social service involved Pt is [place] S/P Bradycardia Hypotenson chronic A-fib Sepsis ? Autonomic dysfunction? Thrombocytopenia chronic DVT prophylaxis SCD (no Lovenox due to thrombocytopenia) R shoulder pain Dec ROM xrays subluxation Ultram PRN PT Recuurent c-diff Gastroentritis? resolved LGI bleed Thrombocytopenia Decubitus ulcer buttocks Increased frequency urinating UA CS PVR all wnl
[2017-07-07] MEDS: Levalbuterol 1.25 MG/3 ML Inhal Soln UD INH SCH ×3 (00:16→16:29)
[2017-07-07] MEDS: Carbidopa/Levodopa 50/200 CR PO SCH ×3 (08:55→17:15)
[2017-07-07] MEDS: Bethanechol 50 MG TAB PO SCH ×3 (08:55→17:15)
[2017-07-07] MEDS: Nystatin 100,000 Units/ml Oral Susp 5 ml UD PO SCH ×4 (08:57→22:11)
[2017-07-08] MEDS: Levalbuterol 1.25 MG/3 ML Inhal Soln UD INH SCH ×4 (00:38→23:51)
[2017-07-08] MEDS: Bethanechol 50 MG TAB PO SCH ×3 (09:17→17:00)
[2017-07-08] MEDS: Carbidopa/Levodopa 50/200 CR PO SCH ×3 (09:17→17:01)
[2017-07-08] MEDS: Nystatin 100,000 Units/ml Oral Susp 5 ml UD PO SCH ×4 (09:20→21:32)
[2017-07-08] MEDS: guaiFENesin 100 mg/5 ml Syrup UD PO PRN (09:20)
--- NOTE | 2017-07-08 19:52 | CP.PCM.PN ---
Subjective - Date & Time of Evaluation Date of Evaluation: 07/08/17 Time of Evaluation: 22:22 - Subjective Subjective: Above noted Objective - Vital Signs/Intake and Output Vital Signs (last 24 hours): Temp Pulse Resp BP Pulse Ox 97.5 F L 63 18 115/61 99 07/08/17 15:39 07/08/17 15:39 07/08/17 15:39 07/08/17 15:39 07/08/17 15:39 - Medications Medications: Current Medications Acetaminophen (Tylenol 325mg Tab) 650 mg PO Q6 PRN PRN Reason: Pain, Mild (1-3) Last Admin: 06/21/17 18:54 Dose: 650 mg Amantadine HCl (Amantadine 100 Mg Cap) 100 mg PO BID [facility] Last Admin: 07/08/17 17:00 Dose: 100 mg Benzocaine/Menthol (Cepacol Sore Throat) 1 morro PO TID PRN PRN Reason: Sore Throat Last Admin: 06/25/17 05:57 Dose: 1 morro Bethanechol Chloride (Urecholine) 50 mg PO TID [facility] Last Admin: 07/08/17 17:00 Dose: 50 mg Carbidopa/Levodopa (Sinemet Cr) 1 tab PO TID [facility] Last Admin: 07/08/17 17:01 Dose: 1 tab Docusate Sodium (Colace) 100 mg PO BID [facility] Last Admin: 07/08/17 17:00 Dose: 100 mg Famotidine (Pepcid) 40 mg PO HS [facility] Last Admin: 07/07/17 22:11 Dose: 40 mg Fluocinonide (Lidex 0.05% Oint) 1 applic TOP BID PRN PRN Reason: Rash Last Admin: 06/15/17 16:10 Dose: 1 applic Levalbuterol HCl (Xopenex) 1.25 mg INH RQ8 [facility] Last Admin: 07/08/17 16:29 Dose: Not Given Nystatin (Nystop Topical Powder) 1 applic TOP TID [facility] Last Admin: 07/08/17 17:01 Dose: 1 applic Nystatin (Nystatin Oral Susp) 5 ml PO QID [facility] Last Admin: 07/08/17 17:00 Dose: 5 ml - Labs Labs: 06/19/17 08:35 06/19/17 08:35 PT 12.6 Seconds (9.8-13.1) 05/18/17 05:30 INR 1.1 (0.9-1.2) 05/18/17 05:30 APTT 34.9 Seconds (25.6-37.1) 05/18/17 05:30 - Respiratory Exam Respiratory Exam: NORMAL BREATHING PATTERN - Cardiovascular Exam Cardiovascular Exam: REGULAR RHYTHM - GI/Abdominal Exam GI & Abdominal Exam: Normal Bowel Sounds Assessment and Plan - Assessment and Plan (Free Text) Assessment: Coughing COPD Bronchodilators Steroids Pulmonary Otitis externa Ciprodex MSA Parkinsons DX Shry Drager Low ext weakness?? Dx progression Fatigue -Meds?? reconsult neuro Disposition?? awaiting transfer to [place] Pt has medical decision making capacity but is financially vulnerable and benefits from legal guardianship Court and Social service involved Pt is [place] [employer] S/P Bradycardia Hypotenson chronic A-fib Sepsis ? Autonomic dysfunction? Thrombocytopenia chronic DVT prophylaxis SCD (no Lovenox due to thrombocytopenia) R shoulder pain Dec ROM xrays subluxation Ultram PRN PT Recuurent c-diff Gastroentritis? resolved LGI bleed Thrombocytopenia Decubitus ulcer buttocks Increased frequency urinating UA CS PVR all wnl
[2017-07-09] MEDS: Levalbuterol 1.25 MG/3 ML Inhal Soln UD INH SCH ×2 (08:45→15:41)
[2017-07-09] MEDS: Nystatin 100,000 Units/ml Oral Susp 5 ml UD PO SCH ×4 (09:32→22:09)
[2017-07-09] MEDS: Carbidopa/Levodopa 50/200 CR PO SCH ×3 (09:32→16:10)
[2017-07-09] MEDS: Bethanechol 50 MG TAB PO SCH ×3 (09:33→16:10)
--- NOTE | 2017-07-09 19:47 | CP.PCM.PN ---
Subjective - Date & Time of Evaluation Date of Evaluation: 07/09/17 Time of Evaluation: 22:22 - Subjective Subjective: Above noted Objective - Vital Signs/Intake and Output Vital Signs (last 24 hours): Temp Pulse Resp BP Pulse Ox 97.3 F L 73 20 110/69 97 07/09/17 16:10 07/09/17 16:10 07/09/17 16:10 07/09/17 16:10 07/09/17 16:10 - Medications Medications: Current Medications Acetaminophen (Tylenol 325mg Tab) 650 mg PO Q6 PRN PRN Reason: Pain, Mild (1-3) Last Admin: 06/21/17 18:54 Dose: 650 mg Amantadine HCl (Amantadine 100 Mg Cap) 100 mg PO BID [facility] Last Admin: 07/09/17 16:10 Dose: 100 mg Benzocaine/Menthol (Cepacol Sore Throat) 1 morro PO TID PRN PRN Reason: Sore Throat Last Admin: 06/25/17 05:57 Dose: 1 morro Bethanechol Chloride (Urecholine) 50 mg PO TID [facility] Last Admin: 07/09/17 16:10 Dose: 50 mg Carbidopa/Levodopa (Sinemet Cr) 1 tab PO TID [facility] Last Admin: 07/09/17 16:10 Dose: 1 tab Docusate Sodium (Colace) 100 mg PO BID [facility] Last Admin: 07/09/17 16:11 Dose: 100 mg Famotidine (Pepcid) 40 mg PO HS [facility] Last Admin: 07/08/17 21:31 Dose: 40 mg Fluocinonide (Lidex 0.05% Oint) 1 applic TOP BID PRN PRN Reason: Rash Last Admin: 06/15/17 16:10 Dose: 1 applic Levalbuterol HCl (Xopenex) 1.25 mg INH RQ8 [facility] Last Admin: 07/09/17 15:41 Dose: 1.25 mg Nystatin (Nystop Topical Powder) 1 applic TOP TID [facility] Last Admin: 07/09/17 16:10 Dose: 1 applic Nystatin (Nystatin Oral Susp) 5 ml PO QID [facility] Last Admin: 07/09/17 16:09 Dose: 5 ml - Labs Labs: 06/19/17 08:35 06/19/17 08:35 PT 12.6 Seconds (9.8-13.1) 05/18/17 05:30 INR 1.1 (0.9-1.2) 05/18/17 05:30 APTT 34.9 Seconds (25.6-37.1) 05/18/17 05:30 - Respiratory Exam Respiratory Exam: NORMAL BREATHING PATTERN - Cardiovascular Exam Cardiovascular Exam: Tachycardia, REGULAR RHYTHM - GI/Abdominal Exam GI & Abdominal Exam: Normal Bowel Sounds - Rectal Exam Rectal Exam: NORMAL INSPECTION Assessment and Plan - Assessment and Plan (Free Text) Assessment: Coughing COPD Bronchodilators Steroids Pulmonary Otitis externa Ciprodex MSA Parkinsons DX Shry Drager Low ext weakness?? Dx progression Fatigue -Meds?? reconsult neuro Disposition?? awaiting transfer to [place] Pt has medical decision making capacity but is financially vulnerable and benefits from legal guardianship Court and Social service involved Pt is [place] S/P Bradycardia Hypotenson chronic A-fib Sepsis ? Autonomic dysfunction? Thrombocytopenia chronic DVT prophylaxis SCD (no Lovenox due to thrombocytopenia) R shoulder pain Dec ROM xrays subluxation Ultram PRN PT Recuurent c-diff Gastroentritis? resolved LGI bleed Thrombocytopenia Decubitus ulcer buttocks Increased frequency urinating UA CS PVR all wnl
[2017-07-10] MEDS: Levalbuterol 1.25 MG/3 ML Inhal Soln UD INH SCH ×4 (00:15→16:19)
[2017-07-10] MEDS: Carbidopa/Levodopa 50/200 CR PO SCH ×3 (08:35→17:22)
[2017-07-10] MEDS: Nystatin 100,000 Units/ml Oral Susp 5 ml UD PO SCH ×4 (08:36→22:11)
[2017-07-10] MEDS: Bethanechol 50 MG TAB PO SCH ×3 (08:36→17:22)
--- NOTE | 2017-07-10 21:01 | CP.PCM.PN ---
Subjective - Date & Time of Evaluation Date of Evaluation: 07/10/17 Time of Evaluation: 22:22 - Subjective Subjective: Doing well Objective - Vital Signs/Intake and Output Vital Signs (last 24 hours): Temp Pulse Resp BP Pulse Ox 97.8 F 59 L 18 100/54 L 96 07/10/17 15:43 07/10/17 15:43 07/10/17 15:43 07/10/17 15:43 07/10/17 15:43 - Medications Medications: Current Medications Acetaminophen (Tylenol 325mg Tab) 650 mg PO Q6 PRN PRN Reason: Pain, Mild (1-3) Last Admin: 06/21/17 18:54 Dose: 650 mg Amantadine HCl (Amantadine 100 Mg Cap) 100 mg PO BID [facility] Last Admin: 07/10/17 17:22 Dose: 100 mg Benzocaine/Menthol (Cepacol Sore Throat) 1 morro PO TID PRN PRN Reason: Sore Throat Last Admin: 06/25/17 05:57 Dose: 1 morro Bethanechol Chloride (Urecholine) 50 mg PO TID [facility] Last Admin: 07/10/17 17:22 Dose: 50 mg Carbidopa/Levodopa (Sinemet Cr) 1 tab PO TID [facility] Last Admin: 07/10/17 17:22 Dose: 1 tab Docusate Sodium (Colace) 100 mg PO BID [facility] Last Admin: 07/10/17 17:23 Dose: 100 mg Famotidine (Pepcid) 40 mg PO HS [facility] Last Admin: 07/09/17 22:09 Dose: 40 mg Fluocinonide (Lidex 0.05% Oint) 1 applic TOP BID PRN PRN Reason: Rash Last Admin: 06/15/17 16:10 Dose: 1 applic Levalbuterol HCl (Xopenex) 1.25 mg INH RQ8 [facility] Last Admin: 07/10/17 16:19 Dose: 1.25 mg Nystatin (Nystop Topical Powder) 1 applic TOP TID [facility] Last Admin: 07/10/17 17:22 Dose: 1 applic Nystatin (Nystatin Oral Susp) 5 ml PO QID [facility] Last Admin: 07/10/17 17:22 Dose: 5 ml - Labs Labs: 06/19/17 08:35 06/19/17 08:35 PT 12.6 Seconds (9.8-13.1) 05/18/17 05:30 INR 1.1 (0.9-1.2) 05/18/17 05:30 APTT 34.9 Seconds (25.6-37.1) 05/18/17 05:30 - Respiratory Exam Respiratory Exam: NORMAL BREATHING PATTERN - Cardiovascular Exam Cardiovascular Exam: REGULAR RHYTHM - GI/Abdominal Exam GI & Abdominal Exam: Normal Bowel Sounds Assessment and Plan - Assessment and Plan (Free Text) Assessment: COPD Bronchodilators Steroids Pulmonary Otitis externa Ciprodex MSA Parkinsons DX Shry Drager Low ext weakness?? Dx progression Fatigue -Meds?? reconsult neuro Disposition?? awaiting transfer to [place] Pt has medical decision making capacity but is financially vulnerable and benefits from legal guardianship Court and Social service involved Pt is [place] [employer] S/P Bradycardia Hypotenson chronic A-fib Sepsis ? Autonomic dysfunction? Thrombocytopenia chronic DVT prophylaxis SCD (no Lovenox due to thrombocytopenia) R shoulder pain Dec ROM xrays subluxation Ultram PRN PT Recuurent c-diff Gastroentritis? resolved LGI bleed Thrombocytopenia Decubitus ulcer buttocks Increased frequency urinating UA CS PVR all wnl
[2017-07-11] MEDS: Levalbuterol 1.25 MG/3 ML Inhal Soln UD INH SCH ×3 (08:29→15:58)
[2017-07-11] MEDS: Nystatin 100,000 Units/ml Oral Susp 5 ml UD PO SCH ×4 (08:39→21:49)
[2017-07-11] MEDS: Carbidopa/Levodopa 50/200 CR PO SCH ×3 (08:40→16:02)
[2017-07-11] MEDS: Bethanechol 50 MG TAB PO SCH ×3 (08:40→16:02)
[2017-07-12] MEDS: Levalbuterol 1.25 MG/3 ML Inhal Soln UD INH SCH ×4 (07:22→23:12)
[2017-07-12] MEDS: Carbidopa/Levodopa 50/200 CR PO SCH ×3 (08:17→16:16)
[2017-07-12] MEDS: Nystatin 100,000 Units/ml Oral Susp 5 ml UD PO SCH ×4 (08:17→21:37)
[2017-07-12] MEDS: Bethanechol 50 MG TAB PO SCH ×3 (08:18→16:17)
[2017-07-13] MEDS: Levalbuterol 1.25 MG/3 ML Inhal Soln UD INH SCH ×3 (00:16→15:00)
[2017-07-13] MEDS: Nystatin 100,000 Units/ml Oral Susp 5 ml UD PO SCH ×4 (10:10→21:38)
[2017-07-13] MEDS: Carbidopa/Levodopa 50/200 CR PO SCH ×3 (10:10→17:18)
[2017-07-13] MEDS: Bethanechol 50 MG TAB PO SCH ×3 (10:11→17:18)
[2017-07-14] MEDS: Levalbuterol 1.25 MG/3 ML Inhal Soln UD INH SCH ×4 (00:48→23:38)
[2017-07-14] MEDS: Nystatin 100,000 Units/ml Oral Susp 5 ml UD PO SCH ×4 (08:35→22:20)
[2017-07-14] MEDS: Carbidopa/Levodopa 50/200 CR PO SCH ×3 (08:36→18:21)
[2017-07-14] MEDS: Bethanechol 50 MG TAB PO SCH ×3 (08:36→18:22)
[2017-07-15] MEDS: Levalbuterol 1.25 MG/3 ML Inhal Soln UD INH SCH ×3 (07:41→23:28)
[2017-07-15] MEDS: Nystatin 100,000 Units/ml Oral Susp 5 ml UD PO SCH ×4 (09:26→21:36)
[2017-07-15] MEDS: Carbidopa/Levodopa 50/200 CR PO SCH ×3 (10:48→16:41)
[2017-07-15] MEDS: Bethanechol 50 MG TAB PO SCH ×2 (14:18→16:42)
--- NOTE | 2017-07-15 19:54 | CP.PCM.PN ---
Subjective - Date & Time of Evaluation Date of Evaluation: 07/15/17 Time of Evaluation: 22:22 - Subjective Subjective: Above noted Objective - Vital Signs/Intake and Output Vital Signs (last 24 hours): Temp Pulse Resp BP Pulse Ox 97.6 F 76 20 130/75 98 07/15/17 15:41 07/15/17 15:41 07/15/17 15:41 07/15/17 15:41 07/15/17 15:41 - Medications Medications: Current Medications Acetaminophen (Tylenol 325mg Tab) 650 mg PO Q6 PRN PRN Reason: Pain, moderate (4-7) Amantadine HCl (Amantadine 100 Mg Cap) 100 mg PO BID [facility] Last Admin: 07/15/17 16:41 Dose: 100 mg Bethanechol Chloride (Urecholine) 50 mg PO TID [facility] Last Admin: 07/15/17 16:42 Dose: 50 mg Carbidopa/Levodopa (Sinemet Cr) 1 tab PO TID [facility] Last Admin: 07/15/17 16:41 Dose: 1 tab Docusate Sodium (Colace) 100 mg PO BID [facility] Last Admin: 07/15/17 16:41 Dose: 100 mg Famotidine (Pepcid) 40 mg PO HS [facility] Fluocinonide (Lidex 0.05% Oint) 1 applic TOP BID PRN PRN Reason: Rash Levalbuterol HCl (Xopenex) 1.25 mg INH RQ8 [facility] Last Admin: 07/15/17 07:41 Dose: Not Given Nystatin (Nystatin Oral Susp) 5 ml PO QID [facility] Last Admin: 07/15/17 16:41 Dose: 5 ml Nystatin (Nystop Topical Powder) 1 applic TOP TID [facility] Last Admin: 07/15/17 16:41 Dose: 1 applic - Labs Labs: 06/19/17 08:35 06/19/17 08:35 PT 12.6 Seconds (9.8-13.1) 05/18/17 05:30 INR 1.1 (0.9-1.2) 05/18/17 05:30 APTT 34.9 Seconds (25.6-37.1) 05/18/17 05:30 - Respiratory Exam Respiratory Exam: NORMAL BREATHING PATTERN - Cardiovascular Exam Cardiovascular Exam: REGULAR RHYTHM - GI/Abdominal Exam GI & Abdominal Exam: Normal Bowel Sounds Assessment and Plan - Assessment and Plan (Free Text) Assessment: COPD Bronchodilators Steroids Pulmonary Otitis externa Ciprodex MSA Parkinsons DX Shry Drager Low ext weakness?? Dx progression Fatigue -Meds?? reconsult neuro Disposition?? awaiting transfer to [place] Pt has medical decision making capacity but is financially vulnerable and benefits from legal guardianship Court and Social service involved Pt is [place] WWII S/P Bradycardia Hypotenson chronic A-fib Sepsis ? Autonomic dysfunction? Thrombocytopenia chronic DVT prophylaxis SCD (no Lovenox due to thrombocytopenia) R shoulder pain Dec ROM xrays subluxation Ultram PRN PT Recuurent c-diff Gastroentritis? resolved LGI bleed Thrombocytopenia Decubitus ulcer buttocks Increased frequency urinating UA CS PVR all wnl
[2017-07-16] MEDS: Levalbuterol 1.25 MG/3 ML Inhal Soln UD INH SCH ×3 (07:54→23:46)
[2017-07-16] MEDS: Nystatin 100,000 Units/ml Oral Susp 5 ml UD PO SCH ×4 (09:31→23:52)
[2017-07-16] MEDS: Bethanechol 50 MG TAB PO SCH ×3 (09:32→17:33)
[2017-07-16] MEDS: Carbidopa/Levodopa 50/200 CR PO SCH ×3 (09:32→17:32)
--- NOTE | 2017-07-16 23:27 | CP.PCM.PN ---
Subjective - Date & Time of Evaluation Date of Evaluation: 07/16/17 Time of Evaluation: 22:22 - Subjective Subjective: Above noted Objective - Vital Signs/Intake and Output Vital Signs (last 24 hours): Temp Pulse Resp BP Pulse Ox 97.4 F L 63 20 105/54 L 99 07/16/17 16:10 07/16/17 16:10 07/16/17 16:10 07/16/17 16:10 07/16/17 16:10 - Medications Medications: Current Medications Acetaminophen (Tylenol 325mg Tab) 650 mg PO Q6 PRN PRN Reason: Pain, moderate (4-7) Amantadine HCl (Amantadine 100 Mg Cap) 100 mg PO BID [facility] Last Admin: 07/16/17 17:31 Dose: 100 mg Bethanechol Chloride (Urecholine) 50 mg PO TID [facility] Last Admin: 07/16/17 17:33 Dose: 50 mg Carbidopa/Levodopa (Sinemet Cr) 1 tab PO TID [facility] Last Admin: 07/16/17 17:32 Dose: 1 tab Docusate Sodium (Colace) 100 mg PO BID [facility] Last Admin: 07/16/17 17:32 Dose: 100 mg Famotidine (Pepcid) 40 mg PO HS [facility] Last Admin: 07/15/17 21:37 Dose: 40 mg Fluocinonide (Lidex 0.05% Oint) 1 applic TOP BID PRN PRN Reason: Rash Levalbuterol HCl (Xopenex) 1.25 mg INH RQ8 [facility] Last Admin: 07/16/17 16:32 Dose: Not Given Nystatin (Nystatin Oral Susp) 5 ml PO QID [facility] Last Admin: 07/16/17 17:32 Dose: 5 ml Nystatin (Nystop Topical Powder) 1 applic TOP TID [facility] Last Admin: 07/16/17 17:32 Dose: 1 applic - Labs Labs: 06/19/17 08:35 06/19/17 08:35 PT 12.6 Seconds (9.8-13.1) 05/18/17 05:30 INR 1.1 (0.9-1.2) 05/18/17 05:30 APTT 34.9 Seconds (25.6-37.1) 05/18/17 05:30 - Respiratory Exam Respiratory Exam: NORMAL BREATHING PATTERN - Cardiovascular Exam Cardiovascular Exam: REGULAR RHYTHM Assessment and Plan - Assessment and Plan (Free Text) Assessment: MSA Parkinsons DX Shry Kamalaer Low ext weakness?? Dx progression Fatigue -Meds?? reconsult neuro Disposition?? [place] transfer to [place] Pt has medical decision making capacity but is financially vulnerable and benefits from legal guardianship Court and Social service involved Pt is [place] WWII COPD Bronchodilators Steroids Pulmonary S/P Bradycardia Hypotenson chronic A-fib Sepsis ? Autonomic dysfunction? Thrombocytopenia chronic DVT prophylaxis SCD (no Lovenox due to thrombocytopenia) R shoulder pain Dec ROM xrays subluxation Ultram PRN PT Recuurent c-diff Gastroentritis? resolved LGI bleed Thrombocytopenia Decubitus ulcer buttocks Increased frequency urinating UA CS PVR all wnl Otitis externa Ciprodex
[2017-07-17] MEDS: Levalbuterol 1.25 MG/3 ML Inhal Soln UD INH SCH ×3 (07:52→23:03)
[2017-07-17] MEDS: Carbidopa/Levodopa 50/200 CR PO SCH ×3 (08:22→16:01)
[2017-07-17] MEDS: Nystatin 100,000 Units/ml Oral Susp 5 ml UD PO SCH ×4 (08:22→20:59)
[2017-07-17] MEDS: Bethanechol 50 MG TAB PO SCH ×3 (08:23→16:01)
--- NOTE | 2017-07-17 19:35 | CP.PCM.PN ---
Subjective - Date & Time of Evaluation Date of Evaluation: 07/17/17 Time of Evaluation: 22:22 - Subjective Subjective: Resting Objective - Vital Signs/Intake and Output Vital Signs (last 24 hours): Temp Pulse Resp BP Pulse Ox 97.5 F L 63 20 103/70 94 L 07/17/17 16:19 07/17/17 16:19 07/17/17 16:19 07/17/17 16:19 07/17/17 16:19 - Medications Medications: Current Medications Acetaminophen (Tylenol 325mg Tab) 650 mg PO Q6 PRN PRN Reason: Pain, moderate (4-7) Last Admin: 07/17/17 17:19 Dose: 650 mg Amantadine HCl (Amantadine 100 Mg Cap) 100 mg PO BID [facility] Last Admin: 07/17/17 16:01 Dose: 100 mg Bethanechol Chloride (Urecholine) 50 mg PO TID [facility] Last Admin: 07/17/17 16:01 Dose: 50 mg Carbidopa/Levodopa (Sinemet Cr) 1 tab PO TID [facility] Last Admin: 07/17/17 16:01 Dose: 1 tab Docusate Sodium (Colace) 100 mg PO BID [facility] Last Admin: 07/17/17 16:01 Dose: 100 mg Famotidine (Pepcid) 40 mg PO HS [facility] Last Admin: 07/16/17 23:00 Dose: 40 mg Fluocinonide (Lidex 0.05% Oint) 1 applic TOP BID PRN PRN Reason: Rash Levalbuterol HCl (Xopenex) 1.25 mg INH RQ8 [facility] Last Admin: 07/17/17 15:47 Dose: Not Given Nystatin (Nystatin Oral Susp) 5 ml PO QID [facility] Last Admin: 07/17/17 16:01 Dose: 5 ml Nystatin (Nystop Topical Powder) 1 applic TOP TID [facility] Last Admin: 07/17/17 16:01 Dose: 1 applic - Labs Labs: 06/19/17 08:35 06/19/17 08:35 PT 12.6 Seconds (9.8-13.1) 05/18/17 05:30 INR 1.1 (0.9-1.2) 05/18/17 05:30 APTT 34.9 Seconds (25.6-37.1) 05/18/17 05:30 - Respiratory Exam Respiratory Exam: NORMAL BREATHING PATTERN - Cardiovascular Exam Cardiovascular Exam: REGULAR RHYTHM - GI/Abdominal Exam GI & Abdominal Exam: Normal Bowel Sounds Assessment and Plan - Assessment and Plan (Free Text) Assessment: MSA Parkinsons DX Shry Drager Low ext weakness?? Dx progression Fatigue -Meds?? reconsult neuro Disposition?? awaiting transfer to [place] Pt has medical decision making capacity but is financially vulnerable and benefits from legal guardianship Court and Social service involved Pt is [place] WWII COPD Bronchodilators Steroids Pulmonary S/P Bradycardia Hypotenson chronic A-fib Sepsis ? Autonomic dysfunction? Thrombocytopenia chronic DVT prophylaxis SCD (no Lovenox due to thrombocytopenia) R shoulder pain Dec ROM xrays subluxation Ultram PRN PT Recuurent c-diff Gastroentritis? resolved LGI bleed Thrombocytopenia Decubitus ulcer buttocks Increased frequency urinating UA CS PVR all wnl Otitis externa Ciprodex
[2017-07-18] MEDS: Levalbuterol 1.25 MG/3 ML Inhal Soln UD INH SCH ×3 (07:22→23:49)
[2017-07-18] MEDS: Carbidopa/Levodopa 50/200 CR PO SCH ×3 (08:42→17:23)
[2017-07-18] MEDS: Bethanechol 50 MG TAB PO SCH ×3 (08:42→17:23)
[2017-07-18] MEDS: Nystatin 100,000 Units/ml Oral Susp 5 ml UD PO SCH ×3 (08:42→17:23)
--- NOTE | 2017-07-18 18:16 | CP.PCM.PN ---
Subjective - Date & Time of Evaluation Date of Evaluation: 07/18/17 Time of Evaluation: 22:22 - Subjective Subjective: Above noted Objective - Vital Signs/Intake and Output Vital Signs (last 24 hours): Temp Pulse Resp BP Pulse Ox 97.4 F L 63 20 125/64 97 07/18/17 16:30 07/18/17 16:30 07/18/17 16:30 07/18/17 16:30 07/18/17 16:30 - Medications Medications: Current Medications Acetaminophen (Tylenol 325mg Tab) 650 mg PO Q6 PRN PRN Reason: Pain, moderate (4-7) Last Admin: 07/17/17 17:19 Dose: 650 mg Amantadine HCl (Amantadine 100 Mg Cap) 100 mg PO BID [facility] Last Admin: 07/18/17 17:23 Dose: 100 mg Bethanechol Chloride (Urecholine) 50 mg PO TID [facility] Last Admin: 07/18/17 17:23 Dose: 50 mg Carbidopa/Levodopa (Sinemet Cr) 1 tab PO TID [facility] Last Admin: 07/18/17 17:23 Dose: 1 tab Docusate Sodium (Colace) 100 mg PO BID [facility] Last Admin: 07/18/17 17:23 Dose: 100 mg Famotidine (Pepcid) 40 mg PO HS [facility] Last Admin: 07/17/17 20:59 Dose: 40 mg Fluocinonide (Lidex 0.05% Oint) 1 applic TOP BID PRN PRN Reason: Rash Levalbuterol HCl (Xopenex) 1.25 mg INH RQ8 [facility] Last Admin: 07/18/17 15:47 Dose: Not Given Nystatin (Nystop Topical Powder) 1 applic TOP TID [facility] Last Admin: 07/18/17 17:23 Dose: 1 applic - Labs Labs: 06/19/17 08:35 06/19/17 08:35 PT 12.6 Seconds (9.8-13.1) 05/18/17 05:30 INR 1.1 (0.9-1.2) 05/18/17 05:30 APTT 34.9 Seconds (25.6-37.1) 05/18/17 05:30 - Respiratory Exam Respiratory Exam: NORMAL BREATHING PATTERN - Cardiovascular Exam Cardiovascular Exam: REGULAR RHYTHM - GI/Abdominal Exam GI & Abdominal Exam: Normal Bowel Sounds Assessment and Plan - Assessment and Plan (Free Text) Assessment: MSA Parkinsons DX Shry Drager Low ext weakness?? Dx progression Fatigue -Meds?? reconsult neuro Disposition?? awaiting transfer to [place] Pt has medical decision making capacity but is financially vulnerable and benefits from legal guardianship Court and Social service involved Pt is [place] WWII COPD Bronchodilators Steroids Pulmonary S/P Bradycardia Hypotenson chronic A-fib Sepsis ? Autonomic dysfunction? Thrombocytopenia chronic DVT prophylaxis SCD (no Lovenox due to thrombocytopenia) R shoulder pain Dec ROM xrays subluxation Ultram PRN PT Recuurent c-diff Gastroentritis? resolved LGI bleed Thrombocytopenia Decubitus ulcer buttocks Increased frequency urinating UA CS PVR all wnl Otitis externa Ciprodex
[2017-07-19] MEDS: Levalbuterol 1.25 MG/3 ML Inhal Soln UD INH SCH ×3 (08:28→23:41)
[2017-07-19] MEDS: Bethanechol 50 MG TAB PO SCH ×3 (08:55→16:58)
[2017-07-19] MEDS: Carbidopa/Levodopa 50/200 CR PO SCH ×3 (10:58→16:57)
--- NOTE | 2017-07-19 18:14 | CP.PCM.PN ---
Subjective - Date & Time of Evaluation Date of Evaluation: 07/19/17 Time of Evaluation: 22:22 - Subjective Subjective: Above noted Objective - Vital Signs/Intake and Output Vital Signs (last 24 hours): Temp Pulse Resp BP Pulse Ox 97.3 F L 102 H 20 99/51 L 91 L 07/19/17 17:06 07/19/17 17:06 07/19/17 17:06 07/19/17 17:06 07/19/17 17:06 - Medications Medications: Current Medications Acetaminophen (Tylenol 325mg Tab) 650 mg PO Q6 PRN PRN Reason: Pain, moderate (4-7) Last Admin: 07/17/17 17:19 Dose: 650 mg Amantadine HCl (Amantadine 100 Mg Cap) 100 mg PO BID [facility] Last Admin: 07/19/17 16:57 Dose: 100 mg Bethanechol Chloride (Urecholine) 50 mg PO TID [facility] Last Admin: 07/19/17 16:58 Dose: 50 mg Carbidopa/Levodopa (Sinemet Cr) 1 tab PO TID [facility] Last Admin: 07/19/17 16:57 Dose: 1 tab Docusate Sodium (Colace) 100 mg PO BID [facility] Last Admin: 07/19/17 16:58 Dose: 100 mg Famotidine (Pepcid) 40 mg PO HS [facility] Last Admin: 07/18/17 22:03 Dose: 40 mg Fluocinonide (Lidex 0.05% Oint) 1 applic TOP BID PRN PRN Reason: Rash Levalbuterol HCl (Xopenex) 1.25 mg INH RQ8 [facility] Last Admin: 07/19/17 15:40 Dose: Not Given Nystatin (Nystop Topical Powder) 1 applic TOP TID [facility] Last Admin: 07/19/17 16:57 Dose: 1 applic - Labs Labs: 06/19/17 08:35 06/19/17 08:35 PT 12.6 Seconds (9.8-13.1) 05/18/17 05:30 INR 1.1 (0.9-1.2) 05/18/17 05:30 APTT 34.9 Seconds (25.6-37.1) 05/18/17 05:30 Assessment and Plan - Assessment and Plan (Free Text) Assessment: MSA Parkinsons DX Shry Drager Low ext weakness?? Dx progression Fatigue -Meds?? reconsult neuro Disposition?? awaiting transfer to [place] Pt has medical decision making capacity but is financially vulnerable and benefits from legal guardianship Court and Social service involved Pt is WW[employer] COPD Bronchodilators Steroids Pulmonary S/P Bradycardia Hypotenson chronic A-fib Sepsis ? Autonomic dysfunction? Thrombocytopenia chronic DVT prophylaxis SCD (no Lovenox due to thrombocytopenia) R shoulder pain Dec ROM xrays subluxation Ultram PRN PT Recuurent c-diff Gastroentritis? resolved LGI bleed Thrombocytopenia Decubitus ulcer buttocks Increased frequency urinating UA CS PVR all wnl Otitis externa Ciprodex
[2017-07-20] MEDS: Levalbuterol 1.25 MG/3 ML Inhal Soln UD INH SCH ×2 (08:16→23:28)
[2017-07-20] MEDS: Carbidopa/Levodopa 50/200 CR PO SCH ×3 (08:44→17:36)
[2017-07-20] MEDS: Bethanechol 50 MG TAB PO SCH ×3 (08:44→17:36)
--- NOTE | 2017-07-20 21:54 | CP.PCM.PN ---
Subjective - Date & Time of Evaluation Date of Evaluation: 07/20/17 Time of Evaluation: 22:22 - Subjective Subjective: Above noted Objective - Vital Signs/Intake and Output Vital Signs (last 24 hours): Temp Pulse Resp BP Pulse Ox 98 F 65 20 102/61 98 07/20/17 15:59 07/20/17 15:59 07/20/17 15:59 07/20/17 15:59 07/20/17 15:59 - Medications Medications: Current Medications Acetaminophen (Tylenol 325mg Tab) 650 mg PO Q6 PRN PRN Reason: Pain, moderate (4-7) Last Admin: 07/17/17 17:19 Dose: 650 mg Amantadine HCl (Amantadine 100 Mg Cap) 100 mg PO BID [facility] Last Admin: 07/20/17 17:36 Dose: 100 mg Bethanechol Chloride (Urecholine) 50 mg PO TID [facility] Last Admin: 07/20/17 17:36 Dose: 50 mg Carbidopa/Levodopa (Sinemet Cr) 1 tab PO TID [facility] Last Admin: 07/20/17 17:36 Dose: 1 tab Docusate Sodium (Colace) 100 mg PO BID [facility] Last Admin: 07/20/17 17:36 Dose: 100 mg Famotidine (Pepcid) 40 mg PO HS [facility] Last Admin: 07/20/17 21:15 Dose: 40 mg Fluocinonide (Lidex 0.05% Oint) 1 applic TOP BID PRN PRN Reason: Rash Levalbuterol HCl (Xopenex) 1.25 mg INH RQ8 [facility] Last Admin: 07/20/17 08:16 Dose: 1.25 mg Nystatin (Nystop Topical Powder) 1 applic TOP TID [facility] Last Admin: 07/20/17 17:36 Dose: 1 applic - Labs Labs: 06/19/17 08:35 06/19/17 08:35 PT 12.6 Seconds (9.8-13.1) 05/18/17 05:30 INR 1.1 (0.9-1.2) 05/18/17 05:30 APTT 34.9 Seconds (25.6-37.1) 05/18/17 05:30 - Respiratory Exam Respiratory Exam: NORMAL BREATHING PATTERN - Cardiovascular Exam Cardiovascular Exam: REGULAR RHYTHM - GI/Abdominal Exam GI & Abdominal Exam: Normal Bowel Sounds Assessment and Plan - Assessment and Plan (Free Text) Assessment: MSA Parkinsons DX Shry Drager Low ext weakness?? Dx progression Fatigue -Meds?? reconsult neuro Disposition?? awaiting transfer to [place] Pt has medical decision making capacity but is financially vulnerable and benefits from legal guardianship Court and Social service involved Pt is [place] WWII COPD Bronchodilators Steroids Pulmonary S/P Bradycardia Hypotenson chronic A-fib Sepsis ? Autonomic dysfunction? Thrombocytopenia chronic DVT prophylaxis SCD (no Lovenox due to thrombocytopenia) R shoulder pain Dec ROM xrays subluxation Ultram PRN PT Recuurent c-diff Gastroentritis? resolved LGI bleed Thrombocytopenia Decubitus ulcer buttocks Increased frequency urinating UA CS PVR all wnl Otitis externa Ciprodex
[2017-07-21] MEDS: Levalbuterol 1.25 MG/3 ML Inhal Soln UD INH SCH ×2 (07:37→23:38)
[2017-07-21] MEDS: Carbidopa/Levodopa 50/200 CR PO SCH ×3 (08:31→16:35)
[2017-07-21] MEDS: Bethanechol 50 MG TAB PO SCH ×3 (08:32→16:35)
--- NOTE | 2017-07-21 20:30 | CP.PCM.PN ---
Subjective - Date & Time of Evaluation Date of Evaluation: 07/21/17 Time of Evaluation: 22:22 - Subjective Subjective: Above noted Objective - Vital Signs/Intake and Output Vital Signs (last 24 hours): Temp Pulse Resp BP Pulse Ox 97.8 F 69 20 98/60 L 98 07/21/17 15:47 07/21/17 15:47 07/21/17 15:47 07/21/17 15:47 07/21/17 15:47 - Medications Medications: Current Medications Acetaminophen (Tylenol 325mg Tab) 650 mg PO Q6 PRN PRN Reason: Pain, moderate (4-7) Last Admin: 07/17/17 17:19 Dose: 650 mg Amantadine HCl (Amantadine 100 Mg Cap) 100 mg PO BID [facility] Last Admin: 07/21/17 16:35 Dose: 100 mg Bethanechol Chloride (Urecholine) 50 mg PO TID [facility] Last Admin: 07/21/17 16:35 Dose: 50 mg Carbidopa/Levodopa (Sinemet Cr) 1 tab PO TID [facility] Last Admin: 07/21/17 16:35 Dose: 1 tab Docusate Sodium (Colace) 100 mg PO BID [facility] Last Admin: 07/21/17 16:35 Dose: 100 mg Famotidine (Pepcid) 40 mg PO HS [facility] Last Admin: 07/20/17 21:15 Dose: 40 mg Fluocinonide (Lidex 0.05% Oint) 1 applic TOP BID PRN PRN Reason: Rash Levalbuterol HCl (Xopenex) 1.25 mg INH RQ8 [facility] Last Admin: 07/21/17 07:37 Dose: Not Given Nystatin (Nystop Topical Powder) 1 applic TOP TID [facility] Last Admin: 07/21/17 16:34 Dose: 1 applic - Labs Labs: 06/19/17 08:35 06/19/17 08:35 PT 12.6 Seconds (9.8-13.1) 05/18/17 05:30 INR 1.1 (0.9-1.2) 05/18/17 05:30 APTT 34.9 Seconds (25.6-37.1) 05/18/17 05:30 - Respiratory Exam Respiratory Exam: NORMAL BREATHING PATTERN - Cardiovascular Exam Cardiovascular Exam: Tachycardia - GI/Abdominal Exam GI & Abdominal Exam: Normal Bowel Sounds Assessment and Plan - Assessment and Plan (Free Text) Assessment: MSA Parkinsons DX Shry Drager Low ext weakness?? Dx progression Fatigue -Meds?? reconsult neuro Disposition?? awaiting transfer to [place] Pt has medical decision making capacity but is financially vulnerable and benefits from legal guardianship Court and Social service involved Pt is [place] WWII COPD Bronchodilators Steroids Pulmonary S/P Bradycardia Hypotenson chronic A-fib Sepsis ? Autonomic dysfunction? Thrombocytopenia chronic DVT prophylaxis SCD (no Lovenox due to thrombocytopenia) R shoulder pain Dec ROM xrays subluxation Ultram PRN PT Recuurent c-diff Gastroentritis? resolved LGI bleed Thrombocytopenia Decubitus ulcer buttocks Increased frequency urinating UA CS PVR all wnl Otitis externa Ciprodex
[2017-07-22] MEDS: Levalbuterol 1.25 MG/3 ML Inhal Soln UD INH SCH ×3 (07:57→23:44)
[2017-07-22] MEDS: Carbidopa/Levodopa 50/200 CR PO SCH ×3 (09:14→17:19)
[2017-07-22] MEDS: Bethanechol 50 MG TAB PO SCH ×3 (09:14→17:19)
--- NOTE | 2017-07-22 20:58 | CP.PCM.PN ---
Subjective - Date & Time of Evaluation Date of Evaluation: 07/22/17 Time of Evaluation: 22:22 - Subjective Subjective: Above noted Objective - Vital Signs/Intake and Output Vital Signs (last 24 hours): Temp Pulse Resp BP Pulse Ox 97.7 F 70 20 105/58 L 98 07/22/17 15:56 07/22/17 15:56 07/22/17 15:56 07/22/17 15:56 07/22/17 15:56 - Medications Medications: Current Medications Acetaminophen (Tylenol 325mg Tab) 650 mg PO Q6 PRN PRN Reason: Pain, moderate (4-7) Last Admin: 07/17/17 17:19 Dose: 650 mg Amantadine HCl (Amantadine 100 Mg Cap) 100 mg PO BID [facility] Last Admin: 07/22/17 17:19 Dose: 100 mg Bethanechol Chloride (Urecholine) 50 mg PO TID [facility] Last Admin: 07/22/17 17:19 Dose: 50 mg Carbidopa/Levodopa (Sinemet Cr) 1 tab PO TID [facility] Last Admin: 07/22/17 17:19 Dose: 1 tab Docusate Sodium (Colace) 100 mg PO BID [facility] Last Admin: 07/22/17 17:19 Dose: 100 mg Famotidine (Pepcid) 40 mg PO HS [facility] Last Admin: 07/21/17 21:43 Dose: 40 mg Fluocinonide (Lidex 0.05% Oint) 1 applic TOP BID PRN PRN Reason: Rash Levalbuterol HCl (Xopenex) 1.25 mg INH RQ8 [facility] Last Admin: 07/22/17 15:31 Dose: 1.25 mg Nystatin (Nystop Topical Powder) 1 applic TOP TID [facility] Last Admin: 07/22/17 17:19 Dose: 1 applic - Labs Labs: 06/19/17 08:35 06/19/17 08:35 PT 12.6 Seconds (9.8-13.1) 05/18/17 05:30 INR 1.1 (0.9-1.2) 05/18/17 05:30 APTT 34.9 Seconds (25.6-37.1) 05/18/17 05:30 - Respiratory Exam Respiratory Exam: NORMAL BREATHING PATTERN - Cardiovascular Exam Cardiovascular Exam: REGULAR RHYTHM - GI/Abdominal Exam GI & Abdominal Exam: Normal Bowel Sounds Assessment and Plan - Assessment and Plan (Free Text) Assessment: MSA Parkinsons DX Shry Drager Low ext weakness?? Dx progression Fatigue -Meds?? reconsult neuro Disposition?? awaiting transfer to [place] Pt has medical decision making capacity but is financially vulnerable and benefits from legal guardianship Court and Social service involved Pt is [place] WWII COPD Bronchodilators Steroids Pulmonary S/P Bradycardia Hypotenson chronic A-fib Sepsis ? Autonomic dysfunction? Thrombocytopenia chronic DVT prophylaxis SCD (no Lovenox due to thrombocytopenia) R shoulder pain Dec ROM xrays subluxation Ultram PRN PT Recuurent c-diff Gastroentritis? resolved LGI bleed Thrombocytopenia Decubitus ulcer buttocks Increased frequency urinating UA CS PVR all wnl Otitis externa Ciprodex
[2017-07-23] MEDS: Levalbuterol 1.25 MG/3 ML Inhal Soln UD INH SCH ×3 (07:22→23:32)
[2017-07-23] MEDS: Bethanechol 50 MG TAB PO SCH ×3 (09:17→16:58)
[2017-07-23] MEDS: Carbidopa/Levodopa 50/200 CR PO SCH ×3 (09:18→16:58)
--- NOTE | 2017-07-23 18:38 | CP.PCM.PN ---
Subjective - Date & Time of Evaluation Date of Evaluation: 07/23/17 Time of Evaluation: 22:22 - Subjective Subjective: Above noted Objective - Vital Signs/Intake and Output Vital Signs (last 24 hours): Temp Pulse Resp BP Pulse Ox 98.1 F 64 18 100/63 98 07/23/17 16:06 07/23/17 16:06 07/23/17 16:06 07/23/17 16:06 07/23/17 16:06 - Medications Medications: Current Medications Acetaminophen (Tylenol 325mg Tab) 650 mg PO Q6 PRN PRN Reason: Pain, moderate (4-7) Last Admin: 07/17/17 17:19 Dose: 650 mg Amantadine HCl (Amantadine 100 Mg Cap) 100 mg PO BID [facility] Last Admin: 07/23/17 16:57 Dose: 100 mg Bethanechol Chloride (Urecholine) 50 mg PO TID [facility] Last Admin: 07/23/17 16:58 Dose: 50 mg Carbidopa/Levodopa (Sinemet Cr) 1 tab PO TID [facility] Last Admin: 07/23/17 16:58 Dose: 1 tab Docusate Sodium (Colace) 100 mg PO BID [facility] Last Admin: 07/23/17 16:57 Dose: 100 mg Famotidine (Pepcid) 40 mg PO HS [facility] Last Admin: 07/22/17 21:01 Dose: 40 mg Fluocinonide (Lidex 0.05% Oint) 1 applic TOP BID PRN PRN Reason: Rash Levalbuterol HCl (Xopenex) 1.25 mg INH RQ8 [facility] Last Admin: 07/23/17 15:37 Dose: 1.25 mg Nystatin (Nystop Topical Powder) 1 applic TOP TID [facility] Last Admin: 07/23/17 16:58 Dose: 1 applic - Labs Labs: 06/19/17 08:35 06/19/17 08:35 PT 12.6 Seconds (9.8-13.1) 05/18/17 05:30 INR 1.1 (0.9-1.2) 05/18/17 05:30 APTT 34.9 Seconds (25.6-37.1) 05/18/17 05:30 - Respiratory Exam Respiratory Exam: NORMAL BREATHING PATTERN - Cardiovascular Exam Cardiovascular Exam: REGULAR RHYTHM - GI/Abdominal Exam GI & Abdominal Exam: Normal Bowel Sounds Assessment and Plan - Assessment and Plan (Free Text) Assessment: MSA Parkinsons DX Shry Drager Low ext weakness?? Dx progression Fatigue -Meds?? reconsult neuro Disposition?? awaiting transfer to [place] Pt has medical decision making capacity but is financially vulnerable and benefits from legal guardianship Court and Social service involved Pt is [place] WWII COPD Bronchodilators Steroids Pulmonary S/P Bradycardia Hypotenson chronic A-fib Sepsis ? Autonomic dysfunction? Thrombocytopenia chronic DVT prophylaxis SCD (no Lovenox due to thrombocytopenia) R shoulder pain Dec ROM xrays subluxation Ultram PRN PT Recuurent c-diff Gastroentritis? resolved LGI bleed Thrombocytopenia Decubitus ulcer buttocks Increased frequency urinating UA CS PVR all wnl Otitis externa Ciprodex
[2017-07-24] MEDS: Levalbuterol 1.25 MG/3 ML Inhal Soln UD INH SCH ×3 (08:06→23:47)
[2017-07-24] MEDS: Carbidopa/Levodopa 50/200 CR PO SCH ×3 (08:28→16:17)
[2017-07-24] MEDS: Bethanechol 50 MG TAB PO SCH ×3 (08:28→16:17)
--- NOTE | 2017-07-24 21:03 | CP.PCM.PN ---
Subjective - Date & Time of Evaluation Date of Evaluation: 07/24/17 Time of Evaluation: 22:22 - Subjective Subjective: Above noted Objective - Vital Signs/Intake and Output Vital Signs (last 24 hours): Temp Pulse Resp BP Pulse Ox 97.9 F 75 20 120/72 99 07/24/17 16:09 07/24/17 16:09 07/24/17 16:09 07/24/17 16:09 07/24/17 16:09 - Medications Medications: Current Medications Acetaminophen (Tylenol 325mg Tab) 650 mg PO Q6 PRN PRN Reason: Pain, moderate (4-7) Last Admin: 07/17/17 17:19 Dose: 650 mg Amantadine HCl (Amantadine 100 Mg Cap) 100 mg PO BID [facility] Last Admin: 07/24/17 16:16 Dose: 100 mg Bethanechol Chloride (Urecholine) 50 mg PO TID [facility] Last Admin: 07/24/17 16:17 Dose: 50 mg Carbidopa/Levodopa (Sinemet Cr) 1 tab PO TID [facility] Last Admin: 07/24/17 16:17 Dose: 1 tab Docusate Sodium (Colace) 100 mg PO BID [facility] Last Admin: 07/24/17 16:16 Dose: 100 mg Famotidine (Pepcid) 40 mg PO HS [facility] Last Admin: 07/23/17 21:50 Dose: 40 mg Fluocinonide (Lidex 0.05% Oint) 1 applic TOP BID PRN PRN Reason: Rash Levalbuterol HCl (Xopenex) 1.25 mg INH RQ8 [facility] Last Admin: 07/24/17 16:35 Dose: Not Given Nystatin (Nystop Topical Powder) 1 applic TOP TID [facility] Last Admin: 07/24/17 16:15 Dose: 1 applic - Labs Labs: 06/19/17 08:35 06/19/17 08:35 PT 12.6 Seconds (9.8-13.1) 05/18/17 05:30 INR 1.1 (0.9-1.2) 05/18/17 05:30 APTT 34.9 Seconds (25.6-37.1) 05/18/17 05:30 - Respiratory Exam Respiratory Exam: NORMAL BREATHING PATTERN - Cardiovascular Exam Cardiovascular Exam: REGULAR RHYTHM - GI/Abdominal Exam GI & Abdominal Exam: Normal Bowel Sounds Assessment and Plan - Assessment and Plan (Free Text) Assessment: MSA Parkinsons DX Shry Drager Low ext weakness?? Dx progression Fatigue -Meds?? reconsult neuro Disposition?? [place] Pt has medical decision making capacity but is financially vulnerable and benefits from legal guardianship Court and Social service involved Pt is [place] WW[place] COPD Bronchodilators Steroids Pulmonary S/P Bradycardia Hypotenson chronic A-fib Sepsis ? Autonomic dysfunction? Thrombocytopenia chronic DVT prophylaxis SCD (no Lovenox due to thrombocytopenia) R shoulder pain Dec ROM xrays subluxation Ultram PRN PT Recuurent c-diff Gastroentritis? resolved LGI bleed Thrombocytopenia Decubitus ulcer buttocks Increased frequency urinating UA CS PVR all wnl Otitis externa Ciprodex
[2017-07-25] MEDS: Levalbuterol 1.25 MG/3 ML Inhal Soln UD INH SCH ×2 (08:03→23:59)
[2017-07-25] MEDS: Carbidopa/Levodopa 50/200 CR PO SCH ×3 (08:31→17:05)
[2017-07-25] MEDS: Bethanechol 50 MG TAB PO SCH ×3 (08:32→17:06)
--- NOTE | 2017-07-25 19:13 | CP.PCM.PN ---
Subjective - Date & Time of Evaluation Date of Evaluation: 07/25/17 Time of Evaluation: 22:22 - Subjective Subjective: Doing well Objective - Vital Signs/Intake and Output Vital Signs (last 24 hours): Temp Pulse Resp BP Pulse Ox 97.5 F L 55 L 20 103/61 99 07/25/17 16:21 07/25/17 16:21 07/25/17 16:21 07/25/17 16:21 07/25/17 16:21 - Medications Medications: Current Medications Acetaminophen (Tylenol 325mg Tab) 650 mg PO Q6 PRN PRN Reason: Pain, moderate (4-7) Last Admin: 07/17/17 17:19 Dose: 650 mg Amantadine HCl (Amantadine 100 Mg Cap) 100 mg PO BID [facility] Last Admin: 07/25/17 17:05 Dose: 100 mg Bethanechol Chloride (Urecholine) 50 mg PO TID [facility] Last Admin: 07/25/17 17:06 Dose: 50 mg Carbidopa/Levodopa (Sinemet Cr) 1 tab PO TID [facility] Last Admin: 07/25/17 17:05 Dose: 1 tab Docusate Sodium (Colace) 100 mg PO BID [facility] Last Admin: 07/25/17 17:05 Dose: 100 mg Famotidine (Pepcid) 40 mg PO HS [facility] Last Admin: 07/24/17 21:24 Dose: 40 mg Fluocinonide (Lidex 0.05% Oint) 1 applic TOP BID PRN PRN Reason: Rash Levalbuterol HCl (Xopenex) 1.25 mg INH RQ8 [facility] Last Admin: 07/25/17 08:03 Dose: 1.25 mg Nystatin (Nystop Topical Powder) 1 applic TOP TID [facility] Last Admin: 07/25/17 17:04 Dose: 1 applic - Labs Labs: 06/19/17 08:35 06/19/17 08:35 PT 12.6 Seconds (9.8-13.1) 05/18/17 05:30 INR 1.1 (0.9-1.2) 05/18/17 05:30 APTT 34.9 Seconds (25.6-37.1) 05/18/17 05:30 - Respiratory Exam Respiratory Exam: NORMAL BREATHING PATTERN - Cardiovascular Exam Cardiovascular Exam: REGULAR RHYTHM - GI/Abdominal Exam GI & Abdominal Exam: Normal Bowel Sounds Assessment and Plan - Assessment and Plan (Free Text) Assessment: MSA Parkinsons DX Shry Drager Low ext weakness?? Dx progression Fatigue -Meds?? reconsult neuro Disposition?? [place] Pt has medical decision making capacity but is financially vulnerable and benefits from legal guardianship Court and Social service involved Pt is [place] COPD Bronchodilators Steroids Pulmonary S/P Bradycardia Hypotenson chronic A-fib Sepsis ? Autonomic dysfunction? Thrombocytopenia chronic DVT prophylaxis SCD (no Lovenox due to thrombocytopenia) R shoulder pain Dec ROM xrays subluxation Ultram PRN PT Recuurent c-diff Gastroentritis? resolved LGI bleed Thrombocytopenia Decubitus ulcer buttocks Increased frequency urinating UA CS PVR all wnl Otitis externa Ciprodex
[2017-07-26] MEDS: Levalbuterol 1.25 MG/3 ML Inhal Soln UD INH SCH ×2 (07:44→16:02)
[2017-07-26] MEDS: Bethanechol 50 MG TAB PO SCH ×3 (08:40→17:39)
[2017-07-26] MEDS: Carbidopa/Levodopa 50/200 CR PO SCH ×3 (08:40→17:39)
[2017-07-27] MEDS: Levalbuterol 1.25 MG/3 ML Inhal Soln UD INH SCH ×4 (00:19→23:37)
[2017-07-27] MEDS: Carbidopa/Levodopa 50/200 CR PO SCH ×3 (08:18→17:24)
[2017-07-27] MEDS: Bethanechol 50 MG TAB PO SCH ×3 (08:18→17:25)
--- NOTE | 2017-07-27 18:30 | CP.PCM.PN ---
Subjective - Date & Time of Evaluation Date of Evaluation: 07/27/17 Time of Evaluation: 22:22 - Subjective Subjective: Above noted Objective - Vital Signs/Intake and Output Vital Signs (last 24 hours): Temp Pulse Resp BP Pulse Ox 97.7 F 65 20 104/67 99 07/27/17 16:16 07/27/17 16:16 07/27/17 16:16 07/27/17 16:16 07/27/17 16:16 - Medications Medications: Current Medications Acetaminophen (Tylenol 325mg Tab) 650 mg PO Q6 PRN PRN Reason: Pain, moderate (4-7) Last Admin: 07/17/17 17:19 Dose: 650 mg Amantadine HCl (Amantadine 100 Mg Cap) 100 mg PO BID [facility] Last Admin: 07/27/17 17:24 Dose: 100 mg Bethanechol Chloride (Urecholine) 50 mg PO TID [facility] Last Admin: 07/27/17 17:25 Dose: 50 mg Carbidopa/Levodopa (Sinemet Cr) 1 tab PO TID [facility] Last Admin: 07/27/17 17:24 Dose: 1 tab Docusate Sodium (Colace) 100 mg PO BID [facility] Last Admin: 07/27/17 17:24 Dose: 100 mg Famotidine (Pepcid) 40 mg PO HS [facility] Last Admin: 07/26/17 22:07 Dose: 40 mg Fluocinonide (Lidex 0.05% Oint) 1 applic TOP BID PRN PRN Reason: Rash Levalbuterol HCl (Xopenex) 1.25 mg INH RQ8 [facility] Last Admin: 07/27/17 07:25 Dose: Not Given Nystatin (Nystop Topical Powder) 1 applic TOP TID [facility] Last Admin: 07/27/17 17:24 Dose: 1 applic - Labs Labs: 06/19/17 08:35 06/19/17 08:35 PT 12.6 Seconds (9.8-13.1) 05/18/17 05:30 INR 1.1 (0.9-1.2) 05/18/17 05:30 APTT 34.9 Seconds (25.6-37.1) 05/18/17 05:30 - Respiratory Exam Respiratory Exam: NORMAL BREATHING PATTERN - Cardiovascular Exam Cardiovascular Exam: REGULAR RHYTHM - GI/Abdominal Exam GI & Abdominal Exam: Normal Bowel Sounds Assessment and Plan - Assessment and Plan (Free Text) Assessment: MSA Parkinsons DX Shry Drager Low ext weakness?? Dx progression Fatigue -Meds?? reconsult neuro Disposition?? awaiting transfer to [place] Pt has medical decision making capacity but is financially vulnerable and benefits from legal guardianship Court and Social service involved Pt is [place] WW[employer] COPD Bronchodilators Steroids Pulmonary S/P Bradycardia Hypotenson chronic A-fib Sepsis ? Autonomic dysfunction? Thrombocytopenia chronic DVT prophylaxis SCD (no Lovenox due to thrombocytopenia) R shoulder pain Dec ROM xrays subluxation Ultram PRN PT Recuurent c-diff Gastroentritis? resolved LGI bleed Thrombocytopenia Decubitus ulcer buttocks Increased frequency urinating UA CS PVR all wnl Otitis externa Ciprodex
[2017-07-28] MEDS: Levalbuterol 1.25 MG/3 ML Inhal Soln UD INH SCH ×2 (07:39→15:42)
[2017-07-28] MEDS: Carbidopa/Levodopa 50/200 CR PO SCH ×3 (08:20→16:47)
[2017-07-28] MEDS: Bethanechol 50 MG TAB PO SCH ×3 (08:21→16:47)
--- NOTE | 2017-07-28 20:54 | CP.PCM.PN ---
Subjective - Date & Time of Evaluation Date of Evaluation: 07/28/17 Time of Evaluation: 22:22 - Subjective Subjective: Above noted Objective - Vital Signs/Intake and Output Vital Signs (last 24 hours): Temp Pulse Resp BP Pulse Ox 97.6 F 71 20 118/66 99 07/28/17 16:09 07/28/17 16:09 07/28/17 16:09 07/28/17 16:09 07/28/17 16:09 - Medications Medications: Current Medications Acetaminophen (Tylenol 325mg Tab) 650 mg PO Q6 PRN PRN Reason: Pain, moderate (4-7) Last Admin: 07/17/17 17:19 Dose: 650 mg Amantadine HCl (Amantadine 100 Mg Cap) 100 mg PO BID [facility] Last Admin: 07/28/17 16:47 Dose: 100 mg Bethanechol Chloride (Urecholine) 50 mg PO TID [facility] Last Admin: 07/28/17 16:47 Dose: 50 mg Carbidopa/Levodopa (Sinemet Cr) 1 tab PO TID [facility] Last Admin: 07/28/17 16:47 Dose: 1 tab Docusate Sodium (Colace) 100 mg PO BID [facility] Last Admin: 07/28/17 16:47 Dose: 100 mg Famotidine (Pepcid) 40 mg PO HS [facility] Last Admin: 07/27/17 21:11 Dose: 40 mg Fluocinonide (Lidex 0.05% Oint) 1 applic TOP BID PRN PRN Reason: Rash Last Admin: 07/28/17 16:48 Dose: 1 applic Levalbuterol HCl (Xopenex) 1.25 mg INH RQ8 [facility] Last Admin: 07/28/17 15:42 Dose: Not Given Nystatin (Nystop Topical Powder) 1 applic TOP TID [facility] Last Admin: 07/28/17 16:46 Dose: 1 applic - Labs Labs: 06/19/17 08:35 06/19/17 08:35 PT 12.6 Seconds (9.8-13.1) 05/18/17 05:30 INR 1.1 (0.9-1.2) 05/18/17 05:30 APTT 34.9 Seconds (25.6-37.1) 05/18/17 05:30 - Respiratory Exam Respiratory Exam: NORMAL BREATHING PATTERN - Cardiovascular Exam Cardiovascular Exam: REGULAR RHYTHM - GI/Abdominal Exam GI & Abdominal Exam: Normal Bowel Sounds Assessment and Plan - Assessment and Plan (Free Text) Assessment: MSA Parkinsons DX Shry Drager Low ext weakness?? Dx progression Fatigue -Meds?? reconsult neuro Disposition?? awaiting transfer to [place] Pt has medical decision making capacity but is financially vulnerable and benefits from legal guardianship Court and Social service involved Pt is [place] WW[employer] COPD Bronchodilators Steroids Pulmonary S/P Bradycardia Hypotenson chronic A-fib Sepsis ? Autonomic dysfunction? Thrombocytopenia chronic DVT prophylaxis SCD (no Lovenox due to thrombocytopenia) R shoulder pain Dec ROM xrays subluxation Ultram PRN PT Recuurent c-diff Gastroentritis? resolved LGI bleed Thrombocytopenia Decubitus ulcer buttocks Increased frequency urinating UA CS PVR all wnl Otitis externa Ciprodex
[2017-07-29] MEDS: Levalbuterol 1.25 MG/3 ML Inhal Soln UD INH SCH ×3 (00:18→16:15)
[2017-07-29] MEDS: Bethanechol 50 MG TAB PO SCH ×3 (08:41→16:17)
[2017-07-29] MEDS: Carbidopa/Levodopa 50/200 CR PO SCH ×3 (08:41→16:17)
--- NOTE | 2017-07-29 20:46 | CP.PCM.PN ---
Subjective - Date & Time of Evaluation Date of Evaluation: 07/29/17 Time of Evaluation: 22:22 - Subjective Subjective: Above noted Objective - Vital Signs/Intake and Output Vital Signs (last 24 hours): Temp Pulse Resp BP Pulse Ox 97.3 F L 60 20 132/72 100 07/29/17 16:18 07/29/17 16:18 07/29/17 16:18 07/29/17 16:18 07/29/17 16:18 - Medications Medications: Current Medications Acetaminophen (Tylenol 325mg Tab) 650 mg PO Q6 PRN PRN Reason: Pain, moderate (4-7) Last Admin: 07/17/17 17:19 Dose: 650 mg Amantadine HCl (Amantadine 100 Mg Cap) 100 mg PO BID [facility] Last Admin: 07/29/17 16:17 Dose: 100 mg Bethanechol Chloride (Urecholine) 50 mg PO TID [facility] Last Admin: 07/29/17 16:17 Dose: 50 mg Carbidopa/Levodopa (Sinemet Cr) 1 tab PO TID [facility] Last Admin: 07/29/17 16:17 Dose: 1 tab Docusate Sodium (Colace) 100 mg PO BID [facility] Last Admin: 07/29/17 16:17 Dose: 100 mg Famotidine (Pepcid) 40 mg PO HS [facility] Last Admin: 07/28/17 21:30 Dose: 40 mg Fluocinonide (Lidex 0.05% Oint) 1 applic TOP BID PRN PRN Reason: Rash Last Admin: 07/28/17 16:48 Dose: 1 applic Levalbuterol HCl (Xopenex) 1.25 mg INH RQ8 [facility] Last Admin: 07/29/17 16:15 Dose: Not Given Nystatin (Nystop Topical Powder) 1 applic TOP TID [facility] Last Admin: 07/29/17 16:17 Dose: 1 applic - Labs Labs: 06/19/17 08:35 06/19/17 08:35 PT 12.6 Seconds (9.8-13.1) 05/18/17 05:30 INR 1.1 (0.9-1.2) 05/18/17 05:30 APTT 34.9 Seconds (25.6-37.1) 05/18/17 05:30 - Respiratory Exam Respiratory Exam: NORMAL BREATHING PATTERN - Cardiovascular Exam Cardiovascular Exam: REGULAR RHYTHM - GI/Abdominal Exam GI & Abdominal Exam: Normal Bowel Sounds Assessment and Plan - Assessment and Plan (Free Text) Assessment: MSA Parkinsons DX Shry Drager Low ext weakness?? Dx progression Fatigue -Meds?? reconsult neuro Disposition?? awaiting transfer to [place] Pt has medical decision making capacity but is financially vulnerable and benefits from legal guardianship Court and Social service involved Pt is [place] WWII COPD Bronchodilators Steroids Pulmonary S/P Bradycardia Hypotenson chronic A-fib Sepsis ? Autonomic dysfunction? Thrombocytopenia chronic DVT prophylaxis SCD (no Lovenox due to thrombocytopenia) R shoulder pain Dec ROM xrays subluxation Ultram PRN PT Recuurent c-diff Gastroentritis? resolved LGI bleed Thrombocytopenia Decubitus ulcer buttocks Increased frequency urinating UA CS PVR all wnl Otitis externa Ciprodex
[2017-07-30] MEDS: Levalbuterol 1.25 MG/3 ML Inhal Soln UD INH SCH ×4 (00:19→23:36)
[2017-07-30] MEDS: Carbidopa/Levodopa 50/200 CR PO SCH ×3 (08:23→16:50)
[2017-07-30] MEDS: Bethanechol 50 MG TAB PO SCH ×3 (08:23→16:50)
--- NOTE | 2017-07-30 18:17 | CP.PCM.PN ---
Subjective - Date & Time of Evaluation Date of Evaluation: 07/30/17 Time of Evaluation: 22:22 - Subjective Subjective: Above noted Objective - Vital Signs/Intake and Output Vital Signs (last 24 hours): Temp Pulse Resp BP Pulse Ox 97.6 F 75 20 133/50 L 97 07/30/17 16:49 07/30/17 16:49 07/30/17 16:49 07/30/17 16:49 07/30/17 16:49 - Medications Medications: Current Medications Acetaminophen (Tylenol 325mg Tab) 650 mg PO Q6 PRN PRN Reason: Pain, moderate (4-7) Last Admin: 07/17/17 17:19 Dose: 650 mg Amantadine HCl (Amantadine 100 Mg Cap) 100 mg PO BID [facility] Last Admin: 07/30/17 16:50 Dose: 100 mg Bethanechol Chloride (Urecholine) 50 mg PO TID [facility] Last Admin: 07/30/17 16:50 Dose: 50 mg Carbidopa/Levodopa (Sinemet Cr) 1 tab PO TID [facility] Last Admin: 07/30/17 16:50 Dose: 1 tab Docusate Sodium (Colace) 100 mg PO BID [facility] Last Admin: 07/30/17 16:50 Dose: 100 mg Famotidine (Pepcid) 40 mg PO HS [facility] Last Admin: 07/29/17 21:26 Dose: 40 mg Fluocinonide (Lidex 0.05% Oint) 1 applic TOP BID PRN PRN Reason: Rash Last Admin: 07/28/17 16:48 Dose: 1 applic Levalbuterol HCl (Xopenex) 1.25 mg INH RQ8 [facility] Last Admin: 07/30/17 08:18 Dose: Not Given Nystatin (Nystop Topical Powder) 1 applic TOP TID [facility] Last Admin: 07/30/17 16:50 Dose: 1 applic - Labs Labs: 06/19/17 08:35 06/19/17 08:35 PT 12.6 Seconds (9.8-13.1) 05/18/17 05:30 INR 1.1 (0.9-1.2) 05/18/17 05:30 APTT 34.9 Seconds (25.6-37.1) 05/18/17 05:30 - Respiratory Exam Respiratory Exam: NORMAL BREATHING PATTERN - Cardiovascular Exam Cardiovascular Exam: REGULAR RHYTHM - GI/Abdominal Exam GI & Abdominal Exam: Normal Bowel Sounds Assessment and Plan - Assessment and Plan (Free Text) Assessment: MSA Parkinsons DX Shry Drager Low ext weakness?? Dx progression Fatigue -Meds?? reconsult neuro Disposition?? awaiting transfer to [place] Pt has medical decision making capacity but is financially vulnerable and benefits from legal guardianship Court and Social service involved Pt is [place] COPD Bronchodilators Steroids Pulmonary S/P Bradycardia Hypotenson chronic A-fib Sepsis ? Autonomic dysfunction? Thrombocytopenia chronic DVT prophylaxis SCD (no Lovenox due to thrombocytopenia) R shoulder pain Dec ROM xrays subluxation Ultram PRN PT Recuurent c-diff Gastroentritis? resolved LGI bleed Thrombocytopenia Decubitus ulcer buttocks Increased frequency urinating UA CS PVR all wnl Otitis externa Ciprodex
[2017-07-31] MEDS: Levalbuterol 1.25 MG/3 ML Inhal Soln UD INH SCH ×3 (08:20→23:31)
[2017-07-31] MEDS: Bethanechol 50 MG TAB PO SCH ×3 (09:21→16:51)
[2017-07-31] MEDS: Carbidopa/Levodopa 50/200 CR PO SCH ×3 (09:21→16:51)
--- NOTE | 2017-07-31 20:47 | CP.PCM.PN ---
Subjective - Date & Time of Evaluation Date of Evaluation: 07/31/17 Time of Evaluation: 22:22 - Subjective Subjective: Above noted Objective - Vital Signs/Intake and Output Vital Signs (last 24 hours): Temp Pulse Resp BP Pulse Ox 97.6 F 76 20 134/68 98 07/31/17 16:01 07/31/17 16:01 07/31/17 16:01 07/31/17 16:01 07/31/17 16:01 - Medications Medications: Current Medications Acetaminophen (Tylenol 325mg Tab) 650 mg PO Q6 PRN PRN Reason: Pain, moderate (4-7) Last Admin: 07/17/17 17:19 Dose: 650 mg Amantadine HCl (Amantadine 100 Mg Cap) 100 mg PO BID [facility] Last Admin: 07/31/17 16:51 Dose: 100 mg Bethanechol Chloride (Urecholine) 50 mg PO TID [facility] Last Admin: 07/31/17 16:51 Dose: 50 mg Carbidopa/Levodopa (Sinemet Cr) 1 tab PO TID [facility] Last Admin: 07/31/17 16:51 Dose: 1 tab Docusate Sodium (Colace) 100 mg PO BID [facility] Last Admin: 07/31/17 16:51 Dose: 100 mg Famotidine (Pepcid) 40 mg PO HS [facility] Last Admin: 07/30/17 21:23 Dose: 40 mg Fluocinonide (Lidex 0.05% Oint) 1 applic TOP BID PRN PRN Reason: Rash Last Admin: 07/31/17 16:52 Dose: 1 applic Levalbuterol HCl (Xopenex) 1.25 mg INH RQ8 [facility] Last Admin: 07/31/17 16:08 Dose: Not Given Nystatin (Nystop Topical Powder) 1 applic TOP TID [facility] Last Admin: 07/31/17 16:51 Dose: 1 applic - Labs Labs: 06/19/17 08:35 06/19/17 08:35 PT 12.6 Seconds (9.8-13.1) 05/18/17 05:30 INR 1.1 (0.9-1.2) 05/18/17 05:30 APTT 34.9 Seconds (25.6-37.1) 05/18/17 05:30 - Respiratory Exam Respiratory Exam: NORMAL BREATHING PATTERN - Cardiovascular Exam Cardiovascular Exam: REGULAR RHYTHM - GI/Abdominal Exam GI & Abdominal Exam: Normal Bowel Sounds Assessment and Plan - Assessment and Plan (Free Text) Assessment: MSA Parkinsons DX Shry Drager Low ext weakness?? Dx progression Fatigue -Meds?? reconsult neuro Disposition?? awaiting transfer to [place] Pt has medical decision making capacity but is financially vulnerable and benefits from legal guardianship Court and Social service involved Pt is [place] WW[place] COPD Bronchodilators Steroids Pulmonary S/P Bradycardia Hypotenson chronic A-fib Sepsis ? Autonomic dysfunction? Thrombocytopenia chronic DVT prophylaxis SCD (no Lovenox due to thrombocytopenia) R shoulder pain Dec ROM xrays subluxation Ultram PRN PT Recuurent c-diff Gastroentritis? resolved LGI bleed Thrombocytopenia Decubitus ulcer buttocks Increased frequency urinating UA CS PVR all wnl Otitis externa Ciprodex
[2017-08-01] MEDS: Levalbuterol 1.25 MG/3 ML Inhal Soln UD INH SCH ×3 (07:37→23:46)
[2017-08-01] MEDS: Carbidopa/Levodopa 50/200 CR PO SCH ×3 (09:10→17:19)
[2017-08-01] MEDS: Bethanechol 50 MG TAB PO SCH ×3 (09:11→17:19)
--- NOTE | 2017-08-01 14:56 | CP.PCM.PN ---
Subjective - Date & Time of Evaluation Date of Evaluation: 08/01/17 Time of Evaluation: 22:22 - Subjective Subjective: Above noted Objective - Vital Signs/Intake and Output Vital Signs (last 24 hours): Temp Pulse Resp BP Pulse Ox 97.1 F L 72 20 120/73 100 08/01/17 08:30 08/01/17 08:30 08/01/17 08:30 08/01/17 08:30 08/01/17 08:30 - Medications Medications: Current Medications Acetaminophen (Tylenol 325mg Tab) 650 mg PO Q6 PRN PRN Reason: Pain, moderate (4-7) Last Admin: 07/17/17 17:19 Dose: 650 mg Amantadine HCl (Amantadine 100 Mg Cap) 100 mg PO BID [facility] Last Admin: 08/01/17 09:10 Dose: 100 mg Bethanechol Chloride (Urecholine) 50 mg PO TID [facility] Last Admin: 08/01/17 12:48 Dose: 50 mg Carbidopa/Levodopa (Sinemet Cr) 1 tab PO TID [facility] Last Admin: 08/01/17 12:48 Dose: 1 tab Docusate Sodium (Colace) 100 mg PO BID [facility] Last Admin: 08/01/17 09:10 Dose: 100 mg Famotidine (Pepcid) 40 mg PO HS [facility] Last Admin: 07/31/17 21:48 Dose: 40 mg Fluocinonide (Lidex 0.05% Oint) 1 applic TOP BID PRN PRN Reason: Rash Last Admin: 08/01/17 09:11 Dose: 1 applic Levalbuterol HCl (Xopenex) 1.25 mg INH RQ8 [facility] Last Admin: 08/01/17 07:37 Dose: Not Given Nystatin (Nystop Topical Powder) 1 applic TOP TID [facility] Last Admin: 08/01/17 12:48 Dose: 1 applic - Labs Labs: 06/19/17 08:35 06/19/17 08:35 PT 12.6 Seconds (9.8-13.1) 05/18/17 05:30 INR 1.1 (0.9-1.2) 05/18/17 05:30 APTT 34.9 Seconds (25.6-37.1) 05/18/17 05:30 - Respiratory Exam Respiratory Exam: NORMAL BREATHING PATTERN - Cardiovascular Exam Cardiovascular Exam: REGULAR RHYTHM - GI/Abdominal Exam GI & Abdominal Exam: Normal Bowel Sounds Assessment and Plan - Assessment and Plan (Free Text) Assessment: MSA Parkinsons DX Shry Drager Low ext weakness?? Dx progression Fatigue -Meds?? reconsult neuro Disposition?? awaiting transfer to [place] Pt has medical decision making capacity but is financially vulnerable and benefits from legal guardianship Court and Social service involved Pt is [place] WWII COPD Bronchodilators Steroids Pulmonary S/P Bradycardia Hypotenson chronic A-fib Sepsis ? Autonomic dysfunction? Thrombocytopenia chronic DVT prophylaxis SCD (no Lovenox due to thrombocytopenia) R shoulder pain Dec ROM xrays subluxation Ultram PRN PT Recuurent c-diff Gastroentritis? resolved LGI bleed Thrombocytopenia Decubitus ulcer buttocks Increased frequency urinating UA CS PVR all wnl Otitis externa Ciprodex
[2017-08-02] MEDS: Levalbuterol 1.25 MG/3 ML Inhal Soln UD INH SCH ×3 (07:33→23:28)
[2017-08-02] MEDS: Carbidopa/Levodopa 50/200 CR PO SCH ×3 (09:08→16:15)
[2017-08-02] MEDS: Bethanechol 50 MG TAB PO SCH ×3 (09:08→16:15)
--- NOTE | 2017-08-02 23:05 | CP.PCM.PN ---
Subjective - Date & Time of Evaluation Date of Evaluation: 08/02/17 Time of Evaluation: 22:22 - Subjective Subjective: Above noted Objective - Vital Signs/Intake and Output Vital Signs (last 24 hours): Temp Pulse Resp BP Pulse Ox 97.2 F L 73 20 118/64 97 08/02/17 15:54 08/02/17 15:54 08/02/17 15:54 08/02/17 15:54 08/02/17 15:54 - Medications Medications: Current Medications Acetaminophen (Tylenol 325mg Tab) 650 mg PO Q6 PRN PRN Reason: Pain, moderate (4-7) Last Admin: 07/17/17 17:19 Dose: 650 mg Amantadine HCl (Amantadine 100 Mg Cap) 100 mg PO BID [facility] Last Admin: 08/02/17 16:15 Dose: 100 mg Bethanechol Chloride (Urecholine) 50 mg PO TID [facility] Last Admin: 08/02/17 16:15 Dose: 50 mg Carbidopa/Levodopa (Sinemet Cr) 1 tab PO TID [facility] Last Admin: 08/02/17 16:15 Dose: 1 tab Docusate Sodium (Colace) 100 mg PO BID [facility] Last Admin: 08/02/17 16:15 Dose: 100 mg Famotidine (Pepcid) 40 mg PO HS [facility] Last Admin: 08/02/17 21:44 Dose: 40 mg Fluocinonide (Lidex 0.05% Oint) 1 applic TOP BID PRN PRN Reason: Rash Last Admin: 08/01/17 09:11 Dose: 1 applic Levalbuterol HCl (Xopenex) 1.25 mg INH RQ8 [facility] Last Admin: 08/02/17 15:18 Dose: Not Given Nystatin (Nystop Topical Powder) 1 applic TOP TID [facility] Last Admin: 08/02/17 16:14 Dose: 1 applic - Labs Labs: 06/19/17 08:35 06/19/17 08:35 PT 12.6 Seconds (9.8-13.1) 05/18/17 05:30 INR 1.1 (0.9-1.2) 05/18/17 05:30 APTT 34.9 Seconds (25.6-37.1) 05/18/17 05:30 - Respiratory Exam Respiratory Exam: Wheezes, NORMAL BREATHING PATTERN - Cardiovascular Exam Cardiovascular Exam: REGULAR RHYTHM - GI/Abdominal Exam GI & Abdominal Exam: Normal Bowel Sounds Assessment and Plan - Assessment and Plan (Free Text) Assessment: MSA Parkinsons DX Shry Drager Low ext weakness?? Dx progression Fatigue -Meds?? reconsult neuro Disposition?? awaiting transfer to [place] Pt has medical decision making capacity but is financially vulnerable and benefits from legal guardianship Court and Social service involved Pt is [place] COPD Bronchodilators Steroids Pulmonary S/P Bradycardia Hypotenson chronic A-fib Sepsis ? Autonomic dysfunction? Thrombocytopenia chronic DVT prophylaxis SCD (no Lovenox due to thrombocytopenia) R shoulder pain Dec ROM xrays subluxation Ultram PRN PT Recuurent c-diff Gastroentritis? resolved LGI bleed Thrombocytopenia Decubitus ulcer buttocks Increased frequency urinating UA CS PVR all wnl Otitis externa Ciprodex
[2017-08-03] MEDS: Levalbuterol 1.25 MG/3 ML Inhal Soln UD INH SCH ×2 (08:01→15:48)
[2017-08-03] MEDS: Bethanechol 50 MG TAB PO SCH ×3 (09:34→16:08)
[2017-08-03] MEDS: Carbidopa/Levodopa 50/200 CR PO SCH ×3 (09:35→16:07)
--- NOTE | 2017-08-03 21:11 | CP.PCM.PN ---
Subjective - Date & Time of Evaluation Date of Evaluation: 08/03/17 Time of Evaluation: 22:22 - Subjective Subjective: Above noted Objective - Vital Signs/Intake and Output Vital Signs (last 24 hours): Temp Pulse Resp BP Pulse Ox 98.1 F 62 20 107/72 100 08/03/17 16:27 08/03/17 16:27 08/03/17 16:27 08/03/17 16:27 08/03/17 16:27 - Medications Medications: Current Medications Acetaminophen (Tylenol 325mg Tab) 650 mg PO Q6 PRN PRN Reason: Pain, moderate (4-7) Last Admin: 07/17/17 17:19 Dose: 650 mg Amantadine HCl (Amantadine 100 Mg Cap) 100 mg PO BID [facility] Last Admin: 08/03/17 16:07 Dose: 100 mg Bethanechol Chloride (Urecholine) 50 mg PO TID [facility] Last Admin: 08/03/17 16:08 Dose: 50 mg Carbidopa/Levodopa (Sinemet Cr) 1 tab PO TID [facility] Last Admin: 08/03/17 16:07 Dose: 1 tab Docusate Sodium (Colace) 100 mg PO BID [facility] Last Admin: 08/03/17 16:07 Dose: 100 mg Famotidine (Pepcid) 40 mg PO HS [facility] Last Admin: 08/02/17 21:44 Dose: 40 mg Fluocinonide (Lidex 0.05% Oint) 1 applic TOP BID PRN PRN Reason: Rash Last Admin: 08/03/17 09:35 Dose: 1 applic Levalbuterol HCl (Xopenex) 1.25 mg INH RQ8 [facility] Last Admin: 08/03/17 15:48 Dose: Not Given Nystatin (Nystop Topical Powder) 1 applic TOP TID [facility] Last Admin: 08/03/17 16:07 Dose: 1 applic - Labs Labs: 06/19/17 08:35 06/19/17 08:35 PT 12.6 Seconds (9.8-13.1) 05/18/17 05:30 INR 1.1 (0.9-1.2) 05/18/17 05:30 APTT 34.9 Seconds (25.6-37.1) 05/18/17 05:30 - Respiratory Exam Respiratory Exam: NORMAL BREATHING PATTERN - Cardiovascular Exam Cardiovascular Exam: REGULAR RHYTHM - GI/Abdominal Exam GI & Abdominal Exam: Normal Bowel Sounds Assessment and Plan - Assessment and Plan (Free Text) Assessment: MSA Parkinsons DX Shry Drager Low ext weakness?? Dx progression Fatigue -Meds?? reconsult neuro Disposition?? awaiting transfer to [place] Pt has medical decision making capacity but is financially vulnerable and benefits from legal guardianship Court and Social service involved Pt is [place] COPD Bronchodilators Steroids Pulmonary S/P Bradycardia Hypotenson chronic A-fib Sepsis ? Autonomic dysfunction? Thrombocytopenia chronic DVT prophylaxis SCD (no Lovenox due to thrombocytopenia) R shoulder pain Dec ROM xrays subluxation Ultram PRN PT Recuurent c-diff Gastroentritis? resolved LGI bleed Thrombocytopenia Decubitus ulcer buttocks Increased frequency urinating UA CS PVR all wnl Otitis externa Ciprodex
[2017-08-04] MEDS: Levalbuterol 1.25 MG/3 ML Inhal Soln UD INH SCH ×4 (00:23→23:55)
[2017-08-04] MEDS: Carbidopa/Levodopa 50/200 CR PO SCH ×3 (09:00→16:30)
[2017-08-04] MEDS: Bethanechol 50 MG TAB PO SCH ×3 (09:01→16:30)
--- NOTE | 2017-08-04 18:11 | CP.PCM.PN ---
Subjective - Date & Time of Evaluation Date of Evaluation: 08/04/17 Time of Evaluation: 22:22 - Subjective Subjective: Above noted Objective - Vital Signs/Intake and Output Vital Signs (last 24 hours): Temp Pulse Resp BP Pulse Ox 97.3 F L 77 20 126/66 98 08/04/17 16:04 08/04/17 16:04 08/04/17 16:04 08/04/17 16:04 08/04/17 16:04 - Medications Medications: Current Medications Acetaminophen (Tylenol 325mg Tab) 650 mg PO Q6 PRN PRN Reason: Pain, moderate (4-7) Last Admin: 07/17/17 17:19 Dose: 650 mg Amantadine HCl (Amantadine 100 Mg Cap) 100 mg PO BID [facility] Last Admin: 08/04/17 16:29 Dose: 100 mg Bethanechol Chloride (Urecholine) 50 mg PO TID [facility] Last Admin: 08/04/17 16:30 Dose: 50 mg Carbidopa/Levodopa (Sinemet Cr) 1 tab PO TID [facility] Last Admin: 08/04/17 16:30 Dose: 1 tab Docusate Sodium (Colace) 100 mg PO BID [facility] Last Admin: 08/04/17 16:29 Dose: 100 mg Famotidine (Pepcid) 40 mg PO HS [facility] Last Admin: 08/03/17 21:18 Dose: 40 mg Fluocinonide (Lidex 0.05% Oint) 1 applic TOP BID PRN PRN Reason: Rash Last Admin: 08/03/17 09:35 Dose: 1 applic Levalbuterol HCl (Xopenex) 1.25 mg INH RQ8 [facility] Last Admin: 08/04/17 15:27 Dose: Not Given Nystatin (Nystop Topical Powder) 1 applic TOP TID [facility] Last Admin: 08/04/17 16:29 Dose: 1 applic - Labs Labs: 06/19/17 08:35 06/19/17 08:35 PT 12.6 Seconds (9.8-13.1) 05/18/17 05:30 INR 1.1 (0.9-1.2) 05/18/17 05:30 APTT 34.9 Seconds (25.6-37.1) 05/18/17 05:30 - Respiratory Exam Respiratory Exam: NORMAL BREATHING PATTERN - Cardiovascular Exam Cardiovascular Exam: REGULAR RHYTHM - GI/Abdominal Exam GI & Abdominal Exam: Normal Bowel Sounds Assessment and Plan - Assessment and Plan (Free Text) Assessment: MSA Parkinsons DX Shry Drager Low ext weakness?? Dx progression Fatigue -Meds?? reconsult neuro Disposition?? awaiting transfer to [place] Pt has medical decision making capacity but is financially vulnerable and benefits from legal guardianship Court and Social service involved Pt is [place] COPD Bronchodilators Steroids Pulmonary S/P Bradycardia Hypotenson chronic A-fib Sepsis ? Autonomic dysfunction? Thrombocytopenia chronic DVT prophylaxis SCD (no Lovenox due to thrombocytopenia) R shoulder pain Dec ROM xrays subluxation Ultram PRN PT Recuurent c-diff Gastroentritis? resolved LGI bleed Thrombocytopenia Decubitus ulcer buttocks Increased frequency urinating UA CS PVR all wnl Otitis externa Ciprodex
[2017-08-05] MEDS: Levalbuterol 1.25 MG/3 ML Inhal Soln UD INH SCH ×2 (07:57→15:33)
[2017-08-05] MEDS: Carbidopa/Levodopa 50/200 CR PO SCH ×3 (08:49→17:19)
[2017-08-05] MEDS: Bethanechol 50 MG TAB PO SCH ×3 (08:49→17:19)
--- NOTE | 2017-08-05 16:37 | CP.PCM.PN ---
Subjective - Date & Time of Evaluation Date of Evaluation: 08/05/17 Time of Evaluation: 22:22 - Subjective Subjective: Doing well Objective - Vital Signs/Intake and Output Vital Signs (last 24 hours): Temp Pulse Resp BP Pulse Ox 97.5 F L 75 20 102/64 98 08/05/17 16:04 08/05/17 16:04 08/05/17 16:04 08/05/17 16:04 08/05/17 16:04 - Medications Medications: Current Medications Acetaminophen (Tylenol 325mg Tab) 650 mg PO Q6 PRN PRN Reason: Pain, moderate (4-7) Last Admin: 07/17/17 17:19 Dose: 650 mg Amantadine HCl (Amantadine 100 Mg Cap) 100 mg PO BID [facility] Last Admin: 08/05/17 08:48 Dose: 100 mg Bethanechol Chloride (Urecholine) 50 mg PO TID [facility] Last Admin: 08/05/17 12:32 Dose: 50 mg Carbidopa/Levodopa (Sinemet Cr) 1 tab PO TID [facility] Last Admin: 08/05/17 12:31 Dose: 1 tab Docusate Sodium (Colace) 100 mg PO BID [facility] Last Admin: 08/05/17 08:48 Dose: 100 mg Famotidine (Pepcid) 40 mg PO DAILY [facility] Fluocinonide (Lidex 0.05% Oint) 1 applic TOP BID PRN PRN Reason: Rash Last Admin: 08/03/17 09:35 Dose: 1 applic Levalbuterol HCl (Xopenex) 1.25 mg INH RQ8 [facility] Last Admin: 08/05/17 15:33 Dose: 1.25 mg Nystatin (Nystop Topical Powder) 1 applic TOP TID [facility] Last Admin: 08/05/17 12:31 Dose: 1 applic - Labs Labs: 06/19/17 08:35 06/19/17 08:35 PT 12.6 Seconds (9.8-13.1) 05/18/17 05:30 INR 1.1 (0.9-1.2) 05/18/17 05:30 APTT 34.9 Seconds (25.6-37.1) 05/18/17 05:30 - Respiratory Exam Respiratory Exam: NORMAL BREATHING PATTERN - Cardiovascular Exam Cardiovascular Exam: REGULAR RHYTHM - GI/Abdominal Exam GI & Abdominal Exam: Normal Bowel Sounds Assessment and Plan - Assessment and Plan (Free Text) Assessment: MSA Parkinsons DX Shry Drager Low ext weakness?? Dx progression Fatigue -Meds?? reconsult neuro Disposition?? awaiting transfer to [place] Pt has medical decision making capacity but is financially vulnerable and benefits from legal guardianship Court and Social service involved Pt is [place] WWII COPD Bronchodilators Steroids Pulmonary S/P Bradycardia Hypotenson chronic A-fib Sepsis ? Autonomic dysfunction? Thrombocytopenia chronic DVT prophylaxis SCD (no Lovenox due to thrombocytopenia) R shoulder pain Dec ROM xrays subluxation Ultram PRN PT Recuurent c-diff Gastroentritis? resolved LGI bleed Thrombocytopenia Decubitus ulcer buttocks Increased frequency urinating UA CS PVR all wnl Otitis externa Ciprodex
[2017-08-06] MEDS: Levalbuterol 1.25 MG/3 ML Inhal Soln UD INH SCH ×3 (00:52→15:57)
[2017-08-06] MEDS: Bethanechol 50 MG TAB PO SCH ×3 (09:04→16:04)
[2017-08-06] MEDS: Carbidopa/Levodopa 50/200 CR PO SCH ×3 (09:04→16:04)
--- NOTE | 2017-08-06 14:23 | CP.PCM.PN ---
Subjective - Date & Time of Evaluation Date of Evaluation: 08/06/17 Time of Evaluation: 22:22 - Subjective Subjective: Above noted Objective - Vital Signs/Intake and Output Vital Signs (last 24 hours): Temp Pulse Resp BP Pulse Ox 97.6 F 82 20 144/97 H 99 08/06/17 08:22 08/06/17 08:22 08/06/17 08:22 08/06/17 08:22 08/06/17 08:22 - Medications Medications: Current Medications Acetaminophen (Tylenol 325mg Tab) 650 mg PO Q6 PRN PRN Reason: Pain, moderate (4-7) Last Admin: 07/17/17 17:19 Dose: 650 mg Amantadine HCl (Amantadine 100 Mg Cap) 100 mg PO BID [facility] Last Admin: 08/06/17 09:03 Dose: 100 mg Bethanechol Chloride (Urecholine) 50 mg PO TID [facility] Last Admin: 08/06/17 12:34 Dose: 50 mg Carbidopa/Levodopa (Sinemet Cr) 1 tab PO TID [facility] Last Admin: 08/06/17 12:35 Dose: 1 tab Docusate Sodium (Colace) 100 mg PO BID [facility] Last Admin: 08/06/17 09:03 Dose: 100 mg Famotidine (Pepcid) 40 mg PO DAILY [facility] Last Admin: 08/06/17 12:35 Dose: 40 mg Fluocinonide (Lidex 0.05% Oint) 1 applic TOP BID PRN PRN Reason: Rash Last Admin: 08/03/17 09:35 Dose: 1 applic Levalbuterol HCl (Xopenex) 1.25 mg INH RQ8 [facility] Last Admin: 08/06/17 08:35 Dose: 1.25 mg Nystatin (Nystop Topical Powder) 1 applic TOP TID [facility] Last Admin: 08/06/17 12:34 Dose: 1 applic - Labs Labs: 06/19/17 08:35 06/19/17 08:35 PT 12.6 Seconds (9.8-13.1) 05/18/17 05:30 INR 1.1 (0.9-1.2) 05/18/17 05:30 APTT 34.9 Seconds (25.6-37.1) 05/18/17 05:30 - Respiratory Exam Respiratory Exam: NORMAL BREATHING PATTERN - Cardiovascular Exam Cardiovascular Exam: REGULAR RHYTHM - GI/Abdominal Exam GI & Abdominal Exam: Normal Bowel Sounds Assessment and Plan - Assessment and Plan (Free Text) Assessment: MSA Parkinsons DX Shry Drager Low ext weakness?? Dx progression Fatigue -Meds?? reconsult neuro Disposition?? awaiting transfer to [place] Pt has medical decision making capacity but is financially vulnerable and benefits from legal guardianship Court and Social service involved Pt is [place] WWII COPD Bronchodilators Steroids Pulmonary S/P Bradycardia Hypotenson chronic A-fib Sepsis ? Autonomic dysfunction? Thrombocytopenia chronic DVT prophylaxis SCD (no Lovenox due to thrombocytopenia) R shoulder pain Dec ROM xrays subluxation Ultram PRN PT Recuurent c-diff Gastroentritis? resolved LGI bleed Thrombocytopenia Decubitus ulcer buttocks Increased frequency urinating UA CS PVR all wnl Otitis externa Ciprodex
[2017-08-07] MEDS: Levalbuterol 1.25 MG/3 ML Inhal Soln UD INH SCH ×3 (00:21→16:00)
[2017-08-07] MEDS: Bethanechol 50 MG TAB PO SCH ×3 (08:44→16:04)
[2017-08-07] MEDS: Carbidopa/Levodopa 50/200 CR PO SCH ×3 (08:45→16:04)
--- NOTE | 2017-08-07 20:56 | CP.PCM.PN ---
Subjective - Date & Time of Evaluation Date of Evaluation: 08/07/17 Time of Evaluation: 22:22 - Subjective Subjective: Above noted Objective - Vital Signs/Intake and Output Vital Signs (last 24 hours): Temp Pulse Resp BP Pulse Ox 97.5 F L 75 20 157/87 H 99 08/07/17 16:23 08/07/17 16:23 08/07/17 16:23 08/07/17 16:23 08/07/17 16:23 - Medications Medications: Current Medications Acetaminophen (Tylenol 325mg Tab) 650 mg PO Q6 PRN PRN Reason: Pain, moderate (4-7) Last Admin: 07/17/17 17:19 Dose: 650 mg Amantadine HCl (Amantadine 100 Mg Cap) 100 mg PO BID [facility] Last Admin: 08/07/17 16:04 Dose: 100 mg Bethanechol Chloride (Urecholine) 50 mg PO TID [facility] Last Admin: 08/07/17 16:04 Dose: 50 mg Carbidopa/Levodopa (Sinemet Cr) 1 tab PO TID [facility] Last Admin: 08/07/17 16:04 Dose: 1 tab Docusate Sodium (Colace) 100 mg PO BID [facility] Last Admin: 08/07/17 16:04 Dose: 100 mg Famotidine (Pepcid) 40 mg PO DAILY [facility] Last Admin: 08/07/17 08:45 Dose: 40 mg Fluocinonide (Lidex 0.05% Oint) 1 applic TOP BID PRN PRN Reason: Rash Last Admin: 08/07/17 08:44 Dose: 1 applic Levalbuterol HCl (Xopenex) 1.25 mg INH RQ8 [facility] Last Admin: 08/07/17 16:00 Dose: Not Given Nystatin (Nystop Topical Powder) 1 applic TOP TID [facility] Last Admin: 08/07/17 16:04 Dose: 1 applic - Labs Labs: 06/19/17 08:35 06/19/17 08:35 PT 12.6 Seconds (9.8-13.1) 05/18/17 05:30 INR 1.1 (0.9-1.2) 05/18/17 05:30 APTT 34.9 Seconds (25.6-37.1) 05/18/17 05:30 - Respiratory Exam Respiratory Exam: NORMAL BREATHING PATTERN - Cardiovascular Exam Cardiovascular Exam: REGULAR RHYTHM - GI/Abdominal Exam GI & Abdominal Exam: Normal Bowel Sounds Assessment and Plan - Assessment and Plan (Free Text) Plan: MSA Parkinsons DX Shry Drager Low ext weakness?? Dx progression Fatigue -Meds?? reconsult neuro Disposition?? awaiting transfer to [place] Pt has medical decision making capacity but is financially vulnerable and benefits from legal guardianship Court and Social service involved Pt is WW[place] COPD Bronchodilators Steroids Pulmonary S/P Bradycardia Hypotenson chronic A-fib Sepsis ? Autonomic dysfunction? Thrombocytopenia chronic DVT prophylaxis SCD (no Lovenox due to thrombocytopenia) R shoulder pain Dec ROM xrays subluxation Ultram PRN PT Recuurent c-diff Gastroentritis? resolved LGI bleed Thrombocytopenia Decubitus ulcer buttocks Increased frequency urinating UA CS PVR all wnl Otitis externa Ciprodex
[2017-08-08] MEDS: Levalbuterol 1.25 MG/3 ML Inhal Soln UD INH SCH ×3 (00:04→15:38)
[2017-08-08] MEDS: Carbidopa/Levodopa 50/200 CR PO SCH ×3 (08:30→16:42)
[2017-08-08] MEDS: Bethanechol 50 MG TAB PO SCH ×3 (08:31→16:43)
--- NOTE | 2017-08-08 15:00 | CP.PCM.PN ---
Subjective - Date & Time of Evaluation Date of Evaluation: 08/08/17 Time of Evaluation: 22:22 - Subjective Subjective: Above noted Objective - Vital Signs/Intake and Output Vital Signs (last 24 hours): Temp Pulse Resp BP Pulse Ox 97.7 F 91 H 20 103/56 L 95 08/08/17 08:32 08/08/17 08:32 08/08/17 08:32 08/08/17 08:32 08/08/17 08:32 - Medications Medications: Current Medications Acetaminophen (Tylenol 325mg Tab) 650 mg PO Q6 PRN PRN Reason: Pain, moderate (4-7) Last Admin: 07/17/17 17:19 Dose: 650 mg Amantadine HCl (Amantadine 100 Mg Cap) 100 mg PO BID [facility] Last Admin: 08/08/17 08:31 Dose: 100 mg Bethanechol Chloride (Urecholine) 50 mg PO TID [facility] Last Admin: 08/08/17 12:03 Dose: 50 mg Carbidopa/Levodopa (Sinemet Cr) 1 tab PO TID [facility] Last Admin: 08/08/17 12:03 Dose: 1 tab Docusate Sodium (Colace) 100 mg PO BID [facility] Last Admin: 08/08/17 08:30 Dose: 100 mg Famotidine (Pepcid) 40 mg PO DAILY [facility] Last Admin: 08/08/17 08:32 Dose: 40 mg Fluocinonide (Lidex 0.05% Oint) 1 applic TOP BID PRN PRN Reason: Rash Last Admin: 08/07/17 08:44 Dose: 1 applic Levalbuterol HCl (Xopenex) 1.25 mg INH RQ8 [facility] Last Admin: 08/08/17 07:38 Dose: 1.25 mg Nystatin (Nystop Topical Powder) 1 applic TOP TID [facility] Last Admin: 08/08/17 12:02 Dose: 1 applic - Labs Labs: 06/19/17 08:35 06/19/17 08:35 PT 12.6 Seconds (9.8-13.1) 05/18/17 05:30 INR 1.1 (0.9-1.2) 05/18/17 05:30 APTT 34.9 Seconds (25.6-37.1) 05/18/17 05:30 - Respiratory Exam Respiratory Exam: NORMAL BREATHING PATTERN - Cardiovascular Exam Cardiovascular Exam: REGULAR RHYTHM - GI/Abdominal Exam GI & Abdominal Exam: Normal Bowel Sounds Assessment and Plan - Assessment and Plan (Free Text) Assessment: MSA Parkinsons DX Shry Drager Low ext weakness?? Dx progression Fatigue -Meds?? reconsult neuro Disposition?? awaiting transfer to [place] Pt has medical decision making capacity but is financially vulnerable and benefits from legal guardianship Court and Social service involved Pt is WW[place] COPD Bronchodilators Steroids Pulmonary S/P Bradycardia Hypotenson chronic A-fib Sepsis ? Autonomic dysfunction? Thrombocytopenia chronic DVT prophylaxis SCD (no Lovenox due to thrombocytopenia) R shoulder pain Dec ROM xrays subluxation Ultram PRN PT Recuurent c-diff Gastroentritis? resolved LGI bleed Thrombocytopenia Decubitus ulcer buttocks Increased frequency urinating UA CS PVR all wnl Otitis externa Ciprodex
[2017-08-09] MEDS: Levalbuterol 1.25 MG/3 ML Inhal Soln UD INH SCH ×4 (00:44→23:41)
[2017-08-09] MEDS: Carbidopa/Levodopa 50/200 CR PO SCH ×3 (08:47→17:46)
[2017-08-09] MEDS: Bethanechol 50 MG TAB PO SCH ×3 (08:47→17:46)
--- NOTE | 2017-08-09 23:28 | CP.PCM.PN ---
Subjective - Date & Time of Evaluation Date of Evaluation: 08/09/17 Time of Evaluation: 22:22 - Subjective Subjective: Above noted Objective - Vital Signs/Intake and Output Vital Signs (last 24 hours): Temp Pulse Resp BP Pulse Ox 98 F 68 20 120/73 98 08/09/17 15:57 08/09/17 15:57 08/09/17 15:57 08/09/17 15:57 08/09/17 15:57 - Medications Medications: Current Medications Acetaminophen (Tylenol 325mg Tab) 650 mg PO Q6 PRN PRN Reason: Pain, moderate (4-7) Last Admin: 07/17/17 17:19 Dose: 650 mg Amantadine HCl (Amantadine 100 Mg Cap) 100 mg PO BID [facility] Last Admin: 08/09/17 17:47 Dose: 100 mg Bethanechol Chloride (Urecholine) 50 mg PO TID [facility] Last Admin: 08/09/17 17:46 Dose: 50 mg Carbidopa/Levodopa (Sinemet Cr) 1 tab PO TID [facility] Last Admin: 08/09/17 17:46 Dose: 1 tab Docusate Sodium (Colace) 100 mg PO BID [facility] Last Admin: 08/09/17 17:47 Dose: 100 mg Famotidine (Pepcid) 40 mg PO DAILY [facility] Last Admin: 08/09/17 08:48 Dose: 40 mg Fluocinonide (Lidex 0.05% Oint) 1 applic TOP BID PRN PRN Reason: Rash Last Admin: 08/07/17 08:44 Dose: 1 applic Levalbuterol HCl (Xopenex) 1.25 mg INH RQ8 [facility] Last Admin: 08/09/17 15:42 Dose: Not Given Nystatin (Nystop Topical Powder) 1 applic TOP TID [facility] Last Admin: 08/09/17 17:46 Dose: 1 applic - Labs Labs: 06/19/17 08:35 06/19/17 08:35 PT 12.6 Seconds (9.8-13.1) 05/18/17 05:30 INR 1.1 (0.9-1.2) 05/18/17 05:30 APTT 34.9 Seconds (25.6-37.1) 05/18/17 05:30 Assessment and Plan - Assessment and Plan (Free Text) Assessment: MSA Parkinsons DX Shry Drager Low ext weakness?? Dx progression Fatigue -Meds?? reconsult neuro Disposition?? awaiting transfer to [place] Pt has medical decision making capacity but is financially vulnerable and benefits from legal guardianship Court and Social service involved Pt is [place] COPD Bronchodilators Steroids Pulmonary S/P Bradycardia Hypotenson chronic A-fib Sepsis ? Autonomic dysfunction? Thrombocytopenia chronic DVT prophylaxis SCD (no Lovenox due to thrombocytopenia) R shoulder pain Dec ROM xrays subluxation Ultram PRN PT Recuurent c-diff Gastroentritis? resolved LGI bleed Thrombocytopenia Decubitus ulcer buttocks Increased frequency urinating UA CS PVR all wnl Otitis externa Ciprodex
[2017-08-10] MEDS: Carbidopa/Levodopa 50/200 CR PO SCH ×3 (08:04→16:00)
[2017-08-10] MEDS: Bethanechol 50 MG TAB PO SCH ×3 (08:05→16:00)
[2017-08-10] MEDS: Levalbuterol 1.25 MG/3 ML Inhal Soln UD INH SCH ×3 (08:13→23:14)
--- NOTE | 2017-08-10 18:01 | CP.PCM.PN ---
Subjective - Date & Time of Evaluation Date of Evaluation: 08/10/17 Time of Evaluation: 22:22 - Subjective Subjective: Above noted Objective - Vital Signs/Intake and Output Vital Signs (last 24 hours): Temp Pulse Resp BP Pulse Ox 97.5 F L 79 20 123/74 97 08/10/17 15:44 08/10/17 15:44 08/10/17 15:44 08/10/17 15:44 08/10/17 15:44 - Medications Medications: Current Medications Acetaminophen (Tylenol 325mg Tab) 650 mg PO Q6 PRN PRN Reason: Pain, moderate (4-7) Last Admin: 07/17/17 17:19 Dose: 650 mg Amantadine HCl (Amantadine 100 Mg Cap) 100 mg PO BID [facility] Last Admin: 08/10/17 16:00 Dose: 100 mg Bethanechol Chloride (Urecholine) 50 mg PO TID [facility] Last Admin: 08/10/17 16:00 Dose: 50 mg Carbidopa/Levodopa (Sinemet Cr) 1 tab PO TID [facility] Last Admin: 08/10/17 16:00 Dose: 1 tab Docusate Sodium (Colace) 100 mg PO BID [facility] Last Admin: 08/10/17 16:00 Dose: 100 mg Famotidine (Pepcid) 40 mg PO DAILY [facility] Last Admin: 08/10/17 08:05 Dose: 40 mg Fluocinonide (Lidex 0.05% Oint) 1 applic TOP BID PRN PRN Reason: Rash Last Admin: 08/07/17 08:44 Dose: 1 applic Levalbuterol HCl (Xopenex) 1.25 mg INH RQ8 [facility] Last Admin: 08/10/17 15:21 Dose: Not Given Nystatin (Nystop Topical Powder) 1 applic TOP TID [facility] Last Admin: 08/10/17 16:00 Dose: 1 applic - Labs Labs: 06/19/17 08:35 06/19/17 08:35 PT 12.6 Seconds (9.8-13.1) 05/18/17 05:30 INR 1.1 (0.9-1.2) 05/18/17 05:30 APTT 34.9 Seconds (25.6-37.1) 05/18/17 05:30 - Respiratory Exam Respiratory Exam: NORMAL BREATHING PATTERN - Cardiovascular Exam Cardiovascular Exam: Tachycardia - GI/Abdominal Exam GI & Abdominal Exam: Normal Bowel Sounds Assessment and Plan - Assessment and Plan (Free Text) Assessment: MSA Parkinsons DX Shry Drager Low ext weakness?? Dx progression Fatigue -Meds?? reconsult neuro Disposition?? awaiting transfer to [place] Pt has medical decision making capacity but is financially vulnerable and benefits from legal guardianship Court and Social service involved Pt is [place] COPD Bronchodilators Steroids Pulmonary S/P Bradycardia Hypotenson chronic A-fib Sepsis ? Autonomic dysfunction? Thrombocytopenia chronic DVT prophylaxis SCD (no Lovenox due to thrombocytopenia) R shoulder pain Dec ROM xrays subluxation Ultram PRN PT Recuurent c-diff Gastroentritis? resolved LGI bleed Thrombocytopenia Decubitus ulcer buttocks Increased frequency urinating UA CS PVR all wnl Otitis externa Ciprodex
[2017-08-11] MEDS: Carbidopa/Levodopa 50/200 CR PO SCH ×3 (08:52→17:03)
[2017-08-11] MEDS: Bethanechol 50 MG TAB PO SCH ×3 (08:52→17:03)
[2017-08-11] MEDS: Levalbuterol 1.25 MG/3 ML Inhal Soln UD INH SCH ×3 (09:23→22:59)
--- NOTE | 2017-08-11 10:44 | CP.PCM.PN ---
Subjective - Date & Time of Evaluation Date of Evaluation: 08/11/17 Time of Evaluation: 10:42 - Subjective Subjective: Mr. Gutierrez was seen and examined at the bedside. He is awake, but with episode of confusion. He is unable to state time, person, time, and person. He is unable to follow simple commands. He is very stiff with his right arm. There was no untoward events overnight. Objective - Vital Signs/Intake and Output Vital Signs (last 24 hours): Temp Pulse Resp BP Pulse Ox 97.7 F 71 20 140/79 99 08/11/17 08:31 08/11/17 08:31 08/11/17 08:31 08/11/17 08:31 08/11/17 08:31 - Medications Medications: Current Medications Acetaminophen (Tylenol 325mg Tab) 650 mg PO Q6 PRN PRN Reason: Pain, moderate (4-7) Last Admin: 07/17/17 17:19 Dose: 650 mg Amantadine HCl (Amantadine 100 Mg Cap) 100 mg PO BID [facility] Last Admin: 08/11/17 08:51 Dose: 100 mg Bethanechol Chloride (Urecholine) 50 mg PO TID [facility] Last Admin: 08/11/17 08:52 Dose: 50 mg Carbidopa/Levodopa (Sinemet Cr) 1 tab PO TID [facility] Last Admin: 08/11/17 08:52 Dose: 1 tab Carbidopa/Levodopa (Sinemet 10/100) 1 tab PO BID [facility] Docusate Sodium (Colace) 100 mg PO BID [facility] Last Admin: 08/11/17 08:52 Dose: 100 mg Famotidine (Pepcid) 40 mg PO DAILY [facility] Last Admin: 08/11/17 08:52 Dose: 40 mg Fluocinonide (Lidex 0.05% Oint) 1 applic TOP BID PRN PRN Reason: Rash Last Admin: 08/07/17 08:44 Dose: 1 applic Levalbuterol HCl (Xopenex) 1.25 mg INH RQ8 [facility] Last Admin: 08/11/17 09:23 Dose: Not Given Nystatin (Nystop Topical Powder) 1 applic TOP TID [facility] Last Admin: 08/11/17 08:52 Dose: 1 applic - Labs Labs: 06/19/17 08:35 06/19/17 08:35 PT 12.6 Seconds (9.8-13.1) 05/18/17 05:30 INR 1.1 (0.9-1.2) 05/18/17 05:30 APTT 34.9 Seconds (25.6-37.1) 05/18/17 05:30 - Constitutional Appears: No Acute Distress - Head Exam Head Exam: NORMAL INSPECTION - Neurological Exam Neurological Exam: Awake Neuro motor strength exam: Left Upper Extremity: 3 (very stiff), Right Upper Extremity: 3, Left Lower Extremity: 2/1, Right Lower Extremity: 2/1 Additional comments: He has episode of confusion, but easily redirected. Unable to follow commands. Assessment and Plan (1) Parkinson disease Assessment & Plan: Case discussed with Dr. Gordon, continue all current medical, physical therapies. Recommend Sinemet 10/100 mg i tab at 0400 and 12:00 to be added to his current Sinemet dose. Status: Chronic
--- NOTE | 2017-08-11 20:44 | CP.PCM.PN ---
Subjective - Date & Time of Evaluation Date of Evaluation: 08/11/17 Time of Evaluation: 22:22 - Subjective Subjective: Neuro note appreciated Objective - Vital Signs/Intake and Output Vital Signs (last 24 hours): Temp Pulse Resp BP Pulse Ox 97.4 F L 73 20 102/62 96 08/11/17 16:25 08/11/17 16:25 08/11/17 16:25 08/11/17 16:25 08/11/17 16:25 - Medications Medications: Current Medications Acetaminophen (Tylenol 325mg Tab) 650 mg PO Q6 PRN PRN Reason: Pain, moderate (4-7) Last Admin: 07/17/17 17:19 Dose: 650 mg Amantadine HCl (Amantadine 100 Mg Cap) 100 mg PO BID [facility] Last Admin: 08/11/17 17:02 Dose: 100 mg Bethanechol Chloride (Urecholine) 50 mg PO TID [facility] Last Admin: 08/11/17 17:03 Dose: 50 mg Carbidopa/Levodopa (Sinemet Cr) 1 tab PO TID [facility] Last Admin: 08/11/17 17:03 Dose: 1 tab Carbidopa/Levodopa (Sinemet 10/100) 1 tab PO BID [facility] Last Admin: 08/11/17 17:03 Dose: 1 tab Docusate Sodium (Colace) 100 mg PO BID [facility] Last Admin: 08/11/17 17:02 Dose: 100 mg Famotidine (Pepcid) 40 mg PO DAILY [facility] Last Admin: 08/11/17 08:52 Dose: 40 mg Fluocinonide (Lidex 0.05% Oint) 1 applic TOP BID PRN PRN Reason: Rash Last Admin: 08/07/17 08:44 Dose: 1 applic Levalbuterol HCl (Xopenex) 1.25 mg INH RQ8 [facility] Last Admin: 08/11/17 19:22 Dose: Not Given Nystatin (Nystop Topical Powder) 1 applic TOP TID [facility] Last Admin: 08/11/17 17:02 Dose: 1 applic - Labs Labs: 06/19/17 08:35 06/19/17 08:35 PT 12.6 Seconds (9.8-13.1) 05/18/17 05:30 INR 1.1 (0.9-1.2) 05/18/17 05:30 APTT 34.9 Seconds (25.6-37.1) 05/18/17 05:30 - Respiratory Exam Respiratory Exam: NORMAL BREATHING PATTERN - Cardiovascular Exam Cardiovascular Exam: REGULAR RHYTHM - GI/Abdominal Exam GI & Abdominal Exam: Normal Bowel Sounds Assessment and Plan - Assessment and Plan (Free Text) Assessment: MSA Parkinsons DX Shry Drager Low ext weakness?? Dx progression Fatigue -Meds?? Neuro note appreciated Disposition?? awaiting transfer to [place] Pt has medical decision making capacity but is financially vulnerable and benefits from legal guardianship Court and Social service involved Pt is [place] COPD Bronchodilators Steroids Pulmonary S/P Bradycardia Hypotenson chronic A-fib Sepsis ? Autonomic dysfunction? Thrombocytopenia chronic DVT prophylaxis SCD (no Lovenox due to thrombocytopenia) R shoulder pain Dec ROM xrays subluxation Ultram PRN PT Recuurent c-diff Gastroentritis? resolved LGI bleed Thrombocytopenia Decubitus ulcer buttocks Increased frequency urinating UA CS PVR all wnl Otitis externa Ciprodex
[2017-08-12] MEDS: Levalbuterol 1.25 MG/3 ML Inhal Soln UD INH SCH (08:34)
[2017-08-12] MEDS: Bethanechol 50 MG TAB PO SCH ×3 (08:48→17:33)
[2017-08-12] MEDS: Carbidopa/Levodopa 50/200 CR PO SCH ×3 (08:49→17:33)
--- NOTE | 2017-08-12 20:38 | CP.PCM.PN ---
Subjective - Date & Time of Evaluation Date of Evaluation: 08/12/17 Time of Evaluation: 22:22 - Subjective Subjective: Above noted Objective - Vital Signs/Intake and Output Vital Signs (last 24 hours): Temp Pulse Resp BP Pulse Ox 98 F 65 20 126/71 98 08/12/17 16:12 08/12/17 16:12 08/12/17 16:12 08/12/17 16:12 08/12/17 16:12 - Medications Medications: Current Medications Acetaminophen (Tylenol 325mg Tab) 650 mg PO Q6 PRN PRN Reason: Pain, moderate (4-7) Last Admin: 07/17/17 17:19 Dose: 650 mg Amantadine HCl (Amantadine 100 Mg Cap) 100 mg PO BID [facility] Last Admin: 08/12/17 17:33 Dose: 100 mg Bethanechol Chloride (Urecholine) 50 mg PO TID [facility] Last Admin: 08/12/17 17:33 Dose: 50 mg Carbidopa/Levodopa (Sinemet Cr) 1 tab PO TID [facility] Last Admin: 08/12/17 17:33 Dose: 1 tab Carbidopa/Levodopa (Sinemet 10/100) 1 tab PO BID [facility] Last Admin: 08/12/17 17:33 Dose: 1 tab Docusate Sodium (Colace) 100 mg PO BID [facility] Last Admin: 08/12/17 17:33 Dose: 100 mg Famotidine (Pepcid) 40 mg PO DAILY [facility] Last Admin: 08/12/17 08:48 Dose: 40 mg Fluocinonide (Lidex 0.05% Oint) 1 applic TOP BID PRN PRN Reason: Rash Last Admin: 08/07/17 08:44 Dose: 1 applic Nystatin (Nystop Topical Powder) 1 applic TOP TID [facility] Last Admin: 08/12/17 17:33 Dose: 1 applic - Labs Labs: 06/19/17 08:35 06/19/17 08:35 PT 12.6 Seconds (9.8-13.1) 05/18/17 05:30 INR 1.1 (0.9-1.2) 05/18/17 05:30 APTT 34.9 Seconds (25.6-37.1) 05/18/17 05:30 - Respiratory Exam Respiratory Exam: NORMAL BREATHING PATTERN - Cardiovascular Exam Cardiovascular Exam: REGULAR RHYTHM - GI/Abdominal Exam GI & Abdominal Exam: Normal Bowel Sounds Assessment and Plan - Assessment and Plan (Free Text) Assessment: MSA Parkinsons DX Shry Drager Low ext weakness?? Dx progression Fatigue -Meds?? Neuro note appreciated Disposition?? awaiting transfer to [place] Pt has medical decision making capacity but is financially vulnerable and benefits from legal guardianship Court and Social service involved Pt is [place] COPD Bronchodilators Steroids Pulmonary S/P Bradycardia Hypotenson chronic A-fib Sepsis ? Autonomic dysfunction? Thrombocytopenia chronic DVT prophylaxis SCD (no Lovenox due to thrombocytopenia) R shoulder pain Dec ROM xrays subluxation Ultram PRN PT Recuurent c-diff Gastroentritis? resolved LGI bleed Thrombocytopenia Decubitus ulcer buttocks Increased frequency urinating UA CS PVR all wnl Otitis externa Ciprodex
[2017-08-13] MEDS: Carbidopa/Levodopa 50/200 CR PO SCH ×3 (08:33→17:25)
[2017-08-13] MEDS: Bethanechol 50 MG TAB PO SCH ×3 (08:33→17:24)
--- NOTE | 2017-08-13 10:55 | CP.PCM.PN ---
Subjective - Date & Time of Evaluation Date of Evaluation: 08/13/17 Time of Evaluation: 10:52 - Subjective Subjective: Mr. Gutierrez was seen and examined at the bedside. He is awake, but with confusion. He is unable to answer questions and follow commands. He is able to move left arm spontaneously, but limited right arm. There was no untoward events overnight. Objective - Vital Signs/Intake and Output Vital Signs (last 24 hours): Temp Pulse Resp BP Pulse Ox 97.6 F 78 20 133/67 99 08/13/17 07:51 08/13/17 07:51 08/13/17 07:51 08/13/17 07:51 08/13/17 07:51 - Medications Medications: Current Medications Acetaminophen (Tylenol 325mg Tab) 650 mg PO Q6 PRN PRN Reason: Pain, moderate (4-7) Last Admin: 07/17/17 17:19 Dose: 650 mg Amantadine HCl (Amantadine 100 Mg Cap) 100 mg PO BID [facility] Last Admin: 08/13/17 08:33 Dose: 100 mg Bethanechol Chloride (Urecholine) 50 mg PO TID [facility] Last Admin: 08/13/17 08:33 Dose: 50 mg Carbidopa/Levodopa (Sinemet Cr) 1 tab PO TID [facility] Last Admin: 08/13/17 08:33 Dose: 1 tab Carbidopa/Levodopa (Sinemet 10/100) 1 tab PO BID [facility] Last Admin: 08/13/17 08:33 Dose: 1 tab Dimethicone (Proshield Plus Skin Protectant) 1 applic TOP Q8 [facility] Docusate Sodium (Colace) 100 mg PO BID [facility] Last Admin: 08/13/17 08:33 Dose: 100 mg Famotidine (Pepcid) 40 mg PO DAILY [facility] Last Admin: 08/13/17 08:33 Dose: 40 mg Fluocinonide (Lidex 0.05% Oint) 1 applic TOP BID PRN PRN Reason: Rash Last Admin: 08/07/17 08:44 Dose: 1 applic Nystatin (Nystop Topical Powder) 1 applic TOP TID [facility] Last Admin: 08/13/17 08:33 Dose: 1 applic - Labs Labs: 06/19/17 08:35 06/19/17 08:35 PT 12.6 Seconds (9.8-13.1) 05/18/17 05:30 INR 1.1 (0.9-1.2) 05/18/17 05:30 APTT 34.9 Seconds (25.6-37.1) 05/18/17 05:30 - Constitutional Appears: No Acute Distress - Head Exam Head Exam: NORMAL INSPECTION - Neurological Exam Neurological Exam: Awake Neuro motor strength exam: Left Upper Extremity: 2/1, Right Upper Extremity: 4, Left Lower Extremity: 2/1, Right Lower Extremity: 2/1 Additional comments: Neurological unchanged from previous examination. Assessment and Plan (1) Parkinson disease Assessment & Plan: Case discussed with Dr. Gordon, continue all current medical and physical therapies. There is no new recommendations from neurology. Status: Chronic
[2017-08-13] MEDS: Proshield Plus GEL TOP SCH ×2 (11:17→17:25)
--- NOTE | 2017-08-13 16:22 | CP.PCM.PN ---
Subjective - Date & Time of Evaluation Date of Evaluation: 08/13/17 Time of Evaluation: 22:22 - Subjective Subjective: Rash on back Objective - Vital Signs/Intake and Output Vital Signs (last 24 hours): Temp Pulse Resp BP Pulse Ox 97.5 F L 75 18 122/75 96 08/13/17 16:19 08/13/17 16:19 08/13/17 16:19 08/13/17 16:19 08/13/17 16:19 - Medications Medications: Current Medications Acetaminophen (Tylenol 325mg Tab) 650 mg PO Q6 PRN PRN Reason: Pain, moderate (4-7) Last Admin: 07/17/17 17:19 Dose: 650 mg Amantadine HCl (Amantadine 100 Mg Cap) 100 mg PO BID [facility] Last Admin: 08/13/17 08:33 Dose: 100 mg Bethanechol Chloride (Urecholine) 50 mg PO TID [facility] Last Admin: 08/13/17 12:54 Dose: 50 mg Carbidopa/Levodopa (Sinemet Cr) 1 tab PO TID [facility] Last Admin: 08/13/17 12:54 Dose: 1 tab Carbidopa/Levodopa (Sinemet 10/100) 1 tab PO BID [facility] Last Admin: 08/13/17 08:33 Dose: 1 tab Dimethicone (Proshield Plus Skin Protectant) 1 applic TOP Q8 [facility] Last Admin: 08/13/17 11:17 Dose: 1 applic Docusate Sodium (Colace) 100 mg PO BID [facility] Last Admin: 08/13/17 08:33 Dose: 100 mg Famotidine (Pepcid) 40 mg PO DAILY [facility] Last Admin: 08/13/17 08:33 Dose: 40 mg Fluocinonide (Lidex 0.05% Oint) 1 applic TOP BID PRN PRN Reason: Rash Last Admin: 08/07/17 08:44 Dose: 1 applic Nystatin (Nystop Topical Powder) 1 applic TOP TID [facility] Last Admin: 08/13/17 12:55 Dose: 1 applic - Labs Labs: 06/19/17 08:35 06/19/17 08:35 PT 12.6 Seconds (9.8-13.1) 05/18/17 05:30 INR 1.1 (0.9-1.2) 05/18/17 05:30 APTT 34.9 Seconds (25.6-37.1) 05/18/17 05:30 - Respiratory Exam Respiratory Exam: NORMAL BREATHING PATTERN - Cardiovascular Exam Cardiovascular Exam: REGULAR RHYTHM - GI/Abdominal Exam GI & Abdominal Exam: Normal Bowel Sounds Assessment and Plan - Assessment and Plan (Free Text) Assessment: Rash ?? ID ( no Derm) MSA Parkinsons DX Shry Drager Low ext weakness?? Dx progression Fatigue -Meds?? Neuro note appreciated Disposition?? awaiting transfer to [place] Pt has medical decision making capacity but is financially vulnerable and benefits from legal guardianship Court and Social service involved Pt is [place] COPD Bronchodilators Steroids Pulmonary S/P Bradycardia Hypotenson chronic A-fib Sepsis ? Autonomic dysfunction? Thrombocytopenia chronic DVT prophylaxis SCD (no Lovenox due to thrombocytopenia) R shoulder pain Dec ROM xrays subluxation Ultram PRN PT Recuurent c-diff Gastroentritis? resolved LGI bleed Thrombocytopenia Decubitus ulcer buttocks Increased frequency urinating UA CS PVR all wnl Otitis externa Ciprodex
[2017-08-14] MEDS: Proshield Plus GEL TOP SCH ×3 (00:35→16:15)
[2017-08-14] MEDS: Bethanechol 50 MG TAB PO SCH ×3 (08:44→16:14)
[2017-08-14] MEDS: Carbidopa/Levodopa 50/200 CR PO SCH ×3 (08:45→16:14)
--- NOTE | 2017-08-14 09:27 | CP.PCM.PN ---
Subjective - Date & Time of Evaluation Date of Evaluation: 08/14/17 Time of Evaluation: 09:25 - Subjective Subjective: Mr. Gutierrez was seen and examined at the bedside. He is alert, but with episode of confusion. He is unable to follow commands, but moves his right upper extremity more than the left. He is able to tolerate PO intake. There was no untoward events overnight. Objective - Vital Signs/Intake and Output Vital Signs (last 24 hours): Temp Pulse Resp BP Pulse Ox 97.6 F 66 20 144/87 95 08/14/17 07:47 08/14/17 07:47 08/14/17 07:47 08/14/17 07:47 08/14/17 07:47 - Medications Medications: Current Medications Acetaminophen (Tylenol 325mg Tab) 650 mg PO Q6 PRN PRN Reason: Pain, moderate (4-7) Last Admin: 07/17/17 17:19 Dose: 650 mg Amantadine HCl (Amantadine 100 Mg Cap) 100 mg PO BID [facility] Last Admin: 08/14/17 08:44 Dose: 100 mg Bethanechol Chloride (Urecholine) 50 mg PO TID [facility] Last Admin: 08/14/17 08:44 Dose: 50 mg Carbidopa/Levodopa (Sinemet Cr) 1 tab PO TID [facility] Last Admin: 08/14/17 08:45 Dose: 1 tab Carbidopa/Levodopa (Sinemet 10/100) 1 tab PO BID [facility] Last Admin: 08/14/17 08:44 Dose: 1 tab Dimethicone (Proshield Plus Skin Protectant) 1 applic TOP Q8 [facility] Last Admin: 08/14/17 08:45 Dose: 1 applic Docusate Sodium (Colace) 100 mg PO BID [facility] Last Admin: 08/14/17 08:44 Dose: 100 mg Famotidine (Pepcid) 40 mg PO DAILY [facility] Last Admin: 08/14/17 08:44 Dose: 40 mg Fluocinonide (Lidex 0.05% Oint) 1 applic TOP BID PRN PRN Reason: Rash Last Admin: 08/07/17 08:44 Dose: 1 applic Nystatin (Nystop Topical Powder) 1 applic TOP TID [facility] Last Admin: 08/14/17 08:44 Dose: 1 applic - Labs Labs: 06/19/17 08:35 06/19/17 08:35 PT 12.6 Seconds (9.8-13.1) 05/18/17 05:30 INR 1.1 (0.9-1.2) 05/18/17 05:30 APTT 34.9 Seconds (25.6-37.1) 05/18/17 05:30 - Constitutional Appears: No Acute Distress, Confused - Head Exam Head Exam: NORMAL INSPECTION - Neurological Exam Neurological Exam: Awake Neuro motor strength exam: Left Upper Extremity: 3, Right Upper Extremity: 2/1, Left Lower Extremity: 2/1, Right Lower Extremity: 2/1 Additional comments: Neurological unchanged from previous examination. Assessment and Plan (1) Parkinson disease Assessment & Plan: Case discussed with Dr. Gordon, continue all current medical and physical therapies. There is no new recommendation from neurology. Status: Chronic
--- NOTE | 2017-08-14 20:46 | CP.PCM.PN ---
Subjective - Date & Time of Evaluation Date of Evaluation: 08/14/17 Time of Evaluation: 22:22 - Subjective Subjective: Above noted Objective - Vital Signs/Intake and Output Vital Signs (last 24 hours): Temp Pulse Resp BP Pulse Ox 97.4 F L 70 19 149/66 98 08/14/17 16:21 08/14/17 16:21 08/14/17 16:21 08/14/17 16:21 08/14/17 16:21 - Medications Medications: Current Medications Acetaminophen (Tylenol 325mg Tab) 650 mg PO Q6 PRN PRN Reason: Pain, moderate (4-7) Last Admin: 07/17/17 17:19 Dose: 650 mg Amantadine HCl (Amantadine 100 Mg Cap) 100 mg PO BID [facility] Last Admin: 08/14/17 16:15 Dose: 100 mg Bethanechol Chloride (Urecholine) 50 mg PO TID [facility] Last Admin: 08/14/17 16:14 Dose: 50 mg Carbidopa/Levodopa (Sinemet Cr) 1 tab PO TID [facility] Last Admin: 08/14/17 16:14 Dose: 1 tab Carbidopa/Levodopa (Sinemet 10/100) 1 tab PO BID [facility] Last Admin: 08/14/17 16:14 Dose: 1 tab Dimethicone (Proshield Plus Skin Protectant) 1 applic TOP Q8 [facility] Last Admin: 08/14/17 16:15 Dose: 1 applic Docusate Sodium (Colace) 100 mg PO BID [facility] Last Admin: 08/14/17 16:14 Dose: 100 mg Famotidine (Pepcid) 40 mg PO DAILY [facility] Last Admin: 08/14/17 08:44 Dose: 40 mg Fluocinonide (Lidex 0.05% Oint) 1 applic TOP BID PRN PRN Reason: Rash Last Admin: 08/07/17 08:44 Dose: 1 applic Nystatin (Nystop Topical Powder) 1 applic TOP TID [facility] Last Admin: 08/14/17 16:14 Dose: 1 applic - Labs Labs: 06/19/17 08:35 06/19/17 08:35 PT 12.6 Seconds (9.8-13.1) 05/18/17 05:30 INR 1.1 (0.9-1.2) 05/18/17 05:30 APTT 34.9 Seconds (25.6-37.1) 05/18/17 05:30 - Respiratory Exam Respiratory Exam: NORMAL BREATHING PATTERN - Cardiovascular Exam Cardiovascular Exam: REGULAR RHYTHM - GI/Abdominal Exam GI & Abdominal Exam: Normal Bowel Sounds Assessment and Plan - Assessment and Plan (Free Text) Assessment: Rash ?? ID ( no Derm) MSA Parkinsons DX Shry Drager Low ext weakness?? Dx progression Fatigue -Meds?? Neuro note appreciated Disposition?? awaiting transfer to [place] Pt has medical decision making capacity but is financially vulnerable and benefits from legal guardianship Court and Social service involved Pt is [place] COPD Bronchodilators Steroids Pulmonary S/P Bradycardia Hypotenson chronic A-fib Sepsis ? Autonomic dysfunction? Thrombocytopenia chronic DVT prophylaxis SCD (no Lovenox due to thrombocytopenia) R shoulder pain Dec ROM xrays subluxation Ultram PRN PT Recuurent c-diff Gastroentritis? resolved LGI bleed Thrombocytopenia Decubitus ulcer buttocks Increased frequency urinating UA CS PVR all wnl Otitis externa Ciprodex
[2017-08-15] MEDS: Bethanechol 50 MG TAB PO SCH ×3 (09:35→16:48)
[2017-08-15] MEDS: Proshield Plus GEL TOP SCH ×2 (09:37→16:46)
[2017-08-15] MEDS: Carbidopa/Levodopa 50/200 CR PO SCH ×3 (09:38→16:48)
--- NOTE | 2017-08-15 14:15 | CP.PCM.PN ---
Subjective - Date & Time of Evaluation Date of Evaluation: 08/15/17 Time of Evaluation: 08:00 - Subjective Subjective: awake alert NAD rashes noted rx reordered Objective - Vital Signs/Intake and Output Vital Signs (last 24 hours): Temp Pulse Resp BP Pulse Ox 97.5 F L 68 20 123/75 98 08/15/17 00:02 08/15/17 00:02 08/15/17 00:02 08/15/17 00:02 08/15/17 00:02 - Medications Medications: Current Medications Acetaminophen (Tylenol 325mg Tab) 650 mg PO Q6 PRN PRN Reason: Pain, moderate (4-7) Last Admin: 07/17/17 17:19 Dose: 650 mg Amantadine HCl (Amantadine 100 Mg Cap) 100 mg PO BID [facility] Last Admin: 08/15/17 09:35 Dose: 100 mg Bethanechol Chloride (Urecholine) 50 mg PO TID [facility] Last Admin: 08/15/17 12:35 Dose: 50 mg Carbidopa/Levodopa (Sinemet Cr) 1 tab PO TID [facility] Last Admin: 08/15/17 09:38 Dose: 1 tab Carbidopa/Levodopa (Sinemet 10/100) 1 tab PO BID [facility] Last Admin: 08/15/17 09:38 Dose: 1 tab Dimethicone (Proshield Plus Skin Protectant) 1 applic TOP Q8 [facility] Last Admin: 08/15/17 09:37 Dose: 1 applic Docusate Sodium (Colace) 100 mg PO BID [facility] Last Admin: 08/15/17 09:34 Dose: 100 mg Famotidine (Pepcid) 40 mg PO DAILY [facility] Last Admin: 08/15/17 09:36 Dose: 40 mg Fluocinonide (Lidex 0.05% Oint) 1 applic TOP BID PRN PRN Reason: Rash Last Admin: 08/07/17 08:44 Dose: 1 applic Nystatin (Nystop Topical Powder) 1 applic TOP TID [facility] Last Admin: 08/15/17 12:34 Dose: 1 applic - Labs Labs: 06/19/17 08:35 06/19/17 08:35 PT 12.6 Seconds (9.8-13.1) 05/18/17 05:30 INR 1.1 (0.9-1.2) 05/18/17 05:30 APTT 34.9 Seconds (25.6-37.1) 05/18/17 05:30 Assessment and Plan (1) Parkinsonism Status: Acute (2) Bradyarrhythmia Status: Acute
--- NOTE | 2017-08-15 15:50 | CP.PCM.PN ---
Subjective - Date & Time of Evaluation Date of Evaluation: 08/15/17 Time of Evaluation: 22:22 - Subjective Subjective: Seen by ID Objective - Vital Signs/Intake and Output Vital Signs (last 24 hours): Temp Pulse Resp BP Pulse Ox 97.5 F L 68 20 123/75 98 08/15/17 00:02 08/15/17 00:02 08/15/17 00:02 08/15/17 00:02 08/15/17 00:02 - Medications Medications: Current Medications Acetaminophen (Tylenol 325mg Tab) 650 mg PO Q6 PRN PRN Reason: Pain, moderate (4-7) Last Admin: 07/17/17 17:19 Dose: 650 mg Amantadine HCl (Amantadine 100 Mg Cap) 100 mg PO BID [facility] Last Admin: 08/15/17 09:35 Dose: 100 mg Bethanechol Chloride (Urecholine) 50 mg PO TID [facility] Last Admin: 08/15/17 12:35 Dose: 50 mg Carbidopa/Levodopa (Sinemet Cr) 1 tab PO TID [facility] Last Admin: 08/15/17 09:38 Dose: 1 tab Carbidopa/Levodopa (Sinemet 10/100) 1 tab PO BID [facility] Last Admin: 08/15/17 09:38 Dose: 1 tab Dimethicone (Proshield Plus Skin Protectant) 1 applic TOP Q8 [facility] Last Admin: 08/15/17 09:37 Dose: 1 applic Docusate Sodium (Colace) 100 mg PO BID [facility] Last Admin: 08/15/17 09:34 Dose: 100 mg Famotidine (Pepcid) 40 mg PO DAILY [facility] Last Admin: 08/15/17 09:36 Dose: 40 mg Fluocinonide (Lidex 0.05% Oint) 1 applic TOP BID PRN PRN Reason: Rash Last Admin: 08/07/17 08:44 Dose: 1 applic Nystatin (Nystop Topical Powder) 1 applic TOP TID [facility] Last Admin: 08/15/17 12:34 Dose: 1 applic - Labs Labs: 06/19/17 08:35 06/19/17 08:35 PT 12.6 Seconds (9.8-13.1) 05/18/17 05:30 INR 1.1 (0.9-1.2) 05/18/17 05:30 APTT 34.9 Seconds (25.6-37.1) 05/18/17 05:30 - Respiratory Exam Respiratory Exam: NORMAL BREATHING PATTERN - Cardiovascular Exam Cardiovascular Exam: REGULAR RHYTHM - GI/Abdominal Exam GI & Abdominal Exam: Normal Bowel Sounds Assessment and Plan - Assessment and Plan (Free Text) Assessment: Rash ID appreciated MSA Parkinsons DX Shry Drager Low ext weakness?? Dx progression Fatigue -Meds?? Neuro note appreciated Disposition?? awaiting transfer to [place] Pt has medical decision making capacity but is financially vulnerable and benefits from legal guardianship Court and Social service involved Pt is [place] WW[place] COPD Bronchodilators Steroids Pulmonary S/P Bradycardia Hypotenson chronic A-fib Sepsis ? Autonomic dysfunction? Thrombocytopenia chronic DVT prophylaxis SCD (no Lovenox due to thrombocytopenia) R shoulder pain Dec ROM xrays subluxation Ultram PRN PT Recuurent c-diff Gastroentritis? resolved LGI bleed Thrombocytopenia Decubitus ulcer buttocks Increased frequency urinating UA CS PVR all wnl Otitis externa Ciprodex
[2017-08-16] MEDS: Proshield Plus GEL TOP SCH ×4 (01:12→17:50)
[2017-08-16] MEDS: Carbidopa/Levodopa 50/200 CR PO SCH ×3 (08:50→17:44)
[2017-08-16] MEDS: Bethanechol 50 MG TAB PO SCH ×3 (08:50→17:44)
--- NOTE | 2017-08-16 19:11 | CP.PCM.PN ---
Subjective - Date & Time of Evaluation Date of Evaluation: 08/16/17 Time of Evaluation: 22:22 - Subjective Subjective: Above noted Objective - Vital Signs/Intake and Output Vital Signs (last 24 hours): Temp Pulse Resp BP Pulse Ox 97.6 F 66 20 130/73 95 08/16/17 17:21 08/16/17 17:21 08/16/17 17:21 08/16/17 17:21 08/16/17 17:21 - Medications Medications: Current Medications Acetaminophen (Tylenol 325mg Tab) 650 mg PO Q6 PRN PRN Reason: Pain, moderate (4-7) Last Admin: 07/17/17 17:19 Dose: 650 mg Amantadine HCl (Amantadine 100 Mg Cap) 100 mg PO BID [facility] Last Admin: 08/16/17 17:43 Dose: 100 mg Bethanechol Chloride (Urecholine) 50 mg PO TID [facility] Last Admin: 08/16/17 17:44 Dose: 50 mg Carbidopa/Levodopa (Sinemet Cr) 1 tab PO TID [facility] Last Admin: 08/16/17 17:44 Dose: 1 tab Carbidopa/Levodopa (Sinemet 10/100) 1 tab PO BID [facility] Last Admin: 08/16/17 17:43 Dose: 1 tab Dimethicone (Proshield Plus Skin Protectant) 1 applic TOP Q8 [facility] Last Admin: 08/16/17 17:50 Dose: 1 applic Docusate Sodium (Colace) 100 mg PO BID [facility] Last Admin: 08/16/17 17:43 Dose: 100 mg Famotidine (Pepcid) 40 mg PO DAILY [facility] Last Admin: 08/16/17 08:53 Dose: 40 mg Fluocinonide (Lidex 0.05% Oint) 1 applic TOP BID PRN PRN Reason: Rash Last Admin: 08/07/17 08:44 Dose: 1 applic Nystatin (Nystop Topical Powder) 1 applic TOP TID [facility] Last Admin: 08/16/17 17:44 Dose: 1 applic - Labs Labs: 06/19/17 08:35 06/19/17 08:35 PT 12.6 Seconds (9.8-13.1) 05/18/17 05:30 INR 1.1 (0.9-1.2) 05/18/17 05:30 APTT 34.9 Seconds (25.6-37.1) 05/18/17 05:30 - Respiratory Exam Respiratory Exam: NORMAL BREATHING PATTERN - Cardiovascular Exam Cardiovascular Exam: REGULAR RHYTHM - GI/Abdominal Exam GI & Abdominal Exam: Normal Bowel Sounds Assessment and Plan - Assessment and Plan (Free Text) Assessment: Rash ID appreciated MSA Parkinsons DX Shry Drager Low ext weakness?? Dx progression Fatigue -Meds?? Neuro note appreciated Disposition?? awaiting transfer to [place] Pt has medical decision making capacity but is financially vulnerable and benefits from legal guardianship Court and Social service involved Pt is [place] WW[employer] COPD Bronchodilators Steroids Pulmonary S/P Bradycardia Hypotenson chronic A-fib Sepsis ? Autonomic dysfunction? Thrombocytopenia chronic DVT prophylaxis SCD (no Lovenox due to thrombocytopenia) R shoulder pain Dec ROM xrays subluxation Ultram PRN PT Recuurent c-diff Gastroentritis? resolved LGI bleed Thrombocytopenia Decubitus ulcer buttocks Increased frequency urinating UA CS PVR all wnl Otitis externa Ciprodex
[2017-08-17] MEDS: Proshield Plus GEL TOP SCH ×3 (00:16→17:27)
[2017-08-17] MEDS: Bethanechol 50 MG TAB PO SCH ×3 (08:58→17:26)
[2017-08-17] MEDS: Carbidopa/Levodopa 50/200 CR PO SCH ×3 (08:59→17:27)
--- NOTE | 2017-08-17 14:29 | CP.PCM.PN ---
Subjective - Date & Time of Evaluation Date of Evaluation: 08/17/17 Time of Evaluation: 22:22 - Subjective Subjective: Doing well Objective - Vital Signs/Intake and Output Vital Signs (last 24 hours): Temp Pulse Resp BP Pulse Ox 97.7 F 78 18 143/56 L 98 08/17/17 08:17 08/17/17 08:17 08/17/17 08:17 08/17/17 08:17 08/17/17 08:17 - Medications Medications: Current Medications Acetaminophen (Tylenol 325mg Tab) 650 mg PO Q6 PRN PRN Reason: Pain, moderate (4-7) Last Admin: 07/17/17 17:19 Dose: 650 mg Amantadine HCl (Amantadine 100 Mg Cap) 100 mg PO BID [facility] Last Admin: 08/17/17 08:58 Dose: 100 mg Bethanechol Chloride (Urecholine) 50 mg PO TID [facility] Last Admin: 08/17/17 13:08 Dose: 50 mg Carbidopa/Levodopa (Sinemet Cr) 1 tab PO TID [facility] Last Admin: 08/17/17 13:09 Dose: 1 tab Carbidopa/Levodopa (Sinemet 10/100) 1 tab PO BID [facility] Last Admin: 08/17/17 08:59 Dose: 1 tab Dimethicone (Proshield Plus Skin Protectant) 1 applic TOP Q8 [facility] Last Admin: 08/17/17 09:00 Dose: 1 applic Docusate Sodium (Colace) 100 mg PO BID [facility] Last Admin: 08/17/17 08:59 Dose: 100 mg Famotidine (Pepcid) 40 mg PO DAILY [facility] Last Admin: 08/17/17 08:59 Dose: 40 mg Fluocinonide (Lidex 0.05% Oint) 1 applic TOP BID PRN PRN Reason: Rash Last Admin: 08/07/17 08:44 Dose: 1 applic Nystatin (Nystop Topical Powder) 1 applic TOP TID [facility] Last Admin: 08/17/17 13:08 Dose: 1 applic - Labs Labs: 06/19/17 08:35 06/19/17 08:35 PT 12.6 Seconds (9.8-13.1) 05/18/17 05:30 INR 1.1 (0.9-1.2) 05/18/17 05:30 APTT 34.9 Seconds (25.6-37.1) 05/18/17 05:30 - Respiratory Exam Respiratory Exam: NORMAL BREATHING PATTERN - Cardiovascular Exam Cardiovascular Exam: REGULAR RHYTHM - GI/Abdominal Exam GI & Abdominal Exam: Normal Bowel Sounds Assessment and Plan - Assessment and Plan (Free Text) Assessment: Rash ID appreciated MSA Parkinsons DX Shry Drager Low ext weakness?? Dx progression Fatigue -Meds?? Neuro note appreciated Disposition?? awaiting transfer to [place] Pt has medical decision making capacity but is financially vulnerable and benefits from legal guardianship Court and Social service involved Pt is [place] WWII COPD Bronchodilators Steroids Pulmonary S/P Bradycardia Hypotenson chronic A-fib Sepsis ? Autonomic dysfunction? Thrombocytopenia chronic DVT prophylaxis SCD (no Lovenox due to thrombocytopenia) R shoulder pain Dec ROM xrays subluxation Ultram PRN PT Recuurent c-diff Gastroentritis? resolved LGI bleed Thrombocytopenia Decubitus ulcer buttocks Increased frequency urinating UA CS PVR all wnl Otitis externa Ciprodex
[2017-08-18] MEDS: Proshield Plus GEL TOP SCH ×3 (00:29→16:15)
[2017-08-18] MEDS: Bethanechol 50 MG TAB PO SCH ×3 (08:30→16:21)
[2017-08-18] MEDS: Carbidopa/Levodopa 50/200 CR PO SCH ×3 (08:31→16:13)
--- NOTE | 2017-08-18 20:17 | CP.PCM.PN ---
Subjective - Date & Time of Evaluation Date of Evaluation: 08/18/17 Time of Evaluation: 22:22 - Subjective Subjective: Above noted Objective - Vital Signs/Intake and Output Vital Signs (last 24 hours): Temp Pulse Resp BP Pulse Ox 97.4 F L 59 L 20 102/65 98 08/18/17 16:13 08/18/17 16:13 08/18/17 16:13 08/18/17 16:13 08/18/17 16:13 - Medications Medications: Current Medications Acetaminophen (Tylenol 325mg Tab) 650 mg PO Q6 PRN PRN Reason: Pain, moderate (4-7) Last Admin: 07/17/17 17:19 Dose: 650 mg Amantadine HCl (Amantadine 100 Mg Cap) 100 mg PO BID [facility] Last Admin: 08/18/17 16:21 Dose: 100 mg Bethanechol Chloride (Urecholine) 50 mg PO TID [facility] Last Admin: 08/18/17 16:21 Dose: 50 mg Carbidopa/Levodopa (Sinemet Cr) 1 tab PO TID [facility] Last Admin: 08/18/17 16:13 Dose: 1 tab Carbidopa/Levodopa (Sinemet 10/100) 1 tab PO BID [facility] Last Admin: 08/18/17 16:15 Dose: 1 tab Dimethicone (Proshield Plus Skin Protectant) 1 applic TOP Q8 [facility] Last Admin: 08/18/17 16:15 Dose: 1 applic Docusate Sodium (Colace) 100 mg PO BID [facility] Last Admin: 08/18/17 16:21 Dose: 100 mg Famotidine (Pepcid) 40 mg PO DAILY [facility] Last Admin: 08/18/17 08:30 Dose: 40 mg Fluocinonide (Lidex 0.05% Oint) 1 applic TOP BID PRN PRN Reason: Rash Last Admin: 08/07/17 08:44 Dose: 1 applic Nystatin (Nystop Topical Powder) 1 applic TOP TID [facility] Last Admin: 08/18/17 16:15 Dose: 1 applic - Labs Labs: 06/19/17 08:35 06/19/17 08:35 PT 12.6 Seconds (9.8-13.1) 05/18/17 05:30 INR 1.1 (0.9-1.2) 05/18/17 05:30 APTT 34.9 Seconds (25.6-37.1) 05/18/17 05:30 - Respiratory Exam Respiratory Exam: NORMAL BREATHING PATTERN - Cardiovascular Exam Cardiovascular Exam: REGULAR RHYTHM - GI/Abdominal Exam GI & Abdominal Exam: Normal Bowel Sounds Assessment and Plan - Assessment and Plan (Free Text) Assessment: Rash ID appreciated MSA Parkinsons DX Shry Drager Low ext weakness?? Dx progression Fatigue -Meds?? Neuro note appreciated Disposition?? awaiting transfer to [place] Pt has medical decision making capacity but is financially vulnerable and benefits from legal guardianship Court and Social service involved Pt is [place] WWII COPD Bronchodilators Steroids Pulmonary S/P Bradycardia Hypotenson chronic A-fib Sepsis ? Autonomic dysfunction? Thrombocytopenia chronic DVT prophylaxis SCD (no Lovenox due to thrombocytopenia) R shoulder pain Dec ROM xrays subluxation Ultram PRN PT Recuurent c-diff Gastroentritis? resolved LGI bleed Thrombocytopenia Decubitus ulcer buttocks Increased frequency urinating UA CS PVR all wnl Otitis externa Ciprodex
[2017-08-19] MEDS: Proshield Plus GEL TOP SCH ×3 (00:08→16:04)
[2017-08-19] MEDS: Bethanechol 50 MG TAB PO SCH ×3 (08:51→16:04)
[2017-08-19] MEDS: Carbidopa/Levodopa 50/200 CR PO SCH ×3 (08:52→16:04)
--- NOTE | 2017-08-19 17:07 | CP.PCM.PN ---
Subjective - Date & Time of Evaluation Date of Evaluation: 08/19/17 Time of Evaluation: 22:22 - Subjective Subjective: Rash better Objective - Vital Signs/Intake and Output Vital Signs (last 24 hours): Temp Pulse Resp BP Pulse Ox 97.6 F 71 20 96/58 L 98 08/19/17 16:04 08/19/17 16:04 08/19/17 16:04 08/19/17 16:04 08/19/17 16:04 - Medications Medications: Current Medications Acetaminophen (Tylenol 325mg Tab) 650 mg PO Q6 PRN PRN Reason: Pain, moderate (4-7) Last Admin: 07/17/17 17:19 Dose: 650 mg Amantadine HCl (Amantadine 100 Mg Cap) 100 mg PO BID [facility] Last Admin: 08/19/17 16:04 Dose: 100 mg Bethanechol Chloride (Urecholine) 50 mg PO TID [facility] Last Admin: 08/19/17 16:04 Dose: 50 mg Carbidopa/Levodopa (Sinemet Cr) 1 tab PO TID [facility] Last Admin: 08/19/17 16:04 Dose: 1 tab Carbidopa/Levodopa (Sinemet 10/100) 1 tab PO BID [facility] Last Admin: 08/19/17 16:04 Dose: 1 tab Dimethicone (Proshield Plus Skin Protectant) 1 applic TOP Q8 [facility] Last Admin: 08/19/17 16:04 Dose: 1 applic Docusate Sodium (Colace) 100 mg PO BID [facility] Last Admin: 08/19/17 16:04 Dose: 100 mg Famotidine (Pepcid) 40 mg PO DAILY [facility] Last Admin: 08/19/17 08:53 Dose: 40 mg Fluocinonide (Lidex 0.05% Oint) 1 applic TOP BID PRN PRN Reason: Rash Last Admin: 08/07/17 08:44 Dose: 1 applic Nystatin (Nystop Topical Powder) 1 applic TOP TID [facility] Last Admin: 08/19/17 16:04 Dose: 1 applic - Labs Labs: 06/19/17 08:35 06/19/17 08:35 PT 12.6 Seconds (9.8-13.1) 05/18/17 05:30 INR 1.1 (0.9-1.2) 05/18/17 05:30 APTT 34.9 Seconds (25.6-37.1) 05/18/17 05:30 - Respiratory Exam Respiratory Exam: NORMAL BREATHING PATTERN - Cardiovascular Exam Cardiovascular Exam: REGULAR RHYTHM - GI/Abdominal Exam GI & Abdominal Exam: Normal Bowel Sounds Assessment and Plan - Assessment and Plan (Free Text) Assessment: Rash improved ID appreciated MSA Parkinsons DX Shry Drager Low ext weakness?? Dx progression Fatigue -Meds?? Neuro note appreciated Disposition?? awaiting transfer to [place] Pt has medical decision making capacity but is financially vulnerable and benefits from legal guardianship Court and Social service involved Pt is WW[place] COPD Bronchodilators Steroids Pulmonary S/P Bradycardia Hypotenson chronic A-fib Sepsis ? Autonomic dysfunction? Thrombocytopenia chronic DVT prophylaxis SCD (no Lovenox due to thrombocytopenia) R shoulder pain Dec ROM xrays subluxation Ultram PRN PT Recuurent c-diff Gastroentritis? resolved LGI bleed Thrombocytopenia Decubitus ulcer buttocks Increased frequency urinating UA CS PVR all wnl Otitis externa Ciprodex
[2017-08-20] MEDS: Proshield Plus GEL TOP SCH ×3 (01:48→16:11)
[2017-08-20] MEDS: Bethanechol 50 MG TAB PO SCH ×3 (09:08→16:11)
[2017-08-20] MEDS: Carbidopa/Levodopa 50/200 CR PO SCH ×3 (09:08→16:10)
--- NOTE | 2017-08-20 20:09 | CP.PCM.PN ---
Subjective - Date & Time of Evaluation Date of Evaluation: 08/20/17 Time of Evaluation: 22:22 - Subjective Subjective: Above noted Objective - Vital Signs/Intake and Output Vital Signs (last 24 hours): Temp Pulse Resp BP Pulse Ox 97.5 F L 72 20 136/75 99 08/20/17 15:40 08/20/17 15:40 08/20/17 15:40 08/20/17 15:40 08/20/17 15:40 - Medications Medications: Current Medications Acetaminophen (Tylenol 325mg Tab) 650 mg PO Q6 PRN PRN Reason: Pain, moderate (4-7) Last Admin: 07/17/17 17:19 Dose: 650 mg Amantadine HCl (Amantadine 100 Mg Cap) 100 mg PO BID [facility] Last Admin: 08/20/17 16:10 Dose: 100 mg Bethanechol Chloride (Urecholine) 50 mg PO TID [facility] Last Admin: 08/20/17 16:11 Dose: 50 mg Carbidopa/Levodopa (Sinemet Cr) 1 tab PO TID [facility] Last Admin: 08/20/17 16:10 Dose: 1 tab Carbidopa/Levodopa (Sinemet 10/100) 1 tab PO BID [facility] Last Admin: 08/20/17 16:11 Dose: 1 tab Dimethicone (Proshield Plus Skin Protectant) 1 applic TOP Q8 [facility] Last Admin: 08/20/17 16:11 Dose: 1 applic Docusate Sodium (Colace) 100 mg PO BID [facility] Last Admin: 08/20/17 16:10 Dose: 100 mg Famotidine (Pepcid) 40 mg PO DAILY [facility] Last Admin: 08/20/17 09:08 Dose: 40 mg Fluocinonide (Lidex 0.05% Oint) 1 applic TOP BID PRN PRN Reason: Rash Last Admin: 08/07/17 08:44 Dose: 1 applic Nystatin (Nystop Topical Powder) 1 applic TOP TID [facility] Last Admin: 08/20/17 16:11 Dose: 1 applic - Labs Labs: 06/19/17 08:35 06/19/17 08:35 PT 12.6 Seconds (9.8-13.1) 05/18/17 05:30 INR 1.1 (0.9-1.2) 05/18/17 05:30 APTT 34.9 Seconds (25.6-37.1) 05/18/17 05:30 - Respiratory Exam Respiratory Exam: NORMAL BREATHING PATTERN - Cardiovascular Exam Cardiovascular Exam: Tachycardia, REGULAR RHYTHM - GI/Abdominal Exam GI & Abdominal Exam: Normal Bowel Sounds Assessment and Plan - Assessment and Plan (Free Text) Assessment: Rash improved ID appreciated MSA Parkinsons DX Shry Drager Low ext weakness?? Dx progression Fatigue -Meds?? Neuro note appreciated Disposition?? awaiting transfer to [place] Pt has medical decision making capacity but is financially vulnerable and benefits from legal guardianship Court and Social service involved Pt is WW[employer] COPD Bronchodilators Steroids Pulmonary S/P Bradycardia Hypotenson chronic A-fib Sepsis ? Autonomic dysfunction? Thrombocytopenia chronic DVT prophylaxis SCD (no Lovenox due to thrombocytopenia) R shoulder pain Dec ROM xrays subluxation Ultram PRN PT Recuurent c-diff Gastroentritis? resolved LGI bleed Thrombocytopenia Decubitus ulcer buttocks Increased frequency urinating UA CS PVR all wnl Otitis externa Ciprodex
[2017-08-21] MEDS: Proshield Plus GEL TOP SCH ×3 (00:31→17:28)
[2017-08-21] MEDS: Bethanechol 50 MG TAB PO SCH ×3 (09:18→17:27)
[2017-08-21] MEDS: Carbidopa/Levodopa 50/200 CR PO SCH ×3 (09:18→17:29)
--- NOTE | 2017-08-21 14:39 | CP.PCM.PN ---
Subjective - Date & Time of Evaluation Date of Evaluation: 08/21/17 Time of Evaluation: 22:22 - Subjective Subjective: Above noted Objective - Vital Signs/Intake and Output Vital Signs (last 24 hours): Temp Pulse Resp BP Pulse Ox 97.9 F 61 20 122/67 99 08/21/17 08:03 08/21/17 08:03 08/21/17 08:03 08/21/17 08:03 08/21/17 08:03 - Medications Medications: Current Medications Acetaminophen (Tylenol 325mg Tab) 650 mg PO Q6 PRN PRN Reason: Pain, moderate (4-7) Last Admin: 07/17/17 17:19 Dose: 650 mg Amantadine HCl (Amantadine 100 Mg Cap) 100 mg PO BID [facility] Last Admin: 08/21/17 09:14 Dose: 100 mg Bethanechol Chloride (Urecholine) 50 mg PO TID [facility] Last Admin: 08/21/17 13:05 Dose: 50 mg Carbidopa/Levodopa (Sinemet Cr) 1 tab PO TID [facility] Last Admin: 08/21/17 13:05 Dose: 1 tab Carbidopa/Levodopa (Sinemet 10/100) 1 tab PO BID [facility] Last Admin: 08/21/17 09:17 Dose: 1 tab Dimethicone (Proshield Plus Skin Protectant) 1 applic TOP Q8 [facility] Last Admin: 08/21/17 09:20 Dose: 1 applic Docusate Sodium (Colace) 100 mg PO BID [facility] Last Admin: 08/21/17 09:14 Dose: 100 mg Fluocinonide (Lidex 0.05% Oint) 1 applic TOP BID PRN PRN Reason: Rash Last Admin: 08/07/17 08:44 Dose: 1 applic Nystatin (Nystop Topical Powder) 1 applic TOP TID [facility] Last Admin: 08/21/17 13:03 Dose: 1 applic - Labs Labs: 06/19/17 08:35 06/19/17 08:35 PT 12.6 Seconds (9.8-13.1) 05/18/17 05:30 INR 1.1 (0.9-1.2) 05/18/17 05:30 APTT 34.9 Seconds (25.6-37.1) 05/18/17 05:30 - Respiratory Exam Respiratory Exam: NORMAL BREATHING PATTERN - Cardiovascular Exam Cardiovascular Exam: REGULAR RHYTHM - GI/Abdominal Exam GI & Abdominal Exam: Normal Bowel Sounds Assessment and Plan - Assessment and Plan (Free Text) Assessment: Rash improved ID appreciated MSA Parkinsons DX Shry Drager Low ext weakness?? Dx progression Fatigue -Meds?? Neuro note appreciated Disposition?? awaiting transfer to [place] Pt has medical decision making capacity but is financially vulnerable and benefits from legal guardianship Court and Social service involved Pt is [place] WW[employer] COPD Bronchodilators Steroids Pulmonary S/P Bradycardia Hypotenson chronic A-fib Sepsis ? Autonomic dysfunction? Thrombocytopenia chronic DVT prophylaxis SCD (no Lovenox due to thrombocytopenia) R shoulder pain Dec ROM xrays subluxation Ultram PRN PT Recuurent c-diff Gastroentritis? resolved LGI bleed Thrombocytopenia Decubitus ulcer buttocks Increased frequency urinating UA CS PVR all wnl Otitis externa Ciprodex
[2017-08-22] MEDS: Proshield Plus GEL TOP SCH ×3 (01:19→16:09)
[2017-08-22] MEDS: Carbidopa/Levodopa 50/200 CR PO SCH ×3 (08:24→16:09)
[2017-08-22] MEDS: Bethanechol 50 MG TAB PO SCH ×3 (08:24→16:09)
--- NOTE | 2017-08-22 10:03 | PN ---
DATE: 08/22/2017 SUBJECTIVE: The patient seen and examined. The patient is seen for Dr. Najera. The patient remains in regular medical floor. He feels okay. Denies any specific complaints. No chest pain. No shortness of breath. Cough improved. PHYSICAL EXAMINATION: GENERAL: The patient is in no acute distress. VITAL SIGNS: Stable. HEART: S1 and S2, normal and regular. LUNGS: Good bilateral air exchange. ABDOMEN: Soft and nontender. EXTREMITIES: No edema. No calf swelling. No tenderness. No acute ischemia. CENTRAL NERVOUS SYSTEM: Exam is essentially unchanged. DIAGNOSTIC DATA: Available diagnostic data reviewed. ASSESSMENT AND PLAN: Overall, the patient's general medical condition is stable. The patient is awaiting disposition. Plan as ordered. Rashaun Mendoza MD MTDTristin
[2017-08-23] MEDS: Proshield Plus GEL TOP SCH ×3 (00:44→18:03)
[2017-08-23] MEDS: Carbidopa/Levodopa 50/200 CR PO SCH ×3 (10:08→18:04)
[2017-08-23] MEDS: Bethanechol 50 MG TAB PO SCH ×3 (10:09→18:04)
--- NOTE | 2017-08-23 10:23 | PN ---
DATE: 08/23/2017 SUBJECTIVE: The patient is seen and examined. The patient is seen by . The patient feels okay. No specific complaints. No chest pain. No shortness of breath. He was agitated. PHYSICAL EXAMINATION: GENERAL: The patient is in no acute distress. VITAL SIGNS: Stable. HEART: S1 and S2, normal and regular. LUNGS: Good bilateral air exchange. ABDOMEN: Soft and nontender. EXTREMITIES: No edema. No calf swelling. No tenderness. No acute ischemia. CENTRAL NERVOUS SYSTEM: Exam is essentially unchanged. DIAGNOSTIC DATA: Available diagnostic data reviewed. PLAN: Overall, the patient's general medical condition is stable. Plan as ordered. Rashaun Mendoza MD
[2017-08-24] MEDS: Proshield Plus GEL TOP SCH ×3 (00:48→16:04)
[2017-08-24 08:03] LABS: HEMOGLOBIN 12.4 g/dL (12.0-18.0); MEAN CELL VOLUME 94.7 fl (80.0-94.0); MEAN CORPUSCULAR HEMOGLOBIN 30.6 pg (27.0-31.0); MEAN CORPUSCULAR HGB CONC 32.3 g/dL (33.0-37.0); RBC 4.05 Mil/uL (4.40-5.90); RED CELL DISTRIBUTION WIDTH 15.6 % (11.5-14.5); WHITE BLOOD COUNT 5.8 K/uL (4.8-10.8)
--- NOTE | 2017-08-24 08:09 | PN ---
DATE: 08/24/2017 SUBJECTIVE: The patient is seen and examined. Interim events noted. The patient remains in regular medical floor. The patient is sleepy arousable. Denies any specific medical complaints. PHYSICAL EXAMINATION: GENERAL: The patient is in no acute distress. VITAL SIGNS: Stable. Physical exam is essentially unchanged. DIAGNOSTIC DATA: Available diagnostic data reviewed.: The patient's general medical condition is stable. PLAN: Plan as ordered. Rashaun Mendoza MD
[2017-08-24 08:21] LABS: ALB/GLOB RATIO 1.3 (1.0-2.1); ALBUMIN 3.5 g/dL (3.5-5.0); ALT/SGPT 21 U/L (21-72); AST/SGOT 19 U/L (17-59); BLOOD UREA NITROGEN 19 mg/dl (9-20); CALCIUM 8.9 mg/dL (8.4-10.2); GFR AFRICAN-AMERICAN > 60; GFR NON-AFRICAN AMERICAN > 60
[2017-08-24] MEDS: Carbidopa/Levodopa 50/200 CR PO SCH ×3 (08:27→16:03)
[2017-08-24] MEDS: Bethanechol 50 MG TAB PO SCH ×3 (08:28→16:03)
[2017-08-25] MEDS: Proshield Plus GEL TOP SCH ×3 (01:29→16:09)
[2017-08-25] MEDS: Carbidopa/Levodopa 50/200 CR PO SCH ×3 (08:37→16:09)
[2017-08-25] MEDS: Bethanechol 50 MG TAB PO SCH ×3 (08:38→16:09)
--- NOTE | 2017-08-25 09:49 | PN ---
DATE: 08/25/2017 SUBJECTIVE: The patient is seen and examined. Interim events noted. The patient remains in regular medical floor. The patient is feeling okay and denies any specific complaints. No chest pain or shortness of breath. PHYSICAL EXAMINATION GENERAL: The patient is in no acute distress. VITAL SIGNS: Stable. Physical exam is essentially unchanged. DIAGNOSTIC DATA: Available diagnostic data reviewed. IMPRESSION AND PLAN: The patient's general medical condition is stable. Plan as ordered. Rashaun Mendoza MD
[2017-08-26] MEDS: Proshield Plus GEL TOP SCH ×3 (01:14→17:48)
[2017-08-26] MEDS: Bethanechol 50 MG TAB PO SCH ×3 (09:23→17:47)
[2017-08-26] MEDS: Carbidopa/Levodopa 50/200 CR PO SCH ×3 (09:23→17:47)
--- NOTE | 2017-08-26 21:32 | CP.PCM.PN ---
Subjective - Date & Time of Evaluation Date of Evaluation: 08/26/17 Time of Evaluation: 22:22 - Subjective Subjective: Above noted Objective - Vital Signs/Intake and Output Vital Signs (last 24 hours): Temp Pulse Resp BP Pulse Ox 98.1 F 69 20 115/60 98 08/26/17 16:09 08/26/17 16:09 08/26/17 16:09 08/26/17 16:09 08/26/17 16:09 - Medications Medications: Current Medications Acetaminophen (Tylenol 325mg Tab) 650 mg PO Q6 PRN PRN Reason: Pain, moderate (4-7) Last Admin: 07/17/17 17:19 Dose: 650 mg Amantadine HCl (Amantadine 100 Mg Cap) 100 mg PO BID [facility] Last Admin: 08/26/17 17:47 Dose: 100 mg Bethanechol Chloride (Urecholine) 50 mg PO TID [facility] Last Admin: 08/26/17 17:47 Dose: 50 mg Carbidopa/Levodopa (Sinemet Cr) 1 tab PO TID [facility] Last Admin: 08/26/17 17:47 Dose: 1 tab Carbidopa/Levodopa (Sinemet 10/100) 1 tab PO BID [facility] Last Admin: 08/26/17 17:47 Dose: 1 tab Dimethicone (Proshield Plus Skin Protectant) 1 applic TOP Q8 [facility] Last Admin: 08/26/17 17:48 Dose: 1 applic Docusate Sodium (Colace) 100 mg PO BID [facility] Last Admin: 08/26/17 17:47 Dose: 100 mg Fluocinonide (Lidex 0.05% Oint) 1 applic TOP BID PRN PRN Reason: Rash Last Admin: 08/07/17 08:44 Dose: 1 applic Nystatin (Nystop Topical Powder) 1 applic TOP TID [facility] Last Admin: 08/26/17 17:47 Dose: 1 applic - Labs Labs: 08/24/17 05:50 08/24/17 05:50 PT 12.6 Seconds (9.8-13.1) 05/18/17 05:30 INR 1.1 (0.9-1.2) 05/18/17 05:30 APTT 34.9 Seconds (25.6-37.1) 05/18/17 05:30 - Respiratory Exam Respiratory Exam: NORMAL BREATHING PATTERN - Cardiovascular Exam Cardiovascular Exam: REGULAR RHYTHM - GI/Abdominal Exam GI & Abdominal Exam: Normal Bowel Sounds Assessment and Plan - Assessment and Plan (Free Text) Assessment: Rash improved ID appreciated MSA Parkinsons DX Shry Drager Low ext weakness?? Dx progression Fatigue -Meds?? Neuro note appreciated Disposition?? awaiting transfer to [place] Pt has medical decision making capacity but is financially vulnerable and benefits from legal guardianship Court and Social service involved Pt is [place] WWII COPD Bronchodilators Steroids Pulmonary S/P Bradycardia Hypotenson chronic A-fib Sepsis ? Autonomic dysfunction? Thrombocytopenia chronic DVT prophylaxis SCD (no Lovenox due to thrombocytopenia) R shoulder pain Dec ROM xrays subluxation Ultram PRN PT Recuurent c-diff Gastroentritis? resolved LGI bleed Thrombocytopenia Decubitus ulcer buttocks Increased frequency urinating UA CS PVR all wnl Otitis externa Ciprodex
[2017-08-27] MEDS: Proshield Plus GEL TOP SCH ×3 (01:11→17:15)
[2017-08-27] MEDS: Bethanechol 50 MG TAB PO SCH ×3 (09:13→17:15)
[2017-08-27] MEDS: Carbidopa/Levodopa 50/200 CR PO SCH ×3 (09:14→17:15)
--- NOTE | 2017-08-27 17:28 | CP.PCM.PN ---
Subjective - Date & Time of Evaluation Date of Evaluation: 08/27/17 Time of Evaluation: 22:22 - Subjective Subjective: Above noted Objective - Vital Signs/Intake and Output Vital Signs (last 24 hours): Temp Pulse Resp BP Pulse Ox 97.8 F 83 20 99/63 L 99 08/27/17 16:19 08/27/17 16:19 08/27/17 16:19 08/27/17 16:19 08/27/17 16:19 - Medications Medications: Current Medications Acetaminophen (Tylenol 325mg Tab) 650 mg PO Q6 PRN PRN Reason: Pain, moderate (4-7) Last Admin: 07/17/17 17:19 Dose: 650 mg Amantadine HCl (Amantadine 100 Mg Cap) 100 mg PO BID [facility] Last Admin: 08/27/17 17:15 Dose: 100 mg Bethanechol Chloride (Urecholine) 50 mg PO TID [facility] Last Admin: 08/27/17 17:15 Dose: 50 mg Carbidopa/Levodopa (Sinemet Cr) 1 tab PO TID [facility] Last Admin: 08/27/17 17:15 Dose: 1 tab Carbidopa/Levodopa (Sinemet 10/100) 1 tab PO BID [facility] Last Admin: 08/27/17 17:15 Dose: 1 tab Dimethicone (Proshield Plus Skin Protectant) 1 applic TOP Q8 [facility] Last Admin: 08/27/17 17:15 Dose: 1 applic Docusate Sodium (Colace) 100 mg PO BID [facility] Last Admin: 08/27/17 17:15 Dose: 100 mg Fluocinonide (Lidex 0.05% Oint) 1 applic TOP BID PRN PRN Reason: Rash Last Admin: 08/07/17 08:44 Dose: 1 applic Nystatin (Nystop Topical Powder) 1 applic TOP TID [facility] Last Admin: 08/27/17 17:19 Dose: 1 applic - Labs Labs: 08/24/17 05:50 08/24/17 05:50 PT 12.6 Seconds (9.8-13.1) 05/18/17 05:30 INR 1.1 (0.9-1.2) 05/18/17 05:30 APTT 34.9 Seconds (25.6-37.1) 05/18/17 05:30 - Respiratory Exam Respiratory Exam: NORMAL BREATHING PATTERN - Cardiovascular Exam Cardiovascular Exam: REGULAR RHYTHM - GI/Abdominal Exam GI & Abdominal Exam: Normal Bowel Sounds Assessment and Plan - Assessment and Plan (Free Text) Assessment: MSA Parkinsons DX Shry Drager Low ext weakness?? Dx progression Fatigue -Meds?? Neuro note appreciated Disposition?? awaiting transfer to [place] Pt has medical decision making capacity but is financially vulnerable and benefits from legal guardianship Court and Social service involved Pt is [place] WWII COPD Bronchodilators Steroids Pulmonary S/P Bradycardia Hypotenson chronic A-fib Sepsis ? Autonomic dysfunction? Thrombocytopenia chronic DVT prophylaxis SCD (no Lovenox due to thrombocytopenia) R shoulder pain Dec ROM xrays subluxation Ultram PRN PT Recuurent c-diff Gastroentritis? resolved LGI bleed Thrombocytopenia Decubitus ulcer buttocks Increased frequency urinating UA CS PVR all wnl Otitis externa Ciprodex
[2017-08-28] MEDS: Proshield Plus GEL TOP SCH ×2 (00:51→10:25)
[2017-08-28] MEDS: Carbidopa/Levodopa 50/200 CR PO SCH (10:26)
[2017-08-28] MEDS: Bethanechol 50 MG TAB PO SCH ×2 (10:26→17:26)
[2017-08-28 15:35] LABS: HEMOGLOBIN 12.4 g/dL (12.0-18.0); MEAN CELL VOLUME 94.5 fl (80.0-94.0); MEAN CORPUSCULAR HEMOGLOBIN 30.5 pg (27.0-31.0); MEAN CORPUSCULAR HGB CONC 32.3 g/dL (33.0-37.0); RBC 4.07 Mil/uL (4.40-5.90); RED CELL DISTRIBUTION WIDTH 15.3 % (11.5-14.5); WHITE BLOOD COUNT 4.6 K/uL (4.8-10.8)
[2017-08-28 15:49] LABS: BLOOD UREA NITROGEN 22 mg/dl (9-20); CALCIUM 8.3 mg/dL (8.4-10.2); GFR AFRICAN-AMERICAN > 60; GFR NON-AFRICAN AMERICAN > 60
--- NOTE | 2017-08-28 20:25 | CP.PCM.PN ---
Subjective - Date & Time of Evaluation Date of Evaluation: 08/28/17 Time of Evaluation: 22:22 - Subjective Subjective: Sleeping Objective - Vital Signs/Intake and Output Vital Signs (last 24 hours): Temp Pulse Resp BP Pulse Ox 98.3 F 66 20 93/57 L 96 08/28/17 16:51 08/28/17 16:51 08/28/17 16:51 08/28/17 16:51 08/28/17 16:51 - Medications Medications: Current Medications Acetaminophen (Tylenol 325mg Tab) 650 mg PO Q6 PRN PRN Reason: Pain, moderate (4-7) Amantadine HCl (Amantadine 100 Mg Cap) 100 mg PO BID [facility] Last Admin: 08/28/17 17:24 Dose: 100 mg Benzocaine/Menthol (Cepacol Sore Throat) 1 morro PO Q2 PRN PRN Reason: Sore Throat Last Admin: 08/28/17 14:19 Dose: 1 morro Bethanechol Chloride (Urecholine) 50 mg PO TID [facility] Last Admin: 08/28/17 17:26 Dose: 50 mg Carbidopa/Levodopa (Sinemet 10/100) 1 tab PO BID [facility] Last Admin: 08/28/17 17:26 Dose: 1 tab Carbidopa/Levodopa (Sinemet Cr) 1 tab PO TID [facility] Dimethicone (Proshield Plus Skin Protectant) 1 applic TOP Q8 PRN PRN Reason: Rash Docusate Sodium (Colace) 100 mg PO BID [facility] Last Admin: 08/28/17 17:24 Dose: 100 mg Fluocinonide (Lidex 0.05% Oint) 1 applic TOP BID [facility] Last Admin: 08/28/17 17:24 Dose: 1 u Nystatin (Nystop Topical Powder) 1 applic TOP TID [facility] Last Admin: 08/28/17 17:25 Dose: 1 u - Labs Labs: 08/28/17 14:52 08/28/17 14:52 PT 12.6 Seconds (9.8-13.1) 05/18/17 05:30 INR 1.1 (0.9-1.2) 05/18/17 05:30 APTT 34.9 Seconds (25.6-37.1) 05/18/17 05:30 - Respiratory Exam Respiratory Exam: NORMAL BREATHING PATTERN - Cardiovascular Exam Cardiovascular Exam: REGULAR RHYTHM - GI/Abdominal Exam GI & Abdominal Exam: Normal Bowel Sounds Assessment and Plan - Assessment and Plan (Free Text) Assessment: MSA Parkinsons DX Shry Drager Low ext weakness?? Dx progression Fatigue -Meds?? Neuro note appreciated Disposition?? awaiting transfer to [place] Pt has medical decision making capacity but is financially vulnerable and benefits from legal guardianship Court and Social service involved Pt is [place] COPD Bronchodilators Steroids Pulmonary S/P Bradycardia Hypotenson chronic A-fib Sepsis ? Autonomic dysfunction? Thrombocytopenia chronic DVT prophylaxis SCD (no Lovenox due to thrombocytopenia) R shoulder pain Dec ROM xrays subluxation Ultram PRN PT Recuurent c-diff Gastroentritis? resolved LGI bleed Thrombocytopenia Decubitus ulcer buttocks Increased frequency urinating UA CS PVR all wnl Otitis externa Ciprodex
[2017-08-29] MEDS: Carbidopa/Levodopa 50/200 CR PO SCH ×3 (09:42→18:06)
[2017-08-29] MEDS: Proshield Plus GEL TOP PRN (09:42)
[2017-08-29] MEDS: Bethanechol 50 MG TAB PO SCH ×3 (09:43→18:07)
--- NOTE | 2017-08-29 12:57 | RAD ---
HISTORY: cough COMPARISON: Chest radiograph dated 07/01/2017. FINDINGS: Limited examination due to patient rotation. LUNGS: Stable chronic prominence of the bilateral interstitial markings. Limited evaluation due to patient rotation and obscuration of the right apex by the patient's chin. PLEURA: No significant pleural effusion identified. Limited evaluation for right pneumothorax due to obscuration of the apex by the patient's chin. CARDIOVASCULAR: Atherosclerotic aortic calcifications. Cardiomediastinal silhouette stably enlarged. OSSEOUS STRUCTURES: Unchanged. VISUALIZED UPPER ABDOMEN: Normal. OTHER FINDINGS: None. IMPRESSION: Limited evaluation due to patient rotation/position. Stable chronic prominence of the bilateral interstitial markings. No focal consolidation or pleural effusion within the visualized portions of the lungs.
--- NOTE | 2017-08-29 18:10 | CP.PCM.PN ---
Subjective - Date & Time of Evaluation Date of Evaluation: 08/29/17 Time of Evaluation: 22:22 - Subjective Subjective: Above noted Objective - Vital Signs/Intake and Output Vital Signs (last 24 hours): Temp Pulse Resp BP Pulse Ox 97.8 F 79 20 101/64 95 08/29/17 16:30 08/29/17 16:30 08/29/17 16:30 08/29/17 16:30 08/29/17 16:30 - Medications Medications: Current Medications Acetaminophen (Tylenol 325mg Tab) 650 mg PO Q6 PRN PRN Reason: Pain, moderate (4-7) Amantadine HCl (Amantadine 100 Mg Cap) 100 mg PO BID [facility] Last Admin: 08/29/17 18:05 Dose: 100 mg Benzocaine/Menthol (Cepacol Sore Throat) 1 morro PO Q2 PRN PRN Reason: Sore Throat Last Admin: 08/28/17 14:19 Dose: 1 morro Bethanechol Chloride (Urecholine) 50 mg PO TID [facility] Last Admin: 08/29/17 18:07 Dose: 50 mg Carbidopa/Levodopa (Sinemet 10/100) 1 tab PO BID [facility] Last Admin: 08/29/17 18:06 Dose: 1 tab Carbidopa/Levodopa (Sinemet Cr) 1 tab PO TID [facility] Last Admin: 08/29/17 18:06 Dose: 1 tab Dimethicone (Proshield Plus Skin Protectant) 1 applic TOP Q8 PRN PRN Reason: Rash Last Admin: 08/29/17 09:42 Dose: 1 applic Docusate Sodium (Colace) 100 mg PO BID [facility] Last Admin: 08/29/17 18:06 Dose: 100 mg Fluocinonide (Lidex 0.05% Oint) 1 applic TOP BID [facility] Last Admin: 08/28/17 17:24 Dose: 1 u Nystatin (Nystop Topical Powder) 1 applic TOP TID [facility] Last Admin: 08/29/17 13:56 Dose: 1 u - Labs Labs: 08/28/17 14:52 08/28/17 14:52 PT 12.6 Seconds (9.8-13.1) 05/18/17 05:30 INR 1.1 (0.9-1.2) 05/18/17 05:30 APTT 34.9 Seconds (25.6-37.1) 05/18/17 05:30 - Respiratory Exam Respiratory Exam: NORMAL BREATHING PATTERN - Cardiovascular Exam Cardiovascular Exam: REGULAR RHYTHM - GI/Abdominal Exam GI & Abdominal Exam: Normal Bowel Sounds Assessment and Plan - Assessment and Plan (Free Text) Assessment: MSA Parkinsons DX Shry Drager Low ext weakness?? Dx progression Fatigue -Meds?? Neuro note appreciated Disposition?? awaiting transfer to [place] Pt has medical decision making capacity but is financially vulnerable and benefits from legal guardianship Court and Social service involved Pt is [place] COPD Bronchodilators Steroids Pulmonary S/P Bradycardia Hypotenson chronic A-fib Sepsis ? Autonomic dysfunction? Thrombocytopenia chronic DVT prophylaxis SCD (no Lovenox due to thrombocytopenia) R shoulder pain Dec ROM xrays subluxation Ultram PRN PT Recuurent c-diff Gastroentritis? resolved LGI bleed Thrombocytopenia Decubitus ulcer buttocks Increased frequency urinating UA CS PVR all wnl Otitis externa Ciprodex
[2017-08-30] MEDS: Bethanechol 50 MG TAB PO SCH ×3 (08:54→16:31)
[2017-08-30] MEDS: Carbidopa/Levodopa 50/200 CR PO SCH ×3 (08:54→16:32)
--- NOTE | 2017-08-30 12:33 | CP.PCM.PN ---
Subjective - Date & Time of Evaluation Date of Evaluation: 08/30/17 Time of Evaluation: 12:31 - Subjective Subjective: Recurrent cough w/o chest pain or fever. Presently appears comfortable and cough has subsided. Chest x-ray non-diagnostic; patient rotated. Few scattered rhonchi present, rare dry rales in dependant regions of both lungs. No audible wheezes or bronchial breath sounds. Continue present regimen, but D/C ipratropium to avoid extra anticholinergic side effects. Objective - Vital Signs/Intake and Output Vital Signs (last 24 hours): Temp Pulse Resp BP Pulse Ox 97.6 F 78 18 105/65 97 08/30/17 08:40 08/30/17 08:40 08/30/17 08:40 08/30/17 08:40 08/30/17 08:40 - Medications Medications: Current Medications Acetaminophen (Tylenol 325mg Tab) 650 mg PO Q6 PRN PRN Reason: Pain, moderate (4-7) Albuterol/Ipratropium (Duoneb 3 Mg/0.5 Mg (3 Ml) Ud) 3 ml INH RQ4 [facility] Amantadine HCl (Amantadine 100 Mg Cap) 100 mg PO BID [facility] Last Admin: 08/30/17 08:55 Dose: 100 mg Benzocaine/Menthol (Cepacol Sore Throat) 1 morro PO Q2 PRN PRN Reason: Sore Throat Last Admin: 08/28/17 14:19 Dose: 1 morro Bethanechol Chloride (Urecholine) 50 mg PO TID [facility] Last Admin: 08/30/17 12:16 Dose: 50 mg Carbidopa/Levodopa (Sinemet 10/100) 1 tab PO BID [facility] Last Admin: 08/30/17 08:55 Dose: 1 tab Carbidopa/Levodopa (Sinemet Cr) 1 tab PO TID [facility] Last Admin: 08/30/17 12:16 Dose: 1 tab Dimethicone (Proshield Plus Skin Protectant) 1 applic TOP Q8 PRN PRN Reason: Rash Last Admin: 08/29/17 09:42 Dose: 1 applic Docusate Sodium (Colace) 100 mg PO BID [facility] Last Admin: 08/30/17 08:54 Dose: 100 mg Fluocinonide (Lidex 0.05% Oint) 1 applic TOP BID [facility] Last Admin: 08/30/17 08:54 Dose: 1 u Guaifenesin (Mucinex La) 600 mg PO Q12 [facility] Nystatin (Nystop Topical Powder) 1 applic TOP TID [facility] Last Admin: 08/30/17 08:53 Dose: 1 u - Labs Labs: 08/28/17 14:52 08/28/17 14:52 PT 12.6 Seconds (9.8-13.1) 05/18/17 05:30 INR 1.1 (0.9-1.2) 05/18/17 05:30 APTT 34.9 Seconds (25.6-37.1) 05/18/17 05:30 Assessment and Plan (1) Cough Status: Acute (2) Bronchitis Status: Acute
[2017-08-30] MEDS: Albuterol 0.083% Inhal Sol (2.5 mg/3 mL) UD INH SCH ×3 (13:31→20:30)
[2017-08-30] MEDS: guaiFENesin 600 mg ER Tab PO SCH (21:26)
--- NOTE | 2017-08-30 23:19 | CP.PCM.PN ---
Subjective - Date & Time of Evaluation Date of Evaluation: 08/30/17 Time of Evaluation: 22:22 - Subjective Subjective: Pulmonary note appreciated Objective - Vital Signs/Intake and Output Vital Signs (last 24 hours): Temp Pulse Resp BP Pulse Ox 97.3 F L 84 19 97/49 L 96 08/30/17 16:08 08/30/17 16:08 08/30/17 16:08 08/30/17 16:08 08/30/17 16:08 - Medications Medications: Current Medications Acetaminophen (Tylenol 325mg Tab) 650 mg PO Q6 PRN PRN Reason: Pain, moderate (4-7) Albuterol Sulfate (Albuterol 0.083% Inhal Zamzam (2.5 Mg/3 Ml) Ud) 2.5 mg INH RQID [facility] Last Admin: 08/30/17 20:30 Dose: Not Given Albuterol Sulfate (Albuterol 0.083% Inhal Zamzam (2.5 Mg/3 Ml) Ud) 2.5 mg INH RQ4 PRN PRN Reason: Shortness of Breath Amantadine HCl (Amantadine 100 Mg Cap) 100 mg PO BID [facility] Last Admin: 08/30/17 16:33 Dose: 100 mg Benzocaine/Menthol (Cepacol Sore Throat) 1 morro PO Q2 PRN PRN Reason: Sore Throat Last Admin: 08/28/17 14:19 Dose: 1 morro Bethanechol Chloride (Urecholine) 50 mg PO TID [facility] Last Admin: 08/30/17 16:31 Dose: 50 mg Carbidopa/Levodopa (Sinemet 10/100) 1 tab PO BID [facility] Last Admin: 08/30/17 16:32 Dose: 1 tab Carbidopa/Levodopa (Sinemet Cr) 1 tab PO TID [facility] Last Admin: 08/30/17 16:32 Dose: 1 tab Dimethicone (Proshield Plus Skin Protectant) 1 applic TOP Q8 PRN PRN Reason: Rash Last Admin: 08/29/17 09:42 Dose: 1 applic Docusate Sodium (Colace) 100 mg PO BID [facility] Last Admin: 08/30/17 16:33 Dose: 100 mg Fluocinonide (Lidex 0.05% Oint) 1 applic TOP BID [facility] Last Admin: 08/30/17 16:32 Dose: 1 u Guaifenesin (Mucinex La) 600 mg PO Q12 [facility] Last Admin: 08/30/17 21:26 Dose: 600 mg Nystatin (Nystop Topical Powder) 1 applic TOP TID [facility] Last Admin: 08/30/17 16:32 Dose: 1 u - Labs Labs: 08/28/17 14:52 08/28/17 14:52 PT 12.6 Seconds (9.8-13.1) 05/18/17 05:30 INR 1.1 (0.9-1.2) 05/18/17 05:30 APTT 34.9 Seconds (25.6-37.1) 05/18/17 05:30 - Respiratory Exam Respiratory Exam: Rhonchi, NORMAL BREATHING PATTERN - Cardiovascular Exam Cardiovascular Exam: REGULAR RHYTHM - GI/Abdominal Exam GI & Abdominal Exam: Normal Bowel Sounds Assessment and Plan - Assessment and Plan (Free Text) Assessment: COPD meds adjusted to dec anticholinergic side effects as per Pulmonary MSA Parkinsons DX Shry Drager Low ext weakness?? Dx progression Fatigue -Meds?? Neuro note appreciated Disposition?? awaiting transfer to [place] Pt has medical decision making capacity but is financially vulnerable and benefits from legal guardianship Court and Social service involved Pt is [place] WW[place] S/P Bradycardia Hypotenson chronic A-fib Sepsis ? Autonomic dysfunction? Thrombocytopenia chronic DVT prophylaxis SCD (no Lovenox due to thrombocytopenia) R shoulder pain Dec ROM xrays subluxation Ultram PRN PT Recuurent c-diff Gastroentritis? resolved LGI bleed Thrombocytopenia Decubitus ulcer buttocks Increased frequency urinating UA CS PVR all wnl Otitis externa Ciprodex
[2017-08-31] MEDS: Albuterol 0.083% Inhal Sol (2.5 mg/3 mL) UD INH SCH ×4 (09:22→19:02)
[2017-08-31] MEDS: Bethanechol 50 MG TAB PO SCH ×3 (09:30→17:39)
[2017-08-31] MEDS: Carbidopa/Levodopa 50/200 CR PO SCH ×3 (09:30→17:39)
[2017-08-31] MEDS: guaiFENesin 600 mg ER Tab PO SCH ×2 (09:30→21:34)
--- NOTE | 2017-08-31 15:17 | CP.PCM.PN ---
Subjective - Date & Time of Evaluation Date of Evaluation: 08/31/17 Time of Evaluation: 22:22 - Subjective Subjective: Above noted Objective - Vital Signs/Intake and Output Vital Signs (last 24 hours): Temp Pulse Resp BP Pulse Ox 98 F 92 H 18 102/62 97 08/31/17 08:44 08/31/17 08:44 08/31/17 08:44 08/31/17 08:44 08/31/17 08:44 - Medications Medications: Current Medications Acetaminophen (Tylenol 325mg Tab) 650 mg PO Q6 PRN PRN Reason: Pain, moderate (4-7) Albuterol Sulfate (Albuterol 0.083% Inhal Zamzam (2.5 Mg/3 Ml) Ud) 2.5 mg INH RQID [facility] Last Admin: 08/31/17 12:11 Dose: 2.5 mg Albuterol Sulfate (Albuterol 0.083% Inhal Zamzam (2.5 Mg/3 Ml) Ud) 2.5 mg INH RQ4 PRN PRN Reason: Shortness of Breath Last Admin: 08/31/17 05:11 Dose: 2.5 mg Amantadine HCl (Amantadine 100 Mg Cap) 100 mg PO BID [facility] Last Admin: 08/31/17 09:29 Dose: 100 mg Benzocaine/Menthol (Cepacol Sore Throat) 1 morro PO Q2 PRN PRN Reason: Sore Throat Last Admin: 08/28/17 14:19 Dose: 1 morro Bethanechol Chloride (Urecholine) 50 mg PO TID [facility] Last Admin: 08/31/17 13:13 Dose: 50 mg Carbidopa/Levodopa (Sinemet 10/100) 1 tab PO BID [facility] Last Admin: 08/31/17 09:30 Dose: 1 tab Carbidopa/Levodopa (Sinemet Cr) 1 tab PO TID [facility] Last Admin: 08/31/17 13:13 Dose: 1 tab Dimethicone (Proshield Plus Skin Protectant) 1 applic TOP Q8 PRN PRN Reason: Rash Last Admin: 08/29/17 09:42 Dose: 1 applic Docusate Sodium (Colace) 100 mg PO BID [facility] Last Admin: 08/31/17 09:29 Dose: 100 mg Fluocinonide (Lidex 0.05% Oint) 1 applic TOP BID [facility] Last Admin: 08/31/17 13:14 Dose: 1 u Guaifenesin (Mucinex La) 600 mg PO Q12 [facility] Last Admin: 08/31/17 09:30 Dose: 600 mg Nystatin (Nystop Topical Powder) 1 applic TOP TID [facility] Last Admin: 08/31/17 13:13 Dose: 1 u - Labs Labs: 08/28/17 14:52 08/28/17 14:52 PT 12.6 Seconds (9.8-13.1) 05/18/17 05:30 INR 1.1 (0.9-1.2) 05/18/17 05:30 APTT 34.9 Seconds (25.6-37.1) 05/18/17 05:30 - Respiratory Exam Respiratory Exam: NORMAL BREATHING PATTERN - Cardiovascular Exam Cardiovascular Exam: REGULAR RHYTHM - GI/Abdominal Exam GI & Abdominal Exam: Normal Bowel Sounds Assessment and Plan - Assessment and Plan (Free Text) Assessment: COPD meds adjusted to decrease anticholinergic side effects as per Pulmonary MSA Parkinsons DX Shry Drager Low ext weakness?? Dx progression Fatigue -Meds?? Neuro note appreciated Disposition?? awaiting transfer to [place] Pt has medical decision making capacity but is financially vulnerable and benefits from legal guardianship Court and Social service involved Pt is [place] S/P Bradycardia Hypotenson chronic A-fib Sepsis ? Autonomic dysfunction? Thrombocytopenia chronic DVT prophylaxis SCD (no Lovenox due to thrombocytopenia) R shoulder pain Dec ROM xrays subluxation Ultram PRN PT Recuurent c-diff Gastroentritis? resolved LGI bleed Thrombocytopenia Decubitus ulcer buttocks Increased frequency urinating UA CS PVR all wnl Otitis externa Ciprodex
[2017-09-01] MEDS: Albuterol 0.083% Inhal Sol (2.5 mg/3 mL) UD INH SCH ×4 (08:35→19:18)
[2017-09-01] MEDS: guaiFENesin 600 mg ER Tab PO SCH ×2 (09:45→21:24)
[2017-09-01] MEDS: Carbidopa/Levodopa 50/200 CR PO SCH ×3 (09:48→17:37)
[2017-09-01] MEDS: Bethanechol 50 MG TAB PO SCH ×3 (09:48→17:38)
--- NOTE | 2017-09-01 19:42 | CP.PCM.PN ---
Subjective - Date & Time of Evaluation Date of Evaluation: 09/01/17 Time of Evaluation: 22:22 - Subjective Subjective: Above noted Objective - Vital Signs/Intake and Output Vital Signs (last 24 hours): Temp Pulse Resp BP Pulse Ox 97.6 F 83 20 116/73 98 09/01/17 17:00 09/01/17 16:26 09/01/17 16:26 09/01/17 16:26 09/01/17 16:26 - Medications Medications: Current Medications Acetaminophen (Tylenol 325mg Tab) 650 mg PO Q6 PRN PRN Reason: Pain, moderate (4-7) Albuterol Sulfate (Albuterol 0.083% Inhal Zamzam (2.5 Mg/3 Ml) Ud) 2.5 mg INH RQID [facility] Last Admin: 09/01/17 19:18 Dose: Not Given Albuterol Sulfate (Albuterol 0.083% Inhal Zamzam (2.5 Mg/3 Ml) Ud) 2.5 mg INH RQ4 PRN PRN Reason: Shortness of Breath Last Admin: 08/31/17 05:11 Dose: 2.5 mg Amantadine HCl (Amantadine 100 Mg Cap) 100 mg PO BID [facility] Last Admin: 09/01/17 17:33 Dose: 100 mg Benzocaine/Menthol (Cepacol Sore Throat) 1 morro PO Q2 PRN PRN Reason: Sore Throat Last Admin: 08/28/17 14:19 Dose: 1 morro Bethanechol Chloride (Urecholine) 50 mg PO TID [facility] Last Admin: 09/01/17 17:38 Dose: 50 mg Carbidopa/Levodopa (Sinemet 10/100) 1 tab PO BID [facility] Last Admin: 09/01/17 17:37 Dose: 1 tab Carbidopa/Levodopa (Sinemet Cr) 1 tab PO TID [facility] Last Admin: 09/01/17 17:37 Dose: 1 tab Dimethicone (Proshield Plus Skin Protectant) 1 applic TOP Q8 PRN PRN Reason: Rash Last Admin: 08/29/17 09:42 Dose: 1 applic Docusate Sodium (Colace) 100 mg PO BID [facility] Last Admin: 09/01/17 17:33 Dose: 100 mg Fluocinonide (Lidex 0.05% Oint) 1 applic TOP BID [facility] Last Admin: 09/01/17 17:34 Dose: 1 applic Guaifenesin (Mucinex La) 600 mg PO Q12 [facility] Last Admin: 09/01/17 09:45 Dose: 600 mg Nystatin (Nystop Topical Powder) 1 applic TOP TID [facility] Last Admin: 09/01/17 17:35 Dose: 1 applic - Labs Labs: 08/28/17 14:52 08/28/17 14:52 PT 12.6 Seconds (9.8-13.1) 05/18/17 05:30 INR 1.1 (0.9-1.2) 05/18/17 05:30 APTT 34.9 Seconds (25.6-37.1) 05/18/17 05:30 - Respiratory Exam Respiratory Exam: NORMAL BREATHING PATTERN - Cardiovascular Exam Cardiovascular Exam: REGULAR RHYTHM - GI/Abdominal Exam GI & Abdominal Exam: Normal Bowel Sounds Assessment and Plan - Assessment and Plan (Free Text) Assessment: COPD meds adjusted to decrease anticholinergic side effects as per Pulmonary MSA Parkinsons DX Shry Drager Low ext weakness?? Dx progression Fatigue -Meds?? Neuro note appreciated Disposition?? awaiting transfer to [place] Pt has medical decision making capacity but is financially vulnerable and benefits from legal guardianship Court and Social service involved Pt is [place] S/P Bradycardia Hypotenson chronic A-fib Sepsis ? Autonomic dysfunction? Thrombocytopenia chronic DVT prophylaxis SCD (no Lovenox due to thrombocytopenia) R shoulder pain Dec ROM xrays subluxation Ultram PRN PT Recuurent c-diff Gastroentritis? resolved LGI bleed Thrombocytopenia Decubitus ulcer buttocks Increased frequency urinating UA CS PVR all wnl Otitis externa Ciprodex
[2017-09-02] MEDS: Albuterol 0.083% Inhal Sol (2.5 mg/3 mL) UD INH SCH ×4 (08:09→20:19)
[2017-09-02] MEDS: Bethanechol 50 MG TAB PO SCH ×3 (09:13→16:11)
[2017-09-02] MEDS: guaiFENesin 600 mg ER Tab PO SCH ×2 (09:14→21:54)
[2017-09-02] MEDS: Carbidopa/Levodopa 50/200 CR PO SCH ×3 (09:14→16:11)
--- NOTE | 2017-09-02 20:55 | CP.PCM.PN ---
Subjective - Date & Time of Evaluation Date of Evaluation: 09/02/17 Time of Evaluation: 22:22 - Subjective Subjective: Above noted Objective - Vital Signs/Intake and Output Vital Signs (last 24 hours): Temp Pulse Resp BP Pulse Ox 97.6 F 59 L 20 94/58 L 97 09/02/17 16:16 09/02/17 16:16 09/02/17 16:16 09/02/17 16:16 09/02/17 16:16 - Medications Medications: Current Medications Acetaminophen (Tylenol 325mg Tab) 650 mg PO Q6 PRN PRN Reason: Pain, moderate (4-7) Albuterol Sulfate (Albuterol 0.083% Inhal Zamzam (2.5 Mg/3 Ml) Ud) 2.5 mg INH RQID [facility] Last Admin: 09/02/17 20:19 Dose: Not Given Albuterol Sulfate (Albuterol 0.083% Inhal Zamzam (2.5 Mg/3 Ml) Ud) 2.5 mg INH RQ4 PRN PRN Reason: Shortness of Breath Last Admin: 08/31/17 05:11 Dose: 2.5 mg Amantadine HCl (Amantadine 100 Mg Cap) 100 mg PO BID [facility] Last Admin: 09/02/17 16:10 Dose: 100 mg Benzocaine/Menthol (Cepacol Sore Throat) 1 morro PO Q2 PRN PRN Reason: Sore Throat Last Admin: 08/28/17 14:19 Dose: 1 morro Bethanechol Chloride (Urecholine) 50 mg PO TID [facility] Last Admin: 09/02/17 16:11 Dose: 50 mg Carbidopa/Levodopa (Sinemet 10/100) 1 tab PO BID [facility] Last Admin: 09/02/17 16:11 Dose: 1 tab Carbidopa/Levodopa (Sinemet Cr) 1 tab PO TID [facility] Last Admin: 09/02/17 16:11 Dose: 1 tab Dimethicone (Proshield Plus Skin Protectant) 1 applic TOP Q8 PRN PRN Reason: Rash Last Admin: 08/29/17 09:42 Dose: 1 applic Docusate Sodium (Colace) 100 mg PO BID [facility] Last Admin: 09/02/17 16:10 Dose: 100 mg Fluocinonide (Lidex 0.05% Oint) 1 applic TOP BID [facility] Last Admin: 09/02/17 16:13 Dose: 1 applic Guaifenesin (Mucinex La) 600 mg PO Q12 [facility] Last Admin: 09/02/17 09:14 Dose: 600 mg Nystatin (Nystop Topical Powder) 1 applic TOP TID [facility] Last Admin: 09/02/17 16:13 Dose: 1 applic - Labs Labs: 08/28/17 14:52 08/28/17 14:52 PT 12.6 Seconds (9.8-13.1) 05/18/17 05:30 INR 1.1 (0.9-1.2) 05/18/17 05:30 APTT 34.9 Seconds (25.6-37.1) 05/18/17 05:30 - Respiratory Exam Respiratory Exam: NORMAL BREATHING PATTERN - Cardiovascular Exam Cardiovascular Exam: REGULAR RHYTHM - GI/Abdominal Exam GI & Abdominal Exam: Normal Bowel Sounds Assessment and Plan - Assessment and Plan (Free Text) Assessment: COPD meds adjusted to decrease anticholinergic side effects as per Pulmonary MSA Parkinsons DX Shry Drager Low ext weakness?? Dx progression Fatigue -Meds?? Neuro note appreciated Disposition?? awaiting transfer to [place] Pt has medical decision making capacity but is financially vulnerable and benefits from legal guardianship Court and Social service involved Pt is [place] S/P Bradycardia Hypotenson chronic A-fib Sepsis ? Autonomic dysfunction? Thrombocytopenia chronic DVT prophylaxis SCD (no Lovenox due to thrombocytopenia) R shoulder pain Dec ROM xrays subluxation Ultram PRN PT Recuurent c-diff Gastroentritis? resolved LGI bleed Thrombocytopenia Decubitus ulcer buttocks Increased frequency urinating UA CS PVR all wnl Otitis externa Ciprodex
[2017-09-03] MEDS: Albuterol 0.083% Inhal Sol (2.5 mg/3 mL) UD INH SCH ×4 (08:00→19:22)
[2017-09-03] MEDS: Bethanechol 50 MG TAB PO SCH ×3 (08:59→16:08)
[2017-09-03] MEDS: Carbidopa/Levodopa 50/200 CR PO SCH ×3 (08:59→16:08)
[2017-09-03] MEDS: guaiFENesin 600 mg ER Tab PO SCH ×2 (09:06→21:03)
--- NOTE | 2017-09-03 19:41 | CP.PCM.PN ---
Subjective - Date & Time of Evaluation Date of Evaluation: 09/03/17 Time of Evaluation: 22:22 - Subjective Subjective: Above noted Objective - Vital Signs/Intake and Output Vital Signs (last 24 hours): Temp Pulse Resp BP Pulse Ox 97 F L 57 L 20 106/63 98 09/03/17 17:00 09/03/17 17:00 09/03/17 17:00 09/03/17 17:00 09/03/17 17:00 - Medications Medications: Current Medications Acetaminophen (Tylenol 325mg Tab) 650 mg PO Q6 PRN PRN Reason: Pain, moderate (4-7) Albuterol Sulfate (Albuterol 0.083% Inhal Zamzam (2.5 Mg/3 Ml) Ud) 2.5 mg INH RQID [facility] Last Admin: 09/03/17 19:22 Dose: Not Given Albuterol Sulfate (Albuterol 0.083% Inhal Zamzam (2.5 Mg/3 Ml) Ud) 2.5 mg INH RQ4 PRN PRN Reason: Shortness of Breath Last Admin: 08/31/17 05:11 Dose: 2.5 mg Amantadine HCl (Amantadine 100 Mg Cap) 100 mg PO BID [facility] Last Admin: 09/03/17 16:09 Dose: 100 mg Benzocaine/Menthol (Cepacol Sore Throat) 1 morro PO Q2 PRN PRN Reason: Sore Throat Last Admin: 08/28/17 14:19 Dose: 1 morro Bethanechol Chloride (Urecholine) 50 mg PO TID [facility] Last Admin: 09/03/17 16:08 Dose: 50 mg Carbidopa/Levodopa (Sinemet 10/100) 1 tab PO BID [facility] Last Admin: 09/03/17 16:08 Dose: 1 tab Carbidopa/Levodopa (Sinemet Cr) 1 tab PO TID [facility] Last Admin: 09/03/17 16:08 Dose: 1 tab Dimethicone (Proshield Plus Skin Protectant) 1 applic TOP Q8 PRN PRN Reason: Rash Last Admin: 08/29/17 09:42 Dose: 1 applic Docusate Sodium (Colace) 100 mg PO BID [facility] Last Admin: 09/03/17 16:09 Dose: 100 mg Fluocinonide (Lidex 0.05% Oint) 1 applic TOP BID [facility] Last Admin: 09/03/17 16:08 Dose: 1 applic Guaifenesin (Mucinex La) 600 mg PO Q12 [facility] Last Admin: 09/03/17 09:06 Dose: 600 mg Nystatin (Nystop Topical Powder) 1 applic TOP TID [facility] Last Admin: 09/03/17 16:08 Dose: 1 applic - Labs Labs: 08/28/17 14:52 08/28/17 14:52 PT 12.6 Seconds (9.8-13.1) 05/18/17 05:30 INR 1.1 (0.9-1.2) 05/18/17 05:30 APTT 34.9 Seconds (25.6-37.1) 05/18/17 05:30 - Respiratory Exam Respiratory Exam: NORMAL BREATHING PATTERN - Cardiovascular Exam Cardiovascular Exam: REGULAR RHYTHM - GI/Abdominal Exam GI & Abdominal Exam: Normal Bowel Sounds Assessment and Plan - Assessment and Plan (Free Text) Assessment: COPD meds adjusted to decrease anticholinergic side effects as per Pulmonary MSA Parkinsons DX Shry Drager Low ext weakness?? Dx progression Fatigue -Meds?? Neuro note appreciated Disposition?? awaiting transfer to [place] Pt has medical decision making capacity but is financially vulnerable and benefits from legal guardianship Court and Social service involved Pt is [place] S/P Bradycardia Hypotenson chronic A-fib Sepsis ? Autonomic dysfunction? Thrombocytopenia chronic DVT prophylaxis SCD (no Lovenox due to thrombocytopenia) R shoulder pain Dec ROM xrays subluxation Ultram PRN PT Recuurent c-diff Gastroentritis? resolved LGI bleed Thrombocytopenia Decubitus ulcer buttocks Increased frequency urinating UA CS PVR all wnl Otitis externa Ciprodex
[2017-09-04] MEDS: Albuterol 0.083% Inhal Sol (2.5 mg/3 mL) UD INH SCH ×4 (08:20→20:02)
[2017-09-04] MEDS: Bethanechol 50 MG TAB PO SCH ×3 (08:57→17:21)
[2017-09-04] MEDS: Carbidopa/Levodopa 50/200 CR PO SCH ×3 (08:57→17:21)
[2017-09-04] MEDS: guaiFENesin 600 mg ER Tab PO SCH ×2 (08:58→21:14)
--- NOTE | 2017-09-04 21:30 | CP.PCM.PN ---
Subjective - Date & Time of Evaluation Date of Evaluation: 09/04/17 Time of Evaluation: 22:22 - Subjective Subjective: Above noted Objective - Vital Signs/Intake and Output Vital Signs (last 24 hours): Temp Pulse Resp BP Pulse Ox 97.7 F 65 18 109/55 L 98 09/04/17 16:36 09/04/17 16:36 09/04/17 16:36 09/04/17 16:36 09/04/17 16:36 - Medications Medications: Current Medications Acetaminophen (Tylenol 325mg Tab) 650 mg PO Q6 PRN PRN Reason: Pain, moderate (4-7) Albuterol Sulfate (Albuterol 0.083% Inhal Zamzam (2.5 Mg/3 Ml) Ud) 2.5 mg INH RQID [facility] Last Admin: 09/04/17 20:02 Dose: Not Given Albuterol Sulfate (Albuterol 0.083% Inhal Zamzam (2.5 Mg/3 Ml) Ud) 2.5 mg INH RQ4 PRN PRN Reason: Shortness of Breath Last Admin: 08/31/17 05:11 Dose: 2.5 mg Amantadine HCl (Amantadine 100 Mg Cap) 100 mg PO BID [facility] Last Admin: 09/04/17 17:21 Dose: 100 mg Benzocaine/Menthol (Cepacol Sore Throat) 1 morro PO Q2 PRN PRN Reason: Sore Throat Last Admin: 08/28/17 14:19 Dose: 1 morro Bethanechol Chloride (Urecholine) 50 mg PO TID [facility] Last Admin: 09/04/17 17:21 Dose: 50 mg Carbidopa/Levodopa (Sinemet 10/100) 1 tab PO BID [facility] Last Admin: 09/04/17 17:21 Dose: 1 tab Carbidopa/Levodopa (Sinemet Cr) 1 tab PO TID [facility] Last Admin: 09/04/17 17:21 Dose: 1 tab Dimethicone (Proshield Plus Skin Protectant) 1 applic TOP Q8 PRN PRN Reason: Rash Last Admin: 08/29/17 09:42 Dose: 1 applic Docusate Sodium (Colace) 100 mg PO BID [facility] Last Admin: 09/04/17 17:21 Dose: 100 mg Fluocinonide (Lidex 0.05% Oint) 1 applic TOP BID [facility] Last Admin: 09/04/17 17:22 Dose: 1 applic Guaifenesin (Mucinex La) 600 mg PO Q12 [facility] Last Admin: 09/04/17 21:14 Dose: 600 mg Nystatin (Nystop Topical Powder) 1 applic TOP TID [facility] Last Admin: 09/04/17 17:21 Dose: 1 applic - Labs Labs: 08/28/17 14:52 08/28/17 14:52 PT 12.6 Seconds (9.8-13.1) 05/18/17 05:30 INR 1.1 (0.9-1.2) 05/18/17 05:30 APTT 34.9 Seconds (25.6-37.1) 05/18/17 05:30 - Respiratory Exam Respiratory Exam: NORMAL BREATHING PATTERN - Cardiovascular Exam Cardiovascular Exam: REGULAR RHYTHM - GI/Abdominal Exam GI & Abdominal Exam: Normal Bowel Sounds Assessment and Plan - Assessment and Plan (Free Text) Assessment: COPD meds adjusted to decrease anticholinergic side effects as per Pulmonary MSA Parkinsons DX Shry Drager Low ext weakness?? Dx progression Fatigue -Meds?? Neuro note appreciated Disposition?? awaiting transfer to [place] Pt has medical decision making capacity but is financially vulnerable and benefits from legal guardianship Court and Social service involved Pt is [place] S/P Bradycardia Hypotenson chronic A-fib Sepsis ? Autonomic dysfunction? Thrombocytopenia chronic DVT prophylaxis SCD (no Lovenox due to thrombocytopenia) R shoulder pain Dec ROM xrays subluxation Ultram PRN PT Recuurent c-diff Gastroentritis? resolved LGI bleed Thrombocytopenia Decubitus ulcer buttocks Increased frequency urinating UA CS PVR all wnl Otitis externa Ciprodex
[2017-09-05] MEDS: Albuterol 0.083% Inhal Sol (2.5 mg/3 mL) UD INH SCH ×2 (08:07→11:34)
[2017-09-05 08:08] VITALS: BP 135/81; PULSE 72; RESP 18; TEMP 97.5; O2SAT 97
[2017-09-05] MEDS: guaiFENesin 600 mg ER Tab PO SCH (08:26)
[2017-09-05] MEDS: Carbidopa/Levodopa 50/200 CR PO SCH (08:27)
[2017-09-05] MEDS: Bethanechol 50 MG TAB PO SCH (08:27)
[2017-09-05] MEDS: Proshield Plus GEL TOP PRN (08:28)
--- NOTE | 2017-09-05 11:54 | CP.PCM.PCO ---
Assessment/Plan - Assessment/Plan Assessment (Free Text): Pt stable, in bed, no acute distress noted. Awake and oriented, aware he is to be transported to LTC care today. Respirations are unlabored, lungs diminished breath sounds, heart S1, S2, abdomen soft, positive bowel sounds, moving all extremities. Spoke to Dr. Fernández he is aware patient is to be transported today. Dr. Michael on unit and authorizes discharge to LTC.
[~2017-09-05 12:31] MED LIST: Albuterol 0.083% Inhal Sol (2.5 mg/3 mL) UD INH PRN; Albuterol-Ipratrop 3 mg / 0.5 (3 ml) UD INH PRN; Albuterol-Ipratrop 3 mg / 0.5 (3 ml) UD INH SCH; Albuterol-Ipratrop 3 mg / 0.5 (3 ml) UD INH STA; Alum-Mag Hydrox-Simethicone Susp (30 mL) PO ONE; Anusol Suppository PR PRN; Benzocaine/Menthol (Cepacol) Lozenge PO ONE; Benzocaine/Menthol (Cepacol) Lozenge PO PRN; Bethanechol 50 MG TAB PO ONE; CARBIDOPA PO ONE; CARBIDOPA PO SCH; Carbidopa/Levodopa 50/200 CR PO ONE; Chlorhexidine Gluconate 1 APPL/PKT TP ONE; DOPamine 400mg/250ml D5W 400 MG/250 ML BAG IV ONE; Dextrose 5%/0.45% NS 1,000 ML IV SCH; Dextrose 5%/0.9% NS 1,000 ML IV SCH; Gentamicin 80mg/50ml NS 50 ML IVPB ONE; Hydrogen Peroxide 3% Soln (480ml) TP ONE; Influenza Vaccine 18yr & older 0.5 ML/45 MCG SYR IM ONE; Iodixanol 320 MG/ML 100 ML BOTTLE IV ONE; Iohexol 240 (50 ml) PO ONE; LEVODOPA PO ONE; LEVODOPA PO SCH; Lactated Ringer's 1,000 ML IV SCH; Lactulose 10 gm/15 ml Syrup PO PRN; Lidocaine 5% Patch TD ONE; Magnesium Hydroxide Susp 30 ml UD ONE; Magnesium Hydroxide Susp 30 ml UD PO PRN; Magnesium Oxide 400 mg Tab UD PO SCH; MethylPREDNISolone 40 mg Vial IVP SCH; Mupirocin 2% Cream TOP SCH; Pantoprazole 40 mg EC Tab PO ONE; Potassium Chl 20 mEq in D5-NS 1,000 ML IV SCH; Sodium Chloride 0.45% 500ml 500 ML SOL IV SCH; Sodium Chloride 0.9% 1,000 ML IV SCH; Sodium Chloride 0.9% 50 ML IV ONE; Sodium Chloride 0.9% 500 ML IV ONE; Sodium Chloride 3% for Inhalation 4 ML VIAL.NEB IH PRN; Tuberculin 5 Units/0.1 ml Inj ID ONE; Vancomycin 1 g Inj PO SCH; ceFAZolin 1 GM in Sodium Chloride 0.9% 100 ML IVPB SCH; levoFLOXacin 750 mg in D5W 150 ML BAG IVPB SCH; levoFLOXacin 750 mg in D5W 750 MG/150 ML BAG IVPB SCH; methylPREDNISolone 30 MG in Sodium Chloride 0.9% 50 ML IV SCH; methylPREDNISolone 30 MG in Sodium Chloride 0.9% 50 ML IVPB SCH; methylPREDNISolone 60 MG in Sodium Chloride 0.9% 50 ML IVPB SCH; methylPREDNISolone Depo 80 mg/ml Inj IM ONE
== END | DRG 56 ==
LOC: H.ER 07-10 13:26 → H.ERHOLD 07-10 17:39 → H.MEDSURG1 07-10 19:02 → OBSVTOIN 07-11 14:16 → H.MEDSURG1 07-19 21:20 → H.ICU/CCU 10-21 10:13 → H.MEDSURG1 10-23 18:30 → H.ICU/CCU 02-07 11:48 → H.MEDSURG1 02-11 14:26
PROVIDERS: ADMIT Family Medicine Geriatric Medicine; ATTEND Family Medicine Geriatric Medicine
PROC: 3E0234Z Introduction of Serum, Toxoid and Vaccine into Muscle, Percutaneous Approach (ICD-10-PCS; principal; 2017-02-07)
DX: G90.3 Multi-system degeneration of the autonomic nervous system (principal); J18.9 Pneumonia, unspecified organism; L89.319 Pressure ulcer of right buttock, unspecified stage; A41.9 Sepsis, unspecified organism; L89.329 Pressure ulcer of left buttock, unspecified stage; D69.3 Immune thrombocytopenic purpura; E87.0 Hyperosmolality and hypernatremia; N39.0 Urinary tract infection, site not specified; L03.115 Cellulitis of right lower limb; K62.5 Hemorrhage of anus and rectum; J98.11 Atelectasis; J44.0 Chronic obstructive pulmonary disease with (acute) lower respiratory infection; L02.419 Cutaneous abscess of limb, unspecified; L03.119 Cellulitis of unspecified part of limb; D69.6 Thrombocytopenia, unspecified; G20 Parkinson's disease; E86.0 Dehydration; Z91.81 History of falling; I48.2 Chronic atrial fibrillation; F32.9 Major depressive disorder, single episode, unspecified; I10 Essential (primary) hypertension; Z88.0 Allergy status to penicillin; M06.9 Rheumatoid arthritis, unspecified; I87.2 Venous insufficiency (chronic) (peripheral); B02.9 Zoster without complications; M62.81 Muscle weakness (generalized); L40.9 Psoriasis, unspecified; M25.551 Pain in right hip; S43.004A Unspecified dislocation of right shoulder joint, initial encounter; W19.XXXA Unspecified fall, initial encounter; Y93.9 Activity, unspecified; Y92.009 Unspecified place in unspecified non-institutional (private) residence as the place of occurrence of the external cause; B96.4 Proteus (mirabilis) (morganii) as the cause of diseases classified elsewhere; B95.2 Enterococcus as the cause of diseases classified elsewhere; R09.02 Hypoxemia; E86.1 Hypovolemia; L60.2 Onychogryphosis; K59.00 Constipation, unspecified; F43.22 Adjustment disorder with anxiety; D64.9 Anemia, unspecified; M19.012 Primary osteoarthritis, left shoulder; M19.011 Primary osteoarthritis, right shoulder; E03.9 Hypothyroidism, unspecified; F02.80 Dementia in other diseases classified elsewhere, unspecified severity, without behavioral disturbance, psychotic disturbance, mood disturbance, and anxiety; K52.9 Noninfective gastroenteritis and colitis, unspecified; E11.9 Type 2 diabetes mellitus without complications; M25.511 Pain in right shoulder; I95.2 Hypotension due to drugs; T50.995A Adverse effect of other drugs, medicaments and biological substances, initial encounter; Y92.239 Unspecified place in hospital as the place of occurrence of the external cause; H40.9 Unspecified glaucoma; Z23 Encounter for immunization; D63.8 Anemia in other chronic diseases classified elsewhere; F03.90 Unspecified dementia, unspecified severity, without behavioral disturbance, psychotic disturbance, mood disturbance, and anxiety; H60.90 Unspecified otitis externa, unspecified ear; I11.9 Hypertensive heart disease without heart failure; M19.90 Unspecified osteoarthritis, unspecified site; Z74.01 Bed confinement status; Z79.899 Other long term (current) drug therapy; Z87.01 Personal history of pneumonia (recurrent); Z87.440 Personal history of urinary (tract) infections; Z90.49 Acquired absence of other specified parts of digestive tract; F41.9 Anxiety disorder, unspecified; R33.9 Retention of urine, unspecified; R00.1 Bradycardia, unspecified
CPT/HCPCS: G0378; G8978-GP-CJ; G8978-GP-CK; G8978-GP-CL; G8978-GP-CM; G8979-GP-CH; G8979-GP-CJ; G8979-GP-CK; G8979-GP-CL; G8980-GP-CJ; G8980-GP-CK; G8980-GP-CL; G8980-GP-CM; G8987-GO-CJ; G8987-GO-CK; G8987-GO-CN; G8988-GO-CJ; G8988-GO-CM; G8989-GO-CJ; G8989-GO-CN; G8996-GN-CI; G8996-GN-CK; G8997-GN-CI; G8997-GN-CJ; G8998-GN-CI; Q9967